=== PATIENT | female | born 1960 | race American Indian/Alaskan Native ===

== ENCOUNTER 2016-06-13 09:13 | Inpatient (IN) | payer MEDICARE ==
[~2016-06-13 09:13] MED LIST: CATHFLO 20 MG in NACL 0.9% 500 ML 500 ML EKOSDLUMEN SCH; HEPARIN/ 0.45% NACL-25,000 UNIT/500 ML 500 ML SHEATH SCH; NACL 0.9% 1000 ML 1,000 ML EKOSCLUMEN SCH; NACL 0.9% 1000 ML 1,000 ML SHEATH SCH
[2016-06-13 10:09] LABS: Basophils % (Auto) 0.7 % (0.0-1.8); Eosinophils % (Auto) 3.5 % (0.0-4.3); Hemoglobin 12.1 gm/dl (10.1-14.3); Mean Corpuscular HGB Conc 32 % (30-34); Mean Corpuscular Volume 80 fl (79-97); Platelet Count 254 K/mm3 (140-440); Red Blood Count 4.78 M/mm3 (3.65-5.03); Red Cell Distribution Width 15.8 % (13.2-15.2)
[2016-06-13 10:12] LABS: Anion Gap 17 mmol/L; BUN/Creatinine Ratio 16.25; Blood Urea Nitrogen 13 mg/dL (7-17); Calcium 10.3 mg/dL (8.4-10.2); Carbon Dioxide 30 mmol/L (22-30); Chloride 99.9 mmol/L (98-107); Glucose 93 mg/dL (65-100); Potassium 3.7 mmol/L (3.6-5.0); Sodium 143 mmol/L (137-145)
[2016-06-13 10:13] LABS: Mean Corpuscular Hemoglobin 25 pg (28-32)
[2016-06-13] MEDS: NACL 0.9% 1000 ML 1,000 ML IV SCH (10:15)
[2016-06-13 10:17] LABS: INR 0.92 (0.87-1.13)
[2016-06-13] MEDS ORDERED: HEPARIN 10,000 UNITS/10 ML ONE ×2 (10:42→11:10)
[2016-06-13] MEDS ORDERED: HEPARIN/NS 5000 UNIT/500ML(CATH LAB) 1,000 ML IR ONE (10:42)
[2016-06-13] MEDS ORDERED: XYLOCAINE 1%/ EPI 1:100,000 INFILTRATI ONE (10:43)
[2016-06-13] MEDS ORDERED: ANCEF/STERILE WATER 2 GM/20 ML 20 ML IV ONE (10:43)
[2016-06-13] MEDS ORDERED: NORCO 5/325 PO PRN (10:46)
[2016-06-13] MEDS ORDERED: ZOFRAN IV PRN (10:46)
[2016-06-13] MEDS ORDERED: MORPHINE IV PRN ×2 (10:46)
[2016-06-13] MEDS ORDERED: WATER FOR INJ (PF) 10 ML ONE (10:59)
[2016-06-13] MEDS ORDERED: CATHFLO ONE ×2 (10:59→11:24)
[2016-06-13] MEDS: VERSED ONE ×2 (11:00→11:08)
[2016-06-13] MEDS: SUBLIMAZE ONE ×2 (11:00→11:08)
--- NOTE | 2016-06-13 11:43 | Consultation ---
History of Present Illness Consult date: 06/13/16 Requesting physician: ELSA JEREZ History of present illness: PULMONARY/CCM CONSULT NOTE (Full dictation # [id number]) Please see dictated notes for full details Medications and Allergies Allergies Allergy/AdvReac Type Severity Reaction Status Date / Time No Known Allergies Allergy Verified 01/24/15 14:51 Home Medications Medication Instructions Recorded Confirmed Last Taken Type Aspirin EC [Aspirin Enteric Coated 81 mg PO QDAY 01/25/15 06/13/16 06/13/16 History TAB] Atenolol/Chlorthalidone 1 each PO DAILY 01/25/15 06/13/16 06/13/16 History [Atenolol-Chlorthalidone 50-25] Clopidogrel [Plavix] 75 mg PO QDAY 01/25/15 06/13/16 06/13/16 History Ergocalciferol [Vitamin D2] 1 cap PO QWEEK 01/25/15 06/13/16 06/09/16 History Gabapentin [Neurontin] 300 mg PO Q8H 01/25/15 06/13/16 06/13/16 History Potassium Chloride 10 meq PO QDAY 01/25/15 06/13/16 06/13/16 History Active Meds: Active Medications Acetaminophen/Hydrocodone Bitart ([place] 5/325) 2 each PO Q6H PRN PRN Reason: Pain, Moderate (4-6) Aspirin (Halfprin Ec) 81 mg PO QDAY ANNA Atenolol (Tenormin) 50 mg PO QDAY ANNA Chlorthalidone (Thalitone) 25 mg PO QDAY ANNA Clopidogrel Bisulfate (Plavix) 75 mg PO QDAY ANNA Ergocalciferol (Vitamin D2) unit PO QWEEK ANNA Gabapentin (Neurontin) 300 mg PO Q8H ANNA Heparin Sodium/Sodium Chloride (Heparin/ 0.45% Nacl-25,000 Unit/500 Ml) 500 mls @ 10 mls/hr SHEATH DIRECT ANNA; 500 UNITS/HR PRN Reason: Protocol Sodium Chloride (Nacl 0.9) 1,000 mls @ 30 mls/hr IV DIRECT ANNA Last Admin: 06/13/16 10:15 Dose: 30 mls/hr Sodium Chloride (Nacl 0.9) 1,000 mls @ 30 mls/hr SHEATH DIRECT ANNA Sodium Chloride (Nacl 0.9) 1,000 mls @ 35 mls/hr EKOSCLUMEN DIRECT ANNA Alteplase, Recombinant 20 mg/ (Sodium Chloride) 500 mls @ 25 mls/hr EKOSDLUMEN DIRECT ANNA Morphine Sulfate (Morphine) 2 mg IV Q4H PRN PRN Reason: Pain, Moderate (4-6) Morphine Sulfate (Morphine) 4 mg IV Q4H PRN PRN Reason: Pain , Severe (7-10) Ondansetron HCl (Zofran) 4 mg IV Q8H PRN PRN Reason: Nausea And Vomiting Potassium Chloride (K-Dur) 10 meq PO QDAY ANNA Physical Examination Vital signs: Vital Signs Temp Pulse Resp BP Pulse Ox 98.4 F 82 18 147/87 100 06/13/16 09:35 06/13/16 09:35 06/13/16 09:35 06/13/16 09:35 06/13/16 09:35 Results - Laboratory Findings CBC and BMP: 06/14/16 10:18 06/13/16 09:45 PT/INR, D-dimer PT 12.3 Sec. (12.2-14.9) 06/13/16 09:45 INR 0.92 (0.87-1.13) 06/13/16 09:45 Abnormal lab findings: Abnormal Labs 06/13/16 06/13/16 06/13/16 09:45 09:45 09:45 MCH 25 L RDW 15.8 H Rooks % (Auto) 8.1 H Fibrinogen 522 H Calcium 10.3 H
--- NOTE | 2016-06-13 12:02 | Event Note ---
Date: 06/13/16 The patient was brought into the yard labor supervisor for acute ischemia and possible thrombolysis of her LLE. Arteriogram demonstrated occlusion of her common femoral artery and SFA. I was unable to cross the lesion so she will require a left femoral endarterectomy and Femoral artery to popliteal artery bypass. She will be admitted for pain control and cardiac clearance.
[2016-06-13] MEDS ORDERED: HEPARIN ONE (12:49)
[2016-06-13] MEDS ORDERED: NACL ONE (12:49)
--- NOTE | 2016-06-13 13:50 | Admit Criteria Form ---
Admission Criteria Documentation: AMBULATORY SURGERY EXCEPTION CRITERIA Ambulatory Surgery Exception Criteria ( Place 'X' for any and all applicable criteria): Surgery or procedure performed on ambulatory basis may require inpatient stay for[A] ANY ONE of the following(1)(2)(3)(4)(5)(6)(7)(8)(9): [] I. A preoperative situation, condition, or finding that warrants inpatient stay as indicated by ANY ONE of the following: [] a) Inpatient care needed because of severity of a disease or condition rather than the surgery (eg, severe cardiac or respiratory disease, severe infection) (15) (16 ) (17) (18) [] b) Emergent procedure (eg, angioplasty for acute ischemia)(19) [] c) Complex surgical approach or situation as indicated by ANY ONE of the following(3): [] i) Open approach needed instead of usual endoscopic, transcatheter, or other less invasive procedure [] ii) Difficult approach because of previous operation [] iii) Airway monitoring required after open neck procedures(20)(21) [] iv) Large mass requiring unusually extensive dissection [] v) Additional complicating feature requiring inpatient care (eg, drain management)(22(23): [] d) Major surgery in a pt with high anesthetic risk as indicated by ANY ONE of the following (2)(3)(5)(7)(8): [] i) ASA risk class III or higher (severe systemic disease impairing function) [D] [] ii) Advanced age (eg, older than 85 years)(14)(24) [] iii) Symptomatic heart failure(25) [] iv) Symptomatic asthma or COPD(8)(21) [] v) Morbid obesity with hemodynamic or respiratory problems(20)( 21)(26)(27) [] vi) Obstructive sleep apnea(20)(21) [] vii) Former premature infants who are younger than 60 weeks [] viii) High risk for severe postoperative abnormalities (eg, severe postoperative hypocalcemia after parathyroidectomy for severe hyperparathyroidism)(27)( 28) [] ix) Unstable angina(25) [] e) Drug-related risk requiring inpatient stay as indicated by ANY ONE of the following(5)(10)(14)(32)(33) [] i) Procedure requires discontinuing drugs or other therapy (eg , antiarrhythmic medication, antiseizure medication), which necessitates inpatient observation or treatment.(18)(31) [] ii) Major surgery and high risk drug use as indicated by ANY ONE of the following: [] 1) Active abuse of cocaine or similar drug [] 2) Monoamine oxidase inhibitor use [] 3) Other drug identified as posing risk [] f) Inadequate outpatient care situation as indicated by ANY ONE of the following(5)(10)(14)(32)(33) [] i) Patient lives remote from medical facility and procedure has urgent complication potential, and temporary nearby residence cannot be arranged [] ii) Patient will have postprocedure incapacitation and inadequate assistance at home, or alternative level of care cannot be arranged. [] iii) Patient will have long general anesthesia or procedure side effect resolution time, and competent person to stay with patient on first postoperative night at home or alternative level of care cannot be arranged. []iv) Other inadequate outpatient situation that cannot be handled by other means [X] II. A perioperative event, condition, or finding that warrants inpatient stay as indicated by ANY ONE of the following (1)(2)(3): [] a) Inadequate physiologic recovery: cardiovascular, respiratory, or hemodynamic status not normal or near preoperative baseline(18) [] b) Hemodynamic instability [] c) Patient not alert with near normal or baseline mental status [] d) Temperature not normal or as expected and not appropriate for outpatient treatment of condition [] e) Ambulatory or appropriate activity level status not yet achieved post procedure [E](34)(35)(36) [] f) Operative site not appropriate (eg, unexpected or excessive drainage or bleeding) [] g) Postoperative effects not resolved or adequately managed (eg, significant pain or vomiting not appropriate for outpatient or next level of care)(10)(12) [X] h) Complicating features requiring inpatient care as indicated by ANY ONE of the following(37): [] i) Severe complications of procedure (eg, bowel injury, airway compromise, vascular injury,severe hemorrhage) [] ii) Extensive (eg, dissection far beyond usual scope of procedure ) or prolonged (eg, 120 minutes beyond usual) surgery needed requiring inpatient postoperative care [] iii) Conversion to an open or complex procedure that requires inpatient care (eg, open vs laparoscopic cholecystectomy, abdominal vs vaginal hysterectomy)(38) [] iv) Comorbid condition or test result identified during or post procedure that requires inpatient care (7) [] v) Malignant hyperthermia(30) [X] vi) Other complicating feature requiring inpatient care(22)(23) Inpatient stay may be needed until ALL of the following are present (1)(2)(3)(4) (5)(6)(10)(14)(33)(40): []a) Physiologic recovery: cardiovascular, respiratory, and hemodynamic status normal or near preoperative baseline []b) Hemodynamic stability []c) Patient alert, with near normal or baseline mental status []d) Temperature appropriate: patient afebrile or temperature appropriate for outpt treatment of condition []e) Activity level appropriate: ambulatory or appropriate activity level post procedure []f) Operative site appropriate as indicated by ALL of the following: []i) Site dry or with expected drainage []ii) Any blood noted is as expected for procedure. []g) Postoperative effects resolved or managed as indicated by ALL of the following: []i) Pain management appropriate for outpatient (or next level of) care(10) []ii) Minimal nausea and vomiting: if present, successfully treated with oral medication(12) []iii) Headache, dizziness, or drowsiness (if present) are mild. []h) Voiding status acceptable as indicated by ANY ONE of the following: []i) Voiding spontaneously []ii) No voiding but instructions given for follow-up in 6 to 8 hours []iii) Urinary catheter in place, and instructions given for follow-up []i) Complicating features requiring inpatient care manageable at a lower level of care(37) []j) Comorbid conditions manageable at a lower level of care(37) The original [facility] content created by [facility] has been revised. The portions of the content which have been revised are identified through the use of italic text or in bold, and [facility] [employer] has neither reviewed nor approved the modified material. All other unmodified content is copyright [facility]. Please see references footnoted in the original [facility] edition 2016 Admission Criteria Met: Yes
[2016-06-13] MEDS: HEPARIN/ 0.45% NACL-25,000 UNIT/500 ML 500 ML IV SCH (14:01)
--- NOTE | 2016-06-13 15:10 | Operative Report ---
Operative Report Operative Report: Date of Procedure: 06/13/2016 Pre-operative Diagnosis: Acute Left Lower Extremity Ischemia Post-operative Diagnosis: Same Procedure(s): 1. Ultrasound-Guided Access Right Common Femoral Artery 2. Diagnostic Aortogram with Left Lower Excision of Any Runoff (No Previous Films for Comparison) 3. First Order Catheter Placement 4. Closure of Right Femoral Arteriotomy with Pro-[place] Closure Device 5. Radiologic Supervision with Interpretation Surgeon: Jose Angel Mckoy M.D. Director Speech Language: None Anesthesia: Local and IV sedation EBL: Minimal Counts: Correct Complications: None Condition: Stable Specimen: None Indication: The patient is a 55-year-old female with a history of peripheral vascular disease and previous intervention of bilateral lower extremities. She presented with complaints of rest pain and had an ultrasound that demonstrated occlusion of her external iliac and common femoral artery on the left with an KYLAH of 0.2. She was offered an arteriogram with possible intervention. She was given the risks, benefits, and alternative procedures and consented to the procedure. Angiographic Findings: The aortogram demonstrated the aorta is widely patent and bilateral common iliac arteries widely patent. The patient's left hypogastric artery and proximal external iliac artery were widely patent. The distal extremity leg artery and common femoral artery were occluded with reconstitution of flow in the profunda artery through collaterals. The proximal SFA reconstituted however there was a string sign and a previously placed stent in the SFA was occluded. There was reconstitution of flow and the above-knee popliteal artery. The patient had two-vessel runoff through peroneal and anterior tibial artery that appeared to be widely patent down to the foot. Description of Procedure: The patient was brought to the clinical lab specialist and laid in supine position. After she was adequately sedated her right groin was prepped and draped in normal sterile fashion. Ultrasound was used to identify the right common femoral artery and the overlying skin and soft tissue was anesthetized with lidocaine. A small stab incision was made and then a micropuncture needle was used to access the artery under ultrasound guidance. The needle was removed and a micropuncture sheath was placed and then the 035 Bentson wire was advanced into the aorta under fluoroscopy. A 5 [place] sheath was then placed by Seldinger technique. An Omni Flush catheter was advanced into the aorta and aortogram was performed. A Bentson wire was used with Omni Flush catheter advanced over the bifurcation and the left lower extremity arteriogram was performed with the previously described findings. I advanced a 035 Amplatz wire into the distal external iliac artery and placed a 7 x 45 cm destination sheath by Seldinger technique. At this point the patient was systemically heparinized with heparin IV. I made multiple attempts with various catheters and wires to traverse the occluded common femoral artery without success. At this point decided to abort the procedure with the plan to perform a femoral endarterectomy and possible femoropopliteal bypass. The sheath was pulled back into the right external iliac artery and the Rodriguez wire was advanced to the aorta. A Pro-glide closure device was then used to close the right femoral arteriotomy. The patient tolerated the procedure well. All sponge, needle, instrument counts were correct. The patient was taken to recovery in stable condition.
--- NOTE | 2016-06-13 16:16 | XRay Report ---
Chest 2 views: History: Preop. Findings: Normal cardiomediastinal silhouette. Trachea is midline. No consolidation, pneumothorax or pleural effusion. Impression: No acute cardiopulmonary findings.
[2016-06-13] MEDS: NEURONTIN PO SCH ×2 (20:01→21:56)
[2016-06-13 20:53] LABS: Hematocrit 34.7 % (30.3-42.9); Hemoglobin 11.1 gm/dl (10.1-14.3)
[2016-06-13 21:47] LABS: Partial Thromboplastin Time 103.8 Sec. (24.2-36.6)
[2016-06-14] MEDS: NEURONTIN PO SCH ×3 (06:30→20:24)
[2016-06-14] MEDS ORDERED: NON-FORMULARY (Potassium Chloride [Potassium Chloride] 10 MEQ) PO SCH (10:00)
[2016-06-14] MEDS ORDERED: ATENOLOL PO SCH (10:00)
[2016-06-14] MEDS ORDERED: CHLORTHALIDONE PO SCH (10:00)
[2016-06-14] MEDS: TENORMIN PO SCH (10:38)
[2016-06-14] MEDS: PLAVIX PO SCH (10:38)
[2016-06-14] MEDS: HALFPRIN EC PO SCH (10:38)
[2016-06-14] MEDS: K-DUR PO SCH (10:38)
[2016-06-14] MEDS: THALITONE PO SCH (10:38)
[2016-06-14 11:02] LABS: Basophils % (Auto) 0.4 % (0.0-1.8); Eosinophils % (Auto) 1.6 % (0.0-4.3); Hemoglobin 10.1 gm/dl (10.1-14.3); Mean Corpuscular HGB Conc 33 % (30-34); Mean Corpuscular Hemoglobin 26 pg (28-32); Mean Corpuscular Volume 80 fl (79-97); Platelet Count 224 K/mm3 (140-440); Red Blood Count 3.89 M/mm3 (3.65-5.03); Red Cell Distribution Width 15.8 % (13.2-15.2); White Blood Count 8.8 K/mm3 (4.5-11.0)
--- NOTE | 2016-06-14 11:04 | Event Note ---
Date: 06/14/16 full consult dictated thanks
[2016-06-14] MEDS: HEPARIN/ 0.45% NACL-25,000 UNIT/500 ML 500 ML IV SCH ×3 (11:26→23:10)
[2016-06-14] MEDS: NACL 0.9% 1000 ML 1,000 ML IV SCH (11:28)
--- NOTE | 2016-06-14 11:34 | Progress Note ---
Assessment and Plan - Patient Problems (1) Peripheral vascular disease of extremity Current Visit: Yes Status: Acute Plan to address problem: - tentative surgery im am - s/p stress testing and cardiac clearance - will follow post-op Subjective Date of service: 06/14/16 Principal diagnosis: Peripheral Vascular Disease; Acute Limb Ischemia Interval history: Seen and examined at bedside; 24 hr events reviewed; nursing and respiratory care staff consulted; no adverse overnight events reported to me; resting peacefully in bed; denies acute chest pains or increased SOB; left leg pain better Objective Vital Signs - 12hr 06/14/16 06/14/16 06/14/16 00:00 04:55 08:40 Temperature 98.4 F 98.1 F Pulse Rate 84 Pulse Rate [ Left Radial] Pulse Rate [ 95 H 83 Right Radial] Respiratory 18 18 Rate Blood Pressure 105/68 118/67 [Left Arm] O2 Sat by Pulse 98 99 Oximetry 06/14/16 09:00 Temperature 98.5 F Pulse Rate Pulse Rate [ 96 H Left Radial] Pulse Rate [ Right Radial] Respiratory 18 Rate Blood Pressure [Left Arm] O2 Sat by Pulse 97 Oximetry Constitutional: no acute distress Eyes: non-icteric ENT: oropharynx moist Neck: supple, no lymphadenopathy Effort: normal Ascultation: Bilateral: rhonchi (posterior bases) Cardiovascular: regular rate and rhythm Gastrointestinal: normoactive bowel sounds, soft Integumentary: normal Extremities: no cyanosis, no edema, no ischemia or petechiae Neurologic: normal mental status, non-focal exam (grossly), pupils equal and round Psychiatric: mood appropriate, affect normal CBC and BMP: 06/15/16 04:43 06/13/16 09:45 ABG, PT/INR, D-dimer: PT/INR, D-dimer PT 13.1 Sec. (12.2-14.9) 06/13/16 20:14 INR 1.00 (0.87-1.13) 06/13/16 20:14 Abnormal lab findings: Abnormal Labs 06/13/16 06/13/16 06/13/16 09:45 09:45 09:45 MCH 25 L RDW 15.8 H [place] % (Auto) 8.1 H APTT Fibrinogen 522 H Heparin Anti-Xa Level POC Glucose Calcium 10.3 H 06/13/16 06/13/16 06/14/16 20:14 20:15 07:44 MCH RDW [place] % (Auto) APTT 103.8 H* Fibrinogen Heparin Anti-Xa Level 0.72 H POC Glucose 106 H Calcium 06/14/16 10:18 MCH 26 L RDW 15.8 H [place] % (Auto) 9.1 H APTT Fibrinogen Heparin Anti-Xa Level POC Glucose Calcium Chest x-ray: image reviewed
--- NOTE | 2016-06-14 12:04 | Progress Note ---
Assessment and Plan 55-year-old female with left lower extremity severe peripheral vascular disease. Had a few bleeding episodes from right groin access site. Hematoma expressed. Pressure held. No further bleeding. Pressure dressing applied. Keep flat for 6 hours. Can restart heparin. H&H slight decrease. Discussed possible surgery with the patient for Thursday. Subjective Date of service: 06/14/16 Principal diagnosis: Ischemia of the LLE Interval history: Left lower extremity is viable. Patient denies rest pain, and has no gangrene or ulcers of the left lower extremity. She has extremely short distance claudication, but no rest pain. Patient had 3 bleeding episodes from her right groin after angiography. The first 2 episodes, nursing held pressure for 10 minutes and subsequently 15 minutes. I was not notified. Patient had an episode of bleeding at 3-4 am. Told nursing to stop heparin drip , hold firm pressure for 20 minutes, keep patient supine, and apply pressure dressing. She had no further bleeding. Evaluated patient this morning. Evaluated groin. No pseudoaneurysm. Hematoma noted which was expressed. Pressure held for 10 minutes. Pressure dressing applied with Elastikon and 4 x 4 with silk tape. Keep patient flat for the next 6 hours. Can restart heparin. H&H slight decrease. Objective - Constitutional Vitals: Vital Signs - 12hr 06/14/16 06/14/16 06/14/16 04:55 08:40 09:00 Temperature 98.1 F 98.5 F Pulse Rate 84 Pulse Rate [ 96 H Left Radial] Pulse Rate [ 83 Right Radial] Respiratory 18 18 Rate Blood Pressure 118/67 [Left Arm] O2 Sat by Pulse 99 97 Oximetry General appearance: Present: no acute distress - EENT Eyes: EOM intact ENT: hearing intact - Respiratory Respiratory effort: normal Extremities: normal temperature, normal color Extremity abnormal: pulses diminished (nonpalpable pedal pulses, small hematoma in right groin expressed, no arterial bleeding. Pressure dressing applied. ) - Gastrointestinal General gastrointestinal: Present: soft - Psychiatric Psychiatric: appropriate mood/affect, cooperative - Labs CBC & Chem 7: 06/14/16 10:18 06/13/16 09:45 Labs: Abnormal lab results 06/13/16 06/13/16 06/14/16 Range/Units 20:14 20:15 07:44 MCH (28-32) pg RDW (13.2-15.2) % [place] % (Auto) (0.0-7.3) % APTT 103.8 H* (24.2-36.6) Sec. Heparin Anti-Xa Level 0.72 H (0.3-0.7) U.I./ml POC Glucose 106 H (70-105) 06/14/16 Range/Units 10:18 MCH 26 L (28-32) pg RDW 15.8 H (13.2-15.2) % [place] % (Auto) 9.1 H (0.0-7.3) % APTT (24.2-36.6) Sec. Heparin Anti-Xa Level (0.3-0.7) U.I./ml POC Glucose (70-105)
--- NOTE | 2016-06-15 02:02 | Consultation ---
REFERRING PHYSICIAN: Dr. Jose Angel Mckoy. HISTORY OF PRESENT ILLNESS: The patient is a very pleasant 55-year-old -[place] female with history of peripheral arterial disease, diabetes, and neuropathy as well as hypertension. Patient is referred for preoperative consultation. Patient brought to the laborer airport maintenance for questionable acute ischemic left lower extremity. They were unable to fix this percutaneously. The patient is admitted for pain control and possible left femoral endarterectomy early next week. Cardiac evaluation is requested. Upon approach, patient denies any chest pain or shortness of breath; however, she is rather sedentary. No syncope or presyncope. No family history of premature heart disease. States she quit smoking 2 weeks ago. No fevers, chills, nausea, or vomiting. No abdominal pain. Denies any palpitations. PAST MEDICAL HISTORY: As aforementioned. MEDICATIONS: Inpatient and outpatient medications reviewed. REVIEW OF SYSTEMS: As per HPI. PHYSICAL EXAMINATION: VITAL SIGNS: Blood pressure is 118/67. Patient remains in sinus rhythm. O2 sat is 96% on room air. HEENT: Sclerae are anicteric. PERRL. NECK: Supple. No mass or JVD. CHEST: Clear to auscultation bilaterally. Good air movement. CARDIOVASCULAR: Irregular rhythm, S1, S2. ABDOMEN: Soft, nontender, nondistended. Normoactive bowel sounds in all 4 quadrants. No mass or bruits. EXTREMITIES: No cyanosis, clubbing, or edema. Good peripheral pulses. SKIN: Intact. No rashes. DATA: EKG is pending. CBC is unremarkable. PTT is elevated due to the presence of heparin. Creatinine is normal. ASSESSMENT: In summary, the patient is a pleasant 55-year-old -[place] female, who is sedentary and has multiple risk factors. We are consulted for preoperative evaluation. At this point, we will check an echocardiogram, nuclear stress test, have further plans contingent on these results. Thank you for this consultation. I will be happy to follow along with you. JOB# [id number] SBM/NTS
[2016-06-15] MEDS: NEURONTIN PO SCH ×2 (03:52→12:21)
[2016-06-15 05:30] LABS: Hematocrit 28.4 % (30.3-42.9); Hemoglobin 9.2 gm/dl (10.1-14.3)
[2016-06-15] MEDS ORDERED: LEXISCAN IV ONE ×2 (07:56→07:58)
--- NOTE | 2016-06-15 09:16 | Consultation ---
PULMONARY CRITICAL CARE EVALUATION CONSULTING PHYSICIAN: Dr. Mckoy. REASON FOR CONSULTATION: Evaluate for ICU admission. CHIEF COMPLAINT AND HISTORY OF PRESENT ILLNESS: The patient is a 55-year-old -[place] female with past medical history significant for peripheral vascular disease. She was brought into the [facility] lab[facility] for acute ischemia and possible thrombolysis of her left lower extremity. An arteriogram demonstrated occlusion of her common femoral artery and superficial femoral artery. They were unfortunately unable to cross the lesion and so, she was deemed to need left femoral endarterectomy and femoral artery to popliteal artery bypass. The result of this, the management and plan was changed and she was admitted rather for pain control and cardiac clearance. When I stopped by to see her, she was resting peacefully. Within the surgery, denied any chest pain, denied cough or expectoration. Denied any fevers or chills. Now with regards to tobacco use/abuse history, the patient does have a 10+ pack year tobacco smoking history. That really is as much of the history of this consult. PAST MEDICAL HISTORY: She has got hyperlipidemia. She has got peripheral vascular disease with intermittent claudication. History of cerebrovascular accident and history of hypertension. PAST SURGICAL HISTORY: She had a history of tubal ligation, I believe. MEDICATIONS: She was on at the time I stopped by to see her, according to the medication administration record included the following: P.r.n. Clay 5/325 two tablets p.o. q.6 hours p.r.n., aspirin 81 mg p.o. daily, atenolol 50 mg p.o. daily, Thalitone 25 mg p.o. daily, Plavix 75 mg p.o. daily, vitamin D2 50,000 units p.o. weekly, Neurontin 300 mg p.o. q.8 hours. She was on IV heparin drip, on p.r.n. morphine as well as Zofran 4 mg IV q.8 hours p.r.n. ALLERGIES: No known drug allergies. DIET: Well-built lady, denies acute weight loss or gain in the preceding few weeks to months. FAMILY AND SOCIAL HISTORY: Lives in the community. Ten plus pack year tobacco smoking history. Denies alcohol or illicit drug use or abuse. REVIEW OF SYSTEMS: No loss of consciousness. No new-onset seizures, no new onset focal weakness. No gross hematochezia or melena. No gross hematuria or dysuria. No hematemesis. No hemoptysis. No palpitations. Complete review of system was obtained. Pertinent positives and/or negatives as in body of history above, otherwise noncontributory. PHYSICAL EXAMINATION: VITAL SIGNS: At presentation, she was afebrile, temperature was 98.4 fahrenheit with a pulse of 82, respiratory rate of 18, blood pressure 147/87, oxygen sats 100%, inspired oxygen concentration was not recorded. HEENT, EYES, EARS, NOSE, AND THROAT: Pupils are equal, round about 3-4 mm, reactive to light. Extraocular muscle movements are intact, grossly no palpable lymph nodes in the supraclavicular or submandibular lymph node chains. LUNGS: Auscultation of both lung de paz was unremarkable. Lungs were clear to auscultation and percussion bilaterally. HEART: Heart sounds 1 and 2 are heard. They were regular in rate and rhythm at time of my evaluation. ABDOMEN: Soft. Bowel sounds are positive. Did not appear tender. EXTREMITIES: Without overt digital clubbing, cyanosis, or pedal edema. NEUROLOGIC: The exam was grossly nonfocal. LABORATORY DATA: From my review are as follows: White cell count 8000, hemoglobin 12.1, hematocrit 38.0, platelets 254,000. INR 0.92. Serum sodium 143, potassium 3.7, chloride 100, bicarbonate 30, BUN 13, creatinine 0.8, and glucose 93, calcium was up slightly at 10.3. Radiographic studies have been reviewed. I am actually waiting for to pull up. I have reviewed the radiologist's interpretation and we will follow up on the images, no acute cardiopulmonary process. ASSESSMENT AND PLAN: We have a 55-year-old middle-aged lady in with peripheral vascular disease requiring a involved procedure that was initially planned. She is no longer requiring ICU admission. The plan is to stabilize her and surgery will be done as soon as she was cleared by Cardiology, this could happen as early as Thursday. For this reason, I will go ahead and do this consult. We will observe her peripherally during the admission and postop, she will be coming to the Critical Care Unit. At that point, we will more be involved in her care. Tobacco cessation again be counseled. I will add GI prophylaxis, especially with her being on anticoagulation. Thank you very much for the consult per Dr. Mckoy. We will follow along and make further recommendations as picture progresses/becomes clearer. JOB# [id number] RAJ/FRANK
--- NOTE | 2016-06-15 09:48 | Echocardiography Report ---
Transthoracic Echocardiogram BP: 100/55 Conclusions *Global left ventricular wall motion and contractility are within normal limits. *The estimated ejection fraction is 55-60%. *Normal left ventricular diastolic filling is observed. *There is no pericardial effusion. Findings Left Ventricle: The left ventricular chamber size is normal. Global left ventricular wall motion and contractility are within normal limits. Global left ventricular systolic function is normal. The estimated ejection fraction is 55-60%. Normal left ventricular diastolic filling is observed. Left Atrium: The left atrium is normal in size with no visual thrombus identified. Right Ventricle: The right ventricular cavity size is normal. The right ventricular global systolic function is normal. Right Atrium: The right atrium appears normal. The interatrial septum appears normal. Aortic Valve: The aortic valve structure is normal. There is no evidence of aortic regurgitation. There is no evidence of aortic stenosis. Mitral Valve: The mitral valve leaflets appear normal. There is no evidence of mitral regurgitation. There is no evidence of mitral stenosis. Tricuspid Valve: The tricuspid valve leaflets are normal. There is no evidence of tricuspid valve regurgitation. There is no tricuspid stenosis. Pulmonic Valve: The pulmonic valve appears normal. There is trace pulmonic regurgitation. There is no pulmonic stenosis. Pericardium: There is no pericardial effusion. Aorta: There is no dilatation of the ascending aorta. There is no dilatation of the aortic arch. There is no dilatation of the descending thoracic aorta. There is no dilatation of the aortic root. Venous: The inferior vena cava appears normal in size. Measurements Chambers MM Name Value Normal Range Ao root diameter (MM) 2.2 cm (2 - 3.7) AV cusp separation (MM) 1.7 cm (1.5 - 2.6) Chambers 2D Name Value Normal Range IVSd (2D) 1.22 cm (0.6 - 1.1) LVPWd (2D) 1.24 cm (0.6 - 1.1) IVS:LVPW ratio (2D) 0.98 ratio - LVIDd (2D) 3.54 cm (3.7 - 5.6) LVIDs (2D) 2.12 cm (2 - 3.8) LV FS (Teichholz) (2D) 40.1 % - LV FS (cube) (2D) 40.1 % - EF Teichholz (2D) 71.7 % - LA dimension (AP) 2D 3.6 cm (1.9 - 4) Volumes/Mass Name Value Normal Range LA ESV SP 4CH (MOD) 33 ml - LA ESV SP 2CH (MOD) 37 ml - LA ESV BP (MOD) 36 ml - LA ESV BP (MOD) index 22.4 ml/m2 - LV EDV SP 4CH (MOD) 71 ml - LV ESV SP 4CH (MOD) 27 ml - EF SP 4CH (MOD) 62 % - LV EDV SP 2CH (MOD) 60 ml - LV ESV SP 2CH (MOD) 23 ml - EF SP 2CH (MOD) 62 % - LV EDV BP 65 ml - LV ESV BP 26 ml - BP EF (MOD) 60 % - Diastolic/Systolic Function Name Value Normal Range MV E-wave Vmax 0.73 m/sec - MV deceleration time 187 msec - MV A-wave Vmax 0.79 m/sec - MV E:A ratio 0.9 ratio - LV septal e' Vmax 0.08 m/sec - LV lateral e' Vmax 0.08 m/sec - LV E:e' septal ratio 9.7 ratio - LV E:e' lateral ratio 9.6 ratio - Aortic Valve Name Value Normal Range AV VTI 23.3 cm - AV mean gradient 3 mmHg - LVOT diameter 1.9 cm - LVOT VTI 21 cm - LVOT mean gradient 2 mmHg - SV LVOT 60 ml - VINCE (continuity VTI) 2.56 cm2 - Tricuspid Valve Name Value Normal Range TR Vmax 2 m/sec - TR peak gradient 16 mmHg - RAP 5 mmHg - RVSP 21 mmHg -
--- NOTE | 2016-06-15 11:18 | Treadmill Report ---
REFERRING PHYSICIAN: Jose Angel Mckoy MD PROTOCOL: The patient was brought to the stress lab in a postabsorptive state, given 10 mCi of technetium 99m at rest. The patient underwent rest imaging. The patient underwent Lexiscan stress test. At peak stress, the patient was given 26 mCi of technetium 99m. Shortly thereafter, the patient underwent stress imaging. Raw imaging reveals mild GI artifact. No significant motion artifact. SPECT imaging examined carefully in horizontal long axis, vertical long axis, and short axis views. Grossly, there is normal homogenous uptake of radioisotope in all reported segments. No evidence of significant fixed or reversible perfusion defect suggestive of prior infarction or ischemia. Gated wall motion revealed normal systolic thickening, calculated ejection fraction of 70%. No TID. CONCLUSIONS: 1. Normal myocardial perfusion scan without evidence of active ischemia or prior infarction. 2. Normal left ventricular systolic performance without evidence of transient ischemic dilatation or stress-induced segmental wall motion abnormalities. JOB# [id number] MARIA TERESA/FRANK
--- NOTE | 2016-06-15 12:16 | Event Note ---
Date: 06/15/16 Pt remains asx VSS, tele sr TTE and stress mpi reviewed Pt is at low risk from a cardiac perspective for contemplated vascular surgery May proceed Thanks
[2016-06-15] MEDS: HALFPRIN EC PO SCH (12:20)
[2016-06-15] MEDS: K-DUR PO SCH (12:20)
[2016-06-15] MEDS: TENORMIN PO SCH (12:21)
[2016-06-15] MEDS: THALITONE PO SCH (12:21)
[2016-06-15] MEDS: PLAVIX PO SCH (12:21)
--- NOTE | 2016-06-15 13:42 | Progress Note ---
Assessment and Plan 55-year-old female with left lower extremity severe peripheral vascular disease. Had a few bleeding episodes from right groin access site. Hematoma expressed. Pressure held. No further bleeding with pressure dressing. H&H declined. Discontinued heparin. Reports new left hip flexor weakness. Rest of the left leg has no weakness and patient can ambulate on legs to bathroom and back. Will get CT scan to assess for RP bleed. Could be weakness is chronic as it is uniquely affecting a single muscle group. Patient is a chronically poor historian. Discussed possible surgery with the patient for Thursday. Discussed with Dr. Blackmon for surgery on thursday. Subjective Date of service: 06/15/16 Principal diagnosis: Peripheral Vascular Disease; Acute Limb Ischemia Interval history: Left lower extremity is viable. Patient denies rest pain, and has no gangrene or ulcers of the left lower extremity. She has extremely short distance claudication, but no rest pain. No further bleeding from right groin which feels better. Pressure dressing still on. H&H declined to 9. Patient has unusual symptom of left hip weakness without paresthesias. No back pain. No left groin pain. Some discomfort at her right groin, which feels better. Weakness possible new since her procedure, per patient, but did not recognize it until she was ambulating yesterday when going to bathroom. She also has had a stroke in the patient but cannot recall which side or if there was residual deficits. Objective - Constitutional Vitals: Vital Signs - 12hr 06/15/16 06/15/16 06/15/16 04:00 08:00 08:39 Temperature 98.7 F 98 F Pulse Rate 79 Pulse Rate [ 80 Right Posterior Tibial] Pulse Rate [ 93 H Right Radial] Respiratory 20 18 Rate Blood Pressure 87/74 Blood Pressure 100/55 109/64 [Left Arm] O2 Sat by Pulse 97 98 Oximetry 06/15/16 06/15/16 06/15/16 09:25 09:26 09:27 Temperature Pulse Rate 114 H 116 H 112 H Pulse Rate [ Right Posterior Tibial] Pulse Rate [ Right Radial] Respiratory Rate Blood Pressure 126/82 133/82 135/87 Blood Pressure [Left Arm] O2 Sat by Pulse Oximetry 06/15/16 06/15/16 06/15/16 09:28 09:29 10:00 Temperature Pulse Rate 114 H 115 H 105 H Pulse Rate [ Right Posterior Tibial] Pulse Rate [ Right Radial] Respiratory Rate Blood Pressure 134/84 137/74 Blood Pressure [Left Arm] O2 Sat by Pulse Oximetry General appearance: Present: no acute distress - EENT Eyes: EOM intact ENT: hearing intact - Respiratory Respiratory effort: normal Extremities: normal temperature, normal color Extremity abnormal: pulses diminished (nonpalpable pedal pulses), other ( weakness of left hip flexors) - Psychiatric Psychiatric: appropriate mood/affect, cooperative - Labs CBC & Chem 7: 06/15/16 04:43 06/13/16 09:45 Labs: Abnormal lab results 06/14/16 06/15/16 06/15/16 Range/Units 19:09 04:43 04:43 Hgb 9.2 L (10.1-14.3) gm/dl Hct 28.4 L (30.3-42.9) % Heparin Anti-Xa Level 0.76 H 0.85 H (0.3-0.7) U.I./ml
--- NOTE | 2016-06-15 14:11 | Progress Note ---
Assessment and Plan - Patient Problems (1) Peripheral vascular disease of extremity Current Visit: Yes Status: Acute Plan to address problem: (1) Peripheral vascular disease of extremity Current Visit: Yes Status: Acute Plan to address problem: - tentative surgery im am of thursday06/16/16 - s/p stress testing and cardiac clearance - will follow post-op Subjective Date of service: 06/15/16 Principal diagnosis: Peripheral Vascular Disease; Acute Limb Ischemia Interval history: Seen and examined at bedside; 24 hr events reviewed; nursing and respiratory care staff consulted; no adverse overnight events reported to me; no new issues respiratory or otherwise Objective Vital Signs - 12hr 06/15/16 06/15/16 06/15/16 04:00 08:00 08:39 Temperature 98.7 F 98 F Pulse Rate 79 Pulse Rate [ 80 Right Posterior Tibial] Pulse Rate [ 93 H Right Radial] Respiratory 20 18 Rate Blood Pressure 87/74 Blood Pressure 100/55 109/64 [Left Arm] O2 Sat by Pulse 97 98 Oximetry 06/15/16 06/15/16 06/15/16 09:25 09:26 09:27 Temperature Pulse Rate 114 H 116 H 112 H Pulse Rate [ Right Posterior Tibial] Pulse Rate [ Right Radial] Respiratory Rate Blood Pressure 126/82 133/82 135/87 Blood Pressure [Left Arm] O2 Sat by Pulse Oximetry 06/15/16 06/15/16 06/15/16 09:28 09:29 10:00 Temperature Pulse Rate 114 H 115 H 105 H Pulse Rate [ Right Posterior Tibial] Pulse Rate [ Right Radial] Respiratory Rate Blood Pressure 134/84 137/74 Blood Pressure [Left Arm] O2 Sat by Pulse Oximetry Constitutional: no acute distress Eyes: non-icteric ENT: oropharynx moist Neck: supple, no lymphadenopathy Effort: normal Ascultation: Bilateral: clear Cardiovascular: regular rate and rhythm Gastrointestinal: normoactive bowel sounds, soft Integumentary: other (weak LLExt) Extremities: no cyanosis, no edema, no ischemia or petechiae Neurologic: normal mental status, non-focal exam, pupils equal and round Psychiatric: mood appropriate, affect normal CBC and BMP: 06/15/16 04:43 06/13/16 09:45 ABG, PT/INR, D-dimer: PT/INR, D-dimer PT 13.1 Sec. (12.2-14.9) 06/13/16 20:14 INR 1.00 (0.87-1.13) 06/13/16 20:14 Abnormal lab findings: Abnormal Labs 06/13/16 06/13/16 06/13/16 09:45 09:45 09:45 Hgb Hct MCH 25 L RDW 15.8 H [place] % (Auto) 8.1 H APTT Fibrinogen 522 H Heparin Anti-Xa Level POC Glucose Calcium 10.3 H 06/13/16 06/13/16 06/14/16 20:14 20:15 07:44 Hgb Hct MCH RDW [place] % (Auto) APTT 103.8 H* Fibrinogen Heparin Anti-Xa Level 0.72 H POC Glucose 106 H Calcium 06/14/16 06/14/16 06/15/16 10:18 19:09 04:43 Hgb 9.2 L Hct 28.4 L MCH 26 L RDW 15.8 H [place] % (Auto) 9.1 H APTT Fibrinogen Heparin Anti-Xa Level 0.76 H POC Glucose Calcium 06/15/16 04:43 Hgb Hct MCH RDW [place] % (Auto) APTT Fibrinogen Heparin Anti-Xa Level 0.85 H POC Glucose Calcium
--- NOTE | 2016-06-15 16:14 | Cat Scan Report ---
FINAL REPORT PROCEDURE: Unenhanced and enhanced CT scan abdomen and pelvis and CT angiography of the abdomen and pelvis TECHNIQUE: Computerized axial tomography of the abdomen and pelvis was performed without contrast followed by computerized axial tomography of the abdomen and pelvis after the IV injection of iodinated nonionic contrast. Additional MIPS reformatted images of the abdomen and pelvis were obtained for CT angiography of the abdomen and pelvis. HISTORY: left lower extremity weakness COMPARISON: No prior studies are available for comparison. FINDINGS: Lower Lung de paz: No sinificant abnormality seen. Upper Abdomen: Gallbladder is contracted and difficult to evaluate. No gross abnormality is seen. Calcified granulomas seen in the left lobe of the liver. The liver is otherwise unremarkable. The spleen is not enlarged. Subcentimeter nodules seen in the right adrenal gland difficult to characterize given its small size although suggests a small adrenal adenoma. Kidneys, Ureters and Urinary bladder: Kidneys ureters and urinary bladder are unremarkable. Retroperitoneum and vasculature: Atherosclerotic changes are seen in the abdominal aorta. No aneurysm is visualized. There is mild calcified and noncalcified plaquing seen throughout the abdominal aorta mildly narrowing the lumen. There is approximately 30 percent narrowing of the lumen of the abdominal aorta inferiorly. There is a left common iliac artery stent which shows minimal plaquing and only minimal narrowing. There is scattered disease seen in the left external iliac artery. There is occlusion of the distal left external iliac artery which also includes the left common iliac artery in visualized portion of the superficial femoral artery. There is a metallic stent visualized in the left superficial femoral artery, the visualized portion is occluded. Calcified and noncalcified plaquing seen in the right common iliac artery. In the mid right common iliac artery there is irregular plaquing narrowing the vessel approximately 40-50 percent... There is a metallic stent seen in the right external iliac artery. Just proximal to the stent the vessel is narrowed approximately 50-60 percent. There is mild plaquing seen within the stent. There is narrowing up to 40 percent noted within the stent.. Distal to the stent the vessel is narrowed approximately 60-70 percent with very irregular lumen. The vessel is patent. Common femoral artery shows high-grade stenosis, 70-80 percent. Superficial femoral artery stent visualized on the right which is patent although shows high-grade areas of stenosis with areas of near complete occlusion visualized. Mild stenosis visualized in the proximal right renal artery. Mild disease visualized in the left renal artery without significant focal plaquing or stenosis identified. There is a high-grade stenosis at the origin of the celiac trunk. Mild stenosis seen at the origin of the superior mesenteric artery. Inferior mesenteric artery is patent although high-grade stenosis is seen as its origin. Nonspecific subcentimeter lymph nodes are seen in the retroperitoneum. No pathologically enlarged lymph nodes are identified. Bowel: There are nonspecific strandy densities in thickening of the left pericolonic gutter. The adjacent colon is unremarkable with the exception of minimal diverticulosis.. No evidence of bowel obstruction or ascites. There is no free intraperitoneal gas. Normal-appearing appendix is seen in the right lower quadrant. Reproductive organs: Uterus is deviated to the left of midline and is lobulated and contains coarse calcifications. Fibroids are suspected. The largest fibroid suspected measures approximately 3.6 x 3.5 centimeters left side of the uterus in the region of the lower uterine segment. Uterus is otherwise unremarkable. No abnormal adnexal masses are seen. Other: No acute bony abnormalities are seen. IMPRESSION: Nonspecific inflammatory change seen left pericolonic gutter. Minimal diverticulosis seen in the left side of the colon without evidence of diverticulitis. Prior granulomatous disease. Small nodule left adrenal gland as described suggesting an adrenal adenoma. Uterus is deviated to the left of midline is lobulated. Uterine fibroids are suspected. Please see above comments. If further evaluation is clinically indicated pelvic ultrasound could be obtained. Diffuse atherosclerotic disease visualized throughout the abdomen and pelvis. Atherosclerotic changes seen in the abdominal aorta diffusely. There is approximately 30 percent stenosis of the distal abdominal aorta. There is some is seen There is high-grade stenosis at the origin of the celiac trunk and mild stenosis at the origin of the superior mesenteric artery. Mild stenosis visualized proximal end of the right renal artery. Mild disease visualized in the left renal artery without significant stenosis. Diffuse disease seen throughout the iliac arteries, the common femoral arteries and superficial femoral arteries bilaterally. See above for details. There is complete occlusion of the left external iliac artery, left common femoral artery and left superficial femoral artery as described. Near complete occlusion right superficial femoral artery. High-grade stenosis seen in the right common femoral artery. Metallic stents visualized in the left common iliac artery. There are also stents visualized in the right external iliac artery and right superficial femoral artery. Moderate high-grade areas of stenosis visualized in the right iliac system as described above. Please see above for greater detail.
[2016-06-16] MEDS: NEURONTIN PO SCH (04:00)
[2016-06-16] MEDS: NACL 0.9% 1000 ML 1,000 ML IV SCH ×4 (06:06→23:40)
[2016-06-16] MEDS ORDERED: MARCAINE-EPI 0.5%-1:200,000 INFILTRATI ONE (08:00)
[2016-06-16] MEDS ORDERED: NACL 0.9% 500 ML ONE (08:00)
[2016-06-16] MEDS ORDERED: NACL P/F VIAL (10 ML) ONE (08:00)
--- NOTE | 2016-06-16 08:43 | Vascular Lab Report ---
Lower extremity vein mapping Reason for exam: Preoperative evaluation for lower extremity bypass conduit. Comments: On the right, the greater saphenous vein is usable from the ankle to the knee however is somewhat small.. On the right, the greater saphenous vein is usable from the knee to the hip however if so a small. On the left, the greater saphenous vein is usable from the ankle to the knee. On the left, the greater saphenous vein is usable from the knee to the hip. Impression: On the right, the greater saphenous vein is usable from the ankle to the hip. On the left, the greater saphenous vein is usable from the ankle to the hip.
--- NOTE | 2016-06-16 08:52 | Vascular Lab Report ---
x MISCELLANEOUS VESSEL IDENTIFICATION: COMMENTS ON THE SCAN: The right common femoral artery was identified and under real-time ultrasound guidance was cannulated. IMPRESSION: Successful ultrasound guided arterial cannulation.
--- NOTE | 2016-06-16 09:07 | Anesthesia Day of Surgery ---
Anesthesia Day of Surgery - Day of Surgery Patient Examined: Yes Patient H&P Reviewed: Yes Patient is NPO: Yes Beta Blockers: Yes Cardiac Clearance: Yes
[2016-06-16] MEDS ORDERED: DILAUDID IV PRN ×2 (09:13→21:18)
--- NOTE | 2016-06-16 09:14 | Anesthesia Consultation ---
Anesthesia Consult and Med Hx Date of service: 06/16/16 - Airway Anesthetic Teeth Evaluation: Good ROM Head & Neck: Adequate Mental/Hyoid Distance: Adequate Mallampati Class: Class II Intubation Access Assessment: Probably Good - Pulmonary Exam CTA: Yes - Cardiac Exam Cardiac Exam: RRR - Pre-Operative Health Status ASA Pre-Surgery Classification: ASA3 Proposed Anesthetic Plan: General - Pre-Anesthesia Comment Pre-Anesthesia Comments: MPI study 06/15/16 normal study, ECHO normal. Oral Surgeon consult - Low cardiac risk. Patient took Plavix this morning. - Pulmonary Hx Smoking: Yes Hx Asthma: No COPD: No Hx Pneumonia: No Hx Sleep Apnea: No - Cardiovascular System Hx Hypertension: Yes (2008, high cholesterol) Hx Peripheral Vascular Disease: Yes (with intermittent claudication, ischemic pain) - Central Nervous System CVA: Yes (5yrs ago) Hx Psychiatric Problems: No - Endocrine Hx End Stage Renal Disease: No - Hematic Hx Anemia: Yes - Other Systems Hx Cancer: No - Additional Comments Anesthesia Medical History Comments: s/p thrombolysis of LLE under local.
[2016-06-16] MEDS ORDERED: PROVENTIL IH NR (09:15)
[2016-06-16] MEDS ORDERED: SUBLIMAZE ONE (09:37)
[2016-06-16] MEDS ORDERED: XYLOCAINE MPF 2% ONE (09:37)
[2016-06-16] MEDS ORDERED: ZEMURON IV ONE (09:37)
[2016-06-16] MEDS ORDERED: DIPRIVAN 10 MG/ML IV ONE (09:37)
[2016-06-16] MEDS ORDERED: QUELICIN ONE (09:37)
[2016-06-16] MEDS: TENORMIN PO SCH (09:45)
[2016-06-16] MEDS ORDERED: NACL 0.9% 500 ML 500 ML IV ONE ×5 (10:00→23:56)
[2016-06-16] MEDS ORDERED: REGLAN PO NR (10:00)
[2016-06-16] MEDS ORDERED: PEPCID PO NR (10:00)
[2016-06-16] MEDS ORDERED: VERSED IV NR (10:00)
[2016-06-16] MEDS ORDERED: NACL 0.9% 1000 ML 1,000 ML IV SCH ×2 (10:00→20:00)
[2016-06-16 10:55] LABS: INR 0.91 (0.87-1.13)
[2016-06-16] MEDS ORDERED: LACTATED RINGERS ONE (10:59)
[2016-06-16] MEDS ORDERED: ZOFRAN ONE (10:59)
[2016-06-16] MEDS ORDERED: ANCEF/STERILE WATER 2 GM/20 ML IV NR (11:00)
[2016-06-16] MEDS ORDERED: NACL 0.9% 100 ML ONE ×3 (11:16→17:33)
[2016-06-16] MEDS ORDERED: NEO SYNEPHRINE ONE ×3 (11:16→17:32)
[2016-06-16] MEDS ORDERED: NACL 0.9% IR ONE (11:37)
[2016-06-16] MEDS ORDERED: NACL 0.9% IV ONE (11:37)
[2016-06-16] MEDS ORDERED: OMNIPAQUE IV ONE (11:37)
[2016-06-16] MEDS ORDERED: HEPARIN 10,000 UNITS/10 ML 2,000 UNIT in NACL 0.9% 500 ML 500 ML IR ONE (11:37)
[2016-06-16] MEDS ORDERED: NACL 0.9% 1000 ML 1,000 ML ONE ×5 (12:01→16:53)
[2016-06-16] MEDS ORDERED: RIFADIN 600 MG in NACL 0.9% 50 ML IR ONE (14:31)
[2016-06-16] MEDS ORDERED: ePHEDrine SULFATE ONE (14:54)
[2016-06-16] MEDS ORDERED: HEPARIN 10,000 UNITS/10 ML ONE (15:36)
[2016-06-16] MEDS ORDERED: ANCEF ONE (15:54)
--- NOTE | 2016-06-16 16:16 | Event Note ---
Date: 06/16/16 11:00AM - attempted to round on pt. Pt off floor for vascular surgery. Will revisit later this evening. 4:15PM - attempted to round on pt again. Pt's daughter at bedside states pt is still off floor for vascular surgery. Liz SIMMONS NP / DR. Arian AVILA
[2016-06-16] MEDS ORDERED: NACL 0.9% 500 ML 500 ML IV NR ×2 (16:46→17:05)
[2016-06-16] MEDS ORDERED: SODIUM BICARBONATE IV ONE ×4 (17:30→21:17)
[2016-06-16] MEDS ORDERED: NACL 0.9% 500 ML 500 ML IV SCH (17:52)
[2016-06-16] MEDS ORDERED: CALCIUM CHLORIDE IV ONE ×2 (18:00→21:49)
[2016-06-16] MEDS ORDERED: DILAUDID ONE (18:13)
[2016-06-16] MEDS ORDERED: THROMBIN SPRAYKIT (BOVINE) TP ONE (18:18)
[2016-06-16] MEDS ORDERED: GELFOAM TP ONE (18:18)
[2016-06-16] MEDS ORDERED: PROAIR IH ONE (18:38)
[2016-06-16] MEDS ORDERED: VERSED ONE (18:41)
--- NOTE | 2016-06-16 18:51 | Post Operative Note ---
Date of procedure: 06/16/16 Pre-op diagnosis: PVD with Left Foot Rest Pain Post-op diagnosis: same Procedure: 1. Left Common Femoral and Distal External Iliac Endarterectomy 2. Left External Iliac Angioplasty and Stent with 7 x 10 cm and 7 x 5 cm Viabahn Stent Grafts and 7 x 40 Balloon 3. Left SFA Remote Endarterectomy 4. Left Femoral Artery to Popliteal Artery Bypass with In Situ Greater Saphenous Vein Graft 5. Radiologic Supervision with Interpretation Anesthesia: TANIA Surgeon: ELSA JEREZ President & Ceo: ALEJANDRA RUFFIN Estimated blood loss: other (2000 mL) Pathology: none (left common femoral and external iliac plaque) Specimen disposition: to lab Condition: stable Disposition: PACU
[2016-06-16] MEDS ORDERED: NARCAN 0.4 MG/1 ML IV PRN (19:01)
[2016-06-16] MEDS ORDERED: ZOFRAN IV PRN (19:01)
[2016-06-16] MEDS ORDERED: NORCO 5/325 PO PRN (19:01)
[2016-06-16 19:07] LABS: ISTAT K 3.5 (3.5-4.9)
[2016-06-16 19:07] LABS: ISTAT Base Excess -19; ISTAT HCO3 11.3; ISTAT PCO2 42.7 (35-45); ISTAT PH 7.031 (7.35-7.45); ISTAT PO2 475 (80-105); ISTAT SO2 100; ISTAT TCO2 13
[2016-06-16 19:07] LABS: ISTAT K 3.2 (3.5-4.9)
[2016-06-16 19:07] LABS: ISTAT K 3.5 (3.5-4.9)
[2016-06-16 19:07] LABS: ISTAT K 2.9 (3.5-4.9)
[2016-06-16] MEDS ORDERED: LOPRESSOR IV ONE ×3 (19:26→19:50)
--- NOTE | 2016-06-16 19:41 | Post Anesthesia Evaluation ---
- Post Anesthesia Evaluation Patient Participated: Yes Airway Patent: Yes Stable Respiratory Function: Yes Nausea/Vomiting: No Temp > 96.8F: Yes Pain Manageable: Yes Adequeate Hydration: Yes Anesthesia Complications: No Block Receding Appropriately: Not Applicable Patient on Ventilator: Yes
[2016-06-16] MEDS ORDERED: ARTIFICIAL TEARS OPHTH OINT OU PRN (19:45)
[2016-06-16] MEDS ORDERED: VASELINE LIP THERAPY TP PRN (19:45)
[2016-06-16 20:20] LABS: Basophils % (Auto) 0.1 % (0.0-1.8); Eosinophils % (Auto) 0.1 % (0.0-4.3); Hematocrit 34.9 % (30.3-42.9); Hemoglobin 11.5 gm/dl (10.1-14.3); Mean Corpuscular HGB Conc 33 % (30-34); Mean Corpuscular Hemoglobin 29 pg (28-32); Mean Corpuscular Volume 89 fl (79-97); Red Blood Count 3.94 M/mm3 (3.65-5.03); Red Cell Distribution Width 13.6 % (13.2-15.2); White Blood Count 15.8 K/mm3 (4.5-11.0)
[2016-06-16 20:24] LABS: ISTAT Base Excess -12; ISTAT HCO3 15.9; ISTAT PCO2 37.4 (35-45); ISTAT PH 7.236 (7.35-7.45); ISTAT PO2 139 (80-105); ISTAT SO2 99; ISTAT TCO2 17
--- NOTE | 2016-06-16 20:37 | XRay Report ---
FINAL REPORT EXAM: XR CHEST 1V AP HISTORY: ETT placement TECHNIQUE: Chest, PRIORS: None. FINDINGS: The tip of the endotracheal tube is in the proximal aspect of the right mainstem bronchus. This is associated with some airspace disease in volume loss involving the left lung. In the setting of right mainstem bronchus intubation, this likely reflects associated left lung atelectasis from diminished ventilation of the left lung. IMPRESSION: There is been intubation of the right mainstem bronchus. There is volume loss in airspace disease in the left lung which likely represent partial left lung atelectasis from the right mainstem bronchus intubation. Suggest pulling back tube and subsequent repeat radiograph.
[2016-06-16 21:00] LABS: BUN/Creatinine Ratio 12.85; Blood Urea Nitrogen 9 mg/dL (7-17); Calcium 6.1 mg/dL (8.4-10.2); Carbon Dioxide 17 mmol/L (22-30); Chloride 114.5 mmol/L (98-107); Glucose 188 mg/dL (65-100); Potassium 3.4 mmol/L (3.6-5.0); Sodium 145 mmol/L (137-145)
[2016-06-16] MEDS ORDERED: SODIUM BICARBONATE IV PRN (21:14)
[2016-06-16 21:24] LABS: Platelet Count 38 K/mm3 (140-440)
[2016-06-16 21:36] LABS: Anion Gap 17 mmol/L
[2016-06-16] MEDS ORDERED: SODIUM BICARBONATE IV SCH (21:45)
[2016-06-16] MEDS ORDERED: CALCIUM CHLORIDE 1,000 MG in NACL 0.9% 100 ML IV ONE (21:47)
[2016-06-16 22:00] LABS: ISTAT Base Excess -9; ISTAT HCO3 17.8; ISTAT PCO2 37.9 (35-45); ISTAT PO2 145 (80-105); ISTAT SO2 99; ISTAT TCO2 19
[2016-06-16] MEDS: ATIVAN IV PRN ×2 (22:34→23:55)
[2016-06-16] MEDS: ANCEF/NS 1 GM/50 ML 50 ML IV SCH (22:58)
[2016-06-16 23:08] LABS: ISTAT Base Excess -7; ISTAT PCO2 33.9 (35-45); ISTAT PH 7.356 (7.35-7.45); ISTAT PO2 152 (80-105); ISTAT SO2 99; ISTAT TCO2 20
[2016-06-17] MEDS: MORPHINE IV PRN ×4 (02:18→11:20)
[2016-06-17] MEDS: NEURONTIN PO SCH ×4 (03:22→21:15)
[2016-06-17] MEDS: ANCEF/NS 1 GM/50 ML 50 ML IV SCH (03:25)
[2016-06-17 05:34] LABS: Blood Urea Nitrogen 13 mg/dL (7-17); Calcium 7.6 mg/dL (8.4-10.2); Carbon Dioxide 16 mmol/L (22-30); Chloride 114.2 mmol/L (98-107); Glucose 221 mg/dL (65-100); Potassium 3.4 mmol/L (3.6-5.0); Sodium 150 mmol/L (137-145)
[2016-06-17 05:37] LABS: Anion Gap 23 mmol/L
[2016-06-17 05:59] LABS: ISTAT Base Excess -10; ISTAT HCO3 14.2; ISTAT PCO2 22.2 (35-45); ISTAT PH 7.414 (7.35-7.45); ISTAT PO2 154 (80-105); ISTAT SO2 99; ISTAT TCO2 15
--- NOTE | 2016-06-17 07:11 | Progress Note ---
Subjective Date of service: 06/17/16 Principal diagnosis: Peripheral Vascular Disease; Acute Limb Ischemia Interval history: Patient is s/p vascular surgery on LLE, POD 1. Patient still intubated and appears comfortable. Labs reviewed and appears to be improving. Continue current medical management. Objective - Constitutional Vitals: Vital Signs - 12hr 06/16/16 06/16/16 06/16/16 19:10 19:13 19:15 Temperature Pulse Rate 140 H 141 H 141 H Pulse Rate [ Right Radial] Respiratory 18 18 Rate Blood Pressure 110/67 110/67 108/69 O2 Sat by Pulse 100 100 100 Oximetry 06/16/16 06/16/16 06/16/16 19:25 19:30 19:35 Temperature Pulse Rate 138 H 138 H 135 H Pulse Rate [ Right Radial] Respiratory 18 Rate Blood Pressure 110/73 110/73 111/74 O2 Sat by Pulse 100 Oximetry 06/16/16 06/16/16 06/16/16 19:45 19:50 20:00 Temperature Pulse Rate 132 H 132 H 127 H Pulse Rate [ Right Radial] Respiratory 18 18 Rate Blood Pressure 104/64 110/71 125/80 O2 Sat by Pulse 100 100 Oximetry 06/16/16 06/16/16 06/16/16 20:15 20:29 20:30 Temperature Pulse Rate 129 H 124 H 124 H Pulse Rate [ Right Radial] Respiratory 19 18 Rate Blood Pressure 113/74 107/67 112/74 O2 Sat by Pulse 100 100 100 Oximetry 06/16/16 06/16/16 06/16/16 20:45 21:00 21:15 Temperature Pulse Rate 131 H 125 H 123 H Pulse Rate [ Right Radial] Respiratory 16 21 15 Rate Blood Pressure 129/82 116/74 128/80 O2 Sat by Pulse 100 100 100 Oximetry 06/16/16 06/16/16 06/16/16 21:30 21:45 22:00 Temperature Pulse Rate 128 H 124 H 116 H Pulse Rate [ Right Radial] Respiratory 18 16 18 Rate Blood Pressure 123/79 129/78 113/75 O2 Sat by Pulse 100 100 100 Oximetry 06/16/16 06/16/16 06/16/16 22:15 22:30 22:45 Temperature Pulse Rate 125 H 117 H 114 H Pulse Rate [ Right Radial] Respiratory 11 L 14 11 L Rate Blood Pressure 110/74 103/72 106/76 O2 Sat by Pulse 100 100 100 Oximetry 06/16/16 06/16/16 06/16/16 22:53 23:00 23:15 Temperature Pulse Rate 115 H 114 H 114 H Pulse Rate [ Right Radial] Respiratory 13 10 L Rate Blood Pressure 99/61 111/71 116/74 O2 Sat by Pulse 100 100 100 Oximetry 06/16/16 06/16/16 06/17/16 23:30 23:45 00:00 Temperature 97.7 F Pulse Rate 114 H 113 H Pulse Rate [ Right Radial] Respiratory 14 13 18 Rate Blood Pressure 118/75 O2 Sat by Pulse 100 100 100 Oximetry 06/17/16 06/17/16 06/17/16 01:00 02:00 03:00 Temperature Pulse Rate 126 H Pulse Rate [ 125 H 128 H Right Radial] Respiratory 17 20 21 Rate Blood Pressure 110/82 112/89 O2 Sat by Pulse 99 99 100 Oximetry 06/17/16 06/17/16 06/17/16 04:00 04:15 04:38 Temperature 97.4 F L 97.7 F Pulse Rate 123 H 128 H 122 H Pulse Rate [ 122 H Right Radial] Respiratory 17 26 H Rate Blood Pressure 106/80 106/80 O2 Sat by Pulse 100 100 Oximetry 06/17/16 06/17/16 06/17/16 04:40 04:48 04:54 Temperature 97.4 F L 97.4 F L Pulse Rate 123 H Pulse Rate [ Right Radial] Respiratory Rate Blood Pressure 124/82 O2 Sat by Pulse 100 Oximetry 06/17/16 05:00 Temperature Pulse Rate Pulse Rate [ 120 H Right Radial] Respiratory 18 Rate Blood Pressure 124/82 O2 Sat by Pulse 99 Oximetry - Labs CBC & Chem 7: 06/16/16 20:10 06/17/16 04:48 Labs: Abnormal lab results 06/13/16 06/16/16 06/16/16 Range/Units 09:45 08:55 08:55 WBC (4.5-11.0) K/mm3 POC Hgb (12-17) POC Hct (38-51) Plt Count (140-440) K/mm3 Lymph % (Auto) (13.4-35.0) % [place] % (Auto) (0.0-7.3) % Lymph # (1.2-5.4) K/mm3 [place] # (0.0-0.8) K/mm3 Seg Neutrophils % (40.0-70.0) % Seg Neutrophils # (1.8-7.7) K/mm3 APTT 20.0 L (24.2-36.6) Sec. POC ABG pH (7.35-7.45) POC ABG pCO2 (35-45) POC ABG pO2 (80-105) POC Potassium (3.5-4.9) POC Chloride (98-109) Sodium (137-145) mmol/L Potassium (3.6-5.0) mmol/L Chloride (98-107) mmol/L Carbon Dioxide (22-30) mmol/L POC BUN (8-26) mg/dl Glucose (65-100) mg/dL POC Glucose (70-105) Calcium (8.4-10.2) mg/dL Crossmatch See Detail See Detail 06/16/16 06/16/16 06/16/16 Range/Units 14:21 16:55 17:41 WBC (4.5-11.0) K/mm3 POC Hgb 5.8 L 8.8 L (12-17) POC Hct 17 L 26 L (38-51) Plt Count (140-440) K/mm3 Lymph % (Auto) (13.4-35.0) % [place] % (Auto) (0.0-7.3) % Lymph # (1.2-5.4) K/mm3 [place] # (0.0-0.8) K/mm3 Seg Neutrophils % (40.0-70.0) % Seg Neutrophils # (1.8-7.7) K/mm3 APTT (24.2-36.6) Sec. POC ABG pH 7.031 L (7.35-7.45) POC ABG pCO2 (35-45) POC ABG pO2 475 H (80-105) POC Potassium 2.9 L (3.5-4.9) POC Chloride 112 H (98-109) Sodium (137-145) mmol/L Potassium (3.6-5.0) mmol/L Chloride (98-107) mmol/L Carbon Dioxide (22-30) mmol/L POC BUN 7 L 7 L (8-26) mg/dl Glucose (65-100) mg/dL POC Glucose 249 H 203 H (70-105) Calcium (8.4-10.2) mg/dL Crossmatch 06/16/16 06/16/16 06/16/16 Range/Units 17:48 18:07 19:09 WBC (4.5-11.0) K/mm3 POC Hgb 6.5 L (12-17) POC Hct < 15 L 19 L (38-51) Plt Count (140-440) K/mm3 Lymph % (Auto) (13.4-35.0) % [place] % (Auto) (0.0-7.3) % Lymph # (1.2-5.4) K/mm3 [place] # (0.0-0.8) K/mm3 Seg Neutrophils % (40.0-70.0) % Seg Neutrophils # (1.8-7.7) K/mm3 APTT (24.2-36.6) Sec. POC ABG pH (7.35-7.45) POC ABG pCO2 (35-45) POC ABG pO2 (80-105) POC Potassium 3.2 L (3.5-4.9) POC Chloride 114 H 113 H (98-109) Sodium (137-145) mmol/L Potassium (3.6-5.0) mmol/L Chloride (98-107) mmol/L Carbon Dioxide (22-30) mmol/L POC BUN 7 L 7 L (8-26) mg/dl Glucose (65-100) mg/dL POC Glucose 291 H 263 H 231 H (70-105) Calcium (8.4-10.2) mg/dL Crossmatch 06/16/16 06/16/16 06/16/16 Range/Units 20:10 20:10 20:18 WBC 15.8 H (4.5-11.0) K/mm3 POC Hgb (12-17) POC Hct (38-51) Plt Count 38 L (140-440) K/mm3 Lymph % (Auto) 5.9 L (13.4-35.0) % [place] % (Auto) 9.3 H (0.0-7.3) % Lymph # 0.9 L (1.2-5.4) K/mm3 [place] # 1.5 H (0.0-0.8) K/mm3 Seg Neutrophils % 84.6 H (40.0-70.0) % Seg Neutrophils # 13.3 H (1.8-7.7) K/mm3 APTT (24.2-36.6) Sec. POC ABG pH 7.236 L (7.35-7.45) POC ABG pCO2 (35-45) POC ABG pO2 139 H (80-105) POC Potassium (3.5-4.9) POC Chloride (98-109) Sodium (137-145) mmol/L Potassium 3.4 L (3.6-5.0) mmol/L Chloride 114.5 H (98-107) mmol/L Carbon Dioxide 17 L D (22-30) mmol/L POC BUN (8-26) mg/dl Glucose 188 H (65-100) mg/dL POC Glucose (70-105) Calcium 6.1 L D (8.4-10.2) mg/dL Crossmatch 06/16/16 06/16/16 06/17/16 Range/Units 21:10 22:53 04:48 WBC (4.5-11.0) K/mm3 POC Hgb (12-17) POC Hct (38-51) Plt Count (140-440) K/mm3 Lymph % (Auto) (13.4-35.0) % [place] % (Auto) (0.0-7.3) % Lymph # (1.2-5.4) K/mm3 [place] # (0.0-0.8) K/mm3 Seg Neutrophils % (40.0-70.0) % Seg Neutrophils # (1.8-7.7) K/mm3 APTT (24.2-36.6) Sec. POC ABG pH 7.280 L (7.35-7.45) POC ABG pCO2 33.9 L (35-45) POC ABG pO2 145 H 152 H (80-105) POC Potassium (3.5-4.9) POC Chloride (98-109) Sodium 150 H (137-145) mmol/L Potassium 3.4 L (3.6-5.0) mmol/L Chloride 114.2 H (98-107) mmol/L Carbon Dioxide 16 L (22-30) mmol/L POC BUN (8-26) mg/dl Glucose 221 H (65-100) mg/dL POC Glucose (70-105) Calcium 7.6 L D (8.4-10.2) mg/dL Crossmatch 06/17/16 Range/Units 05:35 WBC (4.5-11.0) K/mm3 POC Hgb (12-17) POC Hct (38-51) Plt Count (140-440) K/mm3 Lymph % (Auto) (13.4-35.0) % [place] % (Auto) (0.0-7.3) % Lymph # (1.2-5.4) K/mm3 [place] # (0.0-0.8) K/mm3 Seg Neutrophils % (40.0-70.0) % Seg Neutrophils # (1.8-7.7) K/mm3 APTT (24.2-36.6) Sec. POC ABG pH (7.35-7.45) POC ABG pCO2 22.2 L (35-45) POC ABG pO2 154 H (80-105) POC Potassium (3.5-4.9) POC Chloride (98-109) Sodium (137-145) mmol/L Potassium (3.6-5.0) mmol/L Chloride (98-107) mmol/L Carbon Dioxide (22-30) mmol/L POC BUN (8-26) mg/dl Glucose (65-100) mg/dL POC Glucose (70-105) Calcium (8.4-10.2) mg/dL Crossmatch
[2016-06-17] MEDS: HALFPRIN EC PO SCH ×2 (08:20→10:00)
[2016-06-17] MEDS: K-DUR PO SCH ×2 (08:21→10:00)
[2016-06-17] MEDS: PLAVIX PO SCH ×2 (08:21→10:00)
[2016-06-17] MEDS: THALITONE PO SCH ×2 (08:21→10:00)
--- NOTE | 2016-06-17 08:27 | XRay Report ---
AP chest x-ray. Findings: Since prior study, the endotracheal tube has been retracted and is in good position with partial reexpansion of the left lung. There is persistent left lower lobe atelectasis and/or infiltrate. The right lung is clear. There are no other significant interval changes.
--- NOTE | 2016-06-17 09:00 | Progress Note ---
Assessment and Plan PVD s/p Left Common Femoral and Distal External Iliac Endarterectomy, Left External Iliac Angioplasty and Stent, Left SFA Remote Endarterectomy, Left Femoral Artery to Popliteal Artery Bypass yesterday. LLE pulses absent per doppler, LLE warm, viable, sensation and function intact. Vascular surgery at bedside. Acute respiratory failure. Intubated. Wean vent as tolerated per pulmonary. Sinus tachycardia HR 110s - 120s. Suspected to be physiologic 2/2 respiratory failure and/or pain. Continue telemetry. DM HTN Continue current medical management. Currently stable cardiac status. The patient has been seen in conjunction with Dr. Arian Blackmon who agrees with the assessment and plan of care. Subjective Date of service: 06/17/16 Principal diagnosis: Peripheral Vascular Disease; Acute Limb Ischemia Interval history: Pt intubated, off sedation, responding appropriately to commands. Denies pain or cardiac complaints. ST, HR in 115s, BPs WNL. RN states that nursing staff has been unable to obtain any LLE pulses since last PM. Doppler obtained and vascular surgery at bedside assessing pt. Objective Last Vital Signs Temp 97.4 F L 06/17/16 04:48 Pulse 120 H 06/17/16 05:00 Resp 18 06/17/16 05:00 BP 124/82 06/17/16 05:00 Pulse Ox 99 06/17/16 05:00 - Physical Examination General: No Apparent Distress HEENT: Positive: EOMI, Normocephaly, Mucus Membranes Moist Neck: Positive: neck supple, trachea midline Cardiac: Positive: Regular Rhythm, S1/S2, Tachycardia Lungs: Positive: Normal Exam, clear to auscultation, Normal Breath Sounds, Oxygen, Ventilated Respirations Neuro: Positive: Grossly Intact Abdomen: Positive: Unremarkable, Soft, Active Bowel Sounds. Negative: Organomegaly, Tender Skin: Positive: Clear. Negative: Rash Incision: Incision Site (LLE vascular surgical sites) Musculoskeletal: No Fluid Collection, No Pain, Normal Range of Motion Extremities: Present: upper extr. pulses, lower extr. pulses (RLE pulses present per doppler, LLE pulses absent per doppler). Absent: edema - Labs and Meds Coagulation 06/16/16 Range/Units 08:55 PT 12.2 (12.2-14.9) Sec. INR 0.91 (0.87-1.13) APTT 20.0 L (24.2-36.6) Sec. CBC 06/16/16 Range/Units 20:10 WBC 15.8 H (4.5-11.0) K/mm3 RBC 3.94 (3.65-5.03) M/mm3 Hgb 11.5 (10.1-14.3) gm/dl Hct 34.9 D (30.3-42.9) % Plt Count 38 L (140-440) K/mm3 Lymph # 0.9 L (1.2-5.4) K/mm3 [place] # 1.5 H (0.0-0.8) K/mm3 Eos # 0.0 (0.0-0.4) K/mm3 Baso # 0.0 (0.0-0.1) K/mm3 Comprehensive Metabolic Panel 06/16/16 06/17/16 Range/Units 20:10 04:48 Sodium 145 150 H (137-145) mmol/L Potassium 3.4 L 3.4 L (3.6-5.0) mmol/L Chloride 114.5 H 114.2 H (98-107) mmol/L Carbon Dioxide 17 L D 16 L (22-30) mmol/L BUN 9 13 (7-17) mg/dL Creatinine 0.7 1.0 (0.7-1.2) mg/dL Glucose 188 H 221 H (65-100) mg/dL Calcium 6.1 L D 7.6 L D (8.4-10.2) mg/dL - Imaging and Cardiology Nuclear stress test: report reviewed (06/15/2016: negative for ischemia) Echo: report reviewed (06/15/2016: ) - Telemetry EKG Rhythm: Sinus Rhythm - EKG Sinus rhythms and dysrhythmias: sinus tachycardia
[2016-06-17 09:38] LABS: Hematocrit 29.7 % (30.3-42.9); Hemoglobin 9.9 gm/dl (10.1-14.3); Mean Corpuscular HGB Conc 33 % (30-34); Mean Corpuscular Hemoglobin 29 pg (28-32); Mean Corpuscular Volume 87 fl (79-97); Platelet Count 145 K/mm3 (140-440); Red Blood Count 3.41 M/mm3 (3.65-5.03)
[2016-06-17 09:40] LABS: White Blood Count 20.3 K/mm3 (4.5-11.0)
[2016-06-17] MEDS: TENORMIN PO SCH (10:00)
[2016-06-17 10:22] LABS: Anisocytosis 1+; Basophils % (Manual) 0 % (0.0-1.8); Blastocytes % (Manual) 0 %; Eosinophils % (Manual) 0 % (0.0-4.3); Helmet Cells Rare; Ovalocytes 1+; Poikilocytosis 1+; Polychromasia 1+; Target Cells Rare
[2016-06-17 10:23] LABS: Diff Status Complete; Giant Platelets Rare
--- NOTE | 2016-06-17 10:50 | Progress Note ---
Subjective Date of service: 06/17/16 Principal diagnosis: Peripheral Vascular Disease; Acute Limb Ischemia Interval history: 1st POD after right femoral-popleteal bypass Patient is in the unit, awake, still intubated. Appears to be oriented, indicates that wants to be extubated. Vital signs are stable. Being consulted by resawyer for possible extubation. No anesthesia complications. Objective - Constitutional Vitals: Vital Signs - 12hr 06/16/16 06/16/16 06/16/16 22:53 23:00 23:15 Temperature Pulse Rate 115 H 114 H 114 H Pulse Rate [ Right Radial] Respiratory 13 10 L Rate Blood Pressure 99/61 111/71 116/74 O2 Sat by Pulse 100 100 100 Oximetry 06/16/16 06/16/16 06/17/16 23:30 23:45 00:00 Temperature 97.7 F Pulse Rate 114 H 113 H Pulse Rate [ Right Radial] Respiratory 14 13 18 Rate Blood Pressure 118/75 O2 Sat by Pulse 100 100 100 Oximetry 06/17/16 06/17/16 06/17/16 01:00 02:00 03:00 Temperature Pulse Rate 126 H Pulse Rate [ 125 H 128 H Right Radial] Respiratory 17 20 21 Rate Blood Pressure 110/82 112/89 O2 Sat by Pulse 99 99 100 Oximetry 06/17/16 06/17/16 06/17/16 04:00 04:15 04:38 Temperature 97.4 F L 97.7 F Pulse Rate 123 H 128 H 122 H Pulse Rate [ 122 H Right Radial] Respiratory 17 26 H Rate Blood Pressure 106/80 106/80 O2 Sat by Pulse 100 100 Oximetry 06/17/16 06/17/16 06/17/16 04:40 04:48 04:54 Temperature 97.4 F L 97.4 F L Pulse Rate 123 H Pulse Rate [ Right Radial] Respiratory Rate Blood Pressure 124/82 O2 Sat by Pulse 100 Oximetry 06/17/16 06/17/16 05:00 08:00 Temperature 97.5 F L Pulse Rate Pulse Rate [ 120 H Right Radial] Respiratory 18 Rate Blood Pressure 124/82 O2 Sat by Pulse 99 Oximetry - Labs CBC & Chem 7: 06/17/16 09:22 06/17/16 04:48 Labs: Abnormal lab results 06/16/16 06/16/16 06/16/16 Range/Units 08:55 08:55 14:21 WBC (4.5-11.0) K/mm3 RBC (3.65-5.03) M/mm3 Hgb (10.1-14.3) gm/dl POC Hgb 5.8 L (12-17) Hct (30.3-42.9) % POC Hct 17 L (38-51) Plt Count (140-440) K/mm3 Lymph % (Auto) (13.4-35.0) % [place] % (Auto) (0.0-7.3) % Lymph # (1.2-5.4) K/mm3 [place] # (0.0-0.8) K/mm3 Seg Neutrophils % (40.0-70.0) % Seg Neuts % (Manual) (40.0-70.0) % Lymphocytes % (Manual) (13.4-35.0) % Monocytes % (Manual) (0.0-7.3) % Seg Neutrophils # (1.8-7.7) K/mm3 Seg Neutrophils # Man (1.8-7.7) K/mm3 Monocytes # (Manual) (0.0-0.8) K/mm3 APTT 20.0 L (24.2-36.6) Sec. POC ABG pH (7.35-7.45) POC ABG pCO2 (35-45) POC ABG pO2 (80-105) POC Potassium 2.9 L (3.5-4.9) POC Chloride (98-109) Sodium (137-145) mmol/L Potassium (3.6-5.0) mmol/L Chloride (98-107) mmol/L Carbon Dioxide (22-30) mmol/L POC BUN 7 L (8-26) mg/dl Glucose (65-100) mg/dL POC Glucose 249 H (70-105) Calcium (8.4-10.2) mg/dL Crossmatch See Detail 06/16/16 06/16/16 06/16/16 Range/Units 16:55 17:41 17:48 WBC (4.5-11.0) K/mm3 RBC (3.65-5.03) M/mm3 Hgb (10.1-14.3) gm/dl POC Hgb 8.8 L (12-17) Hct (30.3-42.9) % POC Hct 26 L < 15 L (38-51) Plt Count (140-440) K/mm3 Lymph % (Auto) (13.4-35.0) % [place] % (Auto) (0.0-7.3) % Lymph # (1.2-5.4) K/mm3 [place] # (0.0-0.8) K/mm3 Seg Neutrophils % (40.0-70.0) % Seg Neuts % (Manual) (40.0-70.0) % Lymphocytes % (Manual) (13.4-35.0) % Monocytes % (Manual) (0.0-7.3) % Seg Neutrophils # (1.8-7.7) K/mm3 Seg Neutrophils # Man (1.8-7.7) K/mm3 Monocytes # (Manual) (0.0-0.8) K/mm3 APTT (24.2-36.6) Sec. POC ABG pH 7.031 L (7.35-7.45) POC ABG pCO2 (35-45) POC ABG pO2 475 H (80-105) POC Potassium 3.2 L (3.5-4.9) POC Chloride 112 H 114 H (98-109) Sodium (137-145) mmol/L Potassium (3.6-5.0) mmol/L Chloride (98-107) mmol/L Carbon Dioxide (22-30) mmol/L POC BUN 7 L 7 L (8-26) mg/dl Glucose (65-100) mg/dL POC Glucose 203 H 291 H (70-105) Calcium (8.4-10.2) mg/dL Crossmatch 06/16/16 06/16/16 06/16/16 Range/Units 18:07 19:09 20:10 WBC 15.8 H (4.5-11.0) K/mm3 RBC (3.65-5.03) M/mm3 Hgb (10.1-14.3) gm/dl POC Hgb 6.5 L (12-17) Hct (30.3-42.9) % POC Hct 19 L (38-51) Plt Count 38 L (140-440) K/mm3 Lymph % (Auto) 5.9 L (13.4-35.0) % [place] % (Auto) 9.3 H (0.0-7.3) % Lymph # 0.9 L (1.2-5.4) K/mm3 [place] # 1.5 H (0.0-0.8) K/mm3 Seg Neutrophils % 84.6 H (40.0-70.0) % Seg Neuts % (Manual) (40.0-70.0) % Lymphocytes % (Manual) (13.4-35.0) % Monocytes % (Manual) (0.0-7.3) % Seg Neutrophils # 13.3 H (1.8-7.7) K/mm3 Seg Neutrophils # Man (1.8-7.7) K/mm3 Monocytes # (Manual) (0.0-0.8) K/mm3 APTT (24.2-36.6) Sec. POC ABG pH (7.35-7.45) POC ABG pCO2 (35-45) POC ABG pO2 (80-105) POC Potassium (3.5-4.9) POC Chloride 113 H (98-109) Sodium (137-145) mmol/L Potassium (3.6-5.0) mmol/L Chloride (98-107) mmol/L Carbon Dioxide (22-30) mmol/L POC BUN 7 L (8-26) mg/dl Glucose (65-100) mg/dL POC Glucose 263 H 231 H (70-105) Calcium (8.4-10.2) mg/dL Crossmatch 06/16/16 06/16/16 06/16/16 Range/Units 20:10 20:18 21:10 WBC (4.5-11.0) K/mm3 RBC (3.65-5.03) M/mm3 Hgb (10.1-14.3) gm/dl POC Hgb (12-17) Hct (30.3-42.9) % POC Hct (38-51) Plt Count (140-440) K/mm3 Lymph % (Auto) (13.4-35.0) % [place] % (Auto) (0.0-7.3) % Lymph # (1.2-5.4) K/mm3 [place] # (0.0-0.8) K/mm3 Seg Neutrophils % (40.0-70.0) % Seg Neuts % (Manual) (40.0-70.0) % Lymphocytes % (Manual) (13.4-35.0) % Monocytes % (Manual) (0.0-7.3) % Seg Neutrophils # (1.8-7.7) K/mm3 Seg Neutrophils # Man (1.8-7.7) K/mm3 Monocytes # (Manual) (0.0-0.8) K/mm3 APTT (24.2-36.6) Sec. POC ABG pH 7.236 L 7.280 L (7.35-7.45) POC ABG pCO2 (35-45) POC ABG pO2 139 H 145 H (80-105) POC Potassium (3.5-4.9) POC Chloride (98-109) Sodium (137-145) mmol/L Potassium 3.4 L (3.6-5.0) mmol/L Chloride 114.5 H (98-107) mmol/L Carbon Dioxide 17 L D (22-30) mmol/L POC BUN (8-26) mg/dl Glucose 188 H (65-100) mg/dL POC Glucose (70-105) Calcium 6.1 L D (8.4-10.2) mg/dL Crossmatch 06/16/16 06/17/16 06/17/16 Range/Units 22:53 04:48 05:35 WBC (4.5-11.0) K/mm3 RBC (3.65-5.03) M/mm3 Hgb (10.1-14.3) gm/dl POC Hgb (12-17) Hct (30.3-42.9) % POC Hct (38-51) Plt Count (140-440) K/mm3 Lymph % (Auto) (13.4-35.0) % [place] % (Auto) (0.0-7.3) % Lymph # (1.2-5.4) K/mm3 [place] # (0.0-0.8) K/mm3 Seg Neutrophils % (40.0-70.0) % Seg Neuts % (Manual) (40.0-70.0) % Lymphocytes % (Manual) (13.4-35.0) % Monocytes % (Manual) (0.0-7.3) % Seg Neutrophils # (1.8-7.7) K/mm3 Seg Neutrophils # Man (1.8-7.7) K/mm3 Monocytes # (Manual) (0.0-0.8) K/mm3 APTT (24.2-36.6) Sec. POC ABG pH (7.35-7.45) POC ABG pCO2 33.9 L 22.2 L (35-45) POC ABG pO2 152 H 154 H (80-105) POC Potassium (3.5-4.9) POC Chloride (98-109) Sodium 150 H (137-145) mmol/L Potassium 3.4 L (3.6-5.0) mmol/L Chloride 114.2 H (98-107) mmol/L Carbon Dioxide 16 L (22-30) mmol/L POC BUN (8-26) mg/dl Glucose 221 H (65-100) mg/dL POC Glucose (70-105) Calcium 7.6 L D (8.4-10.2) mg/dL Crossmatch 06/17/16 Range/Units 09:22 WBC 20.3 H (4.5-11.0) K/mm3 RBC 3.41 L (3.65-5.03) M/mm3 Hgb 9.9 L (10.1-14.3) gm/dl POC Hgb (12-17) Hct 29.7 L (30.3-42.9) % POC Hct (38-51) Plt Count (140-440) K/mm3 Lymph % (Auto) (13.4-35.0) % [place] % (Auto) (0.0-7.3) % Lymph # (1.2-5.4) K/mm3 [place] # (0.0-0.8) K/mm3 Seg Neutrophils % (40.0-70.0) % Seg Neuts % (Manual) 81.0 H (40.0-70.0) % Lymphocytes % (Manual) 6.0 L (13.4-35.0) % Monocytes % (Manual) 12.0 H (0.0-7.3) % Seg Neutrophils # (1.8-7.7) K/mm3 Seg Neutrophils # Man 16.4 H (1.8-7.7) K/mm3 Monocytes # (Manual) 2.4 H (0.0-0.8) K/mm3 APTT (24.2-36.6) Sec. POC ABG pH (7.35-7.45) POC ABG pCO2 (35-45) POC ABG pO2 (80-105) POC Potassium (3.5-4.9) POC Chloride (98-109) Sodium (137-145) mmol/L Potassium (3.6-5.0) mmol/L Chloride (98-107) mmol/L Carbon Dioxide (22-30) mmol/L POC BUN (8-26) mg/dl Glucose (65-100) mg/dL POC Glucose (70-105) Calcium (8.4-10.2) mg/dL Crossmatch
--- NOTE | 2016-06-17 12:15 | Progress Note ---
Assessment and Plan - Patient Problems (1) Peripheral vascular disease of extremity Current Visit: Yes Status: Acute Plan to address problem: - tentative surgery im am of thursday06/16/16 - s/p stress testing and cardiac clearance - will follow post-op - s/p surgery and out of OR on MVS - wean per protocol as tolerated - begin IV fentanyl drip re: agitation +/- pain - consider prn haldol (2) Acute respiratory failure Current Visit: Yes Status: Acute Plan to address problem: - continue bronchodilators and pulmonary toilet - wean per protocol as tolerated - begin IV fentanyl drip re: agitation +/- pain - consider prn haldol - will re-evaluate later today to titrate sedation/analgesia - hopefully extubate in am - will give alkalanized fluids re: metabolic acidosis to reduce ventilatory demands (3) Discharge planning issues Current Visit: Yes Status: Acute Plan to address problem: - hopefully extubate as soon as meets criteria if no repeat surgery planned ....she is critically ill on life sustaining interventions including MVS ..35' CCT Subjective Date of service: 06/17/16 Principal diagnosis: Peripheral Vascular Disease; Acute Limb Ischemia Interval history: Seen and examined at bedside; 24 hr events reviewed; nursing and respiratory care staff consulted; no adverse overnight events reported to me; agitated on MVS and amount of sedation needed interfering with weaning; no emesis or overt aspiration; no gross bleeding Objective Vital Signs - 12hr 06/17/16 06/17/16 06/17/16 01:00 02:00 03:00 Temperature Pulse Rate 126 H Pulse Rate [ 125 H 128 H Right Radial] Respiratory 17 20 21 Rate Blood Pressure 110/82 112/89 O2 Sat by Pulse 99 99 100 Oximetry 06/17/16 06/17/16 06/17/16 04:00 04:15 04:38 Temperature 97.4 F L 97.7 F Pulse Rate 123 H 128 H 122 H Pulse Rate [ 122 H Right Radial] Respiratory 17 26 H Rate Blood Pressure 106/80 106/80 O2 Sat by Pulse 100 100 Oximetry 06/17/16 06/17/16 06/17/16 04:40 04:48 04:54 Temperature 97.4 F L 97.4 F L Pulse Rate 123 H Pulse Rate [ Right Radial] Respiratory Rate Blood Pressure 124/82 O2 Sat by Pulse 100 Oximetry 06/17/16 06/17/16 06/17/16 05:00 08:00 10:53 Temperature 97.5 F L Pulse Rate 117 H Pulse Rate [ 120 H Right Radial] Respiratory 18 Rate Blood Pressure 124/82 115/76 O2 Sat by Pulse 99 100 100 Oximetry Constitutional: no acute distress Eyes: non-icteric ENT: oropharynx moist Neck: supple, no lymphadenopathy Effort: normal Ascultation: Bilateral: clear Cardiovascular: regular rate and rhythm Gastrointestinal: normoactive bowel sounds, soft, non-tender, non-distended Integumentary: other (weak LLExt) Extremities: no cyanosis, no edema, no ischemia or petechiae Neurologic: normal mental status, non-focal exam, pupils equal and round Psychiatric: mood appropriate, affect normal CBC and BMP: 06/17/16 09:22 06/17/16 04:48 ABG, PT/INR, D-dimer: ABG POC ABG pH 7.414 (7.35-7.45) 06/17/16 05:35 POC ABG pCO2 22.2 (35-45) L 06/17/16 05:35 POC ABG pO2 154 (80-105) H 06/17/16 05:35 POC ABG HCO3 14.2 06/17/16 05:35 POC ABG Total CO2 15 06/17/16 05:35 POC ABG O2 Sat 99 06/17/16 05:35 PT/INR, D-dimer PT 12.2 Sec. (12.2-14.9) 06/16/16 08:55 INR 0.91 (0.87-1.13) 06/16/16 08:55 Abnormal lab findings: Abnormal Labs 06/13/16 06/13/16 06/13/16 09:45 09:45 09:45 WBC RBC Hgb POC Hgb Hct POC Hct MCH 25 L RDW 15.8 H Plt Count Lymph % (Auto) Saunders % (Auto) 8.1 H Lymph # Saunders # Seg Neutrophils % Seg Neuts % (Manual) Lymphocytes % (Manual) Monocytes % (Manual) Seg Neutrophils # Seg Neutrophils # Man Monocytes # (Manual) APTT Fibrinogen 522 H Heparin Anti-Xa Level POC ABG pH POC ABG pCO2 POC ABG pO2 POC Potassium POC Chloride Sodium Potassium Chloride Carbon Dioxide POC BUN Glucose POC Glucose Calcium 10.3 H Crossmatch 06/13/16 06/13/16 06/13/16 09:45 20:14 20:15 WBC RBC Hgb POC Hgb Hct POC Hct MCH RDW Plt Count Lymph % (Auto) Saunders % (Auto) Lymph # Saunders # Seg Neutrophils % Seg Neuts % (Manual) Lymphocytes % (Manual) Monocytes % (Manual) Seg Neutrophils # Seg Neutrophils # Man Monocytes # (Manual) APTT 103.8 H* Fibrinogen Heparin Anti-Xa Level 0.72 H POC ABG pH POC ABG pCO2 POC ABG pO2 POC Potassium POC Chloride Sodium Potassium Chloride Carbon Dioxide POC BUN Glucose POC Glucose Calcium Crossmatch See Detail 06/14/16 06/14/16 06/14/16 07:44 10:18 19:09 WBC RBC Hgb POC Hgb Hct POC Hct MCH 26 L RDW 15.8 H Plt Count Lymph % (Auto) Saunders % (Auto) 9.1 H Lymph # Saunders # Seg Neutrophils % Seg Neuts % (Manual) Lymphocytes % (Manual) Monocytes % (Manual) Seg Neutrophils # Seg Neutrophils # Man Monocytes # (Manual) APTT Fibrinogen Heparin Anti-Xa Level 0.76 H POC ABG pH POC ABG pCO2 POC ABG pO2 POC Potassium POC Chloride Sodium Potassium Chloride Carbon Dioxide POC BUN Glucose POC Glucose 106 H Calcium Crossmatch 06/15/16 06/15/16 06/15/16 04:43 04:43 22:49 WBC RBC Hgb 9.2 L POC Hgb Hct 28.4 L POC Hct MCH RDW Plt Count Lymph % (Auto) Saunders % (Auto) Lymph # Saunders # Seg Neutrophils % Seg Neuts % (Manual) Lymphocytes % (Manual) Monocytes % (Manual) Seg Neutrophils # Seg Neutrophils # Man Monocytes # (Manual) APTT Fibrinogen Heparin Anti-Xa Level 0.85 H POC ABG pH POC ABG pCO2 POC ABG pO2 POC Potassium POC Chloride Sodium Potassium Chloride Carbon Dioxide POC BUN Glucose POC Glucose 134 H Calcium Crossmatch 06/16/16 06/16/16 06/16/16 08:55 08:55 14:21 WBC RBC Hgb POC Hgb 5.8 L Hct POC Hct 17 L MCH RDW Plt Count Lymph % (Auto) Saunders % (Auto) Lymph # Saunders # Seg Neutrophils % Seg Neuts % (Manual) Lymphocytes % (Manual) Monocytes % (Manual) Seg Neutrophils # Seg Neutrophils # Man Monocytes # (Manual) APTT 20.0 L Fibrinogen Heparin Anti-Xa Level POC ABG pH POC ABG pCO2 POC ABG pO2 POC Potassium 2.9 L POC Chloride Sodium Potassium Chloride Carbon Dioxide POC BUN 7 L Glucose POC Glucose 249 H Calcium Crossmatch See Detail 06/16/16 06/16/16 06/16/16 16:55 17:41 17:48 WBC RBC Hgb POC Hgb 8.8 L Hct POC Hct 26 L < 15 L MCH RDW Plt Count Lymph % (Auto) Saunders % (Auto) Lymph # Saunders # Seg Neutrophils % Seg Neuts % (Manual) Lymphocytes % (Manual) Monocytes % (Manual) Seg Neutrophils # Seg Neutrophils # Man Monocytes # (Manual) APTT Fibrinogen Heparin Anti-Xa Level POC ABG pH 7.031 L POC ABG pCO2 POC ABG pO2 475 H POC Potassium 3.2 L POC Chloride 112 H 114 H Sodium Potassium Chloride Carbon Dioxide POC BUN 7 L 7 L Glucose POC Glucose 203 H 291 H Calcium Crossmatch 06/16/16 06/16/16 06/16/16 18:07 19:09 20:10 WBC 15.8 H RBC Hgb POC Hgb 6.5 L Hct POC Hct 19 L MCH RDW Plt Count 38 L Lymph % (Auto) 5.9 L Saunders % (Auto) 9.3 H Lymph # 0.9 L Saunders # 1.5 H Seg Neutrophils % 84.6 H Seg Neuts % (Manual) Lymphocytes % (Manual) Monocytes % (Manual) Seg Neutrophils # 13.3 H Seg Neutrophils # Man Monocytes # (Manual) APTT Fibrinogen Heparin Anti-Xa Level POC ABG pH POC ABG pCO2 POC ABG pO2 POC Potassium POC Chloride 113 H Sodium Potassium Chloride Carbon Dioxide POC BUN 7 L Glucose POC Glucose 263 H 231 H Calcium Crossmatch 06/16/16 06/16/16 06/16/16 20:10 20:18 21:10 WBC RBC Hgb POC Hgb Hct POC Hct MCH RDW Plt Count Lymph % (Auto) Saunders % (Auto) Lymph # Saunders # Seg Neutrophils % Seg Neuts % (Manual) Lymphocytes % (Manual) Monocytes % (Manual) Seg Neutrophils # Seg Neutrophils # Man Monocytes # (Manual) APTT Fibrinogen Heparin Anti-Xa Level POC ABG pH 7.236 L 7.280 L POC ABG pCO2 POC ABG pO2 139 H 145 H POC Potassium POC Chloride Sodium Potassium 3.4 L Chloride 114.5 H Carbon Dioxide 17 L D POC BUN Glucose 188 H POC Glucose Calcium 6.1 L D Crossmatch 06/16/16 06/17/16 06/17/16 22:53 04:48 05:35 WBC RBC Hgb POC Hgb Hct POC Hct MCH RDW Plt Count Lymph % (Auto) Saunders % (Auto) Lymph # Saunders # Seg Neutrophils % Seg Neuts % (Manual) Lymphocytes % (Manual) Monocytes % (Manual) Seg Neutrophils # Seg Neutrophils # Man Monocytes # (Manual) APTT Fibrinogen Heparin Anti-Xa Level POC ABG pH POC ABG pCO2 33.9 L 22.2 L POC ABG pO2 152 H 154 H POC Potassium POC Chloride Sodium 150 H Potassium 3.4 L Chloride 114.2 H Carbon Dioxide 16 L POC BUN Glucose 221 H POC Glucose Calcium 7.6 L D Crossmatch 06/17/16 09:22 WBC 20.3 H RBC 3.41 L Hgb 9.9 L POC Hgb Hct 29.7 L POC Hct MCH RDW Plt Count Lymph % (Auto) Saunders % (Auto) Lymph # Saunders # Seg Neutrophils % Seg Neuts % (Manual) 81.0 H Lymphocytes % (Manual) 6.0 L Monocytes % (Manual) 12.0 H Seg Neutrophils # Seg Neutrophils # Man 16.4 H Monocytes # (Manual) 2.4 H APTT Fibrinogen Heparin Anti-Xa Level POC ABG pH POC ABG pCO2 POC ABG pO2 POC Potassium POC Chloride Sodium Potassium Chloride Carbon Dioxide POC BUN Glucose POC Glucose Calcium Crossmatch Chest x-ray: image reviewed
[2016-06-17] MEDS ORDERED: D5W 1,000 ML IV SCH (13:00)
[2016-06-17] MEDS ORDERED: DIPRIVAN 10 MG/ML 100 ML IV ONE (13:31)
[2016-06-17] MEDS ORDERED: SODIUM BICARBONATE IV SCH (14:00)
[2016-06-17] MEDS ORDERED: D5W IV SCH (14:00)
[2016-06-17] MEDS: KCL 10MEQ/100ML 100 ML IV SCH ×2 (14:20→17:15)
[2016-06-17] MEDS: fentaNYL DRIP Premix 100 ML IV SCH (18:00)
[2016-06-17] MEDS: PEPCID IV SCH ×2 (18:45→21:29)
[2016-06-18] MEDS: fentaNYL DRIP Premix 100 ML IV SCH (03:15)
[2016-06-18 09:01] LABS: BUN/Creatinine Ratio 18.75; Blood Urea Nitrogen 15 mg/dL (7-17); Calcium 7.5 mg/dL (8.4-10.2); Carbon Dioxide 27 mmol/L (22-30); Chloride 106.8 mmol/L (98-107); Glucose 136 mg/dL (65-100); Potassium 3.1 mmol/L (3.6-5.0); Sodium 144 mmol/L (137-145)
--- NOTE | 2016-06-18 09:08 | Progress Note ---
Assessment and Plan PVD s/p Left Common Femoral and Distal External Iliac Endarterectomy, Left External Iliac Angioplasty and Stent, Left SFA Remote Endarterectomy, Left Femoral Artery to Popliteal Artery Bypass 06/16/2016. Acute respiratory failure. Intubated. Wean vent as tolerated per pulmonary. Sinus tachycardia HR 110s - 120s. Suspected to be physiologic 2/2 respiratory failure and/or pain. Continue telemetry. DM HTN Continue current medical management. Currently stable cardiac status. Will see PRN. The patient has been seen in conjunction with Dr. Arian Blackmon who agrees with the assessment and plan of care. Subjective Date of service: 06/18/16 Principal diagnosis: Peripheral Vascular Disease; Acute Limb Ischemia Interval history: Pt extubated this AM, no complaints. VSS, remains in ST, HR 110s. BPs WNL. Objective Last Vital Signs Temp 97.7 F 06/18/16 08:00 Pulse 108 H 06/18/16 08:15 Resp 12 06/18/16 08:15 BP 118/75 06/18/16 08:15 Pulse Ox 99 06/18/16 08:47 - Physical Examination General: Appears Well, No Apparent Distress HEENT: Positive: EOMI, Normocephaly, Mucus Membranes Moist Neck: Positive: neck supple, trachea midline Cardiac: Positive: Regular Rhythm, S1/S2, Tachycardia Lungs: Positive: Normal Exam, clear to auscultation, Normal Breath Sounds Neuro: Positive: Grossly Intact, Cranial Nerve 2-12 Intact Abdomen: Positive: Unremarkable, Soft, Active Bowel Sounds. Negative: Organomegaly, Tender Skin: Positive: Clear. Negative: Rash Incision: Incision Site (LLE vascular surgical sites) Musculoskeletal: No Fluid Collection, No Pain, Normal Range of Motion Extremities: Present: upper extr. pulses, lower extr. pulses (RLE pulses present per doppler, LLE pulses absent per doppler). Absent: edema - Labs and Meds CBC 06/17/16 Range/Units 09:22 WBC 20.3 H (4.5-11.0) K/mm3 RBC 3.41 L (3.65-5.03) M/mm3 Hgb 9.9 L (10.1-14.3) gm/dl Hct 29.7 L (30.3-42.9) % Plt Count 145 D (140-440) K/mm3 Comprehensive Metabolic Panel 06/18/16 Range/Units 08:25 Sodium 144 (137-145) mmol/L Potassium 3.1 L (3.6-5.0) mmol/L Chloride 106.8 (98-107) mmol/L BUN 15 (7-17) mg/dL Creatinine 0.8 (0.7-1.2) mg/dL Glucose 136 H (65-100) mg/dL Calcium 7.5 L (8.4-10.2) mg/dL - Imaging and Cardiology EKG: report reviewed, image reviewed Echo: report reviewed (06/15/2016: ) - Telemetry EKG Rhythm: Sinus Tachycardia - EKG Sinus rhythms and dysrhythmias: sinus tachycardia
[2016-06-18 09:16] LABS: ISTAT Base Excess 3; ISTAT HCO3 26.7; ISTAT PO2 131 (80-105); ISTAT SO2 99; ISTAT TCO2 28
[2016-06-18 09:17] LABS: Anion Gap 13 mmol/L
--- NOTE | 2016-06-18 09:20 | XRay Report ---
PORTABLE CHEST: INDICATION: Follow-up respiratory failure. COMPARISON: Yesterday. FINDINGS: Portable, frontal chest radiograph, 2:12 AM, 06/18/2016 again demonstrates limited inspiration with exaggerated cardiomediastinal silhouette and slight increased crowding/prominence of lung markings centrally. Gastric gaseous distention has resolved. Stable to slight worse left [id number] lung zone hazy opacification with obscured left hemidiaphragm, representing any combination of pleural effusion/consolidation/atelectasis. Stable aortic knob calcifications, EKG leads, ET tube and osseous structures. CONCLUSION: 1. Stable to slight radiographic worsening of left lower lung hazy opacification, as described. Patient remains intubated. 2. Gaseous gastric distention has resolved. Thank you for the opportunity to participate in this patient's care.
--- NOTE | 2016-06-18 09:44 | Progress Note ---
Assessment and Plan Pt s/p extensive revasculariztion to the left lower ext. She's presently tachy on the vent in the ICU. Unable to doppler signals in her left leg. Her bypass likely has thrombosed. Her leg is viable at present. Would not wilson her back to surgery now. Would allow her to recover, and if symptoms dictate then further intervention as needed. Subjective Date of service: 06/17/16 Principal diagnosis: Peripheral Vascular Disease; Acute Limb Ischemia Interval history: (Late entry , Pt was Eval'd at ~9am 06/17/16) Pt was awake on the vent. She denied pain to her Left leg. Objective - Constitutional Vitals: Vital Signs - 12hr 06/17/16 06/17/16 06/17/16 21:42 22:00 22:48 Temperature Pulse Rate 120 H 121 H 121 H Respiratory 12 12 16 Rate Blood Pressure 111/70 106/66 102/64 O2 Sat by Pulse 100 100 100 Oximetry 06/17/16 06/18/16 06/18/16 23:00 00:00 00:02 Temperature 99.2 F Pulse Rate 120 H 124 H Respiratory 12 14 Rate Blood Pressure 103/64 112/74 112/74 O2 Sat by Pulse 100 100 100 Oximetry 06/18/16 06/18/16 06/18/16 01:00 01:40 02:00 Temperature Pulse Rate 120 H 117 H 114 H Respiratory 12 12 12 Rate Blood Pressure 125/79 121/74 103/68 O2 Sat by Pulse 100 100 Oximetry 06/18/16 06/18/16 06/18/16 03:00 03:58 04:00 Temperature 98.5 F Pulse Rate 115 H 114 H 115 H Respiratory 12 12 12 Rate Blood Pressure 111/71 115/73 108/72 O2 Sat by Pulse 100 100 Oximetry 06/18/16 06/18/16 06/18/16 04:10 04:39 05:00 Temperature Pulse Rate 114 H 119 H 120 H Respiratory 13 14 Rate Blood Pressure 108/72 101/67 119/74 O2 Sat by Pulse 100 100 Oximetry 06/18/16 06/18/16 06/18/16 06:00 06:04 06:44 Temperature Pulse Rate 117 H 117 H 112 H Respiratory 10 L 11 L 10 L Rate Blood Pressure 109/73 109/73 113/74 O2 Sat by Pulse 100 100 100 Oximetry 06/18/16 06/18/16 06/18/16 07:00 07:56 08:00 Temperature 97.7 F Pulse Rate 108 H 111 H 115 H Respiratory 9 L 15 14 Rate Blood Pressure 118/75 122/79 119/80 O2 Sat by Pulse 100 100 Oximetry 06/18/16 06/18/16 06/18/16 08:15 08:47 09:00 Temperature Pulse Rate 108 H 112 H Respiratory 12 14 Rate Blood Pressure 118/75 128/76 O2 Sat by Pulse 99 99 100 Oximetry General appearance: Present: no acute distress - EENT Eyes: EOM intact ENT: hearing intact - Neck Neck: supple - Respiratory Respiratory effort: other (on Mechanical vent.) Extremities: normal temperature Extremity abnormal: pulses diminished (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 Pt's leg is viable and motor and sensory function are intact.), other (Incisions intact without erythema or active drainage.) - Neurologic Neurologic: no focal deficits - Psychiatric Psychiatric: appropriate mood/affect, cooperative - Labs CBC & Chem 7: 06/17/16 09:22 06/18/16 08:25 Labs: Abnormal lab results 06/16/16 06/17/16 06/18/16 Range/Units 08:55 09:22 07:26 WBC 20.3 H (4.5-11.0) K/mm3 RBC 3.41 L (3.65-5.03) M/mm3 Hgb 9.9 L (10.1-14.3) gm/dl Hct 29.7 L (30.3-42.9) % Seg Neuts % (Manual) 81.0 H (40.0-70.0) % Lymphocytes % (Manual) 6.0 L (13.4-35.0) % Monocytes % (Manual) 12.0 H (0.0-7.3) % Seg Neutrophils # Man 16.4 H (1.8-7.7) K/mm3 Monocytes # (Manual) 2.4 H (0.0-0.8) K/mm3 POC ABG pH (7.35-7.45) POC ABG pO2 (80-105) Potassium (3.6-5.0) mmol/L Glucose (65-100) mg/dL POC Glucose 141 H (70-105) Calcium (8.4-10.2) mg/dL Crossmatch See Detail 06/18/16 06/18/16 Range/Units 08:25 08:25 WBC (4.5-11.0) K/mm3 RBC (3.65-5.03) M/mm3 Hgb (10.1-14.3) gm/dl Hct (30.3-42.9) % Seg Neuts % (Manual) (40.0-70.0) % Lymphocytes % (Manual) (13.4-35.0) % Monocytes % (Manual) (0.0-7.3) % Seg Neutrophils # Man (1.8-7.7) K/mm3 Monocytes # (Manual) (0.0-0.8) K/mm3 POC ABG pH 7.490 H (7.35-7.45) POC ABG pO2 131 H (80-105) Potassium 3.1 L (3.6-5.0) mmol/L Glucose 136 H (65-100) mg/dL POC Glucose (70-105) Calcium 7.5 L (8.4-10.2) mg/dL Crossmatch
[2016-06-18] MEDS: MORPHINE IV PRN ×2 (10:00→15:30)
--- NOTE | 2016-06-18 11:05 | Progress Note ---
Assessment and Plan - Patient Problems (1) Peripheral vascular disease of extremity Current Visit: Yes Status: Acute Plan to address problem: - tentative surgery im am of thursday06/16/16 - s/p stress testing and cardiac clearance - will follow post-op - s/p surgery and out of OR on MVS - further intervention per vascular team (2) Acute respiratory failure Current Visit: Yes Status: Acute Plan to address problem: - continue bronchodilators and pulmonary toilet - stop alkalanized fluids - aspiration precautions (3) Discharge planning issues Current Visit: Yes Status: Acute Plan to address problem: - transfer out of ICU ok pulmonary-centeno but await vascular surgery / attending recommendations Subjective Date of service: 06/18/16 Principal diagnosis: Peripheral Vascular Disease; Acute Limb Ischemia Interval history: Seen and examined at bedside; 24 hr events reviewed; nursing and respiratory care staff consulted; no adverse overnight events reported to me; did very well on SBT and extubated; doing very well; denies acute chest pains or increased SOB Objective Vital Signs - 12hr 06/18/16 06/18/16 06/18/16 00:00 00:02 01:00 Temperature 99.2 F Pulse Rate 124 H 120 H Respiratory 14 12 Rate Blood Pressure 112/74 112/74 125/79 O2 Sat by Pulse 100 100 Oximetry 06/18/16 06/18/16 06/18/16 01:40 02:00 03:00 Temperature Pulse Rate 117 H 114 H 115 H Respiratory 12 12 12 Rate Blood Pressure 121/74 103/68 111/71 O2 Sat by Pulse 100 100 Oximetry 06/18/16 06/18/16 06/18/16 03:58 04:00 04:10 Temperature 98.5 F Pulse Rate 114 H 115 H 114 H Respiratory 12 12 13 Rate Blood Pressure 115/73 108/72 108/72 O2 Sat by Pulse 100 100 100 Oximetry 06/18/16 06/18/16 06/18/16 04:39 05:00 06:00 Temperature Pulse Rate 119 H 120 H 117 H Respiratory 14 10 L Rate Blood Pressure 101/67 119/74 109/73 O2 Sat by Pulse 100 100 Oximetry 06/18/16 06/18/16 06/18/16 06:04 06:44 07:00 Temperature Pulse Rate 117 H 112 H 108 H Respiratory 11 L 10 L 9 L Rate Blood Pressure 109/73 113/74 118/75 O2 Sat by Pulse 100 100 Oximetry 06/18/16 06/18/16 06/18/16 07:56 08:00 08:15 Temperature 97.7 F Pulse Rate 111 H 115 H 108 H Respiratory 15 14 12 Rate Blood Pressure 122/79 119/80 118/75 O2 Sat by Pulse 100 100 99 Oximetry 06/18/16 06/18/16 08:47 09:00 Temperature Pulse Rate 112 H Respiratory 14 Rate Blood Pressure 128/76 O2 Sat by Pulse 99 100 Oximetry Constitutional: no acute distress, alert Eyes: non-icteric ENT: oropharynx moist Neck: supple, no lymphadenopathy Effort: normal Ascultation: Bilateral: clear Cardiovascular: regular rate and rhythm Gastrointestinal: normoactive bowel sounds, soft, non-tender, non-distended Integumentary: other (weak LLExt) Extremities: no cyanosis, no edema, cool (left lower leg) Neurologic: normal mental status, non-focal exam, pupils equal and round, motor strength normal and Psychiatric: mood appropriate, affect normal CBC and BMP: 06/17/16 09:22 06/18/16 08:25 ABG, PT/INR, D-dimer: ABG POC ABG pH 7.490 (7.35-7.45) H 06/18/16 08:25 POC ABG pCO2 35.0 (35-45) 06/18/16 08:25 POC ABG pO2 131 (80-105) H 06/18/16 08:25 POC ABG HCO3 26.7 06/18/16 08:25 POC ABG Total CO2 28 06/18/16 08:25 POC ABG O2 Sat 99 06/18/16 08:25 PT/INR, D-dimer PT 12.2 Sec. (12.2-14.9) 06/16/16 08:55 INR 0.91 (0.87-1.13) 06/16/16 08:55 Abnormal lab findings: Abnormal Labs 06/13/16 06/13/16 06/13/16 09:45 09:45 09:45 WBC RBC Hgb POC Hgb Hct POC Hct MCH 25 L RDW 15.8 H Plt Count Lymph % (Auto) [place] % (Auto) 8.1 H Lymph # [place] # Seg Neutrophils % Seg Neuts % (Manual) Lymphocytes % (Manual) Monocytes % (Manual) Seg Neutrophils # Seg Neutrophils # Man Monocytes # (Manual) APTT Fibrinogen 522 H Heparin Anti-Xa Level POC ABG pH POC ABG pCO2 POC ABG pO2 POC Potassium POC Chloride Sodium Potassium Chloride Carbon Dioxide POC BUN Glucose POC Glucose Calcium 10.3 H Crossmatch 06/13/16 06/13/16 06/13/16 09:45 20:14 20:15 WBC RBC Hgb POC Hgb Hct POC Hct MCH RDW Plt Count Lymph % (Auto) [place] % (Auto) Lymph # [place] # Seg Neutrophils % Seg Neuts % (Manual) Lymphocytes % (Manual) Monocytes % (Manual) Seg Neutrophils # Seg Neutrophils # Man Monocytes # (Manual) APTT 103.8 H* Fibrinogen Heparin Anti-Xa Level 0.72 H POC ABG pH POC ABG pCO2 POC ABG pO2 POC Potassium POC Chloride Sodium Potassium Chloride Carbon Dioxide POC BUN Glucose POC Glucose Calcium Crossmatch See Detail 06/14/16 06/14/16 06/14/16 07:44 10:18 19:09 WBC RBC Hgb POC Hgb Hct POC Hct MCH 26 L RDW 15.8 H Plt Count Lymph % (Auto) [place] % (Auto) 9.1 H Lymph # [place] # Seg Neutrophils % Seg Neuts % (Manual) Lymphocytes % (Manual) Monocytes % (Manual) Seg Neutrophils # Seg Neutrophils # Man Monocytes # (Manual) APTT Fibrinogen Heparin Anti-Xa Level 0.76 H POC ABG pH POC ABG pCO2 POC ABG pO2 POC Potassium POC Chloride Sodium Potassium Chloride Carbon Dioxide POC BUN Glucose POC Glucose 106 H Calcium Crossmatch 06/15/16 06/15/16 06/15/16 04:43 04:43 22:49 WBC RBC Hgb 9.2 L POC Hgb Hct 28.4 L POC Hct MCH RDW Plt Count Lymph % (Auto) [place] % (Auto) Lymph # [place] # Seg Neutrophils % Seg Neuts % (Manual) Lymphocytes % (Manual) Monocytes % (Manual) Seg Neutrophils # Seg Neutrophils # Man Monocytes # (Manual) APTT Fibrinogen Heparin Anti-Xa Level 0.85 H POC ABG pH POC ABG pCO2 POC ABG pO2 POC Potassium POC Chloride Sodium Potassium Chloride Carbon Dioxide POC BUN Glucose POC Glucose 134 H Calcium Crossmatch 06/16/16 06/16/16 06/16/16 08:55 08:55 14:21 WBC RBC Hgb POC Hgb 5.8 L Hct POC Hct 17 L MCH RDW Plt Count Lymph % (Auto) [place] % (Auto) Lymph # [place] # Seg Neutrophils % Seg Neuts % (Manual) Lymphocytes % (Manual) Monocytes % (Manual) Seg Neutrophils # Seg Neutrophils # Man Monocytes # (Manual) APTT 20.0 L Fibrinogen Heparin Anti-Xa Level POC ABG pH POC ABG pCO2 POC ABG pO2 POC Potassium 2.9 L POC Chloride Sodium Potassium Chloride Carbon Dioxide POC BUN 7 L Glucose POC Glucose 249 H Calcium Crossmatch See Detail 06/16/16 06/16/16 06/16/16 16:55 17:41 17:48 WBC RBC Hgb POC Hgb 8.8 L Hct POC Hct 26 L < 15 L MCH RDW Plt Count Lymph % (Auto) [place] % (Auto) Lymph # [place] # Seg Neutrophils % Seg Neuts % (Manual) Lymphocytes % (Manual) Monocytes % (Manual) Seg Neutrophils # Seg Neutrophils # Man Monocytes # (Manual) APTT Fibrinogen Heparin Anti-Xa Level POC ABG pH 7.031 L POC ABG pCO2 POC ABG pO2 475 H POC Potassium 3.2 L POC Chloride 112 H 114 H Sodium Potassium Chloride Carbon Dioxide POC BUN 7 L 7 L Glucose POC Glucose 203 H 291 H Calcium Crossmatch 06/16/16 06/16/16 06/16/16 18:07 19:09 20:10 WBC 15.8 H RBC Hgb POC Hgb 6.5 L Hct POC Hct 19 L MCH RDW Plt Count 38 L Lymph % (Auto) 5.9 L [place] % (Auto) 9.3 H Lymph # 0.9 L [place] # 1.5 H Seg Neutrophils % 84.6 H Seg Neuts % (Manual) Lymphocytes % (Manual) Monocytes % (Manual) Seg Neutrophils # 13.3 H Seg Neutrophils # Man Monocytes # (Manual) APTT Fibrinogen Heparin Anti-Xa Level POC ABG pH POC ABG pCO2 POC ABG pO2 POC Potassium POC Chloride 113 H Sodium Potassium Chloride Carbon Dioxide POC BUN 7 L Glucose POC Glucose 263 H 231 H Calcium Crossmatch 06/16/16 06/16/16 06/16/16 20:10 20:18 21:10 WBC RBC Hgb POC Hgb Hct POC Hct MCH RDW Plt Count Lymph % (Auto) [place] % (Auto) Lymph # [place] # Seg Neutrophils % Seg Neuts % (Manual) Lymphocytes % (Manual) Monocytes % (Manual) Seg Neutrophils # Seg Neutrophils # Man Monocytes # (Manual) APTT Fibrinogen Heparin Anti-Xa Level POC ABG pH 7.236 L 7.280 L POC ABG pCO2 POC ABG pO2 139 H 145 H POC Potassium POC Chloride Sodium Potassium 3.4 L Chloride 114.5 H Carbon Dioxide 17 L D POC BUN Glucose 188 H POC Glucose Calcium 6.1 L D Crossmatch 06/16/16 06/17/16 06/17/16 22:53 04:48 05:35 WBC RBC Hgb POC Hgb Hct POC Hct MCH RDW Plt Count Lymph % (Auto) [place] % (Auto) Lymph # [place] # Seg Neutrophils % Seg Neuts % (Manual) Lymphocytes % (Manual) Monocytes % (Manual) Seg Neutrophils # Seg Neutrophils # Man Monocytes # (Manual) APTT Fibrinogen Heparin Anti-Xa Level POC ABG pH POC ABG pCO2 33.9 L 22.2 L POC ABG pO2 152 H 154 H POC Potassium POC Chloride Sodium 150 H Potassium 3.4 L Chloride 114.2 H Carbon Dioxide 16 L POC BUN Glucose 221 H POC Glucose Calcium 7.6 L D Crossmatch 06/17/16 06/18/16 06/18/16 09:22 07:26 08:25 WBC 20.3 H RBC 3.41 L Hgb 9.9 L POC Hgb Hct 29.7 L POC Hct MCH RDW Plt Count Lymph % (Auto) [place] % (Auto) Lymph # [place] # Seg Neutrophils % Seg Neuts % (Manual) 81.0 H Lymphocytes % (Manual) 6.0 L Monocytes % (Manual) 12.0 H Seg Neutrophils # Seg Neutrophils # Man 16.4 H Monocytes # (Manual) 2.4 H APTT Fibrinogen Heparin Anti-Xa Level POC ABG pH POC ABG pCO2 POC ABG pO2 POC Potassium POC Chloride Sodium Potassium 3.1 L Chloride Carbon Dioxide POC BUN Glucose 136 H POC Glucose 141 H Calcium 7.5 L Crossmatch 06/18/16 08:25 WBC RBC Hgb POC Hgb Hct POC Hct MCH RDW Plt Count Lymph % (Auto) [place] % (Auto) Lymph # [place] # Seg Neutrophils % Seg Neuts % (Manual) Lymphocytes % (Manual) Monocytes % (Manual) Seg Neutrophils # Seg Neutrophils # Man Monocytes # (Manual) APTT Fibrinogen Heparin Anti-Xa Level POC ABG pH 7.490 H POC ABG pCO2 POC ABG pO2 131 H POC Potassium POC Chloride Sodium Potassium Chloride Carbon Dioxide POC BUN Glucose POC Glucose Calcium Crossmatch
[2016-06-18] MEDS ORDERED: POTASSIUM CHLORIDE FEEDTUBE ONE ×2 (13:00→18:30)
[2016-06-18] MEDS: NEURONTIN PO SCH ×2 (15:44→18:19)
--- NOTE | 2016-06-18 16:57 | Progress Note ---
Assessment and Plan This patient is status post extensive procedure attempting to revascularize her left lower extremity. An arterial duplex was completed which suggested that the bypass had thrombosed. Despite this, her foot is viable, and she denies pain at rest. Do not recommend re-intervention at this point. She has since been extubated. She remains tachycardic, but her blood pressure is stable. Continue supportive care. Recommend continuing to monitor the patient, but okay to transfer out of the ICU from our standpoint when cleared medically. - Patient Problems (1) Atherosclerosis of [place] arteries of extremity with intermittent claudication Current Visit: Yes Status: Acute Subjective Date of service: 06/18/16 Principal diagnosis: Peripheral Vascular Disease; Acute Limb Ischemia Interval history: The patient is awake. She denies complaints at present. She complains of incisional discomfort with manipulation, but no discomfort in her left foot at rest. Objective - Constitutional Vitals: Vital Signs - 12hr 06/18/16 06/18/16 06/18/16 05:00 06:00 06:04 Temperature Pulse Rate 120 H 117 H 117 H Respiratory 14 10 L 11 L Rate Blood Pressure 119/74 109/73 109/73 O2 Sat by Pulse 100 100 Oximetry 06/18/16 06/18/16 06/18/16 06:44 07:00 07:56 Temperature Pulse Rate 112 H 108 H 111 H Respiratory 10 L 9 L 15 Rate Blood Pressure 113/74 118/75 122/79 O2 Sat by Pulse 100 100 Oximetry 06/18/16 06/18/16 06/18/16 08:00 08:15 08:47 Temperature 97.7 F Pulse Rate 115 H 108 H Respiratory 14 12 Rate Blood Pressure 119/80 118/75 O2 Sat by Pulse 100 99 99 Oximetry 06/18/16 06/18/16 06/18/16 09:00 09:32 10:00 Temperature Pulse Rate 112 H 109 H 109 H Respiratory 14 14 12 Rate Blood Pressure 128/76 121/74 126/75 O2 Sat by Pulse 100 100 Oximetry 06/18/16 06/18/16 06/18/16 11:00 12:00 12:24 Temperature 98.7 F Pulse Rate 108 H 115 H 120 H Respiratory 12 17 17 Rate Blood Pressure 119/73 103/82 103/82 O2 Sat by Pulse 100 100 Oximetry 06/18/16 06/18/16 06/18/16 13:00 13:06 14:00 Temperature Pulse Rate 123 H 123 H 125 H Respiratory 16 16 17 Rate Blood Pressure 117/83 117/83 125/84 O2 Sat by Pulse 100 100 100 Oximetry 06/18/16 06/18/16 06/18/16 14:36 15:00 15:52 Temperature Pulse Rate 121 H 125 H 117 H Respiratory 17 17 17 Rate Blood Pressure 119/76 127/65 126/72 O2 Sat by Pulse 100 100 100 Oximetry 06/18/16 16:00 Temperature Pulse Rate 119 H Respiratory 14 Rate Blood Pressure 129/74 O2 Sat by Pulse 98 Oximetry General appearance: Present: no acute distress - EENT Eyes: EOM intact ENT: hearing intact - Neck Neck: supple - Respiratory Respiratory effort: normal Extremities: normal temperature Extremity abnormal: pulses diminished, other (her groin incision is intact without erythema or drainage appreciated, her distal incision is bandaged) - Neurologic Neurologic: other (her motor and sensory function to the left leg appear to be intact) - Psychiatric Psychiatric: appropriate mood/affect, cooperative - Labs CBC & Chem 7: 06/17/16 09:22 06/18/16 08:25 Labs: Abnormal lab results 06/16/16 06/18/16 06/18/16 Range/Units 08:55 07:26 08:25 POC ABG pH (7.35-7.45) POC ABG pO2 (80-105) Potassium 3.1 L (3.6-5.0) mmol/L Glucose 136 H (65-100) mg/dL POC Glucose 141 H (70-105) Calcium 7.5 L (8.4-10.2) mg/dL Crossmatch See Detail 06/18/16 Range/Units 08:25 POC ABG pH 7.490 H (7.35-7.45) POC ABG pO2 131 H (80-105) Potassium (3.6-5.0) mmol/L Glucose (65-100) mg/dL POC Glucose (70-105) Calcium (8.4-10.2) mg/dL Crossmatch
[2016-06-18] MEDS: PLAVIX PO SCH (18:18)
[2016-06-18] MEDS: PEPCID PO SCH ×2 (18:19→22:15)
[2016-06-18] MEDS: HALFPRIN EC PO SCH (18:19)
[2016-06-18] MEDS: TENORMIN PO SCH (18:21)
[2016-06-18] MEDS ORDERED: DILAUDID PCA 6MG/30ML IV SCH (19:00)
[2016-06-18 19:47] LABS: Hemoglobin 6.5 gm/dl (10.1-14.3)
[2016-06-18 19:52] LABS: Hematocrit 19.3 % (30.3-42.9)
[2016-06-18] MEDS ORDERED: NACL 0.9% 1000 ML 1,000 ML IV SCH (20:00)
[2016-06-18] MEDS: K-DUR PO SCH (20:04)
[2016-06-18] MEDS: THALITONE PO SCH (20:05)
[2016-06-18] MEDS ORDERED: NACL 0.9% 500 ML 500 ML IV NR (20:12)
[2016-06-18 20:36] LABS: INR TNR (0.87-1.13)
[2016-06-18 20:37] LABS: Partial Thromboplastin Time TNR Sec. (24.2-36.6)
[2016-06-18 21:16] LABS: Basophils % (Auto) 0.3 % (0.0-1.8); Eosinophils % (Auto) 0.6 % (0.0-4.3); Hemoglobin 6.5 gm/dl (10.1-14.3); Mean Corpuscular HGB Conc 35 % (30-34); Mean Corpuscular Hemoglobin 30 pg (28-32); Mean Corpuscular Volume 87 fl (79-97); Platelet Count 131 K/mm3 (140-440); Red Blood Count 2.17 M/mm3 (3.65-5.03); Red Cell Distribution Width 14.1 % (13.2-15.2); White Blood Count 13.6 K/mm3 (4.5-11.0)
[2016-06-18 21:24] LABS: Hematocrit 18.8 % (30.3-42.9)
[2016-06-18 21:30] LABS: INR 1.08 (0.87-1.13)
[2016-06-18 21:31] LABS: Partial Thromboplastin Time 26.9 Sec. (24.2-36.6)
[2016-06-19] MEDS: HEPARIN/ 0.45% NACL-25,000 UNIT/500 ML 500 ML IV SCH ×2 (00:50→23:32)
[2016-06-19] MEDS: NEURONTIN PO SCH ×4 (05:42→22:12)
--- NOTE | 2016-06-19 08:08 | Vascular Lab Report ---
LEFT LOWER EXTREMITY ARTERIAL DUPLEX: REASON FOR EXAM: Peripheral arterial disease. COMMENTS ON THE LEFT: Monophasic waveforms are seen proximally. No flow he is seen distally. No flow is seen in the SFA, femoral popliteal bypass, posterior tibial or anterior tibial arteries. Significant scatter plaque identified throughout lower extremity. Findings are consistent with severely abnormal perfusion. Findings are inconsistent with the ability to heal distal wounds. IMPRESSION: LEFT:Occluded SFA, femoropopliteal bypass, posterior tibial, and anterior tibial artery..
[2016-06-19 08:40] LABS: Anion Gap 16 mmol/L; BUN/Creatinine Ratio 15.71; Blood Urea Nitrogen 11 mg/dL (7-17); Calcium 7.6 mg/dL (8.4-10.2); Carbon Dioxide 26 mmol/L (22-30); Chloride 106.1 mmol/L (98-107); Glucose 104 mg/dL (65-100); Magnesium 1.4 mg/dL (1.7-2.3); Potassium 3.5 mmol/L (3.6-5.0); Sodium 145 mmol/L (137-145)
--- NOTE | 2016-06-19 09:11 | XRay Report ---
AP CHEST: HISTORY: Follow-up respiratory failure. FINDINGS: The endotracheal tube has been removed since 06/18/16 exam at 0212 hours. Poor aeration of the left lower lobe is again noted and not significantly changed. It is unclear if this represents atelectasis or infiltrate. The left upper lobe and right lung are clear. Heart size remains within normal limits. IMPRESSION: The patient has been extubated. Atelectasis or infiltrate is present in the left lower lobe which is unchanged.
--- NOTE | 2016-06-19 11:16 | Operative Report ---
Operative Report Operative Report: Date of Procedure: 06/16/2016 Pre-operative Diagnosis: PVD with Left Foot Rest Pain Post-operative Diagnosis: Same Procedure(s): 1. Left Common Femoral and Distal External Iliac Endarterectomy 2. Left External Iliac Angioplasty and Stent with 7 x 10 cm and 7 x 5 cm Viabahn Stent Grafts and 7 x 40 Balloon 3. Left SFA Remote Endarterectomy 4. Left Femoral Artery to Popliteal Artery Bypass with In Situ Greater Saphenous Vein Graft 5. Radiologic Supervision with Interpretation Surgeon: Jose Angel Mckoy M.D. Web Merchant: Kiya Hernandez M.D. Anesthesia: Gen. endotracheal anesthesia EBL: 2 L Counts: Correct Complications: None Condition: Critical but stable Findings: Successful stenting of left external iliac artery and patent femoropopliteal bypass with distal signals. Specimen: Left femoral and external iliac plaque sent to pathology. Indication: The patient is a 55-year-old female with a history of peripheral vascular disease and previous endovascular intervention who presented with rest pain and KYLAH 0.2 and evidence of occlusive disease in her external iliac artery as well as the common femoral artery and superficial femoral artery. She is set up for revascularization. She was given the risk, benefits, and alternative procedures and consented to procedure. Description of Procedure: The patient was brought to the operating room and laid in supine position. After general endotracheal anesthesia was achieved she was prepped and draped in normal sterile fashion. A longitudinal incision was then made in the left groin and carried down to the common femoral artery as well as the bifurcation using sharp dissection. Palpation of the common femoral artery demonstrated the plaque extended into the mid external iliac artery. I was able to dissect the external iliac artery under the inguinal ligament and palpated a section it appeared to be free of plaque and controlled this with a vessel loop. I then dissected out the bifurcation and controlled the profunda as well as the proximal SFA with vessels. At this point I systemically heparinized the patient with heparin IV and then made an arteriotomy in the common femoral artery and carried this down to the proximal SFA. I used a [place]mont knife to free the plaque from the surrounding arterial wall and then used the LeMaitre measuring device to approximate the size of the plaque. We did a 2 mm device was adequate for remote endarterectomy. Placed device on the plaque and was able to pass it down under fluoroscopy to what appeared to be the area of reconstitution however when I transected the plaque was then opened to pull this back and realized that instead of the remote endarterectomy device going around the previously placed stents it dissected down onto the side of the stents. I then used the LeMaitre [place] device and tried to circumferentially free the stents. I then made a longitudinal incision on the medial aspect of the leg and dissected out the popliteal artery just above the knee and then made a small arteriotomy and attempted to pass the remote endarterectomy device over the plaque from the distal aspect however it again would not go around the stents and a I was able to pull portions of the plaque out distally as well as proximally however this point decided to perform a femoropopliteal bypass. I extended my common femoral arteriotomy up to the distal external iliac artery and tried to debulk as much plaque as possible however the plaque was extremely adherent to the artery. I was able to debulk the common femoral artery as well as perform a profundoplasty. I used a bovine pericardial patch and 6-0 Prolenes in running fashion to close the common femoral arteriotomy. I then used a micropuncture to access the patch in retrograde fashion and passed a Rodriguez wire up into the aorta under fluoroscopy. Arteriogram demonstrated near total occlusion of the entire external iliac artery. A bulldog with a 7 mm balloon and then placed a 7 x 10 cm Viabahn Stent Graft into the external iliac artery and again postdilated with a 7 mm balloon was oh was a patent artery with brisk flow into the common femoral artery. Identified the greater saphenous vein through the groin incision and ligated all side branches and then transected the vein at the saphenofemoral junction and oversewed the venotomy using a 4-0 Prolene in running fashion. I made a small arteriotomy in the patch and created a end to side anastomosis using a 6-0 Prolene in a running fashion. I then dissected the vein out through my distal incision and ligated distally and transected the vein and then passed the LeMaitre valvulotome proximally until all valves were lysed and there was arterial flow through the graft. Several branches were identified through the proximal incision and suture ligated. I then created end-to-side anastomosis between the distal vein graft and the popliteal artery using 2 6-0 Prolene in a running fashion. Prior to completing the anastomosis after last the distal artery as well as the vein graft and then completed the anastomosis allowed flow into the lower extremity which had an excellent pulse distal to the graft and Doppler signals at the ankle. After completing the anastomosis the patient had significant amount of bleeding from the proximal incision which was identified on the posterior wall of the external iliac artery. I made multiple attempts to suture the hole as well as pledgeted without success so I decided to re- access the graft with micropuncture and advanced a Rodriguez wire into the aorta under fluoroscopy. I placed an additional 7 x 5 cm Viabahn Stent Graft distal to the previous stent graft and across the area of extravasation however this did not stop the bleeding. I dissected circumferentially around this area as well as a stent graft and then placed a 2-0 silk around it and cinched it down so that the artery was now well approximated to the stent graft. At this time there was no evidence of active bleeding. Hemostasis within the proximal incision was achieved with a combination of FloSeal, thrombin soaked Gelfoam, clot, and Tisseel. Once adequate hemostasis had been achieved both wounds were copiously irrigated and then closed in 3 layers using a 3-0 Vicryl running fashion and the deep layers, 3-0 Vicryl running fashion and deep dermal layers, and a 4 Monocryl in running fashion subcuticular of the groin and samaria to reapproximate the skin in the thigh. The patient tolerated the procedure well. All sponge, needle, and instrument counts were correct. The patient was taken to the recovery area in critical but stable condition.
--- NOTE | 2016-06-19 12:19 | Progress Note ---
Assessment and Plan - Patient Problems (1) Peripheral vascular disease of extremity Current Visit: Yes Status: Acute Plan to address problem: - tentative surgery im am of thursday06/16/16 - s/p stress testing and cardiac clearance - will follow post-op - s/p surgery and out of OR on MVS - further intervention per vascular team (2) Acute respiratory failure Current Visit: Yes Status: Acute Plan to address problem: - continue bronchodilators and pulmonary toilet - stopped alkalanized fluids - continue aspiration precautions - continue supplemental oxygen to keep sats > 92% (3) Anemia Current Visit: Yes Status: Acute Plan to address problem: - no obvious bleeding site - on IV heparin so will have to watch closely - serial H&H - to receive PRBC's today (4) Discharge planning issues Current Visit: Yes Status: Acute Plan to address problem: - transfer out of ICU ok pulmonary-centeno but await vascular surgery / attending recommendations Subjective Date of service: 06/19/16 Principal diagnosis: Peripheral Vascular Disease; Acute Limb Ischemia Interval history: Seen and examined at bedside; 24 hr events reviewed; nursing and respiratory care staff consulted; no adverse overnight events reported to me; remains on 2L NC; 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 and denies any leg pain; left leg warm to touch; denies N/V/F/C Objective Vital Signs - 12hr 06/19/16 06/19/16 06/19/16 00:30 00:45 00:48 Temperature 98.9 F Pulse Rate 98 H 97 H 96 H Pulse Rate [ Left From Monitor] Respiratory 13 13 13 Rate Blood Pressure 137/76 138/84 138/84 O2 Sat by Pulse 98 100 100 Oximetry 06/19/16 06/19/16 06/19/16 01:00 01:03 01:15 Temperature 98 F Pulse Rate 95 H 94 H 102 H Pulse Rate [ Left From Monitor] Respiratory 13 14 13 Rate Blood Pressure 148/88 149/88 151/93 O2 Sat by Pulse 100 Oximetry 06/19/16 06/19/16 06/19/16 01:30 01:33 01:45 Temperature 98 F Pulse Rate 95 H 97 H 93 H Pulse Rate [ Left From Monitor] Respiratory 14 15 13 Rate Blood Pressure 155/84 155/84 149/83 O2 Sat by Pulse 100 99 100 Oximetry 06/19/16 06/19/16 06/19/16 02:00 02:03 02:15 Temperature 98 F Pulse Rate 97 H 95 H 95 H Pulse Rate [ Left From Monitor] Respiratory 12 14 13 Rate Blood Pressure 163/95 151/93 147/88 O2 Sat by Pulse 100 99 Oximetry 06/19/16 06/19/16 06/19/16 02:30 02:33 02:45 Temperature 98.3 F Pulse Rate 97 H 97 H 95 H Pulse Rate [ Left From Monitor] Respiratory 13 13 12 Rate Blood Pressure 150/84 151/84 151/87 O2 Sat by Pulse 100 100 98 Oximetry 06/19/16 06/19/16 06/19/16 02:55 03:00 03:02 Temperature Pulse Rate 93 H 96 H 96 H Pulse Rate [ Left From Monitor] Respiratory 11 L 12 12 Rate Blood Pressure 151/87 156/91 151/87 O2 Sat by Pulse 100 100 100 Oximetry 06/19/16 06/19/16 06/19/16 03:03 03:15 03:51 Temperature 98.3 F 98.8 F Pulse Rate 95 H 95 H Pulse Rate [ Left From Monitor] Respiratory 13 10 L Rate Blood Pressure 156/91 156/91 O2 Sat by Pulse 100 100 Oximetry 06/19/16 06/19/16 06/19/16 04:00 05:01 05:23 Temperature Pulse Rate 92 H 94 H 92 H Pulse Rate [ 98 H Left From Monitor] Respiratory 14 12 9 L Rate Blood Pressure 148/84 148/84 148/84 O2 Sat by Pulse 99 100 100 Oximetry 06/19/16 06/19/16 06/19/16 06:00 06:35 07:00 Temperature Pulse Rate 100 H 97 H 94 H Pulse Rate [ Left From Monitor] Respiratory 10 L 10 L 8 L Rate Blood Pressure 167/93 167/93 145/92 O2 Sat by Pulse 98 100 100 Oximetry 06/19/16 06/19/16 06/19/16 07:30 07:55 08:00 Temperature 98.0 F Pulse Rate 88 92 H Pulse Rate [ Left From Monitor] Respiratory 10 L 10 L Rate Blood Pressure 145/92 149/86 O2 Sat by Pulse 100 100 Oximetry 06/19/16 08:36 Temperature Pulse Rate Pulse Rate [ Left From Monitor] Respiratory Rate Blood Pressure O2 Sat by Pulse 100 Oximetry Constitutional: no acute distress, alert Eyes: non-icteric ENT: oropharynx moist Neck: supple, no lymphadenopathy Effort: normal Ascultation: Bilateral: clear, rhonchi (posterior bases) Cardiovascular: regular rate and rhythm Gastrointestinal: normoactive bowel sounds, soft, non-tender, non-distended Integumentary: other (weak LLExt) Extremities: no cyanosis, no edema, cool (left lower leg) Neurologic: normal mental status, non-focal exam, pupils equal and round, motor strength normal and Psychiatric: mood appropriate, affect normal CBC and BMP: 06/18/16 21:10 06/19/16 07:28 ABG, PT/INR, D-dimer: ABG POC ABG pH 7.490 (7.35-7.45) H 06/18/16 08:25 POC ABG pCO2 35.0 (35-45) 06/18/16 08:25 POC ABG pO2 131 (80-105) H 06/18/16 08:25 POC ABG HCO3 26.7 06/18/16 08:25 POC ABG Total CO2 28 06/18/16 08:25 POC ABG O2 Sat 99 06/18/16 08:25 PT/INR, D-dimer PT 13.9 Sec. (12.2-14.9) 06/18/16 21:10 INR 1.08 (0.87-1.13) 06/18/16 21:10 Abnormal lab findings: Abnormal Labs 06/13/16 06/13/16 06/13/16 09:45 09:45 09:45 WBC RBC Hgb POC Hgb Hct POC Hct MCH 25 L MCHC RDW 15.8 H Plt Count Lymph % (Auto) [place] % (Auto) 8.1 H Lymph # [place] # Seg Neutrophils % Seg Neuts % (Manual) Lymphocytes % (Manual) Monocytes % (Manual) Seg Neutrophils # Seg Neutrophils # Man Monocytes # (Manual) APTT Fibrinogen 522 H Heparin Anti-Xa Level POC ABG pH POC ABG pCO2 POC ABG pO2 POC Potassium POC Chloride Sodium Potassium Chloride Carbon Dioxide POC BUN Glucose POC Glucose Calcium 10.3 H Magnesium Crossmatch 06/13/16 06/13/16 06/13/16 09:45 20:14 20:15 WBC RBC Hgb POC Hgb Hct POC Hct MCH MCHC RDW Plt Count Lymph % (Auto) [place] % (Auto) Lymph # [place] # Seg Neutrophils % Seg Neuts % (Manual) Lymphocytes % (Manual) Monocytes % (Manual) Seg Neutrophils # Seg Neutrophils # Man Monocytes # (Manual) APTT 103.8 H* Fibrinogen Heparin Anti-Xa Level 0.72 H POC ABG pH POC ABG pCO2 POC ABG pO2 POC Potassium POC Chloride Sodium Potassium Chloride Carbon Dioxide POC BUN Glucose POC Glucose Calcium Magnesium Crossmatch See Detail 06/14/16 06/14/16 06/14/16 07:44 10:18 19:09 WBC RBC Hgb POC Hgb Hct POC Hct MCH 26 L MCHC RDW 15.8 H Plt Count Lymph % (Auto) [place] % (Auto) 9.1 H Lymph # [place] # Seg Neutrophils % Seg Neuts % (Manual) Lymphocytes % (Manual) Monocytes % (Manual) Seg Neutrophils # Seg Neutrophils # Man Monocytes # (Manual) APTT Fibrinogen Heparin Anti-Xa Level 0.76 H POC ABG pH POC ABG pCO2 POC ABG pO2 POC Potassium POC Chloride Sodium Potassium Chloride Carbon Dioxide POC BUN Glucose POC Glucose 106 H Calcium Magnesium Crossmatch 06/15/16 06/15/16 06/15/16 04:43 04:43 22:49 WBC RBC Hgb 9.2 L POC Hgb Hct 28.4 L POC Hct MCH MCHC RDW Plt Count Lymph % (Auto) [place] % (Auto) Lymph # [place] # Seg Neutrophils % Seg Neuts % (Manual) Lymphocytes % (Manual) Monocytes % (Manual) Seg Neutrophils # Seg Neutrophils # Man Monocytes # (Manual) APTT Fibrinogen Heparin Anti-Xa Level 0.85 H POC ABG pH POC ABG pCO2 POC ABG pO2 POC Potassium POC Chloride Sodium Potassium Chloride Carbon Dioxide POC BUN Glucose POC Glucose 134 H Calcium Magnesium Crossmatch 06/16/16 06/16/16 06/16/16 08:55 08:55 14:21 WBC RBC Hgb POC Hgb 5.8 L Hct POC Hct 17 L MCH MCHC RDW Plt Count Lymph % (Auto) [place] % (Auto) Lymph # [place] # Seg Neutrophils % Seg Neuts % (Manual) Lymphocytes % (Manual) Monocytes % (Manual) Seg Neutrophils # Seg Neutrophils # Man Monocytes # (Manual) APTT 20.0 L Fibrinogen Heparin Anti-Xa Level POC ABG pH POC ABG pCO2 POC ABG pO2 POC Potassium 2.9 L POC Chloride Sodium Potassium Chloride Carbon Dioxide POC BUN 7 L Glucose POC Glucose 249 H Calcium Magnesium Crossmatch See Detail 06/16/16 06/16/16 06/16/16 16:55 17:41 17:48 WBC RBC Hgb POC Hgb 8.8 L Hct POC Hct 26 L < 15 L MCH MCHC RDW Plt Count Lymph % (Auto) [place] % (Auto) Lymph # [place] # Seg Neutrophils % Seg Neuts % (Manual) Lymphocytes % (Manual) Monocytes % (Manual) Seg Neutrophils # Seg Neutrophils # Man Monocytes # (Manual) APTT Fibrinogen Heparin Anti-Xa Level POC ABG pH 7.031 L POC ABG pCO2 POC ABG pO2 475 H POC Potassium 3.2 L POC Chloride 112 H 114 H Sodium Potassium Chloride Carbon Dioxide POC BUN 7 L 7 L Glucose POC Glucose 203 H 291 H Calcium Magnesium Crossmatch 06/16/16 06/16/16 06/16/16 18:07 19:09 20:10 WBC 15.8 H RBC Hgb POC Hgb 6.5 L Hct POC Hct 19 L MCH MCHC RDW Plt Count 38 L Lymph % (Auto) 5.9 L [place] % (Auto) 9.3 H Lymph # 0.9 L [place] # 1.5 H Seg Neutrophils % 84.6 H Seg Neuts % (Manual) Lymphocytes % (Manual) Monocytes % (Manual) Seg Neutrophils # 13.3 H Seg Neutrophils # Man Monocytes # (Manual) APTT Fibrinogen Heparin Anti-Xa Level POC ABG pH POC ABG pCO2 POC ABG pO2 POC Potassium POC Chloride 113 H Sodium Potassium Chloride Carbon Dioxide POC BUN 7 L Glucose POC Glucose 263 H 231 H Calcium Magnesium Crossmatch 06/16/16 06/16/16 06/16/16 20:10 20:18 21:10 WBC RBC Hgb POC Hgb Hct POC Hct MCH MCHC RDW Plt Count Lymph % (Auto) [place] % (Auto) Lymph # [place] # Seg Neutrophils % Seg Neuts % (Manual) Lymphocytes % (Manual) Monocytes % (Manual) Seg Neutrophils # Seg Neutrophils # Man Monocytes # (Manual) APTT Fibrinogen Heparin Anti-Xa Level POC ABG pH 7.236 L 7.280 L POC ABG pCO2 POC ABG pO2 139 H 145 H POC Potassium POC Chloride Sodium Potassium 3.4 L Chloride 114.5 H Carbon Dioxide 17 L D POC BUN Glucose 188 H POC Glucose Calcium 6.1 L D Magnesium Crossmatch 06/16/16 06/17/16 06/17/16 22:53 04:48 05:35 WBC RBC Hgb POC Hgb Hct POC Hct MCH MCHC RDW Plt Count Lymph % (Auto) [place] % (Auto) Lymph # [place] # Seg Neutrophils % Seg Neuts % (Manual) Lymphocytes % (Manual) Monocytes % (Manual) Seg Neutrophils # Seg Neutrophils # Man Monocytes # (Manual) APTT Fibrinogen Heparin Anti-Xa Level POC ABG pH POC ABG pCO2 33.9 L 22.2 L POC ABG pO2 152 H 154 H POC Potassium POC Chloride Sodium 150 H Potassium 3.4 L Chloride 114.2 H Carbon Dioxide 16 L POC BUN Glucose 221 H POC Glucose Calcium 7.6 L D Magnesium Crossmatch 06/17/16 06/18/16 06/18/16 09:22 07:26 08:25 WBC 20.3 H RBC 3.41 L Hgb 9.9 L POC Hgb Hct 29.7 L POC Hct MCH MCHC RDW Plt Count Lymph % (Auto) [place] % (Auto) Lymph # [place] # Seg Neutrophils % Seg Neuts % (Manual) 81.0 H Lymphocytes % (Manual) 6.0 L Monocytes % (Manual) 12.0 H Seg Neutrophils # Seg Neutrophils # Man 16.4 H Monocytes # (Manual) 2.4 H APTT Fibrinogen Heparin Anti-Xa Level POC ABG pH POC ABG pCO2 POC ABG pO2 POC Potassium POC Chloride Sodium Potassium 3.1 L Chloride Carbon Dioxide POC BUN Glucose 136 H POC Glucose 141 H Calcium 7.5 L Magnesium Crossmatch 06/18/16 06/18/16 06/18/16 08:25 11:09 19:40 WBC RBC Hgb 6.5 L D POC Hgb Hct 19.3 L* D POC Hct MCH MCHC RDW Plt Count 131 L Lymph % (Auto) [place] % (Auto) Lymph # [place] # Seg Neutrophils % Seg Neuts % (Manual) Lymphocytes % (Manual) Monocytes % (Manual) Seg Neutrophils # Seg Neutrophils # Man Monocytes # (Manual) APTT Fibrinogen Heparin Anti-Xa Level POC ABG pH 7.490 H POC ABG pCO2 POC ABG pO2 131 H POC Potassium POC Chloride Sodium Potassium Chloride Carbon Dioxide POC BUN Glucose POC Glucose 125 H Calcium Magnesium Crossmatch 06/18/16 06/19/16 06/19/16 21:10 07:07 07:28 WBC 13.6 H RBC 2.17 L Hgb 6.5 L POC Hgb Hct 18.8 L* POC Hct MCH MCHC 35 H RDW Plt Count 131 L Lymph % (Auto) 10.1 L [place] % (Auto) 9.3 H Lymph # [place] # 1.3 H Seg Neutrophils % 79.7 H Seg Neuts % (Manual) Lymphocytes % (Manual) Monocytes % (Manual) Seg Neutrophils # 10.8 H Seg Neutrophils # Man Monocytes # (Manual) APTT Fibrinogen Heparin Anti-Xa Level 0.75 H POC ABG pH POC ABG pCO2 POC ABG pO2 POC Potassium POC Chloride Sodium Potassium 3.5 L Chloride Carbon Dioxide POC BUN Glucose 104 H POC Glucose Calcium 7.6 L Magnesium 1.4 L Crossmatch
[2016-06-19] MEDS ORDERED: MAGNESIUM SULFATE 4GM/100ML 100 ML IV ONE (13:00)
[2016-06-19] MEDS: HALFPRIN EC PO SCH (16:47)
[2016-06-19] MEDS: PEPCID PO SCH ×2 (16:48→22:12)
[2016-06-19] MEDS: PLAVIX PO SCH (16:48)
--- NOTE | 2016-06-19 17:30 | Progress Note ---
Assessment and Plan Patient denies pain at present. Her foot is viable. 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 She does have diminished sensory and motor function to her left foot. We'll make her nothing by mouth for possible percutaneous thrombectomy of the left lower extremity bypass tomorrow. - Patient Problems (1) Atherosclerosis of [place] arteries of extremity with intermittent claudication Current Visit: Yes Status: Acute Subjective Date of service: 06/19/16 Principal diagnosis: Peripheral Vascular Disease; Acute Limb Ischemia Interval history: Patient is awake. She states that pain control has improved. She has used the FLOATING DERRICK OPERATOR very little. Objective - Constitutional Vitals: Vital Signs - 12hr 06/19/16 06/19/16 06/19/16 06:00 06:35 07:00 Temperature Pulse Rate 100 H 97 H 94 H Respiratory 10 L 10 L 8 L Rate Blood Pressure 167/93 167/93 145/92 O2 Sat by Pulse 98 100 100 Oximetry 06/19/16 06/19/16 06/19/16 07:30 07:55 08:00 Temperature 98.0 F Pulse Rate 88 92 H Respiratory 10 L 10 L Rate Blood Pressure 145/92 149/86 O2 Sat by Pulse 100 100 Oximetry 06/19/16 06/19/16 06/19/16 08:18 08:36 09:00 Temperature Pulse Rate 91 H 86 Respiratory 12 10 L Rate Blood Pressure 148/84 159/89 O2 Sat by Pulse 100 100 Oximetry 06/19/16 06/19/16 06/19/16 10:00 11:00 12:00 Temperature 98.4 F Pulse Rate 104 H 96 H 84 Respiratory 20 13 13 Rate Blood Pressure 147/89 153/96 159/80 O2 Sat by Pulse 100 100 Oximetry 06/19/16 06/19/16 13:00 16:00 Temperature 98.4 F Pulse Rate 91 H Respiratory 14 Rate Blood Pressure 142/75 O2 Sat by Pulse Oximetry General appearance: Present: no acute distress - EENT Eyes: EOM intact ENT: hearing intact - Neck Neck: supple - Respiratory Respiratory effort: normal Extremities: normal temperature Extremity abnormal: pulses diminished (unable to palpate pedal pulses on the left) - Neurologic Neurologic: other (patient is able to wiggle her toes on the left. She is unable to dorsiflex. She has decreased sensation to her left foot.) - Psychiatric Psychiatric: appropriate mood/affect, cooperative - Labs CBC & Chem 7: 06/18/16 21:10 06/19/16 07:28 Labs: Abnormal lab results 06/16/16 06/18/16 06/18/16 Range/Units 08:55 11:09 19:40 WBC (4.5-11.0) K/mm3 RBC (3.65-5.03) M/mm3 Hgb 6.5 L D (10.1-14.3) gm/dl Hct 19.3 L* D (30.3-42.9) % MCHC (30-34) % Plt Count 131 L (140-440) K/mm3 Lymph % (Auto) (13.4-35.0) % [place] % (Auto) (0.0-7.3) % [place] # (0.0-0.8) K/mm3 Seg Neutrophils % (40.0-70.0) % Seg Neutrophils # (1.8-7.7) K/mm3 Heparin Anti-Xa Level (0.3-0.7) U.I./ml Potassium (3.6-5.0) mmol/L Glucose (65-100) mg/dL POC Glucose 125 H (70-105) Calcium (8.4-10.2) mg/dL Magnesium (1.7-2.3) mg/dL Crossmatch See Detail 06/18/16 06/19/16 06/19/16 Range/Units 21:10 07:07 07:28 WBC 13.6 H (4.5-11.0) K/mm3 RBC 2.17 L (3.65-5.03) M/mm3 Hgb 6.5 L (10.1-14.3) gm/dl Hct 18.8 L* (30.3-42.9) % MCHC 35 H (30-34) % Plt Count 131 L (140-440) K/mm3 Lymph % (Auto) 10.1 L (13.4-35.0) % [place] % (Auto) 9.3 H (0.0-7.3) % [place] # 1.3 H (0.0-0.8) K/mm3 Seg Neutrophils % 79.7 H (40.0-70.0) % Seg Neutrophils # 10.8 H (1.8-7.7) K/mm3 Heparin Anti-Xa Level 0.75 H (0.3-0.7) U.I./ml Potassium 3.5 L (3.6-5.0) mmol/L Glucose 104 H (65-100) mg/dL POC Glucose (70-105) Calcium 7.6 L (8.4-10.2) mg/dL Magnesium 1.4 L (1.7-2.3) mg/dL Crossmatch
[2016-06-20 05:24] LABS: Hematocrit 27.5 % (30.3-42.9); Hemoglobin 9.2 gm/dl (10.1-14.3)
--- NOTE | 2016-06-20 07:18 | XRay Report ---
Single view chest: Compared to 06/19/16. History: Followup of respiratory failure. Findings: Cardiomegaly. Trachea is midline. Pulmonary vascular congestion. No consolidation or pleural effusion. Impression: Cardiomegaly with congestive changes. Increase in congestion compared to previous study. The
[2016-06-20] MEDS ORDERED: ANCEF/STERILE WATER 2 GM/20 ML IV NR (08:00)
--- NOTE | 2016-06-20 11:37 | Progress Note ---
Assessment and Plan - Patient Problems (1) Peripheral vascular disease of extremity Current Visit: Yes Status: Acute Plan to address problem: - tentative surgery im am of thursday06/16/16 - s/p stress testing and cardiac clearance - will follow post-op - s/p surgery and out of OR on MVS - further intervention per vascular team scheduled for today (2) Acute respiratory failure Current Visit: Yes Status: Acute Plan to address problem: - continue bronchodilators and pulmonary toilet - stopped alkalanized fluids - continue aspiration precautions - continue supplemental oxygen to keep sats > 92% (3) Anemia Current Visit: Yes Status: Acute Plan to address problem: - no obvious bleeding site - on IV heparin so will have to watch closely - serial H&H - received PRBC's yesterday (4) Discharge planning issues Current Visit: Yes Status: Acute Plan to address problem: - observe in ICU lani-procedurally Subjective Date of service: 06/20/16 Principal diagnosis: Peripheral Vascular Disease; Acute Limb Ischemia Interval history: Seen and examined at bedside; 24 hr events reviewed; nursing and respiratory care staff consulted; no adverse overnight events reported to me; resting in bed ; denies acute chest pains or increased SOB; denies limb pain; NPO for now for possible intervention Objective Vital Signs - 12hr 06/19/16 06/20/16 06/20/16 23:55 00:00 01:00 Temperature 98.1 F Pulse Rate 102 H 94 H 93 H Respiratory 17 15 14 Rate Blood Pressure 156/78 149/74 149/73 O2 Sat by Pulse 100 100 100 Oximetry 06/20/16 06/20/16 06/20/16 01:15 01:17 02:00 Temperature Pulse Rate 97 H 96 H Respiratory 19 16 Rate Blood Pressure 149/73 162/78 O2 Sat by Pulse 100 100 100 Oximetry 06/20/16 06/20/16 06/20/16 02:25 03:00 04:00 Temperature Pulse Rate 100 H 93 H 95 H Respiratory 18 14 17 Rate Blood Pressure 151/74 157/77 158/79 O2 Sat by Pulse 100 100 100 Oximetry 06/20/16 06/20/16 06/20/16 04:21 04:27 05:00 Temperature 99.5 F Pulse Rate 100 H 97 H Respiratory 17 16 Rate Blood Pressure 157/77 153/77 O2 Sat by Pulse 100 100 Oximetry 06/20/16 06/20/16 06/20/16 05:03 06:00 07:25 Temperature Pulse Rate 95 H 113 H Respiratory 15 14 Rate Blood Pressure 153/77 155/77 O2 Sat by Pulse 100 100 100 Oximetry 06/20/16 07:41 Temperature 98.8 F Pulse Rate Respiratory Rate Blood Pressure O2 Sat by Pulse Oximetry Constitutional: no acute distress, alert Eyes: non-icteric ENT: oropharynx moist Neck: supple, no lymphadenopathy Effort: normal Ascultation: Bilateral: diminished breath sounds, rhonchi (posterior bases) Cardiovascular: regular rate and rhythm Gastrointestinal: normoactive bowel sounds, soft, non-tender, non-distended Integumentary: other (weak LLExt) Extremities: no cyanosis, no edema, other (LLExt pulses diminished but leg warm) Neurologic: normal mental status, non-focal exam, pupils equal and round, motor strength normal and Psychiatric: mood appropriate, affect normal CBC and BMP: 06/20/16 18:15 06/20/16 18:15 ABG, PT/INR, D-dimer: ABG POC ABG pH 7.490 (7.35-7.45) H 06/18/16 08:25 POC ABG pCO2 35.0 (35-45) 06/18/16 08:25 POC ABG pO2 131 (80-105) H 06/18/16 08:25 POC ABG HCO3 26.7 06/18/16 08:25 POC ABG Total CO2 28 06/18/16 08:25 POC ABG O2 Sat 99 06/18/16 08:25 PT/INR, D-dimer PT 13.9 Sec. (12.2-14.9) 06/18/16 21:10 INR 1.08 (0.87-1.13) 06/18/16 21:10 Abnormal lab findings: Abnormal Labs 06/13/16 06/13/16 06/13/16 09:45 09:45 09:45 WBC RBC Hgb POC Hgb Hct POC Hct MCH 25 L MCHC RDW 15.8 H Plt Count Lymph % (Auto) [place] % (Auto) 8.1 H Lymph # [place] # Seg Neutrophils % Seg Neuts % (Manual) Lymphocytes % (Manual) Monocytes % (Manual) Seg Neutrophils # Seg Neutrophils # Man Monocytes # (Manual) APTT Fibrinogen 522 H Heparin Anti-Xa Level POC ABG pH POC ABG pCO2 POC ABG pO2 POC Potassium POC Chloride Sodium Potassium Chloride Carbon Dioxide POC BUN Glucose POC Glucose Calcium 10.3 H Magnesium Crossmatch 06/13/16 06/13/16 06/13/16 09:45 20:14 20:15 WBC RBC Hgb POC Hgb Hct POC Hct MCH MCHC RDW Plt Count Lymph % (Auto) [place] % (Auto) Lymph # [place] # Seg Neutrophils % Seg Neuts % (Manual) Lymphocytes % (Manual) Monocytes % (Manual) Seg Neutrophils # Seg Neutrophils # Man Monocytes # (Manual) APTT 103.8 H* Fibrinogen Heparin Anti-Xa Level 0.72 H POC ABG pH POC ABG pCO2 POC ABG pO2 POC Potassium POC Chloride Sodium Potassium Chloride Carbon Dioxide POC BUN Glucose POC Glucose Calcium Magnesium Crossmatch See Detail 06/14/16 06/14/16 06/14/16 07:44 10:18 19:09 WBC RBC Hgb POC Hgb Hct POC Hct MCH 26 L MCHC RDW 15.8 H Plt Count Lymph % (Auto) [place] % (Auto) 9.1 H Lymph # [place] # Seg Neutrophils % Seg Neuts % (Manual) Lymphocytes % (Manual) Monocytes % (Manual) Seg Neutrophils # Seg Neutrophils # Man Monocytes # (Manual) APTT Fibrinogen Heparin Anti-Xa Level 0.76 H POC ABG pH POC ABG pCO2 POC ABG pO2 POC Potassium POC Chloride Sodium Potassium Chloride Carbon Dioxide POC BUN Glucose POC Glucose 106 H Calcium Magnesium Crossmatch 06/15/16 06/15/16 06/15/16 04:43 04:43 22:49 WBC RBC Hgb 9.2 L POC Hgb Hct 28.4 L POC Hct MCH MCHC RDW Plt Count Lymph % (Auto) [place] % (Auto) Lymph # [place] # Seg Neutrophils % Seg Neuts % (Manual) Lymphocytes % (Manual) Monocytes % (Manual) Seg Neutrophils # Seg Neutrophils # Man Monocytes # (Manual) APTT Fibrinogen Heparin Anti-Xa Level 0.85 H POC ABG pH POC ABG pCO2 POC ABG pO2 POC Potassium POC Chloride Sodium Potassium Chloride Carbon Dioxide POC BUN Glucose POC Glucose 134 H Calcium Magnesium Crossmatch 06/16/16 06/16/16 06/16/16 08:55 08:55 14:21 WBC RBC Hgb POC Hgb 5.8 L Hct POC Hct 17 L MCH MCHC RDW Plt Count Lymph % (Auto) [place] % (Auto) Lymph # [place] # Seg Neutrophils % Seg Neuts % (Manual) Lymphocytes % (Manual) Monocytes % (Manual) Seg Neutrophils # Seg Neutrophils # Man Monocytes # (Manual) APTT 20.0 L Fibrinogen Heparin Anti-Xa Level POC ABG pH POC ABG pCO2 POC ABG pO2 POC Potassium 2.9 L POC Chloride Sodium Potassium Chloride Carbon Dioxide POC BUN 7 L Glucose POC Glucose 249 H Calcium Magnesium Crossmatch See Detail 06/16/16 06/16/16 06/16/16 16:55 17:41 17:48 WBC RBC Hgb POC Hgb 8.8 L Hct POC Hct 26 L < 15 L MCH MCHC RDW Plt Count Lymph % (Auto) [place] % (Auto) Lymph # [place] # Seg Neutrophils % Seg Neuts % (Manual) Lymphocytes % (Manual) Monocytes % (Manual) Seg Neutrophils # Seg Neutrophils # Man Monocytes # (Manual) APTT Fibrinogen Heparin Anti-Xa Level POC ABG pH 7.031 L POC ABG pCO2 POC ABG pO2 475 H POC Potassium 3.2 L POC Chloride 112 H 114 H Sodium Potassium Chloride Carbon Dioxide POC BUN 7 L 7 L Glucose POC Glucose 203 H 291 H Calcium Magnesium Crossmatch 06/16/16 06/16/16 06/16/16 18:07 19:09 20:10 WBC 15.8 H RBC Hgb POC Hgb 6.5 L Hct POC Hct 19 L MCH MCHC RDW Plt Count 38 L Lymph % (Auto) 5.9 L [place] % (Auto) 9.3 H Lymph # 0.9 L [place] # 1.5 H Seg Neutrophils % 84.6 H Seg Neuts % (Manual) Lymphocytes % (Manual) Monocytes % (Manual) Seg Neutrophils # 13.3 H Seg Neutrophils # Man Monocytes # (Manual) APTT Fibrinogen Heparin Anti-Xa Level POC ABG pH POC ABG pCO2 POC ABG pO2 POC Potassium POC Chloride 113 H Sodium Potassium Chloride Carbon Dioxide POC BUN 7 L Glucose POC Glucose 263 H 231 H Calcium Magnesium Crossmatch 06/16/16 06/16/16 06/16/16 20:10 20:18 21:10 WBC RBC Hgb POC Hgb Hct POC Hct MCH MCHC RDW Plt Count Lymph % (Auto) [place] % (Auto) Lymph # [place] # Seg Neutrophils % Seg Neuts % (Manual) Lymphocytes % (Manual) Monocytes % (Manual) Seg Neutrophils # Seg Neutrophils # Man Monocytes # (Manual) APTT Fibrinogen Heparin Anti-Xa Level POC ABG pH 7.236 L 7.280 L POC ABG pCO2 POC ABG pO2 139 H 145 H POC Potassium POC Chloride Sodium Potassium 3.4 L Chloride 114.5 H Carbon Dioxide 17 L D POC BUN Glucose 188 H POC Glucose Calcium 6.1 L D Magnesium Crossmatch 06/16/16 06/17/16 06/17/16 22:53 04:48 05:35 WBC RBC Hgb POC Hgb Hct POC Hct MCH MCHC RDW Plt Count Lymph % (Auto) [place] % (Auto) Lymph # [place] # Seg Neutrophils % Seg Neuts % (Manual) Lymphocytes % (Manual) Monocytes % (Manual) Seg Neutrophils # Seg Neutrophils # Man Monocytes # (Manual) APTT Fibrinogen Heparin Anti-Xa Level POC ABG pH POC ABG pCO2 33.9 L 22.2 L POC ABG pO2 152 H 154 H POC Potassium POC Chloride Sodium 150 H Potassium 3.4 L Chloride 114.2 H Carbon Dioxide 16 L POC BUN Glucose 221 H POC Glucose Calcium 7.6 L D Magnesium Crossmatch 06/17/16 06/18/16 06/18/16 09:22 07:26 08:25 WBC 20.3 H RBC 3.41 L Hgb 9.9 L POC Hgb Hct 29.7 L POC Hct MCH MCHC RDW Plt Count Lymph % (Auto) [place] % (Auto) Lymph # [place] # Seg Neutrophils % Seg Neuts % (Manual) 81.0 H Lymphocytes % (Manual) 6.0 L Monocytes % (Manual) 12.0 H Seg Neutrophils # Seg Neutrophils # Man 16.4 H Monocytes # (Manual) 2.4 H APTT Fibrinogen Heparin Anti-Xa Level POC ABG pH POC ABG pCO2 POC ABG pO2 POC Potassium POC Chloride Sodium Potassium 3.1 L Chloride Carbon Dioxide POC BUN Glucose 136 H POC Glucose 141 H Calcium 7.5 L Magnesium Crossmatch 06/18/16 06/18/16 06/18/16 08:25 11:09 19:40 WBC RBC Hgb 6.5 L D POC Hgb Hct 19.3 L* D POC Hct MCH MCHC RDW Plt Count 131 L Lymph % (Auto) [place] % (Auto) Lymph # [place] # Seg Neutrophils % Seg Neuts % (Manual) Lymphocytes % (Manual) Monocytes % (Manual) Seg Neutrophils # Seg Neutrophils # Man Monocytes # (Manual) APTT Fibrinogen Heparin Anti-Xa Level POC ABG pH 7.490 H POC ABG pCO2 POC ABG pO2 131 H POC Potassium POC Chloride Sodium Potassium Chloride Carbon Dioxide POC BUN Glucose POC Glucose 125 H Calcium Magnesium Crossmatch 06/18/16 06/19/16 06/19/16 21:10 07:07 07:28 WBC 13.6 H RBC 2.17 L Hgb 6.5 L POC Hgb Hct 18.8 L* POC Hct MCH MCHC 35 H RDW Plt Count 131 L Lymph % (Auto) 10.1 L [place] % (Auto) 9.3 H Lymph # [place] # 1.3 H Seg Neutrophils % 79.7 H Seg Neuts % (Manual) Lymphocytes % (Manual) Monocytes % (Manual) Seg Neutrophils # 10.8 H Seg Neutrophils # Man Monocytes # (Manual) APTT Fibrinogen Heparin Anti-Xa Level 0.75 H POC ABG pH POC ABG pCO2 POC ABG pO2 POC Potassium POC Chloride Sodium Potassium 3.5 L Chloride Carbon Dioxide POC BUN Glucose 104 H POC Glucose Calcium 7.6 L Magnesium 1.4 L Crossmatch 06/20/16 04:15 WBC RBC Hgb 9.2 L POC Hgb Hct 27.5 L D POC Hct MCH MCHC RDW Plt Count Lymph % (Auto) [place] % (Auto) Lymph # [place] # Seg Neutrophils % Seg Neuts % (Manual) Lymphocytes % (Manual) Monocytes % (Manual) Seg Neutrophils # Seg Neutrophils # Man Monocytes # (Manual) APTT Fibrinogen Heparin Anti-Xa Level POC ABG pH POC ABG pCO2 POC ABG pO2 POC Potassium POC Chloride Sodium Potassium Chloride Carbon Dioxide POC BUN Glucose POC Glucose Calcium Magnesium Crossmatch
[2016-06-20] MEDS ORDERED: HEPARIN 10,000 UNITS/10 ML ONE (13:36)
[2016-06-20] MEDS ORDERED: ANCEF/STERILE WATER 2 GM/20 ML 20 ML IV ONE (13:36)
[2016-06-20] MEDS ORDERED: HEPARIN/NS 5000 UNIT/500ML(CATH LAB) 1,000 ML IR ONE (13:38)
[2016-06-20] MEDS ORDERED: XYLOCAINE 2% INFILTRATI ONE (13:39)
[2016-06-20] MEDS: SUBLIMAZE ONE ×3 (14:10→14:54)
[2016-06-20] MEDS: VERSED ONE ×3 (14:10→14:57)
[2016-06-20] MEDS ORDERED: CATHFLO ONE (14:31)
[2016-06-20] MEDS ORDERED: NACL 0.9% 0 ML ONE (14:31)
[2016-06-20] MEDS ORDERED: HEPARIN/NS 5000 UNIT/500ML(CATH LAB) 500 ML IR ONE ×2 (14:31→15:05)
[2016-06-20] MEDS ORDERED: WATER FOR INJ (PF) 0 ML ONE (14:32)
[2016-06-20] MEDS ORDERED: NACL 0.9% 1000 ML 1,000 ML ONE (15:50)
--- NOTE | 2016-06-20 15:57 | Operative Report ---
Operative Report Operative Report: Date of Procedure: 06/20/2016 Pre-operative Diagnosis: Acute Thrombosis of Left Femoropopliteal Bypass Graft Post-operative Diagnosis: Acute Thrombosis of Left External Iliac, Common Femoral Artery, And Femoropopliteal Bypass Graft Procedure(s): 1. Ultrasound-Guided Access Right Common Femoral Artery 2. Diagnostic Left Lower Extremity Arteriogram (Patient with Clinical Change) 3. Percutaneous Mechanical Thrombectomy of Left External Iliac Artery With AngioJet Catheter 4. Percutaneous Mechanical Thrombectomy of Left Femoropopliteal Bypass Graft with AngioJet Catheter 5. Angioplasty and Stenting Graft of Left External Iliac Artery with 8 x 38 mm iCAST Stent Graft 6. Angioplasty of Left Popliteal Artery with 5 x 100 Lutonix Drug Coated Balloon 7. Closure of Right Femoral Arteriotomy with 6 Chadian Angio-Seal 8. Radiologic Supervision with Interpretation Surgeon: Jose Angel Mckoy M.D. Cras: None Anesthesia: Local and IV sedation EBL: Minimal Counts: CorrectCorrect Complications: None Condition: Stable Specimen: None Indication: The patient is a 55-year-old female with a history of peripheral vascular disease status post angioplasty and stenting of her left external iliac artery as well as profundoplasty and femoropopliteal bypass with greater saphenous vein. She had a prolonged procedure with a significant amount of blood loss and acutely thrombosed her graft after the procedure. She had a viable foot and now that she has remained stable for several days it was felt that she would benefit from thrombectomy of the graft. She was given the risks, benefits , and alternative procedures and consented to the procedure. Angiographic Findings: The left lower extremity arteriogram demonstrated the common iliac artery as well as the hypogastric widely patent. The previously placed stent grafts in the left external iliac artery were occluded with occlusion of the common femoral artery and no flow seen in the femoropopliteal bypass graft. The profunda artery was filling through collaterals from the hypogastric. After traversing the occluded iliac stents as well as the common femoral artery requiring catheter were advanced into the femoropopliteal graft which showed occlusion of the graft as well as the anastomosis however the popliteal artery from behind the knee was patent and the patient had 2 vessel runoff through the peroneal artery and anterior tibial artery was widely patent into the foot. The posterior tibial artery reconstituted through collaterals at the ankle was patent to the foot. After intervention the external iliac artery as well as the common femoral artery and femoropopliteal bypass are widely patent. The popliteal artery was performed with brisk flow of contrast into 2 vessels into the foot. There was evidence of a pseudoaneurysm from a branch of the vein graft however at this time I decided to leave it alone and reassess it and several weeks. If it is not thrombosed I will injected with thrombin to thrombose it. Description of Procedure: The patient was brought to the [facility] in the supine position. After she was adequately sedated right groin was prepped and draped in fashion. Ultrasound was used to identify the right common femoral artery and the overlying skin and soft tissue was anesthetized with lidocaine. A small stab incision was made to micropuncture technique was used with ultrasound guidance in the right common femoral artery and an 035 Bentson wire was advanced to the aorta under fluoroscopy. A 5 Chadian sheath was then placed by Seldinger technique. An Omni Flush catheter was advanced to the aorta and up and over the bifurcation with the Bentson wire. The left lower extremity runoff was then performed with the previously described findings. I then used the Omni Flush catheter and advantage wire to traverse the occluded external iliac artery as well as the femoropopliteal bypass graft and reentered in the above-knee to artery. Arterial gram demonstrated that the popliteal artery behind the knee as well as the distal popliteal artery and tibial vessels were patent. I removed the catheter as well as a 5 Chadian sheath and then placed a 6 Chadian sheath was inserted under technique. I used the AngioJet catheter to perform percutaneous mechanical thrombectomy of the external iliac as well as the femoropopliteal bypass graft. Follow-up arteriogram demonstrated what appeared to be thrombus versus plaque at the proximal external iliac artery and approximately 80% stenosis of the popliteal artery just distal to the distal anastomosis of the femoropopliteal graft. I decided to use a cover stent in the external iliac artery so I exchanged the 6 Chadian sheath for 7 Chadian 45 cm destination sheath and then placed an 8 x 38 mm iCast Stent Graft with a follow-up result of a widely patent external iliac artery. I then advanced a 5 x 100 Lutonix Drug Coated Balloon and the popliteal artery with a 3 minute inflation. The follow- up result was a widely patent popliteal artery with brisk flow into the tibial vessels. I then inflated and 8 mm balloon in the common femoral and left this inflated for 5 minutes with an attempt to occlude and thrombose the pseudoaneurysm without success. I also made attempts to cannulate the profunda artery however this was also unsuccessful. At this point with the improve flow to her lower extremity I decided to stop the procedure. I pulled the sheath into the right external iliac artery and advanced a wire into the aorta and then used a 6 Chadian and distal for closure. The patient tolerated the procedure well. All sponge, needle, and management counts were correct. The patient was taken to the recovery area in stable condition.
[2016-06-20] MEDS ORDERED: SODIUM BICARBONATE IV ONE (16:45)
[2016-06-20] MEDS ORDERED: AMIDATE IV ONE (16:45)
[2016-06-20] MEDS ORDERED: ROMAZICON IV ONE (16:45)
[2016-06-20] MEDS ORDERED: QUELICIN ONE (16:45)
[2016-06-20] MEDS ORDERED: ADRENALIN ONE (16:45)
--- NOTE | 2016-06-20 17:20 | Event Note ---
Date: 06/20/16 Responded to ICU call for laura alvarez. Dr. Mckoy at the bedside. Patient postop vascular procedure. Currently agonal respirations, tachycardic, and diaphoretic. Unable to get a reliable pulse oximetry measurement. Patient received oxygen via bag valve mask ventilations. Patient prepped for intubation - Intubation Time Out Performed: Yes Sedative: Etomidate Mg Given: 20 Paralytic: Succinylcholine Mg Given: 100 Size: 4 ET Tube Size: 7.5 Tube Secured Depth (cm): 20 Tube Secured Location: teeth Tube Placement Confirmation: visualized tube passing t, equal breath sounds bilat, no breath sounds over epi, confirmation by capnometr Patient Tolerated Procedure: well Intubation Complications: none Additional Comments: Each tube was initially placed 22 cm at the lip then breath sounds appear to be louder in the right chest cavity. Pullback to 20 centimeters .Will obtain chest x-ray to confirm position of tube placement prior to further tube adjustment.
[2016-06-20] MEDS ORDERED: LEVOPHED DRIP 4 MG/NS 250 ML 250 ML IV ONE ×2 (17:36→19:12)
--- NOTE | 2016-06-20 17:42 | Event Note ---
Date: 06/20/16 Responded to the floor for CODE BLUE. I recently intubated the patient for agonal respirations. Chest x-ray was reviewed by vascular surgeons at the bedside and ET tube adjusted accordingly with confirmatory post x-ray performed. Patient now has equal breath sounds bilaterally with bagging. No spontaneous respirations noted. Patient apparently bradyed down and became pulseless. Chest compressions in progress upon my arrival. Patient had received epinephrine 1 mg 2 minutes prior to my arrival. Upon pulse recheck patient had a palpable pulse with a narrow complex rhythm. Vascular surgeons at bedside to assume care and further stabilization.
--- NOTE | 2016-06-20 17:54 | XRay Report ---
FINAL REPORT PROCEDURE: XR CHEST 1V AP TECHNIQUE: Chest radiograph anteroposterior view. CPT 85935 HISTORY: ET tube placement COMPARISON: Chest x-ray dated June 16, 2016 FINDINGS: Endotracheal tube remains with its tip in the right mainstem bronchus. There is likely volume loss in the left angelica thorax with midline shift to the left. Right lung appears clear. A 2nd images obtained following appropriate placement of the endotracheal tube which will be dictated under a separate report. IMPRESSION: Endotracheal tube has its tip in the right mainstem bronchus, unchanged.
--- NOTE | 2016-06-20 17:55 | XRay Report ---
FINAL REPORT PROCEDURE: XR CHEST 1V AP TECHNIQUE: Chest radiograph anteroposterior view. CPT 94330 HISTORY: ET Tube pulled back COMPARISON: Chest x-ray from same day FINDINGS: Endotracheal tube has been partially withdrawn and now has its tip appropriately positioned 2.6 cm above the lucia. There is improved aeration of the left lung but there is likely persistent opacity at the left lung base medially that may be atelectasis or pneumonia. There may be small left pleural effusion. No pneumothorax is seen. Heart is normal in size. IMPRESSION: Endotracheal tube appears appropriately positioned with persistent opacity in the left retrocardiac region.
[2016-06-20] MEDS ORDERED: NACL 0.9% 500 ML 500 ML ONE (18:06)
[2016-06-20] MEDS ORDERED: NACL 0.9% 500 ML 500 ML IV SCH (18:10)
[2016-06-20 18:33] LABS: Mean Corpuscular HGB Conc 32 % (30-34); Mean Corpuscular Hemoglobin 30 pg (28-32); Mean Corpuscular Volume 93 fl (79-97); Platelet Count 138 K/mm3 (140-440); Red Blood Count 1.19 M/mm3 (3.65-5.03); White Blood Count 16.6 K/mm3 (4.5-11.0)
[2016-06-20 18:36] LABS: Hemoglobin 3.5 gm/dl (10.1-14.3)
--- NOTE | 2016-06-20 18:36 | Operative Report ---
Operative Report Operative Report: EXAM: 1. Ultrasound-guided puncture of the right common femoral vein 2. Placement of a right common femoral vein nontunneled noncuffed catheter. DATE: 06/20/16 INDICATION: Cardiac arrest requiring TLC catheter. MEDICATIONS: Local anesthetic (1% lidocaine). HAND SHAKER: LUI MCCABE MD DEVICES: 7F triple lumen nontunneled noncuffed catheter CONTRAST: None PROCEDURE: The risks, benefits, and alternatives were discussed and informed consent was obtained. The patient's right common femoral vein was assessed with ultrasound at bedside and determined to be patent prior to procedure. The patient was prepped and draped in a sterile fashion. The puncture site was anesthetized. Under sonographic guidance, the right common femoral vein was punctured with a 18-gauge micropuncture needle and a 0.035 inch wire was advanced through the needle. Over the 0.035 inch wire, dilatation was performed. The catheter was advanced over the wire. 2-0 silk suture was used to secure the catheter. The catheter was charged with saline. Biopatch and tegaderm were applied. FINDINGS: 1. Ultrasound documented patency of the right common femoral vein. The vessel was accessed under direct ultrasound guidance. IMPRESSION: 1. Successful ultrasound guided bedside placement of a right common femoral vein nontunneled noncuffed triple lumen catheter.
[2016-06-20 18:57] LABS: BUN/Creatinine Ratio 11.11; Blood Urea Nitrogen 10 mg/dL (7-17); Calcium 6.7 mg/dL (8.4-10.2); Carbon Dioxide 14 mmol/L (22-30); Chloride 102.7 mmol/L (98-107); Potassium 3.7 mmol/L (3.6-5.0); Sodium 146 mmol/L (137-145)
[2016-06-20 18:59] LABS: Anion Gap 33 mmol/L
[2016-06-20 19:02] LABS: Glucose 31 mg/dL (65-100)
[2016-06-20] MEDS ORDERED: D50W (25GM) IV ONE (19:03)
[2016-06-20] MEDS: LEVOPHED DRIP 4 MG/NS 250 ML 250 ML IV SCH (19:15)
[2016-06-20 19:42] LABS: ISTAT Base Excess -10; ISTAT HCO3 15.1; ISTAT PCO2 26.3 (35-45); ISTAT PH 7.367 (7.35-7.45); ISTAT PO2 394 (80-105); ISTAT SO2 100; ISTAT TCO2 16
[2016-06-20] MEDS: NACL 0.9% 1000 ML 1,000 ML IV SCH (19:45)
--- NOTE | 2016-06-20 19:57 | Event Note ---
Date: 06/20/16 S/P cardio-pulmonary arrest S/P ABLA S?P CPR and ACLS on MVS CXR with Right mainstem intubation On levophed at max dose - retract ETT and re-image - bronchodilators and pulmonary toilet - Stat PRBC transfusions till Hb > 7.0 - wean vasopressors to keep MAP - gentle crystaloid resuscitation - trend H&H - d/c IV heparin - aspiration precautions / VAP bundles ..critically ill on life sustaining interventions includind MVS and at high risk for further deterioration including
[2016-06-20] MEDS ORDERED: fentaNYL DRIP Premix 100 ML IV SCH (20:00)
[2016-06-20] MEDS ORDERED: VERSED/NS 100MG/100ML 100 ML IV SCH (20:00)
--- NOTE | 2016-06-20 20:31 | XRay Report ---
FINAL REPORT PROCEDURE: XR CHEST 1V AP TECHNIQUE: Chest radiograph anteroposterior view. CPT 78593 HISTORY: ETT dislodgement COMPARISON: Chest x-ray dated June 20, 2016 FINDINGS: Heart: Normal. Mediastinum/Vessels: Normal. Lungs/Pleural space: Persistent mild density is seen at the left lung base that may be due to atelectasis or pneumonia and possible small pleural effusion. Bony thorax: No acute osseous abnormality. Life support devices: Endotracheal tube terminates 3.3 cm above the lucia.. IMPRESSION: Endotracheal tube has its tip 3.3 cm above the lucia with persistent opacity at the left lung base.
[2016-06-20 21:38] LABS: Hematocrit 32.8 % (30.3-42.9); Hemoglobin 11.2 gm/dl (10.1-14.3)
[2016-06-20] MEDS ORDERED: NACL 0.9% 500 ML 500 ML IV ONE (21:54)
[2016-06-20] MEDS: HEPARIN/ 0.45% NACL-25,000 UNIT/500 ML 500 ML IV SCH (22:50)
[2016-06-20 23:19] LABS: INR 1.85 (0.87-1.13)
[2016-06-20 23:20] LABS: Partial Thromboplastin Time 48.4 Sec. (24.2-36.6)
[2016-06-21] MEDS: NEURONTIN PO SCH ×2 (00:23→17:16)
[2016-06-21] MEDS: PEPCID PO SCH (00:24)
[2016-06-21 02:48] LABS: Hematocrit 35.1 % (30.3-42.9); Hemoglobin 12.2 gm/dl (10.1-14.3)
[2016-06-21] MEDS: PITRESSin 20 UNIT in NACL 0.9% 100 ML IV SCH ×2 (02:48→10:15)
[2016-06-21] MEDS: LEVOPHED DRIP 4 MG/NS 250 ML 250 ML IV SCH ×5 (02:56→16:53)
[2016-06-21] MEDS: NACL 0.9% 1000 ML 1,000 ML IV SCH ×2 (02:59→12:19)
[2016-06-21 04:47] LABS: Hematocrit 30.9 % (30.3-42.9); Hemoglobin 10.9 gm/dl (10.1-14.3); Mean Corpuscular HGB Conc 35 % (30-34); Mean Corpuscular Hemoglobin 31 pg (28-32); Mean Corpuscular Volume 86 fl (79-97); Platelet Count 116 K/mm3 (140-440); Red Blood Count 3.58 M/mm3 (3.65-5.03); Red Cell Distribution Width 14.3 % (13.2-15.2)
[2016-06-21 04:59] LABS: White Blood Count 21.7 K/mm3 (4.5-11.0)
[2016-06-21 05:05] LABS: Calcium 6.4 mg/dL (8.4-10.2); Chloride 110.3 mmol/L (98-107)
[2016-06-21] MEDS: KCL 20MEQ/100ML 100 ML IV SCH ×2 (05:51→07:04)
[2016-06-21 06:06] LABS: ISTAT Base Excess -4; ISTAT PCO2 21.1 (35-45); ISTAT PH 7.541 (7.35-7.45); ISTAT PO2 108 (80-105); ISTAT SO2 99; ISTAT TCO2 19
[2016-06-21 06:35] LABS: Basophils % (Manual) 0 % (0.0-1.8); Blastocytes % (Manual) 0 %; Eosinophils % (Manual) 0 % (0.0-4.3)
[2016-06-21 06:36] LABS: Anisocytosis Few
[2016-06-21 06:37] LABS: Diff Status Complete; Spherocytes Few
[2016-06-21 07:34] LABS: Hematocrit 24.7 % (30.3-42.9); Hemoglobin 8.3 gm/dl (10.1-14.3)
[2016-06-21] MEDS ORDERED: NACL 0.9% 1000 ML 1,000 ML IV SCH (08:00)
[2016-06-21] MEDS ORDERED: NACL 0.9% 500 ML 500 ML ONE (08:32)
[2016-06-21] MEDS ORDERED: NACL 0.9% 500 ML 500 ML IV ONE (08:38)
--- NOTE | 2016-06-21 12:18 | Progress Note ---
Assessment and Plan Patient awake,following simple commands.On mechanical ventilation. Assist control rate 20, tidal volume 500, FIO2 40%,PEEP 5, O2 saturation 100%. - Patient Problems (1) Acute respiratory failure Current Visit: Yes Status: Acute Plan to address problem: On mechanical ventilation, Assist control rate 20, tidal volume 500, FIO2 40%, PEEP 5. SGDs Continue Protonix (2) Cardiopulmonary arrest with successful resuscitation Current Visit: Yes Status: Acute Plan to address problem: Patient resuciated . Patient is on mechanical ventilation and vasopressors. (3) Left lower lobe pneumonia Current Visit: Yes Status: Acute Plan to address problem: Patient running low grade temp. Patient has leukocytosis. Chest xray showing left lower lobe infiltrate, Obtaining blood cultures Tracheal aspirate for gram stain and C&S. Urin for U/A C&S. Starting on Zosyn. (4) Atherosclerosis of [place] arteries of extremity with intermittent claudication Current Visit: Yes Status: Acute Plan to address problem: Management as per vascular surgery. Subjective Date of service: 06/21/16 Principal diagnosis: Peripheral Vascular Disease; Acute Limb Ischemia Interval history: Patient awake,following simple commands.On mechanical ventilation. Assist control rate 20, tidal volume 500, FIO2 40%,PEEP 5, O2 saturation 100%. Objective Vital Signs - 12hr 06/21/16 06/21/16 06/21/16 00:12 00:15 00:21 Temperature Pulse Rate 102 H 104 H 102 H Pulse Rate [ Left From Monitor] Respiratory 11 L 25 H Rate Blood Pressure 114/57 112/76 123/83 O2 Sat by Pulse 100 100 Oximetry 06/21/16 06/21/16 06/21/16 00:30 00:45 01:01 Temperature Pulse Rate 103 H 105 H 109 H Pulse Rate [ Left From Monitor] Respiratory 18 21 18 Rate Blood Pressure 130/73 115/94 114/88 O2 Sat by Pulse 100 Oximetry 06/21/16 06/21/16 06/21/16 01:15 01:30 01:45 Temperature Pulse Rate 113 H 111 H 111 H Pulse Rate [ Left From Monitor] Respiratory 15 18 14 Rate Blood Pressure 192/178 111/55 111/55 O2 Sat by Pulse 100 Oximetry 06/21/16 06/21/16 06/21/16 02:01 02:07 02:08 Temperature 97.9 F Pulse Rate 137 H 120 H Pulse Rate [ Left From Monitor] Respiratory 25 H 24 Rate Blood Pressure 83/65 79/64 O2 Sat by Pulse 100 Oximetry 06/21/16 06/21/16 06/21/16 02:15 02:31 02:45 Temperature Pulse Rate 121 H 117 H 111 H Pulse Rate [ Left From Monitor] Respiratory 17 19 17 Rate Blood Pressure 79/64 108/91 108/91 O2 Sat by Pulse 100 100 Oximetry 06/21/16 06/21/16 06/21/16 03:01 03:15 03:31 Temperature Pulse Rate 103 H 95 H 96 H Pulse Rate [ Left From Monitor] Respiratory 23 24 22 Rate Blood Pressure 101/69 101/69 101/69 O2 Sat by Pulse Oximetry 06/21/16 06/21/16 06/21/16 03:37 03:45 03:50 Temperature Pulse Rate 101 H 105 H 101 H Pulse Rate [ Left From Monitor] Respiratory 15 12 17 Rate Blood Pressure 110/60 110/60 110/60 O2 Sat by Pulse Oximetry 06/21/16 06/21/16 06/21/16 04:00 04:01 04:15 Temperature Pulse Rate 110 H 105 H Pulse Rate [ 110 H Left From Monitor] Respiratory 20 19 Rate Blood Pressure 104/55 110/60 O2 Sat by Pulse 100 Oximetry 06/21/16 06/21/16 06/21/16 04:30 04:31 04:41 Temperature 97.3 F L Pulse Rate 110 H 109 H Pulse Rate [ Left From Monitor] Respiratory 21 25 H Rate Blood Pressure 104/55 110/60 O2 Sat by Pulse 88 Oximetry 06/21/16 06/21/16 06/21/16 04:45 04:51 05:01 Temperature Pulse Rate 108 H 112 H 116 H Pulse Rate [ Left From Monitor] Respiratory 25 H 19 Rate Blood Pressure 104/55 124/90 124/90 O2 Sat by Pulse 100 100 Oximetry 06/21/16 06/21/16 06/21/16 05:15 05:31 05:45 Temperature Pulse Rate 123 H 130 H 138 H Pulse Rate [ Left From Monitor] Respiratory 16 24 25 H Rate Blood Pressure 124/90 123/76 123/76 O2 Sat by Pulse 100 100 100 Oximetry 06/21/16 06/21/16 06/21/16 06:01 06:15 06:30 Temperature Pulse Rate 136 H 130 H 131 H Pulse Rate [ Left From Monitor] Respiratory 22 20 15 Rate Blood Pressure 81/58 81/58 121/67 O2 Sat by Pulse 100 100 100 Oximetry 06/21/16 06/21/16 06/21/16 06:45 07:01 07:15 Temperature Pulse Rate 126 H 129 H 128 H Pulse Rate [ Left From Monitor] Respiratory 23 15 19 Rate Blood Pressure 121/67 121/67 116/57 O2 Sat by Pulse 100 100 Oximetry 06/21/16 06/21/16 06/21/16 07:30 07:45 08:00 Temperature 99 F Pulse Rate 127 H 123 H Pulse Rate [ Left From Monitor] Respiratory 21 19 20 Rate Blood Pressure 86/53 105/60 O2 Sat by Pulse 100 100 100 Oximetry 06/21/16 06/21/16 06/21/16 08:01 08:15 08:30 Temperature Pulse Rate 119 H 122 H 119 H Pulse Rate [ Left From Monitor] Respiratory 20 14 22 Rate Blood Pressure 128/59 128/59 134/71 O2 Sat by Pulse 100 100 100 Oximetry 06/21/16 06/21/16 06/21/16 08:45 09:01 09:15 Temperature Pulse Rate 119 H 119 H 118 H Pulse Rate [ Left From Monitor] Respiratory 20 21 19 Rate Blood Pressure 134/71 118/67 118/67 O2 Sat by Pulse 100 100 100 Oximetry 06/21/16 06/21/16 06/21/16 09:30 09:45 10:00 Temperature Pulse Rate 117 H 115 H 113 H Pulse Rate [ Left From Monitor] Respiratory 21 19 22 Rate Blood Pressure 138/80 138/80 136/78 O2 Sat by Pulse 100 100 100 Oximetry 06/21/16 06/21/16 10:03 10:06 Temperature 99.0 F Pulse Rate 109 H 123 H Pulse Rate [ Left From Monitor] Respiratory 22 20 Rate Blood Pressure 136/78 87/52 O2 Sat by Pulse 100 Oximetry Constitutional: no acute distress, alert Eyes: non-icteric ENT: oropharynx moist Neck: supple, no lymphadenopathy Effort: normal Ascultation: Bilateral: diminished breath sounds, rhonchi (posterior bases) Cardiovascular: regular rate and rhythm Gastrointestinal: normoactive bowel sounds, soft, non-tender, non-distended Integumentary: other (weak LLExt) Extremities: no cyanosis, no edema, other (LLExt pulses diminished but leg warm) Neurologic: normal mental status, non-focal exam, pupils equal and round, motor strength normal and Psychiatric: mood appropriate, affect normal CBC and BMP: 06/21/16 07:00 06/21/16 04:30 ABG, PT/INR, D-dimer: ABG POC ABG pH 7.541 (7.35-7.45) H 06/21/16 06:01 POC ABG pCO2 21.1 (35-45) L 06/21/16 06:01 POC ABG pO2 108 (80-105) H 06/21/16 06:01 POC ABG HCO3 18.0 06/21/16 06:01 POC ABG Total CO2 19 06/21/16 06:01 POC ABG O2 Sat 99 06/21/16 06:01 PT/INR, D-dimer PT 21.3 Sec. (12.2-14.9) H 06/20/16 23:00 INR 1.85 (0.87-1.13) H 06/20/16 23:00 Abnormal lab findings: Abnormal Labs 06/13/16 06/13/16 06/13/16 09:45 09:45 09:45 WBC RBC Hgb POC Hgb Hct POC Hct MCH 25 L MCHC RDW 15.8 H Plt Count Lymph % (Auto) [place] % (Auto) 8.1 H Lymph # [place] # Seg Neutrophils % Seg Neuts % (Manual) Lymphocytes % (Manual) Monocytes % (Manual) Nucleated RBC % Seg Neutrophils # Seg Neutrophils # Man Monocytes # (Manual) PT INR APTT Fibrinogen 522 H Heparin Anti-Xa Level POC ABG pH POC ABG pCO2 POC ABG pO2 POC Potassium POC Chloride Sodium Potassium Chloride Carbon Dioxide POC BUN BUN Glucose POC Glucose Calcium 10.3 H Magnesium Crossmatch 06/13/16 06/13/16 06/13/16 09:45 20:14 20:15 WBC RBC Hgb POC Hgb Hct POC Hct MCH MCHC RDW Plt Count Lymph % (Auto) [place] % (Auto) Lymph # [place] # Seg Neutrophils % Seg Neuts % (Manual) Lymphocytes % (Manual) Monocytes % (Manual) Nucleated RBC % Seg Neutrophils # Seg Neutrophils # Man Monocytes # (Manual) PT INR APTT 103.8 H* Fibrinogen Heparin Anti-Xa Level 0.72 H POC ABG pH POC ABG pCO2 POC ABG pO2 POC Potassium POC Chloride Sodium Potassium Chloride Carbon Dioxide POC BUN BUN Glucose POC Glucose Calcium Magnesium Crossmatch See Detail 06/14/16 06/14/16 06/14/16 07:44 10:18 19:09 WBC RBC Hgb POC Hgb Hct POC Hct MCH 26 L MCHC RDW 15.8 H Plt Count Lymph % (Auto) [place] % (Auto) 9.1 H Lymph # [place] # Seg Neutrophils % Seg Neuts % (Manual) Lymphocytes % (Manual) Monocytes % (Manual) Nucleated RBC % Seg Neutrophils # Seg Neutrophils # Man Monocytes # (Manual) PT INR APTT Fibrinogen Heparin Anti-Xa Level 0.76 H POC ABG pH POC ABG pCO2 POC ABG pO2 POC Potassium POC Chloride Sodium Potassium Chloride Carbon Dioxide POC BUN BUN Glucose POC Glucose 106 H Calcium Magnesium Crossmatch 06/15/16 06/15/16 06/15/16 04:43 04:43 22:49 WBC RBC Hgb 9.2 L POC Hgb Hct 28.4 L POC Hct MCH MCHC RDW Plt Count Lymph % (Auto) [place] % (Auto) Lymph # [place] # Seg Neutrophils % Seg Neuts % (Manual) Lymphocytes % (Manual) Monocytes % (Manual) Nucleated RBC % Seg Neutrophils # Seg Neutrophils # Man Monocytes # (Manual) PT INR APTT Fibrinogen Heparin Anti-Xa Level 0.85 H POC ABG pH POC ABG pCO2 POC ABG pO2 POC Potassium POC Chloride Sodium Potassium Chloride Carbon Dioxide POC BUN BUN Glucose POC Glucose 134 H Calcium Magnesium Crossmatch 06/16/16 06/16/16 06/16/16 08:55 08:55 14:21 WBC RBC Hgb POC Hgb 5.8 L Hct POC Hct 17 L MCH MCHC RDW Plt Count Lymph % (Auto) [place] % (Auto) Lymph # [place] # Seg Neutrophils % Seg Neuts % (Manual) Lymphocytes % (Manual) Monocytes % (Manual) Nucleated RBC % Seg Neutrophils # Seg Neutrophils # Man Monocytes # (Manual) PT INR APTT 20.0 L Fibrinogen Heparin Anti-Xa Level POC ABG pH POC ABG pCO2 POC ABG pO2 POC Potassium 2.9 L POC Chloride Sodium Potassium Chloride Carbon Dioxide POC BUN 7 L BUN Glucose POC Glucose 249 H Calcium Magnesium Crossmatch See Detail 06/16/16 06/16/16 06/16/16 16:55 17:41 17:48 WBC RBC Hgb POC Hgb 8.8 L Hct POC Hct 26 L < 15 L MCH MCHC RDW Plt Count Lymph % (Auto) [place] % (Auto) Lymph # [place] # Seg Neutrophils % Seg Neuts % (Manual) Lymphocytes % (Manual) Monocytes % (Manual) Nucleated RBC % Seg Neutrophils # Seg Neutrophils # Man Monocytes # (Manual) PT INR APTT Fibrinogen Heparin Anti-Xa Level POC ABG pH 7.031 L POC ABG pCO2 POC ABG pO2 475 H POC Potassium 3.2 L POC Chloride 112 H 114 H Sodium Potassium Chloride Carbon Dioxide POC BUN 7 L 7 L BUN Glucose POC Glucose 203 H 291 H Calcium Magnesium Crossmatch 06/16/16 06/16/16 06/16/16 18:07 19:09 20:10 WBC 15.8 H RBC Hgb POC Hgb 6.5 L Hct POC Hct 19 L MCH MCHC RDW Plt Count 38 L Lymph % (Auto) 5.9 L [place] % (Auto) 9.3 H Lymph # 0.9 L [place] # 1.5 H Seg Neutrophils % 84.6 H Seg Neuts % (Manual) Lymphocytes % (Manual) Monocytes % (Manual) Nucleated RBC % Seg Neutrophils # 13.3 H Seg Neutrophils # Man Monocytes # (Manual) PT INR APTT Fibrinogen Heparin Anti-Xa Level POC ABG pH POC ABG pCO2 POC ABG pO2 POC Potassium POC Chloride 113 H Sodium Potassium Chloride Carbon Dioxide POC BUN 7 L BUN Glucose POC Glucose 263 H 231 H Calcium Magnesium Crossmatch 06/16/16 06/16/16 06/16/16 20:10 20:18 21:10 WBC RBC Hgb POC Hgb Hct POC Hct MCH MCHC RDW Plt Count Lymph % (Auto) [place] % (Auto) Lymph # [place] # Seg Neutrophils % Seg Neuts % (Manual) Lymphocytes % (Manual) Monocytes % (Manual) Nucleated RBC % Seg Neutrophils # Seg Neutrophils # Man Monocytes # (Manual) PT INR APTT Fibrinogen Heparin Anti-Xa Level POC ABG pH 7.236 L 7.280 L POC ABG pCO2 POC ABG pO2 139 H 145 H POC Potassium POC Chloride Sodium Potassium 3.4 L Chloride 114.5 H Carbon Dioxide 17 L D POC BUN BUN Glucose 188 H POC Glucose Calcium 6.1 L D Magnesium Crossmatch 06/16/16 06/17/16 06/17/16 22:53 04:48 05:35 WBC RBC Hgb POC Hgb Hct POC Hct MCH MCHC RDW Plt Count Lymph % (Auto) [place] % (Auto) Lymph # [place] # Seg Neutrophils % Seg Neuts % (Manual) Lymphocytes % (Manual) Monocytes % (Manual) Nucleated RBC % Seg Neutrophils # Seg Neutrophils # Man Monocytes # (Manual) PT INR APTT Fibrinogen Heparin Anti-Xa Level POC ABG pH POC ABG pCO2 33.9 L 22.2 L POC ABG pO2 152 H 154 H POC Potassium POC Chloride Sodium 150 H Potassium 3.4 L Chloride 114.2 H Carbon Dioxide 16 L POC BUN BUN Glucose 221 H POC Glucose Calcium 7.6 L D Magnesium Crossmatch 06/17/16 06/18/16 06/18/16 09:22 07:26 08:25 WBC 20.3 H RBC 3.41 L Hgb 9.9 L POC Hgb Hct 29.7 L POC Hct MCH MCHC RDW Plt Count Lymph % (Auto) [place] % (Auto) Lymph # [place] # Seg Neutrophils % Seg Neuts % (Manual) 81.0 H Lymphocytes % (Manual) 6.0 L Monocytes % (Manual) 12.0 H Nucleated RBC % Seg Neutrophils # Seg Neutrophils # Man 16.4 H Monocytes # (Manual) 2.4 H PT INR APTT Fibrinogen Heparin Anti-Xa Level POC ABG pH POC ABG pCO2 POC ABG pO2 POC Potassium POC Chloride Sodium Potassium 3.1 L Chloride Carbon Dioxide POC BUN BUN Glucose 136 H POC Glucose 141 H Calcium 7.5 L Magnesium Crossmatch 06/18/16 06/18/16 06/18/16 08:25 11:09 19:40 WBC RBC Hgb 6.5 L D POC Hgb Hct 19.3 L* D POC Hct MCH MCHC RDW Plt Count 131 L Lymph % (Auto) [place] % (Auto) Lymph # [place] # Seg Neutrophils % Seg Neuts % (Manual) Lymphocytes % (Manual) Monocytes % (Manual) Nucleated RBC % Seg Neutrophils # Seg Neutrophils # Man Monocytes # (Manual) PT INR APTT Fibrinogen Heparin Anti-Xa Level POC ABG pH 7.490 H POC ABG pCO2 POC ABG pO2 131 H POC Potassium POC Chloride Sodium Potassium Chloride Carbon Dioxide POC BUN BUN Glucose POC Glucose 125 H Calcium Magnesium Crossmatch 06/18/16 06/19/16 06/19/16 21:10 07:07 07:28 WBC 13.6 H RBC 2.17 L Hgb 6.5 L POC Hgb Hct 18.8 L* POC Hct MCH MCHC 35 H RDW Plt Count 131 L Lymph % (Auto) 10.1 L [place] % (Auto) 9.3 H Lymph # [place] # 1.3 H Seg Neutrophils % 79.7 H Seg Neuts % (Manual) Lymphocytes % (Manual) Monocytes % (Manual) Nucleated RBC % Seg Neutrophils # 10.8 H Seg Neutrophils # Man Monocytes # (Manual) PT INR APTT Fibrinogen Heparin Anti-Xa Level 0.75 H POC ABG pH POC ABG pCO2 POC ABG pO2 POC Potassium POC Chloride Sodium Potassium 3.5 L Chloride Carbon Dioxide POC BUN BUN Glucose 104 H POC Glucose Calcium 7.6 L Magnesium 1.4 L Crossmatch 06/20/16 06/20/16 06/20/16 04:15 18:15 18:15 WBC 16.6 H RBC 1.19 L Hgb 9.2 L 3.5 L* D POC Hgb Hct 27.5 L D 11.0 L* D POC Hct MCH MCHC RDW Plt Count 138 L Lymph % (Auto) [place] % (Auto) Lymph # [place] # Seg Neutrophils % Seg Neuts % (Manual) Lymphocytes % (Manual) Monocytes % (Manual) Nucleated RBC % Seg Neutrophils # Seg Neutrophils # Man Monocytes # (Manual) PT INR APTT Fibrinogen Heparin Anti-Xa Level POC ABG pH POC ABG pCO2 POC ABG pO2 POC Potassium POC Chloride Sodium 146 H Potassium Chloride Carbon Dioxide 14 L D POC BUN BUN Glucose 31 L* POC Glucose Calcium 6.7 L Magnesium Crossmatch 06/20/16 06/20/16 06/20/16 18:15 19:33 19:36 WBC RBC Hgb POC Hgb Hct POC Hct MCH MCHC RDW Plt Count Lymph % (Auto) [place] % (Auto) Lymph # [place] # Seg Neutrophils % Seg Neuts % (Manual) Lymphocytes % (Manual) Monocytes % (Manual) Nucleated RBC % Seg Neutrophils # Seg Neutrophils # Man Monocytes # (Manual) PT INR APTT Fibrinogen Heparin Anti-Xa Level POC ABG pH POC ABG pCO2 26.3 L POC ABG pO2 394 H POC Potassium POC Chloride Sodium Potassium Chloride Carbon Dioxide POC BUN BUN Glucose POC Glucose 212 H Calcium Magnesium Crossmatch See Detail 06/20/16 06/20/16 06/21/16 22:01 23:00 00:35 WBC RBC Hgb POC Hgb Hct POC Hct MCH MCHC RDW Plt Count Lymph % (Auto) [place] % (Auto) Lymph # [place] # Seg Neutrophils % Seg Neuts % (Manual) Lymphocytes % (Manual) Monocytes % (Manual) Nucleated RBC % Seg Neutrophils # Seg Neutrophils # Man Monocytes # (Manual) PT 21.3 H INR 1.85 H APTT 48.4 H Fibrinogen Heparin Anti-Xa Level POC ABG pH POC ABG pCO2 POC ABG pO2 POC Potassium POC Chloride Sodium Potassium Chloride Carbon Dioxide POC BUN BUN Glucose POC Glucose 149 H 147 H Calcium Magnesium Crossmatch 06/21/16 06/21/16 06/21/16 04:30 04:30 06:01 WBC 21.7 H RBC 3.58 L Hgb POC Hgb Hct POC Hct MCH MCHC 35 H RDW Plt Count 116 L Lymph % (Auto) [place] % (Auto) Lymph # [place] # Seg Neutrophils % Seg Neuts % (Manual) Lymphocytes % (Manual) 8.0 L Monocytes % (Manual) Nucleated RBC % 3.0 H Seg Neutrophils # Seg Neutrophils # Man 13.7 H Monocytes # (Manual) 1.5 H PT INR APTT Fibrinogen Heparin Anti-Xa Level POC ABG pH 7.541 H POC ABG pCO2 21.1 L POC ABG pO2 108 H POC Potassium POC Chloride Sodium Potassium 3.0 L Chloride 110.3 H Carbon Dioxide 18 L POC BUN BUN 18 H Glucose 141 H POC Glucose Calcium 6.4 L Magnesium Crossmatch 06/21/16 07:00 WBC RBC Hgb 8.3 L POC Hgb Hct 24.7 L D POC Hct MCH MCHC RDW Plt Count Lymph % (Auto) [place] % (Auto) Lymph # [place] # Seg Neutrophils % Seg Neuts % (Manual) Lymphocytes % (Manual) Monocytes % (Manual) Nucleated RBC % Seg Neutrophils # Seg Neutrophils # Man Monocytes # (Manual) PT INR APTT Fibrinogen Heparin Anti-Xa Level POC ABG pH POC ABG pCO2 POC ABG pO2 POC Potassium POC Chloride Sodium Potassium Chloride Carbon Dioxide POC BUN BUN Glucose POC Glucose Calcium Magnesium Crossmatch Chest x-ray: report reviewed (ET tube in place, left lower lobe infiltrate.), image reviewed
--- NOTE | 2016-06-21 13:38 | Progress Note ---
Assessment and Plan The patient is status post cardiac arrest and upper GI bleeding. We'll continue the posterior border medically and wean the pressors as tolerated. We' ll wean vent support as tolerated. Will consult gastroenterology for evaluation of her GI bleeding. We'll hold heparin until cleared by GI. Protonix has been ordered for the GI bleeding. Subjective Date of service: 06/21/16 Principal diagnosis: Peripheral Vascular Disease; Acute Limb Ischemia Interval history: The patient is status post percutaneous thrombectomy of her left femoropopliteal graft yesterday. After the intervention she had a heart attack arrest requiring 1 round of CPR. Overnight she has been on pressors and require multiple transfusions of packed red blood cells. She was noted by the nurse to have blood in her bowel movement and this morning vomited a significant amount of coffee-ground emesis as well as bright red blood. She has otherwise been fairly stable. She is still intubated but much more alert and answering questions this morning. Objective - Constitutional Vitals: Vital Signs - 12hr 06/21/16 06/21/16 06/21/16 01:45 02:01 02:07 Temperature Pulse Rate 111 H 137 H 120 H Pulse Rate [ Left From Monitor] Respiratory 14 25 H 24 Rate Blood Pressure 111/55 83/65 79/64 O2 Sat by Pulse 100 100 Oximetry 06/21/16 06/21/16 06/21/16 02:08 02:15 02:31 Temperature 97.9 F Pulse Rate 121 H 117 H Pulse Rate [ Left From Monitor] Respiratory 17 19 Rate Blood Pressure 79/64 108/91 O2 Sat by Pulse 100 Oximetry 06/21/16 06/21/16 06/21/16 02:45 03:01 03:15 Temperature Pulse Rate 111 H 103 H 95 H Pulse Rate [ Left From Monitor] Respiratory 17 23 24 Rate Blood Pressure 108/91 101/69 101/69 O2 Sat by Pulse 100 Oximetry 06/21/16 06/21/16 06/21/16 03:31 03:37 03:45 Temperature Pulse Rate 96 H 101 H 105 H Pulse Rate [ Left From Monitor] Respiratory 22 15 12 Rate Blood Pressure 101/69 110/60 110/60 O2 Sat by Pulse Oximetry 06/21/16 06/21/16 06/21/16 03:50 04:00 04:01 Temperature Pulse Rate 101 H 110 H Pulse Rate [ 110 H Left From Monitor] Respiratory 17 20 Rate Blood Pressure 110/60 104/55 O2 Sat by Pulse 100 Oximetry 06/21/16 06/21/16 06/21/16 04:15 04:30 04:31 Temperature Pulse Rate 105 H 110 H 109 H Pulse Rate [ Left From Monitor] Respiratory 19 21 25 H Rate Blood Pressure 110/60 104/55 110/60 O2 Sat by Pulse 88 Oximetry 06/21/16 06/21/16 06/21/16 04:41 04:45 04:51 Temperature 97.3 F L Pulse Rate 108 H 112 H Pulse Rate [ Left From Monitor] Respiratory 25 H Rate Blood Pressure 104/55 124/90 O2 Sat by Pulse 100 Oximetry 06/21/16 06/21/16 06/21/16 05:01 05:15 05:31 Temperature Pulse Rate 116 H 123 H 130 H Pulse Rate [ Left From Monitor] Respiratory 19 16 24 Rate Blood Pressure 124/90 124/90 123/76 O2 Sat by Pulse 100 100 100 Oximetry 06/21/16 06/21/16 06/21/16 05:45 06:01 06:15 Temperature Pulse Rate 138 H 136 H 130 H Pulse Rate [ Left From Monitor] Respiratory 25 H 22 20 Rate Blood Pressure 123/76 81/58 81/58 O2 Sat by Pulse 100 100 100 Oximetry 06/21/16 06/21/16 06/21/16 06:30 06:45 07:01 Temperature Pulse Rate 131 H 126 H 129 H Pulse Rate [ Left From Monitor] Respiratory 15 23 15 Rate Blood Pressure 121/67 121/67 121/67 O2 Sat by Pulse 100 100 Oximetry 06/21/16 06/21/16 06/21/16 07:15 07:30 07:45 Temperature Pulse Rate 128 H 127 H 123 H Pulse Rate [ Left From Monitor] Respiratory 19 21 19 Rate Blood Pressure 116/57 86/53 105/60 O2 Sat by Pulse 100 100 100 Oximetry 06/21/16 06/21/16 06/21/16 08:00 08:01 08:15 Temperature 99 F Pulse Rate 119 H 122 H Pulse Rate [ Left From Monitor] Respiratory 20 20 14 Rate Blood Pressure 128/59 128/59 O2 Sat by Pulse 100 100 100 Oximetry 06/21/16 06/21/16 06/21/16 08:30 08:45 09:01 Temperature Pulse Rate 119 H 119 H 119 H Pulse Rate [ Left From Monitor] Respiratory 22 20 21 Rate Blood Pressure 134/71 134/71 118/67 O2 Sat by Pulse 100 100 100 Oximetry 06/21/16 06/21/16 06/21/16 09:15 09:30 09:45 Temperature Pulse Rate 118 H 117 H 115 H Pulse Rate [ Left From Monitor] Respiratory 19 21 19 Rate Blood Pressure 118/67 138/80 138/80 O2 Sat by Pulse 100 100 100 Oximetry 06/21/16 06/21/16 06/21/16 10:00 10:03 10:06 Temperature 99.0 F Pulse Rate 113 H 109 H 123 H Pulse Rate [ Left From Monitor] Respiratory 22 22 20 Rate Blood Pressure 136/78 136/78 87/52 O2 Sat by Pulse 100 100 Oximetry 06/21/16 12:00 Temperature 98.7 F Pulse Rate Pulse Rate [ Left From Monitor] Respiratory Rate Blood Pressure O2 Sat by Pulse Oximetry General appearance: Present: no acute distress, other (patient is on the ventilator) - Neck Neck: supple - Cardiovascular Rhythm: other (tachycardia) Extremity abnormal: other (swelling of the left thigh is stable. Her incisions are clean dry and intact. She has no distal signals bilaterally secondary to pressors.) - Gastrointestinal General gastrointestinal: Present: soft, non-tender, non-distended - Labs CBC & Chem 7: 06/21/16 07:00 06/21/16 04:30 Labs: Abnormal lab results 06/20/16 06/20/16 06/20/16 Range/Units 18:15 18:15 18:15 WBC 16.6 H (4.5-11.0) K/mm3 RBC 1.19 L (3.65-5.03) M/mm3 Hgb 3.5 L* D (10.1-14.3) gm/dl Hct 11.0 L* D (30.3-42.9) % MCHC (30-34) % Plt Count 138 L (140-440) K/mm3 Lymphocytes % (Manual) (13.4-35.0) % Nucleated RBC % (0.0-0.9) % Seg Neutrophils # Man (1.8-7.7) K/mm3 Monocytes # (Manual) (0.0-0.8) K/mm3 PT (12.2-14.9) Sec. INR (0.87-1.13) APTT (24.2-36.6) Sec. POC ABG pH (7.35-7.45) POC ABG pCO2 (35-45) POC ABG pO2 (80-105) Sodium 146 H (137-145) mmol/L Potassium (3.6-5.0) mmol/L Chloride (98-107) mmol/L Carbon Dioxide 14 L D (22-30) mmol/L BUN (7-17) mg/dL Glucose 31 L* (65-100) mg/dL POC Glucose (70-105) Calcium 6.7 L (8.4-10.2) mg/dL Crossmatch See Detail 06/20/16 06/20/16 06/20/16 Range/Units 19:33 19:36 22:01 WBC (4.5-11.0) K/mm3 RBC (3.65-5.03) M/mm3 Hgb (10.1-14.3) gm/dl Hct (30.3-42.9) % MCHC (30-34) % Plt Count (140-440) K/mm3 Lymphocytes % (Manual) (13.4-35.0) % Nucleated RBC % (0.0-0.9) % Seg Neutrophils # Man (1.8-7.7) K/mm3 Monocytes # (Manual) (0.0-0.8) K/mm3 PT (12.2-14.9) Sec. INR (0.87-1.13) APTT (24.2-36.6) Sec. POC ABG pH (7.35-7.45) POC ABG pCO2 26.3 L (35-45) POC ABG pO2 394 H (80-105) Sodium (137-145) mmol/L Potassium (3.6-5.0) mmol/L Chloride (98-107) mmol/L Carbon Dioxide (22-30) mmol/L BUN (7-17) mg/dL Glucose (65-100) mg/dL POC Glucose 212 H 149 H (70-105) Calcium (8.4-10.2) mg/dL Crossmatch 06/20/16 06/21/16 06/21/16 Range/Units 23:00 00:35 04:30 WBC 21.7 H (4.5-11.0) K/mm3 RBC 3.58 L (3.65-5.03) M/mm3 Hgb (10.1-14.3) gm/dl Hct (30.3-42.9) % MCHC 35 H (30-34) % Plt Count 116 L (140-440) K/mm3 Lymphocytes % (Manual) 8.0 L (13.4-35.0) % Nucleated RBC % 3.0 H (0.0-0.9) % Seg Neutrophils # Man 13.7 H (1.8-7.7) K/mm3 Monocytes # (Manual) 1.5 H (0.0-0.8) K/mm3 PT 21.3 H (12.2-14.9) Sec. INR 1.85 H (0.87-1.13) APTT 48.4 H (24.2-36.6) Sec. POC ABG pH (7.35-7.45) POC ABG pCO2 (35-45) POC ABG pO2 (80-105) Sodium (137-145) mmol/L Potassium (3.6-5.0) mmol/L Chloride (98-107) mmol/L Carbon Dioxide (22-30) mmol/L BUN (7-17) mg/dL Glucose (65-100) mg/dL POC Glucose 147 H (70-105) Calcium (8.4-10.2) mg/dL Crossmatch 06/21/16 06/21/16 06/21/16 Range/Units 04:30 06:01 07:00 WBC (4.5-11.0) K/mm3 RBC (3.65-5.03) M/mm3 Hgb 8.3 L (10.1-14.3) gm/dl Hct 24.7 L D (30.3-42.9) % MCHC (30-34) % Plt Count (140-440) K/mm3 Lymphocytes % (Manual) (13.4-35.0) % Nucleated RBC % (0.0-0.9) % Seg Neutrophils # Man (1.8-7.7) K/mm3 Monocytes # (Manual) (0.0-0.8) K/mm3 PT (12.2-14.9) Sec. INR (0.87-1.13) APTT (24.2-36.6) Sec. POC ABG pH 7.541 H (7.35-7.45) POC ABG pCO2 21.1 L (35-45) POC ABG pO2 108 H (80-105) Sodium (137-145) mmol/L Potassium 3.0 L (3.6-5.0) mmol/L Chloride 110.3 H (98-107) mmol/L Carbon Dioxide 18 L (22-30) mmol/L BUN 18 H (7-17) mg/dL Glucose 141 H (65-100) mg/dL POC Glucose (70-105) Calcium 6.4 L (8.4-10.2) mg/dL Crossmatch
--- NOTE | 2016-06-21 16:36 | Gastroenterology Consultation ---
History of Present Illness - Reason for Consult Consult date: 06/21/16 Coffee ground emesis Requesting physician: ELSA JEREZ - History of Present Illness - The patient is a 55 yo female admitted with severe PVD. She has undergone therapeutic intervention by Vascular (see notes) twice this admission, of the left lower extremity. After the procedure yesterday, she coded, but was resuscitated, and has been in the ICU on the vent since then. She is stable today, on minimal pressor support; her mental status (per notes) is improved and she is interactive during the interview. She had emesis this AM of coffee grounds, and an NG tube was placed; since then about 200cc of bilious material has been suctioned; there was one dark stool this AM, but none since. She has no hx of PUD per the sisters, and the patient denies abdominal pain. There has been no recent upper endoscopy. Of note, she was on heparin, but now is on ASA and plavix. The L leg is considered still viable. Past History Past Medical History: diabetes, hypertension, PVD, other (Obesity) Past Surgical History: Other (Vascular interventions as noted) Social history: denies: alcohol abuse, prescription drug abuse Family history: diabetes Medications and Allergies Allergies Allergy/AdvReac Type Severity Reaction Status Date / Time No Known Allergies Allergy Verified 01/24/15 14:51 Home Medications Medication Instructions Recorded Confirmed Last Taken Type Aspirin EC [Aspirin Enteric Coated 81 mg PO QDAY 01/25/15 06/13/16 06/13/16 History TAB] Atenolol/Chlorthalidone 1 each PO DAILY 01/25/15 06/13/16 06/13/16 History [Atenolol-Chlorthalidone 50-25] Clopidogrel [Plavix] 75 mg PO QDAY 01/25/15 06/13/16 06/13/16 History Ergocalciferol [Vitamin D2] 1 cap PO QWEEK 01/25/15 06/13/16 06/09/16 History Gabapentin [Neurontin] 300 mg PO Q8H 01/25/15 06/13/16 06/13/16 History Potassium Chloride 10 meq PO QDAY 01/25/15 06/13/16 06/13/16 History Active Meds: Active Medications Aspirin (Halfprin Ec) 81 mg PO QDAY ANNA Last Admin: 06/19/16 16:47 Dose: 81 mg Atenolol (Tenormin) 50 mg PO QDAY ANNA Last Admin: 06/18/16 18:21 Dose: 50 mg Chlorthalidone (Thalitone) 25 mg PO QDAY ANNA Last Admin: 06/18/16 20:05 Dose: Not Given Clopidogrel Bisulfate (Plavix) 75 mg PO QDAY ANNA Last Admin: 06/19/16 16:48 Dose: 75 mg Ergocalciferol (Vitamin D2) 50,000 unit PO Mo ANNA Gabapentin (Neurontin) 300 mg PO Q8H ANNA Last Admin: 06/21/16 00:23 Dose: Not Given Haloperidol Lactate (Haldol) 5 mg IV Q6H PRN PRN Reason: Agitation Hydromorphone/Sodium Chloride (Dilaudid Automated Weaver 6mg/30ml) 0 mg IV DIRECT ANNA PRN Reason: Protocol Last Admin: 06/18/16 20:27 Dose: 1 cartstart Hydrophilic Ointment (Vaseline Lip Therapy) 1 applic TP Q2H PRN PRN Reason: Dry Lips Fentanyl Citrate (Fentanyl Drip Premix) 100 mls @ 3.89 mls/hr IV TITR ANNA; 1 MCG/KG/HR PRN Reason: Protocol Norepinephrine (Levophed Drip 4 Mg/Ns 250 Ml) 250 mls @ 56.25 mls/hr IV TITR ANNA; 15 MCG/MIN PRN Reason: Protocol Last Admin: 06/21/16 12:21 Dose: 56.25 mls/hr Midazolam HCl (Versed/Ns 100mg/100ml) 100 mls @ 2 mls/hr IV TITR ANNA; 2 MG/HR PRN Reason: Protocol Sodium Chloride (Nacl 0.9% 1000 Ml) 1,000 mls @ 75 mls/hr IV DIRECT ANNA Last Admin: 06/21/16 12:19 Dose: 75 mls/hr Vasopressin 20 unit/ Sodium (Chloride) 101 mls @ 12.12 mls/hr IV TITR ANNA; 0.04 UNITS/MIN PRN Reason: Protocol Last Titration: 06/21/16 12:15 Dose: 0.02 units/min Sodium Chloride (Nacl 0.9% 1000 Ml) 1,000 mls @ 999 mls/hr IV DIRECT ANNA Last Admin: 06/21/16 07:50 Dose: 999 mls/hr Piperacillin Sod/Tazobactam Sod (Zosyn/Ns 4.5gm/100ml) 100 mls @ 200 mls/hr IV Q8HR ANNA PRN Reason: Protocol Multi-Ingred Cream/Lotion/Oil/Oint (Artificial Tears Ophth Oint) 1 applic OU Q4H PRN PRN Reason: Dry Eye(s) Naloxone HCl (Narcan 0.4 Mg/1 Ml) 0.1 mg IV Q2MIN PRN PRN Reason: Res Rate </= 8 or 02 SAT < 92% Ondansetron HCl (Zofran) 4 mg IV Q8H PRN PRN Reason: Nausea And Vomiting Last Admin: 06/16/16 22:21 Dose: 4 mg Pantoprazole Sodium (Protonix) 40 mg IV BID ANNA Potassium Chloride (K-Dur) 10 meq PO QDAY ANNA Last Admin: 06/18/16 20:04 Dose: Not Given Review of Systems - Review of Systems ROS unobtainable: due to endotracheal tube Exam - Constitutional Vital Signs: Temp Pulse Resp BP Pulse Ox 98.7 F 121 H 20 145/77 100 06/21/16 12:00 06/21/16 12:30 06/21/16 10:06 06/21/16 12:30 06/21/16 12:30 General appearance: no acute distress (Awake and alert on ventilator) - EENT Eyes: PERRL, EOM intact ENT: hearing intact, other (ETT tube in mouth) - Neck Neck: supple, normal ROM - Respiratory Respiratory effort: normal Respiratory: bilateral: CTA - Cardiovascular Rhythm: regular Heart Sounds: Present: S1 & S2 Extremities: abnormal (Severe swelling and bruising L thigh; R thigh with femoral catheter and no bleeding) - Gastrointestinal General gastrointestinal: Present: soft, non-tender, non-distended, other (NG tube shows bilious material without blood) - Integumentary Integumentary: Present: clear, warm, dry - Neurologic Neurological: alert and oriented x3 - Labs CBC & Chem 7: 06/21/16 07:00 06/21/16 04:30 Lab Results: Laboratory Results - last 24 hr 06/20/16 06/20/16 06/20/16 18:15 18:15 18:15 WBC 16.6 H RBC 1.19 L Hgb 3.5 L* D Hct 11.0 L* D MCV 93 D MCH 30 MCHC 32 RDW 15.0 Plt Count 138 L Add Manual Diff Total Counted Seg Neuts % (Manual) Band Neutrophils % Lymphocytes % (Manual) Reactive Lymphs % (Man) Monocytes % (Manual) Eosinophils % (Manual) Basophils % (Manual) Metamyelocytes % Myelocytes % Promyelocytes % Blast Cells % Nucleated RBC % Seg Neutrophils # Man Band Neutrophils # Lymphocytes # (Manual) Abs React Lymphs (Man) Monocytes # (Manual) Eosinophils # (Manual) Basophils # (Manual) Metamyelocytes # Myelocytes # Promyelocytes # Blast Cells # WBC Morphology Hypersegmented Neuts Hyposegmented Neuts Hypogranular Neuts Smudge Cells Toxic Granulation Toxic Vacuolation Dohle Bodies Pelger-Huet Anomaly Mary Rods Platelet Estimate Clumped Platelets Plt Clumps, EDTA Large Platelets Giant Platelets Platelet Satelliting Plt Morphology Comment RBC Morphology Dimorphic RBCs Polychromasia Hypochromasia Poikilocytosis Anisocytosis Microcytosis Macrocytosis Spherocytes Pappenheimer Bodies Sickle Cells Target Cells Tear Drop Cells Ovalocytes Helmet Cells [place] Bodies [place]iles Rings Padmini Cells Bite Cells Crenated Cell Elliptocytes Acanthocytes (Spur) Rouleaux Hemoglobin C Crystals Schistocytes Malaria parasites Sean Bodies Hem Pathologist Commnt PT INR APTT Heparin Anti-Xa Level POC ABG pH POC ABG pCO2 POC ABG pO2 POC ABG HCO3 POC ABG Total CO2 POC ABG O2 Sat POC ABG Base Excess FiO2 Sodium 146 H Potassium 3.7 Chloride 102.7 Carbon Dioxide 14 L D Anion Gap 33 BUN 10 Creatinine 0.9 Estimated GFR > 60 BUN/Creatinine Ratio 11.11 Glucose 31 L* POC Glucose Calcium 6.7 L Blood Type O POSITIVE Antibody Screen Negative Crossmatch See Detail 06/20/16 06/20/16 06/20/16 19:33 19:36 20:45 WBC RBC Hgb 11.2 D Hct 32.8 D MCV MCH MCHC RDW Plt Count Add Manual Diff Total Counted Seg Neuts % (Manual) Band Neutrophils % Lymphocytes % (Manual) Reactive Lymphs % (Man) Monocytes % (Manual) Eosinophils % (Manual) Basophils % (Manual) Metamyelocytes % Myelocytes % Promyelocytes % Blast Cells % Nucleated RBC % Seg Neutrophils # Man Band Neutrophils # Lymphocytes # (Manual) Abs React Lymphs (Man) Monocytes # (Manual) Eosinophils # (Manual) Basophils # (Manual) Metamyelocytes # Myelocytes # Promyelocytes # Blast Cells # WBC Morphology Hypersegmented Neuts Hyposegmented Neuts Hypogranular Neuts Smudge Cells Toxic Granulation Toxic Vacuolation Dohle Bodies Pelger-Huet Anomaly Mary Rods Platelet Estimate Clumped Platelets Plt Clumps, EDTA Large Platelets Giant Platelets Platelet Satelliting Plt Morphology Comment RBC Morphology Dimorphic RBCs Polychromasia Hypochromasia Poikilocytosis Anisocytosis Microcytosis Macrocytosis Spherocytes Pappenheimer Bodies Sickle Cells Target Cells Tear Drop Cells Ovalocytes Helmet Cells [place] Bodies [place] Rings Padmini Cells Bite Cells Crenated Cell Elliptocytes Acanthocytes (Spur) Rouleaux Hemoglobin C Crystals Schistocytes Malaria parasites Sean Bodies Hem Pathologist Commnt PT INR APTT Heparin Anti-Xa Level POC ABG pH 7.367 POC ABG pCO2 26.3 L POC ABG pO2 394 H POC ABG HCO3 15.1 POC ABG Total CO2 16 POC ABG O2 Sat 100 POC ABG Base Excess -10 FiO2 100 Sodium Potassium Chloride Carbon Dioxide Anion Gap BUN Creatinine Estimated GFR BUN/Creatinine Ratio Glucose POC Glucose 212 H Calcium Blood Type Antibody Screen Crossmatch 06/20/16 06/20/16 06/21/16 22:01 23:00 00:35 WBC RBC Hgb Hct MCV MCH MCHC RDW Plt Count Add Manual Diff Total Counted Seg Neuts % (Manual) Band Neutrophils % Lymphocytes % (Manual) Reactive Lymphs % (Man) Monocytes % (Manual) Eosinophils % (Manual) Basophils % (Manual) Metamyelocytes % Myelocytes % Promyelocytes % Blast Cells % Nucleated RBC % Seg Neutrophils # Man Band Neutrophils # Lymphocytes # (Manual) Abs React Lymphs (Man) Monocytes # (Manual) Eosinophils # (Manual) Basophils # (Manual) Metamyelocytes # Myelocytes # Promyelocytes # Blast Cells # WBC Morphology Hypersegmented Neuts Hyposegmented Neuts Hypogranular Neuts Smudge Cells Toxic Granulation Toxic Vacuolation Dohle Bodies Pelger-Huet Anomaly Mary Rods Platelet Estimate Clumped Platelets Plt Clumps, EDTA Large Platelets Giant Platelets Platelet Satelliting Plt Morphology Comment RBC Morphology Dimorphic RBCs Polychromasia Hypochromasia Poikilocytosis Anisocytosis Microcytosis Macrocytosis Spherocytes Pappenheimer Bodies Sickle Cells Target Cells Tear Drop Cells Ovalocytes Helmet Cells [place] Bodies [place] Rings Padmini Cells Bite Cells Crenated Cell Elliptocytes Acanthocytes (Spur) Rouleaux Hemoglobin C Crystals Schistocytes Malaria parasites Sean Bodies Hem Pathologist Commnt PT 21.3 H INR 1.85 H APTT 48.4 H Heparin Anti-Xa Level POC ABG pH POC ABG pCO2 POC ABG pO2 POC ABG HCO3 POC ABG Total CO2 POC ABG O2 Sat POC ABG Base Excess FiO2 Sodium Potassium Chloride Carbon Dioxide Anion Gap BUN Creatinine Estimated GFR BUN/Creatinine Ratio Glucose POC Glucose 149 H 147 H Calcium Blood Type Antibody Screen Crossmatch 06/21/16 06/21/16 06/21/16 02:35 04:30 04:30 WBC 21.7 H RBC 3.58 L Hgb 12.2 10.9 Hct 35.1 30.9 MCV 86 D MCH 31 MCHC 35 H RDW 14.3 Plt Count 116 L Add Manual Diff Complete Total Counted 100 Seg Neuts % (Manual) 63.0 Band Neutrophils % 22.0 Lymphocytes % (Manual) 8.0 L Reactive Lymphs % (Man) 0 Monocytes % (Manual) 7.0 Eosinophils % (Manual) 0 Basophils % (Manual) 0 Metamyelocytes % 0 Myelocytes % 0 Promyelocytes % 0 Blast Cells % 0 Nucleated RBC % 3.0 H Seg Neutrophils # Man 13.7 H Band Neutrophils # 4.8 Lymphocytes # (Manual) 1.7 Abs React Lymphs (Man) 0.0 Monocytes # (Manual) 1.5 H Eosinophils # (Manual) 0.0 Basophils # (Manual) 0.0 Metamyelocytes # 0.0 Myelocytes # 0.0 Promyelocytes # 0.0 Blast Cells # 0.0 WBC Morphology Not Reportable Hypersegmented Neuts Not Reportable Hyposegmented Neuts Not Reportable Hypogranular Neuts Not Reportable Smudge Cells Not Reportable Toxic Granulation Not Reportable Toxic Vacuolation Not Reportable Dohle Bodies Not Reportable Pelger-Huet Anomaly Not Reportable Mary Rods Not Reportable Platelet Estimate Not Reportable Clumped Platelets Not Reportable Plt Clumps, EDTA Not Reportable Large Platelets Not Reportable Giant Platelets Not Reportable Platelet Satelliting Not Reportable Plt Morphology Comment Not Reportable RBC Morphology Not Reportable Dimorphic RBCs Not Reportable Polychromasia Not Reportable Hypochromasia Not Reportable Poikilocytosis Not Reportable Anisocytosis Few Microcytosis Not Reportable Macrocytosis Not Reportable Spherocytes Few Pappenheimer Bodies Not Reportable Sickle Cells Not Reportable Target Cells Not Reportable Tear Drop Cells Not Reportable Ovalocytes Not Reportable Helmet Cells Not Reportable [place] Bodies Not Reportable [place] Rings Not Reportable [place] Cells Not Reportable Bite Cells Not Reportable Crenated Cell Not Reportable Elliptocytes Not Reportable Acanthocytes (Spur) Not Reportable Rouleaux Not Reportable Hemoglobin C Crystals Not Reportable Schistocytes Not Reportable Malaria parasites Not Reportable Sean Bodies Not Reportable Hem Pathologist Commnt No PT INR APTT Heparin Anti-Xa Level 0.46 POC ABG pH POC ABG pCO2 POC ABG pO2 POC ABG HCO3 POC ABG Total CO2 POC ABG O2 Sat POC ABG Base Excess FiO2 Sodium Potassium Chloride Carbon Dioxide Anion Gap BUN Creatinine Estimated GFR BUN/Creatinine Ratio Glucose POC Glucose Calcium Blood Type Antibody Screen Crossmatch 06/21/16 06/21/16 06/21/16 04:30 06:01 07:00 WBC RBC Hgb 8.3 L Hct 24.7 L D MCV MCH MCHC RDW Plt Count Add Manual Diff Total Counted Seg Neuts % (Manual) Band Neutrophils % Lymphocytes % (Manual) Reactive Lymphs % (Man) Monocytes % (Manual) Eosinophils % (Manual) Basophils % (Manual) Metamyelocytes % Myelocytes % Promyelocytes % Blast Cells % Nucleated RBC % Seg Neutrophils # Man Band Neutrophils # Lymphocytes # (Manual) Abs React Lymphs (Man) Monocytes # (Manual) Eosinophils # (Manual) Basophils # (Manual) Metamyelocytes # Myelocytes # Promyelocytes # Blast Cells # WBC Morphology Hypersegmented Neuts Hyposegmented Neuts Hypogranular Neuts Smudge Cells Toxic Granulation Toxic Vacuolation Dohle Bodies Pelger-Huet Anomaly Mary Rods Platelet Estimate Clumped Platelets Plt Clumps, EDTA Large Platelets Giant Platelets Platelet Satelliting Plt Morphology Comment RBC Morphology Dimorphic RBCs Polychromasia Hypochromasia Poikilocytosis Anisocytosis Microcytosis Macrocytosis Spherocytes Pappenheimer Bodies Sickle Cells Target Cells Tear Drop Cells Ovalocytes Helmet Cells [place] Bodies [place] Rings Padmini Cells Bite Cells Crenated Cell Elliptocytes Acanthocytes (Spur) Rouleaux Hemoglobin C Crystals Schistocytes Malaria parasites Sean Bodies Hem Pathologist Commnt PT INR APTT Heparin Anti-Xa Level POC ABG pH 7.541 H POC ABG pCO2 21.1 L POC ABG pO2 108 H POC ABG HCO3 18.0 POC ABG Total CO2 19 POC ABG O2 Sat 99 POC ABG Base Excess -4 FiO2 40 Sodium 142 Potassium 3.0 L Chloride 110.3 H Carbon Dioxide 18 L Anion Gap 17 BUN 18 H Creatinine 1.2 Estimated GFR 56 BUN/Creatinine Ratio 15.00 Glucose 141 H POC Glucose Calcium 6.4 L Blood Type Antibody Screen Crossmatch Assessment and Plan - Patient Problems (1) Coffee ground emesis Current Visit: Yes Status: Acute Plan to address problem: - Acute anemia worrisome, but the patient has had a major vascular procedure, and I suspect femoral oozing accounts for some of this. - Will place on protonix IV, and stop pepcid. - The heparin is off (per vascular) and she is on ASA and plavix; will continue this for now given (per notes) severe PVD. - Upper endoscopy if significant GI bleeding noted.
[2016-06-21] MEDS: HALFPRIN EC PO SCH (17:16)
[2016-06-21] MEDS: VITAMIN D2 PO SCH (17:17)
[2016-06-21] MEDS: THALITONE PO SCH (17:17)
[2016-06-21] MEDS: PLAVIX PO SCH (17:17)
[2016-06-21] MEDS: TENORMIN PO SCH ×2 (17:18→17:19)
[2016-06-21] MEDS: PROTONIX IV SCH (22:39)
[2016-06-21] MEDS: ZOSYN/NS 4.5GM/100ML 100 ML IV SCH (22:39)
[2016-06-22] MEDS: NACL 0.9% 1000 ML 1,000 ML IV SCH (03:00)
[2016-06-22 06:00] LABS: Hematocrit 31.7 % (30.3-42.9); Hemoglobin 10.7 gm/dl (10.1-14.3); Mean Corpuscular HGB Conc 34 % (30-34); Mean Corpuscular Hemoglobin 30 pg (28-32); Mean Corpuscular Volume 90 fl (79-97); Platelet Count 129 K/mm3 (140-440); Red Blood Count 3.54 M/mm3 (3.65-5.03); Red Cell Distribution Width 15.2 % (13.2-15.2)
[2016-06-22 06:01] LABS: White Blood Count 20.6 K/mm3 (4.5-11.0)
[2016-06-22] MEDS: ZOSYN/NS 4.5GM/100ML 100 ML IV SCH ×2 (06:10→22:43)
[2016-06-22] MEDS: NEURONTIN PO SCH ×3 (06:13→22:47)
[2016-06-22 06:25] LABS: BUN/Creatinine Ratio 11.81; Calcium 6.3 mg/dL (8.4-10.2); Chloride 109.9 mmol/L (98-107); Potassium 4.4 mmol/L (3.6-5.0)
[2016-06-22 07:01] LABS: ISTAT Base Excess -12; ISTAT HCO3 13.3; ISTAT PCO2 21.9 (35-45); ISTAT PO2 118 (80-105); ISTAT SO2 99; ISTAT TCO2 14
[2016-06-22 07:53] LABS: Basophils % (Manual) 0 % (0.0-1.8); Blastocytes % (Manual) 0 %; Eosinophils % (Manual) 0 % (0.0-4.3)
[2016-06-22 07:54] LABS: Anisocytosis 2+
[2016-06-22 07:57] LABS: Diff Status Complete; Platelet Estimate Appears Decreased
[2016-06-22] MEDS ORDERED: SODIUM BICARBONATE IV ONE ×2 (08:00→08:30)
--- NOTE | 2016-06-22 09:07 | Progress Note ---
Assessment and Plan Patient's left lower extremity is well-perfused. Her right lower extremity is ischemic likely secondary to the previous pressor support and pre-existing peripheral vascular disease. She is now on a Protonix drip for possible GI bleeding and has had no further episodes of bleeding. We'll start a heparin drip to possibly treat any acute thrombosis of her right lower extremity. Decreased urine output with elevated creatinine and nephrology consult is pending. We will try to wean the vent as tolerated. Subjective Date of service: 06/22/16 Principal diagnosis: Peripheral Vascular Disease; Acute Limb Ischemia Interval history: The patient was weaned off of Levophed overnight. She has had no further episodes of bleeding and her hemoglobin has been stable. She remains on a ventilator but is extremely alert. Objective - Constitutional Vitals: Vital Signs - 12hr 06/21/16 06/21/16 06/21/16 21:15 21:31 21:45 Temperature Pulse Rate 118 H 120 H 115 H Pulse Rate [ Left From Monitor] Respiratory 20 22 22 Rate Blood Pressure 134/61 134/61 134/61 O2 Sat by Pulse 100 100 100 Oximetry 06/21/16 06/21/16 06/21/16 22:00 22:01 22:15 Temperature Pulse Rate 116 H 108 H 120 H Pulse Rate [ Left From Monitor] Respiratory 22 20 Rate Blood Pressure 134/61 134/61 O2 Sat by Pulse 100 100 Oximetry 06/21/16 06/21/16 06/21/16 22:31 22:45 23:01 Temperature Pulse Rate 122 H 124 H 123 H Pulse Rate [ Left From Monitor] Respiratory 23 25 H 21 Rate Blood Pressure 134/61 134/61 152/71 O2 Sat by Pulse 100 100 100 Oximetry 06/21/16 06/21/16 06/21/16 23:15 23:25 23:31 Temperature Pulse Rate 110 H 111 H 111 H Pulse Rate [ Left From Monitor] Respiratory 20 20 22 Rate Blood Pressure 152/71 152/71 152/71 O2 Sat by Pulse 100 100 100 Oximetry 06/21/16 06/22/16 06/22/16 23:45 00:00 00:15 Temperature 101.1 F H Pulse Rate 109 H 113 H 112 H Pulse Rate [ 130 H Left From Monitor] Respiratory 22 21 21 Rate Blood Pressure 109/70 111/90 111/90 O2 Sat by Pulse 99 100 100 Oximetry 06/22/16 06/22/16 06/22/16 00:17 00:31 00:45 Temperature Pulse Rate 122 H 108 H 126 H Pulse Rate [ Left From Monitor] Respiratory 21 22 Rate Blood Pressure 111/90 135/69 O2 Sat by Pulse 100 100 99 Oximetry 06/22/16 06/22/16 06/22/16 01:00 01:15 01:30 Temperature Pulse Rate 118 H 124 H 119 H Pulse Rate [ Left From Monitor] Respiratory 25 H 21 24 Rate Blood Pressure 157/76 169/92 139/84 O2 Sat by Pulse 100 100 100 Oximetry 06/22/16 06/22/16 06/22/16 01:45 02:00 02:15 Temperature Pulse Rate 126 H 126 H 126 H Pulse Rate [ Left From Monitor] Respiratory 24 22 22 Rate Blood Pressure 133/87 122/76 112/70 O2 Sat by Pulse 100 100 100 Oximetry 06/22/16 06/22/16 06/22/16 02:30 02:45 03:00 Temperature Pulse Rate 132 H 123 H 117 H Pulse Rate [ Left From Monitor] Respiratory 20 23 21 Rate Blood Pressure 126/75 135/87 137/82 O2 Sat by Pulse 99 98 99 Oximetry 06/22/16 06/22/16 06/22/16 03:15 03:30 03:45 Temperature Pulse Rate 115 H 116 H 114 H Pulse Rate [ Left From Monitor] Respiratory 21 22 22 Rate Blood Pressure 138/81 130/85 137/83 O2 Sat by Pulse 99 100 100 Oximetry 06/22/16 06/22/16 06/22/16 04:00 04:03 04:11 Temperature 98.9 F Pulse Rate 114 H 120 H Pulse Rate [ 110 H Left From Monitor] Respiratory 21 22 23 Rate Blood Pressure 143/86 143/86 O2 Sat by Pulse 100 99 99 Oximetry 06/22/16 06/22/16 06/22/16 04:15 04:17 04:27 Temperature Pulse Rate 111 H 106 H 121 H Pulse Rate [ Left From Monitor] Respiratory 21 21 Rate Blood Pressure 136/80 136/80 136/80 O2 Sat by Pulse 99 99 100 Oximetry 06/22/16 06/22/16 06/22/16 04:30 04:45 05:00 Temperature Pulse Rate 118 H 112 H 119 H Pulse Rate [ Left From Monitor] Respiratory 22 22 22 Rate Blood Pressure 140/83 136/80 143/85 O2 Sat by Pulse 100 99 100 Oximetry 06/22/16 06/22/16 06/22/16 05:15 05:30 05:45 Temperature Pulse Rate 112 H 111 H Pulse Rate [ Left From Monitor] Respiratory 22 21 Rate Blood Pressure 146/79 164/84 134/66 O2 Sat by Pulse 100 100 99 Oximetry 06/22/16 06/22/16 06/22/16 06:00 06:15 08:00 Temperature 99 F Pulse Rate 116 H 102 H Pulse Rate [ Left From Monitor] Respiratory 20 21 Rate Blood Pressure 135/81 144/73 O2 Sat by Pulse 100 99 Oximetry General appearance: Present: no acute distress, other (on the ventilator but alert) - Neck Neck: supple - Respiratory Respiratory effort: other (on ventilator) Respiratory: bilateral: CTA Extremities: abnormal (edema of the left lower extremity incisions are clean dry and intact with minimal blistering the left leg is hot with multiphasic signals at the dorsalis pedis as well as posterior tibial artery.) Extremity abnormal: cold (the right lower extremity is cold from the knee down without any evidence of Doppler signals) - Gastrointestinal General gastrointestinal: Present: soft, non-tender, non-distended - Labs CBC & Chem 7: 06/22/16 05:00 06/22/16 05:00 Labs: Abnormal lab results 06/20/16 06/21/16 06/21/16 Range/Units 18:15 10:02 17:51 WBC (4.5-11.0) K/mm3 RBC (3.65-5.03) M/mm3 Plt Count (140-440) K/mm3 Seg Neuts % (Manual) (40.0-70.0) % Lymphocytes % (Manual) (13.4-35.0) % Nucleated RBC % (0.0-0.9) % Seg Neutrophils # Man (1.8-7.7) K/mm3 Lymphocytes # (Manual) (1.2-5.4) K/mm3 Monocytes # (Manual) (0.0-0.8) K/mm3 POC ABG pCO2 (35-45) POC ABG pO2 (80-105) Chloride (98-107) mmol/L Carbon Dioxide (22-30) mmol/L BUN (7-17) mg/dL Creatinine (0.7-1.2) mg/dL POC Glucose 132 H 106 H (70-105) Calcium (8.4-10.2) mg/dL Crossmatch See Detail 06/22/16 06/22/16 06/22/16 Range/Units 05:00 05:00 06:40 WBC 20.6 H (4.5-11.0) K/mm3 RBC 3.54 L (3.65-5.03) M/mm3 Plt Count 129 L (140-440) K/mm3 Seg Neuts % (Manual) 87.0 H (40.0-70.0) % Lymphocytes % (Manual) 4.0 L (13.4-35.0) % Nucleated RBC % 4.0 H (0.0-0.9) % Seg Neutrophils # Man 17.9 H (1.8-7.7) K/mm3 Lymphocytes # (Manual) 0.8 L (1.2-5.4) K/mm3 Monocytes # (Manual) 1.2 H (0.0-0.8) K/mm3 POC ABG pCO2 21.9 L (35-45) POC ABG pO2 118 H (80-105) Chloride 109.9 H (98-107) mmol/L Carbon Dioxide 15 L (22-30) mmol/L BUN 26 H (7-17) mg/dL Creatinine 2.2 H D (0.7-1.2) mg/dL POC Glucose (70-105) Calcium 6.3 L (8.4-10.2) mg/dL Crossmatch
--- NOTE | 2016-06-22 09:26 | XRay Report ---
Single view chest: Compared to 06/20/16. History: Followup of respiratory failure. Findings: Borderline cardiomegaly. Stable support system. Suspicion of minimal left pleural effusion. No consolidation. No significant interval change. Impression: No significant interval change.
[2016-06-22 09:46] LABS: Hematocrit 26.9 % (30.3-42.9); Hemoglobin 9.1 gm/dl (10.1-14.3)
[2016-06-22 10:18] LABS: INR 1.27 (0.87-1.13)
[2016-06-22] MEDS: HEPARIN/ 0.45% NACL-25,000 UNIT/500 ML 500 ML IV SCH (10:18)
[2016-06-22 10:19] LABS: Partial Thromboplastin Time 28.5 Sec. (24.2-36.6)
[2016-06-22] MEDS: PITRESSin 20 UNIT in NACL 0.9% 100 ML IV SCH ×2 (11:50)
--- NOTE | 2016-06-22 12:25 | Consultation ---
History of Present Illness - Reason for Consult Consult date: 06/22/16 acute renal failure, metabolic acidosis Requesting physician: NAYELY PULIDO - History of Present Illness - The patient is a 55 yo female admitted with severe PVD. She has undergone therapeutic intervention by Vascular (see notes) twice this admission, of the left lower extremity. After the procedure yesterday, she coded, but was resuscitated, and has been in the ICU on the vent since then. She is stable today, on minimal pressor support; her mental status (per notes) is improved and she is interactive during the interview. She had emesis this AM of coffee grounds, and an NG tube was placed; since then about 200cc of bilious material has been suctioned; there was one dark stool this AM, but none since. She has no hx of PUD per the sisters, and the patient denies abdominal pain. There has been no recent upper endoscopy. Of note, she was on heparin, but now is on ASA and plavix. The L leg is considered still viable. cr was 0.9 and now 2.2 and rising with decreased urine output Past History Past Medical History: diabetes, hypertension, PVD, other (Obesity) Past Surgical History: Other (Vascular interventions as noted) Social history: denies: alcohol abuse, prescription drug abuse Family history: diabetes, hypertension Medications and Allergies Allergies Allergy/AdvReac Type Severity Reaction Status Date / Time No Known Allergies Allergy Verified 01/24/15 14:51 Home Medications Medication Instructions Recorded Confirmed Last Taken Type Aspirin EC [Aspirin Enteric Coated 81 mg PO QDAY 01/25/15 06/13/16 06/13/16 History TAB] Atenolol/Chlorthalidone 1 each PO DAILY 01/25/15 06/13/16 06/13/16 History [Atenolol-Chlorthalidone 50-25] Clopidogrel [Plavix] 75 mg PO QDAY 01/25/15 06/13/16 06/13/16 History Ergocalciferol [Vitamin D2] 1 cap PO QWEEK 01/25/15 06/13/16 06/09/16 History Gabapentin [Neurontin] 300 mg PO Q8H 01/25/15 06/13/16 06/13/16 History Potassium Chloride 10 meq PO QDAY 01/25/15 06/13/16 06/13/16 History Active Meds: Active Medications Aspirin (Halfprin Ec) 81 mg PO QDAY ANNA Last Admin: 06/21/16 17:16 Dose: Not Given Atenolol (Tenormin) 50 mg PO QDAY ANNA Last Admin: 06/21/16 17:19 Dose: Not Given Chlorthalidone (Thalitone) 25 mg PO QDAY ANNA Last Admin: 06/21/16 17:17 Dose: Not Given Clopidogrel Bisulfate (Plavix) 75 mg PO QDAY ANNA Last Admin: 06/21/16 17:17 Dose: Not Given Ergocalciferol (Vitamin D2) 50,000 unit PO Mo ANNA Last Admin: 06/21/16 17:17 Dose: Not Given Gabapentin (Neurontin) 300 mg PO Q8H ANNA Last Admin: 06/22/16 06:13 Dose: Not Given Haloperidol Lactate (Haldol) 5 mg IV Q6H PRN PRN Reason: Agitation Hydromorphone/Sodium Chloride (Dilaudid Electric [employer] 6mg/30ml) 0 mg IV DIRECT ANNA PRN Reason: Protocol Last Admin: 06/18/16 20:27 Dose: 1 cartstart Hydrophilic Ointment (Vaseline Lip Therapy) 1 applic TP Q2H PRN PRN Reason: Dry Lips Fentanyl Citrate (Fentanyl Drip Premix) 100 mls @ 3.89 mls/hr IV TITR ANNA; 1 MCG/KG/HR PRN Reason: Protocol Norepinephrine (Levophed Drip 4 Mg/Ns 250 Ml) 250 mls @ 56.25 mls/hr IV TITR ANNA; 15 MCG/MIN PRN Reason: Protocol Last Admin: 06/21/16 16:53 Dose: 37.5 mls/hr Midazolam HCl (Versed/Ns 100mg/100ml) 100 mls @ 2 mls/hr IV TITR ANNA; 2 MG/HR PRN Reason: Protocol Sodium Chloride (Nacl 0.9% 1000 Ml) 1,000 mls @ 75 mls/hr IV DIRECT ANNA Last Admin: 06/22/16 03:00 Dose: 75 mls/hr Vasopressin 20 unit/ Sodium (Chloride) 101 mls @ 12.12 mls/hr IV TITR ANNA; 0.04 UNITS/MIN PRN Reason: Protocol Last Admin: 06/22/16 00:00 Dose: 9.09 mls/hr Sodium Chloride (Nacl 0.9% 1000 Ml) 1,000 mls @ 999 mls/hr IV DIRECT [facility] Last Admin: 06/21/16 07:50 Dose: 999 mls/hr Heparin Sodium/Sodium Chloride (Heparin/ 0.45% Nacl-25,000 Unit/500 Ml) 500 mls @ 23 mls/hr IV TITR ANNA; 1,150 UNITS/HR PRN Reason: Protocol Last Admin: 06/22/16 10:18 Dose: 23 mls/hr Piperacillin Sod/Tazobactam Sod (Zosyn/Ns 2.25 Gm/50ml) 50 mls @ 100 mls/hr IV Q6HR [facility] Multi-Ingred Cream/Lotion/Oil/Oint (Artificial Tears Ophth Oint) 1 applic OU Q4H PRN PRN Reason: Dry Eye(s) Naloxone HCl (Narcan 0.4 Mg/1 Ml) 0.1 mg IV Q2MIN PRN PRN Reason: Res Rate </= 8 or 02 SAT < 92% Ondansetron HCl (Zofran) 4 mg IV Q8H PRN PRN Reason: Nausea And Vomiting Last Admin: 06/16/16 22:21 Dose: 4 mg Pantoprazole Sodium (Protonix) 40 mg IV BID [facility] Last Admin: 06/21/16 22:39 Dose: 40 mg Potassium Chloride (K-Dur) 10 meq PO QDAY [facility] Last Admin: 06/18/16 20:04 Dose: Not Given Review of Systems ROS unobtainable: due to endotracheal tube, due to mental status Exam - Vital Signs Vital signs: Vital Signs Temp Pulse Resp BP Pulse Ox 98.4 F 82 18 147/87 100 06/13/16 09:35 06/13/16 09:35 06/13/16 09:35 06/13/16 09:35 06/13/16 09:35 - Physical Exam Narrative exam: General appearance: no acute distress (Awake and alert on ventilator) - EENT Eyes: PERRL, EOM intact ENT: hearing intact, other (ETT tube in mouth) - Neck Neck: supple, normal ROM - Respiratory Respiratory effort: normal Respiratory: bilateral: CTA - Cardiovascular Rhythm: regular Heart Sounds: Present: S1 & S2 Extremities: abnormal (Severe swelling and bruising L thigh; R thigh with femoral catheter and no bleeding) - Gastrointestinal General gastrointestinal: Present: soft, non-tender, non-distended, other (NG tube shows bilious material without blood) - Integumentary Integumentary: Present: clear, warm, dry - Neurologic Neurological: alert and oriented x3 Results - Lab Results 06/22/16 09:15 06/22/16 05:00 Most recent lab results Calcium 6.3 mg/dL (8.4-10.2) L 06/22/16 05:00 Magnesium 1.4 mg/dL (1.7-2.3) L 06/19/16 07:28 Assessment and Plan Impression: * REJI/ATN * Anemia Acute blood loss * Respiratory Failure * PVD * Metabolic acidosis * Hypotension Plan: * vasopressor prn to keep MAP >65 * dialy lytes * likely ATN due to cardiac arrest and hypovolumia * may need [employer] if not improvement in next 24 to 36hrs * ivfs and colloid support as needed * avoid nephrotoxins * strict i/os * stop gabapentin * add bicarb gtt
[2016-06-22] MEDS: ZOSYN/NS 2.25 GM/50ML 50 ML IV SCH ×3 (14:00→23:24)
--- NOTE | 2016-06-22 14:21 | Progress Note ---
Assessment and Plan Patient awake,following commands.On mechanical ventilation. Presently undergoing spontaneous breathing trials. Patient is on PS 10 cm H2O pressure, FIO2 30%.Patient is on Pressure support for 1 hour. Continue pressure support as tolerated. May rest her on assist control tonight.Patients urine output low.Patient is in metabolic acidosis. Because of multiple medical problems, Not extubating the patient today. Talk to the patients family, explained patients respiratory status. - Patient Problems (1) Acute respiratory failure Current Visit: Yes Status: Acute Plan to address problem: Patient presently undergoing spontaneous breathing trials. Pressure support 10 cm H20 and FIO2 30%. SGDs Continue Protonix (2) Cardiopulmonary arrest with successful resuscitation Current Visit: Yes Status: Acute Plan to address problem: Patient resuciated . Patient is on mechanical ventilation and vasopressors. (3) Left lower lobe pneumonia Current Visit: Yes Status: Acute Plan to address problem: Patient running low grade temp. Patient has leukocytosis. Chest xray showing left lower lobe infiltrate, Obtaining blood cultures Tracheal aspirate for gram stain and C&S. Urin for U/A C&S. Starting on Zosyn. (4) Atherosclerosis of [place] arteries of extremity with intermittent claudication Current Visit: Yes Status: Acute Plan to address problem: Management as per vascular surgery. (5) Metabolic acidosis Current Visit: Yes Status: Acute Plan to address problem: Obtaining Lactate level. Given I/V Bicarb. (6) ATN (acute tubular necrosis) Current Visit: Yes Status: Acute Plan to address problem: Nephrology consulted. Subjective Date of service: 06/22/16 Principal diagnosis: Peripheral Vascular Disease; Acute Limb Ischemia Interval history: Patient awake,following commands.On mechanical ventilation. Presently undergoing spontaneous breathing trials. Patient is on PS 10 cm H2O pressure, FIO2 30%.Patient is on Pressure support for 1 hour. Continue pressure support as tolerated. May rest her on assist control tonight.Patients urine output low.Patient is in metabolic acidosis. Because of multiple medical problems, Not extubating the patient today. Objective Vital Signs - 12hr 06/22/16 06/22/16 06/22/16 02:15 02:30 02:45 Temperature Pulse Rate 126 H 132 H 123 H Pulse Rate [ Left From Monitor] Respiratory 22 20 23 Rate Blood Pressure 112/70 126/75 135/87 O2 Sat by Pulse 100 99 98 Oximetry 06/22/16 06/22/1606/22/16 03:00 03:15 03:30 Temperature Pulse Rate 117 H 115 H 116 H Pulse Rate [ Left From Monitor] Respiratory 21 21 22 Rate Blood Pressure 137/82 138/81 130/85 O2 Sat by Pulse 99 99 100 Oximetry 06/22/16 06/22/16 06/22/16 03:45 04:00 04:03 Temperature 98.9 F Pulse Rate 114 H 114 H Pulse Rate [ 110 H Left From Monitor] Respiratory 22 21 22 Rate Blood Pressure 137/83 143/86 O2 Sat by Pulse 100 100 99 Oximetry 06/22/16 06/22/16 06/22/16 04:11 04:15 04:17 Temperature Pulse Rate 120 H 111 H 106 H Pulse Rate [ Left From Monitor] Respiratory 23 21 21 Rate Blood Pressure 143/86 136/80 136/80 O2 Sat by Pulse 99 99 99 Oximetry 06/22/16 06/22/16 06/22/16 04:27 04:30 04:45 Temperature Pulse Rate 121 H 118 H 112 H Pulse Rate [ Left From Monitor] Respiratory 22 22 Rate Blood Pressure 136/80 140/83 136/80 O2 Sat by Pulse 100 100 99 Oximetry 06/22/16 06/22/16 06/22/16 05:00 05:15 05:30 Temperature Pulse Rate 119 H 112 H Pulse Rate [ Left From Monitor] Respiratory 22 22 Rate Blood Pressure 143/85 146/79 164/84 O2 Sat by Pulse 100 100 100 Oximetry 06/22/16 06/22/16 06/22/16 05:45 06:00 06:15 Temperature Pulse Rate 111 H 116 H 107 H Pulse Rate [ Left From Monitor] Respiratory 21 20 22 Rate Blood Pressure 134/66 135/81 144/73 O2 Sat by Pulse 99 100 99 Oximetry 06/22/16 06/22/16 06/22/16 06:30 06:45 07:00 Temperature Pulse Rate 109 H 111 H 109 H Pulse Rate [ Left From Monitor] Respiratory 22 20 15 Rate Blood Pressure 136/77 128/89 118/79 O2 Sat by Pulse 100 99 100 Oximetry 06/22/16 06/22/16 06/22/16 07:15 07:30 07:45 Temperature Pulse Rate 111 H 106 H 106 H Pulse Rate [ Left From Monitor] Respiratory 20 22 23 Rate Blood Pressure 121/96 138/73 138/73 O2 Sat by Pulse 98 100 Oximetry 06/22/16 06/22/16 06/22/16 08:00 08:01 08:15 Temperature 99 F Pulse Rate 109 H 112 H Pulse Rate [ Left From Monitor] Respiratory 22 22 Rate Blood Pressure 143/70 138/72 O2 Sat by Pulse 100 99 100 Oximetry 06/22/16 06/22/16 06/22/16 08:30 08:45 09:00 Temperature Pulse Rate 106 H 115 H 107 H Pulse Rate [ Left From Monitor] Respiratory 23 17 23 Rate Blood Pressure 149/66 144/91 136/73 O2 Sat by Pulse 99 98 99 Oximetry 06/22/16 06/22/16 06/22/16 09:15 09:30 09:45 Temperature Pulse Rate 118 H 116 H 115 H Pulse Rate [ Left From Monitor] Respiratory 21 22 21 Rate Blood Pressure 139/73 127/78 127/78 O2 Sat by Pulse 99 99 100 Oximetry 06/22/16 06/22/16 06/22/16 10:00 10:15 10:31 Temperature Pulse Rate 109 H 106 H 115 H Pulse Rate [ Left From Monitor] Respiratory 22 26 H 23 Rate Blood Pressure 134/72 138/67 111/73 O2 Sat by Pulse 100 98 Oximetry 06/22/16 06/22/16 06/22/16 10:45 11:00 11:15 Temperature Pulse Rate 105 H 112 H 110 H Pulse Rate [ Left From Monitor] Respiratory 21 21 22 Rate Blood Pressure 130/71 120/75 139/72 O2 Sat by Pulse 98 99 Oximetry 06/22/16 06/22/16 06/22/16 11:31 11:45 12:00 Temperature Pulse Rate 115 H 112 H Pulse Rate [ Left From Monitor] Respiratory 23 22 Rate Blood Pressure 148/72 130/65 O2 Sat by Pulse 99 100 100 Oximetry 06/22/16 06/22/16 06/22/16 12:01 12:16 12:30 Temperature Pulse Rate 118 H 105 H 105 H Pulse Rate [ Left From Monitor] Respiratory 22 20 21 Rate Blood Pressure 125/64 125/64 145/76 O2 Sat by Pulse 99 Oximetry Constitutional: no acute distress, alert Eyes: non-icteric ENT: oropharynx moist Neck: supple, no lymphadenopathy Effort: normal Ascultation: Bilateral: diminished breath sounds, rhonchi (posterior bases) Cardiovascular: regular rate and rhythm Gastrointestinal: normoactive bowel sounds, soft, non-tender, non-distended Integumentary: other (weak LLExt) Extremities: no cyanosis, no edema, other (LLExt pulses diminished but leg warm) Neurologic: normal mental status, non-focal exam, pupils equal and round, motor strength normal and Psychiatric: mood appropriate, affect normal CBC and BMP: 06/22/16 09:15 06/22/16 05:00 ABG, PT/INR, D-dimer: ABG POC ABG pH 7.390 (7.35-7.45) 06/22/16 06:40 POC ABG pCO2 21.9 (35-45) L 06/22/16 06:40 POC ABG pO2 118 (80-105) H 06/22/16 06:40 POC ABG HCO3 13.3 06/22/16 06:40 POC ABG Total CO2 14 06/22/16 06:40 POC ABG O2 Sat 99 06/22/16 06:40 PT/INR, D-dimer PT 15.8 Sec. (12.2-14.9) H 06/22/16 09:15 INR 1.27 (0.87-1.13) H 06/22/16 09:15 Abnormal lab findings: Abnormal Labs 06/13/16 06/13/16 06/13/16 09:45 09:45 09:45 WBC RBC Hgb POC Hgb Hct POC Hct MCH 25 L MCHC RDW 15.8 H Plt Count Lymph % (Auto) [place] % (Auto) 8.1 H Lymph # [place] # Seg Neutrophils % Seg Neuts % (Manual) Lymphocytes % (Manual) Monocytes % (Manual) Nucleated RBC % Seg Neutrophils # Seg Neutrophils # Man Lymphocytes # (Manual) Monocytes # (Manual) PT INR APTT Fibrinogen 522 H Heparin Anti-Xa Level POC ABG pH POC ABG pCO2 POC ABG pO2 POC Potassium POC Chloride Sodium Potassium Chloride Carbon Dioxide POC BUN BUN Creatinine Glucose POC Glucose Calcium 10.3 H Magnesium Crossmatch 06/13/16 06/13/16 06/13/16 09:45 20:14 20:15 WBC RBC Hgb POC Hgb Hct POC Hct MCH MCHC RDW Plt Count Lymph % (Auto) [place] % (Auto) Lymph # [place] # Seg Neutrophils % Seg Neuts % (Manual) Lymphocytes % (Manual) Monocytes % (Manual) Nucleated RBC % Seg Neutrophils # Seg Neutrophils # Man Lymphocytes # (Manual) Monocytes # (Manual) PT INR APTT 103.8 H* Fibrinogen Heparin Anti-Xa Level 0.72 H POC ABG pH POC ABG pCO2 POC ABG pO2 POC Potassium POC Chloride Sodium Potassium Chloride Carbon Dioxide POC BUN BUN Creatinine Glucose POC Glucose Calcium Magnesium Crossmatch See Detail 06/14/16 06/14/16 06/14/16 07:44 10:18 19:09 WBC RBC Hgb POC Hgb Hct POC Hct MCH 26 L MCHC RDW 15.8 H Plt Count Lymph % (Auto) [place] % (Auto) 9.1 H Lymph # [place] # Seg Neutrophils % Seg Neuts % (Manual) Lymphocytes % (Manual) Monocytes % (Manual) Nucleated RBC % Seg Neutrophils # Seg Neutrophils # Man Lymphocytes # (Manual) Monocytes # (Manual) PT INR APTT Fibrinogen Heparin Anti-Xa Level 0.76 H POC ABG pH POC ABG pCO2 POC ABG pO2 POC Potassium POC Chloride Sodium Potassium Chloride Carbon Dioxide POC BUN BUN Creatinine Glucose POC Glucose 106 H Calcium Magnesium Crossmatch 06/15/16 06/15/16 06/15/16 04:43 04:43 22:49 WBC RBC Hgb 9.2 L POC Hgb Hct 28.4 L POC Hct MCH MCHC RDW Plt Count Lymph % (Auto) [place] % (Auto) Lymph # [place] # Seg Neutrophils % Seg Neuts % (Manual) Lymphocytes % (Manual) Monocytes % (Manual) Nucleated RBC % Seg Neutrophils # Seg Neutrophils # Man Lymphocytes # (Manual) Monocytes # (Manual) PT INR APTT Fibrinogen Heparin Anti-Xa Level 0.85 H POC ABG pH POC ABG pCO2 POC ABG pO2 POC Potassium POC Chloride Sodium Potassium Chloride Carbon Dioxide POC BUN BUN Creatinine Glucose POC Glucose 134 H Calcium Magnesium Crossmatch 06/16/16 06/16/16 06/16/16 08:55 08:55 14:21 WBC RBC Hgb POC Hgb 5.8 L Hct POC Hct 17 L MCH MCHC RDW Plt Count Lymph % (Auto) [place] % (Auto) Lymph # [place] # Seg Neutrophils % Seg Neuts % (Manual) Lymphocytes % (Manual) Monocytes % (Manual) Nucleated RBC % Seg Neutrophils # Seg Neutrophils # Man Lymphocytes # (Manual) Monocytes # (Manual) PT INR APTT 20.0 L Fibrinogen Heparin Anti-Xa Level POC ABG pH POC ABG pCO2 POC ABG pO2 POC Potassium 2.9 L POC Chloride Sodium Potassium Chloride Carbon Dioxide POC BUN 7 L BUN Creatinine Glucose POC Glucose 249 H Calcium Magnesium Crossmatch See Detail 06/16/16 06/16/16 06/16/16 16:55 17:41 17:48 WBC RBC Hgb POC Hgb 8.8 L Hct POC Hct 26 L < 15 L MCH MCHC RDW Plt Count Lymph % (Auto) [place] % (Auto) Lymph # [place] # Seg Neutrophils % Seg Neuts % (Manual) Lymphocytes % (Manual) Monocytes % (Manual) Nucleated RBC % Seg Neutrophils # Seg Neutrophils # Man Lymphocytes # (Manual) Monocytes # (Manual) PT INR APTT Fibrinogen Heparin Anti-Xa Level POC ABG pH 7.031 L POC ABG pCO2 POC ABG pO2 475 H POC Potassium 3.2 L POC Chloride 112 H 114 H Sodium Potassium Chloride Carbon Dioxide POC BUN 7 L 7 L BUN Creatinine Glucose POC Glucose 203 H 291 H Calcium Magnesium Crossmatch 06/16/16 06/16/16 06/16/16 18:07 19:09 20:10 WBC 15.8 H RBC Hgb POC Hgb 6.5 L Hct POC Hct 19 L MCH MCHC RDW Plt Count 38 L Lymph % (Auto) 5.9 L [place] % (Auto) 9.3 H Lymph # 0.9 L [place] # 1.5 H Seg Neutrophils % 84.6 H Seg Neuts % (Manual) Lymphocytes % (Manual) Monocytes % (Manual) Nucleated RBC % Seg Neutrophils # 13.3 H Seg Neutrophils # Man Lymphocytes # (Manual) Monocytes # (Manual) PT INR APTT Fibrinogen Heparin Anti-Xa Level POC ABG pH POC ABG pCO2 POC ABG pO2 POC Potassium POC Chloride 113 H Sodium Potassium Chloride Carbon Dioxide POC BUN 7 L BUN Creatinine Glucose POC Glucose 263 H 231 H Calcium Magnesium Crossmatch 06/16/16 06/16/16 06/16/16 20:10 20:18 21:10 WBC RBC Hgb POC Hgb Hct POC Hct MCH MCHC RDW Plt Count Lymph % (Auto) [place] % (Auto) Lymph # [place] # Seg Neutrophils % Seg Neuts % (Manual) Lymphocytes % (Manual) Monocytes % (Manual) Nucleated RBC % Seg Neutrophils # Seg Neutrophils # Man Lymphocytes # (Manual) Monocytes # (Manual) PT INR APTT Fibrinogen Heparin Anti-Xa Level POC ABG pH 7.236 L 7.280 L POC ABG pCO2 POC ABG pO2 139 H 145 H POC Potassium POC Chloride Sodium Potassium 3.4 L Chloride 114.5 H Carbon Dioxide 17 L D POC BUN BUN Creatinine Glucose 188 H POC Glucose Calcium 6.1 L D Magnesium Crossmatch 06/16/16 06/17/16 06/17/16 22:53 04:48 05:35 WBC RBC Hgb POC Hgb Hct POC Hct MCH MCHC RDW Plt Count Lymph % (Auto) [place] % (Auto) Lymph # [place] # Seg Neutrophils % Seg Neuts % (Manual) Lymphocytes % (Manual) Monocytes % (Manual) Nucleated RBC % Seg Neutrophils # Seg Neutrophils # Man Lymphocytes # (Manual) Monocytes # (Manual) PT INR APTT Fibrinogen Heparin Anti-Xa Level POC ABG pH POC ABG pCO2 33.9 L 22.2 L POC ABG pO2 152 H 154 H POC Potassium POC Chloride Sodium 150 H Potassium 3.4 L Chloride 114.2 H Carbon Dioxide 16 L POC BUN BUN Creatinine Glucose 221 H POC Glucose Calcium 7.6 L D Magnesium Crossmatch 06/17/16 06/18/16 06/18/16 09:22 07:26 08:25 WBC 20.3 H RBC 3.41 L Hgb 9.9 L POC Hgb Hct 29.7 L POC Hct MCH MCHC RDW Plt Count Lymph % (Auto) [place] % (Auto) Lymph # [place] # Seg Neutrophils % Seg Neuts % (Manual) 81.0 H Lymphocytes % (Manual) 6.0 L Monocytes % (Manual) 12.0 H Nucleated RBC % Seg Neutrophils # Seg Neutrophils # Man 16.4 H Lymphocytes # (Manual) Monocytes # (Manual) 2.4 H PT INR APTT Fibrinogen Heparin Anti-Xa Level POC ABG pH POC ABG pCO2 POC ABG pO2 POC Potassium POC Chloride Sodium Potassium 3.1 L Chloride Carbon Dioxide POC BUN BUN Creatinine Glucose 136 H POC Glucose 141 H Calcium 7.5 L Magnesium Crossmatch 06/18/16 06/18/16 06/18/16 08:25 11:09 19:40 WBC RBC Hgb 6.5 L D POC Hgb Hct 19.3 L* D POC Hct MCH MCHC RDW Plt Count 131 L Lymph % (Auto) [place] % (Auto) Lymph # [place] # Seg Neutrophils % Seg Neuts % (Manual) Lymphocytes % (Manual) Monocytes % (Manual) Nucleated RBC % Seg Neutrophils # Seg Neutrophils # Man Lymphocytes # (Manual) Monocytes # (Manual) PT INR APTT Fibrinogen Heparin Anti-Xa Level POC ABG pH 7.490 H POC ABG pCO2 POC ABG pO2 131 H POC Potassium POC Chloride Sodium Potassium Chloride Carbon Dioxide POC BUN BUN Creatinine Glucose POC Glucose 125 H Calcium Magnesium Crossmatch 06/18/16 06/19/16 06/19/16 21:10 07:07 07:28 WBC 13.6 H RBC 2.17 L Hgb 6.5 L POC Hgb Hct 18.8 L* POC Hct MCH MCHC 35 H RDW Plt Count 131 L Lymph % (Auto) 10.1 L [place] % (Auto) 9.3 H Lymph # [place] # 1.3 H Seg Neutrophils % 79.7 H Seg Neuts % (Manual) Lymphocytes % (Manual) Monocytes % (Manual) Nucleated RBC % Seg Neutrophils # 10.8 H Seg Neutrophils # Man Lymphocytes # (Manual) Monocytes # (Manual) PT INR APTT Fibrinogen Heparin Anti-Xa Level 0.75 H POC ABG pH POC ABG pCO2 POC ABG pO2 POC Potassium POC Chloride Sodium Potassium 3.5 L Chloride Carbon Dioxide POC BUN BUN Creatinine Glucose 104 H POC Glucose Calcium 7.6 L Magnesium 1.4 L Crossmatch 06/20/16 06/20/16 06/20/16 04:15 18:15 18:15 WBC 16.6 H RBC 1.19 L Hgb 9.2 L 3.5 L* D POC Hgb Hct 27.5 L D 11.0 L* D POC Hct MCH MCHC RDW Plt Count 138 L Lymph % (Auto) [place] % (Auto) Lymph # [place] # Seg Neutrophils % Seg Neuts % (Manual) Lymphocytes % (Manual) Monocytes % (Manual) Nucleated RBC % Seg Neutrophils # Seg Neutrophils # Man Lymphocytes # (Manual) Monocytes # (Manual) PT INR APTT Fibrinogen Heparin Anti-Xa Level POC ABG pH POC ABG pCO2 POC ABG pO2 POC Potassium POC Chloride Sodium 146 H Potassium Chloride Carbon Dioxide 14 L D POC BUN BUN Creatinine Glucose 31 L* POC Glucose Calcium 6.7 L Magnesium Crossmatch 06/20/16 06/20/16 06/20/16 18:15 19:33 19:36 WBC RBC Hgb POC Hgb Hct POC Hct MCH MCHC RDW Plt Count Lymph % (Auto) [place] % (Auto) Lymph # [place] # Seg Neutrophils % Seg Neuts % (Manual) Lymphocytes % (Manual) Monocytes % (Manual) Nucleated RBC % Seg Neutrophils # Seg Neutrophils # Man Lymphocytes # (Manual) Monocytes # (Manual) PT INR APTT Fibrinogen Heparin Anti-Xa Level POC ABG pH POC ABG pCO2 26.3 L POC ABG pO2 394 H POC Potassium POC Chloride Sodium Potassium Chloride Carbon Dioxide POC BUN BUN Creatinine Glucose POC Glucose 212 H Calcium Magnesium Crossmatch See Detail 06/20/16 06/20/16 06/21/16 22:01 23:00 00:35 WBC RBC Hgb POC Hgb Hct POC Hct MCH MCHC RDW Plt Count Lymph % (Auto) [place] % (Auto) Lymph # [place] # Seg Neutrophils % Seg Neuts % (Manual) Lymphocytes % (Manual) Monocytes % (Manual) Nucleated RBC % Seg Neutrophils # Seg Neutrophils # Man Lymphocytes # (Manual) Monocytes # (Manual) PT 21.3 H INR 1.85 H APTT 48.4 H Fibrinogen Heparin Anti-Xa Level POC ABG pH POC ABG pCO2 POC ABG pO2 POC Potassium POC Chloride Sodium Potassium Chloride Carbon Dioxide POC BUN BUN Creatinine Glucose POC Glucose 149 H 147 H Calcium Magnesium Crossmatch 06/21/16 06/21/16 06/21/16 04:30 04:30 06:01 WBC 21.7 H RBC 3.58 L Hgb POC Hgb Hct POC Hct MCH MCHC 35 H RDW Plt Count 116 L Lymph % (Auto) [place] % (Auto) Lymph # [place] # Seg Neutrophils % Seg Neuts % (Manual) Lymphocytes % (Manual) 8.0 L Monocytes % (Manual) Nucleated RBC % 3.0 H Seg Neutrophils # Seg Neutrophils # Man 13.7 H Lymphocytes # (Manual) Monocytes # (Manual) 1.5 H PT INR APTT Fibrinogen Heparin Anti-Xa Level POC ABG pH 7.541 H POC ABG pCO2 21.1 L POC ABG pO2 108 H POC Potassium POC Chloride Sodium Potassium 3.0 L Chloride 110.3 H Carbon Dioxide 18 L POC BUN BUN 18 H Creatinine Glucose 141 H POC Glucose Calcium 6.4 L Magnesium Crossmatch 06/21/16 06/21/16 06/21/16 07:00 10:02 17:51 WBC RBC Hgb 8.3 L POC Hgb Hct 24.7 L D POC Hct MCH MCHC RDW Plt Count Lymph % (Auto) [place] % (Auto) Lymph # [place] # Seg Neutrophils % Seg Neuts % (Manual) Lymphocytes % (Manual) Monocytes % (Manual) Nucleated RBC % Seg Neutrophils # Seg Neutrophils # Man Lymphocytes # (Manual) Monocytes # (Manual) PT INR APTT Fibrinogen Heparin Anti-Xa Level POC ABG pH POC ABG pCO2 POC ABG pO2 POC Potassium POC Chloride Sodium Potassium Chloride Carbon Dioxide POC BUN BUN Creatinine Glucose POC Glucose 132 H 106 H Calcium Magnesium Crossmatch 06/22/16 06/22/16 06/22/16 05:00 05:00 06:40 WBC 20.6 H RBC 3.54 L Hgb POC Hgb Hct POC Hct MCH MCHC RDW Plt Count 129 L Lymph % (Auto) [place] % (Auto) Lymph # [place] # Seg Neutrophils % Seg Neuts % (Manual) 87.0 H Lymphocytes % (Manual) 4.0 L Monocytes % (Manual) Nucleated RBC % 4.0 H Seg Neutrophils # Seg Neutrophils # Man 17.9 H Lymphocytes # (Manual) 0.8 L Monocytes # (Manual) 1.2 H PT INR APTT Fibrinogen Heparin Anti-Xa Level POC ABG pH POC ABG pCO2 21.9 L POC ABG pO2 118 H POC Potassium POC Chloride Sodium Potassium Chloride 109.9 H Carbon Dioxide 15 L POC BUN BUN 26 H Creatinine 2.2 H D Glucose POC Glucose Calcium 6.3 L Magnesium Crossmatch 06/22/16 06/22/16 09:15 09:15 WBC RBC Hgb 9.1 L POC Hgb Hct 26.9 L POC Hct MCH MCHC RDW Plt Count 116 L Lymph % (Auto) [place] % (Auto) Lymph # [place] # Seg Neutrophils % Seg Neuts % (Manual) Lymphocytes % (Manual) Monocytes % (Manual) Nucleated RBC % Seg Neutrophils # Seg Neutrophils # Man Lymphocytes # (Manual) Monocytes # (Manual) PT 15.8 H INR 1.27 H APTT Fibrinogen Heparin Anti-Xa Level POC ABG pH POC ABG pCO2 POC ABG pO2 POC Potassium POC Chloride Sodium Potassium Chloride Carbon Dioxide POC BUN BUN Creatinine Glucose POC Glucose Calcium Magnesium Crossmatch Chest x-ray: report reviewed (ET tube in place. Reported mininimal pleural effusion.), image reviewed
[2016-06-22] MEDS: ALBURX 25% (ALBUMIN) IV SCH ×2 (15:00→22:44)
--- NOTE | 2016-06-22 15:07 | Gastroenterology Progress Note ---
Assessment and Plan - Patient Problems (1) Coffee ground emesis Current Visit: Yes Status: Acute Plan to address problem: - Acute anemia most likely from severe PVD/surgical intervention over the last 2 weeks; even on heparin gtt no melena nor gross hematemesis. - OK to start NG feeds and continue protonix. - No endoscopy required at present; will sign off; please call if needed. Subjective Date of service: 06/22/16 Principal diagnosis: Anemia Interval history: There has been no gross blood from the NG tube nor melena overnight. The patient remains on the vent and is awake/alert. No severe abdominal pain, but does have pain in the groins where her procedures were. Objective - Constitutional Vitals: Temp Pulse Resp BP Pulse Ox 99 F 115 H 30 H 134/64 100 06/22/16 08:00 06/22/16 13:40 06/22/16 13:40 06/22/16 13:40 06/22/16 13:40 General appearance: other (Vent/not sedated and communicates) - Respiratory Respiratory effort: normal Respiratory: bilateral: CTA (On vent) - Cardiovascular Heart Rate: 100 Rhythm: regular Heart Sounds: Present: S1 & S2 - Gastrointestinal General gastrointestinal: Present: soft, non-tender, non-distended - Labs CBC & Chem 7: 06/22/16 09:15 06/22/16 05:00 Labs: Laboratory Results - last 24 hr 06/21/16 06/21/16 06/21/16 10:02 15:30 17:51 WBC RBC Hgb Hct MCV MCH MCHC RDW Plt Count Add Manual Diff Total Counted Seg Neuts % (Manual) Band Neutrophils % Lymphocytes % (Manual) Reactive Lymphs % (Man) Monocytes % (Manual) Eosinophils % (Manual) Basophils % (Manual) Metamyelocytes % Myelocytes % Promyelocytes % Blast Cells % Nucleated RBC % Seg Neutrophils # Man Band Neutrophils # Lymphocytes # (Manual) Abs React Lymphs (Man) Monocytes # (Manual) Eosinophils # (Manual) Basophils # (Manual) Metamyelocytes # Myelocytes # Promyelocytes # Blast Cells # WBC Morphology Hypersegmented Neuts Hyposegmented Neuts Hypogranular Neuts Smudge Cells Toxic Granulation Toxic Vacuolation Dohle Bodies Pelger-Huet Anomaly Mary Rods Platelet Estimate Clumped Platelets Plt Clumps, EDTA Large Platelets Giant Platelets Platelet Satelliting Plt Morphology Comment RBC Morphology Dimorphic RBCs Polychromasia Hypochromasia Poikilocytosis Anisocytosis Microcytosis Macrocytosis Spherocytes Pappenheimer Bodies Sickle Cells Target Cells Tear Drop Cells Ovalocytes Helmet Cells [place] Bodies Lawtey Rings Padmini Cells Bite Cells Crenated Cell Elliptocytes Acanthocytes (Spur) Rouleaux Hemoglobin C Crystals Schistocytes Malaria parasites Sean Bodies Hem Pathologist Commnt PT INR APTT POC ABG pH POC ABG pCO2 POC ABG pO2 POC ABG HCO3 POC ABG Total CO2 POC ABG O2 Sat POC ABG Base Excess FiO2 Sodium Potassium Chloride Carbon Dioxide Anion Gap BUN Creatinine Estimated GFR BUN/Creatinine Ratio Glucose POC Glucose 132 H 94 106 H Calcium 06/21/16 06/22/16 06/22/16 22:31 05:00 05:00 WBC 20.6 H RBC 3.54 L Hgb 10.7 Hct 31.7 D MCV 90 D MCH 30 MCHC 34 RDW 15.2 Plt Count 129 L Add Manual Diff Complete Total Counted 100 Seg Neuts % (Manual) 87.0 H Band Neutrophils % 3.0 Lymphocytes % (Manual) 4.0 L Reactive Lymphs % (Man) 0 Monocytes % (Manual) 6.0 Eosinophils % (Manual) 0 Basophils % (Manual) 0 Metamyelocytes % 0 Myelocytes % 0 Promyelocytes % 0 Blast Cells % 0 Nucleated RBC % 4.0 H Seg Neutrophils # Man 17.9 H Band Neutrophils # 0.6 Lymphocytes # (Manual) 0.8 L Abs React Lymphs (Man) 0.0 Monocytes # (Manual) 1.2 H Eosinophils # (Manual) 0.0 Basophils # (Manual) 0.0 Metamyelocytes # 0.0 Myelocytes # 0.0 Promyelocytes # 0.0 Blast Cells # 0.0 WBC Morphology Not Reportable Hypersegmented Neuts Not Reportable Hyposegmented Neuts Not Reportable Hypogranular Neuts Not Reportable Smudge Cells Not Reportable Toxic Granulation Not Reportable Toxic Vacuolation Not Reportable Dohle Bodies Not Reportable Pelger-Huet Anomaly Not Reportable Mary Rods Not Reportable Platelet Estimate Appears decreased Clumped Platelets Not Reportable Plt Clumps, EDTA Not Reportable Large Platelets Not Reportable Giant Platelets Not Reportable Platelet Satelliting Not Reportable Plt Morphology Comment Not Reportable RBC Morphology Not Reportable Dimorphic RBCs Not Reportable Polychromasia Not Reportable Hypochromasia Not Reportable Poikilocytosis Not Reportable Anisocytosis 2+ Microcytosis Not Reportable Macrocytosis Not Reportable Spherocytes Not Reportable Pappenheimer Bodies Not Reportable Sickle Cells Not Reportable Target Cells Not Reportable Tear Drop Cells Not Reportable Ovalocytes Not Reportable Helmet Cells Not Reportable [place] Bodies Not Reportable Lawtey Rings Not Reportable Padmini Cells Not Reportable Bite Cells Not Reportable Crenated Cell Not Reportable Elliptocytes Not Reportable Acanthocytes (Spur) Not Reportable Rouleaux Not Reportable Hemoglobin C Crystals Not Reportable Schistocytes Not Reportable Malaria parasites Not Reportable Sean Bodies Not Reportable Hem Pathologist Commnt No PT INR APTT POC ABG pH POC ABG pCO2 POC ABG pO2 POC ABG HCO3 POC ABG Total CO2 POC ABG O2 Sat POC ABG Base Excess FiO2 Sodium 144 Potassium 4.4 D Chloride 109.9 H Carbon Dioxide 15 L Anion Gap 24 BUN 26 H Creatinine 2.2 H D Estimated GFR 28 BUN/Creatinine Ratio 11.81 Glucose 92 POC Glucose 94 Calcium 6.3 L 06/22/16 06/22/16 06/22/16 06:40 09:15 09:15 WBC RBC Hgb 9.1 L Hct 26.9 L MCV MCH MCHC RDW Plt Count 116 L Add Manual Diff Total Counted Seg Neuts % (Manual) Band Neutrophils % Lymphocytes % (Manual) Reactive Lymphs % (Man) Monocytes % (Manual) Eosinophils % (Manual) Basophils % (Manual) Metamyelocytes % Myelocytes % Promyelocytes % Blast Cells % Nucleated RBC % Seg Neutrophils # Man Band Neutrophils # Lymphocytes # (Manual) Abs React Lymphs (Man) Monocytes # (Manual) Eosinophils # (Manual) Basophils # (Manual) Metamyelocytes # Myelocytes # Promyelocytes # Blast Cells # WBC Morphology Hypersegmented Neuts Hyposegmented Neuts Hypogranular Neuts Smudge Cells Toxic Granulation Toxic Vacuolation Dohle Bodies Pelger-Huet Anomaly Mary Rods Platelet Estimate Clumped Platelets Plt Clumps, EDTA Large Platelets Giant Platelets Platelet Satelliting Plt Morphology Comment RBC Morphology Dimorphic RBCs Polychromasia Hypochromasia Poikilocytosis Anisocytosis Microcytosis Macrocytosis Spherocytes Pappenheimer Bodies Sickle Cells Target Cells Tear Drop Cells Ovalocytes Helmet Cells [place] Bodies Lawtey Rings Padmini Cells Bite Cells Crenated Cell Elliptocytes Acanthocytes (Spur) Rouleaux Hemoglobin C Crystals Schistocytes Malaria parasites Sean Bodies Hem Pathologist Commnt PT 15.8 H INR 1.27 H APTT 28.5 POC ABG pH 7.390 POC ABG pCO2 21.9 L POC ABG pO2 118 H POC ABG HCO3 13.3 POC ABG Total CO2 14 POC ABG O2 Sat 99 POC ABG Base Excess -12 FiO2 40 Sodium Potassium Chloride Carbon Dioxide Anion Gap BUN Creatinine Estimated GFR BUN/Creatinine Ratio Glucose POC Glucose Calcium
[2016-06-22] MEDS: TENORMIN PO SCH ×2 (17:00→17:14)
[2016-06-22] MEDS: PROTONIX IV SCH ×3 (17:07→22:45)
[2016-06-22] MEDS: PLAVIX PO SCH (17:08)
[2016-06-22] MEDS: HALFPRIN EC PO SCH (17:15)
[2016-06-22] MEDS: THALITONE PO SCH (17:17)
[2016-06-22] MEDS: SODIUM BICARBONATE 150 MEQ in D5W 1,000 ML IV SCH (18:15)
[2016-06-22] MEDS: K-DUR PO SCH (22:46)
[2016-06-23] MEDS: HEPARIN/ 0.45% NACL-25,000 UNIT/500 ML 500 ML IV SCH (01:00)
[2016-06-23] MEDS: HALDOL IV PRN ×2 (01:08→08:19)
[2016-06-23] MEDS: PITRESSin 20 UNIT in NACL 0.9% 100 ML IV SCH (02:38)
[2016-06-23] MEDS: SODIUM BICARBONATE 150 MEQ in D5W 1,000 ML IV SCH (02:39)
[2016-06-23] MEDS: ZOSYN/NS 2.25 GM/50ML 50 ML IV SCH ×3 (05:32→17:33)
[2016-06-23 06:05] LABS: Basophils % (Auto) 0.2 % (0.0-1.8); Eosinophils % (Auto) 0.1 % (0.0-4.3); Hematocrit 24.2 % (30.3-42.9); Hemoglobin 8.1 gm/dl (10.1-14.3); Mean Corpuscular HGB Conc 34 % (30-34); Mean Corpuscular Hemoglobin 30 pg (28-32); Mean Corpuscular Volume 89 fl (79-97); Red Cell Distribution Width 15.1 % (13.2-15.2); White Blood Count 13.8 K/mm3 (4.5-11.0)
[2016-06-23 06:09] LABS: Platelet Count 93 K/mm3 (140-440)
[2016-06-23 06:12] LABS: BUN/Creatinine Ratio 12.3; Chloride 106.8 mmol/L (98-107); Potassium 3.6 mmol/L (3.6-5.0)
--- NOTE | 2016-06-23 08:49 | XRay Report ---
AP CHEST HISTORY: Followup respiratory failure. FINDINGS: The endotracheal tube is unchanged. The nasogastric tube has been removed. There is persistent opacity at the left lung base which obscures the left hemidiaphragm. This probably represents a small left pleural effusion. The left upper lobe and right lung are clear. Heart and mediastinal structures remain within normal limits. IMPRESSION: No significant change.
[2016-06-23] MEDS ORDERED: PANCREAZE DR 10,500 UNIT FEEDTUBE PRN (08:54)
[2016-06-23] MEDS ORDERED: SODIUM BICARBONATE FEEDTUBE PRN (08:54)
[2016-06-23] MEDS ORDERED: SIMPLE SYRUP FEEDTUBE PRN ×2 (08:54)
--- NOTE | 2016-06-23 09:54 | Progress Note ---
Assessment and Plan Acute kidney injury. Patient's etiology of renal failure appears to be multifactorial patient is currently nonoliguric, in the last 24 hours Given the clinical scenario, it appears that he like to the patient has developed acute tubular necrosis and is in need for close monitoring of renal function. Maintain hydration, oxygenation optimization of hemodynamics, bicarbonate is currently much better Further workup of renal failure including renal imaging needs to be done Hypotension, respiratory failure, currently resuscitated. Please keep mean arterial blood pressure over 65 Metabolic acidosis to follow the bicarbonate level maintain oxygenation Anemia, thrombocytopenia, hemoglobin was 9.1, platelet count 116 to follow Hypomagnesemia. Please replace and follow closely Continue with current measures and supportive care. Renal prognosis appears to be guarded at this time. Patient may require renal placement therapy if renal function further deteriorates or if she develops any significant electrolyte disturbances We'll continue to follow and make recommendation from renal standpoint Subjective Principal diagnosis: Anemia Interval history: Patient was seen today for follow-up on multiple renal related issues Events of this hospitalization were noted Vital slaps intake output medications were reviewed Objective - Vital Signs Vital signs: Vital Signs - 12hr 06/22/16 06/22/16 06/22/16 22:00 22:15 22:30 Temperature Pulse Rate 105 H 114 H 108 H Pulse Rate [ From Monitor] Respiratory 20 19 13 Rate Respiratory Rate [Left Foot ] Respiratory Rate [R LOWER EXT] Blood Pressure 139/75 155/88 163/83 O2 Sat by Pulse 99 98 98 Oximetry 06/22/16 06/22/16 06/22/16 22:45 23:00 23:15 Temperature Pulse Rate 97 H 99 H 102 H Pulse Rate [ From Monitor] Respiratory 20 20 17 Rate Respiratory 20 Rate [Left Foot ] Respiratory 20 Rate [R LOWER EXT] Blood Pressure 134/77 141/73 149/80 O2 Sat by Pulse 98 100 99 Oximetry 06/22/16 06/22/16 06/22/16 23:30 23:35 23:45 Temperature Pulse Rate 106 H 99 H 98 H Pulse Rate [ From Monitor] Respiratory 20 20 Rate Respiratory Rate [Left Foot ] Respiratory Rate [R LOWER EXT] Blood Pressure 141/77 141/77 148/78 O2 Sat by Pulse 99 100 100 Oximetry 06/23/16 06/23/16 06/23/16 00:00 00:16 00:30 Temperature 99.9 F H Pulse Rate 101 H 104 H 107 H Pulse Rate [ From Monitor] Respiratory 19 20 18 Rate Respiratory Rate [Left Foot ] Respiratory Rate [R LOWER EXT] Blood Pressure 149/77 161/71 150/84 O2 Sat by Pulse 100 98 100 Oximetry 06/23/16 06/23/16 06/23/16 00:45 01:00 01:16 Temperature Pulse Rate 108 H 107 H 122 H Pulse Rate [ 107 H From Monitor] Respiratory 20 20 21 Rate Respiratory Rate [Left Foot ] Respiratory Rate [R LOWER EXT] Blood Pressure 153/83 162/82 160/80 O2 Sat by Pulse 97 99 Oximetry 06/23/16 06/23/16 06/23/16 01:30 01:45 02:00 Temperature Pulse Rate 108 H 95 H 91 H Pulse Rate [ From Monitor] Respiratory 19 21 20 Rate Respiratory Rate [Left Foot ] Respiratory Rate [R LOWER EXT] Blood Pressure 160/80 153/77 143/78 O2 Sat by Pulse 99 99 100 Oximetry 06/23/16 06/23/16 06/23/16 02:15 02:30 02:45 Temperature Pulse Rate 95 H 96 H 98 H Pulse Rate [ From Monitor] Respiratory 19 20 20 Rate Respiratory Rate [Left Foot ] Respiratory Rate [R LOWER EXT] Blood Pressure 150/77 149/77 144/82 O2 Sat by Pulse 100 100 100 Oximetry 06/23/16 06/23/16 06/23/16 03:00 03:15 03:19 Temperature Pulse Rate 93 H 87 88 Pulse Rate [ From Monitor] Respiratory 20 20 Rate Respiratory Rate [Left Foot ] Respiratory Rate [R LOWER EXT] Blood Pressure 158/71 146/82 146/82 O2 Sat by Pulse 100 100 100 Oximetry 06/23/16 06/23/16 06/23/16 03:30 03:45 03:50 Temperature Pulse Rate 91 H 88 89 Pulse Rate [ From Monitor] Respiratory 20 20 20 Rate Respiratory Rate [Left Foot ] Respiratory Rate [R LOWER EXT] Blood Pressure 160/75 158/73 158/73 O2 Sat by Pulse 100 100 100 Oximetry 06/23/16 06/23/16 06/23/16 04:00 04:15 04:30 Temperature 99.1 F Pulse Rate 89 87 113 H Pulse Rate [ 89 From Monitor] Respiratory 20 20 20 Rate Respiratory Rate [Left Foot ] Respiratory Rate [R LOWER EXT] Blood Pressure 158/74 161/78 161/78 O2 Sat by Pulse 100 100 100 Oximetry 06/23/16 06/23/16 06/23/16 04:45 05:00 05:04 Temperature Pulse Rate 105 H 113 H 122 H Pulse Rate [ From Monitor] Respiratory 20 20 20 Rate Respiratory Rate [Left Foot ] Respiratory Rate [R LOWER EXT] Blood Pressure 141/68 138/71 138/71 O2 Sat by Pulse 100 100 100 Oximetry 06/23/16 06/23/16 06/23/16 05:15 05:20 05:30 Temperature Pulse Rate 115 H 117 H 111 H Pulse Rate [ From Monitor] Respiratory 20 20 16 Rate Respiratory Rate [Left Foot ] Respiratory Rate [R LOWER EXT] Blood Pressure 140/74 140/74 149/72 O2 Sat by Pulse 99 100 99 Oximetry 06/23/16 06/23/16 06/23/16 05:45 06:00 06:15 Temperature Pulse Rate 99 H 101 H 91 H Pulse Rate [ From Monitor] Respiratory 20 20 20 Rate Respiratory Rate [Left Foot ] Respiratory Rate [R LOWER EXT] Blood Pressure 146/59 146/59 158/76 O2 Sat by Pulse 100 100 100 Oximetry 06/23/16 06/23/16 06/23/16 06:25 06:28 06:30 Temperature Pulse Rate 91 H 90 87 Pulse Rate [ From Monitor] Respiratory 18 20 Rate Respiratory Rate [Left Foot ] Respiratory Rate [R LOWER EXT] Blood Pressure 158/76 156/79 O2 Sat by Pulse 100 100 Oximetry 06/23/16 06/23/16 06/23/16 06:45 07:00 07:15 Temperature Pulse Rate 90 95 H 99 H Pulse Rate [ From Monitor] Respiratory 20 20 20 Rate Respiratory Rate [Left Foot ] Respiratory Rate [R LOWER EXT] Blood Pressure 155/82 150/74 153/75 O2 Sat by Pulse 100 100 100 Oximetry 06/23/16 06/23/16 06/23/16 07:30 07:45 07:54 Temperature Pulse Rate 92 H 94 H 102 H Pulse Rate [ From Monitor] Respiratory 17 20 25 H Rate Respiratory Rate [Left Foot ] Respiratory Rate [R LOWER EXT] Blood Pressure 153/75 143/75 143/75 O2 Sat by Pulse 100 100 100 Oximetry 06/23/16 06/23/16 06/23/16 07:58 08:00 08:15 Temperature 98.5 F Pulse Rate 104 H 119 H Pulse Rate [ From Monitor] Respiratory 27 H 29 H Rate Respiratory Rate [Left Foot ] Respiratory Rate [R LOWER EXT] Blood Pressure 159/86 178/87 O2 Sat by Pulse 98 100 99 Oximetry - General Appearance General appearance: appears stated age EENT: mucous membranes moist Neck: no JVD Respiratory: Present: Rales (REVIEW OF BILATERAL BASILAR CRACKLE) Cardiology: regular Gastrointestinal: normal (, nontender abdomen) - Lab 06/23/16 05:43 06/23/16 05:43 Most recent lab results Calcium 7.0 mg/dL (8.4-10.2) L 06/23/16 05:43 Magnesium 1.4 mg/dL (1.7-2.3) L 06/19/16 07:28
[2016-06-23 10:08] LABS: ISTAT Base Excess 4; ISTAT HCO3 25.8; ISTAT PCO2 26.8 (35-45); ISTAT PH 7.593 (7.35-7.45); ISTAT PO2 141 (80-105); ISTAT SO2 100; ISTAT TCO2 27
[2016-06-23] MEDS: PROTONIX IV SCH (10:20)
[2016-06-23] MEDS: ALBURX 25% (ALBUMIN) IV SCH (10:20)
--- NOTE | 2016-06-23 10:22 | Progress Note ---
Assessment and Plan - Patient Problems (1) Peripheral vascular disease of extremity Current Visit: Yes Status: Acute Plan to address problem: - tentative surgery im am of thursday06/16/16 - s/p stress testing and cardiac clearance - will follow post-op - s/p surgery and out of OR on MVS - further intervention per vascular team scheduled for today - left leg warm with diminished pulses (2) Acute respiratory failure Current Visit: Yes Status: Acute Plan to address problem: - continue bronchodilators and pulmonary toilet - stopped alkalanized fluids - continue aspiration precautions - continue supplemental oxygen to keep sats > 92% - meeting weaning criteria and will extubate if ABG is good (3) Anemia Current Visit: Yes Status: Acute Plan to address problem: - no obvious bleeding site - on IV heparin so will have to watch closely - serial H&H - received PRBC's yesterday - H&H holding over past 24+ hrs (4) Discharge planning issues Current Visit: Yes Status: Acute Plan to address problem: - if meets full weaning criteria will extubate and observe in the ICU overnight ...she is critically ill on life sustaining interventions including MVS at risk for further deterioration including ..36' CCT Subjective Date of service: 06/23/16 Principal diagnosis: Acute Respiratory Failure on MVS; S/P Code Blue Interval history: Seen and examined at bedside; 24 hour events reviewed; nursing and respiratory care staff consulted; no adverse overnight events reported to me; somnolent but folowing commands appropriately; denies acute chest pains or increased SOB; No n /V/F/C Objective Vital Signs - 12hr 06/22/16 06/22/16 06/22/16 22:30 22:45 23:00 Temperature Pulse Rate 108 H 97 H 99 H Pulse Rate [ From Monitor] Respiratory 13 20 20 Rate Respiratory 20 Rate [Left Foot ] Respiratory 20 Rate [R LOWER EXT] Blood Pressure 163/83 134/77 141/73 O2 Sat by Pulse 98 98 100 Oximetry 06/22/16 06/22/16 06/22/16 23:15 23:30 23:35 Temperature Pulse Rate 102 H 106 H 99 H Pulse Rate [ From Monitor] Respiratory 17 20 Rate Respiratory Rate [Left Foot ] Respiratory Rate [R LOWER EXT] Blood Pressure 149/80 141/77 141/77 O2 Sat by Pulse 99 99 100 Oximetry 06/22/16 06/23/16 06/23/16 23:45 00:00 00:16 Temperature 99.9 F H Pulse Rate 98 H 101 H 104 H Pulse Rate [ From Monitor] Respiratory 20 19 20 Rate Respiratory Rate [Left Foot ] Respiratory Rate [R LOWER EXT] Blood Pressure 148/78 149/77 161/71 O2 Sat by Pulse 100 100 98 Oximetry 06/23/16 06/23/16 06/23/16 00:30 00:45 01:00 Temperature Pulse Rate 107 H 108 H 107 H Pulse Rate [ 107 H From Monitor] Respiratory 18 20 20 Rate Respiratory Rate [Left Foot ] Respiratory Rate [R LOWER EXT] Blood Pressure 150/84 153/83 162/82 O2 Sat by Pulse 100 97 99 Oximetry 06/23/16 06/23/16 06/23/16 01:16 01:30 01:45 Temperature Pulse Rate 122 H 108 H 95 H Pulse Rate [ From Monitor] Respiratory 21 19 21 Rate Respiratory Rate [Left Foot ] Respiratory Rate [R LOWER EXT] Blood Pressure 160/80 160/80 153/77 O2 Sat by Pulse 99 99 Oximetry 06/23/16 06/23/16 06/23/16 02:00 02:15 02:30 Temperature Pulse Rate 91 H 95 H 96 H Pulse Rate [ From Monitor] Respiratory 20 19 20 Rate Respiratory Rate [Left Foot ] Respiratory Rate [R LOWER EXT] Blood Pressure 143/78 150/77 149/77 O2 Sat by Pulse 100 100 100 Oximetry 06/23/16 06/23/16 06/23/16 02:45 03:00 03:15 Temperature Pulse Rate 98 H 93 H 87 Pulse Rate [ From Monitor] Respiratory 20 20 20 Rate Respiratory Rate [Left Foot ] Respiratory Rate [R LOWER EXT] Blood Pressure 144/82 158/71 146/82 O2 Sat by Pulse 100 100 100 Oximetry 06/23/16 06/23/16 06/23/16 03:19 03:30 03:45 Temperature Pulse Rate 88 91 H 88 Pulse Rate [ From Monitor] Respiratory 20 20 Rate Respiratory Rate [Left Foot ] Respiratory Rate [R LOWER EXT] Blood Pressure 146/82 160/75 158/73 O2 Sat by Pulse 100 100 100 Oximetry 06/23/16 06/23/16 06/23/16 03:50 04:00 04:15 Temperature 99.1 F Pulse Rate 89 89 87 Pulse Rate [ 89 From Monitor] Respiratory 20 20 20 Rate Respiratory Rate [Left Foot ] Respiratory Rate [R LOWER EXT] Blood Pressure 158/73 158/74 161/78 O2 Sat by Pulse 100 100 100 Oximetry 06/23/16 06/23/16 06/23/16 04:30 04:45 05:00 Temperature Pulse Rate 113 H 105 H 113 H Pulse Rate [ From Monitor] Respiratory 20 20 20 Rate Respiratory Rate [Left Foot ] Respiratory Rate [R LOWER EXT] Blood Pressure 161/78 141/68 138/71 O2 Sat by Pulse 100 100 100 Oximetry 06/23/16 06/23/16 06/23/16 05:04 05:15 05:20 Temperature Pulse Rate 122 H 115 H 117 H Pulse Rate [ From Monitor] Respiratory 20 20 20 Rate Respiratory Rate [Left Foot ] Respiratory Rate [R LOWER EXT] Blood Pressure 138/71 140/74 140/74 O2 Sat by Pulse 100 99 100 Oximetry 06/23/16 06/23/16 06/23/16 05:30 05:45 06:00 Temperature Pulse Rate 111 H 99 H 101 H Pulse Rate [ From Monitor] Respiratory 16 20 20 Rate Respiratory Rate [Left Foot ] Respiratory Rate [R LOWER EXT] Blood Pressure 149/72 146/59 146/59 O2 Sat by Pulse 99 100 100 Oximetry 06/23/16 06/23/16 06/23/16 06:15 06:25 06:28 Temperature Pulse Rate 91 H 91 H 90 Pulse Rate [ From Monitor] Respiratory 20 18 Rate Respiratory Rate [Left Foot ] Respiratory Rate [R LOWER EXT] Blood Pressure 158/76 158/76 O2 Sat by Pulse 100 100 Oximetry 06/23/16 06/23/16 06/23/16 06:30 06:45 07:00 Temperature Pulse Rate 87 90 95 H Pulse Rate [ From Monitor] Respiratory 20 20 20 Rate Respiratory Rate [Left Foot ] Respiratory Rate [R LOWER EXT] Blood Pressure 156/79 155/82 150/74 O2 Sat by Pulse 100 100 100 Oximetry 06/23/16 06/23/16 06/23/16 07:15 07:30 07:45 Temperature Pulse Rate 99 H 92 H 94 H Pulse Rate [ From Monitor] Respiratory 20 17 20 Rate Respiratory Rate [Left Foot ] Respiratory Rate [R LOWER EXT] Blood Pressure 153/75 153/75 143/75 O2 Sat by Pulse 100 100 100 Oximetry 12/06/2706/23/16 06/23/16 07:54 07:58 08:00 Temperature 98.5 F Pulse Rate 102 H 104 H Pulse Rate [ From Monitor] Respiratory 25 H 27 H Rate Respiratory Rate [Left Foot ] Respiratory Rate [R LOWER EXT] Blood Pressure 143/75 159/86 O2 Sat by Pulse 100 98 100 Oximetry 06/23/16 08:15 Temperature Pulse Rate 119 H Pulse Rate [ From Monitor] Respiratory 29 H Rate Respiratory Rate [Left Foot ] Respiratory Rate [R LOWER EXT] Blood Pressure 178/87 O2 Sat by Pulse 99 Oximetry Constitutional: no acute distress Eyes: non-icteric ENT: oropharynx moist Neck: supple, no lymphadenopathy Effort: normal Ascultation: Bilateral: clear, diminished breath sounds Cardiovascular: regular rate and rhythm Gastrointestinal: normoactive bowel sounds, soft, non-tender, non-distended Integumentary: other (weak LLExt) Extremities: no cyanosis, edema (non pitting), other (LLExt pulses diminished but leg warm) Neurologic: normal mental status, non-focal exam, pupils equal and round, motor strength normal and Psychiatric: mood appropriate, affect normal CBC and BMP: 06/24/16 08:10 06/24/16 08:10 ABG, PT/INR, D-dimer: ABG POC ABG pH 7.593 (7.35-7.45) H 06/23/16 09:44 POC ABG pCO2 26.8 (35-45) L 06/23/16 09:44 POC ABG pO2 141 (80-105) H 06/23/16 09:44 POC ABG HCO3 25.8 06/23/16 09:44 POC ABG Total CO2 27 06/23/16 09:44 POC ABG O2 Sat 100 06/23/16 09:44 PT/INR, D-dimer PT 15.8 Sec. (12.2-14.9) H 06/22/16 09:15 INR 1.27 (0.87-1.13) H 06/22/16 09:15 Abnormal lab findings: Abnormal Labs 06/13/16 06/13/16 06/13/16 09:45 09:45 09:45 WBC RBC Hgb POC Hgb Hct POC Hct MCH 25 L MCHC RDW 15.8 H Plt Count Lymph % (Auto) [place] % (Auto) 8.1 H Lymph # [place] # Seg Neutrophils % Seg Neuts % (Manual) Lymphocytes % (Manual) Monocytes % (Manual) Nucleated RBC % Seg Neutrophils # Seg Neutrophils # Man Lymphocytes # (Manual) Monocytes # (Manual) PT INR APTT Fibrinogen 522 H Heparin Anti-Xa Level POC ABG pH POC ABG pCO2 POC ABG pO2 POC Potassium POC Chloride Sodium Potassium Chloride Carbon Dioxide POC BUN BUN Creatinine Glucose POC Glucose Calcium 10.3 H Magnesium Crossmatch 06/13/16 06/13/16 06/13/16 09:45 20:14 20:15 WBC RBC Hgb POC Hgb Hct POC Hct MCH MCHC RDW Plt Count Lymph % (Auto) [place] % (Auto) Lymph # [place] # Seg Neutrophils % Seg Neuts % (Manual) Lymphocytes % (Manual) Monocytes % (Manual) Nucleated RBC % Seg Neutrophils # Seg Neutrophils # Man Lymphocytes # (Manual) Monocytes # (Manual) PT INR APTT 103.8 H* Fibrinogen Heparin Anti-Xa Level 0.72 H POC ABG pH POC ABG pCO2 POC ABG pO2 POC Potassium POC Chloride Sodium Potassium Chloride Carbon Dioxide POC BUN BUN Creatinine Glucose POC Glucose Calcium Magnesium Crossmatch See Detail 06/14/16 06/14/16 06/14/16 07:44 10:18 19:09 WBC RBC Hgb POC Hgb Hct POC Hct MCH 26 L MCHC RDW 15.8 H Plt Count Lymph % (Auto) [place] % (Auto) 9.1 H Lymph # [place] # Seg Neutrophils % Seg Neuts % (Manual) Lymphocytes % (Manual) Monocytes % (Manual) Nucleated RBC % Seg Neutrophils # Seg Neutrophils # Man Lymphocytes # (Manual) Monocytes # (Manual) PT INR APTT Fibrinogen Heparin Anti-Xa Level 0.76 H POC ABG pH POC ABG pCO2 POC ABG pO2 POC Potassium POC Chloride Sodium Potassium Chloride Carbon Dioxide POC BUN BUN Creatinine Glucose POC Glucose 106 H Calcium Magnesium Crossmatch 06/15/16 06/15/16 06/15/16 04:43 04:43 22:49 WBC RBC Hgb 9.2 L POC Hgb Hct 28.4 L POC Hct MCH MCHC RDW Plt Count Lymph % (Auto) [place] % (Auto) Lymph # [place] # Seg Neutrophils % Seg Neuts % (Manual) Lymphocytes % (Manual) Monocytes % (Manual) Nucleated RBC % Seg Neutrophils # Seg Neutrophils # Man Lymphocytes # (Manual) Monocytes # (Manual) PT INR APTT Fibrinogen Heparin Anti-Xa Level 0.85 H POC ABG pH POC ABG pCO2 POC ABG pO2 POC Potassium POC Chloride Sodium Potassium Chloride Carbon Dioxide POC BUN BUN Creatinine Glucose POC Glucose 134 H Calcium Magnesium Crossmatch 06/16/16 06/16/16 06/16/16 08:55 08:55 14:21 WBC RBC Hgb POC Hgb 5.8 L Hct POC Hct 17 L MCH MCHC RDW Plt Count Lymph % (Auto) [place] % (Auto) Lymph # [place] # Seg Neutrophils % Seg Neuts % (Manual) Lymphocytes % (Manual) Monocytes % (Manual) Nucleated RBC % Seg Neutrophils # Seg Neutrophils # Man Lymphocytes # (Manual) Monocytes # (Manual) PT INR APTT 20.0 L Fibrinogen Heparin Anti-Xa Level POC ABG pH POC ABG pCO2 POC ABG pO2 POC Potassium 2.9 L POC Chloride Sodium Potassium Chloride Carbon Dioxide POC BUN 7 L BUN Creatinine Glucose POC Glucose 249 H Calcium Magnesium Crossmatch See Detail 06/16/16 06/16/16 06/16/16 16:55 17:41 17:48 WBC RBC Hgb POC Hgb 8.8 L Hct POC Hct 26 L < 15 L MCH MCHC RDW Plt Count Lymph % (Auto) [place] % (Auto) Lymph # [place] # Seg Neutrophils % Seg Neuts % (Manual) Lymphocytes % (Manual) Monocytes % (Manual) Nucleated RBC % Seg Neutrophils # Seg Neutrophils # Man Lymphocytes # (Manual) Monocytes # (Manual) PT INR APTT Fibrinogen Heparin Anti-Xa Level POC ABG pH 7.031 L POC ABG pCO2 POC ABG pO2 475 H POC Potassium 3.2 L POC Chloride 112 H 114 H Sodium Potassium Chloride Carbon Dioxide POC BUN 7 L 7 L BUN Creatinine Glucose POC Glucose 203 H 291 H Calcium Magnesium Crossmatch 06/16/16 06/16/16 06/16/16 18:07 19:09 20:10 WBC 15.8 H RBC Hgb POC Hgb 6.5 L Hct POC Hct 19 L MCH MCHC RDW Plt Count 38 L Lymph % (Auto) 5.9 L [place] % (Auto) 9.3 H Lymph # 0.9 L [place] # 1.5 H Seg Neutrophils % 84.6 H Seg Neuts % (Manual) Lymphocytes % (Manual) Monocytes % (Manual) Nucleated RBC % Seg Neutrophils # 13.3 H Seg Neutrophils # Man Lymphocytes # (Manual) Monocytes # (Manual) PT INR APTT Fibrinogen Heparin Anti-Xa Level POC ABG pH POC ABG pCO2 POC ABG pO2 POC Potassium POC Chloride 113 H Sodium Potassium Chloride Carbon Dioxide POC BUN 7 L BUN Creatinine Glucose POC Glucose 263 H 231 H Calcium Magnesium Crossmatch 06/16/16 06/16/16 06/16/16 20:10 20:18 21:10 WBC RBC Hgb POC Hgb Hct POC Hct MCH MCHC RDW Plt Count Lymph % (Auto) [place] % (Auto) Lymph # [place] # Seg Neutrophils % Seg Neuts % (Manual) Lymphocytes % (Manual) Monocytes % (Manual) Nucleated RBC % Seg Neutrophils # Seg Neutrophils # Man Lymphocytes # (Manual) Monocytes # (Manual) PT INR APTT Fibrinogen Heparin Anti-Xa Level POC ABG pH 7.236 L 7.280 L POC ABG pCO2 POC ABG pO2 139 H 145 H POC Potassium POC Chloride Sodium Potassium 3.4 L Chloride 114.5 H Carbon Dioxide 17 L D POC BUN BUN Creatinine Glucose 188 H POC Glucose Calcium 6.1 L D Magnesium Crossmatch 06/16/16 06/17/16 06/17/16 22:53 04:48 05:35 WBC RBC Hgb POC Hgb Hct POC Hct MCH MCHC RDW Plt Count Lymph % (Auto) [place] % (Auto) Lymph # [place] # Seg Neutrophils % Seg Neuts % (Manual) Lymphocytes % (Manual) Monocytes % (Manual) Nucleated RBC % Seg Neutrophils # Seg Neutrophils # Man Lymphocytes # (Manual) Monocytes # (Manual) PT INR APTT Fibrinogen Heparin Anti-Xa Level POC ABG pH POC ABG pCO2 33.9 L 22.2 L POC ABG pO2 152 H 154 H POC Potassium POC Chloride Sodium 150 H Potassium 3.4 L Chloride 114.2 H Carbon Dioxide 16 L POC BUN BUN Creatinine Glucose 221 H POC Glucose Calcium 7.6 L D Magnesium Crossmatch 06/17/16 06/18/16 06/18/16 09:22 07:26 08:25 WBC 20.3 H RBC 3.41 L Hgb 9.9 L POC Hgb Hct 29.7 L POC Hct MCH MCHC RDW Plt Count Lymph % (Auto) [place] % (Auto) Lymph # [place] # Seg Neutrophils % Seg Neuts % (Manual) 81.0 H Lymphocytes % (Manual) 6.0 L Monocytes % (Manual) 12.0 H Nucleated RBC % Seg Neutrophils # Seg Neutrophils # Man 16.4 H Lymphocytes # (Manual) Monocytes # (Manual) 2.4 H PT INR APTT Fibrinogen Heparin Anti-Xa Level POC ABG pH POC ABG pCO2 POC ABG pO2 POC Potassium POC Chloride Sodium Potassium 3.1 L Chloride Carbon Dioxide POC BUN BUN Creatinine Glucose 136 H POC Glucose 141 H Calcium 7.5 L Magnesium Crossmatch 06/18/16 06/18/16 06/18/16 08:25 11:09 19:40 WBC RBC Hgb 6.5 L D POC Hgb Hct 19.3 L* D POC Hct MCH MCHC RDW Plt Count 131 L Lymph % (Auto) [place] % (Auto) Lymph # [place] # Seg Neutrophils % Seg Neuts % (Manual) Lymphocytes % (Manual) Monocytes % (Manual) Nucleated RBC % Seg Neutrophils # Seg Neutrophils # Man Lymphocytes # (Manual) Monocytes # (Manual) PT INR APTT Fibrinogen Heparin Anti-Xa Level POC ABG pH 7.490 H POC ABG pCO2 POC ABG pO2 131 H POC Potassium POC Chloride Sodium Potassium Chloride Carbon Dioxide POC BUN BUN Creatinine Glucose POC Glucose 125 H Calcium Magnesium Crossmatch 06/18/16 06/19/16 06/19/16 21:10 07:07 07:28 WBC 13.6 H RBC 2.17 L Hgb 6.5 L POC Hgb Hct 18.8 L* POC Hct MCH MCHC 35 H RDW Plt Count 131 L Lymph % (Auto) 10.1 L [place] % (Auto) 9.3 H Lymph # [place] # 1.3 H Seg Neutrophils % 79.7 H Seg Neuts % (Manual) Lymphocytes % (Manual) Monocytes % (Manual) Nucleated RBC % Seg Neutrophils # 10.8 H Seg Neutrophils # Man Lymphocytes # (Manual) Monocytes # (Manual) PT INR APTT Fibrinogen Heparin Anti-Xa Level 0.75 H POC ABG pH POC ABG pCO2 POC ABG pO2 POC Potassium POC Chloride Sodium Potassium 3.5 L Chloride Carbon Dioxide POC BUN BUN Creatinine Glucose 104 H POC Glucose Calcium 7.6 L Magnesium 1.4 L Crossmatch 06/20/16 06/20/16 06/20/16 04:15 18:15 18:15 WBC 16.6 H RBC 1.19 L Hgb 9.2 L 3.5 L* D POC Hgb Hct 27.5 L D 11.0 L* D POC Hct MCH MCHC RDW Plt Count 138 L Lymph % (Auto) [place] % (Auto) Lymph # [place] # Seg Neutrophils % Seg Neuts % (Manual) Lymphocytes % (Manual) Monocytes % (Manual) Nucleated RBC % Seg Neutrophils # Seg Neutrophils # Man Lymphocytes # (Manual) Monocytes # (Manual) PT INR APTT Fibrinogen Heparin Anti-Xa Level POC ABG pH POC ABG pCO2 POC ABG pO2 POC Potassium POC Chloride Sodium 146 H Potassium Chloride Carbon Dioxide 14 L D POC BUN BUN Creatinine Glucose 31 L* POC Glucose Calcium 6.7 L Magnesium Crossmatch 06/20/16 06/20/16 06/20/16 18:15 19:33 19:36 WBC RBC Hgb POC Hgb Hct POC Hct MCH MCHC RDW Plt Count Lymph % (Auto) [place] % (Auto) Lymph # [place] # Seg Neutrophils % Seg Neuts % (Manual) Lymphocytes % (Manual) Monocytes % (Manual) Nucleated RBC % Seg Neutrophils # Seg Neutrophils # Man Lymphocytes # (Manual) Monocytes # (Manual) PT INR APTT Fibrinogen Heparin Anti-Xa Level POC ABG pH POC ABG pCO2 26.3 L POC ABG pO2 394 H POC Potassium POC Chloride Sodium Potassium Chloride Carbon Dioxide POC BUN BUN Creatinine Glucose POC Glucose 212 H Calcium Magnesium Crossmatch See Detail 06/20/16 06/20/16 06/21/16 22:01 23:00 00:35 WBC RBC Hgb POC Hgb Hct POC Hct MCH MCHC RDW Plt Count Lymph % (Auto) [place] % (Auto) Lymph # [place] # Seg Neutrophils % Seg Neuts % (Manual) Lymphocytes % (Manual) Monocytes % (Manual) Nucleated RBC % Seg Neutrophils # Seg Neutrophils # Man Lymphocytes # (Manual) Monocytes # (Manual) PT 21.3 H INR 1.85 H APTT 48.4 H Fibrinogen Heparin Anti-Xa Level POC ABG pH POC ABG pCO2 POC ABG pO2 POC Potassium POC Chloride Sodium Potassium Chloride Carbon Dioxide POC BUN BUN Creatinine Glucose POC Glucose 149 H 147 H Calcium Magnesium Crossmatch 06/21/16 06/21/16 06/21/16 04:30 04:30 06:01 WBC 21.7 H RBC 3.58 L Hgb POC Hgb Hct POC Hct MCH MCHC 35 H RDW Plt Count 116 L Lymph % (Auto) [place] % (Auto) Lymph # [place] # Seg Neutrophils % Seg Neuts % (Manual) Lymphocytes % (Manual) 8.0 L Monocytes % (Manual) Nucleated RBC % 3.0 H Seg Neutrophils # Seg Neutrophils # Man 13.7 H Lymphocytes # (Manual) Monocytes # (Manual) 1.5 H PT INR APTT Fibrinogen Heparin Anti-Xa Level POC ABG pH 7.541 H POC ABG pCO2 21.1 L POC ABG pO2 108 H POC Potassium POC Chloride Sodium Potassium 3.0 L Chloride 110.3 H Carbon Dioxide 18 L POC BUN BUN 18 H Creatinine Glucose 141 H POC Glucose Calcium 6.4 L Magnesium Crossmatch 06/21/16 06/21/16 06/21/16 07:00 10:02 17:51 WBC RBC Hgb 8.3 L POC Hgb Hct 24.7 L D POC Hct MCH MCHC RDW Plt Count Lymph % (Auto) [place] % (Auto) Lymph # [place] # Seg Neutrophils % Seg Neuts % (Manual) Lymphocytes % (Manual) Monocytes % (Manual) Nucleated RBC % Seg Neutrophils # Seg Neutrophils # Man Lymphocytes # (Manual) Monocytes # (Manual) PT INR APTT Fibrinogen Heparin Anti-Xa Level POC ABG pH POC ABG pCO2 POC ABG pO2 POC Potassium POC Chloride Sodium Potassium Chloride Carbon Dioxide POC BUN BUN Creatinine Glucose POC Glucose 132 H 106 H Calcium Magnesium Crossmatch 06/22/16 06/22/16 06/22/16 05:00 05:00 06:40 WBC 20.6 H RBC 3.54 L Hgb POC Hgb Hct POC Hct MCH MCHC RDW Plt Count 129 L Lymph % (Auto) [place] % (Auto) Lymph # [place] # Seg Neutrophils % Seg Neuts % (Manual) 87.0 H Lymphocytes % (Manual) 4.0 L Monocytes % (Manual) Nucleated RBC % 4.0 H Seg Neutrophils # Seg Neutrophils # Man 17.9 H Lymphocytes # (Manual) 0.8 L Monocytes # (Manual) 1.2 H PT INR APTT Fibrinogen Heparin Anti-Xa Level POC ABG pH POC ABG pCO2 21.9 L POC ABG pO2 118 H POC Potassium POC Chloride Sodium Potassium Chloride 109.9 H Carbon Dioxide 15 L POC BUN BUN 26 H Creatinine 2.2 H D Glucose POC Glucose Calcium 6.3 L Magnesium Crossmatch 06/22/16 06/22/16 06/22/16 09:15 09:15 23:17 WBC RBC Hgb 9.1 L POC Hgb Hct 26.9 L POC Hct MCH MCHC RDW Plt Count 116 L Lymph % (Auto) [place] % (Auto) Lymph # [place] # Seg Neutrophils % Seg Neuts % (Manual) Lymphocytes % (Manual) Monocytes % (Manual) Nucleated RBC % Seg Neutrophils # Seg Neutrophils # Man Lymphocytes # (Manual) Monocytes # (Manual) PT 15.8 H INR 1.27 H APTT Fibrinogen Heparin Anti-Xa Level POC ABG pH POC ABG pCO2 POC ABG pO2 POC Potassium POC Chloride Sodium Potassium Chloride Carbon Dioxide POC BUN BUN Creatinine Glucose POC Glucose 134 H Calcium Magnesium Crossmatch 06/23/16 06/23/16 06/23/16 05:43 05:43 09:44 WBC 13.8 H RBC 2.70 L Hgb 8.1 L POC Hgb Hct 24.2 L POC Hct MCH MCHC RDW Plt Count 93 L Lymph % (Auto) 6.2 L [place] % (Auto) Lymph # 0.9 L [place] # Seg Neutrophils % 89.2 H Seg Neuts % (Manual) Lymphocytes % (Manual) Monocytes % (Manual) Nucleated RBC % Seg Neutrophils # 12.3 H Seg Neutrophils # Man Lymphocytes # (Manual) Monocytes # (Manual) PT INR APTT Fibrinogen Heparin Anti-Xa Level POC ABG pH 7.593 H POC ABG pCO2 26.8 L POC ABG pO2 141 H POC Potassium POC Chloride Sodium 146 H Potassium Chloride Carbon Dioxide POC BUN BUN 32 H Creatinine 2.6 H Glucose 142 H POC Glucose Calcium 7.0 L Magnesium Crossmatch Chest x-ray: image reviewed
--- NOTE | 2016-06-23 14:32 | Event Note ---
Date: 06/23/16 During the patient's open operation I had to over sew the external iliac vein causing severe narrowing. The patient now has severe left leg edema which is concerning for DVT. Will continue heparin gtt and convert to oral anticoagulation when the patient is taking a regular diet.
--- NOTE | 2016-06-23 14:45 | Progress Note ---
Assessment and Plan Patient extubated and hemodynamically stable at this time. Continued renal failure secondary to ATN, Nephrology is consulted. Will restart her po medications. Physical therapy consult pending. Will keep in the ICU for now. 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 Will keep her on the heparin gtt for now and convert to oral anitcoagulation once she starts oral intake. Subjective Date of service: 06/23/16 Principal diagnosis: Anemia Interval history: Patient extubated today. No complaints at this time. She states her legs feel good. Objective - Constitutional Vitals: Vital Signs - 12hr 06/23/16 06/23/16 06/23/16 02:45 03:00 03:15 Temperature Pulse Rate 98 H 93 H 87 Pulse Rate [ From Monitor] Respiratory 20 20 20 Rate Blood Pressure 144/82 158/71 146/82 O2 Sat by Pulse 100 100 100 Oximetry 06/23/16 06/23/16 06/23/16 03:19 03:30 03:45 Temperature Pulse Rate 88 91 H 88 Pulse Rate [ From Monitor] Respiratory 20 20 Rate Blood Pressure 146/82 160/75 158/73 O2 Sat by Pulse 100 100 100 Oximetry 06/23/16 06/23/16 06/23/16 03:50 04:00 04:15 Temperature 99.1 F Pulse Rate 89 89 87 Pulse Rate [ 89 From Monitor] Respiratory 20 20 20 Rate Blood Pressure 158/73 158/74 161/78 O2 Sat by Pulse 100 100 100 Oximetry 06/23/16 06/23/16 06/23/16 04:30 04:45 05:00 Temperature Pulse Rate 113 H 105 H 113 H Pulse Rate [ From Monitor] Respiratory 20 20 20 Rate Blood Pressure 161/78 141/68 138/71 O2 Sat by Pulse 100 100 100 Oximetry 06/23/16 06/23/16 06/23/16 05:04 05:15 05:20 Temperature Pulse Rate 122 H 115 H 117 H Pulse Rate [ From Monitor] Respiratory 20 20 20 Rate Blood Pressure 138/71 140/74 140/74 O2 Sat by Pulse 100 99 100 Oximetry 06/23/16 06/23/16 06/23/16 05:30 05:45 06:00 Temperature Pulse Rate 111 H 99 H 101 H Pulse Rate [ From Monitor] Respiratory 16 20 20 Rate Blood Pressure 149/72 146/59 146/59 O2 Sat by Pulse 99 100 100 Oximetry 06/23/16 06/23/16 06/23/16 06:15 06:25 06:28 Temperature Pulse Rate 91 H 91 H 90 Pulse Rate [ From Monitor] Respiratory 20 18 Rate Blood Pressure 158/76 158/76 O2 Sat by Pulse 100 100 Oximetry 06/23/16 06/23/16 06/23/16 06:30 06:45 07:00 Temperature Pulse Rate 87 90 95 H Pulse Rate [ From Monitor] Respiratory 20 20 20 Rate Blood Pressure 156/79 155/82 150/74 O2 Sat by Pulse 100 100 100 Oximetry 06/23/16 06/23/16 06/23/16 07:15 07:30 07:45 Temperature Pulse Rate 99 H 92 H 94 H Pulse Rate [ From Monitor] Respiratory 20 17 20 Rate Blood Pressure 153/75 153/75 143/75 O2 Sat by Pulse 100 100 100 Oximetry 06/23/16 06/23/16 06/23/16 07:54 07:58 08:00 Temperature 98.5 F Pulse Rate 102 H 104 H Pulse Rate [ From Monitor] Respiratory 25 H 27 H Rate Blood Pressure 143/75 159/86 O2 Sat by Pulse 100 98 100 Oximetry 06/23/16 06/23/16 06/23/16 08:15 08:26 08:30 Temperature Pulse Rate 119 H 140 H 136 H Pulse Rate [ From Monitor] Respiratory 29 H 20 21 Rate Blood Pressure 178/87 178/87 168/96 O2 Sat by Pulse 99 100 99 Oximetry 06/23/16 06/23/16 06/23/16 08:45 09:00 09:15 Temperature Pulse Rate 120 H 111 H 110 H Pulse Rate [ From Monitor] Respiratory 25 H 22 20 Rate Blood Pressure 155/82 164/71 135/74 O2 Sat by Pulse 99 100 100 Oximetry 06/23/16 06/23/16 06/23/16 09:30 09:45 10:00 Temperature Pulse Rate 109 H 106 H 116 H Pulse Rate [ From Monitor] Respiratory 20 20 20 Rate Blood Pressure 148/70 144/72 134/78 O2 Sat by Pulse 99 100 100 Oximetry 06/23/16 06/23/16 10:15 12:00 Temperature 98.1 F Pulse Rate 106 H Pulse Rate [ From Monitor] Respiratory 19 Rate Blood Pressure 156/86 O2 Sat by Pulse 100 Oximetry General appearance: Present: no acute distress, other (alert and answering questions appropriately) - Neck Neck: supple - Respiratory Respiratory effort: normal - Cardiovascular Heart rate: 105 Rhythm: regular Extremities: normal temperature (right leg is warm with decreased motor but significantly improved from yesterday. Left leg is hot with improved motor) Extremity abnormal: edema (left leg with signifigant edema. Incisions C/D/I without signs of infection. Doppler signals present) - Gastrointestinal General gastrointestinal: Present: soft, non-tender, non-distended - Genitourinary Female genitourinary: deferred - Labs CBC & Chem 7: 06/23/16 05:43 06/23/16 05:43 Labs: Abnormal lab results 06/22/16 06/23/16 06/23/16 Range/Units 23:17 05:43 05:43 WBC 13.8 H (4.5-11.0) K/mm3 RBC 2.70 L (3.65-5.03) M/mm3 Hgb 8.1 L (10.1-14.3) gm/dl Hct 24.2 L (30.3-42.9) % Plt Count 93 L (140-440) K/mm3 Lymph % (Auto) 6.2 L (13.4-35.0) % Lymph # 0.9 L (1.2-5.4) K/mm3 Seg Neutrophils % 89.2 H (40.0-70.0) % Seg Neutrophils # 12.3 H (1.8-7.7) K/mm3 POC ABG pH (7.35-7.45) POC ABG pCO2 (35-45) POC ABG pO2 (80-105) Sodium 146 H (137-145) mmol/L BUN 32 H (7-17) mg/dL Creatinine 2.6 H (0.7-1.2) mg/dL Glucose 142 H (65-100) mg/dL POC Glucose 134 H (70-105) Calcium 7.0 L (8.4-10.2) mg/dL 06/23/16 06/23/16 Range/Units 09:44 11:23 WBC (4.5-11.0) K/mm3 RBC (3.65-5.03) M/mm3 Hgb (10.1-14.3) gm/dl Hct (30.3-42.9) % Plt Count (140-440) K/mm3 Lymph % (Auto) (13.4-35.0) % Lymph # (1.2-5.4) K/mm3 Seg Neutrophils % (40.0-70.0) % Seg Neutrophils # (1.8-7.7) K/mm3 POC ABG pH 7.593 H (7.35-7.45) POC ABG pCO2 26.8 L (35-45) POC ABG pO2 141 H (80-105) Sodium (137-145) mmol/L BUN (7-17) mg/dL Creatinine (0.7-1.2) mg/dL Glucose (65-100) mg/dL POC Glucose 138 H (70-105) Calcium (8.4-10.2) mg/dL
[2016-06-23] MEDS: THALITONE PO SCH (15:36)
[2016-06-23] MEDS: PLAVIX PO SCH (15:36)
[2016-06-23] MEDS: HALFPRIN EC PO SCH (15:36)
[2016-06-23] MEDS: TENORMIN PO SCH (15:37)
[2016-06-23] MEDS ORDERED: NACL 0.9% 1000 ML ONE (15:55)
[2016-06-23] MEDS: VITAMIN D2 PO SCH (16:24)
[2016-06-24] MEDS: HEPARIN/ 0.45% NACL-25,000 UNIT/500 ML 500 ML IV SCH ×2 (00:45→07:55)
[2016-06-24] MEDS: ZOSYN/NS 2.25 GM/50ML 50 ML IV SCH ×2 (00:50→06:22)
[2016-06-24] MEDS: HALDOL IV PRN (07:35)
[2016-06-24] MEDS ORDERED: NACL 0.9% 1000 ML ONE (08:00)
--- NOTE | 2016-06-24 08:40 | XRay Report ---
AP CHEST :06/21/16 01:59 CLINICAL: Intubated.Follow up respiratory failure. COMPARISON:Previous day. FINDINGS: The endotracheal tube is in satisfactory position. The heart is normal size. Mild central vascular congestion. The lungs are clear except for opacification in the left lower lobe and opacification of the left costophrenic angle which is unchanged compared to the previous exam. No pneumothorax. IMPRESSION: No change. Left lower lobe airspace disease or atelectasis.
[2016-06-24 08:56] LABS: Basophils % (Auto) 0.1 % (0.0-1.8); Eosinophils % (Auto) 0.1 % (0.0-4.3); Hematocrit 26.4 % (30.3-42.9); Hemoglobin 8.9 gm/dl (10.1-14.3); Mean Corpuscular HGB Conc 34 % (30-34); Mean Corpuscular Hemoglobin 30 pg (28-32); Mean Corpuscular Volume 91 fl (79-97); Platelet Count 115 K/mm3 (140-440); Red Blood Count 2.91 M/mm3 (3.65-5.03); Red Cell Distribution Width 15.6 % (13.2-15.2); White Blood Count 16.6 K/mm3 (4.5-11.0)
[2016-06-24] MEDS: HALFPRIN EC PO SCH (09:10)
[2016-06-24] MEDS: TENORMIN PO SCH (09:10)
[2016-06-24] MEDS: PROTONIX PO SCH (09:10)
[2016-06-24] MEDS: PLAVIX PO SCH (09:10)
[2016-06-24] MEDS: THALITONE PO SCH (09:11)
[2016-06-24 09:16] LABS: BUN/Creatinine Ratio 12.75; Calcium 7.5 mg/dL (8.4-10.2); Chloride 104.3 mmol/L (98-107); Potassium 3.8 mmol/L (3.6-5.0)
--- NOTE | 2016-06-24 09:33 | Progress Note ---
Assessment and Plan Acute kidney injury patient is currently nonoliguric renal function is somewhat worse but patient has doing much better in terms appear output electrolytes which are stable I believe she should not require renal replacement therapy at this time we will patiently watch her renal function we'll do a renal ultrasonogram to make sure she did not have any obstructive lesion or any evidence of underlying chronic kidney disease Avoid any nephrotoxic medication maintain oxygenation hydration judicious preferably more oral hydration at this point When renal function starts improving she may need diuretic to improve fluid overload on a when necessary basis Anemia mild current hemoglobin around 8.9 low platelet 115,000 to be followed by the primary team Mild hypernatremia, to follow at this time Hypomagnesemia need to follow-up on my initial level please monitor and replace Accelerated hypertension requires better control She is overall doing much better today from renal standpoint Discussed with critical care medicine patient does not require renal replacement therapy for now Subjective Principal diagnosis: Anemia Interval history: patient was seen today for follow-up on multiple renal related issues Currently her creatinine is slightly elevated compared to yesterday but she seems to be more alert awake talking No acute distress events of 24 hours vitals labs intake output medication was reviewed Case was also discussed with critical care medicine as well Patient is currently getting dressing to her left leg Objective - Vital Signs Vital signs: Vital Signs - 12hr 06/23/16 06/23/16 06/23/16 21:46 21:55 22:00 Temperature Pulse Rate 97 H 85 97 H Respiratory 30 H 29 H Rate Respiratory 20 Rate [Left Foot ] Respiratory 20 Rate [R LOWER EXT] Blood Pressure 168/87 168/78 O2 Sat by Pulse 100 97 100 Oximetry 06/23/16 06/23/16 06/23/16 22:16 22:30 22:46 Temperature Pulse Rate 90 87 92 H Respiratory 26 H 27 H 27 H Rate Respiratory Rate [Left Foot ] Respiratory Rate [R LOWER EXT] Blood Pressure 168/78 168/78 168/78 O2 Sat by Pulse 100 100 100 Oximetry 06/23/16 06/23/16 06/23/16 23:00 23:16 23:30 Temperature Pulse Rate 90 88 85 Respiratory 29 H 25 H 28 H Rate Respiratory Rate [Left Foot ] Respiratory Rate [R LOWER EXT] Blood Pressure 170/74 170/74 170/74 O2 Sat by Pulse 100 100 100 Oximetry 06/23/16 06/23/16 06/24/16 23:34 23:46 00:00 Temperature 98.2 F Pulse Rate 99 H 97 H Respiratory 21 30 H Rate Respiratory Rate [Left Foot ] Respiratory Rate [R LOWER EXT] Blood Pressure 170/74 169/77 O2 Sat by Pulse 100 100 Oximetry 06/24/16 06/24/16 06/24/16 00:16 00:18 00:30 Temperature Pulse Rate 85 85 83 Respiratory 21 27 H 25 H Rate Respiratory Rate [Left Foot ] Respiratory Rate [R LOWER EXT] Blood Pressure 169/77 169/77 169/77 O2 Sat by Pulse 100 100 100 Oximetry 06/24/16 06/24/16 06/24/16 00:46 00:53 01:00 Temperature Pulse Rate 87 82 87 Respiratory 18 26 H 28 H Rate Respiratory Rate [Left Foot ] Respiratory Rate [R LOWER EXT] Blood Pressure 169/77 169/77 171/73 O2 Sat by Pulse 100 100 100 Oximetry 06/24/16 06/24/16 06/24/16 01:14 01:16 01:30 Temperature Pulse Rate 91 H 88 89 Respiratory 30 H 28 H 28 H Rate Respiratory Rate [Left Foot ] Respiratory Rate [R LOWER EXT] Blood Pressure 171/73 171/73 171/73 O2 Sat by Pulse 100 100 100 Oximetry 06/24/16 06/24/16 06/24/16 01:46 02:00 02:16 Temperature Pulse Rate 85 96 H 85 Respiratory 26 H 25 H 28 H Rate Respiratory Rate [Left Foot ] Respiratory Rate [R LOWER EXT] Blood Pressure 169/77 169/77 155/76 O2 Sat by Pulse 100 100 100 Oximetry 06/24/16 06/24/16 06/24/16 02:30 02:46 03:00 Temperature Pulse Rate 82 84 90 Respiratory 26 H 22 26 H Rate Respiratory Rate [Left Foot ] Respiratory Rate [R LOWER EXT] Blood Pressure 155/76 155/76 162/81 O2 Sat by Pulse 100 100 100 Oximetry 06/24/16 06/24/16 06/24/16 03:05 03:16 03:24 Temperature Pulse Rate 87 81 93 H Respiratory 25 H 27 H 25 H Rate Respiratory 20 Rate [Left Foot ] Respiratory 20 Rate [R LOWER EXT] Blood Pressure 162/81 162/81 O2 Sat by Pulse 100 100 100 Oximetry 06/24/16 06/24/16 06/24/16 03:30 03:46 04:00 Temperature Pulse Rate 88 95 H 89 Respiratory 25 H 29 H 26 H Rate Respiratory Rate [Left Foot ] Respiratory Rate [R LOWER EXT] Blood Pressure 162/81 162/81 153/89 O2 Sat by Pulse 100 100 100 Oximetry 06/24/16 06/24/16 06/24/16 04:16 04:30 04:46 Temperature Pulse Rate 88 83 83 Respiratory 29 H 27 H 25 H Rate Respiratory Rate [Left Foot ] Respiratory Rate [R LOWER EXT] Blood Pressure 153/89 153/89 153/89 O2 Sat by Pulse 100 100 100 Oximetry 06/24/16 06/24/16 06/24/16 05:00 05:15 05:16 Temperature Pulse Rate 86 94 H Respiratory 21 23 Rate Respiratory Rate [Left Foot ] Respiratory Rate [R LOWER EXT] Blood Pressure 153/89 153/89 O2 Sat by Pulse 100 100 100 Oximetry 06/24/16 06/24/16 06/24/16 05:30 05:34 05:46 Temperature Pulse Rate 98 H 99 H 79 Respiratory 31 H 24 21 Rate Respiratory Rate [Left Foot ] Respiratory Rate [R LOWER EXT] Blood Pressure 153/89 153/89 153/89 O2 Sat by Pulse 98 100 100 Oximetry 06/24/16 06/24/16 06/24/16 06:00 06:16 06:22 Temperature Pulse Rate 80 82 81 Respiratory 24 25 H 20 Rate Respiratory Rate [Left Foot ] Respiratory Rate [R LOWER EXT] Blood Pressure 152/74 152/74 152/74 O2 Sat by Pulse 100 100 100 Oximetry 06/24/16 06/24/16 06/24/16 06:30 06:46 07:00 Temperature Pulse Rate 75 83 79 Respiratory 13 28 H 27 H Rate Respiratory Rate [Left Foot ] Respiratory Rate [R LOWER EXT] Blood Pressure 152/74 152/74 168/81 O2 Sat by Pulse 100 100 100 Oximetry 06/24/16 06/24/16 07:16 08:00 Temperature 97.6 F Pulse Rate 93 H Respiratory 16 Rate Respiratory Rate [Left Foot ] Respiratory Rate [R LOWER EXT] Blood Pressure 168/81 O2 Sat by Pulse 100 Oximetry - General Appearance General appearance: appears stated age (alert pleasant) EENT: mucous membranes moist (no dryness of the oral mucosa) Neck: no JVD Respiratory: Absent: Rales (few basilacrackles otherwise essentially clear) Cardiology: regular (regular rate and rhythm S1-S2 normal) Gastrointestinal: other (soft nontender abdomen) Neurologic: other (alert awake follows commands) - Lab 06/24/16 08:10 06/24/16 08:10 Most recent lab results Calcium 7.5 mg/dL (8.4-10.2) L 06/24/16 08:10 Magnesium 1.4 mg/dL (1.7-2.3) L 06/19/16 07:28
--- NOTE | 2016-06-24 10:29 | Progress Note ---
Assessment and Plan - Patient Problems (1) Peripheral vascular disease of extremity Current Visit: Yes Status: Acute Plan to address problem: - clinically limb is warm and non tender - further interventions per attending team (2) Acute respiratory failure Current Visit: Yes Status: Acute Plan to address problem: - improved - on nasal canula - continue aspiration precautions - prn bronchodilators (3) Anemia Current Visit: Yes Status: Acute Plan to address problem: - folow H&H - was ABLA - PRBC transfusion prn (4) Altered mental status Current Visit: Yes Status: Acute Plan to address problem: - suspect dementia element - non focal exam - follows commands appropriately - will observe on monitored bed (5) Discharge planning issues Current Visit: Yes Status: Acute Plan to address problem: - doing much better overall and can be managed on the medical floor with telemetry - will discuss transfer out of ICU with attending team ......will follow along on floor Subjective Date of service: 06/24/16 Principal diagnosis: Acute Respiratory Failure s/p MVS; Interval history: Seen and examined at bedside; 24 hour events reviewed; nursing and respiratory care staff consulted; no adverse overnight events reported to me; resting peacefully in bed; spoke with daughter on phone; denies acute chest pains or increased SOB; no N/V/F/C/gross bleeding Objective Vital Signs - 12hr 06/23/16 06/23/16 06/23/16 22:30 22:46 23:00 Temperature Pulse Rate 87 92 H 90 Respiratory 27 H 27 H 29 H Rate Respiratory Rate [Left Foot ] Respiratory Rate [R LOWER EXT] Blood Pressure 168/78 168/78 170/74 O2 Sat by Pulse 100 100 100 Oximetry 06/23/16 06/23/16 06/23/16 23:16 23:30 23:34 Temperature 98.2 F Pulse Rate 88 85 Respiratory 25 H 28 H Rate Respiratory Rate [Left Foot ] Respiratory Rate [R LOWER EXT] Blood Pressure 170/74 170/74 O2 Sat by Pulse 100 100 Oximetry 06/23/16 06/24/16 06/24/16 23:46 00:00 00:16 Temperature Pulse Rate 99 H 97 H 85 Respiratory 21 30 H 21 Rate Respiratory Rate [Left Foot ] Respiratory Rate [R LOWER EXT] Blood Pressure 170/74 169/77 169/77 O2 Sat by Pulse 100 100 100 Oximetry 12/06/24/16 06/24/16 00:18 00:30 00:46 Temperature Pulse Rate 85 83 87 Respiratory 27 H 25 H 18 Rate Respiratory Rate [Left Foot ] Respiratory Rate [R LOWER EXT] Blood Pressure 169/77 169/77 169/77 O2 Sat by Pulse 100 100 100 Oximetry 06/24/16 06/24/16 06/24/16 00:53 01:00 01:14 Temperature Pulse Rate 82 87 91 H Respiratory 26 H 28 H 30 H Rate Respiratory Rate [Left Foot ] Respiratory Rate [R LOWER EXT] Blood Pressure 169/77 171/73 171/73 O2 Sat by Pulse 100 100 100 Oximetry 06/24/16 06/24/16 06/24/16 01:16 01:30 01:46 Temperature Pulse Rate 88 89 85 Respiratory 28 H 28 H 26 H Rate Respiratory Rate [Left Foot ] Respiratory Rate [R LOWER EXT] Blood Pressure 171/73 171/73 169/77 O2 Sat by Pulse 100 100 100 Oximetry 06/24/16 06/24/16 06/24/16 02:00 02:16 02:30 Temperature Pulse Rate 96 H 85 82 Respiratory 25 H 28 H 26 H Rate Respiratory Rate [Left Foot ] Respiratory Rate [R LOWER EXT] Blood Pressure 169/77 155/76 155/76 O2 Sat by Pulse 100 100 100 Oximetry 06/24/16 06/24/16 06/24/16 02:46 03:00 03:05 Temperature Pulse Rate 84 90 87 Respiratory 22 26 H 25 H Rate Respiratory 20 Rate [Left Foot ] Respiratory 20 Rate [R LOWER EXT] Blood Pressure 155/76 162/81 O2 Sat by Pulse 100 100 100 Oximetry 06/24/16 06/24/16 06/24/16 03:16 03:24 03:30 Temperature Pulse Rate 81 93 H 88 Respiratory 27 H 25 H 25 H Rate Respiratory Rate [Left Foot ] Respiratory Rate [R LOWER EXT] Blood Pressure 162/81 162/81 162/81 O2 Sat by Pulse 100 100 100 Oximetry 06/24/16 06/24/16 06/24/16 03:46 04:00 04:16 Temperature Pulse Rate 95 H 89 88 Respiratory 29 H 26 H 29 H Rate Respiratory Rate [Left Foot ] Respiratory Rate [R LOWER EXT] Blood Pressure 162/81 153/89 153/89 O2 Sat by Pulse 100 100 100 Oximetry 06/24/16 06/24/1616 04:30 04:46 05:00 Temperature Pulse Rate 83 83 86 Respiratory 27 H 25 H 21 Rate Respiratory Rate [Left Foot ] Respiratory Rate [R LOWER EXT] Blood Pressure 153/89 153/89 153/89 O2 Sat by Pulse 100 100 100 Oximetry 06/24/16 06/24/16 06/24/16 05:15 05:16 05:30 Temperature Pulse Rate 94 H 98 H Respiratory 23 31 H Rate Respiratory Rate [Left Foot ] Respiratory Rate [R LOWER EXT] Blood Pressure 153/89 153/89 O2 Sat by Pulse 100 100 98 Oximetry 06/24/16 06/24/16 06/24/16 05:34 05:46 06:00 Temperature Pulse Rate 99 H 79 80 Respiratory 24 21 24 Rate Respiratory Rate [Left Foot ] Respiratory Rate [R LOWER EXT] Blood Pressure 153/89 153/89 152/74 O2 Sat by Pulse 100 100 100 Oximetry 06/24/16 06/24/16 06/24/16 06:16 06:22 06:30 Temperature Pulse Rate 82 81 75 Respiratory 25 H 20 13 Rate Respiratory Rate [Left Foot ] Respiratory Rate [R LOWER EXT] Blood Pressure 152/74 152/74 152/74 O2 Sat by Pulse 100 100 100 Oximetry 06/24/16 06/24/16 06/24/16 06:46 07:00 07:16 Temperature Pulse Rate 83 79 93 H Respiratory 28 H 27 H 16 Rate Respiratory Rate [Left Foot ] Respiratory Rate [R LOWER EXT] Blood Pressure 152/74 168/81 168/81 O2 Sat by Pulse 100 100 100 Oximetry 06/24/16 08:00 Temperature 97.6 F Pulse Rate Respiratory Rate Respiratory Rate [Left Foot ] Respiratory Rate [R LOWER EXT] Blood Pressure O2 Sat by Pulse Oximetry Constitutional: no acute distress, alert Eyes: non-icteric ENT: oropharynx moist Neck: supple, no lymphadenopathy Effort: normal Ascultation: Bilateral: clear, diminished breath sounds Cardiovascular: regular rate and rhythm Gastrointestinal: normoactive bowel sounds, soft, non-tender, non-distended Integumentary: other (weak LLExt) Extremities: no cyanosis, edema, other (LLExt pulses diminished but leg warm) Neurologic: normal mental status, non-focal exam, pupils equal and round, motor strength normal and Psychiatric: mood appropriate, affect normal CBC and BMP: 06/24/16 08:10 06/24/16 08:10 ABG, PT/INR, D-dimer: ABG POC ABG pH 7.593 (7.35-7.45) H 06/23/16 09:44 POC ABG pCO2 26.8 (35-45) L 06/23/16 09:44 POC ABG pO2 141 (80-105) H 06/23/16 09:44 POC ABG HCO3 25.8 06/23/16 09:44 POC ABG Total CO2 27 06/23/16 09:44 POC ABG O2 Sat 100 06/23/16 09:44 PT/INR, D-dimer PT 15.8 Sec. (12.2-14.9) H 06/22/16 09:15 INR 1.27 (0.87-1.13) H 06/22/16 09:15 Abnormal lab findings: Abnormal Labs 06/13/16 06/13/16 06/13/16 09:45 09:45 09:45 WBC RBC Hgb POC Hgb Hct POC Hct MCH 25 L MCHC RDW 15.8 H Plt Count Lymph % (Auto) [place] % (Auto) 8.1 H Lymph # [place] # Seg Neutrophils % Seg Neuts % (Manual) Lymphocytes % (Manual) Monocytes % (Manual) Nucleated RBC % Seg Neutrophils # Seg Neutrophils # Man Lymphocytes # (Manual) Monocytes # (Manual) PT INR APTT Fibrinogen 522 H Heparin Anti-Xa Level POC ABG pH POC ABG pCO2 POC ABG pO2 POC Potassium POC Chloride Sodium Potassium Chloride Carbon Dioxide POC BUN BUN Creatinine Glucose POC Glucose Calcium 10.3 H Magnesium Crossmatch 06/13/16 06/13/16 06/13/16 09:45 20:14 20:15 WBC RBC Hgb POC Hgb Hct POC Hct MCH MCHC RDW Plt Count Lymph % (Auto) [place] % (Auto) Lymph # [place] # Seg Neutrophils % Seg Neuts % (Manual) Lymphocytes % (Manual) Monocytes % (Manual) Nucleated RBC % Seg Neutrophils # Seg Neutrophils # Man Lymphocytes # (Manual) Monocytes # (Manual) PT INR APTT 103.8 H* Fibrinogen Heparin Anti-Xa Level 0.72 H POC ABG pH POC ABG pCO2 POC ABG pO2 POC Potassium POC Chloride Sodium Potassium Chloride Carbon Dioxide POC BUN BUN Creatinine Glucose POC Glucose Calcium Magnesium Crossmatch See Detail 06/14/16 06/14/16 06/14/16 07:44 10:18 19:09 WBC RBC Hgb POC Hgb Hct POC Hct MCH 26 L MCHC RDW 15.8 H Plt Count Lymph % (Auto) [place] % (Auto) 9.1 H Lymph # [place] # Seg Neutrophils % Seg Neuts % (Manual) Lymphocytes % (Manual) Monocytes % (Manual) Nucleated RBC % Seg Neutrophils # Seg Neutrophils # Man Lymphocytes # (Manual) Monocytes # (Manual) PT INR APTT Fibrinogen Heparin Anti-Xa Level 0.76 H POC ABG pH POC ABG pCO2 POC ABG pO2 POC Potassium POC Chloride Sodium Potassium Chloride Carbon Dioxide POC BUN BUN Creatinine Glucose POC Glucose 106 H Calcium Magnesium Crossmatch 06/15/16 06/15/16 06/15/16 04:43 04:43 22:49 WBC RBC Hgb 9.2 L POC Hgb Hct 28.4 L POC Hct MCH MCHC RDW Plt Count Lymph % (Auto) [place] % (Auto) Lymph # [place] # Seg Neutrophils % Seg Neuts % (Manual) Lymphocytes % (Manual) Monocytes % (Manual) Nucleated RBC % Seg Neutrophils # Seg Neutrophils # Man Lymphocytes # (Manual) Monocytes # (Manual) PT INR APTT Fibrinogen Heparin Anti-Xa Level 0.85 H POC ABG pH POC ABG pCO2 POC ABG pO2 POC Potassium POC Chloride Sodium Potassium Chloride Carbon Dioxide POC BUN BUN Creatinine Glucose POC Glucose 134 H Calcium Magnesium Crossmatch 06/16/16 06/16/16 06/16/16 08:55 08:55 14:21 WBC RBC Hgb POC Hgb 5.8 L Hct POC Hct 17 L MCH MCHC RDW Plt Count Lymph % (Auto) [place] % (Auto) Lymph # [place] # Seg Neutrophils % Seg Neuts % (Manual) Lymphocytes % (Manual) Monocytes % (Manual) Nucleated RBC % Seg Neutrophils # Seg Neutrophils # Man Lymphocytes # (Manual) Monocytes # (Manual) PT INR APTT 20.0 L Fibrinogen Heparin Anti-Xa Level POC ABG pH POC ABG pCO2 POC ABG pO2 POC Potassium 2.9 L POC Chloride Sodium Potassium Chloride Carbon Dioxide POC BUN 7 L BUN Creatinine Glucose POC Glucose 249 H Calcium Magnesium Crossmatch See Detail 06/16/16 06/16/16 06/16/16 16:55 17:41 17:48 WBC RBC Hgb POC Hgb 8.8 L Hct POC Hct 26 L < 15 L MCH MCHC RDW Plt Count Lymph % (Auto) [place] % (Auto) Lymph # [place] # Seg Neutrophils % Seg Neuts % (Manual) Lymphocytes % (Manual) Monocytes % (Manual) Nucleated RBC % Seg Neutrophils # Seg Neutrophils # Man Lymphocytes # (Manual) Monocytes # (Manual) PT INR APTT Fibrinogen Heparin Anti-Xa Level POC ABG pH 7.031 L POC ABG pCO2 POC ABG pO2 475 H POC Potassium 3.2 L POC Chloride 112 H 114 H Sodium Potassium Chloride Carbon Dioxide POC BUN 7 L 7 L BUN Creatinine Glucose POC Glucose 203 H 291 H Calcium Magnesium Crossmatch 06/16/16 06/16/16 06/16/16 18:07 19:09 20:10 WBC 15.8 H RBC Hgb POC Hgb 6.5 L Hct POC Hct 19 L MCH MCHC RDW Plt Count 38 L Lymph % (Auto) 5.9 L [place] % (Auto) 9.3 H Lymph # 0.9 L [place] # 1.5 H Seg Neutrophils % 84.6 H Seg Neuts % (Manual) Lymphocytes % (Manual) Monocytes % (Manual) Nucleated RBC % Seg Neutrophils # 13.3 H Seg Neutrophils # Man Lymphocytes # (Manual) Monocytes # (Manual) PT INR APTT Fibrinogen Heparin Anti-Xa Level POC ABG pH POC ABG pCO2 POC ABG pO2 POC Potassium POC Chloride 113 H Sodium Potassium Chloride Carbon Dioxide POC BUN 7 L BUN Creatinine Glucose POC Glucose 263 H 231 H Calcium Magnesium Crossmatch 06/16/16 06/16/16 06/16/16 20:10 20:18 21:10 WBC RBC Hgb POC Hgb Hct POC Hct MCH MCHC RDW Plt Count Lymph % (Auto) [place] % (Auto) Lymph # [place] # Seg Neutrophils % Seg Neuts % (Manual) Lymphocytes % (Manual) Monocytes % (Manual) Nucleated RBC % Seg Neutrophils # Seg Neutrophils # Man Lymphocytes # (Manual) Monocytes # (Manual) PT INR APTT Fibrinogen Heparin Anti-Xa Level POC ABG pH 7.236 L 7.280 L POC ABG pCO2 POC ABG pO2 139 H 145 H POC Potassium POC Chloride Sodium Potassium 3.4 L Chloride 114.5 H Carbon Dioxide 17 L D POC BUN BUN Creatinine Glucose 188 H POC Glucose Calcium 6.1 L D Magnesium Crossmatch 06/16/16 06/17/16 06/17/16 22:53 04:48 05:35 WBC RBC Hgb POC Hgb Hct POC Hct MCH MCHC RDW Plt Count Lymph % (Auto) [place] % (Auto) Lymph # [place] # Seg Neutrophils % Seg Neuts % (Manual) Lymphocytes % (Manual) Monocytes % (Manual) Nucleated RBC % Seg Neutrophils # Seg Neutrophils # Man Lymphocytes # (Manual) Monocytes # (Manual) PT INR APTT Fibrinogen Heparin Anti-Xa Level POC ABG pH POC ABG pCO2 33.9 L 22.2 L POC ABG pO2 152 H 154 H POC Potassium POC Chloride Sodium 150 H Potassium 3.4 L Chloride 114.2 H Carbon Dioxide 16 L POC BUN BUN Creatinine Glucose 221 H POC Glucose Calcium 7.6 L D Magnesium Crossmatch 06/17/16 06/18/16 06/18/16 09:22 07:26 08:25 WBC 20.3 H RBC 3.41 L Hgb 9.9 L POC Hgb Hct 29.7 L POC Hct MCH MCHC RDW Plt Count Lymph % (Auto) [place] % (Auto) Lymph # [place] # Seg Neutrophils % Seg Neuts % (Manual) 81.0 H Lymphocytes % (Manual) 6.0 L Monocytes % (Manual) 12.0 H Nucleated RBC % Seg Neutrophils # Seg Neutrophils # Man 16.4 H Lymphocytes # (Manual) Monocytes # (Manual) 2.4 H PT INR APTT Fibrinogen Heparin Anti-Xa Level POC ABG pH POC ABG pCO2 POC ABG pO2 POC Potassium POC Chloride Sodium Potassium 3.1 L Chloride Carbon Dioxide POC BUN BUN Creatinine Glucose 136 H POC Glucose 141 H Calcium 7.5 L Magnesium Crossmatch 06/18/16 06/18/16 06/18/16 08:25 11:09 19:40 WBC RBC Hgb 6.5 L D POC Hgb Hct 19.3 L* D POC Hct MCH MCHC RDW Plt Count 131 L Lymph % (Auto) [place] % (Auto) Lymph # [place] # Seg Neutrophils % Seg Neuts % (Manual) Lymphocytes % (Manual) Monocytes % (Manual) Nucleated RBC % Seg Neutrophils # Seg Neutrophils # Man Lymphocytes # (Manual) Monocytes # (Manual) PT INR APTT Fibrinogen Heparin Anti-Xa Level POC ABG pH 7.490 H POC ABG pCO2 POC ABG pO2 131 H POC Potassium POC Chloride Sodium Potassium Chloride Carbon Dioxide POC BUN BUN Creatinine Glucose POC Glucose 125 H Calcium Magnesium Crossmatch 06/18/16 06/19/16 06/19/16 21:10 07:07 07:28 WBC 13.6 H RBC 2.17 L Hgb 6.5 L POC Hgb Hct 18.8 L* POC Hct MCH MCHC 35 H RDW Plt Count 131 L Lymph % (Auto) 10.1 L [place] % (Auto) 9.3 H Lymph # [place] # 1.3 H Seg Neutrophils % 79.7 H Seg Neuts % (Manual) Lymphocytes % (Manual) Monocytes % (Manual) Nucleated RBC % Seg Neutrophils # 10.8 H Seg Neutrophils # Man Lymphocytes # (Manual) Monocytes # (Manual) PT INR APTT Fibrinogen Heparin Anti-Xa Level 0.75 H POC ABG pH POC ABG pCO2 POC ABG pO2 POC Potassium POC Chloride Sodium Potassium 3.5 L Chloride Carbon Dioxide POC BUN BUN Creatinine Glucose 104 H POC Glucose Calcium 7.6 L Magnesium 1.4 L Crossmatch 06/20/16 06/20/16 06/20/16 04:15 18:15 18:15 WBC 16.6 H RBC 1.19 L Hgb 9.2 L 3.5 L* D POC Hgb Hct 27.5 L D 11.0 L* D POC Hct MCH MCHC RDW Plt Count 138 L Lymph % (Auto) [place] % (Auto) Lymph # [place] # Seg Neutrophils % Seg Neuts % (Manual) Lymphocytes % (Manual) Monocytes % (Manual) Nucleated RBC % Seg Neutrophils # Seg Neutrophils # Man Lymphocytes # (Manual) Monocytes # (Manual) PT INR APTT Fibrinogen Heparin Anti-Xa Level POC ABG pH POC ABG pCO2 POC ABG pO2 POC Potassium POC Chloride Sodium 146 H Potassium Chloride Carbon Dioxide 14 L D POC BUN BUN Creatinine Glucose 31 L* POC Glucose Calcium 6.7 L Magnesium Crossmatch 06/20/16 06/20/16 06/20/16 18:15 19:33 19:36 WBC RBC Hgb POC Hgb Hct POC Hct MCH MCHC RDW Plt Count Lymph % (Auto) [place] % (Auto) Lymph # [place] # Seg Neutrophils % Seg Neuts % (Manual) Lymphocytes % (Manual) Monocytes % (Manual) Nucleated RBC % Seg Neutrophils # Seg Neutrophils # Man Lymphocytes # (Manual) Monocytes # (Manual) PT INR APTT Fibrinogen Heparin Anti-Xa Level POC ABG pH POC ABG pCO2 26.3 L POC ABG pO2 394 H POC Potassium POC Chloride Sodium Potassium Chloride Carbon Dioxide POC BUN BUN Creatinine Glucose POC Glucose 212 H Calcium Magnesium Crossmatch See Detail 06/20/16 06/20/16 06/21/16 22:01 23:00 00:35 WBC RBC Hgb POC Hgb Hct POC Hct MCH MCHC RDW Plt Count Lymph % (Auto) [place] % (Auto) Lymph # [place] # Seg Neutrophils % Seg Neuts % (Manual) Lymphocytes % (Manual) Monocytes % (Manual) Nucleated RBC % Seg Neutrophils # Seg Neutrophils # Man Lymphocytes # (Manual) Monocytes # (Manual) PT 21.3 H INR 1.85 H APTT 48.4 H Fibrinogen Heparin Anti-Xa Level POC ABG pH POC ABG pCO2 POC ABG pO2 POC Potassium POC Chloride Sodium Potassium Chloride Carbon Dioxide POC BUN BUN Creatinine Glucose POC Glucose 149 H 147 H Calcium Magnesium Crossmatch 06/21/16 06/21/16 06/21/16 04:30 04:30 06:01 WBC 21.7 H RBC 3.58 L Hgb POC Hgb Hct POC Hct MCH MCHC 35 H RDW Plt Count 116 L Lymph % (Auto) [place] % (Auto) Lymph # [place] # Seg Neutrophils % Seg Neuts % (Manual) Lymphocytes % (Manual) 8.0 L Monocytes % (Manual) Nucleated RBC % 3.0 H Seg Neutrophils # Seg Neutrophils # Man 13.7 H Lymphocytes # (Manual) Monocytes # (Manual) 1.5 H PT INR APTT Fibrinogen Heparin Anti-Xa Level POC ABG pH 7.541 H POC ABG pCO2 21.1 L POC ABG pO2 108 H POC Potassium POC Chloride Sodium Potassium 3.0 L Chloride 110.3 H Carbon Dioxide 18 L POC BUN BUN 18 H Creatinine Glucose 141 H POC Glucose Calcium 6.4 L Magnesium Crossmatch 06/21/16 06/21/16 06/21/16 07:00 10:02 17:51 WBC RBC Hgb 8.3 L POC Hgb Hct 24.7 L D POC Hct MCH MCHC RDW Plt Count Lymph % (Auto) [place] % (Auto) Lymph # [place] # Seg Neutrophils % Seg Neuts % (Manual) Lymphocytes % (Manual) Monocytes % (Manual) Nucleated RBC % Seg Neutrophils # Seg Neutrophils # Man Lymphocytes # (Manual) Monocytes # (Manual) PT INR APTT Fibrinogen Heparin Anti-Xa Level POC ABG pH POC ABG pCO2 POC ABG pO2 POC Potassium POC Chloride Sodium Potassium Chloride Carbon Dioxide POC BUN BUN Creatinine Glucose POC Glucose 132 H 106 H Calcium Magnesium Crossmatch 06/22/16 06/22/16 06/22/16 05:00 05:00 06:40 WBC 20.6 H RBC 3.54 L Hgb POC Hgb Hct POC Hct MCH MCHC RDW Plt Count 129 L Lymph % (Auto) [place] % (Auto) Lymph # [place] # Seg Neutrophils % Seg Neuts % (Manual) 87.0 H Lymphocytes % (Manual) 4.0 L Monocytes % (Manual) Nucleated RBC % 4.0 H Seg Neutrophils # Seg Neutrophils # Man 17.9 H Lymphocytes # (Manual) 0.8 L Monocytes # (Manual) 1.2 H PT INR APTT Fibrinogen Heparin Anti-Xa Level POC ABG pH POC ABG pCO2 21.9 L POC ABG pO2 118 H POC Potassium POC Chloride Sodium Potassium Chloride 109.9 H Carbon Dioxide 15 L POC BUN BUN 26 H Creatinine 2.2 H D Glucose POC Glucose Calcium 6.3 L Magnesium Crossmatch 06/22/16 06/22/16 06/22/16 09:15 09:15 23:17 WBC RBC Hgb 9.1 L POC Hgb Hct 26.9 L POC Hct MCH MCHC RDW Plt Count 116 L Lymph % (Auto) [place] % (Auto) Lymph # [place] # Seg Neutrophils % Seg Neuts % (Manual) Lymphocytes % (Manual) Monocytes % (Manual) Nucleated RBC % Seg Neutrophils # Seg Neutrophils # Man Lymphocytes # (Manual) Monocytes # (Manual) PT 15.8 H INR 1.27 H APTT Fibrinogen Heparin Anti-Xa Level POC ABG pH POC ABG pCO2 POC ABG pO2 POC Potassium POC Chloride Sodium Potassium Chloride Carbon Dioxide POC BUN BUN Creatinine Glucose POC Glucose 134 H Calcium Magnesium Crossmatch 06/23/16 06/23/16 06/23/16 05:43 05:43 09:44 WBC 13.8 H RBC 2.70 L Hgb 8.1 L POC Hgb Hct 24.2 L POC Hct MCH MCHC RDW Plt Count 93 L Lymph % (Auto) 6.2 L [place] % (Auto) Lymph # 0.9 L [place] # Seg Neutrophils % 89.2 H Seg Neuts % (Manual) Lymphocytes % (Manual) Monocytes % (Manual) Nucleated RBC % Seg Neutrophils # 12.3 H Seg Neutrophils # Man Lymphocytes # (Manual) Monocytes # (Manual) PT INR APTT Fibrinogen Heparin Anti-Xa Level POC ABG pH 7.593 H POC ABG pCO2 26.8 L POC ABG pO2 141 H POC Potassium POC Chloride Sodium 146 H Potassium Chloride Carbon Dioxide POC BUN BUN 32 H Creatinine 2.6 H Glucose 142 H POC Glucose Calcium 7.0 L Magnesium Crossmatch 06/23/16 06/23/16 06/23/16 11:23 17:42 23:32 WBC RBC Hgb POC Hgb Hct POC Hct MCH MCHC RDW Plt Count Lymph % (Auto) [place] % (Auto) Lymph # [place] # Seg Neutrophils % Seg Neuts % (Manual) Lymphocytes % (Manual) Monocytes % (Manual) Nucleated RBC % Seg Neutrophils # Seg Neutrophils # Man Lymphocytes # (Manual) Monocytes # (Manual) PT INR APTT Fibrinogen Heparin Anti-Xa Level POC ABG pH POC ABG pCO2 POC ABG pO2 POC Potassium POC Chloride Sodium Potassium Chloride Carbon Dioxide POC BUN BUN Creatinine Glucose POC Glucose 138 H 133 H 111 H Calcium Magnesium Crossmatch 06/24/16 06/24/16 06/24/16 06:27 08:10 08:10 WBC 16.6 H RBC 2.91 L Hgb 8.9 L POC Hgb Hct 26.4 L POC Hct MCH MCHC RDW 15.6 H Plt Count 115 L Lymph % (Auto) 4.6 L [place] % (Auto) Lymph # 0.8 L [place] # 1.0 H Seg Neutrophils % 89.2 H Seg Neuts % (Manual) Lymphocytes % (Manual) Monocytes % (Manual) Nucleated RBC % Seg Neutrophils # 14.9 H Seg Neutrophils # Man Lymphocytes # (Manual) Monocytes # (Manual) PT INR APTT Fibrinogen Heparin Anti-Xa Level POC ABG pH POC ABG pCO2 POC ABG pO2 POC Potassium POC Chloride Sodium 146 H Potassium Chloride Carbon Dioxide POC BUN BUN 37 H Creatinine 2.9 H Glucose POC Glucose 109 H Calcium 7.5 L Magnesium Crossmatch
--- NOTE | 2016-06-24 16:39 | Progress Note ---
Assessment and Plan Pt's feet are warm and viable at present. Condition continues to improve. Will transfer out of the ICU. Will convert from heparin to Eliquis. 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 Objective - Constitutional Vitals: Vital Signs - 12hr 06/24/16 06/24/16 06/24/16 04:46 05:00 05:15 Temperature Pulse Rate 83 86 Respiratory 25 H 21 Rate Blood Pressure 153/89 153/89 O2 Sat by Pulse 100 100 100 Oximetry 06/24/16 06/24/16 06/24/16 05:16 05:30 05:34 Temperature Pulse Rate 94 H 98 H 99 H Respiratory 23 31 H 24 Rate Blood Pressure 153/89 153/89 153/89 O2 Sat by Pulse 100 98 100 Oximetry 06/24/16 06/24/16 06/24/16 05:46 06:00 06:16 Temperature Pulse Rate 79 80 82 Respiratory 21 24 25 H Rate Blood Pressure 153/89 152/74 152/74 O2 Sat by Pulse 100 100 100 Oximetry 06/24/16 06/24/16 06/24/16 06:22 06:30 06:46 Temperature Pulse Rate 81 75 83 Respiratory 20 13 28 H Rate Blood Pressure 152/74 152/74 152/74 O2 Sat by Pulse 100 100 100 Oximetry 06/24/16 06/24/16 06/24/16 07:00 07:16 07:28 Temperature Pulse Rate 79 93 H 109 H Respiratory 27 H 16 26 H Rate Blood Pressure 168/81 168/81 168/81 O2 Sat by Pulse 100 100 100 Oximetry 06/24/16 06/24/16 06/24/16 07:30 07:46 08:00 Temperature 97.6 F Pulse Rate 111 H 94 H 78 Respiratory 25 H 22 23 Rate Blood Pressure 168/81 168/81 159/78 O2 Sat by Pulse 100 100 100 Oximetry 06/24/16 06/24/16 06/24/16 08:16 08:30 08:46 Temperature Pulse Rate 78 78 81 Respiratory 19 20 19 Rate Blood Pressure 159/78 159/78 159/78 O2 Sat by Pulse 100 100 100 Oximetry 06/24/16 06/24/16 06/24/16 09:00 09:16 09:30 Temperature Pulse Rate 92 H 77 85 Respiratory 16 20 25 H Rate Blood Pressure 159/78 109/73 109/73 O2 Sat by Pulse 100 100 100 Oximetry 06/24/16 06/24/16 06/24/16 09:46 10:00 10:16 Temperature Pulse Rate 75 76 79 Respiratory 19 18 23 Rate Blood Pressure 109/73 157/80 157/80 O2 Sat by Pulse 100 100 100 Oximetry 06/24/16 06/24/16 06/24/16 10:30 10:46 11:00 Temperature Pulse Rate 79 75 77 Respiratory 19 20 21 Rate Blood Pressure 157/80 157/80 157/80 O2 Sat by Pulse 100 100 100 Oximetry 06/24/16 06/24/16 06/24/16 11:12 11:16 11:30 Temperature Pulse Rate 77 80 82 Respiratory 23 22 25 H Rate Blood Pressure 173/86 173/86 173/86 O2 Sat by Pulse 100 100 100 Oximetry 06/24/16 06/24/16 06/24/16 11:46 12:00 12:16 Temperature 98 F Pulse Rate 82 85 73 Respiratory 25 H 25 H 17 Rate Blood Pressure 154/88 154/88 135/36 O2 Sat by Pulse 100 99 Oximetry 06/24/16 06/24/16 06/24/16 12:20 12:30 12:46 Temperature Pulse Rate 88 87 74 Respiratory 24 21 23 Rate Blood Pressure 135/36 135/36 135/36 O2 Sat by Pulse 99 100 100 Oximetry 06/24/16 06/24/16 06/24/16 13:00 13:15 13:31 Temperature Pulse Rate 78 71 74 Respiratory 25 H 21 22 Rate Blood Pressure 135/36 131/62 O2 Sat by Pulse 100 100 100 Oximetry 06/24/16 06/24/16 06/24/16 13:45 14:01 14:11 Temperature Pulse Rate 86 77 77 Respiratory 21 20 21 Rate Blood Pressure 131/62 129/67 129/67 O2 Sat by Pulse 100 100 100 Oximetry 06/24/16 06/24/16 06/24/16 14:15 14:31 14:45 Temperature Pulse Rate 79 79 78 Respiratory 17 26 H 19 Rate Blood Pressure 129/67 129/67 129/67 O2 Sat by Pulse 100 100 100 Oximetry 06/24/16 15:01 Temperature Pulse Rate 77 Respiratory 14 Rate Blood Pressure 148/67 O2 Sat by Pulse 100 Oximetry General appearance: Present: no acute distress - EENT Eyes: EOM intact ENT: hearing intact - Respiratory Respiratory effort: normal Extremities: normal temperature - Gastrointestinal General gastrointestinal: Present: soft - Neurologic Neurologic: other (moves toes on the right decreased motor and sensory function to both lower ext.) - Psychiatric Psychiatric: no intact judgment & insight, cooperative - Labs CBC & Chem 7: 06/24/16 08:10 06/24/16 08:10 Labs: Abnormal lab results 06/20/16 06/23/16 06/23/16 Range/Units 18:15 17:42 23:32 WBC (4.5-11.0) K/mm3 RBC (3.65-5.03) M/mm3 Hgb (10.1-14.3) gm/dl Hct (30.3-42.9) % RDW (13.2-15.2) % Plt Count (140-440) K/mm3 Lymph % (Auto) (13.4-35.0) % Lymph # (1.2-5.4) K/mm3 Kimball # (0.0-0.8) K/mm3 Seg Neutrophils % (40.0-70.0) % Seg Neutrophils # (1.8-7.7) K/mm3 Sodium (137-145) mmol/L BUN (7-17) mg/dL Creatinine (0.7-1.2) mg/dL POC Glucose 133 H 111 H (70-105) Calcium (8.4-10.2) mg/dL Crossmatch See Detail 06/24/16 06/24/16 06/24/16 Range/Units 06:27 08:10 08:10 WBC 16.6 H (4.5-11.0) K/mm3 RBC 2.91 L (3.65-5.03) M/mm3 Hgb 8.9 L (10.1-14.3) gm/dl Hct 26.4 L (30.3-42.9) % RDW 15.6 H (13.2-15.2) % Plt Count 115 L (140-440) K/mm3 Lymph % (Auto) 4.6 L (13.4-35.0) % Lymph # 0.8 L (1.2-5.4) K/mm3 Kimball # 1.0 H (0.0-0.8) K/mm3 Seg Neutrophils % 89.2 H (40.0-70.0) % Seg Neutrophils # 14.9 H (1.8-7.7) K/mm3 Sodium 146 H (137-145) mmol/L BUN 37 H (7-17) mg/dL Creatinine 2.9 H (0.7-1.2) mg/dL POC Glucose 109 H (70-105) Calcium 7.5 L (8.4-10.2) mg/dL Crossmatch 06/24/16 Range/Units 12:05 WBC (4.5-11.0) K/mm3 RBC (3.65-5.03) M/mm3 Hgb (10.1-14.3) gm/dl Hct (30.3-42.9) % RDW (13.2-15.2) % Plt Count (140-440) K/mm3 Lymph % (Auto) (13.4-35.0) % Lymph # (1.2-5.4) K/mm3 Kimball # (0.0-0.8) K/mm3 Seg Neutrophils % (40.0-70.0) % Seg Neutrophils # (1.8-7.7) K/mm3 Sodium (137-145) mmol/L BUN (7-17) mg/dL Creatinine (0.7-1.2) mg/dL POC Glucose 117 H (70-105) Calcium (8.4-10.2) mg/dL Crossmatch
[2016-06-24] MEDS: D5/0.45NS 1,000 ML IV SCH (16:43)
[2016-06-24] MEDS ORDERED: NON-FORMULARY (Metformin Hcl [Glucophage] 1,000 MG) PO SCH (22:00)
[2016-06-24] MEDS: ELIQUIS PO SCH (23:03)
[2016-06-25] MEDS: D5/0.45NS 1,000 ML IV SCH ×2 (05:48→23:33)
[2016-06-25 07:27] LABS: BUN/Creatinine Ratio 12.77; Calcium 7.4 mg/dL (8.4-10.2); Chloride 103.7 mmol/L (98-107); Potassium 3.8 mmol/L (3.6-5.0)
--- NOTE | 2016-06-25 08:06 | Progress Note ---
Assessment and Plan Acute kidney injury in a patient with multiple risk factor for chronic kidney disease Patient's urine output has been good Creatinine has markedly increased her urine output has declined some At this time I will like to wait till tomorrow to decide about renal replacement therapy which can be provided Will discontinue chlorthalidone today Follow up on the labs tomorrow, patient also needs a new CBC as she is anemic and thrombocytopenic Hypernatremia to follow currently doing better Renal ultrasonogram reports that currently pending Likely etiology of her renal failure appears to be acute lower necrosis We will continue to follow and make recommendation from renal standpoint Subjective Principal diagnosis: Anemia Interval history: Patient was seen today for follow-up on multiple renal related issues She denies any complaints of nausea vomiting able to keep her fluid down Creatinine still continues to get worse however patient is nonoliguric she has no new respiratory symptoms denies any shortness of breath Events of 24 hours vitals labs intake output medications were reviewed Objective - Vital Signs Vital signs: Vital Signs - 12hr 06/24/16 06/24/16 22:00 23:00 Temperature 97.9 F Pulse Rate 74 Pulse Rate [ 73 Left] Respiratory 20 Rate Blood Pressure 184/86 O2 Sat by Pulse 100 Oximetry - General Appearance General appearance: appears stated age ( no acute distress) EENT: mucous membranes moist (no pallor or icterus order) Neck: no JVD (no thyromegaly on regular mass) Respiratory: Present: Rales (few faint basilar crackles otherwise essentially clear) Cardiology: regular (S1-S2 heard no S3-S4) Gastrointestinal: normal (soft nontender abdomen) Integumentary: other (edema approximately 2+ both lower expected T more so on the left than right) Neurologic: other (alert awake follows commands) - Lab 06/26/16 22:57 06/27/16 05:43 Most recent lab results Calcium 7.4 mg/dL (8.4-10.2) L 06/25/16 06:49 Magnesium 1.4 mg/dL (1.7-2.3) L 06/19/16 07:28
[2016-06-25] MEDS: HALFPRIN EC PO SCH (09:29)
[2016-06-25] MEDS: PLAVIX PO SCH (09:29)
[2016-06-25] MEDS: PROTONIX PO SCH (09:29)
[2016-06-25] MEDS: FEOSOL PO SCH (09:29)
[2016-06-25] MEDS: ELIQUIS PO SCH ×2 (09:29→23:33)
[2016-06-25] MEDS: TENORMIN PO SCH (09:30)
--- NOTE | 2016-06-25 09:35 | Ultrasound Report ---
Renal ultrasound: The right renal length is 9.7 cm. There is mild to moderate dilatation of the central collecting system. The parenchymal thickness is relatively preserved. No calculus, shadowing, or mass identified. The left renal length is approximately 10.6 cm. There is mild dilatation of the central collecting system. Normal parenchymal thickness. No shadowing, calculus or mass noted. Imaging in the region of the urinary bladder is not optimal. There appears be a solid mass which may represent the uterus. The bladder is not clearly demonstrated. There is small amount of lani-hepatic fluid. Impressions: Bilateral hydronephrosis. This is not apparent on recent CT scan of June 152015.
--- NOTE | 2016-06-25 10:19 | Progress Note ---
Assessment and Plan - Patient Problems (1) Peripheral vascular disease of extremity Current Visit: Yes Status: Acute Plan to address problem: - clinically limb is warm and non tender - further interventions per attending team (2) Acute respiratory failure Current Visit: Yes Status: Acute Plan to address problem: - improved - on nasal canula - continue aspiration precautions - prn bronchodilators (3) Anemia Current Visit: Yes Status: Acute Plan to address problem: - folow H&H - was ABLA - PRBC transfusion prn (4) Altered mental status Current Visit: Yes Status: Acute Plan to address problem: - suspect dementia element - non focal exam - follows commands appropriately - will observe on monitored bed - improved overall (5) Discharge planning issues Current Visit: Yes Status: Acute Plan to address problem: - doing much better overall ......will follow along on floor Subjective Date of service: 06/25/16 Principal diagnosis: Acute Hypoxemic Respiratory Failure; s/p cardiopulmonary arrest Interval history: Seen and examined at bedside; 24 hour events reviewed; nursing and respiratory care staff consulted; no adverse overnight events reported to me; resting peacefully; denies acute chest pains or increased SOB Objective Vital Signs - 12hr 06/24/16 06/25/16 06/25/16 23:00 08:05 09:30 Temperature 97.9 F 98.3 F Pulse Rate 84 Pulse Rate [ 84 Left Radial] Pulse Rate [ 73 Left] Respiratory 20 20 Rate Blood Pressure 184/86 161/82 Blood Pressure 161/82 [Left Arm] O2 Sat by Pulse 100 99 Oximetry Constitutional: no acute distress, alert Eyes: non-icteric ENT: oropharynx moist Neck: supple, no lymphadenopathy Effort: normal Ascultation: Bilateral: clear, diminished breath sounds Cardiovascular: regular rate and rhythm Gastrointestinal: normoactive bowel sounds, soft, non-tender, non-distended Integumentary: other (weak LLExt) Extremities: no cyanosis, edema, other (LLExt pulses diminished but leg warm) Neurologic: normal mental status, non-focal exam, pupils equal and round, motor strength normal and Psychiatric: mood appropriate, affect normal CBC and BMP: 06/28/16 06:27 06/28/16 06:27 ABG, PT/INR, D-dimer: ABG POC ABG pH 7.593 (7.35-7.45) H 06/23/16 09:44 POC ABG pCO2 26.8 (35-45) L 06/23/16 09:44 POC ABG pO2 141 (80-105) H 06/23/16 09:44 POC ABG HCO3 25.8 06/23/16 09:44 POC ABG Total CO2 27 06/23/16 09:44 POC ABG O2 Sat 100 06/23/16 09:44 PT/INR, D-dimer PT 15.8 Sec. (12.2-14.9) H 06/22/16 09:15 INR 1.27 (0.87-1.13) H 06/22/16 09:15 Abnormal lab findings: Abnormal Labs 06/13/16 06/13/16 06/13/16 09:45 09:45 09:45 WBC RBC Hgb POC Hgb Hct POC Hct MCH 25 L MCHC RDW 15.8 H Plt Count Lymph % (Auto) [place] % (Auto) 8.1 H Lymph # [place] # Seg Neutrophils % Seg Neuts % (Manual) Lymphocytes % (Manual) Monocytes % (Manual) Nucleated RBC % Seg Neutrophils # Seg Neutrophils # Man Lymphocytes # (Manual) Monocytes # (Manual) PT INR APTT Fibrinogen 522 H Heparin Anti-Xa Level POC ABG pH POC ABG pCO2 POC ABG pO2 POC Potassium POC Chloride Sodium Potassium Chloride Carbon Dioxide POC BUN BUN Creatinine Glucose POC Glucose Calcium 10.3 H Magnesium Crossmatch 06/13/16 06/13/16 06/13/16 09:45 20:14 20:15 WBC RBC Hgb POC Hgb Hct POC Hct MCH MCHC RDW Plt Count Lymph % (Auto) [place] % (Auto) Lymph # [place] # Seg Neutrophils % Seg Neuts % (Manual) Lymphocytes % (Manual) Monocytes % (Manual) Nucleated RBC % Seg Neutrophils # Seg Neutrophils # Man Lymphocytes # (Manual) Monocytes # (Manual) PT INR APTT 103.8 H* Fibrinogen Heparin Anti-Xa Level 0.72 H POC ABG pH POC ABG pCO2 POC ABG pO2 POC Potassium POC Chloride Sodium Potassium Chloride Carbon Dioxide POC BUN BUN Creatinine Glucose POC Glucose Calcium Magnesium Crossmatch See Detail 06/14/16 06/14/16 06/14/16 07:44 10:18 19:09 WBC RBC Hgb POC Hgb Hct POC Hct MCH 26 L MCHC RDW 15.8 H Plt Count Lymph % (Auto) [place] % (Auto) 9.1 H Lymph # [place] # Seg Neutrophils % Seg Neuts % (Manual) Lymphocytes % (Manual) Monocytes % (Manual) Nucleated RBC % Seg Neutrophils # Seg Neutrophils # Man Lymphocytes # (Manual) Monocytes # (Manual) PT INR APTT Fibrinogen Heparin Anti-Xa Level 0.76 H POC ABG pH POC ABG pCO2 POC ABG pO2 POC Potassium POC Chloride Sodium Potassium Chloride Carbon Dioxide POC BUN BUN Creatinine Glucose POC Glucose 106 H Calcium Magnesium Crossmatch 06/15/16 06/15/16 06/15/16 04:43 04:43 22:49 WBC RBC Hgb 9.2 L POC Hgb Hct 28.4 L POC Hct MCH MCHC RDW Plt Count Lymph % (Auto) [place] % (Auto) Lymph # [place] # Seg Neutrophils % Seg Neuts % (Manual) Lymphocytes % (Manual) Monocytes % (Manual) Nucleated RBC % Seg Neutrophils # Seg Neutrophils # Man Lymphocytes # (Manual) Monocytes # (Manual) PT INR APTT Fibrinogen Heparin Anti-Xa Level 0.85 H POC ABG pH POC ABG pCO2 POC ABG pO2 POC Potassium POC Chloride Sodium Potassium Chloride Carbon Dioxide POC BUN BUN Creatinine Glucose POC Glucose 134 H Calcium Magnesium Crossmatch 06/16/16 06/16/16 06/16/16 08:55 08:55 14:21 WBC RBC Hgb POC Hgb 5.8 L Hct POC Hct 17 L MCH MCHC RDW Plt Count Lymph % (Auto) [place] % (Auto) Lymph # [place] # Seg Neutrophils % Seg Neuts % (Manual) Lymphocytes % (Manual) Monocytes % (Manual) Nucleated RBC % Seg Neutrophils # Seg Neutrophils # Man Lymphocytes # (Manual) Monocytes # (Manual) PT INR APTT 20.0 L Fibrinogen Heparin Anti-Xa Level POC ABG pH POC ABG pCO2 POC ABG pO2 POC Potassium 2.9 L POC Chloride Sodium Potassium Chloride Carbon Dioxide POC BUN 7 L BUN Creatinine Glucose POC Glucose 249 H Calcium Magnesium Crossmatch See Detail 06/16/16 06/16/16 06/16/16 16:55 17:41 17:48 WBC RBC Hgb POC Hgb 8.8 L Hct POC Hct 26 L < 15 L MCH MCHC RDW Plt Count Lymph % (Auto) [place] % (Auto) Lymph # [place] # Seg Neutrophils % Seg Neuts % (Manual) Lymphocytes % (Manual) Monocytes % (Manual) Nucleated RBC % Seg Neutrophils # Seg Neutrophils # Man Lymphocytes # (Manual) Monocytes # (Manual) PT INR APTT Fibrinogen Heparin Anti-Xa Level POC ABG pH 7.031 L POC ABG pCO2 POC ABG pO2 475 H POC Potassium 3.2 L POC Chloride 112 H 114 H Sodium Potassium Chloride Carbon Dioxide POC BUN 7 L 7 L BUN Creatinine Glucose POC Glucose 203 H 291 H Calcium Magnesium Crossmatch 06/16/16 06/16/16 06/16/16 18:07 19:09 20:10 WBC 15.8 H RBC Hgb POC Hgb 6.5 L Hct POC Hct 19 L MCH MCHC RDW Plt Count 38 L Lymph % (Auto) 5.9 L [place] % (Auto) 9.3 H Lymph # 0.9 L [place] # 1.5 H Seg Neutrophils % 84.6 H Seg Neuts % (Manual) Lymphocytes % (Manual) Monocytes % (Manual) Nucleated RBC % Seg Neutrophils # 13.3 H Seg Neutrophils # Man Lymphocytes # (Manual) Monocytes # (Manual) PT INR APTT Fibrinogen Heparin Anti-Xa Level POC ABG pH POC ABG pCO2 POC ABG pO2 POC Potassium POC Chloride 113 H Sodium Potassium Chloride Carbon Dioxide POC BUN 7 L BUN Creatinine Glucose POC Glucose 263 H 231 H Calcium Magnesium Crossmatch 06/16/16 06/16/16 06/16/16 20:10 20:18 21:10 WBC RBC Hgb POC Hgb Hct POC Hct MCH MCHC RDW Plt Count Lymph % (Auto) [place] % (Auto) Lymph # [place] # Seg Neutrophils % Seg Neuts % (Manual) Lymphocytes % (Manual) Monocytes % (Manual) Nucleated RBC % Seg Neutrophils # Seg Neutrophils # Man Lymphocytes # (Manual) Monocytes # (Manual) PT INR APTT Fibrinogen Heparin Anti-Xa Level POC ABG pH 7.236 L 7.280 L POC ABG pCO2 POC ABG pO2 139 H 145 H POC Potassium POC Chloride Sodium Potassium 3.4 L Chloride 114.5 H Carbon Dioxide 17 L D POC BUN BUN Creatinine Glucose 188 H POC Glucose Calcium 6.1 L D Magnesium Crossmatch 06/16/16 06/17/16 06/17/16 22:53 04:48 05:35 WBC RBC Hgb POC Hgb Hct POC Hct MCH MCHC RDW Plt Count Lymph % (Auto) [place] % (Auto) Lymph # [place] # Seg Neutrophils % Seg Neuts % (Manual) Lymphocytes % (Manual) Monocytes % (Manual) Nucleated RBC % Seg Neutrophils # Seg Neutrophils # Man Lymphocytes # (Manual) Monocytes # (Manual) PT INR APTT Fibrinogen Heparin Anti-Xa Level POC ABG pH POC ABG pCO2 33.9 L 22.2 L POC ABG pO2 152 H 154 H POC Potassium POC Chloride Sodium 150 H Potassium 3.4 L Chloride 114.2 H Carbon Dioxide 16 L POC BUN BUN Creatinine Glucose 221 H POC Glucose Calcium 7.6 L D Magnesium Crossmatch 06/17/16 06/18/16 06/18/16 09:22 07:26 08:25 WBC 20.3 H RBC 3.41 L Hgb 9.9 L POC Hgb Hct 29.7 L POC Hct MCH MCHC RDW Plt Count Lymph % (Auto) [place] % (Auto) Lymph # [place] # Seg Neutrophils % Seg Neuts % (Manual) 81.0 H Lymphocytes % (Manual) 6.0 L Monocytes % (Manual) 12.0 H Nucleated RBC % Seg Neutrophils # Seg Neutrophils # Man 16.4 H Lymphocytes # (Manual) Monocytes # (Manual) 2.4 H PT INR APTT Fibrinogen Heparin Anti-Xa Level POC ABG pH POC ABG pCO2 POC ABG pO2 POC Potassium POC Chloride Sodium Potassium 3.1 L Chloride Carbon Dioxide POC BUN BUN Creatinine Glucose 136 H POC Glucose 141 H Calcium 7.5 L Magnesium Crossmatch 06/18/16 06/18/16 06/18/16 08:25 11:09 19:40 WBC RBC Hgb 6.5 L D POC Hgb Hct 19.3 L* D POC Hct MCH MCHC RDW Plt Count 131 L Lymph % (Auto) [place] % (Auto) Lymph # [place] # Seg Neutrophils % Seg Neuts % (Manual) Lymphocytes % (Manual) Monocytes % (Manual) Nucleated RBC % Seg Neutrophils # Seg Neutrophils # Man Lymphocytes # (Manual) Monocytes # (Manual) PT INR APTT Fibrinogen Heparin Anti-Xa Level POC ABG pH 7.490 H POC ABG pCO2 POC ABG pO2 131 H POC Potassium POC Chloride Sodium Potassium Chloride Carbon Dioxide POC BUN BUN Creatinine Glucose POC Glucose 125 H Calcium Magnesium Crossmatch 06/18/16 06/19/16 06/19/16 21:10 07:07 07:28 WBC 13.6 H RBC 2.17 L Hgb 6.5 L POC Hgb Hct 18.8 L* POC Hct MCH MCHC 35 H RDW Plt Count 131 L Lymph % (Auto) 10.1 L [place] % (Auto) 9.3 H Lymph # [place] # 1.3 H Seg Neutrophils % 79.7 H Seg Neuts % (Manual) Lymphocytes % (Manual) Monocytes % (Manual) Nucleated RBC % Seg Neutrophils # 10.8 H Seg Neutrophils # Man Lymphocytes # (Manual) Monocytes # (Manual) PT INR APTT Fibrinogen Heparin Anti-Xa Level 0.75 H POC ABG pH POC ABG pCO2 POC ABG pO2 POC Potassium POC Chloride Sodium Potassium 3.5 L Chloride Carbon Dioxide POC BUN BUN Creatinine Glucose 104 H POC Glucose Calcium 7.6 L Magnesium 1.4 L Crossmatch 06/20/16 06/20/16 06/20/16 04:15 18:15 18:15 WBC 16.6 H RBC 1.19 L Hgb 9.2 L 3.5 L* D POC Hgb Hct 27.5 L D 11.0 L* D POC Hct MCH MCHC RDW Plt Count 138 L Lymph % (Auto) [place] % (Auto) Lymph # [place] # Seg Neutrophils % Seg Neuts % (Manual) Lymphocytes % (Manual) Monocytes % (Manual) Nucleated RBC % Seg Neutrophils # Seg Neutrophils # Man Lymphocytes # (Manual) Monocytes # (Manual) PT INR APTT Fibrinogen Heparin Anti-Xa Level POC ABG pH POC ABG pCO2 POC ABG pO2 POC Potassium POC Chloride Sodium 146 H Potassium Chloride Carbon Dioxide 14 L D POC BUN BUN Creatinine Glucose 31 L* POC Glucose Calcium 6.7 L Magnesium Crossmatch 06/20/16 06/20/16 06/20/16 18:15 19:33 19:36 WBC RBC Hgb POC Hgb Hct POC Hct MCH MCHC RDW Plt Count Lymph % (Auto) [place] % (Auto) Lymph # [place] # Seg Neutrophils % Seg Neuts % (Manual) Lymphocytes % (Manual) Monocytes % (Manual) Nucleated RBC % Seg Neutrophils # Seg Neutrophils # Man Lymphocytes # (Manual) Monocytes # (Manual) PT INR APTT Fibrinogen Heparin Anti-Xa Level POC ABG pH POC ABG pCO2 26.3 L POC ABG pO2 394 H POC Potassium POC Chloride Sodium Potassium Chloride Carbon Dioxide POC BUN BUN Creatinine Glucose POC Glucose 212 H Calcium Magnesium Crossmatch See Detail 06/20/16 06/20/16 06/21/16 22:01 23:00 00:35 WBC RBC Hgb POC Hgb Hct POC Hct MCH MCHC RDW Plt Count Lymph % (Auto) [place] % (Auto) Lymph # [place] # Seg Neutrophils % Seg Neuts % (Manual) Lymphocytes % (Manual) Monocytes % (Manual) Nucleated RBC % Seg Neutrophils # Seg Neutrophils # Man Lymphocytes # (Manual) Monocytes # (Manual) PT 21.3 H INR 1.85 H APTT 48.4 H Fibrinogen Heparin Anti-Xa Level POC ABG pH POC ABG pCO2 POC ABG pO2 POC Potassium POC Chloride Sodium Potassium Chloride Carbon Dioxide POC BUN BUN Creatinine Glucose POC Glucose 149 H 147 H Calcium Magnesium Crossmatch 06/21/16 06/21/16 06/21/16 04:30 04:30 06:01 WBC 21.7 H RBC 3.58 L Hgb POC Hgb Hct POC Hct MCH MCHC 35 H RDW Plt Count 116 L Lymph % (Auto) [place] % (Auto) Lymph # [place] # Seg Neutrophils % Seg Neuts % (Manual) Lymphocytes % (Manual) 8.0 L Monocytes % (Manual) Nucleated RBC % 3.0 H Seg Neutrophils # Seg Neutrophils # Man 13.7 H Lymphocytes # (Manual) Monocytes # (Manual) 1.5 H PT INR APTT Fibrinogen Heparin Anti-Xa Level POC ABG pH 7.541 H POC ABG pCO2 21.1 L POC ABG pO2 108 H POC Potassium POC Chloride Sodium Potassium 3.0 L Chloride 110.3 H Carbon Dioxide 18 L POC BUN BUN 18 H Creatinine Glucose 141 H POC Glucose Calcium 6.4 L Magnesium Crossmatch 06/21/16 06/21/16 06/21/16 07:00 10:02 17:51 WBC RBC Hgb 8.3 L POC Hgb Hct 24.7 L D POC Hct MCH MCHC RDW Plt Count Lymph % (Auto) [place] % (Auto) Lymph # [place] # Seg Neutrophils % Seg Neuts % (Manual) Lymphocytes % (Manual) Monocytes % (Manual) Nucleated RBC % Seg Neutrophils # Seg Neutrophils # Man Lymphocytes # (Manual) Monocytes # (Manual) PT INR APTT Fibrinogen Heparin Anti-Xa Level POC ABG pH POC ABG pCO2 POC ABG pO2 POC Potassium POC Chloride Sodium Potassium Chloride Carbon Dioxide POC BUN BUN Creatinine Glucose POC Glucose 132 H 106 H Calcium Magnesium Crossmatch 06/22/16 06/22/16 06/22/16 05:00 05:00 06:40 WBC 20.6 H RBC 3.54 L Hgb POC Hgb Hct POC Hct MCH MCHC RDW Plt Count 129 L Lymph % (Auto) [place] % (Auto) Lymph # [place] # Seg Neutrophils % Seg Neuts % (Manual) 87.0 H Lymphocytes % (Manual) 4.0 L Monocytes % (Manual) Nucleated RBC % 4.0 H Seg Neutrophils # Seg Neutrophils # Man 17.9 H Lymphocytes # (Manual) 0.8 L Monocytes # (Manual) 1.2 H PT INR APTT Fibrinogen Heparin Anti-Xa Level POC ABG pH POC ABG pCO2 21.9 L POC ABG pO2 118 H POC Potassium POC Chloride Sodium Potassium Chloride 109.9 H Carbon Dioxide 15 L POC BUN BUN 26 H Creatinine 2.2 H D Glucose POC Glucose Calcium 6.3 L Magnesium Crossmatch 06/22/16 06/22/16 06/22/16 09:15 09:15 23:17 WBC RBC Hgb 9.1 L POC Hgb Hct 26.9 L POC Hct MCH MCHC RDW Plt Count 116 L Lymph % (Auto) [place] % (Auto) Lymph # [place] # Seg Neutrophils % Seg Neuts % (Manual) Lymphocytes % (Manual) Monocytes % (Manual) Nucleated RBC % Seg Neutrophils # Seg Neutrophils # Man Lymphocytes # (Manual) Monocytes # (Manual) PT 15.8 H INR 1.27 H APTT Fibrinogen Heparin Anti-Xa Level POC ABG pH POC ABG pCO2 POC ABG pO2 POC Potassium POC Chloride Sodium Potassium Chloride Carbon Dioxide POC BUN BUN Creatinine Glucose POC Glucose 134 H Calcium Magnesium Crossmatch 06/23/16 06/23/16 06/23/16 05:43 05:43 09:44 WBC 13.8 H RBC 2.70 L Hgb 8.1 L POC Hgb Hct 24.2 L POC Hct MCH MCHC RDW Plt Count 93 L Lymph % (Auto) 6.2 L [place] % (Auto) Lymph # 0.9 L [place] # Seg Neutrophils % 89.2 H Seg Neuts % (Manual) Lymphocytes % (Manual) Monocytes % (Manual) Nucleated RBC % Seg Neutrophils # 12.3 H Seg Neutrophils # Man Lymphocytes # (Manual) Monocytes # (Manual) PT INR APTT Fibrinogen Heparin Anti-Xa Level POC ABG pH 7.593 H POC ABG pCO2 26.8 L POC ABG pO2 141 H POC Potassium POC Chloride Sodium 146 H Potassium Chloride Carbon Dioxide POC BUN BUN 32 H Creatinine 2.6 H Glucose 142 H POC Glucose Calcium 7.0 L Magnesium Crossmatch 06/23/16 06/23/16 06/23/16 11:23 17:42 23:32 WBC RBC Hgb POC Hgb Hct POC Hct MCH MCHC RDW Plt Count Lymph % (Auto) [place] % (Auto) Lymph # [place] # Seg Neutrophils % Seg Neuts % (Manual) Lymphocytes % (Manual) Monocytes % (Manual) Nucleated RBC % Seg Neutrophils # Seg Neutrophils # Man Lymphocytes # (Manual) Monocytes # (Manual) PT INR APTT Fibrinogen Heparin Anti-Xa Level POC ABG pH POC ABG pCO2 POC ABG pO2 POC Potassium POC Chloride Sodium Potassium Chloride Carbon Dioxide POC BUN BUN Creatinine Glucose POC Glucose 138 H 133 H 111 H Calcium Magnesium Crossmatch 06/24/16 06/24/16 06/24/16 06:27 08:10 08:10 WBC 16.6 H RBC 2.91 L Hgb 8.9 L POC Hgb Hct 26.4 L POC Hct MCH MCHC RDW 15.6 H Plt Count 115 L Lymph % (Auto) 4.6 L [place] % (Auto) Lymph # 0.8 L [place] # 1.0 H Seg Neutrophils % 89.2 H Seg Neuts % (Manual) Lymphocytes % (Manual) Monocytes % (Manual) Nucleated RBC % Seg Neutrophils # 14.9 H Seg Neutrophils # Man Lymphocytes # (Manual) Monocytes # (Manual) PT INR APTT Fibrinogen Heparin Anti-Xa Level POC ABG pH POC ABG pCO2 POC ABG pO2 POC Potassium POC Chloride Sodium 146 H Potassium Chloride Carbon Dioxide POC BUN BUN 37 H Creatinine 2.9 H Glucose POC Glucose 109 H Calcium 7.5 L Magnesium Crossmatch 06/24/16 06/24/16 06/24/16 12:05 17:57 22:13 WBC RBC Hgb POC Hgb Hct POC Hct MCH MCHC RDW Plt Count Lymph % (Auto) [place] % (Auto) Lymph # [place] # Seg Neutrophils % Seg Neuts % (Manual) Lymphocytes % (Manual) Monocytes % (Manual) Nucleated RBC % Seg Neutrophils # Seg Neutrophils # Man Lymphocytes # (Manual) Monocytes # (Manual) PT INR APTT Fibrinogen Heparin Anti-Xa Level POC ABG pH POC ABG pCO2 POC ABG pO2 POC Potassium POC Chloride Sodium Potassium Chloride Carbon Dioxide POC BUN BUN Creatinine Glucose POC Glucose 117 H 124 H 116 H Calcium Magnesium Crossmatch 06/25/16 06/25/16 06:42 06:49 WBC RBC Hgb POC Hgb Hct POC Hct MCH MCHC RDW Plt Count Lymph % (Auto) [place] % (Auto) Lymph # [place] # Seg Neutrophils % Seg Neuts % (Manual) Lymphocytes % (Manual) Monocytes % (Manual) Nucleated RBC % Seg Neutrophils # Seg Neutrophils # Man Lymphocytes # (Manual) Monocytes # (Manual) PT INR APTT Fibrinogen Heparin Anti-Xa Level POC ABG pH POC ABG pCO2 POC ABG pO2 POC Potassium POC Chloride Sodium Potassium Chloride Carbon Dioxide POC BUN BUN 46 H Creatinine 3.6 H Glucose 133 H POC Glucose 137 H Calcium 7.4 L Magnesium Crossmatch
--- NOTE | 2016-06-25 12:02 | Consultation ---
History of Present Illness - Reason for Consult Consult date: 06/25/16 Evaluate for Acute IRU - History of Present Illness 55 y.o. female with history of severe PVD, admitted for thrombolysis to [facility]. Unfortunately, pt was found to have occlusion of the common femoral artery and SFA; recommended for left femoral endarterectomy and fem-pop bypass. Post-op course significant for acute respiratory failure requiring intubation; LLE groin hematoma; acute blood loss anemia requiring 15U pRBCs in total during hospitalization; leukocytosis; coffee ground emesis; currently with hematuria and worsening renal function. Pt was extubated on 06/23 and transferred from ICU on 06/24. On today, pt is sitting up on the side of the bed preparing to work with PT. Consult for post-acute placement recommendations. Past History Past Medical History: diabetes, hypertension, PVD, other (Obesity) Past Surgical History: Other (revascularization procedures) Social history: lives with family (sister). denies: alcohol abuse, prescription drug abuse Family history: diabetes, hypertension Medications and Allergies Allergies Allergy/AdvReac Type Severity Reaction Status Date / Time No Known Allergies Allergy Verified 01/24/15 14:51 Home Medications Medication Instructions Recorded Confirmed Last Taken Type Aspirin EC [Aspirin Enteric Coated 81 mg PO QDAY 01/25/15 06/13/16 06/13/16 History TAB] Atenolol/Chlorthalidone 1 each PO DAILY 01/25/15 06/13/16 06/13/16 History [Atenolol-Chlorthalidone 50-25] Clopidogrel [Plavix] 75 mg PO QDAY 01/25/15 06/13/16 06/13/16 History Ergocalciferol [Vitamin D2] 1 cap PO QWEEK 01/25/15 06/13/16 06/09/16 History Gabapentin [Neurontin] 300 mg PO Q8H 01/25/15 06/13/16 06/13/16 History Potassium Chloride 10 meq PO QDAY 01/25/15 06/13/16 06/13/16 History AtorvaSTATin [Lipitor] 40 mg PO QHS 06/22/16 06/22/16 Unknown History Ferrous Sulfate [Feosol] 325 mg PO QDAY 06/22/16 06/22/16 Unknown History Metformin HCl [Glucophage] 1,000 mg PO BID 12/11/16 12/11/16 Unknown History Active Meds: Active Medications Acetaminophen/Hydrocodone Bitart ([place] 7.5/325) 1 each PO Q4H PRN PRN Reason: Pain, Moderate (4-6) Apixaban (Eliquis) 10 mg PO Q12HR [facility] Last Admin: 06/25/16 09:29 Dose: 10 mg Aspirin (Halfprin Ec) 81 mg PO QDAY [facility] Last Admin: 06/25/16 09:29 Dose: 81 mg Atenolol (Tenormin) 50 mg PO QDAY [facility] Last Admin: 06/25/16 09:30 Dose: 50 mg Atorvastatin Calcium (Lipitor) 40 mg PO QHS [facility] Last Admin: 06/24/16 23:03 Dose: 40 mg Clopidogrel Bisulfate (Plavix) 75 mg PO QDAY [facility] Last Admin: 06/25/16 09:29 Dose: 75 mg Ergocalciferol (Vitamin D2) 50,000 unit PO Mo [facility] Last Admin: 06/23/16 16:24 Dose: 50,000 unit Ferrous Sulfate (Feosol) 325 mg PO QDAY [facility] Last Admin: 06/25/16 09:29 Dose: 325 mg Haloperidol Lactate (Haldol) 5 mg IV Q6H PRN PRN Reason: Agitation Last Admin: 06/24/16 07:35 Dose: 5 mg Hydrophilic Ointment (Vaseline Lip Therapy) 1 applic TP Q2H PRN PRN Reason: Dry Lips Dextrose/Sodium Chloride (D5/0.45ns) 1,000 mls @ 75 mls/hr IV DIRECT [facility] Last Admin: 06/25/16 05:48 Dose: 75 mls/hr Morphine Sulfate (Morphine) 4 mg IV Q4H PRN PRN Reason: Pain , Severe (7-10) Multi-Ingred Cream/Lotion/Oil/Oint (Artificial Tears Ophth Oint) 1 applic OU Q4H PRN PRN Reason: Dry Eye(s) Naloxone HCl (Narcan 0.4 Mg/1 Ml) 0.1 mg IV Q2MIN PRN PRN Reason: Res Rate </= 8 or 02 SAT < 92% Ondansetron HCl (Zofran) 4 mg IV Q8H PRN PRN Reason: Nausea And Vomiting Last Admin: 06/16/16 22:21 Dose: 4 mg Pantoprazole Sodium (Protonix) 40 mg PO DAILY [facility] Last Admin: 06/25/16 09:29 Dose: 40 mg Review of Systems All systems: negative Constitutional: no poor appetite (eating well) Ears, nose, mouth and throat: no headache Cardiovascular: edema (significant in BLE), no chest pain, no lightheadedness Respiratory: no cough, no shortness of breath Gastrointestinal: no nausea, no vomiting Genitourinary Female: hematuria, other (black in place) Musculoskeletal: gait dysfunction Exam - Constitutional Vitals: Vital Signs - 12hr 06/25/16 06/25/16 08:05 09:30 Temperature 98.3 F Pulse Rate 84 Pulse Rate [ 84 Left Radial] Respiratory 20 Rate Blood Pressure 161/82 Blood Pressure 161/82 [Left Arm] O2 Sat by Pulse 99 Oximetry General appearance: no acute distress, obese, other (sitting up on edge of bed) - EENT Eyes: EOM intact ENT: hearing intact - Neck Neck: supple, normal ROM - Respiratory Respiratory effort: normal Respiratory: bilateral: CTA - Cardiovascular Rhythm: regular Heart Sounds: Present: S1 & S2 - Extremities Extremity abnormal: edema (BLE) - Gastrointestinal General gastrointestinal: Present: soft, non-tender, non-distended, normal bowel sounds - Musculoskeletal Musculoskeletal: generalized weakness (very limited active movement in BLE in seated position, likely secondary to significant swelling; trace hip flexion on RLE; 1/5 right knee extension), other (good movement ROM at BUE) - Neurologic Neurologic: CNII-XII intact, other (sensation is grossly intact) - Psychiatric Psychiatric: appropriate mood/affect, intact judgment & insight, no memory intact (oriented to self, "2015"; aware of month; unaware of reason she is in the hospital), cooperative (follows all commands) - Allied health notes Allied health notes reviewed: PT (mod-maxA 1-2 persons for bed mobility, no gait or ambulation on evaluation; PT F/U currently being completed) - Labs CBC & Chem 7: 06/24/16 08:10 06/25/16 06:49 Labs: Laboratory Results - last 72 hr 06/20/16 06/22/16 06/22/16 18:15 12:02 16:37 WBC RBC Hgb Hct MCV MCH MCHC RDW Plt Count Lymph % (Auto) [place] % (Auto) Eos % (Auto) Baso % (Auto) Lymph # [place] # Eos # Baso # Seg Neutrophils % Seg Neutrophils # Heparin Anti-Xa Level 0.54 POC ABG pH POC ABG pCO2 POC ABG pO2 POC ABG HCO3 POC ABG Total CO2 POC ABG O2 Sat POC ABG Base Excess FiO2 Sodium Potassium Chloride Carbon Dioxide Anion Gap BUN Creatinine Estimated GFR BUN/Creatinine Ratio Glucose POC Glucose 101 Calcium Crossmatch See Detail 06/22/16 06/22/16 06/22/16 17:23 23:07 23:17 WBC RBC Hgb Hct MCV MCH MCHC RDW Plt Count Lymph % (Auto) [place] % (Auto) Eos % (Auto) Baso % (Auto) Lymph # [place] # Eos # Baso # Seg Neutrophils % Seg Neutrophils # Heparin Anti-Xa Level 0.60 POC ABG pH POC ABG pCO2 POC ABG pO2 POC ABG HCO3 POC ABG Total CO2 POC ABG O2 Sat POC ABG Base Excess FiO2 Sodium Potassium Chloride Carbon Dioxide Anion Gap BUN Creatinine Estimated GFR BUN/Creatinine Ratio Glucose POC Glucose 92 134 H Calcium Crossmatch 06/23/16 06/23/16 06/23/16 05:43 05:43 05:43 WBC 13.8 H RBC 2.70 L Hgb 8.1 L Hct 24.2 L MCV 89 MCH 30 MCHC 34 RDW 15.1 Plt Count 93 L Lymph % (Auto) 6.2 L [place] % (Auto) 4.3 Eos % (Auto) 0.1 Baso % (Auto) 0.2 Lymph # 0.9 L [place] # 0.6 Eos # 0.0 Baso # 0.0 Seg Neutrophils % 89.2 H Seg Neutrophils # 12.3 H Heparin Anti-Xa Level 0.58 POC ABG pH POC ABG pCO2 POC ABG pO2 POC ABG HCO3 POC ABG Total CO2 POC ABG O2 Sat POC ABG Base Excess FiO2 Sodium 146 H Potassium 3.6 Chloride 106.8 Carbon Dioxide 22 D Anion Gap 21 BUN 32 H Creatinine 2.6 H Estimated GFR 23 BUN/Creatinine Ratio 12.30 Glucose 142 H POC Glucose Calcium 7.0 L Crossmatch 06/23/16 06/23/16 06/23/16 09:44 11:23 17:42 WBC RBC Hgb Hct MCV MCH MCHC RDW Plt Count Lymph % (Auto) [place] % (Auto) Eos % (Auto) Baso % (Auto) Lymph # [place] # Eos # Baso # Seg Neutrophils % Seg Neutrophils # Heparin Anti-Xa Level POC ABG pH 7.593 H POC ABG pCO2 26.8 L POC ABG pO2 141 H POC ABG HCO3 25.8 POC ABG Total CO2 27 POC ABG O2 Sat 100 POC ABG Base Excess 4 FiO2 30 Sodium Potassium Chloride Carbon Dioxide Anion Gap BUN Creatinine Estimated GFR BUN/Creatinine Ratio Glucose POC Glucose 138 H 133 H Calcium Crossmatch 06/23/16 06/24/16 06/24/16 23:32 06:00 06:27 WBC RBC Hgb Hct MCV MCH MCHC RDW Plt Count Lymph % (Auto) [place] % (Auto) Eos % (Auto) Baso % (Auto) Lymph # [place] # Eos # Baso # Seg Neutrophils % Seg Neutrophils # Heparin Anti-Xa Level 0.67 POC ABG pH POC ABG pCO2 POC ABG pO2 POC ABG HCO3 POC ABG Total CO2 POC ABG O2 Sat POC ABG Base Excess FiO2 Sodium Potassium Chloride Carbon Dioxide Anion Gap BUN Creatinine Estimated GFR BUN/Creatinine Ratio Glucose POC Glucose 111 H 109 H Calcium Crossmatch 06/24/16 06/24/16 06/24/16 08:10 08:10 12:05 WBC 16.6 H RBC 2.91 L Hgb 8.9 L Hct 26.4 L MCV 91 MCH 30 MCHC 34 RDW 15.6 H Plt Count 115 L Lymph % (Auto) 4.6 L [place] % (Auto) 6.0 Eos % (Auto) 0.1 Baso % (Auto) 0.1 Lymph # 0.8 L [place] # 1.0 H Eos # 0.0 Baso # 0.0 Seg Neutrophils % 89.2 H Seg Neutrophils # 14.9 H Heparin Anti-Xa Level POC ABG pH POC ABG pCO2 POC ABG pO2 POC ABG HCO3 POC ABG Total CO2 POC ABG O2 Sat POC ABG Base Excess FiO2 Sodium 146 H Potassium 3.8 Chloride 104.3 Carbon Dioxide 23 Anion Gap 23 BUN 37 H Creatinine 2.9 H Estimated GFR 20 BUN/Creatinine Ratio 12.75 Glucose 93 POC Glucose 117 H Calcium 7.5 L Crossmatch 06/24/16 06/24/16 06/25/16 17:57 22:13 06:42 WBC RBC Hgb Hct MCV MCH MCHC RDW Plt Count Lymph % (Auto) [place] % (Auto) Eos % (Auto) Baso % (Auto) Lymph # [place] # Eos # Baso # Seg Neutrophils % Seg Neutrophils # Heparin Anti-Xa Level POC ABG pH POC ABG pCO2 POC ABG pO2 POC ABG HCO3 POC ABG Total CO2 POC ABG O2 Sat POC ABG Base Excess FiO2 Sodium Potassium Chloride Carbon Dioxide Anion Gap BUN Creatinine Estimated GFR BUN/Creatinine Ratio Glucose POC Glucose 124 H 116 H 137 H Calcium Crossmatch 06/25/16 06:49 WBC RBC Hgb Hct MCV MCH MCHC RDW Plt Count Lymph % (Auto) [place] % (Auto) Eos % (Auto) Baso % (Auto) Lymph # [place] # Eos # Baso # Seg Neutrophils % Seg Neutrophils # Heparin Anti-Xa Level POC ABG pH POC ABG pCO2 POC ABG pO2 POC ABG HCO3 POC ABG Total CO2 POC ABG O2 Sat POC ABG Base Excess FiO2 Sodium 142 Potassium 3.8 Chloride 103.7 Carbon Dioxide 22 Anion Gap 20 BUN 46 H Creatinine 3.6 H Estimated GFR 16 BUN/Creatinine Ratio 12.77 Glucose 133 H POC Glucose Calcium 7.4 L Crossmatch Assessment and Plan Patient was assessed and evaluated for Acute Inpatient Rehab Unit. 55 y.o. female with history of severe PVD, s/p left femoral endarterectomy and fem-pop bypass. Post-op course significant for acute respiratory failure requiring intubation; acute blood loss anemia; currently with hematuria and worsening renal function. Pt is noted to have ongoing medical and functional deficits following complicated hospitalization. Pt would significantly benefit from inpatient rehabilitation course to address significant weakness, decline in functional independence, balance, gait training, and ongoing medical needs. Pt is participating well with therapies and is thought to be able to participate in 3 hours of therapy including PT/OT, 5 days per week, and make reasonable functional improvement prior to returning home. Pt previously noted to be independent with functional mobility and self cares prior to admission. At this time, pt is noted to require mod-maxA x1-2 persons for bed mobility; PT follow-up visit is ongoing and pt is motivated to participate on today. Potential barriers/complications that would currently prevent a safe return home or transfer to a lower level of care include impaired mobility, balance, strength; falls risk; need for ongoing management of anemia, hematuria, renal failure, need for diuresis; high risk for readmission due to medical complexity. Pt has good rehab potential, good overall medical prognosis, and has good family support with high likelihood of returning to community at discharge. Pt meets all requirements for IRU admission, however, will require precertification prior to IPR admission; this will be initiated on today. Will continue to follow; thank you for consultation. - Patient Problems (1) Debility Current Visit: Yes Status: Acute (2) Peripheral vascular disease of extremity Current Visit: Yes Status: Acute (3) Acute blood loss anemia Current Visit: Yes Status: Acute (4) HTN (hypertension) Current Visit: Yes Status: Acute Qualifiers: Hypertension type: essential hypertension Qualified Code(s): I10 - Essential (primary) hypertension (5) ATN (acute tubular necrosis) Current Visit: Yes Status: Acute (6) Hematuria Current Visit: Yes Status: Acute
--- NOTE | 2016-06-25 15:49 | Progress Note ---
Assessment and Plan Pt more alert today. Denies complaint. Acute renal insuf. , nephrology consulted. Tolerating oral anticoagulants. Rehab eval in progress. - Patient Problems (1) Atherosclerosis of [place] arteries of extremity with intermittent claudication Current Visit: Yes Status: Acute Subjective Date of service: 06/25/16 Principal diagnosis: Acute Hypoxemic Respiratory Failure; s/p cardiopulmonary arrest Interval history: Pt awake , more alert today. Denies complaint at present. Objective - Constitutional Vitals: Vital Signs - 12hr 06/25/16 06/25/16 08:05 09:30 Temperature 98.3 F Pulse Rate 84 Pulse Rate [ 84 Left Radial] Respiratory 20 Rate Blood Pressure 161/82 Blood Pressure 161/82 [Left Arm] O2 Sat by Pulse 99 Oximetry General appearance: Present: no acute distress - EENT Eyes: EOM intact ENT: hearing intact - Neck Neck: supple - Respiratory Respiratory effort: normal Extremities: normal temperature Extremity abnormal: pulses diminished - Neurologic Neurologic: other (diminished motor and sensory function to BLE.) - Psychiatric Psychiatric: appropriate mood/affect, no intact judgment & insight, cooperative - Labs CBC & Chem 7: 06/24/16 08:10 06/25/16 06:49 Labs: Abnormal lab results 06/24/16 06/24/16 06/25/16 Range/Units 17:57 22:13 06:42 BUN (7-17) mg/dL Creatinine (0.7-1.2) mg/dL Glucose (65-100) mg/dL POC Glucose 124 H 116 H 137 H (70-105) Calcium (8.4-10.2) mg/dL 06/25/16 06/25/16 Range/Units 06:49 12:14 BUN 46 H (7-17) mg/dL Creatinine 3.6 H (0.7-1.2) mg/dL Glucose 133 H (65-100) mg/dL POC Glucose 136 H (70-105) Calcium 7.4 L (8.4-10.2) mg/dL
[2016-06-26 06:29] LABS: BUN/Creatinine Ratio 13.09; Calcium 7.5 mg/dL (8.4-10.2); Chloride 102.3 mmol/L (98-107); Potassium 3.7 mmol/L (3.6-5.0)
[2016-06-26] MEDS: ELIQUIS PO SCH (11:27)
[2016-06-26] MEDS: HALFPRIN EC PO SCH (11:27)
[2016-06-26] MEDS: FEOSOL PO SCH (11:27)
[2016-06-26] MEDS: TENORMIN PO SCH (11:28)
[2016-06-26] MEDS: PROTONIX PO SCH (11:28)
--- NOTE | 2016-06-26 11:36 | Progress Note ---
Assessment and Plan - Patient Problems (1) Peripheral vascular disease of extremity Current Visit: Yes Status: Acute Plan to address problem: - clinically limb is warm and non tender - further interventions per attending team (2) Acute respiratory failure Current Visit: Yes Status: Acute Plan to address problem: - improved - on nasal canula - continue aspiration precautions - prn bronchodilators - wean off oxygen for sats > 92% (3) Anemia Current Visit: Yes Status: Acute Plan to address problem: - follow H&H - was ABLA - PRBC transfusion prn (4) Altered mental status Current Visit: Yes Status: Acute Plan to address problem: - suspect dementia element - non focal exam - follows commands appropriately - will observe on monitored bed - improved overall Subjective Date of service: 06/26/16 Principal diagnosis: Acute Hypoxemic Respiratory Failure; s/p cardiopulmonary arrest Interval history: Seen and examined at bedside; 24 hour events reviewed; nursing and respiratory care staff consulted; no adverse overnight events reported to me; more alert; no N/V/F/C; no gross bleeding Objective Vital Signs - 12hr 06/26/16 06/26/16 06/26/16 00:00 00:20 05:13 Temperature 98.2 F Pulse Rate [ 76 Left Dorsalis Pedis] Pulse Rate [ 80 76 Left Radial] Pulse Rate [ 80 Left] Pulse Rate [ 74 Right Radial] Respiratory 20 20 Rate Respiratory 20 Rate [Bilateral Leg] Respiratory 20 Rate [R LOWER EXT] Blood Pressure 154/72 Blood Pressure 154/72 [Left Arm] O2 Sat by Pulse 100 Oximetry 06/26/16 06/26/16 08:00 11:28 Temperature 98.2 F Pulse Rate [ Left Dorsalis Pedis] Pulse Rate [ 80 Left Radial] Pulse Rate [ Left] Pulse Rate [ Right Radial] Respiratory 16 Rate Respiratory Rate [Bilateral Leg] Respiratory Rate [R LOWER EXT] Blood Pressure 144/70 144/70 Blood Pressure [Left Arm] O2 Sat by Pulse 100 Oximetry Constitutional: no acute distress, alert Eyes: non-icteric ENT: oropharynx moist Neck: supple, no lymphadenopathy Effort: normal Ascultation: Bilateral: diminished breath sounds, rhonchi (posterior bases) Cardiovascular: regular rate and rhythm Gastrointestinal: normoactive bowel sounds, soft, non-tender, non-distended Integumentary: other (weak LLExt) Extremities: no cyanosis, edema, other (LLExt pulses diminished but leg warm) Neurologic: normal mental status, non-focal exam, pupils equal and round, motor strength normal and Psychiatric: mood appropriate, affect normal CBC and BMP: 06/28/16 06:27 06/28/16 06:27 ABG, PT/INR, D-dimer: ABG POC ABG pH 7.593 (7.35-7.45) H 06/23/16 09:44 POC ABG pCO2 26.8 (35-45) L 06/23/16 09:44 POC ABG pO2 141 (80-105) H 06/23/16 09:44 POC ABG HCO3 25.8 06/23/16 09:44 POC ABG Total CO2 27 06/23/16 09:44 POC ABG O2 Sat 100 06/23/16 09:44 PT/INR, D-dimer PT 15.8 Sec. (12.2-14.9) H 06/22/16 09:15 INR 1.27 (0.87-1.13) H 06/22/16 09:15 Abnormal lab findings: Abnormal Labs 06/13/16 06/13/16 06/13/16 09:45 09:45 09:45 WBC RBC Hgb POC Hgb Hct POC Hct MCH 25 L MCHC RDW 15.8 H Plt Count Lymph % (Auto) Snyder % (Auto) 8.1 H Lymph # Snyder # Seg Neutrophils % Seg Neuts % (Manual) Lymphocytes % (Manual) Monocytes % (Manual) Nucleated RBC % Seg Neutrophils # Seg Neutrophils # Man Lymphocytes # (Manual) Monocytes # (Manual) PT INR APTT Fibrinogen 522 H Heparin Anti-Xa Level POC ABG pH POC ABG pCO2 POC ABG pO2 POC Potassium POC Chloride Sodium Potassium Chloride Carbon Dioxide POC BUN BUN Creatinine Glucose POC Glucose Calcium 10.3 H Magnesium Crossmatch 06/13/16 06/13/16 06/13/16 09:45 20:14 20:15 WBC RBC Hgb POC Hgb Hct POC Hct MCH MCHC RDW Plt Count Lymph % (Auto) [place] % (Auto) Lymph # Snyder # Seg Neutrophils % Seg Neuts % (Manual) Lymphocytes % (Manual) Monocytes % (Manual) Nucleated RBC % Seg Neutrophils # Seg Neutrophils # Man Lymphocytes # (Manual) Monocytes # (Manual) PT INR APTT 103.8 H* Fibrinogen Heparin Anti-Xa Level 0.72 H POC ABG pH POC ABG pCO2 POC ABG pO2 POC Potassium POC Chloride Sodium Potassium Chloride Carbon Dioxide POC BUN BUN Creatinine Glucose POC Glucose Calcium Magnesium Crossmatch See Detail 06/14/16 06/14/16 06/14/16 07:44 10:18 19:09 WBC RBC Hgb POC Hgb Hct POC Hct MCH 26 L MCHC RDW 15.8 H Plt Count Lymph % (Auto) [place] % (Auto) 9.1 H Lymph # [place] # Seg Neutrophils % Seg Neuts % (Manual) Lymphocytes % (Manual) Monocytes % (Manual) Nucleated RBC % Seg Neutrophils # Seg Neutrophils # Man Lymphocytes # (Manual) Monocytes # (Manual) PT INR APTT Fibrinogen Heparin Anti-Xa Level 0.76 H POC ABG pH POC ABG pCO2 POC ABG pO2 POC Potassium POC Chloride Sodium Potassium Chloride Carbon Dioxide POC BUN BUN Creatinine Glucose POC Glucose 106 H Calcium Magnesium Crossmatch 06/15/16 06/15/16 06/15/16 04:43 04:43 22:49 WBC RBC Hgb 9.2 L POC Hgb Hct 28.4 L POC Hct MCH MCHC RDW Plt Count Lymph % (Auto) [place] % (Auto) Lymph # [place] # Seg Neutrophils % Seg Neuts % (Manual) Lymphocytes % (Manual) Monocytes % (Manual) Nucleated RBC % Seg Neutrophils # Seg Neutrophils # Man Lymphocytes # (Manual) Monocytes # (Manual) PT INR APTT Fibrinogen Heparin Anti-Xa Level 0.85 H POC ABG pH POC ABG pCO2 POC ABG pO2 POC Potassium POC Chloride Sodium Potassium Chloride Carbon Dioxide POC BUN BUN Creatinine Glucose POC Glucose 134 H Calcium Magnesium Crossmatch 06/16/16 06/16/16 06/16/16 08:55 08:55 14:21 WBC RBC Hgb POC Hgb 5.8 L Hct POC Hct 17 L MCH MCHC RDW Plt Count Lymph % (Auto) [place] % (Auto) Lymph # [place] # Seg Neutrophils % Seg Neuts % (Manual) Lymphocytes % (Manual) Monocytes % (Manual) Nucleated RBC % Seg Neutrophils # Seg Neutrophils # Man Lymphocytes # (Manual) Monocytes # (Manual) PT INR APTT 20.0 L Fibrinogen Heparin Anti-Xa Level POC ABG pH POC ABG pCO2 POC ABG pO2 POC Potassium 2.9 L POC Chloride Sodium Potassium Chloride Carbon Dioxide POC BUN 7 L BUN Creatinine Glucose POC Glucose 249 H Calcium Magnesium Crossmatch See Detail 06/16/16 06/16/16 06/16/16 16:55 17:41 17:48 WBC RBC Hgb POC Hgb 8.8 L Hct POC Hct 26 L < 15 L MCH MCHC RDW Plt Count Lymph % (Auto) [place] % (Auto) Lymph # [place] # Seg Neutrophils % Seg Neuts % (Manual) Lymphocytes % (Manual) Monocytes % (Manual) Nucleated RBC % Seg Neutrophils # Seg Neutrophils # Man Lymphocytes # (Manual) Monocytes # (Manual) PT INR APTT Fibrinogen Heparin Anti-Xa Level POC ABG pH 7.031 L POC ABG pCO2 POC ABG pO2 475 H POC Potassium 3.2 L POC Chloride 112 H 114 H Sodium Potassium Chloride Carbon Dioxide POC BUN 7 L 7 L BUN Creatinine Glucose POC Glucose 203 H 291 H Calcium Magnesium Crossmatch 06/16/16 06/16/16 06/16/16 18:07 19:09 20:10 WBC 15.8 H RBC Hgb POC Hgb 6.5 L Hct POC Hct 19 L MCH MCHC RDW Plt Count 38 L Lymph % (Auto) 5.9 L [place] % (Auto) 9.3 H Lymph # 0.9 L Snyder # 1.5 H Seg Neutrophils % 84.6 H Seg Neuts % (Manual) Lymphocytes % (Manual) Monocytes % (Manual) Nucleated RBC % Seg Neutrophils # 13.3 H Seg Neutrophils # Man Lymphocytes # (Manual) Monocytes # (Manual) PT INR APTT Fibrinogen Heparin Anti-Xa Level POC ABG pH POC ABG pCO2 POC ABG pO2 POC Potassium POC Chloride 113 H Sodium Potassium Chloride Carbon Dioxide POC BUN 7 L BUN Creatinine Glucose POC Glucose 263 H 231 H Calcium Magnesium Crossmatch 06/16/16 06/16/16 06/16/16 20:10 20:18 21:10 WBC RBC Hgb POC Hgb Hct POC Hct MCH MCHC RDW Plt Count Lymph % (Auto) [place] % (Auto) Lymph # [place] # Seg Neutrophils % Seg Neuts % (Manual) Lymphocytes % (Manual) Monocytes % (Manual) Nucleated RBC % Seg Neutrophils # Seg Neutrophils # Man Lymphocytes # (Manual) Monocytes # (Manual) PT INR APTT Fibrinogen Heparin Anti-Xa Level POC ABG pH 7.236 L 7.280 L POC ABG pCO2 POC ABG pO2 139 H 145 H POC Potassium POC Chloride Sodium Potassium 3.4 L Chloride 114.5 H Carbon Dioxide 17 L D POC BUN BUN Creatinine Glucose 188 H POC Glucose Calcium 6.1 L D Magnesium Crossmatch 06/16/16 06/17/16 06/17/16 22:53 04:48 05:35 WBC RBC Hgb POC Hgb Hct POC Hct MCH MCHC RDW Plt Count Lymph % (Auto) [place] % (Auto) Lymph # Snyder # Seg Neutrophils % Seg Neuts % (Manual) Lymphocytes % (Manual) Monocytes % (Manual) Nucleated RBC % Seg Neutrophils # Seg Neutrophils # Man Lymphocytes # (Manual) Monocytes # (Manual) PT INR APTT Fibrinogen Heparin Anti-Xa Level POC ABG pH POC ABG pCO2 33.9 L 22.2 L POC ABG pO2 152 H 154 H POC Potassium POC Chloride Sodium 150 H Potassium 3.4 L Chloride 114.2 H Carbon Dioxide 16 L POC BUN BUN Creatinine Glucose 221 H POC Glucose Calcium 7.6 L D Magnesium Crossmatch 06/17/16 06/18/16 06/18/16 09:22 07:26 08:25 WBC 20.3 H RBC 3.41 L Hgb 9.9 L POC Hgb Hct 29.7 L POC Hct MCH MCHC RDW Plt Count Lymph % (Auto) [place] % (Auto) Lymph # Snyder # Seg Neutrophils % Seg Neuts % (Manual) 81.0 H Lymphocytes % (Manual) 6.0 L Monocytes % (Manual) 12.0 H Nucleated RBC % Seg Neutrophils # Seg Neutrophils # Man 16.4 H Lymphocytes # (Manual) Monocytes # (Manual) 2.4 H PT INR APTT Fibrinogen Heparin Anti-Xa Level POC ABG pH POC ABG pCO2 POC ABG pO2 POC Potassium POC Chloride Sodium Potassium 3.1 L Chloride Carbon Dioxide POC BUN BUN Creatinine Glucose 136 H POC Glucose 141 H Calcium 7.5 L Magnesium Crossmatch 06/18/16 06/18/16 06/18/16 08:25 11:09 19:40 WBC RBC Hgb 6.5 L D POC Hgb Hct 19.3 L* D POC Hct MCH MCHC RDW Plt Count 131 L Lymph % (Auto) [place] % (Auto) Lymph # Snyder # Seg Neutrophils % Seg Neuts % (Manual) Lymphocytes % (Manual) Monocytes % (Manual) Nucleated RBC % Seg Neutrophils # Seg Neutrophils # Man Lymphocytes # (Manual) Monocytes # (Manual) PT INR APTT Fibrinogen Heparin Anti-Xa Level POC ABG pH 7.490 H POC ABG pCO2 POC ABG pO2 131 H POC Potassium POC Chloride Sodium Potassium Chloride Carbon Dioxide POC BUN BUN Creatinine Glucose POC Glucose 125 H Calcium Magnesium Crossmatch 06/18/16 06/19/16 06/19/16 21:10 07:07 07:28 WBC 13.6 H RBC 2.17 L Hgb 6.5 L POC Hgb Hct 18.8 L* POC Hct MCH MCHC 35 H RDW Plt Count 131 L Lymph % (Auto) 10.1 L [place] % (Auto) 9.3 H Lymph # Snyder # 1.3 H Seg Neutrophils % 79.7 H Seg Neuts % (Manual) Lymphocytes % (Manual) Monocytes % (Manual) Nucleated RBC % Seg Neutrophils # 10.8 H Seg Neutrophils # Man Lymphocytes # (Manual) Monocytes # (Manual) PT INR APTT Fibrinogen Heparin Anti-Xa Level 0.75 H POC ABG pH POC ABG pCO2 POC ABG pO2 POC Potassium POC Chloride Sodium Potassium 3.5 L Chloride Carbon Dioxide POC BUN BUN Creatinine Glucose 104 H POC Glucose Calcium 7.6 L Magnesium 1.4 L Crossmatch 06/20/16 06/20/16 06/20/16 04:15 18:15 18:15 WBC 16.6 H RBC 1.19 L Hgb 9.2 L 3.5 L* D POC Hgb Hct 27.5 L D 11.0 L* D POC Hct MCH MCHC RDW Plt Count 138 L Lymph % (Auto) [place] % (Auto) Lymph # Snyder # Seg Neutrophils % Seg Neuts % (Manual) Lymphocytes % (Manual) Monocytes % (Manual) Nucleated RBC % Seg Neutrophils # Seg Neutrophils # Man Lymphocytes # (Manual) Monocytes # (Manual) PT INR APTT Fibrinogen Heparin Anti-Xa Level POC ABG pH POC ABG pCO2 POC ABG pO2 POC Potassium POC Chloride Sodium 146 H Potassium Chloride Carbon Dioxide 14 L D POC BUN BUN Creatinine Glucose 31 L* POC Glucose Calcium 6.7 L Magnesium Crossmatch 06/20/16 06/20/16 06/20/16 18:15 19:33 19:36 WBC RBC Hgb POC Hgb Hct POC Hct MCH MCHC RDW Plt Count Lymph % (Auto) [place] % (Auto) Lymph # Snyder # Seg Neutrophils % Seg Neuts % (Manual) Lymphocytes % (Manual) Monocytes % (Manual) Nucleated RBC % Seg Neutrophils # Seg Neutrophils # Man Lymphocytes # (Manual) Monocytes # (Manual) PT INR APTT Fibrinogen Heparin Anti-Xa Level POC ABG pH POC ABG pCO2 26.3 L POC ABG pO2 394 H POC Potassium POC Chloride Sodium Potassium Chloride Carbon Dioxide POC BUN BUN Creatinine Glucose POC Glucose 212 H Calcium Magnesium Crossmatch See Detail 06/20/16 06/20/16 06/21/16 22:01 23:00 00:35 WBC RBC Hgb POC Hgb Hct POC Hct MCH MCHC RDW Plt Count Lymph % (Auto) Snyder % (Auto) Lymph # Snyder # Seg Neutrophils % Seg Neuts % (Manual) Lymphocytes % (Manual) Monocytes % (Manual) Nucleated RBC % Seg Neutrophils # Seg Neutrophils # Man Lymphocytes # (Manual) Monocytes # (Manual) PT 21.3 H INR 1.85 H APTT 48.4 H Fibrinogen Heparin Anti-Xa Level POC ABG pH POC ABG pCO2 POC ABG pO2 POC Potassium POC Chloride Sodium Potassium Chloride Carbon Dioxide POC BUN BUN Creatinine Glucose POC Glucose 149 H 147 H Calcium Magnesium Crossmatch 06/21/16 06/21/16 06/21/16 04:30 04:30 06:01 WBC 21.7 H RBC 3.58 L Hgb POC Hgb Hct POC Hct MCH MCHC 35 H RDW Plt Count 116 L Lymph % (Auto) Snyder % (Auto) Lymph # Snyder # Seg Neutrophils % Seg Neuts % (Manual) Lymphocytes % (Manual) 8.0 L Monocytes % (Manual) Nucleated RBC % 3.0 H Seg Neutrophils # Seg Neutrophils # Man 13.7 H Lymphocytes # (Manual) Monocytes # (Manual) 1.5 H PT INR APTT Fibrinogen Heparin Anti-Xa Level POC ABG pH 7.541 H POC ABG pCO2 21.1 L POC ABG pO2 108 H POC Potassium POC Chloride Sodium Potassium 3.0 L Chloride 110.3 H Carbon Dioxide 18 L POC BUN BUN 18 H Creatinine Glucose 141 H POC Glucose Calcium 6.4 L Magnesium Crossmatch 06/21/16 06/21/16 06/21/16 07:00 10:02 17:51 WBC RBC Hgb 8.3 L POC Hgb Hct 24.7 L D POC Hct MCH MCHC RDW Plt Count Lymph % (Auto) Snyder % (Auto) Lymph # Snyder # Seg Neutrophils % Seg Neuts % (Manual) Lymphocytes % (Manual) Monocytes % (Manual) Nucleated RBC % Seg Neutrophils # Seg Neutrophils # Man Lymphocytes # (Manual) Monocytes # (Manual) PT INR APTT Fibrinogen Heparin Anti-Xa Level POC ABG pH POC ABG pCO2 POC ABG pO2 POC Potassium POC Chloride Sodium Potassium Chloride Carbon Dioxide POC BUN BUN Creatinine Glucose POC Glucose 132 H 106 H Calcium Magnesium Crossmatch 06/22/16 06/22/16 06/22/16 05:00 05:00 06:40 WBC 20.6 H RBC 3.54 L Hgb POC Hgb Hct POC Hct MCH MCHC RDW Plt Count 129 L Lymph % (Auto) Snyder % (Auto) Lymph # Snyder # Seg Neutrophils % Seg Neuts % (Manual) 87.0 H Lymphocytes % (Manual) 4.0 L Monocytes % (Manual) Nucleated RBC % 4.0 H Seg Neutrophils # Seg Neutrophils # Man 17.9 H Lymphocytes # (Manual) 0.8 L Monocytes # (Manual) 1.2 H PT INR APTT Fibrinogen Heparin Anti-Xa Level POC ABG pH POC ABG pCO2 21.9 L POC ABG pO2 118 H POC Potassium POC Chloride Sodium Potassium Chloride 109.9 H Carbon Dioxide 15 L POC BUN BUN 26 H Creatinine 2.2 H D Glucose POC Glucose Calcium 6.3 L Magnesium Crossmatch 06/22/16 06/22/16 06/22/16 09:15 09:15 23:17 WBC RBC Hgb 9.1 L POC Hgb Hct 26.9 L POC Hct MCH MCHC RDW Plt Count 116 L Lymph % (Auto) Snyder % (Auto) Lymph # Snyder # Seg Neutrophils % Seg Neuts % (Manual) Lymphocytes % (Manual) Monocytes % (Manual) Nucleated RBC % Seg Neutrophils # Seg Neutrophils # Man Lymphocytes # (Manual) Monocytes # (Manual) PT 15.8 H INR 1.27 H APTT Fibrinogen Heparin Anti-Xa Level POC ABG pH POC ABG pCO2 POC ABG pO2 POC Potassium POC Chloride Sodium Potassium Chloride Carbon Dioxide POC BUN BUN Creatinine Glucose POC Glucose 134 H Calcium Magnesium Crossmatch 06/23/16 06/23/16 06/23/16 05:43 05:43 09:44 WBC 13.8 H RBC 2.70 L Hgb 8.1 L POC Hgb Hct 24.2 L POC Hct MCH MCHC RDW Plt Count 93 L Lymph % (Auto) 6.2 L Snyder % (Auto) Lymph # 0.9 L Snyder # Seg Neutrophils % 89.2 H Seg Neuts % (Manual) Lymphocytes % (Manual) Monocytes % (Manual) Nucleated RBC % Seg Neutrophils # 12.3 H Seg Neutrophils # Man Lymphocytes # (Manual) Monocytes # (Manual) PT INR APTT Fibrinogen Heparin Anti-Xa Level POC ABG pH 7.593 H POC ABG pCO2 26.8 L POC ABG pO2 141 H POC Potassium POC Chloride Sodium 146 H Potassium Chloride Carbon Dioxide POC BUN BUN 32 H Creatinine 2.6 H Glucose 142 H POC Glucose Calcium 7.0 L Magnesium Crossmatch 06/23/16 06/23/16 06/23/16 11:23 17:42 23:32 WBC RBC Hgb POC Hgb Hct POC Hct MCH MCHC RDW Plt Count Lymph % (Auto) Snyder % (Auto) Lymph # Snyder # Seg Neutrophils % Seg Neuts % (Manual) Lymphocytes % (Manual) Monocytes % (Manual) Nucleated RBC % Seg Neutrophils # Seg Neutrophils # Man Lymphocytes # (Manual) Monocytes # (Manual) PT INR APTT Fibrinogen Heparin Anti-Xa Level POC ABG pH POC ABG pCO2 POC ABG pO2 POC Potassium POC Chloride Sodium Potassium Chloride Carbon Dioxide POC BUN BUN Creatinine Glucose POC Glucose 138 H 133 H 111 H Calcium Magnesium Crossmatch 06/24/16 06/24/16 06/24/16 06:27 08:10 08:10 WBC 16.6 H RBC 2.91 L Hgb 8.9 L POC Hgb Hct 26.4 L POC Hct MCH MCHC RDW 15.6 H Plt Count 115 L Lymph % (Auto) 4.6 L Snyder % (Auto) Lymph # 0.8 L Snyder # 1.0 H Seg Neutrophils % 89.2 H Seg Neuts % (Manual) Lymphocytes % (Manual) Monocytes % (Manual) Nucleated RBC % Seg Neutrophils # 14.9 H Seg Neutrophils # Man Lymphocytes # (Manual) Monocytes # (Manual) PT INR APTT Fibrinogen Heparin Anti-Xa Level POC ABG pH POC ABG pCO2 POC ABG pO2 POC Potassium POC Chloride Sodium 146 H Potassium Chloride Carbon Dioxide POC BUN BUN 37 H Creatinine 2.9 H Glucose POC Glucose 109 H Calcium 7.5 L Magnesium Crossmatch 06/24/16 06/24/16 06/24/16 12:05 17:57 22:13 WBC RBC Hgb POC Hgb Hct POC Hct MCH MCHC RDW Plt Count Lymph % (Auto) Snyder % (Auto) Lymph # Snyder # Seg Neutrophils % Seg Neuts % (Manual) Lymphocytes % (Manual) Monocytes % (Manual) Nucleated RBC % Seg Neutrophils # Seg Neutrophils # Man Lymphocytes # (Manual) Monocytes # (Manual) PT INR APTT Fibrinogen Heparin Anti-Xa Level POC ABG pH POC ABG pCO2 POC ABG pO2 POC Potassium POC Chloride Sodium Potassium Chloride Carbon Dioxide POC BUN BUN Creatinine Glucose POC Glucose 117 H 124 H 116 H Calcium Magnesium Crossmatch 06/25/16 06/25/16 06/25/16 06:42 06:49 12:14 WBC RBC Hgb POC Hgb Hct POC Hct MCH MCHC RDW Plt Count Lymph % (Auto) Snyder % (Auto) Lymph # Snyder # Seg Neutrophils % Seg Neuts % (Manual) Lymphocytes % (Manual) Monocytes % (Manual) Nucleated RBC % Seg Neutrophils # Seg Neutrophils # Man Lymphocytes # (Manual) Monocytes # (Manual) PT INR APTT Fibrinogen Heparin Anti-Xa Level POC ABG pH POC ABG pCO2 POC ABG pO2 POC Potassium POC Chloride Sodium Potassium Chloride Carbon Dioxide POC BUN BUN 46 H Creatinine 3.6 H Glucose 133 H POC Glucose 137 H 136 H Calcium 7.4 L Magnesium Crossmatch 06/25/16 06/25/16 06/26/16 16:07 21:32 05:55 WBC RBC Hgb POC Hgb Hct POC Hct MCH MCHC RDW Plt Count Lymph % (Auto) Snyder % (Auto) Lymph # Snyder # Seg Neutrophils % Seg Neuts % (Manual) Lymphocytes % (Manual) Monocytes % (Manual) Nucleated RBC % Seg Neutrophils # Seg Neutrophils # Man Lymphocytes # (Manual) Monocytes # (Manual) PT INR APTT Fibrinogen Heparin Anti-Xa Level POC ABG pH POC ABG pCO2 POC ABG pO2 POC Potassium POC Chloride Sodium Potassium Chloride Carbon Dioxide 20 L POC BUN BUN 55 H Creatinine 4.2 H Glucose 120 H POC Glucose 146 H 146 H Calcium 7.5 L Magnesium Crossmatch 06/26/16 06:30 WBC RBC Hgb POC Hgb Hct POC Hct MCH MCHC RDW Plt Count Lymph % (Auto) Snyder % (Auto) Lymph # Snyder # Seg Neutrophils % Seg Neuts % (Manual) Lymphocytes % (Manual) Monocytes % (Manual) Nucleated RBC % Seg Neutrophils # Seg Neutrophils # Man Lymphocytes # (Manual) Monocytes # (Manual) PT INR APTT Fibrinogen Heparin Anti-Xa Level POC ABG pH POC ABG pCO2 POC ABG pO2 POC Potassium POC Chloride Sodium Potassium Chloride Carbon Dioxide POC BUN BUN Creatinine Glucose POC Glucose 128 H Calcium Magnesium Crossmatch
--- NOTE | 2016-06-26 11:43 | Progress Note ---
Addendum entered and electronically signed by LUI MCCABE MD 06/26/16 21: 59: Discontinued Eliquis. Start heparin drip (in case procedure required). Can be transition back to Eliquis if no intervention required. Addendum entered and electronically signed by LUI MCCABE MD 06/26/16 21: 54: Reviewed nephrology note. Not notified by nephrology about hydronephrosis. Ordered CT abdomen and pelvis without contrast for AM. Consulted urology for AM. NPO after MN in AM for possible procedures, if required. Original Note: Assessment and Plan Patient is awake without complaint at present. She has deconditioning and compromised sensorimotor function to her lower extremities. Rehabilitation evaluation in progress. She has an acute kidney injury. Her creatinine has increased to 4.2 today. Nephrology following. - Patient Problems (1) Atherosclerosis of [place] arteries of extremity with intermittent claudication Current Visit: Yes Status: Acute Subjective Date of service: 06/26/16 Principal diagnosis: Acute Hypoxemic Respiratory Failure; s/p cardiopulmonary arrest Interval history: Patient is awake and alert. She denies complaints at present. Objective - Constitutional Vitals: Vital Signs - 12hr 06/26/16 06/26/16 06/26/16 00:00 00:20 05:13 Temperature 98.2 F Pulse Rate [ 76 Left Dorsalis Pedis] Pulse Rate [ 80 76 Left Radial] Pulse Rate [ 80 Left] Pulse Rate [ 74 Right Radial] Respiratory 20 20 Rate Respiratory 20 Rate [Bilateral Leg] Respiratory 20 Rate [R LOWER EXT] Blood Pressure 154/72 Blood Pressure 154/72 [Left Arm] O2 Sat by Pulse 100 Oximetry 06/26/16 06/26/16 08:00 11:28 Temperature 98.2 F Pulse Rate [ Left Dorsalis Pedis] Pulse Rate [ 80 Left Radial] Pulse Rate [ Left] Pulse Rate [ Right Radial] Respiratory 16 Rate Respiratory Rate [Bilateral Leg] Respiratory Rate [R LOWER EXT] Blood Pressure 144/70 144/70 Blood Pressure [Left Arm] O2 Sat by Pulse 100 Oximetry General appearance: Present: no acute distress - EENT Eyes: EOM intact ENT: hearing intact - Neck Neck: supple - Respiratory Respiratory effort: normal Extremity abnormal: edema (continue mild to moderate bilateral lower extremity edema), other (both legs are hot) - Neurologic Neurologic: other (decreased motor and sensory function to both lower extremities) - Psychiatric Psychiatric: appropriate mood/affect, intact judgment & insight, cooperative - Labs CBC & Chem 7: 06/24/16 08:10 06/26/16 05:55 Labs: Abnormal lab results 06/25/16 06/25/16 06/25/16 Range/Units 12: 16:07 21:32 Carbon Dioxide (22-30) mmol/L BUN (7-17) mg/dL Creatinine (0.7-1.2) mg/dL Glucose (65-100) mg/dL POC Glucose 136 H 146 H 146 H (70-105) Calcium (8.4-10.2) mg/dL 06/26/16 06/26/16 Range/Units 05:55 06:30 Carbon Dioxide 20 L (22-30) mmol/L BUN 55 H (7-17) mg/dL Creatinine 4.2 H (0.7-1.2) mg/dL Glucose 120 H (65-100) mg/dL POC Glucose 128 H (70-105) Calcium 7.5 L (8.4-10.2) mg/dL
[2016-06-26] MEDS: NORCO 7.5/325 PO PRN (11:46)
[2016-06-26] MEDS: PLAVIX PO SCH (11:47)
--- NOTE | 2016-06-26 11:47 | Progress Note ---
Assessment and Plan Acute kidney injury in a patient who has multiple risk factors for underlying chronic kidney disease patient is currently nonoliguric , she has hydronephrosis on ultrasonogram, her vitals have been stable Likely etiology of her renal failure appears to be mixed resulting from obstructive uropathy acute tubular necrosis and some suspicion for drug-induced and social nephritis In her case please consider a urology evaluation immediately Creatinine is currently 4.2 with some evidence of metabolic acidosis it was 3.6 yesterday, at this time I will patiently watch her for another day if needed can consider renal replacement therapy currently asymptomatic in terms of renal failure. Plan of care was discussed with patient at length Patient's baseline creatinine is between 1-1.2 as of June 2016 Anemia in renal failure current hemoglobin is around 8.9 which was 8.1 earlier needs a follow-up on the CBC Hypernatremia appears to be doing better was 146 currently 138 Hypocalcemia improved Subjective Principal diagnosis: Acute Hypoxemic Respiratory Failure; s/p cardiopulmonary arrest Interval history: Seen today for follow-up patient denies any complaints specifically in terms of nausea vomiting or any shortness of breath creatinine has been worse but patient still continues to be nonoliguric Ultrasonogram shows evidence of hydronephrosis now Objective - Vital Signs Vital signs: Vital Signs - 12hr 06/26/16 06/26/16 06/26/16 00:00 00:20 05:13 Temperature 98.2 F Pulse Rate [ 76 Left Dorsalis Pedis] Pulse Rate [ 80 76 Left Radial] Pulse Rate [ 80 Left] Pulse Rate [ 74 Right Radial] Respiratory 20 20 Rate Respiratory 20 Rate [Bilateral Leg] Respiratory 20 Rate [R LOWER EXT] Blood Pressure 154/72 Blood Pressure 154/72 [Left Arm] O2 Sat by Pulse 100 Oximetry 06/26/16 06/26/16 08:00 11:28 Temperature 98.2 F Pulse Rate [ Left Dorsalis Pedis] Pulse Rate [ 80 Left Radial] Pulse Rate [ Left] Pulse Rate [ Right Radial] Respiratory 16 Rate Respiratory Rate [Bilateral Leg] Respiratory Rate [R LOWER EXT] Blood Pressure 144/70 144/70 Blood Pressure [Left Arm] O2 Sat by Pulse 100 Oximetry - General Appearance General appearance: appears stated age EENT: mucous membranes moist Neck: no JVD Respiratory: Present: Clear to Ascultation Cardiology: regular Gastrointestinal: normal (nontender abdomen no organomegaly no masses) Integumentary: no rash (2+ edema) Neurologic: other (alert awake oriented 4) - Lab 06/26/16 22:57 06/27/16 05:43 Most recent lab results Calcium 7.5 mg/dL (8.4-10.2) L 06/26/16 05:55 Magnesium 1.4 mg/dL (1.7-2.3) L 06/19/16 07:28
[2016-06-26] MEDS: D5/0.45NS 1,000 ML IV SCH (12:15)
[2016-06-26] MEDS: HEPARIN/ 0.45% NACL-25,000 UNIT/500 ML 500 ML IV SCH (23:28)
[2016-06-26 23:41] LABS: Hematocrit 25.1 % (30.3-42.9); Hemoglobin 8.4 gm/dl (10.1-14.3)
[2016-06-26 23:58] LABS: INR 1.69 (0.87-1.13); Partial Thromboplastin Time 32.8 Sec. (24.2-36.6)
[2016-06-27 06:39] LABS: BUN/Creatinine Ratio 12.08; Calcium 8.1 mg/dL (8.4-10.2); Chloride 102.7 mmol/L (98-107); Potassium 3.8 mmol/L (3.6-5.0)
[2016-06-27] MEDS: HALFPRIN EC PO SCH (10:47)
[2016-06-27] MEDS: FEOSOL PO SCH (10:47)
[2016-06-27] MEDS: PLAVIX PO SCH (10:47)
[2016-06-27] MEDS: TENORMIN PO SCH (10:48)
[2016-06-27] MEDS: PROTONIX PO SCH (10:48)
--- NOTE | 2016-06-27 11:38 | Consultation ---
History of Present Illness - Reason for Consult Consult date: 06/27/16 - History of Present Illness The patient is a 55 yo female admitted with severe PVD. She has undergone therapeutic intervention by Vascular (see notes) twice this admission, of the left lower extremity. After the procedure this admission, she coded, but was resuscitated, and has been in the ICU on the vent since then. She is stable today, on minimal pressor support; her mental status (per notes) is improved and she is interactive during the interview. She had emesis this AM of coffee grounds, and an NG tube was placed pt now on medical floor renal us bilat hydro wit cr 4.8 Past History Past Medical History: diabetes, hypertension, PVD, other (Obesity) Past Surgical History: Other (Vascular interventions as noted) Social history: denies: alcohol abuse, prescription drug abuse Family history: diabetes A/P Bilat [place] discussed with pt - recommend cysto, stents Past History Past Medical History: diabetes, hypertension, PVD, other (Obesity) Past Surgical History: Other (revascularization procedures) Social history: lives with family (sister). denies: alcohol abuse, prescription drug abuse Family history: diabetes, hypertension Medications and Allergies Allergies Allergy/AdvReac Type Severity Reaction Status Date / Time No Known Allergies Allergy Verified 01/24/15 14:51 Home Medications Medication Instructions Recorded Confirmed Last Taken Type Aspirin EC [Aspirin Enteric Coated 81 mg PO QDAY 01/25/15 06/13/16 06/13/16 History TAB] Atenolol/Chlorthalidone 1 each PO DAILY 01/25/15 06/13/16 06/13/16 History [Atenolol-Chlorthalidone 50-25] Clopidogrel [Plavix] 75 mg PO QDAY 01/25/15 06/13/16 06/13/16 History Ergocalciferol [Vitamin D2] 1 cap PO QWEEK 01/25/15 06/13/16 06/09/16 History Gabapentin [Neurontin] 300 mg PO Q8H 01/25/15 06/13/16 06/13/16 History Potassium Chloride 10 meq PO QDAY 01/25/15 06/13/16 06/13/16 History AtorvaSTATin [Lipitor] 40 mg PO QHS 06/22/16 06/22/16 Unknown History Ferrous Sulfate [Feosol] 325 mg PO QDAY 06/22/16 06/22/16 Unknown History Metformin HCl [Glucophage] 1,000 mg PO BID 06/22/16 06/22/16 Unknown History Active Meds: Active Medications Acetaminophen/Hydrocodone Bitart ([place] 7.5/325) 1 each PO Q4H PRN PRN Reason: Pain, Moderate (4-6) Last Admin: 06/26/16 11:46 Dose: 1 each Aspirin (Halfprin Ec) 81 mg PO QDAY [facility] Last Admin: 06/27/16 10:47 Dose: 81 mg Atenolol (Tenormin) 50 mg PO QDAY [facility] Last Admin: 06/27/16 10:48 Dose: 50 mg Atorvastatin Calcium (Lipitor) 40 mg PO QHS [facility] Last Admin: 06/26/16 23:28 Dose: 40 mg Clopidogrel Bisulfate (Plavix) 75 mg PO QDAY [facility] Last Admin: 06/27/16 10:47 Dose: 75 mg Ergocalciferol (Vitamin D2) 50,000 unit PO Mo [facility] Last Admin: 06/23/16 16:24 Dose: 50,000 unit Ferrous Sulfate (Feosol) 325 mg PO QDAY [facility] Last Admin: 06/27/16 10:47 Dose: 325 mg Haloperidol Lactate (Haldol) 5 mg IV Q6H PRN PRN Reason: Agitation Last Admin: 06/24/16 07:35 Dose: 5 mg Hydrophilic Ointment (Vaseline Lip Therapy) 1 applic TP Q2H PRN PRN Reason: Dry Lips Dextrose/Sodium Chloride (D5/0.45ns) 1,000 mls @ 75 mls/hr IV DIRECT [facility] Last Admin: 06/26/16 12:15 Dose: 75 mls/hr Heparin Sodium/Sodium Chloride (Heparin/ 0.45% Nacl-25,000 Unit/500 Ml) 500 mls @ 23 mls/hr IV TITR ANNA; 1,150 UNITS/HR PRN Reason: Protocol Last Titration: 06/27/16 10:27 Dose: 1,000 units/hr Morphine Sulfate (Morphine) 4 mg IV Q4H PRN PRN Reason: Pain , Severe (7-10) Multi-Ingred Cream/Lotion/Oil/Oint (Artificial Tears Ophth Oint) 1 applic OU Q4H PRN PRN Reason: Dry Eye(s) Naloxone HCl (Narcan 0.4 Mg/1 Ml) 0.1 mg IV Q2MIN PRN PRN Reason: Res Rate </= 8 or 02 SAT < 92% Ondansetron HCl (Zofran) 4 mg IV Q8H PRN PRN Reason: Nausea And Vomiting Last Admin: 06/16/16 22:21 Dose: 4 mg Pantoprazole Sodium (Protonix) 40 mg PO DAILY ANNA Last Admin: 06/27/16 10:48 Dose: 40 mg Exam - Constitutional Vitals: Temp Pulse Resp BP Pulse Ox 98 F 74 16 140/72 97 06/27/16 08:00 06/27/16 08:00 06/27/16 08:00 06/27/16 08:00 06/27/16 08:00 Results - Labs CBC & Chem 7: 06/26/16 22:57 06/27/16 05:43 Labs: Abnormal lab results 06/26/16 06/26/16 06/26/16 Range/Units 11:38 16:45 22:57 Hgb 8.4 L (10.1-14.3) gm/dl Hct 25.1 L (30.3-42.9) % PT (12.2-14.9) Sec. INR (0.87-1.13) Heparin Anti-Xa Level (0.3-0.7) U.I./ml Carbon Dioxide (22-30) mmol/L BUN (7-17) mg/dL Creatinine (0.7-1.2) mg/dL POC Glucose 143 H 121 H (70-105) Calcium (8.4-10.2) mg/dL 06/26/16 06/27/16 06/27/16 Range/Units 22:57 00:47 05:43 Hgb (10.1-14.3) gm/dl Hct (30.3-42.9) % PT 19.9 H (12.2-14.9) Sec. INR 1.69 H (0.87-1.13) Heparin Anti-Xa Level (0.3-0.7) U.I./ml Carbon Dioxide 20 L (22-30) mmol/L BUN 58 H (7-17) mg/dL Creatinine 4.8 H (0.7-1.2) mg/dL POC Glucose 110 H (70-105) Calcium 8.1 L (8.4-10.2) mg/dL 06/27/16 06/27/16 06/27/16 Range/Units 05:43 06:40 08:15 Hgb (10.1-14.3) gm/dl Hct (30.3-42.9) % PT (12.2-14.9) Sec. INR (0.87-1.13) Heparin Anti-Xa Level 2.00 H > 2.00 H (0.3-0.7) U.I./ml Carbon Dioxide (22-30) mmol/L BUN (7-17) mg/dL Creatinine (0.7-1.2) mg/dL POC Glucose 109 H (70-105) Calcium (8.4-10.2) mg/dL
--- NOTE | 2016-06-27 12:33 | Anesthesia Consultation ---
Anesthesia Consult and Med Hx Date of service: 06/27/16 - Airway Anesthetic Teeth Evaluation: Edentulous ROM Head & Neck: Adequate Mental/Hyoid Distance: Adequate Mallampati Class: Class II Intubation Access Assessment: Good - Pulmonary Exam CTA: Yes - Cardiac Exam Cardiac Exam: RRR - Pre-Operative Health Status ASA Pre-Surgery Classification: ASA3 - Pulmonary Hx Smoking: Yes Hx Asthma: No COPD: No Hx Pneumonia: No Hx Sleep Apnea: No - Cardiovascular System Hx Hypertension: Yes (2007, high cholesterol) Hx Peripheral Vascular Disease: Yes (with intermittent claudication, ischemic pain) - Central Nervous System CVA: Yes (5yrs ago) Hx Psychiatric Problems: No - Endocrine Hx End Stage Renal Disease: No - Hematic Hx Anemia: Yes - Other Systems Hx Cancer: No - Additional Comments Anesthesia Medical History Comments: s/p thrombolysis of LLE under local.
[2016-06-27] MEDS ORDERED: NACL 0.9% 1000 ML 1,000 ML ONE (12:45)
--- NOTE | 2016-06-27 12:53 | Progress Note ---
Assessment and Plan Acute kidney injury in a patient was somewhat symptomatic with nausea vomiting with obstructive uropathy and acute tubular necrosis likely Patient will need to start renal replacement therapy today she may require a few dialysis treatment as she clearly appears to be uremic at this point Hydronephrosis she has already been evaluated by urology Fluid overload resulting from renal failure Blood pressure is currently well controlled respiratory failure appears to have resolved at this point Patient is adequately counseled and educated about renal placement therapy She is willing to proceed with renal replacement therapy at this time We'll continue to follow and make recommendation from renal standpoint monitor for renal function recovery Subjective Principal diagnosis: Acute Hypoxemic Respiratory Failure; s/p cardiopulmonary arrest Interval history: Seen today for follow-up status post urology evaluation appreciated Patiently going for ureteral stent placement Has some nausea Events of 24 hours vitals labs intake output medications were reviewed Objective - Vital Signs Vital signs: Vital Signs - 12hr 06/27/16 08:00 Temperature 98 F Pulse Rate [ 74 Apical] Respiratory 16 Rate Blood Pressure 140/72 [Left Arm] O2 Sat by Pulse 97 Oximetry - General Appearance General appearance: appears stated age (alert awake) EENT: mucous membranes moist (no pharyngeal erythema mild uremic order) Neck: no JVD Respiratory: Present: Clear to Ascultation (clear to auscultation anteriorly possibly few faint basilar crackles) Cardiology: regular (S1-S2 heard no S3-S4 or rub) Gastrointestinal: normal (mild epigastric tenderness otherwise unremarkable examination) Neurologic: other (no asterixis today) - Lab 06/28/16 06:27 06/28/16 06:27 Most recent lab results Calcium 8.1 mg/dL (8.4-10.2) L 06/27/16 05:43 Magnesium 1.4 mg/dL (1.7-2.3) L 06/19/16 07:28
[2016-06-27] MEDS ORDERED: NACL 0.9% 1000 ML 1,000 ML IV SCH (13:00)
[2016-06-27] MEDS ORDERED: DIPRIVAN 10 MG/ML IV ONE (13:34)
[2016-06-27] MEDS ORDERED: SUBLIMAZE ONE (13:35)
[2016-06-27] MEDS ORDERED: XYLOCAINE MPF 2% ONE (13:35)
[2016-06-27] MEDS ORDERED: XYLOCAINE 2% UROJET UR ONE (14:00)
[2016-06-27] MEDS ORDERED: VERSED ONE (14:20)
[2016-06-27] MEDS ORDERED: METHYLENE BLUE IV ONE (14:20)
[2016-06-27] MEDS ORDERED: WATER FOR IRRIG STERILE IR ONE (14:20)
[2016-06-27] MEDS ORDERED: XYLOCAINE TOPICAL 2% TP ONE (14:20)
[2016-06-27] MEDS ORDERED: OMNIPAQUE (300 MG) IR ONE (14:20)
--- NOTE | 2016-06-27 14:56 | Post Operative Note ---
Pre-op diagnosis: hydro Post-op diagnosis: same Procedure: cysto, bilat stent Anesthesia: local Pathology: list (cystology) Condition: stable Disposition: PACU
--- NOTE | 2016-06-27 15:05 | Progress Note ---
Assessment and Plan Status post left iliofemoral endarterectomy, external iliac covered stents stents, and the femoropopliteal bypass. Postoperative retroperitoneal bleed confirmed on CT scan resulting in bilateral hydronephrosis which was successfully resolved with urologically placed double- J stents. Patient's hemodynamically stable and her leg is well vascularized. The leg is swollen. Plan: We'll hold heparin drip for now continue to observe. Apply Silvadene to the necrotic epidermis. Subjective Principal diagnosis: Acute Hypoxemic Respiratory Failure; s/p cardiopulmonary arrest Interval history: Patient was seen and examined in the cystoscopy room after having received 2 double-J stents for hydronephrosis. Patient is now sedated. Objective - Exam Narrative Exam: Left foot warm with good capillary refill. Left thigh is swollen, somewhat full. The incisions are well approximated with some sloughing of necrotic epidermis most likely due to swelling. - Constitutional Vitals: Vital Signs - 12hr 06/27/16 06/27/16 08:00 12:25 Temperature 98 F 100 F H Pulse Rate 92 H Pulse Rate [ 74 Apical] Respiratory 16 24 Rate Blood Pressure 155/51 Blood Pressure 140/72 [Left Arm] O2 Sat by Pulse 97 99 Oximetry - Labs CBC & Chem 7: 06/26/16 22:57 06/27/16 05:43 Labs: Abnormal lab results 06/26/16 06/26/16 06/26/16 Range/Units 16:45 22:57 22:57 Hgb 8.4 L (10.1-14.3) gm/dl Hct 25.1 L (30.3-42.9) % PT 19.9 H (12.2-14.9) Sec. INR 1.69 H (0.87-1.13) Heparin Anti-Xa Level (0.3-0.7) U.I./ml Carbon Dioxide (22-30) mmol/L BUN (7-17) mg/dL Creatinine (0.7-1.2) mg/dL POC Glucose 121 H (70-105) Calcium (8.4-10.2) mg/dL 06/27/16 06/27/16 06/27/16 Range/Units 00:47 05:43 05:43 Hgb (10.1-14.3) gm/dl Hct (30.3-42.9) % PT (12.2-14.9) Sec. INR (0.87-1.13) Heparin Anti-Xa Level 2.00 H (0.3-0.7) U.I./ml Carbon Dioxide 20 L (22-30) mmol/L BUN 58 H (7-17) mg/dL Creatinine 4.8 H (0.7-1.2) mg/dL POC Glucose 110 H (70-105) Calcium 8.1 L (8.4-10.2) mg/dL 06/27/16 06/27/16 Range/Units 06:40 08:15 Hgb (10.1-14.3) gm/dl Hct (30.3-42.9) % PT (12.2-14.9) Sec. INR (0.87-1.13) Heparin Anti-Xa Level > 2.00 H (0.3-0.7) U.I./ml Carbon Dioxide (22-30) mmol/L BUN (7-17) mg/dL Creatinine (0.7-1.2) mg/dL POC Glucose 109 H (70-105) Calcium (8.4-10.2) mg/dL
--- NOTE | 2016-06-27 15:17 | Cat Scan Report ---
CT ABDOMEN AND PELVIS WITHOUT CONTRAST INDICATION: Bilateral hydronephrosis. COMPARISON: 06/15/2016 FINDINGS: Noncontrast abdomen and pelvis CT performed. LUNG BASES: Stable heart size and atherosclerotic calcifications, including the right coronary artery. No pericardial effusion. However, new small bilateral pleural effusions measuring approximately 2 cm in AP thickness with underlying left lower lobe consolidation/air bronchograms noted. Mild nonspecific distal esophageal prominence/thickening as well. ABDOMEN: Please note that sensitivity to detect small visceral lesions is limited due to the absence of intravenous or oral contrast. New small perihepatic and minimal perisplenic ascites measuring 25 HU as on axial series 2, image 114, slightly complex/hemorrhagic. Otherwise grossly unremarkable unenhanced liver, spleen, pancreas, adrenals and nonaneurysmal abdominal aorta with few atherosclerotic calcifications. IVC again somewhat flattened with hypovolemia not excluded. Possible vicarious contrast excretion within the gallbladder. No size significant adenopathy. Mild stranding along both paracolic gutters noted. Nonopacified GI tract evaluation limited, though grossly nonobstructive. Specifically, stable bilateral renal contours with new mild bilateral hydroureteronephrosis followed up to the mid ureteral level. No radiopaque renal calculi. PELVIS: A new heterogeneous, though predominantly hyperdense left pelvic hematoma measuring approximately 11.5 x 8.8 cm, axial series 2, image 324 and approximately 9.5 cm craniocaudal displaces the myomatous uterus with few intrinsic calcifications now to about the midline. Gillespie catheter also decompresses the urinary bladder that is now displaced to the right. Diffuse pelvic fat stranding, including presacral. Grossly unremarkable rectosigmoid. Left common iliac and right external iliac artery stents again noted with new left external iliac artery stents extending into the left groin. Few postsurgical changes at the left groin also noted as also an approximately 5.7 x 3.7 cm left groin hematoma, axial image 352, series 2. Extensive diffuse abdomen and pelvic subcutaneous stranding/edema is new, some also extending to the included lower chest. Slight degenerative changes along the imaged spine. CONCLUSION: 1. New large left hemipelvic and a small left groin hematoma in this patient with interval left external iliac stent placements since 12 days ago, as described. 2. New bilateral hydroureteronephrosis, likely secondary to acute pelvic changes/extrinsic compression. 3. Extensive new diffuse subcutaneous edema. 4. New small bilateral pleural effusions, left lower lobe consolidation and small ascites. 5. New Gillespie catheter. 6. Various other incidental findings, including uterine fibroids and prior bilateral iliac artery stents, amongst others, as described. Thank you for the opportunity to participate in this patient's care.
[2016-06-27] MEDS ORDERED: NACL 0.9% IR PRN (18:27)
--- NOTE | 2016-06-27 19:28 | Post Anesthesia Evaluation ---
- Post Anesthesia Evaluation Patient Participated: Yes Airway Patent: Yes Stable Respiratory Function: Yes Nausea/Vomiting: No Temp > 96.8F: Yes Pain Manageable: Yes Adequeate Hydration: Yes Anesthesia Complications: No
--- NOTE | 2016-06-27 21:58 | Progress Note ---
Assessment and Plan Patient awake,following commands.No acute respiratory distress.Patient presently on room air. O2 satuaration 100%. - Patient Problems (1) Acute respiratory failure Current Visit: Yes Status: Acute Plan to address problem: Patient presently undergoing spontaneous breathing trials. Pressure support 10 cm H20 and FIO2 30%. 06/27/16 Respiratory status improved. No acute respiratory distress. On room air . O2 satuaration 100%. (2) Cardiopulmonary arrest with successful resuscitation Current Visit: Yes Status: Acute Plan to address problem: Patient resuciated . Patient is on mechanical ventilation and vasopressors. 06/27/16 Improved. alert,awake following commands. (3) Left lower lobe pneumonia Current Visit: Yes Status: Acute Plan to address problem: Patient running low grade temp. Patient has leukocytosis. Chest xray showing left lower lobe infiltrate, Obtaining blood cultures Tracheal aspirate for gram stain and C&S. Urin for U/A C&S. Starting on Zosyn. 06/27/16 Patient afebrile Repeating chest xray. (4) Atherosclerosis of [place] arteries of extremity with intermittent claudication Current Visit: Yes Status: Acute Plan to address problem: Management as per vascular surgery. (5) Metabolic acidosis Current Visit: Yes Status: Acute Plan to address problem: Obtaining Lactate level. Given I/V Bicarb. 06/27/16 Improving. (6) ATN (acute tubular necrosis) Current Visit: Yes Status: Acute Plan to address problem: Nephrology consulted. Management as per nephrology. Subjective Date of service: 06/27/16 Principal diagnosis: Acute Hypoxemic Respiratory Failure; s/p cardiopulmonary arrest Interval history: Patient awake,following commands.No acute respiratory distress.Patient presently on room air. O2 satuaration 100%. Objective Vital Signs - 12hr 06/27/16 06/27/16 06/27/16 12:25 15:15 15:20 Temperature 100 F H 98.9 F Pulse Rate 92 H 96 H 92 H Respiratory 24 17 18 Rate Blood Pressure 155/51 148/76 145/76 O2 Sat by Pulse 99 100 100 Oximetry 06/27/16 06/27/16 06/27/16 15:25 15:30 15:45 Temperature 98.2 F Pulse Rate 92 H 92 H 92 H Respiratory 17 17 17 Rate Blood Pressure 137/73 149/72 145/75 O2 Sat by Pulse 100 100 100 Oximetry Constitutional: no acute distress, alert Eyes: non-icteric ENT: oropharynx moist Neck: supple, no lymphadenopathy Effort: normal Ascultation: Bilateral: diminished breath sounds, rhonchi (posterior bases) Cardiovascular: regular rate and rhythm Gastrointestinal: normoactive bowel sounds, soft, non-tender, non-distended Integumentary: other (weak LLExt) Extremities: no cyanosis, edema, other (LLExt pulses diminished but leg warm) Neurologic: normal mental status, non-focal exam, pupils equal and round, motor strength normal and Psychiatric: mood appropriate, affect normal CBC and BMP: 06/26/16 22:57 06/27/16 05:43 ABG, PT/INR, D-dimer: ABG POC ABG pH 7.593 (7.35-7.45) H 06/23/16 09:44 POC ABG pCO2 26.8 (35-45) L 06/23/16 09:44 POC ABG pO2 141 (80-105) H 06/23/16 09:44 POC ABG HCO3 25.8 06/23/16 09:44 POC ABG Total CO2 27 06/23/16 09:44 POC ABG O2 Sat 100 06/23/16 09:44 PT/INR, D-dimer PT 19.9 Sec. (12.2-14.9) H 06/26/16 22:57 INR 1.69 (0.87-1.13) H 06/26/16 22:57 Abnormal lab findings: Abnormal Labs 06/13/16 06/13/16 06/13/16 09:45 09:45 09:45 WBC RBC Hgb POC Hgb Hct POC Hct MCH 25 L MCHC RDW 15.8 H Plt Count Lymph % (Auto) [place] % (Auto) 8.1 H Lymph # [place] # Seg Neutrophils % Seg Neuts % (Manual) Lymphocytes % (Manual) Monocytes % (Manual) Nucleated RBC % Seg Neutrophils # Seg Neutrophils # Man Lymphocytes # (Manual) Monocytes # (Manual) PT INR APTT Fibrinogen 522 H Heparin Anti-Xa Level POC ABG pH POC ABG pCO2 POC ABG pO2 POC Potassium POC Chloride Sodium Potassium Chloride Carbon Dioxide POC BUN BUN Creatinine Glucose POC Glucose Calcium 10.3 H Magnesium Crossmatch 06/13/16 06/13/16 06/13/16 09:45 20:14 20:15 WBC RBC Hgb POC Hgb Hct POC Hct MCH MCHC RDW Plt Count Lymph % (Auto) [place] % (Auto) Lymph # [place] # Seg Neutrophils % Seg Neuts % (Manual) Lymphocytes % (Manual) Monocytes % (Manual) Nucleated RBC % Seg Neutrophils # Seg Neutrophils # Man Lymphocytes # (Manual) Monocytes # (Manual) PT INR APTT 103.8 H* Fibrinogen Heparin Anti-Xa Level 0.72 H POC ABG pH POC ABG pCO2 POC ABG pO2 POC Potassium POC Chloride Sodium Potassium Chloride Carbon Dioxide POC BUN BUN Creatinine Glucose POC Glucose Calcium Magnesium Crossmatch See Detail 06/14/16 06/14/16 06/14/16 07:44 10:18 19:09 WBC RBC Hgb POC Hgb Hct POC Hct MCH 26 L MCHC RDW 15.8 H Plt Count Lymph % (Auto) [place] % (Auto) 9.1 H Lymph # [place] # Seg Neutrophils % Seg Neuts % (Manual) Lymphocytes % (Manual) Monocytes % (Manual) Nucleated RBC % Seg Neutrophils # Seg Neutrophils # Man Lymphocytes # (Manual) Monocytes # (Manual) PT INR APTT Fibrinogen Heparin Anti-Xa Level 0.76 H POC ABG pH POC ABG pCO2 POC ABG pO2 POC Potassium POC Chloride Sodium Potassium Chloride Carbon Dioxide POC BUN BUN Creatinine Glucose POC Glucose 106 H Calcium Magnesium Crossmatch 06/15/16 06/15/16 06/15/16 04:43 04:43 22:49 WBC RBC Hgb 9.2 L POC Hgb Hct 28.4 L POC Hct MCH MCHC RDW Plt Count Lymph % (Auto) [place] % (Auto) Lymph # [place] # Seg Neutrophils % Seg Neuts % (Manual) Lymphocytes % (Manual) Monocytes % (Manual) Nucleated RBC % Seg Neutrophils # Seg Neutrophils # Man Lymphocytes # (Manual) Monocytes # (Manual) PT INR APTT Fibrinogen Heparin Anti-Xa Level 0.85 H POC ABG pH POC ABG pCO2 POC ABG pO2 POC Potassium POC Chloride Sodium Potassium Chloride Carbon Dioxide POC BUN BUN Creatinine Glucose POC Glucose 134 H Calcium Magnesium Crossmatch 06/16/16 06/16/16 06/16/16 08:55 08:55 14:21 WBC RBC Hgb POC Hgb 5.8 L Hct POC Hct 17 L MCH MCHC RDW Plt Count Lymph % (Auto) [place] % (Auto) Lymph # [place] # Seg Neutrophils % Seg Neuts % (Manual) Lymphocytes % (Manual) Monocytes % (Manual) Nucleated RBC % Seg Neutrophils # Seg Neutrophils # Man Lymphocytes # (Manual) Monocytes # (Manual) PT INR APTT 20.0 L Fibrinogen Heparin Anti-Xa Level POC ABG pH POC ABG pCO2 POC ABG pO2 POC Potassium 2.9 L POC Chloride Sodium Potassium Chloride Carbon Dioxide POC BUN 7 L BUN Creatinine Glucose POC Glucose 249 H Calcium Magnesium Crossmatch See Detail 06/16/16 06/16/16 06/16/16 16:55 17:41 17:48 WBC RBC Hgb POC Hgb 8.8 L Hct POC Hct 26 L < 15 L MCH MCHC RDW Plt Count Lymph % (Auto) [place] % (Auto) Lymph # [place] # Seg Neutrophils % Seg Neuts % (Manual) Lymphocytes % (Manual) Monocytes % (Manual) Nucleated RBC % Seg Neutrophils # Seg Neutrophils # Man Lymphocytes # (Manual) Monocytes # (Manual) PT INR APTT Fibrinogen Heparin Anti-Xa Level POC ABG pH 7.031 L POC ABG pCO2 POC ABG pO2 475 H POC Potassium 3.2 L POC Chloride 112 H 114 H Sodium Potassium Chloride Carbon Dioxide POC BUN 7 L 7 L BUN Creatinine Glucose POC Glucose 203 H 291 H Calcium Magnesium Crossmatch 06/16/16 06/16/16 06/16/16 18:07 19:09 20:10 WBC 15.8 H RBC Hgb POC Hgb 6.5 L Hct POC Hct 19 L MCH MCHC RDW Plt Count 38 L Lymph % (Auto) 5.9 L [place] % (Auto) 9.3 H Lymph # 0.9 L [place] # 1.5 H Seg Neutrophils % 84.6 H Seg Neuts % (Manual) Lymphocytes % (Manual) Monocytes % (Manual) Nucleated RBC % Seg Neutrophils # 13.3 H Seg Neutrophils # Man Lymphocytes # (Manual) Monocytes # (Manual) PT INR APTT Fibrinogen Heparin Anti-Xa Level POC ABG pH POC ABG pCO2 POC ABG pO2 POC Potassium POC Chloride 113 H Sodium Potassium Chloride Carbon Dioxide POC BUN 7 L BUN Creatinine Glucose POC Glucose 263 H 231 H Calcium Magnesium Crossmatch 06/16/16 06/16/16 06/16/16 20:10 20:18 21:10 WBC RBC Hgb POC Hgb Hct POC Hct MCH MCHC RDW Plt Count Lymph % (Auto) [place] % (Auto) Lymph # [place] # Seg Neutrophils % Seg Neuts % (Manual) Lymphocytes % (Manual) Monocytes % (Manual) Nucleated RBC % Seg Neutrophils # Seg Neutrophils # Man Lymphocytes # (Manual) Monocytes # (Manual) PT INR APTT Fibrinogen Heparin Anti-Xa Level POC ABG pH 7.236 L 7.280 L POC ABG pCO2 POC ABG pO2 139 H 145 H POC Potassium POC Chloride Sodium Potassium 3.4 L Chloride 114.5 H Carbon Dioxide 17 L D POC BUN BUN Creatinine Glucose 188 H POC Glucose Calcium 6.1 L D Magnesium Crossmatch 06/16/16 06/17/16 06/17/16 22:53 04:48 05:35 WBC RBC Hgb POC Hgb Hct POC Hct MCH MCHC RDW Plt Count Lymph % (Auto) [place] % (Auto) Lymph # [place] # Seg Neutrophils % Seg Neuts % (Manual) Lymphocytes % (Manual) Monocytes % (Manual) Nucleated RBC % Seg Neutrophils # Seg Neutrophils # Man Lymphocytes # (Manual) Monocytes # (Manual) PT INR APTT Fibrinogen Heparin Anti-Xa Level POC ABG pH POC ABG pCO2 33.9 L 22.2 L POC ABG pO2 152 H 154 H POC Potassium POC Chloride Sodium 150 H Potassium 3.4 L Chloride 114.2 H Carbon Dioxide 16 L POC BUN BUN Creatinine Glucose 221 H POC Glucose Calcium 7.6 L D Magnesium Crossmatch 06/17/16 06/18/16 06/18/16 09:22 07:26 08:25 WBC 20.3 H RBC 3.41 L Hgb 9.9 L POC Hgb Hct 29.7 L POC Hct MCH MCHC RDW Plt Count Lymph % (Auto) [place] % (Auto) Lymph # [place] # Seg Neutrophils % Seg Neuts % (Manual) 81.0 H Lymphocytes % (Manual) 6.0 L Monocytes % (Manual) 12.0 H Nucleated RBC % Seg Neutrophils # Seg Neutrophils # Man 16.4 H Lymphocytes # (Manual) Monocytes # (Manual) 2.4 H PT INR APTT Fibrinogen Heparin Anti-Xa Level POC ABG pH POC ABG pCO2 POC ABG pO2 POC Potassium POC Chloride Sodium Potassium 3.1 L Chloride Carbon Dioxide POC BUN BUN Creatinine Glucose 136 H POC Glucose 141 H Calcium 7.5 L Magnesium Crossmatch 06/18/16 06/18/16 06/18/16 08:25 11:09 19:40 WBC RBC Hgb 6.5 L D POC Hgb Hct 19.3 L* D POC Hct MCH MCHC RDW Plt Count 131 L Lymph % (Auto) [place] % (Auto) Lymph # [place] # Seg Neutrophils % Seg Neuts % (Manual) Lymphocytes % (Manual) Monocytes % (Manual) Nucleated RBC % Seg Neutrophils # Seg Neutrophils # Man Lymphocytes # (Manual) Monocytes # (Manual) PT INR APTT Fibrinogen Heparin Anti-Xa Level POC ABG pH 7.490 H POC ABG pCO2 POC ABG pO2 131 H POC Potassium POC Chloride Sodium Potassium Chloride Carbon Dioxide POC BUN BUN Creatinine Glucose POC Glucose 125 H Calcium Magnesium Crossmatch 06/18/16 06/19/16 06/19/16 21:10 07:07 07:28 WBC 13.6 H RBC 2.17 L Hgb 6.5 L POC Hgb Hct 18.8 L* POC Hct MCH MCHC 35 H RDW Plt Count 131 L Lymph % (Auto) 10.1 L [place] % (Auto) 9.3 H Lymph # [place] # 1.3 H Seg Neutrophils % 79.7 H Seg Neuts % (Manual) Lymphocytes % (Manual) Monocytes % (Manual) Nucleated RBC % Seg Neutrophils # 10.8 H Seg Neutrophils # Man Lymphocytes # (Manual) Monocytes # (Manual) PT INR APTT Fibrinogen Heparin Anti-Xa Level 0.75 H POC ABG pH POC ABG pCO2 POC ABG pO2 POC Potassium POC Chloride Sodium Potassium 3.5 L Chloride Carbon Dioxide POC BUN BUN Creatinine Glucose 104 H POC Glucose Calcium 7.6 L Magnesium 1.4 L Crossmatch 06/20/16 06/20/16 06/20/16 04:15 18:15 18:15 WBC 16.6 H RBC 1.19 L Hgb 9.2 L 3.5 L* D POC Hgb Hct 27.5 L D 11.0 L* D POC Hct MCH MCHC RDW Plt Count 138 L Lymph % (Auto) [place] % (Auto) Lymph # [place] # Seg Neutrophils % Seg Neuts % (Manual) Lymphocytes % (Manual) Monocytes % (Manual) Nucleated RBC % Seg Neutrophils # Seg Neutrophils # Man Lymphocytes # (Manual) Monocytes # (Manual) PT INR APTT Fibrinogen Heparin Anti-Xa Level POC ABG pH POC ABG pCO2 POC ABG pO2 POC Potassium POC Chloride Sodium 146 H Potassium Chloride Carbon Dioxide 14 L D POC BUN BUN Creatinine Glucose 31 L* POC Glucose Calcium 6.7 L Magnesium Crossmatch 06/20/16 06/20/16 06/20/16 18:15 19:33 19:36 WBC RBC Hgb POC Hgb Hct POC Hct MCH MCHC RDW Plt Count Lymph % (Auto) [place] % (Auto) Lymph # [place] # Seg Neutrophils % Seg Neuts % (Manual) Lymphocytes % (Manual) Monocytes % (Manual) Nucleated RBC % Seg Neutrophils # Seg Neutrophils # Man Lymphocytes # (Manual) Monocytes # (Manual) PT INR APTT Fibrinogen Heparin Anti-Xa Level POC ABG pH POC ABG pCO2 26.3 L POC ABG pO2 394 H POC Potassium POC Chloride Sodium Potassium Chloride Carbon Dioxide POC BUN BUN Creatinine Glucose POC Glucose 212 H Calcium Magnesium Crossmatch See Detail 06/20/16 06/20/16 06/21/16 22:01 23:00 00:35 WBC RBC Hgb POC Hgb Hct POC Hct MCH MCHC RDW Plt Count Lymph % (Auto) [place] % (Auto) Lymph # [place] # Seg Neutrophils % Seg Neuts % (Manual) Lymphocytes % (Manual) Monocytes % (Manual) Nucleated RBC % Seg Neutrophils # Seg Neutrophils # Man Lymphocytes # (Manual) Monocytes # (Manual) PT 21.3 H INR 1.85 H APTT 48.4 H Fibrinogen Heparin Anti-Xa Level POC ABG pH POC ABG pCO2 POC ABG pO2 POC Potassium POC Chloride Sodium Potassium Chloride Carbon Dioxide POC BUN BUN Creatinine Glucose POC Glucose 149 H 147 H Calcium Magnesium Crossmatch 06/21/16 06/21/16 06/21/16 04:30 04:30 06:01 WBC 21.7 H RBC 3.58 L Hgb POC Hgb Hct POC Hct MCH MCHC 35 H RDW Plt Count 116 L Lymph % (Auto) [place] % (Auto) Lymph # [place] # Seg Neutrophils % Seg Neuts % (Manual) Lymphocytes % (Manual) 8.0 L Monocytes % (Manual) Nucleated RBC % 3.0 H Seg Neutrophils # Seg Neutrophils # Man 13.7 H Lymphocytes # (Manual) Monocytes # (Manual) 1.5 H PT INR APTT Fibrinogen Heparin Anti-Xa Level POC ABG pH 7.541 H POC ABG pCO2 21.1 L POC ABG pO2 108 H POC Potassium POC Chloride Sodium Potassium 3.0 L Chloride 110.3 H Carbon Dioxide 18 L POC BUN BUN 18 H Creatinine Glucose 141 H POC Glucose Calcium 6.4 L Magnesium Crossmatch 06/21/16 06/21/16 06/21/16 07:00 10:02 17:51 WBC RBC Hgb 8.3 L POC Hgb Hct 24.7 L D POC Hct MCH MCHC RDW Plt Count Lymph % (Auto) [place] % (Auto) Lymph # [place] # Seg Neutrophils % Seg Neuts % (Manual) Lymphocytes % (Manual) Monocytes % (Manual) Nucleated RBC % Seg Neutrophils # Seg Neutrophils # Man Lymphocytes # (Manual) Monocytes # (Manual) PT INR APTT Fibrinogen Heparin Anti-Xa Level POC ABG pH POC ABG pCO2 POC ABG pO2 POC Potassium POC Chloride Sodium Potassium Chloride Carbon Dioxide POC BUN BUN Creatinine Glucose POC Glucose 132 H 106 H Calcium Magnesium Crossmatch 06/22/16 06/22/16 06/22/16 05:00 05:00 06:40 WBC 20.6 H RBC 3.54 L Hgb POC Hgb Hct POC Hct MCH MCHC RDW Plt Count 129 L Lymph % (Auto) [place] % (Auto) Lymph # [place] # Seg Neutrophils % Seg Neuts % (Manual) 87.0 H Lymphocytes % (Manual) 4.0 L Monocytes % (Manual) Nucleated RBC % 4.0 H Seg Neutrophils # Seg Neutrophils # Man 17.9 H Lymphocytes # (Manual) 0.8 L Monocytes # (Manual) 1.2 H PT INR APTT Fibrinogen Heparin Anti-Xa Level POC ABG pH POC ABG pCO2 21.9 L POC ABG pO2 118 H POC Potassium POC Chloride Sodium Potassium Chloride 109.9 H Carbon Dioxide 15 L POC BUN BUN 26 H Creatinine 2.2 H D Glucose POC Glucose Calcium 6.3 L Magnesium Crossmatch 06/22/16 06/22/16 06/22/16 09:15 09:15 23:17 WBC RBC Hgb 9.1 L POC Hgb Hct 26.9 L POC Hct MCH MCHC RDW Plt Count 116 L Lymph % (Auto) [place] % (Auto) Lymph # [place] # Seg Neutrophils % Seg Neuts % (Manual) Lymphocytes % (Manual) Monocytes % (Manual) Nucleated RBC % Seg Neutrophils # Seg Neutrophils # Man Lymphocytes # (Manual) Monocytes # (Manual) PT 15.8 H INR 1.27 H APTT Fibrinogen Heparin Anti-Xa Level POC ABG pH POC ABG pCO2 POC ABG pO2 POC Potassium POC Chloride Sodium Potassium Chloride Carbon Dioxide POC BUN BUN Creatinine Glucose POC Glucose 134 H Calcium Magnesium Crossmatch 06/23/16 06/23/16 06/23/16 05:43 05:43 09:44 WBC 13.8 H RBC 2.70 L Hgb 8.1 L POC Hgb Hct 24.2 L POC Hct MCH MCHC RDW Plt Count 93 L Lymph % (Auto) 6.2 L [place] % (Auto) Lymph # 0.9 L [place] # Seg Neutrophils % 89.2 H Seg Neuts % (Manual) Lymphocytes % (Manual) Monocytes % (Manual) Nucleated RBC % Seg Neutrophils # 12.3 H Seg Neutrophils # Man Lymphocytes # (Manual) Monocytes # (Manual) PT INR APTT Fibrinogen Heparin Anti-Xa Level POC ABG pH 7.593 H POC ABG pCO2 26.8 L POC ABG pO2 141 H POC Potassium POC Chloride Sodium 146 H Potassium Chloride Carbon Dioxide POC BUN BUN 32 H Creatinine 2.6 H Glucose 142 H POC Glucose Calcium 7.0 L Magnesium Crossmatch 06/23/16 06/23/16 06/23/16 11:23 17:42 23:32 WBC RBC Hgb POC Hgb Hct POC Hct MCH MCHC RDW Plt Count Lymph % (Auto) [place] % (Auto) Lymph # [place] # Seg Neutrophils % Seg Neuts % (Manual) Lymphocytes % (Manual) Monocytes % (Manual) Nucleated RBC % Seg Neutrophils # Seg Neutrophils # Man Lymphocytes # (Manual) Monocytes # (Manual) PT INR APTT Fibrinogen Heparin Anti-Xa Level POC ABG pH POC ABG pCO2 POC ABG pO2 POC Potassium POC Chloride Sodium Potassium Chloride Carbon Dioxide POC BUN BUN Creatinine Glucose POC Glucose 138 H 133 H 111 H Calcium Magnesium Crossmatch 06/24/16 06/24/16 06/24/16 06:27 08:10 08:10 WBC 16.6 H RBC 2.91 L Hgb 8.9 L POC Hgb Hct 26.4 L POC Hct MCH MCHC RDW 15.6 H Plt Count 115 L Lymph % (Auto) 4.6 L [place] % (Auto) Lymph # 0.8 L [place] # 1.0 H Seg Neutrophils % 89.2 H Seg Neuts % (Manual) Lymphocytes % (Manual) Monocytes % (Manual) Nucleated RBC % Seg Neutrophils # 14.9 H Seg Neutrophils # Man Lymphocytes # (Manual) Monocytes # (Manual) PT INR APTT Fibrinogen Heparin Anti-Xa Level POC ABG pH POC ABG pCO2 POC ABG pO2 POC Potassium POC Chloride Sodium 146 H Potassium Chloride Carbon Dioxide POC BUN BUN 37 H Creatinine 2.9 H Glucose POC Glucose 109 H Calcium 7.5 L Magnesium Crossmatch 06/24/16 06/24/16 06/24/16 12:05 17:57 22:13 WBC RBC Hgb POC Hgb Hct POC Hct MCH MCHC RDW Plt Count Lymph % (Auto) [place] % (Auto) Lymph # [place] # Seg Neutrophils % Seg Neuts % (Manual) Lymphocytes % (Manual) Monocytes % (Manual) Nucleated RBC % Seg Neutrophils # Seg Neutrophils # Man Lymphocytes # (Manual) Monocytes # (Manual) PT INR APTT Fibrinogen Heparin Anti-Xa Level POC ABG pH POC ABG pCO2 POC ABG pO2 POC Potassium POC Chloride Sodium Potassium Chloride Carbon Dioxide POC BUN BUN Creatinine Glucose POC Glucose 117 H 124 H 116 H Calcium Magnesium Crossmatch 06/25/16 06/25/16 06/25/16 06:42 06:49 12:14 WBC RBC Hgb POC Hgb Hct POC Hct MCH MCHC RDW Plt Count Lymph % (Auto) [place] % (Auto) Lymph # [place] # Seg Neutrophils % Seg Neuts % (Manual) Lymphocytes % (Manual) Monocytes % (Manual) Nucleated RBC % Seg Neutrophils # Seg Neutrophils # Man Lymphocytes # (Manual) Monocytes # (Manual) PT INR APTT Fibrinogen Heparin Anti-Xa Level POC ABG pH POC ABG pCO2 POC ABG pO2 POC Potassium POC Chloride Sodium Potassium Chloride Carbon Dioxide POC BUN BUN 46 H Creatinine 3.6 H Glucose 133 H POC Glucose 137 H 136 H Calcium 7.4 L Magnesium Crossmatch 06/25/16 06/25/16 06/26/16 16:07 21:32 05:55 WBC RBC Hgb POC Hgb Hct POC Hct MCH MCHC RDW Plt Count Lymph % (Auto) [place] % (Auto) Lymph # [place] # Seg Neutrophils % Seg Neuts % (Manual) Lymphocytes % (Manual) Monocytes % (Manual) Nucleated RBC % Seg Neutrophils # Seg Neutrophils # Man Lymphocytes # (Manual) Monocytes # (Manual) PT INR APTT Fibrinogen Heparin Anti-Xa Level POC ABG pH POC ABG pCO2 POC ABG pO2 POC Potassium POC Chloride Sodium Potassium Chloride Carbon Dioxide 20 L POC BUN BUN 55 H Creatinine 4.2 H Glucose 120 H POC Glucose 146 H 146 H Calcium 7.5 L Magnesium Crossmatch 06/26/16 06/26/16 06/26/16 06:30 11:38 16:45 WBC RBC Hgb POC Hgb Hct POC Hct MCH MCHC RDW Plt Count Lymph % (Auto) [place] % (Auto) Lymph # [place] # Seg Neutrophils % Seg Neuts % (Manual) Lymphocytes % (Manual) Monocytes % (Manual) Nucleated RBC % Seg Neutrophils # Seg Neutrophils # Man Lymphocytes # (Manual) Monocytes # (Manual) PT INR APTT Fibrinogen Heparin Anti-Xa Level POC ABG pH POC ABG pCO2 POC ABG pO2 POC Potassium POC Chloride Sodium Potassium Chloride Carbon Dioxide POC BUN BUN Creatinine Glucose POC Glucose 128 H 143 H 121 H Calcium Magnesium Crossmatch 06/26/16 06/26/16 06/27/16 22:57 22:57 00:47 WBC RBC Hgb 8.4 L POC Hgb Hct 25.1 L POC Hct MCH MCHC RDW Plt Count Lymph % (Auto) [place] % (Auto) Lymph # [place] # Seg Neutrophils % Seg Neuts % (Manual) Lymphocytes % (Manual) Monocytes % (Manual) Nucleated RBC % Seg Neutrophils # Seg Neutrophils # Man Lymphocytes # (Manual) Monocytes # (Manual) PT 19.9 H INR 1.69 H APTT Fibrinogen Heparin Anti-Xa Level POC ABG pH POC ABG pCO2 POC ABG pO2 POC Potassium POC Chloride Sodium Potassium Chloride Carbon Dioxide POC BUN BUN Creatinine Glucose POC Glucose 110 H Calcium Magnesium Crossmatch 06/27/16 06/27/16 06/27/16 05:43 05:43 06:40 WBC RBC Hgb POC Hgb Hct POC Hct MCH MCHC RDW Plt Count Lymph % (Auto) [place] % (Auto) Lymph # [place] # Seg Neutrophils % Seg Neuts % (Manual) Lymphocytes % (Manual) Monocytes % (Manual) Nucleated RBC % Seg Neutrophils # Seg Neutrophils # Man Lymphocytes # (Manual) Monocytes # (Manual) PT INR APTT Fibrinogen Heparin Anti-Xa Level 2.00 H POC ABG pH POC ABG pCO2 POC ABG pO2 POC Potassium POC Chloride Sodium Potassium Chloride Carbon Dioxide 20 L POC BUN BUN 58 H Creatinine 4.8 H Glucose POC Glucose 109 H Calcium 8.1 L Magnesium Crossmatch 06/27/16 06/27/16 06/27/16 08:15 16:46 17:47 WBC RBC Hgb POC Hgb Hct POC Hct MCH MCHC RDW Plt Count Lymph % (Auto) [place] % (Auto) Lymph # [place] # Seg Neutrophils % Seg Neuts % (Manual) Lymphocytes % (Manual) Monocytes % (Manual) Nucleated RBC % Seg Neutrophils # Seg Neutrophils # Man Lymphocytes # (Manual) Monocytes # (Manual) PT INR APTT Fibrinogen Heparin Anti-Xa Level > 2.00 H 1.87 H POC ABG pH POC ABG pCO2 POC ABG pO2 POC Potassium POC Chloride Sodium Potassium Chloride Carbon Dioxide POC BUN BUN Creatinine Glucose POC Glucose 231 H Calcium Magnesium Crossmatch 06/27/16 21:23 WBC RBC Hgb POC Hgb Hct POC Hct MCH MCHC RDW Plt Count Lymph % (Auto) [place] % (Auto) Lymph # [place] # Seg Neutrophils % Seg Neuts % (Manual) Lymphocytes % (Manual) Monocytes % (Manual) Nucleated RBC % Seg Neutrophils # Seg Neutrophils # Man Lymphocytes # (Manual) Monocytes # (Manual) PT INR APTT Fibrinogen Heparin Anti-Xa Level POC ABG pH POC ABG pCO2 POC ABG pO2 POC Potassium POC Chloride Sodium Potassium Chloride Carbon Dioxide POC BUN BUN Creatinine Glucose POC Glucose 122 H Calcium Magnesium Crossmatch
--- NOTE | 2016-06-28 01:01 | Operative Report ---
PREOPERATIVE DIAGNOSES: Bilateral hydronephrosis, renal failure. POSTOPERATIVE DIAGNOSES: Bilateral hydronephrosis, renal failure. PROCEDURE: Cystoscopy, bilateral retrograde pyelograms, bilateral double-J stent placement (6 Turkmen 22 cm with a short internal string). SURGEON: Dwayne Macias MD ANESTHESIA: IV sedation and local. ESTIMATED BLOOD LOSS: Minimal. FLUIDS: Crystalloid. COMPLICATIONS: No complications. INDICATIONS: This patient is a 55-year-old female with severe peripheral vascular disease, has undergone multiple procedures this admission. She actually arrested this admission as well. I was called this morning. Creatinine had been normal this morning, it was 4.8. The patient is fully anticoagulated. Renal ultrasound revealed bilateral hydronephrosis. CT suggested retroperitoneal bleed on the left side with external compression of the collecting system. She presents now for endoscopic evaluation. DESCRIPTION OF PROCEDURE: The patient was taken to the operative suite, placed in a supine position. After adequate IV sedation, 1% lidocaine gel, cystoscopy was performed. The bladder appeared somewhat deformed with external compression and edema from the Gillespie catheter. Urine cytology was sent for completion. I was able to eventually after indigo carmine visualize the ureters. Bilateral retrograde pyelograms were obtained with an 8 Turk[place] Mike catheter and 8 mL of contrast. The right side had some mild hydronephrosis in normal position. The left distal ureter was displaced medially with hydronephrosis. Two 0.035 Glidewires were placed, 6 Turkmen 22 cm double-J stent with a short string was left indwelling, they were in good position. Gillespie catheter was replaced. She was then taken to the recovery room in stable condition. JOB# [id number] [facility]
--- NOTE | 2016-06-28 01:12 | Consultation ---
REASON FOR CONSULTATION: Hydronephrosis. REFERRING PHYSICIAN: Jose Angel Mckoy MD HISTORY OF PRESENT ILLNESS: This 55-year-old female with severe peripheral vascular disease has undergone multiple vascular procedures and twice this admission. This morning, she was found to have a creatinine of 4.8, it was normal earlier this admission. A renal ultrasound revealed bilateral hydronephrosis, prompting urologic consultation. PAST MEDICAL HISTORY: Diabetes, hypertension, peripheral vascular disease, obesity. PAST SURGICAL HISTORY: Multiple vascular procedures in the past. ALLERGIES: She has no known drug allergies. MEDICATIONS: Aspirin, atenolol, Plavix, Neurontin. PHYSICAL EXAMINATION: VITAL SIGNS: Temperature 98.7, pulse 120, respirations 20, BP 143/77. BACK: No CVA tenderness. ABDOMEN: Soft. Gillespie catheter draining pink urine. LABORATORY DATA: Creatinine was 4.8 today, it was 1.2 on 06/21/2016. Previously, her hemoglobin and hematocrit was 8 and 24. ASSESSMENT AND PLAN: Bilateral hydronephrosis, renal failure. Discussed with the patient and her daughter, the need to proceed with cystoscopy and bilateral stent placement. We will proceed accordingly. JOB# [id number] JOHN/FRANK
[2016-06-28 07:47] LABS: Hematocrit 22.9 % (30.3-42.9); Hemoglobin 7.7 gm/dl (10.1-14.3)
[2016-06-28 07:58] LABS: BUN/Creatinine Ratio 13.77; Calcium 8.3 mg/dL (8.4-10.2); Chloride 103.6 mmol/L (98-107); Potassium 3.7 mmol/L (3.6-5.0)
--- NOTE | 2016-06-28 08:34 | Progress Note ---
Subjective Date of service: 07/05/16 Principal diagnosis: Acute Hypoxemic Respiratory Failure; s/p cardiopulmonary arrest Interval history: cyst, bilat stents 06-27-16----SCARLETT black draining well cr 4.8---now 4.5 continue present care Objective - Constitutional Vitals: Vital Signs - 12hr 06/27/16 06/28/16 06/28/16 23:05 00:09 03:00 Temperature 96.8 F L 96.2 F L Pulse Rate [ 94 H Apical] Pulse Rate [ Left Radial] Respiratory 20 22 Rate Blood Pressure 134/61 [Left Arm] O2 Sat by Pulse 99 Oximetry 06/28/16 07:46 Temperature 98.8 F Pulse Rate [ Apical] Pulse Rate [ 89 Left Radial] Respiratory 16 Rate Blood Pressure 131/63 [Left Arm] O2 Sat by Pulse 100 Oximetry - Labs CBC & Chem 7: 06/28/16 06:27 06/28/16 06:27 Labs: Abnormal lab results 06/27/16 06/27/16 06/27/16 Range/Units 08:15 16:46 17:47 Hgb (10.1-14.3) gm/dl Hct (30.3-42.9) % Heparin Anti-Xa Level > 2.00 H 1.87 H (0.3-0.7) U.I./ml BUN (7-17) mg/dL Creatinine (0.7-1.2) mg/dL Glucose (65-100) mg/dL POC Glucose 231 H (70-105) Calcium (8.4-10.2) mg/dL 06/27/16 06/27/16 06/28/16 Range/Units 21:23 23:54 06:27 Hgb (10.1-14.3) gm/dl Hct (30.3-42.9) % Heparin Anti-Xa Level 1.70 H (0.3-0.7) U.I./ml BUN 62 H (7-17) mg/dL Creatinine 4.5 H (0.7-1.2) mg/dL Glucose 111 H (65-100) mg/dL POC Glucose 122 H (70-105) Calcium 8.3 L (8.4-10.2) mg/dL 06/28/16 Range/Units 06:27 Hgb 7.7 L (10.1-14.3) gm/dl Hct 22.9 L (30.3-42.9) % Heparin Anti-Xa Level (0.3-0.7) U.I./ml BUN (7-17) mg/dL Creatinine (0.7-1.2) mg/dL Glucose (65-100) mg/dL POC Glucose (70-105) Calcium (8.4-10.2) mg/dL
--- NOTE | 2016-06-28 09:38 | XRay Report ---
CHEST X-RAY, 2 VIEWS History: Followup pneumonia. Findings: The patient has been extubated since 06/23/16. Left pleural effusion has increased by 2 rib levels. There is compressive atelectasis in the left lower lobe. Superimposed infiltrate cannot be excluded. Left upper lobe and right lung remain clear. Heart size is within normal limits. Impression: Increased left pleural effusion since exam 5 days ago.
--- NOTE | 2016-06-28 09:43 | Progress Note ---
Assessment and Plan Acute kidney injury in a patient who has multiple risk factors for underlying chronic kidney disease patient is currently nonoliguric Patient is currently nonoliguric status post ureteral stent placement she seems to be doing better Urine output has been improving she did had evidence of hydronephrosis on ultrasonogram Etiology of renal failure appears to be multifactorial including obstructive uropathy as well as acute tubular necrosis resulting from respiratory failure Metabolic acidosis to monitor electrolytes to monitor patient was slightly hypernatremic Her baseline creatinine was 1.2 as of June 2016 Keep her hemoglobin at least over 8-9 Overall stable to better from renal standpoint We'll continue to follow and make recommendations from renal standpoint At this time she does not require any form of renal replacement therapy Subjective Principal diagnosis: Acute Hypoxemic Respiratory Failure; s/p cardiopulmonary arrest Interval history: Patient was seen today for follow-up on multiple renal related issues Currently she is feeling much better ever since a stent placement her urine output has improved and already she has made approximately 700 mL of urine today Her nausea slowly improving Vitals labs intake output medication and interdisciplinary Nourse were also reviewed Objective - Vital Signs Vital signs: Vital Signs - 12hr 06/27/16 06/28/16 06/28/16 23:05 00:09 03:00 Temperature 96.8 F L 96.2 F L Pulse Rate [ 94 H Apical] Pulse Rate [ Left Radial] Respiratory 20 22 Rate Blood Pressure 134/61 [Left Arm] O2 Sat by Pulse 99 Oximetry 06/28/16 07:46 Temperature 98.8 F Pulse Rate [ Apical] Pulse Rate [ 89 Left Radial] Respiratory 16 Rate Blood Pressure 131/63 [Left Arm] O2 Sat by Pulse 100 Oximetry - General Appearance General appearance: well-developed EENT: mucous membranes moist Neck: no JVD Respiratory: Present: Clear to Ascultation (few basilar crackles posteriorly but better today) Cardiology: regular (S1 and S2 heard no S3-S4) Gastrointestinal: normal (soft nontender) - Lab 06/28/16 06:27 06/28/16 06:27 Most recent lab results Calcium 8.3 mg/dL (8.4-10.2) L 06/28/16 06:27 Magnesium 1.4 mg/dL (1.7-2.3) L 06/19/16 07:28
[2016-06-28] MEDS: FEOSOL PO SCH (09:56)
[2016-06-28] MEDS: PROTONIX PO SCH (09:56)
[2016-06-28] MEDS: TENORMIN PO SCH (09:56)
[2016-06-28] MEDS: PLAVIX PO SCH (09:56)
[2016-06-28] MEDS: HALFPRIN EC PO SCH (09:56)
[2016-06-28] MEDS: HEPARIN/ 0.45% NACL-25,000 UNIT/500 ML 500 ML IV SCH (13:25)
--- NOTE | 2016-06-28 13:31 | Fluoroscopy Report ---
FLUOROSCOPY RETROGRADE UROGRAPHY: History: Bilateral hydronephrosis. Findings: Fluoroscopy was provided by radiology during retrograde urography by Dr. Macias. The images demonstrate placement of bilateral ureteral stents which are in good position and adequately drain the renal collecting systems on the final image. There appears to be a mass in the left side of the pelvis which displaces the bladder and distal left ureter to the right side. Please refer to the CT abdomen and pelvis performed the same day. Impression: Bilateral ureteral stent placements as described.
--- NOTE | 2016-06-28 13:52 | Progress Note ---
Assessment and Plan - Patient Problems (1) Peripheral vascular disease of extremity Current Visit: Yes Status: Acute Plan to address problem: - clinically limb is warm and non tender - further interventions per attending team (2) Acute respiratory failure Current Visit: Yes Status: Acute Plan to address problem: - improved - on nasal canula prn now - continue aspiration precautions - prn bronchodilators - wean off oxygen for sats > 92% (3) Anemia Current Visit: Yes Status: Acute Plan to address problem: - follow H&H - was ABLA - PRBC transfusion prn (4) Altered mental status Current Visit: Yes Status: Acute Plan to address problem: - suspect dementia element - non focal exam - follows commands appropriately - will observe on monitored bed - improved overall (5) Discharge planning issues Current Visit: Yes Status: Acute Plan to address problem: - per attending Subjective Date of service: 06/28/16 Principal diagnosis: Acute Hypoxemic Respiratory Failure; s/p cardiopulmonary arrest Interval history: Seen and examined at bedside; 24 hour events reviewed; nursing and respiratory care staff consulted; no adverse overnight events reported to me; resting peacefully; denies acute chest pains or increased SOB; no leg pain also reported Objective Vital Signs - 12hr 06/28/16 06/28/16 06/28/16 03:00 07:46 09:44 Temperature 96.2 F L 98.8 F Pulse Rate Pulse Rate [ 89 Left Radial] Respiratory 16 Rate Blood Pressure Blood Pressure 131/63 [Left Arm] O2 Sat by Pulse 100 100 Oximetry 06/28/16 09:56 Temperature Pulse Rate 89 Pulse Rate [ Left Radial] Respiratory Rate Blood Pressure 131/63 Blood Pressure [Left Arm] O2 Sat by Pulse Oximetry Constitutional: no acute distress, alert Eyes: non-icteric ENT: oropharynx moist Neck: supple, no lymphadenopathy Effort: normal Ascultation: Bilateral: clear, diminished breath sounds Cardiovascular: regular rate and rhythm Gastrointestinal: normoactive bowel sounds, soft, non-tender, non-distended Integumentary: other (weak LLExt) Extremities: no cyanosis, edema, other (LLExt pulses diminished but leg warm) Neurologic: normal mental status, non-focal exam, pupils equal and round, motor strength normal and Psychiatric: mood appropriate, affect normal CBC and BMP: 07/07/16 13:57 07/07/16 08:06 ABG, PT/INR, D-dimer: ABG POC ABG pH 7.593 (7.35-7.45) H 06/23/16 09:44 POC ABG pCO2 26.8 (35-45) L 06/23/16 09:44 POC ABG pO2 141 (80-105) H 06/23/16 09:44 POC ABG HCO3 25.8 06/23/16 09:44 POC ABG Total CO2 27 06/23/16 09:44 POC ABG O2 Sat 100 06/23/16 09:44 PT/INR, D-dimer PT 19.9 Sec. (12.2-14.9) H 06/26/16 22:57 INR 1.69 (0.87-1.13) H 06/26/16 22:57 Abnormal lab findings: Abnormal Labs 06/13/16 06/13/16 06/13/16 09:45 09:45 09:45 WBC RBC Hgb POC Hgb Hct POC Hct MCH 25 L MCHC RDW 15.8 H Plt Count Lymph % (Auto) [place] % (Auto) 8.1 H Lymph # [place] # Seg Neutrophils % Seg Neuts % (Manual) Lymphocytes % (Manual) Monocytes % (Manual) Nucleated RBC % Seg Neutrophils # Seg Neutrophils # Man Lymphocytes # (Manual) Monocytes # (Manual) PT INR APTT Fibrinogen 522 H Heparin Anti-Xa Level POC ABG pH POC ABG pCO2 POC ABG pO2 POC Potassium POC Chloride Sodium Potassium Chloride Carbon Dioxide POC BUN BUN Creatinine Glucose POC Glucose Calcium 10.3 H Magnesium Crossmatch 06/13/16 06/13/16 06/13/16 09:45 20:14 20:15 WBC RBC Hgb POC Hgb Hct POC Hct MCH MCHC RDW Plt Count Lymph % (Auto) [place] % (Auto) Lymph # [place] # Seg Neutrophils % Seg Neuts % (Manual) Lymphocytes % (Manual) Monocytes % (Manual) Nucleated RBC % Seg Neutrophils # Seg Neutrophils # Man Lymphocytes # (Manual) Monocytes # (Manual) PT INR APTT 103.8 H* Fibrinogen Heparin Anti-Xa Level 0.72 H POC ABG pH POC ABG pCO2 POC ABG pO2 POC Potassium POC Chloride Sodium Potassium Chloride Carbon Dioxide POC BUN BUN Creatinine Glucose POC Glucose Calcium Magnesium Crossmatch See Detail 06/14/16 06/14/16 06/14/16 07:44 10:18 19:09 WBC RBC Hgb POC Hgb Hct POC Hct MCH 26 L MCHC RDW 15.8 H Plt Count Lymph % (Auto) [place] % (Auto) 9.1 H Lymph # [place] # Seg Neutrophils % Seg Neuts % (Manual) Lymphocytes % (Manual) Monocytes % (Manual) Nucleated RBC % Seg Neutrophils # Seg Neutrophils # Man Lymphocytes # (Manual) Monocytes # (Manual) PT INR APTT Fibrinogen Heparin Anti-Xa Level 0.76 H POC ABG pH POC ABG pCO2 POC ABG pO2 POC Potassium POC Chloride Sodium Potassium Chloride Carbon Dioxide POC BUN BUN Creatinine Glucose POC Glucose 106 H Calcium Magnesium Crossmatch 06/15/16 06/15/16 06/15/16 04:43 04:43 22:49 WBC RBC Hgb 9.2 L POC Hgb Hct 28.4 L POC Hct MCH MCHC RDW Plt Count Lymph % (Auto) [place] % (Auto) Lymph # [place] # Seg Neutrophils % Seg Neuts % (Manual) Lymphocytes % (Manual) Monocytes % (Manual) Nucleated RBC % Seg Neutrophils # Seg Neutrophils # Man Lymphocytes # (Manual) Monocytes # (Manual) PT INR APTT Fibrinogen Heparin Anti-Xa Level 0.85 H POC ABG pH POC ABG pCO2 POC ABG pO2 POC Potassium POC Chloride Sodium Potassium Chloride Carbon Dioxide POC BUN BUN Creatinine Glucose POC Glucose 134 H Calcium Magnesium Crossmatch 06/16/16 06/16/16 06/16/16 08:55 08:55 14:21 WBC RBC Hgb POC Hgb 5.8 L Hct POC Hct 17 L MCH MCHC RDW Plt Count Lymph % (Auto) [place] % (Auto) Lymph # [place] # Seg Neutrophils % Seg Neuts % (Manual) Lymphocytes % (Manual) Monocytes % (Manual) Nucleated RBC % Seg Neutrophils # Seg Neutrophils # Man Lymphocytes # (Manual) Monocytes # (Manual) PT INR APTT 20.0 L Fibrinogen Heparin Anti-Xa Level POC ABG pH POC ABG pCO2 POC ABG pO2 POC Potassium 2.9 L POC Chloride Sodium Potassium Chloride Carbon Dioxide POC BUN 7 L BUN Creatinine Glucose POC Glucose 249 H Calcium Magnesium Crossmatch See Detail 06/16/16 06/16/16 06/16/16 16:55 17:41 17:48 WBC RBC Hgb POC Hgb 8.8 L Hct POC Hct 26 L < 15 L MCH MCHC RDW Plt Count Lymph % (Auto) [place] % (Auto) Lymph # [place] # Seg Neutrophils % Seg Neuts % (Manual) Lymphocytes % (Manual) Monocytes % (Manual) Nucleated RBC % Seg Neutrophils # Seg Neutrophils # Man Lymphocytes # (Manual) Monocytes # (Manual) PT INR APTT Fibrinogen Heparin Anti-Xa Level POC ABG pH 7.031 L POC ABG pCO2 POC ABG pO2 475 H POC Potassium 3.2 L POC Chloride 112 H 114 H Sodium Potassium Chloride Carbon Dioxide POC BUN 7 L 7 L BUN Creatinine Glucose POC Glucose 203 H 291 H Calcium Magnesium Crossmatch 06/16/16 06/16/16 06/16/16 18:07 19:09 20:10 WBC 15.8 H RBC Hgb POC Hgb 6.5 L Hct POC Hct 19 L MCH MCHC RDW Plt Count 38 L Lymph % (Auto) 5.9 L [place] % (Auto) 9.3 H Lymph # 0.9 L [place] # 1.5 H Seg Neutrophils % 84.6 H Seg Neuts % (Manual) Lymphocytes % (Manual) Monocytes % (Manual) Nucleated RBC % Seg Neutrophils # 13.3 H Seg Neutrophils # Man Lymphocytes # (Manual) Monocytes # (Manual) PT INR APTT Fibrinogen Heparin Anti-Xa Level POC ABG pH POC ABG pCO2 POC ABG pO2 POC Potassium POC Chloride 113 H Sodium Potassium Chloride Carbon Dioxide POC BUN 7 L BUN Creatinine Glucose POC Glucose 263 H 231 H Calcium Magnesium Crossmatch 06/16/16 06/16/16 06/16/16 20:10 20:18 21:10 WBC RBC Hgb POC Hgb Hct POC Hct MCH MCHC RDW Plt Count Lymph % (Auto) [place] % (Auto) Lymph # [place] # Seg Neutrophils % Seg Neuts % (Manual) Lymphocytes % (Manual) Monocytes % (Manual) Nucleated RBC % Seg Neutrophils # Seg Neutrophils # Man Lymphocytes # (Manual) Monocytes # (Manual) PT INR APTT Fibrinogen Heparin Anti-Xa Level POC ABG pH 7.236 L 7.280 L POC ABG pCO2 POC ABG pO2 139 H 145 H POC Potassium POC Chloride Sodium Potassium 3.4 L Chloride 114.5 H Carbon Dioxide 17 L D POC BUN BUN Creatinine Glucose 188 H POC Glucose Calcium 6.1 L D Magnesium Crossmatch 06/16/16 06/17/16 06/17/16 22:53 04:48 05:35 WBC RBC Hgb POC Hgb Hct POC Hct MCH MCHC RDW Plt Count Lymph % (Auto) [place] % (Auto) Lymph # [place] # Seg Neutrophils % Seg Neuts % (Manual) Lymphocytes % (Manual) Monocytes % (Manual) Nucleated RBC % Seg Neutrophils # Seg Neutrophils # Man Lymphocytes # (Manual) Monocytes # (Manual) PT INR APTT Fibrinogen Heparin Anti-Xa Level POC ABG pH POC ABG pCO2 33.9 L 22.2 L POC ABG pO2 152 H 154 H POC Potassium POC Chloride Sodium 150 H Potassium 3.4 L Chloride 114.2 H Carbon Dioxide 16 L POC BUN BUN Creatinine Glucose 221 H POC Glucose Calcium 7.6 L D Magnesium Crossmatch 06/17/16 06/18/16 06/18/16 09:22 07:26 08:25 WBC 20.3 H RBC 3.41 L Hgb 9.9 L POC Hgb Hct 29.7 L POC Hct MCH MCHC RDW Plt Count Lymph % (Auto) [place] % (Auto) Lymph # [place] # Seg Neutrophils % Seg Neuts % (Manual) 81.0 H Lymphocytes % (Manual) 6.0 L Monocytes % (Manual) 12.0 H Nucleated RBC % Seg Neutrophils # Seg Neutrophils # Man 16.4 H Lymphocytes # (Manual) Monocytes # (Manual) 2.4 H PT INR APTT Fibrinogen Heparin Anti-Xa Level POC ABG pH POC ABG pCO2 POC ABG pO2 POC Potassium POC Chloride Sodium Potassium 3.1 L Chloride Carbon Dioxide POC BUN BUN Creatinine Glucose 136 H POC Glucose 141 H Calcium 7.5 L Magnesium Crossmatch 06/18/16 06/18/16 06/18/16 08:25 11:09 19:40 WBC RBC Hgb 6.5 L D POC Hgb Hct 19.3 L* D POC Hct MCH MCHC RDW Plt Count 131 L Lymph % (Auto) [place] % (Auto) Lymph # [place] # Seg Neutrophils % Seg Neuts % (Manual) Lymphocytes % (Manual) Monocytes % (Manual) Nucleated RBC % Seg Neutrophils # Seg Neutrophils # Man Lymphocytes # (Manual) Monocytes # (Manual) PT INR APTT Fibrinogen Heparin Anti-Xa Level POC ABG pH 7.490 H POC ABG pCO2 POC ABG pO2 131 H POC Potassium POC Chloride Sodium Potassium Chloride Carbon Dioxide POC BUN BUN Creatinine Glucose POC Glucose 125 H Calcium Magnesium Crossmatch 06/18/16 06/19/16 06/19/16 21:10 07:07 07:28 WBC 13.6 H RBC 2.17 L Hgb 6.5 L POC Hgb Hct 18.8 L* POC Hct MCH MCHC 35 H RDW Plt Count 131 L Lymph % (Auto) 10.1 L [place] % (Auto) 9.3 H Lymph # [place] # 1.3 H Seg Neutrophils % 79.7 H Seg Neuts % (Manual) Lymphocytes % (Manual) Monocytes % (Manual) Nucleated RBC % Seg Neutrophils # 10.8 H Seg Neutrophils # Man Lymphocytes # (Manual) Monocytes # (Manual) PT INR APTT Fibrinogen Heparin Anti-Xa Level 0.75 H POC ABG pH POC ABG pCO2 POC ABG pO2 POC Potassium POC Chloride Sodium Potassium 3.5 L Chloride Carbon Dioxide POC BUN BUN Creatinine Glucose 104 H POC Glucose Calcium 7.6 L Magnesium 1.4 L Crossmatch 06/20/16 06/20/16 06/20/16 04:15 18:15 18:15 WBC 16.6 H RBC 1.19 L Hgb 9.2 L 3.5 L* D POC Hgb Hct 27.5 L D 11.0 L* D POC Hct MCH MCHC RDW Plt Count 138 L Lymph % (Auto) [place] % (Auto) Lymph # [place] # Seg Neutrophils % Seg Neuts % (Manual) Lymphocytes % (Manual) Monocytes % (Manual) Nucleated RBC % Seg Neutrophils # Seg Neutrophils # Man Lymphocytes # (Manual) Monocytes # (Manual) PT INR APTT Fibrinogen Heparin Anti-Xa Level POC ABG pH POC ABG pCO2 POC ABG pO2 POC Potassium POC Chloride Sodium 146 H Potassium Chloride Carbon Dioxide 14 L D POC BUN BUN Creatinine Glucose 31 L* POC Glucose Calcium 6.7 L Magnesium Crossmatch 06/20/16 06/20/16 06/20/16 18:15 19:33 19:36 WBC RBC Hgb POC Hgb Hct POC Hct MCH MCHC RDW Plt Count Lymph % (Auto) [place] % (Auto) Lymph # [place] # Seg Neutrophils % Seg Neuts % (Manual) Lymphocytes % (Manual) Monocytes % (Manual) Nucleated RBC % Seg Neutrophils # Seg Neutrophils # Man Lymphocytes # (Manual) Monocytes # (Manual) PT INR APTT Fibrinogen Heparin Anti-Xa Level POC ABG pH POC ABG pCO2 26.3 L POC ABG pO2 394 H POC Potassium POC Chloride Sodium Potassium Chloride Carbon Dioxide POC BUN BUN Creatinine Glucose POC Glucose 212 H Calcium Magnesium Crossmatch See Detail 06/20/16 06/20/16 06/21/16 22:01 23:00 00:35 WBC RBC Hgb POC Hgb Hct POC Hct MCH MCHC RDW Plt Count Lymph % (Auto) [place] % (Auto) Lymph # [place] # Seg Neutrophils % Seg Neuts % (Manual) Lymphocytes % (Manual) Monocytes % (Manual) Nucleated RBC % Seg Neutrophils # Seg Neutrophils # Man Lymphocytes # (Manual) Monocytes # (Manual) PT 21.3 H INR 1.85 H APTT 48.4 H Fibrinogen Heparin Anti-Xa Level POC ABG pH POC ABG pCO2 POC ABG pO2 POC Potassium POC Chloride Sodium Potassium Chloride Carbon Dioxide POC BUN BUN Creatinine Glucose POC Glucose 149 H 147 H Calcium Magnesium Crossmatch 06/21/16 06/21/16 06/21/16 04:30 04:30 06:01 WBC 21.7 H RBC 3.58 L Hgb POC Hgb Hct POC Hct MCH MCHC 35 H RDW Plt Count 116 L Lymph % (Auto) [place] % (Auto) Lymph # [place] # Seg Neutrophils % Seg Neuts % (Manual) Lymphocytes % (Manual) 8.0 L Monocytes % (Manual) Nucleated RBC % 3.0 H Seg Neutrophils # Seg Neutrophils # Man 13.7 H Lymphocytes # (Manual) Monocytes # (Manual) 1.5 H PT INR APTT Fibrinogen Heparin Anti-Xa Level POC ABG pH 7.541 H POC ABG pCO2 21.1 L POC ABG pO2 108 H POC Potassium POC Chloride Sodium Potassium 3.0 L Chloride 110.3 H Carbon Dioxide 18 L POC BUN BUN 18 H Creatinine Glucose 141 H POC Glucose Calcium 6.4 L Magnesium Crossmatch 06/21/16 06/21/16 06/21/16 07:00 10:02 17:51 WBC RBC Hgb 8.3 L POC Hgb Hct 24.7 L D POC Hct MCH MCHC RDW Plt Count Lymph % (Auto) [place] % (Auto) Lymph # [place] # Seg Neutrophils % Seg Neuts % (Manual) Lymphocytes % (Manual) Monocytes % (Manual) Nucleated RBC % Seg Neutrophils # Seg Neutrophils # Man Lymphocytes # (Manual) Monocytes # (Manual) PT INR APTT Fibrinogen Heparin Anti-Xa Level POC ABG pH POC ABG pCO2 POC ABG pO2 POC Potassium POC Chloride Sodium Potassium Chloride Carbon Dioxide POC BUN BUN Creatinine Glucose POC Glucose 132 H 106 H Calcium Magnesium Crossmatch 06/22/16 06/22/16 06/22/16 05:00 05:00 06:40 WBC 20.6 H RBC 3.54 L Hgb POC Hgb Hct POC Hct MCH MCHC RDW Plt Count 129 L Lymph % (Auto) [place] % (Auto) Lymph # [place] # Seg Neutrophils % Seg Neuts % (Manual) 87.0 H Lymphocytes % (Manual) 4.0 L Monocytes % (Manual) Nucleated RBC % 4.0 H Seg Neutrophils # Seg Neutrophils # Man 17.9 H Lymphocytes # (Manual) 0.8 L Monocytes # (Manual) 1.2 H PT INR APTT Fibrinogen Heparin Anti-Xa Level POC ABG pH POC ABG pCO2 21.9 L POC ABG pO2 118 H POC Potassium POC Chloride Sodium Potassium Chloride 109.9 H Carbon Dioxide 15 L POC BUN BUN 26 H Creatinine 2.2 H D Glucose POC Glucose Calcium 6.3 L Magnesium Crossmatch 06/22/16 06/22/16 06/22/16 09:15 09:15 23:17 WBC RBC Hgb 9.1 L POC Hgb Hct 26.9 L POC Hct MCH MCHC RDW Plt Count 116 L Lymph % (Auto) [place] % (Auto) Lymph # [place] # Seg Neutrophils % Seg Neuts % (Manual) Lymphocytes % (Manual) Monocytes % (Manual) Nucleated RBC % Seg Neutrophils # Seg Neutrophils # Man Lymphocytes # (Manual) Monocytes # (Manual) PT 15.8 H INR 1.27 H APTT Fibrinogen Heparin Anti-Xa Level POC ABG pH POC ABG pCO2 POC ABG pO2 POC Potassium POC Chloride Sodium Potassium Chloride Carbon Dioxide POC BUN BUN Creatinine Glucose POC Glucose 134 H Calcium Magnesium Crossmatch 06/23/16 06/23/16 06/23/16 05:43 05:43 09:44 WBC 13.8 H RBC 2.70 L Hgb 8.1 L POC Hgb Hct 24.2 L POC Hct MCH MCHC RDW Plt Count 93 L Lymph % (Auto) 6.2 L [place] % (Auto) Lymph # 0.9 L [place] # Seg Neutrophils % 89.2 H Seg Neuts % (Manual) Lymphocytes % (Manual) Monocytes % (Manual) Nucleated RBC % Seg Neutrophils # 12.3 H Seg Neutrophils # Man Lymphocytes # (Manual) Monocytes # (Manual) PT INR APTT Fibrinogen Heparin Anti-Xa Level POC ABG pH 7.593 H POC ABG pCO2 26.8 L POC ABG pO2 141 H POC Potassium POC Chloride Sodium 146 H Potassium Chloride Carbon Dioxide POC BUN BUN 32 H Creatinine 2.6 H Glucose 142 H POC Glucose Calcium 7.0 L Magnesium Crossmatch 06/23/16 06/23/16 06/23/16 11:23 17:42 23:32 WBC RBC Hgb POC Hgb Hct POC Hct MCH MCHC RDW Plt Count Lymph % (Auto) [place] % (Auto) Lymph # [place] # Seg Neutrophils % Seg Neuts % (Manual) Lymphocytes % (Manual) Monocytes % (Manual) Nucleated RBC % Seg Neutrophils # Seg Neutrophils # Man Lymphocytes # (Manual) Monocytes # (Manual) PT INR APTT Fibrinogen Heparin Anti-Xa Level POC ABG pH POC ABG pCO2 POC ABG pO2 POC Potassium POC Chloride Sodium Potassium Chloride Carbon Dioxide POC BUN BUN Creatinine Glucose POC Glucose 138 H 133 H 111 H Calcium Magnesium Crossmatch 06/24/16 06/24/16 06/24/16 06:27 08:10 08:10 WBC 16.6 H RBC 2.91 L Hgb 8.9 L POC Hgb Hct 26.4 L POC Hct MCH MCHC RDW 15.6 H Plt Count 115 L Lymph % (Auto) 4.6 L [place] % (Auto) Lymph # 0.8 L [place] # 1.0 H Seg Neutrophils % 89.2 H Seg Neuts % (Manual) Lymphocytes % (Manual) Monocytes % (Manual) Nucleated RBC % Seg Neutrophils # 14.9 H Seg Neutrophils # Man Lymphocytes # (Manual) Monocytes # (Manual) PT INR APTT Fibrinogen Heparin Anti-Xa Level POC ABG pH POC ABG pCO2 POC ABG pO2 POC Potassium POC Chloride Sodium 146 H Potassium Chloride Carbon Dioxide POC BUN BUN 37 H Creatinine 2.9 H Glucose POC Glucose 109 H Calcium 7.5 L Magnesium Crossmatch 06/24/16 06/24/16 06/24/16 12:05 17:57 22:13 WBC RBC Hgb POC Hgb Hct POC Hct MCH MCHC RDW Plt Count Lymph % (Auto) [place] % (Auto) Lymph # [place] # Seg Neutrophils % Seg Neuts % (Manual) Lymphocytes % (Manual) Monocytes % (Manual) Nucleated RBC % Seg Neutrophils # Seg Neutrophils # Man Lymphocytes # (Manual) Monocytes # (Manual) PT INR APTT Fibrinogen Heparin Anti-Xa Level POC ABG pH POC ABG pCO2 POC ABG pO2 POC Potassium POC Chloride Sodium Potassium Chloride Carbon Dioxide POC BUN BUN Creatinine Glucose POC Glucose 117 H 124 H 116 H Calcium Magnesium Crossmatch 06/25/16 06/25/16 06/25/16 06:42 06:49 12:14 WBC RBC Hgb POC Hgb Hct POC Hct MCH MCHC RDW Plt Count Lymph % (Auto) [place] % (Auto) Lymph # [place] # Seg Neutrophils % Seg Neuts % (Manual) Lymphocytes % (Manual) Monocytes % (Manual) Nucleated RBC % Seg Neutrophils # Seg Neutrophils # Man Lymphocytes # (Manual) Monocytes # (Manual) PT INR APTT Fibrinogen Heparin Anti-Xa Level POC ABG pH POC ABG pCO2 POC ABG pO2 POC Potassium POC Chloride Sodium Potassium Chloride Carbon Dioxide POC BUN BUN 46 H Creatinine 3.6 H Glucose 133 H POC Glucose 137 H 136 H Calcium 7.4 L Magnesium Crossmatch 06/25/16 06/25/16 06/26/16 16:07 21:32 05:55 WBC RBC Hgb POC Hgb Hct POC Hct MCH MCHC RDW Plt Count Lymph % (Auto) [place] % (Auto) Lymph # [place] # Seg Neutrophils % Seg Neuts % (Manual) Lymphocytes % (Manual) Monocytes % (Manual) Nucleated RBC % Seg Neutrophils # Seg Neutrophils # Man Lymphocytes # (Manual) Monocytes # (Manual) PT INR APTT Fibrinogen Heparin Anti-Xa Level POC ABG pH POC ABG pCO2 POC ABG pO2 POC Potassium POC Chloride Sodium Potassium Chloride Carbon Dioxide 20 L POC BUN BUN 55 H Creatinine 4.2 H Glucose 120 H POC Glucose 146 H 146 H Calcium 7.5 L Magnesium Crossmatch 06/26/16 06/26/16 06/26/16 06:30 11:38 16:45 WBC RBC Hgb POC Hgb Hct POC Hct MCH MCHC RDW Plt Count Lymph % (Auto) [place] % (Auto) Lymph # [place] # Seg Neutrophils % Seg Neuts % (Manual) Lymphocytes % (Manual) Monocytes % (Manual) Nucleated RBC % Seg Neutrophils # Seg Neutrophils # Man Lymphocytes # (Manual) Monocytes # (Manual) PT INR APTT Fibrinogen Heparin Anti-Xa Level POC ABG pH POC ABG pCO2 POC ABG pO2 POC Potassium POC Chloride Sodium Potassium Chloride Carbon Dioxide POC BUN BUN Creatinine Glucose POC Glucose 128 H 143 H 121 H Calcium Magnesium Crossmatch 06/26/16 06/26/16 06/27/16 22:57 22:57 00:47 WBC RBC Hgb 8.4 L POC Hgb Hct 25.1 L POC Hct MCH MCHC RDW Plt Count Lymph % (Auto) [place] % (Auto) Lymph # [place] # Seg Neutrophils % Seg Neuts % (Manual) Lymphocytes % (Manual) Monocytes % (Manual) Nucleated RBC % Seg Neutrophils # Seg Neutrophils # Man Lymphocytes # (Manual) Monocytes # (Manual) PT 19.9 H INR 1.69 H APTT Fibrinogen Heparin Anti-Xa Level POC ABG pH POC ABG pCO2 POC ABG pO2 POC Potassium POC Chloride Sodium Potassium Chloride Carbon Dioxide POC BUN BUN Creatinine Glucose POC Glucose 110 H Calcium Magnesium Crossmatch 06/27/16 06/27/16 06/27/16 05:43 05:43 06:40 WBC RBC Hgb POC Hgb Hct POC Hct MCH MCHC RDW Plt Count Lymph % (Auto) [place] % (Auto) Lymph # [place] # Seg Neutrophils % Seg Neuts % (Manual) Lymphocytes % (Manual) Monocytes % (Manual) Nucleated RBC % Seg Neutrophils # Seg Neutrophils # Man Lymphocytes # (Manual) Monocytes # (Manual) PT INR APTT Fibrinogen Heparin Anti-Xa Level 2.00 H POC ABG pH POC ABG pCO2 POC ABG pO2 POC Potassium POC Chloride Sodium Potassium Chloride Carbon Dioxide 20 L POC BUN BUN 58 H Creatinine 4.8 H Glucose POC Glucose 109 H Calcium 8.1 L Magnesium Crossmatch 06/27/16 06/27/16 06/27/16 08:15 16:46 17:47 WBC RBC Hgb POC Hgb Hct POC Hct MCH MCHC RDW Plt Count Lymph % (Auto) [place] % (Auto) Lymph # [place] # Seg Neutrophils % Seg Neuts % (Manual) Lymphocytes % (Manual) Monocytes % (Manual) Nucleated RBC % Seg Neutrophils # Seg Neutrophils # Man Lymphocytes # (Manual) Monocytes # (Manual) PT INR APTT Fibrinogen Heparin Anti-Xa Level > 2.00 H 1.87 H POC ABG pH POC ABG pCO2 POC ABG pO2 POC Potassium POC Chloride Sodium Potassium Chloride Carbon Dioxide POC BUN BUN Creatinine Glucose POC Glucose 231 H Calcium Magnesium Crossmatch 06/27/16 06/27/16 06/28/16 21:23 23:54 06:27 WBC RBC Hgb POC Hgb Hct POC Hct MCH MCHC RDW Plt Count Lymph % (Auto) [place] % (Auto) Lymph # [place] # Seg Neutrophils % Seg Neuts % (Manual) Lymphocytes % (Manual) Monocytes % (Manual) Nucleated RBC % Seg Neutrophils # Seg Neutrophils # Man Lymphocytes # (Manual) Monocytes # (Manual) PT INR APTT Fibrinogen Heparin Anti-Xa Level 1.70 H POC ABG pH POC ABG pCO2 POC ABG pO2 POC Potassium POC Chloride Sodium Potassium Chloride Carbon Dioxide POC BUN BUN 62 H Creatinine 4.5 H Glucose 111 H POC Glucose 122 H Calcium 8.3 L Magnesium Crossmatch 06/28/16 06/28/16 06:27 11:47 WBC RBC Hgb 7.7 L POC Hgb Hct 22.9 L POC Hct MCH MCHC RDW Plt Count Lymph % (Auto) [place] % (Auto) Lymph # [place] # Seg Neutrophils % Seg Neuts % (Manual) Lymphocytes % (Manual) Monocytes % (Manual) Nucleated RBC % Seg Neutrophils # Seg Neutrophils # Man Lymphocytes # (Manual) Monocytes # (Manual) PT INR APTT Fibrinogen Heparin Anti-Xa Level POC ABG pH POC ABG pCO2 POC ABG pO2 POC Potassium POC Chloride Sodium Potassium Chloride Carbon Dioxide POC BUN BUN Creatinine Glucose POC Glucose 155 H Calcium Magnesium Crossmatch
--- NOTE | 2016-06-28 15:14 | Progress Note ---
Assessment and Plan Patient with a history of vascular disease now with worsening swelling. Either the development of DVT or compression of the external or common femoral veins on the left from hematoma resulting in poor drainage and the development of blistering and edema. Will order a venous ultrasound for further evaluation. Subjective Date of service: 06/28/16 Principal diagnosis: Acute Hypoxemic Respiratory Failure; s/p cardiopulmonary arrest Interval history: With a complex history her disease who underwent a revascularization procedure on her left leg and she subsequently developed a hematoma that extended into the retroperitoneal's base requiring placement of bilateral ureteral stents. Her urine is clearing up. She remains on heparin. Her left leg is warm. There has been an increase in swelling predominantly affecting her thigh with skin blistering and darkening of the skin is warm medial thigh. Distally, her leg is soft edema extending to the foot. She does have a palpable dorsalis pedis pulse. Her right leg demonstrates foot drop. No complaints of significant area only heaviness and swelling within the left leg. Objective - Constitutional Vitals: Vital Signs - 12hr 06/28/16 06/28/16 06/28/16 07:46 09:44 09:56 Temperature 98.8 F Pulse Rate 89 Pulse Rate [ 89 Left Radial] Respiratory 16 Rate Blood Pressure 131/63 Blood Pressure 131/63 [Left Arm] O2 Sat by Pulse 100 100 Oximetry General appearance: Present: no acute distress - EENT Eyes: PERRL, EOM intact ENT: hearing intact - Neck Neck: supple, normal ROM - Respiratory Respiratory effort: normal - Breasts Breasts: deferred Extremities: abnormal (per HPI) - Gastrointestinal General gastrointestinal: Present: non-tender Rectal Exam: deferred - Psychiatric Psychiatric: appropriate mood/affect, cooperative - Labs CBC & Chem 7: 06/28/16 06:27 06/28/16 06:27 Labs: Abnormal lab results 06/27/16 06/27/16 06/27/16 Range/Units 16:46 17:47 21:23 Hgb (10.1-14.3) gm/dl Hct (30.3-42.9) % Heparin Anti-Xa Level 1.87 H (0.3-0.7) U.I./ml BUN (7-17) mg/dL Creatinine (0.7-1.2) mg/dL Glucose (65-100) mg/dL POC Glucose 231 H 122 H (70-105) Calcium (8.4-10.2) mg/dL 06/27/16 06/28/16 06/28/16 Range/Units 23:54 06:27 06:27 Hgb 7.7 L (10.1-14.3) gm/dl Hct 22.9 L (30.3-42.9) % Heparin Anti-Xa Level 1.70 H (0.3-0.7) U.I./ml BUN 62 H (7-17) mg/dL Creatinine 4.5 H (0.7-1.2) mg/dL Glucose 111 H (65-100) mg/dL POC Glucose (70-105) Calcium 8.3 L (8.4-10.2) mg/dL 06/28/16 Range/Units 11:47 Hgb (10.1-14.3) gm/dl Hct (30.3-42.9) % Heparin Anti-Xa Level (0.3-0.7) U.I./ml BUN (7-17) mg/dL Creatinine (0.7-1.2) mg/dL Glucose (65-100) mg/dL POC Glucose 155 H (70-105) Calcium (8.4-10.2) mg/dL
[2016-06-28 15:15] LABS: ISTAT Base Excess -1; ISTAT DEVICE 0; ISTAT HCO3 22.8; ISTAT PCO2 31.9 (35-45); ISTAT PH 7.461 (7.35-7.45); ISTAT PO2 73 (80-105); ISTAT SO2 96; ISTAT TCO2 24
[2016-06-28] MEDS: NORCO 7.5/325 PO PRN (21:58)
--- NOTE | 2016-06-29 09:42 | Progress Note ---
Assessment and Plan Acute kidney injury patient likely has a combination of acute tubular necrosis and obstructive uropathy Please order daily labs in her case Currently status post bilateral urinary stents patient is doing much better urine output has markedly improved she is diuresing very well now Anemia patient may require another packed red blood cell transfusion There is no need to start renal placement therapy she did not require 1 this admission but was very close to that Hydronephrosis noted on the ultrasonogram status was urology evaluation with Dr. Macias status post bilateral urinary stent Respiratory failure was intubated in ICU currently doing much better being followed by other disciplines Fluid overload currently diuresing very well continue to monitor electrolytes closely Overall doing much better from renal standpoint We'll continue to follow and make recommendations from renal standpoint Subjective Principal diagnosis: Acute Hypoxemic Respiratory Failure; s/p cardiopulmonary arrest Interval history: Patient was seen today for follow-up on multiple renal related issues She is currently nonoliguric, patient lab is currently pending from today she does not have any BMP her nausea is somewhat better hemoglobin was 7.7 yesterday She has diuresed significant amount of urine yesterday Currently status post ureteral stent Objective - Vital Signs Vital signs: Vital Signs - 12hr 06/28/16 06/28/16 06/29/16 21:58 22:00 00:17 Temperature 99 F Pulse Rate [ 87 Apical] Pulse Rate [ From Monitor] Respiratory 18 20 18 Rate Blood Pressure 164/75 [Left Arm] O2 Sat by Pulse 99 Oximetry 06/29/16 08:05 Temperature 97.9 F Pulse Rate [ Apical] Pulse Rate [ 98 H From Monitor] Respiratory 16 Rate Blood Pressure 187/84 [Left Arm] O2 Sat by Pulse 97 Oximetry - General Appearance General appearance: appears stated age EENT: mucous membranes moist Neck: no JVD Respiratory: Present: Rales (few bilateral basilar crackles but better today) Cardiology: regular (S1 and S2 heard no S3-S4 around) Gastrointestinal: normal (soft nontender abdomen) Integumentary: other (edema approximately 2+) - Lab 06/28/16 06:27 06/28/16 06:27 Most recent lab results Calcium 8.3 mg/dL (8.4-10.2) L 06/28/16 06:27 Magnesium 1.4 mg/dL (1.7-2.3) L 06/19/16 07:28
[2016-06-29 10:25] LABS: Chloride 102.1 mmol/L (98-107); Potassium 3.7 mmol/L (3.6-5.0)
[2016-06-29 10:55] LABS: BUN/Creatinine Ratio 14.32; Calcium 8.2 mg/dL (8.4-10.2)
[2016-06-29] MEDS: TENORMIN PO SCH (11:06)
[2016-06-29] MEDS: HALFPRIN EC PO SCH (11:06)
[2016-06-29] MEDS: FEOSOL PO SCH (11:06)
[2016-06-29] MEDS: PLAVIX PO SCH (11:06)
[2016-06-29] MEDS: PROTONIX PO SCH (11:07)
--- NOTE | 2016-06-29 11:52 | Progress Note ---
Assessment and Plan Patient with left lower extremity edema. Discussed leg elevation. May consider placing a compression hose on her leg if edema does not improve. The patient will need evaluation for an treatment with acute rehabilitation her activities of daily living. Subjective Date of service: 06/29/16 Principal diagnosis: Acute Hypoxemic Respiratory Failure; s/p cardiopulmonary arrest Interval history: Patient with a complex history of PVD who underwent a revascularization procedure on her left leg and she subsequently developed a hematoma that extended into the retroperitoneal's base requiring placement of bilateral ureteral stents. Her urine is clear. She remains on heparin. Stable appearance of the edema. Her left leg remains warm and well-perfused. Subjective improvement in temperature on her right leg. Right foot drop persists. Mental status has improved Objective - Constitutional Vitals: Vital Signs - 12hr 06/29/16 06/29/16 06/29/16 00:17 08:05 11:06 Temperature 99 F 97.9 F Pulse Rate [ 87 Apical] Pulse Rate [ 98 H From Monitor] Respiratory 18 16 Rate Blood Pressure 180/80 Blood Pressure 164/75 187/84 [Left Arm] O2 Sat by Pulse 99 97 Oximetry General appearance: Present: no acute distress - EENT Eyes: PERRL, EOM intact ENT: hearing intact - Neck Neck: supple, normal ROM - Respiratory Respiratory effort: normal - Breasts Breasts: deferred Extremities: abnormal (per HPI) - Gastrointestinal General gastrointestinal: Present: deferred Rectal Exam: deferred - Genitourinary Female genitourinary: deferred - Psychiatric Psychiatric: appropriate mood/affect, cooperative - Labs CBC & Chem 7: 06/28/16 06:27 06/29/16 09:10 Labs: Abnormal lab results 06/28/16 06/28/16 06/28/16 Range/Units 11:47 14:14 16:27 Heparin Anti-Xa Level (0.3-0.7) U.I./ml POC ABG pH 7.461 H (7.35-7.45) POC ABG pCO2 31.9 L (35-45) POC ABG pO2 73 L (80-105) BUN (7-17) mg/dL Creatinine (0.7-1.2) mg/dL Glucose (65-100) mg/dL POC Glucose 155 H 193 H (70-105) Calcium (8.4-10.2) mg/dL 06/28/16 06/28/16 06/29/16 Range/Units 20:47 22:59 05:51 Heparin Anti-Xa Level 1.16 H (0.3-0.7) U.I./ml POC ABG pH (7.35-7.45) POC ABG pCO2 (35-45) POC ABG pO2 (80-105) BUN (7-17) mg/dL Creatinine (0.7-1.2) mg/dL Glucose (65-100) mg/dL POC Glucose 126 H 121 H (70-105) Calcium (8.4-10.2) mg/dL 06/29/16 06/29/16 Range/Units 09:10 09:10 Heparin Anti-Xa Level 0.92 H (0.3-0.7) U.I./ml POC ABG pH (7.35-7.45) POC ABG pCO2 (35-45) POC ABG pO2 (80-105) BUN 53 H (7-17) mg/dL Creatinine 3.7 H (0.7-1.2) mg/dL Glucose 139 H (65-100) mg/dL POC Glucose (70-105) Calcium 8.2 L (8.4-10.2) mg/dL - Imaging and cardiology Venous US: image reviewed
--- NOTE | 2016-06-29 12:39 | Progress Note ---
Assessment and Plan - Patient Problems (1) Peripheral vascular disease of extremity Current Visit: Yes Status: Acute Plan to address problem: - clinically limb is warm and non tender but not totally out of the [place] yet - further interventions per attending team (2) Acute respiratory failure Current Visit: Yes Status: Acute Plan to address problem: - improved - on nasal canula prn now - continue aspiration precautions - prn bronchodilators (3) Anemia Current Visit: Yes Status: Acute Plan to address problem: - prn H&H (4) Altered mental status Current Visit: Yes Status: Acute Plan to address problem: - suspect dementia element - non focal exam - follows commands appropriately - will observe on monitored bed - much improved overall and per family close to baseline Subjective Date of service: 06/29/16 Principal diagnosis: Acute Hypoxemic Respiratory Failure; s/p cardiopulmonary arrest Interval history: Seen and examined at bedside; 24 hour events reviewed; nursing and respiratory care staff consulted; no adverse overnight events reported to me; no new issues respiratory-centeno today; no gross bleeding Objective Vital Signs - 12hr 06/29/16 06/29/16 06/29/16 08:05 11:06 11:30 Temperature 97.9 F 98.3 F Pulse Rate [ 98 H 90 From Monitor] Respiratory 16 16 Rate Blood Pressure 180/80 Blood Pressure 187/84 166/71 [Left Arm] O2 Sat by Pulse 97 Oximetry Constitutional: no acute distress, alert Eyes: non-icteric ENT: oropharynx moist Neck: supple, no lymphadenopathy Effort: normal Ascultation: Bilateral: clear, diminished breath sounds Cardiovascular: regular rate and rhythm Gastrointestinal: normoactive bowel sounds, soft, non-tender, non-distended Integumentary: other (weak LLExt) Extremities: no cyanosis, edema, other (LLExt pulses diminished but leg warm) Neurologic: normal mental status, non-focal exam, pupils equal and round, motor strength normal and Psychiatric: mood appropriate, affect normal CBC and BMP: 07/07/16 13:57 07/07/16 08:06 ABG, PT/INR, D-dimer: ABG POC ABG pH 7.461 (7.35-7.45) H 06/28/16 14:14 POC ABG pCO2 31.9 (35-45) L 06/28/16 14:14 POC ABG pO2 73 (80-105) L 06/28/16 14:14 POC ABG HCO3 22.8 06/28/16 14:14 POC ABG Total CO2 24 06/28/16 14:14 POC ABG O2 Sat 96 06/28/16 14:14 PT/INR, D-dimer PT 19.9 Sec. (12.2-14.9) H 06/26/16 22:57 INR 1.69 (0.87-1.13) H 06/26/16 22:57 Abnormal lab findings: Abnormal Labs 06/13/16 06/13/16 06/13/16 09:45 09:45 09:45 WBC RBC Hgb POC Hgb Hct POC Hct MCH 25 L MCHC RDW 15.8 H Plt Count Lymph % (Auto) [place] % (Auto) 8.1 H Lymph # [place] # Seg Neutrophils % Seg Neuts % (Manual) Lymphocytes % (Manual) Monocytes % (Manual) Nucleated RBC % Seg Neutrophils # Seg Neutrophils # Man Lymphocytes # (Manual) Monocytes # (Manual) PT INR APTT Fibrinogen 522 H Heparin Anti-Xa Level POC ABG pH POC ABG pCO2 POC ABG pO2 POC Potassium POC Chloride Sodium Potassium Chloride Carbon Dioxide POC BUN BUN Creatinine Glucose POC Glucose Calcium 10.3 H Magnesium Crossmatch 06/13/16 06/13/16 06/13/16 09:45 20:14 20:15 WBC RBC Hgb POC Hgb Hct POC Hct MCH MCHC RDW Plt Count Lymph % (Auto) [place] % (Auto) Lymph # [place] # Seg Neutrophils % Seg Neuts % (Manual) Lymphocytes % (Manual) Monocytes % (Manual) Nucleated RBC % Seg Neutrophils # Seg Neutrophils # Man Lymphocytes # (Manual) Monocytes # (Manual) PT INR APTT 103.8 H* Fibrinogen Heparin Anti-Xa Level 0.72 H POC ABG pH POC ABG pCO2 POC ABG pO2 POC Potassium POC Chloride Sodium Potassium Chloride Carbon Dioxide POC BUN BUN Creatinine Glucose POC Glucose Calcium Magnesium Crossmatch See Detail 06/14/16 06/14/16 06/14/16 07:44 10:18 19:09 WBC RBC Hgb POC Hgb Hct POC Hct MCH 26 L MCHC RDW 15.8 H Plt Count Lymph % (Auto) [place] % (Auto) 9.1 H Lymph # [place] # Seg Neutrophils % Seg Neuts % (Manual) Lymphocytes % (Manual) Monocytes % (Manual) Nucleated RBC % Seg Neutrophils # Seg Neutrophils # Man Lymphocytes # (Manual) Monocytes # (Manual) PT INR APTT Fibrinogen Heparin Anti-Xa Level 0.76 H POC ABG pH POC ABG pCO2 POC ABG pO2 POC Potassium POC Chloride Sodium Potassium Chloride Carbon Dioxide POC BUN BUN Creatinine Glucose POC Glucose 106 H Calcium Magnesium Crossmatch 06/15/16 06/15/16 06/15/16 04:43 04:43 22:49 WBC RBC Hgb 9.2 L POC Hgb Hct 28.4 L POC Hct MCH MCHC RDW Plt Count Lymph % (Auto) [place] % (Auto) Lymph # [place] # Seg Neutrophils % Seg Neuts % (Manual) Lymphocytes % (Manual) Monocytes % (Manual) Nucleated RBC % Seg Neutrophils # Seg Neutrophils # Man Lymphocytes # (Manual) Monocytes # (Manual) PT INR APTT Fibrinogen Heparin Anti-Xa Level 0.85 H POC ABG pH POC ABG pCO2 POC ABG pO2 POC Potassium POC Chloride Sodium Potassium Chloride Carbon Dioxide POC BUN BUN Creatinine Glucose POC Glucose 134 H Calcium Magnesium Crossmatch 06/16/16 06/16/16 06/16/16 08:55 08:55 14:21 WBC RBC Hgb POC Hgb 5.8 L Hct POC Hct 17 L MCH MCHC RDW Plt Count Lymph % (Auto) [place] % (Auto) Lymph # [place] # Seg Neutrophils % Seg Neuts % (Manual) Lymphocytes % (Manual) Monocytes % (Manual) Nucleated RBC % Seg Neutrophils # Seg Neutrophils # Man Lymphocytes # (Manual) Monocytes # (Manual) PT INR APTT 20.0 L Fibrinogen Heparin Anti-Xa Level POC ABG pH POC ABG pCO2 POC ABG pO2 POC Potassium 2.9 L POC Chloride Sodium Potassium Chloride Carbon Dioxide POC BUN 7 L BUN Creatinine Glucose POC Glucose 249 H Calcium Magnesium Crossmatch See Detail 06/16/16 06/16/16 06/16/16 16:55 17:41 17:48 WBC RBC Hgb POC Hgb 8.8 L Hct POC Hct 26 L < 15 L MCH MCHC RDW Plt Count Lymph % (Auto) [place] % (Auto) Lymph # [place] # Seg Neutrophils % Seg Neuts % (Manual) Lymphocytes % (Manual) Monocytes % (Manual) Nucleated RBC % Seg Neutrophils # Seg Neutrophils # Man Lymphocytes # (Manual) Monocytes # (Manual) PT INR APTT Fibrinogen Heparin Anti-Xa Level POC ABG pH 7.031 L POC ABG pCO2 POC ABG pO2 475 H POC Potassium 3.2 L POC Chloride 112 H 114 H Sodium Potassium Chloride Carbon Dioxide POC BUN 7 L 7 L BUN Creatinine Glucose POC Glucose 203 H 291 H Calcium Magnesium Crossmatch 06/16/16 06/16/16 06/16/16 18:07 19:09 20:10 WBC 15.8 H RBC Hgb POC Hgb 6.5 L Hct POC Hct 19 L MCH MCHC RDW Plt Count 38 L Lymph % (Auto) 5.9 L [place] % (Auto) 9.3 H Lymph # 0.9 L [place] # 1.5 H Seg Neutrophils % 84.6 H Seg Neuts % (Manual) Lymphocytes % (Manual) Monocytes % (Manual) Nucleated RBC % Seg Neutrophils # 13.3 H Seg Neutrophils # Man Lymphocytes # (Manual) Monocytes # (Manual) PT INR APTT Fibrinogen Heparin Anti-Xa Level POC ABG pH POC ABG pCO2 POC ABG pO2 POC Potassium POC Chloride 113 H Sodium Potassium Chloride Carbon Dioxide POC BUN 7 L BUN Creatinine Glucose POC Glucose 263 H 231 H Calcium Magnesium Crossmatch 06/16/16 06/16/16 06/16/16 20:10 20:18 21:10 WBC RBC Hgb POC Hgb Hct POC Hct MCH MCHC RDW Plt Count Lymph % (Auto) [place] % (Auto) Lymph # [place] # Seg Neutrophils % Seg Neuts % (Manual) Lymphocytes % (Manual) Monocytes % (Manual) Nucleated RBC % Seg Neutrophils # Seg Neutrophils # Man Lymphocytes # (Manual) Monocytes # (Manual) PT INR APTT Fibrinogen Heparin Anti-Xa Level POC ABG pH 7.236 L 7.280 L POC ABG pCO2 POC ABG pO2 139 H 145 H POC Potassium POC Chloride Sodium Potassium 3.4 L Chloride 114.5 H Carbon Dioxide 17 L D POC BUN BUN Creatinine Glucose 188 H POC Glucose Calcium 6.1 L D Magnesium Crossmatch 06/16/16 06/17/16 06/17/16 22:53 04:48 05:35 WBC RBC Hgb POC Hgb Hct POC Hct MCH MCHC RDW Plt Count Lymph % (Auto) [place] % (Auto) Lymph # [place] # Seg Neutrophils % Seg Neuts % (Manual) Lymphocytes % (Manual) Monocytes % (Manual) Nucleated RBC % Seg Neutrophils # Seg Neutrophils # Man Lymphocytes # (Manual) Monocytes # (Manual) PT INR APTT Fibrinogen Heparin Anti-Xa Level POC ABG pH POC ABG pCO2 33.9 L 22.2 L POC ABG pO2 152 H 154 H POC Potassium POC Chloride Sodium 150 H Potassium 3.4 L Chloride 114.2 H Carbon Dioxide 16 L POC BUN BUN Creatinine Glucose 221 H POC Glucose Calcium 7.6 L D Magnesium Crossmatch 06/17/16 06/18/16 06/18/16 09:22 07:26 08:25 WBC 20.3 H RBC 3.41 L Hgb 9.9 L POC Hgb Hct 29.7 L POC Hct MCH MCHC RDW Plt Count Lymph % (Auto) [place] % (Auto) Lymph # [place] # Seg Neutrophils % Seg Neuts % (Manual) 81.0 H Lymphocytes % (Manual) 6.0 L Monocytes % (Manual) 12.0 H Nucleated RBC % Seg Neutrophils # Seg Neutrophils # Man 16.4 H Lymphocytes # (Manual) Monocytes # (Manual) 2.4 H PT INR APTT Fibrinogen Heparin Anti-Xa Level POC ABG pH POC ABG pCO2 POC ABG pO2 POC Potassium POC Chloride Sodium Potassium 3.1 L Chloride Carbon Dioxide POC BUN BUN Creatinine Glucose 136 H POC Glucose 141 H Calcium 7.5 L Magnesium Crossmatch 06/18/16 06/18/16 06/18/16 08:25 11:09 19:40 WBC RBC Hgb 6.5 L D POC Hgb Hct 19.3 L* D POC Hct MCH MCHC RDW Plt Count 131 L Lymph % (Auto) [place] % (Auto) Lymph # [place] # Seg Neutrophils % Seg Neuts % (Manual) Lymphocytes % (Manual) Monocytes % (Manual) Nucleated RBC % Seg Neutrophils # Seg Neutrophils # Man Lymphocytes # (Manual) Monocytes # (Manual) PT INR APTT Fibrinogen Heparin Anti-Xa Level POC ABG pH 7.490 H POC ABG pCO2 POC ABG pO2 131 H POC Potassium POC Chloride Sodium Potassium Chloride Carbon Dioxide POC BUN BUN Creatinine Glucose POC Glucose 125 H Calcium Magnesium Crossmatch 06/18/16 06/19/16 06/19/16 21:10 07:07 07:28 WBC 13.6 H RBC 2.17 L Hgb 6.5 L POC Hgb Hct 18.8 L* POC Hct MCH MCHC 35 H RDW Plt Count 131 L Lymph % (Auto) 10.1 L [place] % (Auto) 9.3 H Lymph # [place] # 1.3 H Seg Neutrophils % 79.7 H Seg Neuts % (Manual) Lymphocytes % (Manual) Monocytes % (Manual) Nucleated RBC % Seg Neutrophils # 10.8 H Seg Neutrophils # Man Lymphocytes # (Manual) Monocytes # (Manual) PT INR APTT Fibrinogen Heparin Anti-Xa Level 0.75 H POC ABG pH POC ABG pCO2 POC ABG pO2 POC Potassium POC Chloride Sodium Potassium 3.5 L Chloride Carbon Dioxide POC BUN BUN Creatinine Glucose 104 H POC Glucose Calcium 7.6 L Magnesium 1.4 L Crossmatch 06/20/16 06/20/16 06/20/16 04:15 18:15 18:15 WBC 16.6 H RBC 1.19 L Hgb 9.2 L 3.5 L* D POC Hgb Hct 27.5 L D 11.0 L* D POC Hct MCH MCHC RDW Plt Count 138 L Lymph % (Auto) [place] % (Auto) Lymph # [place] # Seg Neutrophils % Seg Neuts % (Manual) Lymphocytes % (Manual) Monocytes % (Manual) Nucleated RBC % Seg Neutrophils # Seg Neutrophils # Man Lymphocytes # (Manual) Monocytes # (Manual) PT INR APTT Fibrinogen Heparin Anti-Xa Level POC ABG pH POC ABG pCO2 POC ABG pO2 POC Potassium POC Chloride Sodium 146 H Potassium Chloride Carbon Dioxide 14 L D POC BUN BUN Creatinine Glucose 31 L* POC Glucose Calcium 6.7 L Magnesium Crossmatch 06/20/16 06/20/16 06/20/16 18:15 19:33 19:36 WBC RBC Hgb POC Hgb Hct POC Hct MCH MCHC RDW Plt Count Lymph % (Auto) [place] % (Auto) Lymph # [place] # Seg Neutrophils % Seg Neuts % (Manual) Lymphocytes % (Manual) Monocytes % (Manual) Nucleated RBC % Seg Neutrophils # Seg Neutrophils # Man Lymphocytes # (Manual) Monocytes # (Manual) PT INR APTT Fibrinogen Heparin Anti-Xa Level POC ABG pH POC ABG pCO2 26.3 L POC ABG pO2 394 H POC Potassium POC Chloride Sodium Potassium Chloride Carbon Dioxide POC BUN BUN Creatinine Glucose POC Glucose 212 H Calcium Magnesium Crossmatch See Detail 06/20/16 06/20/16 06/21/16 22:01 23:00 00:35 WBC RBC Hgb POC Hgb Hct POC Hct MCH MCHC RDW Plt Count Lymph % (Auto) [place] % (Auto) Lymph # [place] # Seg Neutrophils % Seg Neuts % (Manual) Lymphocytes % (Manual) Monocytes % (Manual) Nucleated RBC % Seg Neutrophils # Seg Neutrophils # Man Lymphocytes # (Manual) Monocytes # (Manual) PT 21.3 H INR 1.85 H APTT 48.4 H Fibrinogen Heparin Anti-Xa Level POC ABG pH POC ABG pCO2 POC ABG pO2 POC Potassium POC Chloride Sodium Potassium Chloride Carbon Dioxide POC BUN BUN Creatinine Glucose POC Glucose 149 H 147 H Calcium Magnesium Crossmatch 06/21/16 06/21/16 06/21/16 04:30 04:30 06:01 WBC 21.7 H RBC 3.58 L Hgb POC Hgb Hct POC Hct MCH MCHC 35 H RDW Plt Count 116 L Lymph % (Auto) [place] % (Auto) Lymph # [place] # Seg Neutrophils % Seg Neuts % (Manual) Lymphocytes % (Manual) 8.0 L Monocytes % (Manual) Nucleated RBC % 3.0 H Seg Neutrophils # Seg Neutrophils # Man 13.7 H Lymphocytes # (Manual) Monocytes # (Manual) 1.5 H PT INR APTT Fibrinogen Heparin Anti-Xa Level POC ABG pH 7.541 H POC ABG pCO2 21.1 L POC ABG pO2 108 H POC Potassium POC Chloride Sodium Potassium 3.0 L Chloride 110.3 H Carbon Dioxide 18 L POC BUN BUN 18 H Creatinine Glucose 141 H POC Glucose Calcium 6.4 L Magnesium Crossmatch 06/21/16 06/21/16 06/21/16 07:00 10:02 17:51 WBC RBC Hgb 8.3 L POC Hgb Hct 24.7 L D POC Hct MCH MCHC RDW Plt Count Lymph % (Auto) [place] % (Auto) Lymph # [place] # Seg Neutrophils % Seg Neuts % (Manual) Lymphocytes % (Manual) Monocytes % (Manual) Nucleated RBC % Seg Neutrophils # Seg Neutrophils # Man Lymphocytes # (Manual) Monocytes # (Manual) PT INR APTT Fibrinogen Heparin Anti-Xa Level POC ABG pH POC ABG pCO2 POC ABG pO2 POC Potassium POC Chloride Sodium Potassium Chloride Carbon Dioxide POC BUN BUN Creatinine Glucose POC Glucose 132 H 106 H Calcium Magnesium Crossmatch 06/22/16 06/22/16 06/22/16 05:00 05:00 06:40 WBC 20.6 H RBC 3.54 L Hgb POC Hgb Hct POC Hct MCH MCHC RDW Plt Count 129 L Lymph % (Auto) [place] % (Auto) Lymph # [place] # Seg Neutrophils % Seg Neuts % (Manual) 87.0 H Lymphocytes % (Manual) 4.0 L Monocytes % (Manual) Nucleated RBC % 4.0 H Seg Neutrophils # Seg Neutrophils # Man 17.9 H Lymphocytes # (Manual) 0.8 L Monocytes # (Manual) 1.2 H PT INR APTT Fibrinogen Heparin Anti-Xa Level POC ABG pH POC ABG pCO2 21.9 L POC ABG pO2 118 H POC Potassium POC Chloride Sodium Potassium Chloride 109.9 H Carbon Dioxide 15 L POC BUN BUN 26 H Creatinine 2.2 H D Glucose POC Glucose Calcium 6.3 L Magnesium Crossmatch 06/22/16 06/22/16 06/22/16 09:15 09:15 23:17 WBC RBC Hgb 9.1 L POC Hgb Hct 26.9 L POC Hct MCH MCHC RDW Plt Count 116 L Lymph % (Auto) [place] % (Auto) Lymph # [place] # Seg Neutrophils % Seg Neuts % (Manual) Lymphocytes % (Manual) Monocytes % (Manual) Nucleated RBC % Seg Neutrophils # Seg Neutrophils # Man Lymphocytes # (Manual) Monocytes # (Manual) PT 15.8 H INR 1.27 H APTT Fibrinogen Heparin Anti-Xa Level POC ABG pH POC ABG pCO2 POC ABG pO2 POC Potassium POC Chloride Sodium Potassium Chloride Carbon Dioxide POC BUN BUN Creatinine Glucose POC Glucose 134 H Calcium Magnesium Crossmatch 06/23/16 06/23/16 06/23/16 05:43 05:43 09:44 WBC 13.8 H RBC 2.70 L Hgb 8.1 L POC Hgb Hct 24.2 L POC Hct MCH MCHC RDW Plt Count 93 L Lymph % (Auto) 6.2 L [place] % (Auto) Lymph # 0.9 L [place] # Seg Neutrophils % 89.2 H Seg Neuts % (Manual) Lymphocytes % (Manual) Monocytes % (Manual) Nucleated RBC % Seg Neutrophils # 12.3 H Seg Neutrophils # Man Lymphocytes # (Manual) Monocytes # (Manual) PT INR APTT Fibrinogen Heparin Anti-Xa Level POC ABG pH 7.593 H POC ABG pCO2 26.8 L POC ABG pO2 141 H POC Potassium POC Chloride Sodium 146 H Potassium Chloride Carbon Dioxide POC BUN BUN 32 H Creatinine 2.6 H Glucose 142 H POC Glucose Calcium 7.0 L Magnesium Crossmatch 06/23/16 06/23/16 06/23/16 11:23 17:42 23:32 WBC RBC Hgb POC Hgb Hct POC Hct MCH MCHC RDW Plt Count Lymph % (Auto) [place] % (Auto) Lymph # [place] # Seg Neutrophils % Seg Neuts % (Manual) Lymphocytes % (Manual) Monocytes % (Manual) Nucleated RBC % Seg Neutrophils # Seg Neutrophils # Man Lymphocytes # (Manual) Monocytes # (Manual) PT INR APTT Fibrinogen Heparin Anti-Xa Level POC ABG pH POC ABG pCO2 POC ABG pO2 POC Potassium POC Chloride Sodium Potassium Chloride Carbon Dioxide POC BUN BUN Creatinine Glucose POC Glucose 138 H 133 H 111 H Calcium Magnesium Crossmatch 06/24/16 06/24/16 06/24/16 06:27 08:10 08:10 WBC 16.6 H RBC 2.91 L Hgb 8.9 L POC Hgb Hct 26.4 L POC Hct MCH MCHC RDW 15.6 H Plt Count 115 L Lymph % (Auto) 4.6 L [place] % (Auto) Lymph # 0.8 L [place] # 1.0 H Seg Neutrophils % 89.2 H Seg Neuts % (Manual) Lymphocytes % (Manual) Monocytes % (Manual) Nucleated RBC % Seg Neutrophils # 14.9 H Seg Neutrophils # Man Lymphocytes # (Manual) Monocytes # (Manual) PT INR APTT Fibrinogen Heparin Anti-Xa Level POC ABG pH POC ABG pCO2 POC ABG pO2 POC Potassium POC Chloride Sodium 146 H Potassium Chloride Carbon Dioxide POC BUN BUN 37 H Creatinine 2.9 H Glucose POC Glucose 109 H Calcium 7.5 L Magnesium Crossmatch 06/24/16 06/24/16 06/24/16 12:05 17:57 22:13 WBC RBC Hgb POC Hgb Hct POC Hct MCH MCHC RDW Plt Count Lymph % (Auto) [place] % (Auto) Lymph # [place] # Seg Neutrophils % Seg Neuts % (Manual) Lymphocytes % (Manual) Monocytes % (Manual) Nucleated RBC % Seg Neutrophils # Seg Neutrophils # Man Lymphocytes # (Manual) Monocytes # (Manual) PT INR APTT Fibrinogen Heparin Anti-Xa Level POC ABG pH POC ABG pCO2 POC ABG pO2 POC Potassium POC Chloride Sodium Potassium Chloride Carbon Dioxide POC BUN BUN Creatinine Glucose POC Glucose 117 H 124 H 116 H Calcium Magnesium Crossmatch 06/25/16 06/25/16 06/25/16 06:42 06:49 12:14 WBC RBC Hgb POC Hgb Hct POC Hct MCH MCHC RDW Plt Count Lymph % (Auto) [place] % (Auto) Lymph # [place] # Seg Neutrophils % Seg Neuts % (Manual) Lymphocytes % (Manual) Monocytes % (Manual) Nucleated RBC % Seg Neutrophils # Seg Neutrophils # Man Lymphocytes # (Manual) Monocytes # (Manual) PT INR APTT Fibrinogen Heparin Anti-Xa Level POC ABG pH POC ABG pCO2 POC ABG pO2 POC Potassium POC Chloride Sodium Potassium Chloride Carbon Dioxide POC BUN BUN 46 H Creatinine 3.6 H Glucose 133 H POC Glucose 137 H 136 H Calcium 7.4 L Magnesium Crossmatch 06/25/16 06/25/16 06/26/16 16:07 21:32 05:55 WBC RBC Hgb POC Hgb Hct POC Hct MCH MCHC RDW Plt Count Lymph % (Auto) [place] % (Auto) Lymph # [place] # Seg Neutrophils % Seg Neuts % (Manual) Lymphocytes % (Manual) Monocytes % (Manual) Nucleated RBC % Seg Neutrophils # Seg Neutrophils # Man Lymphocytes # (Manual) Monocytes # (Manual) PT INR APTT Fibrinogen Heparin Anti-Xa Level POC ABG pH POC ABG pCO2 POC ABG pO2 POC Potassium POC Chloride Sodium Potassium Chloride Carbon Dioxide 20 L POC BUN BUN 55 H Creatinine 4.2 H Glucose 120 H POC Glucose 146 H 146 H Calcium 7.5 L Magnesium Crossmatch 06/26/16 06/26/16 06/26/16 06:30 11:38 16:45 WBC RBC Hgb POC Hgb Hct POC Hct MCH MCHC RDW Plt Count Lymph % (Auto) [place] % (Auto) Lymph # [place] # Seg Neutrophils % Seg Neuts % (Manual) Lymphocytes % (Manual) Monocytes % (Manual) Nucleated RBC % Seg Neutrophils # Seg Neutrophils # Man Lymphocytes # (Manual) Monocytes # (Manual) PT INR APTT Fibrinogen Heparin Anti-Xa Level POC ABG pH POC ABG pCO2 POC ABG pO2 POC Potassium POC Chloride Sodium Potassium Chloride Carbon Dioxide POC BUN BUN Creatinine Glucose POC Glucose 128 H 143 H 121 H Calcium Magnesium Crossmatch 06/26/16 06/26/16 06/27/16 22:57 22:57 00:47 WBC RBC Hgb 8.4 L POC Hgb Hct 25.1 L POC Hct MCH MCHC RDW Plt Count Lymph % (Auto) [place] % (Auto) Lymph # [place] # Seg Neutrophils % Seg Neuts % (Manual) Lymphocytes % (Manual) Monocytes % (Manual) Nucleated RBC % Seg Neutrophils # Seg Neutrophils # Man Lymphocytes # (Manual) Monocytes # (Manual) PT 19.9 H INR 1.69 H APTT Fibrinogen Heparin Anti-Xa Level POC ABG pH POC ABG pCO2 POC ABG pO2 POC Potassium POC Chloride Sodium Potassium Chloride Carbon Dioxide POC BUN BUN Creatinine Glucose POC Glucose 110 H Calcium Magnesium Crossmatch 06/27/16 06/27/16 06/27/16 05:43 05:43 06:40 WBC RBC Hgb POC Hgb Hct POC Hct MCH MCHC RDW Plt Count Lymph % (Auto) [place] % (Auto) Lymph # [place] # Seg Neutrophils % Seg Neuts % (Manual) Lymphocytes % (Manual) Monocytes % (Manual) Nucleated RBC % Seg Neutrophils # Seg Neutrophils # Man Lymphocytes # (Manual) Monocytes # (Manual) PT INR APTT Fibrinogen Heparin Anti-Xa Level 2.00 H POC ABG pH POC ABG pCO2 POC ABG pO2 POC Potassium POC Chloride Sodium Potassium Chloride Carbon Dioxide 20 L POC BUN BUN 58 H Creatinine 4.8 H Glucose POC Glucose 109 H Calcium 8.1 L Magnesium Crossmatch 06/27/16 06/27/16 06/27/16 08:15 16:46 17:47 WBC RBC Hgb POC Hgb Hct POC Hct MCH MCHC RDW Plt Count Lymph % (Auto) [place] % (Auto) Lymph # [place] # Seg Neutrophils % Seg Neuts % (Manual) Lymphocytes % (Manual) Monocytes % (Manual) Nucleated RBC % Seg Neutrophils # Seg Neutrophils # Man Lymphocytes # (Manual) Monocytes # (Manual) PT INR APTT Fibrinogen Heparin Anti-Xa Level > 2.00 H 1.87 H POC ABG pH POC ABG pCO2 POC ABG pO2 POC Potassium POC Chloride Sodium Potassium Chloride Carbon Dioxide POC BUN BUN Creatinine Glucose POC Glucose 231 H Calcium Magnesium Crossmatch 06/27/16 06/27/16 06/28/16 21:23 23:54 06:27 WBC RBC Hgb POC Hgb Hct POC Hct MCH MCHC RDW Plt Count Lymph % (Auto) [place] % (Auto) Lymph # [place] # Seg Neutrophils % Seg Neuts % (Manual) Lymphocytes % (Manual) Monocytes % (Manual) Nucleated RBC % Seg Neutrophils # Seg Neutrophils # Man Lymphocytes # (Manual) Monocytes # (Manual) PT INR APTT Fibrinogen Heparin Anti-Xa Level 1.70 H POC ABG pH POC ABG pCO2 POC ABG pO2 POC Potassium POC Chloride Sodium Potassium Chloride Carbon Dioxide POC BUN BUN 62 H Creatinine 4.5 H Glucose 111 H POC Glucose 122 H Calcium 8.3 L Magnesium Crossmatch 06/28/16 06/28/16 06/28/16 06:27 11:47 14:14 WBC RBC Hgb 7.7 L POC Hgb Hct 22.9 L POC Hct MCH MCHC RDW Plt Count Lymph % (Auto) [place] % (Auto) Lymph # [place] # Seg Neutrophils % Seg Neuts % (Manual) Lymphocytes % (Manual) Monocytes % (Manual) Nucleated RBC % Seg Neutrophils # Seg Neutrophils # Man Lymphocytes # (Manual) Monocytes # (Manual) PT INR APTT Fibrinogen Heparin Anti-Xa Level POC ABG pH 7.461 H POC ABG pCO2 31.9 L POC ABG pO2 73 L POC Potassium POC Chloride Sodium Potassium Chloride Carbon Dioxide POC BUN BUN Creatinine Glucose POC Glucose 155 H Calcium Magnesium Crossmatch 06/28/16 06/28/16 06/28/16 16:27 20:47 22:59 WBC RBC Hgb POC Hgb Hct POC Hct MCH MCHC RDW Plt Count Lymph % (Auto) [place] % (Auto) Lymph # [place] # Seg Neutrophils % Seg Neuts % (Manual) Lymphocytes % (Manual) Monocytes % (Manual) Nucleated RBC % Seg Neutrophils # Seg Neutrophils # Man Lymphocytes # (Manual) Monocytes # (Manual) PT INR APTT Fibrinogen Heparin Anti-Xa Level 1.16 H POC ABG pH POC ABG pCO2 POC ABG pO2 POC Potassium POC Chloride Sodium Potassium Chloride Carbon Dioxide POC BUN BUN Creatinine Glucose POC Glucose 193 H 126 H Calcium Magnesium Crossmatch 06/29/16 06/29/16 06/29/16 05:51 09:10 09:10 WBC RBC Hgb POC Hgb Hct POC Hct MCH MCHC RDW Plt Count Lymph % (Auto) [place] % (Auto) Lymph # [place] # Seg Neutrophils % Seg Neuts % (Manual) Lymphocytes % (Manual) Monocytes % (Manual) Nucleated RBC % Seg Neutrophils # Seg Neutrophils # Man Lymphocytes # (Manual) Monocytes # (Manual) PT INR APTT Fibrinogen Heparin Anti-Xa Level 0.92 H POC ABG pH POC ABG pCO2 POC ABG pO2 POC Potassium POC Chloride Sodium Potassium Chloride Carbon Dioxide POC BUN BUN 53 H Creatinine 3.7 H Glucose 139 H POC Glucose 121 H Calcium 8.2 L Magnesium Crossmatch
[2016-06-29] MEDS: NORCO 7.5/325 PO PRN (15:53)
[2016-06-30] MEDS: HEPARIN/ 0.45% NACL-25,000 UNIT/500 ML 500 ML IV SCH (04:42)
--- NOTE | 2016-06-30 08:12 | Vascular Lab Report ---
Left Lower Extremity Venous Duplex Study: Reason for Exam: Left leg swelling. Comments on the Right: A limited duplex study was done of the proximal veins of the right lower extremity. All veins visualized are freely compressible without evidence of internal echogenicity. Flow is spontaneous and phasic throughout. No evidence of acute or chronic thrombus is seen in any of the vessels visualized. Comments on the Left: All veins visualized are freely compressible without evidence of internal echogenicity. Flow is spontaneous and phasic throughout. No evidence of acute or chronic thrombus is seen in any of the vessels visualized. Impression: No evidence of acute or chronic deep venous thrombosis in the left lower extremity.
[2016-06-30 08:27] LABS: Hematocrit 21.9 % (30.3-42.9); Hemoglobin 7.3 gm/dl (10.1-14.3)
--- NOTE | 2016-06-30 10:03 | Progress Note ---
Assessment and Plan Impression: * REJI/ATN * Anemia Acute blood loss * Respiratory Failure * PVD * Metabolic acidosis Plan: * dialy lytes * likely ATN due to cardiac arrest and hypovolumia * cr was improving at last check * daily lytes * avoid nephrotoxins * strict i/os Subjective Date of service: 06/30/16 Principal diagnosis: Acute Hypoxemic Respiratory Failure; s/p cardiopulmonary arrest Interval history: resting well in bed today Objective - Exam Narrative Exam: General appearance: no acute distress - EENT Eyes: PERRL, EOM intact ENT: hearing intact, other (ETT tube in mouth) - Neck Neck: supple, normal ROM - Respiratory Respiratory effort: normal Respiratory: bilateral: CTA - Cardiovascular Rhythm: regular Heart Sounds: Present: S1 & S2 Extremities: abnormal (Severe swelling and bruising L thigh; R thigh with femoral catheter and no bleeding) - Gastrointestinal General gastrointestinal: Present: soft, non-tender, non-distended, other (NG tube shows bilious material without blood) - Integumentary Integumentary: Present: clear, warm, dry - Neurologic Neurological: alert and oriented x3 - Vital Signs Vital signs: Vital Signs - 12hr 06/30/16 06/30/16 00:00 07:30 Temperature 99.3 F 98.1 F Pulse Rate [ 99 H Apical] Respiratory 22 18 Rate Blood Pressure 130/63 150/72 [Left Arm] O2 Sat by Pulse 98 97 Oximetry - Lab 06/30/16 08:07 06/29/16 09:10 Most recent lab results Calcium 8.2 mg/dL (8.4-10.2) L 06/29/16 09:10 Magnesium 1.4 mg/dL (1.7-2.3) L 06/19/16 07:28
[2016-06-30] MEDS: FEOSOL PO SCH (11:13)
[2016-06-30] MEDS: TENORMIN PO SCH (11:13)
[2016-06-30] MEDS: PROTONIX PO SCH (11:14)
[2016-06-30] MEDS: PLAVIX PO SCH (11:14)
[2016-06-30] MEDS: HALFPRIN EC PO SCH (11:14)
[2016-06-30] MEDS: VITAMIN D2 PO SCH (11:18)
[2016-06-30 11:31] LABS: BUN/Creatinine Ratio 15.33; Calcium 8.4 mg/dL (8.4-10.2); Chloride 102.5 mmol/L (98-107)
--- NOTE | 2016-06-30 15:36 | Progress Note ---
Assessment and Plan The patient continues to do well. She is working with physical therapy. Her renal function is improving with placement of the ureteral stents and she continues to diurese well. Her hemoglobin has remained stable and will likely improve with diuresis. We'll convert her from a heparin drip to oral anticoagulation. She has been accepted to rehabilitation and will hopefully transfer this week. Subjective Date of service: 06/30/16 Principal diagnosis: Acute Hypoxemic Respiratory Failure; s/p cardiopulmonary arrest Interval history: The patient appears to have neuropathic pain but no other complaints at this time. Her creatinine is trending down after placement of her ureteral stents. Objective - Constitutional Vitals: Vital Signs - 12hr 06/30/16 06/30/16 07:30 11:13 Temperature 98.1 F Respiratory 18 Rate Blood Pressure 138/74 Blood Pressure 150/72 [Left Arm] O2 Sat by Pulse 97 Oximetry General appearance: Present: no acute distress - Respiratory Respiratory effort: normal - Cardiovascular Rhythm: regular Extremities: normal temperature Extremity abnormal: edema (significant left lower extremity edema wounds with stable blistering and minimal drainage legs are well perfused) - Gastrointestinal General gastrointestinal: Present: soft, non-tender, distended - Labs CBC & Chem 7: 06/30/16 08:07 06/30/16 10:48 Labs: Abnormal lab results 06/29/16 06/30/16 06/30/16 Range/Units 21:22 05:09 08:07 Hgb 7.3 L (10.1-14.3) gm/dl Hct 21.9 L (30.3-42.9) % BUN (7-17) mg/dL Creatinine (0.7-1.2) mg/dL POC Glucose 108 H 106 H (70-105) 06/30/16 06/30/16 Range/Units 10:48 12:13 Hgb (10.1-14.3) gm/dl Hct (30.3-42.9) % BUN 46 H (7-17) mg/dL Creatinine 3.0 H (0.7-1.2) mg/dL POC Glucose 153 H (70-105)
--- NOTE | 2016-06-30 16:39 | Event Note ---
Date: 06/30/16 [facility] F/U, s/p fem-pop. Pt seen on this afternoon; remains motivated to become more functionally independent, however, with ongoing debility. Noted to have retroperitoneal bleed leading to bilateral hydronephrosis; s/p urethral stents; also with right foot drop. Urine output has improved. Pt with ongoing anemia; to be converted from heparin to oral A/C. [id number] completed with medical coder of insurance on today; pt approved for [facility] admission pending medical clearance. Will need to continue to follow H/H.
--- NOTE | 2016-06-30 21:41 | Progress Note ---
Assessment and Plan Patient awake,following commands.No acute respiratory distress.Patient presently on room air. O2 satuaration 97%. - Patient Problems (1) Acute respiratory failure Current Visit: Yes Status: Acute Plan to address problem: Patient presently undergoing spontaneous breathing trials. Pressure support 10 cm H20 and FIO2 30%. 06/27/16 Respiratory status improved. No acute respiratory distress. On room air . O2 satuaration 100%. 06/30/16 Patient is on room air. No respiratory distress. O2 satuaration 97%. (2) Cardiopulmonary arrest with successful resuscitation Current Visit: Yes Status: Acute Plan to address problem: Patient resuciated . Patient is on mechanical ventilation and vasopressors. 06/27/16 Improved. alert,awake following commands. !08/31/15 Patient alert,awake and following commands. (3) Left lower lobe pneumonia Current Visit: Yes Status: Acute Plan to address problem: Patient running low grade temp. Patient has leukocytosis. Chest xray showing left lower lobe infiltrate, Obtaining blood cultures Tracheal aspirate for gram stain and C&S. Urin for U/A C&S. Starting on Zosyn. 06/27/16 Patient afebrile Repeating chest xray. 06/30/16 Repeat chest xray reported increased left pleural effusion. Obtaining ultrasound of chest. (4) Atherosclerosis of [place] arteries of extremity with intermittent claudication Current Visit: Yes Status: Acute Plan to address problem: Management as per vascular surgery. (5) Metabolic acidosis Current Visit: Yes Status: Acute Plan to address problem: Obtaining Lactate level. Given I/V Bicarb. 06/27/16 Improving. 06/30/16 Metabolic acidosis improved. (6) ATN (acute tubular necrosis) Current Visit: Yes Status: Acute Plan to address problem: Nephrology consulted. Management as per nephrology. Subjective Date of service: 06/30/16 Principal diagnosis: Acute Hypoxemic Respiratory Failure; s/p cardiopulmonary arrest Interval history: Patient awake,following commands.No acute respiratory distress.Patient presently on room air. O2 satuaration 97%. Objective Vital Signs - 12hr 06/30/16 11:13 Blood Pressure 138/74 Constitutional: no acute distress, alert Eyes: non-icteric ENT: oropharynx moist Neck: supple, no lymphadenopathy Effort: normal Ascultation: Bilateral: diminished breath sounds, rhonchi (posterior bases) Cardiovascular: regular rate and rhythm Gastrointestinal: normoactive bowel sounds, soft, non-tender, non-distended Integumentary: other (weak LLExt) Extremities: no cyanosis, edema, other (LLExt pulses diminished but leg warm) Neurologic: normal mental status, non-focal exam, pupils equal and round, motor strength normal and Psychiatric: mood appropriate, affect normal CBC and BMP: 06/30/16 08:07 06/30/16 10:48 ABG, PT/INR, D-dimer: ABG POC ABG pH 7.461 (7.35-7.45) H 06/28/16 14:14 POC ABG pCO2 31.9 (35-45) L 06/28/16 14:14 POC ABG pO2 73 (80-105) L 06/28/16 14:14 POC ABG HCO3 22.8 06/28/16 14:14 POC ABG Total CO2 24 06/28/16 14:14 POC ABG O2 Sat 96 06/28/16 14:14 PT/INR, D-dimer PT 19.9 Sec. (12.2-14.9) H 06/26/16 22:57 INR 1.69 (0.87-1.13) H 06/26/16 22:57 Abnormal lab findings: Abnormal Labs 06/13/16 06/13/16 06/13/16 09:45 09:45 09:45 WBC RBC Hgb POC Hgb Hct POC Hct MCH 25 L MCHC RDW 15.8 H Plt Count Lymph % (Auto) [place] % (Auto) 8.1 H Lymph # [place] # Seg Neutrophils % Seg Neuts % (Manual) Lymphocytes % (Manual) Monocytes % (Manual) Nucleated RBC % Seg Neutrophils # Seg Neutrophils # Man Lymphocytes # (Manual) Monocytes # (Manual) PT INR APTT Fibrinogen 522 H Heparin Anti-Xa Level POC ABG pH POC ABG pCO2 POC ABG pO2 POC Potassium POC Chloride Sodium Potassium Chloride Carbon Dioxide POC BUN BUN Creatinine Glucose POC Glucose Calcium 10.3 H Magnesium Crossmatch 06/13/16 06/13/16 06/13/16 09:45 20:14 20:15 WBC RBC Hgb POC Hgb Hct POC Hct MCH MCHC RDW Plt Count Lymph % (Auto) [place] % (Auto) Lymph # [place] # Seg Neutrophils % Seg Neuts % (Manual) Lymphocytes % (Manual) Monocytes % (Manual) Nucleated RBC % Seg Neutrophils # Seg Neutrophils # Man Lymphocytes # (Manual) Monocytes # (Manual) PT INR APTT 103.8 H* Fibrinogen Heparin Anti-Xa Level 0.72 H POC ABG pH POC ABG pCO2 POC ABG pO2 POC Potassium POC Chloride Sodium Potassium Chloride Carbon Dioxide POC BUN BUN Creatinine Glucose POC Glucose Calcium Magnesium Crossmatch See Detail 06/14/16 06/14/16 06/14/16 07:44 10:18 19:09 WBC RBC Hgb POC Hgb Hct POC Hct MCH 26 L MCHC RDW 15.8 H Plt Count Lymph % (Auto) [place] % (Auto) 9.1 H Lymph # [place] # Seg Neutrophils % Seg Neuts % (Manual) Lymphocytes % (Manual) Monocytes % (Manual) Nucleated RBC % Seg Neutrophils # Seg Neutrophils # Man Lymphocytes # (Manual) Monocytes # (Manual) PT INR APTT Fibrinogen Heparin Anti-Xa Level 0.76 H POC ABG pH POC ABG pCO2 POC ABG pO2 POC Potassium POC Chloride Sodium Potassium Chloride Carbon Dioxide POC BUN BUN Creatinine Glucose POC Glucose 106 H Calcium Magnesium Crossmatch 06/15/16 06/15/16 06/15/16 04:43 04:43 22:49 WBC RBC Hgb 9.2 L POC Hgb Hct 28.4 L POC Hct MCH MCHC RDW Plt Count Lymph % (Auto) [place] % (Auto) Lymph # [place] # Seg Neutrophils % Seg Neuts % (Manual) Lymphocytes % (Manual) Monocytes % (Manual) Nucleated RBC % Seg Neutrophils # Seg Neutrophils # Man Lymphocytes # (Manual) Monocytes # (Manual) PT INR APTT Fibrinogen Heparin Anti-Xa Level 0.85 H POC ABG pH POC ABG pCO2 POC ABG pO2 POC Potassium POC Chloride Sodium Potassium Chloride Carbon Dioxide POC BUN BUN Creatinine Glucose POC Glucose 134 H Calcium Magnesium Crossmatch 06/16/16 06/16/16 06/16/16 08:55 08:55 14:21 WBC RBC Hgb POC Hgb 5.8 L Hct POC Hct 17 L MCH MCHC RDW Plt Count Lymph % (Auto) [place] % (Auto) Lymph # [place] # Seg Neutrophils % Seg Neuts % (Manual) Lymphocytes % (Manual) Monocytes % (Manual) Nucleated RBC % Seg Neutrophils # Seg Neutrophils # Man Lymphocytes # (Manual) Monocytes # (Manual) PT INR APTT 20.0 L Fibrinogen Heparin Anti-Xa Level POC ABG pH POC ABG pCO2 POC ABG pO2 POC Potassium 2.9 L POC Chloride Sodium Potassium Chloride Carbon Dioxide POC BUN 7 L BUN Creatinine Glucose POC Glucose 249 H Calcium Magnesium Crossmatch See Detail 06/16/16 06/16/16 06/16/16 16:55 17:41 17:48 WBC RBC Hgb POC Hgb 8.8 L Hct POC Hct 26 L < 15 L MCH MCHC RDW Plt Count Lymph % (Auto) [place] % (Auto) Lymph # [place] # Seg Neutrophils % Seg Neuts % (Manual) Lymphocytes % (Manual) Monocytes % (Manual) Nucleated RBC % Seg Neutrophils # Seg Neutrophils # Man Lymphocytes # (Manual) Monocytes # (Manual) PT INR APTT Fibrinogen Heparin Anti-Xa Level POC ABG pH 7.031 L POC ABG pCO2 POC ABG pO2 475 H POC Potassium 3.2 L POC Chloride 112 H 114 H Sodium Potassium Chloride Carbon Dioxide POC BUN 7 L 7 L BUN Creatinine Glucose POC Glucose 203 H 291 H Calcium Magnesium Crossmatch 06/16/16 06/16/16 06/16/16 18:07 19:09 20:10 WBC 15.8 H RBC Hgb POC Hgb 6.5 L Hct POC Hct 19 L MCH MCHC RDW Plt Count 38 L Lymph % (Auto) 5.9 L [place] % (Auto) 9.3 H Lymph # 0.9 L [place] # 1.5 H Seg Neutrophils % 84.6 H Seg Neuts % (Manual) Lymphocytes % (Manual) Monocytes % (Manual) Nucleated RBC % Seg Neutrophils # 13.3 H Seg Neutrophils # Man Lymphocytes # (Manual) Monocytes # (Manual) PT INR APTT Fibrinogen Heparin Anti-Xa Level POC ABG pH POC ABG pCO2 POC ABG pO2 POC Potassium POC Chloride 113 H Sodium Potassium Chloride Carbon Dioxide POC BUN 7 L BUN Creatinine Glucose POC Glucose 263 H 231 H Calcium Magnesium Crossmatch 06/16/16 06/16/16 06/16/16 20:10 20:18 21:10 WBC RBC Hgb POC Hgb Hct POC Hct MCH MCHC RDW Plt Count Lymph % (Auto) [place] % (Auto) Lymph # [place] # Seg Neutrophils % Seg Neuts % (Manual) Lymphocytes % (Manual) Monocytes % (Manual) Nucleated RBC % Seg Neutrophils # Seg Neutrophils # Man Lymphocytes # (Manual) Monocytes # (Manual) PT INR APTT Fibrinogen Heparin Anti-Xa Level POC ABG pH 7.236 L 7.280 L POC ABG pCO2 POC ABG pO2 139 H 145 H POC Potassium POC Chloride Sodium Potassium 3.4 L Chloride 114.5 H Carbon Dioxide 17 L D POC BUN BUN Creatinine Glucose 188 H POC Glucose Calcium 6.1 L D Magnesium Crossmatch 06/16/16 06/17/16 06/17/16 22:53 04:48 05:35 WBC RBC Hgb POC Hgb Hct POC Hct MCH MCHC RDW Plt Count Lymph % (Auto) [place] % (Auto) Lymph # [place] # Seg Neutrophils % Seg Neuts % (Manual) Lymphocytes % (Manual) Monocytes % (Manual) Nucleated RBC % Seg Neutrophils # Seg Neutrophils # Man Lymphocytes # (Manual) Monocytes # (Manual) PT INR APTT Fibrinogen Heparin Anti-Xa Level POC ABG pH POC ABG pCO2 33.9 L 22.2 L POC ABG pO2 152 H 154 H POC Potassium POC Chloride Sodium 150 H Potassium 3.4 L Chloride 114.2 H Carbon Dioxide 16 L POC BUN BUN Creatinine Glucose 221 H POC Glucose Calcium 7.6 L D Magnesium Crossmatch 06/17/16 06/18/16 06/18/16 09:22 07:26 08:25 WBC 20.3 H RBC 3.41 L Hgb 9.9 L POC Hgb Hct 29.7 L POC Hct MCH MCHC RDW Plt Count Lymph % (Auto) [place] % (Auto) Lymph # [place] # Seg Neutrophils % Seg Neuts % (Manual) 81.0 H Lymphocytes % (Manual) 6.0 L Monocytes % (Manual) 12.0 H Nucleated RBC % Seg Neutrophils # Seg Neutrophils # Man 16.4 H Lymphocytes # (Manual) Monocytes # (Manual) 2.4 H PT INR APTT Fibrinogen Heparin Anti-Xa Level POC ABG pH POC ABG pCO2 POC ABG pO2 POC Potassium POC Chloride Sodium Potassium 3.1 L Chloride Carbon Dioxide POC BUN BUN Creatinine Glucose 136 H POC Glucose 141 H Calcium 7.5 L Magnesium Crossmatch 06/18/16 06/18/16 06/18/16 08:25 11:09 19:40 WBC RBC Hgb 6.5 L D POC Hgb Hct 19.3 L* D POC Hct MCH MCHC RDW Plt Count 131 L Lymph % (Auto) [place] % (Auto) Lymph # [place] # Seg Neutrophils % Seg Neuts % (Manual) Lymphocytes % (Manual) Monocytes % (Manual) Nucleated RBC % Seg Neutrophils # Seg Neutrophils # Man Lymphocytes # (Manual) Monocytes # (Manual) PT INR APTT Fibrinogen Heparin Anti-Xa Level POC ABG pH 7.490 H POC ABG pCO2 POC ABG pO2 131 H POC Potassium POC Chloride Sodium Potassium Chloride Carbon Dioxide POC BUN BUN Creatinine Glucose POC Glucose 125 H Calcium Magnesium Crossmatch 06/18/16 06/19/16 06/19/16 21:10 07:07 07:28 WBC 13.6 H RBC 2.17 L Hgb 6.5 L POC Hgb Hct 18.8 L* POC Hct MCH MCHC 35 H RDW Plt Count 131 L Lymph % (Auto) 10.1 L [place] % (Auto) 9.3 H Lymph # [place] # 1.3 H Seg Neutrophils % 79.7 H Seg Neuts % (Manual) Lymphocytes % (Manual) Monocytes % (Manual) Nucleated RBC % Seg Neutrophils # 10.8 H Seg Neutrophils # Man Lymphocytes # (Manual) Monocytes # (Manual) PT INR APTT Fibrinogen Heparin Anti-Xa Level 0.75 H POC ABG pH POC ABG pCO2 POC ABG pO2 POC Potassium POC Chloride Sodium Potassium 3.5 L Chloride Carbon Dioxide POC BUN BUN Creatinine Glucose 104 H POC Glucose Calcium 7.6 L Magnesium 1.4 L Crossmatch 06/20/16 06/20/16 06/20/16 04:15 18:15 18:15 WBC 16.6 H RBC 1.19 L Hgb 9.2 L 3.5 L* D POC Hgb Hct 27.5 L D 11.0 L* D POC Hct MCH MCHC RDW Plt Count 138 L Lymph % (Auto) [place] % (Auto) Lymph # [place] # Seg Neutrophils % Seg Neuts % (Manual) Lymphocytes % (Manual) Monocytes % (Manual) Nucleated RBC % Seg Neutrophils # Seg Neutrophils # Man Lymphocytes # (Manual) Monocytes # (Manual) PT INR APTT Fibrinogen Heparin Anti-Xa Level POC ABG pH POC ABG pCO2 POC ABG pO2 POC Potassium POC Chloride Sodium 146 H Potassium Chloride Carbon Dioxide 14 L D POC BUN BUN Creatinine Glucose 31 L* POC Glucose Calcium 6.7 L Magnesium Crossmatch 06/20/16 06/20/16 06/20/16 18:15 19:33 19:36 WBC RBC Hgb POC Hgb Hct POC Hct MCH MCHC RDW Plt Count Lymph % (Auto) [place] % (Auto) Lymph # [place] # Seg Neutrophils % Seg Neuts % (Manual) Lymphocytes % (Manual) Monocytes % (Manual) Nucleated RBC % Seg Neutrophils # Seg Neutrophils # Man Lymphocytes # (Manual) Monocytes # (Manual) PT INR APTT Fibrinogen Heparin Anti-Xa Level POC ABG pH POC ABG pCO2 26.3 L POC ABG pO2 394 H POC Potassium POC Chloride Sodium Potassium Chloride Carbon Dioxide POC BUN BUN Creatinine Glucose POC Glucose 212 H Calcium Magnesium Crossmatch See Detail 06/20/16 06/20/16 06/21/16 22:01 23:00 00:35 WBC RBC Hgb POC Hgb Hct POC Hct MCH MCHC RDW Plt Count Lymph % (Auto) [place] % (Auto) Lymph # [place] # Seg Neutrophils % Seg Neuts % (Manual) Lymphocytes % (Manual) Monocytes % (Manual) Nucleated RBC % Seg Neutrophils # Seg Neutrophils # Man Lymphocytes # (Manual) Monocytes # (Manual) PT 21.3 H INR 1.85 H APTT 48.4 H Fibrinogen Heparin Anti-Xa Level POC ABG pH POC ABG pCO2 POC ABG pO2 POC Potassium POC Chloride Sodium Potassium Chloride Carbon Dioxide POC BUN BUN Creatinine Glucose POC Glucose 149 H 147 H Calcium Magnesium Crossmatch 06/21/16 06/21/16 06/21/16 04:30 04:30 06:01 WBC 21.7 H RBC 3.58 L Hgb POC Hgb Hct POC Hct MCH MCHC 35 H RDW Plt Count 116 L Lymph % (Auto) [place] % (Auto) Lymph # [place] # Seg Neutrophils % Seg Neuts % (Manual) Lymphocytes % (Manual) 8.0 L Monocytes % (Manual) Nucleated RBC % 3.0 H Seg Neutrophils # Seg Neutrophils # Man 13.7 H Lymphocytes # (Manual) Monocytes # (Manual) 1.5 H PT INR APTT Fibrinogen Heparin Anti-Xa Level POC ABG pH 7.541 H POC ABG pCO2 21.1 L POC ABG pO2 108 H POC Potassium POC Chloride Sodium Potassium 3.0 L Chloride 110.3 H Carbon Dioxide 18 L POC BUN BUN 18 H Creatinine Glucose 141 H POC Glucose Calcium 6.4 L Magnesium Crossmatch 06/21/16 06/21/16 06/21/16 07:00 10:02 17:51 WBC RBC Hgb 8.3 L POC Hgb Hct 24.7 L D POC Hct MCH MCHC RDW Plt Count Lymph % (Auto) [place] % (Auto) Lymph # [place] # Seg Neutrophils % Seg Neuts % (Manual) Lymphocytes % (Manual) Monocytes % (Manual) Nucleated RBC % Seg Neutrophils # Seg Neutrophils # Man Lymphocytes # (Manual) Monocytes # (Manual) PT INR APTT Fibrinogen Heparin Anti-Xa Level POC ABG pH POC ABG pCO2 POC ABG pO2 POC Potassium POC Chloride Sodium Potassium Chloride Carbon Dioxide POC BUN BUN Creatinine Glucose POC Glucose 132 H 106 H Calcium Magnesium Crossmatch 06/22/16 06/22/16 06/22/16 05:00 05:00 06:40 WBC 20.6 H RBC 3.54 L Hgb POC Hgb Hct POC Hct MCH MCHC RDW Plt Count 129 L Lymph % (Auto) [place] % (Auto) Lymph # [place] # Seg Neutrophils % Seg Neuts % (Manual) 87.0 H Lymphocytes % (Manual) 4.0 L Monocytes % (Manual) Nucleated RBC % 4.0 H Seg Neutrophils # Seg Neutrophils # Man 17.9 H Lymphocytes # (Manual) 0.8 L Monocytes # (Manual) 1.2 H PT INR APTT Fibrinogen Heparin Anti-Xa Level POC ABG pH POC ABG pCO2 21.9 L POC ABG pO2 118 H POC Potassium POC Chloride Sodium Potassium Chloride 109.9 H Carbon Dioxide 15 L POC BUN BUN 26 H Creatinine 2.2 H D Glucose POC Glucose Calcium 6.3 L Magnesium Crossmatch 06/22/16 06/22/16 06/22/16 09:15 09:15 23:17 WBC RBC Hgb 9.1 L POC Hgb Hct 26.9 L POC Hct MCH MCHC RDW Plt Count 116 L Lymph % (Auto) [place] % (Auto) Lymph # [place] # Seg Neutrophils % Seg Neuts % (Manual) Lymphocytes % (Manual) Monocytes % (Manual) Nucleated RBC % Seg Neutrophils # Seg Neutrophils # Man Lymphocytes # (Manual) Monocytes # (Manual) PT 15.8 H INR 1.27 H APTT Fibrinogen Heparin Anti-Xa Level POC ABG pH POC ABG pCO2 POC ABG pO2 POC Potassium POC Chloride Sodium Potassium Chloride Carbon Dioxide POC BUN BUN Creatinine Glucose POC Glucose 134 H Calcium Magnesium Crossmatch 06/23/16 06/23/16 06/23/16 05:43 05:43 09:44 WBC 13.8 H RBC 2.70 L Hgb 8.1 L POC Hgb Hct 24.2 L POC Hct MCH MCHC RDW Plt Count 93 L Lymph % (Auto) 6.2 L [place] % (Auto) Lymph # 0.9 L [place] # Seg Neutrophils % 89.2 H Seg Neuts % (Manual) Lymphocytes % (Manual) Monocytes % (Manual) Nucleated RBC % Seg Neutrophils # 12.3 H Seg Neutrophils # Man Lymphocytes # (Manual) Monocytes # (Manual) PT INR APTT Fibrinogen Heparin Anti-Xa Level POC ABG pH 7.593 H POC ABG pCO2 26.8 L POC ABG pO2 141 H POC Potassium POC Chloride Sodium 146 H Potassium Chloride Carbon Dioxide POC BUN BUN 32 H Creatinine 2.6 H Glucose 142 H POC Glucose Calcium 7.0 L Magnesium Crossmatch 06/23/16 06/23/16 06/23/16 11:23 17:42 23:32 WBC RBC Hgb POC Hgb Hct POC Hct MCH MCHC RDW Plt Count Lymph % (Auto) [place] % (Auto) Lymph # [place] # Seg Neutrophils % Seg Neuts % (Manual) Lymphocytes % (Manual) Monocytes % (Manual) Nucleated RBC % Seg Neutrophils # Seg Neutrophils # Man Lymphocytes # (Manual) Monocytes # (Manual) PT INR APTT Fibrinogen Heparin Anti-Xa Level POC ABG pH POC ABG pCO2 POC ABG pO2 POC Potassium POC Chloride Sodium Potassium Chloride Carbon Dioxide POC BUN BUN Creatinine Glucose POC Glucose 138 H 133 H 111 H Calcium Magnesium Crossmatch 06/24/16 06/24/16 06/24/16 06:27 08:10 08:10 WBC 16.6 H RBC 2.91 L Hgb 8.9 L POC Hgb Hct 26.4 L POC Hct MCH MCHC RDW 15.6 H Plt Count 115 L Lymph % (Auto) 4.6 L [place] % (Auto) Lymph # 0.8 L [place] # 1.0 H Seg Neutrophils % 89.2 H Seg Neuts % (Manual) Lymphocytes % (Manual) Monocytes % (Manual) Nucleated RBC % Seg Neutrophils # 14.9 H Seg Neutrophils # Man Lymphocytes # (Manual) Monocytes # (Manual) PT INR APTT Fibrinogen Heparin Anti-Xa Level POC ABG pH POC ABG pCO2 POC ABG pO2 POC Potassium POC Chloride Sodium 146 H Potassium Chloride Carbon Dioxide POC BUN BUN 37 H Creatinine 2.9 H Glucose POC Glucose 109 H Calcium 7.5 L Magnesium Crossmatch 06/24/16 06/24/16 06/24/16 12:05 17:57 22:13 WBC RBC Hgb POC Hgb Hct POC Hct MCH MCHC RDW Plt Count Lymph % (Auto) [place] % (Auto) Lymph # [place] # Seg Neutrophils % Seg Neuts % (Manual) Lymphocytes % (Manual) Monocytes % (Manual) Nucleated RBC % Seg Neutrophils # Seg Neutrophils # Man Lymphocytes # (Manual) Monocytes # (Manual) PT INR APTT Fibrinogen Heparin Anti-Xa Level POC ABG pH POC ABG pCO2 POC ABG pO2 POC Potassium POC Chloride Sodium Potassium Chloride Carbon Dioxide POC BUN BUN Creatinine Glucose POC Glucose 117 H 124 H 116 H Calcium Magnesium Crossmatch 06/25/16 06/25/16 06/25/16 06:42 06:49 12:14 WBC RBC Hgb POC Hgb Hct POC Hct MCH MCHC RDW Plt Count Lymph % (Auto) [place] % (Auto) Lymph # [place] # Seg Neutrophils % Seg Neuts % (Manual) Lymphocytes % (Manual) Monocytes % (Manual) Nucleated RBC % Seg Neutrophils # Seg Neutrophils # Man Lymphocytes # (Manual) Monocytes # (Manual) PT INR APTT Fibrinogen Heparin Anti-Xa Level POC ABG pH POC ABG pCO2 POC ABG pO2 POC Potassium POC Chloride Sodium Potassium Chloride Carbon Dioxide POC BUN BUN 46 H Creatinine 3.6 H Glucose 133 H POC Glucose 137 H 136 H Calcium 7.4 L Magnesium Crossmatch 06/25/16 06/25/16 06/26/16 16:07 21:32 05:55 WBC RBC Hgb POC Hgb Hct POC Hct MCH MCHC RDW Plt Count Lymph % (Auto) [place] % (Auto) Lymph # [place] # Seg Neutrophils % Seg Neuts % (Manual) Lymphocytes % (Manual) Monocytes % (Manual) Nucleated RBC % Seg Neutrophils # Seg Neutrophils # Man Lymphocytes # (Manual) Monocytes # (Manual) PT INR APTT Fibrinogen Heparin Anti-Xa Level POC ABG pH POC ABG pCO2 POC ABG pO2 POC Potassium POC Chloride Sodium Potassium Chloride Carbon Dioxide 20 L POC BUN BUN 55 H Creatinine 4.2 H Glucose 120 H POC Glucose 146 H 146 H Calcium 7.5 L Magnesium Crossmatch 06/26/16 06/26/16 06/26/16 06:30 11:38 16:45 WBC RBC Hgb POC Hgb Hct POC Hct MCH MCHC RDW Plt Count Lymph % (Auto) [place] % (Auto) Lymph # [place] # Seg Neutrophils % Seg Neuts % (Manual) Lymphocytes % (Manual) Monocytes % (Manual) Nucleated RBC % Seg Neutrophils # Seg Neutrophils # Man Lymphocytes # (Manual) Monocytes # (Manual) PT INR APTT Fibrinogen Heparin Anti-Xa Level POC ABG pH POC ABG pCO2 POC ABG pO2 POC Potassium POC Chloride Sodium Potassium Chloride Carbon Dioxide POC BUN BUN Creatinine Glucose POC Glucose 128 H 143 H 121 H Calcium Magnesium Crossmatch 06/26/16 06/26/16 06/27/16 22:57 22:57 00:47 WBC RBC Hgb 8.4 L POC Hgb Hct 25.1 L POC Hct MCH MCHC RDW Plt Count Lymph % (Auto) [place] % (Auto) Lymph # [place] # Seg Neutrophils % Seg Neuts % (Manual) Lymphocytes % (Manual) Monocytes % (Manual) Nucleated RBC % Seg Neutrophils # Seg Neutrophils # Man Lymphocytes # (Manual) Monocytes # (Manual) PT 19.9 H INR 1.69 H APTT Fibrinogen Heparin Anti-Xa Level POC ABG pH POC ABG pCO2 POC ABG pO2 POC Potassium POC Chloride Sodium Potassium Chloride Carbon Dioxide POC BUN BUN Creatinine Glucose POC Glucose 110 H Calcium Magnesium Crossmatch 06/27/16 06/27/16 06/27/16 05:43 05:43 06:40 WBC RBC Hgb POC Hgb Hct POC Hct MCH MCHC RDW Plt Count Lymph % (Auto) [place] % (Auto) Lymph # [place] # Seg Neutrophils % Seg Neuts % (Manual) Lymphocytes % (Manual) Monocytes % (Manual) Nucleated RBC % Seg Neutrophils # Seg Neutrophils # Man Lymphocytes # (Manual) Monocytes # (Manual) PT INR APTT Fibrinogen Heparin Anti-Xa Level 2.00 H POC ABG pH POC ABG pCO2 POC ABG pO2 POC Potassium POC Chloride Sodium Potassium Chloride Carbon Dioxide 20 L POC BUN BUN 58 H Creatinine 4.8 H Glucose POC Glucose 109 H Calcium 8.1 L Magnesium Crossmatch 06/27/16 06/27/16 06/27/16 08:15 16:46 17:47 WBC RBC Hgb POC Hgb Hct POC Hct MCH MCHC RDW Plt Count Lymph % (Auto) [place] % (Auto) Lymph # [place] # Seg Neutrophils % Seg Neuts % (Manual) Lymphocytes % (Manual) Monocytes % (Manual) Nucleated RBC % Seg Neutrophils # Seg Neutrophils # Man Lymphocytes # (Manual) Monocytes # (Manual) PT INR APTT Fibrinogen Heparin Anti-Xa Level > 2.00 H 1.87 H POC ABG pH POC ABG pCO2 POC ABG pO2 POC Potassium POC Chloride Sodium Potassium Chloride Carbon Dioxide POC BUN BUN Creatinine Glucose POC Glucose 231 H Calcium Magnesium Crossmatch 06/27/16 06/27/16 06/28/16 21:23 23:54 06:27 WBC RBC Hgb POC Hgb Hct POC Hct MCH MCHC RDW Plt Count Lymph % (Auto) [place] % (Auto) Lymph # [place] # Seg Neutrophils % Seg Neuts % (Manual) Lymphocytes % (Manual) Monocytes % (Manual) Nucleated RBC % Seg Neutrophils # Seg Neutrophils # Man Lymphocytes # (Manual) Monocytes # (Manual) PT INR APTT Fibrinogen Heparin Anti-Xa Level 1.70 H POC ABG pH POC ABG pCO2 POC ABG pO2 POC Potassium POC Chloride Sodium Potassium Chloride Carbon Dioxide POC BUN BUN 62 H Creatinine 4.5 H Glucose 111 H POC Glucose 122 H Calcium 8.3 L Magnesium Crossmatch 06/28/16 06/28/16 06/28/16 06:27 11:47 14:14 WBC RBC Hgb 7.7 L POC Hgb Hct 22.9 L POC Hct MCH MCHC RDW Plt Count Lymph % (Auto) [place] % (Auto) Lymph # [place] # Seg Neutrophils % Seg Neuts % (Manual) Lymphocytes % (Manual) Monocytes % (Manual) Nucleated RBC % Seg Neutrophils # Seg Neutrophils # Man Lymphocytes # (Manual) Monocytes # (Manual) PT INR APTT Fibrinogen Heparin Anti-Xa Level POC ABG pH 7.461 H POC ABG pCO2 31.9 L POC ABG pO2 73 L POC Potassium POC Chloride Sodium Potassium Chloride Carbon Dioxide POC BUN BUN Creatinine Glucose POC Glucose 155 H Calcium Magnesium Crossmatch 06/28/16 06/28/16 06/28/16 16:27 20:47 22:59 WBC RBC Hgb POC Hgb Hct POC Hct MCH MCHC RDW Plt Count Lymph % (Auto) [place] % (Auto) Lymph # [place] # Seg Neutrophils % Seg Neuts % (Manual) Lymphocytes % (Manual) Monocytes % (Manual) Nucleated RBC % Seg Neutrophils # Seg Neutrophils # Man Lymphocytes # (Manual) Monocytes # (Manual) PT INR APTT Fibrinogen Heparin Anti-Xa Level 1.16 H POC ABG pH POC ABG pCO2 POC ABG pO2 POC Potassium POC Chloride Sodium Potassium Chloride Carbon Dioxide POC BUN BUN Creatinine Glucose POC Glucose 193 H 126 H Calcium Magnesium Crossmatch 06/29/16 06/29/16 06/29/16 05:51 09:10 09:10 WBC RBC Hgb POC Hgb Hct POC Hct MCH MCHC RDW Plt Count Lymph % (Auto) [place] % (Auto) Lymph # [place] # Seg Neutrophils % Seg Neuts % (Manual) Lymphocytes % (Manual) Monocytes % (Manual) Nucleated RBC % Seg Neutrophils # Seg Neutrophils # Man Lymphocytes # (Manual) Monocytes # (Manual) PT INR APTT Fibrinogen Heparin Anti-Xa Level 0.92 H POC ABG pH POC ABG pCO2 POC ABG pO2 POC Potassium POC Chloride Sodium Potassium Chloride Carbon Dioxide POC BUN BUN 53 H Creatinine 3.7 H Glucose 139 H POC Glucose 121 H Calcium 8.2 L Magnesium Crossmatch 06/29/16 06/30/16 06/30/16 21:22 05:09 08:07 WBC RBC Hgb 7.3 L POC Hgb Hct 21.9 L POC Hct MCH MCHC RDW Plt Count Lymph % (Auto) [place] % (Auto) Lymph # [place] # Seg Neutrophils % Seg Neuts % (Manual) Lymphocytes % (Manual) Monocytes % (Manual) Nucleated RBC % Seg Neutrophils # Seg Neutrophils # Man Lymphocytes # (Manual) Monocytes # (Manual) PT INR APTT Fibrinogen Heparin Anti-Xa Level POC ABG pH POC ABG pCO2 POC ABG pO2 POC Potassium POC Chloride Sodium Potassium Chloride Carbon Dioxide POC BUN BUN Creatinine Glucose POC Glucose 108 H 106 H Calcium Magnesium Crossmatch 06/30/16 06/30/16 06/30/16 10:48 12:13 16:48 WBC RBC Hgb POC Hgb Hct POC Hct MCH MCHC RDW Plt Count Lymph % (Auto) [place] % (Auto) Lymph # [place] # Seg Neutrophils % Seg Neuts % (Manual) Lymphocytes % (Manual) Monocytes % (Manual) Nucleated RBC % Seg Neutrophils # Seg Neutrophils # Man Lymphocytes # (Manual) Monocytes # (Manual) PT INR APTT Fibrinogen Heparin Anti-Xa Level POC ABG pH POC ABG pCO2 POC ABG pO2 POC Potassium POC Chloride Sodium Potassium Chloride Carbon Dioxide POC BUN BUN 46 H Creatinine 3.0 H Glucose POC Glucose 153 H 152 H Calcium Magnesium Crossmatch
[2016-06-30] MEDS: ELIQUIS PO SCH (22:00)
[2016-06-30] MEDS: MORPHINE IV PRN (23:00)
[2016-07-01] MEDS: NORCO 7.5/325 PO PRN (07:13)
--- NOTE | 2016-07-01 07:54 | Progress Note ---
Assessment and Plan Impression: * REJI/ATN * Anemia Acute blood loss * Respiratory Failure * PVD * Metabolic acidosis Plan: * dialy lytes * likely ATN due to cardiac arrest and hypovolumia * cr is improving * no need for HOME CARE ATTENDANT at this point * daily lytes * avoid nephrotoxins * strict i/os Subjective Date of service: 07/01/16 Principal diagnosis: Acute Hypoxemic Respiratory Failure; s/p cardiopulmonary arrest Interval history: resting well in bed today Objective - Exam Narrative Exam: General appearance: no acute distress - EENT Eyes: PERRL, EOM intact ENT: hearing intact, other (ETT tube in mouth) - Neck Neck: supple, normal ROM - Respiratory Respiratory effort: normal Respiratory: bilateral: CTA - Cardiovascular Rhythm: regular Heart Sounds: Present: S1 & S2 Extremities: abnormal (Severe swelling and bruising L thigh; R thigh with femoral catheter and no bleeding) - Gastrointestinal General gastrointestinal: Present: soft, non-tender, non-distended, other (NG tube shows bilious material without blood) - Integumentary Integumentary: Present: clear, warm, dry - Neurologic Neurological: alert and oriented x3 - Vital Signs Vital signs: Vital Signs - 12hr 06/30/16 06/30/16 06/30/16 22:00 23:00 23:30 Temperature Pulse Rate [ Apical] Respiratory 20 18 Rate Respiratory 20 Rate [Bilateral Leg] Blood Pressure [Left Arm] O2 Sat by Pulse Oximetry 07/01/16 07/01/16 00:00 07:13 Temperature 98.9 F Pulse Rate [ 92 H Apical] Respiratory 20 20 Rate Respiratory Rate [Bilateral Leg] Blood Pressure 140/62 [Left Arm] O2 Sat by Pulse 96 Oximetry - Lab 06/30/16 08:07 06/30/16 10:48 Most recent lab results Calcium 8.4 mg/dL (8.4-10.2) 06/30/16 10:48 Magnesium 1.4 mg/dL (1.7-2.3) L 06/19/16 07:28
[2016-07-01 08:12] LABS: Basophils % (Auto) 0.4 % (0.0-1.8); Eosinophils % (Auto) 0.4 % (0.0-4.3); Hematocrit 22.2 % (30.3-42.9); Hemoglobin 7.2 gm/dl (10.1-14.3); Mean Corpuscular HGB Conc 33 % (30-34); Mean Corpuscular Hemoglobin 30 pg (28-32); Mean Corpuscular Volume 90 fl (79-97); Platelet Count 481 K/mm3 (140-440); Red Blood Count 2.45 M/mm3 (3.65-5.03); Red Cell Distribution Width 15.2 % (13.2-15.2); White Blood Count 19.8 K/mm3 (4.5-11.0)
[2016-07-01 08:32] LABS: BUN/Creatinine Ratio 17.27; Calcium 8.4 mg/dL (8.4-10.2); Potassium 3.1 mmol/L (3.6-5.0)
[2016-07-01] MEDS: D5/0.45NS 1,000 ML IV SCH (11:00)
[2016-07-01] MEDS: ELIQUIS PO SCH ×2 (12:15→22:23)
[2016-07-01] MEDS: FEOSOL PO SCH (12:16)
[2016-07-01] MEDS: TENORMIN PO SCH (12:16)
[2016-07-01] MEDS: PROTONIX PO SCH (12:17)
[2016-07-01] MEDS: PLAVIX PO SCH (12:17)
[2016-07-01] MEDS: HALFPRIN EC PO SCH (12:17)
[2016-07-01] MEDS: MORPHINE IV PRN (12:18)
--- NOTE | 2016-07-01 18:35 | Discharge Summary ---
Providers - Providers Date of Admission: 06/13/16 10:46 Date of discharge: 07/01/16 Attending physician: JOSE ANGEL JEREZ 06/13/16 11:21 Consult to Physician [CONS] Routine Consulting Provider: GERALDINE GONSALES Reason For Exam: Critical Care Admission Place consult to:: Dr Gonsales Notified:: yes Was contact made?: Yes If yes, spoke with:: Dr Garza Time called:: 11:00 06/13/16 11:58 Consult to Physician [CONS] Routine Consulting Provider: JOSH ASHFORD Reason For Exam: Cardiac Clearance for Bypass Place consult to:: DR ASHFORD Notified:: [facility] AT [facility] Phone number called:: [phone] Was contact made?: Yes If yes, spoke with:: LORE AT [facility] Time called:: 21:00 Comment:: DR KEMP 06/16/16 19:49 Consult to Dietitian/Nutrition [CONS] Routine Physician Instructions: Reason For Exam: Reason for Consult: Evaluate nutritional intake 06/21/16 13:39 Consult to Physician [CONS] Routine Consulting Provider: ERIKA CARTY Reason For Exam: Coffee Ground Emesis and Bloody Bowel Movement Place consult to:: dr carty Notified:: yes Phone number called:: [phone] Was contact made?: Yes If yes, spoke with:: spoke with dr carty Time called:: 14:33 06/22/16 08:02 Consult to Physician [CONS] Stat Consulting Provider: NITIN VANCE Reason For Exam: dr. vance Place consult to:: dr. vance Notified:: paged 06/22/16 15:03 Consult to Dietitian/Nutrition [CONS] Routine Physician Instructions: Reason For Exam: Reason for Consult: Write/Manage Tube Feeding 06/23/16 14:39 Physical Therapy Evaluation and Treat [CONS] Routine Comment: Reason For Exam: Eval and Treat 06/23/16 19:25 Consult to Wound/ET Nurse [CONS] Routine Reason For Exam: wound eval blisters on left leg and groin 06/24/16 16:04 Consult Acute Rehabilitation [CONS] Routine Consulting Provider: ARACELIS CHAMORRO Reason For Exam: Physical Therapy / strength training 06/27/16 08:00 Consult to Physician [CONS] Routine Consulting Provider: EVA DANIELLE Reason For Exam: hydronephrosis, bilateral, unclear cause ; CT pend Place consult to:: Dr Macias Notified:: notified Primary care physician: VERONICA MACHADO Hospitalization Reason for admission: Ischemic Left Lower Extremity Condition: Stable Procedures: Operative Report Operative Report: Date of Procedure: 06/13/2016 Pre-operative Diagnosis: Acute Left Lower Extremity Ischemia Post-operative Diagnosis: Same Procedure(s): 1. Ultrasound-Guided Access Right Common Femoral Artery 2. Diagnostic Aortogram with Left Lower Excision of Any Runoff (No Previous Films for Comparison) 3. First Order Catheter Placement 4. Closure of Right Femoral Arteriotomy with Pro-Mobile Closure Device 5. Radiologic Supervision with Interpretation Surgeon: Jose Angel Jerez M.D. Language Teacher: Misbah Anesthesia: Local and IV sedation EBL: Minimal Counts: Correct Complications: None Condition: Stable Specimen: None Indication: The patient is a 55-year-old female with a history of peripheral vascular disease and previous intervention of bilateral lower extremities. She presented with complaints of rest pain and had an ultrasound that demonstrated occlusion of her external iliac and common femoral artery on the left with an KYLAH of 0.2. She was offered an arteriogram with possible intervention. She was given the risks, benefits, and alternative procedures and consented to the procedure. Angiographic Findings: The aortogram demonstrated the aorta is widely patent and bilateral common iliac arteries widely patent. The patient's left hypogastric artery and proximal external iliac artery were widely patent. The distal extremity leg artery and common femoral artery were occluded with reconstitution of flow in the profunda artery through collaterals. The proximal SFA reconstituted however there was a string sign and a previously placed stent in the SFA was occluded. There was reconstitution of flow and the above-knee popliteal artery. The patient had two-vessel runoff through peroneal and anterior tibial artery that appeared to be widely patent down to the foot. Patient Name: DARNELL IRIZARRY Date of : 60 Patient Status: Inpatient Attending Provider: JOSE ANGEL JEREZ Date: 06/16/16 18:47 Initialization Date: 06/16/16 18:47 Date of procedure: 06/16/16 Pre-op diagnosis: PVD with Left Foot Rest Pain Post-op diagnosis: same Procedure: 1. Left Common Femoral and Distal External Iliac Endarterectomy 2. Left External Iliac Angioplasty and Stent with 7 x 10 cm and 7 x 5 cm Viabahn Stent Grafts and 7 x 40 Balloon 3. Left SFA Remote Endarterectomy 4. Left Femoral Artery to Popliteal Artery Bypass with In Situ Greater Saphenous Vein Graft 5. Radiologic Supervision with Interpretation Anesthesia: GETA Surgeon: JOSE ANGEL JEREZ Language Teacher: KIYA HERNANDEZ Estimated blood loss: other (2000 mL) Pathology: none (left common femoral and external iliac plaque) Specimen disposition: to lab Condition: stable Disposition: PACU Operative Report Operative Report: Date of Procedure: 06/16/2016 Pre-operative Diagnosis: PVD with Left Foot Rest Pain Post-operative Diagnosis: Same Procedure(s): 1. Left Common Femoral and Distal External Iliac Endarterectomy 2. Left External Iliac Angioplasty and Stent with 7 x 10 cm and 7 x 5 cm Viabahn Stent Grafts and 7 x 40 Balloon 3. Left SFA Remote Endarterectomy 4. Left Femoral Artery to Popliteal Artery Bypass with In Situ Greater Saphenous Vein Graft 5. Radiologic Supervision with Interpretation Surgeon: Jose Angel Jerez M.D. Language Teacher: Kiya Hernandez M.D. Anesthesia: Gen. endotracheal anesthesia EBL: 2 L Counts: Correct Complications: None Condition: Critical but stable Findings: Successful stenting of left external iliac artery and patent femoropopliteal bypass with distal signals. Specimen: Left femoral and external iliac plaque sent to pathology. Indication: The patient is a 55-year-old female with a history of peripheral vascular disease and previous endovascular intervention who presented with rest pain and KYLAH 0.2 and evidence of occlusive disease in her external iliac artery as well as the common femoral artery and superficial femoral artery. She is set up for revascularization. She was given the risk, benefits, and alternative procedures and consented to procedure. Operative Report Operative Report: EXAM: 1. Ultrasound-guided puncture of the right common femoral vein 2. Placement of a right common femoral vein nontunneled noncuffed catheter. DATE: 06/20/16 INDICATION: Cardiac arrest requiring TLC catheter. MEDICATIONS: Local anesthetic (1% lidocaine). REIMBURSEMENT REPRESENTATIVE: LUI MCCABE MD DEVICES: 7F triple lumen nontunneled noncuffed catheter CONTRAST: None PROCEDURE: The risks, benefits, and alternatives were discussed and informed consent was obtained. The patient's right common femoral vein was assessed with ultrasound at bedside and determined to be patent prior to procedure. The patient was prepped and draped in a sterile fashion. The puncture site was anesthetized. Under sonographic guidance, the right common femoral vein was punctured with a 18-gauge micropuncture needle and a 0.035 inch wire was advanced through the needle. Over the 0.035 inch wire, dilatation was performed. The catheter was advanced over the wire. 2-0 silk suture was used to secure the catheter. The catheter was charged with saline. Biopatch and tegaderm were applied. FINDINGS: 1. Ultrasound documented patency of the right common femoral vein. The vessel was accessed under direct ultrasound guidance. IMPRESSION: 1. Successful ultrasound guided bedside placement of a right common femoral vein nontunneled noncuffed triple lumen catheter. Date: 06/27/16 14:55 Initialization Date: 06/27/16 14:55 Pre-op diagnosis: hydro Post-op diagnosis: same Procedure: cysto, bilat stent Anesthesia: local Pathology: list (cystology) Condition: stable Disposition: PACU Hospital course: Patient presented to the hospital with an ischemic left lower extremity in preparation for a attempt at percutaneous revascularization of her left lower extremity. This is unsuccessful and therefore the patient was admitted in preparation for bypass. This was performed without complication. Unfortunately the bypass thrombosed, and she was taken back for percutaneous thrombectomy. The graft was able to be opened up. The patient's pain resolved. Postoperative transferred back to the intensive care unit. She became hypotensive and subsequently coded. This felt to be related to acute blood loss from her multiple procedures, and a GI bleed. Patient was intubated and subsequently resuscitated. Nephrology was consulted for acute on chronic kidney disease. Her kidney function slowly improved throughout the hospitalization. She is evaluated for acute rehabilitation, and found to be appropriate candidate. As patient medical stabilized, she was converted from intravenous anticoagulation to oral. Patient will be transferred to the acute rehabilitation facility once all the regions have been finalized. Disposition: DC/TX INPT REHAB FACILITY - Discharge Diagnoses (1) Atherosclerosis of [place] arteries of extremity with intermittent claudication Status: Acute Core Measure Documentation - Palliative Care Palliative Care/ Comfort Measures: Not Applicable - Core Measures Any of the following diagnoses?: none Exam - Constitutional Vitals: Temp Pulse Resp BP Pulse Ox 98 F 88 18 144/70 97 07/01/16 16:30 07/01/16 16:30 07/01/16 16:30 07/01/16 16:30 07/01/16 07:30 General appearance: Present: no acute distress - EENT Eyes: Present: EOM intact ENT: hearing intact - Neck Neck: Present: supple - Respiratory Respiratory effort: normal - Extremities Extremities: no ischemia (both legs are warm and appear to be adequately perfused.) Extremity abnormal: pulses diminished (bilaterally) - Psychiatric Psychiatric: appropriate mood/affect, cooperative - Neurologic Neurologic: other (decreased motor and sensory function on the right) Plan Activity: advance as tolerated Weight Bearing Status: Weight Bear as Tolerated Diet: diabetic Wound: keep clean and dry Follow up with: VERONICA MACHADO MD [Primary Care Provider] - 7 Days JOSE ANGEL JEREZ MD [Staff Physician] - 7 Days SOFIA MAI MD [Staff Physician] - 7 Days ANA MACIAS MD [Staff Physician] - 7 Days SYLVIE WARD MD [Staff Physician] - 7 Days GERALDINE GONSALES MD [Staff Physician] - 7 Days
--- NOTE | 2016-07-01 20:43 | Progress Note ---
Assessment and Plan Patient awake,following commands.No acute respiratory distress.Patient presently on room air. O2 satuaration 97%. - Patient Problems (1) Acute respiratory failure Current Visit: Yes Status: Acute Plan to address problem: Patient presently undergoing spontaneous breathing trials. Pressure support 10 cm H20 and FIO2 30%. 06/27/16 Respiratory status improved. No acute respiratory distress. On room air . O2 satuaration 100%. 06/30/16 Patient is on room air. No respiratory distress. O2 satuaration 97%. (2) Cardiopulmonary arrest with successful resuscitation Current Visit: Yes Status: Acute Plan to address problem: Patient resuciated . Patient is on mechanical ventilation and vasopressors. 06/27/16 Improved. alert,awake following commands. !08/31/15 Patient alert,awake and following commands. (3) Left lower lobe pneumonia Current Visit: Yes Status: Acute Plan to address problem: Patient running low grade temp. Patient has leukocytosis. Chest xray showing left lower lobe infiltrate, Obtaining blood cultures Tracheal aspirate for gram stain and C&S. Urin for U/A C&S. Starting on Zosyn. 06/27/16 Patient afebrile Repeating chest xray. 06/30/16 Repeat chest xray reported increased left pleural effusion. Obtaining ultrasound of chest. (4) Atherosclerosis of [place] arteries of extremity with intermittent claudication Current Visit: Yes Status: Acute Plan to address problem: Management as per vascular surgery. (5) Metabolic acidosis Current Visit: Yes Status: Acute Plan to address problem: Obtaining Lactate level. Given I/V Bicarb. 06/27/16 Improving. 06/30/16 Metabolic acidosis improved. (6) ATN (acute tubular necrosis) Current Visit: Yes Status: Acute Plan to address problem: Nephrology consulted. Management as per nephrology. Subjective Date of service: 07/01/16 Principal diagnosis: Acute Hypoxemic Respiratory Failure; s/p cardiopulmonary arrest Interval history: Patient awake,following commands.No acute respiratory distress.Patient presently on room air. O2 satuaration 97%. Objective Vital Signs - 12hr 07/01/16 16:30 Temperature 98 F Pulse Rate [ 88 Apical] Respiratory 18 Rate Blood Pressure 144/70 [Left Arm] Constitutional: no acute distress, alert Eyes: non-icteric ENT: oropharynx moist Neck: supple, no lymphadenopathy Effort: normal Ascultation: Bilateral: diminished breath sounds, rhonchi (posterior bases) Cardiovascular: regular rate and rhythm Gastrointestinal: normoactive bowel sounds, soft, non-tender, non-distended Integumentary: other (weak LLExt) Extremities: no cyanosis, edema, other (LLExt pulses diminished but leg warm) Neurologic: normal mental status, non-focal exam, pupils equal and round, motor strength normal and Psychiatric: mood appropriate, affect normal CBC and BMP: 07/01/16 07:44 07/01/16 07:44 ABG, PT/INR, D-dimer: ABG POC ABG pH 7.461 (7.35-7.45) H 06/28/16 14:14 POC ABG pCO2 31.9 (35-45) L 06/28/16 14:14 POC ABG pO2 73 (80-105) L 06/28/16 14:14 POC ABG HCO3 22.8 06/28/16 14:14 POC ABG Total CO2 24 06/28/16 14:14 POC ABG O2 Sat 96 06/28/16 14:14 PT/INR, D-dimer PT 19.9 Sec. (12.2-14.9) H 06/26/16 22:57 INR 1.69 (0.87-1.13) H 06/26/16 22:57 Abnormal lab findings: Abnormal Labs 06/13/16 06/13/16 06/13/16 09:45 09:45 09:45 WBC RBC Hgb POC Hgb Hct POC Hct MCH 25 L MCHC RDW 15.8 H Plt Count Lymph % (Auto) [place] % (Auto) 8.1 H Lymph # [place] # Seg Neutrophils % Seg Neuts % (Manual) Lymphocytes % (Manual) Monocytes % (Manual) Nucleated RBC % Seg Neutrophils # Seg Neutrophils # Man Lymphocytes # (Manual) Monocytes # (Manual) PT INR APTT Fibrinogen 522 H Heparin Anti-Xa Level POC ABG pH POC ABG pCO2 POC ABG pO2 POC Potassium POC Chloride Sodium Potassium Chloride Carbon Dioxide POC BUN BUN Creatinine Glucose POC Glucose Calcium 10.3 H Magnesium Crossmatch 06/13/16 06/13/16 06/13/16 09:45 20:14 20:15 WBC RBC Hgb POC Hgb Hct POC Hct MCH MCHC RDW Plt Count Lymph % (Auto) [place] % (Auto) Lymph # [place] # Seg Neutrophils % Seg Neuts % (Manual) Lymphocytes % (Manual) Monocytes % (Manual) Nucleated RBC % Seg Neutrophils # Seg Neutrophils # Man Lymphocytes # (Manual) Monocytes # (Manual) PT INR APTT 103.8 H* Fibrinogen Heparin Anti-Xa Level 0.72 H POC ABG pH POC ABG pCO2 POC ABG pO2 POC Potassium POC Chloride Sodium Potassium Chloride Carbon Dioxide POC BUN BUN Creatinine Glucose POC Glucose Calcium Magnesium Crossmatch See Detail 06/14/16 06/14/16 06/14/16 07:44 10:18 19:09 WBC RBC Hgb POC Hgb Hct POC Hct MCH 26 L MCHC RDW 15.8 H Plt Count Lymph % (Auto) [place] % (Auto) 9.1 H Lymph # [place] # Seg Neutrophils % Seg Neuts % (Manual) Lymphocytes % (Manual) Monocytes % (Manual) Nucleated RBC % Seg Neutrophils # Seg Neutrophils # Man Lymphocytes # (Manual) Monocytes # (Manual) PT INR APTT Fibrinogen Heparin Anti-Xa Level 0.76 H POC ABG pH POC ABG pCO2 POC ABG pO2 POC Potassium POC Chloride Sodium Potassium Chloride Carbon Dioxide POC BUN BUN Creatinine Glucose POC Glucose 106 H Calcium Magnesium Crossmatch 06/15/16 06/15/16 06/15/16 04:43 04:43 22:49 WBC RBC Hgb 9.2 L POC Hgb Hct 28.4 L POC Hct MCH MCHC RDW Plt Count Lymph % (Auto) [place] % (Auto) Lymph # [place] # Seg Neutrophils % Seg Neuts % (Manual) Lymphocytes % (Manual) Monocytes % (Manual) Nucleated RBC % Seg Neutrophils # Seg Neutrophils # Man Lymphocytes # (Manual) Monocytes # (Manual) PT INR APTT Fibrinogen Heparin Anti-Xa Level 0.85 H POC ABG pH POC ABG pCO2 POC ABG pO2 POC Potassium POC Chloride Sodium Potassium Chloride Carbon Dioxide POC BUN BUN Creatinine Glucose POC Glucose 134 H Calcium Magnesium Crossmatch 06/16/16 06/16/16 06/16/16 08:55 08:55 14:21 WBC RBC Hgb POC Hgb 5.8 L Hct POC Hct 17 L MCH MCHC RDW Plt Count Lymph % (Auto) [place] % (Auto) Lymph # [place] # Seg Neutrophils % Seg Neuts % (Manual) Lymphocytes % (Manual) Monocytes % (Manual) Nucleated RBC % Seg Neutrophils # Seg Neutrophils # Man Lymphocytes # (Manual) Monocytes # (Manual) PT INR APTT 20.0 L Fibrinogen Heparin Anti-Xa Level POC ABG pH POC ABG pCO2 POC ABG pO2 POC Potassium 2.9 L POC Chloride Sodium Potassium Chloride Carbon Dioxide POC BUN 7 L BUN Creatinine Glucose POC Glucose 249 H Calcium Magnesium Crossmatch See Detail 06/16/16 06/16/16 06/16/16 16:55 17:41 17:48 WBC RBC Hgb POC Hgb 8.8 L Hct POC Hct 26 L < 15 L MCH MCHC RDW Plt Count Lymph % (Auto) [place] % (Auto) Lymph # [place] # Seg Neutrophils % Seg Neuts % (Manual) Lymphocytes % (Manual) Monocytes % (Manual) Nucleated RBC % Seg Neutrophils # Seg Neutrophils # Man Lymphocytes # (Manual) Monocytes # (Manual) PT INR APTT Fibrinogen Heparin Anti-Xa Level POC ABG pH 7.031 L POC ABG pCO2 POC ABG pO2 475 H POC Potassium 3.2 L POC Chloride 112 H 114 H Sodium Potassium Chloride Carbon Dioxide POC BUN 7 L 7 L BUN Creatinine Glucose POC Glucose 203 H 291 H Calcium Magnesium Crossmatch 06/16/16 06/16/16 06/16/16 18:07 19:09 20:10 WBC 15.8 H RBC Hgb POC Hgb 6.5 L Hct POC Hct 19 L MCH MCHC RDW Plt Count 38 L Lymph % (Auto) 5.9 L [place] % (Auto) 9.3 H Lymph # 0.9 L [place] # 1.5 H Seg Neutrophils % 84.6 H Seg Neuts % (Manual) Lymphocytes % (Manual) Monocytes % (Manual) Nucleated RBC % Seg Neutrophils # 13.3 H Seg Neutrophils # Man Lymphocytes # (Manual) Monocytes # (Manual) PT INR APTT Fibrinogen Heparin Anti-Xa Level POC ABG pH POC ABG pCO2 POC ABG pO2 POC Potassium POC Chloride 113 H Sodium Potassium Chloride Carbon Dioxide POC BUN 7 L BUN Creatinine Glucose POC Glucose 263 H 231 H Calcium Magnesium Crossmatch 06/16/16 06/16/16 06/16/16 20:10 20:18 21:10 WBC RBC Hgb POC Hgb Hct POC Hct MCH MCHC RDW Plt Count Lymph % (Auto) [place] % (Auto) Lymph # [place] # Seg Neutrophils % Seg Neuts % (Manual) Lymphocytes % (Manual) Monocytes % (Manual) Nucleated RBC % Seg Neutrophils # Seg Neutrophils # Man Lymphocytes # (Manual) Monocytes # (Manual) PT INR APTT Fibrinogen Heparin Anti-Xa Level POC ABG pH 7.236 L 7.280 L POC ABG pCO2 POC ABG pO2 139 H 145 H POC Potassium POC Chloride Sodium Potassium 3.4 L Chloride 114.5 H Carbon Dioxide 17 L D POC BUN BUN Creatinine Glucose 188 H POC Glucose Calcium 6.1 L D Magnesium Crossmatch 06/16/16 06/17/16 06/17/16 22:53 04:48 05:35 WBC RBC Hgb POC Hgb Hct POC Hct MCH MCHC RDW Plt Count Lymph % (Auto) [place] % (Auto) Lymph # [place] # Seg Neutrophils % Seg Neuts % (Manual) Lymphocytes % (Manual) Monocytes % (Manual) Nucleated RBC % Seg Neutrophils # Seg Neutrophils # Man Lymphocytes # (Manual) Monocytes # (Manual) PT INR APTT Fibrinogen Heparin Anti-Xa Level POC ABG pH POC ABG pCO2 33.9 L 22.2 L POC ABG pO2 152 H 154 H POC Potassium POC Chloride Sodium 150 H Potassium 3.4 L Chloride 114.2 H Carbon Dioxide 16 L POC BUN BUN Creatinine Glucose 221 H POC Glucose Calcium 7.6 L D Magnesium Crossmatch 06/17/16 06/18/16 06/18/16 09:22 07:26 08:25 WBC 20.3 H RBC 3.41 L Hgb 9.9 L POC Hgb Hct 29.7 L POC Hct MCH MCHC RDW Plt Count Lymph % (Auto) [place] % (Auto) Lymph # [place] # Seg Neutrophils % Seg Neuts % (Manual) 81.0 H Lymphocytes % (Manual) 6.0 L Monocytes % (Manual) 12.0 H Nucleated RBC % Seg Neutrophils # Seg Neutrophils # Man 16.4 H Lymphocytes # (Manual) Monocytes # (Manual) 2.4 H PT INR APTT Fibrinogen Heparin Anti-Xa Level POC ABG pH POC ABG pCO2 POC ABG pO2 POC Potassium POC Chloride Sodium Potassium 3.1 L Chloride Carbon Dioxide POC BUN BUN Creatinine Glucose 136 H POC Glucose 141 H Calcium 7.5 L Magnesium Crossmatch 06/18/16 06/18/16 06/18/16 08:25 11:09 19:40 WBC RBC Hgb 6.5 L D POC Hgb Hct 19.3 L* D POC Hct MCH MCHC RDW Plt Count 131 L Lymph % (Auto) [place] % (Auto) Lymph # [place] # Seg Neutrophils % Seg Neuts % (Manual) Lymphocytes % (Manual) Monocytes % (Manual) Nucleated RBC % Seg Neutrophils # Seg Neutrophils # Man Lymphocytes # (Manual) Monocytes # (Manual) PT INR APTT Fibrinogen Heparin Anti-Xa Level POC ABG pH 7.490 H POC ABG pCO2 POC ABG pO2 131 H POC Potassium POC Chloride Sodium Potassium Chloride Carbon Dioxide POC BUN BUN Creatinine Glucose POC Glucose 125 H Calcium Magnesium Crossmatch 06/18/16 06/19/16 06/19/16 21:10 07:07 07:28 WBC 13.6 H RBC 2.17 L Hgb 6.5 L POC Hgb Hct 18.8 L* POC Hct MCH MCHC 35 H RDW Plt Count 131 L Lymph % (Auto) 10.1 L [place] % (Auto) 9.3 H Lymph # [place] # 1.3 H Seg Neutrophils % 79.7 H Seg Neuts % (Manual) Lymphocytes % (Manual) Monocytes % (Manual) Nucleated RBC % Seg Neutrophils # 10.8 H Seg Neutrophils # Man Lymphocytes # (Manual) Monocytes # (Manual) PT INR APTT Fibrinogen Heparin Anti-Xa Level 0.75 H POC ABG pH POC ABG pCO2 POC ABG pO2 POC Potassium POC Chloride Sodium Potassium 3.5 L Chloride Carbon Dioxide POC BUN BUN Creatinine Glucose 104 H POC Glucose Calcium 7.6 L Magnesium 1.4 L Crossmatch 06/20/16 06/20/16 06/20/16 04:15 18:15 18:15 WBC 16.6 H RBC 1.19 L Hgb 9.2 L 3.5 L* D POC Hgb Hct 27.5 L D 11.0 L* D POC Hct MCH MCHC RDW Plt Count 138 L Lymph % (Auto) [place] % (Auto) Lymph # [place] # Seg Neutrophils % Seg Neuts % (Manual) Lymphocytes % (Manual) Monocytes % (Manual) Nucleated RBC % Seg Neutrophils # Seg Neutrophils # Man Lymphocytes # (Manual) Monocytes # (Manual) PT INR APTT Fibrinogen Heparin Anti-Xa Level POC ABG pH POC ABG pCO2 POC ABG pO2 POC Potassium POC Chloride Sodium 146 H Potassium Chloride Carbon Dioxide 14 L D POC BUN BUN Creatinine Glucose 31 L* POC Glucose Calcium 6.7 L Magnesium Crossmatch 06/20/16 06/20/16 06/20/16 18:15 19:33 19:36 WBC RBC Hgb POC Hgb Hct POC Hct MCH MCHC RDW Plt Count Lymph % (Auto) [place] % (Auto) Lymph # [place] # Seg Neutrophils % Seg Neuts % (Manual) Lymphocytes % (Manual) Monocytes % (Manual) Nucleated RBC % Seg Neutrophils # Seg Neutrophils # Man Lymphocytes # (Manual) Monocytes # (Manual) PT INR APTT Fibrinogen Heparin Anti-Xa Level POC ABG pH POC ABG pCO2 26.3 L POC ABG pO2 394 H POC Potassium POC Chloride Sodium Potassium Chloride Carbon Dioxide POC BUN BUN Creatinine Glucose POC Glucose 212 H Calcium Magnesium Crossmatch See Detail 06/20/16 06/20/16 06/21/16 22:01 23:00 00:35 WBC RBC Hgb POC Hgb Hct POC Hct MCH MCHC RDW Plt Count Lymph % (Auto) [place] % (Auto) Lymph # [place] # Seg Neutrophils % Seg Neuts % (Manual) Lymphocytes % (Manual) Monocytes % (Manual) Nucleated RBC % Seg Neutrophils # Seg Neutrophils # Man Lymphocytes # (Manual) Monocytes # (Manual) PT 21.3 H INR 1.85 H APTT 48.4 H Fibrinogen Heparin Anti-Xa Level POC ABG pH POC ABG pCO2 POC ABG pO2 POC Potassium POC Chloride Sodium Potassium Chloride Carbon Dioxide POC BUN BUN Creatinine Glucose POC Glucose 149 H 147 H Calcium Magnesium Crossmatch 06/21/16 06/21/16 06/21/16 04:30 04:30 06:01 WBC 21.7 H RBC 3.58 L Hgb POC Hgb Hct POC Hct MCH MCHC 35 H RDW Plt Count 116 L Lymph % (Auto) [place] % (Auto) Lymph # [place] # Seg Neutrophils % Seg Neuts % (Manual) Lymphocytes % (Manual) 8.0 L Monocytes % (Manual) Nucleated RBC % 3.0 H Seg Neutrophils # Seg Neutrophils # Man 13.7 H Lymphocytes # (Manual) Monocytes # (Manual) 1.5 H PT INR APTT Fibrinogen Heparin Anti-Xa Level POC ABG pH 7.541 H POC ABG pCO2 21.1 L POC ABG pO2 108 H POC Potassium POC Chloride Sodium Potassium 3.0 L Chloride 110.3 H Carbon Dioxide 18 L POC BUN BUN 18 H Creatinine Glucose 141 H POC Glucose Calcium 6.4 L Magnesium Crossmatch 06/21/16 06/21/16 06/21/16 07:00 10:02 17:51 WBC RBC Hgb 8.3 L POC Hgb Hct 24.7 L D POC Hct MCH MCHC RDW Plt Count Lymph % (Auto) [place] % (Auto) Lymph # [place] # Seg Neutrophils % Seg Neuts % (Manual) Lymphocytes % (Manual) Monocytes % (Manual) Nucleated RBC % Seg Neutrophils # Seg Neutrophils # Man Lymphocytes # (Manual) Monocytes # (Manual) PT INR APTT Fibrinogen Heparin Anti-Xa Level POC ABG pH POC ABG pCO2 POC ABG pO2 POC Potassium POC Chloride Sodium Potassium Chloride Carbon Dioxide POC BUN BUN Creatinine Glucose POC Glucose 132 H 106 H Calcium Magnesium Crossmatch 06/22/16 06/22/16 06/22/16 05:00 05:00 06:40 WBC 20.6 H RBC 3.54 L Hgb POC Hgb Hct POC Hct MCH MCHC RDW Plt Count 129 L Lymph % (Auto) [place] % (Auto) Lymph # [place] # Seg Neutrophils % Seg Neuts % (Manual) 87.0 H Lymphocytes % (Manual) 4.0 L Monocytes % (Manual) Nucleated RBC % 4.0 H Seg Neutrophils # Seg Neutrophils # Man 17.9 H Lymphocytes # (Manual) 0.8 L Monocytes # (Manual) 1.2 H PT INR APTT Fibrinogen Heparin Anti-Xa Level POC ABG pH POC ABG pCO2 21.9 L POC ABG pO2 118 H POC Potassium POC Chloride Sodium Potassium Chloride 109.9 H Carbon Dioxide 15 L POC BUN BUN 26 H Creatinine 2.2 H D Glucose POC Glucose Calcium 6.3 L Magnesium Crossmatch 06/22/16 06/22/16 06/22/16 09:15 09:15 23:17 WBC RBC Hgb 9.1 L POC Hgb Hct 26.9 L POC Hct MCH MCHC RDW Plt Count 116 L Lymph % (Auto) [place] % (Auto) Lymph # [place] # Seg Neutrophils % Seg Neuts % (Manual) Lymphocytes % (Manual) Monocytes % (Manual) Nucleated RBC % Seg Neutrophils # Seg Neutrophils # Man Lymphocytes # (Manual) Monocytes # (Manual) PT 15.8 H INR 1.27 H APTT Fibrinogen Heparin Anti-Xa Level POC ABG pH POC ABG pCO2 POC ABG pO2 POC Potassium POC Chloride Sodium Potassium Chloride Carbon Dioxide POC BUN BUN Creatinine Glucose POC Glucose 134 H Calcium Magnesium Crossmatch 06/23/16 06/23/16 06/23/16 05:43 05:43 09:44 WBC 13.8 H RBC 2.70 L Hgb 8.1 L POC Hgb Hct 24.2 L POC Hct MCH MCHC RDW Plt Count 93 L Lymph % (Auto) 6.2 L [place] % (Auto) Lymph # 0.9 L [place] # Seg Neutrophils % 89.2 H Seg Neuts % (Manual) Lymphocytes % (Manual) Monocytes % (Manual) Nucleated RBC % Seg Neutrophils # 12.3 H Seg Neutrophils # Man Lymphocytes # (Manual) Monocytes # (Manual) PT INR APTT Fibrinogen Heparin Anti-Xa Level POC ABG pH 7.593 H POC ABG pCO2 26.8 L POC ABG pO2 141 H POC Potassium POC Chloride Sodium 146 H Potassium Chloride Carbon Dioxide POC BUN BUN 32 H Creatinine 2.6 H Glucose 142 H POC Glucose Calcium 7.0 L Magnesium Crossmatch 06/23/16 06/23/16 06/23/16 11:23 17:42 23:32 WBC RBC Hgb POC Hgb Hct POC Hct MCH MCHC RDW Plt Count Lymph % (Auto) [place] % (Auto) Lymph # [place] # Seg Neutrophils % Seg Neuts % (Manual) Lymphocytes % (Manual) Monocytes % (Manual) Nucleated RBC % Seg Neutrophils # Seg Neutrophils # Man Lymphocytes # (Manual) Monocytes # (Manual) PT INR APTT Fibrinogen Heparin Anti-Xa Level POC ABG pH POC ABG pCO2 POC ABG pO2 POC Potassium POC Chloride Sodium Potassium Chloride Carbon Dioxide POC BUN BUN Creatinine Glucose POC Glucose 138 H 133 H 111 H Calcium Magnesium Crossmatch 06/24/16 06/24/16 06/24/16 06:27 08:10 08:10 WBC 16.6 H RBC 2.91 L Hgb 8.9 L POC Hgb Hct 26.4 L POC Hct MCH MCHC RDW 15.6 H Plt Count 115 L Lymph % (Auto) 4.6 L [place] % (Auto) Lymph # 0.8 L [place] # 1.0 H Seg Neutrophils % 89.2 H Seg Neuts % (Manual) Lymphocytes % (Manual) Monocytes % (Manual) Nucleated RBC % Seg Neutrophils # 14.9 H Seg Neutrophils # Man Lymphocytes # (Manual) Monocytes # (Manual) PT INR APTT Fibrinogen Heparin Anti-Xa Level POC ABG pH POC ABG pCO2 POC ABG pO2 POC Potassium POC Chloride Sodium 146 H Potassium Chloride Carbon Dioxide POC BUN BUN 37 H Creatinine 2.9 H Glucose POC Glucose 109 H Calcium 7.5 L Magnesium Crossmatch 06/24/16 06/24/16 06/24/16 12:05 17:57 22:13 WBC RBC Hgb POC Hgb Hct POC Hct MCH MCHC RDW Plt Count Lymph % (Auto) [place] % (Auto) Lymph # [place] # Seg Neutrophils % Seg Neuts % (Manual) Lymphocytes % (Manual) Monocytes % (Manual) Nucleated RBC % Seg Neutrophils # Seg Neutrophils # Man Lymphocytes # (Manual) Monocytes # (Manual) PT INR APTT Fibrinogen Heparin Anti-Xa Level POC ABG pH POC ABG pCO2 POC ABG pO2 POC Potassium POC Chloride Sodium Potassium Chloride Carbon Dioxide POC BUN BUN Creatinine Glucose POC Glucose 117 H 124 H 116 H Calcium Magnesium Crossmatch 06/25/16 06/25/16 06/25/16 06:42 06:49 12:14 WBC RBC Hgb POC Hgb Hct POC Hct MCH MCHC RDW Plt Count Lymph % (Auto) [place] % (Auto) Lymph # [place] # Seg Neutrophils % Seg Neuts % (Manual) Lymphocytes % (Manual) Monocytes % (Manual) Nucleated RBC % Seg Neutrophils # Seg Neutrophils # Man Lymphocytes # (Manual) Monocytes # (Manual) PT INR APTT Fibrinogen Heparin Anti-Xa Level POC ABG pH POC ABG pCO2 POC ABG pO2 POC Potassium POC Chloride Sodium Potassium Chloride Carbon Dioxide POC BUN BUN 46 H Creatinine 3.6 H Glucose 133 H POC Glucose 137 H 136 H Calcium 7.4 L Magnesium Crossmatch 06/25/16 06/25/16 06/26/16 16:07 21:32 05:55 WBC RBC Hgb POC Hgb Hct POC Hct MCH MCHC RDW Plt Count Lymph % (Auto) [place] % (Auto) Lymph # [place] # Seg Neutrophils % Seg Neuts % (Manual) Lymphocytes % (Manual) Monocytes % (Manual) Nucleated RBC % Seg Neutrophils # Seg Neutrophils # Man Lymphocytes # (Manual) Monocytes # (Manual) PT INR APTT Fibrinogen Heparin Anti-Xa Level POC ABG pH POC ABG pCO2 POC ABG pO2 POC Potassium POC Chloride Sodium Potassium Chloride Carbon Dioxide 20 L POC BUN BUN 55 H Creatinine 4.2 H Glucose 120 H POC Glucose 146 H 146 H Calcium 7.5 L Magnesium Crossmatch 06/26/16 06/26/16 06/26/16 06:30 11:38 16:45 WBC RBC Hgb POC Hgb Hct POC Hct MCH MCHC RDW Plt Count Lymph % (Auto) [place] % (Auto) Lymph # [place] # Seg Neutrophils % Seg Neuts % (Manual) Lymphocytes % (Manual) Monocytes % (Manual) Nucleated RBC % Seg Neutrophils # Seg Neutrophils # Man Lymphocytes # (Manual) Monocytes # (Manual) PT INR APTT Fibrinogen Heparin Anti-Xa Level POC ABG pH POC ABG pCO2 POC ABG pO2 POC Potassium POC Chloride Sodium Potassium Chloride Carbon Dioxide POC BUN BUN Creatinine Glucose POC Glucose 128 H 143 H 121 H Calcium Magnesium Crossmatch 06/26/16 06/26/16 06/27/16 22:57 22:57 00:47 WBC RBC Hgb 8.4 L POC Hgb Hct 25.1 L POC Hct MCH MCHC RDW Plt Count Lymph % (Auto) [place] % (Auto) Lymph # [place] # Seg Neutrophils % Seg Neuts % (Manual) Lymphocytes % (Manual) Monocytes % (Manual) Nucleated RBC % Seg Neutrophils # Seg Neutrophils # Man Lymphocytes # (Manual) Monocytes # (Manual) PT 19.9 H INR 1.69 H APTT Fibrinogen Heparin Anti-Xa Level POC ABG pH POC ABG pCO2 POC ABG pO2 POC Potassium POC Chloride Sodium Potassium Chloride Carbon Dioxide POC BUN BUN Creatinine Glucose POC Glucose 110 H Calcium Magnesium Crossmatch 06/27/16 06/27/16 06/27/16 05:43 05:43 06:40 WBC RBC Hgb POC Hgb Hct POC Hct MCH MCHC RDW Plt Count Lymph % (Auto) [place] % (Auto) Lymph # [place] # Seg Neutrophils % Seg Neuts % (Manual) Lymphocytes % (Manual) Monocytes % (Manual) Nucleated RBC % Seg Neutrophils # Seg Neutrophils # Man Lymphocytes # (Manual) Monocytes # (Manual) PT INR APTT Fibrinogen Heparin Anti-Xa Level 2.00 H POC ABG pH POC ABG pCO2 POC ABG pO2 POC Potassium POC Chloride Sodium Potassium Chloride Carbon Dioxide 20 L POC BUN BUN 58 H Creatinine 4.8 H Glucose POC Glucose 109 H Calcium 8.1 L Magnesium Crossmatch 06/27/16 06/27/16 06/27/16 08:15 16:46 17:47 WBC RBC Hgb POC Hgb Hct POC Hct MCH MCHC RDW Plt Count Lymph % (Auto) [place] % (Auto) Lymph # [place] # Seg Neutrophils % Seg Neuts % (Manual) Lymphocytes % (Manual) Monocytes % (Manual) Nucleated RBC % Seg Neutrophils # Seg Neutrophils # Man Lymphocytes # (Manual) Monocytes # (Manual) PT INR APTT Fibrinogen Heparin Anti-Xa Level > 2.00 H 1.87 H POC ABG pH POC ABG pCO2 POC ABG pO2 POC Potassium POC Chloride Sodium Potassium Chloride Carbon Dioxide POC BUN BUN Creatinine Glucose POC Glucose 231 H Calcium Magnesium Crossmatch 06/27/16 06/27/16 06/28/16 21:23 23:54 06:27 WBC RBC Hgb POC Hgb Hct POC Hct MCH MCHC RDW Plt Count Lymph % (Auto) [place] % (Auto) Lymph # [place] # Seg Neutrophils % Seg Neuts % (Manual) Lymphocytes % (Manual) Monocytes % (Manual) Nucleated RBC % Seg Neutrophils # Seg Neutrophils # Man Lymphocytes # (Manual) Monocytes # (Manual) PT INR APTT Fibrinogen Heparin Anti-Xa Level 1.70 H POC ABG pH POC ABG pCO2 POC ABG pO2 POC Potassium POC Chloride Sodium Potassium Chloride Carbon Dioxide POC BUN BUN 62 H Creatinine 4.5 H Glucose 111 H POC Glucose 122 H Calcium 8.3 L Magnesium Crossmatch 06/28/16 06/28/16 06/28/16 06:27 11:47 14:14 WBC RBC Hgb 7.7 L POC Hgb Hct 22.9 L POC Hct MCH MCHC RDW Plt Count Lymph % (Auto) [place] % (Auto) Lymph # [place] # Seg Neutrophils % Seg Neuts % (Manual) Lymphocytes % (Manual) Monocytes % (Manual) Nucleated RBC % Seg Neutrophils # Seg Neutrophils # Man Lymphocytes # (Manual) Monocytes # (Manual) PT INR APTT Fibrinogen Heparin Anti-Xa Level POC ABG pH 7.461 H POC ABG pCO2 31.9 L POC ABG pO2 73 L POC Potassium POC Chloride Sodium Potassium Chloride Carbon Dioxide POC BUN BUN Creatinine Glucose POC Glucose 155 H Calcium Magnesium Crossmatch 06/28/16 06/28/16 06/28/16 16:27 20:47 22:59 WBC RBC Hgb POC Hgb Hct POC Hct MCH MCHC RDW Plt Count Lymph % (Auto) [place] % (Auto) Lymph # [place] # Seg Neutrophils % Seg Neuts % (Manual) Lymphocytes % (Manual) Monocytes % (Manual) Nucleated RBC % Seg Neutrophils # Seg Neutrophils # Man Lymphocytes # (Manual) Monocytes # (Manual) PT INR APTT Fibrinogen Heparin Anti-Xa Level 1.16 H POC ABG pH POC ABG pCO2 POC ABG pO2 POC Potassium POC Chloride Sodium Potassium Chloride Carbon Dioxide POC BUN BUN Creatinine Glucose POC Glucose 193 H 126 H Calcium Magnesium Crossmatch 06/29/16 06/29/16 06/29/16 05:51 09:10 09:10 WBC RBC Hgb POC Hgb Hct POC Hct MCH MCHC RDW Plt Count Lymph % (Auto) [place] % (Auto) Lymph # [place] # Seg Neutrophils % Seg Neuts % (Manual) Lymphocytes % (Manual) Monocytes % (Manual) Nucleated RBC % Seg Neutrophils # Seg Neutrophils # Man Lymphocytes # (Manual) Monocytes # (Manual) PT INR APTT Fibrinogen Heparin Anti-Xa Level 0.92 H POC ABG pH POC ABG pCO2 POC ABG pO2 POC Potassium POC Chloride Sodium Potassium Chloride Carbon Dioxide POC BUN BUN 53 H Creatinine 3.7 H Glucose 139 H POC Glucose 121 H Calcium 8.2 L Magnesium Crossmatch 06/29/16 06/30/16 06/30/16 21:22 05:09 08:07 WBC RBC Hgb 7.3 L POC Hgb Hct 21.9 L POC Hct MCH MCHC RDW Plt Count Lymph % (Auto) [place] % (Auto) Lymph # [place] # Seg Neutrophils % Seg Neuts % (Manual) Lymphocytes % (Manual) Monocytes % (Manual) Nucleated RBC % Seg Neutrophils # Seg Neutrophils # Man Lymphocytes # (Manual) Monocytes # (Manual) PT INR APTT Fibrinogen Heparin Anti-Xa Level POC ABG pH POC ABG pCO2 POC ABG pO2 POC Potassium POC Chloride Sodium Potassium Chloride Carbon Dioxide POC BUN BUN Creatinine Glucose POC Glucose 108 H 106 H Calcium Magnesium Crossmatch 06/30/16 06/30/16 06/30/16 10:48 12:13 16:48 WBC RBC Hgb POC Hgb Hct POC Hct MCH MCHC RDW Plt Count Lymph % (Auto) [place] % (Auto) Lymph # [place] # Seg Neutrophils % Seg Neuts % (Manual) Lymphocytes % (Manual) Monocytes % (Manual) Nucleated RBC % Seg Neutrophils # Seg Neutrophils # Man Lymphocytes # (Manual) Monocytes # (Manual) PT INR APTT Fibrinogen Heparin Anti-Xa Level POC ABG pH POC ABG pCO2 POC ABG pO2 POC Potassium POC Chloride Sodium Potassium Chloride Carbon Dioxide POC BUN BUN 46 H Creatinine 3.0 H Glucose POC Glucose 153 H 152 H Calcium Magnesium Crossmatch 06/30/16 07/01/16 07/01/16 21:47 05:47 07:44 WBC 19.8 H RBC 2.45 L Hgb 7.2 L POC Hgb Hct 22.2 L POC Hct MCH MCHC RDW Plt Count 481 H Lymph % (Auto) 5.5 L [place] % (Auto) Lymph # 1.1 L [place] # 1.4 H Seg Neutrophils % 86.8 H Seg Neuts % (Manual) Lymphocytes % (Manual) Monocytes % (Manual) Nucleated RBC % Seg Neutrophils # 17.1 H Seg Neutrophils # Man Lymphocytes # (Manual) Monocytes # (Manual) PT INR APTT Fibrinogen Heparin Anti-Xa Level POC ABG pH POC ABG pCO2 POC ABG pO2 POC Potassium POC Chloride Sodium Potassium Chloride Carbon Dioxide POC BUN BUN Creatinine Glucose POC Glucose 162 H 124 H Calcium Magnesium Crossmatch 07/01/16 07/01/16 07/01/16 07:44 11:55 16:16 WBC RBC Hgb POC Hgb Hct POC Hct MCH MCHC RDW Plt Count Lymph % (Auto) [place] % (Auto) Lymph # [place] # Seg Neutrophils % Seg Neuts % (Manual) Lymphocytes % (Manual) Monocytes % (Manual) Nucleated RBC % Seg Neutrophils # Seg Neutrophils # Man Lymphocytes # (Manual) Monocytes # (Manual) PT INR APTT Fibrinogen Heparin Anti-Xa Level POC ABG pH POC ABG pCO2 POC ABG pO2 POC Potassium POC Chloride Sodium Potassium 3.1 L Chloride Carbon Dioxide POC BUN BUN 38 H Creatinine 2.2 H Glucose 114 H POC Glucose 114 H 143 H Calcium Magnesium Crossmatch
[2016-07-02 07:18] LABS: Eosinophils % (Auto) 0.7 % (0.0-4.3); Hematocrit 21.8 % (30.3-42.9); Hemoglobin 7.3 gm/dl (10.1-14.3); Mean Corpuscular HGB Conc 34 % (30-34); Mean Corpuscular Hemoglobin 30 pg (28-32); Mean Corpuscular Volume 89 fl (79-97); Platelet Count 490 K/mm3 (140-440); Red Blood Count 2.45 M/mm3 (3.65-5.03); Red Cell Distribution Width 15.2 % (13.2-15.2); White Blood Count 18.1 K/mm3 (4.5-11.0)
[2016-07-02 07:41] LABS: BUN/Creatinine Ratio 16.66; Calcium 8.1 mg/dL (8.4-10.2); Chloride 99.8 mmol/L (98-107)
[2016-07-02 07:50] LABS: Potassium 2.8 mmol/L (3.6-5.0)
--- NOTE | 2016-07-02 08:42 | Progress Note ---
Assessment and Plan Impression: * REJI/ATN * Anemia Acute blood loss * Respiratory Failure * PVD * Metabolic acidosis * hypokalemia Plan: * dialy lytes * likely ATN due to cardiac arrest and hypovolumia * cr is improving * replete k/follow up mag levels * no need for SLOT SERVICE SPECIALIST at this point * daily lytes * avoid nephrotoxins * strict i/os Subjective Date of service: 07/02/16 Principal diagnosis: Acute Hypoxemic Respiratory Failure; s/p cardiopulmonary arrest Interval history: resting well in bed today Objective - Exam Narrative Exam: General appearance: no acute distress - EENT Eyes: PERRL, EOM intact ENT: hearing intact, other (ETT tube in mouth) - Neck Neck: supple, normal ROM - Respiratory Respiratory effort: normal Respiratory: bilateral: CTA - Cardiovascular Rhythm: regular Heart Sounds: Present: S1 & S2 Extremities: abnormal (Severe swelling and bruising L thigh; R thigh with femoral catheter and no bleeding) - Gastrointestinal General gastrointestinal: Present: soft, non-tender, non-distended, other (NG tube shows bilious material without blood) - Integumentary Integumentary: Present: clear, warm, dry - Neurologic Neurological: alert and oriented x3 - Vital Signs Vital signs: Vital Signs - 12hr 07/01/16 07/02/16 22:00 01:40 Temperature 97.9 F Pulse Rate [ 102 H From Monitor] Pulse Rate [ 85 Left Radial] Respiratory 18 Rate Blood Pressure 123/59 [Left Arm] O2 Sat by Pulse 100 Oximetry - Lab 07/02/16 06:46 07/02/16 06:46 Most recent lab results Calcium 8.1 mg/dL (8.4-10.2) L 07/02/16 06:46 Magnesium 1.4 mg/dL (1.7-2.3) L 06/19/16 07:28
[2016-07-02] MEDS ORDERED: K-DUR PO ONE (09:00)
[2016-07-02] MEDS ORDERED: MAGNESIUM SULFATE 2GM/50ML 50 ML IV ONE (11:00)
[2016-07-02] MEDS: FEOSOL PO SCH (11:06)
[2016-07-02] MEDS: TENORMIN PO SCH (11:06)
[2016-07-02] MEDS: PLAVIX PO SCH (11:07)
[2016-07-02] MEDS: PROTONIX PO SCH (11:07)
[2016-07-02] MEDS: HALFPRIN EC PO SCH (11:07)
[2016-07-02] MEDS: ELIQUIS PO SCH ×2 (11:08→21:06)
[2016-07-02] MEDS: K-DUR PO SCH (14:02)
--- NOTE | 2016-07-02 14:10 | Event Note ---
Date: 07/02/16 IPR F/U. Pt has been approved for IPR admission; however, admission held due to abnormal labs. Also pending results of Ultrasound of chest. Case discussed with primary team. Will continue to follow; pt continues with functional deficits and remains an appropriate candidate for IPR admission once medical stable.
--- NOTE | 2016-07-02 14:25 | Ultrasound Report ---
ULTRASOUND CHEST: HISTORY: Left pleural effusion. FINDINGS: Targeted grayscale ultrasound was performed on the left side of the chest which demonstrates a moderate left pleural effusion measuring 959 cc. The pleural effusion appears free-flowing and without septation or debris. IMPRESSION: Moderate left pleural effusion, as described.
--- NOTE | 2016-07-02 17:30 | Progress Note ---
Assessment and Plan Following orders for discharge to acute rehabilitation, and ultrasound of the chest was ordered. This revealed a left-sided pleural effusion (proximately 950 mL). The patient's a.m. lab work showed hypokalemia. Nephrology gave orders for potassium and magnesium repletion. Discharge to acute rehabilitation is on hold until cleared medically, by pulmonology and nephrology. - Patient Problems (1) Atherosclerosis of [place] arteries of extremity with intermittent claudication Current Visit: Yes Status: Acute Subjective Date of service: 07/02/16 Principal diagnosis: Acute Hypoxemic Respiratory Failure; s/p cardiopulmonary arrest Interval history: Patient is awake. Emotionally labile. The patient wants to go home. She denies pain at present. Objective - Constitutional Vitals: Vital Signs - 12hr 07/02/16 07/02/16 07/02/16 08:20 08:30 11:06 Temperature 100.3 F H Pulse Rate 103 H Pulse Rate [ 104 H Apical] Pulse Rate [ 88 From Monitor] Pulse Rate [ 84 Right Radial] Respiratory 20 20 Rate Blood Pressure 129/72 Blood Pressure 129/72 [Left Arm] O2 Sat by Pulse 99 100 Oximetry 07/02/16 15:43 Temperature 98.8 F Pulse Rate Pulse Rate [ 99 H Apical] Pulse Rate [ From Monitor] Pulse Rate [ Right Radial] Respiratory 20 Rate Blood Pressure Blood Pressure 126/63 [Left Arm] O2 Sat by Pulse Oximetry General appearance: Present: no acute distress - EENT Eyes: EOM intact ENT: hearing intact - Respiratory Respiratory effort: normal Extremities: normal temperature (both legs were warm and appear to be adequately perfused), abnormal (bandages were scant dried bloody drainage) - Psychiatric Psychiatric: no appropriate mood/affect (patient crying), no intact judgment & insight - Labs CBC & Chem 7: 07/02/16 06:46 07/02/16 06:46 Labs: Abnormal lab results 07/01/16 07/02/16 07/02/16 Range/Units 21:42 05:40 06:46 WBC 18.1 H (4.5-11.0) K/mm3 RBC 2.45 L (3.65-5.03) M/mm3 Hgb 7.3 L (10.1-14.3) gm/dl Hct 21.8 L (30.3-42.9) % Plt Count 490 H (140-440) K/mm3 Lymph % (Auto) 6.1 L (13.4-35.0) % Lymph # 1.1 L (1.2-5.4) K/mm3 [place] # 1.1 H (0.0-0.8) K/mm3 Baso # 0.2 H (0.0-0.1) K/mm3 Seg Neutrophils % 86.0 H (40.0-70.0) % Seg Neutrophils # 15.6 H (1.8-7.7) K/mm3 Potassium (3.6-5.0) mmol/L BUN (7-17) mg/dL Creatinine (0.7-1.2) mg/dL Glucose (65-100) mg/dL POC Glucose 135 H 135 H (70-105) Calcium (8.4-10.2) mg/dL Magnesium (1.7-2.3) mg/dL 07/02/16 07/02/16 07/02/16 Range/Units 06:46 06:49 11:23 WBC (4.5-11.0) K/mm3 RBC (3.65-5.03) M/mm3 Hgb (10.1-14.3) gm/dl Hct (30.3-42.9) % Plt Count (140-440) K/mm3 Lymph % (Auto) (13.4-35.0) % Lymph # (1.2-5.4) K/mm3 [place] # (0.0-0.8) K/mm3 Baso # (0.0-0.1) K/mm3 Seg Neutrophils % (40.0-70.0) % Seg Neutrophils # (1.8-7.7) K/mm3 Potassium 2.8 L* (3.6-5.0) mmol/L BUN 30 H (7-17) mg/dL Creatinine 1.8 H (0.7-1.2) mg/dL Glucose 121 H (65-100) mg/dL POC Glucose 121 H (70-105) Calcium 8.1 L (8.4-10.2) mg/dL Magnesium 1.3 L (1.7-2.3) mg/dL 07/02/16 Range/Units 17:02 WBC (4.5-11.0) K/mm3 RBC (3.65-5.03) M/mm3 Hgb (10.1-14.3) gm/dl Hct (30.3-42.9) % Plt Count (140-440) K/mm3 Lymph % (Auto) (13.4-35.0) % Lymph # (1.2-5.4) K/mm3 [place] # (0.0-0.8) K/mm3 Baso # (0.0-0.1) K/mm3 Seg Neutrophils % (40.0-70.0) % Seg Neutrophils # (1.8-7.7) K/mm3 Potassium (3.6-5.0) mmol/L BUN (7-17) mg/dL Creatinine (0.7-1.2) mg/dL Glucose (65-100) mg/dL POC Glucose 121 H (70-105) Calcium (8.4-10.2) mg/dL Magnesium (1.7-2.3) mg/dL
[2016-07-02] MEDS: NORCO 7.5/325 PO PRN (21:04)
[2016-07-03] MEDS: D5/0.45NS 1,000 ML IV SCH (00:25)
[2016-07-03] MEDS: NORCO 7.5/325 PO PRN (05:20)
[2016-07-03 07:15] LABS: Basophils % (Auto) 0.7 % (0.0-1.8); Eosinophils % (Auto) 0.7 % (0.0-4.3); Hemoglobin 6.5 gm/dl (10.1-14.3); Mean Corpuscular HGB Conc 34 % (30-34); Mean Corpuscular Hemoglobin 30 pg (28-32); Mean Corpuscular Volume 88 fl (79-97); Platelet Count 503 K/mm3 (140-440); Red Blood Count 2.21 M/mm3 (3.65-5.03); Red Cell Distribution Width 15.2 % (13.2-15.2); White Blood Count 16.8 K/mm3 (4.5-11.0)
[2016-07-03 07:18] LABS: Hematocrit 19.4 % (30.3-42.9)
[2016-07-03 07:41] LABS: BUN/Creatinine Ratio 13.12; Chloride 101.4 mmol/L (98-107)
[2016-07-03 07:46] LABS: Potassium 2.9 mmol/L (3.6-5.0)
--- NOTE | 2016-07-03 08:52 | Progress Note ---
Assessment and Plan Impression: * REJI/ATN * Anemia Acute blood loss * Respiratory Failure * PVD * Metabolic acidosis * hypokalemia Plan: * dialy lytes * likely ATN due to cardiac arrest and hypovolumia * cr is improving * replete k/follow up mag levels and replete prn * no need for GANG SAW OPERATOR at this point * daily lytes * avoid nephrotoxins * strict i/os Subjective Date of service: 07/03/16 Principal diagnosis: Acute Hypoxemic Respiratory Failure; s/p cardiopulmonary arrest Interval history: resting well in bed today Objective - Exam Narrative Exam: General appearance: no acute distress - EENT Eyes: PERRL, EOM intact ENT: hearing intact, other (ETT tube in mouth) - Neck Neck: supple, normal ROM - Respiratory Respiratory effort: normal Respiratory: bilateral: CTA - Cardiovascular Rhythm: regular Heart Sounds: Present: S1 & S2 Extremities: abnormal (Severe swelling and bruising L thigh; R thigh with femoral catheter and no bleeding) - Gastrointestinal General gastrointestinal: Present: soft, non-tender, non-distended, other (NG tube shows bilious material without blood) - Integumentary Integumentary: Present: clear, warm, dry - Neurologic Neurological: alert and oriented x3 - Vital Signs Vital signs: Vital Signs - 12hr 07/02/16 23:20 Temperature 100.5 F H Pulse Rate [ 112 H From Monitor] Respiratory 20 Rate Blood Pressure 123/62 [Left Arm] O2 Sat by Pulse 97 Oximetry - Lab 07/03/16 06:45 07/03/16 06:45 Most recent lab results Calcium 8.0 mg/dL (8.4-10.2) L 07/03/16 06:45 Magnesium 1.3 mg/dL (1.7-2.3) L 07/02/16 06:49
[2016-07-03] MEDS ORDERED: K-DUR PO ONE (10:00)
[2016-07-03] MEDS: PROTONIX PO SCH (10:14)
[2016-07-03] MEDS: PLAVIX PO SCH (10:14)
[2016-07-03] MEDS: FEOSOL PO SCH (10:14)
[2016-07-03] MEDS: TENORMIN PO SCH (10:14)
[2016-07-03] MEDS: HALFPRIN EC PO SCH (10:14)
[2016-07-03] MEDS: ELIQUIS PO SCH (10:15)
[2016-07-03] MEDS: K-DUR PO SCH (10:22)
[2016-07-03] MEDS ORDERED: MAGNESIUM SULFATE 2GM/50ML 50 ML IV ONE (11:00)
--- NOTE | 2016-07-03 11:16 | Progress Note ---
Assessment and Plan Acute change in the right foot that makes the situation is limb threatening. Stable left lower extremity well perfused. The incisions are stable. Improving renal function. Patient's tolerating room air despite left pleural effusion. Plan: Will obtain stat arterial duplex of the right lower extremity. We'll keep patient nothing by mouth. Patient may potentially require an angiogram to attempt to salvage the right lower extremity. This will be complicated by inability to access from contralateral side due to recent bypass as well as the patient being fully anticoagulated. Patient is at extremely high risk for limb loss. Subjective Principal diagnosis: Acute Hypoxemic Respiratory Failure; s/p cardiopulmonary arrest Interval history: Denies any complaints. No SOB No rest pain Objective - Exam Narrative Exam: Left foot warm with good capillary refill. Palpable left dorsalis pedis pulse. Left thigh is swollen, soft. The incisions are well approximated with some sloughing of necrotic epidermis most likely due to swelling. Non palpable right femoral pulse. Right foot is cool toes are gangrenous. There is no motor or sensory function of the right foot. Decreased breath sounds on the left. - Constitutional Vitals: Vital Signs - 12hr 07/02/16 07/03/16 07/03/16 23:20 08:05 10:14 Temperature 100.5 F H 97.1 F L Pulse Rate 80 Pulse Rate [ 112 H From Monitor] Pulse Rate [ 96 H Left Radial] Respiratory 20 20 Rate Blood Pressure 130/72 Blood Pressure 123/62 137/73 [Left Arm] O2 Sat by Pulse 97 100 Oximetry - Labs CBC & Chem 7: 07/03/16 06:45 07/03/16 06:45 Labs: Abnormal lab results 07/02/16 07/02/16 07/02/16 Range/Units 11:23 17:02 21:31 WBC (4.5-11.0) K/mm3 RBC (3.65-5.03) M/mm3 Hgb (10.1-14.3) gm/dl Hct (30.3-42.9) % Plt Count (140-440) K/mm3 Lymph % (Auto) (13.4-35.0) % Lymph # (1.2-5.4) K/mm3 [place] # (0.0-0.8) K/mm3 Seg Neutrophils % (40.0-70.0) % Seg Neutrophils # (1.8-7.7) K/mm3 Potassium (3.6-5.0) mmol/L BUN (7-17) mg/dL Creatinine (0.7-1.2) mg/dL Glucose (65-100) mg/dL POC Glucose 121 H 121 H 159 H (70-105) Calcium (8.4-10.2) mg/dL Magnesium (1.7-2.3) mg/dL 07/03/16 07/03/16 07/03/16 Range/Units 05:35 06:45 06:45 WBC 16.8 H (4.5-11.0) K/mm3 RBC 2.21 L (3.65-5.03) M/mm3 Hgb 6.5 L (10.1-14.3) gm/dl Hct 19.4 L* (30.3-42.9) % Plt Count 503 H (140-440) K/mm3 Lymph % (Auto) 6.4 L (13.4-35.0) % Lymph # 1.1 L (1.2-5.4) K/mm3 [place] # 1.1 H (0.0-0.8) K/mm3 Seg Neutrophils % 85.6 H (40.0-70.0) % Seg Neutrophils # 14.4 H (1.8-7.7) K/mm3 Potassium 2.9 L* (3.6-5.0) mmol/L BUN 21 H (7-17) mg/dL Creatinine 1.6 H (0.7-1.2) mg/dL Glucose 126 H (65-100) mg/dL POC Glucose 149 H (70-105) Calcium 8.0 L (8.4-10.2) mg/dL Magnesium (1.7-2.3) mg/dL 07/03/16 Range/Units 06:45 WBC (4.5-11.0) K/mm3 RBC (3.65-5.03) M/mm3 Hgb (10.1-14.3) gm/dl Hct (30.3-42.9) % Plt Count (140-440) K/mm3 Lymph % (Auto) (13.4-35.0) % Lymph # (1.2-5.4) K/mm3 [place] # (0.0-0.8) K/mm3 Seg Neutrophils % (40.0-70.0) % Seg Neutrophils # (1.8-7.7) K/mm3 Potassium (3.6-5.0) mmol/L BUN (7-17) mg/dL Creatinine (0.7-1.2) mg/dL Glucose (65-100) mg/dL POC Glucose (70-105) Calcium (8.4-10.2) mg/dL Magnesium 1.6 L (1.7-2.3) mg/dL
--- NOTE | 2016-07-03 11:47 | XRay Report ---
CHEST 2 VIEWS: INDICATION: Follow-up pleural effusion, possible pneumonia. COMPARISON: 06/28/2016 FINDINGS: Frontal and lateral chest radiographs suggest slight improved left lower lung hazy opacity/effusion and obscured left hemidiaphragm. Clear remainder lungs with stable cardiomediastinal silhouette, limited inspiration and osseous structures. CONCLUSION: Left lower lung opacity/effusion again noted, as described. Thank you for the opportunity to participate in this patient's care.
[2016-07-03] MEDS ORDERED: XYLOCAINE MPF 2% ONE (12:07)
[2016-07-03] MEDS ORDERED: ZOFRAN ONE (12:07)
[2016-07-03] MEDS ORDERED: DIPRIVAN 10 MG/ML IV ONE ×2 (12:08→16:34)
[2016-07-03] MEDS ORDERED: SUBLIMAZE ONE ×2 (12:08→14:11)
[2016-07-03] MEDS ORDERED: VERSED ONE ×2 (12:08→17:20)
[2016-07-03] MEDS ORDERED: NACL 0.9% 500 ML 500 ML IV ONE ×3 (12:12→23:38)
[2016-07-03] MEDS ORDERED: QUELICIN ONE (12:15)
[2016-07-03] MEDS ORDERED: NEO SYNEPHRINE/NS Syringe(OR USE) IV ONE (12:15)
[2016-07-03] MEDS ORDERED: HEPARIN 10,000 UNITS/10 ML ONE (12:15)
[2016-07-03] MEDS ORDERED: ZEMURON IV ONE (12:47)
[2016-07-03] MEDS ORDERED: ANCEF ONE (12:48)
[2016-07-03] MEDS ORDERED: HEPARIN 10,000 UNITS/10 ML 2,000 UNIT in NACL 0.9% 500 ML 500 ML IR ONE (12:54)
--- NOTE | 2016-07-03 13:56 | Anesthesia Day of Surgery ---
Anesthesia Day of Surgery - Day of Surgery Patient Examined: Yes Patient H&P Reviewed: Yes Patient is NPO: No (Patient ate breakfast this am. Will RSI for emergency procedure)
--- NOTE | 2016-07-03 13:56 | Anesthesia Consultation ---
Anesthesia Consult and Med Hx Date of service: 07/03/16 - Airway Anesthetic Teeth Evaluation: Edentulous ROM Head & Neck: Adequate Mental/Hyoid Distance: Adequate Mallampati Class: Class II Intubation Access Assessment: Probably Good - Pulmonary Exam CTA: Yes - Cardiac Exam Cardiac Exam: RRR - Pre-Operative Health Status ASA Pre-Surgery Classification: ASA4, Emergency Proposed Anesthetic Plan: General - Pulmonary Hx Smoking: Yes Hx Asthma: No COPD: No Hx Pneumonia: No Hx Sleep Apnea: No - Cardiovascular System Hx Hypertension: Yes (2008, high cholesterol) Hx Peripheral Vascular Disease: Yes (with intermittent claudication, ischemic pain) - Central Nervous System CVA: Yes (5yrs ago) Hx Psychiatric Problems: No - Endocrine Hx End Stage Renal Disease: No - Hematic Hx Anemia: Yes - Other Systems Hx Cancer: No - Additional Comments Anesthesia Medical History Comments: S/p cardia arrest 1 week ago. patient continues to have lower ext thrombosis after previous surgery. To OR now for open endarterectomy and possible fasciotomy.
[2016-07-03] MEDS ORDERED: REGLAN ONE (14:04)
[2016-07-03] MEDS ORDERED: NACL 0.9% 1000 ML 1,000 ML ONE ×3 (14:32→14:33)
[2016-07-03] MEDS ORDERED: ROBINUL ONE ×2 (15:14)
[2016-07-03] MEDS ORDERED: BLOXIVERZ ONE (15:14)
[2016-07-03] MEDS ORDERED: MARCAINE 0.25% INFILTRATI ONE (15:53)
--- NOTE | 2016-07-03 16:17 | Operative Report ---
Operative Report Operative Report: Date of procedure: 07/03/2016 Pre-operative diagnosis: Acute ischemic right leg/acute right common femoral artery occlusion Post-operative diagnosis: Same Procedure name(s): Emergent right common femoral thromboendarterectomy with bovine pericardial patch angioplasty. Completion angiogram Surgeon: Joaquin Ochoa MD, RPVI Generation Technologist: DO Wood Ruby PA Anesthesia: Gen. Findings 1. Occluded right common femoral artery with plaque and fresh clot. 2. Right ischemic foot. 3. Complete resolution of the occlusion after endarterectomy and a patch. 4. Brisk flow in the common iliac, external iliac, common femoral, deep femoral , popliteal arteries. Intact 2 vessel runoff. 5. Occluded SFA stents. Specimens: Right femoral plaque/clot EBL: 800 mL IV fluids: 3000 mL crystalloid. 4 units of packed red blood cells. Urine output: 500 cc Disposition: The recovery Procedure Indications: Acute ischemic right lower extremity. Patient was brought to the operating room and laid on table in supine position. After general anesthesia was achieved, patient was prepped and draped in usual sterile fashion. A longitudinal incision in the right groin was made using #15 blade. Subcutaneous tissue was divided with Bovie electrocautery. Right groin was found to have a lot of inflammation as well as the hematoma most likely due to several intervention for which right common femoral artery was used. The dissection was very difficult and we encountered a lot of bleeding from the tissues. We carefully dissected the common femoral artery using the combination of Bovie electrocautery and 15 blade scalpel. The common femoral artery did not have a pulse so the the dissection continued cephalad to the external iliac artery. External iliac artery was found to be soft and it was encircled with a vessel loop. The dissection continued coudad, and superficial femoral and deep femoral arteries were dissected free and controlled with vessel loops. I was informed that patient did not receive her Eliquis this morning so the patient received 4000 units of heparin. After administering heparin I was then informed that the original information was running patient did receive anticoagulation this morning so at this point she was extremely anticoagulated. After 3 minutes all vessels were controlled with vascular clamps. Arteriotomy was made using #11 blade on common femoral artery and extended proximally and distally with Pott scissors. Large amount of near occlusive calcified plaque along with fresh clot was seen and subsequently removed using a [place] elevator. The endarterectomy site was irrigated with heparinized saline the loose pieces were picked off with pickups. The endarterectomy was closed using bovine pericardial patch and running 5-0 Prolene stitch. Prior to completion of the patch back bleeding maneuvers were performed and excellent forward and backward bleeding was seen from all the vessels sub-the SFA. The patch was completed. The clamps were released. Excellent flow was noted in all the vessels with palpable pulses. There was quite a bit of bleeding due to anticoagulation. 2 areas on the patch were repaired using 6-0 Prolene stitch. The rest was nonsurgical bleeding. The micropuncture needle was inserted into the patch toward external adequate artery. The micropuncture was advanced under fluoroscopic guidance into the external iliac artery. The needle was removed and the micropuncture introducer was placed. An angiogram was performed through the micropuncture introducer; please see findings for details. At that point we decided that the flow was adequate to prevent limb loss and due to patient being coagulopathic, not in great health and with recent events we decided that an attempt at SFA revascularization represented high risk of continuing the operation in such conditions. If necessary we should be able to do it at the later date under more elective conditions. The wound was closed in layers using 2-0 Vicryl followed by 3-0 Vicryl followed by samaria. Patient tolerated procedure well and was extubated and transferred to the recovery room. At the end of the case all instrument sponge and needle counts were correct.
[2016-07-03] MEDS ORDERED: PROVENTIL IH ONE (16:31)
[2016-07-03] MEDS ORDERED: ARTIFICIAL TEARS OPHTH OINT OU PRN (16:57)
[2016-07-03] MEDS ORDERED: VASELINE LIP THERAPY TP PRN (16:57)
[2016-07-03] MEDS ORDERED: DIPRIVAN 10 MG/ML 100 ML IV SCH (17:00)
[2016-07-03] MEDS ORDERED: NACL 0.9% 500 ML IV SCH (17:00)
--- NOTE | 2016-07-03 17:17 | Post Anesthesia Evaluation ---
- Post Anesthesia Evaluation Patient Participated: No (sedated on vent) Airway Patent: Yes Stable Respiratory Function: Yes Nausea/Vomiting: No Temp > 96.8F: Yes Pain Manageable: Yes Adequeate Hydration: Yes Anesthesia Complications: No Block Receding Appropriately: Not Applicable Patient on Ventilator: Yes
--- NOTE | 2016-07-03 17:17 | Event Note ---
Date: 07/03/16 Patient reintubated in PACU. O2 saturation decreased to 60% with labored breathing. Decreased air entry bilaterally. Reintubated with 7.5 ETT after propofol 200mg and succinylcholine 200mg.
[2016-07-03] MEDS ORDERED: VERSED IV PRN (17:25)
--- NOTE | 2016-07-03 17:52 | XRay Report ---
FINAL REPORT PROCEDURE: XR CHEST 1V AP TECHNIQUE: Chest radiograph anteroposterior view. CPT 57632 HISTORY: ETT placement COMPARISON: 06/20/2016 FINDINGS: Heart: Prominent cardiac silhouette Mediastinum/Vessels: Prominent central vessels. Lungs/Pleural space: Left lung base opacity and left pleural effusion. There are also ground-glass bilateral perihilar opacities present. Bony thorax: No acute osseous abnormality. Life support devices: Endotracheal tube tip is at the origin of the right mainstem bronchus and should be retracted by approximately 3 centimeters. IMPRESSION: Endotracheal tube tip is at the origin of the right mainstem bronchus and should be retracted by approximately 3 centimeters. Bilateral pulmonary airspace opacities and left pleural effusion
--- NOTE | 2016-07-03 18:08 | Event Note ---
Date: 07/03/16 After reviewing post intubation chest x-ray and based on recommendation of radiologist, I retracted endotracheal tube by 3cm. Tube now taped at 20cm at the lip.
[2016-07-03 19:13] LABS: ISTAT Base Excess -2; ISTAT HCO3 24.6; ISTAT PCO2 49.8 (35-45); ISTAT PH 7.302 (7.35-7.45); ISTAT PO2 422 (80-105); ISTAT SO2 100; ISTAT TCO2 26
[2016-07-03] MEDS: NACL 0.9% 1000 ML 1,000 ML IV SCH (22:52)
[2016-07-03] MEDS: MORPHINE IV PRN (23:01)
[2016-07-03 23:53] LABS: Hematocrit 31.4 % (30.3-42.9); Hemoglobin 10.6 gm/dl (10.1-14.3)
--- NOTE | 2016-07-04 01:02 | XRay Report ---
FINAL REPORT PROCEDURE: XR CHEST 1V AP TECHNIQUE: Chest radiograph anteroposterior view. CPT 50537 HISTORY: adjustment made to OETT COMPARISON: 07/03/2016 FINDINGS: Heart: Normal. Mediastinum/Vessels: Normal. Lungs/Pleural space: There is a small left pleural effusion similar to the prior study. There is mild pulmonary vascular congestion bilaterally. There are no infiltrates or pneumothoraces.. Bony thorax: No acute osseous abnormality. Life support devices: The endotracheal tube is in the distal trachea approximately 8 millimeters above the [place]. Perhaps is retracting 2 centimeters would be optimal. IMPRESSION: Heart size is normal.. There is a small left pleural effusion similar to the prior study. There is mild pulmonary vascular congestion bilaterally. There are no infiltrates or pneumothoraces.. The endotracheal tube is in the distal trachea approximately 8 millimeters above the [place]. Perhaps is retracting 2 centimeters would be optimal.
[2016-07-04 05:24] LABS: Basophils % (Auto) 0.4 % (0.0-1.8); Eosinophils % (Auto) 0.3 % (0.0-4.3); Hematocrit 28.2 % (30.3-42.9); Hemoglobin 9.4 gm/dl (10.1-14.3); Mean Corpuscular HGB Conc 33 % (30-34); Mean Corpuscular Hemoglobin 29 pg (28-32); Mean Corpuscular Volume 88 fl (79-97); Platelet Count 354 K/mm3 (140-440); Red Blood Count 3.21 M/mm3 (3.65-5.03); Red Cell Distribution Width 14.2 % (13.2-15.2); White Blood Count 19.6 K/mm3 (4.5-11.0)
[2016-07-04 05:48] LABS: BUN/Creatinine Ratio 16.36; Blood Urea Nitrogen 18 mg/dL (7-17); Carbon Dioxide 20 mmol/L (22-30); Chloride 111.2 mmol/L (98-107); Glucose 94 mg/dL (65-100); Sodium 145 mmol/L (137-145)
[2016-07-04 05:49] LABS: Anion Gap 17 mmol/L
[2016-07-04 05:50] LABS: Potassium 3.5 mmol/L (3.6-5.0)
[2016-07-04 06:15] LABS: ISTAT Base Excess -3; ISTAT HCO3 21.2; ISTAT PCO2 29.5 (35-45); ISTAT PH 7.465 (7.35-7.45); ISTAT PO2 110 (80-105); ISTAT SO2 99; ISTAT TCO2 22
[2016-07-04] MEDS ORDERED: PROVENTIL IH ONE ×2 (08:41→11:00)
--- NOTE | 2016-07-04 09:51 | Progress Note ---
Assessment and Plan Patient awake,resting on assist control. Planning spontaneous breathing trial. Patient presently on pressure support 10 cm H2O , FIO2 30% Tolerating good Obtaining blood gases. If they are good may extubate the patient. - Patient Problems (1) Acute respiratory failure Current Visit: Yes Status: Acute Plan to address problem: Patient presently undergoing spontaneous breathing trials. Pressure support 10 cm H20 and FIO2 30%. 06/27/16 Respiratory status improved. No acute respiratory distress. On room air . O2 satuaration 100%. 06/30/16 Patient is on room air. No respiratory distress. O2 satuaration 97%. 07/04/16 Patient presently on pressure support 10 cm H20, FIO2 30% Patient tolerating good. Obtaining blood gases, If they are may extubate her. (2) Cardiopulmonary arrest with successful resuscitation Current Visit: Yes Status: Acute Plan to address problem: Patient resuciated . Patient is on mechanical ventilation and vasopressors. 06/27/16 Improved. alert,awake following commands. !08/31/15 Patient alert,awake and following commands. 07/04/16 Patient alert, awake following commands. (3) Left lower lobe pneumonia Current Visit: Yes Status: Acute Plan to address problem: Patient running low grade temp. Patient has leukocytosis. Chest xray showing left lower lobe infiltrate, Obtaining blood cultures Tracheal aspirate for gram stain and C&S. Urin for U/A C&S. Starting on Zosyn. 06/27/16 Patient afebrile Repeating chest xray. 06/30/16 Repeat chest xray reported increased left pleural effusion. Obtaining ultrasound of chest. 07/04/16 Reported small left effusion. (4) Atherosclerosis of [place] arteries of extremity with intermittent claudication Current Visit: Yes Status: Acute Plan to address problem: Management as per vascular surgery. (5) Metabolic acidosis Current Visit: Yes Status: Acute Plan to address problem: Obtaining Lactate level. Given I/V Bicarb. 06/27/16 Improving. 06/30/16 Metabolic acidosis improved. (6) ATN (acute tubular necrosis) Current Visit: Yes Status: Acute Plan to address problem: Nephrology consulted. Management as per nephrology. Subjective Date of service: 07/04/16 Principal diagnosis: Acute Hypoxemic Respiratory Failure; s/p cardiopulmonary arrest Interval history: Patient awake,resting on assist control. Planning spontaneous breathing trial. Patient presently on pressure support 10 cm H2O , FIO2 30% Tolerating good Obtaining blood gases. If they are good may extubate the patient. Objective Vital Signs - 12hr 07/03/16 07/03/16 07/03/16 22:00 22:10 22:16 Pulse Rate 93 H 91 H 98 H Respiratory 24 22 22 Rate Blood Pressure 133/69 133/69 133/69 O2 Sat by Pulse 100 100 100 Oximetry 07/03/16 07/03/16 07/03/16 22:30 22:46 23:00 Pulse Rate 104 H 101 H 108 H Respiratory 25 H 23 18 Rate Blood Pressure 134/61 134/61 134/61 O2 Sat by Pulse 99 99 98 Oximetry 07/03/16 07/03/16 07/03/16 23:16 23:30 23:46 Pulse Rate 103 H 101 H 117 H Respiratory 22 21 28 H Rate Blood Pressure 99/55 117/64 117/64 O2 Sat by Pulse 98 97 99 Oximetry 07/04/16 07/04/16 07/04/16 00:00 00:16 00:30 Pulse Rate 103 H 98 H 108 H Respiratory 22 20 21 Rate Blood Pressure 123/70 123/70 123/67 O2 Sat by Pulse 99 99 Oximetry 07/04/16 07/04/16 07/04/16 00:42 00:46 01:00 Pulse Rate 108 H 110 H 111 H Respiratory 22 24 Rate Blood Pressure 123/67 123/67 128/64 O2 Sat by Pulse 98 98 99 Oximetry 07/04/16 07/04/16 07/04/16 01:12 01:16 01:30 Pulse Rate 111 H 111 H 107 H Respiratory 25 H 22 22 Rate Blood Pressure 128/64 128/64 128/72 O2 Sat by Pulse 98 Oximetry 07/04/16 07/04/16 07/04/16 01:46 02:00 02:16 Pulse Rate 103 H 105 H 111 H Respiratory 20 18 20 Rate Blood Pressure 128/72 119/70 119/70 O2 Sat by Pulse 100 99 100 Oximetry 07/04/16 07/04/16 07/04/16 02:30 02:46 03:00 Pulse Rate 106 H 103 H 107 H Respiratory 20 19 19 Rate Blood Pressure 114/73 114/73 100/64 O2 Sat by Pulse 99 100 Oximetry 07/04/16 07/04/16 07/04/16 03:16 03:30 03:46 Pulse Rate 103 H 106 H 104 H Respiratory 18 15 16 Rate Blood Pressure 100/64 101/59 101/59 O2 Sat by Pulse 100 99 99 Oximetry 07/04/16 07/04/16 07/04/16 04:00 04:16 04:30 Pulse Rate 106 H 105 H 106 H Respiratory 18 13 19 Rate Blood Pressure 118/63 118/63 100/59 O2 Sat by Pulse 98 100 Oximetry 07/04/16 07/04/16 07/04/16 04:46 05:00 05:16 Pulse Rate 100 H 105 H 109 H Respiratory 18 18 16 Rate Blood Pressure 100/59 109/60 109/60 O2 Sat by Pulse 99 99 100 Oximetry 07/04/16 07/04/16 07/04/16 05:19 05:30 05:40 Pulse Rate 107 H 106 H 107 H Respiratory 15 19 21 Rate Blood Pressure 109/60 108/59 108/59 O2 Sat by Pulse 99 100 Oximetry 07/04/16 07/04/16 07/04/16 05:44 05:46 06:00 Pulse Rate 106 H 114 H 105 H Respiratory 20 19 Rate Blood Pressure 108/59 108/59 95/68 O2 Sat by Pulse 97 100 99 Oximetry 07/04/16 07/04/16 07/04/16 06:16 06:30 06:46 Pulse Rate 104 H 102 H 105 H Respiratory 16 22 18 Rate Blood Pressure 95/68 95/68 118/67 O2 Sat by Pulse 100 100 100 Oximetry 07/04/16 07/04/16 07/04/16 07:00 07:16 08:47 Pulse Rate 101 H 98 H 103 H Respiratory 18 18 Rate Blood Pressure 124/67 124/67 139/75 O2 Sat by Pulse 100 100 100 Oximetry Constitutional: no acute distress, alert, other (Resting on mechanical ventilation.) Eyes: non-icteric ENT: oropharynx moist Neck: supple, no lymphadenopathy Effort: normal Ascultation: Bilateral: diminished breath sounds, rhonchi (posterior bases) Cardiovascular: regular rate and rhythm Gastrointestinal: normoactive bowel sounds, soft, non-tender, non-distended Integumentary: other (weak LLExt) Extremities: no cyanosis, edema, other (LLExt pulses diminished but leg warm) Neurologic: normal mental status, non-focal exam, pupils equal and round, motor strength normal and Psychiatric: mood appropriate, affect normal CBC and BMP: 07/04/16 04:30 07/04/16 04:30 ABG, PT/INR, D-dimer: ABG POC ABG pH 7.465 (7.35-7.45) H 07/04/16 05:44 POC ABG pCO2 29.5 (35-45) L 07/04/16 05:44 POC ABG pO2 110 (80-105) H 07/04/16 05:44 POC ABG HCO3 21.2 07/04/16 05:44 POC ABG Total CO2 22 07/04/16 05:44 POC ABG O2 Sat 99 07/04/16 05:44 PT/INR, D-dimer PT 19.9 Sec. (12.2-14.9) H 06/26/16 22:57 INR 1.69 (0.87-1.13) H 06/26/16 22:57 Abnormal lab findings: Abnormal Labs 06/13/16 06/13/16 06/13/16 09:45 09:45 09:45 WBC RBC Hgb POC Hgb Hct POC Hct MCH 25 L MCHC RDW 15.8 H Plt Count Lymph % (Auto) Jerome % (Auto) 8.1 H Lymph # Jerome # Baso # Seg Neutrophils % Seg Neuts % (Manual) Lymphocytes % (Manual) Monocytes % (Manual) Nucleated RBC % Seg Neutrophils # Seg Neutrophils # Man Lymphocytes # (Manual) Monocytes # (Manual) PT INR APTT Fibrinogen 522 H Heparin Anti-Xa Level POC ABG pH POC ABG pCO2 POC ABG pO2 POC Potassium POC Chloride Sodium Potassium Chloride Carbon Dioxide POC BUN BUN Creatinine Glucose POC Glucose Calcium 10.3 H Magnesium Crossmatch 06/13/16 06/13/16 06/13/16 09:45 20:14 20:15 WBC RBC Hgb POC Hgb Hct POC Hct MCH MCHC RDW Plt Count Lymph % (Auto) [place] % (Auto) Lymph # [place] # Baso # Seg Neutrophils % Seg Neuts % (Manual) Lymphocytes % (Manual) Monocytes % (Manual) Nucleated RBC % Seg Neutrophils # Seg Neutrophils # Man Lymphocytes # (Manual) Monocytes # (Manual) PT INR APTT 103.8 H* Fibrinogen Heparin Anti-Xa Level 0.72 H POC ABG pH POC ABG pCO2 POC ABG pO2 POC Potassium POC Chloride Sodium Potassium Chloride Carbon Dioxide POC BUN BUN Creatinine Glucose POC Glucose Calcium Magnesium Crossmatch See Detail 06/14/16 06/14/16 06/14/16 07:44 10:18 19:09 WBC RBC Hgb POC Hgb Hct POC Hct MCH 26 L MCHC RDW 15.8 H Plt Count Lymph % (Auto) [place] % (Auto) 9.1 H Lymph # Jerome # Baso # Seg Neutrophils % Seg Neuts % (Manual) Lymphocytes % (Manual) Monocytes % (Manual) Nucleated RBC % Seg Neutrophils # Seg Neutrophils # Man Lymphocytes # (Manual) Monocytes # (Manual) PT INR APTT Fibrinogen Heparin Anti-Xa Level 0.76 H POC ABG pH POC ABG pCO2 POC ABG pO2 POC Potassium POC Chloride Sodium Potassium Chloride Carbon Dioxide POC BUN BUN Creatinine Glucose POC Glucose 106 H Calcium Magnesium Crossmatch 06/15/16 06/15/16 06/15/16 04:43 04:43 22:49 WBC RBC Hgb 9.2 L POC Hgb Hct 28.4 L POC Hct MCH MCHC RDW Plt Count Lymph % (Auto) [place] % (Auto) Lymph # [place] # Baso # Seg Neutrophils % Seg Neuts % (Manual) Lymphocytes % (Manual) Monocytes % (Manual) Nucleated RBC % Seg Neutrophils # Seg Neutrophils # Man Lymphocytes # (Manual) Monocytes # (Manual) PT INR APTT Fibrinogen Heparin Anti-Xa Level 0.85 H POC ABG pH POC ABG pCO2 POC ABG pO2 POC Potassium POC Chloride Sodium Potassium Chloride Carbon Dioxide POC BUN BUN Creatinine Glucose POC Glucose 134 H Calcium Magnesium Crossmatch 06/16/16 06/16/16 06/16/16 08:55 08:55 14:21 WBC RBC Hgb POC Hgb 5.8 L Hct POC Hct 17 L MCH MCHC RDW Plt Count Lymph % (Auto) [place] % (Auto) Lymph # [place] # Baso # Seg Neutrophils % Seg Neuts % (Manual) Lymphocytes % (Manual) Monocytes % (Manual) Nucleated RBC % Seg Neutrophils # Seg Neutrophils # Man Lymphocytes # (Manual) Monocytes # (Manual) PT INR APTT 20.0 L Fibrinogen Heparin Anti-Xa Level POC ABG pH POC ABG pCO2 POC ABG pO2 POC Potassium 2.9 L POC Chloride Sodium Potassium Chloride Carbon Dioxide POC BUN 7 L BUN Creatinine Glucose POC Glucose 249 H Calcium Magnesium Crossmatch See Detail 06/16/16 06/16/16 06/16/16 16:55 17:41 17:48 WBC RBC Hgb POC Hgb 8.8 L Hct POC Hct 26 L < 15 L MCH MCHC RDW Plt Count Lymph % (Auto) [place] % (Auto) Lymph # [place] # Baso # Seg Neutrophils % Seg Neuts % (Manual) Lymphocytes % (Manual) Monocytes % (Manual) Nucleated RBC % Seg Neutrophils # Seg Neutrophils # Man Lymphocytes # (Manual) Monocytes # (Manual) PT INR APTT Fibrinogen Heparin Anti-Xa Level POC ABG pH 7.031 L POC ABG pCO2 POC ABG pO2 475 H POC Potassium 3.2 L POC Chloride 112 H 114 H Sodium Potassium Chloride Carbon Dioxide POC BUN 7 L 7 L BUN Creatinine Glucose POC Glucose 203 H 291 H Calcium Magnesium Crossmatch 06/16/16 06/16/16 06/16/16 18:07 19:09 20:10 WBC 15.8 H RBC Hgb POC Hgb 6.5 L Hct POC Hct 19 L MCH MCHC RDW Plt Count 38 L Lymph % (Auto) 5.9 L [place] % (Auto) 9.3 H Lymph # 0.9 L Jerome # 1.5 H Baso # Seg Neutrophils % 84.6 H Seg Neuts % (Manual) Lymphocytes % (Manual) Monocytes % (Manual) Nucleated RBC % Seg Neutrophils # 13.3 H Seg Neutrophils # Man Lymphocytes # (Manual) Monocytes # (Manual) PT INR APTT Fibrinogen Heparin Anti-Xa Level POC ABG pH POC ABG pCO2 POC ABG pO2 POC Potassium POC Chloride 113 H Sodium Potassium Chloride Carbon Dioxide POC BUN 7 L BUN Creatinine Glucose POC Glucose 263 H 231 H Calcium Magnesium Crossmatch 06/16/16 06/16/16 06/16/16 20:10 20:18 21:10 WBC RBC Hgb POC Hgb Hct POC Hct MCH MCHC RDW Plt Count Lymph % (Auto) [place] % (Auto) Lymph # [place] # Baso # Seg Neutrophils % Seg Neuts % (Manual) Lymphocytes % (Manual) Monocytes % (Manual) Nucleated RBC % Seg Neutrophils # Seg Neutrophils # Man Lymphocytes # (Manual) Monocytes # (Manual) PT INR APTT Fibrinogen Heparin Anti-Xa Level POC ABG pH 7.236 L 7.280 L POC ABG pCO2 POC ABG pO2 139 H 145 H POC Potassium POC Chloride Sodium Potassium 3.4 L Chloride 114.5 H Carbon Dioxide 17 L D POC BUN BUN Creatinine Glucose 188 H POC Glucose Calcium 6.1 L D Magnesium Crossmatch 06/16/16 06/17/16 06/17/16 22:53 04:48 05:35 WBC RBC Hgb POC Hgb Hct POC Hct MCH MCHC RDW Plt Count Lymph % (Auto) [place] % (Auto) Lymph # [place] # Baso # Seg Neutrophils % Seg Neuts % (Manual) Lymphocytes % (Manual) Monocytes % (Manual) Nucleated RBC % Seg Neutrophils # Seg Neutrophils # Man Lymphocytes # (Manual) Monocytes # (Manual) PT INR APTT Fibrinogen Heparin Anti-Xa Level POC ABG pH POC ABG pCO2 33.9 L 22.2 L POC ABG pO2 152 H 154 H POC Potassium POC Chloride Sodium 150 H Potassium 3.4 L Chloride 114.2 H Carbon Dioxide 16 L POC BUN BUN Creatinine Glucose 221 H POC Glucose Calcium 7.6 L D Magnesium Crossmatch 06/17/16 06/18/16 06/18/16 09:22 07:26 08:25 WBC 20.3 H RBC 3.41 L Hgb 9.9 L POC Hgb Hct 29.7 L POC Hct MCH MCHC RDW Plt Count Lymph % (Auto) [place] % (Auto) Lymph # [place] # Baso # Seg Neutrophils % Seg Neuts % (Manual) 81.0 H Lymphocytes % (Manual) 6.0 L Monocytes % (Manual) 12.0 H Nucleated RBC % Seg Neutrophils # Seg Neutrophils # Man 16.4 H Lymphocytes # (Manual) Monocytes # (Manual) 2.4 H PT INR APTT Fibrinogen Heparin Anti-Xa Level POC ABG pH POC ABG pCO2 POC ABG pO2 POC Potassium POC Chloride Sodium Potassium 3.1 L Chloride Carbon Dioxide POC BUN BUN Creatinine Glucose 136 H POC Glucose 141 H Calcium 7.5 L Magnesium Crossmatch 06/18/16 06/18/16 06/18/16 08:25 11:09 19:40 WBC RBC Hgb 6.5 L D POC Hgb Hct 19.3 L* D POC Hct MCH MCHC RDW Plt Count 131 L Lymph % (Auto) [place] % (Auto) Lymph # [place] # Baso # Seg Neutrophils % Seg Neuts % (Manual) Lymphocytes % (Manual) Monocytes % (Manual) Nucleated RBC % Seg Neutrophils # Seg Neutrophils # Man Lymphocytes # (Manual) Monocytes # (Manual) PT INR APTT Fibrinogen Heparin Anti-Xa Level POC ABG pH 7.490 H POC ABG pCO2 POC ABG pO2 131 H POC Potassium POC Chloride Sodium Potassium Chloride Carbon Dioxide POC BUN BUN Creatinine Glucose POC Glucose 125 H Calcium Magnesium Crossmatch 06/18/16 06/19/16 06/19/16 21:10 07:07 07:28 WBC 13.6 H RBC 2.17 L Hgb 6.5 L POC Hgb Hct 18.8 L* POC Hct MCH MCHC 35 H RDW Plt Count 131 L Lymph % (Auto) 10.1 L [place] % (Auto) 9.3 H Lymph # Jerome # 1.3 H Baso # Seg Neutrophils % 79.7 H Seg Neuts % (Manual) Lymphocytes % (Manual) Monocytes % (Manual) Nucleated RBC % Seg Neutrophils # 10.8 H Seg Neutrophils # Man Lymphocytes # (Manual) Monocytes # (Manual) PT INR APTT Fibrinogen Heparin Anti-Xa Level 0.75 H POC ABG pH POC ABG pCO2 POC ABG pO2 POC Potassium POC Chloride Sodium Potassium 3.5 L Chloride Carbon Dioxide POC BUN BUN Creatinine Glucose 104 H POC Glucose Calcium 7.6 L Magnesium 1.4 L Crossmatch 06/20/16 06/20/16 06/20/16 04:15 18:15 18:15 WBC 16.6 H RBC 1.19 L Hgb 9.2 L 3.5 L* D POC Hgb Hct 27.5 L D 11.0 L* D POC Hct MCH MCHC RDW Plt Count 138 L Lymph % (Auto) [place] % (Auto) Lymph # [place] # Baso # Seg Neutrophils % Seg Neuts % (Manual) Lymphocytes % (Manual) Monocytes % (Manual) Nucleated RBC % Seg Neutrophils # Seg Neutrophils # Man Lymphocytes # (Manual) Monocytes # (Manual) PT INR APTT Fibrinogen Heparin Anti-Xa Level POC ABG pH POC ABG pCO2 POC ABG pO2 POC Potassium POC Chloride Sodium 146 H Potassium Chloride Carbon Dioxide 14 L D POC BUN BUN Creatinine Glucose 31 L* POC Glucose Calcium 6.7 L Magnesium Crossmatch 06/20/16 06/20/16 06/20/16 18:15 19:33 19:36 WBC RBC Hgb POC Hgb Hct POC Hct MCH MCHC RDW Plt Count Lymph % (Auto) [place] % (Auto) Lymph # [place] # Baso # Seg Neutrophils % Seg Neuts % (Manual) Lymphocytes % (Manual) Monocytes % (Manual) Nucleated RBC % Seg Neutrophils # Seg Neutrophils # Man Lymphocytes # (Manual) Monocytes # (Manual) PT INR APTT Fibrinogen Heparin Anti-Xa Level POC ABG pH POC ABG pCO2 26.3 L POC ABG pO2 394 H POC Potassium POC Chloride Sodium Potassium Chloride Carbon Dioxide POC BUN BUN Creatinine Glucose POC Glucose 212 H Calcium Magnesium Crossmatch See Detail 06/20/16 06/20/16 06/21/16 22:01 23:00 00:35 WBC RBC Hgb POC Hgb Hct POC Hct MCH MCHC RDW Plt Count Lymph % (Auto) [place] % (Auto) Lymph # [place] # Baso # Seg Neutrophils % Seg Neuts % (Manual) Lymphocytes % (Manual) Monocytes % (Manual) Nucleated RBC % Seg Neutrophils # Seg Neutrophils # Man Lymphocytes # (Manual) Monocytes # (Manual) PT 21.3 H INR 1.85 H APTT 48.4 H Fibrinogen Heparin Anti-Xa Level POC ABG pH POC ABG pCO2 POC ABG pO2 POC Potassium POC Chloride Sodium Potassium Chloride Carbon Dioxide POC BUN BUN Creatinine Glucose POC Glucose 149 H 147 H Calcium Magnesium Crossmatch 06/21/16 06/21/16 06/21/16 04:30 04:30 06:01 WBC 21.7 H RBC 3.58 L Hgb POC Hgb Hct POC Hct MCH MCHC 35 H RDW Plt Count 116 L Lymph % (Auto) [place] % (Auto) Lymph # [place] # Baso # Seg Neutrophils % Seg Neuts % (Manual) Lymphocytes % (Manual) 8.0 L Monocytes % (Manual) Nucleated RBC % 3.0 H Seg Neutrophils # Seg Neutrophils # Man 13.7 H Lymphocytes # (Manual) Monocytes # (Manual) 1.5 H PT INR APTT Fibrinogen Heparin Anti-Xa Level POC ABG pH 7.541 H POC ABG pCO2 21.1 L POC ABG pO2 108 H POC Potassium POC Chloride Sodium Potassium 3.0 L Chloride 110.3 H Carbon Dioxide 18 L POC BUN BUN 18 H Creatinine Glucose 141 H POC Glucose Calcium 6.4 L Magnesium Crossmatch 06/21/16 06/21/16 06/21/16 07:00 10:02 17:51 WBC RBC Hgb 8.3 L POC Hgb Hct 24.7 L D POC Hct MCH MCHC RDW Plt Count Lymph % (Auto) [place] % (Auto) Lymph # [place] # Baso # Seg Neutrophils % Seg Neuts % (Manual) Lymphocytes % (Manual) Monocytes % (Manual) Nucleated RBC % Seg Neutrophils # Seg Neutrophils # Man Lymphocytes # (Manual) Monocytes # (Manual) PT INR APTT Fibrinogen Heparin Anti-Xa Level POC ABG pH POC ABG pCO2 POC ABG pO2 POC Potassium POC Chloride Sodium Potassium Chloride Carbon Dioxide POC BUN BUN Creatinine Glucose POC Glucose 132 H 106 H Calcium Magnesium Crossmatch 06/22/16 06/22/16 06/22/16 05:00 05:00 06:40 WBC 20.6 H RBC 3.54 L Hgb POC Hgb Hct POC Hct MCH MCHC RDW Plt Count 129 L Lymph % (Auto) [place] % (Auto) Lymph # [place] # Baso # Seg Neutrophils % Seg Neuts % (Manual) 87.0 H Lymphocytes % (Manual) 4.0 L Monocytes % (Manual) Nucleated RBC % 4.0 H Seg Neutrophils # Seg Neutrophils # Man 17.9 H Lymphocytes # (Manual) 0.8 L Monocytes # (Manual) 1.2 H PT INR APTT Fibrinogen Heparin Anti-Xa Level POC ABG pH POC ABG pCO2 21.9 L POC ABG pO2 118 H POC Potassium POC Chloride Sodium Potassium Chloride 109.9 H Carbon Dioxide 15 L POC BUN BUN 26 H Creatinine 2.2 H D Glucose POC Glucose Calcium 6.3 L Magnesium Crossmatch 06/22/16 06/22/16 06/22/16 09:15 09:15 23:17 WBC RBC Hgb 9.1 L POC Hgb Hct 26.9 L POC Hct MCH MCHC RDW Plt Count 116 L Lymph % (Auto) [place] % (Auto) Lymph # [place] # Baso # Seg Neutrophils % Seg Neuts % (Manual) Lymphocytes % (Manual) Monocytes % (Manual) Nucleated RBC % Seg Neutrophils # Seg Neutrophils # Man Lymphocytes # (Manual) Monocytes # (Manual) PT 15.8 H INR 1.27 H APTT Fibrinogen Heparin Anti-Xa Level POC ABG pH POC ABG pCO2 POC ABG pO2 POC Potassium POC Chloride Sodium Potassium Chloride Carbon Dioxide POC BUN BUN Creatinine Glucose POC Glucose 134 H Calcium Magnesium Crossmatch 06/23/16 06/23/16 06/23/16 05:43 05:43 09:44 WBC 13.8 H RBC 2.70 L Hgb 8.1 L POC Hgb Hct 24.2 L POC Hct MCH MCHC RDW Plt Count 93 L Lymph % (Auto) 6.2 L [place] % (Auto) Lymph # 0.9 L [place] # Baso # Seg Neutrophils % 89.2 H Seg Neuts % (Manual) Lymphocytes % (Manual) Monocytes % (Manual) Nucleated RBC % Seg Neutrophils # 12.3 H Seg Neutrophils # Man Lymphocytes # (Manual) Monocytes # (Manual) PT INR APTT Fibrinogen Heparin Anti-Xa Level POC ABG pH 7.593 H POC ABG pCO2 26.8 L POC ABG pO2 141 H POC Potassium POC Chloride Sodium 146 H Potassium Chloride Carbon Dioxide POC BUN BUN 32 H Creatinine 2.6 H Glucose 142 H POC Glucose Calcium 7.0 L Magnesium Crossmatch 06/23/16 06/23/16 06/23/16 11:23 17:42 23:32 WBC RBC Hgb POC Hgb Hct POC Hct MCH MCHC RDW Plt Count Lymph % (Auto) [place] % (Auto) Lymph # [place] # Baso # Seg Neutrophils % Seg Neuts % (Manual) Lymphocytes % (Manual) Monocytes % (Manual) Nucleated RBC % Seg Neutrophils # Seg Neutrophils # Man Lymphocytes # (Manual) Monocytes # (Manual) PT INR APTT Fibrinogen Heparin Anti-Xa Level POC ABG pH POC ABG pCO2 POC ABG pO2 POC Potassium POC Chloride Sodium Potassium Chloride Carbon Dioxide POC BUN BUN Creatinine Glucose POC Glucose 138 H 133 H 111 H Calcium Magnesium Crossmatch 06/24/16 06/24/16 06/24/16 06:27 08:10 08:10 WBC 16.6 H RBC 2.91 L Hgb 8.9 L POC Hgb Hct 26.4 L POC Hct MCH MCHC RDW 15.6 H Plt Count 115 L Lymph % (Auto) 4.6 L [place] % (Auto) Lymph # 0.8 L Jerome # 1.0 H Baso # Seg Neutrophils % 89.2 H Seg Neuts % (Manual) Lymphocytes % (Manual) Monocytes % (Manual) Nucleated RBC % Seg Neutrophils # 14.9 H Seg Neutrophils # Man Lymphocytes # (Manual) Monocytes # (Manual) PT INR APTT Fibrinogen Heparin Anti-Xa Level POC ABG pH POC ABG pCO2 POC ABG pO2 POC Potassium POC Chloride Sodium 146 H Potassium Chloride Carbon Dioxide POC BUN BUN 37 H Creatinine 2.9 H Glucose POC Glucose 109 H Calcium 7.5 L Magnesium Crossmatch 06/24/16 06/24/16 06/24/16 12:05 17:57 22:13 WBC RBC Hgb POC Hgb Hct POC Hct MCH MCHC RDW Plt Count Lymph % (Auto) [place] % (Auto) Lymph # [place] # Baso # Seg Neutrophils % Seg Neuts % (Manual) Lymphocytes % (Manual) Monocytes % (Manual) Nucleated RBC % Seg Neutrophils # Seg Neutrophils # Man Lymphocytes # (Manual) Monocytes # (Manual) PT INR APTT Fibrinogen Heparin Anti-Xa Level POC ABG pH POC ABG pCO2 POC ABG pO2 POC Potassium POC Chloride Sodium Potassium Chloride Carbon Dioxide POC BUN BUN Creatinine Glucose POC Glucose 117 H 124 H 116 H Calcium Magnesium Crossmatch 06/25/16 06/25/16 06/25/16 06:42 06:49 12:14 WBC RBC Hgb POC Hgb Hct POC Hct MCH MCHC RDW Plt Count Lymph % (Auto) [place] % (Auto) Lymph # [place] # Baso # Seg Neutrophils % Seg Neuts % (Manual) Lymphocytes % (Manual) Monocytes % (Manual) Nucleated RBC % Seg Neutrophils # Seg Neutrophils # Man Lymphocytes # (Manual) Monocytes # (Manual) PT INR APTT Fibrinogen Heparin Anti-Xa Level POC ABG pH POC ABG pCO2 POC ABG pO2 POC Potassium POC Chloride Sodium Potassium Chloride Carbon Dioxide POC BUN BUN 46 H Creatinine 3.6 H Glucose 133 H POC Glucose 137 H 136 H Calcium 7.4 L Magnesium Crossmatch 06/25/16 06/25/16 06/26/16 16:07 21:32 05:55 WBC RBC Hgb POC Hgb Hct POC Hct MCH MCHC RDW Plt Count Lymph % (Auto) [place] % (Auto) Lymph # [place] # Baso # Seg Neutrophils % Seg Neuts % (Manual) Lymphocytes % (Manual) Monocytes % (Manual) Nucleated RBC % Seg Neutrophils # Seg Neutrophils # Man Lymphocytes # (Manual) Monocytes # (Manual) PT INR APTT Fibrinogen Heparin Anti-Xa Level POC ABG pH POC ABG pCO2 POC ABG pO2 POC Potassium POC Chloride Sodium Potassium Chloride Carbon Dioxide 20 L POC BUN BUN 55 H Creatinine 4.2 H Glucose 120 H POC Glucose 146 H 146 H Calcium 7.5 L Magnesium Crossmatch 06/26/16 06/26/16 06/26/16 06:30 11:38 16:45 WBC RBC Hgb POC Hgb Hct POC Hct MCH MCHC RDW Plt Count Lymph % (Auto) [place] % (Auto) Lymph # [place] # Baso # Seg Neutrophils % Seg Neuts % (Manual) Lymphocytes % (Manual) Monocytes % (Manual) Nucleated RBC % Seg Neutrophils # Seg Neutrophils # Man Lymphocytes # (Manual) Monocytes # (Manual) PT INR APTT Fibrinogen Heparin Anti-Xa Level POC ABG pH POC ABG pCO2 POC ABG pO2 POC Potassium POC Chloride Sodium Potassium Chloride Carbon Dioxide POC BUN BUN Creatinine Glucose POC Glucose 128 H 143 H 121 H Calcium Magnesium Crossmatch 06/26/16 06/26/16 06/27/16 22:57 22:57 00:47 WBC RBC Hgb 8.4 L POC Hgb Hct 25.1 L POC Hct MCH MCHC RDW Plt Count Lymph % (Auto) [place] % (Auto) Lymph # [place] # Baso # Seg Neutrophils % Seg Neuts % (Manual) Lymphocytes % (Manual) Monocytes % (Manual) Nucleated RBC % Seg Neutrophils # Seg Neutrophils # Man Lymphocytes # (Manual) Monocytes # (Manual) PT 19.9 H INR 1.69 H APTT Fibrinogen Heparin Anti-Xa Level POC ABG pH POC ABG pCO2 POC ABG pO2 POC Potassium POC Chloride Sodium Potassium Chloride Carbon Dioxide POC BUN BUN Creatinine Glucose POC Glucose 110 H Calcium Magnesium Crossmatch 06/27/16 06/27/16 06/27/16 05:43 05:43 06:40 WBC RBC Hgb POC Hgb Hct POC Hct MCH MCHC RDW Plt Count Lymph % (Auto) [place] % (Auto) Lymph # [place] # Baso # Seg Neutrophils % Seg Neuts % (Manual) Lymphocytes % (Manual) Monocytes % (Manual) Nucleated RBC % Seg Neutrophils # Seg Neutrophils # Man Lymphocytes # (Manual) Monocytes # (Manual) PT INR APTT Fibrinogen Heparin Anti-Xa Level 2.00 H POC ABG pH POC ABG pCO2 POC ABG pO2 POC Potassium POC Chloride Sodium Potassium Chloride Carbon Dioxide 20 L POC BUN BUN 58 H Creatinine 4.8 H Glucose POC Glucose 109 H Calcium 8.1 L Magnesium Crossmatch 06/27/16 06/27/16 06/27/16 08:15 16:46 17:47 WBC RBC Hgb POC Hgb Hct POC Hct MCH MCHC RDW Plt Count Lymph % (Auto) Jerome % (Auto) Lymph # Jerome # Baso # Seg Neutrophils % Seg Neuts % (Manual) Lymphocytes % (Manual) Monocytes % (Manual) Nucleated RBC % Seg Neutrophils # Seg Neutrophils # Man Lymphocytes # (Manual) Monocytes # (Manual) PT INR APTT Fibrinogen Heparin Anti-Xa Level > 2.00 H 1.87 H POC ABG pH POC ABG pCO2 POC ABG pO2 POC Potassium POC Chloride Sodium Potassium Chloride Carbon Dioxide POC BUN BUN Creatinine Glucose POC Glucose 231 H Calcium Magnesium Crossmatch 06/27/16 06/27/16 06/28/16 21:23 23:54 06:27 WBC RBC Hgb POC Hgb Hct POC Hct MCH MCHC RDW Plt Count Lymph % (Auto) Jerome % (Auto) Lymph # Jerome # Baso # Seg Neutrophils % Seg Neuts % (Manual) Lymphocytes % (Manual) Monocytes % (Manual) Nucleated RBC % Seg Neutrophils # Seg Neutrophils # Man Lymphocytes # (Manual) Monocytes # (Manual) PT INR APTT Fibrinogen Heparin Anti-Xa Level 1.70 H POC ABG pH POC ABG pCO2 POC ABG pO2 POC Potassium POC Chloride Sodium Potassium Chloride Carbon Dioxide POC BUN BUN 62 H Creatinine 4.5 H Glucose 111 H POC Glucose 122 H Calcium 8.3 L Magnesium Crossmatch 06/28/16 06/28/16 06/28/16 06:27 11:47 14:14 WBC RBC Hgb 7.7 L POC Hgb Hct 22.9 L POC Hct MCH MCHC RDW Plt Count Lymph % (Auto) Jerome % (Auto) Lymph # Jerome # Baso # Seg Neutrophils % Seg Neuts % (Manual) Lymphocytes % (Manual) Monocytes % (Manual) Nucleated RBC % Seg Neutrophils # Seg Neutrophils # Man Lymphocytes # (Manual) Monocytes # (Manual) PT INR APTT Fibrinogen Heparin Anti-Xa Level POC ABG pH 7.461 H POC ABG pCO2 31.9 L POC ABG pO2 73 L POC Potassium POC Chloride Sodium Potassium Chloride Carbon Dioxide POC BUN BUN Creatinine Glucose POC Glucose 155 H Calcium Magnesium Crossmatch 06/28/16 06/28/16 06/28/16 16:27 20:47 22:59 WBC RBC Hgb POC Hgb Hct POC Hct MCH MCHC RDW Plt Count Lymph % (Auto) Jerome % (Auto) Lymph # Jerome # Baso # Seg Neutrophils % Seg Neuts % (Manual) Lymphocytes % (Manual) Monocytes % (Manual) Nucleated RBC % Seg Neutrophils # Seg Neutrophils # Man Lymphocytes # (Manual) Monocytes # (Manual) PT INR APTT Fibrinogen Heparin Anti-Xa Level 1.16 H POC ABG pH POC ABG pCO2 POC ABG pO2 POC Potassium POC Chloride Sodium Potassium Chloride Carbon Dioxide POC BUN BUN Creatinine Glucose POC Glucose 193 H 126 H Calcium Magnesium Crossmatch 06/29/16 06/29/16 06/29/16 05:51 09:10 09:10 WBC RBC Hgb POC Hgb Hct POC Hct MCH MCHC RDW Plt Count Lymph % (Auto) Jerome % (Auto) Lymph # Jerome # Baso # Seg Neutrophils % Seg Neuts % (Manual) Lymphocytes % (Manual) Monocytes % (Manual) Nucleated RBC % Seg Neutrophils # Seg Neutrophils # Man Lymphocytes # (Manual) Monocytes # (Manual) PT INR APTT Fibrinogen Heparin Anti-Xa Level 0.92 H POC ABG pH POC ABG pCO2 POC ABG pO2 POC Potassium POC Chloride Sodium Potassium Chloride Carbon Dioxide POC BUN BUN 53 H Creatinine 3.7 H Glucose 139 H POC Glucose 121 H Calcium 8.2 L Magnesium Crossmatch 06/29/16 06/30/16 06/30/16 21:22 05:09 08:07 WBC RBC Hgb 7.3 L POC Hgb Hct 21.9 L POC Hct MCH MCHC RDW Plt Count Lymph % (Auto) Jerome % (Auto) Lymph # Jerome # Baso # Seg Neutrophils % Seg Neuts % (Manual) Lymphocytes % (Manual) Monocytes % (Manual) Nucleated RBC % Seg Neutrophils # Seg Neutrophils # Man Lymphocytes # (Manual) Monocytes # (Manual) PT INR APTT Fibrinogen Heparin Anti-Xa Level POC ABG pH POC ABG pCO2 POC ABG pO2 POC Potassium POC Chloride Sodium Potassium Chloride Carbon Dioxide POC BUN BUN Creatinine Glucose POC Glucose 108 H 106 H Calcium Magnesium Crossmatch 06/30/16 06/30/16 06/30/16 10:48 12:13 16:48 WBC RBC Hgb POC Hgb Hct POC Hct MCH MCHC RDW Plt Count Lymph % (Auto) Jerome % (Auto) Lymph # Jerome # Baso # Seg Neutrophils % Seg Neuts % (Manual) Lymphocytes % (Manual) Monocytes % (Manual) Nucleated RBC % Seg Neutrophils # Seg Neutrophils # Man Lymphocytes # (Manual) Monocytes # (Manual) PT INR APTT Fibrinogen Heparin Anti-Xa Level POC ABG pH POC ABG pCO2 POC ABG pO2 POC Potassium POC Chloride Sodium Potassium Chloride Carbon Dioxide POC BUN BUN 46 H Creatinine 3.0 H Glucose POC Glucose 153 H 152 H Calcium Magnesium Crossmatch 06/30/16 07/01/16 07/01/16 21:47 05:47 07:44 WBC 19.8 H RBC 2.45 L Hgb 7.2 L POC Hgb Hct 22.2 L POC Hct MCH MCHC RDW Plt Count 481 H Lymph % (Auto) 5.5 L Jerome % (Auto) Lymph # 1.1 L Jerome # 1.4 H Baso # Seg Neutrophils % 86.8 H Seg Neuts % (Manual) Lymphocytes % (Manual) Monocytes % (Manual) Nucleated RBC % Seg Neutrophils # 17.1 H Seg Neutrophils # Man Lymphocytes # (Manual) Monocytes # (Manual) PT INR APTT Fibrinogen Heparin Anti-Xa Level POC ABG pH POC ABG pCO2 POC ABG pO2 POC Potassium POC Chloride Sodium Potassium Chloride Carbon Dioxide POC BUN BUN Creatinine Glucose POC Glucose 162 H 124 H Calcium Magnesium Crossmatch 07/01/16 07/01/16 07/01/16 07:44 11:55 16:16 WBC RBC Hgb POC Hgb Hct POC Hct MCH MCHC RDW Plt Count Lymph % (Auto) Jerome % (Auto) Lymph # Jerome # Baso # Seg Neutrophils % Seg Neuts % (Manual) Lymphocytes % (Manual) Monocytes % (Manual) Nucleated RBC % Seg Neutrophils # Seg Neutrophils # Man Lymphocytes # (Manual) Monocytes # (Manual) PT INR APTT Fibrinogen Heparin Anti-Xa Level POC ABG pH POC ABG pCO2 POC ABG pO2 POC Potassium POC Chloride Sodium Potassium 3.1 L Chloride Carbon Dioxide POC BUN BUN 38 H Creatinine 2.2 H Glucose 114 H POC Glucose 114 H 143 H Calcium Magnesium Crossmatch 07/01/16 07/02/16 07/02/16 21:42 05:40 06:46 WBC 18.1 H RBC 2.45 L Hgb 7.3 L POC Hgb Hct 21.8 L POC Hct MCH MCHC RDW Plt Count 490 H Lymph % (Auto) 6.1 L Jerome % (Auto) Lymph # 1.1 L Jerome # 1.1 H Baso # 0.2 H Seg Neutrophils % 86.0 H Seg Neuts % (Manual) Lymphocytes % (Manual) Monocytes % (Manual) Nucleated RBC % Seg Neutrophils # 15.6 H Seg Neutrophils # Man Lymphocytes # (Manual) Monocytes # (Manual) PT INR APTT Fibrinogen Heparin Anti-Xa Level POC ABG pH POC ABG pCO2 POC ABG pO2 POC Potassium POC Chloride Sodium Potassium Chloride Carbon Dioxide POC BUN BUN Creatinine Glucose POC Glucose 135 H 135 H Calcium Magnesium Crossmatch 07/02/16 07/02/16 07/02/16 06:46 06:49 11:23 WBC RBC Hgb POC Hgb Hct POC Hct MCH MCHC RDW Plt Count Lymph % (Auto) Jerome % (Auto) Lymph # Jerome # Baso # Seg Neutrophils % Seg Neuts % (Manual) Lymphocytes % (Manual) Monocytes % (Manual) Nucleated RBC % Seg Neutrophils # Seg Neutrophils # Man Lymphocytes # (Manual) Monocytes # (Manual) PT INR APTT Fibrinogen Heparin Anti-Xa Level POC ABG pH POC ABG pCO2 POC ABG pO2 POC Potassium POC Chloride Sodium Potassium 2.8 L* Chloride Carbon Dioxide POC BUN BUN 30 H Creatinine 1.8 H Glucose 121 H POC Glucose 121 H Calcium 8.1 L Magnesium 1.3 L Crossmatch 07/02/16 07/02/16 07/03/16 17:02 21:31 05:35 WBC RBC Hgb POC Hgb Hct POC Hct MCH MCHC RDW Plt Count Lymph % (Auto) Jerome % (Auto) Lymph # Jerome # Baso # Seg Neutrophils % Seg Neuts % (Manual) Lymphocytes % (Manual) Monocytes % (Manual) Nucleated RBC % Seg Neutrophils # Seg Neutrophils # Man Lymphocytes # (Manual) Monocytes # (Manual) PT INR APTT Fibrinogen Heparin Anti-Xa Level POC ABG pH POC ABG pCO2 POC ABG pO2 POC Potassium POC Chloride Sodium Potassium Chloride Carbon Dioxide POC BUN BUN Creatinine Glucose POC Glucose 121 H 159 H 149 H Calcium Magnesium Crossmatch 07/03/16 07/03/16 07/03/16 06:45 06:45 06:45 WBC 16.8 H RBC 2.21 L Hgb 6.5 L POC Hgb Hct 19.4 L* POC Hct MCH MCHC RDW Plt Count 503 H Lymph % (Auto) 6.4 L Jerome % (Auto) Lymph # 1.1 L Jerome # 1.1 H Baso # Seg Neutrophils % 85.6 H Seg Neuts % (Manual) Lymphocytes % (Manual) Monocytes % (Manual) Nucleated RBC % Seg Neutrophils # 14.4 H Seg Neutrophils # Man Lymphocytes # (Manual) Monocytes # (Manual) PT INR APTT Fibrinogen Heparin Anti-Xa Level POC ABG pH POC ABG pCO2 POC ABG pO2 POC Potassium POC Chloride Sodium Potassium 2.9 L* Chloride Carbon Dioxide POC BUN BUN 21 H Creatinine 1.6 H Glucose 126 H POC Glucose Calcium 8.0 L Magnesium 1.6 L Crossmatch 07/03/16 07/03/16 07/03/16 12:54 19:00 20:01 WBC RBC Hgb POC Hgb Hct POC Hct MCH MCHC RDW Plt Count Lymph % (Auto) Jerome % (Auto) Lymph # Jerome # Baso # Seg Neutrophils % Seg Neuts % (Manual) Lymphocytes % (Manual) Monocytes % (Manual) Nucleated RBC % Seg Neutrophils # Seg Neutrophils # Man Lymphocytes # (Manual) Monocytes # (Manual) PT INR APTT Fibrinogen Heparin Anti-Xa Level POC ABG pH 7.302 L POC ABG pCO2 49.8 H POC ABG pO2 422 H POC Potassium POC Chloride Sodium Potassium Chloride Carbon Dioxide POC BUN BUN Creatinine Glucose POC Glucose 129 H Calcium Magnesium Crossmatch See Detail 07/03/16 07/04/16 07/04/16 23:09 04:30 04:30 WBC 19.6 H RBC 3.21 L Hgb 9.4 L POC Hgb Hct 28.2 L POC Hct MCH MCHC RDW Plt Count Lymph % (Auto) 6.5 L Jerome % (Auto) Lymph # Jerome # 1.2 H Baso # Seg Neutrophils % 86.4 H Seg Neuts % (Manual) Lymphocytes % (Manual) Monocytes % (Manual) Nucleated RBC % Seg Neutrophils # 16.9 H Seg Neutrophils # Man Lymphocytes # (Manual) Monocytes # (Manual) PT INR APTT Fibrinogen Heparin Anti-Xa Level POC ABG pH POC ABG pCO2 POC ABG pO2 POC Potassium POC Chloride Sodium Potassium 3.5 L D Chloride 111.2 H Carbon Dioxide 20 L POC BUN BUN 18 H Creatinine Glucose POC Glucose 111 H Calcium 7.0 L Magnesium Crossmatch 07/04/16 05:44 WBC RBC Hgb POC Hgb Hct POC Hct MCH MCHC RDW Plt Count Lymph % (Auto) Jerome % (Auto) Lymph # Jerome # Baso # Seg Neutrophils % Seg Neuts % (Manual) Lymphocytes % (Manual) Monocytes % (Manual) Nucleated RBC % Seg Neutrophils # Seg Neutrophils # Man Lymphocytes # (Manual) Monocytes # (Manual) PT INR APTT Fibrinogen Heparin Anti-Xa Level POC ABG pH 7.465 H POC ABG pCO2 29.5 L POC ABG pO2 110 H POC Potassium POC Chloride Sodium Potassium Chloride Carbon Dioxide POC BUN BUN Creatinine Glucose POC Glucose Calcium Magnesium Crossmatch Chest x-ray: report reviewed, image reviewed
--- NOTE | 2016-07-04 10:57 | Progress Note ---
Assessment and Plan Postoperative day 1 status post right femoral endarterectomy with patch angioplasty and completion angiogram. Right foot is well vascularized and in no danger at this point. Right calf is soft with no evidence of compartment syndrome. Stable left lower extremity well perfused. Status post left femoral endarterectomy and left iliac stenting and left femoral-popliteal bypass. The incisions are stable. Improving renal function. Patient is intubated but appears to be able to be extubated. Hemodynamically stable. H&H stable. Plan: Extubation as per pulmonary. Restart Bakari. Subjective Principal diagnosis: Acute Hypoxemic Respiratory Failure; s/p cardiopulmonary arrest Interval history: Patient was intubated but awake. Able to move foot Objective - Exam Narrative Exam: Right foot warm. Easily dopplerable dorsalis pedis pulse. Left foot warm. Palpable left dorsalis pedis pulse. The right groin incision well approximated. No hematoma. Left leg incisions are unchanged. - Constitutional Vitals: Vital Signs - 12hr 07/03/16 07/03/16 07/03/16 23:00 23:16 23:30 Pulse Rate 108 H 103 H 101 H Pulse Rate [ Apical] Respiratory 18 22 21 Rate Blood Pressure 134/61 99/55 117/64 O2 Sat by Pulse 98 98 97 Oximetry 07/03/16 07/04/16 07/04/16 23:46 00:00 00:16 Pulse Rate 117 H 103 H 98 H Pulse Rate [ Apical] Respiratory 28 H 22 20 Rate Blood Pressure 117/64 123/70 123/70 O2 Sat by Pulse 99 99 Oximetry 07/04/16 07/04/16 07/04/16 00:30 00:42 00:46 Pulse Rate 108 H 108 H 110 H Pulse Rate [ Apical] Respiratory 21 22 Rate Blood Pressure 123/67 123/67 123/67 O2 Sat by Pulse 99 98 98 Oximetry 07/04/16 07/04/16 07/04/16 01:00 01:12 01:16 Pulse Rate 111 H 111 H 111 H Pulse Rate [ Apical] Respiratory 24 25 H 22 Rate Blood Pressure 128/64 128/64 128/64 O2 Sat by Pulse 99 98 Oximetry 07/04/16 07/04/16 07/04/16 01:30 01:46 02:00 Pulse Rate 107 H 103 H 105 H Pulse Rate [ Apical] Respiratory 22 20 18 Rate Blood Pressure 128/72 128/72 119/70 O2 Sat by Pulse 100 99 Oximetry 07/04/16 07/04/16 07/04/16 02:16 02:30 02:46 Pulse Rate 111 H 106 H 103 H Pulse Rate [ Apical] Respiratory 20 20 19 Rate Blood Pressure 119/70 114/73 114/73 O2 Sat by Pulse 100 99 Oximetry 07/04/16 07/04/16 07/04/16 03:00 03:16 03:30 Pulse Rate 107 H 103 H 106 H Pulse Rate [ Apical] Respiratory 19 18 15 Rate Blood Pressure 100/64 100/64 101/59 O2 Sat by Pulse 100 100 99 Oximetry 07/04/16 07/04/16 07/04/16 03:46 04:00 04:16 Pulse Rate 104 H 106 H 105 H Pulse Rate [ Apical] Respiratory 16 18 13 Rate Blood Pressure 101/59 118/63 118/63 O2 Sat by Pulse 99 98 100 Oximetry 07/04/16 07/04/16 07/04/16 04:30 04:46 05:00 Pulse Rate 106 H 100 H 105 H Pulse Rate [ Apical] Respiratory 19 18 18 Rate Blood Pressure 100/59 100/59 109/60 O2 Sat by Pulse 99 99 Oximetry 07/04/16 07/04/16 07/04/16 05:16 05:19 05:30 Pulse Rate 109 H 107 H 106 H Pulse Rate [ Apical] Respiratory 16 15 19 Rate Blood Pressure 109/60 109/60 108/59 O2 Sat by Pulse 100 99 Oximetry 07/04/16 07/04/16 07/04/16 05:40 05:44 05:46 Pulse Rate 107 H 106 H 114 H Pulse Rate [ Apical] Respiratory 21 20 Rate Blood Pressure 108/59 108/59 108/59 O2 Sat by Pulse 100 97 100 Oximetry 07/04/16 07/04/16 07/04/16 06:00 06:16 06:30 Pulse Rate 105 H 104 H 102 H Pulse Rate [ Apical] Respiratory 19 16 22 Rate Blood Pressure 95/68 95/68 95/68 O2 Sat by Pulse 99 100 100 Oximetry 07/04/16 07/04/16 07/04/16 06:46 07:00 07:16 Pulse Rate 105 H 101 H 98 H Pulse Rate [ Apical] Respiratory 18 18 18 Rate Blood Pressure 118/67 124/67 124/67 O2 Sat by Pulse 100 100 100 Oximetry 07/04/16 07/04/16 07/04/16 07:30 07:46 08:00 Pulse Rate 99 H 99 H 105 H Pulse Rate [ Apical] Respiratory 18 17 17 Rate Blood Pressure 129/73 129/73 130/77 O2 Sat by Pulse 100 100 Oximetry 07/04/16 07/04/16 07/04/16 08:16 08:30 08:46 Pulse Rate 104 H 103 H 103 H Pulse Rate [ 103 H Apical] Respiratory 18 17 16 Rate Blood Pressure 130/77 139/76 139/76 O2 Sat by Pulse 100 100 100 Oximetry 07/04/16 07/04/16 07/04/16 08:47 09:00 09:16 Pulse Rate 103 H 97 H 104 H Pulse Rate [ Apical] Respiratory 18 11 L Rate Blood Pressure 139/75 137/73 137/73 O2 Sat by Pulse 100 100 Oximetry 07/04/16 07/04/16 09:30 09:46 Pulse Rate 108 H 105 H Pulse Rate [ Apical] Respiratory 19 15 Rate Blood Pressure 137/73 124/64 O2 Sat by Pulse 100 Oximetry - Labs CBC & Chem 7: 07/04/16 04:30 07/04/16 04:30 Labs: Abnormal lab results 07/03/16 07/03/16 07/03/16 Range/Units 12:54 19:00 20:01 WBC (4.5-11.0) K/mm3 RBC (3.65-5.03) M/mm3 Hgb (10.1-14.3) gm/dl Hct (30.3-42.9) % Lymph % (Auto) (13.4-35.0) % Summers # (0.0-0.8) K/mm3 Seg Neutrophils % (40.0-70.0) % Seg Neutrophils # (1.8-7.7) K/mm3 POC ABG pH 7.302 L (7.35-7.45) POC ABG pCO2 49.8 H (35-45) POC ABG pO2 422 H (80-105) Potassium (3.6-5.0) mmol/L Chloride (98-107) mmol/L Carbon Dioxide (22-30) mmol/L BUN (7-17) mg/dL POC Glucose 129 H (70-105) Calcium (8.4-10.2) mg/dL Crossmatch See Detail 07/03/16 07/04/16 07/04/16 Range/Units 23:09 04:30 04:30 WBC 19.6 H (4.5-11.0) K/mm3 RBC 3.21 L (3.65-5.03) M/mm3 Hgb 9.4 L (10.1-14.3) gm/dl Hct 28.2 L (30.3-42.9) % Lymph % (Auto) 6.5 L (13.4-35.0) % Summers # 1.2 H (0.0-0.8) K/mm3 Seg Neutrophils % 86.4 H (40.0-70.0) % Seg Neutrophils # 16.9 H (1.8-7.7) K/mm3 POC ABG pH (7.35-7.45) POC ABG pCO2 (35-45) POC ABG pO2 (80-105) Potassium 3.5 L D (3.6-5.0) mmol/L Chloride 111.2 H (98-107) mmol/L Carbon Dioxide 20 L (22-30) mmol/L BUN 18 H (7-17) mg/dL POC Glucose 111 H (70-105) Calcium 7.0 L (8.4-10.2) mg/dL Crossmatch 07/04/16 Range/Units 05:44 WBC (4.5-11.0) K/mm3 RBC (3.65-5.03) M/mm3 Hgb (10.1-14.3) gm/dl Hct (30.3-42.9) % Lymph % (Auto) (13.4-35.0) % Summers # (0.0-0.8) K/mm3 Seg Neutrophils % (40.0-70.0) % Seg Neutrophils # (1.8-7.7) K/mm3 POC ABG pH 7.465 H (7.35-7.45) POC ABG pCO2 29.5 L (35-45) POC ABG pO2 110 H (80-105) Potassium (3.6-5.0) mmol/L Chloride (98-107) mmol/L Carbon Dioxide (22-30) mmol/L BUN (7-17) mg/dL POC Glucose (70-105) Calcium (8.4-10.2) mg/dL Crossmatch
[2016-07-04] MEDS ORDERED: POTASSIUM CHLORIDE FEEDTUBE ONE (12:00)
[2016-07-04 12:58] LABS: ISTAT Base Excess -3; ISTAT HCO3 21.1; ISTAT PCO2 29.1 (35-45); ISTAT PH 7.468 (7.35-7.45); ISTAT PO2 39 (80-105); ISTAT SO2 78; ISTAT TCO2 22
[2016-07-04] MEDS ORDERED: PROTONIX IV SCH (14:00)
--- NOTE | 2016-07-04 14:32 | Vascular Lab Report ---
RIGHT LOWER EXTREMITY ARTERIAL DUPLEX: REASON FOR EXAM: Acute ischemia right lower extremity. COMMENTS ON THE RIGHT: Monophasic waveforms are seen proximally. Monophasic waveforms are seen distally. No flow identified in the common femoral or superficial femoral arteries. Severe diminished flow noted in the anterior tibial artery. No flow seen in the posterior tibial artery. Significant clot and plaque identified in the common femoral superficial femoral arteries. Findings are consistent with severely abnormal perfusion that may potentially signify limb threatening ischemia. Findings are inconsistent with the ability to heal distal wounds. 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 Clinical correlation recommended. If warranted an immediate intervention should be considered..
[2016-07-04] MEDS: KCL 10MEQ/100ML 100 ML IV SCH ×4 (14:57→18:50)
[2016-07-04] MEDS: PLAVIX PO SCH (15:11)
[2016-07-04] MEDS: TENORMIN PO SCH (15:11)
[2016-07-04] MEDS: FERROUS SULFATE PO SCH (15:12)
[2016-07-04] MEDS: MORPHINE IV PRN (15:32)
[2016-07-04 16:54] LABS: ISTAT Base Excess -3; ISTAT HCO3 20.9; ISTAT PCO2 31.1 (35-45); ISTAT PH 7.436 (7.35-7.45); ISTAT PO2 110 (80-105); ISTAT SO2 99; ISTAT TCO2 22
[2016-07-04 16:54] LABS: ISTAT Base Excess -3; ISTAT HCO3 21.4; ISTAT PCO2 33.1 (35-45); ISTAT PH 7.418 (7.35-7.45); ISTAT PO2 105 (80-105); ISTAT SO2 98; ISTAT TCO2 22
[2016-07-04] MEDS: PROTONIX PO SCH (17:09)
--- NOTE | 2016-07-04 17:23 | Progress Note ---
Assessment and Plan Impression: * Nonoliguric REJI secondary to ischemic ATN following cardiac arrest/hypovolemia * Anemia secondary to acute blood loss * Acute ischemic right leg secondary to acute right common femoral artery occlusion * Acute hypoxic respiratory failure - now extubated * Metabolic acidosis * Hypokalemia Plan: * Renal function remains stable * Diuresis prn * Daily lytes * Avoid nephrotoxins * Strict I/O * Will see prn Subjective Date of service: 07/04/16 Principal diagnosis: Acute Hypoxemic Respiratory Failure; s/p cardiopulmonary arrest Interval history: Patient is now extubated. She has no complaints. Denies SOB. Objective - Vital Signs Vital signs: Vital Signs - 12hr 07/04/16 07/04/16 07/04/16 05:30 05:40 05:44 Temperature Pulse Rate 106 H 107 H 106 H Pulse Rate [ Apical] Respiratory 19 21 Rate Blood Pressure 108/59 108/59 108/59 O2 Sat by Pulse 100 97 Oximetry 07/04/16 07/04/16 07/04/16 05:46 06:00 06:16 Temperature Pulse Rate 114 H 105 H 104 H Pulse Rate [ Apical] Respiratory 20 19 16 Rate Blood Pressure 108/59 95/68 95/68 O2 Sat by Pulse 100 99 100 Oximetry 07/04/16 07/04/16 07/04/16 06:30 06:46 07:00 Temperature Pulse Rate 102 H 105 H 101 H Pulse Rate [ Apical] Respiratory 22 18 18 Rate Blood Pressure 95/68 118/67 124/67 O2 Sat by Pulse 100 100 100 Oximetry 07/04/16 07/04/16 07/04/16 07:16 07:30 07:46 Temperature Pulse Rate 98 H 99 H 99 H Pulse Rate [ Apical] Respiratory 18 18 17 Rate Blood Pressure 124/67 129/73 129/73 O2 Sat by Pulse 100 100 Oximetry 07/04/16 07/04/16 07/04/16 08:00 08:16 08:30 Temperature 99.7 F H Pulse Rate 105 H 104 H 103 H Pulse Rate [ 103 H Apical] Respiratory 17 18 17 Rate Blood Pressure 130/77 130/77 139/76 O2 Sat by Pulse 100 100 100 Oximetry 07/04/16 07/04/16 07/04/16 08:46 08:47 09:00 Temperature Pulse Rate 103 H 103 H 97 H Pulse Rate [ Apical] Respiratory 16 18 Rate Blood Pressure 139/76 139/75 137/73 O2 Sat by Pulse 100 100 100 Oximetry 07/04/16 07/04/16 07/04/16 09:16 09:30 09:46 Temperature Pulse Rate 104 H 108 H 105 H Pulse Rate [ Apical] Respiratory 11 L 19 15 Rate Blood Pressure 137/73 137/73 124/64 O2 Sat by Pulse 100 Oximetry 07/04/16 07/04/16 07/04/16 09:56 10:00 10:16 Temperature Pulse Rate 96 H 97 H 100 H Pulse Rate [ Apical] Respiratory 16 16 16 Rate Blood Pressure 124/64 132/69 132/69 O2 Sat by Pulse 100 100 Oximetry 07/04/16 07/04/16 07/04/16 10:30 10:46 11:00 Temperature Pulse Rate 102 H 99 H 102 H Pulse Rate [ Apical] Respiratory 13 15 16 Rate Blood Pressure 117/81 117/81 133/72 O2 Sat by Pulse 100 100 100 Oximetry 07/04/16 07/04/16 07/04/16 11:16 11:29 11:30 Temperature Pulse Rate 99 H 101 H 102 H Pulse Rate [ Apical] Respiratory 14 16 Rate Blood Pressure 133/72 144/67 144/67 O2 Sat by Pulse 100 100 100 Oximetry 07/04/16 07/04/16 07/04/16 11:46 12:00 12:16 Temperature 99.9 F H Pulse Rate 96 H 107 H 101 H Pulse Rate [ 101 H Apical] Respiratory 15 19 17 Rate Blood Pressure 144/67 121/68 144/67 O2 Sat by Pulse 100 100 100 Oximetry 07/04/16 07/04/16 07/04/16 12:30 12:46 13:00 Temperature Pulse Rate 98 H 102 H 103 H Pulse Rate [ Apical] Respiratory 15 17 16 Rate Blood Pressure 133/69 133/69 129/69 O2 Sat by Pulse 100 100 100 Oximetry 07/04/16 07/04/16 07/04/16 13:16 13:30 13:46 Temperature Pulse Rate 104 H 104 H 101 H Pulse Rate [ Apical] Respiratory 17 16 16 Rate Blood Pressure 133/69 142/75 129/69 O2 Sat by Pulse 100 100 99 Oximetry 07/04/16 07/04/16 07/04/16 14:00 14:16 14:30 Temperature Pulse Rate 89 104 H 100 H Pulse Rate [ Apical] Respiratory 15 15 18 Rate Blood Pressure 130/60 130/60 127/68 O2 Sat by Pulse 98 100 98 Oximetry 07/04/16 07/04/16 07/04/16 14:45 15:00 16:02 Temperature Pulse Rate 100 H 103 H Pulse Rate [ Apical] Respiratory 18 19 17 Rate Blood Pressure 130/60 119/69 O2 Sat by Pulse 100 97 Oximetry 07/04/16 17:18 Temperature Pulse Rate Pulse Rate [ Apical] Respiratory Rate Blood Pressure O2 Sat by Pulse 100 Oximetry - General Appearance General appearance: well-developed, well-nourished EENT: ATNC Respiratory: Present: Clear to Ascultation Cardiology: regular, S1S2 Gastrointestinal: normal Integumentary: no rash, warm and dry Neurologic: no focal deficit Musculoskeletal: other (no edema) Psychiatric: cooperative - Lab 07/06/16 04:40 07/06/16 04:40 Most recent lab results Calcium 7.0 mg/dL (8.4-10.2) L 07/04/16 04:30 Magnesium 1.6 mg/dL (1.7-2.3) L 07/03/16 06:45
[2016-07-05] MEDS: NACL 0.9% 1000 ML 1,000 ML IV SCH ×3 (00:12→13:39)
[2016-07-05] MEDS: MORPHINE IV PRN ×4 (00:49→17:17)
[2016-07-05 05:25] LABS: Basophils % (Auto) 0.2 % (0.0-1.8); Eosinophils % (Auto) 0.6 % (0.0-4.3); Hematocrit 30.7 % (30.3-42.9); Hemoglobin 10.1 gm/dl (10.1-14.3); Mean Corpuscular HGB Conc 33 % (30-34); Mean Corpuscular Hemoglobin 29 pg (28-32); Mean Corpuscular Volume 89 fl (79-97); Platelet Count 365 K/mm3 (140-440); Red Blood Count 3.44 M/mm3 (3.65-5.03); Red Cell Distribution Width 14.7 % (13.2-15.2); White Blood Count 16.2 K/mm3 (4.5-11.0)
[2016-07-05] MEDS: ELIQUIS PO SCH ×3 (05:37→23:30)
[2016-07-05 05:45] LABS: BUN/Creatinine Ratio 14.54; Blood Urea Nitrogen 16 mg/dL (7-17); Calcium 7.8 mg/dL (8.4-10.2); Carbon Dioxide 22 mmol/L (22-30); Chloride 109.1 mmol/L (98-107); Glucose 135 mg/dL (65-100); Potassium 3.5 mmol/L (3.6-5.0); Sodium 146 mmol/L (137-145)
[2016-07-05 05:56] LABS: Anion Gap 18 mmol/L
--- NOTE | 2016-07-05 09:57 | XRay Report ---
AP CHEST :07/05/16 CLINICAL: Followup respiratory failure. COMPARISON:07/04/16 FINDINGS: The endotracheal tube is been removed. Stable cardiomegaly and central vascular congestion. Continued mild bilateral reticular interstitial opacities. Continued opacification in the left lower lobe with silhouetting of the left hemidiaphragm and opacification of the left costophrenic angle. IMPRESSION: CHF with mild pulmonary edema and probable left lower lobe atelectasis. No significant change after extubation.
[2016-07-05] MEDS: POTASSIUM CHLORIDE FEEDTUBE SCH (10:39)
[2016-07-05] MEDS: PLAVIX PO SCH (10:49)
[2016-07-05] MEDS: FERROUS SULFATE PO SCH (10:49)
[2016-07-05] MEDS: PROTONIX PO SCH (10:50)
[2016-07-05] MEDS: TENORMIN PO SCH (10:52)
[2016-07-05] MEDS: BABY ASPIRIN PO SCH (10:52)
[2016-07-05] MEDS: THERMAZENE 50 GRAM TP SCH (11:40)
--- NOTE | 2016-07-05 11:50 | Progress Note ---
Assessment and Plan Patient extubated. Placed on 2 litres nasal canula. Patient tolerating good.Patient presently on room air. O2 satuaration 100%.Patient awake and oriented.No complaint of chest pain or shortness of breath. - Patient Problems (1) Acute respiratory failure Current Visit: Yes Status: Acute Plan to address problem: Patient presently undergoing spontaneous breathing trials. Pressure support 10 cm H20 and FIO2 30%. 06/27/16 Respiratory status improved. No acute respiratory distress. On room air . O2 satuaration 100%. 06/30/16 Patient is on room air. No respiratory distress. O2 satuaration 97%. 07/04/16 Patient presently on pressure support 10 cm H20, FIO2 30% Patient tolerating good. Obtaining blood gases, If they are may extubate her. 07/05/16 Patient extubated. Presently on room air , tolerating good. O2 satuaration 100%. Incentive spirometry. xopenex aerosol treatments q 8 hours prn for shortness of breath and wheezing. (2) Cardiopulmonary arrest with successful resuscitation Current Visit: Yes Status: Acute Plan to address problem: Patient resuciated . Patient is on mechanical ventilation and vasopressors. 06/27/16 Improved. alert,awake following commands. !08/31/15 Patient alert,awake and following commands. 07/04/16 Patient alert, awake following commands. (3) Left lower lobe pneumonia Current Visit: Yes Status: Acute Plan to address problem: Patient running low grade temp. Patient has leukocytosis. Chest xray showing left lower lobe infiltrate, Obtaining blood cultures Tracheal aspirate for gram stain and C&S. Urin for U/A C&S. Starting on Zosyn. 06/27/16 Patient afebrile Repeating chest xray. 06/30/16 Repeat chest xray reported increased left pleural effusion. Obtaining ultrasound of chest. 07/04/16 Reported small left effusion. (4) Atherosclerosis of [place] arteries of extremity with intermittent claudication Current Visit: Yes Status: Acute Plan to address problem: Management as per vascular surgery. (5) Metabolic acidosis Current Visit: Yes Status: Acute Plan to address problem: Obtaining Lactate level. Given I/V Bicarb. 06/27/16 Improving. 06/30/16 Metabolic acidosis improved. (6) ATN (acute tubular necrosis) Current Visit: Yes Status: Acute Plan to address problem: Nephrology consulted. Management as per nephrology. Subjective Date of service: 07/05/16 Principal diagnosis: Acute Hypoxemic Respiratory Failure; s/p cardiopulmonary arrest Interval history: Patient extubated. Placed on 2 litres nasal canula. Patient tolerating good.Patient presently on room air. O2 satuaration 100%.Patient awake and oriented.No complaint of chest pain or shortness of breath. Objective Vital Signs - 12hr 07/04/16 07/04/16 07/05/16 23:45 23:59 00:00 Temperature 99.8 F H Pulse Rate 114 H 110 H Pulse Rate [ 116 H Apical] Respiratory 18 33 H Rate Blood Pressure 151/74 151/74 O2 Sat by Pulse 100 99 Oximetry 07/05/16 07/05/16 07/05/16 00:01 00:15 00:31 Temperature Pulse Rate 111 H 114 H 115 H Pulse Rate [ Apical] Respiratory 29 H 26 H 15 Rate Blood Pressure 151/74 151/74 151/74 O2 Sat by Pulse 99 100 99 Oximetry 07/05/16 07/05/16 07/05/16 00:45 01:01 01:15 Temperature Pulse Rate 110 H 109 H 102 H Pulse Rate [ Apical] Respiratory 28 H 21 26 H Rate Blood Pressure 151/74 151/74 148/71 O2 Sat by Pulse 99 100 99 Oximetry 07/05/16 07/05/16 07/05/16 01:31 01:45 02:00 Temperature Pulse Rate 102 H 106 H 102 H Pulse Rate [ Apical] Respiratory 29 H 26 H 22 Rate Blood Pressure 139/74 139/74 164/75 O2 Sat by Pulse 98 99 100 Oximetry 07/05/16 07/05/16 07/05/16 02:15 02:30 02:45 Temperature Pulse Rate 111 H 102 H 115 H Pulse Rate [ Apical] Respiratory 24 24 26 H Rate Blood Pressure 164/75 160/71 160/71 O2 Sat by Pulse 100 99 100 Oximetry 07/05/16 07/05/16 07/05/16 03:00 03:15 03:30 Temperature Pulse Rate 108 H 105 H 106 H Pulse Rate [ Apical] Respiratory 22 23 25 H Rate Blood Pressure 160/76 160/76 169/79 O2 Sat by Pulse 100 99 100 Oximetry 07/05/16 07/05/16 07/05/16 03:45 04:00 04:15 Temperature Pulse Rate 109 H 106 H 113 H Pulse Rate [ 90 Apical] Respiratory 29 H 19 25 H Rate Blood Pressure 169/79 147/73 147/73 O2 Sat by Pulse 97 100 100 Oximetry 07/05/16 07/05/16 07/05/16 04:30 04:45 05:00 Temperature Pulse Rate 103 H 99 H 109 H Pulse Rate [ Apical] Respiratory 29 H 25 H 21 Rate Blood Pressure 170/80 147/73 151/74 O2 Sat by Pulse 99 99 100 Oximetry 07/05/16 07/05/16 07/05/16 05:15 05:30 05:45 Temperature Pulse Rate 106 H 97 H 99 H Pulse Rate [ Apical] Respiratory 25 H 20 25 H Rate Blood Pressure 151/74 154/65 154/65 O2 Sat by Pulse 99 100 99 Oximetry 07/05/16 07/05/16 06:00 10:52 Temperature Pulse Rate 98 H 107 H Pulse Rate [ Apical] Respiratory 20 Rate Blood Pressure 161/74 162/68 O2 Sat by Pulse 97 Oximetry Constitutional: no acute distress, alert, other (Resting on mechanical ventilation.) Eyes: non-icteric ENT: oropharynx moist Neck: supple, no lymphadenopathy Effort: normal Ascultation: Bilateral: diminished breath sounds, rhonchi (posterior bases) Cardiovascular: regular rate and rhythm Gastrointestinal: normoactive bowel sounds, soft, non-tender, non-distended Integumentary: other (weak LLExt) Extremities: no cyanosis, edema, other (LLExt pulses diminished but leg warm) Neurologic: normal mental status, non-focal exam, pupils equal and round, motor strength normal and Psychiatric: mood appropriate, affect normal CBC and BMP: 07/05/16 04:19 07/05/16 04:19 ABG, PT/INR, D-dimer: ABG POC ABG pH 7.436 (7.35-7.45) 07/04/16 16:49 POC ABG pCO2 31.1 (35-45) L 07/04/16 16:49 POC ABG pO2 110 (80-105) H 07/04/16 16:49 POC ABG HCO3 20.9 07/04/16 16:49 POC ABG Total CO2 22 07/04/16 16:49 POC ABG O2 Sat 99 07/04/16 16:49 PT/INR, D-dimer PT 19.9 Sec. (12.2-14.9) H 06/26/16 22:57 INR 1.69 (0.87-1.13) H 06/26/16 22:57 Abnormal lab findings: Abnormal Labs 06/13/16 06/13/16 06/13/16 09:45 09:45 09:45 WBC RBC Hgb POC Hgb Hct POC Hct MCH 25 L MCHC RDW 15.8 H Plt Count Lymph % (Auto) [place] % (Auto) 8.1 H Lymph # [place] # Baso # Seg Neutrophils % Seg Neuts % (Manual) Lymphocytes % (Manual) Monocytes % (Manual) Nucleated RBC % Seg Neutrophils # Seg Neutrophils # Man Lymphocytes # (Manual) Monocytes # (Manual) PT INR APTT Fibrinogen 522 H Heparin Anti-Xa Level POC ABG pH POC ABG pCO2 POC ABG pO2 POC Potassium POC Chloride Sodium Potassium Chloride Carbon Dioxide POC BUN BUN Creatinine Glucose POC Glucose Calcium 10.3 H Magnesium Crossmatch 06/13/16 06/13/16 06/13/16 09:45 20:14 20:15 WBC RBC Hgb POC Hgb Hct POC Hct MCH MCHC RDW Plt Count Lymph % (Auto) [place] % (Auto) Lymph # [place] # Baso # Seg Neutrophils % Seg Neuts % (Manual) Lymphocytes % (Manual) Monocytes % (Manual) Nucleated RBC % Seg Neutrophils # Seg Neutrophils # Man Lymphocytes # (Manual) Monocytes # (Manual) PT INR APTT 103.8 H* Fibrinogen Heparin Anti-Xa Level 0.72 H POC ABG pH POC ABG pCO2 POC ABG pO2 POC Potassium POC Chloride Sodium Potassium Chloride Carbon Dioxide POC BUN BUN Creatinine Glucose POC Glucose Calcium Magnesium Crossmatch See Detail 06/14/16 06/14/16 06/14/16 07:44 10:18 19:09 WBC RBC Hgb POC Hgb Hct POC Hct MCH 26 L MCHC RDW 15.8 H Plt Count Lymph % (Auto) [place] % (Auto) 9.1 H Lymph # [place] # Baso # Seg Neutrophils % Seg Neuts % (Manual) Lymphocytes % (Manual) Monocytes % (Manual) Nucleated RBC % Seg Neutrophils # Seg Neutrophils # Man Lymphocytes # (Manual) Monocytes # (Manual) PT INR APTT Fibrinogen Heparin Anti-Xa Level 0.76 H POC ABG pH POC ABG pCO2 POC ABG pO2 POC Potassium POC Chloride Sodium Potassium Chloride Carbon Dioxide POC BUN BUN Creatinine Glucose POC Glucose 106 H Calcium Magnesium Crossmatch 06/15/16 06/15/16 06/15/16 04:43 04:43 22:49 WBC RBC Hgb 9.2 L POC Hgb Hct 28.4 L POC Hct MCH MCHC RDW Plt Count Lymph % (Auto) [place] % (Auto) Lymph # [place] # Baso # Seg Neutrophils % Seg Neuts % (Manual) Lymphocytes % (Manual) Monocytes % (Manual) Nucleated RBC % Seg Neutrophils # Seg Neutrophils # Man Lymphocytes # (Manual) Monocytes # (Manual) PT INR APTT Fibrinogen Heparin Anti-Xa Level 0.85 H POC ABG pH POC ABG pCO2 POC ABG pO2 POC Potassium POC Chloride Sodium Potassium Chloride Carbon Dioxide POC BUN BUN Creatinine Glucose POC Glucose 134 H Calcium Magnesium Crossmatch 06/16/16 06/16/16 06/16/16 08:55 08:55 14:21 WBC RBC Hgb POC Hgb 5.8 L Hct POC Hct 17 L MCH MCHC RDW Plt Count Lymph % (Auto) [place] % (Auto) Lymph # [place] # Baso # Seg Neutrophils % Seg Neuts % (Manual) Lymphocytes % (Manual) Monocytes % (Manual) Nucleated RBC % Seg Neutrophils # Seg Neutrophils # Man Lymphocytes # (Manual) Monocytes # (Manual) PT INR APTT 20.0 L Fibrinogen Heparin Anti-Xa Level POC ABG pH POC ABG pCO2 POC ABG pO2 POC Potassium 2.9 L POC Chloride Sodium Potassium Chloride Carbon Dioxide POC BUN 7 L BUN Creatinine Glucose POC Glucose 249 H Calcium Magnesium Crossmatch See Detail 06/16/16 06/16/16 06/16/16 16:55 17:41 17:48 WBC RBC Hgb POC Hgb 8.8 L Hct POC Hct 26 L < 15 L MCH MCHC RDW Plt Count Lymph % (Auto) [place] % (Auto) Lymph # [place] # Baso # Seg Neutrophils % Seg Neuts % (Manual) Lymphocytes % (Manual) Monocytes % (Manual) Nucleated RBC % Seg Neutrophils # Seg Neutrophils # Man Lymphocytes # (Manual) Monocytes # (Manual) PT INR APTT Fibrinogen Heparin Anti-Xa Level POC ABG pH 7.031 L POC ABG pCO2 POC ABG pO2 475 H POC Potassium 3.2 L POC Chloride 112 H 114 H Sodium Potassium Chloride Carbon Dioxide POC BUN 7 L 7 L BUN Creatinine Glucose POC Glucose 203 H 291 H Calcium Magnesium Crossmatch 06/16/16 06/16/16 06/16/16 18:07 19:09 20:10 WBC 15.8 H RBC Hgb POC Hgb 6.5 L Hct POC Hct 19 L MCH MCHC RDW Plt Count 38 L Lymph % (Auto) 5.[address] [place] % (Auto) 9.3 H Lymph # 0.[address] [place] # 1.5 H Baso # Seg Neutrophils % 84.6 H Seg Neuts % (Manual) Lymphocytes % (Manual) Monocytes % (Manual) Nucleated RBC % Seg Neutrophils # 13.3 H Seg Neutrophils # Man Lymphocytes # (Manual) Monocytes # (Manual) PT INR APTT Fibrinogen Heparin Anti-Xa Level POC ABG pH POC ABG pCO2 POC ABG pO2 POC Potassium POC Chloride 113 H Sodium Potassium Chloride Carbon Dioxide POC BUN 7 L BUN Creatinine Glucose POC Glucose 263 H 231 H Calcium Magnesium Crossmatch 06/16/16 06/16/16 06/16/16 20:10 20:18 21:10 WBC RBC Hgb POC Hgb Hct POC Hct MCH MCHC RDW Plt Count Lymph % (Auto) [place] % (Auto) Lymph # [place] # Baso # Seg Neutrophils % Seg Neuts % (Manual) Lymphocytes % (Manual) Monocytes % (Manual) Nucleated RBC % Seg Neutrophils # Seg Neutrophils # Man Lymphocytes # (Manual) Monocytes # (Manual) PT INR APTT Fibrinogen Heparin Anti-Xa Level POC ABG pH 7.236 L 7.280 L POC ABG pCO2 POC ABG pO2 139 H 145 H POC Potassium POC Chloride Sodium Potassium 3.4 L Chloride 114.5 H Carbon Dioxide 17 L D POC BUN BUN Creatinine Glucose 188 H POC Glucose Calcium 6.1 L D Magnesium Crossmatch 06/16/16 06/17/16 06/17/16 22:53 04:48 05:35 WBC RBC Hgb POC Hgb Hct POC Hct MCH MCHC RDW Plt Count Lymph % (Auto) [place] % (Auto) Lymph # [place] # Baso # Seg Neutrophils % Seg Neuts % (Manual) Lymphocytes % (Manual) Monocytes % (Manual) Nucleated RBC % Seg Neutrophils # Seg Neutrophils # Man Lymphocytes # (Manual) Monocytes # (Manual) PT INR APTT Fibrinogen Heparin Anti-Xa Level POC ABG pH POC ABG pCO2 33.9 L 22.2 L POC ABG pO2 152 H 154 H POC Potassium POC Chloride Sodium 150 H Potassium 3.4 L Chloride 114.2 H Carbon Dioxide 16 L POC BUN BUN Creatinine Glucose 221 H POC Glucose Calcium 7.6 L D Magnesium Crossmatch 06/17/16 06/18/16 06/18/16 09:22 07:26 08:25 WBC 20.3 H RBC 3.41 L Hgb 9.9 L POC Hgb Hct 29.7 L POC Hct MCH MCHC RDW Plt Count Lymph % (Auto) [place] % (Auto) Lymph # [place] # Baso # Seg Neutrophils % Seg Neuts % (Manual) 81.0 H Lymphocytes % (Manual) 6.0 L Monocytes % (Manual) 12.0 H Nucleated RBC % Seg Neutrophils # Seg Neutrophils # Man 16.4 H Lymphocytes # (Manual) Monocytes # (Manual) 2.4 H PT INR APTT Fibrinogen Heparin Anti-Xa Level POC ABG pH POC ABG pCO2 POC ABG pO2 POC Potassium POC Chloride Sodium Potassium 3.1 L Chloride Carbon Dioxide POC BUN BUN Creatinine Glucose 136 H POC Glucose 141 H Calcium 7.5 L Magnesium Crossmatch 06/18/16 06/18/16 06/18/16 08:25 11:09 19:40 WBC RBC Hgb 6.5 L D POC Hgb Hct 19.3 L* D POC Hct MCH MCHC RDW Plt Count 131 L Lymph % (Auto) [place] % (Auto) Lymph # [place] # Baso # Seg Neutrophils % Seg Neuts % (Manual) Lymphocytes % (Manual) Monocytes % (Manual) Nucleated RBC % Seg Neutrophils # Seg Neutrophils # Man Lymphocytes # (Manual) Monocytes # (Manual) PT INR APTT Fibrinogen Heparin Anti-Xa Level POC ABG pH 7.490 H POC ABG pCO2 POC ABG pO2 131 H POC Potassium POC Chloride Sodium Potassium Chloride Carbon Dioxide POC BUN BUN Creatinine Glucose POC Glucose 125 H Calcium Magnesium Crossmatch 06/18/16 06/19/16 06/19/16 21:10 07:07 07:28 WBC 13.6 H RBC 2.17 L Hgb 6.5 L POC Hgb Hct 18.8 L* POC Hct MCH MCHC 35 H RDW Plt Count 131 L Lymph % (Auto) 10.[address] [place] % (Auto) 9.3 H Lymph # [place] # 1.3 H Baso # Seg Neutrophils % 79.7 H Seg Neuts % (Manual) Lymphocytes % (Manual) Monocytes % (Manual) Nucleated RBC % Seg Neutrophils # 10.8 H Seg Neutrophils # Man Lymphocytes # (Manual) Monocytes # (Manual) PT INR APTT Fibrinogen Heparin Anti-Xa Level 0.75 H POC ABG pH POC ABG pCO2 POC ABG pO2 POC Potassium POC Chloride Sodium Potassium 3.5 L Chloride Carbon Dioxide POC BUN BUN Creatinine Glucose 104 H POC Glucose Calcium 7.6 L Magnesium 1.4 L Crossmatch 06/20/16 06/20/16 06/20/16 04:15 18:15 18:15 WBC 16.6 H RBC 1.19 L Hgb 9.2 L 3.5 L* D POC Hgb Hct 27.5 L D 11.0 L* D POC Hct MCH MCHC RDW Plt Count 138 L Lymph % (Auto) [place] % (Auto) Lymph # [place] # Baso # Seg Neutrophils % Seg Neuts % (Manual) Lymphocytes % (Manual) Monocytes % (Manual) Nucleated RBC % Seg Neutrophils # Seg Neutrophils # Man Lymphocytes # (Manual) Monocytes # (Manual) PT INR APTT Fibrinogen Heparin Anti-Xa Level POC ABG pH POC ABG pCO2 POC ABG pO2 POC Potassium POC Chloride Sodium 146 H Potassium Chloride Carbon Dioxide 14 L D POC BUN BUN Creatinine Glucose 31 L* POC Glucose Calcium 6.7 L Magnesium Crossmatch 06/20/16 06/20/16 06/20/16 18:15 19:33 19:36 WBC RBC Hgb POC Hgb Hct POC Hct MCH MCHC RDW Plt Count Lymph % (Auto) [place] % (Auto) Lymph # [place] # Baso # Seg Neutrophils % Seg Neuts % (Manual) Lymphocytes % (Manual) Monocytes % (Manual) Nucleated RBC % Seg Neutrophils # Seg Neutrophils # Man Lymphocytes # (Manual) Monocytes # (Manual) PT INR APTT Fibrinogen Heparin Anti-Xa Level POC ABG pH POC ABG pCO2 26.3 L POC ABG pO2 394 H POC Potassium POC Chloride Sodium Potassium Chloride Carbon Dioxide POC BUN BUN Creatinine Glucose POC Glucose 212 H Calcium Magnesium Crossmatch See Detail 06/20/16 06/20/16 06/21/16 22:01 23:00 00:35 WBC RBC Hgb POC Hgb Hct POC Hct MCH MCHC RDW Plt Count Lymph % (Auto) [place] % (Auto) Lymph # [place] # Baso # Seg Neutrophils % Seg Neuts % (Manual) Lymphocytes % (Manual) Monocytes % (Manual) Nucleated RBC % Seg Neutrophils # Seg Neutrophils # Man Lymphocytes # (Manual) Monocytes # (Manual) PT 21.3 H INR 1.85 H APTT 48.4 H Fibrinogen Heparin Anti-Xa Level POC ABG pH POC ABG pCO2 POC ABG pO2 POC Potassium POC Chloride Sodium Potassium Chloride Carbon Dioxide POC BUN BUN Creatinine Glucose POC Glucose 149 H 147 H Calcium Magnesium Crossmatch 06/21/16 06/21/16 06/21/16 04:30 04:30 06:01 WBC 21.7 H RBC 3.58 L Hgb POC Hgb Hct POC Hct MCH MCHC 35 H RDW Plt Count 116 L Lymph % (Auto) [place] % (Auto) Lymph # [place] # Baso # Seg Neutrophils % Seg Neuts % (Manual) Lymphocytes % (Manual) 8.0 L Monocytes % (Manual) Nucleated RBC % 3.0 H Seg Neutrophils # Seg Neutrophils # Man 13.7 H Lymphocytes # (Manual) Monocytes # (Manual) 1.5 H PT INR APTT Fibrinogen Heparin Anti-Xa Level POC ABG pH 7.541 H POC ABG pCO2 21.1 L POC ABG pO2 108 H POC Potassium POC Chloride Sodium Potassium 3.0 L Chloride 110.3 H Carbon Dioxide 18 L POC BUN BUN 18 H Creatinine Glucose 141 H POC Glucose Calcium 6.4 L Magnesium Crossmatch 06/21/16 06/21/16 06/21/16 07:00 10:02 17:51 WBC RBC Hgb 8.3 L POC Hgb Hct 24.7 L D POC Hct MCH MCHC RDW Plt Count Lymph % (Auto) [place] % (Auto) Lymph # [place] # Baso # Seg Neutrophils % Seg Neuts % (Manual) Lymphocytes % (Manual) Monocytes % (Manual) Nucleated RBC % Seg Neutrophils # Seg Neutrophils # Man Lymphocytes # (Manual) Monocytes # (Manual) PT INR APTT Fibrinogen Heparin Anti-Xa Level POC ABG pH POC ABG pCO2 POC ABG pO2 POC Potassium POC Chloride Sodium Potassium Chloride Carbon Dioxide POC BUN BUN Creatinine Glucose POC Glucose 132 H 106 H Calcium Magnesium Crossmatch 06/22/16 06/22/16 06/22/16 05:00 05:00 06:40 WBC 20.6 H RBC 3.54 L Hgb POC Hgb Hct POC Hct MCH MCHC RDW Plt Count 129 L Lymph % (Auto) [place] % (Auto) Lymph # [place] # Baso # Seg Neutrophils % Seg Neuts % (Manual) 87.0 H Lymphocytes % (Manual) 4.0 L Monocytes % (Manual) Nucleated RBC % 4.0 H Seg Neutrophils # Seg Neutrophils # Man 17.9 H Lymphocytes # (Manual) 0.8 L Monocytes # (Manual) 1.2 H PT INR APTT Fibrinogen Heparin Anti-Xa Level POC ABG pH POC ABG pCO2 21.9 L POC ABG pO2 118 H POC Potassium POC Chloride Sodium Potassium Chloride 109.9 H Carbon Dioxide 15 L POC BUN BUN 26 H Creatinine 2.2 H D Glucose POC Glucose Calcium 6.3 L Magnesium Crossmatch 06/22/16 06/22/16 06/22/16 09:15 09:15 23:17 WBC RBC Hgb 9.1 L POC Hgb Hct 26.9 L POC Hct MCH MCHC RDW Plt Count 116 L Lymph % (Auto) [place] % (Auto) Lymph # [place] # Baso # Seg Neutrophils % Seg Neuts % (Manual) Lymphocytes % (Manual) Monocytes % (Manual) Nucleated RBC % Seg Neutrophils # Seg Neutrophils # Man Lymphocytes # (Manual) Monocytes # (Manual) PT 15.8 H INR 1.27 H APTT Fibrinogen Heparin Anti-Xa Level POC ABG pH POC ABG pCO2 POC ABG pO2 POC Potassium POC Chloride Sodium Potassium Chloride Carbon Dioxide POC BUN BUN Creatinine Glucose POC Glucose 134 H Calcium Magnesium Crossmatch 06/23/16 06/23/16 06/23/16 05:43 05:43 09:44 WBC 13.8 H RBC 2.70 L Hgb 8.1 L POC Hgb Hct 24.2 L POC Hct MCH MCHC RDW Plt Count 93 L Lymph % (Auto) 6.[address] [place] % (Auto) Lymph # 0.[address] [place] # Baso # Seg Neutrophils % 89.2 H Seg Neuts % (Manual) Lymphocytes % (Manual) Monocytes % (Manual) Nucleated RBC % Seg Neutrophils # 12.3 H Seg Neutrophils # Man Lymphocytes # (Manual) Monocytes # (Manual) PT INR APTT Fibrinogen Heparin Anti-Xa Level POC ABG pH 7.593 H POC ABG pCO2 26.8 L POC ABG pO2 141 H POC Potassium POC Chloride Sodium 146 H Potassium Chloride Carbon Dioxide POC BUN BUN 32 H Creatinine 2.6 H Glucose 142 H POC Glucose Calcium 7.0 L Magnesium Crossmatch 1206/23/16 06/23/16 11:23 17:42 23:32 WBC RBC Hgb POC Hgb Hct POC Hct MCH MCHC RDW Plt Count Lymph % (Auto) [place] % (Auto) Lymph # [place] # Baso # Seg Neutrophils % Seg Neuts % (Manual) Lymphocytes % (Manual) Monocytes % (Manual) Nucleated RBC % Seg Neutrophils # Seg Neutrophils # Man Lymphocytes # (Manual) Monocytes # (Manual) PT INR APTT Fibrinogen Heparin Anti-Xa Level POC ABG pH POC ABG pCO2 POC ABG pO2 POC Potassium POC Chloride Sodium Potassium Chloride Carbon Dioxide POC BUN BUN Creatinine Glucose POC Glucose 138 H 133 H 111 H Calcium Magnesium Crossmatch 06/24/16 06/24/16 06/24/16 06:27 08:10 08:10 WBC 16.6 H RBC 2.91 L Hgb 8.9 L POC Hgb Hct 26.4 L POC Hct MCH MCHC RDW 15.6 H Plt Count 115 L Lymph % (Auto) 4.[address] [place] % (Auto) Lymph # 0.[address] [place] # 1.0 H Baso # Seg Neutrophils % 89.2 H Seg Neuts % (Manual) Lymphocytes % (Manual) Monocytes % (Manual) Nucleated RBC % Seg Neutrophils # 14.9 H Seg Neutrophils # Man Lymphocytes # (Manual) Monocytes # (Manual) PT INR APTT Fibrinogen Heparin Anti-Xa Level POC ABG pH POC ABG pCO2 POC ABG pO2 POC Potassium POC Chloride Sodium 146 H Potassium Chloride Carbon Dioxide POC BUN BUN 37 H Creatinine 2.9 H Glucose POC Glucose 109 H Calcium 7.5 L Magnesium Crossmatch 06/24/16 06/24/16 06/24/16 12:05 17:57 22:13 WBC RBC Hgb POC Hgb Hct POC Hct MCH MCHC RDW Plt Count Lymph % (Auto) [place] % (Auto) Lymph # [place] # Baso # Seg Neutrophils % Seg Neuts % (Manual) Lymphocytes % (Manual) Monocytes % (Manual) Nucleated RBC % Seg Neutrophils # Seg Neutrophils # Man Lymphocytes # (Manual) Monocytes # (Manual) PT INR APTT Fibrinogen Heparin Anti-Xa Level POC ABG pH POC ABG pCO2 POC ABG pO2 POC Potassium POC Chloride Sodium Potassium Chloride Carbon Dioxide POC BUN BUN Creatinine Glucose POC Glucose 117 H 124 H 116 H Calcium Magnesium Crossmatch 06/25/16 06/25/16 06/25/16 06:42 06:49 12:14 WBC RBC Hgb POC Hgb Hct POC Hct MCH MCHC RDW Plt Count Lymph % (Auto) [place] % (Auto) Lymph # [place] # Baso # Seg Neutrophils % Seg Neuts % (Manual) Lymphocytes % (Manual) Monocytes % (Manual) Nucleated RBC % Seg Neutrophils # Seg Neutrophils # Man Lymphocytes # (Manual) Monocytes # (Manual) PT INR APTT Fibrinogen Heparin Anti-Xa Level POC ABG pH POC ABG pCO2 POC ABG pO2 POC Potassium POC Chloride Sodium Potassium Chloride Carbon Dioxide POC BUN BUN 46 H Creatinine 3.6 H Glucose 133 H POC Glucose 137 H 136 H Calcium 7.4 L Magnesium Crossmatch 06/25/16 06/25/16 06/26/16 16:07 21:32 05:55 WBC RBC Hgb POC Hgb Hct POC Hct MCH MCHC RDW Plt Count Lymph % (Auto) [place] % (Auto) Lymph # [place] # Baso # Seg Neutrophils % Seg Neuts % (Manual) Lymphocytes % (Manual) Monocytes % (Manual) Nucleated RBC % Seg Neutrophils # Seg Neutrophils # Man Lymphocytes # (Manual) Monocytes # (Manual) PT INR APTT Fibrinogen Heparin Anti-Xa Level POC ABG pH POC ABG pCO2 POC ABG pO2 POC Potassium POC Chloride Sodium Potassium Chloride Carbon Dioxide 20 L POC BUN BUN 55 H Creatinine 4.2 H Glucose 120 H POC Glucose 146 H 146 H Calcium 7.5 L Magnesium Crossmatch 06/26/16 06/26/16 06/26/16 06:30 11:38 16:45 WBC RBC Hgb POC Hgb Hct POC Hct MCH MCHC RDW Plt Count Lymph % (Auto) [place] % (Auto) Lymph # [place] # Baso # Seg Neutrophils % Seg Neuts % (Manual) Lymphocytes % (Manual) Monocytes % (Manual) Nucleated RBC % Seg Neutrophils # Seg Neutrophils # Man Lymphocytes # (Manual) Monocytes # (Manual) PT INR APTT Fibrinogen Heparin Anti-Xa Level POC ABG pH POC ABG pCO2 POC ABG pO2 POC Potassium POC Chloride Sodium Potassium Chloride Carbon Dioxide POC BUN BUN Creatinine Glucose POC Glucose 128 H 143 H 121 H Calcium Magnesium Crossmatch 06/26/16 06/26/16 06/27/16 22:57 22:57 00:47 WBC RBC Hgb 8.4 L POC Hgb Hct 25.1 L POC Hct MCH MCHC RDW Plt Count Lymph % (Auto) [place] % (Auto) Lymph # [place] # Baso # Seg Neutrophils % Seg Neuts % (Manual) Lymphocytes % (Manual) Monocytes % (Manual) Nucleated RBC % Seg Neutrophils # Seg Neutrophils # Man Lymphocytes # (Manual) Monocytes # (Manual) PT 19.9 H INR 1.69 H APTT Fibrinogen Heparin Anti-Xa Level POC ABG pH POC ABG pCO2 POC ABG pO2 POC Potassium POC Chloride Sodium Potassium Chloride Carbon Dioxide POC BUN BUN Creatinine Glucose POC Glucose 110 H Calcium Magnesium Crossmatch 06/27/16 06/27/16 06/27/16 05:43 05:43 06:40 WBC RBC Hgb POC Hgb Hct POC Hct MCH MCHC RDW Plt Count Lymph % (Auto) [place] % (Auto) Lymph # [place] # Baso # Seg Neutrophils % Seg Neuts % (Manual) Lymphocytes % (Manual) Monocytes % (Manual) Nucleated RBC % Seg Neutrophils # Seg Neutrophils # Man Lymphocytes # (Manual) Monocytes # (Manual) PT INR APTT Fibrinogen Heparin Anti-Xa Level 2.00 H POC ABG pH POC ABG pCO2 POC ABG pO2 POC Potassium POC Chloride Sodium Potassium Chloride Carbon Dioxide 20 L POC BUN BUN 58 H Creatinine 4.8 H Glucose POC Glucose 109 H Calcium 8.1 L Magnesium Crossmatch 06/27/16 06/27/16 06/27/16 08:15 16:46 17:47 WBC RBC Hgb POC Hgb Hct POC Hct MCH MCHC RDW Plt Count Lymph % (Auto) [place] % (Auto) Lymph # [place] # Baso # Seg Neutrophils % Seg Neuts % (Manual) Lymphocytes % (Manual) Monocytes % (Manual) Nucleated RBC % Seg Neutrophils # Seg Neutrophils # Man Lymphocytes # (Manual) Monocytes # (Manual) PT INR APTT Fibrinogen Heparin Anti-Xa Level > 2.00 H 1.87 H POC ABG pH POC ABG pCO2 POC ABG pO2 POC Potassium POC Chloride Sodium Potassium Chloride Carbon Dioxide POC BUN BUN Creatinine Glucose POC Glucose 231 H Calcium Magnesium Crossmatch 06/27/16 06/27/16 06/28/16 21:23 23:54 06:27 WBC RBC Hgb POC Hgb Hct POC Hct MCH MCHC RDW Plt Count Lymph % (Auto) [place] % (Auto) Lymph # [place] # Baso # Seg Neutrophils % Seg Neuts % (Manual) Lymphocytes % (Manual) Monocytes % (Manual) Nucleated RBC % Seg Neutrophils # Seg Neutrophils # Man Lymphocytes # (Manual) Monocytes # (Manual) PT INR APTT Fibrinogen Heparin Anti-Xa Level 1.70 H POC ABG pH POC ABG pCO2 POC ABG pO2 POC Potassium POC Chloride Sodium Potassium Chloride Carbon Dioxide POC BUN BUN 62 H Creatinine 4.5 H Glucose 111 H POC Glucose 122 H Calcium 8.3 L Magnesium Crossmatch 06/28/16 06/28/16 06/28/16 06:27 11:47 14:14 WBC RBC Hgb 7.7 L POC Hgb Hct 22.9 L POC Hct MCH MCHC RDW Plt Count Lymph % (Auto) [place] % (Auto) Lymph # [place] # Baso # Seg Neutrophils % Seg Neuts % (Manual) Lymphocytes % (Manual) Monocytes % (Manual) Nucleated RBC % Seg Neutrophils # Seg Neutrophils # Man Lymphocytes # (Manual) Monocytes # (Manual) PT INR APTT Fibrinogen Heparin Anti-Xa Level POC ABG pH 7.461 H POC ABG pCO2 31.9 L POC ABG pO2 73 L POC Potassium POC Chloride Sodium Potassium Chloride Carbon Dioxide POC BUN BUN Creatinine Glucose POC Glucose 155 H Calcium Magnesium Crossmatch 06/28/16 06/28/16 06/28/16 16:27 20:47 22:59 WBC RBC Hgb POC Hgb Hct POC Hct MCH MCHC RDW Plt Count Lymph % (Auto) [place] % (Auto) Lymph # [place] # Baso # Seg Neutrophils % Seg Neuts % (Manual) Lymphocytes % (Manual) Monocytes % (Manual) Nucleated RBC % Seg Neutrophils # Seg Neutrophils # Man Lymphocytes # (Manual) Monocytes # (Manual) PT INR APTT Fibrinogen Heparin Anti-Xa Level 1.16 H POC ABG pH POC ABG pCO2 POC ABG pO2 POC Potassium POC Chloride Sodium Potassium Chloride Carbon Dioxide POC BUN BUN Creatinine Glucose POC Glucose 193 H 126 H Calcium Magnesium Crossmatch 06/29/16 06/29/16 06/29/16 05:51 09:10 09:10 WBC RBC Hgb POC Hgb Hct POC Hct MCH MCHC RDW Plt Count Lymph % (Auto) [place] % (Auto) Lymph # [place] # Baso # Seg Neutrophils % Seg Neuts % (Manual) Lymphocytes % (Manual) Monocytes % (Manual) Nucleated RBC % Seg Neutrophils # Seg Neutrophils # Man Lymphocytes # (Manual) Monocytes # (Manual) PT INR APTT Fibrinogen Heparin Anti-Xa Level 0.92 H POC ABG pH POC ABG pCO2 POC ABG pO2 POC Potassium POC Chloride Sodium Potassium Chloride Carbon Dioxide POC BUN BUN 53 H Creatinine 3.7 H Glucose 139 H POC Glucose 121 H Calcium 8.2 L Magnesium Crossmatch 06/29/16 06/30/16 06/30/16 21:22 05:09 08:07 WBC RBC Hgb 7.3 L POC Hgb Hct 21.9 L POC Hct MCH MCHC RDW Plt Count Lymph % (Auto) [place] % (Auto) Lymph # [place] # Baso # Seg Neutrophils % Seg Neuts % (Manual) Lymphocytes % (Manual) Monocytes % (Manual) Nucleated RBC % Seg Neutrophils # Seg Neutrophils # Man Lymphocytes # (Manual) Monocytes # (Manual) PT INR APTT Fibrinogen Heparin Anti-Xa Level POC ABG pH POC ABG pCO2 POC ABG pO2 POC Potassium POC Chloride Sodium Potassium Chloride Carbon Dioxide POC BUN BUN Creatinine Glucose POC Glucose 108 H 106 H Calcium Magnesium Crossmatch 06/30/16 06/30/16 06/30/16 10:48 12:13 16:48 WBC RBC Hgb POC Hgb Hct POC Hct MCH MCHC RDW Plt Count Lymph % (Auto) [place] % (Auto) Lymph # [place] # Baso # Seg Neutrophils % Seg Neuts % (Manual) Lymphocytes % (Manual) Monocytes % (Manual) Nucleated RBC % Seg Neutrophils # Seg Neutrophils # Man Lymphocytes # (Manual) Monocytes # (Manual) PT INR APTT Fibrinogen Heparin Anti-Xa Level POC ABG pH POC ABG pCO2 POC ABG pO2 POC Potassium POC Chloride Sodium Potassium Chloride Carbon Dioxide POC BUN BUN 46 H Creatinine 3.0 H Glucose POC Glucose 153 H 152 H Calcium Magnesium Crossmatch 06/30/16 07/01/16 07/01/16 21:47 05:47 07:44 WBC 19.8 H RBC 2.45 L Hgb 7.2 L POC Hgb Hct 22.2 L POC Hct MCH MCHC RDW Plt Count 481 H Lymph % (Auto) 5.[address] [place] % (Auto) Lymph # 1.[address] [place] # 1.4 H Baso # Seg Neutrophils % 86.8 H Seg Neuts % (Manual) Lymphocytes % (Manual) Monocytes % (Manual) Nucleated RBC % Seg Neutrophils # 17.1 H Seg Neutrophils # Man Lymphocytes # (Manual) Monocytes # (Manual) PT INR APTT Fibrinogen Heparin Anti-Xa Level POC ABG pH POC ABG pCO2 POC ABG pO2 POC Potassium POC Chloride Sodium Potassium Chloride Carbon Dioxide POC BUN BUN Creatinine Glucose POC Glucose 162 H 124 H Calcium Magnesium Crossmatch 07/01/16 07/01/16 07/01/16 07:44 11:55 16:16 WBC RBC Hgb POC Hgb Hct POC Hct MCH MCHC RDW Plt Count Lymph % (Auto) [place] % (Auto) Lymph # [place] # Baso # Seg Neutrophils % Seg Neuts % (Manual) Lymphocytes % (Manual) Monocytes % (Manual) Nucleated RBC % Seg Neutrophils # Seg Neutrophils # Man Lymphocytes # (Manual) Monocytes # (Manual) PT INR APTT Fibrinogen Heparin Anti-Xa Level POC ABG pH POC ABG pCO2 POC ABG pO2 POC Potassium POC Chloride Sodium Potassium 3.1 L Chloride Carbon Dioxide POC BUN BUN 38 H Creatinine 2.2 H Glucose 114 H POC Glucose 114 H 143 H Calcium Magnesium Crossmatch 07/01/16 07/02/16 07/02/16 21:42 05:40 06:46 WBC 18.1 H RBC 2.45 L Hgb 7.3 L POC Hgb Hct 21.8 L POC Hct MCH MCHC RDW Plt Count 490 H Lymph % (Auto) 6.[address] [place] % (Auto) Lymph # 1.[address] [place] # 1.1 H Baso # 0.2 H Seg Neutrophils % 86.0 H Seg Neuts % (Manual) Lymphocytes % (Manual) Monocytes % (Manual) Nucleated RBC % Seg Neutrophils # 15.6 H Seg Neutrophils # Man Lymphocytes # (Manual) Monocytes # (Manual) PT INR APTT Fibrinogen Heparin Anti-Xa Level POC ABG pH POC ABG pCO2 POC ABG pO2 POC Potassium POC Chloride Sodium Potassium Chloride Carbon Dioxide POC BUN BUN Creatinine Glucose POC Glucose 135 H 135 H Calcium Magnesium Crossmatch 07/02/16 07/02/16 07/02/16 06:46 06:49 11:23 WBC RBC Hgb POC Hgb Hct POC Hct MCH MCHC RDW Plt Count Lymph % (Auto) [place] % (Auto) Lymph # [place] # Baso # Seg Neutrophils % Seg Neuts % (Manual) Lymphocytes % (Manual) Monocytes % (Manual) Nucleated RBC % Seg Neutrophils # Seg Neutrophils # Man Lymphocytes # (Manual) Monocytes # (Manual) PT INR APTT Fibrinogen Heparin Anti-Xa Level POC ABG pH POC ABG pCO2 POC ABG pO2 POC Potassium POC Chloride Sodium Potassium 2.8 L* Chloride Carbon Dioxide POC BUN BUN 30 H Creatinine 1.8 H Glucose 121 H POC Glucose 121 H Calcium 8.1 L Magnesium 1.3 L Crossmatch 07/02/16 07/02/16 07/03/16 17:02 21:31 05:35 WBC RBC Hgb POC Hgb Hct POC Hct MCH MCHC RDW Plt Count Lymph % (Auto) [place] % (Auto) Lymph # [place] # Baso # Seg Neutrophils % Seg Neuts % (Manual) Lymphocytes % (Manual) Monocytes % (Manual) Nucleated RBC % Seg Neutrophils # Seg Neutrophils # Man Lymphocytes # (Manual) Monocytes # (Manual) PT INR APTT Fibrinogen Heparin Anti-Xa Level POC ABG pH POC ABG pCO2 POC ABG pO2 POC Potassium POC Chloride Sodium Potassium Chloride Carbon Dioxide POC BUN BUN Creatinine Glucose POC Glucose 121 H 159 H 149 H Calcium Magnesium Crossmatch 07/03/16 07/03/16 07/03/16 06:45 06:45 06:45 WBC 16.8 H RBC 2.21 L Hgb 6.5 L POC Hgb Hct 19.4 L* POC Hct MCH MCHC RDW Plt Count 503 H Lymph % (Auto) 6.[address] [place] % (Auto) Lymph # 1.[address] [place] # 1.1 H Baso # Seg Neutrophils % 85.6 H Seg Neuts % (Manual) Lymphocytes % (Manual) Monocytes % (Manual) Nucleated RBC % Seg Neutrophils # 14.4 H Seg Neutrophils # Man Lymphocytes # (Manual) Monocytes # (Manual) PT INR APTT Fibrinogen Heparin Anti-Xa Level POC ABG pH POC ABG pCO2 POC ABG pO2 POC Potassium POC Chloride Sodium Potassium 2.9 L* Chloride Carbon Dioxide POC BUN BUN 21 H Creatinine 1.6 H Glucose 126 H POC Glucose Calcium 8.0 L Magnesium 1.6 L Crossmatch 07/03/16 07/03/16 07/03/16 12:54 19:00 20:01 WBC RBC Hgb POC Hgb Hct POC Hct MCH MCHC RDW Plt Count Lymph % (Auto) [place] % (Auto) Lymph # [place] # Baso # Seg Neutrophils % Seg Neuts % (Manual) Lymphocytes % (Manual) Monocytes % (Manual) Nucleated RBC % Seg Neutrophils # Seg Neutrophils # Man Lymphocytes # (Manual) Monocytes # (Manual) PT INR APTT Fibrinogen Heparin Anti-Xa Level POC ABG pH 7.302 L POC ABG pCO2 49.8 H POC ABG pO2 422 H POC Potassium POC Chloride Sodium Potassium Chloride Carbon Dioxide POC BUN BUN Creatinine Glucose POC Glucose 129 H Calcium Magnesium Crossmatch See Detail 07/03/16 07/04/16 07/04/16 23:09 04:30 04:30 WBC 19.6 H RBC 3.21 L Hgb 9.4 L POC Hgb Hct 28.2 L POC Hct MCH MCHC RDW Plt Count Lymph % (Auto) 6.[address] [place] % (Auto) Lymph # [place] # 1.2 H Baso # Seg Neutrophils % 86.4 H Seg Neuts % (Manual) Lymphocytes % (Manual) Monocytes % (Manual) Nucleated RBC % Seg Neutrophils # 16.9 H Seg Neutrophils # Man Lymphocytes # (Manual) Monocytes # (Manual) PT INR APTT Fibrinogen Heparin Anti-Xa Level POC ABG pH POC ABG pCO2 POC ABG pO2 POC Potassium POC Chloride Sodium Potassium 3.5 L D Chloride 111.2 H Carbon Dioxide 20 L POC BUN BUN 18 H Creatinine Glucose POC Glucose 111 H Calcium 7.0 L Magnesium Crossmatch 07/04/16 07/04/16 07/04/16 05:44 12:50 14:33 WBC RBC Hgb POC Hgb Hct POC Hct MCH MCHC RDW Plt Count Lymph % (Auto) [place] % (Auto) Lymph # [place] # Baso # Seg Neutrophils % Seg Neuts % (Manual) Lymphocytes % (Manual) Monocytes % (Manual) Nucleated RBC % Seg Neutrophils # Seg Neutrophils # Man Lymphocytes # (Manual) Monocytes # (Manual) PT INR APTT Fibrinogen Heparin Anti-Xa Level POC ABG pH 7.465 H 7.468 H POC ABG pCO2 29.5 L 29.1 L 33.1 L POC ABG pO2 110 H 39 L POC Potassium POC Chloride Sodium Potassium Chloride Carbon Dioxide POC BUN BUN Creatinine Glucose POC Glucose Calcium Magnesium Crossmatch 07/04/16 07/05/16 07/05/16 16:49 00:20 04:19 WBC 16.2 H RBC 3.44 L Hgb POC Hgb Hct POC Hct MCH MCHC RDW Plt Count Lymph % (Auto) 5.[address] [place] % (Auto) 7.5 H Lymph # 0.[address] [place] # 1.2 H Baso # Seg Neutrophils % 86.5 H Seg Neuts % (Manual) Lymphocytes % (Manual) Monocytes % (Manual) Nucleated RBC % Seg Neutrophils # 14.0 H Seg Neutrophils # Man Lymphocytes # (Manual) Monocytes # (Manual) PT INR APTT Fibrinogen Heparin Anti-Xa Level POC ABG pH POC ABG pCO2 31.1 L POC ABG pO2 110 H POC Potassium POC Chloride Sodium Potassium Chloride Carbon Dioxide POC BUN BUN Creatinine Glucose POC Glucose 168 H Calcium Magnesium Crossmatch 07/05/16 07/05/16 07/05/16 04:19 06:01 09:54 WBC RBC Hgb POC Hgb Hct POC Hct MCH MCHC RDW Plt Count Lymph % (Auto) [place] % (Auto) Lymph # [place] # Baso # Seg Neutrophils % Seg Neuts % (Manual) Lymphocytes % (Manual) Monocytes % (Manual) Nucleated RBC % Seg Neutrophils # Seg Neutrophils # Man Lymphocytes # (Manual) Monocytes # (Manual) PT INR APTT Fibrinogen Heparin Anti-Xa Level POC ABG pH POC ABG pCO2 POC ABG pO2 POC Potassium POC Chloride Sodium 146 H Potassium 3.5 L Chloride 109.1 H Carbon Dioxide POC BUN BUN Creatinine Glucose 135 H POC Glucose 146 H 284 H Calcium 7.8 L Magnesium Crossmatch Chest x-ray: report reviewed (Mild pulmonary edema), image reviewed
--- NOTE | 2016-07-05 13:03 | Progress Note ---
Assessment and Plan Postoperative day 2 status post right femoral endarterectomy with patch angioplasty and completion angiogram. Right foot is well vascularized and in no danger at this point. Right calf is soft with no evidence of compartment syndrome. Neurologic deficit in the right lower extremity that is most likely secondary to recent acute ischemia as well as prolonged bedrest and deconditioning. Stable left lower extremity well perfused. Status post left femoral endarterectomy and left iliac stenting and left femoral-popliteal bypass. The incisions do not appear to be infected however show significant epidermal sloughing resembling burn wounds that most likely secondary to recent swelling. Stable renal function. Labs are stable with no evidence of bleeding. Hemodynamically stable. Plan: Continue ICU monitoring. Will apply Silvadene to the incisions in the left leg. Patient will require a lot of physical therapy. Subjective Date of service: 07/05/16 Principal diagnosis: Acute Hypoxemic Respiratory Failure; s/p cardiopulmonary arrest Interval history: Patient is extubated. No complaints and pain in the foot. Objective - Exam Narrative Exam: Right foot warm. Easily dopplerable dorsalis pedis pulse. Left foot warm. Palpable left dorsalis pedis pulse. The right groin incision well approximated. No hematoma. Left leg incisions show epidermal sloughing. The popliteal incision is dry. The femoral incision is draining sanguinous fluid was no smell. Difficulty moving and both legs. Unable to bend the right knee or move the right toes. - Constitutional Vitals: Vital Signs - 12hr 07/05/16 07/05/16 07/05/16 01:01 01:15 01:31 Pulse Rate 109 H 102 H 102 H Pulse Rate [ Apical] Respiratory 21 26 H 29 H Rate Blood Pressure 151/74 148/71 139/74 O2 Sat by Pulse 100 99 98 Oximetry 07/05/16 07/05/16 07/05/16 01:45 02:00 02:15 Pulse Rate 106 H 102 H 111 H Pulse Rate [ Apical] Respiratory 26 H 22 24 Rate Blood Pressure 139/74 164/75 164/75 O2 Sat by Pulse 99 100 100 Oximetry 07/05/16 07/05/16 07/05/16 02:30 02:45 03:00 Pulse Rate 102 H 115 H 108 H Pulse Rate [ Apical] Respiratory 24 26 H 22 Rate Blood Pressure 160/71 160/71 160/76 O2 Sat by Pulse 99 100 100 Oximetry 07/05/16 07/05/16 07/05/16 03:15 03:30 03:45 Pulse Rate 105 H 106 H 109 H Pulse Rate [ Apical] Respiratory 23 25 H 29 H Rate Blood Pressure 160/76 169/79 169/79 O2 Sat by Pulse 99 100 97 Oximetry 07/05/16 07/05/16 07/05/16 04:00 04:15 04:30 Pulse Rate 106 H 113 H 103 H Pulse Rate [ 90 Apical] Respiratory 19 25 H 29 H Rate Blood Pressure 147/73 147/73 170/80 O2 Sat by Pulse 100 100 99 Oximetry 07/05/16 07/05/16 07/05/16 04:45 05:00 05:15 Pulse Rate 99 H 109 H 106 H Pulse Rate [ Apical] Respiratory 25 H 21 25 H Rate Blood Pressure 147/73 151/74 151/74 O2 Sat by Pulse 99 100 99 Oximetry 07/05/16 07/05/16 07/05/16 05:30 05:45 06:00 Pulse Rate 97 H 99 H 98 H Pulse Rate [ Apical] Respiratory 20 25 H 20 Rate Blood Pressure 154/65 154/65 161/74 O2 Sat by Pulse 100 99 97 Oximetry 07/05/16 10:52 Pulse Rate 107 H Pulse Rate [ Apical] Respiratory Rate Blood Pressure 162/68 O2 Sat by Pulse Oximetry - Labs CBC & Chem 7: 07/05/16 04:19 07/05/16 04:19 Labs: Abnormal lab results 07/03/16 07/04/16 07/04/16 Range/Units 12:54 12:50 14:33 WBC (4.5-11.0) K/mm3 RBC (3.65-5.03) M/mm3 Lymph % (Auto) (13.4-35.0) % [place] % (Auto) (0.0-7.3) % Lymph # (1.2-5.4) K/mm3 [place] # (0.0-0.8) K/mm3 Seg Neutrophils % (40.0-70.0) % Seg Neutrophils # (1.8-7.7) K/mm3 POC ABG pH 7.468 H (7.35-7.45) POC ABG pCO2 29.1 L 33.1 L (35-45) POC ABG pO2 39 L (80-105) Sodium (137-145) mmol/L Potassium (3.6-5.0) mmol/L Chloride (98-107) mmol/L Glucose (65-100) mg/dL POC Glucose (70-105) Calcium (8.4-10.2) mg/dL Crossmatch See Detail 07/04/16 07/05/16 07/05/16 Range/Units 16:49 00:20 04:19 WBC 16.2 H (4.5-11.0) K/mm3 RBC 3.44 L (3.65-5.03) M/mm3 Lymph % (Auto) 5.2 L (13.4-35.0) % [place] % (Auto) 7.5 H (0.0-7.3) % Lymph # 0.8 L (1.2-5.4) K/mm3 [place] # 1.2 H (0.0-0.8) K/mm3 Seg Neutrophils % 86.5 H (40.0-70.0) % Seg Neutrophils # 14.0 H (1.8-7.7) K/mm3 POC ABG pH (7.35-7.45) POC ABG pCO2 31.1 L (35-45) POC ABG pO2 110 H (80-105) Sodium (137-145) mmol/L Potassium (3.6-5.0) mmol/L Chloride (98-107) mmol/L Glucose (65-100) mg/dL POC Glucose 168 H (70-105) Calcium (8.4-10.2) mg/dL Crossmatch 07/05/16 07/05/16 07/05/16 Range/Units 04:19 06:01 09:54 WBC (4.5-11.0) K/mm3 RBC (3.65-5.03) M/mm3 Lymph % (Auto) (13.4-35.0) % [place] % (Auto) (0.0-7.3) % Lymph # (1.2-5.4) K/mm3 [place] # (0.0-0.8) K/mm3 Seg Neutrophils % (40.0-70.0) % Seg Neutrophils # (1.8-7.7) K/mm3 POC ABG pH (7.35-7.45) POC ABG pCO2 (35-45) POC ABG pO2 (80-105) Sodium 146 H (137-145) mmol/L Potassium 3.5 L (3.6-5.0) mmol/L Chloride 109.1 H (98-107) mmol/L Glucose 135 H (65-100) mg/dL POC Glucose 146 H 284 H (70-105) Calcium 7.8 L (8.4-10.2) mg/dL Crossmatch
[2016-07-05] MEDS: NORCO 7.5/325 PO PRN (23:32)
[2016-07-06 05:02] LABS: Hematocrit 29.8 % (30.3-42.9); Hemoglobin 9.8 gm/dl (10.1-14.3); Mean Corpuscular HGB Conc 33 % (30-34); Mean Corpuscular Hemoglobin 30 pg (28-32); Mean Corpuscular Volume 90 fl (79-97); Platelet Count 326 K/mm3 (140-440); Red Blood Count 3.32 M/mm3 (3.65-5.03); Red Cell Distribution Width 14.7 % (13.2-15.2); White Blood Count 17.7 K/mm3 (4.5-11.0)
[2016-07-06 05:21] LABS: BUN/Creatinine Ratio 13.33; Blood Urea Nitrogen 12 mg/dL (7-17); Calcium 7.8 mg/dL (8.4-10.2); Carbon Dioxide 21 mmol/L (22-30); Chloride 106.3 mmol/L (98-107); Glucose 108 mg/dL (65-100); Potassium 3.5 mmol/L (3.6-5.0); Sodium 142 mmol/L (137-145)
[2016-07-06 05:26] LABS: Anion Gap 18 mmol/L
[2016-07-06 05:59] LABS: Anisocytosis 1+; Basophils % (Manual) 0 % (0.0-1.8); Blastocytes % (Manual) 0 %; Eosinophils % (Manual) 0 % (0.0-4.3)
[2016-07-06 06:00] LABS: Diff Status Complete
[2016-07-06] MEDS: XOPENEX IH PRN (08:18)
[2016-07-06] MEDS: MORPHINE IV PRN ×4 (08:44→23:52)
--- NOTE | 2016-07-06 09:19 | XRay Report ---
Portable chest: Compared to the prior exam of 05 July there has been no change. There is persistent left basilar opacity. There may be mild vascular congestion. Impression: No acute finding.
[2016-07-06] MEDS: NORCO 7.5/325 PO PRN ×2 (10:24→22:01)
[2016-07-06] MEDS: BABY ASPIRIN PO SCH (10:25)
[2016-07-06] MEDS: PLAVIX PO SCH (10:26)
[2016-07-06] MEDS: TENORMIN PO SCH (10:26)
[2016-07-06] MEDS: FERROUS SULFATE PO SCH (10:26)
[2016-07-06] MEDS: ELIQUIS PO SCH (10:26)
[2016-07-06] MEDS: PROTONIX PO SCH (10:26)
[2016-07-06] MEDS: POTASSIUM CHLORIDE FEEDTUBE SCH (10:26)
[2016-07-06] MEDS: THERMAZENE 50 GRAM TP SCH (11:38)
--- NOTE | 2016-07-06 11:49 | Progress Note ---
Assessment and Plan Postoperative day 3 status post right femoral endarterectomy with patch angioplasty and completion angiogram. Right foot is well vascularized and in no danger at this point. Neurologic deficit in the right lower extremity that is most likely secondary to recent acute ischemia as well as prolonged bedrest and deconditioning. Stable left lower extremity well perfused. Status post left femoral endarterectomy and left iliac stenting and left femoral-popliteal bypass. The incisions do not appear to be infected however show significant epidermal sloughing and necrosis but now have foul smell. Patient also spiked a fever to 102 and has persistent tachycardia as well as slight elevation of WBC is compared to yesterday. These findings predispose patient for high risk of wound infection if she doesn't have it already. Stable renal function. Labs are stable with no evidence of bleeding. Hemodynamically stable. Plan: Continue ICU monitoring. Continue apply Silvadene to the incisions in the left leg. We'll obtain infectious disease consult since this patient has multiple potential sources of infection not just the leg. I discussed that was infectious disease attending. We will debride the left thigh to remove the necrotic tissue tomorrow and any underlying necrotic tissue. If the bypass becomes exposed we will consider a muscle flap. Subjective Principal diagnosis: Acute Hypoxemic Respiratory Failure; s/p cardiopulmonary arrest Interval history: Patient is complaining of the pain in the left thigh. Objective - Exam Narrative Exam: Right foot warm. Easily dopplerable dorsalis pedis pulse. Left foot warm. Palpable left dorsalis pedis pulse. The right groin incision well approximated. No hematoma. Left leg incisions show epidermal sloughing. There is some foul smell from the left groin incision. Still no purulent drainage The popliteal incision is dry. The femoral incision is draining sanguinous fluid. Difficulty moving and both legs. Unable to bend the right knee or move the right toes. - Constitutional Vitals: Vital Signs - 12hr 07/06/16 07/06/16 07/06/16 00:00 01:00 02:00 Temperature Pulse Rate 104 H 111 H 104 H Pulse Rate [ Apical] Pulse Rate [ 98 H From Monitor] Respiratory 19 18 16 Rate Blood Pressure 143/65 143/65 131/65 O2 Sat by Pulse 99 98 Oximetry 07/06/16 07/06/16 07/06/16 02:37 03:01 04:00 Temperature Pulse Rate 99 H 101 H 103 H Pulse Rate [ Apical] Pulse Rate [ 98 H From Monitor] Respiratory 16 18 14 Rate Blood Pressure 131/65 139/71 132/68 O2 Sat by Pulse 100 99 100 Oximetry 07/06/16 07/06/16 07/06/16 04:05 05:00 06:00 Temperature Pulse Rate 107 H 99 H 109 H Pulse Rate [ Apical] Pulse Rate [ From Monitor] Respiratory 19 23 29 H Rate Blood Pressure 132/68 155/78 153/75 O2 Sat by Pulse 100 100 100 Oximetry 07/06/16 07/06/16 07/06/16 07:00 07:05 07:45 Temperature 99.6 F Pulse Rate 113 H 112 H Pulse Rate [ Apical] Pulse Rate [ From Monitor] Respiratory 19 21 Rate Blood Pressure 138/91 138/91 O2 Sat by Pulse 96 100 Oximetry 07/06/16 07/06/16 07/06/16 08:00 08:45 08:59 Temperature Pulse Rate 107 H 122 H 117 H Pulse Rate [ 116 H Apical] Pulse Rate [ From Monitor] Respiratory 23 22 14 Rate Blood Pressure 164/84 164/84 164/84 O2 Sat by Pulse 100 100 100 Oximetry 07/06/16 07/06/16 07/06/16 09:00 10:00 10:26 Temperature Pulse Rate 121 H 112 H 120 H Pulse Rate [ Apical] Pulse Rate [ From Monitor] Respiratory 15 21 Rate Blood Pressure 156/80 157/70 157/70 O2 Sat by Pulse 100 100 Oximetry 07/06/16 11:00 Temperature Pulse Rate 112 H Pulse Rate [ Apical] Pulse Rate [ From Monitor] Respiratory 19 Rate Blood Pressure 158/75 O2 Sat by Pulse 100 Oximetry - Labs CBC & Chem 7: 07/06/16 04:40 07/06/16 04:40 Labs: Abnormal lab results 07/05/16 07/06/16 07/06/16 Range/Units 13:35 04:40 04:40 WBC 17.7 H (4.5-11.0) K/mm3 RBC 3.32 L (3.65-5.03) M/mm3 Hgb 9.8 L (10.1-14.3) gm/dl Hct 29.8 L (30.3-42.9) % Seg Neuts % (Manual) 85.0 H (40.0-70.0) % Lymphocytes % (Manual) 4.0 L (13.4-35.0) % Monocytes % (Manual) 10.0 H (0.0-7.3) % Seg Neutrophils # Man 15.0 H (1.8-7.7) K/mm3 Lymphocytes # (Manual) 0.7 L (1.2-5.4) K/mm3 Monocytes # (Manual) 1.8 H (0.0-0.8) K/mm3 Potassium 3.5 L (3.6-5.0) mmol/L Carbon Dioxide 21 L (22-30) mmol/L Glucose 108 H (65-100) mg/dL POC Glucose 130 H (70-105) Calcium 7.8 L (8.4-10.2) mg/dL 07/06/16 Range/Units 07:46 WBC (4.5-11.0) K/mm3 RBC (3.65-5.03) M/mm3 Hgb (10.1-14.3) gm/dl Hct (30.3-42.9) % Seg Neuts % (Manual) (40.0-70.0) % Lymphocytes % (Manual) (13.4-35.0) % Monocytes % (Manual) (0.0-7.3) % Seg Neutrophils # Man (1.8-7.7) K/mm3 Lymphocytes # (Manual) (1.2-5.4) K/mm3 Monocytes # (Manual) (0.0-0.8) K/mm3 Potassium (3.6-5.0) mmol/L Carbon Dioxide (22-30) mmol/L Glucose (65-100) mg/dL POC Glucose 149 H (70-105) Calcium (8.4-10.2) mg/dL
--- NOTE | 2016-07-06 12:23 | Progress Note ---
Assessment and Plan Patient presently on room air. O2 satuaration 100%.Patient awake and oriented.No complaint of chest pain or shortness of breath.patient sitting up in [facility]. I spent critical care time of 30 minutes examining the patient, review chest aray,review the labs and talking to the nursing staff and respiratory therapy. - Patient Problems (1) Acute respiratory failure Current Visit: Yes Status: Acute Plan to address problem: Patient presently undergoing spontaneous breathing trials. Pressure support 10 cm H20 and FIO2 30%. 06/27/16 Respiratory status improved. No acute respiratory distress. On room air . O2 satuaration 100%. 06/30/16 Patient is on room air. No respiratory distress. O2 satuaration 97%. 07/04/16 Patient presently on pressure support 10 cm H20, FIO2 30% Patient tolerating good. Obtaining blood gases, If they are may extubate her. 07/05/16 Patient extubated. Presently on room air , tolerating good. O2 satuaration 100%. Incentive spirometry. xopenex aerosol treatments q 8 hours prn for shortness of breath and wheezing. (2) Cardiopulmonary arrest with successful resuscitation Current Visit: Yes Status: Acute Plan to address problem: Patient resuciated . Patient is on mechanical ventilation and vasopressors. 06/27/16 Improved. alert,awake following commands. !08/31/15 Patient alert,awake and following commands. 07/04/16 Patient alert, awake following commands. 07/06/16 Patient alert,awake and sitting up in chair.Following commands. O2 satuaration 100% on room air. (3) Left lower lobe pneumonia Current Visit: Yes Status: Acute Plan to address problem: Patient running low grade temp. Patient has leukocytosis. Chest xray showing left lower lobe infiltrate, Obtaining blood cultures Tracheal aspirate for gram stain and C&S. Urin for U/A C&S. Starting on Zosyn. 06/27/16 Patient afebrile Repeating chest xray. 06/30/16 Repeat chest xray reported increased left pleural effusion. Obtaining ultrasound of chest. 07/04/16 Reported small left effusion. 07/05/16 Reported no acute findings. (4) Atherosclerosis of [place] arteries of extremity with intermittent claudication Current Visit: Yes Status: Acute Plan to address problem: Management as per vascular surgery. (5) Metabolic acidosis Current Visit: Yes Status: Acute Plan to address problem: Obtaining Lactate level. Given I/V Bicarb. 06/27/16 Improving. 06/30/16 Metabolic acidosis improved. (6) ATN (acute tubular necrosis) Current Visit: Yes Status: Acute Plan to address problem: Nephrology consulted. Management as per nephrology. Subjective Date of service: 07/06/16 Principal diagnosis: Acute Hypoxemic Respiratory Failure; s/p cardiopulmonary arrest Interval history: Patient presently on room air. O2 satuaration 100%.Patient awake and oriented.No complaint of chest pain or shortness of breath.patient sitting up in [facility]. Objective Vital Signs - 12hr 07/06/16 07/06/16 07/06/16 01:00 02:00 02:37 Temperature Pulse Rate 111 H 104 H 99 H Pulse Rate [ Apical] Pulse Rate [ From Monitor] Respiratory 18 16 16 Rate Blood Pressure 143/65 131/65 131/65 O2 Sat by Pulse 98 100 Oximetry 07/06/16 07/06/16 07/06/16 03:01 04:00 04:05 Temperature Pulse Rate 101 H 103 H 107 H Pulse Rate [ Apical] Pulse Rate [ 98 H From Monitor] Respiratory 18 14 19 Rate Blood Pressure 139/71 132/68 132/68 O2 Sat by Pulse 99 100 100 Oximetry 07/06/16 07/06/16 07/06/16 05:00 06:00 07:00 Temperature Pulse Rate 99 H 109 H 113 H Pulse Rate [ Apical] Pulse Rate [ From Monitor] Respiratory 23 29 H 19 Rate Blood Pressure 155/78 153/75 138/91 O2 Sat by Pulse 100 100 96 Oximetry 07/06/16 07/06/16 07/06/16 07:05 07:45 08:00 Temperature 99.6 F Pulse Rate 112 H 107 H Pulse Rate [ 116 H Apical] Pulse Rate [ From Monitor] Respiratory 21 23 Rate Blood Pressure 138/91 164/84 O2 Sat by Pulse 100 100 Oximetry 07/06/16 07/06/16 07/06/16 08:45 08:59 09:00 Temperature Pulse Rate 122 H 117 H 121 H Pulse Rate [ Apical] Pulse Rate [ From Monitor] Respiratory 22 14 15 Rate Blood Pressure 164/84 164/84 156/80 O2 Sat by Pulse 100 100 100 Oximetry 07/06/16 07/06/16 07/06/16 10:00 10:26 11:00 Temperature Pulse Rate 112 H 120 H 112 H Pulse Rate [ Apical] Pulse Rate [ From Monitor] Respiratory 21 19 Rate Blood Pressure 157/70 157/70 158/75 O2 Sat by Pulse 100 100 Oximetry 07/06/16 11:56 Temperature 100.6 F H Pulse Rate Pulse Rate [ Apical] Pulse Rate [ From Monitor] Respiratory Rate Blood Pressure O2 Sat by Pulse Oximetry Constitutional: no acute distress, alert, other (Resting on mechanical ventilation.) Eyes: non-icteric ENT: oropharynx moist Neck: supple, no lymphadenopathy Effort: normal Ascultation: Bilateral: diminished breath sounds, rhonchi (posterior bases) Cardiovascular: regular rate and rhythm Gastrointestinal: normoactive bowel sounds, soft, non-tender, non-distended Integumentary: other (weak LLExt) Extremities: no cyanosis, edema, other (LLExt pulses diminished but leg warm) Neurologic: normal mental status, non-focal exam, pupils equal and round, motor strength normal and Psychiatric: mood appropriate, affect normal CBC and BMP: 07/06/16 04:40 07/06/16 04:40 ABG, PT/INR, D-dimer: ABG POC ABG pH 7.436 (7.35-7.45) 07/04/16 16:49 POC ABG pCO2 31.1 (35-45) L 07/04/16 16:49 POC ABG pO2 110 (80-105) H 07/04/16 16:49 POC ABG HCO3 20.9 07/04/16 16:49 POC ABG Total CO2 22 07/04/16 16:49 POC ABG O2 Sat 99 07/04/16 16:49 PT/INR, D-dimer PT 19.9 Sec. (12.2-14.9) H 06/26/16 22:57 INR 1.69 (0.87-1.13) H 06/26/16 22:57 Abnormal lab findings: Abnormal Labs 06/13/16 06/13/16 06/13/16 09:45 09:45 09:45 WBC RBC Hgb POC Hgb Hct POC Hct MCH 25 L MCHC RDW 15.8 H Plt Count Lymph % (Auto) [place] % (Auto) 8.1 H Lymph # [place] # Baso # Seg Neutrophils % Seg Neuts % (Manual) Lymphocytes % (Manual) Monocytes % (Manual) Nucleated RBC % Seg Neutrophils # Seg Neutrophils # Man Lymphocytes # (Manual) Monocytes # (Manual) PT INR APTT Fibrinogen 522 H Heparin Anti-Xa Level POC ABG pH POC ABG pCO2 POC ABG pO2 POC Potassium POC Chloride Sodium Potassium Chloride Carbon Dioxide POC BUN BUN Creatinine Glucose POC Glucose Calcium 10.3 H Magnesium Crossmatch 06/13/16 06/13/16 06/13/16 09:45 20:14 20:15 WBC RBC Hgb POC Hgb Hct POC Hct MCH MCHC RDW Plt Count Lymph % (Auto) [place] % (Auto) Lymph # [place] # Baso # Seg Neutrophils % Seg Neuts % (Manual) Lymphocytes % (Manual) Monocytes % (Manual) Nucleated RBC % Seg Neutrophils # Seg Neutrophils # Man Lymphocytes # (Manual) Monocytes # (Manual) PT INR APTT 103.8 H* Fibrinogen Heparin Anti-Xa Level 0.72 H POC ABG pH POC ABG pCO2 POC ABG pO2 POC Potassium POC Chloride Sodium Potassium Chloride Carbon Dioxide POC BUN BUN Creatinine Glucose POC Glucose Calcium Magnesium Crossmatch See Detail 06/14/16 06/14/16 06/14/16 07:44 10:18 19:09 WBC RBC Hgb POC Hgb Hct POC Hct MCH 26 L MCHC RDW 15.8 H Plt Count Lymph % (Auto) [place] % (Auto) 9.1 H Lymph # [place] # Baso # Seg Neutrophils % Seg Neuts % (Manual) Lymphocytes % (Manual) Monocytes % (Manual) Nucleated RBC % Seg Neutrophils # Seg Neutrophils # Man Lymphocytes # (Manual) Monocytes # (Manual) PT INR APTT Fibrinogen Heparin Anti-Xa Level 0.76 H POC ABG pH POC ABG pCO2 POC ABG pO2 POC Potassium POC Chloride Sodium Potassium Chloride Carbon Dioxide POC BUN BUN Creatinine Glucose POC Glucose 106 H Calcium Magnesium Crossmatch 06/15/16 06/15/16 06/15/16 04:43 04:43 22:49 WBC RBC Hgb 9.2 L POC Hgb Hct 28.4 L POC Hct MCH MCHC RDW Plt Count Lymph % (Auto) [place] % (Auto) Lymph # [place] # Baso # Seg Neutrophils % Seg Neuts % (Manual) Lymphocytes % (Manual) Monocytes % (Manual) Nucleated RBC % Seg Neutrophils # Seg Neutrophils # Man Lymphocytes # (Manual) Monocytes # (Manual) PT INR APTT Fibrinogen Heparin Anti-Xa Level 0.85 H POC ABG pH POC ABG pCO2 POC ABG pO2 POC Potassium POC Chloride Sodium Potassium Chloride Carbon Dioxide POC BUN BUN Creatinine Glucose POC Glucose 134 H Calcium Magnesium Crossmatch 06/16/16 06/16/16 06/16/16 08:55 08:55 14:21 WBC RBC Hgb POC Hgb 5.8 L Hct POC Hct 17 L MCH MCHC RDW Plt Count Lymph % (Auto) [place] % (Auto) Lymph # [place] # Baso # Seg Neutrophils % Seg Neuts % (Manual) Lymphocytes % (Manual) Monocytes % (Manual) Nucleated RBC % Seg Neutrophils # Seg Neutrophils # Man Lymphocytes # (Manual) Monocytes # (Manual) PT INR APTT 20.0 L Fibrinogen Heparin Anti-Xa Level POC ABG pH POC ABG pCO2 POC ABG pO2 POC Potassium 2.9 L POC Chloride Sodium Potassium Chloride Carbon Dioxide POC BUN 7 L BUN Creatinine Glucose POC Glucose 249 H Calcium Magnesium Crossmatch See Detail 06/16/16 06/16/16 06/16/16 16:55 17:41 17:48 WBC RBC Hgb POC Hgb 8.8 L Hct POC Hct 26 L < 15 L MCH MCHC RDW Plt Count Lymph % (Auto) [place] % (Auto) Lymph # [place] # Baso # Seg Neutrophils % Seg Neuts % (Manual) Lymphocytes % (Manual) Monocytes % (Manual) Nucleated RBC % Seg Neutrophils # Seg Neutrophils # Man Lymphocytes # (Manual) Monocytes # (Manual) PT INR APTT Fibrinogen Heparin Anti-Xa Level POC ABG pH 7.031 L POC ABG pCO2 POC ABG pO2 475 H POC Potassium 3.2 L POC Chloride 112 H 114 H Sodium Potassium Chloride Carbon Dioxide POC BUN 7 L 7 L BUN Creatinine Glucose POC Glucose 203 H 291 H Calcium Magnesium Crossmatch 06/16/16 06/16/16 06/16/16 18:07 19:09 20:10 WBC 15.8 H RBC Hgb POC Hgb 6.5 L Hct POC Hct 19 L MCH MCHC RDW Plt Count 38 L Lymph % (Auto) 5.9 L [place] % (Auto) 9.3 H Lymph # 0.9 L [place] # 1.5 H Baso # Seg Neutrophils % 84.6 H Seg Neuts % (Manual) Lymphocytes % (Manual) Monocytes % (Manual) Nucleated RBC % Seg Neutrophils # 13.3 H Seg Neutrophils # Man Lymphocytes # (Manual) Monocytes # (Manual) PT INR APTT Fibrinogen Heparin Anti-Xa Level POC ABG pH POC ABG pCO2 POC ABG pO2 POC Potassium POC Chloride 113 H Sodium Potassium Chloride Carbon Dioxide POC BUN 7 L BUN Creatinine Glucose POC Glucose 263 H 231 H Calcium Magnesium Crossmatch 06/16/16 06/16/16 06/16/16 20:10 20:18 21:10 WBC RBC Hgb POC Hgb Hct POC Hct MCH MCHC RDW Plt Count Lymph % (Auto) [place] % (Auto) Lymph # [place] # Baso # Seg Neutrophils % Seg Neuts % (Manual) Lymphocytes % (Manual) Monocytes % (Manual) Nucleated RBC % Seg Neutrophils # Seg Neutrophils # Man Lymphocytes # (Manual) Monocytes # (Manual) PT INR APTT Fibrinogen Heparin Anti-Xa Level POC ABG pH 7.236 L 7.280 L POC ABG pCO2 POC ABG pO2 139 H 145 H POC Potassium POC Chloride Sodium Potassium 3.4 L Chloride 114.5 H Carbon Dioxide 17 L D POC BUN BUN Creatinine Glucose 188 H POC Glucose Calcium 6.1 L D Magnesium Crossmatch 06/16/16 06/17/16 06/17/16 22:53 04:48 05:35 WBC RBC Hgb POC Hgb Hct POC Hct MCH MCHC RDW Plt Count Lymph % (Auto) [place] % (Auto) Lymph # [place] # Baso # Seg Neutrophils % Seg Neuts % (Manual) Lymphocytes % (Manual) Monocytes % (Manual) Nucleated RBC % Seg Neutrophils # Seg Neutrophils # Man Lymphocytes # (Manual) Monocytes # (Manual) PT INR APTT Fibrinogen Heparin Anti-Xa Level POC ABG pH POC ABG pCO2 33.9 L 22.2 L POC ABG pO2 152 H 154 H POC Potassium POC Chloride Sodium 150 H Potassium 3.4 L Chloride 114.2 H Carbon Dioxide 16 L POC BUN BUN Creatinine Glucose 221 H POC Glucose Calcium 7.6 L D Magnesium Crossmatch 06/17/16 06/18/16 06/18/16 09:22 07:26 08:25 WBC 20.3 H RBC 3.41 L Hgb 9.9 L POC Hgb Hct 29.7 L POC Hct MCH MCHC RDW Plt Count Lymph % (Auto) [place] % (Auto) Lymph # [place] # Baso # Seg Neutrophils % Seg Neuts % (Manual) 81.0 H Lymphocytes % (Manual) 6.0 L Monocytes % (Manual) 12.0 H Nucleated RBC % Seg Neutrophils # Seg Neutrophils # Man 16.4 H Lymphocytes # (Manual) Monocytes # (Manual) 2.4 H PT INR APTT Fibrinogen Heparin Anti-Xa Level POC ABG pH POC ABG pCO2 POC ABG pO2 POC Potassium POC Chloride Sodium Potassium 3.1 L Chloride Carbon Dioxide POC BUN BUN Creatinine Glucose 136 H POC Glucose 141 H Calcium 7.5 L Magnesium Crossmatch 06/18/16 06/18/16 06/18/16 08:25 11:09 19:40 WBC RBC Hgb 6.5 L D POC Hgb Hct 19.3 L* D POC Hct MCH MCHC RDW Plt Count 131 L Lymph % (Auto) [place] % (Auto) Lymph # [place] # Baso # Seg Neutrophils % Seg Neuts % (Manual) Lymphocytes % (Manual) Monocytes % (Manual) Nucleated RBC % Seg Neutrophils # Seg Neutrophils # Man Lymphocytes # (Manual) Monocytes # (Manual) PT INR APTT Fibrinogen Heparin Anti-Xa Level POC ABG pH 7.490 H POC ABG pCO2 POC ABG pO2 131 H POC Potassium POC Chloride Sodium Potassium Chloride Carbon Dioxide POC BUN BUN Creatinine Glucose POC Glucose 125 H Calcium Magnesium Crossmatch 06/18/16 06/19/16 06/19/16 21:10 07:07 07:28 WBC 13.6 H RBC 2.17 L Hgb 6.5 L POC Hgb Hct 18.8 L* POC Hct MCH MCHC 35 H RDW Plt Count 131 L Lymph % (Auto) 10.1 L [place] % (Auto) 9.3 H Lymph # [place] # 1.3 H Baso # Seg Neutrophils % 79.7 H Seg Neuts % (Manual) Lymphocytes % (Manual) Monocytes % (Manual) Nucleated RBC % Seg Neutrophils # 10.8 H Seg Neutrophils # Man Lymphocytes # (Manual) Monocytes # (Manual) PT INR APTT Fibrinogen Heparin Anti-Xa Level 0.75 H POC ABG pH POC ABG pCO2 POC ABG pO2 POC Potassium POC Chloride Sodium Potassium 3.5 L Chloride Carbon Dioxide POC BUN BUN Creatinine Glucose 104 H POC Glucose Calcium 7.6 L Magnesium 1.4 L Crossmatch 06/20/16 06/20/16 06/20/16 04:15 18:15 18:15 WBC 16.6 H RBC 1.19 L Hgb 9.2 L 3.5 L* D POC Hgb Hct 27.5 L D 11.0 L* D POC Hct MCH MCHC RDW Plt Count 138 L Lymph % (Auto) [place] % (Auto) Lymph # [place] # Baso # Seg Neutrophils % Seg Neuts % (Manual) Lymphocytes % (Manual) Monocytes % (Manual) Nucleated RBC % Seg Neutrophils # Seg Neutrophils # Man Lymphocytes # (Manual) Monocytes # (Manual) PT INR APTT Fibrinogen Heparin Anti-Xa Level POC ABG pH POC ABG pCO2 POC ABG pO2 POC Potassium POC Chloride Sodium 146 H Potassium Chloride Carbon Dioxide 14 L D POC BUN BUN Creatinine Glucose 31 L* POC Glucose Calcium 6.7 L Magnesium Crossmatch 06/20/16 06/20/16 06/20/16 18:15 19:33 19:36 WBC RBC Hgb POC Hgb Hct POC Hct MCH MCHC RDW Plt Count Lymph % (Auto) [place] % (Auto) Lymph # [place] # Baso # Seg Neutrophils % Seg Neuts % (Manual) Lymphocytes % (Manual) Monocytes % (Manual) Nucleated RBC % Seg Neutrophils # Seg Neutrophils # Man Lymphocytes # (Manual) Monocytes # (Manual) PT INR APTT Fibrinogen Heparin Anti-Xa Level POC ABG pH POC ABG pCO2 26.3 L POC ABG pO2 394 H POC Potassium POC Chloride Sodium Potassium Chloride Carbon Dioxide POC BUN BUN Creatinine Glucose POC Glucose 212 H Calcium Magnesium Crossmatch See Detail 06/20/16 06/20/16 06/21/16 22:01 23:00 00:35 WBC RBC Hgb POC Hgb Hct POC Hct MCH MCHC RDW Plt Count Lymph % (Auto) [place] % (Auto) Lymph # [place] # Baso # Seg Neutrophils % Seg Neuts % (Manual) Lymphocytes % (Manual) Monocytes % (Manual) Nucleated RBC % Seg Neutrophils # Seg Neutrophils # Man Lymphocytes # (Manual) Monocytes # (Manual) PT 21.3 H INR 1.85 H APTT 48.4 H Fibrinogen Heparin Anti-Xa Level POC ABG pH POC ABG pCO2 POC ABG pO2 POC Potassium POC Chloride Sodium Potassium Chloride Carbon Dioxide POC BUN BUN Creatinine Glucose POC Glucose 149 H 147 H Calcium Magnesium Crossmatch 06/21/16 06/21/16 06/21/16 04:30 04:30 06:01 WBC 21.7 H RBC 3.58 L Hgb POC Hgb Hct POC Hct MCH MCHC 35 H RDW Plt Count 116 L Lymph % (Auto) [place] % (Auto) Lymph # [place] # Baso # Seg Neutrophils % Seg Neuts % (Manual) Lymphocytes % (Manual) 8.0 L Monocytes % (Manual) Nucleated RBC % 3.0 H Seg Neutrophils # Seg Neutrophils # Man 13.7 H Lymphocytes # (Manual) Monocytes # (Manual) 1.5 H PT INR APTT Fibrinogen Heparin Anti-Xa Level POC ABG pH 7.541 H POC ABG pCO2 21.1 L POC ABG pO2 108 H POC Potassium POC Chloride Sodium Potassium 3.0 L Chloride 110.3 H Carbon Dioxide 18 L POC BUN BUN 18 H Creatinine Glucose 141 H POC Glucose Calcium 6.4 L Magnesium Crossmatch 06/21/16 06/21/16 06/21/16 07:00 10:02 17:51 WBC RBC Hgb 8.3 L POC Hgb Hct 24.7 L D POC Hct MCH MCHC RDW Plt Count Lymph % (Auto) [place] % (Auto) Lymph # [place] # Baso # Seg Neutrophils % Seg Neuts % (Manual) Lymphocytes % (Manual) Monocytes % (Manual) Nucleated RBC % Seg Neutrophils # Seg Neutrophils # Man Lymphocytes # (Manual) Monocytes # (Manual) PT INR APTT Fibrinogen Heparin Anti-Xa Level POC ABG pH POC ABG pCO2 POC ABG pO2 POC Potassium POC Chloride Sodium Potassium Chloride Carbon Dioxide POC BUN BUN Creatinine Glucose POC Glucose 132 H 106 H Calcium Magnesium Crossmatch 06/22/16 06/22/16 06/22/16 05:00 05:00 06:40 WBC 20.6 H RBC 3.54 L Hgb POC Hgb Hct POC Hct MCH MCHC RDW Plt Count 129 L Lymph % (Auto) [place] % (Auto) Lymph # [place] # Baso # Seg Neutrophils % Seg Neuts % (Manual) 87.0 H Lymphocytes % (Manual) 4.0 L Monocytes % (Manual) Nucleated RBC % 4.0 H Seg Neutrophils # Seg Neutrophils # Man 17.9 H Lymphocytes # (Manual) 0.8 L Monocytes # (Manual) 1.2 H PT INR APTT Fibrinogen Heparin Anti-Xa Level POC ABG pH POC ABG pCO2 21.9 L POC ABG pO2 118 H POC Potassium POC Chloride Sodium Potassium Chloride 109.9 H Carbon Dioxide 15 L POC BUN BUN 26 H Creatinine 2.2 H D Glucose POC Glucose Calcium 6.3 L Magnesium Crossmatch 06/22/16 06/22/16 06/22/16 09:15 09:15 23:17 WBC RBC Hgb 9.1 L POC Hgb Hct 26.9 L POC Hct MCH MCHC RDW Plt Count 116 L Lymph % (Auto) [place] % (Auto) Lymph # [place] # Baso # Seg Neutrophils % Seg Neuts % (Manual) Lymphocytes % (Manual) Monocytes % (Manual) Nucleated RBC % Seg Neutrophils # Seg Neutrophils # Man Lymphocytes # (Manual) Monocytes # (Manual) PT 15.8 H INR 1.27 H APTT Fibrinogen Heparin Anti-Xa Level POC ABG pH POC ABG pCO2 POC ABG pO2 POC Potassium POC Chloride Sodium Potassium Chloride Carbon Dioxide POC BUN BUN Creatinine Glucose POC Glucose 134 H Calcium Magnesium Crossmatch 06/23/16 06/23/16 06/23/16 05:43 05:43 09:44 WBC 13.8 H RBC 2.70 L Hgb 8.1 L POC Hgb Hct 24.2 L POC Hct MCH MCHC RDW Plt Count 93 L Lymph % (Auto) 6.2 L [place] % (Auto) Lymph # 0.9 L [place] # Baso # Seg Neutrophils % 89.2 H Seg Neuts % (Manual) Lymphocytes % (Manual) Monocytes % (Manual) Nucleated RBC % Seg Neutrophils # 12.3 H Seg Neutrophils # Man Lymphocytes # (Manual) Monocytes # (Manual) PT INR APTT Fibrinogen Heparin Anti-Xa Level POC ABG pH 7.593 H POC ABG pCO2 26.8 L POC ABG pO2 141 H POC Potassium POC Chloride Sodium 146 H Potassium Chloride Carbon Dioxide POC BUN BUN 32 H Creatinine 2.6 H Glucose 142 H POC Glucose Calcium 7.0 L Magnesium Crossmatch 06/23/16 06/23/16 06/23/16 11:23 17:42 23:32 WBC RBC Hgb POC Hgb Hct POC Hct MCH MCHC RDW Plt Count Lymph % (Auto) [place] % (Auto) Lymph # [place] # Baso # Seg Neutrophils % Seg Neuts % (Manual) Lymphocytes % (Manual) Monocytes % (Manual) Nucleated RBC % Seg Neutrophils # Seg Neutrophils # Man Lymphocytes # (Manual) Monocytes # (Manual) PT INR APTT Fibrinogen Heparin Anti-Xa Level POC ABG pH POC ABG pCO2 POC ABG pO2 POC Potassium POC Chloride Sodium Potassium Chloride Carbon Dioxide POC BUN BUN Creatinine Glucose POC Glucose 138 H 133 H 111 H Calcium Magnesium Crossmatch 06/24/16 06/24/16 06/24/16 06:27 08:10 08:10 WBC 16.6 H RBC 2.91 L Hgb 8.9 L POC Hgb Hct 26.4 L POC Hct MCH MCHC RDW 15.6 H Plt Count 115 L Lymph % (Auto) 4.6 L [place] % (Auto) Lymph # 0.8 L [place] # 1.0 H Baso # Seg Neutrophils % 89.2 H Seg Neuts % (Manual) Lymphocytes % (Manual) Monocytes % (Manual) Nucleated RBC % Seg Neutrophils # 14.9 H Seg Neutrophils # Man Lymphocytes # (Manual) Monocytes # (Manual) PT INR APTT Fibrinogen Heparin Anti-Xa Level POC ABG pH POC ABG pCO2 POC ABG pO2 POC Potassium POC Chloride Sodium 146 H Potassium Chloride Carbon Dioxide POC BUN BUN 37 H Creatinine 2.9 H Glucose POC Glucose 109 H Calcium 7.5 L Magnesium Crossmatch 06/24/16 06/24/16 06/24/16 12:05 17:57 22:13 WBC RBC Hgb POC Hgb Hct POC Hct MCH MCHC RDW Plt Count Lymph % (Auto) [place] % (Auto) Lymph # [place] # Baso # Seg Neutrophils % Seg Neuts % (Manual) Lymphocytes % (Manual) Monocytes % (Manual) Nucleated RBC % Seg Neutrophils # Seg Neutrophils # Man Lymphocytes # (Manual) Monocytes # (Manual) PT INR APTT Fibrinogen Heparin Anti-Xa Level POC ABG pH POC ABG pCO2 POC ABG pO2 POC Potassium POC Chloride Sodium Potassium Chloride Carbon Dioxide POC BUN BUN Creatinine Glucose POC Glucose 117 H 124 H 116 H Calcium Magnesium Crossmatch 06/25/16 06/25/16 06/25/16 06:42 06:49 12:14 WBC RBC Hgb POC Hgb Hct POC Hct MCH MCHC RDW Plt Count Lymph % (Auto) [place] % (Auto) Lymph # [place] # Baso # Seg Neutrophils % Seg Neuts % (Manual) Lymphocytes % (Manual) Monocytes % (Manual) Nucleated RBC % Seg Neutrophils # Seg Neutrophils # Man Lymphocytes # (Manual) Monocytes # (Manual) PT INR APTT Fibrinogen Heparin Anti-Xa Level POC ABG pH POC ABG pCO2 POC ABG pO2 POC Potassium POC Chloride Sodium Potassium Chloride Carbon Dioxide POC BUN BUN 46 H Creatinine 3.6 H Glucose 133 H POC Glucose 137 H 136 H Calcium 7.4 L Magnesium Crossmatch 06/25/16 06/25/16 06/26/16 16:07 21:32 05:55 WBC RBC Hgb POC Hgb Hct POC Hct MCH MCHC RDW Plt Count Lymph % (Auto) [place] % (Auto) Lymph # [place] # Baso # Seg Neutrophils % Seg Neuts % (Manual) Lymphocytes % (Manual) Monocytes % (Manual) Nucleated RBC % Seg Neutrophils # Seg Neutrophils # Man Lymphocytes # (Manual) Monocytes # (Manual) PT INR APTT Fibrinogen Heparin Anti-Xa Level POC ABG pH POC ABG pCO2 POC ABG pO2 POC Potassium POC Chloride Sodium Potassium Chloride Carbon Dioxide 20 L POC BUN BUN 55 H Creatinine 4.2 H Glucose 120 H POC Glucose 146 H 146 H Calcium 7.5 L Magnesium Crossmatch 06/26/16 06/26/16 06/26/16 06:30 11:38 16:45 WBC RBC Hgb POC Hgb Hct POC Hct MCH MCHC RDW Plt Count Lymph % (Auto) [place] % (Auto) Lymph # [place] # Baso # Seg Neutrophils % Seg Neuts % (Manual) Lymphocytes % (Manual) Monocytes % (Manual) Nucleated RBC % Seg Neutrophils # Seg Neutrophils # Man Lymphocytes # (Manual) Monocytes # (Manual) PT INR APTT Fibrinogen Heparin Anti-Xa Level POC ABG pH POC ABG pCO2 POC ABG pO2 POC Potassium POC Chloride Sodium Potassium Chloride Carbon Dioxide POC BUN BUN Creatinine Glucose POC Glucose 128 H 143 H 121 H Calcium Magnesium Crossmatch 06/26/16 06/26/16 06/27/16 22:57 22:57 00:47 WBC RBC Hgb 8.4 L POC Hgb Hct 25.1 L POC Hct MCH MCHC RDW Plt Count Lymph % (Auto) [place] % (Auto) Lymph # [place] # Baso # Seg Neutrophils % Seg Neuts % (Manual) Lymphocytes % (Manual) Monocytes % (Manual) Nucleated RBC % Seg Neutrophils # Seg Neutrophils # Man Lymphocytes # (Manual) Monocytes # (Manual) PT 19.9 H INR 1.69 H APTT Fibrinogen Heparin Anti-Xa Level POC ABG pH POC ABG pCO2 POC ABG pO2 POC Potassium POC Chloride Sodium Potassium Chloride Carbon Dioxide POC BUN BUN Creatinine Glucose POC Glucose 110 H Calcium Magnesium Crossmatch 06/27/16 06/27/16 06/27/16 05:43 05:43 06:40 WBC RBC Hgb POC Hgb Hct POC Hct MCH MCHC RDW Plt Count Lymph % (Auto) [place] % (Auto) Lymph # [place] # Baso # Seg Neutrophils % Seg Neuts % (Manual) Lymphocytes % (Manual) Monocytes % (Manual) Nucleated RBC % Seg Neutrophils # Seg Neutrophils # Man Lymphocytes # (Manual) Monocytes # (Manual) PT INR APTT Fibrinogen Heparin Anti-Xa Level 2.00 H POC ABG pH POC ABG pCO2 POC ABG pO2 POC Potassium POC Chloride Sodium Potassium Chloride Carbon Dioxide 20 L POC BUN BUN 58 H Creatinine 4.8 H Glucose POC Glucose 109 H Calcium 8.1 L Magnesium Crossmatch 06/27/16 06/27/16 06/27/16 08:15 16:46 17:47 WBC RBC Hgb POC Hgb Hct POC Hct MCH MCHC RDW Plt Count Lymph % (Auto) [place] % (Auto) Lymph # [place] # Baso # Seg Neutrophils % Seg Neuts % (Manual) Lymphocytes % (Manual) Monocytes % (Manual) Nucleated RBC % Seg Neutrophils # Seg Neutrophils # Man Lymphocytes # (Manual) Monocytes # (Manual) PT INR APTT Fibrinogen Heparin Anti-Xa Level > 2.00 H 1.87 H POC ABG pH POC ABG pCO2 POC ABG pO2 POC Potassium POC Chloride Sodium Potassium Chloride Carbon Dioxide POC BUN BUN Creatinine Glucose POC Glucose 231 H Calcium Magnesium Crossmatch 06/27/16 06/27/16 06/28/16 21:23 23:54 06:27 WBC RBC Hgb POC Hgb Hct POC Hct MCH MCHC RDW Plt Count Lymph % (Auto) Mccone % (Auto) Lymph # Mccone # Baso # Seg Neutrophils % Seg Neuts % (Manual) Lymphocytes % (Manual) Monocytes % (Manual) Nucleated RBC % Seg Neutrophils # Seg Neutrophils # Man Lymphocytes # (Manual) Monocytes # (Manual) PT INR APTT Fibrinogen Heparin Anti-Xa Level 1.70 H POC ABG pH POC ABG pCO2 POC ABG pO2 POC Potassium POC Chloride Sodium Potassium Chloride Carbon Dioxide POC BUN BUN 62 H Creatinine 4.5 H Glucose 111 H POC Glucose 122 H Calcium 8.3 L Magnesium Crossmatch 06/28/16 06/28/16 06/28/16 06:27 11:47 14:14 WBC RBC Hgb 7.7 L POC Hgb Hct 22.9 L POC Hct MCH MCHC RDW Plt Count Lymph % (Auto) [place] % (Auto) Lymph # [facility] # Baso # Seg Neutrophils % Seg Neuts % (Manual) Lymphocytes % (Manual) Monocytes % (Manual) Nucleated RBC % Seg Neutrophils # Seg Neutrophils # Man Lymphocytes # (Manual) Monocytes # (Manual) PT INR APTT Fibrinogen Heparin Anti-Xa Level POC ABG pH 7.461 H POC ABG pCO2 31.9 L POC ABG pO2 73 L POC Potassium POC Chloride Sodium Potassium Chloride Carbon Dioxide POC BUN BUN Creatinine Glucose POC Glucose 155 H Calcium Magnesium Crossmatch 06/28/16 06/28/16 06/28/16 16:27 20:47 22:59 WBC RBC Hgb POC Hgb Hct POC Hct MCH MCHC RDW Plt Count Lymph % (Auto) Mccone % (Auto) Lymph # [place] # Baso # Seg Neutrophils % Seg Neuts % (Manual) Lymphocytes % (Manual) Monocytes % (Manual) Nucleated RBC % Seg Neutrophils # Seg Neutrophils # Man Lymphocytes # (Manual) Monocytes # (Manual) PT INR APTT Fibrinogen Heparin Anti-Xa Level 1.16 H POC ABG pH POC ABG pCO2 POC ABG pO2 POC Potassium POC Chloride Sodium Potassium Chloride Carbon Dioxide POC BUN BUN Creatinine Glucose POC Glucose 193 H 126 H Calcium Magnesium Crossmatch 06/29/16 06/29/16 06/29/16 05:51 09:10 09:10 WBC RBC Hgb POC Hgb Hct POC Hct MCH MCHC RDW Plt Count Lymph % (Auto) M[place]one % (Auto) Lymph # [place] # Baso # Seg Neutrophils % Seg Neuts % (Manual) Lymphocytes % (Manual) Monocytes % (Manual) Nucleated RBC % Seg Neutrophils # Seg Neutrophils # Man Lymphocytes # (Manual) Monocytes # (Manual) PT INR APTT Fibrinogen Heparin Anti-Xa Level 0.92 H POC ABG pH POC ABG pCO2 POC ABG pO2 POC Potassium POC Chloride Sodium Potassium Chloride Carbon Dioxide POC BUN BUN 53 H Creatinine 3.7 H Glucose 139 H POC Glucose 121 H Calcium 8.2 L Magnesium Crossmatch 06/29/16 06/30/16 06/30/16 21:22 05:09 08:07 WBC RBC Hgb 7.3 L POC Hgb Hct 21.9 L POC Hct MCH MCHC RDW Plt Count Lymph % (Auto) M[place] % (Auto) Lymph # [place] # Baso # Seg Neutrophils % Seg Neuts % (Manual) Lymphocytes % (Manual) Monocytes % (Manual) Nucleated RBC % Seg Neutrophils # Seg Neutrophils # Man Lymphocytes # (Manual) Monocytes # (Manual) PT INR APTT Fibrinogen Heparin Anti-Xa Level POC ABG pH POC ABG pCO2 POC ABG pO2 POC Potassium POC Chloride Sodium Potassium Chloride Carbon Dioxide POC BUN BUN Creatinine Glucose POC Glucose 108 H 106 H Calcium Magnesium Crossmatch 06/30/16 06/30/16 06/30/16 10:48 12:13 16:48 WBC RBC Hgb POC Hgb Hct POC Hct MCH MCHC RDW Plt Count Lymph % (Auto) [place] % (Auto) Lymph # [place] # Baso # Seg Neutrophils % Seg Neuts % (Manual) Lymphocytes % (Manual) Monocytes % (Manual) Nucleated RBC % Seg Neutrophils # Seg Neutrophils # Man Lymphocytes # (Manual) Monocytes # (Manual) PT INR APTT Fibrinogen Heparin Anti-Xa Level POC ABG pH POC ABG pCO2 POC ABG pO2 POC Potassium POC Chloride Sodium Potassium Chloride Carbon Dioxide POC BUN BUN 46 H Creatinine 3.0 H Glucose POC Glucose 153 H 152 H Calcium Magnesium Crossmatch 06/30/16 07/01/16 07/01/16 21:47 05:47 07:44 WBC 19.8 H RBC 2.45 L Hgb 7.2 L POC Hgb Hct 22.2 L POC Hct MCH MCHC RDW Plt Count 481 H Lymph % (Auto) 5.5 L M[place]one % (Auto) Lymph # 1.1 L Mccone # 1.4 H Baso # Seg Neutrophils % 86.8 H Seg Neuts % (Manual) Lymphocytes % (Manual) Monocytes % (Manual) Nucleated RBC % Seg Neutrophils # 17.1 H Seg Neutrophils # Man Lymphocytes # (Manual) Monocytes # (Manual) PT INR APTT Fibrinogen Heparin Anti-Xa Level POC ABG pH POC ABG pCO2 POC ABG pO2 POC Potassium POC Chloride Sodium Potassium Chloride Carbon Dioxide POC BUN BUN Creatinine Glucose POC Glucose 162 H 124 H Calcium Magnesium Crossmatch 07/01/16 07/01/16 07/01/16 07:44 11:55 16:16 WBC RBC Hgb POC Hgb Hct POC Hct MCH MCHC RDW Plt Count Lymph % (Auto) [place] % (Auto) Lymph # [place] # Baso # Seg Neutrophils % Seg Neuts % (Manual) Lymphocytes % (Manual) Monocytes % (Manual) Nucleated RBC % Seg Neutrophils # Seg Neutrophils # Man Lymphocytes # (Manual) Monocytes # (Manual) PT INR APTT Fibrinogen Heparin Anti-Xa Level POC ABG pH POC ABG pCO2 POC ABG pO2 POC Potassium POC Chloride Sodium Potassium 3.1 L Chloride Carbon Dioxide POC BUN BUN 38 H Creatinine 2.2 H Glucose 114 H POC Glucose 114 H 143 H Calcium Magnesium Crossmatch 07/01/16 07/02/16 07/02/16 21:42 05:40 06:46 WBC 18.1 H RBC 2.45 L Hgb 7.3 L POC Hgb Hct 21.8 L POC Hct MCH MCHC RDW Plt Count 490 H Lymph % (Auto) 6.1 L M[place] % (Auto) Lymph # 1.1 L M[facility]one # 1.1 H Baso # 0.2 H Seg Neutrophils % 86.0 H Seg Neuts % (Manual) Lymphocytes % (Manual) Monocytes % (Manual) Nucleated RBC % Seg Neutrophils # 15.6 H Seg Neutrophils # Man Lymphocytes # (Manual) Monocytes # (Manual) PT INR APTT Fibrinogen Heparin Anti-Xa Level POC ABG pH POC ABG pCO2 POC ABG pO2 POC Potassium POC Chloride Sodium Potassium Chloride Carbon Dioxide POC BUN BUN Creatinine Glucose POC Glucose 135 H 135 H Calcium Magnesium Crossmatch 07/02/16 07/02/16 07/02/16 06:46 06:49 11:23 WBC RBC Hgb POC Hgb Hct POC Hct MCH MCHC RDW Plt Count Lymph % (Auto) [place] % (Auto) Lymph # [place] # Baso # Seg Neutrophils % Seg Neuts % (Manual) Lymphocytes % (Manual) Monocytes % (Manual) Nucleated RBC % Seg Neutrophils # Seg Neutrophils # Man Lymphocytes # (Manual) Monocytes # (Manual) PT INR APTT Fibrinogen Heparin Anti-Xa Level POC ABG pH POC ABG pCO2 POC ABG pO2 POC Potassium POC Chloride Sodium Potassium 2.8 L* Chloride Carbon Dioxide POC BUN BUN 30 H Creatinine 1.8 H Glucose 121 H POC Glucose 121 H Calcium 8.1 L Magnesium 1.3 L Crossmatch 07/02/16 07/02/16 07/03/16 17:02 21:31 05:35 WBC RBC Hgb POC Hgb Hct POC Hct MCH MCHC RDW Plt Count Lymph % (Auto) [place] % (Auto) Lymph # [place] # Baso # Seg Neutrophils % Seg Neuts % (Manual) Lymphocytes % (Manual) Monocytes % (Manual) Nucleated RBC % Seg Neutrophils # Seg Neutrophils # Man Lymphocytes # (Manual) Monocytes # (Manual) PT INR APTT Fibrinogen Heparin Anti-Xa Level POC ABG pH POC ABG pCO2 POC ABG pO2 POC Potassium POC Chloride Sodium Potassium Chloride Carbon Dioxide POC BUN BUN Creatinine Glucose POC Glucose 121 H 159 H 149 H Calcium Magnesium Crossmatch 07/03/16 07/03/16 07/03/16 06:45 06:45 06:45 WBC 16.8 H RBC 2.21 L Hgb 6.5 L POC Hgb Hct 19.4 L* POC Hct MCH MCHC RDW Plt Count 503 H Lymph % (Auto) 6.4 L M[place]one % (Auto) Lymph # 1.1 L M[facility]one # 1.1 H Baso # Seg Neutrophils % 85.6 H Seg Neuts % (Manual) Lymphocytes % (Manual) Monocytes % (Manual) Nucleated RBC % Seg Neutrophils # 14.4 H Seg Neutrophils # Man Lymphocytes # (Manual) Monocytes # (Manual) PT INR APTT Fibrinogen Heparin Anti-Xa Level POC ABG pH POC ABG pCO2 POC ABG pO2 POC Potassium POC Chloride Sodium Potassium 2.9 L* Chloride Carbon Dioxide POC BUN BUN 21 H Creatinine 1.6 H Glucose 126 H POC Glucose Calcium 8.0 L Magnesium 1.6 L Crossmatch 07/03/16 07/03/16 07/03/16 12:54 19:00 20:01 WBC RBC Hgb POC Hgb Hct POC Hct MCH MCHC RDW Plt Count Lymph % (Auto) M[place] % (Auto) Lymph # [place] # Baso # Seg Neutrophils % Seg Neuts % (Manual) Lymphocytes % (Manual) Monocytes % (Manual) Nucleated RBC % Seg Neutrophils # Seg Neutrophils # Man Lymphocytes # (Manual) Monocytes # (Manual) PT INR APTT Fibrinogen Heparin Anti-Xa Level POC ABG pH 7.302 L POC ABG pCO2 49.8 H POC ABG pO2 422 H POC Potassium POC Chloride Sodium Potassium Chloride Carbon Dioxide POC BUN BUN Creatinine Glucose POC Glucose 129 H Calcium Magnesium Crossmatch See Detail 07/03/16 07/04/16 07/04/16 23:09 04:30 04:30 WBC 19.6 H RBC 3.21 L Hgb 9.4 L POC Hgb Hct 28.2 L POC Hct MCH MCHC RDW Plt Count Lymph % (Auto) 6.5 L [place] % (Auto) Lymph # [place] # 1.2 H Baso # Seg Neutrophils % 86.4 H Seg Neuts % (Manual) Lymphocytes % (Manual) Monocytes % (Manual) Nucleated RBC % Seg Neutrophils # 16.9 H Seg Neutrophils # Man Lymphocytes # (Manual) Monocytes # (Manual) PT INR APTT Fibrinogen Heparin Anti-Xa Level POC ABG pH POC ABG pCO2 POC ABG pO2 POC Potassium POC Chloride Sodium Potassium 3.5 L D Chloride 111.2 H Carbon Dioxide 20 L POC BUN BUN 18 H Creatinine Glucose POC Glucose 111 H Calcium 7.0 L Magnesium Crossmatch 07/04/16 07/04/16 07/04/16 05:44 12:50 14:33 WBC RBC Hgb POC Hgb Hct POC Hct MCH MCHC RDW Plt Count Lymph % (Auto) M[place] % (Auto) Lymph # [place] # Baso # Seg Neutrophils % Seg Neuts % (Manual) Lymphocytes % (Manual) Monocytes % (Manual) Nucleated RBC % Seg Neutrophils # Seg Neutrophils # Man Lymphocytes # (Manual) Monocytes # (Manual) PT INR APTT Fibrinogen Heparin Anti-Xa Level POC ABG pH 7.465 H 7.468 H POC ABG pCO2 29.5 L 29.1 L 33.1 L POC ABG pO2 110 H 39 L POC Potassium POC Chloride Sodium Potassium Chloride Carbon Dioxide POC BUN BUN Creatinine Glucose POC Glucose Calcium Magnesium Crossmatch 07/04/16 07/05/16 07/05/16 16:49 00:20 04:19 WBC 16.2 H RBC 3.44 L Hgb POC Hgb Hct POC Hct MCH MCHC RDW Plt Count Lymph % (Auto) 5.2 L M[place]one % (Auto) 7.5 H Lymph # 0.8 L M[facility]one # 1.2 H Baso # Seg Neutrophils % 86.5 H Seg Neuts % (Manual) Lymphocytes % (Manual) Monocytes % (Manual) Nucleated RBC % Seg Neutrophils # 14.0 H Seg Neutrophils # Man Lymphocytes # (Manual) Monocytes # (Manual) PT INR APTT Fibrinogen Heparin Anti-Xa Level POC ABG pH POC ABG pCO2 31.1 L POC ABG pO2 110 H POC Potassium POC Chloride Sodium Potassium Chloride Carbon Dioxide POC BUN BUN Creatinine Glucose POC Glucose 168 H Calcium Magnesium Crossmatch 07/05/16 07/05/16 07/05/16 04:19 06:01 09:54 WBC RBC Hgb POC Hgb Hct POC Hct MCH MCHC RDW Plt Count Lymph % (Auto) M[place] % (Auto) Lymph # [place] # Baso # Seg Neutrophils % Seg Neuts % (Manual) Lymphocytes % (Manual) Monocytes % (Manual) Nucleated RBC % Seg Neutrophils # Seg Neutrophils # Man Lymphocytes # (Manual) Monocytes # (Manual) PT INR APTT Fibrinogen Heparin Anti-Xa Level POC ABG pH POC ABG pCO2 POC ABG pO2 POC Potassium POC Chloride Sodium 146 H Potassium 3.5 L Chloride 109.1 H Carbon Dioxide POC BUN BUN Creatinine Glucose 135 H POC Glucose 146 H 284 H Calcium 7.8 L Magnesium Crossmatch 07/05/16 07/06/16 07/06/16 13:35 04:40 04:40 WBC 17.7 H RBC 3.32 L Hgb 9.8 L POC Hgb Hct 29.8 L POC Hct MCH MCHC RDW Plt Count Lymph % (Auto) M[place]one % (Auto) Lymph # [place] # Baso # Seg Neutrophils % Seg Neuts % (Manual) 85.0 H Lymphocytes % (Manual) 4.0 L Monocytes % (Manual) 10.0 H Nucleated RBC % Seg Neutrophils # Seg Neutrophils # Man 15.0 H Lymphocytes # (Manual) 0.7 L Monocytes # (Manual) 1.8 H PT INR APTT Fibrinogen Heparin Anti-Xa Level POC ABG pH POC ABG pCO2 POC ABG pO2 POC Potassium POC Chloride Sodium Potassium 3.5 L Chloride Carbon Dioxide 21 L POC BUN BUN Creatinine Glucose 108 H POC Glucose 130 H Calcium 7.8 L Magnesium Crossmatch 07/06/16 07/06/16 07:46 11:49 WBC RBC Hgb POC Hgb Hct POC Hct MCH MCHC RDW Plt Count Lymph % (Auto) M[place]one % (Auto) Lymph # [place] # Baso # Seg Neutrophils % Seg Neuts % (Manual) Lymphocytes % (Manual) Monocytes % (Manual) Nucleated RBC % Seg Neutrophils # Seg Neutrophils # Man Lymphocytes # (Manual) Monocytes # (Manual) PT INR APTT Fibrinogen Heparin Anti-Xa Level POC ABG pH POC ABG pCO2 POC ABG pO2 POC Potassium POC Chloride Sodium Potassium Chloride Carbon Dioxide POC BUN BUN Creatinine Glucose POC Glucose 149 H 146 H Calcium Magnesium Crossmatch Chest x-ray: report reviewed (No acute findings.), image reviewed
--- NOTE | 2016-07-06 17:24 | Consultation ---
History of Present Illness - Reason for Consult Consult date: 07/06/16 Fever & leukocytosis Requesting physician: RAOUL DUENAS - History of Present Illness Cande Ge is a 55-year-old female with severe peripheral vascular disease, type 2 DM with peripheral neuropathy and hypertension who was admitted to [facility] as an outpatient with left lower extremity pain at rest for her cutaneous intervention which was unsuccessful. With that she was admitted and underwent left common femoral and distal external iliac endarterectomy, left external Iliac angioplasty and stent with 7 x 10 cm and 7 x 5 cm Viabahn Stent Grafts and 7 x 40 Balloon, left SFA remote endarterectomy and left femoral artery to popliteal artery bypass with In Situ greater saphenous vein graft on 06/16. She has had a complicated hospital stay and on 06/20 she was brought back to the operating room with left lower extremity ischemia and underwent ultrasound- guided access right common femoral artery, diagnostic left lower extremity arteriogram, percutaneous mechanical thrombectomy of left external iliac artery With AngioJet catheter, percutaneous mechanical thrombectomy of left femoropopliteal bypass graft with AngioJet catheter, angioplasty and stenting graft of left external iliac artery with 8 x 38 mm iCAST stent graft, angioplasty of left popliteal artery with 5 x 100 Lutonix Drug coated balloon and closure of right femoral arteriotomy with 6 [place] Angio-Seal. Postoperatively she had 2 cardiac arrests requiring resuscitation and intubation with transient mechanical ventilatory support ( from 06/20-). She also had developed evidence of bleeding and a CT scan done on 06/27 showed evidence of a retroperitoneal hematoma as well as bilateral hydroureteronephrosis for which she underwent bilateral ureteral stent placements. She then subsequently developed evidence of acute right lower extremity ischemia and occlusion of the right common femoral artery and was brought back to the operating room where she underwent emergent right common femoral thromboendarterectomy with bovine pericardial patch angioplasty. She also developed REJI/ATN but did not require dialysis. She has had a low- grade fever and leukocytosis and consultation is obtained or infectious disease evaluation and appropriate antibiotic therapy. Currently she states that she "feels better" but is still having bilateral lower extremity pain. She is unaware of any fever or chills. She is unaware of any diarrhea and is not having shortness of breath, cough or pleuritic chest pain. Review of systems General: No fevers or chills, no change in appetite, no weight change HEENT: no odynophagia, no dysphagia, no oral lesions, no vision changes CV: no chest pain, no palpitations Chest: no dyspnea, no cough GI: no abdominal pain, no N/V, no diarrhea : no change in urinary frequency, no dysuria, no hematuria Skin: no rashes; Ext: See HPI Neuro: no headaches, no numbness/tingling, no tremors Endocrine:Type 2 DM as per HPI Psych: no anxiety, no depression Infectious diseases: No HIV risk factors, No history of STDs, No significant travel or animal contact history. Past History Past Medical History: diabetes, hypertension, PVD, other (Obesity) Past Surgical History: Other (revascularization procedures) Social history: lives with family (sister). denies: alcohol abuse, prescription drug abuse Family history: diabetes, hypertension Medications and Allergies Allergies Allergy/AdvReac Type Severity Reaction Status Date / Time No Known Allergies Allergy Verified 01/24/15 14:51 Home Medications Medication Instructions Recorded Confirmed Last Taken Type Aspirin EC [Aspirin Enteric Coated 81 mg PO QDAY 01/25/15 06/13/16 06/13/16 History TAB] Atenolol/Chlorthalidone 1 each PO DAILY 01/25/15 06/13/16 06/13/16 History [Atenolol-Chlorthalidone 50-25] Clopidogrel [Plavix] 75 mg PO QDAY 01/25/15 06/13/16 06/13/16 History Ergocalciferol [Vitamin D2] 1 cap PO QWEEK 01/25/15 06/13/16 06/09/16 History Gabapentin [Neurontin] 300 mg PO Q8H 01/25/15 06/13/16 06/13/16 History Potassium Chloride 10 meq PO QDAY 01/25/15 06/13/16 06/13/16 History AtorvaSTATin [Lipitor] 40 mg PO QHS 06/22/16 06/22/16 Unknown History Ferrous Sulfate [Feosol 325 MG tab] 325 mg PO QDAY 06/22/16 06/22/16 Unknown History Metformin HCl [Glucophage] 1,000 mg PO BID 06/22/16 06/22/16 Unknown History Apixaban [Eliquis] 5 mg PO Q12HR tablet 07/01/16 Unknown Rx Clopidogrel [Plavix] 75 mg PO QDAY tablet 07/01/16 Unknown Rx Active Meds: Active Medications Acetaminophen/Hydrocodone Bitart ([place] 7.5/325) 1 each PO Q4H PRN PRN Reason: Pain, Moderate (4-6) Last Admin: 07/06/16 10:24 Dose: 1 each Aspirin (Baby Aspirin) 81 mg PO QDAY [facility] Last Admin: 07/06/16 10:25 Dose: 81 mg Atenolol (Tenormin) 50 mg PO QDAY [facility] Last Admin: 07/06/16 10:26 Dose: 50 mg Atorvastatin Calcium (Lipitor) 40 mg PO QHS [facility] Last Admin: 07/05/16 23:29 Dose: 40 mg Clopidogrel Bisulfate (Plavix) 75 mg PO QDAY [facility] Last Admin: 07/06/16 10:26 Dose: 75 mg Ergocalciferol (Vitamin D2) 50,000 unit PO Mo [facility] Last Admin: 06/30/16 11:18 Dose: 50,000 unit Ferrous Sulfate (Ferrous Sulfate) 300 mg PO QDAY [facility] Last Admin: 07/06/16 10:26 Dose: 300 mg Hydrophilic Ointment (Vaseline Lip Therapy) 1 applic TP Q2H PRN PRN Reason: Dry Lips Sodium Chloride (Nacl 0.9% 1000 Ml) 1,000 mls @ 75 mls/hr IV DIRECT ANNA Last Admin: 07/05/16 13:39 Dose: 75 mls/hr Potassium Chloride/Dextrose/Sod Cl (D5w/0.45% Nacl/Kcl 20 Meq) 1,000 mls @ 75 mls/hr IV DIRECT ANNA Levalbuterol HCl (Xopenex) 1.25 mg IH Q8HRT PRN PRN Reason: Shortness Of Breath Last Admin: 07/06/16 08:18 Dose: 1.25 mg Morphine Sulfate (Morphine) 4 mg IV Q4H PRN PRN Reason: Pain , Severe (7-10) Last Admin: 07/06/16 12:13 Dose: 4 mg Morphine Sulfate (Morphine) 2 mg IV Q4H PRN PRN Reason: Pain, Moderate (4-6) Last Admin: 07/05/16 17:17 Dose: 2 mg Multi-Ingred Cream/Lotion/Oil/Oint (Artificial Tears Ophth Oint) 1 applic OU Q4H PRN PRN Reason: Dry Eye(s) Naloxone HCl (Narcan 0.4 Mg/1 Ml) 0.1 mg IV Q2MIN PRN PRN Reason: Res Rate </= 8 or 02 SAT < 92% Ondansetron HCl (Zofran) 4 mg IV Q8H PRN PRN Reason: Nausea And Vomiting Last Admin: 06/16/16 22:21 Dose: 4 mg Pantoprazole (Protonix) 40 mg PO DAILY [facility] Last Admin: 07/06/16 10:26 Dose: 40 mg Potassium Chloride (Potassium Chloride) 20 meq FEEDTUBE QDAY ANNA Last Admin: 07/06/16 10:26 Dose: 20 meq Silver Sulfadiazine (Thermazene 50 Gram) 1 applic TP QDAY [facility] Last Admin: 07/06/16 11:38 Dose: 1 applic Sodium Chloride (Nacl 0.9%) 1,000 ml IR PRN PRN PRN Reason: Wound Care Physical Examination - Physical Exam Narrative exam: GENERAL: Well-developed, well-nourished appearing female who appears somewhat older than her stated age and appears chronically ill but is in no acute distress. HEAD: Normocephalic. No lesions seen. EYES: Pupils are equal reactive to light and accommodation. There is no scleral icterus. Optic fundi are not examined. EARS: External ears are normal. THROAT: Oropharynx is normal with no evidence of oral candidiasis or pharyngitis. Patient is edentulous. NECK: Supple. No enlargement of the thyroid gland. No significant cervical lymphadenopathy. No jugular venous distention at 30. LUNGS: Clear with no adventitious sounds. HEART: Regular rate with occasional extra beat heard. S1 and S2 are normal. There are no murmurs, gallops, clicks or rubs heard. ABDOMEN: Soft and nontender. Liver and spleen are not palpably enlarged or tender. No palpable masses. Bowel sounds are normoactive. EXTREMITIES: No peripheral lymphadenopathy or clubbing. There is moderate bilateral lower extremity edema with diffuse tenderness to palpation but no increased erythema. Both lower extremities are warm. SKIN: Multiple surgical wounds show no evidence of wound infection. The right femoral incision has some mild sanguinous drainage. It is also some mild epidermal sloughing of the left lower extremity incision without malodor nor purulent drainage. : Normal external female. No Gillespie catheter. NEUROLOGIC: Bilateral lower extremity weakness. No other focal findings. - Constitutional Vitals: Vital Signs Temp Pulse Resp BP Pulse Ox 99.5 F 105 H 19 151/101 99 07/06/16 16:03 07/06/16 17:00 07/06/16 17:00 07/06/16 17:00 07/06/16 17:00 Temperature -Last 24 Hours Temperature 99.5 F Temperature 100.6 F Temperature 99.6 F Results - Labs CBC & Chem 7: 07/06/16 04:40 07/06/16 04:40 Labs: Abnormal lab results Microbiology 07/03/16 18:55 Tracheal Aspirate Sputum Culture - oropharyngeal contamination 06/21/16 17:45 Peripheral/Venous Blood Culture - Final NO GROWTH AFTER 5 DAYS 06/21/16 17:30 Peripheral/Venous Blood Culture - Final NO GROWTH AFTER 5 DAYS 06/21/16 21:00 Urine,Catheterized - Indwelling Catheter Urine Culture - Final NO GROWTH AFTER 48 HOURS 06/20/16 22:30 Stool Stool Culture - no enteric pathogens 06/20/16 22:30 Stool C. difficile DNA Amplification - negative 06/20/16 22:30 Stool Stool Occult Blood (KIERRA) - positive 06/17/16 11:06 Tracheal Aspirate Sputum Culture - Final Escherichia Coli Imagin/25: CXR: Persistent left basilar opacity without change 06/27: CT abdomen/pelvis: Left hemipelvic and small left groin hematomas. Bilateral hydroureteronephrosis. Assessment and Plan Current antibiotics: None Previous antibiotics: Zosyn 2.25 g IV q8h 06/21-06/24 Cefazolin perioperatively ASSESSMENT: Cande Ge is a 55-year-old female with severe peripheral vascular disease, type 2 DM with peripheral neuropathy and hypertension who was admitted to [facility] as an outpatient with left lower extremity pain at rest for her cutaneous intervention which was unsuccessful and subsequently underwent left femoral endarterectomy and left iliac stenting and left femoral-popliteal bypass on 06/16 , urgent thrombectomies on 06/20 and right femoral endarterectomy with patch angioplasty on 07/03. She also had 2 cardiac arrests on 06/20 requiring resuscitation and intubation. She developed evidence of a retroperitoneal hematoma and ureteral obstruction and underwent bilateral ureteral stenting on 06/27. She has had a low-grade fever and leukocytosis. Problem list: 1. Leukocytosis -Likely reactive -Patient has multiple reasons for leukocytosis including retroperitoneal hematoma , GI bleeding and multiple surgeries -No signs of active infection on exam at present and workup to date. -She is certainly set up for possible infectious complications however. 2. Low-grade fever -Same discussion as above 3. Severe peripheral vascular disease -Unsuccessful attempt at percutaneous left lower extremity revascularization 06/13 -Left femoral endarterectomy, left iliac stenting and left femoral-popliteal bypass on 06/16 -Left lower extremity thrombectomies on 06/20 -Right femoral endarterectomy with patch angioplasty on 07/03 4. Retroperitoneal hematoma -As seen on CT scan 06/27 5. Bilateral hydroureteronephrosis -Status post bilateral ureteral stenting 06/27 6. Status post cardiopulmonary arrests X 2 -06/20 -Mechanical ventilatory support until 07/05 7. REJI -Creatinine peaked at 4.8 on 06/27 -Likely secondary to ATN -Resolved 8. Anemia -Likely multifactorial secondary to bleeding and chronic disease 9. type 2 DM PLAN: 1. Will recheck blood cultures 2. Urinalysis and urine culture 3. With patient clinically stable we will not start empiric antibiotics at this point most likely her leukocytosis is of noninfectious etiology(ies). 4. Continued supportive measures and close observation 5. Will check liver tests Thank you for this consultation. We will follow with you. Soham Iverson MD [facility] Office: [phone]
--- NOTE | 2016-07-06 17:56 | Anesthesia Consultation ---
Anesthesia Consult and Med Hx Date of service: 07/07/16 - Airway Anesthetic Teeth Evaluation: Edentulous ROM Head & Neck: Adequate Mental/Hyoid Distance: Adequate Mallampati Class: Class II Intubation Access Assessment: Probably Good - Pre-Operative Health Status ASA Pre-Surgery Classification: ASA4 Proposed Anesthetic Plan: General - Pre-Anesthesia Comment Pre-Anesthesia Comments: Patient is S/P multiple LLE vascular procedures. Her course was complicated by cardiopulmonary arrest, intubation and acute renal injury due to ATN. This was followed by return to OR due to RLE arterial occlusion requiring thromboendarterectomy with patch. Patient was extubated and has stable respiratory function. She is awake and alert and is not on any drips. - Pulmonary Hx Smoking: Yes Hx Asthma: No COPD: No Hx Pneumonia: No Hx Sleep Apnea: No - Cardiovascular System Hx Hypertension: Yes (2008, high cholesterol) Hx Peripheral Vascular Disease: Yes (with intermittent claudication, ischemic pain) - Central Nervous System CVA: Yes (5yrs ago) Hx Psychiatric Problems: No - Endocrine Hx End Stage Renal Disease: No - Hematic Hx Anemia: Yes (hgb 9.8) - Other Systems Hx Cancer: No - Additional Comments Anesthesia Medical History Comments: S/p cardia arrest 1 week ago. patient continues to have lower ext thrombosis after previous surgery. To OR now for open endarterectomy and possible fasciotomy.
[2016-07-06 18:07] LABS: Bilirubin,Urine NEG (Negative); Blood,Urine LG (Negative); Ketones,Urine NEG (Negative); Leukocyte Esterase,Urine LG (Negative); Nitrite,Urine NEG (Negative); Urobilinogen,Urine < 2.0 mg/dL (<2.0)
[2016-07-06 18:18] LABS: RBC,Urine > 182.0 /HPF (0.0-6.0)
[2016-07-06] MEDS: D5W/0.45% NACL/KCL 20 MEQ 1,000 ML IV SCH (23:55)
[2016-07-07] MEDS: MORPHINE IV PRN ×2 (04:34→10:58)
[2016-07-07 05:12] LABS: Basophils % (Auto) 0.7 % (0.0-1.8); Eosinophils % (Auto) 0.8 % (0.0-4.3); Hematocrit 31.6 % (30.3-42.9); Hemoglobin 10.4 gm/dl (10.1-14.3); Mean Corpuscular HGB Conc 33 % (30-34); Mean Corpuscular Hemoglobin 29 pg (28-32); Mean Corpuscular Volume 89 fl (79-97); Platelet Count 318 K/mm3 (140-440); Red Blood Count 3.55 M/mm3 (3.65-5.03); White Blood Count 15.5 K/mm3 (4.5-11.0)
[2016-07-07 05:37] LABS: Anion Gap 16 mmol/L; BUN/Creatinine Ratio 12.22; Blood Urea Nitrogen 11 mg/dL (7-17); Carbon Dioxide 22 mmol/L (22-30); Chloride 103.1 mmol/L (98-107); Glucose 104 mg/dL (65-100); Potassium 3.4 mmol/L (3.6-5.0); Sodium 138 mmol/L (137-145)
[2016-07-07] MEDS ORDERED: SUBLIMAZE ONE (07:30)
[2016-07-07] MEDS ORDERED: DIPRIVAN 10 MG/ML IV ONE (07:30)
[2016-07-07] MEDS ORDERED: KCL 10MEQ/100ML 100 ML IV SCH (08:00)
[2016-07-07] MEDS ORDERED: VERSED ONE (08:00)
[2016-07-07] MEDS ORDERED: ANCEF ONE (08:23)
[2016-07-07] MEDS ORDERED: NEO SYNEPHRINE/NS Syringe(OR USE) IV ONE (08:23)
--- NOTE | 2016-07-07 08:31 | XRay Report ---
AP CHEST :07/07/16 CLINICAL: Follow up respiratory failure. COMPARISON:07/06/16 FINDINGS: Persistent opacification of the left lower lobe with silhouetting of the left hemidiaphragm and left heart border with opacification of the left costophrenic angle the left upper lobe is clear in the right lung is clear. Borderline cardiomegaly. Normal pulmonary vessels. IMPRESSION: No change. Left lower lobe airspace disease and/or pleural effusion with atelectasis.
[2016-07-07 08:36] LABS: Alanine Aminotransferase 31 units/L (7-56); Albumin 1.4 g/dL (3.9-5); Albumin/Globulin Ratio 0.3 %; Alkaline Phosphatase 164 units/L (35-129); Anion Gap 13 mmol/L; BUN/Creatinine Ratio 12.22; Bilirubin,Total 0.9 mg/dL (0.1-1.2); Blood Urea Nitrogen 11 mg/dL (7-17); Calcium 7.9 mg/dL (8.4-10.2); Carbon Dioxide 25 mmol/L (22-30); Chloride 104.8 mmol/L (98-107); Glucose 111 mg/dL (65-100); Potassium 3.6 mmol/L (3.6-5.0); Sodium 139 mmol/L (137-145); Total Protein 6.2 g/dL (6.3-8.2)
--- NOTE | 2016-07-07 08:46 | Progress Note ---
Assessment and Plan Current antibiotics: None Previous antibiotics: Zosyn 2.25 g IV q8h 06/21-06/24 Cefazolin perioperatively ASSESSMENT: Cande Ge is a 55-year-old female with severe peripheral vascular disease, type 2 DM with peripheral neuropathy and hypertension who was admitted to [facility] as an outpatient with left lower extremity pain at rest for her cutaneous intervention which was unsuccessful and subsequently underwent left femoral endarterectomy and left iliac stenting and left femoral-popliteal bypass on 06/16 , urgent thrombectomies on 06/20 and right femoral endarterectomy with patch angioplasty on 07/03. She also had 2 cardiac arrests on 06/20 requiring resuscitation and intubation. She developed evidence of a retroperitoneal hematoma and ureteral obstruction and underwent bilateral ureteral stenting on 06/27. She has had a low-grade fever and leukocytosis. 07/07/16: Debridement of the left groin wound. Removal of an infected Dacron patch from the SFA. 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 Creation of the sartorius muscle flap over common femoral artery bovine pericardial patch. Problem list: 1. Leukocytosis -Likely reactive -Patient has multiple reasons for leukocytosis including retroperitoneal hematoma , GI bleeding and multiple surgeries 2. Low-grade fever -Same discussion as above 3. Severe peripheral vascular disease -Unsuccessful attempt at percutaneous left lower extremity revascularization 06/13 -Left femoral endarterectomy, left iliac stenting and left femoral-popliteal bypass on 06/16 -Left lower extremity thrombectomies on 06/20 -Right femoral endarterectomy with patch angioplasty on 07/03 4. Retroperitoneal hematoma -As seen on CT scan 06/27 5. Bilateral hydroureteronephrosis -Status post bilateral ureteral stenting 06/27 6. Status post cardiopulmonary arrests X 2 -06/20 -Mechanical ventilatory support until 07/05 7. left groin infection associated, in view of operative findings of necrotic tissue, would restart antibiotics and await culture results. 9. type 2 DM PLAN: 1. restart zosyn 3.375 gm iv Q8H 2. follow up culture results Subjective Date of service: 07/07/16 Principal diagnosis: Acute Hypoxemic Respiratory Failure; s/p cardiopulmonary arrest Interval history: Patient seen after surgery, she is requesting to go home Objective - Constitutional Vitals: Selected Entries 07/06/16 07/07/16 07/07/16 20:15 06:00 06:30 Temperature 100.8 F H 99 F Pulse Rate 101 H Respiratory 19 Rate O2 Sat by Pulse 97 Oximetry Blood Pressure 152/73 Blood Pressure 99 Mean 07/07/16 08:00 Temperature 99.2 F Pulse Rate Respiratory Rate O2 Sat by Pulse Oximetry Blood Pressure Blood Pressure Mean General appearance: Present: no acute distress, well-nourished - EENT Eyes: PERRL, no scleral icterus, no conjunctival injection ENT: hearing intact - Neck Neck: supple, normal ROM - Respiratory Respiratory effort: normal - Breasts Breasts: deferred - Cardiovascular Rhythm: regular Heart Sounds: Present: S1 & S2 Extremities: abnormal Extremity abnormal: edema, other (bilateral groing wound dressings in place) - Gastrointestinal General gastrointestinal: Present: soft, non-tender, normal bowel sounds - Labs CBC & Chem 7: 07/07/16 13:57 07/07/16 08:06 Labs: Microbiology 07/03/16 18:55 Tracheal Aspirate Sputum Culture - Final 06/21/16 21:00 Urine,Catheterized - Indwelling Catheter Urine Culture - Final NO GROWTH AFTER 48 HOURS 06/20/16 22:30 Stool Stool Culture - Final 06/20/16 22:30 Stool Stool Occult Blood ([facility]) - Final 07/06/16 13:46 Peripheral/Venous Blood Culture - Preliminary Culture in Progress 07/06/16 13:20 Peripheral/Venous Blood Culture - Preliminary Culture in Progress Laboratory Tests 07/06/16 07/07/16 07/07/16 04:40 04:53 08:06 WBC 17.7 H 15.5 H Plt Count 318 Creatinine 0.9 AST 53 H ALT 31 Alkaline Phosphatase 164 H
[2016-07-07] MEDS ORDERED: DECADRON ONE (08:52)
[2016-07-07] MEDS ORDERED: DILAUDID ONE (09:28)
[2016-07-07] MEDS ORDERED: BREVIBLOC IV ONE (09:38)
[2016-07-07] MEDS ORDERED: HEPARIN 10,000 UNITS/10 ML ONE (10:17)
[2016-07-07] MEDS ORDERED: XYLOCAINE MPF 2% ONE (10:18)
[2016-07-07] MEDS ORDERED: ZOFRAN ONE (10:18)
--- NOTE | 2016-07-07 10:19 | Progress Note ---
Assessment and Plan (5) Left Groin Wound Current Visit: Yes Status: Acute - anti-infectives per ID recs - follow wound tissue cultures - thankfully no S&S of overwhelming sepsis - will follow clinically - Patient Problems (1) Peripheral vascular disease of extremity Current Visit: Yes Status: Acute Plan to address problem: - s/p operative re-intervention - will defer to vascular surgery team (2) Acute respiratory failure Current Visit: Yes Status: Acute Plan to address problem: - resolved - prn oxygen - prn bronchodilators (3) Anemia Current Visit: Yes Status: Acute Plan to address problem: - Hb level holding - will repeat in am re: EBL during surgery - follow clinically (4) Altered mental status Current Visit: Yes Status: Acute Plan to address problem: - resolved Subjective Date of service: 07/07/16 Principal diagnosis: Acute Hypoxemic Respiratory Failure; s/p cardiopulmonary arrest Interval history: Seen and examined at bedside; 24 hour events reviewed; nursing and respiratory care staff consulted; no adverse overnight events reported to me; to OR today for left groin wound debridement including thrombosed graft section; denies acute chest pains or increased SOB; No n/V/F/C Objective Vital Signs - 12hr 07/06/16 07/07/16 07/07/16 23:01 00:01 01:01 Temperature Pulse Rate 112 H 110 H 110 H Respiratory 12 15 17 Rate Blood Pressure 135/69 135/69 135/69 O2 Sat by Pulse 98 98 98 Oximetry 07/07/16 07/07/16 07/07/16 01:03 02:01 02:38 Temperature Pulse Rate 102 H 97 H 100 H Respiratory 18 15 20 Rate Blood Pressure 135/69 135/69 135/69 O2 Sat by Pulse 99 99 100 Oximetry 07/07/16 07/07/16 07/07/16 03:01 04:07 05:01 Temperature Pulse Rate 100 H 108 H 100 H Respiratory 21 13 21 Rate Blood Pressure 135/69 135/69 127/78 O2 Sat by Pulse 99 86 99 Oximetry 07/07/16 07/07/16 07/07/16 05:07 06:00 06:13 Temperature Pulse Rate 101 H 101 H 103 H Respiratory 21 19 19 Rate Blood Pressure 127/78 152/73 152/73 O2 Sat by Pulse 99 97 100 Oximetry 07/07/16 07/07/16 07/07/16 06:30 07:00 08:00 Temperature 99 F 99.2 F Pulse Rate 107 H 103 H Respiratory 16 16 Rate Blood Pressure 142/62 130/79 O2 Sat by Pulse 100 100 Oximetry Constitutional: no acute distress, alert, other (Resting on mechanical ventilation.) Eyes: non-icteric ENT: oropharynx moist Neck: supple, no lymphadenopathy Effort: normal Ascultation: Bilateral: clear, diminished breath sounds Cardiovascular: regular rate and rhythm Gastrointestinal: normoactive bowel sounds, soft, non-tender, non-distended Integumentary: other (weak LLExt) Extremities: no cyanosis, edema, other (LLext cool) Neurologic: normal mental status, non-focal exam, pupils equal and round, other (foot drop) Psychiatric: mood appropriate, affect normal CBC and BMP: 07/07/16 13:57 07/07/16 08:06 ABG, PT/INR, D-dimer: ABG POC ABG pH 7.436 (7.35-7.45) 07/04/16 16:49 POC ABG pCO2 31.1 (35-45) L 07/04/16 16:49 POC ABG pO2 110 (80-105) H 07/04/16 16:49 POC ABG HCO3 20.9 07/04/16 16:49 POC ABG Total CO2 22 07/04/16 16:49 POC ABG O2 Sat 99 07/04/16 16:49 PT/INR, D-dimer PT 19.9 Sec. (12.2-14.9) H 06/26/16 22:57 INR 1.69 (0.87-1.13) H 06/26/16 22:57 Abnormal lab findings: Abnormal Labs 06/13/16 06/13/16 06/13/16 09:45 09:45 09:45 WBC RBC Hgb POC Hgb Hct POC Hct MCH 25 L MCHC RDW 15.8 H Plt Count Lymph % (Auto) [place] % (Auto) 8.1 H Lymph # [place] # Baso # Seg Neutrophils % Seg Neuts % (Manual) Lymphocytes % (Manual) Monocytes % (Manual) Nucleated RBC % Seg Neutrophils # Seg Neutrophils # Man Lymphocytes # (Manual) Monocytes # (Manual) PT INR APTT Fibrinogen 522 H Heparin Anti-Xa Level POC ABG pH POC ABG pCO2 POC ABG pO2 POC Potassium POC Chloride Sodium Potassium Chloride Carbon Dioxide POC BUN BUN Creatinine Glucose POC Glucose Calcium 10.3 H Magnesium AST Alkaline Phosphatase Total Protein Albumin Urine WBC (Auto) Crossmatch 06/13/16 06/13/16 06/13/16 09:45 20:14 20:15 WBC RBC Hgb POC Hgb Hct POC Hct MCH MCHC RDW Plt Count Lymph % (Auto) [place] % (Auto) Lymph # [place] # Baso # Seg Neutrophils % Seg Neuts % (Manual) Lymphocytes % (Manual) Monocytes % (Manual) Nucleated RBC % Seg Neutrophils # Seg Neutrophils # Man Lymphocytes # (Manual) Monocytes # (Manual) PT INR APTT 103.8 H* Fibrinogen Heparin Anti-Xa Level 0.72 H POC ABG pH POC ABG pCO2 POC ABG pO2 POC Potassium POC Chloride Sodium Potassium Chloride Carbon Dioxide POC BUN BUN Creatinine Glucose POC Glucose Calcium Magnesium AST Alkaline Phosphatase Total Protein Albumin Urine WBC (Auto) Crossmatch See Detail 06/14/16 06/14/16 06/14/16 07:44 10:18 19:09 WBC RBC Hgb POC Hgb Hct POC Hct MCH 26 L MCHC RDW 15.8 H Plt Count Lymph % (Auto) [place] % (Auto) 9.1 H Lymph # [place] # Baso # Seg Neutrophils % Seg Neuts % (Manual) Lymphocytes % (Manual) Monocytes % (Manual) Nucleated RBC % Seg Neutrophils # Seg Neutrophils # Man Lymphocytes # (Manual) Monocytes # (Manual) PT INR APTT Fibrinogen Heparin Anti-Xa Level 0.76 H POC ABG pH POC ABG pCO2 POC ABG pO2 POC Potassium POC Chloride Sodium Potassium Chloride Carbon Dioxide POC BUN BUN Creatinine Glucose POC Glucose 106 H Calcium Magnesium AST Alkaline Phosphatase Total Protein Albumin Urine WBC (Auto) Crossmatch 06/15/16 06/15/16 06/15/16 04:43 04:43 22:49 WBC RBC Hgb 9.2 L POC Hgb Hct 28.4 L POC Hct MCH MCHC RDW Plt Count Lymph % (Auto) [place] % (Auto) Lymph # [place] # Baso # Seg Neutrophils % Seg Neuts % (Manual) Lymphocytes % (Manual) Monocytes % (Manual) Nucleated RBC % Seg Neutrophils # Seg Neutrophils # Man Lymphocytes # (Manual) Monocytes # (Manual) PT INR APTT Fibrinogen Heparin Anti-Xa Level 0.85 H POC ABG pH POC ABG pCO2 POC ABG pO2 POC Potassium POC Chloride Sodium Potassium Chloride Carbon Dioxide POC BUN BUN Creatinine Glucose POC Glucose 134 H Calcium Magnesium AST Alkaline Phosphatase Total Protein Albumin Urine WBC (Auto) Crossmatch 06/16/16 06/16/16 06/16/16 08:55 08:55 14:21 WBC RBC Hgb POC Hgb 5.8 L Hct POC Hct 17 L MCH MCHC RDW Plt Count Lymph % (Auto) [place] % (Auto) Lymph # [place] # Baso # Seg Neutrophils % Seg Neuts % (Manual) Lymphocytes % (Manual) Monocytes % (Manual) Nucleated RBC % Seg Neutrophils # Seg Neutrophils # Man Lymphocytes # (Manual) Monocytes # (Manual) PT INR APTT 20.0 L Fibrinogen Heparin Anti-Xa Level POC ABG pH POC ABG pCO2 POC ABG pO2 POC Potassium 2.9 L POC Chloride Sodium Potassium Chloride Carbon Dioxide POC BUN 7 L BUN Creatinine Glucose POC Glucose 249 H Calcium Magnesium AST Alkaline Phosphatase Total Protein Albumin Urine WBC (Auto) Crossmatch See Detail 06/16/16 06/16/16 06/16/16 16:55 17:41 17:48 WBC RBC Hgb POC Hgb 8.8 L Hct POC Hct 26 L < 15 L MCH MCHC RDW Plt Count Lymph % (Auto) [place] % (Auto) Lymph # [place] # Baso # Seg Neutrophils % Seg Neuts % (Manual) Lymphocytes % (Manual) Monocytes % (Manual) Nucleated RBC % Seg Neutrophils # Seg Neutrophils # Man Lymphocytes # (Manual) Monocytes # (Manual) PT INR APTT Fibrinogen Heparin Anti-Xa Level POC ABG pH 7.031 L POC ABG pCO2 POC ABG pO2 475 H POC Potassium 3.2 L POC Chloride 112 H 114 H Sodium Potassium Chloride Carbon Dioxide POC BUN 7 L 7 L BUN Creatinine Glucose POC Glucose 203 H 291 H Calcium Magnesium AST Alkaline Phosphatase Total Protein Albumin Urine WBC (Auto) Crossmatch 06/16/16 06/16/16 06/16/16 18:07 19:09 20:10 WBC 15.8 H RBC Hgb POC Hgb 6.5 L Hct POC Hct 19 L MCH MCHC RDW Plt Count 38 L Lymph % (Auto) 5.9 L [place] % (Auto) 9.3 H Lymph # 0.9 L [place] # 1.5 H Baso # Seg Neutrophils % 84.6 H Seg Neuts % (Manual) Lymphocytes % (Manual) Monocytes % (Manual) Nucleated RBC % Seg Neutrophils # 13.3 H Seg Neutrophils # Man Lymphocytes # (Manual) Monocytes # (Manual) PT INR APTT Fibrinogen Heparin Anti-Xa Level POC ABG pH POC ABG pCO2 POC ABG pO2 POC Potassium POC Chloride 113 H Sodium Potassium Chloride Carbon Dioxide POC BUN 7 L BUN Creatinine Glucose POC Glucose 263 H 231 H Calcium Magnesium AST Alkaline Phosphatase Total Protein Albumin Urine WBC (Auto) Crossmatch 06/16/16 06/16/16 06/16/16 20:10 20:18 21:10 WBC RBC Hgb POC Hgb Hct POC Hct MCH MCHC RDW Plt Count Lymph % (Auto) [place] % (Auto) Lymph # [place] # Baso # Seg Neutrophils % Seg Neuts % (Manual) Lymphocytes % (Manual) Monocytes % (Manual) Nucleated RBC % Seg Neutrophils # Seg Neutrophils # Man Lymphocytes # (Manual) Monocytes # (Manual) PT INR APTT Fibrinogen Heparin Anti-Xa Level POC ABG pH 7.236 L 7.280 L POC ABG pCO2 POC ABG pO2 139 H 145 H POC Potassium POC Chloride Sodium Potassium 3.4 L Chloride 114.5 H Carbon Dioxide 17 L D POC BUN BUN Creatinine Glucose 188 H POC Glucose Calcium 6.1 L D Magnesium AST Alkaline Phosphatase Total Protein Albumin Urine WBC (Auto) Crossmatch 06/16/16 06/17/16 06/17/16 22:53 04:48 05:35 WBC RBC Hgb POC Hgb Hct POC Hct MCH MCHC RDW Plt Count Lymph % (Auto) [place] % (Auto) Lymph # [place] # Baso # Seg Neutrophils % Seg Neuts % (Manual) Lymphocytes % (Manual) Monocytes % (Manual) Nucleated RBC % Seg Neutrophils # Seg Neutrophils # Man Lymphocytes # (Manual) Monocytes # (Manual) PT INR APTT Fibrinogen Heparin Anti-Xa Level POC ABG pH POC ABG pCO2 33.9 L 22.2 L POC ABG pO2 152 H 154 H POC Potassium POC Chloride Sodium 150 H Potassium 3.4 L Chloride 114.2 H Carbon Dioxide 16 L POC BUN BUN Creatinine Glucose 221 H POC Glucose Calcium 7.6 L D Magnesium AST Alkaline Phosphatase Total Protein Albumin Urine WBC (Auto) Crossmatch 06/17/16 06/18/16 06/18/16 09:22 07:26 08:25 WBC 20.3 H RBC 3.41 L Hgb 9.9 L POC Hgb Hct 29.7 L POC Hct MCH MCHC RDW Plt Count Lymph % (Auto) [place] % (Auto) Lymph # [place] # Baso # Seg Neutrophils % Seg Neuts % (Manual) 81.0 H Lymphocytes % (Manual) 6.0 L Monocytes % (Manual) 12.0 H Nucleated RBC % Seg Neutrophils # Seg Neutrophils # Man 16.4 H Lymphocytes # (Manual) Monocytes # (Manual) 2.4 H PT INR APTT Fibrinogen Heparin Anti-Xa Level POC ABG pH POC ABG pCO2 POC ABG pO2 POC Potassium POC Chloride Sodium Potassium 3.1 L Chloride Carbon Dioxide POC BUN BUN Creatinine Glucose 136 H POC Glucose 141 H Calcium 7.5 L Magnesium AST Alkaline Phosphatase Total Protein Albumin Urine WBC (Auto) Crossmatch 06/18/16 06/18/16 06/18/16 08:25 11:09 19:40 WBC RBC Hgb 6.5 L D POC Hgb Hct 19.3 L* D POC Hct MCH MCHC RDW Plt Count 131 L Lymph % (Auto) [place] % (Auto) Lymph # [place] # Baso # Seg Neutrophils % Seg Neuts % (Manual) Lymphocytes % (Manual) Monocytes % (Manual) Nucleated RBC % Seg Neutrophils # Seg Neutrophils # Man Lymphocytes # (Manual) Monocytes # (Manual) PT INR APTT Fibrinogen Heparin Anti-Xa Level POC ABG pH 7.490 H POC ABG pCO2 POC ABG pO2 131 H POC Potassium POC Chloride Sodium Potassium Chloride Carbon Dioxide POC BUN BUN Creatinine Glucose POC Glucose 125 H Calcium Magnesium AST Alkaline Phosphatase Total Protein Albumin Urine WBC (Auto) Crossmatch 06/18/16 06/19/16 06/19/16 21:10 07:07 07:28 WBC 13.6 H RBC 2.17 L Hgb 6.5 L POC Hgb Hct 18.8 L* POC Hct MCH MCHC 35 H RDW Plt Count 131 L Lymph % (Auto) 10.1 L [place] % (Auto) 9.3 H Lymph # [place] # 1.3 H Baso # Seg Neutrophils % 79.7 H Seg Neuts % (Manual) Lymphocytes % (Manual) Monocytes % (Manual) Nucleated RBC % Seg Neutrophils # 10.8 H Seg Neutrophils # Man Lymphocytes # (Manual) Monocytes # (Manual) PT INR APTT Fibrinogen Heparin Anti-Xa Level 0.75 H POC ABG pH POC ABG pCO2 POC ABG pO2 POC Potassium POC Chloride Sodium Potassium 3.5 L Chloride Carbon Dioxide POC BUN BUN Creatinine Glucose 104 H POC Glucose Calcium 7.6 L Magnesium 1.4 L AST Alkaline Phosphatase Total Protein Albumin Urine WBC (Auto) Crossmatch 06/20/16 06/20/16 06/20/16 04:15 18:15 18:15 WBC 16.6 H RBC 1.19 L Hgb 9.2 L 3.5 L* D POC Hgb Hct 27.5 L D 11.0 L* D POC Hct MCH MCHC RDW Plt Count 138 L Lymph % (Auto) [place] % (Auto) Lymph # [place] # Baso # Seg Neutrophils % Seg Neuts % (Manual) Lymphocytes % (Manual) Monocytes % (Manual) Nucleated RBC % Seg Neutrophils # Seg Neutrophils # Man Lymphocytes # (Manual) Monocytes # (Manual) PT INR APTT Fibrinogen Heparin Anti-Xa Level POC ABG pH POC ABG pCO2 POC ABG pO2 POC Potassium POC Chloride Sodium 146 H Potassium Chloride Carbon Dioxide 14 L D POC BUN BUN Creatinine Glucose 31 L* POC Glucose Calcium 6.7 L Magnesium AST Alkaline Phosphatase Total Protein Albumin Urine WBC (Auto) Crossmatch 06/20/16 06/20/16 06/20/16 18:15 19:33 19:36 WBC RBC Hgb POC Hgb Hct POC Hct MCH MCHC RDW Plt Count Lymph % (Auto) [place] % (Auto) Lymph # [place] # Baso # Seg Neutrophils % Seg Neuts % (Manual) Lymphocytes % (Manual) Monocytes % (Manual) Nucleated RBC % Seg Neutrophils # Seg Neutrophils # Man Lymphocytes # (Manual) Monocytes # (Manual) PT INR APTT Fibrinogen Heparin Anti-Xa Level POC ABG pH POC ABG pCO2 26.3 L POC ABG pO2 394 H POC Potassium POC Chloride Sodium Potassium Chloride Carbon Dioxide POC BUN BUN Creatinine Glucose POC Glucose 212 H Calcium Magnesium AST Alkaline Phosphatase Total Protein Albumin Urine WBC (Auto) Crossmatch See Detail 06/20/16 06/20/16 06/21/16 22:01 23:00 00:35 WBC RBC Hgb POC Hgb Hct POC Hct MCH MCHC RDW Plt Count Lymph % (Auto) [place] % (Auto) Lymph # [place] # Baso # Seg Neutrophils % Seg Neuts % (Manual) Lymphocytes % (Manual) Monocytes % (Manual) Nucleated RBC % Seg Neutrophils # Seg Neutrophils # Man Lymphocytes # (Manual) Monocytes # (Manual) PT 21.3 H INR 1.85 H APTT 48.4 H Fibrinogen Heparin Anti-Xa Level POC ABG pH POC ABG pCO2 POC ABG pO2 POC Potassium POC Chloride Sodium Potassium Chloride Carbon Dioxide POC BUN BUN Creatinine Glucose POC Glucose 149 H 147 H Calcium Magnesium AST Alkaline Phosphatase Total Protein Albumin Urine WBC (Auto) Crossmatch 06/21/16 06/21/16 06/21/16 04:30 04:30 06:01 WBC 21.7 H RBC 3.58 L Hgb POC Hgb Hct POC Hct MCH MCHC 35 H RDW Plt Count 116 L Lymph % (Auto) [place] % (Auto) Lymph # [place] # Baso # Seg Neutrophils % Seg Neuts % (Manual) Lymphocytes % (Manual) 8.0 L Monocytes % (Manual) Nucleated RBC % 3.0 H Seg Neutrophils # Seg Neutrophils # Man 13.7 H Lymphocytes # (Manual) Monocytes # (Manual) 1.5 H PT INR APTT Fibrinogen Heparin Anti-Xa Level POC ABG pH 7.541 H POC ABG pCO2 21.1 L POC ABG pO2 108 H POC Potassium POC Chloride Sodium Potassium 3.0 L Chloride 110.3 H Carbon Dioxide 18 L POC BUN BUN 18 H Creatinine Glucose 141 H POC Glucose Calcium 6.4 L Magnesium AST Alkaline Phosphatase Total Protein Albumin Urine WBC (Auto) Crossmatch 06/21/16 06/21/16 06/21/16 07:00 10:02 17:51 WBC RBC Hgb 8.3 L POC Hgb Hct 24.7 L D POC Hct MCH MCHC RDW Plt Count Lymph % (Auto) [place] % (Auto) Lymph # [place] # Baso # Seg Neutrophils % Seg Neuts % (Manual) Lymphocytes % (Manual) Monocytes % (Manual) Nucleated RBC % Seg Neutrophils # Seg Neutrophils # Man Lymphocytes # (Manual) Monocytes # (Manual) PT INR APTT Fibrinogen Heparin Anti-Xa Level POC ABG pH POC ABG pCO2 POC ABG pO2 POC Potassium POC Chloride Sodium Potassium Chloride Carbon Dioxide POC BUN BUN Creatinine Glucose POC Glucose 132 H 106 H Calcium Magnesium AST Alkaline Phosphatase Total Protein Albumin Urine WBC (Auto) Crossmatch 06/22/16 06/22/16 06/22/16 05:00 05:00 06:40 WBC 20.6 H RBC 3.54 L Hgb POC Hgb Hct POC Hct MCH MCHC RDW Plt Count 129 L Lymph % (Auto) [place] % (Auto) Lymph # [place] # Baso # Seg Neutrophils % Seg Neuts % (Manual) 87.0 H Lymphocytes % (Manual) 4.0 L Monocytes % (Manual) Nucleated RBC % 4.0 H Seg Neutrophils # Seg Neutrophils # Man 17.9 H Lymphocytes # (Manual) 0.8 L Monocytes # (Manual) 1.2 H PT INR APTT Fibrinogen Heparin Anti-Xa Level POC ABG pH POC ABG pCO2 21.9 L POC ABG pO2 118 H POC Potassium POC Chloride Sodium Potassium Chloride 109.9 H Carbon Dioxide 15 L POC BUN BUN 26 H Creatinine 2.2 H D Glucose POC Glucose Calcium 6.3 L Magnesium AST Alkaline Phosphatase Total Protein Albumin Urine WBC (Auto) Crossmatch 06/22/16 06/22/16 06/22/16 09:15 09:15 23:17 WBC RBC Hgb 9.1 L POC Hgb Hct 26.9 L POC Hct MCH MCHC RDW Plt Count 116 L Lymph % (Auto) [place] % (Auto) Lymph # [place] # Baso # Seg Neutrophils % Seg Neuts % (Manual) Lymphocytes % (Manual) Monocytes % (Manual) Nucleated RBC % Seg Neutrophils # Seg Neutrophils # Man Lymphocytes # (Manual) Monocytes # (Manual) PT 15.8 H INR 1.27 H APTT Fibrinogen Heparin Anti-Xa Level POC ABG pH POC ABG pCO2 POC ABG pO2 POC Potassium POC Chloride Sodium Potassium Chloride Carbon Dioxide POC BUN BUN Creatinine Glucose POC Glucose 134 H Calcium Magnesium AST Alkaline Phosphatase Total Protein Albumin Urine WBC (Auto) Crossmatch 06/23/16 06/23/16 06/23/16 05:43 05:43 09:44 WBC 13.8 H RBC 2.70 L Hgb 8.1 L POC Hgb Hct 24.2 L POC Hct MCH MCHC RDW Plt Count 93 L Lymph % (Auto) 6.2 L [place] % (Auto) Lymph # 0.9 L [place] # Baso # Seg Neutrophils % 89.2 H Seg Neuts % (Manual) Lymphocytes % (Manual) Monocytes % (Manual) Nucleated RBC % Seg Neutrophils # 12.3 H Seg Neutrophils # Man Lymphocytes # (Manual) Monocytes # (Manual) PT INR APTT Fibrinogen Heparin Anti-Xa Level POC ABG pH 7.593 H POC ABG pCO2 26.8 L POC ABG pO2 141 H POC Potassium POC Chloride Sodium 146 H Potassium Chloride Carbon Dioxide POC BUN BUN 32 H Creatinine 2.6 H Glucose 142 H POC Glucose Calcium 7.0 L Magnesium AST Alkaline Phosphatase Total Protein Albumin Urine WBC (Auto) Crossmatch 06/23/16 06/23/16 06/23/16 11:23 17:42 23:32 WBC RBC Hgb POC Hgb Hct POC Hct MCH MCHC RDW Plt Count Lymph % (Auto) [place] % (Auto) Lymph # [place] # Baso # Seg Neutrophils % Seg Neuts % (Manual) Lymphocytes % (Manual) Monocytes % (Manual) Nucleated RBC % Seg Neutrophils # Seg Neutrophils # Man Lymphocytes # (Manual) Monocytes # (Manual) PT INR APTT Fibrinogen Heparin Anti-Xa Level POC ABG pH POC ABG pCO2 POC ABG pO2 POC Potassium POC Chloride Sodium Potassium Chloride Carbon Dioxide POC BUN BUN Creatinine Glucose POC Glucose 138 H 133 H 111 H Calcium Magnesium AST Alkaline Phosphatase Total Protein Albumin Urine WBC (Auto) Crossmatch 06/24/16 06/24/16 06/24/16 06:27 08:10 08:10 WBC 16.6 H RBC 2.91 L Hgb 8.9 L POC Hgb Hct 26.4 L POC Hct MCH MCHC RDW 15.6 H Plt Count 115 L Lymph % (Auto) 4.6 L [place] % (Auto) Lymph # 0.8 L [place] # 1.0 H Baso # Seg Neutrophils % 89.2 H Seg Neuts % (Manual) Lymphocytes % (Manual) Monocytes % (Manual) Nucleated RBC % Seg Neutrophils # 14.9 H Seg Neutrophils # Man Lymphocytes # (Manual) Monocytes # (Manual) PT INR APTT Fibrinogen Heparin Anti-Xa Level POC ABG pH POC ABG pCO2 POC ABG pO2 POC Potassium POC Chloride Sodium 146 H Potassium Chloride Carbon Dioxide POC BUN BUN 37 H Creatinine 2.9 H Glucose POC Glucose 109 H Calcium 7.5 L Magnesium AST Alkaline Phosphatase Total Protein Albumin Urine WBC (Auto) Crossmatch 06/24/16 06/24/16 06/24/16 12:05 17:57 22:13 WBC RBC Hgb POC Hgb Hct POC Hct MCH MCHC RDW Plt Count Lymph % (Auto) [place] % (Auto) Lymph # [place] # Baso # Seg Neutrophils % Seg Neuts % (Manual) Lymphocytes % (Manual) Monocytes % (Manual) Nucleated RBC % Seg Neutrophils # Seg Neutrophils # Man Lymphocytes # (Manual) Monocytes # (Manual) PT INR APTT Fibrinogen Heparin Anti-Xa Level POC ABG pH POC ABG pCO2 POC ABG pO2 POC Potassium POC Chloride Sodium Potassium Chloride Carbon Dioxide POC BUN BUN Creatinine Glucose POC Glucose 117 H 124 H 116 H Calcium Magnesium AST Alkaline Phosphatase Total Protein Albumin Urine WBC (Auto) Crossmatch 06/25/16 06/25/16 06/25/16 06:42 06:49 12:14 WBC RBC Hgb POC Hgb Hct POC Hct MCH MCHC RDW Plt Count Lymph % (Auto) [place] % (Auto) Lymph # [place] # Baso # Seg Neutrophils % Seg Neuts % (Manual) Lymphocytes % (Manual) Monocytes % (Manual) Nucleated RBC % Seg Neutrophils # Seg Neutrophils # Man Lymphocytes # (Manual) Monocytes # (Manual) PT INR APTT Fibrinogen Heparin Anti-Xa Level POC ABG pH POC ABG pCO2 POC ABG pO2 POC Potassium POC Chloride Sodium Potassium Chloride Carbon Dioxide POC BUN BUN 46 H Creatinine 3.6 H Glucose 133 H POC Glucose 137 H 136 H Calcium 7.4 L Magnesium AST Alkaline Phosphatase Total Protein Albumin Urine WBC (Auto) Crossmatch 06/25/16 06/25/16 06/26/16 16:07 21:32 05:55 WBC RBC Hgb POC Hgb Hct POC Hct MCH MCHC RDW Plt Count Lymph % (Auto) [place] % (Auto) Lymph # [place] # Baso # Seg Neutrophils % Seg Neuts % (Manual) Lymphocytes % (Manual) Monocytes % (Manual) Nucleated RBC % Seg Neutrophils # Seg Neutrophils # Man Lymphocytes # (Manual) Monocytes # (Manual) PT INR APTT Fibrinogen Heparin Anti-Xa Level POC ABG pH POC ABG pCO2 POC ABG pO2 POC Potassium POC Chloride Sodium Potassium Chloride Carbon Dioxide 20 L POC BUN BUN 55 H Creatinine 4.2 H Glucose 120 H POC Glucose 146 H 146 H Calcium 7.5 L Magnesium AST Alkaline Phosphatase Total Protein Albumin Urine WBC (Auto) Crossmatch 06/26/16 06/26/16 06/26/16 06:30 11:38 16:45 WBC RBC Hgb POC Hgb Hct POC Hct MCH MCHC RDW Plt Count Lymph % (Auto) [place] % (Auto) Lymph # [place] # Baso # Seg Neutrophils % Seg Neuts % (Manual) Lymphocytes % (Manual) Monocytes % (Manual) Nucleated RBC % Seg Neutrophils # Seg Neutrophils # Man Lymphocytes # (Manual) Monocytes # (Manual) PT INR APTT Fibrinogen Heparin Anti-Xa Level POC ABG pH POC ABG pCO2 POC ABG pO2 POC Potassium POC Chloride Sodium Potassium Chloride Carbon Dioxide POC BUN BUN Creatinine Glucose POC Glucose 128 H 143 H 121 H Calcium Magnesium AST Alkaline Phosphatase Total Protein Albumin Urine WBC (Auto) Crossmatch 06/26/16 06/26/16 06/27/16 22:57 22:57 00:47 WBC RBC Hgb 8.4 L POC Hgb Hct 25.1 L POC Hct MCH MCHC RDW Plt Count Lymph % (Auto) [place] % (Auto) Lymph # [place] # Baso # Seg Neutrophils % Seg Neuts % (Manual) Lymphocytes % (Manual) Monocytes % (Manual) Nucleated RBC % Seg Neutrophils # Seg Neutrophils # Man Lymphocytes # (Manual) Monocytes # (Manual) PT 19.9 H INR 1.69 H APTT Fibrinogen Heparin Anti-Xa Level POC ABG pH POC ABG pCO2 POC ABG pO2 POC Potassium POC Chloride Sodium Potassium Chloride Carbon Dioxide POC BUN BUN Creatinine Glucose POC Glucose 110 H Calcium Magnesium AST Alkaline Phosphatase Total Protein Albumin Urine WBC (Auto) Crossmatch 06/27/16 06/27/16 06/27/16 05:43 05:43 06:40 WBC RBC Hgb POC Hgb Hct POC Hct MCH MCHC RDW Plt Count Lymph % (Auto) [place] % (Auto) Lymph # [place] # Baso # Seg Neutrophils % Seg Neuts % (Manual) Lymphocytes % (Manual) Monocytes % (Manual) Nucleated RBC % Seg Neutrophils # Seg Neutrophils # Man Lymphocytes # (Manual) Monocytes # (Manual) PT INR APTT Fibrinogen Heparin Anti-Xa Level 2.00 H POC ABG pH POC ABG pCO2 POC ABG pO2 POC Potassium POC Chloride Sodium Potassium Chloride Carbon Dioxide 20 L POC BUN BUN 58 H Creatinine 4.8 H Glucose POC Glucose 109 H Calcium 8.1 L Magnesium AST Alkaline Phosphatase Total Protein Albumin Urine WBC (Auto) Crossmatch 06/27/16 06/27/16 06/27/16 08:15 16:46 17:47 WBC RBC Hgb POC Hgb Hct POC Hct MCH MCHC RDW Plt Count Lymph % (Auto) [place] % (Auto) Lymph # [place] # Baso # Seg Neutrophils % Seg Neuts % (Manual) Lymphocytes % (Manual) Monocytes % (Manual) Nucleated RBC % Seg Neutrophils # Seg Neutrophils # Man Lymphocytes # (Manual) Monocytes # (Manual) PT INR APTT Fibrinogen Heparin Anti-Xa Level > 2.00 H 1.87 H POC ABG pH POC ABG pCO2 POC ABG pO2 POC Potassium POC Chloride Sodium Potassium Chloride Carbon Dioxide POC BUN BUN Creatinine Glucose POC Glucose 231 H Calcium Magnesium AST Alkaline Phosphatase Total Protein Albumin Urine WBC (Auto) Crossmatch 06/27/16 06/27/16 06/28/16 21:23 23:54 06:27 WBC RBC Hgb POC Hgb Hct POC Hct MCH MCHC RDW Plt Count Lymph % (Auto) [place] % (Auto) Lymph # [place] # Baso # Seg Neutrophils % Seg Neuts % (Manual) Lymphocytes % (Manual) Monocytes % (Manual) Nucleated RBC % Seg Neutrophils # Seg Neutrophils # Man Lymphocytes # (Manual) Monocytes # (Manual) PT INR APTT Fibrinogen Heparin Anti-Xa Level 1.70 H POC ABG pH POC ABG pCO2 POC ABG pO2 POC Potassium POC Chloride Sodium Potassium Chloride Carbon Dioxide POC BUN BUN 62 H Creatinine 4.5 H Glucose 111 H POC Glucose 122 H Calcium 8.3 L Magnesium AST Alkaline Phosphatase Total Protein Albumin Urine WBC (Auto) Crossmatch 06/28/16 06/28/16 06/28/16 06:27 11:47 14:14 WBC RBC Hgb 7.7 L POC Hgb Hct 22.9 L POC Hct MCH MCHC RDW Plt Count Lymph % (Auto) [place] % (Auto) Lymph # [place] # Baso # Seg Neutrophils % Seg Neuts % (Manual) Lymphocytes % (Manual) Monocytes % (Manual) Nucleated RBC % Seg Neutrophils # Seg Neutrophils # Man Lymphocytes # (Manual) Monocytes # (Manual) PT INR APTT Fibrinogen Heparin Anti-Xa Level POC ABG pH 7.461 H POC ABG pCO2 31.9 L POC ABG pO2 73 L POC Potassium POC Chloride Sodium Potassium Chloride Carbon Dioxide POC BUN BUN Creatinine Glucose POC Glucose 155 H Calcium Magnesium AST Alkaline Phosphatase Total Protein Albumin Urine WBC (Auto) Crossmatch 06/28/16 06/28/16 06/28/16 16:27 20:47 22:59 WBC RBC Hgb POC Hgb Hct POC Hct MCH MCHC RDW Plt Count Lymph % (Auto) [place] % (Auto) Lymph # [place] # Baso # Seg Neutrophils % Seg Neuts % (Manual) Lymphocytes % (Manual) Monocytes % (Manual) Nucleated RBC % Seg Neutrophils # Seg Neutrophils # Man Lymphocytes # (Manual) Monocytes # (Manual) PT INR APTT Fibrinogen Heparin Anti-Xa Level 1.16 H POC ABG pH POC ABG pCO2 POC ABG pO2 POC Potassium POC Chloride Sodium Potassium Chloride Carbon Dioxide POC BUN BUN Creatinine Glucose POC Glucose 193 H 126 H Calcium Magnesium AST Alkaline Phosphatase Total Protein Albumin Urine WBC (Auto) Crossmatch 06/29/16 06/29/16 06/29/16 05:51 09:10 09:10 WBC RBC Hgb POC Hgb Hct POC Hct MCH MCHC RDW Plt Count Lymph % (Auto) [place] % (Auto) Lymph # [place] # Baso # Seg Neutrophils % Seg Neuts % (Manual) Lymphocytes % (Manual) Monocytes % (Manual) Nucleated RBC % Seg Neutrophils # Seg Neutrophils # Man Lymphocytes # (Manual) Monocytes # (Manual) PT INR APTT Fibrinogen Heparin Anti-Xa Level 0.92 H POC ABG pH POC ABG pCO2 POC ABG pO2 POC Potassium POC Chloride Sodium Potassium Chloride Carbon Dioxide POC BUN BUN 53 H Creatinine 3.7 H Glucose 139 H POC Glucose 121 H Calcium 8.2 L Magnesium AST Alkaline Phosphatase Total Protein Albumin Urine WBC (Auto) Crossmatch 06/29/16 06/30/16 06/30/16 21:22 05:09 08:07 WBC RBC Hgb 7.3 L POC Hgb Hct 21.9 L POC Hct MCH MCHC RDW Plt Count Lymph % (Auto) [place] % (Auto) Lymph # [place] # Baso # Seg Neutrophils % Seg Neuts % (Manual) Lymphocytes % (Manual) Monocytes % (Manual) Nucleated RBC % Seg Neutrophils # Seg Neutrophils # Man Lymphocytes # (Manual) Monocytes # (Manual) PT INR APTT Fibrinogen Heparin Anti-Xa Level POC ABG pH POC ABG pCO2 POC ABG pO2 POC Potassium POC Chloride Sodium Potassium Chloride Carbon Dioxide POC BUN BUN Creatinine Glucose POC Glucose 108 H 106 H Calcium Magnesium AST Alkaline Phosphatase Total Protein Albumin Urine WBC (Auto) Crossmatch 06/30/16 06/30/16 06/30/16 10:48 12:13 16:48 WBC RBC Hgb POC Hgb Hct POC Hct MCH MCHC RDW Plt Count Lymph % (Auto) [place] % (Auto) Lymph # [place] # Baso # Seg Neutrophils % Seg Neuts % (Manual) Lymphocytes % (Manual) Monocytes % (Manual) Nucleated RBC % Seg Neutrophils # Seg Neutrophils # Man Lymphocytes # (Manual) Monocytes # (Manual) PT INR APTT Fibrinogen Heparin Anti-Xa Level POC ABG pH POC ABG pCO2 POC ABG pO2 POC Potassium POC Chloride Sodium Potassium Chloride Carbon Dioxide POC BUN BUN 46 H Creatinine 3.0 H Glucose POC Glucose 153 H 152 H Calcium Magnesium AST Alkaline Phosphatase Total Protein Albumin Urine WBC (Auto) Crossmatch 06/30/16 07/01/16 07/01/16 21:47 05:47 07:44 WBC 19.8 H RBC 2.45 L Hgb 7.2 L POC Hgb Hct 22.2 L POC Hct MCH MCHC RDW Plt Count 481 H Lymph % (Auto) 5.5 L [place] % (Auto) Lymph # 1.1 L [place] # 1.4 H Baso # Seg Neutrophils % 86.8 H Seg Neuts % (Manual) Lymphocytes % (Manual) Monocytes % (Manual) Nucleated RBC % Seg Neutrophils # 17.1 H Seg Neutrophils # Man Lymphocytes # (Manual) Monocytes # (Manual) PT INR APTT Fibrinogen Heparin Anti-Xa Level POC ABG pH POC ABG pCO2 POC ABG pO2 POC Potassium POC Chloride Sodium Potassium Chloride Carbon Dioxide POC BUN BUN Creatinine Glucose POC Glucose 162 H 124 H Calcium Magnesium AST Alkaline Phosphatase Total Protein Albumin Urine WBC (Auto) Crossmatch 07/01/16 07/01/16 07/01/16 07:44 11:55 16:16 WBC RBC Hgb POC Hgb Hct POC Hct MCH MCHC RDW Plt Count Lymph % (Auto) [place] % (Auto) Lymph # [place] # Baso # Seg Neutrophils % Seg Neuts % (Manual) Lymphocytes % (Manual) Monocytes % (Manual) Nucleated RBC % Seg Neutrophils # Seg Neutrophils # Man Lymphocytes # (Manual) Monocytes # (Manual) PT INR APTT Fibrinogen Heparin Anti-Xa Level POC ABG pH POC ABG pCO2 POC ABG pO2 POC Potassium POC Chloride Sodium Potassium 3.1 L Chloride Carbon Dioxide POC BUN BUN 38 H Creatinine 2.2 H Glucose 114 H POC Glucose 114 H 143 H Calcium Magnesium AST Alkaline Phosphatase Total Protein Albumin Urine WBC (Auto) Crossmatch 07/01/16 07/02/16 07/02/16 21:42 05:40 06:46 WBC 18.1 H RBC 2.45 L Hgb 7.3 L POC Hgb Hct 21.8 L POC Hct MCH MCHC RDW Plt Count 490 H Lymph % (Auto) 6.1 L [place] % (Auto) Lymph # 1.1 L [place] # 1.1 H Baso # 0.2 H Seg Neutrophils % 86.0 H Seg Neuts % (Manual) Lymphocytes % (Manual) Monocytes % (Manual) Nucleated RBC % Seg Neutrophils # 15.6 H Seg Neutrophils # Man Lymphocytes # (Manual) Monocytes # (Manual) PT INR APTT Fibrinogen Heparin Anti-Xa Level POC ABG pH POC ABG pCO2 POC ABG pO2 POC Potassium POC Chloride Sodium Potassium Chloride Carbon Dioxide POC BUN BUN Creatinine Glucose POC Glucose 135 H 135 H Calcium Magnesium AST Alkaline Phosphatase Total Protein Albumin Urine WBC (Auto) Crossmatch 07/02/16 07/02/16 07/02/16 06:46 06:49 11:23 WBC RBC Hgb POC Hgb Hct POC Hct MCH MCHC RDW Plt Count Lymph % (Auto) [place] % (Auto) Lymph # [place] # Baso # Seg Neutrophils % Seg Neuts % (Manual) Lymphocytes % (Manual) Monocytes % (Manual) Nucleated RBC % Seg Neutrophils # Seg Neutrophils # Man Lymphocytes # (Manual) Monocytes # (Manual) PT INR APTT Fibrinogen Heparin Anti-Xa Level POC ABG pH POC ABG pCO2 POC ABG pO2 POC Potassium POC Chloride Sodium Potassium 2.8 L* Chloride Carbon Dioxide POC BUN BUN 30 H Creatinine 1.8 H Glucose 121 H POC Glucose 121 H Calcium 8.1 L Magnesium 1.3 L AST Alkaline Phosphatase Total Protein Albumin Urine WBC (Auto) Crossmatch 07/02/16 07/02/16 07/03/16 17:02 21:31 05:35 WBC RBC Hgb POC Hgb Hct POC Hct MCH MCHC RDW Plt Count Lymph % (Auto) [place] % (Auto) Lymph # [place] # Baso # Seg Neutrophils % Seg Neuts % (Manual) Lymphocytes % (Manual) Monocytes % (Manual) Nucleated RBC % Seg Neutrophils # Seg Neutrophils # Man Lymphocytes # (Manual) Monocytes # (Manual) PT INR APTT Fibrinogen Heparin Anti-Xa Level POC ABG pH POC ABG pCO2 POC ABG pO2 POC Potassium POC Chloride Sodium Potassium Chloride Carbon Dioxide POC BUN BUN Creatinine Glucose POC Glucose 121 H 159 H 149 H Calcium Magnesium AST Alkaline Phosphatase Total Protein Albumin Urine WBC (Auto) Crossmatch 07/03/16 07/03/16 07/03/16 06:45 06:45 06:45 WBC 16.8 H RBC 2.21 L Hgb 6.5 L POC Hgb Hct 19.4 L* POC Hct MCH MCHC RDW Plt Count 503 H Lymph % (Auto) 6.4 L [place] % (Auto) Lymph # 1.1 L [place] # 1.1 H Baso # Seg Neutrophils % 85.6 H Seg Neuts % (Manual) Lymphocytes % (Manual) Monocytes % (Manual) Nucleated RBC % Seg Neutrophils # 14.4 H Seg Neutrophils # Man Lymphocytes # (Manual) Monocytes # (Manual) PT INR APTT Fibrinogen Heparin Anti-Xa Level POC ABG pH POC ABG pCO2 POC ABG pO2 POC Potassium POC Chloride Sodium Potassium 2.9 L* Chloride Carbon Dioxide POC BUN BUN 21 H Creatinine 1.6 H Glucose 126 H POC Glucose Calcium 8.0 L Magnesium 1.6 L AST Alkaline Phosphatase Total Protein Albumin Urine WBC (Auto) Crossmatch 07/03/16 07/03/16 07/03/16 12:54 19:00 20:01 WBC RBC Hgb POC Hgb Hct POC Hct MCH MCHC RDW Plt Count Lymph % (Auto) [place] % (Auto) Lymph # [place] # Baso # Seg Neutrophils % Seg Neuts % (Manual) Lymphocytes % (Manual) Monocytes % (Manual) Nucleated RBC % Seg Neutrophils # Seg Neutrophils # Man Lymphocytes # (Manual) Monocytes # (Manual) PT INR APTT Fibrinogen Heparin Anti-Xa Level POC ABG pH 7.302 L POC ABG pCO2 49.8 H POC ABG pO2 422 H POC Potassium POC Chloride Sodium Potassium Chloride Carbon Dioxide POC BUN BUN Creatinine Glucose POC Glucose 129 H Calcium Magnesium AST Alkaline Phosphatase Total Protein Albumin Urine WBC (Auto) Crossmatch See Detail 07/03/16 07/04/16 07/04/16 23:09 04:30 04:30 WBC 19.6 H RBC 3.21 L Hgb 9.4 L POC Hgb Hct 28.2 L POC Hct MCH MCHC RDW Plt Count Lymph % (Auto) 6.5 L [place] % (Auto) Lymph # [place] # 1.2 H Baso # Seg Neutrophils % 86.4 H Seg Neuts % (Manual) Lymphocytes % (Manual) Monocytes % (Manual) Nucleated RBC % Seg Neutrophils # 16.9 H Seg Neutrophils # Man Lymphocytes # (Manual) Monocytes # (Manual) PT INR APTT Fibrinogen Heparin Anti-Xa Level POC ABG pH POC ABG pCO2 POC ABG pO2 POC Potassium POC Chloride Sodium Potassium 3.5 L D Chloride 111.2 H Carbon Dioxide 20 L POC BUN BUN 18 H Creatinine Glucose POC Glucose 111 H Calcium 7.0 L Magnesium AST Alkaline Phosphatase Total Protein Albumin Urine WBC (Auto) Crossmatch 07/04/16 07/04/16 07/04/16 05:44 12:50 14:33 WBC RBC Hgb POC Hgb Hct POC Hct MCH MCHC RDW Plt Count Lymph % (Auto) [place] % (Auto) Lymph # [place] # Baso # Seg Neutrophils % Seg Neuts % (Manual) Lymphocytes % (Manual) Monocytes % (Manual) Nucleated RBC % Seg Neutrophils # Seg Neutrophils # Man Lymphocytes # (Manual) Monocytes # (Manual) PT INR APTT Fibrinogen Heparin Anti-Xa Level POC ABG pH 7.465 H 7.468 H POC ABG pCO2 29.5 L 29.1 L 33.1 L POC ABG pO2 110 H 39 L POC Potassium POC Chloride Sodium Potassium Chloride Carbon Dioxide POC BUN BUN Creatinine Glucose POC Glucose Calcium Magnesium AST Alkaline Phosphatase Total Protein Albumin Urine WBC (Auto) Crossmatch 07/04/16 07/05/16 07/05/16 16:49 00:20 04:19 WBC 16.2 H RBC 3.44 L Hgb POC Hgb Hct POC Hct MCH MCHC RDW Plt Count Lymph % (Auto) 5.2 L [place] % (Auto) 7.5 H Lymph # 0.8 L [place] # 1.2 H Baso # Seg Neutrophils % 86.5 H Seg Neuts % (Manual) Lymphocytes % (Manual) Monocytes % (Manual) Nucleated RBC % Seg Neutrophils # 14.0 H Seg Neutrophils # Man Lymphocytes # (Manual) Monocytes # (Manual) PT INR APTT Fibrinogen Heparin Anti-Xa Level POC ABG pH POC ABG pCO2 31.1 L POC ABG pO2 110 H POC Potassium POC Chloride Sodium Potassium Chloride Carbon Dioxide POC BUN BUN Creatinine Glucose POC Glucose 168 H Calcium Magnesium AST Alkaline Phosphatase Total Protein Albumin Urine WBC (Auto) Crossmatch 07/05/16 07/05/16 07/05/16 04:19 06:01 09:54 WBC RBC Hgb POC Hgb Hct POC Hct MCH MCHC RDW Plt Count Lymph % (Auto) [place] % (Auto) Lymph # [place] # Baso # Seg Neutrophils % Seg Neuts % (Manual) Lymphocytes % (Manual) Monocytes % (Manual) Nucleated RBC % Seg Neutrophils # Seg Neutrophils # Man Lymphocytes # (Manual) Monocytes # (Manual) PT INR APTT Fibrinogen Heparin Anti-Xa Level POC ABG pH POC ABG pCO2 POC ABG pO2 POC Potassium POC Chloride Sodium 146 H Potassium 3.5 L Chloride 109.1 H Carbon Dioxide POC BUN BUN Creatinine Glucose 135 H POC Glucose 146 H 284 H Calcium 7.8 L Magnesium AST Alkaline Phosphatase Total Protein Albumin Urine WBC (Auto) Crossmatch 07/05/16 07/06/16 07/06/16 13:35 04:40 04:40 WBC 17.7 H RBC 3.32 L Hgb 9.8 L POC Hgb Hct 29.8 L POC Hct MCH MCHC RDW Plt Count Lymph % (Auto) [place] % (Auto) Lymph # [place] # Baso # Seg Neutrophils % Seg Neuts % (Manual) 85.0 H Lymphocytes % (Manual) 4.0 L Monocytes % (Manual) 10.0 H Nucleated RBC % Seg Neutrophils # Seg Neutrophils # Man 15.0 H Lymphocytes # (Manual) 0.7 L Monocytes # (Manual) 1.8 H PT INR APTT Fibrinogen Heparin Anti-Xa Level POC ABG pH POC ABG pCO2 POC ABG pO2 POC Potassium POC Chloride Sodium Potassium 3.5 L Chloride Carbon Dioxide 21 L POC BUN BUN Creatinine Glucose 108 H POC Glucose 130 H Calcium 7.8 L Magnesium AST Alkaline Phosphatase Total Protein Albumin Urine WBC (Auto) Crossmatch 07/06/16 07/06/16 07/06/16 07:46 11:49 15:31 WBC RBC Hgb POC Hgb Hct POC Hct MCH MCHC RDW Plt Count Lymph % (Auto) [place] % (Auto) Lymph # [place] # Baso # Seg Neutrophils % Seg Neuts % (Manual) Lymphocytes % (Manual) Monocytes % (Manual) Nucleated RBC % Seg Neutrophils # Seg Neutrophils # Man Lymphocytes # (Manual) Monocytes # (Manual) PT INR APTT Fibrinogen Heparin Anti-Xa Level POC ABG pH POC ABG pCO2 POC ABG pO2 POC Potassium POC Chloride Sodium Potassium Chloride Carbon Dioxide POC BUN BUN Creatinine Glucose POC Glucose 149 H 146 H 135 H Calcium Magnesium AST Alkaline Phosphatase Total Protein Albumin Urine WBC (Auto) Crossmatch 07/06/16 07/06/16 07/07/16 17:17 20:59 04:53 WBC 15.5 H RBC 3.55 L Hgb POC Hgb Hct POC Hct MCH MCHC RDW Plt Count Lymph % (Auto) 4.9 L [place] % (Auto) Lymph # 0.8 L [place] # 0.9 H Baso # Seg Neutrophils % 87.9 H Seg Neuts % (Manual) Lymphocytes % (Manual) Monocytes % (Manual) Nucleated RBC % Seg Neutrophils # 13.7 H Seg Neutrophils # Man Lymphocytes # (Manual) Monocytes # (Manual) PT INR APTT Fibrinogen Heparin Anti-Xa Level POC ABG pH POC ABG pCO2 POC ABG pO2 POC Potassium POC Chloride Sodium Potassium Chloride Carbon Dioxide POC BUN BUN Creatinine Glucose POC Glucose 140 H Calcium Magnesium AST Alkaline Phosphatase Total Protein Albumin Urine WBC (Auto) 67.0 H Crossmatch 07/07/16 07/07/16 07/07/16 04:53 06:13 07:15 WBC RBC Hgb POC Hgb Hct POC Hct MCH MCHC RDW Plt Count Lymph % (Auto) [place] % (Auto) Lymph # [place] # Baso # Seg Neutrophils % Seg Neuts % (Manual) Lymphocytes % (Manual) Monocytes % (Manual) Nucleated RBC % Seg Neutrophils # Seg Neutrophils # Man Lymphocytes # (Manual) Monocytes # (Manual) PT INR APTT Fibrinogen Heparin Anti-Xa Level POC ABG pH POC ABG pCO2 POC ABG pO2 POC Potassium POC Chloride Sodium Potassium 3.4 L Chloride Carbon Dioxide POC BUN BUN Creatinine Glucose 104 H POC Glucose 122 H 134 H Calcium 8.0 L Magnesium AST Alkaline Phosphatase Total Protein Albumin Urine WBC (Auto) Crossmatch 07/07/16 08:06 WBC RBC Hgb POC Hgb Hct POC Hct MCH MCHC RDW Plt Count Lymph % (Auto) [place] % (Auto) Lymph # [place] # Baso # Seg Neutrophils % Seg Neuts % (Manual) Lymphocytes % (Manual) Monocytes % (Manual) Nucleated RBC % Seg Neutrophils # Seg Neutrophils # Man Lymphocytes # (Manual) Monocytes # (Manual) PT INR APTT Fibrinogen Heparin Anti-Xa Level POC ABG pH POC ABG pCO2 POC ABG pO2 POC Potassium POC Chloride Sodium Potassium Chloride Carbon Dioxide POC BUN BUN Creatinine Glucose 111 H POC Glucose Calcium 7.9 L Magnesium AST 53 H Alkaline Phosphatase 164 H Total Protein 6.2 L Albumin 1.4 L Urine WBC (Auto) Crossmatch
--- NOTE | 2016-07-07 10:26 | Operative Report ---
Operative Report Operative Report: Date of procedure: 07/07/2016 Pre-operative diagnosis: Necrosis of left groin wound Post-operative diagnosis: Same Procedure name(s): 1. Debridement of the left groin wound. 2. Removal of an infected [place] patch from the SFA. 3. 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 4. Creation of the sartorius muscle flap over common femoral artery bovine pericardial patch. Surgeon: Joaquin Ochoa MD, RPVI [place] Photographer: None Anesthesia: General Findings 1. Extensive necrosis and infection of the left groin wound. 2. 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 3. Infected [place] patch. 4. Large foul-smelling hematoma in the left groin and retroperitoneum. 5. Extensive necrosis of the skin over the left groin. 6. Viable sartorius muscle flap. Specimens: 1. Left groin deep tissues. 2. Left groin infected hematoma. 3. Proximal portion of the venous bypass. 4. Dacron patch. EBL: 500 mL IV fluids: 2200 mL Urine output: 300 mL Disposition: ICU Indications: Infected left groin wound Procedure Patient was brought to the operating room laid on the operating table in supine position. After general anesthesia was achieved patient is prepped draped usual sterile fashion. The left groin incision was already partially open. He had extensive necrosis of the skin around the incision. The incision was opened by removing the necrotic skin. Upon entering the wound the entire wound was necrotic and had a large hematoma that appeared to have purulent substance. That hematoma was removed and it appeared to extend into the retroperitoneum and some of that hematoma was removed as well. The tissue was sent for cultures. All necrotic tissue which were sharply debrided and the graft was exposed. There was no pulse in the graft and it appeared to have clot. The graft appeared to have a slightly biofilm over. Further exploration revealed an infected [place] patch on the SFA. At this point the graft was unsalvageable and decided to be removed. Proximal portion of the graft was closed using 5-0 Prolene stitch. Distally it was closed the same way. The graft was sent for cultures. There was no flow in the distal SFA. It was transected distal to the patch. And a patch and the proximal SFA were dissected free up to the common femoral artery. I could not remove the patch without clamping the common femoral artery so the patient received 2000 units of heparin and the common femoral artery was clamped using the vascular clamp. The rest of the patch was removed and the common femoral artery was repaired using 5-0 Prolene stitch. Further exploration revealed a bovine pericardial patch and the common femoral artery. That could not be removed without ligating the common femoral artery. The sartorius muscle was examined and was found to be viable. It was dissected laterally and rotated over the common femoral artery the proximal attachment site had to be removed resected and sutured to the inguinal ligament. We were able achieved a complete coverage of the common femoral artery with a sartorius muscle. The wound was once again inspected and no further necrosis or hematoma were noted. The wound was packed with Betadine soaked Curlex. Patient will undergo a VAC placement tomorrow. Patient tolerated procedure well. Given the fact that her graft had to be ligated patient is at high risk for needing an amputation however given condition of her groin revascularization is not possible.
[2016-07-07] MEDS ORDERED: MORPHINE ONE (10:54)
[2016-07-07] MEDS: NORCO 7.5/325 PO PRN (11:58)
[2016-07-07] MEDS: TENORMIN PO SCH (11:59)
[2016-07-07] MEDS: PROTONIX PO SCH ×2 (11:59→12:48)
[2016-07-07] MEDS: POTASSIUM CHLORIDE FEEDTUBE SCH (12:00)
[2016-07-07] MEDS: MORPHINE PCA 30MG/30ML IV SCH (12:29)
[2016-07-07] MEDS: K-DUR PO SCH (12:48)
[2016-07-07] MEDS ORDERED: MORPHINE IV ONE (13:00)
[2016-07-07] MEDS: BABY ASPIRIN PO SCH (13:30)
[2016-07-07] MEDS: PLAVIX PO SCH (13:30)
[2016-07-07 14:11] LABS: Hematocrit 30.1 % (30.3-42.9); Hemoglobin 9.7 gm/dl (10.1-14.3)
[2016-07-07] MEDS: VITAMIN D2 PO SCH (15:07)
[2016-07-07] MEDS: FERROUS SULFATE PO SCH (15:07)
[2016-07-07] MEDS: THERMAZENE 50 GRAM TP SCH (19:42)
[2016-07-07] MEDS: D5W/0.45% NACL/KCL 20 MEQ 1,000 ML IV SCH (20:23)
[2016-07-07] MEDS ORDERED: ELIQUIS PO SCH (22:00)
[2016-07-08] MEDS: ZOSYN/NS 4.5GM/100ML 100 ML IV SCH ×4 (04:39→20:36)
--- NOTE | 2016-07-08 04:43 | Admit Criteria Form ---
Admission Criteria Documentation: AMBULATORY SURGERY EXCEPTION CRITERIA Ambulatory Surgery Exception Criteria ( Place 'X' for any and all applicable criteria): Surgery or procedure performed on ambulatory basis may require inpatient stay for[A] ANY ONE of the following(1)(2)(3)(4)(5)(6)(7)(8)(9): [X] I. A preoperative situation, condition, or finding that warrants inpatient stay as indicated by ANY ONE of the following: [] a) Inpatient care needed because of severity of a disease or condition rather than the surgery (eg, severe cardiac or respiratory disease, severe infection) (15) (16 ) (17) (18) [] b) Emergent procedure (eg, angioplasty for acute ischemia)(19) [] c) Complex surgical approach or situation as indicated by ANY ONE of the following(3): [] i) Open approach needed instead of usual endoscopic, transcatheter, or other less invasive procedure [] ii) Difficult approach because of previous operation [] iii) Airway monitoring required after open neck procedures(20)(21) [] iv) Large mass requiring unusually extensive dissection [] v) Additional complicating feature requiring inpatient care (eg, drain management)(22(23): [X] d) Major surgery in a pt with high anesthetic risk as indicated by ANY ONE of the following (2)(3)(5)(7)(8): [X] i) ASA risk class III or higher (severe systemic disease impairing function) [D] [] ii) Advanced age (eg, older than 85 years)(14)(24) [] iii) Symptomatic heart failure(25) [] iv) Symptomatic asthma or COPD(8)(21) [] v) Morbid obesity with hemodynamic or respiratory problems(20)( 21)(26)(27) [] vi) Obstructive sleep apnea(20)(21) [] vii) Former premature infants who are younger than 60 weeks [] viii) High risk for severe postoperative abnormalities (eg, severe postoperative hypocalcemia after parathyroidectomy for severe hyperparathyroidism)(27)( 28) [] ix) Unstable angina(25) [] e) Drug-related risk requiring inpatient stay as indicated by ANY ONE of the following(5)(10)(14)(32)(33) [] i) Procedure requires discontinuing drugs or other therapy (eg , antiarrhythmic medication, antiseizure medication), which necessitates inpatient observation or treatment.(18)(31) [] ii) Major surgery and high risk drug use as indicated by ANY ONE of the following: [] 1) Active abuse of cocaine or similar drug [] 2) Monoamine oxidase inhibitor use [] 3) Other drug identified as posing risk [] f) Inadequate outpatient care situation as indicated by ANY ONE of the following(5)(10)(14)(32)(33) [] i) Patient lives remote from medical facility and procedure has urgent complication potential, and temporary nearby residence cannot be arranged [] ii) Patient will have postprocedure incapacitation and inadequate assistance at home, or alternative level of care cannot be arranged. [] iii) Patient will have long general anesthesia or procedure side effect resolution time, and competent person to stay with patient on first postoperative night at home or alternative level of care cannot be arranged. []iv) Other inadequate outpatient situation that cannot be handled by other means [] II. A perioperative event, condition, or finding that warrants inpatient stay as indicated by ANY ONE of the following (1)(2)(3): [] a) Inadequate physiologic recovery: cardiovascular, respiratory, or hemodynamic status not normal or near preoperative baseline(18) [] b) Hemodynamic instability [] c) Patient not alert with near normal or baseline mental status [] d) Temperature not normal or as expected and not appropriate for outpatient treatment of condition [] e) Ambulatory or appropriate activity level status not yet achieved post procedure [E](34)(35)(36) [] f) Operative site not appropriate (eg, unexpected or excessive drainage or bleeding) [] g) Postoperative effects not resolved or adequately managed (eg, significant pain or vomiting not appropriate for outpatient or next level of care)(10)(12) [] h) Complicating features requiring inpatient care as indicated by ANY ONE of the following(37): [] i) Severe complications of procedure (eg, bowel injury, airway compromise, vascular injury,severe hemorrhage) [] ii) Extensive (eg, dissection far beyond usual scope of procedure ) or prolonged (eg, 120 minutes beyond usual) surgery needed requiring inpatient postoperative care [] iii) Conversion to an open or complex procedure that requires inpatient care (eg, open vs laparoscopic cholecystectomy, abdominal vs vaginal hysterectomy)(38) [] iv) Comorbid condition or test result identified during or post procedure that requires inpatient care (7) [] v) Malignant hyperthermia(30) [] vi) Other complicating feature requiring inpatient care(22)(23) Inpatient stay may be needed until ALL of the following are present (1)(2)(3)(4) (5)(6)(10)(14)(33)(40): []a) Physiologic recovery: cardiovascular, respiratory, and hemodynamic status normal or near preoperative baseline []b) Hemodynamic stability []c) Patient alert, with near normal or baseline mental status []d) Temperature appropriate: patient afebrile or temperature appropriate for outpt treatment of condition []e) Activity level appropriate: ambulatory or appropriate activity level post procedure []f) Operative site appropriate as indicated by ALL of the following: []i) Site dry or with expected drainage []ii) Any blood noted is as expected for procedure. []g) Postoperative effects resolved or managed as indicated by ALL of the following: []i) Pain management appropriate for outpatient (or next level of) care(10) []ii) Minimal nausea and vomiting: if present, successfully treated with oral medication(12) []iii) Headache, dizziness, or drowsiness (if present) are mild. []h) Voiding status acceptable as indicated by ANY ONE of the following: []i) Voiding spontaneously []ii) No voiding but instructions given for follow-up in 6 to 8 hours []iii) Urinary catheter in place, and instructions given for follow-up []i) Complicating features requiring inpatient care manageable at a lower level of care(37) []j) Comorbid conditions manageable at a lower level of care(37) The original [employer] content created by [employer] has been revised. The portions of the content which have been revised are identified through the use of italic text or in bold, and [facility] [employer] has neither reviewed nor approved the modified material. All other unmodified content is copyright [employer]. Please see references footnoted in the original [employer] edition 2016 Admission Criteria Met: Yes
--- NOTE | 2016-07-08 08:39 | Progress Note ---
Assessment and Plan Current antibiotics: None Previous antibiotics: Zosyn 2.25 g IV q8h 06/21-06/24 Cefazolin perioperatively ASSESSMENT: Cande Ge is a 55-year-old female with severe peripheral vascular disease, type 2 DM with peripheral neuropathy and hypertension who was admitted to [facility] as an outpatient with left lower extremity pain at rest for her cutaneous intervention which was unsuccessful and subsequently underwent left femoral endarterectomy and left iliac stenting and left femoral-popliteal bypass on 06/16 , urgent thrombectomies on 06/20 and right femoral endarterectomy with patch angioplasty on 07/03. She also had 2 cardiac arrests on 06/20 requiring resuscitation and intubation. She developed evidence of a retroperitoneal hematoma and ureteral obstruction and underwent bilateral ureteral stenting on 06/27. She has had a low-grade fever and leukocytosis. 07/07/16: Debridement of the left groin wound. Removal of infected Dacron patch from the SFA. Removal of thrombosed infected vein bypass graft proximal portion. Creation of the sartorius muscle flap over common femoral artery bovine pericardial patch. Problem list: 1. Leukocytosis, multifactoria including ongoing ischemia of lower extremity and surgical findings of left groin necrosis. 2. left groin infection, in view of operative findings of necrotic tissue, bypass graft was removed. Gram stain of surgical culture with gram positive cocci in pairs and gram negative rods 3. Low-grade fever -improved 4. Severe peripheral vascular disease -Unsuccessful attempt at percutaneous left lower extremity revascularization 06/13 -Left femoral endarterectomy, left iliac stenting and left femoral-popliteal bypass on 06/16 -Left lower extremity thrombectomies on 06/20 -Right femoral endarterectomy with patch angioplasty on 07/03 5. Retroperitoneal hematoma -As seen on CT scan 06/27 6. Bilateral hydroureteronephrosis -Status post bilateral ureteral stenting 06/27 7. Status post cardiopulmonary arrests X 2 -06/20 -Mechanical ventilatory support until 07/05 PLAN: 1. continue zosyn 3.375 gm iv Q8H 2. willl deescalate antibiotics based on surgical cultures Subjective Date of service: 07/08/16 Principal diagnosis: Acute Hypoxemic Respiratory Failure; s/p cardiopulmonary arrest Interval history: Patient is unhappy about still being in the hospital. She said her pain is minimal Objective - Constitutional Vitals: Selected Entries 07/07/16 07/08/16 16:30 07:00 Temperature 97.8 F Respiratory 12 Rate O2 Sat by Pulse 100 Oximetry Blood Pressure 138/82 Blood Pressure 100 Mean General appearance: Present: no acute distress, well-nourished - EENT Eyes: PERRL, EOM intact, no scleral icterus, no conjunctival injection ENT: hearing intact, clear oral mucosa, edentulous Ears: bilateral: normal - Neck Neck: supple, normal ROM, no enlarged thyroid, no masses or JVD - Respiratory Respiratory: bilateral: CTA - Breasts Breasts: deferred - Cardiovascular Rhythm: regular Heart Sounds: Present: S1 & S2 Extremities: abnormal (unable to palpate pulses) Extremity abnormal: edema, cyanosis, other (bilateral inguinal wound dressings in place, left leg cool to the touch) - Gastrointestinal Rectal Exam: deferred - Integumentary Integumentary: clear, warm - Psychiatric Psychiatric: cooperative, depressed - Labs CBC & Chem 7: 07/07/16 13:57 07/07/16 08:06 Labs: Microbiology 07/07/16 Unknown Thigh - Left Surgical Biopsy Culture - Preliminary 07/07/16 Unknown Thigh - Left Surgical Biopsy Culture - Preliminary 07/07/16 Unknown Thigh - Left Surgical Biopsy Culture - Preliminary Laboratory Tests 07/07/16 07/07/16 04:53 08:06 WBC 15.5 H Creatinine 0.9
--- NOTE | 2016-07-08 10:25 | Progress Note ---
Assessment and Plan - Patient Problems (1) Peripheral vascular disease of extremity Current Visit: Yes Status: Acute Plan to address problem: - s/p operative re-intervention - will defer to vascular surgery team (2) Acute respiratory failure Current Visit: Yes Status: Acute Plan to address problem: - resolved - prn oxygen - prn bronchodilators (3) Anemia Current Visit: Yes Status: Acute Plan to address problem: - Hb level holding - will repeat in am re: EBL during surgery - follow clinically (4) Altered mental status Current Visit: Yes Status: Acute Plan to address problem: - resolved (5) Left Groin Wound Current Visit: Yes Status: Acute - continue anti-infectives per ID recs - follow wound tissue cultures - thankfully no S&S of overwhelming sepsis - will follow clinically (6) Discharge planning issues Current Visit: Yes Status: Acute Plan to address problem: - being observed in ICU mainly for vascular/ surgical issues; will discuss with vascular team re: transfer to LTAC vs transfer to medical floor/telemetry - currently hemodynamically stable - Patient Problems (1) Peripheral vascular disease of extremity Current Visit: Yes Status: Acute (2) Acute respiratory failure Current Visit: Yes Status: Acute (3) Anemia Current Visit: Yes Status: Acute (4) Altered mental status Current Visit: Yes Status: Acute Subjective Date of service: 07/08/16 Principal diagnosis: Acute Hypoxemic Respiratory Failure; s/p cardiopulmonary arrest Interval history: Seen and examined at bedside; 24 hour events reviewed; nursing and respiratory care staff consulted; no adverse overnight events reported to me; s/p wound vac placement; denies acute chest pain; no limb pain except at site of groin wound Objective Vital Signs - 12hr 07/07/16 07/07/16 07/08/16 23:00 23:07 00:00 Temperature Pulse Rate 104 H 99 H 99 H Pulse Rate [ Apical] Pulse Rate [ From Monitor] Respiratory 15 18 19 Rate Blood Pressure 135/76 135/76 139/74 O2 Sat by Pulse 100 100 100 Oximetry 07/08/16 07/08/16 07/08/16 01:00 02:00 03:00 Temperature Pulse Rate 99 H 99 H 100 H Pulse Rate [ Apical] Pulse Rate [ From Monitor] Respiratory 14 14 16 Rate Blood Pressure 132/65 119/66 128/70 O2 Sat by Pulse 99 94 Oximetry 07/08/16 07/08/16 07/08/16 03:50 04:00 04:08 Temperature Pulse Rate 100 H 104 H 102 H Pulse Rate [ Apical] Pulse Rate [ From Monitor] Respiratory 18 15 19 Rate Blood Pressure 128/70 133/77 133/77 O2 Sat by Pulse 100 100 Oximetry 07/08/16 07/08/16 07/08/16 05:00 06:00 06:50 Temperature Pulse Rate 108 H 108 H 111 H Pulse Rate [ Apical] Pulse Rate [ From Monitor] Respiratory 17 12 21 Rate Blood Pressure 129/76 130/89 130/89 O2 Sat by Pulse 100 99 Oximetry 07/08/16 07/08/16 07/08/16 07:00 07:20 08:00 Temperature 97.8 F Pulse Rate 109 H 109 H 103 H Pulse Rate [ Apical] Pulse Rate [ From Monitor] Respiratory 12 17 18 Rate Blood Pressure 138/82 138/82 123/69 O2 Sat by Pulse 100 98 100 Oximetry 07/08/16 07/08/16 07/08/16 08:30 09:00 10:00 Temperature Pulse Rate Pulse Rate [ 108 H Apical] Pulse Rate [ 108 H From Monitor] Respiratory 18 Rate Blood Pressure 123/69 132/64 O2 Sat by Pulse 100 100 100 Oximetry Constitutional: no acute distress, alert Eyes: non-icteric ENT: oropharynx moist Neck: supple, no lymphadenopathy Effort: normal Ascultation: Bilateral: clear, diminished breath sounds Cardiovascular: regular rate and rhythm Gastrointestinal: normoactive bowel sounds, soft, non-tender, non-distended Integumentary: other (weak LLExt) Extremities: no cyanosis, edema, other (LLExt cool; no obvious cyanosis) Neurologic: normal mental status, non-focal exam, pupils equal and round Psychiatric: mood appropriate, affect normal CBC and BMP: 07/07/16 13:57 07/07/16 08:06 ABG, PT/INR, D-dimer: ABG POC ABG pH 7.436 (7.35-7.45) 07/04/16 16:49 POC ABG pCO2 31.1 (35-45) L 07/04/16 16:49 POC ABG pO2 110 (80-105) H 07/04/16 16:49 POC ABG HCO3 20.9 07/04/16 16:49 POC ABG Total CO2 22 07/04/16 16:49 POC ABG O2 Sat 99 07/04/16 16:49 PT/INR, D-dimer PT 19.9 Sec. (12.2-14.9) H 06/26/16 22:57 INR 1.69 (0.87-1.13) H 06/26/16 22:57 Abnormal lab findings: Abnormal Labs 06/13/16 06/13/16 06/13/16 09:45 09:45 09:45 WBC RBC Hgb POC Hgb Hct POC Hct MCH 25 L MCHC RDW 15.8 H Plt Count Lymph % (Auto) [place] % (Auto) 8.1 H Lymph # [place] # Baso # Seg Neutrophils % Seg Neuts % (Manual) Lymphocytes % (Manual) Monocytes % (Manual) Nucleated RBC % Seg Neutrophils # Seg Neutrophils # Man Lymphocytes # (Manual) Monocytes # (Manual) PT INR APTT Fibrinogen 522 H Heparin Anti-Xa Level POC ABG pH POC ABG pCO2 POC ABG pO2 POC Potassium POC Chloride Sodium Potassium Chloride Carbon Dioxide POC BUN BUN Creatinine Glucose POC Glucose Calcium 10.3 H Magnesium AST Alkaline Phosphatase Total Protein Albumin Urine WBC (Auto) Crossmatch 06/13/16 06/13/16 06/13/16 09:45 20:14 20:15 WBC RBC Hgb POC Hgb Hct POC Hct MCH MCHC RDW Plt Count Lymph % (Auto) [place] % (Auto) Lymph # [place] # Baso # Seg Neutrophils % Seg Neuts % (Manual) Lymphocytes % (Manual) Monocytes % (Manual) Nucleated RBC % Seg Neutrophils # Seg Neutrophils # Man Lymphocytes # (Manual) Monocytes # (Manual) PT INR APTT 103.8 H* Fibrinogen Heparin Anti-Xa Level 0.72 H POC ABG pH POC ABG pCO2 POC ABG pO2 POC Potassium POC Chloride Sodium Potassium Chloride Carbon Dioxide POC BUN BUN Creatinine Glucose POC Glucose Calcium Magnesium AST Alkaline Phosphatase Total Protein Albumin Urine WBC (Auto) Crossmatch See Detail 06/14/16 06/14/16 06/14/16 07:44 10:18 19:09 WBC RBC Hgb POC Hgb Hct POC Hct MCH 26 L MCHC RDW 15.8 H Plt Count Lymph % (Auto) [place] % (Auto) 9.1 H Lymph # [place] # Baso # Seg Neutrophils % Seg Neuts % (Manual) Lymphocytes % (Manual) Monocytes % (Manual) Nucleated RBC % Seg Neutrophils # Seg Neutrophils # Man Lymphocytes # (Manual) Monocytes # (Manual) PT INR APTT Fibrinogen Heparin Anti-Xa Level 0.76 H POC ABG pH POC ABG pCO2 POC ABG pO2 POC Potassium POC Chloride Sodium Potassium Chloride Carbon Dioxide POC BUN BUN Creatinine Glucose POC Glucose 106 H Calcium Magnesium AST Alkaline Phosphatase Total Protein Albumin Urine WBC (Auto) Crossmatch 06/15/16 06/15/16 06/15/16 04:43 04:43 22:49 WBC RBC Hgb 9.2 L POC Hgb Hct 28.4 L POC Hct MCH MCHC RDW Plt Count Lymph % (Auto) [place] % (Auto) Lymph # [place] # Baso # Seg Neutrophils % Seg Neuts % (Manual) Lymphocytes % (Manual) Monocytes % (Manual) Nucleated RBC % Seg Neutrophils # Seg Neutrophils # Man Lymphocytes # (Manual) Monocytes # (Manual) PT INR APTT Fibrinogen Heparin Anti-Xa Level 0.85 H POC ABG pH POC ABG pCO2 POC ABG pO2 POC Potassium POC Chloride Sodium Potassium Chloride Carbon Dioxide POC BUN BUN Creatinine Glucose POC Glucose 134 H Calcium Magnesium AST Alkaline Phosphatase Total Protein Albumin Urine WBC (Auto) Crossmatch 06/16/16 06/16/16 06/16/16 08:55 08:55 14:21 WBC RBC Hgb POC Hgb 5.8 L Hct POC Hct 17 L MCH MCHC RDW Plt Count Lymph % (Auto) [place] % (Auto) Lymph # [place] # Baso # Seg Neutrophils % Seg Neuts % (Manual) Lymphocytes % (Manual) Monocytes % (Manual) Nucleated RBC % Seg Neutrophils # Seg Neutrophils # Man Lymphocytes # (Manual) Monocytes # (Manual) PT INR APTT 20.0 L Fibrinogen Heparin Anti-Xa Level POC ABG pH POC ABG pCO2 POC ABG pO2 POC Potassium 2.9 L POC Chloride Sodium Potassium Chloride Carbon Dioxide POC BUN 7 L BUN Creatinine Glucose POC Glucose 249 H Calcium Magnesium AST Alkaline Phosphatase Total Protein Albumin Urine WBC (Auto) Crossmatch See Detail 06/16/16 06/16/16 06/16/16 16:55 17:41 17:48 WBC RBC Hgb POC Hgb 8.8 L Hct POC Hct 26 L < 15 L MCH MCHC RDW Plt Count Lymph % (Auto) [place] % (Auto) Lymph # [place] # Baso # Seg Neutrophils % Seg Neuts % (Manual) Lymphocytes % (Manual) Monocytes % (Manual) Nucleated RBC % Seg Neutrophils # Seg Neutrophils # Man Lymphocytes # (Manual) Monocytes # (Manual) PT INR APTT Fibrinogen Heparin Anti-Xa Level POC ABG pH 7.031 L POC ABG pCO2 POC ABG pO2 475 H POC Potassium 3.2 L POC Chloride 112 H 114 H Sodium Potassium Chloride Carbon Dioxide POC BUN 7 L 7 L BUN Creatinine Glucose POC Glucose 203 H 291 H Calcium Magnesium AST Alkaline Phosphatase Total Protein Albumin Urine WBC (Auto) Crossmatch 06/16/16 06/16/16 06/16/16 18:07 19:09 20:10 WBC 15.8 H RBC Hgb POC Hgb 6.5 L Hct POC Hct 19 L MCH MCHC RDW Plt Count 38 L Lymph % (Auto) 5.9 L [place] % (Auto) 9.3 H Lymph # 0.9 L [place] # 1.5 H Baso # Seg Neutrophils % 84.6 H Seg Neuts % (Manual) Lymphocytes % (Manual) Monocytes % (Manual) Nucleated RBC % Seg Neutrophils # 13.3 H Seg Neutrophils # Man Lymphocytes # (Manual) Monocytes # (Manual) PT INR APTT Fibrinogen Heparin Anti-Xa Level POC ABG pH POC ABG pCO2 POC ABG pO2 POC Potassium POC Chloride 113 H Sodium Potassium Chloride Carbon Dioxide POC BUN 7 L BUN Creatinine Glucose POC Glucose 263 H 231 H Calcium Magnesium AST Alkaline Phosphatase Total Protein Albumin Urine WBC (Auto) Crossmatch 06/16/16 06/16/16 06/16/16 20:10 20:18 21:10 WBC RBC Hgb POC Hgb Hct POC Hct MCH MCHC RDW Plt Count Lymph % (Auto) [place] % (Auto) Lymph # [place] # Baso # Seg Neutrophils % Seg Neuts % (Manual) Lymphocytes % (Manual) Monocytes % (Manual) Nucleated RBC % Seg Neutrophils # Seg Neutrophils # Man Lymphocytes # (Manual) Monocytes # (Manual) PT INR APTT Fibrinogen Heparin Anti-Xa Level POC ABG pH 7.236 L 7.280 L POC ABG pCO2 POC ABG pO2 139 H 145 H POC Potassium POC Chloride Sodium Potassium 3.4 L Chloride 114.5 H Carbon Dioxide 17 L D POC BUN BUN Creatinine Glucose 188 H POC Glucose Calcium 6.1 L D Magnesium AST Alkaline Phosphatase Total Protein Albumin Urine WBC (Auto) Crossmatch 06/16/16 06/17/16 06/17/16 22:53 04:48 05:35 WBC RBC Hgb POC Hgb Hct POC Hct MCH MCHC RDW Plt Count Lymph % (Auto) [place] % (Auto) Lymph # [place] # Baso # Seg Neutrophils % Seg Neuts % (Manual) Lymphocytes % (Manual) Monocytes % (Manual) Nucleated RBC % Seg Neutrophils # Seg Neutrophils # Man Lymphocytes # (Manual) Monocytes # (Manual) PT INR APTT Fibrinogen Heparin Anti-Xa Level POC ABG pH POC ABG pCO2 33.9 L 22.2 L POC ABG pO2 152 H 154 H POC Potassium POC Chloride Sodium 150 H Potassium 3.4 L Chloride 114.2 H Carbon Dioxide 16 L POC BUN BUN Creatinine Glucose 221 H POC Glucose Calcium 7.6 L D Magnesium AST Alkaline Phosphatase Total Protein Albumin Urine WBC (Auto) Crossmatch 06/17/16 06/18/16 06/18/16 09:22 07:26 08:25 WBC 20.3 H RBC 3.41 L Hgb 9.9 L POC Hgb Hct 29.7 L POC Hct MCH MCHC RDW Plt Count Lymph % (Auto) [place] % (Auto) Lymph # [place] # Baso # Seg Neutrophils % Seg Neuts % (Manual) 81.0 H Lymphocytes % (Manual) 6.0 L Monocytes % (Manual) 12.0 H Nucleated RBC % Seg Neutrophils # Seg Neutrophils # Man 16.4 H Lymphocytes # (Manual) Monocytes # (Manual) 2.4 H PT INR APTT Fibrinogen Heparin Anti-Xa Level POC ABG pH POC ABG pCO2 POC ABG pO2 POC Potassium POC Chloride Sodium Potassium 3.1 L Chloride Carbon Dioxide POC BUN BUN Creatinine Glucose 136 H POC Glucose 141 H Calcium 7.5 L Magnesium AST Alkaline Phosphatase Total Protein Albumin Urine WBC (Auto) Crossmatch 06/18/16 06/18/16 06/18/16 08:25 11:09 19:40 WBC RBC Hgb 6.5 L D POC Hgb Hct 19.3 L* D POC Hct MCH MCHC RDW Plt Count 131 L Lymph % (Auto) [place] % (Auto) Lymph # [place] # Baso # Seg Neutrophils % Seg Neuts % (Manual) Lymphocytes % (Manual) Monocytes % (Manual) Nucleated RBC % Seg Neutrophils # Seg Neutrophils # Man Lymphocytes # (Manual) Monocytes # (Manual) PT INR APTT Fibrinogen Heparin Anti-Xa Level POC ABG pH 7.490 H POC ABG pCO2 POC ABG pO2 131 H POC Potassium POC Chloride Sodium Potassium Chloride Carbon Dioxide POC BUN BUN Creatinine Glucose POC Glucose 125 H Calcium Magnesium AST Alkaline Phosphatase Total Protein Albumin Urine WBC (Auto) Crossmatch 06/18/16 06/19/16 06/19/16 21:10 07:07 07:28 WBC 13.6 H RBC 2.17 L Hgb 6.5 L POC Hgb Hct 18.8 L* POC Hct MCH MCHC 35 H RDW Plt Count 131 L Lymph % (Auto) 10.1 L [place] % (Auto) 9.3 H Lymph # [place] # 1.3 H Baso # Seg Neutrophils % 79.7 H Seg Neuts % (Manual) Lymphocytes % (Manual) Monocytes % (Manual) Nucleated RBC % Seg Neutrophils # 10.8 H Seg Neutrophils # Man Lymphocytes # (Manual) Monocytes # (Manual) PT INR APTT Fibrinogen Heparin Anti-Xa Level 0.75 H POC ABG pH POC ABG pCO2 POC ABG pO2 POC Potassium POC Chloride Sodium Potassium 3.5 L Chloride Carbon Dioxide POC BUN BUN Creatinine Glucose 104 H POC Glucose Calcium 7.6 L Magnesium 1.4 L AST Alkaline Phosphatase Total Protein Albumin Urine WBC (Auto) Crossmatch 06/20/16 06/20/16 06/20/16 04:15 18:15 18:15 WBC 16.6 H RBC 1.19 L Hgb 9.2 L 3.5 L* D POC Hgb Hct 27.5 L D 11.0 L* D POC Hct MCH MCHC RDW Plt Count 138 L Lymph % (Auto) [place] % (Auto) Lymph # [place] # Baso # Seg Neutrophils % Seg Neuts % (Manual) Lymphocytes % (Manual) Monocytes % (Manual) Nucleated RBC % Seg Neutrophils # Seg Neutrophils # Man Lymphocytes # (Manual) Monocytes # (Manual) PT INR APTT Fibrinogen Heparin Anti-Xa Level POC ABG pH POC ABG pCO2 POC ABG pO2 POC Potassium POC Chloride Sodium 146 H Potassium Chloride Carbon Dioxide 14 L D POC BUN BUN Creatinine Glucose 31 L* POC Glucose Calcium 6.7 L Magnesium AST Alkaline Phosphatase Total Protein Albumin Urine WBC (Auto) Crossmatch 06/20/16 06/20/16 06/20/16 18:15 19:33 19:36 WBC RBC Hgb POC Hgb Hct POC Hct MCH MCHC RDW Plt Count Lymph % (Auto) [place] % (Auto) Lymph # [place] # Baso # Seg Neutrophils % Seg Neuts % (Manual) Lymphocytes % (Manual) Monocytes % (Manual) Nucleated RBC % Seg Neutrophils # Seg Neutrophils # Man Lymphocytes # (Manual) Monocytes # (Manual) PT INR APTT Fibrinogen Heparin Anti-Xa Level POC ABG pH POC ABG pCO2 26.3 L POC ABG pO2 394 H POC Potassium POC Chloride Sodium Potassium Chloride Carbon Dioxide POC BUN BUN Creatinine Glucose POC Glucose 212 H Calcium Magnesium AST Alkaline Phosphatase Total Protein Albumin Urine WBC (Auto) Crossmatch See Detail 06/20/16 06/20/16 06/21/16 22:01 23:00 00:35 WBC RBC Hgb POC Hgb Hct POC Hct MCH MCHC RDW Plt Count Lymph % (Auto) [place] % (Auto) Lymph # [place] # Baso # Seg Neutrophils % Seg Neuts % (Manual) Lymphocytes % (Manual) Monocytes % (Manual) Nucleated RBC % Seg Neutrophils # Seg Neutrophils # Man Lymphocytes # (Manual) Monocytes # (Manual) PT 21.3 H INR 1.85 H APTT 48.4 H Fibrinogen Heparin Anti-Xa Level POC ABG pH POC ABG pCO2 POC ABG pO2 POC Potassium POC Chloride Sodium Potassium Chloride Carbon Dioxide POC BUN BUN Creatinine Glucose POC Glucose 149 H 147 H Calcium Magnesium AST Alkaline Phosphatase Total Protein Albumin Urine WBC (Auto) Crossmatch 06/21/16 06/21/16 06/21/16 04:30 04:30 06:01 WBC 21.7 H RBC 3.58 L Hgb POC Hgb Hct POC Hct MCH MCHC 35 H RDW Plt Count 116 L Lymph % (Auto) [place] % (Auto) Lymph # [place] # Baso # Seg Neutrophils % Seg Neuts % (Manual) Lymphocytes % (Manual) 8.0 L Monocytes % (Manual) Nucleated RBC % 3.0 H Seg Neutrophils # Seg Neutrophils # Man 13.7 H Lymphocytes # (Manual) Monocytes # (Manual) 1.5 H PT INR APTT Fibrinogen Heparin Anti-Xa Level POC ABG pH 7.541 H POC ABG pCO2 21.1 L POC ABG pO2 108 H POC Potassium POC Chloride Sodium Potassium 3.0 L Chloride 110.3 H Carbon Dioxide 18 L POC BUN BUN 18 H Creatinine Glucose 141 H POC Glucose Calcium 6.4 L Magnesium AST Alkaline Phosphatase Total Protein Albumin Urine WBC (Auto) Crossmatch 06/21/16 06/21/16 06/21/16 07:00 10:02 17:51 WBC RBC Hgb 8.3 L POC Hgb Hct 24.7 L D POC Hct MCH MCHC RDW Plt Count Lymph % (Auto) [place] % (Auto) Lymph # [place] # Baso # Seg Neutrophils % Seg Neuts % (Manual) Lymphocytes % (Manual) Monocytes % (Manual) Nucleated RBC % Seg Neutrophils # Seg Neutrophils # Man Lymphocytes # (Manual) Monocytes # (Manual) PT INR APTT Fibrinogen Heparin Anti-Xa Level POC ABG pH POC ABG pCO2 POC ABG pO2 POC Potassium POC Chloride Sodium Potassium Chloride Carbon Dioxide POC BUN BUN Creatinine Glucose POC Glucose 132 H 106 H Calcium Magnesium AST Alkaline Phosphatase Total Protein Albumin Urine WBC (Auto) Crossmatch 06/22/16 06/22/16 06/22/16 05:00 05:00 06:40 WBC 20.6 H RBC 3.54 L Hgb POC Hgb Hct POC Hct MCH MCHC RDW Plt Count 129 L Lymph % (Auto) [place] % (Auto) Lymph # [place] # Baso # Seg Neutrophils % Seg Neuts % (Manual) 87.0 H Lymphocytes % (Manual) 4.0 L Monocytes % (Manual) Nucleated RBC % 4.0 H Seg Neutrophils # Seg Neutrophils # Man 17.9 H Lymphocytes # (Manual) 0.8 L Monocytes # (Manual) 1.2 H PT INR APTT Fibrinogen Heparin Anti-Xa Level POC ABG pH POC ABG pCO2 21.9 L POC ABG pO2 118 H POC Potassium POC Chloride Sodium Potassium Chloride 109.9 H Carbon Dioxide 15 L POC BUN BUN 26 H Creatinine 2.2 H D Glucose POC Glucose Calcium 6.3 L Magnesium AST Alkaline Phosphatase Total Protein Albumin Urine WBC (Auto) Crossmatch 06/22/16 06/22/16 06/22/16 09:15 09:15 23:17 WBC RBC Hgb 9.1 L POC Hgb Hct 26.9 L POC Hct MCH MCHC RDW Plt Count 116 L Lymph % (Auto) [place] % (Auto) Lymph # [place] # Baso # Seg Neutrophils % Seg Neuts % (Manual) Lymphocytes % (Manual) Monocytes % (Manual) Nucleated RBC % Seg Neutrophils # Seg Neutrophils # Man Lymphocytes # (Manual) Monocytes # (Manual) PT 15.8 H INR 1.27 H APTT Fibrinogen Heparin Anti-Xa Level POC ABG pH POC ABG pCO2 POC ABG pO2 POC Potassium POC Chloride Sodium Potassium Chloride Carbon Dioxide POC BUN BUN Creatinine Glucose POC Glucose 134 H Calcium Magnesium AST Alkaline Phosphatase Total Protein Albumin Urine WBC (Auto) Crossmatch 06/23/16 06/23/16 06/23/16 05:43 05:43 09:44 WBC 13.8 H RBC 2.70 L Hgb 8.1 L POC Hgb Hct 24.2 L POC Hct MCH MCHC RDW Plt Count 93 L Lymph % (Auto) 6.2 L [place] % (Auto) Lymph # 0.9 L [place] # Baso # Seg Neutrophils % 89.2 H Seg Neuts % (Manual) Lymphocytes % (Manual) Monocytes % (Manual) Nucleated RBC % Seg Neutrophils # 12.3 H Seg Neutrophils # Man Lymphocytes # (Manual) Monocytes # (Manual) PT INR APTT Fibrinogen Heparin Anti-Xa Level POC ABG pH 7.593 H POC ABG pCO2 26.8 L POC ABG pO2 141 H POC Potassium POC Chloride Sodium 146 H Potassium Chloride Carbon Dioxide POC BUN BUN 32 H Creatinine 2.6 H Glucose 142 H POC Glucose Calcium 7.0 L Magnesium AST Alkaline Phosphatase Total Protein Albumin Urine WBC (Auto) Crossmatch 06/23/16 06/23/16 06/23/16 11:23 17:42 23:32 WBC RBC Hgb POC Hgb Hct POC Hct MCH MCHC RDW Plt Count Lymph % (Auto) [place] % (Auto) Lymph # [place] # Baso # Seg Neutrophils % Seg Neuts % (Manual) Lymphocytes % (Manual) Monocytes % (Manual) Nucleated RBC % Seg Neutrophils # Seg Neutrophils # Man Lymphocytes # (Manual) Monocytes # (Manual) PT INR APTT Fibrinogen Heparin Anti-Xa Level POC ABG pH POC ABG pCO2 POC ABG pO2 POC Potassium POC Chloride Sodium Potassium Chloride Carbon Dioxide POC BUN BUN Creatinine Glucose POC Glucose 138 H 133 H 111 H Calcium Magnesium AST Alkaline Phosphatase Total Protein Albumin Urine WBC (Auto) Crossmatch 06/24/16 06/24/16 06/24/16 06:27 08:10 08:10 WBC 16.6 H RBC 2.91 L Hgb 8.9 L POC Hgb Hct 26.4 L POC Hct MCH MCHC RDW 15.6 H Plt Count 115 L Lymph % (Auto) 4.6 L [place] % (Auto) Lymph # 0.8 L [place] # 1.0 H Baso # Seg Neutrophils % 89.2 H Seg Neuts % (Manual) Lymphocytes % (Manual) Monocytes % (Manual) Nucleated RBC % Seg Neutrophils # 14.9 H Seg Neutrophils # Man Lymphocytes # (Manual) Monocytes # (Manual) PT INR APTT Fibrinogen Heparin Anti-Xa Level POC ABG pH POC ABG pCO2 POC ABG pO2 POC Potassium POC Chloride Sodium 146 H Potassium Chloride Carbon Dioxide POC BUN BUN 37 H Creatinine 2.9 H Glucose POC Glucose 109 H Calcium 7.5 L Magnesium AST Alkaline Phosphatase Total Protein Albumin Urine WBC (Auto) Crossmatch 06/24/16 06/24/16 06/24/16 12:05 17:57 22:13 WBC RBC Hgb POC Hgb Hct POC Hct MCH MCHC RDW Plt Count Lymph % (Auto) [place] % (Auto) Lymph # [place] # Baso # Seg Neutrophils % Seg Neuts % (Manual) Lymphocytes % (Manual) Monocytes % (Manual) Nucleated RBC % Seg Neutrophils # Seg Neutrophils # Man Lymphocytes # (Manual) Monocytes # (Manual) PT INR APTT Fibrinogen Heparin Anti-Xa Level POC ABG pH POC ABG pCO2 POC ABG pO2 POC Potassium POC Chloride Sodium Potassium Chloride Carbon Dioxide POC BUN BUN Creatinine Glucose POC Glucose 117 H 124 H 116 H Calcium Magnesium AST Alkaline Phosphatase Total Protein Albumin Urine WBC (Auto) Crossmatch 06/25/16 06/25/16 06/25/16 06:42 06:49 12:14 WBC RBC Hgb POC Hgb Hct POC Hct MCH MCHC RDW Plt Count Lymph % (Auto) [place] % (Auto) Lymph # [place] # Baso # Seg Neutrophils % Seg Neuts % (Manual) Lymphocytes % (Manual) Monocytes % (Manual) Nucleated RBC % Seg Neutrophils # Seg Neutrophils # Man Lymphocytes # (Manual) Monocytes # (Manual) PT INR APTT Fibrinogen Heparin Anti-Xa Level POC ABG pH POC ABG pCO2 POC ABG pO2 POC Potassium POC Chloride Sodium Potassium Chloride Carbon Dioxide POC BUN BUN 46 H Creatinine 3.6 H Glucose 133 H POC Glucose 137 H 136 H Calcium 7.4 L Magnesium AST Alkaline Phosphatase Total Protein Albumin Urine WBC (Auto) Crossmatch 06/25/16 06/25/16 06/26/16 16:07 21:32 05:55 WBC RBC Hgb POC Hgb Hct POC Hct MCH MCHC RDW Plt Count Lymph % (Auto) [place] % (Auto) Lymph # [place] # Baso # Seg Neutrophils % Seg Neuts % (Manual) Lymphocytes % (Manual) Monocytes % (Manual) Nucleated RBC % Seg Neutrophils # Seg Neutrophils # Man Lymphocytes # (Manual) Monocytes # (Manual) PT INR APTT Fibrinogen Heparin Anti-Xa Level POC ABG pH POC ABG pCO2 POC ABG pO2 POC Potassium POC Chloride Sodium Potassium Chloride Carbon Dioxide 20 L POC BUN BUN 55 H Creatinine 4.2 H Glucose 120 H POC Glucose 146 H 146 H Calcium 7.5 L Magnesium AST Alkaline Phosphatase Total Protein Albumin Urine WBC (Auto) Crossmatch 06/26/16 06/26/16 06/26/16 06:30 11:38 16:45 WBC RBC Hgb POC Hgb Hct POC Hct MCH MCHC RDW Plt Count Lymph % (Auto) [place] % (Auto) Lymph # [place] # Baso # Seg Neutrophils % Seg Neuts % (Manual) Lymphocytes % (Manual) Monocytes % (Manual) Nucleated RBC % Seg Neutrophils # Seg Neutrophils # Man Lymphocytes # (Manual) Monocytes # (Manual) PT INR APTT Fibrinogen Heparin Anti-Xa Level POC ABG pH POC ABG pCO2 POC ABG pO2 POC Potassium POC Chloride Sodium Potassium Chloride Carbon Dioxide POC BUN BUN Creatinine Glucose POC Glucose 128 H 143 H 121 H Calcium Magnesium AST Alkaline Phosphatase Total Protein Albumin Urine WBC (Auto) Crossmatch 06/26/16 06/26/16 06/27/16 22:57 22:57 00:47 WBC RBC Hgb 8.4 L POC Hgb Hct 25.1 L POC Hct MCH MCHC RDW Plt Count Lymph % (Auto) [place] % (Auto) Lymph # [place] # Baso # Seg Neutrophils % Seg Neuts % (Manual) Lymphocytes % (Manual) Monocytes % (Manual) Nucleated RBC % Seg Neutrophils # Seg Neutrophils # Man Lymphocytes # (Manual) Monocytes # (Manual) PT 19.9 H INR 1.69 H APTT Fibrinogen Heparin Anti-Xa Level POC ABG pH POC ABG pCO2 POC ABG pO2 POC Potassium POC Chloride Sodium Potassium Chloride Carbon Dioxide POC BUN BUN Creatinine Glucose POC Glucose 110 H Calcium Magnesium AST Alkaline Phosphatase Total Protein Albumin Urine WBC (Auto) Crossmatch 06/27/16 06/27/16 06/27/16 05:43 05:43 06:40 WBC RBC Hgb POC Hgb Hct POC Hct MCH MCHC RDW Plt Count Lymph % (Auto) [place] % (Auto) Lymph # [place] # Baso # Seg Neutrophils % Seg Neuts % (Manual) Lymphocytes % (Manual) Monocytes % (Manual) Nucleated RBC % Seg Neutrophils # Seg Neutrophils # Man Lymphocytes # (Manual) Monocytes # (Manual) PT INR APTT Fibrinogen Heparin Anti-Xa Level 2.00 H POC ABG pH POC ABG pCO2 POC ABG pO2 POC Potassium POC Chloride Sodium Potassium Chloride Carbon Dioxide 20 L POC BUN BUN 58 H Creatinine 4.8 H Glucose POC Glucose 109 H Calcium 8.1 L Magnesium AST Alkaline Phosphatase Total Protein Albumin Urine WBC (Auto) Crossmatch 06/27/16 06/27/16 06/27/16 08:15 16:46 17:47 WBC RBC Hgb POC Hgb Hct POC Hct MCH MCHC RDW Plt Count Lymph % (Auto) [place] % (Auto) Lymph # [place] # Baso # Seg Neutrophils % Seg Neuts % (Manual) Lymphocytes % (Manual) Monocytes % (Manual) Nucleated RBC % Seg Neutrophils # Seg Neutrophils # Man Lymphocytes # (Manual) Monocytes # (Manual) PT INR APTT Fibrinogen Heparin Anti-Xa Level > 2.00 H 1.87 H POC ABG pH POC ABG pCO2 POC ABG pO2 POC Potassium POC Chloride Sodium Potassium Chloride Carbon Dioxide POC BUN BUN Creatinine Glucose POC Glucose 231 H Calcium Magnesium AST Alkaline Phosphatase Total Protein Albumin Urine WBC (Auto) Crossmatch 06/27/16 06/27/16 06/28/16 21:23 23:54 06:27 WBC RBC Hgb POC Hgb Hct POC Hct MCH MCHC RDW Plt Count Lymph % (Auto) [place] % (Auto) Lymph # [place] # Baso # Seg Neutrophils % Seg Neuts % (Manual) Lymphocytes % (Manual) Monocytes % (Manual) Nucleated RBC % Seg Neutrophils # Seg Neutrophils # Man Lymphocytes # (Manual) Monocytes # (Manual) PT INR APTT Fibrinogen Heparin Anti-Xa Level 1.70 H POC ABG pH POC ABG pCO2 POC ABG pO2 POC Potassium POC Chloride Sodium Potassium Chloride Carbon Dioxide POC BUN BUN 62 H Creatinine 4.5 H Glucose 111 H POC Glucose 122 H Calcium 8.3 L Magnesium AST Alkaline Phosphatase Total Protein Albumin Urine WBC (Auto) Crossmatch 06/28/16 06/28/16 06/28/16 06:27 11:47 14:14 WBC RBC Hgb 7.7 L POC Hgb Hct 22.9 L POC Hct MCH MCHC RDW Plt Count Lymph % (Auto) [place] % (Auto) Lymph # [place] # Baso # Seg Neutrophils % Seg Neuts % (Manual) Lymphocytes % (Manual) Monocytes % (Manual) Nucleated RBC % Seg Neutrophils # Seg Neutrophils # Man Lymphocytes # (Manual) Monocytes # (Manual) PT INR APTT Fibrinogen Heparin Anti-Xa Level POC ABG pH 7.461 H POC ABG pCO2 31.9 L POC ABG pO2 73 L POC Potassium POC Chloride Sodium Potassium Chloride Carbon Dioxide POC BUN BUN Creatinine Glucose POC Glucose 155 H Calcium Magnesium AST Alkaline Phosphatase Total Protein Albumin Urine WBC (Auto) Crossmatch 06/28/16 06/28/16 06/28/16 16:27 20:47 22:59 WBC RBC Hgb POC Hgb Hct POC Hct MCH MCHC RDW Plt Count Lymph % (Auto) [place] % (Auto) Lymph # [place] # Baso # Seg Neutrophils % Seg Neuts % (Manual) Lymphocytes % (Manual) Monocytes % (Manual) Nucleated RBC % Seg Neutrophils # Seg Neutrophils # Man Lymphocytes # (Manual) Monocytes # (Manual) PT INR APTT Fibrinogen Heparin Anti-Xa Level 1.16 H POC ABG pH POC ABG pCO2 POC ABG pO2 POC Potassium POC Chloride Sodium Potassium Chloride Carbon Dioxide POC BUN BUN Creatinine Glucose POC Glucose 193 H 126 H Calcium Magnesium AST Alkaline Phosphatase Total Protein Albumin Urine WBC (Auto) Crossmatch 06/29/16 06/29/16 06/29/16 05:51 09:10 09:10 WBC RBC Hgb POC Hgb Hct POC Hct MCH MCHC RDW Plt Count Lymph % (Auto) [place] % (Auto) Lymph # [place] # Baso # Seg Neutrophils % Seg Neuts % (Manual) Lymphocytes % (Manual) Monocytes % (Manual) Nucleated RBC % Seg Neutrophils # Seg Neutrophils # Man Lymphocytes # (Manual) Monocytes # (Manual) PT INR APTT Fibrinogen Heparin Anti-Xa Level 0.92 H POC ABG pH POC ABG pCO2 POC ABG pO2 POC Potassium POC Chloride Sodium Potassium Chloride Carbon Dioxide POC BUN BUN 53 H Creatinine 3.7 H Glucose 139 H POC Glucose 121 H Calcium 8.2 L Magnesium AST Alkaline Phosphatase Total Protein Albumin Urine WBC (Auto) Crossmatch 06/29/16 06/30/16 06/30/16 21:22 05:09 08:07 WBC RBC Hgb 7.3 L POC Hgb Hct 21.9 L POC Hct MCH MCHC RDW Plt Count Lymph % (Auto) [place] % (Auto) Lymph # [place] # Baso # Seg Neutrophils % Seg Neuts % (Manual) Lymphocytes % (Manual) Monocytes % (Manual) Nucleated RBC % Seg Neutrophils # Seg Neutrophils # Man Lymphocytes # (Manual) Monocytes # (Manual) PT INR APTT Fibrinogen Heparin Anti-Xa Level POC ABG pH POC ABG pCO2 POC ABG pO2 POC Potassium POC Chloride Sodium Potassium Chloride Carbon Dioxide POC BUN BUN Creatinine Glucose POC Glucose 108 H 106 H Calcium Magnesium AST Alkaline Phosphatase Total Protein Albumin Urine WBC (Auto) Crossmatch 06/30/16 06/30/16 06/30/16 10:48 12:13 16:48 WBC RBC Hgb POC Hgb Hct POC Hct MCH MCHC RDW Plt Count Lymph % (Auto) [place] % (Auto) Lymph # [place] # Baso # Seg Neutrophils % Seg Neuts % (Manual) Lymphocytes % (Manual) Monocytes % (Manual) Nucleated RBC % Seg Neutrophils # Seg Neutrophils # Man Lymphocytes # (Manual) Monocytes # (Manual) PT INR APTT Fibrinogen Heparin Anti-Xa Level POC ABG pH POC ABG pCO2 POC ABG pO2 POC Potassium POC Chloride Sodium Potassium Chloride Carbon Dioxide POC BUN BUN 46 H Creatinine 3.0 H Glucose POC Glucose 153 H 152 H Calcium Magnesium AST Alkaline Phosphatase Total Protein Albumin Urine WBC (Auto) Crossmatch 06/30/16 07/01/16 07/01/16 21:47 05:47 07:44 WBC 19.8 H RBC 2.45 L Hgb 7.2 L POC Hgb Hct 22.2 L POC Hct MCH MCHC RDW Plt Count 481 H Lymph % (Auto) 5.5 L [place] % (Auto) Lymph # 1.1 L [place] # 1.4 H Baso # Seg Neutrophils % 86.8 H Seg Neuts % (Manual) Lymphocytes % (Manual) Monocytes % (Manual) Nucleated RBC % Seg Neutrophils # 17.1 H Seg Neutrophils # Man Lymphocytes # (Manual) Monocytes # (Manual) PT INR APTT Fibrinogen Heparin Anti-Xa Level POC ABG pH POC ABG pCO2 POC ABG pO2 POC Potassium POC Chloride Sodium Potassium Chloride Carbon Dioxide POC BUN BUN Creatinine Glucose POC Glucose 162 H 124 H Calcium Magnesium AST Alkaline Phosphatase Total Protein Albumin Urine WBC (Auto) Crossmatch 07/01/16 07/01/16 07/01/16 07:44 11:55 16:16 WBC RBC Hgb POC Hgb Hct POC Hct MCH MCHC RDW Plt Count Lymph % (Auto) [place] % (Auto) Lymph # [place] # Baso # Seg Neutrophils % Seg Neuts % (Manual) Lymphocytes % (Manual) Monocytes % (Manual) Nucleated RBC % Seg Neutrophils # Seg Neutrophils # Man Lymphocytes # (Manual) Monocytes # (Manual) PT INR APTT Fibrinogen Heparin Anti-Xa Level POC ABG pH POC ABG pCO2 POC ABG pO2 POC Potassium POC Chloride Sodium Potassium 3.1 L Chloride Carbon Dioxide POC BUN BUN 38 H Creatinine 2.2 H Glucose 114 H POC Glucose 114 H 143 H Calcium Magnesium AST Alkaline Phosphatase Total Protein Albumin Urine WBC (Auto) Crossmatch 07/01/16 07/02/16 07/02/16 21:42 05:40 06:46 WBC 18.1 H RBC 2.45 L Hgb 7.3 L POC Hgb Hct 21.8 L POC Hct MCH MCHC RDW Plt Count 490 H Lymph % (Auto) 6.1 L [place] % (Auto) Lymph # 1.1 L [place] # 1.1 H Baso # 0.2 H Seg Neutrophils % 86.0 H Seg Neuts % (Manual) Lymphocytes % (Manual) Monocytes % (Manual) Nucleated RBC % Seg Neutrophils # 15.6 H Seg Neutrophils # Man Lymphocytes # (Manual) Monocytes # (Manual) PT INR APTT Fibrinogen Heparin Anti-Xa Level POC ABG pH POC ABG pCO2 POC ABG pO2 POC Potassium POC Chloride Sodium Potassium Chloride Carbon Dioxide POC BUN BUN Creatinine Glucose POC Glucose 135 H 135 H Calcium Magnesium AST Alkaline Phosphatase Total Protein Albumin Urine WBC (Auto) Crossmatch 07/02/16 07/02/16 07/02/16 06:46 06:49 11:23 WBC RBC Hgb POC Hgb Hct POC Hct MCH MCHC RDW Plt Count Lymph % (Auto) [place] % (Auto) Lymph # [place] # Baso # Seg Neutrophils % Seg Neuts % (Manual) Lymphocytes % (Manual) Monocytes % (Manual) Nucleated RBC % Seg Neutrophils # Seg Neutrophils # Man Lymphocytes # (Manual) Monocytes # (Manual) PT INR APTT Fibrinogen Heparin Anti-Xa Level POC ABG pH POC ABG pCO2 POC ABG pO2 POC Potassium POC Chloride Sodium Potassium 2.8 L* Chloride Carbon Dioxide POC BUN BUN 30 H Creatinine 1.8 H Glucose 121 H POC Glucose 121 H Calcium 8.1 L Magnesium 1.3 L AST Alkaline Phosphatase Total Protein Albumin Urine WBC (Auto) Crossmatch 07/02/16 07/02/1607/03/16 17:02 21:31 05:35 WBC RBC Hgb POC Hgb Hct POC Hct MCH MCHC RDW Plt Count Lymph % (Auto) [place] % (Auto) Lymph # [place] # Baso # Seg Neutrophils % Seg Neuts % (Manual) Lymphocytes % (Manual) Monocytes % (Manual) Nucleated RBC % Seg Neutrophils # Seg Neutrophils # Man Lymphocytes # (Manual) Monocytes # (Manual) PT INR APTT Fibrinogen Heparin Anti-Xa Level POC ABG pH POC ABG pCO2 POC ABG pO2 POC Potassium POC Chloride Sodium Potassium Chloride Carbon Dioxide POC BUN BUN Creatinine Glucose POC Glucose 121 H 159 H 149 H Calcium Magnesium AST Alkaline Phosphatase Total Protein Albumin Urine WBC (Auto) Crossmatch 07/03/16 07/03/16 07/03/16 06:45 06:45 06:45 WBC 16.8 H RBC 2.21 L Hgb 6.5 L POC Hgb Hct 19.4 L* POC Hct MCH MCHC RDW Plt Count 503 H Lymph % (Auto) 6.4 L [place] % (Auto) Lymph # 1.1 L [place] # 1.1 H Baso # Seg Neutrophils % 85.6 H Seg Neuts % (Manual) Lymphocytes % (Manual) Monocytes % (Manual) Nucleated RBC % Seg Neutrophils # 14.4 H Seg Neutrophils # Man Lymphocytes # (Manual) Monocytes # (Manual) PT INR APTT Fibrinogen Heparin Anti-Xa Level POC ABG pH POC ABG pCO2 POC ABG pO2 POC Potassium POC Chloride Sodium Potassium 2.9 L* Chloride Carbon Dioxide POC BUN BUN 21 H Creatinine 1.6 H Glucose 126 H POC Glucose Calcium 8.0 L Magnesium 1.6 L AST Alkaline Phosphatase Total Protein Albumin Urine WBC (Auto) Crossmatch 07/03/16 07/03/16 07/03/16 12:54 19:00 20:01 WBC RBC Hgb POC Hgb Hct POC Hct MCH MCHC RDW Plt Count Lymph % (Auto) [place] % (Auto) Lymph # [place] # Baso # Seg Neutrophils % Seg Neuts % (Manual) Lymphocytes % (Manual) Monocytes % (Manual) Nucleated RBC % Seg Neutrophils # Seg Neutrophils # Man Lymphocytes # (Manual) Monocytes # (Manual) PT INR APTT Fibrinogen Heparin Anti-Xa Level POC ABG pH 7.302 L POC ABG pCO2 49.8 H POC ABG pO2 422 H POC Potassium POC Chloride Sodium Potassium Chloride Carbon Dioxide POC BUN BUN Creatinine Glucose POC Glucose 129 H Calcium Magnesium AST Alkaline Phosphatase Total Protein Albumin Urine WBC (Auto) Crossmatch See Detail 07/03/16 07/04/16 07/04/16 23:09 04:30 04:30 WBC 19.6 H RBC 3.21 L Hgb 9.4 L POC Hgb Hct 28.2 L POC Hct MCH MCHC RDW Plt Count Lymph % (Auto) 6.5 L [place] % (Auto) Lymph # [place] # 1.2 H Baso # Seg Neutrophils % 86.4 H Seg Neuts % (Manual) Lymphocytes % (Manual) Monocytes % (Manual) Nucleated RBC % Seg Neutrophils # 16.9 H Seg Neutrophils # Man Lymphocytes # (Manual) Monocytes # (Manual) PT INR APTT Fibrinogen Heparin Anti-Xa Level POC ABG pH POC ABG pCO2 POC ABG pO2 POC Potassium POC Chloride Sodium Potassium 3.5 L D Chloride 111.2 H Carbon Dioxide 20 L POC BUN BUN 18 H Creatinine Glucose POC Glucose 111 H Calcium 7.0 L Magnesium AST Alkaline Phosphatase Total Protein Albumin Urine WBC (Auto) Crossmatch 07/04/16 07/04/16 07/04/16 05:44 12:50 14:33 WBC RBC Hgb POC Hgb Hct POC Hct MCH MCHC RDW Plt Count Lymph % (Auto) [place] % (Auto) Lymph # [place] # Baso # Seg Neutrophils % Seg Neuts % (Manual) Lymphocytes % (Manual) Monocytes % (Manual) Nucleated RBC % Seg Neutrophils # Seg Neutrophils # Man Lymphocytes # (Manual) Monocytes # (Manual) PT INR APTT Fibrinogen Heparin Anti-Xa Level POC ABG pH 7.465 H 7.468 H POC ABG pCO2 29.5 L 29.1 L 33.1 L POC ABG pO2 110 H 39 L POC Potassium POC Chloride Sodium Potassium Chloride Carbon Dioxide POC BUN BUN Creatinine Glucose POC Glucose Calcium Magnesium AST Alkaline Phosphatase Total Protein Albumin Urine WBC (Auto) Crossmatch 07/04/16 07/05/16 07/05/16 16:49 00:20 04:19 WBC 16.2 H RBC 3.44 L Hgb POC Hgb Hct POC Hct MCH MCHC RDW Plt Count Lymph % (Auto) 5.2 L [place] % (Auto) 7.5 H Lymph # 0.8 L [place] # 1.2 H Baso # Seg Neutrophils % 86.5 H Seg Neuts % (Manual) Lymphocytes % (Manual) Monocytes % (Manual) Nucleated RBC % Seg Neutrophils # 14.0 H Seg Neutrophils # Man Lymphocytes # (Manual) Monocytes # (Manual) PT INR APTT Fibrinogen Heparin Anti-Xa Level POC ABG pH POC ABG pCO2 31.1 L POC ABG pO2 110 H POC Potassium POC Chloride Sodium Potassium Chloride Carbon Dioxide POC BUN BUN Creatinine Glucose POC Glucose 168 H Calcium Magnesium AST Alkaline Phosphatase Total Protein Albumin Urine WBC (Auto) Crossmatch 07/05/16 07/05/16 07/05/16 04:19 06:01 09:54 WBC RBC Hgb POC Hgb Hct POC Hct MCH MCHC RDW Plt Count Lymph % (Auto) [place] % (Auto) Lymph # [place] # Baso # Seg Neutrophils % Seg Neuts % (Manual) Lymphocytes % (Manual) Monocytes % (Manual) Nucleated RBC % Seg Neutrophils # Seg Neutrophils # Man Lymphocytes # (Manual) Monocytes # (Manual) PT INR APTT Fibrinogen Heparin Anti-Xa Level POC ABG pH POC ABG pCO2 POC ABG pO2 POC Potassium POC Chloride Sodium 146 H Potassium 3.5 L Chloride 109.1 H Carbon Dioxide POC BUN BUN Creatinine Glucose 135 H POC Glucose 146 H 284 H Calcium 7.8 L Magnesium AST Alkaline Phosphatase Total Protein Albumin Urine WBC (Auto) Crossmatch 07/05/16 07/06/16 07/06/16 13:35 04:40 04:40 WBC 17.7 H RBC 3.32 L Hgb 9.8 L POC Hgb Hct 29.8 L POC Hct MCH MCHC RDW Plt Count Lymph % (Auto) [place] % (Auto) Lymph # [place] # Baso # Seg Neutrophils % Seg Neuts % (Manual) 85.0 H Lymphocytes % (Manual) 4.0 L Monocytes % (Manual) 10.0 H Nucleated RBC % Seg Neutrophils # Seg Neutrophils # Man 15.0 H Lymphocytes # (Manual) 0.7 L Monocytes # (Manual) 1.8 H PT INR APTT Fibrinogen Heparin Anti-Xa Level POC ABG pH POC ABG pCO2 POC ABG pO2 POC Potassium POC Chloride Sodium Potassium 3.5 L Chloride Carbon Dioxide 21 L POC BUN BUN Creatinine Glucose 108 H POC Glucose 130 H Calcium 7.8 L Magnesium AST Alkaline Phosphatase Total Protein Albumin Urine WBC (Auto) Crossmatch 07/06/16 07/06/16 07/06/16 07:46 11:49 15:31 WBC RBC Hgb POC Hgb Hct POC Hct MCH MCHC RDW Plt Count Lymph % (Auto) [place] % (Auto) Lymph # [place] # Baso # Seg Neutrophils % Seg Neuts % (Manual) Lymphocytes % (Manual) Monocytes % (Manual) Nucleated RBC % Seg Neutrophils # Seg Neutrophils # Man Lymphocytes # (Manual) Monocytes # (Manual) PT INR APTT Fibrinogen Heparin Anti-Xa Level POC ABG pH POC ABG pCO2 POC ABG pO2 POC Potassium POC Chloride Sodium Potassium Chloride Carbon Dioxide POC BUN BUN Creatinine Glucose POC Glucose 149 H 146 H 135 H Calcium Magnesium AST Alkaline Phosphatase Total Protein Albumin Urine WBC (Auto) Crossmatch 07/06/16 07/06/16 07/07/16 17:17 20:59 04:53 WBC 15.5 H RBC 3.55 L Hgb POC Hgb Hct POC Hct MCH MCHC RDW Plt Count Lymph % (Auto) 4.9 L [place] % (Auto) Lymph # 0.8 L [place] # 0.9 H Baso # Seg Neutrophils % 87.9 H Seg Neuts % (Manual) Lymphocytes % (Manual) Monocytes % (Manual) Nucleated RBC % Seg Neutrophils # 13.7 H Seg Neutrophils # Man Lymphocytes # (Manual) Monocytes # (Manual) PT INR APTT Fibrinogen Heparin Anti-Xa Level POC ABG pH POC ABG pCO2 POC ABG pO2 POC Potassium POC Chloride Sodium Potassium Chloride Carbon Dioxide POC BUN BUN Creatinine Glucose POC Glucose 140 H Calcium Magnesium AST Alkaline Phosphatase Total Protein Albumin Urine WBC (Auto) 67.0 H Crossmatch 07/07/16 07/07/16 07/07/16 04:53 06:13 07:15 WBC RBC Hgb POC Hgb Hct POC Hct MCH MCHC RDW Plt Count Lymph % (Auto) [place] % (Auto) Lymph # [place] # Baso # Seg Neutrophils % Seg Neuts % (Manual) Lymphocytes % (Manual) Monocytes % (Manual) Nucleated RBC % Seg Neutrophils # Seg Neutrophils # Man Lymphocytes # (Manual) Monocytes # (Manual) PT INR APTT Fibrinogen Heparin Anti-Xa Level POC ABG pH POC ABG pCO2 POC ABG pO2 POC Potassium POC Chloride Sodium Potassium 3.4 L Chloride Carbon Dioxide POC BUN BUN Creatinine Glucose 104 H POC Glucose 122 H 134 H Calcium 8.0 L Magnesium AST Alkaline Phosphatase Total Protein Albumin Urine WBC (Auto) Crossmatch 07/07/16 07/07/16 07/07/16 08:06 10:31 12:08 WBC RBC Hgb POC Hgb Hct POC Hct MCH MCHC RDW Plt Count Lymph % (Auto) [place] % (Auto) Lymph # [place] # Baso # Seg Neutrophils % Seg Neuts % (Manual) Lymphocytes % (Manual) Monocytes % (Manual) Nucleated RBC % Seg Neutrophils # Seg Neutrophils # Man Lymphocytes # (Manual) Monocytes # (Manual) PT INR APTT Fibrinogen Heparin Anti-Xa Level POC ABG pH POC ABG pCO2 POC ABG pO2 POC Potassium POC Chloride Sodium Potassium Chloride Carbon Dioxide POC BUN BUN Creatinine Glucose 111 H POC Glucose 145 H 159 H Calcium 7.9 L Magnesium AST 53 H Alkaline Phosphatase 164 H Total Protein 6.2 L Albumin 1.4 L Urine WBC (Auto) Crossmatch 07/07/16 07/07/16 07/07/16 13:57 16:44 23:31 WBC RBC Hgb 9.7 L POC Hgb Hct 30.1 L POC Hct MCH MCHC RDW Plt Count Lymph % (Auto) [place] % (Auto) Lymph # [place] # Baso # Seg Neutrophils % Seg Neuts % (Manual) Lymphocytes % (Manual) Monocytes % (Manual) Nucleated RBC % Seg Neutrophils # Seg Neutrophils # Man Lymphocytes # (Manual) Monocytes # (Manual) PT INR APTT Fibrinogen Heparin Anti-Xa Level POC ABG pH POC ABG pCO2 POC ABG pO2 POC Potassium POC Chloride Sodium Potassium Chloride Carbon Dioxide POC BUN BUN Creatinine Glucose POC Glucose 173 H 163 H Calcium Magnesium AST Alkaline Phosphatase Total Protein Albumin Urine WBC (Auto) Crossmatch 07/08/16 07:27 WBC RBC Hgb POC Hgb Hct POC Hct MCH MCHC RDW Plt Count Lymph % (Auto) [place] % (Auto) Lymph # [place] # Baso # Seg Neutrophils % Seg Neuts % (Manual) Lymphocytes % (Manual) Monocytes % (Manual) Nucleated RBC % Seg Neutrophils # Seg Neutrophils # Man Lymphocytes # (Manual) Monocytes # (Manual) PT INR APTT Fibrinogen Heparin Anti-Xa Level POC ABG pH POC ABG pCO2 POC ABG pO2 POC Potassium POC Chloride Sodium Potassium Chloride Carbon Dioxide POC BUN BUN Creatinine Glucose POC Glucose 149 H Calcium Magnesium AST Alkaline Phosphatase Total Protein Albumin Urine WBC (Auto) Crossmatch
[2016-07-08] MEDS: D5W/0.45% NACL/KCL 20 MEQ 1,000 ML IV SCH (11:44)
[2016-07-08] MEDS: PLAVIX PO SCH (11:46)
[2016-07-08] MEDS: THERMAZENE 50 GRAM TP SCH (11:46)
[2016-07-08] MEDS: BABY ASPIRIN PO SCH (11:46)
[2016-07-08] MEDS: K-DUR PO SCH (11:59)
[2016-07-08] MEDS: FERROUS SULFATE PO SCH (11:59)
[2016-07-08] MEDS: TENORMIN PO SCH (11:59)
[2016-07-08] MEDS: PROTONIX PO SCH (12:01)
[2016-07-08 13:26] LABS: Anion Gap 19 mmol/L; BUN/Creatinine Ratio 13.75; Blood Urea Nitrogen 11 mg/dL (7-17); Calcium 7.5 mg/dL (8.4-10.2); Carbon Dioxide 21 mmol/L (22-30); Chloride 106.6 mmol/L (98-107); Glucose 126 mg/dL (65-100); Potassium 3.9 mmol/L (3.6-5.0); Sodium 143 mmol/L (137-145)
--- NOTE | 2016-07-08 14:11 | Progress Note ---
Assessment and Plan Perfusion to the left leg is marginal to poor. I am concerned about the viability of that extremity and the potential for myoglobinuria and renal failure. Appropriate lab will be ordered to monitor and she will remain in the ICU for the time being. She appears at fairly high risk of limb loss, however at significantly increased risk of return to surgery at this time. Vascular dictation options available to her left leg are limited at best and probably nonexistent Subjective Date of service: 07/08/16 Principal diagnosis: Acute Hypoxemic Respiratory Failure; s/p cardiopulmonary arrest Interval history: Has no major complaints. States her left leg feels better. Still complained of some discomfort in her right leg Objective - Exam Narrative Exam: All incisions are stable. Wound VAC in place with good seal in the left groin. Right leg is warm but calf tender mid left leg is cool to the mid calf and nontender. Foot slightly numb. - Constitutional Vitals: Vital Signs - 12hr 07/08/16 07/08/16 07/08/16 03:00 03:50 04:00 Temperature Pulse Rate 100 H 100 H 104 H Pulse Rate [ Apical] Pulse Rate [ From Monitor] Respiratory 16 18 15 Rate Blood Pressure 128/70 128/70 133/77 O2 Sat by Pulse 100 Oximetry 07/08/16 07/08/16 07/08/16 04:08 05:00 06:00 Temperature Pulse Rate 102 H 108 H 108 H Pulse Rate [ Apical] Pulse Rate [ From Monitor] Respiratory 19 17 12 Rate Blood Pressure 133/77 129/76 130/89 O2 Sat by Pulse 100 100 Oximetry 07/08/16 07/08/16 07/08/16 06:50 07:00 07:20 Temperature Pulse Rate 111 H 109 H 109 H Pulse Rate [ Apical] Pulse Rate [ From Monitor] Respiratory 21 12 17 Rate Blood Pressure 130/89 138/82 138/82 O2 Sat by Pulse 99 100 98 Oximetry 07/08/16 07/08/16 07/08/16 08:00 08:30 08:45 Temperature 97.8 F Pulse Rate 103 H Pulse Rate [ 103 H Apical] Pulse Rate [ 103 H From Monitor] Respiratory 18 18 Rate Blood Pressure 123/69 123/69 O2 Sat by Pulse 100 100 100 Oximetry 07/08/16 07/08/16 07/08/16 09:00 09:54 10:00 Temperature Pulse Rate 111 H Pulse Rate [ 108 H Apical] Pulse Rate [ 108 H From Monitor] Respiratory 17 Rate Blood Pressure 132/64 132/64 128/68 O2 Sat by Pulse 100 100 100 Oximetry 07/08/16 07/08/16 07/08/16 11:00 11:59 12:00 Temperature Pulse Rate 106 H 113 H 113 H Pulse Rate [ Apical] Pulse Rate [ From Monitor] Respiratory 18 19 Rate Blood Pressure 111/65 111/65 127/64 O2 Sat by Pulse 100 Oximetry 07/08/16 07/08/16 07/08/16 12:07 12:29 13:00 Temperature Pulse Rate 111 H 110 H Pulse Rate [ 108 H Apical] Pulse Rate [ From Monitor] Respiratory 19 12 Rate Blood Pressure 127/64 142/80 O2 Sat by Pulse 100 Oximetry - Labs CBC & Chem 7: 07/07/16 13:57 07/08/16 12:50 Labs: Abnormal lab results 07/07/16 07/07/16 07/07/16 Range/Units 10:31 13:57 16:44 Hgb 9.7 L (10.1-14.3) gm/dl Hct 30.1 L (30.3-42.9) % Carbon Dioxide (22-30) mmol/L Glucose (65-100) mg/dL POC Glucose 145 H 173 H (70-105) Calcium (8.4-10.2) mg/dL 07/07/16 07/08/16 07/08/16 Range/Units 23:31 07:27 12:16 Hgb (10.1-14.3) gm/dl Hct (30.3-42.9) % Carbon Dioxide (22-30) mmol/L Glucose (65-100) mg/dL POC Glucose 163 H 149 H 150 H (70-105) Calcium (8.4-10.2) mg/dL 07/08/16 Range/Units 12:50 Hgb (10.1-14.3) gm/dl Hct (30.3-42.9) % Carbon Dioxide 21 L (22-30) mmol/L Glucose 126 H (65-100) mg/dL POC Glucose (70-105) Calcium 7.5 L (8.4-10.2) mg/dL
[2016-07-08] MEDS: MORPHINE PCA 30MG/30ML IV SCH ×2 (14:55→14:58)
[2016-07-08] MEDS: XOPENEX IH PRN (20:31)
[2016-07-09] MEDS: D5W/0.45% NACL/KCL 20 MEQ 1,000 ML IV SCH (00:05)
[2016-07-09] MEDS: TYLENOL PO PRN ×3 (04:30→19:59)
[2016-07-09] MEDS: ZOSYN/NS 4.5GM/100ML 100 ML IV SCH ×3 (04:30→21:51)
[2016-07-09] MEDS: MORPHINE PCA 30MG/30ML IV SCH ×2 (05:59→20:25)
[2016-07-09 08:02] LABS: Hematocrit TNR % (30.3-42.9); Hemoglobin TNR gm/dl (10.1-14.3); Red Blood Count TNR M/mm3 (3.65-5.03)
[2016-07-09 08:13] LABS: Alanine Aminotransferase 15 units/L (7-56); Albumin 1.5 g/dL (3.9-5); Albumin/Globulin Ratio 0.4 %; Alkaline Phosphatase 136 units/L (35-129); Anion Gap 15 mmol/L; Bilirubin,Total 0.5 mg/dL (0.1-1.2); Blood Urea Nitrogen 9 mg/dL (7-17); Calcium 7.5 mg/dL (8.4-10.2); Carbon Dioxide 23 mmol/L (22-30); Chloride 106.6 mmol/L (98-107); Creatine Kinase 297 units/L (30-135); Glucose 117 mg/dL (65-100); Sodium 141 mmol/L (137-145); Total Protein 5.4 g/dL (6.3-8.2)
--- NOTE | 2016-07-09 08:49 | Progress Note ---
Assessment and Plan Current antibiotics: Zosyn 4.5 gm iv Q8H (07/08 Previous antibiotics: Zosyn 2.25 g IV q8h 06/21-06/24 Cefazolin perioperatively ASSESSMENT: Cande Ge is a 55-year-old female with severe peripheral vascular disease, type 2 DM with peripheral neuropathy and hypertension who was admitted to [facility] as an outpatient with left lower extremity pain at rest for her cutaneous intervention which was unsuccessful and subsequently underwent left femoral endarterectomy and left iliac stenting and left femoral-popliteal bypass on 06/16 , urgent thrombectomies on 06/20 and right femoral endarterectomy with patch angioplasty on 07/03. She also had 2 cardiac arrests on 06/20 requiring resuscitation and intubation. She developed evidence of a retroperitoneal hematoma and ureteral obstruction and underwent bilateral ureteral stenting on 06/27. She has had a low-grade fever and leukocytosis. 07/07/16: Debridement of the left groin wound. Removal of infected Dacron patch from the SFA. Removal of thrombosed infected vein bypass graft proximal portion. Creation of the sartorius muscle flap over common femoral artery bovine pericardial patch. Problem list: 1. Leukocytosis, multifactorial including ongoing ischemia of lower extremity and surgical findings of left groin necrosis. Improving, down to 11 2. left groin infection, in view of operative findings of necrotic tissue, bypass graft was removed. Gram stain of surgical culture with gram positive cocci in pairs and gram negative rods. Started zosyn on 07/08/16 3. Low-grade fever -Patient had a elevated temp to 101 overnight. Patient has continued left groin inflammation with necrosis. Ongoing ischemia could also be adding to this 4. Severe peripheral vascular disease -Unsuccessful attempt at percutaneous left lower extremity revascularization 06/13 -Left femoral endarterectomy, left iliac stenting and left femoral-popliteal bypass on 06/16 -Left lower extremity thrombectomies on 06/20 -Right femoral endarterectomy with patch angioplasty on 07/03 5. Retroperitoneal hematoma -As seen on CT scan 06/27 6. Bilateral hydroureteronephrosis -Status post bilateral ureteral stenting 06/27 7. Status post cardiopulmonary arrests X 2 -06/20 -Mechanical ventilatory support until 07/05 PLAN: 1. continue zosyn for now to cover the gram negative and gram positive in pairs in culture 2. willl deescalate antibiotics based on surgical cultures 3. reviewed vascular surgery note, limited to no options for left leg salvage 4. follow up blood culture Subjective Date of service: 07/09/16 Principal diagnosis: Acute Hypoxemic Respiratory Failure; s/p cardiopulmonary arrest Interval history: Patient remains unhappy with being in the hospital. She does not have worsening pain Objective - Constitutional Vitals: Selected Entries 07/08/16 07/08/16 07/09/16 19:48 23:58 07:00 Temperature 101.2 F H 100.9 F H Pulse Rate 120 H O2 Sat by Pulse 97 Oximetry Blood Pressure 108/65 Blood Pressure 79 Mean General appearance: Present: no acute distress, well-nourished - EENT Eyes: PERRL, EOM intact, no scleral icterus, no conjunctival injection ENT: hearing intact, edentulous Ears: bilateral: normal - Neck Neck: supple, normal ROM, no enlarged thyroid, no masses or JVD - Respiratory Respiratory effort: normal Respiratory: bilateral: CTA - Breasts Breasts: deferred - Cardiovascular Rhythm: regular Heart Sounds: Present: S1 & S2 Extremity abnormal: edema, cyanosis (left leg cool to touch, wound vac in left groin), pulses diminished (absent pulse on left leg) - Gastrointestinal General gastrointestinal: Present: soft, non-tender, rigid Rectal Exam: deferred - Genitourinary Female genitourinary: deferred - Integumentary Integumentary: clear, dry, no jaundice, no rash - Musculoskeletal Musculoskeletal: generalized weakness - Labs CBC & Chem 7: 07/09/16 07:31 07/09/16 07:31 Labs: Microbiology 07/09/16 04:26 Peripheral/Venous Blood Culture - Preliminary Culture in Progress 07/09/16 04:26 Peripheral/Venous Blood Culture - Preliminary Culture in Progress 07/07/16 Unknown Thigh - Left Surgical Biopsy Culture - Preliminary Gram Negative [facility] Laboratory Tests 07/06/16 07/09/16 07/09/16 17:17 07:31 07:31 WBC 11.4 H Plt Count 270 Creatinine 0.9 Estimated GFR > 60 Urine WBC (Auto) 67.0 H
--- NOTE | 2016-07-09 10:28 | Progress Note ---
Assessment and Plan - Patient Problems (1) Peripheral vascular disease of extremity Current Visit: Yes Status: Acute Plan to address problem: - may ultimately need amputation - vascular surgery managing - follow CTA abd/pelvis/lower extremities (2) Acute respiratory failure Current Visit: Yes Status: Acute Plan to address problem: - on room air - aspiration precautions (3) Anemia Current Visit: Yes Status: Acute Plan to address problem: - follow H&H - evaluating source - LDH unremarkable - Likely ABLA component (4) Altered mental status Current Visit: Yes Status: Acute Plan to address problem: - resolved Subjective Date of service: 07/09/16 Principal diagnosis: Acute Hypoxemic Respiratory Failure; s/p cardiopulmonary arrest Interval history: Seen and examined at bedside; 24 hour events reviewed; nursing and respiratory care staff consulted; no adverse overnight events reported to me; resting in bed ; family visiting; denies acute chest pains or increased SOB; on morphine [employer]; no limb pain Objective Vital Signs - 12hr 07/08/16 07/08/16 07/08/16 23:00 23:38 23:51 Temperature Pulse Rate 117 H 117 H Pulse Rate [ 117 H Apical] Pulse Rate [ 117 H From Monitor] Respiratory 18 22 20 Rate Blood Pressure 123/70 123/70 O2 Sat by Pulse 99 99 Oximetry 07/08/16 07/09/16 07/09/16 23:58 00:00 01:00 Temperature 100.9 F H Pulse Rate 118 H 118 H Pulse Rate [ Apical] Pulse Rate [ From Monitor] Respiratory 18 20 Rate Blood Pressure 120/67 121/70 O2 Sat by Pulse 98 Oximetry 07/09/16 07/09/16 07/09/16 02:00 02:28 03:00 Temperature Pulse Rate 118 H 118 H 119 H Pulse Rate [ Apical] Pulse Rate [ From Monitor] Respiratory 19 17 18 Rate Blood Pressure 118/68 118/68 127/68 O2 Sat by Pulse 97 100 99 Oximetry 07/09/16 07/09/16 07/09/16 04:00 04:48 04:55 Temperature Pulse Rate 118 H 120 H Pulse Rate [ 118 H Apical] Pulse Rate [ 118 H From Monitor] Respiratory 16 17 16 Rate Blood Pressure 121/66 121/66 O2 Sat by Pulse 99 99 Oximetry 07/09/16 07/09/16 07/09/16 05:00 06:00 06:01 Temperature Pulse Rate 122 H 125 H 124 H Pulse Rate [ Apical] Pulse Rate [ From Monitor] Respiratory 15 18 16 Rate Blood Pressure 97/63 106/63 106/63 O2 Sat by Pulse 97 99 100 Oximetry 07/09/16 07/09/16 07/09/16 07:00 07:22 07:45 Temperature Pulse Rate 120 H 115 H Pulse Rate [ 116 H Apical] Pulse Rate [ 116 H From Monitor] Respiratory 20 Rate Blood Pressure 108/65 108/65 O2 Sat by Pulse 97 97 100 Oximetry 07/09/16 07/09/16 08:00 09:00 Temperature 98.9 F Pulse Rate 113 H 113 H Pulse Rate [ Apical] Pulse Rate [ From Monitor] Respiratory 17 18 Rate Blood Pressure 109/65 127/69 O2 Sat by Pulse 100 100 Oximetry Constitutional: no acute distress, alert Eyes: non-icteric ENT: oropharynx moist Neck: supple, no lymphadenopathy Effort: normal Ascultation: Left: diminished breath sounds (base), Bilateral: clear Cardiovascular: regular rate and rhythm Gastrointestinal: normoactive bowel sounds, soft, non-tender, non-distended Integumentary: other (weak LLExt) Extremities: edema, other (dark discoloration/gangrene to toes L>R) Neurologic: normal mental status, non-focal exam, pupils equal and round Psychiatric: mood appropriate, affect normal CBC and BMP: 07/13/16 07:05 07/11/16 05:10 ABG, PT/INR, D-dimer: ABG POC ABG pH 7.436 (7.35-7.45) 07/04/16 16:49 POC ABG pCO2 31.1 (35-45) L 07/04/16 16:49 POC ABG pO2 110 (80-105) H 07/04/16 16:49 POC ABG HCO3 20.9 07/04/16 16:49 POC ABG Total CO2 22 07/04/16 16:49 POC ABG O2 Sat 99 07/04/16 16:49 PT/INR, D-dimer PT 19.9 Sec. (12.2-14.9) H 06/26/16 22:57 INR 1.69 (0.87-1.13) H 06/26/16 22:57 Abnormal lab findings: Abnormal Labs 06/13/16 06/13/16 06/13/16 09:45 09:45 09:45 WBC RBC Hgb POC Hgb Hct POC Hct MCH 25 L MCHC RDW 15.8 H Plt Count Lymph % (Auto) [place] % (Auto) 8.1 H Lymph # [place] # Baso # Seg Neutrophils % Seg Neuts % (Manual) Lymphocytes % (Manual) Monocytes % (Manual) Nucleated RBC % Seg Neutrophils # Seg Neutrophils # Man Lymphocytes # (Manual) Monocytes # (Manual) PT INR APTT Fibrinogen 522 H Heparin Anti-Xa Level POC ABG pH POC ABG pCO2 POC ABG pO2 POC Potassium POC Chloride Sodium Potassium Chloride Carbon Dioxide POC BUN BUN Creatinine Glucose POC Glucose Calcium 10.3 H Magnesium AST Alkaline Phosphatase Total Creatine Kinase Total Protein Albumin Urine WBC (Auto) Crossmatch 06/13/16 06/13/16 06/13/16 09:45 20:14 20:15 WBC RBC Hgb POC Hgb Hct POC Hct MCH MCHC RDW Plt Count Lymph % (Auto) [place] % (Auto) Lymph # [place] # Baso # Seg Neutrophils % Seg Neuts % (Manual) Lymphocytes % (Manual) Monocytes % (Manual) Nucleated RBC % Seg Neutrophils # Seg Neutrophils # Man Lymphocytes # (Manual) Monocytes # (Manual) PT INR APTT 103.8 H* Fibrinogen Heparin Anti-Xa Level 0.72 H POC ABG pH POC ABG pCO2 POC ABG pO2 POC Potassium POC Chloride Sodium Potassium Chloride Carbon Dioxide POC BUN BUN Creatinine Glucose POC Glucose Calcium Magnesium AST Alkaline Phosphatase Total Creatine Kinase Total Protein Albumin Urine WBC (Auto) Crossmatch See Detail 06/14/16 06/14/16 06/14/16 07:44 10:18 19:09 WBC RBC Hgb POC Hgb Hct POC Hct MCH 26 L MCHC RDW 15.8 H Plt Count Lymph % (Auto) [place] % (Auto) 9.1 H Lymph # [place] # Baso # Seg Neutrophils % Seg Neuts % (Manual) Lymphocytes % (Manual) Monocytes % (Manual) Nucleated RBC % Seg Neutrophils # Seg Neutrophils # Man Lymphocytes # (Manual) Monocytes # (Manual) PT INR APTT Fibrinogen Heparin Anti-Xa Level 0.76 H POC ABG pH POC ABG pCO2 POC ABG pO2 POC Potassium POC Chloride Sodium Potassium Chloride Carbon Dioxide POC BUN BUN Creatinine Glucose POC Glucose 106 H Calcium Magnesium AST Alkaline Phosphatase Total Creatine Kinase Total Protein Albumin Urine WBC (Auto) Crossmatch 06/15/16 06/15/1606/15/16 04:43 04:43 22:49 WBC RBC Hgb 9.2 L POC Hgb Hct 28.4 L POC Hct MCH MCHC RDW Plt Count Lymph % (Auto) [place] % (Auto) Lymph # [place] # Baso # Seg Neutrophils % Seg Neuts % (Manual) Lymphocytes % (Manual) Monocytes % (Manual) Nucleated RBC % Seg Neutrophils # Seg Neutrophils # Man Lymphocytes # (Manual) Monocytes # (Manual) PT INR APTT Fibrinogen Heparin Anti-Xa Level 0.85 H POC ABG pH POC ABG pCO2 POC ABG pO2 POC Potassium POC Chloride Sodium Potassium Chloride Carbon Dioxide POC BUN BUN Creatinine Glucose POC Glucose 134 H Calcium Magnesium AST Alkaline Phosphatase Total Creatine Kinase Total Protein Albumin Urine WBC (Auto) Crossmatch 06/16/16 06/16/16 06/16/16 08:55 08:55 14:21 WBC RBC Hgb POC Hgb 5.8 L Hct POC Hct 17 L MCH MCHC RDW Plt Count Lymph % (Auto) [place] % (Auto) Lymph # [place] # Baso # Seg Neutrophils % Seg Neuts % (Manual) Lymphocytes % (Manual) Monocytes % (Manual) Nucleated RBC % Seg Neutrophils # Seg Neutrophils # Man Lymphocytes # (Manual) Monocytes # (Manual) PT INR APTT 20.0 L Fibrinogen Heparin Anti-Xa Level POC ABG pH POC ABG pCO2 POC ABG pO2 POC Potassium 2.9 L POC Chloride Sodium Potassium Chloride Carbon Dioxide POC BUN 7 L BUN Creatinine Glucose POC Glucose 249 H Calcium Magnesium AST Alkaline Phosphatase Total Creatine Kinase Total Protein Albumin Urine WBC (Auto) Crossmatch See Detail 06/16/16 06/16/16 06/16/16 16:55 17:41 17:48 WBC RBC Hgb POC Hgb 8.8 L Hct POC Hct 26 L < 15 L MCH MCHC RDW Plt Count Lymph % (Auto) [place] % (Auto) Lymph # [place] # Baso # Seg Neutrophils % Seg Neuts % (Manual) Lymphocytes % (Manual) Monocytes % (Manual) Nucleated RBC % Seg Neutrophils # Seg Neutrophils # Man Lymphocytes # (Manual) Monocytes # (Manual) PT INR APTT Fibrinogen Heparin Anti-Xa Level POC ABG pH 7.031 L POC ABG pCO2 POC ABG pO2 475 H POC Potassium 3.2 L POC Chloride 112 H 114 H Sodium Potassium Chloride Carbon Dioxide POC BUN 7 L 7 L BUN Creatinine Glucose POC Glucose 203 H 291 H Calcium Magnesium AST Alkaline Phosphatase Total Creatine Kinase Total Protein Albumin Urine WBC (Auto) Crossmatch 06/16/16 06/16/16 06/16/16 18:07 19:09 20:10 WBC 15.8 H RBC Hgb POC Hgb 6.5 L Hct POC Hct 19 L MCH MCHC RDW Plt Count 38 L Lymph % (Auto) 5.9 L [place] % (Auto) 9.3 H Lymph # 0.9 L [place] # 1.5 H Baso # Seg Neutrophils % 84.6 H Seg Neuts % (Manual) Lymphocytes % (Manual) Monocytes % (Manual) Nucleated RBC % Seg Neutrophils # 13.3 H Seg Neutrophils # Man Lymphocytes # (Manual) Monocytes # (Manual) PT INR APTT Fibrinogen Heparin Anti-Xa Level POC ABG pH POC ABG pCO2 POC ABG pO2 POC Potassium POC Chloride 113 H Sodium Potassium Chloride Carbon Dioxide POC BUN 7 L BUN Creatinine Glucose POC Glucose 263 H 231 H Calcium Magnesium AST Alkaline Phosphatase Total Creatine Kinase Total Protein Albumin Urine WBC (Auto) Crossmatch 06/16/16 06/16/16 06/16/16 20:10 20:18 21:10 WBC RBC Hgb POC Hgb Hct POC Hct MCH MCHC RDW Plt Count Lymph % (Auto) [place] % (Auto) Lymph # [place] # Baso # Seg Neutrophils % Seg Neuts % (Manual) Lymphocytes % (Manual) Monocytes % (Manual) Nucleated RBC % Seg Neutrophils # Seg Neutrophils # Man Lymphocytes # (Manual) Monocytes # (Manual) PT INR APTT Fibrinogen Heparin Anti-Xa Level POC ABG pH 7.236 L 7.280 L POC ABG pCO2 POC ABG pO2 139 H 145 H POC Potassium POC Chloride Sodium Potassium 3.4 L Chloride 114.5 H Carbon Dioxide 17 L D POC BUN BUN Creatinine Glucose 188 H POC Glucose Calcium 6.1 L D Magnesium AST Alkaline Phosphatase Total Creatine Kinase Total Protein Albumin Urine WBC (Auto) Crossmatch 06/16/16 06/17/16 06/17/16 22:53 04:48 05:35 WBC RBC Hgb POC Hgb Hct POC Hct MCH MCHC RDW Plt Count Lymph % (Auto) [place] % (Auto) Lymph # [place] # Baso # Seg Neutrophils % Seg Neuts % (Manual) Lymphocytes % (Manual) Monocytes % (Manual) Nucleated RBC % Seg Neutrophils # Seg Neutrophils # Man Lymphocytes # (Manual) Monocytes # (Manual) PT INR APTT Fibrinogen Heparin Anti-Xa Level POC ABG pH POC ABG pCO2 33.9 L 22.2 L POC ABG pO2 152 H 154 H POC Potassium POC Chloride Sodium 150 H Potassium 3.4 L Chloride 114.2 H Carbon Dioxide 16 L POC BUN BUN Creatinine Glucose 221 H POC Glucose Calcium 7.6 L D Magnesium AST Alkaline Phosphatase Total Creatine Kinase Total Protein Albumin Urine WBC (Auto) Crossmatch 06/17/16 06/18/16 06/18/16 09:22 07:26 08:25 WBC 20.3 H RBC 3.41 L Hgb 9.9 L POC Hgb Hct 29.7 L POC Hct MCH MCHC RDW Plt Count Lymph % (Auto) [place] % (Auto) Lymph # [place] # Baso # Seg Neutrophils % Seg Neuts % (Manual) 81.0 H Lymphocytes % (Manual) 6.0 L Monocytes % (Manual) 12.0 H Nucleated RBC % Seg Neutrophils # Seg Neutrophils # Man 16.4 H Lymphocytes # (Manual) Monocytes # (Manual) 2.4 H PT INR APTT Fibrinogen Heparin Anti-Xa Level POC ABG pH POC ABG pCO2 POC ABG pO2 POC Potassium POC Chloride Sodium Potassium 3.1 L Chloride Carbon Dioxide POC BUN BUN Creatinine Glucose 136 H POC Glucose 141 H Calcium 7.5 L Magnesium AST Alkaline Phosphatase Total Creatine Kinase Total Protein Albumin Urine WBC (Auto) Crossmatch 06/18/16 06/18/16 06/18/16 08:25 11:09 19:40 WBC RBC Hgb 6.5 L D POC Hgb Hct 19.3 L* D POC Hct MCH MCHC RDW Plt Count 131 L Lymph % (Auto) [place] % (Auto) Lymph # [place] # Baso # Seg Neutrophils % Seg Neuts % (Manual) Lymphocytes % (Manual) Monocytes % (Manual) Nucleated RBC % Seg Neutrophils # Seg Neutrophils # Man Lymphocytes # (Manual) Monocytes # (Manual) PT INR APTT Fibrinogen Heparin Anti-Xa Level POC ABG pH 7.490 H POC ABG pCO2 POC ABG pO2 131 H POC Potassium POC Chloride Sodium Potassium Chloride Carbon Dioxide POC BUN BUN Creatinine Glucose POC Glucose 125 H Calcium Magnesium AST Alkaline Phosphatase Total Creatine Kinase Total Protein Albumin Urine WBC (Auto) Crossmatch 06/18/16 06/19/16 06/19/16 21:10 07:07 07:28 WBC 13.6 H RBC 2.17 L Hgb 6.5 L POC Hgb Hct 18.8 L* POC Hct MCH MCHC 35 H RDW Plt Count 131 L Lymph % (Auto) 10.1 L [place] % (Auto) 9.3 H Lymph # [place] # 1.3 H Baso # Seg Neutrophils % 79.7 H Seg Neuts % (Manual) Lymphocytes % (Manual) Monocytes % (Manual) Nucleated RBC % Seg Neutrophils # 10.8 H Seg Neutrophils # Man Lymphocytes # (Manual) Monocytes # (Manual) PT INR APTT Fibrinogen Heparin Anti-Xa Level 0.75 H POC ABG pH POC ABG pCO2 POC ABG pO2 POC Potassium POC Chloride Sodium Potassium 3.5 L Chloride Carbon Dioxide POC BUN BUN Creatinine Glucose 104 H POC Glucose Calcium 7.6 L Magnesium 1.4 L AST Alkaline Phosphatase Total Creatine Kinase Total Protein Albumin Urine WBC (Auto) Crossmatch 06/20/16 06/20/16 06/20/16 04:15 18:15 18:15 WBC 16.6 H RBC 1.19 L Hgb 9.2 L 3.5 L* D POC Hgb Hct 27.5 L D 11.0 L* D POC Hct MCH MCHC RDW Plt Count 138 L Lymph % (Auto) [place] % (Auto) Lymph # [place] # Baso # Seg Neutrophils % Seg Neuts % (Manual) Lymphocytes % (Manual) Monocytes % (Manual) Nucleated RBC % Seg Neutrophils # Seg Neutrophils # Man Lymphocytes # (Manual) Monocytes # (Manual) PT INR APTT Fibrinogen Heparin Anti-Xa Level POC ABG pH POC ABG pCO2 POC ABG pO2 POC Potassium POC Chloride Sodium 146 H Potassium Chloride Carbon Dioxide 14 L D POC BUN BUN Creatinine Glucose 31 L* POC Glucose Calcium 6.7 L Magnesium AST Alkaline Phosphatase Total Creatine Kinase Total Protein Albumin Urine WBC (Auto) Crossmatch 06/20/16 06/20/16 06/20/16 18:15 19:33 19:36 WBC RBC Hgb POC Hgb Hct POC Hct MCH MCHC RDW Plt Count Lymph % (Auto) [place] % (Auto) Lymph # [place] # Baso # Seg Neutrophils % Seg Neuts % (Manual) Lymphocytes % (Manual) Monocytes % (Manual) Nucleated RBC % Seg Neutrophils # Seg Neutrophils # Man Lymphocytes # (Manual) Monocytes # (Manual) PT INR APTT Fibrinogen Heparin Anti-Xa Level POC ABG pH POC ABG pCO2 26.3 L POC ABG pO2 394 H POC Potassium POC Chloride Sodium Potassium Chloride Carbon Dioxide POC BUN BUN Creatinine Glucose POC Glucose 212 H Calcium Magnesium AST Alkaline Phosphatase Total Creatine Kinase Total Protein Albumin Urine WBC (Auto) Crossmatch See Detail 06/20/16 06/20/16 06/21/16 22:01 23:00 00:35 WBC RBC Hgb POC Hgb Hct POC Hct MCH MCHC RDW Plt Count Lymph % (Auto) [place] % (Auto) Lymph # [place] # Baso # Seg Neutrophils % Seg Neuts % (Manual) Lymphocytes % (Manual) Monocytes % (Manual) Nucleated RBC % Seg Neutrophils # Seg Neutrophils # Man Lymphocytes # (Manual) Monocytes # (Manual) PT 21.3 H INR 1.85 H APTT 48.4 H Fibrinogen Heparin Anti-Xa Level POC ABG pH POC ABG pCO2 POC ABG pO2 POC Potassium POC Chloride Sodium Potassium Chloride Carbon Dioxide POC BUN BUN Creatinine Glucose POC Glucose 149 H 147 H Calcium Magnesium AST Alkaline Phosphatase Total Creatine Kinase Total Protein Albumin Urine WBC (Auto) Crossmatch 06/21/16 06/21/16 06/21/16 04:30 04:30 06:01 WBC 21.7 H RBC 3.58 L Hgb POC Hgb Hct POC Hct MCH MCHC 35 H RDW Plt Count 116 L Lymph % (Auto) [place] % (Auto) Lymph # [place] # Baso # Seg Neutrophils % Seg Neuts % (Manual) Lymphocytes % (Manual) 8.0 L Monocytes % (Manual) Nucleated RBC % 3.0 H Seg Neutrophils # Seg Neutrophils # Man 13.7 H Lymphocytes # (Manual) Monocytes # (Manual) 1.5 H PT INR APTT Fibrinogen Heparin Anti-Xa Level POC ABG pH 7.541 H POC ABG pCO2 21.1 L POC ABG pO2 108 H POC Potassium POC Chloride Sodium Potassium 3.0 L Chloride 110.3 H Carbon Dioxide 18 L POC BUN BUN 18 H Creatinine Glucose 141 H POC Glucose Calcium 6.4 L Magnesium AST Alkaline Phosphatase Total Creatine Kinase Total Protein Albumin Urine WBC (Auto) Crossmatch 06/21/16 06/21/16 06/21/16 07:00 10:02 17:51 WBC RBC Hgb 8.3 L POC Hgb Hct 24.7 L D POC Hct MCH MCHC RDW Plt Count Lymph % (Auto) [place] % (Auto) Lymph # [place] # Baso # Seg Neutrophils % Seg Neuts % (Manual) Lymphocytes % (Manual) Monocytes % (Manual) Nucleated RBC % Seg Neutrophils # Seg Neutrophils # Man Lymphocytes # (Manual) Monocytes # (Manual) PT INR APTT Fibrinogen Heparin Anti-Xa Level POC ABG pH POC ABG pCO2 POC ABG pO2 POC Potassium POC Chloride Sodium Potassium Chloride Carbon Dioxide POC BUN BUN Creatinine Glucose POC Glucose 132 H 106 H Calcium Magnesium AST Alkaline Phosphatase Total Creatine Kinase Total Protein Albumin Urine WBC (Auto) Crossmatch 06/22/16 06/22/16 06/22/16 05:00 05:00 06:40 WBC 20.6 H RBC 3.54 L Hgb POC Hgb Hct POC Hct MCH MCHC RDW Plt Count 129 L Lymph % (Auto) [place] % (Auto) Lymph # [place] # Baso # Seg Neutrophils % Seg Neuts % (Manual) 87.0 H Lymphocytes % (Manual) 4.0 L Monocytes % (Manual) Nucleated RBC % 4.0 H Seg Neutrophils # Seg Neutrophils # Man 17.9 H Lymphocytes # (Manual) 0.8 L Monocytes # (Manual) 1.2 H PT INR APTT Fibrinogen Heparin Anti-Xa Level POC ABG pH POC ABG pCO2 21.9 L POC ABG pO2 118 H POC Potassium POC Chloride Sodium Potassium Chloride 109.9 H Carbon Dioxide 15 L POC BUN BUN 26 H Creatinine 2.2 H D Glucose POC Glucose Calcium 6.3 L Magnesium AST Alkaline Phosphatase Total Creatine Kinase Total Protein Albumin Urine WBC (Auto) Crossmatch 06/22/16 06/22/16 06/22/16 09:15 09:15 23:17 WBC RBC Hgb 9.1 L POC Hgb Hct 26.9 L POC Hct MCH MCHC RDW Plt Count 116 L Lymph % (Auto) [place] % (Auto) Lymph # [place] # Baso # Seg Neutrophils % Seg Neuts % (Manual) Lymphocytes % (Manual) Monocytes % (Manual) Nucleated RBC % Seg Neutrophils # Seg Neutrophils # Man Lymphocytes # (Manual) Monocytes # (Manual) PT 15.8 H INR 1.27 H APTT Fibrinogen Heparin Anti-Xa Level POC ABG pH POC ABG pCO2 POC ABG pO2 POC Potassium POC Chloride Sodium Potassium Chloride Carbon Dioxide POC BUN BUN Creatinine Glucose POC Glucose 134 H Calcium Magnesium AST Alkaline Phosphatase Total Creatine Kinase Total Protein Albumin Urine WBC (Auto) Crossmatch 06/23/16 06/23/16 06/23/16 05:43 05:43 09:44 WBC 13.8 H RBC 2.70 L Hgb 8.1 L POC Hgb Hct 24.2 L POC Hct MCH MCHC RDW Plt Count 93 L Lymph % (Auto) 6.2 L [place] % (Auto) Lymph # 0.9 L [place] # Baso # Seg Neutrophils % 89.2 H Seg Neuts % (Manual) Lymphocytes % (Manual) Monocytes % (Manual) Nucleated RBC % Seg Neutrophils # 12.3 H Seg Neutrophils # Man Lymphocytes # (Manual) Monocytes # (Manual) PT INR APTT Fibrinogen Heparin Anti-Xa Level POC ABG pH 7.593 H POC ABG pCO2 26.8 L POC ABG pO2 141 H POC Potassium POC Chloride Sodium 146 H Potassium Chloride Carbon Dioxide POC BUN BUN 32 H Creatinine 2.6 H Glucose 142 H POC Glucose Calcium 7.0 L Magnesium AST Alkaline Phosphatase Total Creatine Kinase Total Protein Albumin Urine WBC (Auto) Crossmatch 06/23/16 06/23/16 06/23/16 11:23 17:42 23:32 WBC RBC Hgb POC Hgb Hct POC Hct MCH MCHC RDW Plt Count Lymph % (Auto) [place] % (Auto) Lymph # [place] # Baso # Seg Neutrophils % Seg Neuts % (Manual) Lymphocytes % (Manual) Monocytes % (Manual) Nucleated RBC % Seg Neutrophils # Seg Neutrophils # Man Lymphocytes # (Manual) Monocytes # (Manual) PT INR APTT Fibrinogen Heparin Anti-Xa Level POC ABG pH POC ABG pCO2 POC ABG pO2 POC Potassium POC Chloride Sodium Potassium Chloride Carbon Dioxide POC BUN BUN Creatinine Glucose POC Glucose 138 H 133 H 111 H Calcium Magnesium AST Alkaline Phosphatase Total Creatine Kinase Total Protein Albumin Urine WBC (Auto) Crossmatch 06/24/16 06/24/16 06/24/16 06:27 08:10 08:10 WBC 16.6 H RBC 2.91 L Hgb 8.9 L POC Hgb Hct 26.4 L POC Hct MCH MCHC RDW 15.6 H Plt Count 115 L Lymph % (Auto) 4.6 L [place] % (Auto) Lymph # 0.8 L [place] # 1.0 H Baso # Seg Neutrophils % 89.2 H Seg Neuts % (Manual) Lymphocytes % (Manual) Monocytes % (Manual) Nucleated RBC % Seg Neutrophils # 14.9 H Seg Neutrophils # Man Lymphocytes # (Manual) Monocytes # (Manual) PT INR APTT Fibrinogen Heparin Anti-Xa Level POC ABG pH POC ABG pCO2 POC ABG pO2 POC Potassium POC Chloride Sodium 146 H Potassium Chloride Carbon Dioxide POC BUN BUN 37 H Creatinine 2.9 H Glucose POC Glucose 109 H Calcium 7.5 L Magnesium AST Alkaline Phosphatase Total Creatine Kinase Total Protein Albumin Urine WBC (Auto) Crossmatch 06/24/16 06/24/16 06/24/16 12:05 17:57 22:13 WBC RBC Hgb POC Hgb Hct POC Hct MCH MCHC RDW Plt Count Lymph % (Auto) [place] % (Auto) Lymph # [place] # Baso # Seg Neutrophils % Seg Neuts % (Manual) Lymphocytes % (Manual) Monocytes % (Manual) Nucleated RBC % Seg Neutrophils # Seg Neutrophils # Man Lymphocytes # (Manual) Monocytes # (Manual) PT INR APTT Fibrinogen Heparin Anti-Xa Level POC ABG pH POC ABG pCO2 POC ABG pO2 POC Potassium POC Chloride Sodium Potassium Chloride Carbon Dioxide POC BUN BUN Creatinine Glucose POC Glucose 117 H 124 H 116 H Calcium Magnesium AST Alkaline Phosphatase Total Creatine Kinase Total Protein Albumin Urine WBC (Auto) Crossmatch 06/25/16 06/25/16 06/25/16 06:42 06:49 12:14 WBC RBC Hgb POC Hgb Hct POC Hct MCH MCHC RDW Plt Count Lymph % (Auto) [place] % (Auto) Lymph # [place] # Baso # Seg Neutrophils % Seg Neuts % (Manual) Lymphocytes % (Manual) Monocytes % (Manual) Nucleated RBC % Seg Neutrophils # Seg Neutrophils # Man Lymphocytes # (Manual) Monocytes # (Manual) PT INR APTT Fibrinogen Heparin Anti-Xa Level POC ABG pH POC ABG pCO2 POC ABG pO2 POC Potassium POC Chloride Sodium Potassium Chloride Carbon Dioxide POC BUN BUN 46 H Creatinine 3.6 H Glucose 133 H POC Glucose 137 H 136 H Calcium 7.4 L Magnesium AST Alkaline Phosphatase Total Creatine Kinase Total Protein Albumin Urine WBC (Auto) Crossmatch 06/25/16 06/25/16 06/26/16 16:07 21:32 05:55 WBC RBC Hgb POC Hgb Hct POC Hct MCH MCHC RDW Plt Count Lymph % (Auto) [place] % (Auto) Lymph # [place] # Baso # Seg Neutrophils % Seg Neuts % (Manual) Lymphocytes % (Manual) Monocytes % (Manual) Nucleated RBC % Seg Neutrophils # Seg Neutrophils # Man Lymphocytes # (Manual) Monocytes # (Manual) PT INR APTT Fibrinogen Heparin Anti-Xa Level POC ABG pH POC ABG pCO2 POC ABG pO2 POC Potassium POC Chloride Sodium Potassium Chloride Carbon Dioxide 20 L POC BUN BUN 55 H Creatinine 4.2 H Glucose 120 H POC Glucose 146 H 146 H Calcium 7.5 L Magnesium AST Alkaline Phosphatase Total Creatine Kinase Total Protein Albumin Urine WBC (Auto) Crossmatch 06/26/16 06/26/16 06/26/16 06:30 11:38 16:45 WBC RBC Hgb POC Hgb Hct POC Hct MCH MCHC RDW Plt Count Lymph % (Auto) [place] % (Auto) Lymph # [place] # Baso # Seg Neutrophils % Seg Neuts % (Manual) Lymphocytes % (Manual) Monocytes % (Manual) Nucleated RBC % Seg Neutrophils # Seg Neutrophils # Man Lymphocytes # (Manual) Monocytes # (Manual) PT INR APTT Fibrinogen Heparin Anti-Xa Level POC ABG pH POC ABG pCO2 POC ABG pO2 POC Potassium POC Chloride Sodium Potassium Chloride Carbon Dioxide POC BUN BUN Creatinine Glucose POC Glucose 128 H 143 H 121 H Calcium Magnesium AST Alkaline Phosphatase Total Creatine Kinase Total Protein Albumin Urine WBC (Auto) Crossmatch 06/26/16 06/26/16 06/27/16 22:57 22:57 00:47 WBC RBC Hgb 8.4 L POC Hgb Hct 25.1 L POC Hct MCH MCHC RDW Plt Count Lymph % (Auto) [place] % (Auto) Lymph # [place] # Baso # Seg Neutrophils % Seg Neuts % (Manual) Lymphocytes % (Manual) Monocytes % (Manual) Nucleated RBC % Seg Neutrophils # Seg Neutrophils # Man Lymphocytes # (Manual) Monocytes # (Manual) PT 19.9 H INR 1.69 H APTT Fibrinogen Heparin Anti-Xa Level POC ABG pH POC ABG pCO2 POC ABG pO2 POC Potassium POC Chloride Sodium Potassium Chloride Carbon Dioxide POC BUN BUN Creatinine Glucose POC Glucose 110 H Calcium Magnesium AST Alkaline Phosphatase Total Creatine Kinase Total Protein Albumin Urine WBC (Auto) Crossmatch 06/27/16 06/27/16 06/27/16 05:43 05:43 06:40 WBC RBC Hgb POC Hgb Hct POC Hct MCH MCHC RDW Plt Count Lymph % (Auto) [place] % (Auto) Lymph # [place] # Baso # Seg Neutrophils % Seg Neuts % (Manual) Lymphocytes % (Manual) Monocytes % (Manual) Nucleated RBC % Seg Neutrophils # Seg Neutrophils # Man Lymphocytes # (Manual) Monocytes # (Manual) PT INR APTT Fibrinogen Heparin Anti-Xa Level 2.00 H POC ABG pH POC ABG pCO2 POC ABG pO2 POC Potassium POC Chloride Sodium Potassium Chloride Carbon Dioxide 20 L POC BUN BUN 58 H Creatinine 4.8 H Glucose POC Glucose 109 H Calcium 8.1 L Magnesium AST Alkaline Phosphatase Total Creatine Kinase Total Protein Albumin Urine WBC (Auto) Crossmatch 06/27/16 06/27/16 06/27/16 08:15 16:46 17:47 WBC RBC Hgb POC Hgb Hct POC Hct MCH MCHC RDW Plt Count Lymph % (Auto) [place] % (Auto) Lymph # [place] # Baso # Seg Neutrophils % Seg Neuts % (Manual) Lymphocytes % (Manual) Monocytes % (Manual) Nucleated RBC % Seg Neutrophils # Seg Neutrophils # Man Lymphocytes # (Manual) Monocytes # (Manual) PT INR APTT Fibrinogen Heparin Anti-Xa Level > 2.00 H 1.87 H POC ABG pH POC ABG pCO2 POC ABG pO2 POC Potassium POC Chloride Sodium Potassium Chloride Carbon Dioxide POC BUN BUN Creatinine Glucose POC Glucose 231 H Calcium Magnesium AST Alkaline Phosphatase Total Creatine Kinase Total Protein Albumin Urine WBC (Auto) Crossmatch 06/27/16 06/27/16 06/28/16 21:23 23:54 06:27 WBC RBC Hgb POC Hgb Hct POC Hct MCH MCHC RDW Plt Count Lymph % (Auto) [place] % (Auto) Lymph # [place] # Baso # Seg Neutrophils % Seg Neuts % (Manual) Lymphocytes % (Manual) Monocytes % (Manual) Nucleated RBC % Seg Neutrophils # Seg Neutrophils # Man Lymphocytes # (Manual) Monocytes # (Manual) PT INR APTT Fibrinogen Heparin Anti-Xa Level 1.70 H POC ABG pH POC ABG pCO2 POC ABG pO2 POC Potassium POC Chloride Sodium Potassium Chloride Carbon Dioxide POC BUN BUN 62 H Creatinine 4.5 H Glucose 111 H POC Glucose 122 H Calcium 8.3 L Magnesium AST Alkaline Phosphatase Total Creatine Kinase Total Protein Albumin Urine WBC (Auto) Crossmatch 06/28/16 06/28/16 06/28/16 06:27 11:47 14:14 WBC RBC Hgb 7.7 L POC Hgb Hct 22.9 L POC Hct MCH MCHC RDW Plt Count Lymph % (Auto) [place] % (Auto) Lymph # [place] # Baso # Seg Neutrophils % Seg Neuts % (Manual) Lymphocytes % (Manual) Monocytes % (Manual) Nucleated RBC % Seg Neutrophils # Seg Neutrophils # Man Lymphocytes # (Manual) Monocytes # (Manual) PT INR APTT Fibrinogen Heparin Anti-Xa Level POC ABG pH 7.461 H POC ABG pCO2 31.9 L POC ABG pO2 73 L POC Potassium POC Chloride Sodium Potassium Chloride Carbon Dioxide POC BUN BUN Creatinine Glucose POC Glucose 155 H Calcium Magnesium AST Alkaline Phosphatase Total Creatine Kinase Total Protein Albumin Urine WBC (Auto) Crossmatch 06/28/16 06/28/16 06/28/16 16:27 20:47 22:59 WBC RBC Hgb POC Hgb Hct POC Hct MCH MCHC RDW Plt Count Lymph % (Auto) [place] % (Auto) Lymph # [place] # Baso # Seg Neutrophils % Seg Neuts % (Manual) Lymphocytes % (Manual) Monocytes % (Manual) Nucleated RBC % Seg Neutrophils # Seg Neutrophils # Man Lymphocytes # (Manual) Monocytes # (Manual) PT INR APTT Fibrinogen Heparin Anti-Xa Level 1.16 H POC ABG pH POC ABG pCO2 POC ABG pO2 POC Potassium POC Chloride Sodium Potassium Chloride Carbon Dioxide POC BUN BUN Creatinine Glucose POC Glucose 193 H 126 H Calcium Magnesium AST Alkaline Phosphatase Total Creatine Kinase Total Protein Albumin Urine WBC (Auto) Crossmatch 06/29/16 06/29/16 06/29/16 05:51 09:10 09:10 WBC RBC Hgb POC Hgb Hct POC Hct MCH MCHC RDW Plt Count Lymph % (Auto) [place] % (Auto) Lymph # [place] # Baso # Seg Neutrophils % Seg Neuts % (Manual) Lymphocytes % (Manual) Monocytes % (Manual) Nucleated RBC % Seg Neutrophils # Seg Neutrophils # Man Lymphocytes # (Manual) Monocytes # (Manual) PT INR APTT Fibrinogen Heparin Anti-Xa Level 0.92 H POC ABG pH POC ABG pCO2 POC ABG pO2 POC Potassium POC Chloride Sodium Potassium Chloride Carbon Dioxide POC BUN BUN 53 H Creatinine 3.7 H Glucose 139 H POC Glucose 121 H Calcium 8.2 L Magnesium AST Alkaline Phosphatase Total Creatine Kinase Total Protein Albumin Urine WBC (Auto) Crossmatch 06/29/16 06/30/16 06/30/16 21:22 05:09 08:07 WBC RBC Hgb 7.3 L POC Hgb Hct 21.9 L POC Hct MCH MCHC RDW Plt Count Lymph % (Auto) [place] % (Auto) Lymph # [place] # Baso # Seg Neutrophils % Seg Neuts % (Manual) Lymphocytes % (Manual) Monocytes % (Manual) Nucleated RBC % Seg Neutrophils # Seg Neutrophils # Man Lymphocytes # (Manual) Monocytes # (Manual) PT INR APTT Fibrinogen Heparin Anti-Xa Level POC ABG pH POC ABG pCO2 POC ABG pO2 POC Potassium POC Chloride Sodium Potassium Chloride Carbon Dioxide POC BUN BUN Creatinine Glucose POC Glucose 108 H 106 H Calcium Magnesium AST Alkaline Phosphatase Total Creatine Kinase Total Protein Albumin Urine WBC (Auto) Crossmatch 06/30/16 06/30/16 06/30/16 10:48 12:13 16:48 WBC RBC Hgb POC Hgb Hct POC Hct MCH MCHC RDW Plt Count Lymph % (Auto) [place] % (Auto) Lymph # [place] # Baso # Seg Neutrophils % Seg Neuts % (Manual) Lymphocytes % (Manual) Monocytes % (Manual) Nucleated RBC % Seg Neutrophils # Seg Neutrophils # Man Lymphocytes # (Manual) Monocytes # (Manual) PT INR APTT Fibrinogen Heparin Anti-Xa Level POC ABG pH POC ABG pCO2 POC ABG pO2 POC Potassium POC Chloride Sodium Potassium Chloride Carbon Dioxide POC BUN BUN 46 H Creatinine 3.0 H Glucose POC Glucose 153 H 152 H Calcium Magnesium AST Alkaline Phosphatase Total Creatine Kinase Total Protein Albumin Urine WBC (Auto) Crossmatch 06/30/16 07/01/16 07/01/16 21:47 05:47 07:44 WBC 19.8 H RBC 2.45 L Hgb 7.2 L POC Hgb Hct 22.2 L POC Hct MCH MCHC RDW Plt Count 481 H Lymph % (Auto) 5.5 L [place] % (Auto) Lymph # 1.1 L [place] # 1.4 H Baso # Seg Neutrophils % 86.8 H Seg Neuts % (Manual) Lymphocytes % (Manual) Monocytes % (Manual) Nucleated RBC % Seg Neutrophils # 17.1 H Seg Neutrophils # Man Lymphocytes # (Manual) Monocytes # (Manual) PT INR APTT Fibrinogen Heparin Anti-Xa Level POC ABG pH POC ABG pCO2 POC ABG pO2 POC Potassium POC Chloride Sodium Potassium Chloride Carbon Dioxide POC BUN BUN Creatinine Glucose POC Glucose 162 H 124 H Calcium Magnesium AST Alkaline Phosphatase Total Creatine Kinase Total Protein Albumin Urine WBC (Auto) Crossmatch 07/01/16 07/01/16 07/01/16 07:44 11:55 16:16 WBC RBC Hgb POC Hgb Hct POC Hct MCH MCHC RDW Plt Count Lymph % (Auto) [place] % (Auto) Lymph # [place] # Baso # Seg Neutrophils % Seg Neuts % (Manual) Lymphocytes % (Manual) Monocytes % (Manual) Nucleated RBC % Seg Neutrophils # Seg Neutrophils # Man Lymphocytes # (Manual) Monocytes # (Manual) PT INR APTT Fibrinogen Heparin Anti-Xa Level POC ABG pH POC ABG pCO2 POC ABG pO2 POC Potassium POC Chloride Sodium Potassium 3.1 L Chloride Carbon Dioxide POC BUN BUN 38 H Creatinine 2.2 H Glucose 114 H POC Glucose 114 H 143 H Calcium Magnesium AST Alkaline Phosphatase Total Creatine Kinase Total Protein Albumin Urine WBC (Auto) Crossmatch 07/01/16 07/02/16 07/02/16 21:42 05:40 06:46 WBC 18.1 H RBC 2.45 L Hgb 7.3 L POC Hgb Hct 21.8 L POC Hct MCH MCHC RDW Plt Count 490 H Lymph % (Auto) 6.1 L [place] % (Auto) Lymph # 1.1 L [place] # 1.1 H Baso # 0.2 H Seg Neutrophils % 86.0 H Seg Neuts % (Manual) Lymphocytes % (Manual) Monocytes % (Manual) Nucleated RBC % Seg Neutrophils # 15.6 H Seg Neutrophils # Man Lymphocytes # (Manual) Monocytes # (Manual) PT INR APTT Fibrinogen Heparin Anti-Xa Level POC ABG pH POC ABG pCO2 POC ABG pO2 POC Potassium POC Chloride Sodium Potassium Chloride Carbon Dioxide POC BUN BUN Creatinine Glucose POC Glucose 135 H 135 H Calcium Magnesium AST Alkaline Phosphatase Total Creatine Kinase Total Protein Albumin Urine WBC (Auto) Crossmatch 07/02/16 07/02/16 07/02/16 06:46 06:49 11:23 WBC RBC Hgb POC Hgb Hct POC Hct MCH MCHC RDW Plt Count Lymph % (Auto) [place] % (Auto) Lymph # [place] # Baso # Seg Neutrophils % Seg Neuts % (Manual) Lymphocytes % (Manual) Monocytes % (Manual) Nucleated RBC % Seg Neutrophils # Seg Neutrophils # Man Lymphocytes # (Manual) Monocytes # (Manual) PT INR APTT Fibrinogen Heparin Anti-Xa Level POC ABG pH POC ABG pCO2 POC ABG pO2 POC Potassium POC Chloride Sodium Potassium 2.8 L* Chloride Carbon Dioxide POC BUN BUN 30 H Creatinine 1.8 H Glucose 121 H POC Glucose 121 H Calcium 8.1 L Magnesium 1.3 L AST Alkaline Phosphatase Total Creatine Kinase Total Protein Albumin Urine WBC (Auto) Crossmatch 07/02/16 07/02/16 07/03/16 17:02 21:31 05:35 WBC RBC Hgb POC Hgb Hct POC Hct MCH MCHC RDW Plt Count Lymph % (Auto) [place] % (Auto) Lymph # [place] # Baso # Seg Neutrophils % Seg Neuts % (Manual) Lymphocytes % (Manual) Monocytes % (Manual) Nucleated RBC % Seg Neutrophils # Seg Neutrophils # Man Lymphocytes # (Manual) Monocytes # (Manual) PT INR APTT Fibrinogen Heparin Anti-Xa Level POC ABG pH POC ABG pCO2 POC ABG pO2 POC Potassium POC Chloride Sodium Potassium Chloride Carbon Dioxide POC BUN BUN Creatinine Glucose POC Glucose 121 H 159 H 149 H Calcium Magnesium AST Alkaline Phosphatase Total Creatine Kinase Total Protein Albumin Urine WBC (Auto) Crossmatch 07/03/16 07/03/16 07/03/16 06:45 06:45 06:45 WBC 16.8 H RBC 2.21 L Hgb 6.5 L POC Hgb Hct 19.4 L* POC Hct MCH MCHC RDW Plt Count 503 H Lymph % (Auto) 6.4 L [place] % (Auto) Lymph # 1.1 L [place] # 1.1 H Baso # Seg Neutrophils % 85.6 H Seg Neuts % (Manual) Lymphocytes % (Manual) Monocytes % (Manual) Nucleated RBC % Seg Neutrophils # 14.4 H Seg Neutrophils # Man Lymphocytes # (Manual) Monocytes # (Manual) PT INR APTT Fibrinogen Heparin Anti-Xa Level POC ABG pH POC ABG pCO2 POC ABG pO2 POC Potassium POC Chloride Sodium Potassium 2.9 L* Chloride Carbon Dioxide POC BUN BUN 21 H Creatinine 1.6 H Glucose 126 H POC Glucose Calcium 8.0 L Magnesium 1.6 L AST Alkaline Phosphatase Total Creatine Kinase Total Protein Albumin Urine WBC (Auto) Crossmatch 07/03/16 07/03/16 07/03/16 12:54 19:00 20:01 WBC RBC Hgb POC Hgb Hct POC Hct MCH MCHC RDW Plt Count Lymph % (Auto) [place] % (Auto) Lymph # [place] # Baso # Seg Neutrophils % Seg Neuts % (Manual) Lymphocytes % (Manual) Monocytes % (Manual) Nucleated RBC % Seg Neutrophils # Seg Neutrophils # Man Lymphocytes # (Manual) Monocytes # (Manual) PT INR APTT Fibrinogen Heparin Anti-Xa Level POC ABG pH 7.302 L POC ABG pCO2 49.8 H POC ABG pO2 422 H POC Potassium POC Chloride Sodium Potassium Chloride Carbon Dioxide POC BUN BUN Creatinine Glucose POC Glucose 129 H Calcium Magnesium AST Alkaline Phosphatase Total Creatine Kinase Total Protein Albumin Urine WBC (Auto) Crossmatch See Detail 07/03/16 07/04/16 07/04/16 23:09 04:30 04:30 WBC 19.6 H RBC 3.21 L Hgb 9.4 L POC Hgb Hct 28.2 L POC Hct MCH MCHC RDW Plt Count Lymph % (Auto) 6.5 L [place] % (Auto) Lymph # [place] # 1.2 H Baso # Seg Neutrophils % 86.4 H Seg Neuts % (Manual) Lymphocytes % (Manual) Monocytes % (Manual) Nucleated RBC % Seg Neutrophils # 16.9 H Seg Neutrophils # Man Lymphocytes # (Manual) Monocytes # (Manual) PT INR APTT Fibrinogen Heparin Anti-Xa Level POC ABG pH POC ABG pCO2 POC ABG pO2 POC Potassium POC Chloride Sodium Potassium 3.5 L D Chloride 111.2 H Carbon Dioxide 20 L POC BUN BUN 18 H Creatinine Glucose POC Glucose 111 H Calcium 7.0 L Magnesium AST Alkaline Phosphatase Total Creatine Kinase Total Protein Albumin Urine WBC (Auto) Crossmatch 07/04/16 07/04/16 07/04/16 05:44 12:50 14:33 WBC RBC Hgb POC Hgb Hct POC Hct MCH MCHC RDW Plt Count Lymph % (Auto) [place] % (Auto) Lymph # [place] # Baso # Seg Neutrophils % Seg Neuts % (Manual) Lymphocytes % (Manual) Monocytes % (Manual) Nucleated RBC % Seg Neutrophils # Seg Neutrophils # Man Lymphocytes # (Manual) Monocytes # (Manual) PT INR APTT Fibrinogen Heparin Anti-Xa Level POC ABG pH 7.465 H 7.468 H POC ABG pCO2 29.5 L 29.1 L 33.1 L POC ABG pO2 110 H 39 L POC Potassium POC Chloride Sodium Potassium Chloride Carbon Dioxide POC BUN BUN Creatinine Glucose POC Glucose Calcium Magnesium AST Alkaline Phosphatase Total Creatine Kinase Total Protein Albumin Urine WBC (Auto) Crossmatch 07/04/16 07/05/16 07/05/16 16:49 00:20 04:19 WBC 16.2 H RBC 3.44 L Hgb POC Hgb Hct POC Hct MCH MCHC RDW Plt Count Lymph % (Auto) 5.2 L [place] % (Auto) 7.5 H Lymph # 0.8 L [place] # 1.2 H Baso # Seg Neutrophils % 86.5 H Seg Neuts % (Manual) Lymphocytes % (Manual) Monocytes % (Manual) Nucleated RBC % Seg Neutrophils # 14.0 H Seg Neutrophils # Man Lymphocytes # (Manual) Monocytes # (Manual) PT INR APTT Fibrinogen Heparin Anti-Xa Level POC ABG pH POC ABG pCO2 31.1 L POC ABG pO2 110 H POC Potassium POC Chloride Sodium Potassium Chloride Carbon Dioxide POC BUN BUN Creatinine Glucose POC Glucose 168 H Calcium Magnesium AST Alkaline Phosphatase Total Creatine Kinase Total Protein Albumin Urine WBC (Auto) Crossmatch 07/05/16 07/05/16 07/05/16 04:19 06:01 09:54 WBC RBC Hgb POC Hgb Hct POC Hct MCH MCHC RDW Plt Count Lymph % (Auto) [place] % (Auto) Lymph # [place] # Baso # Seg Neutrophils % Seg Neuts % (Manual) Lymphocytes % (Manual) Monocytes % (Manual) Nucleated RBC % Seg Neutrophils # Seg Neutrophils # Man Lymphocytes # (Manual) Monocytes # (Manual) PT INR APTT Fibrinogen Heparin Anti-Xa Level POC ABG pH POC ABG pCO2 POC ABG pO2 POC Potassium POC Chloride Sodium 146 H Potassium 3.5 L Chloride 109.1 H Carbon Dioxide POC BUN BUN Creatinine Glucose 135 H POC Glucose 146 H 284 H Calcium 7.8 L Magnesium AST Alkaline Phosphatase Total Creatine Kinase Total Protein Albumin Urine WBC (Auto) Crossmatch 07/05/16 07/06/16 07/06/16 13:35 04:40 04:40 WBC 17.7 H RBC 3.32 L Hgb 9.8 L POC Hgb Hct 29.8 L POC Hct MCH MCHC RDW Plt Count Lymph % (Auto) [place] % (Auto) Lymph # [place] # Baso # Seg Neutrophils % Seg Neuts % (Manual) 85.0 H Lymphocytes % (Manual) 4.0 L Monocytes % (Manual) 10.0 H Nucleated RBC % Seg Neutrophils # Seg Neutrophils # Man 15.0 H Lymphocytes # (Manual) 0.7 L Monocytes # (Manual) 1.8 H PT INR APTT Fibrinogen Heparin Anti-Xa Level POC ABG pH POC ABG pCO2 POC ABG pO2 POC Potassium POC Chloride Sodium Potassium 3.5 L Chloride Carbon Dioxide 21 L POC BUN BUN Creatinine Glucose 108 H POC Glucose 130 H Calcium 7.8 L Magnesium AST Alkaline Phosphatase Total Creatine Kinase Total Protein Albumin Urine WBC (Auto) Crossmatch 07/06/16 07/06/16 07/06/16 07:46 11:49 15:31 WBC RBC Hgb POC Hgb Hct POC Hct MCH MCHC RDW Plt Count Lymph % (Auto) [place] % (Auto) Lymph # [place] # Baso # Seg Neutrophils % Seg Neuts % (Manual) Lymphocytes % (Manual) Monocytes % (Manual) Nucleated RBC % Seg Neutrophils # Seg Neutrophils # Man Lymphocytes # (Manual) Monocytes # (Manual) PT INR APTT Fibrinogen Heparin Anti-Xa Level POC ABG pH POC ABG pCO2 POC ABG pO2 POC Potassium POC Chloride Sodium Potassium Chloride Carbon Dioxide POC BUN BUN Creatinine Glucose POC Glucose 149 H 146 H 135 H Calcium Magnesium AST Alkaline Phosphatase Total Creatine Kinase Total Protein Albumin Urine WBC (Auto) Crossmatch 07/06/16 07/06/16 07/07/16 17:17 20:59 04:53 WBC 15.5 H RBC 3.55 L Hgb POC Hgb Hct POC Hct MCH MCHC RDW Plt Count Lymph % (Auto) 4.9 L [place] % (Auto) Lymph # 0.8 L [place] # 0.9 H Baso # Seg Neutrophils % 87.9 H Seg Neuts % (Manual) Lymphocytes % (Manual) Monocytes % (Manual) Nucleated RBC % Seg Neutrophils # 13.7 H Seg Neutrophils # Man Lymphocytes # (Manual) Monocytes # (Manual) PT INR APTT Fibrinogen Heparin Anti-Xa Level POC ABG pH POC ABG pCO2 POC ABG pO2 POC Potassium POC Chloride Sodium Potassium Chloride Carbon Dioxide POC BUN BUN Creatinine Glucose POC Glucose 140 H Calcium Magnesium AST Alkaline Phosphatase Total Creatine Kinase Total Protein Albumin Urine WBC (Auto) 67.0 H Crossmatch 07/07/16 07/07/16 07/07/16 04:53 06:13 07:15 WBC RBC Hgb POC Hgb Hct POC Hct MCH MCHC RDW Plt Count Lymph % (Auto) [place] % (Auto) Lymph # [place] # Baso # Seg Neutrophils % Seg Neuts % (Manual) Lymphocytes % (Manual) Monocytes % (Manual) Nucleated RBC % Seg Neutrophils # Seg Neutrophils # Man Lymphocytes # (Manual) Monocytes # (Manual) PT INR APTT Fibrinogen Heparin Anti-Xa Level POC ABG pH POC ABG pCO2 POC ABG pO2 POC Potassium POC Chloride Sodium Potassium 3.4 L Chloride Carbon Dioxide POC BUN BUN Creatinine Glucose 104 H POC Glucose 122 H 134 H Calcium 8.0 L Magnesium AST Alkaline Phosphatase Total Creatine Kinase Total Protein Albumin Urine WBC (Auto) Crossmatch 07/07/16 07/07/16 07/07/16 08:06 10:31 12:08 WBC RBC Hgb POC Hgb Hct POC Hct MCH MCHC RDW Plt Count Lymph % (Auto) [place] % (Auto) Lymph # [place] # Baso # Seg Neutrophils % Seg Neuts % (Manual) Lymphocytes % (Manual) Monocytes % (Manual) Nucleated RBC % Seg Neutrophils # Seg Neutrophils # Man Lymphocytes # (Manual) Monocytes # (Manual) PT INR APTT Fibrinogen Heparin Anti-Xa Level POC ABG pH POC ABG pCO2 POC ABG pO2 POC Potassium POC Chloride Sodium Potassium Chloride Carbon Dioxide POC BUN BUN Creatinine Glucose 111 H POC Glucose 145 H 159 H Calcium 7.9 L Magnesium AST 53 H Alkaline Phosphatase 164 H Total Creatine Kinase Total Protein 6.2 L Albumin 1.4 L Urine WBC (Auto) Crossmatch 07/07/16 07/07/16 07/07/16 13:57 16:44 23:31 WBC RBC Hgb 9.7 L POC Hgb Hct 30.1 L POC Hct MCH MCHC RDW Plt Count Lymph % (Auto) [place] % (Auto) Lymph # [place] # Baso # Seg Neutrophils % Seg Neuts % (Manual) Lymphocytes % (Manual) Monocytes % (Manual) Nucleated RBC % Seg Neutrophils # Seg Neutrophils # Man Lymphocytes # (Manual) Monocytes # (Manual) PT INR APTT Fibrinogen Heparin Anti-Xa Level POC ABG pH POC ABG pCO2 POC ABG pO2 POC Potassium POC Chloride Sodium Potassium Chloride Carbon Dioxide POC BUN BUN Creatinine Glucose POC Glucose 173 H 163 H Calcium Magnesium AST Alkaline Phosphatase Total Creatine Kinase Total Protein Albumin Urine WBC (Auto) Crossmatch 07/08/16 07/08/16 07/08/16 07:27 12:16 12:50 WBC RBC Hgb POC Hgb Hct POC Hct MCH MCHC RDW Plt Count Lymph % (Auto) [place] % (Auto) Lymph # [place] # Baso # Seg Neutrophils % Seg Neuts % (Manual) Lymphocytes % (Manual) Monocytes % (Manual) Nucleated RBC % Seg Neutrophils # Seg Neutrophils # Man Lymphocytes # (Manual) Monocytes # (Manual) PT INR APTT Fibrinogen Heparin Anti-Xa Level POC ABG pH POC ABG pCO2 POC ABG pO2 POC Potassium POC Chloride Sodium Potassium Chloride Carbon Dioxide 21 L POC BUN BUN Creatinine Glucose 126 H POC Glucose 149 H 150 H Calcium 7.5 L Magnesium AST Alkaline Phosphatase Total Creatine Kinase Total Protein Albumin Urine WBC (Auto) Crossmatch 07/08/16 07/08/16 07/09/16 16:46 21:45 07:31 WBC 11.4 H RBC Hgb POC Hgb Hct POC Hct MCH MCHC RDW 15.6 H Plt Count Lymph % (Auto) 10.6 L [place] % (Auto) 9.0 H Lymph # [place] # 1.0 H Baso # Seg Neutrophils % 79.2 H Seg Neuts % (Manual) Lymphocytes % (Manual) Monocytes % (Manual) Nucleated RBC % Seg Neutrophils # 9.0 H Seg Neutrophils # Man Lymphocytes # (Manual) Monocytes # (Manual) PT INR APTT Fibrinogen Heparin Anti-Xa Level POC ABG pH POC ABG pCO2 POC ABG pO2 POC Potassium POC Chloride Sodium Potassium Chloride Carbon Dioxide POC BUN BUN Creatinine Glucose POC Glucose 143 H 134 H Calcium Magnesium AST Alkaline Phosphatase Total Creatine Kinase Total Protein Albumin Urine WBC (Auto) Crossmatch 07/09/16 07:31 WBC RBC Hgb POC Hgb Hct POC Hct MCH MCHC RDW Plt Count Lymph % (Auto) [place] % (Auto) Lymph # [place] # Baso # Seg Neutrophils % Seg Neuts % (Manual) Lymphocytes % (Manual) Monocytes % (Manual) Nucleated RBC % Seg Neutrophils # Seg Neutrophils # Man Lymphocytes # (Manual) Monocytes # (Manual) PT INR APTT Fibrinogen Heparin Anti-Xa Level POC ABG pH POC ABG pCO2 POC ABG pO2 POC Potassium POC Chloride Sodium Potassium Chloride Carbon Dioxide POC BUN BUN Creatinine Glucose 117 H POC Glucose Calcium 7.5 L Magnesium AST Alkaline Phosphatase 136 H Total Creatine Kinase 297 H Total Protein 5.4 L Albumin 1.5 L Urine WBC (Auto) Crossmatch Chest x-ray: image reviewed
[2016-07-09] MEDS: PROTONIX PO SCH (10:45)
[2016-07-09] MEDS: PLAVIX PO SCH (10:45)
[2016-07-09] MEDS: FERROUS SULFATE PO SCH (10:45)
[2016-07-09] MEDS: TENORMIN PO SCH (10:45)
[2016-07-09] MEDS: K-DUR PO SCH (10:45)
[2016-07-09] MEDS: BABY ASPIRIN PO SCH (10:45)
[2016-07-09 10:46] LABS: Basophils % (Auto) 0.5 % (0.0-1.8); Eosinophils % (Auto) 0.6 % (0.0-4.3); Mean Corpuscular HGB Conc 33 % (30-34); Mean Corpuscular Hemoglobin 30 pg (28-32); Mean Corpuscular Volume 91 fl (79-97); Platelet Count 284 K/mm3 (140-440); Red Blood Count 1.95 M/mm3 (3.65-5.03); Red Cell Distribution Width 15.5 % (13.2-15.2); White Blood Count 13.4 K/mm3 (4.5-11.0)
[2016-07-09 11:08] LABS: Hematocrit 17.7 % (30.3-42.9); Hemoglobin 5.8 gm/dl (10.1-14.3)
[2016-07-09] MEDS ORDERED: NACL 0.9% 500 ML 500 ML IV ONE (11:08)
[2016-07-09 11:09] LABS: White Blood Count TNR K/mm3 (4.5-11.0)
[2016-07-09 11:10] LABS: Basophils % (Auto) TNR % (0.0-1.8); Eosinophils % (Auto) TNR % (0.0-4.3); Mean Corpuscular HGB Conc TNR % (30-34); Mean Corpuscular Hemoglobin TNR pg (28-32); Mean Corpuscular Volume TNR fl (79-97); Mean Platelet Volume TNR fl (6-12); Platelet Count TNR K/mm3 (140-440); Red Cell Distribution Width TNR % (13.2-15.2)
[2016-07-09 11:11] LABS: Diff Status TNR
[2016-07-09] MEDS ORDERED: NACL 0.9% 250ML 250 ML ONE (14:07)
--- NOTE | 2016-07-09 17:08 | Progress Note ---
Assessment and Plan [age]-year-old female was multiple vascular interventions, recent left groin washout and ligation of femoropopliteal graft. Patient will need most likely left below versus above-knee amputation. We will look at the left groin wound site at the next dressing change to assess if patient needs any further washouts. Residual synthetic material in the left groin was covered by a sartorius muscle flap, however remains a potential source of infection. She will continue treatment with IV antibiotics as per infectious disease. Current acute issue is severe anemia hemoglobin of 5 without obvious bleeding source. CT angiogram of abdomen and pelvis was ordered look into retroperitoneum as a potential source. Patient has only 22-gauge IV access which is not sufficient for IV contrast injection during CT scan. She may need PICC line insertion before CT. Subjective Date of service: 07/09/16 Principal diagnosis: Acute Hypoxemic Respiratory Failure; s/p cardiopulmonary arrest Interval history: Patient seen at the bedside today requiring a lot of pain medication due to left leg pain. Sister is at the bedside. Patient was febrile overnight, currently afebrile 98.8 On exam left lower leg is cool from just below knee. Her left groin with vac dressing in place, no surrounding erythema noted. Right lower extremity is warm , right groin incision c/d/i with slight serosanguinous staining. Objective - Constitutional Vitals: Vital Signs - 12hr 07/09/16 07/09/16 07/09/16 06:00 06:01 07:00 Temperature Pulse Rate 125 H 124 H 120 H Pulse Rate [ Apical] Pulse Rate [ From Monitor] Respiratory 18 16 Rate Blood Pressure 106/63 106/63 108/65 O2 Sat by Pulse 99 100 97 Oximetry 07/09/16 07/09/16 07/09/16 07:22 07:45 08:00 Temperature 98.9 F Pulse Rate 115 H 113 H Pulse Rate [ 116 H Apical] Pulse Rate [ 116 H From Monitor] Respiratory 20 17 Rate Blood Pressure 108/65 109/65 O2 Sat by Pulse 97 100 100 Oximetry 07/09/16 07/09/16 07/09/16 09:00 09:26 10:00 Temperature Pulse Rate 113 H 112 H 113 H Pulse Rate [ Apical] Pulse Rate [ From Monitor] Respiratory 18 17 16 Rate Blood Pressure 127/69 127/69 112/60 O2 Sat by Pulse 100 100 100 Oximetry 07/09/16 07/09/16 07/09/16 10:45 11:00 12:00 Temperature 101.2 F H Pulse Rate 115 H 117 H 120 H Pulse Rate [ Apical] Pulse Rate [ From Monitor] Respiratory 17 16 Rate Blood Pressure 112/60 112/68 112/65 O2 Sat by Pulse 100 Oximetry 07/09/16 07/09/16 07/09/16 13:00 14:00 15:00 Temperature Pulse Rate 122 H 116 H 113 H Pulse Rate [ 114 H Apical] Pulse Rate [ From Monitor] Respiratory 15 18 14 Rate Blood Pressure 112/65 112/65 112/65 O2 Sat by Pulse 100 100 99 Oximetry 07/09/16 07/09/16 07/09/16 15:15 15:28 15:30 Temperature 99.5 F 99.9 F H Pulse Rate 113 H 112 H 112 H Pulse Rate [ Apical] Pulse Rate [ From Monitor] Respiratory 22 20 20 Rate Blood Pressure 114/58 114/58 113/52 O2 Sat by Pulse 100 100 Oximetry 07/09/16 07/09/16 07/09/16 15:57 16:04 16:19 Temperature 99.4 F Pulse Rate 110 H 110 H Pulse Rate [ 110 H Apical] Pulse Rate [ From Monitor] Respiratory 20 17 Rate Blood Pressure 119/58 O2 Sat by Pulse 100 Oximetry 07/09/16 16:30 Temperature 99.4 F Pulse Rate 107 H Pulse Rate [ Apical] Pulse Rate [ From Monitor] Respiratory 20 Rate Blood Pressure 120/50 O2 Sat by Pulse Oximetry General appearance: Present: no acute distress - Neck Neck: supple - Respiratory Respiratory effort: normal Respiratory: bilateral: CTA - Breasts Breasts: deferred - Cardiovascular Heart Sounds: Present: S1 & S2 Extremities: abnormal (local extremity cold below-knee, left groin VAC dressing , right foot warm, right groin incision c/d/i) - Gastrointestinal General gastrointestinal: Present: deferred Rectal Exam: deferred - Labs CBC & Chem 7: 07/09/16 09:55 07/09/16 07:31 Labs: Abnormal lab results 07/07/16 07/08/16 07/08/16 Range/Units 08:06 16:46 21:45 WBC (4.5-11.0) K/mm3 RBC (3.65-5.03) M/mm3 Hgb (10.1-14.3) gm/dl Hct (30.3-42.9) % RDW (13.2-15.2) % Lymph % (Auto) (13.4-35.0) % [place] % (Auto) (0.0-7.3) % [place] # (0.0-0.8) K/mm3 Seg Neutrophils % (40.0-70.0) % Seg Neutrophils # (1.8-7.7) K/mm3 Glucose (65-100) mg/dL POC Glucose 143 H 134 H (70-105) Calcium (8.4-10.2) mg/dL Alkaline Phosphatase (35-129) units/L Lactate Dehydrogenase (91-180) units/L Total Creatine Kinase (30-135) units/L Total Protein (6.3-8.2) g/dL Albumin (3.9-5) g/dL Crossmatch See Detail 07/09/16 07/09/16 07/09/16 Range/Units 07:31 07:31 09:55 WBC 13.4 H (4.5-11.0) K/mm3 RBC 1.95 L (3.65-5.03) M/mm3 Hgb 5.8 L* D (10.1-14.3) gm/dl Hct 17.7 L* D (30.3-42.9) % RDW 15.5 H (13.2-15.2) % Lymph % (Auto) 9.4 L (13.4-35.0) % [place] % (Auto) 8.3 H (0.0-7.3) % [place] # 1.1 H (0.0-0.8) K/mm3 Seg Neutrophils % 81.2 H (40.0-70.0) % Seg Neutrophils # 10.9 H (1.8-7.7) K/mm3 Glucose 117 H (65-100) mg/dL POC Glucose (70-105) Calcium 7.5 L (8.4-10.2) mg/dL Alkaline Phosphatase 136 H (35-129) units/L Lactate Dehydrogenase 285 H (91-180) units/L Total Creatine Kinase 297 H (30-135) units/L Total Protein 5.4 L (6.3-8.2) g/dL Albumin 1.5 L (3.9-5) g/dL Crossmatch
--- NOTE | 2016-07-09 17:58 | Operative Report ---
Operative Report Operative Report: EXAM: 1. Ultrasound-guided puncture of the right internal jugular vein 2. Placement of a right internal jugular vein nontunneled noncuffed catheter. DATE: 07/09/16 with INDICATION: 55-year-old female requiring blood transfusion and CT scan with no IV access available except for a 22-gauge IV. Needs IV access. MEDICATIONS: Local anesthetic (1% lidocaine). [employer]: ULI MCCABE MD DEVICES: 7F triple lumen nontunneled noncuffed catheter CONTRAST: None PROCEDURE: The risks, benefits, and alternatives were discussed and informed consent was obtained. The patient's right internal jugular vein was assessed with ultrasound at bedside and determined to be patent prior to procedure. The right internal jugular vein was patent. The patient was prepped and draped in a sterile fashion. The puncture site was anesthetized. Under sonographic guidance, the right internal jugular vein was punctured with a 18-gauge micropuncture needle and a 0.035 inch wire was advanced through the needle. Over the 0.035 inch wire, dilatation was performed. The catheter was advanced over the wire. 2-0 silk suture was used to secure the catheter. The catheter was charged with saline. Biopatch and tegaderm were applied. Chest x ray was ordered and the patient tolerated the procedure without immediate post procedual complication. Chest x ray demonstrated the catheter was in the IVC. It was retracted 5 cm after the sutures were cut and then resutured in placed. Sterile dressing reapplied. Repeat chest x ray demonstrated catheter in the cavoatrial junction. FNDINGS: 1. Ultrasound documented patency of the right internal jugular vein. The vessel was accessed under direct ultrasound guidance. 2. On the post procedural chest x ray, the catheter tip is appropriately placed in the IVC. Repeat chest x ray demonstrated catheter in the cavoatrial junction. IMPRESSION: 1. Successful ultrasound guided bedside placement of a right internal jugular vein nontunneled noncuffed triple lumen catheter.
--- NOTE | 2016-07-09 21:03 | XRay Report ---
FINAL REPORT PROCEDURE: XR CHEST 1V AP TECHNIQUE: Chest radiograph anteroposterior view. CPT 67471 HISTORY: line placement COMPARISON: No prior studies are available for comparison. FINDINGS: Heart: Normal. Mediastinum/Vessels: Normal. Lungs/Pleural space: There are left perihilar infiltrates and a small left pleural effusion. Lungs are otherwise well-expanded. There are no pneumothoraces.. Bony thorax: No acute osseous abnormality. Life support devices: There is a right-sided central venous catheter. The tip is in the superior vena cava/right atrial junction.. IMPRESSION: The heart size is normal.. There are left perihilar infiltrates and a small left pleural effusion. Lungs are otherwise well-expanded. There are no pneumothoraces.. There is a right-sided central venous catheter. The tip is in the superior vena cava/right atrial junction..
[2016-07-09] MEDS: THERMAZENE 50 GRAM TP SCH (21:52)
[2016-07-10] MEDS: ZOSYN/NS 4.5GM/100ML 100 ML IV SCH ×3 (04:14→19:51)
[2016-07-10 04:51] LABS: Basophils % (Auto) 0.5 % (0.0-1.8); Eosinophils % (Auto) 0.2 % (0.0-4.3); Hematocrit 26.2 % (30.3-42.9); Hemoglobin 8.8 gm/dl (10.1-14.3); Mean Corpuscular HGB Conc 34 % (30-34); Mean Corpuscular Hemoglobin 29 pg (28-32); Mean Corpuscular Volume 87 fl (79-97); Platelet Count 238 K/mm3 (140-440); Red Cell Distribution Width 15.4 % (13.2-15.2); White Blood Count 15.1 K/mm3 (4.5-11.0)
[2016-07-10] MEDS: MORPHINE PCA 30MG/30ML IV SCH ×2 (07:21→20:01)
[2016-07-10] MEDS ORDERED: NACL ONE (07:36)
--- NOTE | 2016-07-10 09:12 | XRay Report ---
AP CHEST: HISTORY: Central line placement. FINDINGS: A right IJ triple-lumen catheter has been inserted which terminates slightly low within the right atrium and possibly within the intrahepatic IVC. Please correlate with the image and consider retraction by 5 cm. Left lower lobe opacity is unchanged. The left upper lobe and right lung remain clear. Heart size is normal. No pneumothorax. IMPRESSION: Right IJ central line placement, as described. No change in the left lower lobe opacity.
[2016-07-10] MEDS: K-DUR PO SCH (09:39)
[2016-07-10] MEDS: PROTONIX PO SCH (09:39)
[2016-07-10] MEDS: BABY ASPIRIN PO SCH (09:39)
[2016-07-10] MEDS: TENORMIN PO SCH (09:40)
[2016-07-10] MEDS: PLAVIX PO SCH (09:40)
[2016-07-10] MEDS: FERROUS SULFATE PO SCH (09:40)
[2016-07-10] MEDS: THERMAZENE 50 GRAM TP SCH (10:30)
[2016-07-10] MEDS: D5W/0.45% NACL/KCL 20 MEQ 1,000 ML IV SCH ×2 (10:38→23:57)
[2016-07-10] MEDS: SENOKOT S PO SCH ×2 (12:27→21:05)
--- NOTE | 2016-07-10 12:40 | Progress Note ---
Assessment and Plan - Patient Problems (1) Peripheral vascular disease of extremity Current Visit: Yes Status: Acute Plan to address problem: - may ultimately need amputation - vascular surgery managing - follow CTA abd/pelvis/lower extremities (2) Acute respiratory failure Current Visit: Yes Status: Acute Plan to address problem: - on room air but need to r/o hemothorax which will necessitate further intervention - get thoracentesis (3) Anemia Current Visit: Yes Status: Acute Plan to address problem: - follow H&H - evaluating source - LDH unremarkable - Likely ABLA component (4) Altered mental status Current Visit: Yes Status: Acute Plan to address problem: - resolved Subjective Date of service: 07/10/16 Principal diagnosis: Acute Hypoxemic Respiratory Failure; s/p cardiopulmonary arrest Interval history: Seen and examined at bedside; 24 hour events reviewed; nursing and respiratory care staff consulted; no adverse overnight events reported to me; complains of constipation still; denies acute chest pains and remains on room air but surprisingly CT abd reveals left pleural effusion; no gross bleeding noted Objective Vital Signs - 12hr 07/10/16 07/10/16 07/10/16 01:00 01:56 02:00 Temperature Pulse Rate 103 H 105 H 102 H Pulse Rate [ From Monitor] Respiratory 15 20 15 Rate Blood Pressure 136/65 134/59 140/53 O2 Sat by Pulse 98 98 99 Oximetry 07/10/16 07/10/16 07/10/16 02:01 02:14 02:27 Temperature Pulse Rate 100 H Pulse Rate [ 104 H From Monitor] Respiratory 15 15 17 Rate Blood Pressure 140/53 O2 Sat by Pulse 99 Oximetry 07/10/16 07/10/16 07/10/16 03:00 03:48 03:57 Temperature Pulse Rate 102 H 105 H Pulse Rate [ From Monitor] Respiratory 13 15 18 Rate Blood Pressure 140/53 134/83 O2 Sat by Pulse 100 99 Oximetry 07/10/16 07/10/16 07/10/16 04:00 04:15 04:18 Temperature 98.4 F Pulse Rate 103 H 102 H Pulse Rate [ 102 H From Monitor] Respiratory 14 17 17 Rate Blood Pressure 127/48 127/48 O2 Sat by Pulse 100 98 98 Oximetry 07/10/16 07/10/16 07/10/16 04:27 05:00 06:00 Temperature Pulse Rate 108 H 105 H 105 H Pulse Rate [ From Monitor] Respiratory 12 15 Rate Blood Pressure 139/58 134/67 O2 Sat by Pulse 99 98 Oximetry 07/10/16 07/10/16 07/10/16 06:40 07:00 07:17 Temperature Pulse Rate 106 H 107 H Pulse Rate [ From Monitor] Respiratory 15 15 15 Rate Blood Pressure 133/61 113/66 O2 Sat by Pulse 98 100 Oximetry 07/10/16 07/10/16 07/10/16 07:21 08:00 09:00 Temperature 99.4 F Pulse Rate 106 H 117 H Pulse Rate [ From Monitor] Respiratory 15 14 Rate Blood Pressure 110/53 O2 Sat by Pulse 99 Oximetry 07/10/16 07/10/16 07/10/16 09:40 10:00 11:48 Temperature 98.9 F Pulse Rate 110 H Pulse Rate [ 113 H From Monitor] Respiratory 16 Rate Blood Pressure 118/62 O2 Sat by Pulse 99 Oximetry Constitutional: no acute distress, alert Eyes: non-icteric ENT: oropharynx moist Neck: supple, no lymphadenopathy Effort: normal Ascultation: Bilateral: clear, diminished breath sounds (L>R), rhonchi ( posterior bases) Cardiovascular: regular rate and rhythm Gastrointestinal: normoactive bowel sounds, soft, non-tender, non-distended Integumentary: other (weak LLExt) Extremities: no cyanosis, edema, other (LLExt cool; no obvious cyanosis) Neurologic: normal mental status, non-focal exam, pupils equal and round Psychiatric: mood appropriate, affect normal CBC and BMP: 07/10/16 04:10 07/09/16 07:31 ABG, PT/INR, D-dimer: ABG POC ABG pH 7.436 (7.35-7.45) 07/04/16 16:49 POC ABG pCO2 31.1 (35-45) L 07/04/16 16:49 POC ABG pO2 110 (80-105) H 07/04/16 16:49 POC ABG HCO3 20.9 07/04/16 16:49 POC ABG Total CO2 22 07/04/16 16:49 POC ABG O2 Sat 99 07/04/16 16:49 PT/INR, D-dimer PT 19.9 Sec. (12.2-14.9) H 06/26/16 22:57 INR 1.69 (0.87-1.13) H 06/26/16 22:57 Abnormal lab findings: Abnormal Labs 06/13/16 06/13/16 06/13/16 09:45 09:45 09:45 WBC RBC Hgb POC Hgb Hct POC Hct MCH 25 L MCHC RDW 15.8 H Plt Count Lymph % (Auto) [place] % (Auto) 8.1 H Lymph # [place] # Baso # Seg Neutrophils % Seg Neuts % (Manual) Lymphocytes % (Manual) Monocytes % (Manual) Nucleated RBC % Seg Neutrophils # Seg Neutrophils # Man Lymphocytes # (Manual) Monocytes # (Manual) PT INR APTT Fibrinogen 522 H Heparin Anti-Xa Level POC ABG pH POC ABG pCO2 POC ABG pO2 POC Potassium POC Chloride Sodium Potassium Chloride Carbon Dioxide POC BUN BUN Creatinine Glucose POC Glucose Calcium 10.3 H Magnesium AST Alkaline Phosphatase Lactate Dehydrogenase Total Creatine Kinase Total Protein Albumin Urine WBC (Auto) Crossmatch 06/13/16 06/13/16 06/13/16 09:45 20:14 20:15 WBC RBC Hgb POC Hgb Hct POC Hct MCH MCHC RDW Plt Count Lymph % (Auto) [place] % (Auto) Lymph # [place] # Baso # Seg Neutrophils % Seg Neuts % (Manual) Lymphocytes % (Manual) Monocytes % (Manual) Nucleated RBC % Seg Neutrophils # Seg Neutrophils # Man Lymphocytes # (Manual) Monocytes # (Manual) PT INR APTT 103.8 H* Fibrinogen Heparin Anti-Xa Level 0.72 H POC ABG pH POC ABG pCO2 POC ABG pO2 POC Potassium POC Chloride Sodium Potassium Chloride Carbon Dioxide POC BUN BUN Creatinine Glucose POC Glucose Calcium Magnesium AST Alkaline Phosphatase Lactate Dehydrogenase Total Creatine Kinase Total Protein Albumin Urine WBC (Auto) Crossmatch See Detail 06/14/16 06/14/16 06/14/16 07:44 10:18 19:09 WBC RBC Hgb POC Hgb Hct POC Hct MCH 26 L MCHC RDW 15.8 H Plt Count Lymph % (Auto) [place] % (Auto) 9.1 H Lymph # [place] # Baso # Seg Neutrophils % Seg Neuts % (Manual) Lymphocytes % (Manual) Monocytes % (Manual) Nucleated RBC % Seg Neutrophils # Seg Neutrophils # Man Lymphocytes # (Manual) Monocytes # (Manual) PT INR APTT Fibrinogen Heparin Anti-Xa Level 0.76 H POC ABG pH POC ABG pCO2 POC ABG pO2 POC Potassium POC Chloride Sodium Potassium Chloride Carbon Dioxide POC BUN BUN Creatinine Glucose POC Glucose 106 H Calcium Magnesium AST Alkaline Phosphatase Lactate Dehydrogenase Total Creatine Kinase Total Protein Albumin Urine WBC (Auto) Crossmatch 06/15/16 06/15/16 06/15/16 04:43 04:43 22:49 WBC RBC Hgb 9.2 L POC Hgb Hct 28.4 L POC Hct MCH MCHC RDW Plt Count Lymph % (Auto) [place] % (Auto) Lymph # [place] # Baso # Seg Neutrophils % Seg Neuts % (Manual) Lymphocytes % (Manual) Monocytes % (Manual) Nucleated RBC % Seg Neutrophils # Seg Neutrophils # Man Lymphocytes # (Manual) Monocytes # (Manual) PT INR APTT Fibrinogen Heparin Anti-Xa Level 0.85 H POC ABG pH POC ABG pCO2 POC ABG pO2 POC Potassium POC Chloride Sodium Potassium Chloride Carbon Dioxide POC BUN BUN Creatinine Glucose POC Glucose 134 H Calcium Magnesium AST Alkaline Phosphatase Lactate Dehydrogenase Total Creatine Kinase Total Protein Albumin Urine WBC (Auto) Crossmatch 06/16/16 06/16/16 06/16/16 08:55 08:55 14:21 WBC RBC Hgb POC Hgb 5.8 L Hct POC Hct 17 L MCH MCHC RDW Plt Count Lymph % (Auto) [place] % (Auto) Lymph # [place] # Baso # Seg Neutrophils % Seg Neuts % (Manual) Lymphocytes % (Manual) Monocytes % (Manual) Nucleated RBC % Seg Neutrophils # Seg Neutrophils # Man Lymphocytes # (Manual) Monocytes # (Manual) PT INR APTT 20.0 L Fibrinogen Heparin Anti-Xa Level POC ABG pH POC ABG pCO2 POC ABG pO2 POC Potassium 2.9 L POC Chloride Sodium Potassium Chloride Carbon Dioxide POC BUN 7 L BUN Creatinine Glucose POC Glucose 249 H Calcium Magnesium AST Alkaline Phosphatase Lactate Dehydrogenase Total Creatine Kinase Total Protein Albumin Urine WBC (Auto) Crossmatch See Detail 06/16/16 06/16/16 06/16/16 16:55 17:41 17:48 WBC RBC Hgb POC Hgb 8.8 L Hct POC Hct 26 L < 15 L MCH MCHC RDW Plt Count Lymph % (Auto) [place] % (Auto) Lymph # [place] # Baso # Seg Neutrophils % Seg Neuts % (Manual) Lymphocytes % (Manual) Monocytes % (Manual) Nucleated RBC % Seg Neutrophils # Seg Neutrophils # Man Lymphocytes # (Manual) Monocytes # (Manual) PT INR APTT Fibrinogen Heparin Anti-Xa Level POC ABG pH 7.031 L POC ABG pCO2 POC ABG pO2 475 H POC Potassium 3.2 L POC Chloride 112 H 114 H Sodium Potassium Chloride Carbon Dioxide POC BUN 7 L 7 L BUN Creatinine Glucose POC Glucose 203 H 291 H Calcium Magnesium AST Alkaline Phosphatase Lactate Dehydrogenase Total Creatine Kinase Total Protein Albumin Urine WBC (Auto) Crossmatch 06/16/16 06/16/16 06/16/16 18:07 19:09 20:10 WBC 15.8 H RBC Hgb POC Hgb 6.5 L Hct POC Hct 19 L MCH MCHC RDW Plt Count 38 L Lymph % (Auto) 5.9 L [place] % (Auto) 9.3 H Lymph # 0.9 L [place] # 1.5 H Baso # Seg Neutrophils % 84.6 H Seg Neuts % (Manual) Lymphocytes % (Manual) Monocytes % (Manual) Nucleated RBC % Seg Neutrophils # 13.3 H Seg Neutrophils # Man Lymphocytes # (Manual) Monocytes # (Manual) PT INR APTT Fibrinogen Heparin Anti-Xa Level POC ABG pH POC ABG pCO2 POC ABG pO2 POC Potassium POC Chloride 113 H Sodium Potassium Chloride Carbon Dioxide POC BUN 7 L BUN Creatinine Glucose POC Glucose 263 H 231 H Calcium Magnesium AST Alkaline Phosphatase Lactate Dehydrogenase Total Creatine Kinase Total Protein Albumin Urine WBC (Auto) Crossmatch 06/16/16 06/16/16 06/16/16 20:10 20:18 21:10 WBC RBC Hgb POC Hgb Hct POC Hct MCH MCHC RDW Plt Count Lymph % (Auto) [place] % (Auto) Lymph # [place] # Baso # Seg Neutrophils % Seg Neuts % (Manual) Lymphocytes % (Manual) Monocytes % (Manual) Nucleated RBC % Seg Neutrophils # Seg Neutrophils # Man Lymphocytes # (Manual) Monocytes # (Manual) PT INR APTT Fibrinogen Heparin Anti-Xa Level POC ABG pH 7.236 L 7.280 L POC ABG pCO2 POC ABG pO2 139 H 145 H POC Potassium POC Chloride Sodium Potassium 3.4 L Chloride 114.5 H Carbon Dioxide 17 L D POC BUN BUN Creatinine Glucose 188 H POC Glucose Calcium 6.1 L D Magnesium AST Alkaline Phosphatase Lactate Dehydrogenase Total Creatine Kinase Total Protein Albumin Urine WBC (Auto) Crossmatch 06/16/16 06/17/16 06/17/16 22:53 04:48 05:35 WBC RBC Hgb POC Hgb Hct POC Hct MCH MCHC RDW Plt Count Lymph % (Auto) [place] % (Auto) Lymph # [place] # Baso # Seg Neutrophils % Seg Neuts % (Manual) Lymphocytes % (Manual) Monocytes % (Manual) Nucleated RBC % Seg Neutrophils # Seg Neutrophils # Man Lymphocytes # (Manual) Monocytes # (Manual) PT INR APTT Fibrinogen Heparin Anti-Xa Level POC ABG pH POC ABG pCO2 33.9 L 22.2 L POC ABG pO2 152 H 154 H POC Potassium POC Chloride Sodium 150 H Potassium 3.4 L Chloride 114.2 H Carbon Dioxide 16 L POC BUN BUN Creatinine Glucose 221 H POC Glucose Calcium 7.6 L D Magnesium AST Alkaline Phosphatase Lactate Dehydrogenase Total Creatine Kinase Total Protein Albumin Urine WBC (Auto) Crossmatch 06/17/16 06/18/16 06/18/16 09:22 07:26 08:25 WBC 20.3 H RBC 3.41 L Hgb 9.9 L POC Hgb Hct 29.7 L POC Hct MCH MCHC RDW Plt Count Lymph % (Auto) [place] % (Auto) Lymph # [place] # Baso # Seg Neutrophils % Seg Neuts % (Manual) 81.0 H Lymphocytes % (Manual) 6.0 L Monocytes % (Manual) 12.0 H Nucleated RBC % Seg Neutrophils # Seg Neutrophils # Man 16.4 H Lymphocytes # (Manual) Monocytes # (Manual) 2.4 H PT INR APTT Fibrinogen Heparin Anti-Xa Level POC ABG pH POC ABG pCO2 POC ABG pO2 POC Potassium POC Chloride Sodium Potassium 3.1 L Chloride Carbon Dioxide POC BUN BUN Creatinine Glucose 136 H POC Glucose 141 H Calcium 7.5 L Magnesium AST Alkaline Phosphatase Lactate Dehydrogenase Total Creatine Kinase Total Protein Albumin Urine WBC (Auto) Crossmatch 06/18/16 06/18/16 06/18/16 08:25 11:09 19:40 WBC RBC Hgb 6.5 L D POC Hgb Hct 19.3 L* D POC Hct MCH MCHC RDW Plt Count 131 L Lymph % (Auto) [place] % (Auto) Lymph # [place] # Baso # Seg Neutrophils % Seg Neuts % (Manual) Lymphocytes % (Manual) Monocytes % (Manual) Nucleated RBC % Seg Neutrophils # Seg Neutrophils # Man Lymphocytes # (Manual) Monocytes # (Manual) PT INR APTT Fibrinogen Heparin Anti-Xa Level POC ABG pH 7.490 H POC ABG pCO2 POC ABG pO2 131 H POC Potassium POC Chloride Sodium Potassium Chloride Carbon Dioxide POC BUN BUN Creatinine Glucose POC Glucose 125 H Calcium Magnesium AST Alkaline Phosphatase Lactate Dehydrogenase Total Creatine Kinase Total Protein Albumin Urine WBC (Auto) Crossmatch 06/18/16 06/19/16 06/19/16 21:10 07:07 07:28 WBC 13.6 H RBC 2.17 L Hgb 6.5 L POC Hgb Hct 18.8 L* POC Hct MCH MCHC 35 H RDW Plt Count 131 L Lymph % (Auto) 10.1 L [place] % (Auto) 9.3 H Lymph # [place] # 1.3 H Baso # Seg Neutrophils % 79.7 H Seg Neuts % (Manual) Lymphocytes % (Manual) Monocytes % (Manual) Nucleated RBC % Seg Neutrophils # 10.8 H Seg Neutrophils # Man Lymphocytes # (Manual) Monocytes # (Manual) PT INR APTT Fibrinogen Heparin Anti-Xa Level 0.75 H POC ABG pH POC ABG pCO2 POC ABG pO2 POC Potassium POC Chloride Sodium Potassium 3.5 L Chloride Carbon Dioxide POC BUN BUN Creatinine Glucose 104 H POC Glucose Calcium 7.6 L Magnesium 1.4 L AST Alkaline Phosphatase Lactate Dehydrogenase Total Creatine Kinase Total Protein Albumin Urine WBC (Auto) Crossmatch 06/20/16 06/20/16 06/20/16 04:15 18:15 18:15 WBC 16.6 H RBC 1.19 L Hgb 9.2 L 3.5 L* D POC Hgb Hct 27.5 L D 11.0 L* D POC Hct MCH MCHC RDW Plt Count 138 L Lymph % (Auto) [place] % (Auto) Lymph # [place] # Baso # Seg Neutrophils % Seg Neuts % (Manual) Lymphocytes % (Manual) Monocytes % (Manual) Nucleated RBC % Seg Neutrophils # Seg Neutrophils # Man Lymphocytes # (Manual) Monocytes # (Manual) PT INR APTT Fibrinogen Heparin Anti-Xa Level POC ABG pH POC ABG pCO2 POC ABG pO2 POC Potassium POC Chloride Sodium 146 H Potassium Chloride Carbon Dioxide 14 L D POC BUN BUN Creatinine Glucose 31 L* POC Glucose Calcium 6.7 L Magnesium AST Alkaline Phosphatase Lactate Dehydrogenase Total Creatine Kinase Total Protein Albumin Urine WBC (Auto) Crossmatch 06/20/16 06/20/16 06/20/16 18:15 19:33 19:36 WBC RBC Hgb POC Hgb Hct POC Hct MCH MCHC RDW Plt Count Lymph % (Auto) [place] % (Auto) Lymph # [place] # Baso # Seg Neutrophils % Seg Neuts % (Manual) Lymphocytes % (Manual) Monocytes % (Manual) Nucleated RBC % Seg Neutrophils # Seg Neutrophils # Man Lymphocytes # (Manual) Monocytes # (Manual) PT INR APTT Fibrinogen Heparin Anti-Xa Level POC ABG pH POC ABG pCO2 26.3 L POC ABG pO2 394 H POC Potassium POC Chloride Sodium Potassium Chloride Carbon Dioxide POC BUN BUN Creatinine Glucose POC Glucose 212 H Calcium Magnesium AST Alkaline Phosphatase Lactate Dehydrogenase Total Creatine Kinase Total Protein Albumin Urine WBC (Auto) Crossmatch See Detail 06/20/16 06/20/16 06/21/16 22:01 23:00 00:35 WBC RBC Hgb POC Hgb Hct POC Hct MCH MCHC RDW Plt Count Lymph % (Auto) [place] % (Auto) Lymph # [place] # Baso # Seg Neutrophils % Seg Neuts % (Manual) Lymphocytes % (Manual) Monocytes % (Manual) Nucleated RBC % Seg Neutrophils # Seg Neutrophils # Man Lymphocytes # (Manual) Monocytes # (Manual) PT 21.3 H INR 1.85 H APTT 48.4 H Fibrinogen Heparin Anti-Xa Level POC ABG pH POC ABG pCO2 POC ABG pO2 POC Potassium POC Chloride Sodium Potassium Chloride Carbon Dioxide POC BUN BUN Creatinine Glucose POC Glucose 149 H 147 H Calcium Magnesium AST Alkaline Phosphatase Lactate Dehydrogenase Total Creatine Kinase Total Protein Albumin Urine WBC (Auto) Crossmatch 06/21/16 06/21/16 06/21/16 04:30 04:30 06:01 WBC 21.7 H RBC 3.58 L Hgb POC Hgb Hct POC Hct MCH MCHC 35 H RDW Plt Count 116 L Lymph % (Auto) [place] % (Auto) Lymph # [place] # Baso # Seg Neutrophils % Seg Neuts % (Manual) Lymphocytes % (Manual) 8.0 L Monocytes % (Manual) Nucleated RBC % 3.0 H Seg Neutrophils # Seg Neutrophils # Man 13.7 H Lymphocytes # (Manual) Monocytes # (Manual) 1.5 H PT INR APTT Fibrinogen Heparin Anti-Xa Level POC ABG pH 7.541 H POC ABG pCO2 21.1 L POC ABG pO2 108 H POC Potassium POC Chloride Sodium Potassium 3.0 L Chloride 110.3 H Carbon Dioxide 18 L POC BUN BUN 18 H Creatinine Glucose 141 H POC Glucose Calcium 6.4 L Magnesium AST Alkaline Phosphatase Lactate Dehydrogenase Total Creatine Kinase Total Protein Albumin Urine WBC (Auto) Crossmatch 06/21/16 06/21/16 06/21/16 07:00 10:02 17:51 WBC RBC Hgb 8.3 L POC Hgb Hct 24.7 L D POC Hct MCH MCHC RDW Plt Count Lymph % (Auto) [place] % (Auto) Lymph # [place] # Baso # Seg Neutrophils % Seg Neuts % (Manual) Lymphocytes % (Manual) Monocytes % (Manual) Nucleated RBC % Seg Neutrophils # Seg Neutrophils # Man Lymphocytes # (Manual) Monocytes # (Manual) PT INR APTT Fibrinogen Heparin Anti-Xa Level POC ABG pH POC ABG pCO2 POC ABG pO2 POC Potassium POC Chloride Sodium Potassium Chloride Carbon Dioxide POC BUN BUN Creatinine Glucose POC Glucose 132 H 106 H Calcium Magnesium AST Alkaline Phosphatase Lactate Dehydrogenase Total Creatine Kinase Total Protein Albumin Urine WBC (Auto) Crossmatch 06/22/16 06/22/16 06/22/16 05:00 05:00 06:40 WBC 20.6 H RBC 3.54 L Hgb POC Hgb Hct POC Hct MCH MCHC RDW Plt Count 129 L Lymph % (Auto) [place] % (Auto) Lymph # [place] # Baso # Seg Neutrophils % Seg Neuts % (Manual) 87.0 H Lymphocytes % (Manual) 4.0 L Monocytes % (Manual) Nucleated RBC % 4.0 H Seg Neutrophils # Seg Neutrophils # Man 17.9 H Lymphocytes # (Manual) 0.8 L Monocytes # (Manual) 1.2 H PT INR APTT Fibrinogen Heparin Anti-Xa Level POC ABG pH POC ABG pCO2 21.9 L POC ABG pO2 118 H POC Potassium POC Chloride Sodium Potassium Chloride 109.9 H Carbon Dioxide 15 L POC BUN BUN 26 H Creatinine 2.2 H D Glucose POC Glucose Calcium 6.3 L Magnesium AST Alkaline Phosphatase Lactate Dehydrogenase Total Creatine Kinase Total Protein Albumin Urine WBC (Auto) Crossmatch 06/22/16 06/22/16 06/22/16 09:15 09:15 23:17 WBC RBC Hgb 9.1 L POC Hgb Hct 26.9 L POC Hct MCH MCHC RDW Plt Count 116 L Lymph % (Auto) [place] % (Auto) Lymph # [place] # Baso # Seg Neutrophils % Seg Neuts % (Manual) Lymphocytes % (Manual) Monocytes % (Manual) Nucleated RBC % Seg Neutrophils # Seg Neutrophils # Man Lymphocytes # (Manual) Monocytes # (Manual) PT 15.8 H INR 1.27 H APTT Fibrinogen Heparin Anti-Xa Level POC ABG pH POC ABG pCO2 POC ABG pO2 POC Potassium POC Chloride Sodium Potassium Chloride Carbon Dioxide POC BUN BUN Creatinine Glucose POC Glucose 134 H Calcium Magnesium AST Alkaline Phosphatase Lactate Dehydrogenase Total Creatine Kinase Total Protein Albumin Urine WBC (Auto) Crossmatch 06/23/16 06/23/16 06/23/16 05:43 05:43 09:44 WBC 13.8 H RBC 2.70 L Hgb 8.1 L POC Hgb Hct 24.2 L POC Hct MCH MCHC RDW Plt Count 93 L Lymph % (Auto) 6.2 L [place] % (Auto) Lymph # 0.9 L [place] # Baso # Seg Neutrophils % 89.2 H Seg Neuts % (Manual) Lymphocytes % (Manual) Monocytes % (Manual) Nucleated RBC % Seg Neutrophils # 12.3 H Seg Neutrophils # Man Lymphocytes # (Manual) Monocytes # (Manual) PT INR APTT Fibrinogen Heparin Anti-Xa Level POC ABG pH 7.593 H POC ABG pCO2 26.8 L POC ABG pO2 141 H POC Potassium POC Chloride Sodium 146 H Potassium Chloride Carbon Dioxide POC BUN BUN 32 H Creatinine 2.6 H Glucose 142 H POC Glucose Calcium 7.0 L Magnesium AST Alkaline Phosphatase Lactate Dehydrogenase Total Creatine Kinase Total Protein Albumin Urine WBC (Auto) Crossmatch 06/23/16 06/23/16 06/23/16 11:23 17:42 23:32 WBC RBC Hgb POC Hgb Hct POC Hct MCH MCHC RDW Plt Count Lymph % (Auto) [place] % (Auto) Lymph # [place] # Baso # Seg Neutrophils % Seg Neuts % (Manual) Lymphocytes % (Manual) Monocytes % (Manual) Nucleated RBC % Seg Neutrophils # Seg Neutrophils # Man Lymphocytes # (Manual) Monocytes # (Manual) PT INR APTT Fibrinogen Heparin Anti-Xa Level POC ABG pH POC ABG pCO2 POC ABG pO2 POC Potassium POC Chloride Sodium Potassium Chloride Carbon Dioxide POC BUN BUN Creatinine Glucose POC Glucose 138 H 133 H 111 H Calcium Magnesium AST Alkaline Phosphatase Lactate Dehydrogenase Total Creatine Kinase Total Protein Albumin Urine WBC (Auto) Crossmatch 06/24/16 06/24/16 06/24/16 06:27 08:10 08:10 WBC 16.6 H RBC 2.91 L Hgb 8.9 L POC Hgb Hct 26.4 L POC Hct MCH MCHC RDW 15.6 H Plt Count 115 L Lymph % (Auto) 4.6 L [place] % (Auto) Lymph # 0.8 L [place] # 1.0 H Baso # Seg Neutrophils % 89.2 H Seg Neuts % (Manual) Lymphocytes % (Manual) Monocytes % (Manual) Nucleated RBC % Seg Neutrophils # 14.9 H Seg Neutrophils # Man Lymphocytes # (Manual) Monocytes # (Manual) PT INR APTT Fibrinogen Heparin Anti-Xa Level POC ABG pH POC ABG pCO2 POC ABG pO2 POC Potassium POC Chloride Sodium 146 H Potassium Chloride Carbon Dioxide POC BUN BUN 37 H Creatinine 2.9 H Glucose POC Glucose 109 H Calcium 7.5 L Magnesium AST Alkaline Phosphatase Lactate Dehydrogenase Total Creatine Kinase Total Protein Albumin Urine WBC (Auto) Crossmatch 06/24/16 06/24/16 06/24/16 12:05 17:57 22:13 WBC RBC Hgb POC Hgb Hct POC Hct MCH MCHC RDW Plt Count Lymph % (Auto) [place] % (Auto) Lymph # [place] # Baso # Seg Neutrophils % Seg Neuts % (Manual) Lymphocytes % (Manual) Monocytes % (Manual) Nucleated RBC % Seg Neutrophils # Seg Neutrophils # Man Lymphocytes # (Manual) Monocytes # (Manual) PT INR APTT Fibrinogen Heparin Anti-Xa Level POC ABG pH POC ABG pCO2 POC ABG pO2 POC Potassium POC Chloride Sodium Potassium Chloride Carbon Dioxide POC BUN BUN Creatinine Glucose POC Glucose 117 H 124 H 116 H Calcium Magnesium AST Alkaline Phosphatase Lactate Dehydrogenase Total Creatine Kinase Total Protein Albumin Urine WBC (Auto) Crossmatch 06/25/16 06/25/16 06/25/16 06:42 06:49 12:14 WBC RBC Hgb POC Hgb Hct POC Hct MCH MCHC RDW Plt Count Lymph % (Auto) [place] % (Auto) Lymph # [place] # Baso # Seg Neutrophils % Seg Neuts % (Manual) Lymphocytes % (Manual) Monocytes % (Manual) Nucleated RBC % Seg Neutrophils # Seg Neutrophils # Man Lymphocytes # (Manual) Monocytes # (Manual) PT INR APTT Fibrinogen Heparin Anti-Xa Level POC ABG pH POC ABG pCO2 POC ABG pO2 POC Potassium POC Chloride Sodium Potassium Chloride Carbon Dioxide POC BUN BUN 46 H Creatinine 3.6 H Glucose 133 H POC Glucose 137 H 136 H Calcium 7.4 L Magnesium AST Alkaline Phosphatase Lactate Dehydrogenase Total Creatine Kinase Total Protein Albumin Urine WBC (Auto) Crossmatch 06/25/16 06/25/16 06/26/16 16:07 21:32 05:55 WBC RBC Hgb POC Hgb Hct POC Hct MCH MCHC RDW Plt Count Lymph % (Auto) [place] % (Auto) Lymph # [place] # Baso # Seg Neutrophils % Seg Neuts % (Manual) Lymphocytes % (Manual) Monocytes % (Manual) Nucleated RBC % Seg Neutrophils # Seg Neutrophils # Man Lymphocytes # (Manual) Monocytes # (Manual) PT INR APTT Fibrinogen Heparin Anti-Xa Level POC ABG pH POC ABG pCO2 POC ABG pO2 POC Potassium POC Chloride Sodium Potassium Chloride Carbon Dioxide 20 L POC BUN BUN 55 H Creatinine 4.2 H Glucose 120 H POC Glucose 146 H 146 H Calcium 7.5 L Magnesium AST Alkaline Phosphatase Lactate Dehydrogenase Total Creatine Kinase Total Protein Albumin Urine WBC (Auto) Crossmatch 06/26/16 06/26/16 06/26/16 06:30 11:38 16:45 WBC RBC Hgb POC Hgb Hct POC Hct MCH MCHC RDW Plt Count Lymph % (Auto) [place] % (Auto) Lymph # [place] # Baso # Seg Neutrophils % Seg Neuts % (Manual) Lymphocytes % (Manual) Monocytes % (Manual) Nucleated RBC % Seg Neutrophils # Seg Neutrophils # Man Lymphocytes # (Manual) Monocytes # (Manual) PT INR APTT Fibrinogen Heparin Anti-Xa Level POC ABG pH POC ABG pCO2 POC ABG pO2 POC Potassium POC Chloride Sodium Potassium Chloride Carbon Dioxide POC BUN BUN Creatinine Glucose POC Glucose 128 H 143 H 121 H Calcium Magnesium AST Alkaline Phosphatase Lactate Dehydrogenase Total Creatine Kinase Total Protein Albumin Urine WBC (Auto) Crossmatch 06/26/16 06/26/16 06/27/16 22:57 22:57 00:47 WBC RBC Hgb 8.4 L POC Hgb Hct 25.1 L POC Hct MCH MCHC RDW Plt Count Lymph % (Auto) [place] % (Auto) Lymph # [place] # Baso # Seg Neutrophils % Seg Neuts % (Manual) Lymphocytes % (Manual) Monocytes % (Manual) Nucleated RBC % Seg Neutrophils # Seg Neutrophils # Man Lymphocytes # (Manual) Monocytes # (Manual) PT 19.9 H INR 1.69 H APTT Fibrinogen Heparin Anti-Xa Level POC ABG pH POC ABG pCO2 POC ABG pO2 POC Potassium POC Chloride Sodium Potassium Chloride Carbon Dioxide POC BUN BUN Creatinine Glucose POC Glucose 110 H Calcium Magnesium AST Alkaline Phosphatase Lactate Dehydrogenase Total Creatine Kinase Total Protein Albumin Urine WBC (Auto) Crossmatch 06/27/16 06/27/16 06/27/16 05:43 05:43 06:40 WBC RBC Hgb POC Hgb Hct POC Hct MCH MCHC RDW Plt Count Lymph % (Auto) [place] % (Auto) Lymph # [place] # Baso # Seg Neutrophils % Seg Neuts % (Manual) Lymphocytes % (Manual) Monocytes % (Manual) Nucleated RBC % Seg Neutrophils # Seg Neutrophils # Man Lymphocytes # (Manual) Monocytes # (Manual) PT INR APTT Fibrinogen Heparin Anti-Xa Level 2.00 H POC ABG pH POC ABG pCO2 POC ABG pO2 POC Potassium POC Chloride Sodium Potassium Chloride Carbon Dioxide 20 L POC BUN BUN 58 H Creatinine 4.8 H Glucose POC Glucose 109 H Calcium 8.1 L Magnesium AST Alkaline Phosphatase Lactate Dehydrogenase Total Creatine Kinase Total Protein Albumin Urine WBC (Auto) Crossmatch 06/27/16 06/27/16 06/27/16 08:15 16:46 17:47 WBC RBC Hgb POC Hgb Hct POC Hct MCH MCHC RDW Plt Count Lymph % (Auto) [place] % (Auto) Lymph # [place] # Baso # Seg Neutrophils % Seg Neuts % (Manual) Lymphocytes % (Manual) Monocytes % (Manual) Nucleated RBC % Seg Neutrophils # Seg Neutrophils # Man Lymphocytes # (Manual) Monocytes # (Manual) PT INR APTT Fibrinogen Heparin Anti-Xa Level > 2.00 H 1.87 H POC ABG pH POC ABG pCO2 POC ABG pO2 POC Potassium POC Chloride Sodium Potassium Chloride Carbon Dioxide POC BUN BUN Creatinine Glucose POC Glucose 231 H Calcium Magnesium AST Alkaline Phosphatase Lactate Dehydrogenase Total Creatine Kinase Total Protein Albumin Urine WBC (Auto) Crossmatch 06/27/16 06/27/16 06/28/16 21:23 23:54 06:27 WBC RBC Hgb POC Hgb Hct POC Hct MCH MCHC RDW Plt Count Lymph % (Auto) [place] % (Auto) Lymph # [place] # Baso # Seg Neutrophils % Seg Neuts % (Manual) Lymphocytes % (Manual) Monocytes % (Manual) Nucleated RBC % Seg Neutrophils # Seg Neutrophils # Man Lymphocytes # (Manual) Monocytes # (Manual) PT INR APTT Fibrinogen Heparin Anti-Xa Level 1.70 H POC ABG pH POC ABG pCO2 POC ABG pO2 POC Potassium POC Chloride Sodium Potassium Chloride Carbon Dioxide POC BUN BUN 62 H Creatinine 4.5 H Glucose 111 H POC Glucose 122 H Calcium 8.3 L Magnesium AST Alkaline Phosphatase Lactate Dehydrogenase Total Creatine Kinase Total Protein Albumin Urine WBC (Auto) Crossmatch 06/28/16 06/28/16 06/28/16 06:27 11:47 14:14 WBC RBC Hgb 7.7 L POC Hgb Hct 22.9 L POC Hct MCH MCHC RDW Plt Count Lymph % (Auto) [place] % (Auto) Lymph # [place] # Baso # Seg Neutrophils % Seg Neuts % (Manual) Lymphocytes % (Manual) Monocytes % (Manual) Nucleated RBC % Seg Neutrophils # Seg Neutrophils # Man Lymphocytes # (Manual) Monocytes # (Manual) PT INR APTT Fibrinogen Heparin Anti-Xa Level POC ABG pH 7.461 H POC ABG pCO2 31.9 L POC ABG pO2 73 L POC Potassium POC Chloride Sodium Potassium Chloride Carbon Dioxide POC BUN BUN Creatinine Glucose POC Glucose 155 H Calcium Magnesium AST Alkaline Phosphatase Lactate Dehydrogenase Total Creatine Kinase Total Protein Albumin Urine WBC (Auto) Crossmatch 06/28/16 06/28/16 06/28/16 16:27 20:47 22:59 WBC RBC Hgb POC Hgb Hct POC Hct MCH MCHC RDW Plt Count Lymph % (Auto) [place] % (Auto) Lymph # [place] # Baso # Seg Neutrophils % Seg Neuts % (Manual) Lymphocytes % (Manual) Monocytes % (Manual) Nucleated RBC % Seg Neutrophils # Seg Neutrophils # Man Lymphocytes # (Manual) Monocytes # (Manual) PT INR APTT Fibrinogen Heparin Anti-Xa Level 1.16 H POC ABG pH POC ABG pCO2 POC ABG pO2 POC Potassium POC Chloride Sodium Potassium Chloride Carbon Dioxide POC BUN BUN Creatinine Glucose POC Glucose 193 H 126 H Calcium Magnesium AST Alkaline Phosphatase Lactate Dehydrogenase Total Creatine Kinase Total Protein Albumin Urine WBC (Auto) Crossmatch 06/29/16 06/29/16 06/29/16 05:51 09:10 09:10 WBC RBC Hgb POC Hgb Hct POC Hct MCH MCHC RDW Plt Count Lymph % (Auto) [place] % (Auto) Lymph # [place] # Baso # Seg Neutrophils % Seg Neuts % (Manual) Lymphocytes % (Manual) Monocytes % (Manual) Nucleated RBC % Seg Neutrophils # Seg Neutrophils # Man Lymphocytes # (Manual) Monocytes # (Manual) PT INR APTT Fibrinogen Heparin Anti-Xa Level 0.92 H POC ABG pH POC ABG pCO2 POC ABG pO2 POC Potassium POC Chloride Sodium Potassium Chloride Carbon Dioxide POC BUN BUN 53 H Creatinine 3.7 H Glucose 139 H POC Glucose 121 H Calcium 8.2 L Magnesium AST Alkaline Phosphatase Lactate Dehydrogenase Total Creatine Kinase Total Protein Albumin Urine WBC (Auto) Crossmatch 06/29/16 06/30/16 06/30/16 21:22 05:09 08:07 WBC RBC Hgb 7.3 L POC Hgb Hct 21.9 L POC Hct MCH MCHC RDW Plt Count Lymph % (Auto) [place] % (Auto) Lymph # [place] # Baso # Seg Neutrophils % Seg Neuts % (Manual) Lymphocytes % (Manual) Monocytes % (Manual) Nucleated RBC % Seg Neutrophils # Seg Neutrophils # Man Lymphocytes # (Manual) Monocytes # (Manual) PT INR APTT Fibrinogen Heparin Anti-Xa Level POC ABG pH POC ABG pCO2 POC ABG pO2 POC Potassium POC Chloride Sodium Potassium Chloride Carbon Dioxide POC BUN BUN Creatinine Glucose POC Glucose 108 H 106 H Calcium Magnesium AST Alkaline Phosphatase Lactate Dehydrogenase Total Creatine Kinase Total Protein Albumin Urine WBC (Auto) Crossmatch 06/30/16 06/30/16 06/30/16 10:48 12:13 16:48 WBC RBC Hgb POC Hgb Hct POC Hct MCH MCHC RDW Plt Count Lymph % (Auto) [place] % (Auto) Lymph # [place] # Baso # Seg Neutrophils % Seg Neuts % (Manual) Lymphocytes % (Manual) Monocytes % (Manual) Nucleated RBC % Seg Neutrophils # Seg Neutrophils # Man Lymphocytes # (Manual) Monocytes # (Manual) PT INR APTT Fibrinogen Heparin Anti-Xa Level POC ABG pH POC ABG pCO2 POC ABG pO2 POC Potassium POC Chloride Sodium Potassium Chloride Carbon Dioxide POC BUN BUN 46 H Creatinine 3.0 H Glucose POC Glucose 153 H 152 H Calcium Magnesium AST Alkaline Phosphatase Lactate Dehydrogenase Total Creatine Kinase Total Protein Albumin Urine WBC (Auto) Crossmatch 06/30/16 07/01/16 07/01/16 21:47 05:47 07:44 WBC 19.8 H RBC 2.45 L Hgb 7.2 L POC Hgb Hct 22.2 L POC Hct MCH MCHC RDW Plt Count 481 H Lymph % (Auto) 5.5 L [place] % (Auto) Lymph # 1.1 L [place] # 1.4 H Baso # Seg Neutrophils % 86.8 H Seg Neuts % (Manual) Lymphocytes % (Manual) Monocytes % (Manual) Nucleated RBC % Seg Neutrophils # 17.1 H Seg Neutrophils # Man Lymphocytes # (Manual) Monocytes # (Manual) PT INR APTT Fibrinogen Heparin Anti-Xa Level POC ABG pH POC ABG pCO2 POC ABG pO2 POC Potassium POC Chloride Sodium Potassium Chloride Carbon Dioxide POC BUN BUN Creatinine Glucose POC Glucose 162 H 124 H Calcium Magnesium AST Alkaline Phosphatase Lactate Dehydrogenase Total Creatine Kinase Total Protein Albumin Urine WBC (Auto) Crossmatch 07/01/16 07/01/16 07/01/16 07:44 11:55 16:16 WBC RBC Hgb POC Hgb Hct POC Hct MCH MCHC RDW Plt Count Lymph % (Auto) [place] % (Auto) Lymph # [place] # Baso # Seg Neutrophils % Seg Neuts % (Manual) Lymphocytes % (Manual) Monocytes % (Manual) Nucleated RBC % Seg Neutrophils # Seg Neutrophils # Man Lymphocytes # (Manual) Monocytes # (Manual) PT INR APTT Fibrinogen Heparin Anti-Xa Level POC ABG pH POC ABG pCO2 POC ABG pO2 POC Potassium POC Chloride Sodium Potassium 3.1 L Chloride Carbon Dioxide POC BUN BUN 38 H Creatinine 2.2 H Glucose 114 H POC Glucose 114 H 143 H Calcium Magnesium AST Alkaline Phosphatase Lactate Dehydrogenase Total Creatine Kinase Total Protein Albumin Urine WBC (Auto) Crossmatch 07/01/16 07/02/16 07/02/16 21:42 05:40 06:46 WBC 18.1 H RBC 2.45 L Hgb 7.3 L POC Hgb Hct 21.8 L POC Hct MCH MCHC RDW Plt Count 490 H Lymph % (Auto) 6.1 L [place] % (Auto) Lymph # 1.1 L [place] # 1.1 H Baso # 0.2 H Seg Neutrophils % 86.0 H Seg Neuts % (Manual) Lymphocytes % (Manual) Monocytes % (Manual) Nucleated RBC % Seg Neutrophils # 15.6 H Seg Neutrophils # Man Lymphocytes # (Manual) Monocytes # (Manual) PT INR APTT Fibrinogen Heparin Anti-Xa Level POC ABG pH POC ABG pCO2 POC ABG pO2 POC Potassium POC Chloride Sodium Potassium Chloride Carbon Dioxide POC BUN BUN Creatinine Glucose POC Glucose 135 H 135 H Calcium Magnesium AST Alkaline Phosphatase Lactate Dehydrogenase Total Creatine Kinase Total Protein Albumin Urine WBC (Auto) Crossmatch 07/02/16 07/02/16 07/02/16 06:46 06:49 11:23 WBC RBC Hgb POC Hgb Hct POC Hct MCH MCHC RDW Plt Count Lymph % (Auto) [place] % (Auto) Lymph # [place] # Baso # Seg Neutrophils % Seg Neuts % (Manual) Lymphocytes % (Manual) Monocytes % (Manual) Nucleated RBC % Seg Neutrophils # Seg Neutrophils # Man Lymphocytes # (Manual) Monocytes # (Manual) PT INR APTT Fibrinogen Heparin Anti-Xa Level POC ABG pH POC ABG pCO2 POC ABG pO2 POC Potassium POC Chloride Sodium Potassium 2.8 L* Chloride Carbon Dioxide POC BUN BUN 30 H Creatinine 1.8 H Glucose 121 H POC Glucose 121 H Calcium 8.1 L Magnesium 1.3 L AST Alkaline Phosphatase Lactate Dehydrogenase Total Creatine Kinase Total Protein Albumin Urine WBC (Auto) Crossmatch 07/02/16 07/02/16 07/03/16 17:02 21:31 05:35 WBC RBC Hgb POC Hgb Hct POC Hct MCH MCHC RDW Plt Count Lymph % (Auto) [place] % (Auto) Lymph # [place] # Baso # Seg Neutrophils % Seg Neuts % (Manual) Lymphocytes % (Manual) Monocytes % (Manual) Nucleated RBC % Seg Neutrophils # Seg Neutrophils # Man Lymphocytes # (Manual) Monocytes # (Manual) PT INR APTT Fibrinogen Heparin Anti-Xa Level POC ABG pH POC ABG pCO2 POC ABG pO2 POC Potassium POC Chloride Sodium Potassium Chloride Carbon Dioxide POC BUN BUN Creatinine Glucose POC Glucose 121 H 159 H 149 H Calcium Magnesium AST Alkaline Phosphatase Lactate Dehydrogenase Total Creatine Kinase Total Protein Albumin Urine WBC (Auto) Crossmatch 07/03/16 07/03/16 07/03/16 06:45 06:45 06:45 WBC 16.8 H RBC 2.21 L Hgb 6.5 L POC Hgb Hct 19.4 L* POC Hct MCH MCHC RDW Plt Count 503 H Lymph % (Auto) 6.4 L [place] % (Auto) Lymph # 1.1 L [place] # 1.1 H Baso # Seg Neutrophils % 85.6 H Seg Neuts % (Manual) Lymphocytes % (Manual) Monocytes % (Manual) Nucleated RBC % Seg Neutrophils # 14.4 H Seg Neutrophils # Man Lymphocytes # (Manual) Monocytes # (Manual) PT INR APTT Fibrinogen Heparin Anti-Xa Level POC ABG pH POC ABG pCO2 POC ABG pO2 POC Potassium POC Chloride Sodium Potassium 2.9 L* Chloride Carbon Dioxide POC BUN BUN 21 H Creatinine 1.6 H Glucose 126 H POC Glucose Calcium 8.0 L Magnesium 1.6 L AST Alkaline Phosphatase Lactate Dehydrogenase Total Creatine Kinase Total Protein Albumin Urine WBC (Auto) Crossmatch 07/03/16 07/03/16 07/03/16 12:54 19:00 20:01 WBC RBC Hgb POC Hgb Hct POC Hct MCH MCHC RDW Plt Count Lymph % (Auto) [place] % (Auto) Lymph # [place] # Baso # Seg Neutrophils % Seg Neuts % (Manual) Lymphocytes % (Manual) Monocytes % (Manual) Nucleated RBC % Seg Neutrophils # Seg Neutrophils # Man Lymphocytes # (Manual) Monocytes # (Manual) PT INR APTT Fibrinogen Heparin Anti-Xa Level POC ABG pH 7.302 L POC ABG pCO2 49.8 H POC ABG pO2 422 H POC Potassium POC Chloride Sodium Potassium Chloride Carbon Dioxide POC BUN BUN Creatinine Glucose POC Glucose 129 H Calcium Magnesium AST Alkaline Phosphatase Lactate Dehydrogenase Total Creatine Kinase Total Protein Albumin Urine WBC (Auto) Crossmatch See Detail 07/03/16 07/04/16 07/04/16 23:09 04:30 04:30 WBC 19.6 H RBC 3.21 L Hgb 9.4 L POC Hgb Hct 28.2 L POC Hct MCH MCHC RDW Plt Count Lymph % (Auto) 6.5 L [place] % (Auto) Lymph # [place] # 1.2 H Baso # Seg Neutrophils % 86.4 H Seg Neuts % (Manual) Lymphocytes % (Manual) Monocytes % (Manual) Nucleated RBC % Seg Neutrophils # 16.9 H Seg Neutrophils # Man Lymphocytes # (Manual) Monocytes # (Manual) PT INR APTT Fibrinogen Heparin Anti-Xa Level POC ABG pH POC ABG pCO2 POC ABG pO2 POC Potassium POC Chloride Sodium Potassium 3.5 L D Chloride 111.2 H Carbon Dioxide 20 L POC BUN BUN 18 H Creatinine Glucose POC Glucose 111 H Calcium 7.0 L Magnesium AST Alkaline Phosphatase Lactate Dehydrogenase Total Creatine Kinase Total Protein Albumin Urine WBC (Auto) Crossmatch 07/04/16 07/04/16 07/04/16 05:44 12:50 14:33 WBC RBC Hgb POC Hgb Hct POC Hct MCH MCHC RDW Plt Count Lymph % (Auto) [place] % (Auto) Lymph # [place] # Baso # Seg Neutrophils % Seg Neuts % (Manual) Lymphocytes % (Manual) Monocytes % (Manual) Nucleated RBC % Seg Neutrophils # Seg Neutrophils # Man Lymphocytes # (Manual) Monocytes # (Manual) PT INR APTT Fibrinogen Heparin Anti-Xa Level POC ABG pH 7.465 H 7.468 H POC ABG pCO2 29.5 L 29.1 L 33.1 L POC ABG pO2 110 H 39 L POC Potassium POC Chloride Sodium Potassium Chloride Carbon Dioxide POC BUN BUN Creatinine Glucose POC Glucose Calcium Magnesium AST Alkaline Phosphatase Lactate Dehydrogenase Total Creatine Kinase Total Protein Albumin Urine WBC (Auto) Crossmatch 07/04/16 07/05/16 07/05/16 16:49 00:20 04:19 WBC 16.2 H RBC 3.44 L Hgb POC Hgb Hct POC Hct MCH MCHC RDW Plt Count Lymph % (Auto) 5.2 L [place] % (Auto) 7.5 H Lymph # 0.8 L [place] # 1.2 H Baso # Seg Neutrophils % 86.5 H Seg Neuts % (Manual) Lymphocytes % (Manual) Monocytes % (Manual) Nucleated RBC % Seg Neutrophils # 14.0 H Seg Neutrophils # Man Lymphocytes # (Manual) Monocytes # (Manual) PT INR APTT Fibrinogen Heparin Anti-Xa Level POC ABG pH POC ABG pCO2 31.1 L POC ABG pO2 110 H POC Potassium POC Chloride Sodium Potassium Chloride Carbon Dioxide POC BUN BUN Creatinine Glucose POC Glucose 168 H Calcium Magnesium AST Alkaline Phosphatase Lactate Dehydrogenase Total Creatine Kinase Total Protein Albumin Urine WBC (Auto) Crossmatch 07/05/16 07/05/16 07/05/16 04:19 06:01 09:54 WBC RBC Hgb POC Hgb Hct POC Hct MCH MCHC RDW Plt Count Lymph % (Auto) [place] % (Auto) Lymph # [place] # Baso # Seg Neutrophils % Seg Neuts % (Manual) Lymphocytes % (Manual) Monocytes % (Manual) Nucleated RBC % Seg Neutrophils # Seg Neutrophils # Man Lymphocytes # (Manual) Monocytes # (Manual) PT INR APTT Fibrinogen Heparin Anti-Xa Level POC ABG pH POC ABG pCO2 POC ABG pO2 POC Potassium POC Chloride Sodium 146 H Potassium 3.5 L Chloride 109.1 H Carbon Dioxide POC BUN BUN Creatinine Glucose 135 H POC Glucose 146 H 284 H Calcium 7.8 L Magnesium AST Alkaline Phosphatase Lactate Dehydrogenase Total Creatine Kinase Total Protein Albumin Urine WBC (Auto) Crossmatch 07/05/16 07/06/16 07/06/16 13:35 04:40 04:40 WBC 17.7 H RBC 3.32 L Hgb 9.8 L POC Hgb Hct 29.8 L POC Hct MCH MCHC RDW Plt Count Lymph % (Auto) [place] % (Auto) Lymph # [place] # Baso # Seg Neutrophils % Seg Neuts % (Manual) 85.0 H Lymphocytes % (Manual) 4.0 L Monocytes % (Manual) 10.0 H Nucleated RBC % Seg Neutrophils # Seg Neutrophils # Man 15.0 H Lymphocytes # (Manual) 0.7 L Monocytes # (Manual) 1.8 H PT INR APTT Fibrinogen Heparin Anti-Xa Level POC ABG pH POC ABG pCO2 POC ABG pO2 POC Potassium POC Chloride Sodium Potassium 3.5 L Chloride Carbon Dioxide 21 L POC BUN BUN Creatinine Glucose 108 H POC Glucose 130 H Calcium 7.8 L Magnesium AST Alkaline Phosphatase Lactate Dehydrogenase Total Creatine Kinase Total Protein Albumin Urine WBC (Auto) Crossmatch 07/06/16 07/06/16 07/06/16 07:46 11:49 15:31 WBC RBC Hgb POC Hgb Hct POC Hct MCH MCHC RDW Plt Count Lymph % (Auto) [place] % (Auto) Lymph # [place] # Baso # Seg Neutrophils % Seg Neuts % (Manual) Lymphocytes % (Manual) Monocytes % (Manual) Nucleated RBC % Seg Neutrophils # Seg Neutrophils # Man Lymphocytes # (Manual) Monocytes # (Manual) PT INR APTT Fibrinogen Heparin Anti-Xa Level POC ABG pH POC ABG pCO2 POC ABG pO2 POC Potassium POC Chloride Sodium Potassium Chloride Carbon Dioxide POC BUN BUN Creatinine Glucose POC Glucose 149 H 146 H 135 H Calcium Magnesium AST Alkaline Phosphatase Lactate Dehydrogenase Total Creatine Kinase Total Protein Albumin Urine WBC (Auto) Crossmatch 07/06/16 07/06/16 07/07/16 17:17 20:59 04:53 WBC 15.5 H RBC 3.55 L Hgb POC Hgb Hct POC Hct MCH MCHC RDW Plt Count Lymph % (Auto) 4.9 L [place] % (Auto) Lymph # 0.8 L [place] # 0.9 H Baso # Seg Neutrophils % 87.9 H Seg Neuts % (Manual) Lymphocytes % (Manual) Monocytes % (Manual) Nucleated RBC % Seg Neutrophils # 13.7 H Seg Neutrophils # Man Lymphocytes # (Manual) Monocytes # (Manual) PT INR APTT Fibrinogen Heparin Anti-Xa Level POC ABG pH POC ABG pCO2 POC ABG pO2 POC Potassium POC Chloride Sodium Potassium Chloride Carbon Dioxide POC BUN BUN Creatinine Glucose POC Glucose 140 H Calcium Magnesium AST Alkaline Phosphatase Lactate Dehydrogenase Total Creatine Kinase Total Protein Albumin Urine WBC (Auto) 67.0 H Crossmatch 07/07/16 07/07/16 07/07/16 04:53 06:13 07:15 WBC RBC Hgb POC Hgb Hct POC Hct MCH MCHC RDW Plt Count Lymph % (Auto) [place] % (Auto) Lymph # [place] # Baso # Seg Neutrophils % Seg Neuts % (Manual) Lymphocytes % (Manual) Monocytes % (Manual) Nucleated RBC % Seg Neutrophils # Seg Neutrophils # Man Lymphocytes # (Manual) Monocytes # (Manual) PT INR APTT Fibrinogen Heparin Anti-Xa Level POC ABG pH POC ABG pCO2 POC ABG pO2 POC Potassium POC Chloride Sodium Potassium 3.4 L Chloride Carbon Dioxide POC BUN BUN Creatinine Glucose 104 H POC Glucose 122 H 134 H Calcium 8.0 L Magnesium AST Alkaline Phosphatase Lactate Dehydrogenase Total Creatine Kinase Total Protein Albumin Urine WBC (Auto) Crossmatch 07/07/16 07/07/16 07/07/16 08:06 08:06 10:31 WBC RBC Hgb POC Hgb Hct POC Hct MCH MCHC RDW Plt Count Lymph % (Auto) [place] % (Auto) Lymph # [place] # Baso # Seg Neutrophils % Seg Neuts % (Manual) Lymphocytes % (Manual) Monocytes % (Manual) Nucleated RBC % Seg Neutrophils # Seg Neutrophils # Man Lymphocytes # (Manual) Monocytes # (Manual) PT INR APTT Fibrinogen Heparin Anti-Xa Level POC ABG pH POC ABG pCO2 POC ABG pO2 POC Potassium POC Chloride Sodium Potassium Chloride Carbon Dioxide POC BUN BUN Creatinine Glucose 111 H POC Glucose 145 H Calcium 7.9 L Magnesium AST 53 H Alkaline Phosphatase 164 H Lactate Dehydrogenase Total Creatine Kinase Total Protein 6.2 L Albumin 1.4 L Urine WBC (Auto) Crossmatch See Detail 07/07/16 07/07/16 07/07/16 12:08 13:57 16:44 WBC RBC Hgb 9.7 L POC Hgb Hct 30.1 L POC Hct MCH MCHC RDW Plt Count Lymph % (Auto) [place] % (Auto) Lymph # [place] # Baso # Seg Neutrophils % Seg Neuts % (Manual) Lymphocytes % (Manual) Monocytes % (Manual) Nucleated RBC % Seg Neutrophils # Seg Neutrophils # Man Lymphocytes # (Manual) Monocytes # (Manual) PT INR APTT Fibrinogen Heparin Anti-Xa Level POC ABG pH POC ABG pCO2 POC ABG pO2 POC Potassium POC Chloride Sodium Potassium Chloride Carbon Dioxide POC BUN BUN Creatinine Glucose POC Glucose 159 H 173 H Calcium Magnesium AST Alkaline Phosphatase Lactate Dehydrogenase Total Creatine Kinase Total Protein Albumin Urine WBC (Auto) Crossmatch 07/07/16 07/08/16 07/08/16 23:31 07:27 12:16 WBC RBC Hgb POC Hgb Hct POC Hct MCH MCHC RDW Plt Count Lymph % (Auto) [place] % (Auto) Lymph # [place] # Baso # Seg Neutrophils % Seg Neuts % (Manual) Lymphocytes % (Manual) Monocytes % (Manual) Nucleated RBC % Seg Neutrophils # Seg Neutrophils # Man Lymphocytes # (Manual) Monocytes # (Manual) PT INR APTT Fibrinogen Heparin Anti-Xa Level POC ABG pH POC ABG pCO2 POC ABG pO2 POC Potassium POC Chloride Sodium Potassium Chloride Carbon Dioxide POC BUN BUN Creatinine Glucose POC Glucose 163 H 149 H 150 H Calcium Magnesium AST Alkaline Phosphatase Lactate Dehydrogenase Total Creatine Kinase Total Protein Albumin Urine WBC (Auto) Crossmatch 07/08/16 07/08/16 07/08/16 12:50 16:46 21:45 WBC RBC Hgb POC Hgb Hct POC Hct MCH MCHC RDW Plt Count Lymph % (Auto) [place] % (Auto) Lymph # [place] # Baso # Seg Neutrophils % Seg Neuts % (Manual) Lymphocytes % (Manual) Monocytes % (Manual) Nucleated RBC % Seg Neutrophils # Seg Neutrophils # Man Lymphocytes # (Manual) Monocytes # (Manual) PT INR APTT Fibrinogen Heparin Anti-Xa Level POC ABG pH POC ABG pCO2 POC ABG pO2 POC Potassium POC Chloride Sodium Potassium Chloride Carbon Dioxide 21 L POC BUN BUN Creatinine Glucose 126 H POC Glucose 143 H 134 H Calcium 7.5 L Magnesium AST Alkaline Phosphatase Lactate Dehydrogenase Total Creatine Kinase Total Protein Albumin Urine WBC (Auto) Crossmatch 07/09/16 07/09/16 07/09/16 07:31 07:31 08:07 WBC RBC Hgb POC Hgb Hct POC Hct MCH MCHC RDW Plt Count Lymph % (Auto) [place] % (Auto) Lymph # [place] # Baso # Seg Neutrophils % Seg Neuts % (Manual) Lymphocytes % (Manual) Monocytes % (Manual) Nucleated RBC % Seg Neutrophils # Seg Neutrophils # Man Lymphocytes # (Manual) Monocytes # (Manual) PT INR APTT Fibrinogen Heparin Anti-Xa Level POC ABG pH POC ABG pCO2 POC ABG pO2 POC Potassium POC Chloride Sodium Potassium Chloride Carbon Dioxide POC BUN BUN Creatinine Glucose 117 H POC Glucose 132 H Calcium 7.5 L Magnesium AST Alkaline Phosphatase 136 H Lactate Dehydrogenase 285 H Total Creatine Kinase 297 H Total Protein 5.4 L Albumin 1.5 L Urine WBC (Auto) Crossmatch 07/09/16 07/09/16 07/09/16 09:55 11:10 16:26 WBC 13.4 H RBC 1.95 L Hgb 5.8 L* D POC Hgb Hct 17.7 L* D POC Hct MCH MCHC RDW 15.5 H Plt Count Lymph % (Auto) 9.4 L [place] % (Auto) 8.3 H Lymph # [place] # 1.1 H Baso # Seg Neutrophils % 81.2 H Seg Neuts % (Manual) Lymphocytes % (Manual) Monocytes % (Manual) Nucleated RBC % Seg Neutrophils # 10.9 H Seg Neutrophils # Man Lymphocytes # (Manual) Monocytes # (Manual) PT INR APTT Fibrinogen Heparin Anti-Xa Level POC ABG pH POC ABG pCO2 POC ABG pO2 POC Potassium POC Chloride Sodium Potassium Chloride Carbon Dioxide POC BUN BUN Creatinine Glucose POC Glucose 240 H 113 H Calcium Magnesium AST Alkaline Phosphatase Lactate Dehydrogenase Total Creatine Kinase Total Protein Albumin Urine WBC (Auto) Crossmatch 07/09/16 07/10/16 07/10/16 21:45 04:10 09:03 WBC 15.1 H RBC 3.00 L Hgb 8.8 L D POC Hgb Hct 26.2 L D POC Hct MCH MCHC RDW 15.4 H Plt Count Lymph % (Auto) 8.4 L [place] % (Auto) 8.4 H Lymph # [place] # 1.3 H Baso # Seg Neutrophils % 82.5 H Seg Neuts % (Manual) Lymphocytes % (Manual) Monocytes % (Manual) Nucleated RBC % Seg Neutrophils # 12.5 H Seg Neutrophils # Man Lymphocytes # (Manual) Monocytes # (Manual) PT INR APTT Fibrinogen Heparin Anti-Xa Level POC ABG pH POC ABG pCO2 POC ABG pO2 POC Potassium POC Chloride Sodium Potassium Chloride Carbon Dioxide POC BUN BUN Creatinine Glucose POC Glucose 113 H 122 H Calcium Magnesium AST Alkaline Phosphatase Lactate Dehydrogenase Total Creatine Kinase Total Protein Albumin Urine WBC (Auto) Crossmatch 07/10/16 11:38 WBC RBC Hgb POC Hgb Hct POC Hct MCH MCHC RDW Plt Count Lymph % (Auto) [place] % (Auto) Lymph # [place] # Baso # Seg Neutrophils % Seg Neuts % (Manual) Lymphocytes % (Manual) Monocytes % (Manual) Nucleated RBC % Seg Neutrophils # Seg Neutrophils # Man Lymphocytes # (Manual) Monocytes # (Manual) PT INR APTT Fibrinogen Heparin Anti-Xa Level POC ABG pH POC ABG pCO2 POC ABG pO2 POC Potassium POC Chloride Sodium Potassium Chloride Carbon Dioxide POC BUN BUN Creatinine Glucose POC Glucose 146 H Calcium Magnesium AST Alkaline Phosphatase Lactate Dehydrogenase Total Creatine Kinase Total Protein Albumin Urine WBC (Auto) Crossmatch CT scan - chest: image reviewed
--- NOTE | 2016-07-10 14:47 | Cat Scan Report ---
CT ANGIOGRAM ABDOMEN/FEMORAL ABDOMINAL AORTA: INDICATION: Ischemic left leg. Unexplained blood loss. COMPARISON: 06/15/2016. FINDINGS: CT angiogram of the abdomen, pelvis and entire bilateral lower extremities performed. Axial, sagittal, coronal and computer-generated MIP reconstructions obtained. LUNG BASES: New small left pleural effusion and left more than right basilar atelectasis/consolidation with few left lower lobe air bronchograms. Borderline/mild cardiomegaly. Possibly new central catheter tip partially imaged in the right atrium. ABDOMEN: Slight heterogeneous hepatic enhancement, presumed technical due to mixed arterial-portal venous phase imaging. Mosaic attenuation of the spleen also nonspecific as on axial series 2, image 51 and may also be technical. Patent portal and splenic veins. Gallbladder, pancreas and IVC unremarkable. Stable prominence of the adrenals with homogenous enhancement. New bilateral double-J ureteral stents with their proximal ends noted within the renal pelves inferiorly as on axial image 125, series 2. Slight intrarenal collecting system fullness/hydronephrosis. No abdominal ascites or size significant adenopathy. Nonopacified GI tract evaluation limited, though grossly nonobstructive. Mild colonic stool, greatest along the ascending colon. Abdominal CTA images demonstrate nonaneurysmal abdominal aorta with atherosclerotic changes. Patent celiac axis and SMA with some stenosis at their origins not excluded. Patent RODRÍGUEZ. Single bilateral renal arteries noted patent, though some narrowing at the aortic origin of the right renal artery questioned. Patent bilateral common iliac arteries, though stenosis on the right proximally suspected as on axial series 2, image 199, amongst others. Left common iliac artery stent again noted. PELVIS: Myomatous uterus again predominantly located in the left hemipelvis with the largest fibroid approximately 3.6 cm on axial images 263, series 2 with some intrinsic calcifications. Urinary bladder again deviated to the right hemipelvis and now decompressed with a new Gillespie catheter. Distal ends of bilateral double-J ureteral stents also noted coiled within. New presacral stranding/density. Approximately 8.5 x 6.5 cm mildly hyperdense hematoma in the left hemipelvis anteriorly is new, axial image 310, series 2. An abscess also noted adjacent/superolateral to it with an index measurement of approximately 8 x 4 cm as on axial image 299, series 2 with few intrinsic foci of air and tract noted extending to the left groin as on axial image 317. Diffuse subcutaneous stranding about the pelvis also noted, axial image 325. Skin samaria at the right groin are also new as also a smaller, approximately 4 x 2.8 cm right groin abscess, axial image 315, series 2 with few small foci of air and extending to/surrounding the right groin vessels. Pelvic CTA images demonstrate patent internal iliac branches bilaterally. New left external iliac artery stents extending to the groin now noted, though without intrinsic blood flow. Few small adjacent surgical clips/densities as well. Mild right external iliac artery flow noted, though suspected narrowed at either ends of the stent as on axial images 249 and 277, series 2, amongst others. RIGHT LOWER EXTREMITY: Diffuse fat stranding along entire thigh and some more inferiorly also noted. Mild hypodense appearance to muscles at places, more so involving the upper calf in the anterior and posteromedial compartment as on axial image 756, series 2 measuring up to approximately 1.5 cm, possibly ischemic/necrosis with similar appearance also more inferiorly as on axial image 823, series 2 in the calf posteriorly. Please correlate. Right leg angiographic images demonstrate patent common femoral artery at the groin. It is however now completely occluded soon thereafter with few patent deep femoral thigh collaterals, one dominant of which enters and reconstitutes the right SFA distally as on axial image 579, series 2. Extensive stenting of the right SFA from the groin to the distal thigh noted. Mild flow in the right distal SFA and popliteal artery noted with a 2 vessel runoff in the lower leg along the anterior tibial and the peroneal. Posterior tibial artery not seen. Small dorsalis pedis artery noted. LEFT LOWER EXTREMITY: Few new skin samaria along the thigh medially noted. Diffuse fat stranding involves the thigh and also some possibly below the knee. Approximately 6 x 4 cm mildly hyperdense hematoma enlarging the left mid thigh muscles posteromedially noted, axial image 502, series 2. Some atrophy of the calf muscles suspected. Left leg angiographic images demonstrate occluded left common femoral artery at the groin. Few deep femoral thigh collaterals are patent. Extensive left SFA stents along the proximal to mid thigh noted without intrinsic blood flow. Mild reconstitution of the left popliteal artery distally and the tibioperoneal trunk for a short distance, though extremely small in caliber. Tiny left anterior tibial artery also patent for a short distance up to the proximal calf. No reliable arterial flow noted below that level. Mild lower lumbar degenerative changes. CONCLUSION: 1. Left hemipelvic abscess extending from the left groin, as described. 2. A left lower hemipelvic hematoma is new, as detailed above. A left thigh hematoma as well. 3. Urinary bladder displaced into the right hemipelvis, now decompressed with an indwelling Gillespie catheter and also contains distal ends of bilateral double-J ureteral stents. Their proximal ends also noted coiled within the renal pelves inferiorly with mild bilateral intrarenal collecting system fullness/hydronephrosis. Urologic correlation may be obtained, as warranted. 4. Interval left external iliac artery stenting without intrinsic blood flow. Left lower extremity arteries also noted occluded except for minimal reconstitution behind the knee, as detailed above. 5. Small abscess at the right groin also noted with evidence of recent surgery. 6. Much of the right SFA occluded and only reconstitutes distally with a 2 vessel runoff noted below the right knee. 7. New small left pleural effusion and left more than right lower lobe atelectasis/consolidation. 8. Various other findings, including nonaneurysmal abdominal aorta with atherosclerotic changes, myomatous uterus, diffuse subcutaneous stranding, right calf muscles CT appearance and various other iatrogenic changes, amongst others, as above. Thank you for the opportunity to participate in this patient's care.
--- NOTE | 2016-07-10 16:51 | Progress Note ---
Assessment and Plan The patient had a CTA that demonstrates occlusion of the left external iliac as well as common femoral artery. The profunda is being filled through collaterals with very minimal flow below the knee. The patient will require an above-knee amputation for pain control and control of infection. I had a discussion with the patient's daughter as well as her sisters about the knee for the patient's above-knee amputation. I explained to them the risk of not doing the amputation could possibly lead to systemic infection as well as multisystem organ failure. I explained that there was no option for revascularization at this point and that there was no point in performing a below-knee amputation as this would not heal. They expressed understanding. They're concerned that the patient is not ready to hear this information at this time and would like all of the family members to be present when she is told. At this point I did not discuss the plan with the patient. Will and a discussed with the patient when all family is present and possibly proceed with above-knee amputation next week. Subjective Date of service: 07/10/16 Principal diagnosis: Acute Hypoxemic Respiratory Failure; s/p cardiopulmonary arrest Interval history: The patient required transfusion of PRBC yesterday and responded appropriately. She continues to complain LLE pain. Objective - Constitutional Vitals: Vital Signs - 12hr 07/10/16 07/10/16 07/10/16 05:00 06:00 06:40 Temperature Pulse Rate 105 H 105 H 106 H Pulse Rate [ From Monitor] Respiratory 12 15 15 Rate Blood Pressure 139/58 134/67 133/61 O2 Sat by Pulse 99 98 98 Oximetry 07/10/16 07/10/16 07/10/16 07:00 07:17 07:21 Temperature Pulse Rate 107 H Pulse Rate [ From Monitor] Respiratory 15 15 15 Rate Blood Pressure 113/66 O2 Sat by Pulse 100 Oximetry 07/10/16 07/10/16 07/10/16 08:00 09:00 09:40 Temperature 99.4 F Pulse Rate 106 H 117 H 110 H Pulse Rate [ From Monitor] Respiratory 14 Rate Blood Pressure 110/53 118/62 O2 Sat by Pulse 99 Oximetry 07/10/16 07/10/16 07/10/16 10:00 11:48 15:45 Temperature 98.9 F 98.4 F Pulse Rate Pulse Rate [ 113 H From Monitor] Respiratory 16 Rate Blood Pressure O2 Sat by Pulse 99 Oximetry 07/10/16 15:57 Temperature Pulse Rate Pulse Rate [ From Monitor] Respiratory 16 Rate Blood Pressure O2 Sat by Pulse Oximetry General appearance: Present: no acute distress - Neck Neck: supple - Respiratory Respiratory effort: normal Respiratory: left: diminished - Breasts Breasts: normal - Cardiovascular Heart rate: 105 Rhythm: regular Extremities: normal temperature (RLE) Extremity abnormal: cyanosis (LLE), black (LLE), cold (LLE), other (LLE foot has no motor or sensation) - Gastrointestinal General gastrointestinal: Present: soft, non-tender, other (Left groin wound with vac intact) - Genitourinary Female genitourinary: deferred - Labs CBC & Chem 7: 07/10/16 04:10 07/09/16 07:31 Labs: Abnormal lab results 07/07/16 07/09/16 07/09/16 Range/Units 08:06 08:07 11:10 WBC (4.5-11.0) K/mm3 RBC (3.65-5.03) M/mm3 Hgb (10.1-14.3) gm/dl Hct (30.3-42.9) % RDW (13.2-15.2) % Lymph % (Auto) (13.4-35.0) % [place] % (Auto) (0.0-7.3) % [place] # (0.0-0.8) K/mm3 Seg Neutrophils % (40.0-70.0) % Seg Neutrophils # (1.8-7.7) K/mm3 POC Glucose 132 H 240 H (70-105) Crossmatch See Detail 07/09/16 07/09/16 07/10/16 Range/Units 16:26 21:45 04:10 WBC 15.1 H (4.5-11.0) K/mm3 RBC 3.00 L (3.65-5.03) M/mm3 Hgb 8.8 L D (10.1-14.3) gm/dl Hct 26.2 L D (30.3-42.9) % RDW 15.4 H (13.2-15.2) % Lymph % (Auto) 8.4 L (13.4-35.0) % [place] % (Auto) 8.4 H (0.0-7.3) % [place] # 1.3 H (0.0-0.8) K/mm3 Seg Neutrophils % 82.5 H (40.0-70.0) % Seg Neutrophils # 12.5 H (1.8-7.7) K/mm3 POC Glucose 113 H 113 H (70-105) Crossmatch 07/10/16 07/10/16 07/10/16 Range/Units 09:03 11:38 15:36 WBC (4.5-11.0) K/mm3 RBC (3.65-5.03) M/mm3 Hgb (10.1-14.3) gm/dl Hct (30.3-42.9) % RDW (13.2-15.2) % Lymph % (Auto) (13.4-35.0) % [place] % (Auto) (0.0-7.3) % [place] # (0.0-0.8) K/mm3 Seg Neutrophils % (40.0-70.0) % Seg Neutrophils # (1.8-7.7) K/mm3 POC Glucose 122 H 146 H 131 H (70-105) Crossmatch
--- NOTE | 2016-07-10 19:37 | Progress Note ---
Assessment and Plan Current antibiotics: Zosyn 4.5 gm iv Q8H (07/08 Previous antibiotics: Zosyn 2.25 g IV q8h 06/21-06/24 Cefazolin perioperatively ASSESSMENT: Cande Ge is a 55-year-old female with severe peripheral vascular disease, type 2 DM with peripheral neuropathy and hypertension who was admitted to [facility] as an outpatient with left lower extremity pain at rest for her cutaneous intervention which was unsuccessful and subsequently underwent left femoral endarterectomy and left iliac stenting and left femoral-popliteal bypass on 06/16 , urgent thrombectomies on 06/20 and right femoral endarterectomy with patch angioplasty on 07/03. She also had 2 cardiac arrests on 06/20 requiring resuscitation and intubation. She developed evidence of a retroperitoneal hematoma and ureteral obstruction and underwent bilateral ureteral stenting on 06/27. She has had a low-grade fever and leukocytosis. 07/07/16: Debridement of the left groin wound. Removal of infected Dacron patch from the SFA. Removal of thrombosed infected vein bypass graft proximal portion. Creation of the sartorius muscle flap over common femoral artery bovine pericardial patch. 07/10/16: CTA demonstrated occlusion of the left external iliac as well as common femoral artery. The profunda is being filled through collaterals with very minimal flow below the knee. Problem list: 1. Leukocytosis, multifactorial including ongoing ischemia of lower extremity and surgical findings of left groin necrosis. 2. left groin infection, in view of operative findings of necrotic tissue, bypass graft was removed. Gram stain of surgical culture with gram positive cocci in pairs and gram negative rods. Started zosyn on 07/08/16 --intraoperative culture with E.coli, E.faecalis and Streptococcus species 3. Low-grade fever -Patient had a elevated temp to 101 overnight. Patient has continued left groin inflammation with necrosis. Ongoing ischemia could also be adding to this -fever profile improved 4. Severe peripheral vascular disease -Unsuccessful attempt at percutaneous left lower extremity revascularization 06/13 -Left femoral endarterectomy, left iliac stenting and left femoral-popliteal bypass on 06/16 -Left lower extremity thrombectomies on 06/20 -Right femoral endarterectomy with patch angioplasty on 07/03 5. Retroperitoneal hematoma -As seen on CT scan 06/27 6. Bilateral hydroureteronephrosis -Status post bilateral ureteral stenting 06/27 7. Status post cardiopulmonary arrests X 2 -06/20 -Mechanical ventilatory support until 07/05 PLAN: 1. continue zosyn 2. willl deescalate antibiotics based sensitivities 3. reviewed vascular surgery note, limited to no options for left leg salvage Subjective Date of service: 07/10/16 Principal diagnosis: Acute Hypoxemic Respiratory Failure; s/p cardiopulmonary arrest Interval history: Patient is doing okay, she said she is depressed about her current medical condition Objective - Constitutional Vitals: Selected Entries 07/10/16 07/10/16 07/10/16 11:48 15:45 19:00 Temperature 98.9 F 98.4 F Respiratory 14 Rate O2 Sat by Pulse 99 Oximetry Blood Pressure 120/44 Blood Pressure 69 Mean General appearance: Present: no acute distress, well-nourished - EENT Eyes: PERRL, EOM intact, no scleral icterus, no conjunctival injection ENT: hearing intact, clear oral mucosa, no oropharyngeal erythema Ears: bilateral: normal - Neck Neck: supple, normal ROM, no enlarged thyroid, no masses or JVD - Respiratory Respiratory effort: normal Respiratory: bilateral: CTA - Breasts Breasts: deferred - Cardiovascular Rhythm: regular Heart Sounds: Present: S1 & S2 Extremities: abnormal (left leg edema, cool to touch, left groin wound vac in place, right groin surgical samaria in place) Extremity abnormal: edema, cyanosis, erythema, cold - Gastrointestinal General gastrointestinal: Present: soft, non-tender, normal bowel sounds Rectal Exam: deferred - Genitourinary Female genitourinary: deferred - Integumentary Integumentary: no jaundice, no rash - Labs CBC & Chem 7: 07/10/16 04:10 07/09/16 07:31 Labs: Abnormal lab results 07/07/16 07/09/16 07/09/16 Range/Units 08:06 08:07 11:10 WBC (4.5-11.0) K/mm3 RBC (3.65-5.03) M/mm3 Hgb (10.1-14.3) gm/dl Hct (30.3-42.9) % RDW (13.2-15.2) % Lymph % (Auto) (13.4-35.0) % [place] % (Auto) (0.0-7.3) % [place] # (0.0-0.8) K/mm3 Seg Neutrophils % (40.0-70.0) % Seg Neutrophils # (1.8-7.7) K/mm3 POC Glucose 132 H 240 H (70-105) Crossmatch See Detail 07/09/16 07/09/16 07/10/16 Range/Units 16:26 21:45 04:10 WBC 15.1 H (4.5-11.0) K/mm3 RBC 3.00 L (3.65-5.03) M/mm3 Hgb 8.8 L D (10.1-14.3) gm/dl Hct 26.2 L D (30.3-42.9) % RDW 15.4 H (13.2-15.2) % Lymph % (Auto) 8.4 L (13.4-35.0) % [place] % (Auto) 8.4 H (0.0-7.3) % [place] # 1.3 H (0.0-0.8) K/mm3 Seg Neutrophils % 82.5 H (40.0-70.0) % Seg Neutrophils # 12.5 H (1.8-7.7) K/mm3 POC Glucose 113 H 113 H (70-105) Crossmatch 07/10/16 07/10/16 07/10/16 Range/Units 09:03 11:38 15:36 WBC (4.5-11.0) K/mm3 RBC (3.65-5.03) M/mm3 Hgb (10.1-14.3) gm/dl Hct (30.3-42.9) % RDW (13.2-15.2) % Lymph % (Auto) (13.4-35.0) % [place] % (Auto) (0.0-7.3) % [place] # (0.0-0.8) K/mm3 Seg Neutrophils % (40.0-70.0) % Seg Neutrophils # (1.8-7.7) K/mm3 POC Glucose 122 H 146 H 131 H (70-105) Crossmatch
[2016-07-11] MEDS: ZOSYN/NS 4.5GM/100ML 100 ML IV SCH ×3 (03:46→19:35)
[2016-07-11] MEDS: MORPHINE PCA 30MG/30ML IV SCH ×2 (06:53→20:00)
[2016-07-11 07:10] LABS: Alanine Aminotransferase 20 units/L (7-56); Albumin 1.8 g/dL (3.9-5); Albumin/Globulin Ratio 0.4 %; Alkaline Phosphatase 153 units/L (35-129); Anion Gap 16 mmol/L; BUN/Creatinine Ratio 11.25; Bilirubin,Total 0.7 mg/dL (0.1-1.2); Blood Urea Nitrogen 9 mg/dL (7-17); Calcium 7.7 mg/dL (8.4-10.2); Carbon Dioxide 25 mmol/L (22-30); Chloride 102.6 mmol/L (98-107); Glucose 107 mg/dL (65-100); Potassium 3.8 mmol/L (3.6-5.0); Sodium 140 mmol/L (137-145)
[2016-07-11] MEDS: TENORMIN PO SCH (09:11)
[2016-07-11] MEDS: SENOKOT S PO SCH ×2 (09:11→22:08)
[2016-07-11] MEDS: PROTONIX PO SCH (09:11)
[2016-07-11] MEDS: BABY ASPIRIN PO SCH (09:12)
[2016-07-11] MEDS: FERROUS SULFATE PO SCH (09:12)
[2016-07-11] MEDS: PLAVIX PO SCH (09:12)
[2016-07-11] MEDS: K-DUR PO SCH (09:12)
[2016-07-11] MEDS: THERMAZENE 50 GRAM TP SCH ×2 (09:13→17:55)
--- NOTE | 2016-07-11 09:42 | Progress Note ---
Assessment and Plan - Patient Problems (1) Peripheral vascular disease of extremity Current Visit: Yes Status: Acute Plan to address problem: - tentatively for AKA left leg next week - vascular surgery managing - continue analgesia (2) Acute respiratory failure Current Visit: Yes Status: Acute Plan to address problem: - on room air but need to r/o hemothorax which will necessitate further intervention - thoracentesis on hold re: plavix but also clinical stability respiratory-centeno (3) Anemia Current Visit: Yes Status: Acute Plan to address problem: - follow H&H - evaluating source - LDH unremarkable - Likely ABLA component (4) Altered mental status Current Visit: Yes Status: Acute Plan to address problem: - improved - dementia element likely +/- depression element Subjective Date of service: 07/11/16 Principal diagnosis: Acute Hypoxemic Respiratory Failure; s/p cardiopulmonary arrest Interval history: Seen and examined at bedside; 24 hour events reviewed; nursing and respiratory care staff consulted; no adverse overnight events reported to me; resting peacefully in bed; denies acute chest pains; No N/V/F/C; no gross bleeding noted Objective Vital Signs - 12hr 07/10/16 07/10/16 07/10/16 21:54 22:00 22:01 Temperature Pulse Rate 109 H Pulse Rate [ 108 H From Monitor] Respiratory 11 L 17 18 Rate Blood Pressure 133/57 O2 Sat by Pulse 98 99 Oximetry 07/10/16 07/10/16 07/10/16 22:02 22:44 23:00 Temperature Pulse Rate 107 H 109 H 107 H Pulse Rate [ From Monitor] Respiratory 14 15 16 Rate Blood Pressure 133/57 125/74 134/50 O2 Sat by Pulse 99 100 100 Oximetry 07/10/16 07/10/16 07/11/16 23:31 23:59 00:00 Temperature 99.4 F Pulse Rate 110 H 110 H Pulse Rate [ From Monitor] Respiratory 15 18 14 Rate Blood Pressure 137/58 114/63 O2 Sat by Pulse 99 99 Oximetry 07/11/16 07/11/16 07/11/16 01:00 02:00 03:00 Temperature Pulse Rate 105 H 105 H 109 H Pulse Rate [ From Monitor] Respiratory 16 13 11 L Rate Blood Pressure 129/59 130/64 136/74 O2 Sat by Pulse 100 100 98 Oximetry 07/11/16 07/11/16 07/11/16 03:46 04:00 05:00 Temperature 98.5 F Pulse Rate 107 H 107 H Pulse Rate [ 107 H From Monitor] Respiratory 14 15 12 Rate Blood Pressure 127/79 125/63 O2 Sat by Pulse 98 98 Oximetry 07/11/16 07/11/16 07/11/16 06:00 06:50 06:53 Temperature Pulse Rate 111 H Pulse Rate [ From Monitor] Respiratory 21 14 14 Rate Blood Pressure 125/66 O2 Sat by Pulse 99 Oximetry 07/11/16 07/11/16 07/11/16 07:00 07:49 08:00 Temperature 98.6 F Pulse Rate 106 H 105 H Pulse Rate [ From Monitor] Respiratory 14 13 Rate Blood Pressure 134/53 O2 Sat by Pulse 97 97 Oximetry 07/11/16 09:11 Temperature Pulse Rate 109 H Pulse Rate [ From Monitor] Respiratory Rate Blood Pressure 142/60 O2 Sat by Pulse Oximetry Constitutional: no acute distress, alert Eyes: non-icteric ENT: oropharynx moist Neck: supple, no lymphadenopathy Effort: normal Ascultation: Left: diminished breath sounds (base), Bilateral: clear Cardiovascular: regular rate and rhythm Gastrointestinal: normoactive bowel sounds, soft, non-tender, non-distended Integumentary: other (weak LLExt) Extremities: no cyanosis, edema, other (LLExt cool; toes black) Neurologic: normal mental status, non-focal exam, pupils equal and round Psychiatric: mood appropriate, affect normal CBC and BMP: 07/13/16 07:05 07/11/16 05:10 ABG, PT/INR, D-dimer: ABG POC ABG pH 7.436 (7.35-7.45) 07/04/16 16:49 POC ABG pCO2 31.1 (35-45) L 07/04/16 16:49 POC ABG pO2 110 (80-105) H 07/04/16 16:49 POC ABG HCO3 20.9 07/04/16 16:49 POC ABG Total CO2 22 07/04/16 16:49 POC ABG O2 Sat 99 07/04/16 16:49 PT/INR, D-dimer PT 19.9 Sec. (12.2-14.9) H 06/26/16 22:57 INR 1.69 (0.87-1.13) H 06/26/16 22:57 Abnormal lab findings: Abnormal Labs 06/13/16 06/13/16 06/13/16 09:45 09:45 09:45 WBC RBC Hgb POC Hgb Hct POC Hct MCH 25 L MCHC RDW 15.8 H Plt Count Lymph % (Auto) [place] % (Auto) 8.1 H Lymph # [place] # Baso # Seg Neutrophils % Seg Neuts % (Manual) Lymphocytes % (Manual) Monocytes % (Manual) Nucleated RBC % Seg Neutrophils # Seg Neutrophils # Man Lymphocytes # (Manual) Monocytes # (Manual) PT INR APTT Fibrinogen 522 H Heparin Anti-Xa Level POC ABG pH POC ABG pCO2 POC ABG pO2 POC Potassium POC Chloride Sodium Potassium Chloride Carbon Dioxide POC BUN BUN Creatinine Glucose POC Glucose Calcium 10.3 H Magnesium AST Alkaline Phosphatase Lactate Dehydrogenase Total Creatine Kinase Total Protein Albumin Urine WBC (Auto) Crossmatch 06/13/16 06/13/16 06/13/16 09:45 20:14 20:15 WBC RBC Hgb POC Hgb Hct POC Hct MCH MCHC RDW Plt Count Lymph % (Auto) [place] % (Auto) Lymph # [place] # Baso # Seg Neutrophils % Seg Neuts % (Manual) Lymphocytes % (Manual) Monocytes % (Manual) Nucleated RBC % Seg Neutrophils # Seg Neutrophils # Man Lymphocytes # (Manual) Monocytes # (Manual) PT INR APTT 103.8 H* Fibrinogen Heparin Anti-Xa Level 0.72 H POC ABG pH POC ABG pCO2 POC ABG pO2 POC Potassium POC Chloride Sodium Potassium Chloride Carbon Dioxide POC BUN BUN Creatinine Glucose POC Glucose Calcium Magnesium AST Alkaline Phosphatase Lactate Dehydrogenase Total Creatine Kinase Total Protein Albumin Urine WBC (Auto) Crossmatch See Detail 06/14/16 06/14/16 06/14/16 07:44 10:18 19:09 WBC RBC Hgb POC Hgb Hct POC Hct MCH 26 L MCHC RDW 15.8 H Plt Count Lymph % (Auto) [place] % (Auto) 9.1 H Lymph # [place] # Baso # Seg Neutrophils % Seg Neuts % (Manual) Lymphocytes % (Manual) Monocytes % (Manual) Nucleated RBC % Seg Neutrophils # Seg Neutrophils # Man Lymphocytes # (Manual) Monocytes # (Manual) PT INR APTT Fibrinogen Heparin Anti-Xa Level 0.76 H POC ABG pH POC ABG pCO2 POC ABG pO2 POC Potassium POC Chloride Sodium Potassium Chloride Carbon Dioxide POC BUN BUN Creatinine Glucose POC Glucose 106 H Calcium Magnesium AST Alkaline Phosphatase Lactate Dehydrogenase Total Creatine Kinase Total Protein Albumin Urine WBC (Auto) Crossmatch 06/15/16 06/15/16 06/15/16 04:43 04:43 22:49 WBC RBC Hgb 9.2 L POC Hgb Hct 28.4 L POC Hct MCH MCHC RDW Plt Count Lymph % (Auto) [place] % (Auto) Lymph # [place] # Baso # Seg Neutrophils % Seg Neuts % (Manual) Lymphocytes % (Manual) Monocytes % (Manual) Nucleated RBC % Seg Neutrophils # Seg Neutrophils # Man Lymphocytes # (Manual) Monocytes # (Manual) PT INR APTT Fibrinogen Heparin Anti-Xa Level 0.85 H POC ABG pH POC ABG pCO2 POC ABG pO2 POC Potassium POC Chloride Sodium Potassium Chloride Carbon Dioxide POC BUN BUN Creatinine Glucose POC Glucose 134 H Calcium Magnesium AST Alkaline Phosphatase Lactate Dehydrogenase Total Creatine Kinase Total Protein Albumin Urine WBC (Auto) Crossmatch 06/16/16 06/16/16 06/16/16 08:55 08:55 14:21 WBC RBC Hgb POC Hgb 5.8 L Hct POC Hct 17 L MCH MCHC RDW Plt Count Lymph % (Auto) [place] % (Auto) Lymph # [place] # Baso # Seg Neutrophils % Seg Neuts % (Manual) Lymphocytes % (Manual) Monocytes % (Manual) Nucleated RBC % Seg Neutrophils # Seg Neutrophils # Man Lymphocytes # (Manual) Monocytes # (Manual) PT INR APTT 20.0 L Fibrinogen Heparin Anti-Xa Level POC ABG pH POC ABG pCO2 POC ABG pO2 POC Potassium 2.9 L POC Chloride Sodium Potassium Chloride Carbon Dioxide POC BUN 7 L BUN Creatinine Glucose POC Glucose 249 H Calcium Magnesium AST Alkaline Phosphatase Lactate Dehydrogenase Total Creatine Kinase Total Protein Albumin Urine WBC (Auto) Crossmatch See Detail 06/16/16 06/16/16 06/16/16 16:55 17:41 17:48 WBC RBC Hgb POC Hgb 8.8 L Hct POC Hct 26 L < 15 L MCH MCHC RDW Plt Count Lymph % (Auto) [place] % (Auto) Lymph # [place] # Baso # Seg Neutrophils % Seg Neuts % (Manual) Lymphocytes % (Manual) Monocytes % (Manual) Nucleated RBC % Seg Neutrophils # Seg Neutrophils # Man Lymphocytes # (Manual) Monocytes # (Manual) PT INR APTT Fibrinogen Heparin Anti-Xa Level POC ABG pH 7.031 L POC ABG pCO2 POC ABG pO2 475 H POC Potassium 3.2 L POC Chloride 112 H 114 H Sodium Potassium Chloride Carbon Dioxide POC BUN 7 L 7 L BUN Creatinine Glucose POC Glucose 203 H 291 H Calcium Magnesium AST Alkaline Phosphatase Lactate Dehydrogenase Total Creatine Kinase Total Protein Albumin Urine WBC (Auto) Crossmatch 06/16/16 06/16/16 06/16/16 18:07 19:09 20:10 WBC 15.8 H RBC Hgb POC Hgb 6.5 L Hct POC Hct 19 L MCH MCHC RDW Plt Count 38 L Lymph % (Auto) 5.9 L [place] % (Auto) 9.3 H Lymph # 0.9 L [place] # 1.5 H Baso # Seg Neutrophils % 84.6 H Seg Neuts % (Manual) Lymphocytes % (Manual) Monocytes % (Manual) Nucleated RBC % Seg Neutrophils # 13.3 H Seg Neutrophils # Man Lymphocytes # (Manual) Monocytes # (Manual) PT INR APTT Fibrinogen Heparin Anti-Xa Level POC ABG pH POC ABG pCO2 POC ABG pO2 POC Potassium POC Chloride 113 H Sodium Potassium Chloride Carbon Dioxide POC BUN 7 L BUN Creatinine Glucose POC Glucose 263 H 231 H Calcium Magnesium AST Alkaline Phosphatase Lactate Dehydrogenase Total Creatine Kinase Total Protein Albumin Urine WBC (Auto) Crossmatch 06/16/16 06/16/16 06/16/16 20:10 20:18 21:10 WBC RBC Hgb POC Hgb Hct POC Hct MCH MCHC RDW Plt Count Lymph % (Auto) [place] % (Auto) Lymph # [place] # Baso # Seg Neutrophils % Seg Neuts % (Manual) Lymphocytes % (Manual) Monocytes % (Manual) Nucleated RBC % Seg Neutrophils # Seg Neutrophils # Man Lymphocytes # (Manual) Monocytes # (Manual) PT INR APTT Fibrinogen Heparin Anti-Xa Level POC ABG pH 7.236 L 7.280 L POC ABG pCO2 POC ABG pO2 139 H 145 H POC Potassium POC Chloride Sodium Potassium 3.4 L Chloride 114.5 H Carbon Dioxide 17 L D POC BUN BUN Creatinine Glucose 188 H POC Glucose Calcium 6.1 L D Magnesium AST Alkaline Phosphatase Lactate Dehydrogenase Total Creatine Kinase Total Protein Albumin Urine WBC (Auto) Crossmatch 06/16/16 06/17/16 06/17/16 22:53 04:48 05:35 WBC RBC Hgb POC Hgb Hct POC Hct MCH MCHC RDW Plt Count Lymph % (Auto) [place] % (Auto) Lymph # [place] # Baso # Seg Neutrophils % Seg Neuts % (Manual) Lymphocytes % (Manual) Monocytes % (Manual) Nucleated RBC % Seg Neutrophils # Seg Neutrophils # Man Lymphocytes # (Manual) Monocytes # (Manual) PT INR APTT Fibrinogen Heparin Anti-Xa Level POC ABG pH POC ABG pCO2 33.9 L 22.2 L POC ABG pO2 152 H 154 H POC Potassium POC Chloride Sodium 150 H Potassium 3.4 L Chloride 114.2 H Carbon Dioxide 16 L POC BUN BUN Creatinine Glucose 221 H POC Glucose Calcium 7.6 L D Magnesium AST Alkaline Phosphatase Lactate Dehydrogenase Total Creatine Kinase Total Protein Albumin Urine WBC (Auto) Crossmatch 06/17/16 06/18/16 06/18/16 09:22 07:26 08:25 WBC 20.3 H RBC 3.41 L Hgb 9.9 L POC Hgb Hct 29.7 L POC Hct MCH MCHC RDW Plt Count Lymph % (Auto) [place] % (Auto) Lymph # [place] # Baso # Seg Neutrophils % Seg Neuts % (Manual) 81.0 H Lymphocytes % (Manual) 6.0 L Monocytes % (Manual) 12.0 H Nucleated RBC % Seg Neutrophils # Seg Neutrophils # Man 16.4 H Lymphocytes # (Manual) Monocytes # (Manual) 2.4 H PT INR APTT Fibrinogen Heparin Anti-Xa Level POC ABG pH POC ABG pCO2 POC ABG pO2 POC Potassium POC Chloride Sodium Potassium 3.1 L Chloride Carbon Dioxide POC BUN BUN Creatinine Glucose 136 H POC Glucose 141 H Calcium 7.5 L Magnesium AST Alkaline Phosphatase Lactate Dehydrogenase Total Creatine Kinase Total Protein Albumin Urine WBC (Auto) Crossmatch 06/18/16 06/18/16 06/18/16 08:25 11:09 19:40 WBC RBC Hgb 6.5 L D POC Hgb Hct 19.3 L* D POC Hct MCH MCHC RDW Plt Count 131 L Lymph % (Auto) [place] % (Auto) Lymph # [place] # Baso # Seg Neutrophils % Seg Neuts % (Manual) Lymphocytes % (Manual) Monocytes % (Manual) Nucleated RBC % Seg Neutrophils # Seg Neutrophils # Man Lymphocytes # (Manual) Monocytes # (Manual) PT INR APTT Fibrinogen Heparin Anti-Xa Level POC ABG pH 7.490 H POC ABG pCO2 POC ABG pO2 131 H POC Potassium POC Chloride Sodium Potassium Chloride Carbon Dioxide POC BUN BUN Creatinine Glucose POC Glucose 125 H Calcium Magnesium AST Alkaline Phosphatase Lactate Dehydrogenase Total Creatine Kinase Total Protein Albumin Urine WBC (Auto) Crossmatch 06/18/16 06/19/16 06/19/16 21:10 07:07 07:28 WBC 13.6 H RBC 2.17 L Hgb 6.5 L POC Hgb Hct 18.8 L* POC Hct MCH MCHC 35 H RDW Plt Count 131 L Lymph % (Auto) 10.1 L [place] % (Auto) 9.3 H Lymph # [place] # 1.3 H Baso # Seg Neutrophils % 79.7 H Seg Neuts % (Manual) Lymphocytes % (Manual) Monocytes % (Manual) Nucleated RBC % Seg Neutrophils # 10.8 H Seg Neutrophils # Man Lymphocytes # (Manual) Monocytes # (Manual) PT INR APTT Fibrinogen Heparin Anti-Xa Level 0.75 H POC ABG pH POC ABG pCO2 POC ABG pO2 POC Potassium POC Chloride Sodium Potassium 3.5 L Chloride Carbon Dioxide POC BUN BUN Creatinine Glucose 104 H POC Glucose Calcium 7.6 L Magnesium 1.4 L AST Alkaline Phosphatase Lactate Dehydrogenase Total Creatine Kinase Total Protein Albumin Urine WBC (Auto) Crossmatch 06/20/16 06/20/16 06/20/16 04:15 18:15 18:15 WBC 16.6 H RBC 1.19 L Hgb 9.2 L 3.5 L* D POC Hgb Hct 27.5 L D 11.0 L* D POC Hct MCH MCHC RDW Plt Count 138 L Lymph % (Auto) [place] % (Auto) Lymph # [place] # Baso # Seg Neutrophils % Seg Neuts % (Manual) Lymphocytes % (Manual) Monocytes % (Manual) Nucleated RBC % Seg Neutrophils # Seg Neutrophils # Man Lymphocytes # (Manual) Monocytes # (Manual) PT INR APTT Fibrinogen Heparin Anti-Xa Level POC ABG pH POC ABG pCO2 POC ABG pO2 POC Potassium POC Chloride Sodium 146 H Potassium Chloride Carbon Dioxide 14 L D POC BUN BUN Creatinine Glucose 31 L* POC Glucose Calcium 6.7 L Magnesium AST Alkaline Phosphatase Lactate Dehydrogenase Total Creatine Kinase Total Protein Albumin Urine WBC (Auto) Crossmatch 06/20/16 06/20/16 06/20/16 18:15 19:33 19:36 WBC RBC Hgb POC Hgb Hct POC Hct MCH MCHC RDW Plt Count Lymph % (Auto) [place] % (Auto) Lymph # [place] # Baso # Seg Neutrophils % Seg Neuts % (Manual) Lymphocytes % (Manual) Monocytes % (Manual) Nucleated RBC % Seg Neutrophils # Seg Neutrophils # Man Lymphocytes # (Manual) Monocytes # (Manual) PT INR APTT Fibrinogen Heparin Anti-Xa Level POC ABG pH POC ABG pCO2 26.3 L POC ABG pO2 394 H POC Potassium POC Chloride Sodium Potassium Chloride Carbon Dioxide POC BUN BUN Creatinine Glucose POC Glucose 212 H Calcium Magnesium AST Alkaline Phosphatase Lactate Dehydrogenase Total Creatine Kinase Total Protein Albumin Urine WBC (Auto) Crossmatch See Detail 06/20/16 06/20/16 06/21/16 22:01 23:00 00:35 WBC RBC Hgb POC Hgb Hct POC Hct MCH MCHC RDW Plt Count Lymph % (Auto) [place] % (Auto) Lymph # [place] # Baso # Seg Neutrophils % Seg Neuts % (Manual) Lymphocytes % (Manual) Monocytes % (Manual) Nucleated RBC % Seg Neutrophils # Seg Neutrophils # Man Lymphocytes # (Manual) Monocytes # (Manual) PT 21.3 H INR 1.85 H APTT 48.4 H Fibrinogen Heparin Anti-Xa Level POC ABG pH POC ABG pCO2 POC ABG pO2 POC Potassium POC Chloride Sodium Potassium Chloride Carbon Dioxide POC BUN BUN Creatinine Glucose POC Glucose 149 H 147 H Calcium Magnesium AST Alkaline Phosphatase Lactate Dehydrogenase Total Creatine Kinase Total Protein Albumin Urine WBC (Auto) Crossmatch 06/21/16 06/21/16 06/21/16 04:30 04:30 06:01 WBC 21.7 H RBC 3.58 L Hgb POC Hgb Hct POC Hct MCH MCHC 35 H RDW Plt Count 116 L Lymph % (Auto) [place] % (Auto) Lymph # [place] # Baso # Seg Neutrophils % Seg Neuts % (Manual) Lymphocytes % (Manual) 8.0 L Monocytes % (Manual) Nucleated RBC % 3.0 H Seg Neutrophils # Seg Neutrophils # Man 13.7 H Lymphocytes # (Manual) Monocytes # (Manual) 1.5 H PT INR APTT Fibrinogen Heparin Anti-Xa Level POC ABG pH 7.541 H POC ABG pCO2 21.1 L POC ABG pO2 108 H POC Potassium POC Chloride Sodium Potassium 3.0 L Chloride 110.3 H Carbon Dioxide 18 L POC BUN BUN 18 H Creatinine Glucose 141 H POC Glucose Calcium 6.4 L Magnesium AST Alkaline Phosphatase Lactate Dehydrogenase Total Creatine Kinase Total Protein Albumin Urine WBC (Auto) Crossmatch 06/21/16 06/21/1616 07:00 10:02 17:51 WBC RBC Hgb 8.3 L POC Hgb Hct 24.7 L D POC Hct MCH MCHC RDW Plt Count Lymph % (Auto) [place] % (Auto) Lymph # [place] # Baso # Seg Neutrophils % Seg Neuts % (Manual) Lymphocytes % (Manual) Monocytes % (Manual) Nucleated RBC % Seg Neutrophils # Seg Neutrophils # Man Lymphocytes # (Manual) Monocytes # (Manual) PT INR APTT Fibrinogen Heparin Anti-Xa Level POC ABG pH POC ABG pCO2 POC ABG pO2 POC Potassium POC Chloride Sodium Potassium Chloride Carbon Dioxide POC BUN BUN Creatinine Glucose POC Glucose 132 H 106 H Calcium Magnesium AST Alkaline Phosphatase Lactate Dehydrogenase Total Creatine Kinase Total Protein Albumin Urine WBC (Auto) Crossmatch 06/22/16 06/22/16 06/22/16 05:00 05:00 06:40 WBC 20.6 H RBC 3.54 L Hgb POC Hgb Hct POC Hct MCH MCHC RDW Plt Count 129 L Lymph % (Auto) [place] % (Auto) Lymph # [place] # Baso # Seg Neutrophils % Seg Neuts % (Manual) 87.0 H Lymphocytes % (Manual) 4.0 L Monocytes % (Manual) Nucleated RBC % 4.0 H Seg Neutrophils # Seg Neutrophils # Man 17.9 H Lymphocytes # (Manual) 0.8 L Monocytes # (Manual) 1.2 H PT INR APTT Fibrinogen Heparin Anti-Xa Level POC ABG pH POC ABG pCO2 21.9 L POC ABG pO2 118 H POC Potassium POC Chloride Sodium Potassium Chloride 109.9 H Carbon Dioxide 15 L POC BUN BUN 26 H Creatinine 2.2 H D Glucose POC Glucose Calcium 6.3 L Magnesium AST Alkaline Phosphatase Lactate Dehydrogenase Total Creatine Kinase Total Protein Albumin Urine WBC (Auto) Crossmatch 06/22/16 06/22/16 06/22/16 09:15 09:15 23:17 WBC RBC Hgb 9.1 L POC Hgb Hct 26.9 L POC Hct MCH MCHC RDW Plt Count 116 L Lymph % (Auto) [place] % (Auto) Lymph # [place] # Baso # Seg Neutrophils % Seg Neuts % (Manual) Lymphocytes % (Manual) Monocytes % (Manual) Nucleated RBC % Seg Neutrophils # Seg Neutrophils # Man Lymphocytes # (Manual) Monocytes # (Manual) PT 15.8 H INR 1.27 H APTT Fibrinogen Heparin Anti-Xa Level POC ABG pH POC ABG pCO2 POC ABG pO2 POC Potassium POC Chloride Sodium Potassium Chloride Carbon Dioxide POC BUN BUN Creatinine Glucose POC Glucose 134 H Calcium Magnesium AST Alkaline Phosphatase Lactate Dehydrogenase Total Creatine Kinase Total Protein Albumin Urine WBC (Auto) Crossmatch 06/23/16 06/23/16 06/23/16 05:43 05:43 09:44 WBC 13.8 H RBC 2.70 L Hgb 8.1 L POC Hgb Hct 24.2 L POC Hct MCH MCHC RDW Plt Count 93 L Lymph % (Auto) 6.2 L [place] % (Auto) Lymph # 0.9 L [place] # Baso # Seg Neutrophils % 89.2 H Seg Neuts % (Manual) Lymphocytes % (Manual) Monocytes % (Manual) Nucleated RBC % Seg Neutrophils # 12.3 H Seg Neutrophils # Man Lymphocytes # (Manual) Monocytes # (Manual) PT INR APTT Fibrinogen Heparin Anti-Xa Level POC ABG pH 7.593 H POC ABG pCO2 26.8 L POC ABG pO2 141 H POC Potassium POC Chloride Sodium 146 H Potassium Chloride Carbon Dioxide POC BUN BUN 32 H Creatinine 2.6 H Glucose 142 H POC Glucose Calcium 7.0 L Magnesium AST Alkaline Phosphatase Lactate Dehydrogenase Total Creatine Kinase Total Protein Albumin Urine WBC (Auto) Crossmatch 06/23/16 06/23/16 06/23/16 11:23 17:42 23:32 WBC RBC Hgb POC Hgb Hct POC Hct MCH MCHC RDW Plt Count Lymph % (Auto) [place] % (Auto) Lymph # [place] # Baso # Seg Neutrophils % Seg Neuts % (Manual) Lymphocytes % (Manual) Monocytes % (Manual) Nucleated RBC % Seg Neutrophils # Seg Neutrophils # Man Lymphocytes # (Manual) Monocytes # (Manual) PT INR APTT Fibrinogen Heparin Anti-Xa Level POC ABG pH POC ABG pCO2 POC ABG pO2 POC Potassium POC Chloride Sodium Potassium Chloride Carbon Dioxide POC BUN BUN Creatinine Glucose POC Glucose 138 H 133 H 111 H Calcium Magnesium AST Alkaline Phosphatase Lactate Dehydrogenase Total Creatine Kinase Total Protein Albumin Urine WBC (Auto) Crossmatch 06/24/16 06/24/16 06/24/16 06:27 08:10 08:10 WBC 16.6 H RBC 2.91 L Hgb 8.9 L POC Hgb Hct 26.4 L POC Hct MCH MCHC RDW 15.6 H Plt Count 115 L Lymph % (Auto) 4.6 L [place] % (Auto) Lymph # 0.8 L [place] # 1.0 H Baso # Seg Neutrophils % 89.2 H Seg Neuts % (Manual) Lymphocytes % (Manual) Monocytes % (Manual) Nucleated RBC % Seg Neutrophils # 14.9 H Seg Neutrophils # Man Lymphocytes # (Manual) Monocytes # (Manual) PT INR APTT Fibrinogen Heparin Anti-Xa Level POC ABG pH POC ABG pCO2 POC ABG pO2 POC Potassium POC Chloride Sodium 146 H Potassium Chloride Carbon Dioxide POC BUN BUN 37 H Creatinine 2.9 H Glucose POC Glucose 109 H Calcium 7.5 L Magnesium AST Alkaline Phosphatase Lactate Dehydrogenase Total Creatine Kinase Total Protein Albumin Urine WBC (Auto) Crossmatch 06/24/16 06/24/16 06/24/16 12:05 17:57 22:13 WBC RBC Hgb POC Hgb Hct POC Hct MCH MCHC RDW Plt Count Lymph % (Auto) [place] % (Auto) Lymph # [place] # Baso # Seg Neutrophils % Seg Neuts % (Manual) Lymphocytes % (Manual) Monocytes % (Manual) Nucleated RBC % Seg Neutrophils # Seg Neutrophils # Man Lymphocytes # (Manual) Monocytes # (Manual) PT INR APTT Fibrinogen Heparin Anti-Xa Level POC ABG pH POC ABG pCO2 POC ABG pO2 POC Potassium POC Chloride Sodium Potassium Chloride Carbon Dioxide POC BUN BUN Creatinine Glucose POC Glucose 117 H 124 H 116 H Calcium Magnesium AST Alkaline Phosphatase Lactate Dehydrogenase Total Creatine Kinase Total Protein Albumin Urine WBC (Auto) Crossmatch 06/25/16 06/25/16 06/25/16 06:42 06:49 12:14 WBC RBC Hgb POC Hgb Hct POC Hct MCH MCHC RDW Plt Count Lymph % (Auto) [place] % (Auto) Lymph # [place] # Baso # Seg Neutrophils % Seg Neuts % (Manual) Lymphocytes % (Manual) Monocytes % (Manual) Nucleated RBC % Seg Neutrophils # Seg Neutrophils # Man Lymphocytes # (Manual) Monocytes # (Manual) PT INR APTT Fibrinogen Heparin Anti-Xa Level POC ABG pH POC ABG pCO2 POC ABG pO2 POC Potassium POC Chloride Sodium Potassium Chloride Carbon Dioxide POC BUN BUN 46 H Creatinine 3.6 H Glucose 133 H POC Glucose 137 H 136 H Calcium 7.4 L Magnesium AST Alkaline Phosphatase Lactate Dehydrogenase Total Creatine Kinase Total Protein Albumin Urine WBC (Auto) Crossmatch 06/25/16 06/25/16 06/26/16 16:07 21:32 05:55 WBC RBC Hgb POC Hgb Hct POC Hct MCH MCHC RDW Plt Count Lymph % (Auto) [place] % (Auto) Lymph # [place] # Baso # Seg Neutrophils % Seg Neuts % (Manual) Lymphocytes % (Manual) Monocytes % (Manual) Nucleated RBC % Seg Neutrophils # Seg Neutrophils # Man Lymphocytes # (Manual) Monocytes # (Manual) PT INR APTT Fibrinogen Heparin Anti-Xa Level POC ABG pH POC ABG pCO2 POC ABG pO2 POC Potassium POC Chloride Sodium Potassium Chloride Carbon Dioxide 20 L POC BUN BUN 55 H Creatinine 4.2 H Glucose 120 H POC Glucose 146 H 146 H Calcium 7.5 L Magnesium AST Alkaline Phosphatase Lactate Dehydrogenase Total Creatine Kinase Total Protein Albumin Urine WBC (Auto) Crossmatch 06/26/16 06/26/16 06/26/16 06:30 11:38 16:45 WBC RBC Hgb POC Hgb Hct POC Hct MCH MCHC RDW Plt Count Lymph % (Auto) [place] % (Auto) Lymph # [place] # Baso # Seg Neutrophils % Seg Neuts % (Manual) Lymphocytes % (Manual) Monocytes % (Manual) Nucleated RBC % Seg Neutrophils # Seg Neutrophils # Man Lymphocytes # (Manual) Monocytes # (Manual) PT INR APTT Fibrinogen Heparin Anti-Xa Level POC ABG pH POC ABG pCO2 POC ABG pO2 POC Potassium POC Chloride Sodium Potassium Chloride Carbon Dioxide POC BUN BUN Creatinine Glucose POC Glucose 128 H 143 H 121 H Calcium Magnesium AST Alkaline Phosphatase Lactate Dehydrogenase Total Creatine Kinase Total Protein Albumin Urine WBC (Auto) Crossmatch 06/26/16 06/26/16 06/27/16 22:57 22:57 00:47 WBC RBC Hgb 8.4 L POC Hgb Hct 25.1 L POC Hct MCH MCHC RDW Plt Count Lymph % (Auto) [place] % (Auto) Lymph # [place] # Baso # Seg Neutrophils % Seg Neuts % (Manual) Lymphocytes % (Manual) Monocytes % (Manual) Nucleated RBC % Seg Neutrophils # Seg Neutrophils # Man Lymphocytes # (Manual) Monocytes # (Manual) PT 19.9 H INR 1.69 H APTT Fibrinogen Heparin Anti-Xa Level POC ABG pH POC ABG pCO2 POC ABG pO2 POC Potassium POC Chloride Sodium Potassium Chloride Carbon Dioxide POC BUN BUN Creatinine Glucose POC Glucose 110 H Calcium Magnesium AST Alkaline Phosphatase Lactate Dehydrogenase Total Creatine Kinase Total Protein Albumin Urine WBC (Auto) Crossmatch 12/06/27/16 06/27/16 05:43 05:43 06:40 WBC RBC Hgb POC Hgb Hct POC Hct MCH MCHC RDW Plt Count Lymph % (Auto) [place] % (Auto) Lymph # [place] # Baso # Seg Neutrophils % Seg Neuts % (Manual) Lymphocytes % (Manual) Monocytes % (Manual) Nucleated RBC % Seg Neutrophils # Seg Neutrophils # Man Lymphocytes # (Manual) Monocytes # (Manual) PT INR APTT Fibrinogen Heparin Anti-Xa Level 2.00 H POC ABG pH POC ABG pCO2 POC ABG pO2 POC Potassium POC Chloride Sodium Potassium Chloride Carbon Dioxide 20 L POC BUN BUN 58 H Creatinine 4.8 H Glucose POC Glucose 109 H Calcium 8.1 L Magnesium AST Alkaline Phosphatase Lactate Dehydrogenase Total Creatine Kinase Total Protein Albumin Urine WBC (Auto) Crossmatch 06/27/16 06/27/16 06/27/16 08:15 16:46 17:47 WBC RBC Hgb POC Hgb Hct POC Hct MCH MCHC RDW Plt Count Lymph % (Auto) [place] % (Auto) Lymph # [place] # Baso # Seg Neutrophils % Seg Neuts % (Manual) Lymphocytes % (Manual) Monocytes % (Manual) Nucleated RBC % Seg Neutrophils # Seg Neutrophils # Man Lymphocytes # (Manual) Monocytes # (Manual) PT INR APTT Fibrinogen Heparin Anti-Xa Level > 2.00 H 1.87 H POC ABG pH POC ABG pCO2 POC ABG pO2 POC Potassium POC Chloride Sodium Potassium Chloride Carbon Dioxide POC BUN BUN Creatinine Glucose POC Glucose 231 H Calcium Magnesium AST Alkaline Phosphatase Lactate Dehydrogenase Total Creatine Kinase Total Protein Albumin Urine WBC (Auto) Crossmatch 06/27/16 06/27/16 06/28/16 21:23 23:54 06:27 WBC RBC Hgb POC Hgb Hct POC Hct MCH MCHC RDW Plt Count Lymph % (Auto) [place] % (Auto) Lymph # [place] # Baso # Seg Neutrophils % Seg Neuts % (Manual) Lymphocytes % (Manual) Monocytes % (Manual) Nucleated RBC % Seg Neutrophils # Seg Neutrophils # Man Lymphocytes # (Manual) Monocytes # (Manual) PT INR APTT Fibrinogen Heparin Anti-Xa Level 1.70 H POC ABG pH POC ABG pCO2 POC ABG pO2 POC Potassium POC Chloride Sodium Potassium Chloride Carbon Dioxide POC BUN BUN 62 H Creatinine 4.5 H Glucose 111 H POC Glucose 122 H Calcium 8.3 L Magnesium AST Alkaline Phosphatase Lactate Dehydrogenase Total Creatine Kinase Total Protein Albumin Urine WBC (Auto) Crossmatch 06/28/16 06/28/16 06/28/16 06:27 11:47 14:14 WBC RBC Hgb 7.7 L POC Hgb Hct 22.9 L POC Hct MCH MCHC RDW Plt Count Lymph % (Auto) [place] % (Auto) Lymph # [place] # Baso # Seg Neutrophils % Seg Neuts % (Manual) Lymphocytes % (Manual) Monocytes % (Manual) Nucleated RBC % Seg Neutrophils # Seg Neutrophils # Man Lymphocytes # (Manual) Monocytes # (Manual) PT INR APTT Fibrinogen Heparin Anti-Xa Level POC ABG pH 7.461 H POC ABG pCO2 31.9 L POC ABG pO2 73 L POC Potassium POC Chloride Sodium Potassium Chloride Carbon Dioxide POC BUN BUN Creatinine Glucose POC Glucose 155 H Calcium Magnesium AST Alkaline Phosphatase Lactate Dehydrogenase Total Creatine Kinase Total Protein Albumin Urine WBC (Auto) Crossmatch 06/28/16 06/28/16 06/28/16 16:27 20:47 22:59 WBC RBC Hgb POC Hgb Hct POC Hct MCH MCHC RDW Plt Count Lymph % (Auto) [place] % (Auto) Lymph # [place] # Baso # Seg Neutrophils % Seg Neuts % (Manual) Lymphocytes % (Manual) Monocytes % (Manual) Nucleated RBC % Seg Neutrophils # Seg Neutrophils # Man Lymphocytes # (Manual) Monocytes # (Manual) PT INR APTT Fibrinogen Heparin Anti-Xa Level 1.16 H POC ABG pH POC ABG pCO2 POC ABG pO2 POC Potassium POC Chloride Sodium Potassium Chloride Carbon Dioxide POC BUN BUN Creatinine Glucose POC Glucose 193 H 126 H Calcium Magnesium AST Alkaline Phosphatase Lactate Dehydrogenase Total Creatine Kinase Total Protein Albumin Urine WBC (Auto) Crossmatch 06/29/16 06/29/16 06/29/16 05:51 09:10 09:10 WBC RBC Hgb POC Hgb Hct POC Hct MCH MCHC RDW Plt Count Lymph % (Auto) [place] % (Auto) Lymph # [place] # Baso # Seg Neutrophils % Seg Neuts % (Manual) Lymphocytes % (Manual) Monocytes % (Manual) Nucleated RBC % Seg Neutrophils # Seg Neutrophils # Man Lymphocytes # (Manual) Monocytes # (Manual) PT INR APTT Fibrinogen Heparin Anti-Xa Level 0.92 H POC ABG pH POC ABG pCO2 POC ABG pO2 POC Potassium POC Chloride Sodium Potassium Chloride Carbon Dioxide POC BUN BUN 53 H Creatinine 3.7 H Glucose 139 H POC Glucose 121 H Calcium 8.2 L Magnesium AST Alkaline Phosphatase Lactate Dehydrogenase Total Creatine Kinase Total Protein Albumin Urine WBC (Auto) Crossmatch 06/29/16 06/30/16 06/30/16 21:22 05:09 08:07 WBC RBC Hgb 7.3 L POC Hgb Hct 21.9 L POC Hct MCH MCHC RDW Plt Count Lymph % (Auto) [place] % (Auto) Lymph # [place] # Baso # Seg Neutrophils % Seg Neuts % (Manual) Lymphocytes % (Manual) Monocytes % (Manual) Nucleated RBC % Seg Neutrophils # Seg Neutrophils # Man Lymphocytes # (Manual) Monocytes # (Manual) PT INR APTT Fibrinogen Heparin Anti-Xa Level POC ABG pH POC ABG pCO2 POC ABG pO2 POC Potassium POC Chloride Sodium Potassium Chloride Carbon Dioxide POC BUN BUN Creatinine Glucose POC Glucose 108 H 106 H Calcium Magnesium AST Alkaline Phosphatase Lactate Dehydrogenase Total Creatine Kinase Total Protein Albumin Urine WBC (Auto) Crossmatch 06/30/16 06/30/16 06/30/16 10:48 12:13 16:48 WBC RBC Hgb POC Hgb Hct POC Hct MCH MCHC RDW Plt Count Lymph % (Auto) [place] % (Auto) Lymph # [place] # Baso # Seg Neutrophils % Seg Neuts % (Manual) Lymphocytes % (Manual) Monocytes % (Manual) Nucleated RBC % Seg Neutrophils # Seg Neutrophils # Man Lymphocytes # (Manual) Monocytes # (Manual) PT INR APTT Fibrinogen Heparin Anti-Xa Level POC ABG pH POC ABG pCO2 POC ABG pO2 POC Potassium POC Chloride Sodium Potassium Chloride Carbon Dioxide POC BUN BUN 46 H Creatinine 3.0 H Glucose POC Glucose 153 H 152 H Calcium Magnesium AST Alkaline Phosphatase Lactate Dehydrogenase Total Creatine Kinase Total Protein Albumin Urine WBC (Auto) Crossmatch 06/30/16 07/01/16 07/01/16 21:47 05:47 07:44 WBC 19.8 H RBC 2.45 L Hgb 7.2 L POC Hgb Hct 22.2 L POC Hct MCH MCHC RDW Plt Count 481 H Lymph % (Auto) 5.5 L [place] % (Auto) Lymph # 1.1 L [place] # 1.4 H Baso # Seg Neutrophils % 86.8 H Seg Neuts % (Manual) Lymphocytes % (Manual) Monocytes % (Manual) Nucleated RBC % Seg Neutrophils # 17.1 H Seg Neutrophils # Man Lymphocytes # (Manual) Monocytes # (Manual) PT INR APTT Fibrinogen Heparin Anti-Xa Level POC ABG pH POC ABG pCO2 POC ABG pO2 POC Potassium POC Chloride Sodium Potassium Chloride Carbon Dioxide POC BUN BUN Creatinine Glucose POC Glucose 162 H 124 H Calcium Magnesium AST Alkaline Phosphatase Lactate Dehydrogenase Total Creatine Kinase Total Protein Albumin Urine WBC (Auto) Crossmatch 07/01/16 07/01/16 07/01/16 07:44 11:55 16:16 WBC RBC Hgb POC Hgb Hct POC Hct MCH MCHC RDW Plt Count Lymph % (Auto) [place] % (Auto) Lymph # [place] # Baso # Seg Neutrophils % Seg Neuts % (Manual) Lymphocytes % (Manual) Monocytes % (Manual) Nucleated RBC % Seg Neutrophils # Seg Neutrophils # Man Lymphocytes # (Manual) Monocytes # (Manual) PT INR APTT Fibrinogen Heparin Anti-Xa Level POC ABG pH POC ABG pCO2 POC ABG pO2 POC Potassium POC Chloride Sodium Potassium 3.1 L Chloride Carbon Dioxide POC BUN BUN 38 H Creatinine 2.2 H Glucose 114 H POC Glucose 114 H 143 H Calcium Magnesium AST Alkaline Phosphatase Lactate Dehydrogenase Total Creatine Kinase Total Protein Albumin Urine WBC (Auto) Crossmatch 07/01/16 07/02/16 07/02/16 21:42 05:40 06:46 WBC 18.1 H RBC 2.45 L Hgb 7.3 L POC Hgb Hct 21.8 L POC Hct MCH MCHC RDW Plt Count 490 H Lymph % (Auto) 6.1 L [place] % (Auto) Lymph # 1.1 L [place] # 1.1 H Baso # 0.2 H Seg Neutrophils % 86.0 H Seg Neuts % (Manual) Lymphocytes % (Manual) Monocytes % (Manual) Nucleated RBC % Seg Neutrophils # 15.6 H Seg Neutrophils # Man Lymphocytes # (Manual) Monocytes # (Manual) PT INR APTT Fibrinogen Heparin Anti-Xa Level POC ABG pH POC ABG pCO2 POC ABG pO2 POC Potassium POC Chloride Sodium Potassium Chloride Carbon Dioxide POC BUN BUN Creatinine Glucose POC Glucose 135 H 135 H Calcium Magnesium AST Alkaline Phosphatase Lactate Dehydrogenase Total Creatine Kinase Total Protein Albumin Urine WBC (Auto) Crossmatch 07/02/16 07/02/16 07/02/16 06:46 06:49 11:23 WBC RBC Hgb POC Hgb Hct POC Hct MCH MCHC RDW Plt Count Lymph % (Auto) [place] % (Auto) Lymph # [place] # Baso # Seg Neutrophils % Seg Neuts % (Manual) Lymphocytes % (Manual) Monocytes % (Manual) Nucleated RBC % Seg Neutrophils # Seg Neutrophils # Man Lymphocytes # (Manual) Monocytes # (Manual) PT INR APTT Fibrinogen Heparin Anti-Xa Level POC ABG pH POC ABG pCO2 POC ABG pO2 POC Potassium POC Chloride Sodium Potassium 2.8 L* Chloride Carbon Dioxide POC BUN BUN 30 H Creatinine 1.8 H Glucose 121 H POC Glucose 121 H Calcium 8.1 L Magnesium 1.3 L AST Alkaline Phosphatase Lactate Dehydrogenase Total Creatine Kinase Total Protein Albumin Urine WBC (Auto) Crossmatch 07/02/16 07/02/16 07/03/16 17:02 21:31 05:35 WBC RBC Hgb POC Hgb Hct POC Hct MCH MCHC RDW Plt Count Lymph % (Auto) [place] % (Auto) Lymph # [place] # Baso # Seg Neutrophils % Seg Neuts % (Manual) Lymphocytes % (Manual) Monocytes % (Manual) Nucleated RBC % Seg Neutrophils # Seg Neutrophils # Man Lymphocytes # (Manual) Monocytes # (Manual) PT INR APTT Fibrinogen Heparin Anti-Xa Level POC ABG pH POC ABG pCO2 POC ABG pO2 POC Potassium POC Chloride Sodium Potassium Chloride Carbon Dioxide POC BUN BUN Creatinine Glucose POC Glucose 121 H 159 H 149 H Calcium Magnesium AST Alkaline Phosphatase Lactate Dehydrogenase Total Creatine Kinase Total Protein Albumin Urine WBC (Auto) Crossmatch 07/03/16 07/03/16 07/03/16 06:45 06:45 06:45 WBC 16.8 H RBC 2.21 L Hgb 6.5 L POC Hgb Hct 19.4 L* POC Hct MCH MCHC RDW Plt Count 503 H Lymph % (Auto) 6.4 L [place] % (Auto) Lymph # 1.1 L [place] # 1.1 H Baso # Seg Neutrophils % 85.6 H Seg Neuts % (Manual) Lymphocytes % (Manual) Monocytes % (Manual) Nucleated RBC % Seg Neutrophils # 14.4 H Seg Neutrophils # Man Lymphocytes # (Manual) Monocytes # (Manual) PT INR APTT Fibrinogen Heparin Anti-Xa Level POC ABG pH POC ABG pCO2 POC ABG pO2 POC Potassium POC Chloride Sodium Potassium 2.9 L* Chloride Carbon Dioxide POC BUN BUN 21 H Creatinine 1.6 H Glucose 126 H POC Glucose Calcium 8.0 L Magnesium 1.6 L AST Alkaline Phosphatase Lactate Dehydrogenase Total Creatine Kinase Total Protein Albumin Urine WBC (Auto) Crossmatch 07/03/16 07/03/16 07/03/16 12:54 19:00 20:01 WBC RBC Hgb POC Hgb Hct POC Hct MCH MCHC RDW Plt Count Lymph % (Auto) [place] % (Auto) Lymph # [place] # Baso # Seg Neutrophils % Seg Neuts % (Manual) Lymphocytes % (Manual) Monocytes % (Manual) Nucleated RBC % Seg Neutrophils # Seg Neutrophils # Man Lymphocytes # (Manual) Monocytes # (Manual) PT INR APTT Fibrinogen Heparin Anti-Xa Level POC ABG pH 7.302 L POC ABG pCO2 49.8 H POC ABG pO2 422 H POC Potassium POC Chloride Sodium Potassium Chloride Carbon Dioxide POC BUN BUN Creatinine Glucose POC Glucose 129 H Calcium Magnesium AST Alkaline Phosphatase Lactate Dehydrogenase Total Creatine Kinase Total Protein Albumin Urine WBC (Auto) Crossmatch See Detail 07/03/16 07/04/16 07/04/16 23:09 04:30 04:30 WBC 19.6 H RBC 3.21 L Hgb 9.4 L POC Hgb Hct 28.2 L POC Hct MCH MCHC RDW Plt Count Lymph % (Auto) 6.5 L [place] % (Auto) Lymph # [place] # 1.2 H Baso # Seg Neutrophils % 86.4 H Seg Neuts % (Manual) Lymphocytes % (Manual) Monocytes % (Manual) Nucleated RBC % Seg Neutrophils # 16.9 H Seg Neutrophils # Man Lymphocytes # (Manual) Monocytes # (Manual) PT INR APTT Fibrinogen Heparin Anti-Xa Level POC ABG pH POC ABG pCO2 POC ABG pO2 POC Potassium POC Chloride Sodium Potassium 3.5 L D Chloride 111.2 H Carbon Dioxide 20 L POC BUN BUN 18 H Creatinine Glucose POC Glucose 111 H Calcium 7.0 L Magnesium AST Alkaline Phosphatase Lactate Dehydrogenase Total Creatine Kinase Total Protein Albumin Urine WBC (Auto) Crossmatch 07/04/16 07/04/16 07/04/16 05:44 12:50 14:33 WBC RBC Hgb POC Hgb Hct POC Hct MCH MCHC RDW Plt Count Lymph % (Auto) [place] % (Auto) Lymph # [place] # Baso # Seg Neutrophils % Seg Neuts % (Manual) Lymphocytes % (Manual) Monocytes % (Manual) Nucleated RBC % Seg Neutrophils # Seg Neutrophils # Man Lymphocytes # (Manual) Monocytes # (Manual) PT INR APTT Fibrinogen Heparin Anti-Xa Level POC ABG pH 7.465 H 7.468 H POC ABG pCO2 29.5 L 29.1 L 33.1 L POC ABG pO2 110 H 39 L POC Potassium POC Chloride Sodium Potassium Chloride Carbon Dioxide POC BUN BUN Creatinine Glucose POC Glucose Calcium Magnesium AST Alkaline Phosphatase Lactate Dehydrogenase Total Creatine Kinase Total Protein Albumin Urine WBC (Auto) Crossmatch 07/04/16 07/05/16 07/05/16 16:49 00:20 04:19 WBC 16.2 H RBC 3.44 L Hgb POC Hgb Hct POC Hct MCH MCHC RDW Plt Count Lymph % (Auto) 5.2 L [place] % (Auto) 7.5 H Lymph # 0.8 L [place] # 1.2 H Baso # Seg Neutrophils % 86.5 H Seg Neuts % (Manual) Lymphocytes % (Manual) Monocytes % (Manual) Nucleated RBC % Seg Neutrophils # 14.0 H Seg Neutrophils # Man Lymphocytes # (Manual) Monocytes # (Manual) PT INR APTT Fibrinogen Heparin Anti-Xa Level POC ABG pH POC ABG pCO2 31.1 L POC ABG pO2 110 H POC Potassium POC Chloride Sodium Potassium Chloride Carbon Dioxide POC BUN BUN Creatinine Glucose POC Glucose 168 H Calcium Magnesium AST Alkaline Phosphatase Lactate Dehydrogenase Total Creatine Kinase Total Protein Albumin Urine WBC (Auto) Crossmatch 07/05/16 07/05/16 07/05/16 04:19 06:01 09:54 WBC RBC Hgb POC Hgb Hct POC Hct MCH MCHC RDW Plt Count Lymph % (Auto) [place] % (Auto) Lymph # [place] # Baso # Seg Neutrophils % Seg Neuts % (Manual) Lymphocytes % (Manual) Monocytes % (Manual) Nucleated RBC % Seg Neutrophils # Seg Neutrophils # Man Lymphocytes # (Manual) Monocytes # (Manual) PT INR APTT Fibrinogen Heparin Anti-Xa Level POC ABG pH POC ABG pCO2 POC ABG pO2 POC Potassium POC Chloride Sodium 146 H Potassium 3.5 L Chloride 109.1 H Carbon Dioxide POC BUN BUN Creatinine Glucose 135 H POC Glucose 146 H 284 H Calcium 7.8 L Magnesium AST Alkaline Phosphatase Lactate Dehydrogenase Total Creatine Kinase Total Protein Albumin Urine WBC (Auto) Crossmatch 07/05/16 07/06/16 07/06/16 13:35 04:40 04:40 WBC 17.7 H RBC 3.32 L Hgb 9.8 L POC Hgb Hct 29.8 L POC Hct MCH MCHC RDW Plt Count Lymph % (Auto) [place] % (Auto) Lymph # [place] # Baso # Seg Neutrophils % Seg Neuts % (Manual) 85.0 H Lymphocytes % (Manual) 4.0 L Monocytes % (Manual) 10.0 H Nucleated RBC % Seg Neutrophils # Seg Neutrophils # Man 15.0 H Lymphocytes # (Manual) 0.7 L Monocytes # (Manual) 1.8 H PT INR APTT Fibrinogen Heparin Anti-Xa Level POC ABG pH POC ABG pCO2 POC ABG pO2 POC Potassium POC Chloride Sodium Potassium 3.5 L Chloride Carbon Dioxide 21 L POC BUN BUN Creatinine Glucose 108 H POC Glucose 130 H Calcium 7.8 L Magnesium AST Alkaline Phosphatase Lactate Dehydrogenase Total Creatine Kinase Total Protein Albumin Urine WBC (Auto) Crossmatch 07/06/16 07/06/16 07/06/16 07:46 11:49 15:31 WBC RBC Hgb POC Hgb Hct POC Hct MCH MCHC RDW Plt Count Lymph % (Auto) [place] % (Auto) Lymph # [place] # Baso # Seg Neutrophils % Seg Neuts % (Manual) Lymphocytes % (Manual) Monocytes % (Manual) Nucleated RBC % Seg Neutrophils # Seg Neutrophils # Man Lymphocytes # (Manual) Monocytes # (Manual) PT INR APTT Fibrinogen Heparin Anti-Xa Level POC ABG pH POC ABG pCO2 POC ABG pO2 POC Potassium POC Chloride Sodium Potassium Chloride Carbon Dioxide POC BUN BUN Creatinine Glucose POC Glucose 149 H 146 H 135 H Calcium Magnesium AST Alkaline Phosphatase Lactate Dehydrogenase Total Creatine Kinase Total Protein Albumin Urine WBC (Auto) Crossmatch 07/06/16 07/06/16 07/07/16 17:17 20:59 04:53 WBC 15.5 H RBC 3.55 L Hgb POC Hgb Hct POC Hct MCH MCHC RDW Plt Count Lymph % (Auto) 4.9 L [place] % (Auto) Lymph # 0.8 L [place] # 0.9 H Baso # Seg Neutrophils % 87.9 H Seg Neuts % (Manual) Lymphocytes % (Manual) Monocytes % (Manual) Nucleated RBC % Seg Neutrophils # 13.7 H Seg Neutrophils # Man Lymphocytes # (Manual) Monocytes # (Manual) PT INR APTT Fibrinogen Heparin Anti-Xa Level POC ABG pH POC ABG pCO2 POC ABG pO2 POC Potassium POC Chloride Sodium Potassium Chloride Carbon Dioxide POC BUN BUN Creatinine Glucose POC Glucose 140 H Calcium Magnesium AST Alkaline Phosphatase Lactate Dehydrogenase Total Creatine Kinase Total Protein Albumin Urine WBC (Auto) 67.0 H Crossmatch 07/07/16 07/07/16 07/07/16 04:53 06:13 07:15 WBC RBC Hgb POC Hgb Hct POC Hct MCH MCHC RDW Plt Count Lymph % (Auto) [place] % (Auto) Lymph # [place] # Baso # Seg Neutrophils % Seg Neuts % (Manual) Lymphocytes % (Manual) Monocytes % (Manual) Nucleated RBC % Seg Neutrophils # Seg Neutrophils # Man Lymphocytes # (Manual) Monocytes # (Manual) PT INR APTT Fibrinogen Heparin Anti-Xa Level POC ABG pH POC ABG pCO2 POC ABG pO2 POC Potassium POC Chloride Sodium Potassium 3.4 L Chloride Carbon Dioxide POC BUN BUN Creatinine Glucose 104 H POC Glucose 122 H 134 H Calcium 8.0 L Magnesium AST Alkaline Phosphatase Lactate Dehydrogenase Total Creatine Kinase Total Protein Albumin Urine WBC (Auto) Crossmatch 07/07/16 07/07/16 07/07/16 08:06 08:06 10:31 WBC RBC Hgb POC Hgb Hct POC Hct MCH MCHC RDW Plt Count Lymph % (Auto) [place] % (Auto) Lymph # [place] # Baso # Seg Neutrophils % Seg Neuts % (Manual) Lymphocytes % (Manual) Monocytes % (Manual) Nucleated RBC % Seg Neutrophils # Seg Neutrophils # Man Lymphocytes # (Manual) Monocytes # (Manual) PT INR APTT Fibrinogen Heparin Anti-Xa Level POC ABG pH POC ABG pCO2 POC ABG pO2 POC Potassium POC Chloride Sodium Potassium Chloride Carbon Dioxide POC BUN BUN Creatinine Glucose 111 H POC Glucose 145 H Calcium 7.9 L Magnesium AST 53 H Alkaline Phosphatase 164 H Lactate Dehydrogenase Total Creatine Kinase Total Protein 6.2 L Albumin 1.4 L Urine WBC (Auto) Crossmatch See Detail 07/07/16 07/07/16 07/07/16 12:08 13:57 16:44 WBC RBC Hgb 9.7 L POC Hgb Hct 30.1 L POC Hct MCH MCHC RDW Plt Count Lymph % (Auto) [place] % (Auto) Lymph # [place] # Baso # Seg Neutrophils % Seg Neuts % (Manual) Lymphocytes % (Manual) Monocytes % (Manual) Nucleated RBC % Seg Neutrophils # Seg Neutrophils # Man Lymphocytes # (Manual) Monocytes # (Manual) PT INR APTT Fibrinogen Heparin Anti-Xa Level POC ABG pH POC ABG pCO2 POC ABG pO2 POC Potassium POC Chloride Sodium Potassium Chloride Carbon Dioxide POC BUN BUN Creatinine Glucose POC Glucose 159 H 173 H Calcium Magnesium AST Alkaline Phosphatase Lactate Dehydrogenase Total Creatine Kinase Total Protein Albumin Urine WBC (Auto) Crossmatch 07/07/16 07/08/16 07/08/16 23:31 07:27 12:16 WBC RBC Hgb POC Hgb Hct POC Hct MCH MCHC RDW Plt Count Lymph % (Auto) [place] % (Auto) Lymph # [place] # Baso # Seg Neutrophils % Seg Neuts % (Manual) Lymphocytes % (Manual) Monocytes % (Manual) Nucleated RBC % Seg Neutrophils # Seg Neutrophils # Man Lymphocytes # (Manual) Monocytes # (Manual) PT INR APTT Fibrinogen Heparin Anti-Xa Level POC ABG pH POC ABG pCO2 POC ABG pO2 POC Potassium POC Chloride Sodium Potassium Chloride Carbon Dioxide POC BUN BUN Creatinine Glucose POC Glucose 163 H 149 H 150 H Calcium Magnesium AST Alkaline Phosphatase Lactate Dehydrogenase Total Creatine Kinase Total Protein Albumin Urine WBC (Auto) Crossmatch 07/08/16 07/08/16 07/08/16 12:50 16:46 21:45 WBC RBC Hgb POC Hgb Hct POC Hct MCH MCHC RDW Plt Count Lymph % (Auto) [place] % (Auto) Lymph # [place] # Baso # Seg Neutrophils % Seg Neuts % (Manual) Lymphocytes % (Manual) Monocytes % (Manual) Nucleated RBC % Seg Neutrophils # Seg Neutrophils # Man Lymphocytes # (Manual) Monocytes # (Manual) PT INR APTT Fibrinogen Heparin Anti-Xa Level POC ABG pH POC ABG pCO2 POC ABG pO2 POC Potassium POC Chloride Sodium Potassium Chloride Carbon Dioxide 21 L POC BUN BUN Creatinine Glucose 126 H POC Glucose 143 H 134 H Calcium 7.5 L Magnesium AST Alkaline Phosphatase Lactate Dehydrogenase Total Creatine Kinase Total Protein Albumin Urine WBC (Auto) Crossmatch 07/09/16 07/09/16 07/09/16 07:31 07:31 08:07 WBC RBC Hgb POC Hgb Hct POC Hct MCH MCHC RDW Plt Count Lymph % (Auto) [place] % (Auto) Lymph # [place] # Baso # Seg Neutrophils % Seg Neuts % (Manual) Lymphocytes % (Manual) Monocytes % (Manual) Nucleated RBC % Seg Neutrophils # Seg Neutrophils # Man Lymphocytes # (Manual) Monocytes # (Manual) PT INR APTT Fibrinogen Heparin Anti-Xa Level POC ABG pH POC ABG pCO2 POC ABG pO2 POC Potassium POC Chloride Sodium Potassium Chloride Carbon Dioxide POC BUN BUN Creatinine Glucose 117 H POC Glucose 132 H Calcium 7.5 L Magnesium AST Alkaline Phosphatase 136 H Lactate Dehydrogenase 285 H Total Creatine Kinase 297 H Total Protein 5.4 L Albumin 1.5 L Urine WBC (Auto) Crossmatch 07/09/16 07/09/16 07/09/16 09:55 11:10 16:26 WBC 13.4 H RBC 1.95 L Hgb 5.8 L* D POC Hgb Hct 17.7 L* D POC Hct MCH MCHC RDW 15.5 H Plt Count Lymph % (Auto) 9.4 L [place] % (Auto) 8.3 H Lymph # [place] # 1.1 H Baso # Seg Neutrophils % 81.2 H Seg Neuts % (Manual) Lymphocytes % (Manual) Monocytes % (Manual) Nucleated RBC % Seg Neutrophils # 10.9 H Seg Neutrophils # Man Lymphocytes # (Manual) Monocytes # (Manual) PT INR APTT Fibrinogen Heparin Anti-Xa Level POC ABG pH POC ABG pCO2 POC ABG pO2 POC Potassium POC Chloride Sodium Potassium Chloride Carbon Dioxide POC BUN BUN Creatinine Glucose POC Glucose 240 H 113 H Calcium Magnesium AST Alkaline Phosphatase Lactate Dehydrogenase Total Creatine Kinase Total Protein Albumin Urine WBC (Auto) Crossmatch 07/09/16 07/10/16 07/10/16 21:45 04:10 09:03 WBC 15.1 H RBC 3.00 L Hgb 8.8 L D POC Hgb Hct 26.2 L D POC Hct MCH MCHC RDW 15.4 H Plt Count Lymph % (Auto) 8.4 L [place] % (Auto) 8.4 H Lymph # [place] # 1.3 H Baso # Seg Neutrophils % 82.5 H Seg Neuts % (Manual) Lymphocytes % (Manual) Monocytes % (Manual) Nucleated RBC % Seg Neutrophils # 12.5 H Seg Neutrophils # Man Lymphocytes # (Manual) Monocytes # (Manual) PT INR APTT Fibrinogen Heparin Anti-Xa Level POC ABG pH POC ABG pCO2 POC ABG pO2 POC Potassium POC Chloride Sodium Potassium Chloride Carbon Dioxide POC BUN BUN Creatinine Glucose POC Glucose 113 H 122 H Calcium Magnesium AST Alkaline Phosphatase Lactate Dehydrogenase Total Creatine Kinase Total Protein Albumin Urine WBC (Auto) Crossmatch 07/10/16 07/10/16 07/10/16 11:38 15:36 21:45 WBC RBC Hgb POC Hgb Hct POC Hct MCH MCHC RDW Plt Count Lymph % (Auto) [place] % (Auto) Lymph # [place] # Baso # Seg Neutrophils % Seg Neuts % (Manual) Lymphocytes % (Manual) Monocytes % (Manual) Nucleated RBC % Seg Neutrophils # Seg Neutrophils # Man Lymphocytes # (Manual) Monocytes # (Manual) PT INR APTT Fibrinogen Heparin Anti-Xa Level POC ABG pH POC ABG pCO2 POC ABG pO2 POC Potassium POC Chloride Sodium Potassium Chloride Carbon Dioxide POC BUN BUN Creatinine Glucose POC Glucose 146 H 131 H 141 H Calcium Magnesium AST Alkaline Phosphatase Lactate Dehydrogenase Total Creatine Kinase Total Protein Albumin Urine WBC (Auto) Crossmatch 07/11/16 07/11/16 05:10 07:40 WBC RBC Hgb POC Hgb Hct POC Hct MCH MCHC RDW Plt Count Lymph % (Auto) [place] % (Auto) Lymph # [place] # Baso # Seg Neutrophils % Seg Neuts % (Manual) Lymphocytes % (Manual) Monocytes % (Manual) Nucleated RBC % Seg Neutrophils # Seg Neutrophils # Man Lymphocytes # (Manual) Monocytes # (Manual) PT INR APTT Fibrinogen Heparin Anti-Xa Level POC ABG pH POC ABG pCO2 POC ABG pO2 POC Potassium POC Chloride Sodium Potassium Chloride Carbon Dioxide POC BUN BUN Creatinine Glucose 107 H POC Glucose 114 H Calcium 7.7 L Magnesium AST 81 H Alkaline Phosphatase 153 H Lactate Dehydrogenase Total Creatine Kinase Total Protein 6.0 L Albumin 1.8 L Urine WBC (Auto) Crossmatch CT scan - chest: image reviewed
--- NOTE | 2016-07-11 09:46 | Progress Note ---
Assessment and Plan Current antibiotics: Zosyn 4.5 grams IV q8h 07/08 --> Previous antibiotics: Zosyn 2.25 g IV q8h 06/21-06/24 Cefazolin perioperatively ASSESSMENT: Cadne Ge is a 55-year-old female with severe peripheral vascular disease, type 2 DM with peripheral neuropathy and hypertension who was admitted to [facility] as an outpatient with left lower extremity pain at rest for her cutaneous intervention which was unsuccessful and subsequently underwent left femoral endarterectomy and left iliac stenting and left femoral-popliteal bypass on 06/16 , urgent thrombectomies on 06/20 and right femoral endarterectomy with patch angioplasty on 07/03. She also had 2 cardiac arrests on 06/20 requiring resuscitation and intubation. She developed evidence of a retroperitoneal hematoma and ureteral obstruction and underwent bilateral ureteral stenting on 06/27. She has had a low-grade fever and leukocytosis. Problem list: 1. Leukocytosis -Likely reactive -Patient has multiple reasons for leukocytosis including retroperitoneal hematoma , GI bleeding and multiple surgeries -Status post left groin infection and infected Dacron patch 2. Low-grade fever -Resolved 3. Left groin wound infection -Status post debridement of the left groin wound, removal of an infected Dacron patch from the SFA, removal of this thrombosed infected vein bypass graft proximal portionand creation of the sartorius muscle flap over common femoral artery bovine pericardial patch 07/08 -Polymicrobial with Escherichia coli, Enterococcus faecalis and Streptococcal species growing so far 4. Severe peripheral vascular disease -Unsuccessful attempt at percutaneous left lower extremity revascularization 06/13 -Left femoral endarterectomy, left iliac stenting and left femoral-popliteal bypass on 06/16 -Left lower extremity thrombectomies on 06/20 -Right femoral endarterectomy with patch angioplasty on 07/03 -Left lower extremity felt to be nonsalvageable 5. Retroperitoneal hematoma -As seen on CT scan 06/27 6. Bilateral hydroureteronephrosis -Status post bilateral ureteral stenting 06/27 7. Status post cardiopulmonary arrests X 2 -06/20 -Mechanical ventilatory support until 07/05 8. REJI -Creatinine peaked at 4.8 on 06/27 -Likely secondary to ATN -Resolved 9. Anemia -Likely multifactorial secondary to bleeding and chronic disease 10. Type 2 DM PLAN: 1. Continue Zosyn pending further culture data 2. Continue local wound care 3. Vascular plans noted. They will discuss AKA with the patient when her family is available next week 4. Continued supportive measures and close observation Soham Iverson MD [facility] Office: [phone] Subjective Date of service: 07/11/16 Principal diagnosis: Acute Hypoxemic Respiratory Failure; s/p cardiopulmonary arrest Interval history: No specific complaints this morning. Feels somewhat better. No real pain. ROS: No subjective fever or chills. No nausea, vomiting or diarrhea. No shortness of breath, cough or pleuritic chest pain Objective - Exam Narrative Exam: GENERAL: Well-developed, well-nourished appearing female who appears somewhat older than her stated age and appears chronically ill but is in no acute distress. HEAD: Normocephalic. No lesions seen. EYES: Pupils are equal reactive to light and accommodation. There is no scleral icterus. Optic fundi are not examined. EARS: External ears are normal. THROAT: Oropharynx is normal with no evidence of oral candidiasis or pharyngitis. Patient is edentulous. NECK: Supple. No enlargement of the thyroid gland. No significant cervical lymphadenopathy. No jugular venous distention at 30. LUNGS: Clear with no adventitious sounds. HEART: Regular rate with occasional extra beat heard. S1 and S2 are normal. There are no murmurs, gallops, clicks or rubs heard. ABDOMEN: Soft and nontender. Liver and spleen are not palpably enlarged or tender. No palpable masses. Bowel sounds are normoactive. EXTREMITIES: No peripheral lymphadenopathy or clubbing. There is moderate bilateral lower extremity edema with diffuse tenderness to palpation but no increased erythema. Left lower extremity is cool to touch. SKIN: Multiple surgical wounds show no evidence of wound infection. The right femoral incision with samaria in place and no drainage or signs of infection. Left groin wound VAC in place with no signs of infection outside its margins. : Normal external female. No Gillespie catheter. NEUROLOGIC: Bilateral lower extremity weakness. No other focal findings. - Constitutional Vitals: Vital Signs Temp Pulse Resp BP Pulse Ox 98.6 F 109 H 13 142/60 97 07/11/16 07:49 07/11/16 09:11 07/11/16 08:00 07/11/16 09:11 07/11/16 08:00 Temperature -Last 24 Hours Temperature 98.6 F Temperature 98.5 F Temperature 99.4 F Temperature 99.5 F Temperature 98.4 F Temperature 98.9 F - Labs CBC & Chem 7: 07/10/16 04:10 07/11/16 05:10 Labs: Abnormal lab results Microbiology 07/07/16 Unknown Thigh - Left Anaerobic Culture - Final 07/09/16 04:26 Peripheral/Venous Blood Culture - Preliminary NO GROWTH AFTER 48 HOURS 07/09/16 04:26 Peripheral/Venous Blood Culture - Preliminary NO GROWTH AFTER 48 HOURS 07/07/16 Unknown Thigh - Left Surgical Culture - Preliminary Escherichia Coli Enterococcus Faecalis Streptococcus Species 07/07/16 Unknown Thigh - Left Surgical Biopsy Culture - Preliminary Escherichia Coli Enterococcus Faecalis Streptococcus Species 07/07/16 Unknown Thigh - Left Surgical Biopsy Culture - Preliminary Escherichia Coli Enterococcus Faecalis Streptococcus Species 07/07/16 Unknown Thigh - Left Surgical Biopsy Culture - Preliminary Escherichia Coli Enterococcus Faecalis Streptococcus Species 07/07/16 Unknown Thigh - Left Surgical Biopsy Culture - Preliminary Escherichia Coli 07/03/16 18:55 Tracheal Aspirate Sputum Culture - oropharyngeal contamination 06/21/16 17:45 Peripheral/Venous Blood Culture - Final NO GROWTH AFTER 5 DAYS 06/21/16 17:30 Peripheral/Venous Blood Culture - Final NO GROWTH AFTER 5 DAYS 06/21/16 21:00 Urine,Catheterized - Indwelling Catheter Urine Culture - Final NO GROWTH AFTER 48 HOURS 06/20/16 22:30 Stool Stool Culture - no enteric pathogens 06/20/16 22:30 Stool C. difficile DNA Amplification - negative 06/20/16 22:30 Stool Stool Occult Blood (KIERRA) - positive 06/17/16 11:06 Tracheal Aspirate Sputum Culture - Final Escherichia Coli Imagin/28: CTA abdomen: Left lower angelica-pelvic hematoma and thigh hematoma. Urinary bladder displaced into the right hemipelvis with coiled ureteral stents in mild bilateral hydronephrosis. Small abscess at the right groin. Much of the right SFA occluded and only reconstitutes distally with a 2 vessel runoff below the right knee. 07/06: CXR: Persistent left basilar opacity without change 06/27: CT abdomen/pelvis: Left hemipelvic and small left groin hematomas. Bilateral hydroureteronephrosis.
--- NOTE | 2016-07-11 12:39 | Progress Note ---
Assessment and Plan The patient's left lower extremity is without motor and is insensate. She will require a left above-knee amputation. Will plan to proceed next week. Subjective Date of service: 07/11/16 Principal diagnosis: Acute Hypoxemic Respiratory Failure; s/p cardiopulmonary arrest Interval history: The patient has no complaint at this time. She no longer complains of left leg pain. Objective - Constitutional Vitals: Vital Signs - 12hr 07/11/16 07/11/16 07/11/16 01:00 02:00 03:00 Temperature Pulse Rate 105 H 105 H 109 H Pulse Rate [ From Monitor] Respiratory 16 13 11 L Rate Blood Pressure 129/59 130/64 136/74 O2 Sat by Pulse 100 100 98 Oximetry 07/11/16 07/11/16 07/11/16 03:46 04:00 05:00 Temperature 98.5 F Pulse Rate 107 H 107 H Pulse Rate [ 107 H From Monitor] Respiratory 14 15 12 Rate Blood Pressure 127/79 125/63 O2 Sat by Pulse 98 98 Oximetry 07/11/16 07/11/16 07/11/16 06:00 06:50 06:53 Temperature Pulse Rate 111 H Pulse Rate [ From Monitor] Respiratory 21 14 14 Rate Blood Pressure 125/66 O2 Sat by Pulse 99 Oximetry 07/11/16 07/11/16 07/11/16 07:00 07:49 08:00 Temperature 98.6 F Pulse Rate 106 H 105 H Pulse Rate [ From Monitor] Respiratory 14 13 Rate Blood Pressure 134/53 O2 Sat by Pulse 97 97 Oximetry 07/11/16 09:11 Temperature Pulse Rate 109 H Pulse Rate [ From Monitor] Respiratory Rate Blood Pressure 142/60 O2 Sat by Pulse Oximetry General appearance: Present: no acute distress - Respiratory Respiratory effort: normal - Cardiovascular Heart rate: 100 Rhythm: regular Extremity abnormal: cold (left leg is cold and insensate from the knee down. The thigh is well perfused. Dressings are intact. The right lower extremity is warm however several of the toes appear cyanotic.) - Gastrointestinal General gastrointestinal: Present: soft, non-tender - Labs CBC & Chem 7: 07/10/16 04:10 07/11/16 05:10 Labs: Abnormal lab results 07/10/16 07/10/16 07/11/16 Range/Units 15:36 21:45 05:10 Glucose 107 H (65-100) mg/dL POC Glucose 131 H 141 H (70-105) Calcium 7.7 L (8.4-10.2) mg/dL AST 81 H (5-40) units/L Alkaline Phosphatase 153 H (35-129) units/L Total Protein 6.0 L (6.3-8.2) g/dL Albumin 1.8 L (3.9-5) g/dL 07/11/16 07/11/16 Range/Units 07:40 11:45 Glucose (65-100) mg/dL POC Glucose 114 H 116 H (70-105) Calcium (8.4-10.2) mg/dL AST (5-40) units/L Alkaline Phosphatase (35-129) units/L Total Protein (6.3-8.2) g/dL Albumin (3.9-5) g/dL
[2016-07-11] MEDS: D5W/0.45% NACL/KCL 20 MEQ 1,000 ML IV SCH ×2 (12:55→22:07)
[2016-07-12] MEDS: ZOSYN/NS 4.5GM/100ML 100 ML IV SCH ×3 (04:18→20:45)
[2016-07-12] MEDS: MORPHINE PCA 30MG/30ML IV SCH ×2 (07:40→18:34)
[2016-07-12] MEDS: THERMAZENE 50 GRAM TP SCH (10:23)
--- NOTE | 2016-07-12 12:23 | Progress Note ---
Assessment and Plan - Patient Problems (1) Peripheral vascular disease of extremity Current Visit: Yes Status: Acute Plan to address problem: - tentatively for AKA left leg next week - vascular surgery managing - continue analgesia (2) Acute respiratory failure Current Visit: Yes Status: Acute Plan to address problem: - on room air but need to r/o hemothorax which will necessitate further intervention - thoracentesis on hold re: plavix but also clinical stability respiratory-centeno (3) Anemia Current Visit: Yes Status: Acute Plan to address problem: - follow H&H - evaluating source - LDH unremarkable - Likely ABLA component (4) Altered mental status Current Visit: Yes Status: Acute Plan to address problem: - improved - dementia element likely +/- depression element Subjective Date of service: 07/12/16 Principal diagnosis: Acute Hypoxemic Respiratory Failure; s/p cardiopulmonary arrest Interval history: Seen and examined at bedside; 24 hour events reviewed; nursing and respiratory care staff consulted; no adverse overnight events reported to me; resting peacefully and in good spirits; discussed her thoughts on tentative amputation with her and she appears resigned to it but states that she is "up to the task" ; no new issues otherwise Objective Vital Signs - 12hr 07/12/16 07/12/16 07/12/16 01:00 01:23 02:00 Temperature Pulse Rate 100 H 98 H 101 H Pulse Rate [ Apical] Pulse Rate [ From Monitor] Pulse Rate [ Left Radial] Pulse Rate [ Right Dorsalis Pedis] Pulse Rate [ Right Radial] Respiratory 11 L 12 11 L Rate Blood Pressure 119/60 119/60 124/63 O2 Sat by Pulse 100 97 99 Oximetry 07/12/16 07/12/16 07/12/16 03:00 03:43 03:47 Temperature Pulse Rate 101 H 98 H 99 H Pulse Rate [ Apical] Pulse Rate [ From Monitor] Pulse Rate [ Left Radial] Pulse Rate [ Right Dorsalis Pedis] Pulse Rate [ Right Radial] Respiratory 15 12 14 Rate Blood Pressure 125/61 129/65 129/65 O2 Sat by Pulse 91 97 97 Oximetry 07/12/16 07/12/16 07/12/16 03:48 03:51 03:52 Temperature 98 F Pulse Rate 120 H Pulse Rate [ 87 Apical] Pulse Rate [ 87 From Monitor] Pulse Rate [ 87 Left Radial] Pulse Rate [ 87 Right Dorsalis Pedis] Pulse Rate [ 87 Right Radial] Respiratory Rate Blood Pressure O2 Sat by Pulse 100 Oximetry 07/12/16 07/12/16 07/12/16 03:55 04:00 04:17 Temperature Pulse Rate 101 H 99 H 102 H Pulse Rate [ Apical] Pulse Rate [ From Monitor] Pulse Rate [ Left Radial] Pulse Rate [ Right Dorsalis Pedis] Pulse Rate [ Right Radial] Respiratory 12 12 14 Rate Blood Pressure 129/65 124/64 124/64 O2 Sat by Pulse 99 97 99 Oximetry 07/12/16 07/12/16 07/12/16 04:19 04:41 04:49 Temperature Pulse Rate 98 H 100 H 97 H Pulse Rate [ Apical] Pulse Rate [ From Monitor] Pulse Rate [ Left Radial] Pulse Rate [ Right Dorsalis Pedis] Pulse Rate [ Right Radial] Respiratory 13 12 15 Rate Blood Pressure 124/64 120/61 120/61 O2 Sat by Pulse 97 98 100 Oximetry 07/12/16 07/12/16 07/12/16 04:51 05:00 05:01 Temperature Pulse Rate 97 H 99 H 98 H Pulse Rate [ Apical] Pulse Rate [ From Monitor] Pulse Rate [ Left Radial] Pulse Rate [ Right Dorsalis Pedis] Pulse Rate [ Right Radial] Respiratory 13 13 13 Rate Blood Pressure 120/61 129/62 129/62 O2 Sat by Pulse 100 100 100 Oximetry 07/12/16 07/12/16 07/12/16 06:00 06:15 07:00 Temperature Pulse Rate 99 H 98 H 105 H Pulse Rate [ Apical] Pulse Rate [ From Monitor] Pulse Rate [ Left Radial] Pulse Rate [ Right Dorsalis Pedis] Pulse Rate [ Right Radial] Respiratory 15 13 17 Rate Blood Pressure 133/62 133/62 131/69 O2 Sat by Pulse 98 99 98 Oximetry 07/12/16 07/12/16 07/12/16 07:57 08:00 08:39 Temperature Pulse Rate 103 H 100 H 100 H Pulse Rate [ Apical] Pulse Rate [ 101 H From Monitor] Pulse Rate [ Left Radial] Pulse Rate [ Right Dorsalis Pedis] Pulse Rate [ Right Radial] Respiratory 11 L 11 L 9 L Rate Blood Pressure 117/51 133/67 125/58 O2 Sat by Pulse 97 96 100 Oximetry 07/12/16 07/12/16 07/12/16 08:51 09:00 09:13 Temperature 98.7 F Pulse Rate 100 H 100 H Pulse Rate [ Apical] Pulse Rate [ From Monitor] Pulse Rate [ Left Radial] Pulse Rate [ Right Dorsalis Pedis] Pulse Rate [ Right Radial] Respiratory 11 L 12 Rate Blood Pressure 131/58 131/58 O2 Sat by Pulse 99 96 Oximetry 07/12/16 07/12/16 07/12/16 10:00 10:23 11:00 Temperature Pulse Rate 107 H 105 H 105 H Pulse Rate [ Apical] Pulse Rate [ From Monitor] Pulse Rate [ Left Radial] Pulse Rate [ Right Dorsalis Pedis] Pulse Rate [ Right Radial] Respiratory 14 11 L 14 Rate Blood Pressure 120/68 120/68 119/66 O2 Sat by Pulse 98 100 99 Oximetry 07/12/16 11:04 Temperature Pulse Rate Pulse Rate [ Apical] Pulse Rate [ From Monitor] Pulse Rate [ Left Radial] Pulse Rate [ Right Dorsalis Pedis] Pulse Rate [ Right Radial] Respiratory 14 Rate Blood Pressure O2 Sat by Pulse Oximetry Constitutional: no acute distress, alert Eyes: non-icteric ENT: oropharynx moist Neck: supple, no lymphadenopathy Effort: normal Ascultation: Left: diminished breath sounds (base), Bilateral: clear Cardiovascular: regular rate and rhythm Gastrointestinal: normoactive bowel sounds, soft, non-tender, non-distended Integumentary: other (weak LLExt) Extremities: edema, other (LLExt cool; gangrene setting in on digits) Neurologic: normal mental status, non-focal exam, pupils equal and round Psychiatric: mood appropriate, affect normal CBC and BMP: 07/13/16 07:05 07/11/16 05:10 ABG, PT/INR, D-dimer: ABG POC ABG pH 7.436 (7.35-7.45) 07/04/16 16:49 POC ABG pCO2 31.1 (35-45) L 07/04/16 16:49 POC ABG pO2 110 (80-105) H 07/04/16 16:49 POC ABG HCO3 20.9 07/04/16 16:49 POC ABG Total CO2 22 07/04/16 16:49 POC ABG O2 Sat 99 07/04/16 16:49 PT/INR, D-dimer PT 19.9 Sec. (12.2-14.9) H 06/26/16 22:57 INR 1.69 (0.87-1.13) H 06/26/16 22:57 Abnormal lab findings: Abnormal Labs 06/13/16 06/13/16 06/13/16 09:45 09:45 09:45 WBC RBC Hgb POC Hgb Hct POC Hct MCH 25 L MCHC RDW 15.8 H Plt Count Lymph % (Auto) [place] % (Auto) 8.1 H Lymph # [place] # Baso # Seg Neutrophils % Seg Neuts % (Manual) Lymphocytes % (Manual) Monocytes % (Manual) Nucleated RBC % Seg Neutrophils # Seg Neutrophils # Man Lymphocytes # (Manual) Monocytes # (Manual) PT INR APTT Fibrinogen 522 H Heparin Anti-Xa Level POC ABG pH POC ABG pCO2 POC ABG pO2 POC Potassium POC Chloride Sodium Potassium Chloride Carbon Dioxide POC BUN BUN Creatinine Glucose POC Glucose Calcium 10.3 H Magnesium AST Alkaline Phosphatase Lactate Dehydrogenase Total Creatine Kinase Total Protein Albumin Urine WBC (Auto) Crossmatch 06/13/16 06/13/16 06/13/16 09:45 20:14 20:15 WBC RBC Hgb POC Hgb Hct POC Hct MCH MCHC RDW Plt Count Lymph % (Auto) [place] % (Auto) Lymph # [place] # Baso # Seg Neutrophils % Seg Neuts % (Manual) Lymphocytes % (Manual) Monocytes % (Manual) Nucleated RBC % Seg Neutrophils # Seg Neutrophils # Man Lymphocytes # (Manual) Monocytes # (Manual) PT INR APTT 103.8 H* Fibrinogen Heparin Anti-Xa Level 0.72 H POC ABG pH POC ABG pCO2 POC ABG pO2 POC Potassium POC Chloride Sodium Potassium Chloride Carbon Dioxide POC BUN BUN Creatinine Glucose POC Glucose Calcium Magnesium AST Alkaline Phosphatase Lactate Dehydrogenase Total Creatine Kinase Total Protein Albumin Urine WBC (Auto) Crossmatch See Detail 06/14/16 06/14/16 06/14/16 07:44 10:18 19:09 WBC RBC Hgb POC Hgb Hct POC Hct MCH 26 L MCHC RDW 15.8 H Plt Count Lymph % (Auto) [place] % (Auto) 9.1 H Lymph # [place] # Baso # Seg Neutrophils % Seg Neuts % (Manual) Lymphocytes % (Manual) Monocytes % (Manual) Nucleated RBC % Seg Neutrophils # Seg Neutrophils # Man Lymphocytes # (Manual) Monocytes # (Manual) PT INR APTT Fibrinogen Heparin Anti-Xa Level 0.76 H POC ABG pH POC ABG pCO2 POC ABG pO2 POC Potassium POC Chloride Sodium Potassium Chloride Carbon Dioxide POC BUN BUN Creatinine Glucose POC Glucose 106 H Calcium Magnesium AST Alkaline Phosphatase Lactate Dehydrogenase Total Creatine Kinase Total Protein Albumin Urine WBC (Auto) Crossmatch 06/15/16 06/15/16 06/15/16 04:43 04:43 22:49 WBC RBC Hgb 9.2 L POC Hgb Hct 28.4 L POC Hct MCH MCHC RDW Plt Count Lymph % (Auto) [place] % (Auto) Lymph # [place] # Baso # Seg Neutrophils % Seg Neuts % (Manual) Lymphocytes % (Manual) Monocytes % (Manual) Nucleated RBC % Seg Neutrophils # Seg Neutrophils # Man Lymphocytes # (Manual) Monocytes # (Manual) PT INR APTT Fibrinogen Heparin Anti-Xa Level 0.85 H POC ABG pH POC ABG pCO2 POC ABG pO2 POC Potassium POC Chloride Sodium Potassium Chloride Carbon Dioxide POC BUN BUN Creatinine Glucose POC Glucose 134 H Calcium Magnesium AST Alkaline Phosphatase Lactate Dehydrogenase Total Creatine Kinase Total Protein Albumin Urine WBC (Auto) Crossmatch 06/16/16 06/16/16 06/16/16 08:55 08:55 14:21 WBC RBC Hgb POC Hgb 5.8 L Hct POC Hct 17 L MCH MCHC RDW Plt Count Lymph % (Auto) [place] % (Auto) Lymph # [place] # Baso # Seg Neutrophils % Seg Neuts % (Manual) Lymphocytes % (Manual) Monocytes % (Manual) Nucleated RBC % Seg Neutrophils # Seg Neutrophils # Man Lymphocytes # (Manual) Monocytes # (Manual) PT INR APTT 20.0 L Fibrinogen Heparin Anti-Xa Level POC ABG pH POC ABG pCO2 POC ABG pO2 POC Potassium 2.9 L POC Chloride Sodium Potassium Chloride Carbon Dioxide POC BUN 7 L BUN Creatinine Glucose POC Glucose 249 H Calcium Magnesium AST Alkaline Phosphatase Lactate Dehydrogenase Total Creatine Kinase Total Protein Albumin Urine WBC (Auto) Crossmatch See Detail 06/16/16 06/16/16 06/16/16 16:55 17:41 17:48 WBC RBC Hgb POC Hgb 8.8 L Hct POC Hct 26 L < 15 L MCH MCHC RDW Plt Count Lymph % (Auto) [place] % (Auto) Lymph # [place] # Baso # Seg Neutrophils % Seg Neuts % (Manual) Lymphocytes % (Manual) Monocytes % (Manual) Nucleated RBC % Seg Neutrophils # Seg Neutrophils # Man Lymphocytes # (Manual) Monocytes # (Manual) PT INR APTT Fibrinogen Heparin Anti-Xa Level POC ABG pH 7.031 L POC ABG pCO2 POC ABG pO2 475 H POC Potassium 3.2 L POC Chloride 112 H 114 H Sodium Potassium Chloride Carbon Dioxide POC BUN 7 L 7 L BUN Creatinine Glucose POC Glucose 203 H 291 H Calcium Magnesium AST Alkaline Phosphatase Lactate Dehydrogenase Total Creatine Kinase Total Protein Albumin Urine WBC (Auto) Crossmatch 06/16/16 06/16/16 06/16/16 18:07 19:09 20:10 WBC 15.8 H RBC Hgb POC Hgb 6.5 L Hct POC Hct 19 L MCH MCHC RDW Plt Count 38 L Lymph % (Auto) 5.9 L [place] % (Auto) 9.3 H Lymph # 0.9 L [place] # 1.5 H Baso # Seg Neutrophils % 84.6 H Seg Neuts % (Manual) Lymphocytes % (Manual) Monocytes % (Manual) Nucleated RBC % Seg Neutrophils # 13.3 H Seg Neutrophils # Man Lymphocytes # (Manual) Monocytes # (Manual) PT INR APTT Fibrinogen Heparin Anti-Xa Level POC ABG pH POC ABG pCO2 POC ABG pO2 POC Potassium POC Chloride 113 H Sodium Potassium Chloride Carbon Dioxide POC BUN 7 L BUN Creatinine Glucose POC Glucose 263 H 231 H Calcium Magnesium AST Alkaline Phosphatase Lactate Dehydrogenase Total Creatine Kinase Total Protein Albumin Urine WBC (Auto) Crossmatch 06/16/16 06/16/16 06/16/16 20:10 20:18 21:10 WBC RBC Hgb POC Hgb Hct POC Hct MCH MCHC RDW Plt Count Lymph % (Auto) [place] % (Auto) Lymph # [place] # Baso # Seg Neutrophils % Seg Neuts % (Manual) Lymphocytes % (Manual) Monocytes % (Manual) Nucleated RBC % Seg Neutrophils # Seg Neutrophils # Man Lymphocytes # (Manual) Monocytes # (Manual) PT INR APTT Fibrinogen Heparin Anti-Xa Level POC ABG pH 7.236 L 7.280 L POC ABG pCO2 POC ABG pO2 139 H 145 H POC Potassium POC Chloride Sodium Potassium 3.4 L Chloride 114.5 H Carbon Dioxide 17 L D POC BUN BUN Creatinine Glucose 188 H POC Glucose Calcium 6.1 L D Magnesium AST Alkaline Phosphatase Lactate Dehydrogenase Total Creatine Kinase Total Protein Albumin Urine WBC (Auto) Crossmatch 06/16/16 06/17/16 06/17/16 22:53 04:48 05:35 WBC RBC Hgb POC Hgb Hct POC Hct MCH MCHC RDW Plt Count Lymph % (Auto) [place] % (Auto) Lymph # [place] # Baso # Seg Neutrophils % Seg Neuts % (Manual) Lymphocytes % (Manual) Monocytes % (Manual) Nucleated RBC % Seg Neutrophils # Seg Neutrophils # Man Lymphocytes # (Manual) Monocytes # (Manual) PT INR APTT Fibrinogen Heparin Anti-Xa Level POC ABG pH POC ABG pCO2 33.9 L 22.2 L POC ABG pO2 152 H 154 H POC Potassium POC Chloride Sodium 150 H Potassium 3.4 L Chloride 114.2 H Carbon Dioxide 16 L POC BUN BUN Creatinine Glucose 221 H POC Glucose Calcium 7.6 L D Magnesium AST Alkaline Phosphatase Lactate Dehydrogenase Total Creatine Kinase Total Protein Albumin Urine WBC (Auto) Crossmatch 06/17/16 06/18/16 06/18/16 09:22 07:26 08:25 WBC 20.3 H RBC 3.41 L Hgb 9.9 L POC Hgb Hct 29.7 L POC Hct MCH MCHC RDW Plt Count Lymph % (Auto) [place] % (Auto) Lymph # [place] # Baso # Seg Neutrophils % Seg Neuts % (Manual) 81.0 H Lymphocytes % (Manual) 6.0 L Monocytes % (Manual) 12.0 H Nucleated RBC % Seg Neutrophils # Seg Neutrophils # Man 16.4 H Lymphocytes # (Manual) Monocytes # (Manual) 2.4 H PT INR APTT Fibrinogen Heparin Anti-Xa Level POC ABG pH POC ABG pCO2 POC ABG pO2 POC Potassium POC Chloride Sodium Potassium 3.1 L Chloride Carbon Dioxide POC BUN BUN Creatinine Glucose 136 H POC Glucose 141 H Calcium 7.5 L Magnesium AST Alkaline Phosphatase Lactate Dehydrogenase Total Creatine Kinase Total Protein Albumin Urine WBC (Auto) Crossmatch 06/18/16 06/18/16 06/18/16 08:25 11:09 19:40 WBC RBC Hgb 6.5 L D POC Hgb Hct 19.3 L* D POC Hct MCH MCHC RDW Plt Count 131 L Lymph % (Auto) [place] % (Auto) Lymph # [place] # Baso # Seg Neutrophils % Seg Neuts % (Manual) Lymphocytes % (Manual) Monocytes % (Manual) Nucleated RBC % Seg Neutrophils # Seg Neutrophils # Man Lymphocytes # (Manual) Monocytes # (Manual) PT INR APTT Fibrinogen Heparin Anti-Xa Level POC ABG pH 7.490 H POC ABG pCO2 POC ABG pO2 131 H POC Potassium POC Chloride Sodium Potassium Chloride Carbon Dioxide POC BUN BUN Creatinine Glucose POC Glucose 125 H Calcium Magnesium AST Alkaline Phosphatase Lactate Dehydrogenase Total Creatine Kinase Total Protein Albumin Urine WBC (Auto) Crossmatch 06/18/16 06/19/16 06/19/16 21:10 07:07 07:28 WBC 13.6 H RBC 2.17 L Hgb 6.5 L POC Hgb Hct 18.8 L* POC Hct MCH MCHC 35 H RDW Plt Count 131 L Lymph % (Auto) 10.1 L [place] % (Auto) 9.3 H Lymph # [place] # 1.3 H Baso # Seg Neutrophils % 79.7 H Seg Neuts % (Manual) Lymphocytes % (Manual) Monocytes % (Manual) Nucleated RBC % Seg Neutrophils # 10.8 H Seg Neutrophils # Man Lymphocytes # (Manual) Monocytes # (Manual) PT INR APTT Fibrinogen Heparin Anti-Xa Level 0.75 H POC ABG pH POC ABG pCO2 POC ABG pO2 POC Potassium POC Chloride Sodium Potassium 3.5 L Chloride Carbon Dioxide POC BUN BUN Creatinine Glucose 104 H POC Glucose Calcium 7.6 L Magnesium 1.4 L AST Alkaline Phosphatase Lactate Dehydrogenase Total Creatine Kinase Total Protein Albumin Urine WBC (Auto) Crossmatch 06/20/16 06/20/16 06/20/16 04:15 18:15 18:15 WBC 16.6 H RBC 1.19 L Hgb 9.2 L 3.5 L* D POC Hgb Hct 27.5 L D 11.0 L* D POC Hct MCH MCHC RDW Plt Count 138 L Lymph % (Auto) [place] % (Auto) Lymph # [place] # Baso # Seg Neutrophils % Seg Neuts % (Manual) Lymphocytes % (Manual) Monocytes % (Manual) Nucleated RBC % Seg Neutrophils # Seg Neutrophils # Man Lymphocytes # (Manual) Monocytes # (Manual) PT INR APTT Fibrinogen Heparin Anti-Xa Level POC ABG pH POC ABG pCO2 POC ABG pO2 POC Potassium POC Chloride Sodium 146 H Potassium Chloride Carbon Dioxide 14 L D POC BUN BUN Creatinine Glucose 31 L* POC Glucose Calcium 6.7 L Magnesium AST Alkaline Phosphatase Lactate Dehydrogenase Total Creatine Kinase Total Protein Albumin Urine WBC (Auto) Crossmatch 06/20/16 06/20/16 06/20/16 18:15 19:33 19:36 WBC RBC Hgb POC Hgb Hct POC Hct MCH MCHC RDW Plt Count Lymph % (Auto) [place] % (Auto) Lymph # [place] # Baso # Seg Neutrophils % Seg Neuts % (Manual) Lymphocytes % (Manual) Monocytes % (Manual) Nucleated RBC % Seg Neutrophils # Seg Neutrophils # Man Lymphocytes # (Manual) Monocytes # (Manual) PT INR APTT Fibrinogen Heparin Anti-Xa Level POC ABG pH POC ABG pCO2 26.3 L POC ABG pO2 394 H POC Potassium POC Chloride Sodium Potassium Chloride Carbon Dioxide POC BUN BUN Creatinine Glucose POC Glucose 212 H Calcium Magnesium AST Alkaline Phosphatase Lactate Dehydrogenase Total Creatine Kinase Total Protein Albumin Urine WBC (Auto) Crossmatch See Detail 06/20/16 06/20/16 06/21/16 22:01 23:00 00:35 WBC RBC Hgb POC Hgb Hct POC Hct MCH MCHC RDW Plt Count Lymph % (Auto) [place] % (Auto) Lymph # [place] # Baso # Seg Neutrophils % Seg Neuts % (Manual) Lymphocytes % (Manual) Monocytes % (Manual) Nucleated RBC % Seg Neutrophils # Seg Neutrophils # Man Lymphocytes # (Manual) Monocytes # (Manual) PT 21.3 H INR 1.85 H APTT 48.4 H Fibrinogen Heparin Anti-Xa Level POC ABG pH POC ABG pCO2 POC ABG pO2 POC Potassium POC Chloride Sodium Potassium Chloride Carbon Dioxide POC BUN BUN Creatinine Glucose POC Glucose 149 H 147 H Calcium Magnesium AST Alkaline Phosphatase Lactate Dehydrogenase Total Creatine Kinase Total Protein Albumin Urine WBC (Auto) Crossmatch 06/21/16 06/21/16 06/21/16 04:30 04:30 06:01 WBC 21.7 H RBC 3.58 L Hgb POC Hgb Hct POC Hct MCH MCHC 35 H RDW Plt Count 116 L Lymph % (Auto) [place] % (Auto) Lymph # [place] # Baso # Seg Neutrophils % Seg Neuts % (Manual) Lymphocytes % (Manual) 8.0 L Monocytes % (Manual) Nucleated RBC % 3.0 H Seg Neutrophils # Seg Neutrophils # Man 13.7 H Lymphocytes # (Manual) Monocytes # (Manual) 1.5 H PT INR APTT Fibrinogen Heparin Anti-Xa Level POC ABG pH 7.541 H POC ABG pCO2 21.1 L POC ABG pO2 108 H POC Potassium POC Chloride Sodium Potassium 3.0 L Chloride 110.3 H Carbon Dioxide 18 L POC BUN BUN 18 H Creatinine Glucose 141 H POC Glucose Calcium 6.4 L Magnesium AST Alkaline Phosphatase Lactate Dehydrogenase Total Creatine Kinase Total Protein Albumin Urine WBC (Auto) Crossmatch 06/21/16 06/21/16 06/21/16 07:00 10:02 17:51 WBC RBC Hgb 8.3 L POC Hgb Hct 24.7 L D POC Hct MCH MCHC RDW Plt Count Lymph % (Auto) [place] % (Auto) Lymph # [place] # Baso # Seg Neutrophils % Seg Neuts % (Manual) Lymphocytes % (Manual) Monocytes % (Manual) Nucleated RBC % Seg Neutrophils # Seg Neutrophils # Man Lymphocytes # (Manual) Monocytes # (Manual) PT INR APTT Fibrinogen Heparin Anti-Xa Level POC ABG pH POC ABG pCO2 POC ABG pO2 POC Potassium POC Chloride Sodium Potassium Chloride Carbon Dioxide POC BUN BUN Creatinine Glucose POC Glucose 132 H 106 H Calcium Magnesium AST Alkaline Phosphatase Lactate Dehydrogenase Total Creatine Kinase Total Protein Albumin Urine WBC (Auto) Crossmatch 06/22/16 06/22/16 06/22/16 05:00 05:00 06:40 WBC 20.6 H RBC 3.54 L Hgb POC Hgb Hct POC Hct MCH MCHC RDW Plt Count 129 L Lymph % (Auto) [place] % (Auto) Lymph # [place] # Baso # Seg Neutrophils % Seg Neuts % (Manual) 87.0 H Lymphocytes % (Manual) 4.0 L Monocytes % (Manual) Nucleated RBC % 4.0 H Seg Neutrophils # Seg Neutrophils # Man 17.9 H Lymphocytes # (Manual) 0.8 L Monocytes # (Manual) 1.2 H PT INR APTT Fibrinogen Heparin Anti-Xa Level POC ABG pH POC ABG pCO2 21.9 L POC ABG pO2 118 H POC Potassium POC Chloride Sodium Potassium Chloride 109.9 H Carbon Dioxide 15 L POC BUN BUN 26 H Creatinine 2.2 H D Glucose POC Glucose Calcium 6.3 L Magnesium AST Alkaline Phosphatase Lactate Dehydrogenase Total Creatine Kinase Total Protein Albumin Urine WBC (Auto) Crossmatch 06/22/16 06/22/16 06/22/16 09:15 09:15 23:17 WBC RBC Hgb 9.1 L POC Hgb Hct 26.9 L POC Hct MCH MCHC RDW Plt Count 116 L Lymph % (Auto) [place] % (Auto) Lymph # [place] # Baso # Seg Neutrophils % Seg Neuts % (Manual) Lymphocytes % (Manual) Monocytes % (Manual) Nucleated RBC % Seg Neutrophils # Seg Neutrophils # Man Lymphocytes # (Manual) Monocytes # (Manual) PT 15.8 H INR 1.27 H APTT Fibrinogen Heparin Anti-Xa Level POC ABG pH POC ABG pCO2 POC ABG pO2 POC Potassium POC Chloride Sodium Potassium Chloride Carbon Dioxide POC BUN BUN Creatinine Glucose POC Glucose 134 H Calcium Magnesium AST Alkaline Phosphatase Lactate Dehydrogenase Total Creatine Kinase Total Protein Albumin Urine WBC (Auto) Crossmatch 06/23/16 06/23/16 06/23/16 05:43 05:43 09:44 WBC 13.8 H RBC 2.70 L Hgb 8.1 L POC Hgb Hct 24.2 L POC Hct MCH MCHC RDW Plt Count 93 L Lymph % (Auto) 6.2 L [place] % (Auto) Lymph # 0.9 L [place] # Baso # Seg Neutrophils % 89.2 H Seg Neuts % (Manual) Lymphocytes % (Manual) Monocytes % (Manual) Nucleated RBC % Seg Neutrophils # 12.3 H Seg Neutrophils # Man Lymphocytes # (Manual) Monocytes # (Manual) PT INR APTT Fibrinogen Heparin Anti-Xa Level POC ABG pH 7.593 H POC ABG pCO2 26.8 L POC ABG pO2 141 H POC Potassium POC Chloride Sodium 146 H Potassium Chloride Carbon Dioxide POC BUN BUN 32 H Creatinine 2.6 H Glucose 142 H POC Glucose Calcium 7.0 L Magnesium AST Alkaline Phosphatase Lactate Dehydrogenase Total Creatine Kinase Total Protein Albumin Urine WBC (Auto) Crossmatch 06/23/16 06/23/16 06/23/16 11:23 17:42 23:32 WBC RBC Hgb POC Hgb Hct POC Hct MCH MCHC RDW Plt Count Lymph % (Auto) [place] % (Auto) Lymph # [place] # Baso # Seg Neutrophils % Seg Neuts % (Manual) Lymphocytes % (Manual) Monocytes % (Manual) Nucleated RBC % Seg Neutrophils # Seg Neutrophils # Man Lymphocytes # (Manual) Monocytes # (Manual) PT INR APTT Fibrinogen Heparin Anti-Xa Level POC ABG pH POC ABG pCO2 POC ABG pO2 POC Potassium POC Chloride Sodium Potassium Chloride Carbon Dioxide POC BUN BUN Creatinine Glucose POC Glucose 138 H 133 H 111 H Calcium Magnesium AST Alkaline Phosphatase Lactate Dehydrogenase Total Creatine Kinase Total Protein Albumin Urine WBC (Auto) Crossmatch 06/24/16 06/24/16 06/24/16 06:27 08:10 08:10 WBC 16.6 H RBC 2.91 L Hgb 8.9 L POC Hgb Hct 26.4 L POC Hct MCH MCHC RDW 15.6 H Plt Count 115 L Lymph % (Auto) 4.6 L [place] % (Auto) Lymph # 0.8 L [place] # 1.0 H Baso # Seg Neutrophils % 89.2 H Seg Neuts % (Manual) Lymphocytes % (Manual) Monocytes % (Manual) Nucleated RBC % Seg Neutrophils # 14.9 H Seg Neutrophils # Man Lymphocytes # (Manual) Monocytes # (Manual) PT INR APTT Fibrinogen Heparin Anti-Xa Level POC ABG pH POC ABG pCO2 POC ABG pO2 POC Potassium POC Chloride Sodium 146 H Potassium Chloride Carbon Dioxide POC BUN BUN 37 H Creatinine 2.9 H Glucose POC Glucose 109 H Calcium 7.5 L Magnesium AST Alkaline Phosphatase Lactate Dehydrogenase Total Creatine Kinase Total Protein Albumin Urine WBC (Auto) Crossmatch 06/24/16 06/24/16 06/24/16 12:05 17:57 22:13 WBC RBC Hgb POC Hgb Hct POC Hct MCH MCHC RDW Plt Count Lymph % (Auto) [place] % (Auto) Lymph # [place] # Baso # Seg Neutrophils % Seg Neuts % (Manual) Lymphocytes % (Manual) Monocytes % (Manual) Nucleated RBC % Seg Neutrophils # Seg Neutrophils # Man Lymphocytes # (Manual) Monocytes # (Manual) PT INR APTT Fibrinogen Heparin Anti-Xa Level POC ABG pH POC ABG pCO2 POC ABG pO2 POC Potassium POC Chloride Sodium Potassium Chloride Carbon Dioxide POC BUN BUN Creatinine Glucose POC Glucose 117 H 124 H 116 H Calcium Magnesium AST Alkaline Phosphatase Lactate Dehydrogenase Total Creatine Kinase Total Protein Albumin Urine WBC (Auto) Crossmatch 06/25/16 06/25/16 06/25/16 06:42 06:49 12:14 WBC RBC Hgb POC Hgb Hct POC Hct MCH MCHC RDW Plt Count Lymph % (Auto) [place] % (Auto) Lymph # [place] # Baso # Seg Neutrophils % Seg Neuts % (Manual) Lymphocytes % (Manual) Monocytes % (Manual) Nucleated RBC % Seg Neutrophils # Seg Neutrophils # Man Lymphocytes # (Manual) Monocytes # (Manual) PT INR APTT Fibrinogen Heparin Anti-Xa Level POC ABG pH POC ABG pCO2 POC ABG pO2 POC Potassium POC Chloride Sodium Potassium Chloride Carbon Dioxide POC BUN BUN 46 H Creatinine 3.6 H Glucose 133 H POC Glucose 137 H 136 H Calcium 7.4 L Magnesium AST Alkaline Phosphatase Lactate Dehydrogenase Total Creatine Kinase Total Protein Albumin Urine WBC (Auto) Crossmatch 06/25/16 06/25/1616 16:07 21:32 05:55 WBC RBC Hgb POC Hgb Hct POC Hct MCH MCHC RDW Plt Count Lymph % (Auto) [place] % (Auto) Lymph # [place] # Baso # Seg Neutrophils % Seg Neuts % (Manual) Lymphocytes % (Manual) Monocytes % (Manual) Nucleated RBC % Seg Neutrophils # Seg Neutrophils # Man Lymphocytes # (Manual) Monocytes # (Manual) PT INR APTT Fibrinogen Heparin Anti-Xa Level POC ABG pH POC ABG pCO2 POC ABG pO2 POC Potassium POC Chloride Sodium Potassium Chloride Carbon Dioxide 20 L POC BUN BUN 55 H Creatinine 4.2 H Glucose 120 H POC Glucose 146 H 146 H Calcium 7.5 L Magnesium AST Alkaline Phosphatase Lactate Dehydrogenase Total Creatine Kinase Total Protein Albumin Urine WBC (Auto) Crossmatch 06/26/16 06/26/16 06/26/16 06:30 11:38 16:45 WBC RBC Hgb POC Hgb Hct POC Hct MCH MCHC RDW Plt Count Lymph % (Auto) [place] % (Auto) Lymph # [place] # Baso # Seg Neutrophils % Seg Neuts % (Manual) Lymphocytes % (Manual) Monocytes % (Manual) Nucleated RBC % Seg Neutrophils # Seg Neutrophils # Man Lymphocytes # (Manual) Monocytes # (Manual) PT INR APTT Fibrinogen Heparin Anti-Xa Level POC ABG pH POC ABG pCO2 POC ABG pO2 POC Potassium POC Chloride Sodium Potassium Chloride Carbon Dioxide POC BUN BUN Creatinine Glucose POC Glucose 128 H 143 H 121 H Calcium Magnesium AST Alkaline Phosphatase Lactate Dehydrogenase Total Creatine Kinase Total Protein Albumin Urine WBC (Auto) Crossmatch 06/26/16 06/26/16 06/27/16 22:57 22:57 00:47 WBC RBC Hgb 8.4 L POC Hgb Hct 25.1 L POC Hct MCH MCHC RDW Plt Count Lymph % (Auto) [place] % (Auto) Lymph # [place] # Baso # Seg Neutrophils % Seg Neuts % (Manual) Lymphocytes % (Manual) Monocytes % (Manual) Nucleated RBC % Seg Neutrophils # Seg Neutrophils # Man Lymphocytes # (Manual) Monocytes # (Manual) PT 19.9 H INR 1.69 H APTT Fibrinogen Heparin Anti-Xa Level POC ABG pH POC ABG pCO2 POC ABG pO2 POC Potassium POC Chloride Sodium Potassium Chloride Carbon Dioxide POC BUN BUN Creatinine Glucose POC Glucose 110 H Calcium Magnesium AST Alkaline Phosphatase Lactate Dehydrogenase Total Creatine Kinase Total Protein Albumin Urine WBC (Auto) Crossmatch 06/27/16 06/27/16 06/27/16 05:43 05:43 06:40 WBC RBC Hgb POC Hgb Hct POC Hct MCH MCHC RDW Plt Count Lymph % (Auto) [place] % (Auto) Lymph # [place] # Baso # Seg Neutrophils % Seg Neuts % (Manual) Lymphocytes % (Manual) Monocytes % (Manual) Nucleated RBC % Seg Neutrophils # Seg Neutrophils # Man Lymphocytes # (Manual) Monocytes # (Manual) PT INR APTT Fibrinogen Heparin Anti-Xa Level 2.00 H POC ABG pH POC ABG pCO2 POC ABG pO2 POC Potassium POC Chloride Sodium Potassium Chloride Carbon Dioxide 20 L POC BUN BUN 58 H Creatinine 4.8 H Glucose POC Glucose 109 H Calcium 8.1 L Magnesium AST Alkaline Phosphatase Lactate Dehydrogenase Total Creatine Kinase Total Protein Albumin Urine WBC (Auto) Crossmatch 06/27/16 06/27/16 06/27/16 08:15 16:46 17:47 WBC RBC Hgb POC Hgb Hct POC Hct MCH MCHC RDW Plt Count Lymph % (Auto) [place] % (Auto) Lymph # [place] # Baso # Seg Neutrophils % Seg Neuts % (Manual) Lymphocytes % (Manual) Monocytes % (Manual) Nucleated RBC % Seg Neutrophils # Seg Neutrophils # Man Lymphocytes # (Manual) Monocytes # (Manual) PT INR APTT Fibrinogen Heparin Anti-Xa Level > 2.00 H 1.87 H POC ABG pH POC ABG pCO2 POC ABG pO2 POC Potassium POC Chloride Sodium Potassium Chloride Carbon Dioxide POC BUN BUN Creatinine Glucose POC Glucose 231 H Calcium Magnesium AST Alkaline Phosphatase Lactate Dehydrogenase Total Creatine Kinase Total Protein Albumin Urine WBC (Auto) Crossmatch 06/27/16 06/27/16 06/28/16 21:23 23:54 06:27 WBC RBC Hgb POC Hgb Hct POC Hct MCH MCHC RDW Plt Count Lymph % (Auto) [place] % (Auto) Lymph # [place] # Baso # Seg Neutrophils % Seg Neuts % (Manual) Lymphocytes % (Manual) Monocytes % (Manual) Nucleated RBC % Seg Neutrophils # Seg Neutrophils # Man Lymphocytes # (Manual) Monocytes # (Manual) PT INR APTT Fibrinogen Heparin Anti-Xa Level 1.70 H POC ABG pH POC ABG pCO2 POC ABG pO2 POC Potassium POC Chloride Sodium Potassium Chloride Carbon Dioxide POC BUN BUN 62 H Creatinine 4.5 H Glucose 111 H POC Glucose 122 H Calcium 8.3 L Magnesium AST Alkaline Phosphatase Lactate Dehydrogenase Total Creatine Kinase Total Protein Albumin Urine WBC (Auto) Crossmatch 06/28/16 06/28/16 06/28/16 06:27 11:47 14:14 WBC RBC Hgb 7.7 L POC Hgb Hct 22.9 L POC Hct MCH MCHC RDW Plt Count Lymph % (Auto) [place] % (Auto) Lymph # [place] # Baso # Seg Neutrophils % Seg Neuts % (Manual) Lymphocytes % (Manual) Monocytes % (Manual) Nucleated RBC % Seg Neutrophils # Seg Neutrophils # Man Lymphocytes # (Manual) Monocytes # (Manual) PT INR APTT Fibrinogen Heparin Anti-Xa Level POC ABG pH 7.461 H POC ABG pCO2 31.9 L POC ABG pO2 73 L POC Potassium POC Chloride Sodium Potassium Chloride Carbon Dioxide POC BUN BUN Creatinine Glucose POC Glucose 155 H Calcium Magnesium AST Alkaline Phosphatase Lactate Dehydrogenase Total Creatine Kinase Total Protein Albumin Urine WBC (Auto) Crossmatch 06/28/16 06/28/16 06/28/16 16:27 20:47 22:59 WBC RBC Hgb POC Hgb Hct POC Hct MCH MCHC RDW Plt Count Lymph % (Auto) [place] % (Auto) Lymph # [place] # Baso # Seg Neutrophils % Seg Neuts % (Manual) Lymphocytes % (Manual) Monocytes % (Manual) Nucleated RBC % Seg Neutrophils # Seg Neutrophils # Man Lymphocytes # (Manual) Monocytes # (Manual) PT INR APTT Fibrinogen Heparin Anti-Xa Level 1.16 H POC ABG pH POC ABG pCO2 POC ABG pO2 POC Potassium POC Chloride Sodium Potassium Chloride Carbon Dioxide POC BUN BUN Creatinine Glucose POC Glucose 193 H 126 H Calcium Magnesium AST Alkaline Phosphatase Lactate Dehydrogenase Total Creatine Kinase Total Protein Albumin Urine WBC (Auto) Crossmatch 06/29/16 06/29/16 06/29/16 05:51 09:10 09:10 WBC RBC Hgb POC Hgb Hct POC Hct MCH MCHC RDW Plt Count Lymph % (Auto) [place] % (Auto) Lymph # [place] # Baso # Seg Neutrophils % Seg Neuts % (Manual) Lymphocytes % (Manual) Monocytes % (Manual) Nucleated RBC % Seg Neutrophils # Seg Neutrophils # Man Lymphocytes # (Manual) Monocytes # (Manual) PT INR APTT Fibrinogen Heparin Anti-Xa Level 0.92 H POC ABG pH POC ABG pCO2 POC ABG pO2 POC Potassium POC Chloride Sodium Potassium Chloride Carbon Dioxide POC BUN BUN 53 H Creatinine 3.7 H Glucose 139 H POC Glucose 121 H Calcium 8.2 L Magnesium AST Alkaline Phosphatase Lactate Dehydrogenase Total Creatine Kinase Total Protein Albumin Urine WBC (Auto) Crossmatch 06/29/16 06/30/16 06/30/16 21:22 05:09 08:07 WBC RBC Hgb 7.3 L POC Hgb Hct 21.9 L POC Hct MCH MCHC RDW Plt Count Lymph % (Auto) [place] % (Auto) Lymph # [place] # Baso # Seg Neutrophils % Seg Neuts % (Manual) Lymphocytes % (Manual) Monocytes % (Manual) Nucleated RBC % Seg Neutrophils # Seg Neutrophils # Man Lymphocytes # (Manual) Monocytes # (Manual) PT INR APTT Fibrinogen Heparin Anti-Xa Level POC ABG pH POC ABG pCO2 POC ABG pO2 POC Potassium POC Chloride Sodium Potassium Chloride Carbon Dioxide POC BUN BUN Creatinine Glucose POC Glucose 108 H 106 H Calcium Magnesium AST Alkaline Phosphatase Lactate Dehydrogenase Total Creatine Kinase Total Protein Albumin Urine WBC (Auto) Crossmatch 06/30/16 06/30/16 06/30/16 10:48 12:13 16:48 WBC RBC Hgb POC Hgb Hct POC Hct MCH MCHC RDW Plt Count Lymph % (Auto) [place] % (Auto) Lymph # [place] # Baso # Seg Neutrophils % Seg Neuts % (Manual) Lymphocytes % (Manual) Monocytes % (Manual) Nucleated RBC % Seg Neutrophils # Seg Neutrophils # Man Lymphocytes # (Manual) Monocytes # (Manual) PT INR APTT Fibrinogen Heparin Anti-Xa Level POC ABG pH POC ABG pCO2 POC ABG pO2 POC Potassium POC Chloride Sodium Potassium Chloride Carbon Dioxide POC BUN BUN 46 H Creatinine 3.0 H Glucose POC Glucose 153 H 152 H Calcium Magnesium AST Alkaline Phosphatase Lactate Dehydrogenase Total Creatine Kinase Total Protein Albumin Urine WBC (Auto) Crossmatch 06/30/16 07/01/16 07/01/16 21:47 05:47 07:44 WBC 19.8 H RBC 2.45 L Hgb 7.2 L POC Hgb Hct 22.2 L POC Hct MCH MCHC RDW Plt Count 481 H Lymph % (Auto) 5.5 L [place] % (Auto) Lymph # 1.1 L [place] # 1.4 H Baso # Seg Neutrophils % 86.8 H Seg Neuts % (Manual) Lymphocytes % (Manual) Monocytes % (Manual) Nucleated RBC % Seg Neutrophils # 17.1 H Seg Neutrophils # Man Lymphocytes # (Manual) Monocytes # (Manual) PT INR APTT Fibrinogen Heparin Anti-Xa Level POC ABG pH POC ABG pCO2 POC ABG pO2 POC Potassium POC Chloride Sodium Potassium Chloride Carbon Dioxide POC BUN BUN Creatinine Glucose POC Glucose 162 H 124 H Calcium Magnesium AST Alkaline Phosphatase Lactate Dehydrogenase Total Creatine Kinase Total Protein Albumin Urine WBC (Auto) Crossmatch 07/01/16 07/01/16 07/01/16 07:44 11:55 16:16 WBC RBC Hgb POC Hgb Hct POC Hct MCH MCHC RDW Plt Count Lymph % (Auto) [place] % (Auto) Lymph # [place] # Baso # Seg Neutrophils % Seg Neuts % (Manual) Lymphocytes % (Manual) Monocytes % (Manual) Nucleated RBC % Seg Neutrophils # Seg Neutrophils # Man Lymphocytes # (Manual) Monocytes # (Manual) PT INR APTT Fibrinogen Heparin Anti-Xa Level POC ABG pH POC ABG pCO2 POC ABG pO2 POC Potassium POC Chloride Sodium Potassium 3.1 L Chloride Carbon Dioxide POC BUN BUN 38 H Creatinine 2.2 H Glucose 114 H POC Glucose 114 H 143 H Calcium Magnesium AST Alkaline Phosphatase Lactate Dehydrogenase Total Creatine Kinase Total Protein Albumin Urine WBC (Auto) Crossmatch 07/01/16 07/02/16 07/02/16 21:42 05:40 06:46 WBC 18.1 H RBC 2.45 L Hgb 7.3 L POC Hgb Hct 21.8 L POC Hct MCH MCHC RDW Plt Count 490 H Lymph % (Auto) 6.1 L [place] % (Auto) Lymph # 1.1 L [place] # 1.1 H Baso # 0.2 H Seg Neutrophils % 86.0 H Seg Neuts % (Manual) Lymphocytes % (Manual) Monocytes % (Manual) Nucleated RBC % Seg Neutrophils # 15.6 H Seg Neutrophils # Man Lymphocytes # (Manual) Monocytes # (Manual) PT INR APTT Fibrinogen Heparin Anti-Xa Level POC ABG pH POC ABG pCO2 POC ABG pO2 POC Potassium POC Chloride Sodium Potassium Chloride Carbon Dioxide POC BUN BUN Creatinine Glucose POC Glucose 135 H 135 H Calcium Magnesium AST Alkaline Phosphatase Lactate Dehydrogenase Total Creatine Kinase Total Protein Albumin Urine WBC (Auto) Crossmatch 07/02/16 07/02/16 07/02/16 06:46 06:49 11:23 WBC RBC Hgb POC Hgb Hct POC Hct MCH MCHC RDW Plt Count Lymph % (Auto) [place] % (Auto) Lymph # [place] # Baso # Seg Neutrophils % Seg Neuts % (Manual) Lymphocytes % (Manual) Monocytes % (Manual) Nucleated RBC % Seg Neutrophils # Seg Neutrophils # Man Lymphocytes # (Manual) Monocytes # (Manual) PT INR APTT Fibrinogen Heparin Anti-Xa Level POC ABG pH POC ABG pCO2 POC ABG pO2 POC Potassium POC Chloride Sodium Potassium 2.8 L* Chloride Carbon Dioxide POC BUN BUN 30 H Creatinine 1.8 H Glucose 121 H POC Glucose 121 H Calcium 8.1 L Magnesium 1.3 L AST Alkaline Phosphatase Lactate Dehydrogenase Total Creatine Kinase Total Protein Albumin Urine WBC (Auto) Crossmatch 07/02/16 07/02/16 07/03/16 17:02 21:31 05:35 WBC RBC Hgb POC Hgb Hct POC Hct MCH MCHC RDW Plt Count Lymph % (Auto) [place] % (Auto) Lymph # [place] # Baso # Seg Neutrophils % Seg Neuts % (Manual) Lymphocytes % (Manual) Monocytes % (Manual) Nucleated RBC % Seg Neutrophils # Seg Neutrophils # Man Lymphocytes # (Manual) Monocytes # (Manual) PT INR APTT Fibrinogen Heparin Anti-Xa Level POC ABG pH POC ABG pCO2 POC ABG pO2 POC Potassium POC Chloride Sodium Potassium Chloride Carbon Dioxide POC BUN BUN Creatinine Glucose POC Glucose 121 H 159 H 149 H Calcium Magnesium AST Alkaline Phosphatase Lactate Dehydrogenase Total Creatine Kinase Total Protein Albumin Urine WBC (Auto) Crossmatch 07/03/16 07/03/16 07/03/16 06:45 06:45 06:45 WBC 16.8 H RBC 2.21 L Hgb 6.5 L POC Hgb Hct 19.4 L* POC Hct MCH MCHC RDW Plt Count 503 H Lymph % (Auto) 6.4 L [place] % (Auto) Lymph # 1.1 L [place] # 1.1 H Baso # Seg Neutrophils % 85.6 H Seg Neuts % (Manual) Lymphocytes % (Manual) Monocytes % (Manual) Nucleated RBC % Seg Neutrophils # 14.4 H Seg Neutrophils # Man Lymphocytes # (Manual) Monocytes # (Manual) PT INR APTT Fibrinogen Heparin Anti-Xa Level POC ABG pH POC ABG pCO2 POC ABG pO2 POC Potassium POC Chloride Sodium Potassium 2.9 L* Chloride Carbon Dioxide POC BUN BUN 21 H Creatinine 1.6 H Glucose 126 H POC Glucose Calcium 8.0 L Magnesium 1.6 L AST Alkaline Phosphatase Lactate Dehydrogenase Total Creatine Kinase Total Protein Albumin Urine WBC (Auto) Crossmatch 07/03/16 07/03/16 07/03/16 12:54 19:00 20:01 WBC RBC Hgb POC Hgb Hct POC Hct MCH MCHC RDW Plt Count Lymph % (Auto) [place] % (Auto) Lymph # [place] # Baso # Seg Neutrophils % Seg Neuts % (Manual) Lymphocytes % (Manual) Monocytes % (Manual) Nucleated RBC % Seg Neutrophils # Seg Neutrophils # Man Lymphocytes # (Manual) Monocytes # (Manual) PT INR APTT Fibrinogen Heparin Anti-Xa Level POC ABG pH 7.302 L POC ABG pCO2 49.8 H POC ABG pO2 422 H POC Potassium POC Chloride Sodium Potassium Chloride Carbon Dioxide POC BUN BUN Creatinine Glucose POC Glucose 129 H Calcium Magnesium AST Alkaline Phosphatase Lactate Dehydrogenase Total Creatine Kinase Total Protein Albumin Urine WBC (Auto) Crossmatch See Detail 07/03/16 07/04/16 07/04/16 23:09 04:30 04:30 WBC 19.6 H RBC 3.21 L Hgb 9.4 L POC Hgb Hct 28.2 L POC Hct MCH MCHC RDW Plt Count Lymph % (Auto) 6.5 L [place] % (Auto) Lymph # [place] # 1.2 H Baso # Seg Neutrophils % 86.4 H Seg Neuts % (Manual) Lymphocytes % (Manual) Monocytes % (Manual) Nucleated RBC % Seg Neutrophils # 16.9 H Seg Neutrophils # Man Lymphocytes # (Manual) Monocytes # (Manual) PT INR APTT Fibrinogen Heparin Anti-Xa Level POC ABG pH POC ABG pCO2 POC ABG pO2 POC Potassium POC Chloride Sodium Potassium 3.5 L D Chloride 111.2 H Carbon Dioxide 20 L POC BUN BUN 18 H Creatinine Glucose POC Glucose 111 H Calcium 7.0 L Magnesium AST Alkaline Phosphatase Lactate Dehydrogenase Total Creatine Kinase Total Protein Albumin Urine WBC (Auto) Crossmatch 07/04/16 07/04/16 07/04/16 05:44 12:50 14:33 WBC RBC Hgb POC Hgb Hct POC Hct MCH MCHC RDW Plt Count Lymph % (Auto) [place] % (Auto) Lymph # [place] # Baso # Seg Neutrophils % Seg Neuts % (Manual) Lymphocytes % (Manual) Monocytes % (Manual) Nucleated RBC % Seg Neutrophils # Seg Neutrophils # Man Lymphocytes # (Manual) Monocytes # (Manual) PT INR APTT Fibrinogen Heparin Anti-Xa Level POC ABG pH 7.465 H 7.468 H POC ABG pCO2 29.5 L 29.1 L 33.1 L POC ABG pO2 110 H 39 L POC Potassium POC Chloride Sodium Potassium Chloride Carbon Dioxide POC BUN BUN Creatinine Glucose POC Glucose Calcium Magnesium AST Alkaline Phosphatase Lactate Dehydrogenase Total Creatine Kinase Total Protein Albumin Urine WBC (Auto) Crossmatch 07/04/16 07/05/16 07/05/16 16:49 00:20 04:19 WBC 16.2 H RBC 3.44 L Hgb POC Hgb Hct POC Hct MCH MCHC RDW Plt Count Lymph % (Auto) 5.2 L [place] % (Auto) 7.5 H Lymph # 0.8 L [place] # 1.2 H Baso # Seg Neutrophils % 86.5 H Seg Neuts % (Manual) Lymphocytes % (Manual) Monocytes % (Manual) Nucleated RBC % Seg Neutrophils # 14.0 H Seg Neutrophils # Man Lymphocytes # (Manual) Monocytes # (Manual) PT INR APTT Fibrinogen Heparin Anti-Xa Level POC ABG pH POC ABG pCO2 31.1 L POC ABG pO2 110 H POC Potassium POC Chloride Sodium Potassium Chloride Carbon Dioxide POC BUN BUN Creatinine Glucose POC Glucose 168 H Calcium Magnesium AST Alkaline Phosphatase Lactate Dehydrogenase Total Creatine Kinase Total Protein Albumin Urine WBC (Auto) Crossmatch 07/05/16 07/05/16 07/05/16 04:19 06:01 09:54 WBC RBC Hgb POC Hgb Hct POC Hct MCH MCHC RDW Plt Count Lymph % (Auto) [place] % (Auto) Lymph # [place] # Baso # Seg Neutrophils % Seg Neuts % (Manual) Lymphocytes % (Manual) Monocytes % (Manual) Nucleated RBC % Seg Neutrophils # Seg Neutrophils # Man Lymphocytes # (Manual) Monocytes # (Manual) PT INR APTT Fibrinogen Heparin Anti-Xa Level POC ABG pH POC ABG pCO2 POC ABG pO2 POC Potassium POC Chloride Sodium 146 H Potassium 3.5 L Chloride 109.1 H Carbon Dioxide POC BUN BUN Creatinine Glucose 135 H POC Glucose 146 H 284 H Calcium 7.8 L Magnesium AST Alkaline Phosphatase Lactate Dehydrogenase Total Creatine Kinase Total Protein Albumin Urine WBC (Auto) Crossmatch 07/05/16 07/06/16 07/06/16 13:35 04:40 04:40 WBC 17.7 H RBC 3.32 L Hgb 9.8 L POC Hgb Hct 29.8 L POC Hct MCH MCHC RDW Plt Count Lymph % (Auto) [place] % (Auto) Lymph # [place] # Baso # Seg Neutrophils % Seg Neuts % (Manual) 85.0 H Lymphocytes % (Manual) 4.0 L Monocytes % (Manual) 10.0 H Nucleated RBC % Seg Neutrophils # Seg Neutrophils # Man 15.0 H Lymphocytes # (Manual) 0.7 L Monocytes # (Manual) 1.8 H PT INR APTT Fibrinogen Heparin Anti-Xa Level POC ABG pH POC ABG pCO2 POC ABG pO2 POC Potassium POC Chloride Sodium Potassium 3.5 L Chloride Carbon Dioxide 21 L POC BUN BUN Creatinine Glucose 108 H POC Glucose 130 H Calcium 7.8 L Magnesium AST Alkaline Phosphatase Lactate Dehydrogenase Total Creatine Kinase Total Protein Albumin Urine WBC (Auto) Crossmatch 07/06/16 07/06/16 07/06/16 07:46 11:49 15:31 WBC RBC Hgb POC Hgb Hct POC Hct MCH MCHC RDW Plt Count Lymph % (Auto) [place] % (Auto) Lymph # [place] # Baso # Seg Neutrophils % Seg Neuts % (Manual) Lymphocytes % (Manual) Monocytes % (Manual) Nucleated RBC % Seg Neutrophils # Seg Neutrophils # Man Lymphocytes # (Manual) Monocytes # (Manual) PT INR APTT Fibrinogen Heparin Anti-Xa Level POC ABG pH POC ABG pCO2 POC ABG pO2 POC Potassium POC Chloride Sodium Potassium Chloride Carbon Dioxide POC BUN BUN Creatinine Glucose POC Glucose 149 H 146 H 135 H Calcium Magnesium AST Alkaline Phosphatase Lactate Dehydrogenase Total Creatine Kinase Total Protein Albumin Urine WBC (Auto) Crossmatch 07/06/16 07/06/16 07/07/16 17:17 20:59 04:53 WBC 15.5 H RBC 3.55 L Hgb POC Hgb Hct POC Hct MCH MCHC RDW Plt Count Lymph % (Auto) 4.9 L [place] % (Auto) Lymph # 0.8 L [place] # 0.9 H Baso # Seg Neutrophils % 87.9 H Seg Neuts % (Manual) Lymphocytes % (Manual) Monocytes % (Manual) Nucleated RBC % Seg Neutrophils # 13.7 H Seg Neutrophils # Man Lymphocytes # (Manual) Monocytes # (Manual) PT INR APTT Fibrinogen Heparin Anti-Xa Level POC ABG pH POC ABG pCO2 POC ABG pO2 POC Potassium POC Chloride Sodium Potassium Chloride Carbon Dioxide POC BUN BUN Creatinine Glucose POC Glucose 140 H Calcium Magnesium AST Alkaline Phosphatase Lactate Dehydrogenase Total Creatine Kinase Total Protein Albumin Urine WBC (Auto) 67.0 H Crossmatch 07/07/16 07/07/16 07/07/16 04:53 06:13 07:15 WBC RBC Hgb POC Hgb Hct POC Hct MCH MCHC RDW Plt Count Lymph % (Auto) [place] % (Auto) Lymph # [place] # Baso # Seg Neutrophils % Seg Neuts % (Manual) Lymphocytes % (Manual) Monocytes % (Manual) Nucleated RBC % Seg Neutrophils # Seg Neutrophils # Man Lymphocytes # (Manual) Monocytes # (Manual) PT INR APTT Fibrinogen Heparin Anti-Xa Level POC ABG pH POC ABG pCO2 POC ABG pO2 POC Potassium POC Chloride Sodium Potassium 3.4 L Chloride Carbon Dioxide POC BUN BUN Creatinine Glucose 104 H POC Glucose 122 H 134 H Calcium 8.0 L Magnesium AST Alkaline Phosphatase Lactate Dehydrogenase Total Creatine Kinase Total Protein Albumin Urine WBC (Auto) Crossmatch 07/07/16 07/07/16 07/07/16 08:06 08:06 10:31 WBC RBC Hgb POC Hgb Hct POC Hct MCH MCHC RDW Plt Count Lymph % (Auto) [place] % (Auto) Lymph # [place] # Baso # Seg Neutrophils % Seg Neuts % (Manual) Lymphocytes % (Manual) Monocytes % (Manual) Nucleated RBC % Seg Neutrophils # Seg Neutrophils # Man Lymphocytes # (Manual) Monocytes # (Manual) PT INR APTT Fibrinogen Heparin Anti-Xa Level POC ABG pH POC ABG pCO2 POC ABG pO2 POC Potassium POC Chloride Sodium Potassium Chloride Carbon Dioxide POC BUN BUN Creatinine Glucose 111 H POC Glucose 145 H Calcium 7.9 L Magnesium AST 53 H Alkaline Phosphatase 164 H Lactate Dehydrogenase Total Creatine Kinase Total Protein 6.2 L Albumin 1.4 L Urine WBC (Auto) Crossmatch See Detail 07/07/16 07/07/16 07/07/16 12:08 13:57 16:44 WBC RBC Hgb 9.7 L POC Hgb Hct 30.1 L POC Hct MCH MCHC RDW Plt Count Lymph % (Auto) [place] % (Auto) Lymph # [place] # Baso # Seg Neutrophils % Seg Neuts % (Manual) Lymphocytes % (Manual) Monocytes % (Manual) Nucleated RBC % Seg Neutrophils # Seg Neutrophils # Man Lymphocytes # (Manual) Monocytes # (Manual) PT INR APTT Fibrinogen Heparin Anti-Xa Level POC ABG pH POC ABG pCO2 POC ABG pO2 POC Potassium POC Chloride Sodium Potassium Chloride Carbon Dioxide POC BUN BUN Creatinine Glucose POC Glucose 159 H 173 H Calcium Magnesium AST Alkaline Phosphatase Lactate Dehydrogenase Total Creatine Kinase Total Protein Albumin Urine WBC (Auto) Crossmatch 07/07/16 07/08/16 07/08/16 23:31 07:27 12:16 WBC RBC Hgb POC Hgb Hct POC Hct MCH MCHC RDW Plt Count Lymph % (Auto) [place] % (Auto) Lymph # [place] # Baso # Seg Neutrophils % Seg Neuts % (Manual) Lymphocytes % (Manual) Monocytes % (Manual) Nucleated RBC % Seg Neutrophils # Seg Neutrophils # Man Lymphocytes # (Manual) Monocytes # (Manual) PT INR APTT Fibrinogen Heparin Anti-Xa Level POC ABG pH POC ABG pCO2 POC ABG pO2 POC Potassium POC Chloride Sodium Potassium Chloride Carbon Dioxide POC BUN BUN Creatinine Glucose POC Glucose 163 H 149 H 150 H Calcium Magnesium AST Alkaline Phosphatase Lactate Dehydrogenase Total Creatine Kinase Total Protein Albumin Urine WBC (Auto) Crossmatch 07/08/16 07/08/16 07/08/16 12:50 16:46 21:45 WBC RBC Hgb POC Hgb Hct POC Hct MCH MCHC RDW Plt Count Lymph % (Auto) [place] % (Auto) Lymph # [place] # Baso # Seg Neutrophils % Seg Neuts % (Manual) Lymphocytes % (Manual) Monocytes % (Manual) Nucleated RBC % Seg Neutrophils # Seg Neutrophils # Man Lymphocytes # (Manual) Monocytes # (Manual) PT INR APTT Fibrinogen Heparin Anti-Xa Level POC ABG pH POC ABG pCO2 POC ABG pO2 POC Potassium POC Chloride Sodium Potassium Chloride Carbon Dioxide 21 L POC BUN BUN Creatinine Glucose 126 H POC Glucose 143 H 134 H Calcium 7.5 L Magnesium AST Alkaline Phosphatase Lactate Dehydrogenase Total Creatine Kinase Total Protein Albumin Urine WBC (Auto) Crossmatch 07/09/16 07/09/16 07/09/16 07:31 07:31 08:07 WBC RBC Hgb POC Hgb Hct POC Hct MCH MCHC RDW Plt Count Lymph % (Auto) [place] % (Auto) Lymph # [place] # Baso # Seg Neutrophils % Seg Neuts % (Manual) Lymphocytes % (Manual) Monocytes % (Manual) Nucleated RBC % Seg Neutrophils # Seg Neutrophils # Man Lymphocytes # (Manual) Monocytes # (Manual) PT INR APTT Fibrinogen Heparin Anti-Xa Level POC ABG pH POC ABG pCO2 POC ABG pO2 POC Potassium POC Chloride Sodium Potassium Chloride Carbon Dioxide POC BUN BUN Creatinine Glucose 117 H POC Glucose 132 H Calcium 7.5 L Magnesium AST Alkaline Phosphatase 136 H Lactate Dehydrogenase 285 H Total Creatine Kinase 297 H Total Protein 5.4 L Albumin 1.5 L Urine WBC (Auto) Crossmatch 07/09/16 07/09/16 07/09/16 09:55 11:10 16:26 WBC 13.4 H RBC 1.95 L Hgb 5.8 L* D POC Hgb Hct 17.7 L* D POC Hct MCH MCHC RDW 15.5 H Plt Count Lymph % (Auto) 9.4 L [place] % (Auto) 8.3 H Lymph # [place] # 1.1 H Baso # Seg Neutrophils % 81.2 H Seg Neuts % (Manual) Lymphocytes % (Manual) Monocytes % (Manual) Nucleated RBC % Seg Neutrophils # 10.9 H Seg Neutrophils # Man Lymphocytes # (Manual) Monocytes # (Manual) PT INR APTT Fibrinogen Heparin Anti-Xa Level POC ABG pH POC ABG pCO2 POC ABG pO2 POC Potassium POC Chloride Sodium Potassium Chloride Carbon Dioxide POC BUN BUN Creatinine Glucose POC Glucose 240 H 113 H Calcium Magnesium AST Alkaline Phosphatase Lactate Dehydrogenase Total Creatine Kinase Total Protein Albumin Urine WBC (Auto) Crossmatch 07/09/16 07/10/16 07/10/16 21:45 04:10 09:03 WBC 15.1 H RBC 3.00 L Hgb 8.8 L D POC Hgb Hct 26.2 L D POC Hct MCH MCHC RDW 15.4 H Plt Count Lymph % (Auto) 8.4 L [place] % (Auto) 8.4 H Lymph # [place] # 1.3 H Baso # Seg Neutrophils % 82.5 H Seg Neuts % (Manual) Lymphocytes % (Manual) Monocytes % (Manual) Nucleated RBC % Seg Neutrophils # 12.5 H Seg Neutrophils # Man Lymphocytes # (Manual) Monocytes # (Manual) PT INR APTT Fibrinogen Heparin Anti-Xa Level POC ABG pH POC ABG pCO2 POC ABG pO2 POC Potassium POC Chloride Sodium Potassium Chloride Carbon Dioxide POC BUN BUN Creatinine Glucose POC Glucose 113 H 122 H Calcium Magnesium AST Alkaline Phosphatase Lactate Dehydrogenase Total Creatine Kinase Total Protein Albumin Urine WBC (Auto) Crossmatch 07/10/16 07/10/16 07/10/16 11:38 15:36 21:45 WBC RBC Hgb POC Hgb Hct POC Hct MCH MCHC RDW Plt Count Lymph % (Auto) [place] % (Auto) Lymph # [place] # Baso # Seg Neutrophils % Seg Neuts % (Manual) Lymphocytes % (Manual) Monocytes % (Manual) Nucleated RBC % Seg Neutrophils # Seg Neutrophils # Man Lymphocytes # (Manual) Monocytes # (Manual) PT INR APTT Fibrinogen Heparin Anti-Xa Level POC ABG pH POC ABG pCO2 POC ABG pO2 POC Potassium POC Chloride Sodium Potassium Chloride Carbon Dioxide POC BUN BUN Creatinine Glucose POC Glucose 146 H 131 H 141 H Calcium Magnesium AST Alkaline Phosphatase Lactate Dehydrogenase Total Creatine Kinase Total Protein Albumin Urine WBC (Auto) Crossmatch 07/11/16 07/11/16 07/11/16 05:10 07:40 11:45 WBC RBC Hgb POC Hgb Hct POC Hct MCH MCHC RDW Plt Count Lymph % (Auto) [place] % (Auto) Lymph # [place] # Baso # Seg Neutrophils % Seg Neuts % (Manual) Lymphocytes % (Manual) Monocytes % (Manual) Nucleated RBC % Seg Neutrophils # Seg Neutrophils # Man Lymphocytes # (Manual) Monocytes # (Manual) PT INR APTT Fibrinogen Heparin Anti-Xa Level POC ABG pH POC ABG pCO2 POC ABG pO2 POC Potassium POC Chloride Sodium Potassium Chloride Carbon Dioxide POC BUN BUN Creatinine Glucose 107 H POC Glucose 114 H 116 H Calcium 7.7 L Magnesium AST 81 H Alkaline Phosphatase 153 H Lactate Dehydrogenase Total Creatine Kinase Total Protein 6.0 L Albumin 1.8 L Urine WBC (Auto) Crossmatch 07/11/16 07/11/16 07/12/16 16:22 19:45 11:31 WBC RBC Hgb POC Hgb Hct POC Hct MCH MCHC RDW Plt Count Lymph % (Auto) Glascock % (Auto) Lymph # Glascock # Baso # Seg Neutrophils % Seg Neuts % (Manual) Lymphocytes % (Manual) Monocytes % (Manual) Nucleated RBC % Seg Neutrophils # Seg Neutrophils # Man Lymphocytes # (Manual) Monocytes # (Manual) PT INR APTT Fibrinogen Heparin Anti-Xa Level POC ABG pH POC ABG pCO2 POC ABG pO2 POC Potassium POC Chloride Sodium Potassium Chloride Carbon Dioxide POC BUN BUN Creatinine Glucose POC Glucose 110 H 106 H 128 H Calcium Magnesium AST Alkaline Phosphatase Lactate Dehydrogenase Total Creatine Kinase Total Protein Albumin Urine WBC (Auto) Crossmatch
--- NOTE | 2016-07-12 13:49 | Progress Note ---
Assessment and Plan Current antibiotics: Zosyn 4.5 grams IV q8h 07/08 --> Previous antibiotics: Zosyn 2.25 g IV q8h 06/21-06/24 Cefazolin perioperatively ASSESSMENT: Cande Ge is a 55-year-old female with severe peripheral vascular disease, type 2 DM with peripheral neuropathy and hypertension who was admitted [facility] as an outpatient with left lower extremity pain at rest for her cutaneous intervention which was unsuccessful and subsequently underwent left femoral endarterectomy and left iliac stenting and left femoral-popliteal bypass on 06/16 , urgent thrombectomies on 06/20 and right femoral endarterectomy with patch angioplasty on 07/03. She also had 2 cardiac arrests on 06/20 requiring resuscitation and intubation. She developed evidence of a retroperitoneal hematoma and ureteral obstruction and underwent bilateral ureteral stenting on 06/27. She has had a low-grade fever and leukocytosis. Problem list: 1. Leukocytosis -Likely reactive -Patient has multiple reasons for leukocytosis including retroperitoneal hematoma , GI bleeding and multiple surgeries -Status post left groin infection and infected Dacron patch 2. Low-grade fever -Resolved 3. Left groin wound infection -Status post debridement of the left groin wound, removal of an infected Dacron patch from the SFA, removal of this thrombosed infected vein bypass graft proximal portionand creation of the sartorius muscle flap over common femoral artery bovine pericardial patch 07/08 -Polymicrobial with Escherichia coli, Enterococcus faecalis and Streptococcal species growing so far 4. Severe peripheral vascular disease -Unsuccessful attempt at percutaneous left lower extremity revascularization 06/13 -Left femoral endarterectomy, left iliac stenting and left femoral-popliteal bypass on 06/16 -Left lower extremity thrombectomies on 06/20 -Right femoral endarterectomy with patch angioplasty on 07/03 -Left lower extremity felt to be nonsalvageable 5. Retroperitoneal hematoma -As seen on CT scan 06/27 6. Bilateral hydroureteronephrosis -Status post bilateral ureteral stenting 06/27 7. Status post cardiopulmonary arrests X 2 -06/20 -Mechanical ventilatory support until 07/05 8. REJI -Creatinine peaked at 4.8 on 06/27 -Likely secondary to ATN -Resolved 9. Anemia -Likely multifactorial secondary to bleeding and chronic disease 10. Type 2 DM PLAN: 1. Continue Zosyn 2. Continue local wound care 3. Vascular plans noted. They will discuss AKA with the patient when her family is available next week 4. Continued supportive measures and close observation Subjective Date of service: 07/12/16 Principal diagnosis: Acute Hypoxemic Respiratory Failure; s/p cardiopulmonary arrest Interval history: Patient awake holding balloons while in bed. Patient appears to be somewhat confused but is pleasant and cooperative and talkative. Patient appears to be no distress. Patient is asking when she can leave. Review of systems: Patient denies chest pain or chest pressure. Patient denied shortness of breath cough or fever current time Objective - Exam Narrative Exam: GENERAL: Well-developed, well-nourished appearing female who appears somewhat older than her stated age and appears chronically ill but is in no acute distress. Patient is holding balloons while in bed HEAD: Normocephalic. No lesions seen. EYES: Pupils are equal reactive to light and accommodation. There is no scleral icterus. Optic fundi are not examined. EARS: No evidence of external drainage THROAT: Oropharynx is normal with no evidence of oral candidiasis or pharyngitis. Patient is edentulous. NECK: Supple. No enlargement of the thyroid gland. No significant cervical lymphadenopathy. No jugular venous distention at 60. LUNGS: Clear with no adventitious sounds. HEART: Regular rate with occasional extra beat heard. S1 and S2 are normal. There are no murmurs, gallops, clicks or rubs heard. ABDOMEN: Soft and nontender. Liver and spleen are not palpably enlarged or tender. No palpable masses. Bowel sounds are normoactive. EXTREMITIES: No peripheral lymphadenopathy or clubbing. There is moderate bilateral lower extremity edema with diffuse tenderness to palpation but no increased erythema. Left lower extremity is cool to touch. SKIN: Multiple surgical wounds show no evidence of wound infection. The right femoral incision with samaria in place and no drainage or signs of infection. Left groin wound VAC in place with no signs of infection outside its margins. Right chest Vas-Cath in place with no redness noted NEUROLOGIC: Bilateral lower extremity weakness. No other focal findings. - Constitutional Vitals: Vital Signs Temp Pulse Resp BP Pulse Ox 98.5 F 107 H 17 139/70 99 07/12/16 12:00 07/12/16 13:00 07/12/16 13:00 07/12/16 13:00 07/12/16 13:00 Temperature -Last 24 Hours Temperature 98.5 F Temperature 98.7 F Temperature 98 F Temperature 98.3 F Temperature 98.2 F Temperature 98.3 F - Labs CBC & Chem 7: 07/10/16 04:10 07/11/16 05:10 Labs: Abnormal lab results 07/11/16 07/11/16 07/12/16 Range/Units 16:22 19:45 11:31 POC Glucose 110 H 106 H 128 H (70-105)
[2016-07-12] MEDS: PROTONIX PO SCH (13:57)
[2016-07-12] MEDS: K-DUR PO SCH (13:57)
[2016-07-12] MEDS: PLAVIX PO SCH (13:57)
[2016-07-12] MEDS: FERROUS SULFATE PO SCH (13:58)
[2016-07-12] MEDS: BABY ASPIRIN PO SCH (13:58)
[2016-07-12] MEDS: TENORMIN PO SCH (13:58)
[2016-07-12] MEDS: SENOKOT S PO SCH (14:06)
--- NOTE | 2016-07-12 14:52 | Progress Note ---
Assessment and Plan Patient will require left lower extremity above-knee amputation. This has previously been discussed with patient. Family is not at bedside. Will obtain consent when family is at bedside. We'll plan for above-knee amputation early this upcoming week. Patient will need rehabilitation afterwards. Continue antiplatelet regimen. Do not recommend cessation of antiplatelet regimen, as this could result in limb loss of the right lower extremity. Subjective Date of service: 07/12/16 Principal diagnosis: Acute Hypoxemic Respiratory Failure; s/p cardiopulmonary arrest Interval history: Slightly decreased mental status. This is unchanged since according to nurse caring for patient. Patient complains of nothing when asked, but when I evaluated her right and left groin, she complains of pain at the sites. Right foot without motor function, left foot without motor function. Right foot warm. Left foot cold. Right groin with serosanguineous drainage. Dressing removed and 4 x 4 with paper tape applied. Objective - Constitutional Vitals: Vital Signs - 12hr 07/12/16 07/12/16 07/12/16 03:00 03:43 03:47 Temperature Pulse Rate 101 H 98 H 99 H Pulse Rate [ Apical] Pulse Rate [ From Monitor] Pulse Rate [ Left Radial] Pulse Rate [ Right Dorsalis Pedis] Pulse Rate [ Right Radial] Respiratory 15 12 14 Rate Blood Pressure 125/61 129/65 129/65 O2 Sat by Pulse 91 97 97 Oximetry 07/12/16 07/12/16 07/12/16 03:48 03:51 03:52 Temperature 98 F Pulse Rate 120 H Pulse Rate [ 87 Apical] Pulse Rate [ 87 From Monitor] Pulse Rate [ 87 Left Radial] Pulse Rate [ 87 Right Dorsalis Pedis] Pulse Rate [ 87 Right Radial] Respiratory Rate Blood Pressure O2 Sat by Pulse 100 Oximetry 07/12/16 07/12/16 07/12/16 03:55 04:00 04:17 Temperature Pulse Rate 101 H 99 H 102 H Pulse Rate [ Apical] Pulse Rate [ From Monitor] Pulse Rate [ Left Radial] Pulse Rate [ Right Dorsalis Pedis] Pulse Rate [ Right Radial] Respiratory 12 12 14 Rate Blood Pressure 129/65 124/64 124/64 O2 Sat by Pulse 99 97 99 Oximetry 07/12/16 07/12/16 07/12/16 04:19 04:41 04:49 Temperature Pulse Rate 98 H 100 H 97 H Pulse Rate [ Apical] Pulse Rate [ From Monitor] Pulse Rate [ Left Radial] Pulse Rate [ Right Dorsalis Pedis] Pulse Rate [ Right Radial] Respiratory 13 12 15 Rate Blood Pressure 124/64 120/61 120/61 O2 Sat by Pulse 97 98 100 Oximetry 07/12/16 07/12/16 07/12/16 04:51 05:00 05:01 Temperature Pulse Rate 97 H 99 H 98 H Pulse Rate [ Apical] Pulse Rate [ From Monitor] Pulse Rate [ Left Radial] Pulse Rate [ Right Dorsalis Pedis] Pulse Rate [ Right Radial] Respiratory 13 13 13 Rate Blood Pressure 120/61 129/62 129/62 O2 Sat by Pulse 100 100 100 Oximetry 07/12/16 07/12/16 07/12/16 06:00 06:15 07:00 Temperature Pulse Rate 99 H 98 H 105 H Pulse Rate [ Apical] Pulse Rate [ From Monitor] Pulse Rate [ Left Radial] Pulse Rate [ Right Dorsalis Pedis] Pulse Rate [ Right Radial] Respiratory 15 13 17 Rate Blood Pressure 133/62 133/62 131/69 O2 Sat by Pulse 98 99 98 Oximetry 07/12/16 07/12/16 07/12/16 07:57 08:00 08:39 Temperature Pulse Rate 103 H 100 H 100 H Pulse Rate [ Apical] Pulse Rate [ 101 H From Monitor] Pulse Rate [ Left Radial] Pulse Rate [ Right Dorsalis Pedis] Pulse Rate [ Right Radial] Respiratory 11 L 11 L 9 L Rate Blood Pressure 117/51 133/67 125/58 O2 Sat by Pulse 97 96 100 Oximetry 07/12/16 07/12/16 07/12/16 08:51 09:00 09:13 Temperature 98.7 F Pulse Rate 100 H 100 H Pulse Rate [ Apical] Pulse Rate [ From Monitor] Pulse Rate [ Left Radial] Pulse Rate [ Right Dorsalis Pedis] Pulse Rate [ Right Radial] Respiratory 11 L 12 Rate Blood Pressure 131/58 131/58 O2 Sat by Pulse 99 96 Oximetry 07/12/16 07/12/16 07/12/16 10:00 10:23 11:00 Temperature Pulse Rate 107 H 105 H 105 H Pulse Rate [ Apical] Pulse Rate [ From Monitor] Pulse Rate [ Left Radial] Pulse Rate [ Right Dorsalis Pedis] Pulse Rate [ Right Radial] Respiratory 14 11 L 14 Rate Blood Pressure 120/68 120/68 119/66 O2 Sat by Pulse 98 100 99 Oximetry 07/12/16 07/12/16 07/12/16 11:04 11:51 12:00 Temperature 98.5 F Pulse Rate 106 H 105 H Pulse Rate [ 101 H Apical] Pulse Rate [ 109 H From Monitor] Pulse Rate [ Left Radial] Pulse Rate [ Right Dorsalis Pedis] Pulse Rate [ Right Radial] Respiratory 14 10 L 17 Rate Blood Pressure 115/64 125/67 O2 Sat by Pulse 99 99 Oximetry 07/12/16 07/12/16 07/12/16 12:59 13:00 13:02 Temperature Pulse Rate 107 H 107 H 107 H Pulse Rate [ Apical] Pulse Rate [ From Monitor] Pulse Rate [ Left Radial] Pulse Rate [ Right Dorsalis Pedis] Pulse Rate [ Right Radial] Respiratory 16 17 15 Rate Blood Pressure 133/64 139/70 133/64 O2 Sat by Pulse 98 99 99 Oximetry 07/12/16 07/12/16 13:58 14:00 Temperature Pulse Rate 109 H 110 H Pulse Rate [ Apical] Pulse Rate [ From Monitor] Pulse Rate [ Left Radial] Pulse Rate [ Right Dorsalis Pedis] Pulse Rate [ Right Radial] Respiratory 13 Rate Blood Pressure 139/74 145/65 O2 Sat by Pulse 100 Oximetry General appearance: Present: no acute distress - EENT Eyes: EOM intact ENT: hearing intact - Respiratory Respiratory effort: normal Extremities: normal temperature (right lower extremity), normal color (right lower extremity) Extremity abnormal: cold (left foot), other (decreased motor function right and left foot, decreased sensation right and left foot) - Psychiatric Psychiatric: intact judgment & insight, agitated - Labs CBC & Chem 7: 07/10/16 04:10 07/11/16 05:10 Labs: Abnormal lab results 07/11/16 07/11/16 07/12/16 Range/Units 16:22 19:45 11:31 POC Glucose 110 H 106 H 128 H (70-105)
[2016-07-12] MEDS: D5W/0.45% NACL/KCL 20 MEQ 1,000 ML IV SCH (18:41)
[2016-07-13] MEDS: ZOSYN/NS 4.5GM/100ML 100 ML IV SCH ×4 (04:40→22:22)
[2016-07-13] MEDS: SENOKOT S PO SCH ×3 (07:15→22:24)
[2016-07-13] MEDS: MORPHINE PCA 30MG/30ML IV SCH ×2 (07:27→19:30)
[2016-07-13 07:31] LABS: Basophils % (Auto) 0.4 % (0.0-1.8); Eosinophils % (Auto) 0.3 % (0.0-4.3); Hematocrit 25.6 % (30.3-42.9); Hemoglobin 8.5 gm/dl (10.1-14.3); Mean Corpuscular HGB Conc 33 % (30-34); Mean Corpuscular Hemoglobin 29 pg (28-32); Mean Corpuscular Volume 88 fl (79-97); Platelet Count 289 K/mm3 (140-440); Red Blood Count 2.93 M/mm3 (3.65-5.03); Red Cell Distribution Width 14.9 % (13.2-15.2); White Blood Count 12.4 K/mm3 (4.5-11.0)
[2016-07-13] MEDS: D5W/0.45% NACL/KCL 20 MEQ 1,000 ML IV SCH ×2 (09:19→21:00)
[2016-07-13] MEDS: TENORMIN PO SCH (09:28)
[2016-07-13] MEDS: PLAVIX PO SCH (09:28)
[2016-07-13] MEDS: K-DUR PO SCH (09:29)
[2016-07-13] MEDS: BABY ASPIRIN PO SCH (09:29)
[2016-07-13] MEDS: FERROUS SULFATE PO SCH (09:29)
[2016-07-13] MEDS: PROTONIX PO SCH (09:29)
[2016-07-13] MEDS: THERMAZENE 50 GRAM TP SCH (10:23)
[2016-07-13] MEDS: NOVOLOG SUB-Q SCH ×3 (11:45→22:30)
--- NOTE | 2016-07-13 13:30 | Progress Note ---
Assessment and Plan Patient will require left lower extremity above-knee amputation. This has previously been discussed with patient. Family is not at bedside. Will obtain consent when family is at bedside. We'll plan for above-knee amputation early this upcoming week. Patient will need rehabilitation afterwards. Continue antiplatelet regimen. Do not recommend cessation of antiplatelet regimen, as this could result in limb loss of the right lower extremity. Has superficial eschar on dorsal surface of right foot with severe PVD ; at risk for limb loss. Will need revascularization of RLE. Time of such procedures is complicated by active issues with left lower extremity. Subjective Date of service: 07/13/16 Principal diagnosis: Acute Hypoxemic Respiratory Failure; s/p cardiopulmonary arrest Interval history: Slightly improved mental status. Patient complains of pain at the incision groin sites. Right foot without motor function, left foot without motor function. Right foot warm. Left foot cold. 4 cm x 4 cm superficial eschar on the dorsum of the right foot. Right groin still has serosanguineous drainage. Objective - Constitutional Vitals: Vital Signs - 12hr 07/13/16 07/13/16 07/13/16 02:01 03:00 04:00 Temperature 98.2 F Pulse Rate 100 H 99 H 101 H Pulse Rate [ Apical] Pulse Rate [ From Monitor] Respiratory 18 14 14 Rate Blood Pressure 141/67 134/65 128/68 O2 Sat by Pulse 99 99 99 Oximetry 07/13/16 07/13/16 07/13/16 05:00 06:00 06:23 Temperature Pulse Rate 100 H Pulse Rate [ Apical] Pulse Rate [ From Monitor] Respiratory 19 Rate Blood Pressure 132/58 141/70 141/70 O2 Sat by Pulse 99 99 100 Oximetry 07/13/16 07/13/16 07/13/16 06:41 07:00 07:53 Temperature Pulse Rate Pulse Rate [ Apical] Pulse Rate [ From Monitor] Respiratory Rate Blood Pressure 133/63 143/66 123/62 O2 Sat by Pulse 100 100 98 Oximetry 07/13/16 07/13/16 07/13/16 08:00 08:01 09:00 Temperature 99.7 F H Pulse Rate 112 H Pulse Rate [ 103 H Apical] Pulse Rate [ 103 H From Monitor] Respiratory 12 15 Rate Blood Pressure 125/63 125/63 144/73 O2 Sat by Pulse 100 99 98 Oximetry 0107/13/16 07/13/16 09:28 10:00 10:15 Temperature Pulse Rate 102 H 101 H 97 H Pulse Rate [ Apical] Pulse Rate [ From Monitor] Respiratory 15 15 Rate Blood Pressure 144/73 138/61 138/61 O2 Sat by Pulse 100 100 Oximetry 07/13/16 07/13/16 07/13/16 11:00 11:33 11:38 Temperature Pulse Rate 98 H 101 H Pulse Rate [ 99 H Apical] Pulse Rate [ 99 H From Monitor] Respiratory 16 15 19 Rate Blood Pressure 137/77 143/67 O2 Sat by Pulse 100 98 Oximetry General appearance: Present: no acute distress - EENT Eyes: EOM intact ENT: hearing intact - Respiratory Respiratory effort: normal Extremities: normal temperature (rle), normal color (rle) Extremity abnormal: ulceration (superficial eschar on dorsum of right foot), cold (lle), other (immobile right and left foot ) - Psychiatric Psychiatric: cooperative - Labs CBC & Chem 7: 07/13/16 07:05 07/11/16 05:10 Labs: Abnormal lab results 07/12/16 07/12/16 07/13/16 Range/Units 08:39 16:36 07:05 WBC 12.4 H (4.5-11.0) K/mm3 RBC 2.93 L (3.65-5.03) M/mm3 Hgb 8.5 L (10.1-14.3) gm/dl Hct 25.6 L (30.3-42.9) % Lymph % (Auto) 11.2 L (13.4-35.0) % Charles % (Auto) 7.5 H (0.0-7.3) % Charles # 0.9 H (0.0-0.8) K/mm3 Seg Neutrophils % 80.6 H (40.0-70.0) % Seg Neutrophils # 10.0 H (1.8-7.7) K/mm3 POC Glucose 124 H 119 H (70-105) 07/13/16 Range/Units 07:30 WBC (4.5-11.0) K/mm3 RBC (3.65-5.03) M/mm3 Hgb (10.1-14.3) gm/dl Hct (30.3-42.9) % Lymph % (Auto) (13.4-35.0) % Charles % (Auto) (0.0-7.3) % Charles # (0.0-0.8) K/mm3 Seg Neutrophils % (40.0-70.0) % Seg Neutrophils # (1.8-7.7) K/mm3 POC Glucose 133 H (70-105)
[2016-07-13] MEDS ORDERED: NACL 0.9% 500 ML 500 ML IV NR (13:31)
--- NOTE | 2016-07-13 13:56 | Progress Note ---
Assessment and Plan Current antibiotics: Zosyn 4.5 grams IV q8h 07/08 --> Previous antibiotics: Zosyn 2.25 g IV q8h 06/21-06/24 Cefazolin perioperatively ASSESSMENT: Cande Ge is a 55-year-old female with severe peripheral vascular disease, type 2 DM with peripheral neuropathy and hypertension who was admitted to [facility] as an outpatient with left lower extremity pain at rest for her cutaneous intervention which was unsuccessful and subsequently underwent left femoral endarterectomy and left iliac stenting and left femoral-popliteal bypass on 06/16 , urgent thrombectomies on 06/20 and right femoral endarterectomy with patch angioplasty on 07/03. She also had 2 cardiac arrests on 06/20 requiring resuscitation and intubation. She developed evidence of a retroperitoneal hematoma and ureteral obstruction and underwent bilateral ureteral stenting on 06/27. She has had a low-grade fever and leukocytosis. Problem list: 1. Leukocytosis -Likely reactive -Patient has multiple reasons for leukocytosis including retroperitoneal hematoma , GI bleeding and multiple surgeries -Status post left groin infection and infected Dacron patch 2. Low-grade fever -Resolved 3. Left groin wound infection -Status post debridement of the left groin wound, removal of an infected Dacron patch from the SFA, removal of this thrombosed infected vein bypass graft proximal portionand creation of the sartorius muscle flap over common femoral artery bovine pericardial patch 07/08 -Polymicrobial with Escherichia coli, Enterococcus faecalis and Streptococcal species growing so far 4. Severe peripheral vascular disease -Unsuccessful attempt at percutaneous left lower extremity revascularization 06/13 -Left femoral endarterectomy, left iliac stenting and left femoral-popliteal bypass on 06/16 -Left lower extremity thrombectomies on 06/20 -Right femoral endarterectomy with patch angioplasty on 07/03 -Left lower extremity felt to be nonsalvageable 5. Retroperitoneal hematoma -As seen on CT scan 06/27 -R/O secondary infection 6. Bilateral hydroureteronephrosis -Status post bilateral ureteral stenting 06/27 7. Status post cardiopulmonary arrests X 2 -06/20 -Mechanical ventilatory support until 07/05 8. REJI -Creatinine peaked at 4.8 on 06/27 -Likely secondary to ATN -Resolved 9. Anemia -Likely multifactorial secondary to bleeding and chronic disease 10. Type 2 DM PLAN: 1. Continue Zosyn 2. Continue local wound care 3. Vascular plans noted. Left AKA planned for next week. 4. Continued supportive measures and close observation Subjective Date of service: 07/13/16 Principal diagnosis: Acute Hypoxemic Respiratory Failure; s/p cardiopulmonary arrest Interval history: Complaining of left leg pain. Objective - Exam Narrative Exam: GENERAL: Well-developed, well-nourished appearing female who appears somewhat older than her stated age and appears chronically ill but is in no acute distress. Patient is holding balloons while in bed HEAD: Normocephalic. No lesions seen. EYES: Pupils are equal reactive to light and accommodation. There is no scleral icterus. Optic fundi are not examined. EARS: No evidence of external drainage THROAT: Oropharynx is normal with no evidence of oral candidiasis or pharyngitis. Patient is edentulous. NECK: Supple. No enlargement of the thyroid gland. No significant cervical lymphadenopathy. No jugular venous distention at 60. LUNGS: Clear with no adventitious sounds. HEART: Regular rate with occasional extra beat heard. S1 and S2 are normal. There are no murmurs, gallops, clicks or rubs heard. ABDOMEN: Soft and nontender. Liver and spleen are not palpably enlarged or tender. No palpable masses. Bowel sounds are normoactive. EXTREMITIES: No peripheral lymphadenopathy or clubbing. There is moderate bilateral lower extremity edema with diffuse tenderness to palpation but no increased erythema. Left lower extremity is cool to touch. SKIN: Multiple surgical wounds show no evidence of wound infection. The right femoral incision with samaria in place and no drainage or signs of infection. Left groin wound VAC in place with no signs of infection outside its margins. Left foot is cool to touch. Darkening skin changes over dorsum of right foot. Right foot is warm. Right chest Vas-Cath in place with no redness noted NEUROLOGIC: Bilateral lower extremity weakness. No other focal findings. - Constitutional Vitals: Vital Signs Temp Pulse Resp BP Pulse Ox 99.7 F H 99 H 19 143/67 98 07/13/16 08:00 07/13/16 11:38 07/13/16 11:38 07/13/16 11:33 07/13/16 11:33 Temperature -Last 24 Hours Temperature 99.7 F Temperature 98.2 F Temperature 98.5 F Temperature 98.1 F Temperature 99.1 F - Labs CBC & Chem 7: 07/13/16 07:05 07/11/16 05:10 Labs: Abnormal lab results 07/12/16 07/12/16 07/13/16 Range/Units 08:39 16:36 07:05 WBC 12.4 H (4.5-11.0) K/mm3 RBC 2.93 L (3.65-5.03) M/mm3 Hgb 8.5 L (10.1-14.3) gm/dl Hct 25.6 L (30.3-42.9) % Lymph % (Auto) 11.2 L (13.4-35.0) % [place] % (Auto) 7.5 H (0.0-7.3) % [place] # 0.9 H (0.0-0.8) K/mm3 Seg Neutrophils % 80.6 H (40.0-70.0) % Seg Neutrophils # 10.0 H (1.8-7.7) K/mm3 POC Glucose 124 H 119 H (70-105) 07/13/16 Range/Units 07:30 WBC (4.5-11.0) K/mm3 RBC (3.65-5.03) M/mm3 Hgb (10.1-14.3) gm/dl Hct (30.3-42.9) % Lymph % (Auto) (13.4-35.0) % [place] % (Auto) (0.0-7.3) % [place]ickman # (0.0-0.8) K/mm3 Seg Neutrophils % (40.0-70.0) % Seg Neutrophils # (1.8-7.7) K/mm3 POC Glucose 133 H (70-105)
--- NOTE | 2016-07-13 14:13 | Progress Note ---
Assessment and Plan - Patient Problems (1) Peripheral vascular disease of extremity Current Visit: Yes Status: Acute Plan to address problem: - tentatively for AKA left leg te coming - vascular surgery managing - continue analgesia (2) Acute respiratory failure Current Visit: Yes Status: Acute Plan to address problem: - on room air but need to r/o hemothorax which will necessitate further intervention - thoracentesis on hold re: plavix but also clinical stability respiratory-centeno (3) Anemia Current Visit: Yes Status: Acute Plan to address problem: - follow H&H - evaluating source - LDH unremarkable - Likely ABLA component (4) Altered mental status Current Visit: Yes Status: Acute Plan to address problem: - improved - dementia element likely +/- depression element Subjective Date of service: 07/13/16 Principal diagnosis: Acute Hypoxemic Respiratory Failure; s/p cardiopulmonary arrest Interval history: Seen and examined at bedside; 24 hour events reviewed; nursing and respiratory care staff consulted; no adverse overnight events reported to me; resting peacefully; no new issues; for surgery on Thursday Objective Vital Signs - 12hr 07/13/16 07/13/16 07/13/16 03:00 04:00 05:00 Temperature 98.2 F Pulse Rate 99 H 101 H 100 H Pulse Rate [ Apical] Pulse Rate [ From Monitor] Respiratory 14 14 19 Rate Blood Pressure 134/65 128/68 132/58 O2 Sat by Pulse 99 99 99 Oximetry 07/13/16 07/13/16 07/13/16 06:00 06:23 06:41 Temperature Pulse Rate Pulse Rate [ Apical] Pulse Rate [ From Monitor] Respiratory Rate Blood Pressure 141/70 141/70 133/63 O2 Sat by Pulse 99 100 100 Oximetry 07/13/16 07/13/16 07/13/16 07:00 07:53 08:00 Temperature 99.7 F H Pulse Rate Pulse Rate [ 103 H Apical] Pulse Rate [ 103 H From Monitor] Respiratory 12 Rate Blood Pressure 143/66 123/62 125/63 O2 Sat by Pulse 100 98 100 Oximetry 07/13/16 07/13/16 07/13/16 08:01 09:00 09:28 Temperature Pulse Rate 112 H 102 H Pulse Rate [ Apical] Pulse Rate [ From Monitor] Respiratory 15 Rate Blood Pressure 125/63 144/73 144/73 O2 Sat by Pulse 99 98 Oximetry 07/13/16 07/13/16 07/13/16 10:00 10:15 11:00 Temperature Pulse Rate 101 H 97 H 98 H Pulse Rate [ Apical] Pulse Rate [ From Monitor] Respiratory 15 15 16 Rate Blood Pressure 138/61 138/61 137/77 O2 Sat by Pulse 100 100 100 Oximetry 07/13/16 07/13/16 11:33 11:38 Temperature Pulse Rate 101 H Pulse Rate [ 99 H Apical] Pulse Rate [ 99 H From Monitor] Respiratory 15 19 Rate Blood Pressure 143/67 O2 Sat by Pulse 98 Oximetry Constitutional: no acute distress, alert Eyes: non-icteric ENT: oropharynx moist Neck: supple, no lymphadenopathy Effort: normal Ascultation: Left: diminished breath sounds (base), Bilateral: clear Cardiovascular: regular rate and rhythm Gastrointestinal: normoactive bowel sounds, soft, non-tender, non-distended Integumentary: other (weak LLExt) Extremities: no cyanosis, edema, other (LLExt cool; no obvious cyanosis) Neurologic: normal mental status, non-focal exam, pupils equal and round Psychiatric: mood appropriate, affect normal CBC and BMP: 07/15/16 04:15 07/15/16 04:15 ABG, PT/INR, D-dimer: ABG POC ABG pH 7.436 (7.35-7.45) 07/04/16 16:49 POC ABG pCO2 31.1 (35-45) L 07/04/16 16:49 POC ABG pO2 110 (80-105) H 07/04/16 16:49 POC ABG HCO3 20.9 07/04/16 16:49 POC ABG Total CO2 22 07/04/16 16:49 POC ABG O2 Sat 99 07/04/16 16:49 PT/INR, D-dimer PT 19.9 Sec. (12.2-14.9) H 06/26/16 22:57 INR 1.69 (0.87-1.13) H 06/26/16 22:57 Abnormal lab findings: Abnormal Labs 06/13/16 06/13/16 06/13/16 09:45 09:45 09:45 WBC RBC Hgb POC Hgb Hct POC Hct MCH 25 L MCHC RDW 15.8 H Plt Count Lymph % (Auto) [place] % (Auto) 8.1 H Lymph # [place] # Baso # Seg Neutrophils % Seg Neuts % (Manual) Lymphocytes % (Manual) Monocytes % (Manual) Nucleated RBC % Seg Neutrophils # Seg Neutrophils # Man Lymphocytes # (Manual) Monocytes # (Manual) PT INR APTT Fibrinogen 522 H Heparin Anti-Xa Level POC ABG pH POC ABG pCO2 POC ABG pO2 POC Potassium POC Chloride Sodium Potassium Chloride Carbon Dioxide POC BUN BUN Creatinine Glucose POC Glucose Calcium 10.3 H Magnesium AST Alkaline Phosphatase Lactate Dehydrogenase Total Creatine Kinase Total Protein Albumin Urine WBC (Auto) Crossmatch 06/13/16 06/13/16 06/13/16 09:45 20:14 20:15 WBC RBC Hgb POC Hgb Hct POC Hct MCH MCHC RDW Plt Count Lymph % (Auto) [place] % (Auto) Lymph # [place] # Baso # Seg Neutrophils % Seg Neuts % (Manual) Lymphocytes % (Manual) Monocytes % (Manual) Nucleated RBC % Seg Neutrophils # Seg Neutrophils # Man Lymphocytes # (Manual) Monocytes # (Manual) PT INR APTT 103.8 H* Fibrinogen Heparin Anti-Xa Level 0.72 H POC ABG pH POC ABG pCO2 POC ABG pO2 POC Potassium POC Chloride Sodium Potassium Chloride Carbon Dioxide POC BUN BUN Creatinine Glucose POC Glucose Calcium Magnesium AST Alkaline Phosphatase Lactate Dehydrogenase Total Creatine Kinase Total Protein Albumin Urine WBC (Auto) Crossmatch See Detail 06/14/16 06/14/16 06/14/16 07:44 10:18 19:09 WBC RBC Hgb POC Hgb Hct POC Hct MCH 26 L MCHC RDW 15.8 H Plt Count Lymph % (Auto) [place] % (Auto) 9.1 H Lymph # [place] # Baso # Seg Neutrophils % Seg Neuts % (Manual) Lymphocytes % (Manual) Monocytes % (Manual) Nucleated RBC % Seg Neutrophils # Seg Neutrophils # Man Lymphocytes # (Manual) Monocytes # (Manual) PT INR APTT Fibrinogen Heparin Anti-Xa Level 0.76 H POC ABG pH POC ABG pCO2 POC ABG pO2 POC Potassium POC Chloride Sodium Potassium Chloride Carbon Dioxide POC BUN BUN Creatinine Glucose POC Glucose 106 H Calcium Magnesium AST Alkaline Phosphatase Lactate Dehydrogenase Total Creatine Kinase Total Protein Albumin Urine WBC (Auto) Crossmatch 06/15/16 06/15/16 06/15/16 04:43 04:43 22:49 WBC RBC Hgb 9.2 L POC Hgb Hct 28.4 L POC Hct MCH MCHC RDW Plt Count Lymph % (Auto) [place] % (Auto) Lymph # [place] # Baso # Seg Neutrophils % Seg Neuts % (Manual) Lymphocytes % (Manual) Monocytes % (Manual) Nucleated RBC % Seg Neutrophils # Seg Neutrophils # Man Lymphocytes # (Manual) Monocytes # (Manual) PT INR APTT Fibrinogen Heparin Anti-Xa Level 0.85 H POC ABG pH POC ABG pCO2 POC ABG pO2 POC Potassium POC Chloride Sodium Potassium Chloride Carbon Dioxide POC BUN BUN Creatinine Glucose POC Glucose 134 H Calcium Magnesium AST Alkaline Phosphatase Lactate Dehydrogenase Total Creatine Kinase Total Protein Albumin Urine WBC (Auto) Crossmatch 06/16/16 06/16/16 06/16/16 08:55 08:55 14:21 WBC RBC Hgb POC Hgb 5.8 L Hct POC Hct 17 L MCH MCHC RDW Plt Count Lymph % (Auto) [place] % (Auto) Lymph # [place] # Baso # Seg Neutrophils % Seg Neuts % (Manual) Lymphocytes % (Manual) Monocytes % (Manual) Nucleated RBC % Seg Neutrophils # Seg Neutrophils # Man Lymphocytes # (Manual) Monocytes # (Manual) PT INR APTT 20.0 L Fibrinogen Heparin Anti-Xa Level POC ABG pH POC ABG pCO2 POC ABG pO2 POC Potassium 2.9 L POC Chloride Sodium Potassium Chloride Carbon Dioxide POC BUN 7 L BUN Creatinine Glucose POC Glucose 249 H Calcium Magnesium AST Alkaline Phosphatase Lactate Dehydrogenase Total Creatine Kinase Total Protein Albumin Urine WBC (Auto) Crossmatch See Detail 06/16/16 06/16/16 06/16/16 16:55 17:41 17:48 WBC RBC Hgb POC Hgb 8.8 L Hct POC Hct 26 L < 15 L MCH MCHC RDW Plt Count Lymph % (Auto) [place] % (Auto) Lymph # [place] # Baso # Seg Neutrophils % Seg Neuts % (Manual) Lymphocytes % (Manual) Monocytes % (Manual) Nucleated RBC % Seg Neutrophils # Seg Neutrophils # Man Lymphocytes # (Manual) Monocytes # (Manual) PT INR APTT Fibrinogen Heparin Anti-Xa Level POC ABG pH 7.031 L POC ABG pCO2 POC ABG pO2 475 H POC Potassium 3.2 L POC Chloride 112 H 114 H Sodium Potassium Chloride Carbon Dioxide POC BUN 7 L 7 L BUN Creatinine Glucose POC Glucose 203 H 291 H Calcium Magnesium AST Alkaline Phosphatase Lactate Dehydrogenase Total Creatine Kinase Total Protein Albumin Urine WBC (Auto) Crossmatch 06/16/16 06/16/16 06/16/16 18:07 19:09 20:10 WBC 15.8 H RBC Hgb POC Hgb 6.5 L Hct POC Hct 19 L MCH MCHC RDW Plt Count 38 L Lymph % (Auto) 5.9 L [place] % (Auto) 9.3 H Lymph # 0.9 L [place] # 1.5 H Baso # Seg Neutrophils % 84.6 H Seg Neuts % (Manual) Lymphocytes % (Manual) Monocytes % (Manual) Nucleated RBC % Seg Neutrophils # 13.3 H Seg Neutrophils # Man Lymphocytes # (Manual) Monocytes # (Manual) PT INR APTT Fibrinogen Heparin Anti-Xa Level POC ABG pH POC ABG pCO2 POC ABG pO2 POC Potassium POC Chloride 113 H Sodium Potassium Chloride Carbon Dioxide POC BUN 7 L BUN Creatinine Glucose POC Glucose 263 H 231 H Calcium Magnesium AST Alkaline Phosphatase Lactate Dehydrogenase Total Creatine Kinase Total Protein Albumin Urine WBC (Auto) Crossmatch 06/16/16 06/16/16 06/16/16 20:10 20:18 21:10 WBC RBC Hgb POC Hgb Hct POC Hct MCH MCHC RDW Plt Count Lymph % (Auto) [place] % (Auto) Lymph # [place] # Baso # Seg Neutrophils % Seg Neuts % (Manual) Lymphocytes % (Manual) Monocytes % (Manual) Nucleated RBC % Seg Neutrophils # Seg Neutrophils # Man Lymphocytes # (Manual) Monocytes # (Manual) PT INR APTT Fibrinogen Heparin Anti-Xa Level POC ABG pH 7.236 L 7.280 L POC ABG pCO2 POC ABG pO2 139 H 145 H POC Potassium POC Chloride Sodium Potassium 3.4 L Chloride 114.5 H Carbon Dioxide 17 L D POC BUN BUN Creatinine Glucose 188 H POC Glucose Calcium 6.1 L D Magnesium AST Alkaline Phosphatase Lactate Dehydrogenase Total Creatine Kinase Total Protein Albumin Urine WBC (Auto) Crossmatch 06/16/16 06/17/16 06/17/16 22:53 04:48 05:35 WBC RBC Hgb POC Hgb Hct POC Hct MCH MCHC RDW Plt Count Lymph % (Auto) [place] % (Auto) Lymph # [place] # Baso # Seg Neutrophils % Seg Neuts % (Manual) Lymphocytes % (Manual) Monocytes % (Manual) Nucleated RBC % Seg Neutrophils # Seg Neutrophils # Man Lymphocytes # (Manual) Monocytes # (Manual) PT INR APTT Fibrinogen Heparin Anti-Xa Level POC ABG pH POC ABG pCO2 33.9 L 22.2 L POC ABG pO2 152 H 154 H POC Potassium POC Chloride Sodium 150 H Potassium 3.4 L Chloride 114.2 H Carbon Dioxide 16 L POC BUN BUN Creatinine Glucose 221 H POC Glucose Calcium 7.6 L D Magnesium AST Alkaline Phosphatase Lactate Dehydrogenase Total Creatine Kinase Total Protein Albumin Urine WBC (Auto) Crossmatch 06/17/16 06/18/16 06/18/16 09:22 07:26 08:25 WBC 20.3 H RBC 3.41 L Hgb 9.9 L POC Hgb Hct 29.7 L POC Hct MCH MCHC RDW Plt Count Lymph % (Auto) [place] % (Auto) Lymph # [place] # Baso # Seg Neutrophils % Seg Neuts % (Manual) 81.0 H Lymphocytes % (Manual) 6.0 L Monocytes % (Manual) 12.0 H Nucleated RBC % Seg Neutrophils # Seg Neutrophils # Man 16.4 H Lymphocytes # (Manual) Monocytes # (Manual) 2.4 H PT INR APTT Fibrinogen Heparin Anti-Xa Level POC ABG pH POC ABG pCO2 POC ABG pO2 POC Potassium POC Chloride Sodium Potassium 3.1 L Chloride Carbon Dioxide POC BUN BUN Creatinine Glucose 136 H POC Glucose 141 H Calcium 7.5 L Magnesium AST Alkaline Phosphatase Lactate Dehydrogenase Total Creatine Kinase Total Protein Albumin Urine WBC (Auto) Crossmatch 06/18/16 06/18/16 06/18/16 08:25 11:09 19:40 WBC RBC Hgb 6.5 L D POC Hgb Hct 19.3 L* D POC Hct MCH MCHC RDW Plt Count 131 L Lymph % (Auto) [place] % (Auto) Lymph # [place] # Baso # Seg Neutrophils % Seg Neuts % (Manual) Lymphocytes % (Manual) Monocytes % (Manual) Nucleated RBC % Seg Neutrophils # Seg Neutrophils # Man Lymphocytes # (Manual) Monocytes # (Manual) PT INR APTT Fibrinogen Heparin Anti-Xa Level POC ABG pH 7.490 H POC ABG pCO2 POC ABG pO2 131 H POC Potassium POC Chloride Sodium Potassium Chloride Carbon Dioxide POC BUN BUN Creatinine Glucose POC Glucose 125 H Calcium Magnesium AST Alkaline Phosphatase Lactate Dehydrogenase Total Creatine Kinase Total Protein Albumin Urine WBC (Auto) Crossmatch 06/18/16 06/19/16 06/19/16 21:10 07:07 07:28 WBC 13.6 H RBC 2.17 L Hgb 6.5 L POC Hgb Hct 18.8 L* POC Hct MCH MCHC 35 H RDW Plt Count 131 L Lymph % (Auto) 10.1 L [place] % (Auto) 9.3 H Lymph # [place] # 1.3 H Baso # Seg Neutrophils % 79.7 H Seg Neuts % (Manual) Lymphocytes % (Manual) Monocytes % (Manual) Nucleated RBC % Seg Neutrophils # 10.8 H Seg Neutrophils # Man Lymphocytes # (Manual) Monocytes # (Manual) PT INR APTT Fibrinogen Heparin Anti-Xa Level 0.75 H POC ABG pH POC ABG pCO2 POC ABG pO2 POC Potassium POC Chloride Sodium Potassium 3.5 L Chloride Carbon Dioxide POC BUN BUN Creatinine Glucose 104 H POC Glucose Calcium 7.6 L Magnesium 1.4 L AST Alkaline Phosphatase Lactate Dehydrogenase Total Creatine Kinase Total Protein Albumin Urine WBC (Auto) Crossmatch 06/20/16 06/20/16 06/20/16 04:15 18:15 18:15 WBC 16.6 H RBC 1.19 L Hgb 9.2 L 3.5 L* D POC Hgb Hct 27.5 L D 11.0 L* D POC Hct MCH MCHC RDW Plt Count 138 L Lymph % (Auto) [place] % (Auto) Lymph # [place] # Baso # Seg Neutrophils % Seg Neuts % (Manual) Lymphocytes % (Manual) Monocytes % (Manual) Nucleated RBC % Seg Neutrophils # Seg Neutrophils # Man Lymphocytes # (Manual) Monocytes # (Manual) PT INR APTT Fibrinogen Heparin Anti-Xa Level POC ABG pH POC ABG pCO2 POC ABG pO2 POC Potassium POC Chloride Sodium 146 H Potassium Chloride Carbon Dioxide 14 L D POC BUN BUN Creatinine Glucose 31 L* POC Glucose Calcium 6.7 L Magnesium AST Alkaline Phosphatase Lactate Dehydrogenase Total Creatine Kinase Total Protein Albumin Urine WBC (Auto) Crossmatch 06/20/16 06/20/16 06/20/16 18:15 19:33 19:36 WBC RBC Hgb POC Hgb Hct POC Hct MCH MCHC RDW Plt Count Lymph % (Auto) [place] % (Auto) Lymph # [place] # Baso # Seg Neutrophils % Seg Neuts % (Manual) Lymphocytes % (Manual) Monocytes % (Manual) Nucleated RBC % Seg Neutrophils # Seg Neutrophils # Man Lymphocytes # (Manual) Monocytes # (Manual) PT INR APTT Fibrinogen Heparin Anti-Xa Level POC ABG pH POC ABG pCO2 26.3 L POC ABG pO2 394 H POC Potassium POC Chloride Sodium Potassium Chloride Carbon Dioxide POC BUN BUN Creatinine Glucose POC Glucose 212 H Calcium Magnesium AST Alkaline Phosphatase Lactate Dehydrogenase Total Creatine Kinase Total Protein Albumin Urine WBC (Auto) Crossmatch See Detail 06/20/16 06/20/16 06/21/16 22:01 23:00 00:35 WBC RBC Hgb POC Hgb Hct POC Hct MCH MCHC RDW Plt Count Lymph % (Auto) [place] % (Auto) Lymph # [place] # Baso # Seg Neutrophils % Seg Neuts % (Manual) Lymphocytes % (Manual) Monocytes % (Manual) Nucleated RBC % Seg Neutrophils # Seg Neutrophils # Man Lymphocytes # (Manual) Monocytes # (Manual) PT 21.3 H INR 1.85 H APTT 48.4 H Fibrinogen Heparin Anti-Xa Level POC ABG pH POC ABG pCO2 POC ABG pO2 POC Potassium POC Chloride Sodium Potassium Chloride Carbon Dioxide POC BUN BUN Creatinine Glucose POC Glucose 149 H 147 H Calcium Magnesium AST Alkaline Phosphatase Lactate Dehydrogenase Total Creatine Kinase Total Protein Albumin Urine WBC (Auto) Crossmatch 06/21/16 06/21/16 06/21/16 04:30 04:30 06:01 WBC 21.7 H RBC 3.58 L Hgb POC Hgb Hct POC Hct MCH MCHC 35 H RDW Plt Count 116 L Lymph % (Auto) [place] % (Auto) Lymph # [place] # Baso # Seg Neutrophils % Seg Neuts % (Manual) Lymphocytes % (Manual) 8.0 L Monocytes % (Manual) Nucleated RBC % 3.0 H Seg Neutrophils # Seg Neutrophils # Man 13.7 H Lymphocytes # (Manual) Monocytes # (Manual) 1.5 H PT INR APTT Fibrinogen Heparin Anti-Xa Level POC ABG pH 7.541 H POC ABG pCO2 21.1 L POC ABG pO2 108 H POC Potassium POC Chloride Sodium Potassium 3.0 L Chloride 110.3 H Carbon Dioxide 18 L POC BUN BUN 18 H Creatinine Glucose 141 H POC Glucose Calcium 6.4 L Magnesium AST Alkaline Phosphatase Lactate Dehydrogenase Total Creatine Kinase Total Protein Albumin Urine WBC (Auto) Crossmatch 06/21/16 06/21/16 06/21/16 07:00 10:02 17:51 WBC RBC Hgb 8.3 L POC Hgb Hct 24.7 L D POC Hct MCH MCHC RDW Plt Count Lymph % (Auto) [place] % (Auto) Lymph # [place] # Baso # Seg Neutrophils % Seg Neuts % (Manual) Lymphocytes % (Manual) Monocytes % (Manual) Nucleated RBC % Seg Neutrophils # Seg Neutrophils # Man Lymphocytes # (Manual) Monocytes # (Manual) PT INR APTT Fibrinogen Heparin Anti-Xa Level POC ABG pH POC ABG pCO2 POC ABG pO2 POC Potassium POC Chloride Sodium Potassium Chloride Carbon Dioxide POC BUN BUN Creatinine Glucose POC Glucose 132 H 106 H Calcium Magnesium AST Alkaline Phosphatase Lactate Dehydrogenase Total Creatine Kinase Total Protein Albumin Urine WBC (Auto) Crossmatch 06/22/16 06/22/16 06/22/16 05:00 05:00 06:40 WBC 20.6 H RBC 3.54 L Hgb POC Hgb Hct POC Hct MCH MCHC RDW Plt Count 129 L Lymph % (Auto) [place] % (Auto) Lymph # [place] # Baso # Seg Neutrophils % Seg Neuts % (Manual) 87.0 H Lymphocytes % (Manual) 4.0 L Monocytes % (Manual) Nucleated RBC % 4.0 H Seg Neutrophils # Seg Neutrophils # Man 17.9 H Lymphocytes # (Manual) 0.8 L Monocytes # (Manual) 1.2 H PT INR APTT Fibrinogen Heparin Anti-Xa Level POC ABG pH POC ABG pCO2 21.9 L POC ABG pO2 118 H POC Potassium POC Chloride Sodium Potassium Chloride 109.9 H Carbon Dioxide 15 L POC BUN BUN 26 H Creatinine 2.2 H D Glucose POC Glucose Calcium 6.3 L Magnesium AST Alkaline Phosphatase Lactate Dehydrogenase Total Creatine Kinase Total Protein Albumin Urine WBC (Auto) Crossmatch 06/22/16 06/22/16 06/22/16 09:15 09:15 23:17 WBC RBC Hgb 9.1 L POC Hgb Hct 26.9 L POC Hct MCH MCHC RDW Plt Count 116 L Lymph % (Auto) [place] % (Auto) Lymph # [place] # Baso # Seg Neutrophils % Seg Neuts % (Manual) Lymphocytes % (Manual) Monocytes % (Manual) Nucleated RBC % Seg Neutrophils # Seg Neutrophils # Man Lymphocytes # (Manual) Monocytes # (Manual) PT 15.8 H INR 1.27 H APTT Fibrinogen Heparin Anti-Xa Level POC ABG pH POC ABG pCO2 POC ABG pO2 POC Potassium POC Chloride Sodium Potassium Chloride Carbon Dioxide POC BUN BUN Creatinine Glucose POC Glucose 134 H Calcium Magnesium AST Alkaline Phosphatase Lactate Dehydrogenase Total Creatine Kinase Total Protein Albumin Urine WBC (Auto) Crossmatch 06/23/16 06/23/16 06/23/16 05:43 05:43 09:44 WBC 13.8 H RBC 2.70 L Hgb 8.1 L POC Hgb Hct 24.2 L POC Hct MCH MCHC RDW Plt Count 93 L Lymph % (Auto) 6.2 L [place] % (Auto) Lymph # 0.9 L [place] # Baso # Seg Neutrophils % 89.2 H Seg Neuts % (Manual) Lymphocytes % (Manual) Monocytes % (Manual) Nucleated RBC % Seg Neutrophils # 12.3 H Seg Neutrophils # Man Lymphocytes # (Manual) Monocytes # (Manual) PT INR APTT Fibrinogen Heparin Anti-Xa Level POC ABG pH 7.593 H POC ABG pCO2 26.8 L POC ABG pO2 141 H POC Potassium POC Chloride Sodium 146 H Potassium Chloride Carbon Dioxide POC BUN BUN 32 H Creatinine 2.6 H Glucose 142 H POC Glucose Calcium 7.0 L Magnesium AST Alkaline Phosphatase Lactate Dehydrogenase Total Creatine Kinase Total Protein Albumin Urine WBC (Auto) Crossmatch 06/23/16 06/23/16 06/23/16 11:23 17:42 23:32 WBC RBC Hgb POC Hgb Hct POC Hct MCH MCHC RDW Plt Count Lymph % (Auto) [place] % (Auto) Lymph # [place] # Baso # Seg Neutrophils % Seg Neuts % (Manual) Lymphocytes % (Manual) Monocytes % (Manual) Nucleated RBC % Seg Neutrophils # Seg Neutrophils # Man Lymphocytes # (Manual) Monocytes # (Manual) PT INR APTT Fibrinogen Heparin Anti-Xa Level POC ABG pH POC ABG pCO2 POC ABG pO2 POC Potassium POC Chloride Sodium Potassium Chloride Carbon Dioxide POC BUN BUN Creatinine Glucose POC Glucose 138 H 133 H 111 H Calcium Magnesium AST Alkaline Phosphatase Lactate Dehydrogenase Total Creatine Kinase Total Protein Albumin Urine WBC (Auto) Crossmatch 06/24/16 06/24/16 06/24/16 06:27 08:10 08:10 WBC 16.6 H RBC 2.91 L Hgb 8.9 L POC Hgb Hct 26.4 L POC Hct MCH MCHC RDW 15.6 H Plt Count 115 L Lymph % (Auto) 4.6 L [place] % (Auto) Lymph # 0.8 L [place] # 1.0 H Baso # Seg Neutrophils % 89.2 H Seg Neuts % (Manual) Lymphocytes % (Manual) Monocytes % (Manual) Nucleated RBC % Seg Neutrophils # 14.9 H Seg Neutrophils # Man Lymphocytes # (Manual) Monocytes # (Manual) PT INR APTT Fibrinogen Heparin Anti-Xa Level POC ABG pH POC ABG pCO2 POC ABG pO2 POC Potassium POC Chloride Sodium 146 H Potassium Chloride Carbon Dioxide POC BUN BUN 37 H Creatinine 2.9 H Glucose POC Glucose 109 H Calcium 7.5 L Magnesium AST Alkaline Phosphatase Lactate Dehydrogenase Total Creatine Kinase Total Protein Albumin Urine WBC (Auto) Crossmatch 06/24/16 06/24/16 06/24/16 12:05 17:57 22:13 WBC RBC Hgb POC Hgb Hct POC Hct MCH MCHC RDW Plt Count Lymph % (Auto) [place] % (Auto) Lymph # [place] # Baso # Seg Neutrophils % Seg Neuts % (Manual) Lymphocytes % (Manual) Monocytes % (Manual) Nucleated RBC % Seg Neutrophils # Seg Neutrophils # Man Lymphocytes # (Manual) Monocytes # (Manual) PT INR APTT Fibrinogen Heparin Anti-Xa Level POC ABG pH POC ABG pCO2 POC ABG pO2 POC Potassium POC Chloride Sodium Potassium Chloride Carbon Dioxide POC BUN BUN Creatinine Glucose POC Glucose 117 H 124 H 116 H Calcium Magnesium AST Alkaline Phosphatase Lactate Dehydrogenase Total Creatine Kinase Total Protein Albumin Urine WBC (Auto) Crossmatch 06/25/16 06/25/16 06/25/16 06:42 06:49 12:14 WBC RBC Hgb POC Hgb Hct POC Hct MCH MCHC RDW Plt Count Lymph % (Auto) [place] % (Auto) Lymph # [place] # Baso # Seg Neutrophils % Seg Neuts % (Manual) Lymphocytes % (Manual) Monocytes % (Manual) Nucleated RBC % Seg Neutrophils # Seg Neutrophils # Man Lymphocytes # (Manual) Monocytes # (Manual) PT INR APTT Fibrinogen Heparin Anti-Xa Level POC ABG pH POC ABG pCO2 POC ABG pO2 POC Potassium POC Chloride Sodium Potassium Chloride Carbon Dioxide POC BUN BUN 46 H Creatinine 3.6 H Glucose 133 H POC Glucose 137 H 136 H Calcium 7.4 L Magnesium AST Alkaline Phosphatase Lactate Dehydrogenase Total Creatine Kinase Total Protein Albumin Urine WBC (Auto) Crossmatch 06/25/16 06/25/16 06/26/16 16:07 21:32 05:55 WBC RBC Hgb POC Hgb Hct POC Hct MCH MCHC RDW Plt Count Lymph % (Auto) [place] % (Auto) Lymph # [place] # Baso # Seg Neutrophils % Seg Neuts % (Manual) Lymphocytes % (Manual) Monocytes % (Manual) Nucleated RBC % Seg Neutrophils # Seg Neutrophils # Man Lymphocytes # (Manual) Monocytes # (Manual) PT INR APTT Fibrinogen Heparin Anti-Xa Level POC ABG pH POC ABG pCO2 POC ABG pO2 POC Potassium POC Chloride Sodium Potassium Chloride Carbon Dioxide 20 L POC BUN BUN 55 H Creatinine 4.2 H Glucose 120 H POC Glucose 146 H 146 H Calcium 7.5 L Magnesium AST Alkaline Phosphatase Lactate Dehydrogenase Total Creatine Kinase Total Protein Albumin Urine WBC (Auto) Crossmatch 06/26/16 06/26/16 06/26/16 06:30 11:38 16:45 WBC RBC Hgb POC Hgb Hct POC Hct MCH MCHC RDW Plt Count Lymph % (Auto) [place] % (Auto) Lymph # [place] # Baso # Seg Neutrophils % Seg Neuts % (Manual) Lymphocytes % (Manual) Monocytes % (Manual) Nucleated RBC % Seg Neutrophils # Seg Neutrophils # Man Lymphocytes # (Manual) Monocytes # (Manual) PT INR APTT Fibrinogen Heparin Anti-Xa Level POC ABG pH POC ABG pCO2 POC ABG pO2 POC Potassium POC Chloride Sodium Potassium Chloride Carbon Dioxide POC BUN BUN Creatinine Glucose POC Glucose 128 H 143 H 121 H Calcium Magnesium AST Alkaline Phosphatase Lactate Dehydrogenase Total Creatine Kinase Total Protein Albumin Urine WBC (Auto) Crossmatch 06/26/16 06/26/16 06/27/16 22:57 22:57 00:47 WBC RBC Hgb 8.4 L POC Hgb Hct 25.1 L POC Hct MCH MCHC RDW Plt Count Lymph % (Auto) [place] % (Auto) Lymph # [place] # Baso # Seg Neutrophils % Seg Neuts % (Manual) Lymphocytes % (Manual) Monocytes % (Manual) Nucleated RBC % Seg Neutrophils # Seg Neutrophils # Man Lymphocytes # (Manual) Monocytes # (Manual) PT 19.9 H INR 1.69 H APTT Fibrinogen Heparin Anti-Xa Level POC ABG pH POC ABG pCO2 POC ABG pO2 POC Potassium POC Chloride Sodium Potassium Chloride Carbon Dioxide POC BUN BUN Creatinine Glucose POC Glucose 110 H Calcium Magnesium AST Alkaline Phosphatase Lactate Dehydrogenase Total Creatine Kinase Total Protein Albumin Urine WBC (Auto) Crossmatch 06/27/16 06/27/16 06/27/16 05:43 05:43 06:40 WBC RBC Hgb POC Hgb Hct POC Hct MCH MCHC RDW Plt Count Lymph % (Auto) [place] % (Auto) Lymph # [place] # Baso # Seg Neutrophils % Seg Neuts % (Manual) Lymphocytes % (Manual) Monocytes % (Manual) Nucleated RBC % Seg Neutrophils # Seg Neutrophils # Man Lymphocytes # (Manual) Monocytes # (Manual) PT INR APTT Fibrinogen Heparin Anti-Xa Level 2.00 H POC ABG pH POC ABG pCO2 POC ABG pO2 POC Potassium POC Chloride Sodium Potassium Chloride Carbon Dioxide 20 L POC BUN BUN 58 H Creatinine 4.8 H Glucose POC Glucose 109 H Calcium 8.1 L Magnesium AST Alkaline Phosphatase Lactate Dehydrogenase Total Creatine Kinase Total Protein Albumin Urine WBC (Auto) Crossmatch 06/27/16 06/27/16 06/27/16 08:15 16:46 17:47 WBC RBC Hgb POC Hgb Hct POC Hct MCH MCHC RDW Plt Count Lymph % (Auto) [place] % (Auto) Lymph # [place] # Baso # Seg Neutrophils % Seg Neuts % (Manual) Lymphocytes % (Manual) Monocytes % (Manual) Nucleated RBC % Seg Neutrophils # Seg Neutrophils # Man Lymphocytes # (Manual) Monocytes # (Manual) PT INR APTT Fibrinogen Heparin Anti-Xa Level > 2.00 H 1.87 H POC ABG pH POC ABG pCO2 POC ABG pO2 POC Potassium POC Chloride Sodium Potassium Chloride Carbon Dioxide POC BUN BUN Creatinine Glucose POC Glucose 231 H Calcium Magnesium AST Alkaline Phosphatase Lactate Dehydrogenase Total Creatine Kinase Total Protein Albumin Urine WBC (Auto) Crossmatch 06/27/16 06/27/16 06/28/16 21:23 23:54 06:27 WBC RBC Hgb POC Hgb Hct POC Hct MCH MCHC RDW Plt Count Lymph % (Auto) [place] % (Auto) Lymph # [place] # Baso # Seg Neutrophils % Seg Neuts % (Manual) Lymphocytes % (Manual) Monocytes % (Manual) Nucleated RBC % Seg Neutrophils # Seg Neutrophils # Man Lymphocytes # (Manual) Monocytes # (Manual) PT INR APTT Fibrinogen Heparin Anti-Xa Level 1.70 H POC ABG pH POC ABG pCO2 POC ABG pO2 POC Potassium POC Chloride Sodium Potassium Chloride Carbon Dioxide POC BUN BUN 62 H Creatinine 4.5 H Glucose 111 H POC Glucose 122 H Calcium 8.3 L Magnesium AST Alkaline Phosphatase Lactate Dehydrogenase Total Creatine Kinase Total Protein Albumin Urine WBC (Auto) Crossmatch 06/28/16 06/28/16 06/28/16 06:27 11:47 14:14 WBC RBC Hgb 7.7 L POC Hgb Hct 22.9 L POC Hct MCH MCHC RDW Plt Count Lymph % (Auto) [place] % (Auto) Lymph # [place] # Baso # Seg Neutrophils % Seg Neuts % (Manual) Lymphocytes % (Manual) Monocytes % (Manual) Nucleated RBC % Seg Neutrophils # Seg Neutrophils # Man Lymphocytes # (Manual) Monocytes # (Manual) PT INR APTT Fibrinogen Heparin Anti-Xa Level POC ABG pH 7.461 H POC ABG pCO2 31.9 L POC ABG pO2 73 L POC Potassium POC Chloride Sodium Potassium Chloride Carbon Dioxide POC BUN BUN Creatinine Glucose POC Glucose 155 H Calcium Magnesium AST Alkaline Phosphatase Lactate Dehydrogenase Total Creatine Kinase Total Protein Albumin Urine WBC (Auto) Crossmatch 06/28/16 06/28/16 06/28/16 16:27 20:47 22:59 WBC RBC Hgb POC Hgb Hct POC Hct MCH MCHC RDW Plt Count Lymph % (Auto) [place] % (Auto) Lymph # [place] # Baso # Seg Neutrophils % Seg Neuts % (Manual) Lymphocytes % (Manual) Monocytes % (Manual) Nucleated RBC % Seg Neutrophils # Seg Neutrophils # Man Lymphocytes # (Manual) Monocytes # (Manual) PT INR APTT Fibrinogen Heparin Anti-Xa Level 1.16 H POC ABG pH POC ABG pCO2 POC ABG pO2 POC Potassium POC Chloride Sodium Potassium Chloride Carbon Dioxide POC BUN BUN Creatinine Glucose POC Glucose 193 H 126 H Calcium Magnesium AST Alkaline Phosphatase Lactate Dehydrogenase Total Creatine Kinase Total Protein Albumin Urine WBC (Auto) Crossmatch 06/29/16 06/29/16 06/29/16 05:51 09:10 09:10 WBC RBC Hgb POC Hgb Hct POC Hct MCH MCHC RDW Plt Count Lymph % (Auto) [place] % (Auto) Lymph # [place] # Baso # Seg Neutrophils % Seg Neuts % (Manual) Lymphocytes % (Manual) Monocytes % (Manual) Nucleated RBC % Seg Neutrophils # Seg Neutrophils # Man Lymphocytes # (Manual) Monocytes # (Manual) PT INR APTT Fibrinogen Heparin Anti-Xa Level 0.92 H POC ABG pH POC ABG pCO2 POC ABG pO2 POC Potassium POC Chloride Sodium Potassium Chloride Carbon Dioxide POC BUN BUN 53 H Creatinine 3.7 H Glucose 139 H POC Glucose 121 H Calcium 8.2 L Magnesium AST Alkaline Phosphatase Lactate Dehydrogenase Total Creatine Kinase Total Protein Albumin Urine WBC (Auto) Crossmatch 06/29/16 06/30/16 06/30/16 21:22 05:09 08:07 WBC RBC Hgb 7.3 L POC Hgb Hct 21.9 L POC Hct MCH MCHC RDW Plt Count Lymph % (Auto) [place] % (Auto) Lymph # [place] # Baso # Seg Neutrophils % Seg Neuts % (Manual) Lymphocytes % (Manual) Monocytes % (Manual) Nucleated RBC % Seg Neutrophils # Seg Neutrophils # Man Lymphocytes # (Manual) Monocytes # (Manual) PT INR APTT Fibrinogen Heparin Anti-Xa Level POC ABG pH POC ABG pCO2 POC ABG pO2 POC Potassium POC Chloride Sodium Potassium Chloride Carbon Dioxide POC BUN BUN Creatinine Glucose POC Glucose 108 H 106 H Calcium Magnesium AST Alkaline Phosphatase Lactate Dehydrogenase Total Creatine Kinase Total Protein Albumin Urine WBC (Auto) Crossmatch 06/30/16 06/30/16 06/30/16 10:48 12:13 16:48 WBC RBC Hgb POC Hgb Hct POC Hct MCH MCHC RDW Plt Count Lymph % (Auto) [place] % (Auto) Lymph # [place] # Baso # Seg Neutrophils % Seg Neuts % (Manual) Lymphocytes % (Manual) Monocytes % (Manual) Nucleated RBC % Seg Neutrophils # Seg Neutrophils # Man Lymphocytes # (Manual) Monocytes # (Manual) PT INR APTT Fibrinogen Heparin Anti-Xa Level POC ABG pH POC ABG pCO2 POC ABG pO2 POC Potassium POC Chloride Sodium Potassium Chloride Carbon Dioxide POC BUN BUN 46 H Creatinine 3.0 H Glucose POC Glucose 153 H 152 H Calcium Magnesium AST Alkaline Phosphatase Lactate Dehydrogenase Total Creatine Kinase Total Protein Albumin Urine WBC (Auto) Crossmatch 06/30/16 07/01/16 07/01/16 21:47 05:47 07:44 WBC 19.8 H RBC 2.45 L Hgb 7.2 L POC Hgb Hct 22.2 L POC Hct MCH MCHC RDW Plt Count 481 H Lymph % (Auto) 5.5 L [place] % (Auto) Lymph # 1.1 L [place] # 1.4 H Baso # Seg Neutrophils % 86.8 H Seg Neuts % (Manual) Lymphocytes % (Manual) Monocytes % (Manual) Nucleated RBC % Seg Neutrophils # 17.1 H Seg Neutrophils # Man Lymphocytes # (Manual) Monocytes # (Manual) PT INR APTT Fibrinogen Heparin Anti-Xa Level POC ABG pH POC ABG pCO2 POC ABG pO2 POC Potassium POC Chloride Sodium Potassium Chloride Carbon Dioxide POC BUN BUN Creatinine Glucose POC Glucose 162 H 124 H Calcium Magnesium AST Alkaline Phosphatase Lactate Dehydrogenase Total Creatine Kinase Total Protein Albumin Urine WBC (Auto) Crossmatch 07/01/16 07/01/1616 07:44 11:55 16:16 WBC RBC Hgb POC Hgb Hct POC Hct MCH MCHC RDW Plt Count Lymph % (Auto) [place] % (Auto) Lymph # [place] # Baso # Seg Neutrophils % Seg Neuts % (Manual) Lymphocytes % (Manual) Monocytes % (Manual) Nucleated RBC % Seg Neutrophils # Seg Neutrophils # Man Lymphocytes # (Manual) Monocytes # (Manual) PT INR APTT Fibrinogen Heparin Anti-Xa Level POC ABG pH POC ABG pCO2 POC ABG pO2 POC Potassium POC Chloride Sodium Potassium 3.1 L Chloride Carbon Dioxide POC BUN BUN 38 H Creatinine 2.2 H Glucose 114 H POC Glucose 114 H 143 H Calcium Magnesium AST Alkaline Phosphatase Lactate Dehydrogenase Total Creatine Kinase Total Protein Albumin Urine WBC (Auto) Crossmatch 07/01/16 07/02/16 07/02/16 21:42 05:40 06:46 WBC 18.1 H RBC 2.45 L Hgb 7.3 L POC Hgb Hct 21.8 L POC Hct MCH MCHC RDW Plt Count 490 H Lymph % (Auto) 6.1 L [place] % (Auto) Lymph # 1.1 L [place] # 1.1 H Baso # 0.2 H Seg Neutrophils % 86.0 H Seg Neuts % (Manual) Lymphocytes % (Manual) Monocytes % (Manual) Nucleated RBC % Seg Neutrophils # 15.6 H Seg Neutrophils # Man Lymphocytes # (Manual) Monocytes # (Manual) PT INR APTT Fibrinogen Heparin Anti-Xa Level POC ABG pH POC ABG pCO2 POC ABG pO2 POC Potassium POC Chloride Sodium Potassium Chloride Carbon Dioxide POC BUN BUN Creatinine Glucose POC Glucose 135 H 135 H Calcium Magnesium AST Alkaline Phosphatase Lactate Dehydrogenase Total Creatine Kinase Total Protein Albumin Urine WBC (Auto) Crossmatch 07/02/16 07/02/16 07/02/16 06:46 06:49 11:23 WBC RBC Hgb POC Hgb Hct POC Hct MCH MCHC RDW Plt Count Lymph % (Auto) [place] % (Auto) Lymph # [place] # Baso # Seg Neutrophils % Seg Neuts % (Manual) Lymphocytes % (Manual) Monocytes % (Manual) Nucleated RBC % Seg Neutrophils # Seg Neutrophils # Man Lymphocytes # (Manual) Monocytes # (Manual) PT INR APTT Fibrinogen Heparin Anti-Xa Level POC ABG pH POC ABG pCO2 POC ABG pO2 POC Potassium POC Chloride Sodium Potassium 2.8 L* Chloride Carbon Dioxide POC BUN BUN 30 H Creatinine 1.8 H Glucose 121 H POC Glucose 121 H Calcium 8.1 L Magnesium 1.3 L AST Alkaline Phosphatase Lactate Dehydrogenase Total Creatine Kinase Total Protein Albumin Urine WBC (Auto) Crossmatch 07/02/16 07/02/16 07/03/16 17:02 21:31 05:35 WBC RBC Hgb POC Hgb Hct POC Hct MCH MCHC RDW Plt Count Lymph % (Auto) [place] % (Auto) Lymph # [place] # Baso # Seg Neutrophils % Seg Neuts % (Manual) Lymphocytes % (Manual) Monocytes % (Manual) Nucleated RBC % Seg Neutrophils # Seg Neutrophils # Man Lymphocytes # (Manual) Monocytes # (Manual) PT INR APTT Fibrinogen Heparin Anti-Xa Level POC ABG pH POC ABG pCO2 POC ABG pO2 POC Potassium POC Chloride Sodium Potassium Chloride Carbon Dioxide POC BUN BUN Creatinine Glucose POC Glucose 121 H 159 H 149 H Calcium Magnesium AST Alkaline Phosphatase Lactate Dehydrogenase Total Creatine Kinase Total Protein Albumin Urine WBC (Auto) Crossmatch 07/03/16 07/03/16 07/03/16 06:45 06:45 06:45 WBC 16.8 H RBC 2.21 L Hgb 6.5 L POC Hgb Hct 19.4 L* POC Hct MCH MCHC RDW Plt Count 503 H Lymph % (Auto) 6.4 L [place] % (Auto) Lymph # 1.1 L [place] # 1.1 H Baso # Seg Neutrophils % 85.6 H Seg Neuts % (Manual) Lymphocytes % (Manual) Monocytes % (Manual) Nucleated RBC % Seg Neutrophils # 14.4 H Seg Neutrophils # Man Lymphocytes # (Manual) Monocytes # (Manual) PT INR APTT Fibrinogen Heparin Anti-Xa Level POC ABG pH POC ABG pCO2 POC ABG pO2 POC Potassium POC Chloride Sodium Potassium 2.9 L* Chloride Carbon Dioxide POC BUN BUN 21 H Creatinine 1.6 H Glucose 126 H POC Glucose Calcium 8.0 L Magnesium 1.6 L AST Alkaline Phosphatase Lactate Dehydrogenase Total Creatine Kinase Total Protein Albumin Urine WBC (Auto) Crossmatch 07/03/16 07/03/16 07/03/16 12:54 19:00 20:01 WBC RBC Hgb POC Hgb Hct POC Hct MCH MCHC RDW Plt Count Lymph % (Auto) [place] % (Auto) Lymph # [place] # Baso # Seg Neutrophils % Seg Neuts % (Manual) Lymphocytes % (Manual) Monocytes % (Manual) Nucleated RBC % Seg Neutrophils # Seg Neutrophils # Man Lymphocytes # (Manual) Monocytes # (Manual) PT INR APTT Fibrinogen Heparin Anti-Xa Level POC ABG pH 7.302 L POC ABG pCO2 49.8 H POC ABG pO2 422 H POC Potassium POC Chloride Sodium Potassium Chloride Carbon Dioxide POC BUN BUN Creatinine Glucose POC Glucose 129 H Calcium Magnesium AST Alkaline Phosphatase Lactate Dehydrogenase Total Creatine Kinase Total Protein Albumin Urine WBC (Auto) Crossmatch See Detail 07/03/16 07/04/16 07/04/16 23:09 04:30 04:30 WBC 19.6 H RBC 3.21 L Hgb 9.4 L POC Hgb Hct 28.2 L POC Hct MCH MCHC RDW Plt Count Lymph % (Auto) 6.5 L [place] % (Auto) Lymph # [place] # 1.2 H Baso # Seg Neutrophils % 86.4 H Seg Neuts % (Manual) Lymphocytes % (Manual) Monocytes % (Manual) Nucleated RBC % Seg Neutrophils # 16.9 H Seg Neutrophils # Man Lymphocytes # (Manual) Monocytes # (Manual) PT INR APTT Fibrinogen Heparin Anti-Xa Level POC ABG pH POC ABG pCO2 POC ABG pO2 POC Potassium POC Chloride Sodium Potassium 3.5 L D Chloride 111.2 H Carbon Dioxide 20 L POC BUN BUN 18 H Creatinine Glucose POC Glucose 111 H Calcium 7.0 L Magnesium AST Alkaline Phosphatase Lactate Dehydrogenase Total Creatine Kinase Total Protein Albumin Urine WBC (Auto) Crossmatch 07/04/16 07/04/16 07/04/16 05:44 12:50 14:33 WBC RBC Hgb POC Hgb Hct POC Hct MCH MCHC RDW Plt Count Lymph % (Auto) [place] % (Auto) Lymph # [place] # Baso # Seg Neutrophils % Seg Neuts % (Manual) Lymphocytes % (Manual) Monocytes % (Manual) Nucleated RBC % Seg Neutrophils # Seg Neutrophils # Man Lymphocytes # (Manual) Monocytes # (Manual) PT INR APTT Fibrinogen Heparin Anti-Xa Level POC ABG pH 7.465 H 7.468 H POC ABG pCO2 29.5 L 29.1 L 33.1 L POC ABG pO2 110 H 39 L POC Potassium POC Chloride Sodium Potassium Chloride Carbon Dioxide POC BUN BUN Creatinine Glucose POC Glucose Calcium Magnesium AST Alkaline Phosphatase Lactate Dehydrogenase Total Creatine Kinase Total Protein Albumin Urine WBC (Auto) Crossmatch 07/04/16 07/05/16 07/05/16 16:49 00:20 04:19 WBC 16.2 H RBC 3.44 L Hgb POC Hgb Hct POC Hct MCH MCHC RDW Plt Count Lymph % (Auto) 5.2 L [place] % (Auto) 7.5 H Lymph # 0.8 L [place] # 1.2 H Baso # Seg Neutrophils % 86.5 H Seg Neuts % (Manual) Lymphocytes % (Manual) Monocytes % (Manual) Nucleated RBC % Seg Neutrophils # 14.0 H Seg Neutrophils # Man Lymphocytes # (Manual) Monocytes # (Manual) PT INR APTT Fibrinogen Heparin Anti-Xa Level POC ABG pH POC ABG pCO2 31.1 L POC ABG pO2 110 H POC Potassium POC Chloride Sodium Potassium Chloride Carbon Dioxide POC BUN BUN Creatinine Glucose POC Glucose 168 H Calcium Magnesium AST Alkaline Phosphatase Lactate Dehydrogenase Total Creatine Kinase Total Protein Albumin Urine WBC (Auto) Crossmatch 07/05/16 07/05/16 07/05/16 04:19 06:01 09:54 WBC RBC Hgb POC Hgb Hct POC Hct MCH MCHC RDW Plt Count Lymph % (Auto) [place] % (Auto) Lymph # [place] # Baso # Seg Neutrophils % Seg Neuts % (Manual) Lymphocytes % (Manual) Monocytes % (Manual) Nucleated RBC % Seg Neutrophils # Seg Neutrophils # Man Lymphocytes # (Manual) Monocytes # (Manual) PT INR APTT Fibrinogen Heparin Anti-Xa Level POC ABG pH POC ABG pCO2 POC ABG pO2 POC Potassium POC Chloride Sodium 146 H Potassium 3.5 L Chloride 109.1 H Carbon Dioxide POC BUN BUN Creatinine Glucose 135 H POC Glucose 146 H 284 H Calcium 7.8 L Magnesium AST Alkaline Phosphatase Lactate Dehydrogenase Total Creatine Kinase Total Protein Albumin Urine WBC (Auto) Crossmatch 07/05/16 07/06/16 07/06/16 13:35 04:40 04:40 WBC 17.7 H RBC 3.32 L Hgb 9.8 L POC Hgb Hct 29.8 L POC Hct MCH MCHC RDW Plt Count Lymph % (Auto) [place] % (Auto) Lymph # [place] # Baso # Seg Neutrophils % Seg Neuts % (Manual) 85.0 H Lymphocytes % (Manual) 4.0 L Monocytes % (Manual) 10.0 H Nucleated RBC % Seg Neutrophils # Seg Neutrophils # Man 15.0 H Lymphocytes # (Manual) 0.7 L Monocytes # (Manual) 1.8 H PT INR APTT Fibrinogen Heparin Anti-Xa Level POC ABG pH POC ABG pCO2 POC ABG pO2 POC Potassium POC Chloride Sodium Potassium 3.5 L Chloride Carbon Dioxide 21 L POC BUN BUN Creatinine Glucose 108 H POC Glucose 130 H Calcium 7.8 L Magnesium AST Alkaline Phosphatase Lactate Dehydrogenase Total Creatine Kinase Total Protein Albumin Urine WBC (Auto) Crossmatch 07/06/16 07/06/16 07/06/16 07:46 11:49 15:31 WBC RBC Hgb POC Hgb Hct POC Hct MCH MCHC RDW Plt Count Lymph % (Auto) [place] % (Auto) Lymph # [place] # Baso # Seg Neutrophils % Seg Neuts % (Manual) Lymphocytes % (Manual) Monocytes % (Manual) Nucleated RBC % Seg Neutrophils # Seg Neutrophils # Man Lymphocytes # (Manual) Monocytes # (Manual) PT INR APTT Fibrinogen Heparin Anti-Xa Level POC ABG pH POC ABG pCO2 POC ABG pO2 POC Potassium POC Chloride Sodium Potassium Chloride Carbon Dioxide POC BUN BUN Creatinine Glucose POC Glucose 149 H 146 H 135 H Calcium Magnesium AST Alkaline Phosphatase Lactate Dehydrogenase Total Creatine Kinase Total Protein Albumin Urine WBC (Auto) Crossmatch 07/06/16 07/06/16 07/07/16 17:17 20:59 04:53 WBC 15.5 H RBC 3.55 L Hgb POC Hgb Hct POC Hct MCH MCHC RDW Plt Count Lymph % (Auto) 4.9 L [place] % (Auto) Lymph # 0.8 L [place] # 0.9 H Baso # Seg Neutrophils % 87.9 H Seg Neuts % (Manual) Lymphocytes % (Manual) Monocytes % (Manual) Nucleated RBC % Seg Neutrophils # 13.7 H Seg Neutrophils # Man Lymphocytes # (Manual) Monocytes # (Manual) PT INR APTT Fibrinogen Heparin Anti-Xa Level POC ABG pH POC ABG pCO2 POC ABG pO2 POC Potassium POC Chloride Sodium Potassium Chloride Carbon Dioxide POC BUN BUN Creatinine Glucose POC Glucose 140 H Calcium Magnesium AST Alkaline Phosphatase Lactate Dehydrogenase Total Creatine Kinase Total Protein Albumin Urine WBC (Auto) 67.0 H Crossmatch 07/07/16 07/07/16 07/07/16 04:53 06:13 07:15 WBC RBC Hgb POC Hgb Hct POC Hct MCH MCHC RDW Plt Count Lymph % (Auto) [place] % (Auto) Lymph # [place] # Baso # Seg Neutrophils % Seg Neuts % (Manual) Lymphocytes % (Manual) Monocytes % (Manual) Nucleated RBC % Seg Neutrophils # Seg Neutrophils # Man Lymphocytes # (Manual) Monocytes # (Manual) PT INR APTT Fibrinogen Heparin Anti-Xa Level POC ABG pH POC ABG pCO2 POC ABG pO2 POC Potassium POC Chloride Sodium Potassium 3.4 L Chloride Carbon Dioxide POC BUN BUN Creatinine Glucose 104 H POC Glucose 122 H 134 H Calcium 8.0 L Magnesium AST Alkaline Phosphatase Lactate Dehydrogenase Total Creatine Kinase Total Protein Albumin Urine WBC (Auto) Crossmatch 07/07/16 07/07/16 07/07/16 08:06 08:06 10:31 WBC RBC Hgb POC Hgb Hct POC Hct MCH MCHC RDW Plt Count Lymph % (Auto) [place] % (Auto) Lymph # [place] # Baso # Seg Neutrophils % Seg Neuts % (Manual) Lymphocytes % (Manual) Monocytes % (Manual) Nucleated RBC % Seg Neutrophils # Seg Neutrophils # Man Lymphocytes # (Manual) Monocytes # (Manual) PT INR APTT Fibrinogen Heparin Anti-Xa Level POC ABG pH POC ABG pCO2 POC ABG pO2 POC Potassium POC Chloride Sodium Potassium Chloride Carbon Dioxide POC BUN BUN Creatinine Glucose 111 H POC Glucose 145 H Calcium 7.9 L Magnesium AST 53 H Alkaline Phosphatase 164 H Lactate Dehydrogenase Total Creatine Kinase Total Protein 6.2 L Albumin 1.4 L Urine WBC (Auto) Crossmatch See Detail 07/07/16 07/07/16 07/07/16 12:08 13:57 16:44 WBC RBC Hgb 9.7 L POC Hgb Hct 30.1 L POC Hct MCH MCHC RDW Plt Count Lymph % (Auto) [place] % (Auto) Lymph # [place] # Baso # Seg Neutrophils % Seg Neuts % (Manual) Lymphocytes % (Manual) Monocytes % (Manual) Nucleated RBC % Seg Neutrophils # Seg Neutrophils # Man Lymphocytes # (Manual) Monocytes # (Manual) PT INR APTT Fibrinogen Heparin Anti-Xa Level POC ABG pH POC ABG pCO2 POC ABG pO2 POC Potassium POC Chloride Sodium Potassium Chloride Carbon Dioxide POC BUN BUN Creatinine Glucose POC Glucose 159 H 173 H Calcium Magnesium AST Alkaline Phosphatase Lactate Dehydrogenase Total Creatine Kinase Total Protein Albumin Urine WBC (Auto) Crossmatch 07/07/16 07/08/16 07/08/16 23:31 07:27 12:16 WBC RBC Hgb POC Hgb Hct POC Hct MCH MCHC RDW Plt Count Lymph % (Auto) [place] % (Auto) Lymph # [place] # Baso # Seg Neutrophils % Seg Neuts % (Manual) Lymphocytes % (Manual) Monocytes % (Manual) Nucleated RBC % Seg Neutrophils # Seg Neutrophils # Man Lymphocytes # (Manual) Monocytes # (Manual) PT INR APTT Fibrinogen Heparin Anti-Xa Level POC ABG pH POC ABG pCO2 POC ABG pO2 POC Potassium POC Chloride Sodium Potassium Chloride Carbon Dioxide POC BUN BUN Creatinine Glucose POC Glucose 163 H 149 H 150 H Calcium Magnesium AST Alkaline Phosphatase Lactate Dehydrogenase Total Creatine Kinase Total Protein Albumin Urine WBC (Auto) Crossmatch 07/08/16 07/08/16 07/08/16 12:50 16:46 21:45 WBC RBC Hgb POC Hgb Hct POC Hct MCH MCHC RDW Plt Count Lymph % (Auto) [place] % (Auto) Lymph # [place] # Baso # Seg Neutrophils % Seg Neuts % (Manual) Lymphocytes % (Manual) Monocytes % (Manual) Nucleated RBC % Seg Neutrophils # Seg Neutrophils # Man Lymphocytes # (Manual) Monocytes # (Manual) PT INR APTT Fibrinogen Heparin Anti-Xa Level POC ABG pH POC ABG pCO2 POC ABG pO2 POC Potassium POC Chloride Sodium Potassium Chloride Carbon Dioxide 21 L POC BUN BUN Creatinine Glucose 126 H POC Glucose 143 H 134 H Calcium 7.5 L Magnesium AST Alkaline Phosphatase Lactate Dehydrogenase Total Creatine Kinase Total Protein Albumin Urine WBC (Auto) Crossmatch 07/09/16 07/09/16 07/09/16 07:31 07:31 08:07 WBC RBC Hgb POC Hgb Hct POC Hct MCH MCHC RDW Plt Count Lymph % (Auto) [place] % (Auto) Lymph # [place] # Baso # Seg Neutrophils % Seg Neuts % (Manual) Lymphocytes % (Manual) Monocytes % (Manual) Nucleated RBC % Seg Neutrophils # Seg Neutrophils # Man Lymphocytes # (Manual) Monocytes # (Manual) PT INR APTT Fibrinogen Heparin Anti-Xa Level POC ABG pH POC ABG pCO2 POC ABG pO2 POC Potassium POC Chloride Sodium Potassium Chloride Carbon Dioxide POC BUN BUN Creatinine Glucose 117 H POC Glucose 132 H Calcium 7.5 L Magnesium AST Alkaline Phosphatase 136 H Lactate Dehydrogenase 285 H Total Creatine Kinase 297 H Total Protein 5.4 L Albumin 1.5 L Urine WBC (Auto) Crossmatch 07/09/16 07/09/16 07/09/16 09:55 11:10 16:26 WBC 13.4 H RBC 1.95 L Hgb 5.8 L* D POC Hgb Hct 17.7 L* D POC Hct MCH MCHC RDW 15.5 H Plt Count Lymph % (Auto) 9.4 L [place] % (Auto) 8.3 H Lymph # [place] # 1.1 H Baso # Seg Neutrophils % 81.2 H Seg Neuts % (Manual) Lymphocytes % (Manual) Monocytes % (Manual) Nucleated RBC % Seg Neutrophils # 10.9 H Seg Neutrophils # Man Lymphocytes # (Manual) Monocytes # (Manual) PT INR APTT Fibrinogen Heparin Anti-Xa Level POC ABG pH POC ABG pCO2 POC ABG pO2 POC Potassium POC Chloride Sodium Potassium Chloride Carbon Dioxide POC BUN BUN Creatinine Glucose POC Glucose 240 H 113 H Calcium Magnesium AST Alkaline Phosphatase Lactate Dehydrogenase Total Creatine Kinase Total Protein Albumin Urine WBC (Auto) Crossmatch 07/09/16 07/10/16 07/10/16 21:45 04:10 09:03 WBC 15.1 H RBC 3.00 L Hgb 8.8 L D POC Hgb Hct 26.2 L D POC Hct MCH MCHC RDW 15.4 H Plt Count Lymph % (Auto) 8.4 L [place] % (Auto) 8.4 H Lymph # [place] # 1.3 H Baso # Seg Neutrophils % 82.5 H Seg Neuts % (Manual) Lymphocytes % (Manual) Monocytes % (Manual) Nucleated RBC % Seg Neutrophils # 12.5 H Seg Neutrophils # Man Lymphocytes # (Manual) Monocytes # (Manual) PT INR APTT Fibrinogen Heparin Anti-Xa Level POC ABG pH POC ABG pCO2 POC ABG pO2 POC Potassium POC Chloride Sodium Potassium Chloride Carbon Dioxide POC BUN BUN Creatinine Glucose POC Glucose 113 H 122 H Calcium Magnesium AST Alkaline Phosphatase Lactate Dehydrogenase Total Creatine Kinase Total Protein Albumin Urine WBC (Auto) Crossmatch 07/10/16 07/10/16 07/10/16 11:38 15:36 21:45 WBC RBC Hgb POC Hgb Hct POC Hct MCH MCHC RDW Plt Count Lymph % (Auto) [place] % (Auto) Lymph # [place] # Baso # Seg Neutrophils % Seg Neuts % (Manual) Lymphocytes % (Manual) Monocytes % (Manual) Nucleated RBC % Seg Neutrophils # Seg Neutrophils # Man Lymphocytes # (Manual) Monocytes # (Manual) PT INR APTT Fibrinogen Heparin Anti-Xa Level POC ABG pH POC ABG pCO2 POC ABG pO2 POC Potassium POC Chloride Sodium Potassium Chloride Carbon Dioxide POC BUN BUN Creatinine Glucose POC Glucose 146 H 131 H 141 H Calcium Magnesium AST Alkaline Phosphatase Lactate Dehydrogenase Total Creatine Kinase Total Protein Albumin Urine WBC (Auto) Crossmatch 07/11/16 07/11/16 07/11/16 05:10 07:40 11:45 WBC RBC Hgb POC Hgb Hct POC Hct MCH MCHC RDW Plt Count Lymph % (Auto) [place] % (Auto) Lymph # [place] # Baso # Seg Neutrophils % Seg Neuts % (Manual) Lymphocytes % (Manual) Monocytes % (Manual) Nucleated RBC % Seg Neutrophils # Seg Neutrophils # Man Lymphocytes # (Manual) Monocytes # (Manual) PT INR APTT Fibrinogen Heparin Anti-Xa Level POC ABG pH POC ABG pCO2 POC ABG pO2 POC Potassium POC Chloride Sodium Potassium Chloride Carbon Dioxide POC BUN BUN Creatinine Glucose 107 H POC Glucose 114 H 116 H Calcium 7.7 L Magnesium AST 81 H Alkaline Phosphatase 153 H Lactate Dehydrogenase Total Creatine Kinase Total Protein 6.0 L Albumin 1.8 L Urine WBC (Auto) Crossmatch 07/11/16 07/11/16 07/12/16 16:22 19:45 08:39 WBC RBC Hgb POC Hgb Hct POC Hct MCH MCHC RDW Plt Count Lymph % (Auto) [place] % (Auto) Lymph # [place] # Baso # Seg Neutrophils % Seg Neuts % (Manual) Lymphocytes % (Manual) Monocytes % (Manual) Nucleated RBC % Seg Neutrophils # Seg Neutrophils # Man Lymphocytes # (Manual) Monocytes # (Manual) PT INR APTT Fibrinogen Heparin Anti-Xa Level POC ABG pH POC ABG pCO2 POC ABG pO2 POC Potassium POC Chloride Sodium Potassium Chloride Carbon Dioxide POC BUN BUN Creatinine Glucose POC Glucose 110 H 106 H 124 H Calcium Magnesium AST Alkaline Phosphatase Lactate Dehydrogenase Total Creatine Kinase Total Protein Albumin Urine WBC (Auto) Crossmatch 07/12/16 07/12/16 07/13/16 11:31 16:36 07:05 WBC 12.4 H RBC 2.93 L Hgb 8.5 L POC Hgb Hct 25.6 L POC Hct MCH MCHC RDW Plt Count Lymph % (Auto) 11.2 L [place] % (Auto) 7.5 H Lymph # [place] # 0.9 H Baso # Seg Neutrophils % 80.6 H Seg Neuts % (Manual) Lymphocytes % (Manual) Monocytes % (Manual) Nucleated RBC % Seg Neutrophils # 10.0 H Seg Neutrophils # Man Lymphocytes # (Manual) Monocytes # (Manual) PT INR APTT Fibrinogen Heparin Anti-Xa Level POC ABG pH POC ABG pCO2 POC ABG pO2 POC Potassium POC Chloride Sodium Potassium Chloride Carbon Dioxide POC BUN BUN Creatinine Glucose POC Glucose 128 H 119 H Calcium Magnesium AST Alkaline Phosphatase Lactate Dehydrogenase Total Creatine Kinase Total Protein Albumin Urine WBC (Auto) Crossmatch 07/13/16 07:30 WBC RBC Hgb POC Hgb Hct POC Hct MCH MCHC RDW Plt Count Lymph % (Auto) [place] % (Auto) Lymph # [place] # Baso # Seg Neutrophils % Seg Neuts % (Manual) Lymphocytes % (Manual) Monocytes % (Manual) Nucleated RBC % Seg Neutrophils # Seg Neutrophils # Man Lymphocytes # (Manual) Monocytes # (Manual) PT INR APTT Fibrinogen Heparin Anti-Xa Level POC ABG pH POC ABG pCO2 POC ABG pO2 POC Potassium POC Chloride Sodium Potassium Chloride Carbon Dioxide POC BUN BUN Creatinine Glucose POC Glucose 133 H Calcium Magnesium AST Alkaline Phosphatase Lactate Dehydrogenase Total Creatine Kinase Total Protein Albumin Urine WBC (Auto) Crossmatch
--- NOTE | 2016-07-13 15:32 | Consultation ---
History of Present Illness - Reason for Consult Consult date: 07/13/16 DM2, hyperglycemia Requesting physician: GERALDINE THOMSON - History of Present Illness 55-year-old female with medical history significant for type 2 diabetes mellitus peripheral vascular disease peripheral neuropathy hypertension admitted to [facility] with left lower extremity pain at rest. She had multiple interventions for her peripheral vascular disease. Currently vascular surgery is considering below knee amputation. 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 Today her blood sugar was 314 and was called for the management of hyperglycemia. REVIEW OF SYSTEMS: GENERAL: no fever HEAD: no head ache EYES: no blurry vision, no acute visual loss EARS: no hearing loss, no discharge, no earache NOSE: no stuffiness, no sneezing, no discharge MOUTH, THROAT AND NECK: no bleeding gums, no sore throat, no swollen neck CARDIAC: no palpitations, no dyspnea on exertion, no orthopnea, no PND, no edema , no chest pain RESPIRATORY: no shortness of breath, no wheeze, no cough, no sputum, no hemoptysis, no asthma GI: no decreased appetite, no nausea, no vomiting, no dysphagia, no diarrhea, no constipation, no abdominal pain URINARY: + Folic catheter HEMATOLOGIC: no anemia, no easy bruising SKIN: no rashes ENDOCRINE: no heat/cold intolerance, no polyuria, no polydipsia, no thyroid problems,+ diabetes PSYCHIATRIC: no anxiety, no depression, no suicidal ideations Past History Past Medical History: diabetes, hypertension, PVD, other (Obesity) Past Surgical History: Other (revascularization procedures) Social history: lives with family (sister). denies: alcohol abuse, prescription drug abuse Family history: diabetes, hypertension Medications and Allergies Allergies Allergy/AdvReac Type Severity Reaction Status Date / Time No Known Allergies Allergy Verified 01/24/15 14:51 Home Medications Medication Instructions Recorded Confirmed Last Taken Type Aspirin EC [Aspirin Enteric Coated 81 mg PO QDAY 01/25/15 06/13/16 06/13/16 History TAB] Atenolol/Chlorthalidone 1 each PO DAILY 01/25/15 06/13/16 06/13/16 History [Atenolol-Chlorthalidone 50-25] Clopidogrel [Plavix] 75 mg PO QDAY 01/25/15 06/13/16 06/13/16 History Ergocalciferol [Vitamin D2] 1 cap PO QWEEK 01/25/15 06/13/16 06/09/16 History Gabapentin [Neurontin] 300 mg PO Q8H 01/25/15 06/13/16 06/13/16 History Potassium Chloride 10 meq PO QDAY 01/25/15 06/13/16 06/13/16 History AtorvaSTATin [Lipitor] 40 mg PO QHS 06/22/16 06/22/16 Unknown History Ferrous Sulfate [Feosol 325 MG tab] 325 mg PO QDAY 06/22/16 06/22/16 Unknown History Metformin HCl [Glucophage] 1,000 mg PO BID 06/22/16 06/22/16 Unknown History Apixaban [Eliquis] 5 mg PO Q12HR tablet 07/01/16 Unknown Rx Clopidogrel [Plavix] 75 mg PO QDAY tablet 07/01/16 Unknown Rx Active Meds: Active Medications Acetaminophen (Tylenol) 650 mg PO Q6H PRN PRN Reason: Pain, Mild (1-3) Last Admin: 07/09/16 19:59 Dose: 650 mg Aspirin (Baby Aspirin) 81 mg PO QDAY [facility] Last Admin: 07/13/16 09:29 Dose: 81 mg Atenolol (Tenormin) 50 mg PO QDAY [facility] Last Admin: 07/13/16 09:28 Dose: 50 mg Atorvastatin Calcium (Lipitor) 40 mg PO QHS [facility] Last Admin: 07/12/16 22:45 Dose: 40 mg Clopidogrel Bisulfate (Plavix) 75 mg PO QDAY [facility] Last Admin: 07/13/16 09:28 Dose: 75 mg Ergocalciferol (Vitamin D2) 50,000 unit PO Mo [facility] Last Admin: 07/07/16 15:07 Dose: 50,000 unit Ferrous Sulfate (Ferrous Sulfate) 300 mg PO QDAY [facility] Last Admin: 07/13/16 09:29 Dose: 300 mg Hydrophilic Ointment (Vaseline Lip Therapy) 1 applic TP Q2H PRN PRN Reason: Dry Lips Potassium Chloride/Dextrose/Sod Cl (D5w/0.45% Nacl/Kcl 20 Meq) 1,000 mls @ 75 mls/hr IV DIRECT [facility] Last Admin: 07/13/16 09:19 Dose: 75 mls/hr Piperacillin Sod/Tazobactam Sod (Zosyn/Ns 4.5gm/100ml) 100 mls @ 200 mls/hr IV Q8H ANNA PRN Reason: Protocol Last Admin: 07/13/16 11:35 Dose: 200 mls/hr Sodium Chloride (Nacl 0.9% 500 Ml) 500 mls @ 0 mls/hr IV ONCE NR PRN Reason: As Directed Stop: 07/13/16 23:59 Insulin Aspart (Novolog) 0 units SUB-Q ACHS ANNA PRN Reason: Protocol Last Admin: 07/13/16 11:45 Dose: Not Given Levalbuterol HCl (Xopenex) 1.25 mg IH Q8HRT PRN PRN Reason: Shortness Of Breath Last Admin: 07/08/16 20:31 Dose: 1.25 mg Morphine Sulfate (Morphine Plastic Duplicator 30mg/30ml) 0 mg IV DIRECT [facility] PRN Reason: Protocol Last Admin: 07/13/16 07:27 Dose: 30 cartstart Multi-Ingred Cream/Lotion/Oil/Oint (Artificial Tears Ophth Oint) 1 applic OU Q4H PRN PRN Reason: Dry Eye(s) Naloxone HCl (Narcan 0.4 Mg/1 Ml) 0.1 mg IV Q2MIN PRN PRN Reason: Res Rate </= 8 or 02 SAT < 92% Ondansetron HCl (Zofran) 4 mg IV Q8H PRN PRN Reason: Nausea And Vomiting Last Admin: 06/16/16 22:21 Dose: 4 mg Pantoprazole Sodium (Protonix) 40 mg PO DAILY [facility] Last Admin: 07/13/16 09:29 Dose: 40 mg Potassium Chloride (K-Dur) 20 meq PO QDAY [facility] Last Admin: 07/13/16 09:29 Dose: 20 meq Senna/Docusate Sodium (Senokot S) 2 tab PO BID [facility] Last Admin: 07/13/16 09:29 Dose: 2 tab Silver Sulfadiazine (Thermazene 50 Gram) 1 applic TP QDAY [facility] Last Admin: 07/13/16 10:23 Dose: 1 applic Sodium Chloride (Nacl 0.9%) 1,000 ml IR PRN PRN PRN Reason: Wound Care Exam - Physical Exam Narrative exam: Not in cardiopulmonary distress. The patient appeared well nourished and normally developed. Vital signs as documented. Head exam is unremarkable. No scleral icterus . Neck is without jugular venous distension, thyromegaly, or carotid bruits. Lungs are clear to auscultation. Cardiac exam reveals regular rate and Rhythm. . Abdominal exam reveals normal bowel sounds, no masses, no organomegaly and no aortic enlargement. Extremities multiple ulcers, his wound VAC on the left groin area. Decreased/absent pulse on the right anterior tibialis. OUTREACH NURSE: Alert and oriented 3. No focal weakness. - Constitutional Vitals: Temp Pulse Resp BP Pulse Ox 99.5 F 102 H 19 140/64 100 07/13/16 12:00 07/13/16 14:17 07/13/16 14:17 07/13/16 14:00 07/13/16 14:00 Results - Labs CBC & Chem 7: 07/13/16 07:05 07/11/16 05:10 Labs: Abnormal lab results 07/12/16 07/12/16 07/13/16 Range/Units 08:39 16:36 07:05 WBC 12.4 H (4.5-11.0) K/mm3 RBC 2.93 L (3.65-5.03) M/mm3 Hgb 8.5 L (10.1-14.3) gm/dl Hct 25.6 L (30.3-42.9) % Lymph % (Auto) 11.2 L (13.4-35.0) % Evans % (Auto) 7.5 H (0.0-7.3) % Evans # 0.9 H (0.0-0.8) K/mm3 Seg Neutrophils % 80.6 H (40.0-70.0) % Seg Neutrophils # 10.0 H (1.8-7.7) K/mm3 POC Glucose 124 H 119 H (70-105) 07/13/16 Range/Units 07:30 WBC (4.5-11.0) K/mm3 RBC (3.65-5.03) M/mm3 Hgb (10.1-14.3) gm/dl Hct (30.3-42.9) % Lymph % (Auto) (13.4-35.0) % Evans % (Auto) (0.0-7.3) % Evans # (0.0-0.8) K/mm3 Seg Neutrophils % (40.0-70.0) % Seg Neutrophils # (1.8-7.7) K/mm3 POC Glucose 133 H (70-105) Assessment and Plan (1) Peripheral vascular disease of extremity Current Visit: Yes Status: Acute (2) Acute respiratory failure Current Visit: Yes Status: Acute (3) Anemia Current Visit: Yes Status: Acute (4) Altered mental status Current Visit: Yes Status: chronic Diabetes mellitus type 2 Hyperglycemia - Patient is on sliding scale insulin and continue with it - All other readings are with in normal limit - Because the patient is not eating i don't think she needs basal insulin
[2016-07-13] MEDS: TYLENOL PO PRN ×2 (16:43→22:22)
[2016-07-14 04:27] LABS: Basophils % (Auto) 0.2 % (0.0-1.8); Eosinophils % (Auto) 0.4 % (0.0-4.3); Hematocrit 33.4 % (30.3-42.9); Hemoglobin 11.1 gm/dl (10.1-14.3); Mean Corpuscular HGB Conc 33 % (30-34); Mean Corpuscular Hemoglobin 29 pg (28-32); Mean Corpuscular Volume 87 fl (79-97); Platelet Count 289 K/mm3 (140-440); Red Blood Count 3.84 M/mm3 (3.65-5.03); Red Cell Distribution Width 14.5 % (13.2-15.2); White Blood Count 13.9 K/mm3 (4.5-11.0)
[2016-07-14] MEDS: ZOSYN/NS 4.5GM/100ML 100 ML IV SCH ×3 (05:25→22:30)
[2016-07-14] MEDS: NOVOLOG SUB-Q SCH ×4 (08:00→22:31)
[2016-07-14 08:46] LABS: Anion Gap 14 mmol/L; BUN/Creatinine Ratio 11.42; Blood Urea Nitrogen 8 mg/dL (7-17); Calcium 7.8 mg/dL (8.4-10.2); Carbon Dioxide 25 mmol/L (22-30); Chloride 100.4 mmol/L (98-107); Glucose 113 mg/dL (65-100); Potassium 4.4 mmol/L (3.6-5.0); Sodium 135 mmol/L (137-145)
--- NOTE | 2016-07-14 08:47 | Progress Note ---
Assessment and Plan Current antibiotics: Zosyn 4.5 grams IV q8h 07/08 --> Previous antibiotics: Zosyn 2.25 g IV q8h 06/21-06/24 Cefazolin perioperatively ASSESSMENT: Cande Ge is a 55-year-old female with severe peripheral vascular disease, type 2 DM with peripheral neuropathy and hypertension who was admitted to [facility] as an outpatient with left lower extremity pain at rest for her cutaneous intervention which was unsuccessful and subsequently underwent left femoral endarterectomy and left iliac stenting and left femoral-popliteal bypass on 06/16 , urgent thrombectomies on 06/20 and right femoral endarterectomy with patch angioplasty on 07/03. She also had 2 cardiac arrests on 06/20 requiring resuscitation and intubation. She developed evidence of a retroperitoneal hematoma and ureteral obstruction and underwent bilateral ureteral stenting on 06/27. She has had a low-grade fever and leukocytosis. 07/07/16: Debridement of the left groin wound. Removal of infected Dacron patch from the SFA. Removal of thrombosed infected vein bypass graft proximal portion. Creation of the sartorius muscle flap over common femoral artery bovine pericardial patch. 07/10/16: CTA demonstrated occlusion of the left external iliac as well as common femoral artery. The profunda is being filled through collaterals with very minimal flow below the knee. Problem list: 1. Leukocytosis, multifactorial including left leg ischemia and groin necrosis associated with an infected Dacron patch 2. Low-grade fever -Resolved 3. Left groin wound infection -Status post debridement of the left groin wound, removal of an infected Dacron patch from the SFA, removal of this thrombosed infected vein bypass graft proximal portionand creation of the sartorius muscle flap over common femoral artery bovine pericardial patch 07/08 -Polymicrobial with Escherichia coli, Enterococcus faecalis and Enterococcus avium 4. Severe peripheral vascular disease -Unsuccessful attempt at percutaneous left lower extremity revascularization 06/13 -Left femoral endarterectomy, left iliac stenting and left femoral-popliteal bypass on 06/16 -Left lower extremity thrombectomies on 06/20 -Right femoral endarterectomy with patch angioplasty on 07/03 -Left lower extremity felt to be nonsalvageable 5. Retroperitoneal hematoma -As seen on CT scan 06/27 -R/O secondary infection 6. Bilateral hydroureteronephrosis -Status post bilateral ureteral stenting 06/27 7. Status post cardiopulmonary arrests X 2 -06/20 -Mechanical ventilatory support until 07/05 8. REJI -Creatinine peaked at 4.8 on 06/27 -Likely secondary to ATN -Resolved PLAN: 1. Continue Zosyn 2. Continue local wound care and wound vac 3. Patient having above knee amputation of left leg 4. Continued supportive measures and close observation Subjective Date of service: 07/14/16 Principal diagnosis: Acute Hypoxemic Respiratory Failure; s/p cardiopulmonary arrest Interval history: Patient seen in bed, alert and oriented. She expressed that she wants to get out of the hospital Objective - Constitutional Vitals: Selected Entries Selected Entries 07/14/16 06:00 Respiratory 12 Rate O2 Sat by Pulse 100 Oximetry Blood Pressure 151/73 Blood Pressure 99 Mean 07/14/16 07/14/16 07/14/16 00:57 01:15 04:00 Temperature 97.1 F L 97.7 F 97.3 F L General appearance: Present: no acute distress, well-nourished - EENT Eyes: PERRL, EOM intact, no scleral icterus, no conjunctival injection ENT: hearing intact, edentulous Ears: bilateral: normal - Neck Neck: supple, normal ROM, no enlarged thyroid, no masses or JVD - Respiratory Respiratory effort: normal Respiratory: bilateral: CTA - Breasts Breasts: deferred - Cardiovascular Rhythm: regular Heart Sounds: Present: S1 & S2 Extremities: abnormal (left groin wound vac in place, left leg cool to touch, edema, absent pulse) - Gastrointestinal General gastrointestinal: Present: soft, non-tender, normal bowel sounds Rectal Exam: deferred - Genitourinary Female genitourinary: deferred - Labs CBC & Chem 7: 07/14/16 Unknown 07/14/16 08:30 Labs: Microbiology 07/09/16 04:26 Peripheral/Venous Blood Culture - Final NO GROWTH AFTER 5 DAYS 07/09/16 04:26 Peripheral/Venous Blood Culture - Preliminary NO GROWTH AFTER 24 HOURS 07/09/16 04:26 Peripheral/Venous Blood Culture - Preliminary NO GROWTH AFTER 24 HOURS 07/09/16 04:26 Peripheral/Venous Blood Culture - Preliminary Coag Negative Staphylococcus 07/07/16 Unknown Thigh - Left Surgical Biopsy Culture - Preliminary Escherichia Coli Enterococcus Faecalis Streptococcus Species 07/07/16 Unknown Thigh - Left Surgical Biopsy Culture - Preliminary Escherichia Coli Enterococcus Faecalis Streptococcus Species 07/07/16 Unknown Thigh - Left Surgical Biopsy Culture - Preliminary Escherichia Coli Enterococcus Faecalis Streptococcus Species 07/07/16 Unknown Thigh - Left Surgical Biopsy Culture - Preliminary Escherichia Coli Laboratory Tests 07/09/16 07/10/16 07/11/16 07:31 04:10 05:10 WBC 15.1 H Plt Count 238 Creatinine 0.9 0.8 07/14/16 Unknown WBC 13.9 H Plt Count 289 Creatinine
[2016-07-14] MEDS: MORPHINE PCA 30MG/30ML IV SCH ×2 (09:30→21:36)
[2016-07-14] MEDS: PROTONIX PO SCH (11:02)
[2016-07-14] MEDS: SENOKOT S PO SCH ×2 (11:02→22:31)
[2016-07-14] MEDS: TENORMIN PO SCH (11:02)
[2016-07-14] MEDS: FERROUS SULFATE PO SCH (11:02)
[2016-07-14] MEDS: PLAVIX PO SCH (11:03)
[2016-07-14] MEDS: VITAMIN D2 PO SCH (11:03)
[2016-07-14] MEDS: K-DUR PO SCH (11:03)
[2016-07-14] MEDS: BABY ASPIRIN PO SCH (11:03)
[2016-07-14] MEDS: THERMAZENE 50 GRAM TP SCH (11:03)
--- NOTE | 2016-07-14 12:49 | Progress Note ---
Assessment and Plan Patient will require left lower extremity above-knee amputation. This has previously been discussed with patient. Family is not at bedside; contacted daughter who provided consent for patient due to AMS of patient. We'll plan for above-knee amputation tomorrow with rehabilitation afterwards. S/p 2 unit pRBC yesterday in preparation for surgery. Continue antiplatelet regimen. Do not recommend cessation of antiplatelet regimen, as this could result in limb loss of the right lower extremity. Right groin serosanginous drainage has become more foul smelling overnight and today. Will continue to evaluate. Bacteremia noted and patient on Zosyn. Antibiotics per ID. Has superficial eschar on dorsal surface of right foot with severe PVD ; at risk for limb loss. Will need revascularization of RLE. Time of such procedures is complicated by active issues with left lower extremity. Subjective Date of service: 07/14/16 Principal diagnosis: Acute Hypoxemic Respiratory Failure; s/p cardiopulmonary arrest Interval history: Slightly decreased mental status. Patient complains of pain at the incision groin sites and left leg when the left leg is moved. Right foot without motor function, left foot without motor function. Right foot warm. Left foot cold. 4 cm x 4 cm superficial eschar on the dorsum of the right foot. Right groin has now started to drain foul smelling serosanginous fluid from serosanginous fluid Objective - Constitutional Vitals: Vital Signs - 12hr 07/14/16 07/14/16 07/14/16 00:57 01:01 01:15 Temperature 97.1 F L 97.7 F Pulse Rate 93 H 101 H 95 H Pulse Rate [ Left Radial] Respiratory 14 14 12 Rate Respiratory Rate [Bilateral Leg] Blood Pressure 130/65 137/42 137/42 O2 Sat by Pulse 100 99 100 Oximetry 07/14/16 07/14/16 07/14/16 01:37 02:00 02:07 Temperature Pulse Rate 94 H 94 H 93 H Pulse Rate [ Left Radial] Respiratory 14 13 14 Rate Respiratory Rate [Bilateral Leg] Blood Pressure 117/56 136/66 136/66 O2 Sat by Pulse 99 99 97 Oximetry 07/14/16 07/14/16 07/14/16 03:00 03:57 04:00 Temperature 97.3 F L Pulse Rate 93 H 92 H 91 H Pulse Rate [ 92 H Left Radial] Respiratory 11 L 14 14 Rate Respiratory 16 Rate [Bilateral Leg] Blood Pressure 133/65 133/65 148/67 O2 Sat by Pulse 100 99 100 Oximetry 07/14/16 07/14/16 07/14/16 05:00 06:00 09:30 Temperature Pulse Rate 93 H 94 H Pulse Rate [ Left Radial] Respiratory 14 12 19 Rate Respiratory Rate [Bilateral Leg] Blood Pressure 140/68 151/73 O2 Sat by Pulse 100 100 Oximetry 07/14/16 11:02 Temperature Pulse Rate 104 H Pulse Rate [ Left Radial] Respiratory Rate Respiratory Rate [Bilateral Leg] Blood Pressure 143/74 O2 Sat by Pulse Oximetry General appearance: Present: no acute distress - EENT Eyes: EOM intact ENT: hearing intact - Respiratory Respiratory effort: normal Extremities: normal temperature (rle), normal color (rle) Extremity abnormal: ulceration (superficial eschar 4 x 4 over dorsum of right foot), cold (lle), other (VAC left groin intact ; foul smelling serosanginous fluid from right groin) - Psychiatric Psychiatric: no intact judgment & insight, cooperative - Labs CBC & Chem 7: 07/14/16 Unknown 07/14/16 08:30 Labs: Abnormal lab results 07/13/16 07/13/16 07/13/16 Range/Units 11:41 13:45 15:28 WBC (4.5-11.0) K/mm3 Lymph % (Auto) (13.4-35.0) % Seg Neutrophils % (40.0-70.0) % Seg Neutrophils # (1.8-7.7) K/mm3 Sodium (137-145) mmol/L Glucose (65-100) mg/dL POC Glucose 129 H 119 H (70-105) Calcium (8.4-10.2) mg/dL Crossmatch See Detail 07/13/16 07/14/16 07/14/16 Range/Units 23:29 08:15 08:30 WBC (4.5-11.0) K/mm3 Lymph % (Auto) (13.4-35.0) % Seg Neutrophils % (40.0-70.0) % Seg Neutrophils # (1.8-7.7) K/mm3 Sodium 135 L (137-145) mmol/L Glucose 113 H (65-100) mg/dL POC Glucose 113 H 130 H (70-105) Calcium 7.8 L (8.4-10.2) mg/dL Crossmatch 07/14/16 Range/Units Unknown WBC 13.9 H (4.5-11.0) K/mm3 Lymph % (Auto) 9.9 L (13.4-35.0) % Seg Neutrophils % 83.8 H (40.0-70.0) % Seg Neutrophils # 11.7 H (1.8-7.7) K/mm3 Sodium (137-145) mmol/L Glucose (65-100) mg/dL POC Glucose (70-105) Calcium (8.4-10.2) mg/dL Crossmatch
[2016-07-14] MEDS: D5W/0.45% NACL/KCL 20 MEQ 1,000 ML IV SCH (13:54)
--- NOTE | 2016-07-14 14:03 | Progress Note ---
Assessment and Plan - Patient Problems (1) Peripheral vascular disease of extremity Current Visit: Yes Status: Acute Plan to address problem: - tentatively for AKA left leg tomorrow - vascular surgery managing - continue analgesia (2) Acute respiratory failure Current Visit: Yes Status: Acute Plan to address problem: - on room air but need to r/o hemothorax which will necessitate further intervention - thoracentesis on hold re: plavix but also clinical stability respiratory-centeno (3) Anemia Current Visit: Yes Status: Acute Plan to address problem: - follow H&H - evaluating source - LDH unremarkable - Likely ABLA component (4) Altered mental status Current Visit: Yes Status: Acute Plan to address problem: - improved - dementia element likely +/- depression element Subjective Date of service: 07/14/16 Principal diagnosis: Acute Hypoxemic Respiratory Failure; s/p cardiopulmonary arrest Interval history: Seen and examined at bedside; 24 hour events reviewed; nursing and respiratory care staff consulted; no adverse overnight events reported to me;resting peacefully; states she is ready for surgery tomorrow; No N/V/F/C/Chest pains or increased SOB Objective Vital Signs - 12hr 07/14/16 07/14/16 07/14/16 02:07 03:00 03:57 Temperature Pulse Rate 93 H 93 H 92 H Pulse Rate [ Left Radial] Respiratory 14 11 L 14 Rate Respiratory Rate [Bilateral Leg] Blood Pressure 136/66 133/65 133/65 O2 Sat by Pulse 97 100 99 Oximetry 07/14/16 07/14/16 07/14/16 04:00 05:00 06:00 Temperature 97.3 F L Pulse Rate 91 H 93 H 94 H Pulse Rate [ 92 H Left Radial] Respiratory 14 14 12 Rate Respiratory 16 Rate [Bilateral Leg] Blood Pressure 148/67 140/68 151/73 O2 Sat by Pulse 100 100 100 Oximetry 07/14/16 07/14/16 07/14/16 06:39 07:00 08:00 Temperature 98.2 F Pulse Rate 93 H 93 H Pulse Rate [ Left Radial] Respiratory 13 13 Rate Respiratory Rate [Bilateral Leg] Blood Pressure 151/73 143/71 O2 Sat by Pulse 99 100 Oximetry 07/14/16 07/14/16 07/14/16 08:01 09:01 09:30 Temperature Pulse Rate 98 H 99 H Pulse Rate [ Left Radial] Respiratory 19 19 19 Rate Respiratory Rate [Bilateral Leg] Blood Pressure 140/69 150/71 O2 Sat by Pulse 100 99 Oximetry 07/14/16 07/14/16 07/14/16 10:00 11:00 11:02 Temperature Pulse Rate 103 H 104 H 104 H Pulse Rate [ Left Radial] Respiratory 12 14 Rate Respiratory Rate [Bilateral Leg] Blood Pressure 143/74 145/91 143/74 O2 Sat by Pulse 100 99 Oximetry 07/14/16 07/14/16 12:00 12:01 Temperature 98.4 F Pulse Rate 102 H Pulse Rate [ Left Radial] Respiratory 16 Rate Respiratory Rate [Bilateral Leg] Blood Pressure 145/91 O2 Sat by Pulse 100 Oximetry Constitutional: no acute distress, alert Eyes: non-icteric ENT: oropharynx moist Neck: supple, no lymphadenopathy Effort: normal Ascultation: Left: diminished breath sounds (base), Bilateral: clear Cardiovascular: regular rate and rhythm Gastrointestinal: normoactive bowel sounds, soft, non-tender, non-distended Integumentary: other (weak LLExt) Extremities: edema, other (LLExt cool; gangrene setting in on digits) Neurologic: normal mental status, non-focal exam, pupils equal and round Psychiatric: mood appropriate, affect normal CBC and BMP: 07/15/16 04:15 07/15/16 04:15 ABG, PT/INR, D-dimer: ABG POC ABG pH 7.436 (7.35-7.45) 07/04/16 16:49 POC ABG pCO2 31.1 (35-45) L 07/04/16 16:49 POC ABG pO2 110 (80-105) H 07/04/16 16:49 POC ABG HCO3 20.9 07/04/16 16:49 POC ABG Total CO2 22 07/04/16 16:49 POC ABG O2 Sat 99 07/04/16 16:49 PT/INR, D-dimer PT 19.9 Sec. (12.2-14.9) H 06/26/16 22:57 INR 1.69 (0.87-1.13) H 06/26/16 22:57 Abnormal lab findings: Abnormal Labs 06/13/16 06/13/16 06/13/16 09:45 09:45 09:45 WBC RBC Hgb POC Hgb Hct POC Hct MCH 25 L MCHC RDW 15.8 H Plt Count Lymph % (Auto) [place] % (Auto) 8.1 H Lymph # [place] # Baso # Seg Neutrophils % Seg Neuts % (Manual) Lymphocytes % (Manual) Monocytes % (Manual) Nucleated RBC % Seg Neutrophils # Seg Neutrophils # Man Lymphocytes # (Manual) Monocytes # (Manual) PT INR APTT Fibrinogen 522 H Heparin Anti-Xa Level POC ABG pH POC ABG pCO2 POC ABG pO2 POC Potassium POC Chloride Sodium Potassium Chloride Carbon Dioxide POC BUN BUN Creatinine Glucose POC Glucose Calcium 10.3 H Magnesium AST Alkaline Phosphatase Lactate Dehydrogenase Total Creatine Kinase Total Protein Albumin Urine WBC (Auto) Crossmatch 06/13/16 06/13/16 06/13/16 09:45 20:14 20:15 WBC RBC Hgb POC Hgb Hct POC Hct MCH MCHC RDW Plt Count Lymph % (Auto) [place] % (Auto) Lymph # [place] # Baso # Seg Neutrophils % Seg Neuts % (Manual) Lymphocytes % (Manual) Monocytes % (Manual) Nucleated RBC % Seg Neutrophils # Seg Neutrophils # Man Lymphocytes # (Manual) Monocytes # (Manual) PT INR APTT 103.8 H* Fibrinogen Heparin Anti-Xa Level 0.72 H POC ABG pH POC ABG pCO2 POC ABG pO2 POC Potassium POC Chloride Sodium Potassium Chloride Carbon Dioxide POC BUN BUN Creatinine Glucose POC Glucose Calcium Magnesium AST Alkaline Phosphatase Lactate Dehydrogenase Total Creatine Kinase Total Protein Albumin Urine WBC (Auto) Crossmatch See Detail 06/14/16 06/14/16 06/14/16 07:44 10:18 19:09 WBC RBC Hgb POC Hgb Hct POC Hct MCH 26 L MCHC RDW 15.8 H Plt Count Lymph % (Auto) [place] % (Auto) 9.1 H Lymph # [place] # Baso # Seg Neutrophils % Seg Neuts % (Manual) Lymphocytes % (Manual) Monocytes % (Manual) Nucleated RBC % Seg Neutrophils # Seg Neutrophils # Man Lymphocytes # (Manual) Monocytes # (Manual) PT INR APTT Fibrinogen Heparin Anti-Xa Level 0.76 H POC ABG pH POC ABG pCO2 POC ABG pO2 POC Potassium POC Chloride Sodium Potassium Chloride Carbon Dioxide POC BUN BUN Creatinine Glucose POC Glucose 106 H Calcium Magnesium AST Alkaline Phosphatase Lactate Dehydrogenase Total Creatine Kinase Total Protein Albumin Urine WBC (Auto) Crossmatch 06/15/16 06/15/16 06/15/16 04:43 04:43 22:49 WBC RBC Hgb 9.2 L POC Hgb Hct 28.4 L POC Hct MCH MCHC RDW Plt Count Lymph % (Auto) [place] % (Auto) Lymph # [place] # Baso # Seg Neutrophils % Seg Neuts % (Manual) Lymphocytes % (Manual) Monocytes % (Manual) Nucleated RBC % Seg Neutrophils # Seg Neutrophils # Man Lymphocytes # (Manual) Monocytes # (Manual) PT INR APTT Fibrinogen Heparin Anti-Xa Level 0.85 H POC ABG pH POC ABG pCO2 POC ABG pO2 POC Potassium POC Chloride Sodium Potassium Chloride Carbon Dioxide POC BUN BUN Creatinine Glucose POC Glucose 134 H Calcium Magnesium AST Alkaline Phosphatase Lactate Dehydrogenase Total Creatine Kinase Total Protein Albumin Urine WBC (Auto) Crossmatch 06/16/16 06/16/16 06/16/16 08:55 08:55 14:21 WBC RBC Hgb POC Hgb 5.8 L Hct POC Hct 17 L MCH MCHC RDW Plt Count Lymph % (Auto) [place] % (Auto) Lymph # [place] # Baso # Seg Neutrophils % Seg Neuts % (Manual) Lymphocytes % (Manual) Monocytes % (Manual) Nucleated RBC % Seg Neutrophils # Seg Neutrophils # Man Lymphocytes # (Manual) Monocytes # (Manual) PT INR APTT 20.0 L Fibrinogen Heparin Anti-Xa Level POC ABG pH POC ABG pCO2 POC ABG pO2 POC Potassium 2.9 L POC Chloride Sodium Potassium Chloride Carbon Dioxide POC BUN 7 L BUN Creatinine Glucose POC Glucose 249 H Calcium Magnesium AST Alkaline Phosphatase Lactate Dehydrogenase Total Creatine Kinase Total Protein Albumin Urine WBC (Auto) Crossmatch See Detail 06/16/16 06/16/16 06/16/16 16:55 17:41 17:48 WBC RBC Hgb POC Hgb 8.8 L Hct POC Hct 26 L < 15 L MCH MCHC RDW Plt Count Lymph % (Auto) [place] % (Auto) Lymph # [place] # Baso # Seg Neutrophils % Seg Neuts % (Manual) Lymphocytes % (Manual) Monocytes % (Manual) Nucleated RBC % Seg Neutrophils # Seg Neutrophils # Man Lymphocytes # (Manual) Monocytes # (Manual) PT INR APTT Fibrinogen Heparin Anti-Xa Level POC ABG pH 7.031 L POC ABG pCO2 POC ABG pO2 475 H POC Potassium 3.2 L POC Chloride 112 H 114 H Sodium Potassium Chloride Carbon Dioxide POC BUN 7 L 7 L BUN Creatinine Glucose POC Glucose 203 H 291 H Calcium Magnesium AST Alkaline Phosphatase Lactate Dehydrogenase Total Creatine Kinase Total Protein Albumin Urine WBC (Auto) Crossmatch 06/16/16 06/16/16 06/16/16 18:07 19:09 20:10 WBC 15.8 H RBC Hgb POC Hgb 6.5 L Hct POC Hct 19 L MCH MCHC RDW Plt Count 38 L Lymph % (Auto) 5.[address] [place] % (Auto) 9.3 H Lymph # 0.[address] [place] # 1.5 H Baso # Seg Neutrophils % 84.6 H Seg Neuts % (Manual) Lymphocytes % (Manual) Monocytes % (Manual) Nucleated RBC % Seg Neutrophils # 13.3 H Seg Neutrophils # Man Lymphocytes # (Manual) Monocytes # (Manual) PT INR APTT Fibrinogen Heparin Anti-Xa Level POC ABG pH POC ABG pCO2 POC ABG pO2 POC Potassium POC Chloride 113 H Sodium Potassium Chloride Carbon Dioxide POC BUN 7 L BUN Creatinine Glucose POC Glucose 263 H 231 H Calcium Magnesium AST Alkaline Phosphatase Lactate Dehydrogenase Total Creatine Kinase Total Protein Albumin Urine WBC (Auto) Crossmatch 06/16/16 06/16/16 06/16/16 20:10 20:18 21:10 WBC RBC Hgb POC Hgb Hct POC Hct MCH MCHC RDW Plt Count Lymph % (Auto) [place] % (Auto) Lymph # [place] # Baso # Seg Neutrophils % Seg Neuts % (Manual) Lymphocytes % (Manual) Monocytes % (Manual) Nucleated RBC % Seg Neutrophils # Seg Neutrophils # Man Lymphocytes # (Manual) Monocytes # (Manual) PT INR APTT Fibrinogen Heparin Anti-Xa Level POC ABG pH 7.236 L 7.280 L POC ABG pCO2 POC ABG pO2 139 H 145 H POC Potassium POC Chloride Sodium Potassium 3.4 L Chloride 114.5 H Carbon Dioxide 17 L D POC BUN BUN Creatinine Glucose 188 H POC Glucose Calcium 6.1 L D Magnesium AST Alkaline Phosphatase Lactate Dehydrogenase Total Creatine Kinase Total Protein Albumin Urine WBC (Auto) Crossmatch 06/16/16 06/17/16 06/17/16 22:53 04:48 05:35 WBC RBC Hgb POC Hgb Hct POC Hct MCH MCHC RDW Plt Count Lymph % (Auto) [place] % (Auto) Lymph # [place] # Baso # Seg Neutrophils % Seg Neuts % (Manual) Lymphocytes % (Manual) Monocytes % (Manual) Nucleated RBC % Seg Neutrophils # Seg Neutrophils # Man Lymphocytes # (Manual) Monocytes # (Manual) PT INR APTT Fibrinogen Heparin Anti-Xa Level POC ABG pH POC ABG pCO2 33.9 L 22.2 L POC ABG pO2 152 H 154 H POC Potassium POC Chloride Sodium 150 H Potassium 3.4 L Chloride 114.2 H Carbon Dioxide 16 L POC BUN BUN Creatinine Glucose 221 H POC Glucose Calcium 7.6 L D Magnesium AST Alkaline Phosphatase Lactate Dehydrogenase Total Creatine Kinase Total Protein Albumin Urine WBC (Auto) Crossmatch 06/17/16 06/18/16 06/18/16 09:22 07:26 08:25 WBC 20.3 H RBC 3.41 L Hgb 9.9 L POC Hgb Hct 29.7 L POC Hct MCH MCHC RDW Plt Count Lymph % (Auto) [place] % (Auto) Lymph # [place] # Baso # Seg Neutrophils % Seg Neuts % (Manual) 81.0 H Lymphocytes % (Manual) 6.0 L Monocytes % (Manual) 12.0 H Nucleated RBC % Seg Neutrophils # Seg Neutrophils # Man 16.4 H Lymphocytes # (Manual) Monocytes # (Manual) 2.4 H PT INR APTT Fibrinogen Heparin Anti-Xa Level POC ABG pH POC ABG pCO2 POC ABG pO2 POC Potassium POC Chloride Sodium Potassium 3.1 L Chloride Carbon Dioxide POC BUN BUN Creatinine Glucose 136 H POC Glucose 141 H Calcium 7.5 L Magnesium AST Alkaline Phosphatase Lactate Dehydrogenase Total Creatine Kinase Total Protein Albumin Urine WBC (Auto) Crossmatch 06/18/16 06/18/16 06/18/16 08:25 11:09 19:40 WBC RBC Hgb 6.5 L D POC Hgb Hct 19.3 L* D POC Hct MCH MCHC RDW Plt Count 131 L Lymph % (Auto) [place] % (Auto) Lymph # [place] # Baso # Seg Neutrophils % Seg Neuts % (Manual) Lymphocytes % (Manual) Monocytes % (Manual) Nucleated RBC % Seg Neutrophils # Seg Neutrophils # Man Lymphocytes # (Manual) Monocytes # (Manual) PT INR APTT Fibrinogen Heparin Anti-Xa Level POC ABG pH 7.490 H POC ABG pCO2 POC ABG pO2 131 H POC Potassium POC Chloride Sodium Potassium Chloride Carbon Dioxide POC BUN BUN Creatinine Glucose POC Glucose 125 H Calcium Magnesium AST Alkaline Phosphatase Lactate Dehydrogenase Total Creatine Kinase Total Protein Albumin Urine WBC (Auto) Crossmatch 06/18/16 06/19/16 06/19/16 21:10 07:07 07:28 WBC 13.6 H RBC 2.17 L Hgb 6.5 L POC Hgb Hct 18.8 L* POC Hct MCH MCHC 35 H RDW Plt Count 131 L Lymph % (Auto) 10.[address] [place] % (Auto) 9.3 H Lymph # [place] # 1.3 H Baso # Seg Neutrophils % 79.7 H Seg Neuts % (Manual) Lymphocytes % (Manual) Monocytes % (Manual) Nucleated RBC % Seg Neutrophils # 10.8 H Seg Neutrophils # Man Lymphocytes # (Manual) Monocytes # (Manual) PT INR APTT Fibrinogen Heparin Anti-Xa Level 0.75 H POC ABG pH POC ABG pCO2 POC ABG pO2 POC Potassium POC Chloride Sodium Potassium 3.5 L Chloride Carbon Dioxide POC BUN BUN Creatinine Glucose 104 H POC Glucose Calcium 7.6 L Magnesium 1.4 L AST Alkaline Phosphatase Lactate Dehydrogenase Total Creatine Kinase Total Protein Albumin Urine WBC (Auto) Crossmatch 06/20/16 06/20/16 06/20/16 04:15 18:15 18:15 WBC 16.6 H RBC 1.19 L Hgb 9.2 L 3.5 L* D POC Hgb Hct 27.5 L D 11.0 L* D POC Hct MCH MCHC RDW Plt Count 138 L Lymph % (Auto) [place] % (Auto) Lymph # [place] # Baso # Seg Neutrophils % Seg Neuts % (Manual) Lymphocytes % (Manual) Monocytes % (Manual) Nucleated RBC % Seg Neutrophils # Seg Neutrophils # Man Lymphocytes # (Manual) Monocytes # (Manual) PT INR APTT Fibrinogen Heparin Anti-Xa Level POC ABG pH POC ABG pCO2 POC ABG pO2 POC Potassium POC Chloride Sodium 146 H Potassium Chloride Carbon Dioxide 14 L D POC BUN BUN Creatinine Glucose 31 L* POC Glucose Calcium 6.7 L Magnesium AST Alkaline Phosphatase Lactate Dehydrogenase Total Creatine Kinase Total Protein Albumin Urine WBC (Auto) Crossmatch 06/20/16 06/20/16 06/20/16 18:15 19:33 19:36 WBC RBC Hgb POC Hgb Hct POC Hct MCH MCHC RDW Plt Count Lymph % (Auto) [place] % (Auto) Lymph # [place] # Baso # Seg Neutrophils % Seg Neuts % (Manual) Lymphocytes % (Manual) Monocytes % (Manual) Nucleated RBC % Seg Neutrophils # Seg Neutrophils # Man Lymphocytes # (Manual) Monocytes # (Manual) PT INR APTT Fibrinogen Heparin Anti-Xa Level POC ABG pH POC ABG pCO2 26.3 L POC ABG pO2 394 H POC Potassium POC Chloride Sodium Potassium Chloride Carbon Dioxide POC BUN BUN Creatinine Glucose POC Glucose 212 H Calcium Magnesium AST Alkaline Phosphatase Lactate Dehydrogenase Total Creatine Kinase Total Protein Albumin Urine WBC (Auto) Crossmatch See Detail 06/20/16 06/20/16 06/21/16 22:01 23:00 00:35 WBC RBC Hgb POC Hgb Hct POC Hct MCH MCHC RDW Plt Count Lymph % (Auto) [place] % (Auto) Lymph # [place] # Baso # Seg Neutrophils % Seg Neuts % (Manual) Lymphocytes % (Manual) Monocytes % (Manual) Nucleated RBC % Seg Neutrophils # Seg Neutrophils # Man Lymphocytes # (Manual) Monocytes # (Manual) PT 21.3 H INR 1.85 H APTT 48.4 H Fibrinogen Heparin Anti-Xa Level POC ABG pH POC ABG pCO2 POC ABG pO2 POC Potassium POC Chloride Sodium Potassium Chloride Carbon Dioxide POC BUN BUN Creatinine Glucose POC Glucose 149 H 147 H Calcium Magnesium AST Alkaline Phosphatase Lactate Dehydrogenase Total Creatine Kinase Total Protein Albumin Urine WBC (Auto) Crossmatch 06/21/16 06/21/16 06/21/16 04:30 04:30 06:01 WBC 21.7 H RBC 3.58 L Hgb POC Hgb Hct POC Hct MCH MCHC 35 H RDW Plt Count 116 L Lymph % (Auto) [place] % (Auto) Lymph # [place] # Baso # Seg Neutrophils % Seg Neuts % (Manual) Lymphocytes % (Manual) 8.0 L Monocytes % (Manual) Nucleated RBC % 3.0 H Seg Neutrophils # Seg Neutrophils # Man 13.7 H Lymphocytes # (Manual) Monocytes # (Manual) 1.5 H PT INR APTT Fibrinogen Heparin Anti-Xa Level POC ABG pH 7.541 H POC ABG pCO2 21.1 L POC ABG pO2 108 H POC Potassium POC Chloride Sodium Potassium 3.0 L Chloride 110.3 H Carbon Dioxide 18 L POC BUN BUN 18 H Creatinine Glucose 141 H POC Glucose Calcium 6.4 L Magnesium AST Alkaline Phosphatase Lactate Dehydrogenase Total Creatine Kinase Total Protein Albumin Urine WBC (Auto) Crossmatch 06/21/16 06/21/16 06/21/16 07:00 10:02 17:51 WBC RBC Hgb 8.3 L POC Hgb Hct 24.7 L D POC Hct MCH MCHC RDW Plt Count Lymph % (Auto) [place] % (Auto) Lymph # [place] # Baso # Seg Neutrophils % Seg Neuts % (Manual) Lymphocytes % (Manual) Monocytes % (Manual) Nucleated RBC % Seg Neutrophils # Seg Neutrophils # Man Lymphocytes # (Manual) Monocytes # (Manual) PT INR APTT Fibrinogen Heparin Anti-Xa Level POC ABG pH POC ABG pCO2 POC ABG pO2 POC Potassium POC Chloride Sodium Potassium Chloride Carbon Dioxide POC BUN BUN Creatinine Glucose POC Glucose 132 H 106 H Calcium Magnesium AST Alkaline Phosphatase Lactate Dehydrogenase Total Creatine Kinase Total Protein Albumin Urine WBC (Auto) Crossmatch 06/22/16 06/22/16 06/22/16 05:00 05:00 06:40 WBC 20.6 H RBC 3.54 L Hgb POC Hgb Hct POC Hct MCH MCHC RDW Plt Count 129 L Lymph % (Auto) [place] % (Auto) Lymph # [place] # Baso # Seg Neutrophils % Seg Neuts % (Manual) 87.0 H Lymphocytes % (Manual) 4.0 L Monocytes % (Manual) Nucleated RBC % 4.0 H Seg Neutrophils # Seg Neutrophils # Man 17.9 H Lymphocytes # (Manual) 0.8 L Monocytes # (Manual) 1.2 H PT INR APTT Fibrinogen Heparin Anti-Xa Level POC ABG pH POC ABG pCO2 21.9 L POC ABG pO2 118 H POC Potassium POC Chloride Sodium Potassium Chloride 109.9 H Carbon Dioxide 15 L POC BUN BUN 26 H Creatinine 2.2 H D Glucose POC Glucose Calcium 6.3 L Magnesium AST Alkaline Phosphatase Lactate Dehydrogenase Total Creatine Kinase Total Protein Albumin Urine WBC (Auto) Crossmatch 06/22/16 06/22/16 06/22/16 09:15 09:15 23:17 WBC RBC Hgb 9.1 L POC Hgb Hct 26.9 L POC Hct MCH MCHC RDW Plt Count 116 L Lymph % (Auto) [place] % (Auto) Lymph # [place] # Baso # Seg Neutrophils % Seg Neuts % (Manual) Lymphocytes % (Manual) Monocytes % (Manual) Nucleated RBC % Seg Neutrophils # Seg Neutrophils # Man Lymphocytes # (Manual) Monocytes # (Manual) PT 15.8 H INR 1.27 H APTT Fibrinogen Heparin Anti-Xa Level POC ABG pH POC ABG pCO2 POC ABG pO2 POC Potassium POC Chloride Sodium Potassium Chloride Carbon Dioxide POC BUN BUN Creatinine Glucose POC Glucose 134 H Calcium Magnesium AST Alkaline Phosphatase Lactate Dehydrogenase Total Creatine Kinase Total Protein Albumin Urine WBC (Auto) Crossmatch 06/23/16 06/23/16 06/23/16 05:43 05:43 09:44 WBC 13.8 H RBC 2.70 L Hgb 8.1 L POC Hgb Hct 24.2 L POC Hct MCH MCHC RDW Plt Count 93 L Lymph % (Auto) 6.[address] [place] % (Auto) Lymph # 0.[address] [place] # Baso # Seg Neutrophils % 89.2 H Seg Neuts % (Manual) Lymphocytes % (Manual) Monocytes % (Manual) Nucleated RBC % Seg Neutrophils # 12.3 H Seg Neutrophils # Man Lymphocytes # (Manual) Monocytes # (Manual) PT INR APTT Fibrinogen Heparin Anti-Xa Level POC ABG pH 7.593 H POC ABG pCO2 26.8 L POC ABG pO2 141 H POC Potassium POC Chloride Sodium 146 H Potassium Chloride Carbon Dioxide POC BUN BUN 32 H Creatinine 2.6 H Glucose 142 H POC Glucose Calcium 7.0 L Magnesium AST Alkaline Phosphatase Lactate Dehydrogenase Total Creatine Kinase Total Protein Albumin Urine WBC (Auto) Crossmatch 06/23/16 06/23/16 06/23/16 11:23 17:42 23:32 WBC RBC Hgb POC Hgb Hct POC Hct MCH MCHC RDW Plt Count Lymph % (Auto) [place] % (Auto) Lymph # [place] # Baso # Seg Neutrophils % Seg Neuts % (Manual) Lymphocytes % (Manual) Monocytes % (Manual) Nucleated RBC % Seg Neutrophils # Seg Neutrophils # Man Lymphocytes # (Manual) Monocytes # (Manual) PT INR APTT Fibrinogen Heparin Anti-Xa Level POC ABG pH POC ABG pCO2 POC ABG pO2 POC Potassium POC Chloride Sodium Potassium Chloride Carbon Dioxide POC BUN BUN Creatinine Glucose POC Glucose 138 H 133 H 111 H Calcium Magnesium AST Alkaline Phosphatase Lactate Dehydrogenase Total Creatine Kinase Total Protein Albumin Urine WBC (Auto) Crossmatch 06/24/16 06/24/16 06/24/16 06:27 08:10 08:10 WBC 16.6 H RBC 2.91 L Hgb 8.9 L POC Hgb Hct 26.4 L POC Hct MCH MCHC RDW 15.6 H Plt Count 115 L Lymph % (Auto) 4.[address] [place] % (Auto) Lymph # 0.[address] [place] # 1.0 H Baso # Seg Neutrophils % 89.2 H Seg Neuts % (Manual) Lymphocytes % (Manual) Monocytes % (Manual) Nucleated RBC % Seg Neutrophils # 14.9 H Seg Neutrophils # Man Lymphocytes # (Manual) Monocytes # (Manual) PT INR APTT Fibrinogen Heparin Anti-Xa Level POC ABG pH POC ABG pCO2 POC ABG pO2 POC Potassium POC Chloride Sodium 146 H Potassium Chloride Carbon Dioxide POC BUN BUN 37 H Creatinine 2.9 H Glucose POC Glucose 109 H Calcium 7.5 L Magnesium AST Alkaline Phosphatase Lactate Dehydrogenase Total Creatine Kinase Total Protein Albumin Urine WBC (Auto) Crossmatch 06/24/16 06/24/16 06/24/16 12:05 17:57 22:13 WBC RBC Hgb POC Hgb Hct POC Hct MCH MCHC RDW Plt Count Lymph % (Auto) [place] % (Auto) Lymph # [place] # Baso # Seg Neutrophils % Seg Neuts % (Manual) Lymphocytes % (Manual) Monocytes % (Manual) Nucleated RBC % Seg Neutrophils # Seg Neutrophils # Man Lymphocytes # (Manual) Monocytes # (Manual) PT INR APTT Fibrinogen Heparin Anti-Xa Level POC ABG pH POC ABG pCO2 POC ABG pO2 POC Potassium POC Chloride Sodium Potassium Chloride Carbon Dioxide POC BUN BUN Creatinine Glucose POC Glucose 117 H 124 H 116 H Calcium Magnesium AST Alkaline Phosphatase Lactate Dehydrogenase Total Creatine Kinase Total Protein Albumin Urine WBC (Auto) Crossmatch 06/25/16 06/25/16 06/25/16 06:42 06:49 12:14 WBC RBC Hgb POC Hgb Hct POC Hct MCH MCHC RDW Plt Count Lymph % (Auto) [place] % (Auto) Lymph # [place] # Baso # Seg Neutrophils % Seg Neuts % (Manual) Lymphocytes % (Manual) Monocytes % (Manual) Nucleated RBC % Seg Neutrophils # Seg Neutrophils # Man Lymphocytes # (Manual) Monocytes # (Manual) PT INR APTT Fibrinogen Heparin Anti-Xa Level POC ABG pH POC ABG pCO2 POC ABG pO2 POC Potassium POC Chloride Sodium Potassium Chloride Carbon Dioxide POC BUN BUN 46 H Creatinine 3.6 H Glucose 133 H POC Glucose 137 H 136 H Calcium 7.4 L Magnesium AST Alkaline Phosphatase Lactate Dehydrogenase Total Creatine Kinase Total Protein Albumin Urine WBC (Auto) Crossmatch 06/25/16 06/25/16 06/26/16 16:07 21:32 05:55 WBC RBC Hgb POC Hgb Hct POC Hct MCH MCHC RDW Plt Count Lymph % (Auto) [place] % (Auto) Lymph # [place] # Baso # Seg Neutrophils % Seg Neuts % (Manual) Lymphocytes % (Manual) Monocytes % (Manual) Nucleated RBC % Seg Neutrophils # Seg Neutrophils # Man Lymphocytes # (Manual) Monocytes # (Manual) PT INR APTT Fibrinogen Heparin Anti-Xa Level POC ABG pH POC ABG pCO2 POC ABG pO2 POC Potassium POC Chloride Sodium Potassium Chloride Carbon Dioxide 20 L POC BUN BUN 55 H Creatinine 4.2 H Glucose 120 H POC Glucose 146 H 146 H Calcium 7.5 L Magnesium AST Alkaline Phosphatase Lactate Dehydrogenase Total Creatine Kinase Total Protein Albumin Urine WBC (Auto) Crossmatch 06/26/16 06/26/16 06/26/16 06:30 11:38 16:45 WBC RBC Hgb POC Hgb Hct POC Hct MCH MCHC RDW Plt Count Lymph % (Auto) [place] % (Auto) Lymph # [place] # Baso # Seg Neutrophils % Seg Neuts % (Manual) Lymphocytes % (Manual) Monocytes % (Manual) Nucleated RBC % Seg Neutrophils # Seg Neutrophils # Man Lymphocytes # (Manual) Monocytes # (Manual) PT INR APTT Fibrinogen Heparin Anti-Xa Level POC ABG pH POC ABG pCO2 POC ABG pO2 POC Potassium POC Chloride Sodium Potassium Chloride Carbon Dioxide POC BUN BUN Creatinine Glucose POC Glucose 128 H 143 H 121 H Calcium Magnesium AST Alkaline Phosphatase Lactate Dehydrogenase Total Creatine Kinase Total Protein Albumin Urine WBC (Auto) Crossmatch 06/26/16 06/26/16 06/27/16 22:57 22:57 00:47 WBC RBC Hgb 8.4 L POC Hgb Hct 25.1 L POC Hct MCH MCHC RDW Plt Count Lymph % (Auto) [place] % (Auto) Lymph # [place] # Baso # Seg Neutrophils % Seg Neuts % (Manual) Lymphocytes % (Manual) Monocytes % (Manual) Nucleated RBC % Seg Neutrophils # Seg Neutrophils # Man Lymphocytes # (Manual) Monocytes # (Manual) PT 19.9 H INR 1.69 H APTT Fibrinogen Heparin Anti-Xa Level POC ABG pH POC ABG pCO2 POC ABG pO2 POC Potassium POC Chloride Sodium Potassium Chloride Carbon Dioxide POC BUN BUN Creatinine Glucose POC Glucose 110 H Calcium Magnesium AST Alkaline Phosphatase Lactate Dehydrogenase Total Creatine Kinase Total Protein Albumin Urine WBC (Auto) Crossmatch 06/27/16 06/27/16 06/27/16 05:43 05:43 06:40 WBC RBC Hgb POC Hgb Hct POC Hct MCH MCHC RDW Plt Count Lymph % (Auto) [place] % (Auto) Lymph # [place] # Baso # Seg Neutrophils % Seg Neuts % (Manual) Lymphocytes % (Manual) Monocytes % (Manual) Nucleated RBC % Seg Neutrophils # Seg Neutrophils # Man Lymphocytes # (Manual) Monocytes # (Manual) PT INR APTT Fibrinogen Heparin Anti-Xa Level 2.00 H POC ABG pH POC ABG pCO2 POC ABG pO2 POC Potassium POC Chloride Sodium Potassium Chloride Carbon Dioxide 20 L POC BUN BUN 58 H Creatinine 4.8 H Glucose POC Glucose 109 H Calcium 8.1 L Magnesium AST Alkaline Phosphatase Lactate Dehydrogenase Total Creatine Kinase Total Protein Albumin Urine WBC (Auto) Crossmatch 06/27/16 06/27/16 06/27/16 08:15 16:46 17:47 WBC RBC Hgb POC Hgb Hct POC Hct MCH MCHC RDW Plt Count Lymph % (Auto) [place] % (Auto) Lymph # [place] # Baso # Seg Neutrophils % Seg Neuts % (Manual) Lymphocytes % (Manual) Monocytes % (Manual) Nucleated RBC % Seg Neutrophils # Seg Neutrophils # Man Lymphocytes # (Manual) Monocytes # (Manual) PT INR APTT Fibrinogen Heparin Anti-Xa Level > 2.00 H 1.87 H POC ABG pH POC ABG pCO2 POC ABG pO2 POC Potassium POC Chloride Sodium Potassium Chloride Carbon Dioxide POC BUN BUN Creatinine Glucose POC Glucose 231 H Calcium Magnesium AST Alkaline Phosphatase Lactate Dehydrogenase Total Creatine Kinase Total Protein Albumin Urine WBC (Auto) Crossmatch 06/27/16 06/27/16 06/28/16 21:23 23:54 06:27 WBC RBC Hgb POC Hgb Hct POC Hct MCH MCHC RDW Plt Count Lymph % (Auto) [place] % (Auto) Lymph # [place] # Baso # Seg Neutrophils % Seg Neuts % (Manual) Lymphocytes % (Manual) Monocytes % (Manual) Nucleated RBC % Seg Neutrophils # Seg Neutrophils # Man Lymphocytes # (Manual) Monocytes # (Manual) PT INR APTT Fibrinogen Heparin Anti-Xa Level 1.70 H POC ABG pH POC ABG pCO2 POC ABG pO2 POC Potassium POC Chloride Sodium Potassium Chloride Carbon Dioxide POC BUN BUN 62 H Creatinine 4.5 H Glucose 111 H POC Glucose 122 H Calcium 8.3 L Magnesium AST Alkaline Phosphatase Lactate Dehydrogenase Total Creatine Kinase Total Protein Albumin Urine WBC (Auto) Crossmatch 06/28/16 06/28/16 06/28/16 06:27 11:47 14:14 WBC RBC Hgb 7.7 L POC Hgb Hct 22.9 L POC Hct MCH MCHC RDW Plt Count Lymph % (Auto) [place] % (Auto) Lymph # [place] # Baso # Seg Neutrophils % Seg Neuts % (Manual) Lymphocytes % (Manual) Monocytes % (Manual) Nucleated RBC % Seg Neutrophils # Seg Neutrophils # Man Lymphocytes # (Manual) Monocytes # (Manual) PT INR APTT Fibrinogen Heparin Anti-Xa Level POC ABG pH 7.461 H POC ABG pCO2 31.9 L POC ABG pO2 73 L POC Potassium POC Chloride Sodium Potassium Chloride Carbon Dioxide POC BUN BUN Creatinine Glucose POC Glucose 155 H Calcium Magnesium AST Alkaline Phosphatase Lactate Dehydrogenase Total Creatine Kinase Total Protein Albumin Urine WBC (Auto) Crossmatch 06/28/16 06/28/16 06/28/16 16:27 20:47 22:59 WBC RBC Hgb POC Hgb Hct POC Hct MCH MCHC RDW Plt Count Lymph % (Auto) [place] % (Auto) Lymph # [place] # Baso # Seg Neutrophils % Seg Neuts % (Manual) Lymphocytes % (Manual) Monocytes % (Manual) Nucleated RBC % Seg Neutrophils # Seg Neutrophils # Man Lymphocytes # (Manual) Monocytes # (Manual) PT INR APTT Fibrinogen Heparin Anti-Xa Level 1.16 H POC ABG pH POC ABG pCO2 POC ABG pO2 POC Potassium POC Chloride Sodium Potassium Chloride Carbon Dioxide POC BUN BUN Creatinine Glucose POC Glucose 193 H 126 H Calcium Magnesium AST Alkaline Phosphatase Lactate Dehydrogenase Total Creatine Kinase Total Protein Albumin Urine WBC (Auto) Crossmatch 06/29/16 06/29/16 06/29/16 05:51 09:10 09:10 WBC RBC Hgb POC Hgb Hct POC Hct MCH MCHC RDW Plt Count Lymph % (Auto) [place] % (Auto) Lymph # [place] # Baso # Seg Neutrophils % Seg Neuts % (Manual) Lymphocytes % (Manual) Monocytes % (Manual) Nucleated RBC % Seg Neutrophils # Seg Neutrophils # Man Lymphocytes # (Manual) Monocytes # (Manual) PT INR APTT Fibrinogen Heparin Anti-Xa Level 0.92 H POC ABG pH POC ABG pCO2 POC ABG pO2 POC Potassium POC Chloride Sodium Potassium Chloride Carbon Dioxide POC BUN BUN 53 H Creatinine 3.7 H Glucose 139 H POC Glucose 121 H Calcium 8.2 L Magnesium AST Alkaline Phosphatase Lactate Dehydrogenase Total Creatine Kinase Total Protein Albumin Urine WBC (Auto) Crossmatch 06/29/16 06/30/16 06/30/16 21:22 05:09 08:07 WBC RBC Hgb 7.3 L POC Hgb Hct 21.9 L POC Hct MCH MCHC RDW Plt Count Lymph % (Auto) [place] % (Auto) Lymph # [place] # Baso # Seg Neutrophils % Seg Neuts % (Manual) Lymphocytes % (Manual) Monocytes % (Manual) Nucleated RBC % Seg Neutrophils # Seg Neutrophils # Man Lymphocytes # (Manual) Monocytes # (Manual) PT INR APTT Fibrinogen Heparin Anti-Xa Level POC ABG pH POC ABG pCO2 POC ABG pO2 POC Potassium POC Chloride Sodium Potassium Chloride Carbon Dioxide POC BUN BUN Creatinine Glucose POC Glucose 108 H 106 H Calcium Magnesium AST Alkaline Phosphatase Lactate Dehydrogenase Total Creatine Kinase Total Protein Albumin Urine WBC (Auto) Crossmatch 06/30/16 06/30/16 06/30/16 10:48 12:13 16:48 WBC RBC Hgb POC Hgb Hct POC Hct MCH MCHC RDW Plt Count Lymph % (Auto) [place] % (Auto) Lymph # [place] # Baso # Seg Neutrophils % Seg Neuts % (Manual) Lymphocytes % (Manual) Monocytes % (Manual) Nucleated RBC % Seg Neutrophils # Seg Neutrophils # Man Lymphocytes # (Manual) Monocytes # (Manual) PT INR APTT Fibrinogen Heparin Anti-Xa Level POC ABG pH POC ABG pCO2 POC ABG pO2 POC Potassium POC Chloride Sodium Potassium Chloride Carbon Dioxide POC BUN BUN 46 H Creatinine 3.0 H Glucose POC Glucose 153 H 152 H Calcium Magnesium AST Alkaline Phosphatase Lactate Dehydrogenase Total Creatine Kinase Total Protein Albumin Urine WBC (Auto) Crossmatch 06/30/16 07/01/16 07/01/16 21:47 05:47 07:44 WBC 19.8 H RBC 2.45 L Hgb 7.2 L POC Hgb Hct 22.2 L POC Hct MCH MCHC RDW Plt Count 481 H Lymph % (Auto) 5.[address] [place] % (Auto) Lymph # 1.[address] [place] # 1.4 H Baso # Seg Neutrophils % 86.8 H Seg Neuts % (Manual) Lymphocytes % (Manual) Monocytes % (Manual) Nucleated RBC % Seg Neutrophils # 17.1 H Seg Neutrophils # Man Lymphocytes # (Manual) Monocytes # (Manual) PT INR APTT Fibrinogen Heparin Anti-Xa Level POC ABG pH POC ABG pCO2 POC ABG pO2 POC Potassium POC Chloride Sodium Potassium Chloride Carbon Dioxide POC BUN BUN Creatinine Glucose POC Glucose 162 H 124 H Calcium Magnesium AST Alkaline Phosphatase Lactate Dehydrogenase Total Creatine Kinase Total Protein Albumin Urine WBC (Auto) Crossmatch 07/01/16 07/01/16 07/01/16 07:44 11:55 16:16 WBC RBC Hgb POC Hgb Hct POC Hct MCH MCHC RDW Plt Count Lymph % (Auto) [place] % (Auto) Lymph # [place] # Baso # Seg Neutrophils % Seg Neuts % (Manual) Lymphocytes % (Manual) Monocytes % (Manual) Nucleated RBC % Seg Neutrophils # Seg Neutrophils # Man Lymphocytes # (Manual) Monocytes # (Manual) PT INR APTT Fibrinogen Heparin Anti-Xa Level POC ABG pH POC ABG pCO2 POC ABG pO2 POC Potassium POC Chloride Sodium Potassium 3.1 L Chloride Carbon Dioxide POC BUN BUN 38 H Creatinine 2.2 H Glucose 114 H POC Glucose 114 H 143 H Calcium Magnesium AST Alkaline Phosphatase Lactate Dehydrogenase Total Creatine Kinase Total Protein Albumin Urine WBC (Auto) Crossmatch 07/01/16 07/02/16 07/02/16 21:42 05:40 06:46 WBC 18.1 H RBC 2.45 L Hgb 7.3 L POC Hgb Hct 21.8 L POC Hct MCH MCHC RDW Plt Count 490 H Lymph % (Auto) 6.[address] [place] % (Auto) Lymph # 1.[address] [place] # 1.1 H Baso # 0.2 H Seg Neutrophils % 86.0 H Seg Neuts % (Manual) Lymphocytes % (Manual) Monocytes % (Manual) Nucleated RBC % Seg Neutrophils # 15.6 H Seg Neutrophils # Man Lymphocytes # (Manual) Monocytes # (Manual) PT INR APTT Fibrinogen Heparin Anti-Xa Level POC ABG pH POC ABG pCO2 POC ABG pO2 POC Potassium POC Chloride Sodium Potassium Chloride Carbon Dioxide POC BUN BUN Creatinine Glucose POC Glucose 135 H 135 H Calcium Magnesium AST Alkaline Phosphatase Lactate Dehydrogenase Total Creatine Kinase Total Protein Albumin Urine WBC (Auto) Crossmatch 07/02/16 07/02/16 07/02/16 06:46 06:49 11:23 WBC RBC Hgb POC Hgb Hct POC Hct MCH MCHC RDW Plt Count Lymph % (Auto) [place] % (Auto) Lymph # [place] # Baso # Seg Neutrophils % Seg Neuts % (Manual) Lymphocytes % (Manual) Monocytes % (Manual) Nucleated RBC % Seg Neutrophils # Seg Neutrophils # Man Lymphocytes # (Manual) Monocytes # (Manual) PT INR APTT Fibrinogen Heparin Anti-Xa Level POC ABG pH POC ABG pCO2 POC ABG pO2 POC Potassium POC Chloride Sodium Potassium 2.8 L* Chloride Carbon Dioxide POC BUN BUN 30 H Creatinine 1.8 H Glucose 121 H POC Glucose 121 H Calcium 8.1 L Magnesium 1.3 L AST Alkaline Phosphatase Lactate Dehydrogenase Total Creatine Kinase Total Protein Albumin Urine WBC (Auto) Crossmatch 07/02/16 07/02/16 07/03/16 17:02 21:31 05:35 WBC RBC Hgb POC Hgb Hct POC Hct MCH MCHC RDW Plt Count Lymph % (Auto) [place] % (Auto) Lymph # [place] # Baso # Seg Neutrophils % Seg Neuts % (Manual) Lymphocytes % (Manual) Monocytes % (Manual) Nucleated RBC % Seg Neutrophils # Seg Neutrophils # Man Lymphocytes # (Manual) Monocytes # (Manual) PT INR APTT Fibrinogen Heparin Anti-Xa Level POC ABG pH POC ABG pCO2 POC ABG pO2 POC Potassium POC Chloride Sodium Potassium Chloride Carbon Dioxide POC BUN BUN Creatinine Glucose POC Glucose 121 H 159 H 149 H Calcium Magnesium AST Alkaline Phosphatase Lactate Dehydrogenase Total Creatine Kinase Total Protein Albumin Urine WBC (Auto) Crossmatch 07/03/16 07/03/16 07/03/16 06:45 06:45 06:45 WBC 16.8 H RBC 2.21 L Hgb 6.5 L POC Hgb Hct 19.4 L* POC Hct MCH MCHC RDW Plt Count 503 H Lymph % (Auto) 6.[address] [place] % (Auto) Lymph # 1.[address] [place] # 1.1 H Baso # Seg Neutrophils % 85.6 H Seg Neuts % (Manual) Lymphocytes % (Manual) Monocytes % (Manual) Nucleated RBC % Seg Neutrophils # 14.4 H Seg Neutrophils # Man Lymphocytes # (Manual) Monocytes # (Manual) PT INR APTT Fibrinogen Heparin Anti-Xa Level POC ABG pH POC ABG pCO2 POC ABG pO2 POC Potassium POC Chloride Sodium Potassium 2.9 L* Chloride Carbon Dioxide POC BUN BUN 21 H Creatinine 1.6 H Glucose 126 H POC Glucose Calcium 8.0 L Magnesium 1.6 L AST Alkaline Phosphatase Lactate Dehydrogenase Total Creatine Kinase Total Protein Albumin Urine WBC (Auto) Crossmatch 07/03/16 07/03/16 07/03/16 12:54 19:00 20:01 WBC RBC Hgb POC Hgb Hct POC Hct MCH MCHC RDW Plt Count Lymph % (Auto) [place] % (Auto) Lymph # [place] # Baso # Seg Neutrophils % Seg Neuts % (Manual) Lymphocytes % (Manual) Monocytes % (Manual) Nucleated RBC % Seg Neutrophils # Seg Neutrophils # Man Lymphocytes # (Manual) Monocytes # (Manual) PT INR APTT Fibrinogen Heparin Anti-Xa Level POC ABG pH 7.302 L POC ABG pCO2 49.8 H POC ABG pO2 422 H POC Potassium POC Chloride Sodium Potassium Chloride Carbon Dioxide POC BUN BUN Creatinine Glucose POC Glucose 129 H Calcium Magnesium AST Alkaline Phosphatase Lactate Dehydrogenase Total Creatine Kinase Total Protein Albumin Urine WBC (Auto) Crossmatch See Detail 07/03/16 07/04/16 07/04/16 23:09 04:30 04:30 WBC 19.6 H RBC 3.21 L Hgb 9.4 L POC Hgb Hct 28.2 L POC Hct MCH MCHC RDW Plt Count Lymph % (Auto) 6.[address] [place] % (Auto) Lymph # [place] # 1.2 H Baso # Seg Neutrophils % 86.4 H Seg Neuts % (Manual) Lymphocytes % (Manual) Monocytes % (Manual) Nucleated RBC % Seg Neutrophils # 16.9 H Seg Neutrophils # Man Lymphocytes # (Manual) Monocytes # (Manual) PT INR APTT Fibrinogen Heparin Anti-Xa Level POC ABG pH POC ABG pCO2 POC ABG pO2 POC Potassium POC Chloride Sodium Potassium 3.5 L D Chloride 111.2 H Carbon Dioxide 20 L POC BUN BUN 18 H Creatinine Glucose POC Glucose 111 H Calcium 7.0 L Magnesium AST Alkaline Phosphatase Lactate Dehydrogenase Total Creatine Kinase Total Protein Albumin Urine WBC (Auto) Crossmatch 07/04/16 07/04/16 07/04/16 05:44 12:50 14:33 WBC RBC Hgb POC Hgb Hct POC Hct MCH MCHC RDW Plt Count Lymph % (Auto) [place] % (Auto) Lymph # [place] # Baso # Seg Neutrophils % Seg Neuts % (Manual) Lymphocytes % (Manual) Monocytes % (Manual) Nucleated RBC % Seg Neutrophils # Seg Neutrophils # Man Lymphocytes # (Manual) Monocytes # (Manual) PT INR APTT Fibrinogen Heparin Anti-Xa Level POC ABG pH 7.465 H 7.468 H POC ABG pCO2 29.5 L 29.1 L 33.1 L POC ABG pO2 110 H 39 L POC Potassium POC Chloride Sodium Potassium Chloride Carbon Dioxide POC BUN BUN Creatinine Glucose POC Glucose Calcium Magnesium AST Alkaline Phosphatase Lactate Dehydrogenase Total Creatine Kinase Total Protein Albumin Urine WBC (Auto) Crossmatch 07/04/16 07/05/16 07/05/16 16:49 00:20 04:19 WBC 16.2 H RBC 3.44 L Hgb POC Hgb Hct POC Hct MCH MCHC RDW Plt Count Lymph % (Auto) 5.[address] [place] % (Auto) 7.5 H Lymph # 0.[address] [place] # 1.2 H Baso # Seg Neutrophils % 86.5 H Seg Neuts % (Manual) Lymphocytes % (Manual) Monocytes % (Manual) Nucleated RBC % Seg Neutrophils # 14.0 H Seg Neutrophils # Man Lymphocytes # (Manual) Monocytes # (Manual) PT INR APTT Fibrinogen Heparin Anti-Xa Level POC ABG pH POC ABG pCO2 31.1 L POC ABG pO2 110 H POC Potassium POC Chloride Sodium Potassium Chloride Carbon Dioxide POC BUN BUN Creatinine Glucose POC Glucose 168 H Calcium Magnesium AST Alkaline Phosphatase Lactate Dehydrogenase Total Creatine Kinase Total Protein Albumin Urine WBC (Auto) Crossmatch 07/05/16 07/05/16 07/05/16 04:19 06:01 09:54 WBC RBC Hgb POC Hgb Hct POC Hct MCH MCHC RDW Plt Count Lymph % (Auto) [place] % (Auto) Lymph # [place] # Baso # Seg Neutrophils % Seg Neuts % (Manual) Lymphocytes % (Manual) Monocytes % (Manual) Nucleated RBC % Seg Neutrophils # Seg Neutrophils # Man Lymphocytes # (Manual) Monocytes # (Manual) PT INR APTT Fibrinogen Heparin Anti-Xa Level POC ABG pH POC ABG pCO2 POC ABG pO2 POC Potassium POC Chloride Sodium 146 H Potassium 3.5 L Chloride 109.1 H Carbon Dioxide POC BUN BUN Creatinine Glucose 135 H POC Glucose 146 H 284 H Calcium 7.8 L Magnesium AST Alkaline Phosphatase Lactate Dehydrogenase Total Creatine Kinase Total Protein Albumin Urine WBC (Auto) Crossmatch 07/05/16 07/06/16 07/06/16 13:35 04:40 04:40 WBC 17.7 H RBC 3.32 L Hgb 9.8 L POC Hgb Hct 29.8 L POC Hct MCH MCHC RDW Plt Count Lymph % (Auto) [place] % (Auto) Lymph # [place] # Baso # Seg Neutrophils % Seg Neuts % (Manual) 85.0 H Lymphocytes % (Manual) 4.0 L Monocytes % (Manual) 10.0 H Nucleated RBC % Seg Neutrophils # Seg Neutrophils # Man 15.0 H Lymphocytes # (Manual) 0.7 L Monocytes # (Manual) 1.8 H PT INR APTT Fibrinogen Heparin Anti-Xa Level POC ABG pH POC ABG pCO2 POC ABG pO2 POC Potassium POC Chloride Sodium Potassium 3.5 L Chloride Carbon Dioxide 21 L POC BUN BUN Creatinine Glucose 108 H POC Glucose 130 H Calcium 7.8 L Magnesium AST Alkaline Phosphatase Lactate Dehydrogenase Total Creatine Kinase Total Protein Albumin Urine WBC (Auto) Crossmatch 07/06/16 07/06/16 07/06/16 07:46 11:49 15:31 WBC RBC Hgb POC Hgb Hct POC Hct MCH MCHC RDW Plt Count Lymph % (Auto) [place] % (Auto) Lymph # [place] # Baso # Seg Neutrophils % Seg Neuts % (Manual) Lymphocytes % (Manual) Monocytes % (Manual) Nucleated RBC % Seg Neutrophils # Seg Neutrophils # Man Lymphocytes # (Manual) Monocytes # (Manual) PT INR APTT Fibrinogen Heparin Anti-Xa Level POC ABG pH POC ABG pCO2 POC ABG pO2 POC Potassium POC Chloride Sodium Potassium Chloride Carbon Dioxide POC BUN BUN Creatinine Glucose POC Glucose 149 H 146 H 135 H Calcium Magnesium AST Alkaline Phosphatase Lactate Dehydrogenase Total Creatine Kinase Total Protein Albumin Urine WBC (Auto) Crossmatch 07/06/16 07/06/16 07/07/16 17:17 20:59 04:53 WBC 15.5 H RBC 3.55 L Hgb POC Hgb Hct POC Hct MCH MCHC RDW Plt Count Lymph % (Auto) 4.[address] [place] % (Auto) Lymph # 0.[address] [place] # 0.9 H Baso # Seg Neutrophils % 87.9 H Seg Neuts % (Manual) Lymphocytes % (Manual) Monocytes % (Manual) Nucleated RBC % Seg Neutrophils # 13.7 H Seg Neutrophils # Man Lymphocytes # (Manual) Monocytes # (Manual) PT INR APTT Fibrinogen Heparin Anti-Xa Level POC ABG pH POC ABG pCO2 POC ABG pO2 POC Potassium POC Chloride Sodium Potassium Chloride Carbon Dioxide POC BUN BUN Creatinine Glucose POC Glucose 140 H Calcium Magnesium AST Alkaline Phosphatase Lactate Dehydrogenase Total Creatine Kinase Total Protein Albumin Urine WBC (Auto) 67.0 H Crossmatch 07/07/16 07/07/16 07/07/16 04:53 06:13 07:15 WBC RBC Hgb POC Hgb Hct POC Hct MCH MCHC RDW Plt Count Lymph % (Auto) [place] % (Auto) Lymph # [place] # Baso # Seg Neutrophils % Seg Neuts % (Manual) Lymphocytes % (Manual) Monocytes % (Manual) Nucleated RBC % Seg Neutrophils # Seg Neutrophils # Man Lymphocytes # (Manual) Monocytes # (Manual) PT INR APTT Fibrinogen Heparin Anti-Xa Level POC ABG pH POC ABG pCO2 POC ABG pO2 POC Potassium POC Chloride Sodium Potassium 3.4 L Chloride Carbon Dioxide POC BUN BUN Creatinine Glucose 104 H POC Glucose 122 H 134 H Calcium 8.0 L Magnesium AST Alkaline Phosphatase Lactate Dehydrogenase Total Creatine Kinase Total Protein Albumin Urine WBC (Auto) Crossmatch 07/07/16 07/07/16 07/07/16 08:06 08:06 10:31 WBC RBC Hgb POC Hgb Hct POC Hct MCH MCHC RDW Plt Count Lymph % (Auto) [place] % (Auto) Lymph # [place] # Baso # Seg Neutrophils % Seg Neuts % (Manual) Lymphocytes % (Manual) Monocytes % (Manual) Nucleated RBC % Seg Neutrophils # Seg Neutrophils # Man Lymphocytes # (Manual) Monocytes # (Manual) PT INR APTT Fibrinogen Heparin Anti-Xa Level POC ABG pH POC ABG pCO2 POC ABG pO2 POC Potassium POC Chloride Sodium Potassium Chloride Carbon Dioxide POC BUN BUN Creatinine Glucose 111 H POC Glucose 145 H Calcium 7.9 L Magnesium AST 53 H Alkaline Phosphatase 164 H Lactate Dehydrogenase Total Creatine Kinase Total Protein 6.2 L Albumin 1.4 L Urine WBC (Auto) Crossmatch See Detail 07/07/16 07/07/16 07/07/16 12:08 13:57 16:44 WBC RBC Hgb 9.7 L POC Hgb Hct 30.1 L POC Hct MCH MCHC RDW Plt Count Lymph % (Auto) [place] % (Auto) Lymph # [place] # Baso # Seg Neutrophils % Seg Neuts % (Manual) Lymphocytes % (Manual) Monocytes % (Manual) Nucleated RBC % Seg Neutrophils # Seg Neutrophils # Man Lymphocytes # (Manual) Monocytes # (Manual) PT INR APTT Fibrinogen Heparin Anti-Xa Level POC ABG pH POC ABG pCO2 POC ABG pO2 POC Potassium POC Chloride Sodium Potassium Chloride Carbon Dioxide POC BUN BUN Creatinine Glucose POC Glucose 159 H 173 H Calcium Magnesium AST Alkaline Phosphatase Lactate Dehydrogenase Total Creatine Kinase Total Protein Albumin Urine WBC (Auto) Crossmatch 07/07/16 07/08/16 07/08/16 23:31 07:27 12:16 WBC RBC Hgb POC Hgb Hct POC Hct MCH MCHC RDW Plt Count Lymph % (Auto) [place] % (Auto) Lymph # [place] # Baso # Seg Neutrophils % Seg Neuts % (Manual) Lymphocytes % (Manual) Monocytes % (Manual) Nucleated RBC % Seg Neutrophils # Seg Neutrophils # Man Lymphocytes # (Manual) Monocytes # (Manual) PT INR APTT Fibrinogen Heparin Anti-Xa Level POC ABG pH POC ABG pCO2 POC ABG pO2 POC Potassium POC Chloride Sodium Potassium Chloride Carbon Dioxide POC BUN BUN Creatinine Glucose POC Glucose 163 H 149 H 150 H Calcium Magnesium AST Alkaline Phosphatase Lactate Dehydrogenase Total Creatine Kinase Total Protein Albumin Urine WBC (Auto) Crossmatch 07/08/16 07/08/16 07/08/16 12:50 16:46 21:45 WBC RBC Hgb POC Hgb Hct POC Hct MCH MCHC RDW Plt Count Lymph % (Auto) [place] % (Auto) Lymph # [place] # Baso # Seg Neutrophils % Seg Neuts % (Manual) Lymphocytes % (Manual) Monocytes % (Manual) Nucleated RBC % Seg Neutrophils # Seg Neutrophils # Man Lymphocytes # (Manual) Monocytes # (Manual) PT INR APTT Fibrinogen Heparin Anti-Xa Level POC ABG pH POC ABG pCO2 POC ABG pO2 POC Potassium POC Chloride Sodium Potassium Chloride Carbon Dioxide 21 L POC BUN BUN Creatinine Glucose 126 H POC Glucose 143 H 134 H Calcium 7.5 L Magnesium AST Alkaline Phosphatase Lactate Dehydrogenase Total Creatine Kinase Total Protein Albumin Urine WBC (Auto) Crossmatch 07/09/16 07/09/16 07/09/16 07:31 07:31 08:07 WBC RBC Hgb POC Hgb Hct POC Hct MCH MCHC RDW Plt Count Lymph % (Auto) [place] % (Auto) Lymph # [place] # Baso # Seg Neutrophils % Seg Neuts % (Manual) Lymphocytes % (Manual) Monocytes % (Manual) Nucleated RBC % Seg Neutrophils # Seg Neutrophils # Man Lymphocytes # (Manual) Monocytes # (Manual) PT INR APTT Fibrinogen Heparin Anti-Xa Level POC ABG pH POC ABG pCO2 POC ABG pO2 POC Potassium POC Chloride Sodium Potassium Chloride Carbon Dioxide POC BUN BUN Creatinine Glucose 117 H POC Glucose 132 H Calcium 7.5 L Magnesium AST Alkaline Phosphatase 136 H Lactate Dehydrogenase 285 H Total Creatine Kinase 297 H Total Protein 5.4 L Albumin 1.5 L Urine WBC (Auto) Crossmatch 12/28/16 12/28/16 12/28/16 09:55 11:10 16:26 WBC 13.4 H RBC 1.95 L Hgb 5.8 L* D POC Hgb Hct 17.7 L* D POC Hct MCH MCHC RDW 15.5 H Plt Count Lymph % (Auto) 9.[address] [place] % (Auto) 8.3 H Lymph # [place] # 1.1 H Baso # Seg Neutrophils % 81.2 H Seg Neuts % (Manual) Lymphocytes % (Manual) Monocytes % (Manual) Nucleated RBC % Seg Neutrophils # 10.9 H Seg Neutrophils # Man Lymphocytes # (Manual) Monocytes # (Manual) PT INR APTT Fibrinogen Heparin Anti-Xa Level POC ABG pH POC ABG pCO2 POC ABG pO2 POC Potassium POC Chloride Sodium Potassium Chloride Carbon Dioxide POC BUN BUN Creatinine Glucose POC Glucose 240 H 113 H Calcium Magnesium AST Alkaline Phosphatase Lactate Dehydrogenase Total Creatine Kinase Total Protein Albumin Urine WBC (Auto) Crossmatch 07/09/16 07/10/16 07/10/16 21:45 04:10 09:03 WBC 15.1 H RBC 3.00 L Hgb 8.8 L D POC Hgb Hct 26.2 L D POC Hct MCH MCHC RDW 15.4 H Plt Count Lymph % (Auto) 8.[address] [place] % (Auto) 8.4 H Lymph # [place] # 1.3 H Baso # Seg Neutrophils % 82.5 H Seg Neuts % (Manual) Lymphocytes % (Manual) Monocytes % (Manual) Nucleated RBC % Seg Neutrophils # 12.5 H Seg Neutrophils # Man Lymphocytes # (Manual) Monocytes # (Manual) PT INR APTT Fibrinogen Heparin Anti-Xa Level POC ABG pH POC ABG pCO2 POC ABG pO2 POC Potassium POC Chloride Sodium Potassium Chloride Carbon Dioxide POC BUN BUN Creatinine Glucose POC Glucose 113 H 122 H Calcium Magnesium AST Alkaline Phosphatase Lactate Dehydrogenase Total Creatine Kinase Total Protein Albumin Urine WBC (Auto) Crossmatch 07/10/16 07/10/16 07/10/16 11:38 15:36 21:45 WBC RBC Hgb POC Hgb Hct POC Hct MCH MCHC RDW Plt Count Lymph % (Auto) [place] % (Auto) Lymph # [place] # Baso # Seg Neutrophils % Seg Neuts % (Manual) Lymphocytes % (Manual) Monocytes % (Manual) Nucleated RBC % Seg Neutrophils # Seg Neutrophils # Man Lymphocytes # (Manual) Monocytes # (Manual) PT INR APTT Fibrinogen Heparin Anti-Xa Level POC ABG pH POC ABG pCO2 POC ABG pO2 POC Potassium POC Chloride Sodium Potassium Chloride Carbon Dioxide POC BUN BUN Creatinine Glucose POC Glucose 146 H 131 H 141 H Calcium Magnesium AST Alkaline Phosphatase Lactate Dehydrogenase Total Creatine Kinase Total Protein Albumin Urine WBC (Auto) Crossmatch 07/11/16 07/11/16 07/11/16 05:10 07:40 11:45 WBC RBC Hgb POC Hgb Hct POC Hct MCH MCHC RDW Plt Count Lymph % (Auto) [place] % (Auto) Lymph # [place] # Baso # Seg Neutrophils % Seg Neuts % (Manual) Lymphocytes % (Manual) Monocytes % (Manual) Nucleated RBC % Seg Neutrophils # Seg Neutrophils # Man Lymphocytes # (Manual) Monocytes # (Manual) PT INR APTT Fibrinogen Heparin Anti-Xa Level POC ABG pH POC ABG pCO2 POC ABG pO2 POC Potassium POC Chloride Sodium Potassium Chloride Carbon Dioxide POC BUN BUN Creatinine Glucose 107 H POC Glucose 114 H 116 H Calcium 7.7 L Magnesium AST 81 H Alkaline Phosphatase 153 H Lactate Dehydrogenase Total Creatine Kinase Total Protein 6.0 L Albumin 1.8 L Urine WBC (Auto) Crossmatch 07/11/16 07/11/16 07/12/16 16:22 19:45 08:39 WBC RBC Hgb POC Hgb Hct POC Hct MCH MCHC RDW Plt Count Lymph % (Auto) [place] % (Auto) Lymph # [place] # Baso # Seg Neutrophils % Seg Neuts % (Manual) Lymphocytes % (Manual) Monocytes % (Manual) Nucleated RBC % Seg Neutrophils # Seg Neutrophils # Man Lymphocytes # (Manual) Monocytes # (Manual) PT INR APTT Fibrinogen Heparin Anti-Xa Level POC ABG pH POC ABG pCO2 POC ABG pO2 POC Potassium POC Chloride Sodium Potassium Chloride Carbon Dioxide POC BUN BUN Creatinine Glucose POC Glucose 110 H 106 H 124 H Calcium Magnesium AST Alkaline Phosphatase Lactate Dehydrogenase Total Creatine Kinase Total Protein Albumin Urine WBC (Auto) Crossmatch 07/12/16 07/12/16 07/13/16 11:31 16:36 07:05 WBC 12.4 H RBC 2.93 L Hgb 8.5 L POC Hgb Hct 25.6 L POC Hct MCH MCHC RDW Plt Count Lymph % (Auto) 11.[address] [place] % (Auto) 7.5 H Lymph # [place] # 0.9 H Baso # Seg Neutrophils % 80.6 H Seg Neuts % (Manual) Lymphocytes % (Manual) Monocytes % (Manual) Nucleated RBC % Seg Neutrophils # 10.0 H Seg Neutrophils # Man Lymphocytes # (Manual) Monocytes # (Manual) PT INR APTT Fibrinogen Heparin Anti-Xa Level POC ABG pH POC ABG pCO2 POC ABG pO2 POC Potassium POC Chloride Sodium Potassium Chloride Carbon Dioxide POC BUN BUN Creatinine Glucose POC Glucose 128 H 119 H Calcium Magnesium AST Alkaline Phosphatase Lactate Dehydrogenase Total Creatine Kinase Total Protein Albumin Urine WBC (Auto) Crossmatch 07/13/16 07/13/16 07/13/16 07:30 11:41 13:45 WBC RBC Hgb POC Hgb Hct POC Hct MCH MCHC RDW Plt Count Lymph % (Auto) [place] % (Auto) Lymph # [place] # Baso # Seg Neutrophils % Seg Neuts % (Manual) Lymphocytes % (Manual) Monocytes % (Manual) Nucleated RBC % Seg Neutrophils # Seg Neutrophils # Man Lymphocytes # (Manual) Monocytes # (Manual) PT INR APTT Fibrinogen Heparin Anti-Xa Level POC ABG pH POC ABG pCO2 POC ABG pO2 POC Potassium POC Chloride Sodium Potassium Chloride Carbon Dioxide POC BUN BUN Creatinine Glucose POC Glucose 133 H 129 H Calcium Magnesium AST Alkaline Phosphatase Lactate Dehydrogenase Total Creatine Kinase Total Protein Albumin Urine WBC (Auto) Crossmatch See Detail 07/13/16 07/13/16 07/14/16 15:28 23:29 08:15 WBC RBC Hgb POC Hgb Hct POC Hct MCH MCHC RDW Plt Count Lymph % (Auto) [place] % (Auto) Lymph # [place] # Baso # Seg Neutrophils % Seg Neuts % (Manual) Lymphocytes % (Manual) Monocytes % (Manual) Nucleated RBC % Seg Neutrophils # Seg Neutrophils # Man Lymphocytes # (Manual) Monocytes # (Manual) PT INR APTT Fibrinogen Heparin Anti-Xa Level POC ABG pH POC ABG pCO2 POC ABG pO2 POC Potassium POC Chloride Sodium Potassium Chloride Carbon Dioxide POC BUN BUN Creatinine Glucose POC Glucose 119 H 113 H 130 H Calcium Magnesium AST Alkaline Phosphatase Lactate Dehydrogenase Total Creatine Kinase Total Protein Albumin Urine WBC (Auto) Crossmatch 07/14/16 07/14/16 08:30 Unknown WBC 13.9 H RBC Hgb POC Hgb Hct POC Hct MCH MCHC RDW Plt Count Lymph % (Auto) 9.[address] [place] % (Auto) Lymph # [place] # Baso # Seg Neutrophils % 83.8 H Seg Neuts % (Manual) Lymphocytes % (Manual) Monocytes % (Manual) Nucleated RBC % Seg Neutrophils # 11.7 H Seg Neutrophils # Man Lymphocytes # (Manual) Monocytes # (Manual) PT INR APTT Fibrinogen Heparin Anti-Xa Level POC ABG pH POC ABG pCO2 POC ABG pO2 POC Potassium POC Chloride Sodium 135 L Potassium Chloride Carbon Dioxide POC BUN BUN Creatinine Glucose 113 H POC Glucose Calcium 7.8 L Magnesium AST Alkaline Phosphatase Lactate Dehydrogenase Total Creatine Kinase Total Protein Albumin Urine WBC (Auto) Crossmatch
[2016-07-15] MEDS: D5W/0.45% NACL/KCL 20 MEQ 1,000 ML IV SCH (04:00)
[2016-07-15 04:45] LABS: Basophils % (Auto) 0.6 % (0.0-1.8); Eosinophils % (Auto) 0.3 % (0.0-4.3); Mean Corpuscular HGB Conc 32 % (30-34); Mean Corpuscular Hemoglobin 28 pg (28-32); Mean Corpuscular Volume 87 fl (79-97); Platelet Count 339 K/mm3 (140-440); Red Blood Count 3.91 M/mm3 (3.65-5.03); Red Cell Distribution Width 15.1 % (13.2-15.2); White Blood Count 15.3 K/mm3 (4.5-11.0)
[2016-07-15 05:01] LABS: BUN/Creatinine Ratio 11.66; Blood Urea Nitrogen 7 mg/dL (7-17); Carbon Dioxide 26 mmol/L (22-30); Chloride 96.5 mmol/L (98-107); Glucose 104 mg/dL (65-100); Potassium 4.1 mmol/L (3.6-5.0); Sodium 131 mmol/L (137-145)
[2016-07-15 05:02] LABS: Anion Gap 13 mmol/L
[2016-07-15] MEDS: ZOSYN/NS 4.5GM/100ML 100 ML IV SCH ×3 (05:30→21:28)
--- NOTE | 2016-07-15 07:34 | Anesthesia Consultation ---
Anesthesia Consult and Med Hx Date of service: 07/15/16 - Airway Anesthetic Teeth Evaluation: Edentulous ROM Head & Neck: Adequate Mental/Hyoid Distance: Adequate Mallampati Class: Class II Intubation Access Assessment: Probably Good - Pulmonary Exam CTA: Yes - Cardiac Exam Cardiac Exam: RRR - Pre-Operative Health Status ASA Pre-Surgery Classification: ASA4 Proposed Anesthetic Plan: General - Pre-Anesthesia Comment Pre-Anesthesia Comments: Patient s/p cardiopulmonary arrest X 2 (06/20/16), Mechanical ventilator s/p extubation 07/05/16, now with stable respiratory function. Patient had multiple LLE vascular surgery for severe PVD complicated by lower extremity thrombosis, cardiopulmonary arrest, bacteremia. H/o DM, HTN, Anemia, REJI. Patient on Plavix, LD 07/14/2016. - Pulmonary Hx Smoking: Yes Hx Asthma: No Hx Respiratory Symptoms: Yes (s/p [id number]/24/2016) COPD: No Hx Pneumonia: No Hx Sleep Apnea: No - Cardiovascular System Hx Hypertension: Yes (2007, high cholesterol) Hx Pacemaker: No Hx Internal Defibrillator: No Hx Peripheral Vascular Disease: Yes (with intermittent claudication, ischemic pain) - Central Nervous System CVA: Yes (5yrs ago) Hx Psychiatric Problems: No - Endocrine Hx Renal Disease: Yes (acute) Hx End Stage Renal Disease: No Hx Non-Insulin Dependent Diabetes: Yes - Hematic Hx Anemia: Yes - Other Systems Hx Cancer: No
[2016-07-15] MEDS: NOVOLOG SUB-Q SCH ×3 (08:00→17:20)
[2016-07-15] MEDS ORDERED: NACL 0.9% 1000 ML 1,000 ML ONE (08:06)
[2016-07-15] MEDS ORDERED: VANCOMYCIN/NS 1 GM/250 ML 250 ML IV NR (08:07)
[2016-07-15] MEDS ORDERED: XYLOCAINE MPF 2% ONE (08:10)
[2016-07-15] MEDS ORDERED: AMIDATE IV ONE (08:10)
[2016-07-15] MEDS ORDERED: SUBLIMAZE ONE (08:13)
--- NOTE | 2016-07-15 08:21 | Anesthesia Day of Surgery ---
Anesthesia Day of Surgery - Day of Surgery Patient Examined: Yes Patient H&P Reviewed: Yes Patient is NPO: Yes Beta Blockers: Yes
[2016-07-15] MEDS ORDERED: DILAUDID IV ONE (08:23)
[2016-07-15] MEDS ORDERED: ZOFRAN IV PRN (08:23)
[2016-07-15] MEDS ORDERED: DILAUDID IV PRN (08:23)
[2016-07-15] MEDS ORDERED: NACL 0.9% 1000 ML 1,000 ML IV SCH (09:00)
[2016-07-15] MEDS ORDERED: DECADRON ONE (09:22)
[2016-07-15] MEDS ORDERED: ZEMURON IV ONE (09:22)
[2016-07-15] MEDS ORDERED: NACL 0.9% IR ONE (09:54)
[2016-07-15] MEDS ORDERED: MARCAINE 0.5% INFILTRATI ONE (09:55)
--- NOTE | 2016-07-15 10:17 | Progress Note ---
Assessment and Plan Current antibiotics: Zosyn 4.5 grams IV q8h 07/08 --> Previous antibiotics: Zosyn 2.25 g IV q8h 06/21-06/24 Cefazolin perioperatively ASSESSMENT: Cande Ge is a 55-year-old female with severe peripheral vascular disease, type 2 DM with peripheral neuropathy and hypertension who was admitted to [facility] as an outpatient with left lower extremity pain at rest for her cutaneous intervention which was unsuccessful and subsequently underwent left femoral endarterectomy and left iliac stenting and left femoral-popliteal bypass on 06/16 , urgent thrombectomies on 06/20 and right femoral endarterectomy with patch angioplasty on 07/03. She also had 2 cardiac arrests on 06/20 requiring resuscitation and intubation. She developed evidence of a retroperitoneal hematoma and ureteral obstruction and underwent bilateral ureteral stenting on 06/27. She has had a low-grade fever and leukocytosis. Problem list: 1. Leukocytosis -Likely reactive -Patient has multiple reasons for leukocytosis including retroperitoneal hematoma , GI bleeding and multiple surgeries -Status post left groin infection and infected Dacron patch 2. Low-grade fever -Resolved 3. Left groin wound infection -Status post debridement of the left groin wound, removal of an infected Dacron patch from the SFA, removal of this thrombosed infected vein bypass graft proximal portionand creation of the sartorius muscle flap over common femoral artery bovine pericardial patch 07/08 -Polymicrobial with Escherichia coli, Enterococcus faecalis and Streptococcal species growing so far 4. Severe peripheral vascular disease -Unsuccessful attempt at percutaneous left lower extremity revascularization 06/13 -Left femoral endarterectomy, left iliac stenting and left femoral-popliteal bypass on 06/16 -Left lower extremity thrombectomies on 06/20 -Right femoral endarterectomy with patch angioplasty on 07/03 -Left lower extremity felt to be nonsalvageable 5. Retroperitoneal hematoma -As seen on CT scan 06/27 6. Bilateral hydroureteronephrosis -Status post bilateral ureteral stenting 06/27 7. Status post cardiopulmonary arrests X 2 -06/20 -Mechanical ventilatory support until 07/05 8. REJI -Creatinine peaked at 4.8 on 06/27 -Likely secondary to ATN -Resolved 9. Anemia -Likely multifactorial secondary to bleeding and chronic disease 10. Type 2 DM PLAN: 1. Continue Zosyn 2. Continue local wound care 3. For AKA today 4. Continued supportive measures and close observation Soham Prokesch MD [facility] Office: [phone] Subjective Date of service: 07/15/16 Principal diagnosis: Infected vascular graft; s/p cardiopulmonary arrest Interval history: Seen earlier this AM before taken to the OR. "Ready to get surgery over with." ROS: No subjective fever or chills. No nausea, vomiting or diarrhea. No shortness of breath, cough or pleuritic chest pain Objective - Exam Narrative Exam: GENERAL: Well-developed, well-nourished appearing female who appears somewhat older than her stated age and appears chronically ill but is in no acute distress. HEAD: Normocephalic. No lesions seen. EYES: Pupils are equal reactive to light and accommodation. There is no scleral icterus. Optic fundi are not examined. EARS: External ears are normal. THROAT: Oropharynx is normal with no evidence of oral candidiasis or pharyngitis. Patient is edentulous. NECK: Supple. No enlargement of the thyroid gland. No significant cervical lymphadenopathy. No jugular venous distention at 30. LUNGS: Clear with no adventitious sounds. HEART: Regular rate with occasional extra beat heard. S1 and S2 are normal. There are no murmurs, gallops, clicks or rubs heard. ABDOMEN: Soft and nontender. Liver and spleen are not palpably enlarged or tender. No palpable masses. Bowel sounds are normoactive. EXTREMITIES: No peripheral lymphadenopathy or clubbing. There is moderate bilateral lower extremity edema with diffuse tenderness to palpation but no increased erythema. Left lower extremity is cool to touch. SKIN: Multiple surgical wounds show no evidence of wound infection. The right femoral incision with samaria in place and no drainage or signs of infection. Left groin wound VAC in place with no signs of infection outside its margins. : Normal external female. No Gillespie catheter. NEUROLOGIC: Bilateral lower extremity weakness. No other focal findings. - Constitutional Vitals: Vital Signs Temp Pulse Resp BP Pulse Ox 100.8 F H 104 H 20 133/65 98 07/15/16 07:50 07/15/16 07:50 07/15/16 07:50 07/15/16 07:50 07/15/16 07:50 Temperature -Last 24 Hours Temperature 100.8 F Temperature 98.4 F Temperature 98.8 F Temperature 98.1 F Temperature 98.8 F Temperature 98.4 F - Labs CBC & Chem 7: 07/15/16 04:15 07/15/16 04:15 Labs: Abnormal lab results Microbiology 07/07/16 Unknown Thigh - Left Anaerobic Culture - Final 07/09/16 04:26 Peripheral/Venous Blood Culture - Preliminary NO GROWTH AFTER 48 HOURS 07/09/16 04:26 Peripheral/Venous Blood Culture - Preliminary NO GROWTH AFTER 48 HOURS 07/07/16 Unknown Thigh - Left Surgical Culture - Preliminary Escherichia Coli Enterococcus Faecalis Streptococcus Species 07/07/16 Unknown Thigh - Left Surgical Biopsy Culture - Preliminary Escherichia Coli Enterococcus Faecalis Streptococcus Species 07/07/16 Unknown Thigh - Left Surgical Biopsy Culture - Preliminary Escherichia Coli Enterococcus Faecalis Streptococcus Species 07/07/16 Unknown Thigh - Left Surgical Biopsy Culture - Preliminary Escherichia Coli Enterococcus Faecalis Streptococcus Species 07/07/16 Unknown Thigh - Left Surgical Biopsy Culture - Preliminary Escherichia Coli 07/03/16 18:55 Tracheal Aspirate Sputum Culture - oropharyngeal contamination 06/21/16 17:45 Peripheral/Venous Blood Culture - Final NO GROWTH AFTER 5 DAYS 06/21/16 17:30 Peripheral/Venous Blood Culture - Final NO GROWTH AFTER 5 DAYS 06/21/16 21:00 Urine,Catheterized - Indwelling Catheter Urine Culture - Final NO GROWTH AFTER 48 HOURS 06/20/16 22:30 Stool Stool Culture - no enteric pathogens 06/20/16 22:30 Stool C. difficile DNA Amplification - negative 06/20/16 22:30 Stool Stool Occult Blood (KIERRA) - positive 06/17/16 11:06 Tracheal Aspirate Sputum Culture - Final Escherichia Coli
[2016-07-15] MEDS ORDERED: BLOXIVERZ ONE (10:26)
[2016-07-15] MEDS ORDERED: ROBINUL ONE (10:27)
[2016-07-15] MEDS ORDERED: NEO SYNEPHRINE/NS Syringe(OR USE) IV ONE (10:31)
[2016-07-15] MEDS ORDERED: ZOFRAN ONE (10:31)
--- NOTE | 2016-07-15 10:43 | Progress Note ---
Assessment and Plan - Patient Problems (1) Peripheral vascular disease of extremity Current Visit: Yes Status: Acute Plan to address problem: - in OR for AKA - vascular surgery managing - continue analgesia - reevaluate post-op (2) Acute respiratory failure Current Visit: Yes Status: Acute Plan to address problem: - on room air but need to r/o hemothorax which will necessitate further intervention - thoracentesis on hold re: plavix but also clinical stability respiratory-centeno (3) Anemia Current Visit: Yes Status: Acute Plan to address problem: - follow H&H - evaluating source - LDH unremarkable - Likely ABLA component (4) Altered mental status Current Visit: Yes Status: Acute Plan to address problem: - improved - dementia element likely +/- depression element ....will re-evaluate post-op Subjective Date of service: 07/15/16 Principal diagnosis: Infected vascular graft; s/p cardiopulmonary arrest Interval history: Seen and examined at bedside; 24 hour events reviewed; nursing and respiratory care staff consulted; no adverse overnight events reported to me; in OR now for left AKA; did well prior; poor appetite but stable vitals; No N/V/F/C Objective Vital Signs - 12hr 07/14/16 07/14/16 07/15/16 23:00 23:23 00:00 Temperature 98.8 F Pulse Rate 100 H 102 H 101 H Respiratory 19 16 17 Rate Blood Pressure 134/77 134/77 139/69 O2 Sat by Pulse 95 98 98 Oximetry 07/15/16 07/15/16 07/15/16 00:30 01:00 02:01 Temperature Pulse Rate 105 H 107 H Respiratory 18 13 18 Rate Blood Pressure 137/67 140/68 O2 Sat by Pulse 100 98 Oximetry 07/15/16 07/15/16 07/15/16 02:15 03:00 04:00 Temperature 98.4 F Pulse Rate 102 H 101 H 101 H Respiratory 17 16 12 Rate Blood Pressure 140/68 142/59 128/63 O2 Sat by Pulse 98 100 100 Oximetry 07/15/16 07/15/16 07/15/16 05:00 05:49 05:51 Temperature Pulse Rate 102 H 101 H 100 H Respiratory 15 13 20 Rate Blood Pressure 132/73 132/73 132/73 O2 Sat by Pulse 98 100 99 Oximetry 07/15/16 07/15/16 07/15/16 06:00 06:19 07:00 Temperature Pulse Rate 104 H 106 H 105 H Respiratory 16 16 16 Rate Blood Pressure 126/72 126/72 133/79 O2 Sat by Pulse 99 99 97 Oximetry 07/15/16 07:50 Temperature 100.8 F H Pulse Rate 104 H Respiratory 20 Rate Blood Pressure 133/65 O2 Sat by Pulse 98 Oximetry Constitutional: no acute distress, alert Eyes: non-icteric ENT: oropharynx moist Neck: supple, no lymphadenopathy Effort: normal Ascultation: Left: diminished breath sounds (base), Bilateral: clear Cardiovascular: regular rate and rhythm Gastrointestinal: normoactive bowel sounds, soft, non-tender, non-distended Integumentary: other (weak LLExt) Extremities: edema, other (LLExt cool; gangrene setting in on digits) Neurologic: normal mental status, non-focal exam, pupils equal and round Psychiatric: mood appropriate, affect normal CBC and BMP: 07/15/16 04:15 07/15/16 04:15 ABG, PT/INR, D-dimer: ABG POC ABG pH 7.436 (7.35-7.45) 07/04/16 16:49 POC ABG pCO2 31.1 (35-45) L 07/04/16 16:49 POC ABG pO2 110 (80-105) H 07/04/16 16:49 POC ABG HCO3 20.9 07/04/16 16:49 POC ABG Total CO2 22 07/04/16 16:49 POC ABG O2 Sat 99 07/04/16 16:49 PT/INR, D-dimer PT 19.9 Sec. (12.2-14.9) H 06/26/16 22:57 INR 1.69 (0.87-1.13) H 06/26/16 22:57 Abnormal lab findings: Abnormal Labs 06/13/16 06/13/16 06/13/16 09:45 09:45 09:45 WBC RBC Hgb POC Hgb Hct POC Hct MCH 25 L MCHC RDW 15.8 H Plt Count Lymph % (Auto) [place] % (Auto) 8.1 H Lymph # [place] # Baso # Seg Neutrophils % Seg Neuts % (Manual) Lymphocytes % (Manual) Monocytes % (Manual) Nucleated RBC % Seg Neutrophils # Seg Neutrophils # Man Lymphocytes # (Manual) Monocytes # (Manual) PT INR APTT Fibrinogen 522 H Heparin Anti-Xa Level POC ABG pH POC ABG pCO2 POC ABG pO2 POC Potassium POC Chloride Sodium Potassium Chloride Carbon Dioxide POC BUN BUN Creatinine Glucose POC Glucose Calcium 10.3 H Magnesium AST Alkaline Phosphatase Lactate Dehydrogenase Total Creatine Kinase Total Protein Albumin Urine WBC (Auto) Crossmatch 06/13/16 06/13/16 06/13/16 09:45 20:14 20:15 WBC RBC Hgb POC Hgb Hct POC Hct MCH MCHC RDW Plt Count Lymph % (Auto) [place] % (Auto) Lymph # [place] # Baso # Seg Neutrophils % Seg Neuts % (Manual) Lymphocytes % (Manual) Monocytes % (Manual) Nucleated RBC % Seg Neutrophils # Seg Neutrophils # Man Lymphocytes # (Manual) Monocytes # (Manual) PT INR APTT 103.8 H* Fibrinogen Heparin Anti-Xa Level 0.72 H POC ABG pH POC ABG pCO2 POC ABG pO2 POC Potassium POC Chloride Sodium Potassium Chloride Carbon Dioxide POC BUN BUN Creatinine Glucose POC Glucose Calcium Magnesium AST Alkaline Phosphatase Lactate Dehydrogenase Total Creatine Kinase Total Protein Albumin Urine WBC (Auto) Crossmatch See Detail 06/14/16 06/14/16 06/14/16 07:44 10:18 19:09 WBC RBC Hgb POC Hgb Hct POC Hct MCH 26 L MCHC RDW 15.8 H Plt Count Lymph % (Auto) [place] % (Auto) 9.1 H Lymph # [place] # Baso # Seg Neutrophils % Seg Neuts % (Manual) Lymphocytes % (Manual) Monocytes % (Manual) Nucleated RBC % Seg Neutrophils # Seg Neutrophils # Man Lymphocytes # (Manual) Monocytes # (Manual) PT INR APTT Fibrinogen Heparin Anti-Xa Level 0.76 H POC ABG pH POC ABG pCO2 POC ABG pO2 POC Potassium POC Chloride Sodium Potassium Chloride Carbon Dioxide POC BUN BUN Creatinine Glucose POC Glucose 106 H Calcium Magnesium AST Alkaline Phosphatase Lactate Dehydrogenase Total Creatine Kinase Total Protein Albumin Urine WBC (Auto) Crossmatch 06/15/16 06/15/16 06/15/16 04:43 04:43 22:49 WBC RBC Hgb 9.2 L POC Hgb Hct 28.4 L POC Hct MCH MCHC RDW Plt Count Lymph % (Auto) [place] % (Auto) Lymph # [place] # Baso # Seg Neutrophils % Seg Neuts % (Manual) Lymphocytes % (Manual) Monocytes % (Manual) Nucleated RBC % Seg Neutrophils # Seg Neutrophils # Man Lymphocytes # (Manual) Monocytes # (Manual) PT INR APTT Fibrinogen Heparin Anti-Xa Level 0.85 H POC ABG pH POC ABG pCO2 POC ABG pO2 POC Potassium POC Chloride Sodium Potassium Chloride Carbon Dioxide POC BUN BUN Creatinine Glucose POC Glucose 134 H Calcium Magnesium AST Alkaline Phosphatase Lactate Dehydrogenase Total Creatine Kinase Total Protein Albumin Urine WBC (Auto) Crossmatch 06/16/16 06/16/16 06/16/16 08:55 08:55 14:21 WBC RBC Hgb POC Hgb 5.8 L Hct POC Hct 17 L MCH MCHC RDW Plt Count Lymph % (Auto) [place] % (Auto) Lymph # [place] # Baso # Seg Neutrophils % Seg Neuts % (Manual) Lymphocytes % (Manual) Monocytes % (Manual) Nucleated RBC % Seg Neutrophils # Seg Neutrophils # Man Lymphocytes # (Manual) Monocytes # (Manual) PT INR APTT 20.0 L Fibrinogen Heparin Anti-Xa Level POC ABG pH POC ABG pCO2 POC ABG pO2 POC Potassium 2.9 L POC Chloride Sodium Potassium Chloride Carbon Dioxide POC BUN 7 L BUN Creatinine Glucose POC Glucose 249 H Calcium Magnesium AST Alkaline Phosphatase Lactate Dehydrogenase Total Creatine Kinase Total Protein Albumin Urine WBC (Auto) Crossmatch See Detail 06/16/16 06/16/16 06/16/16 16:55 17:41 17:48 WBC RBC Hgb POC Hgb 8.8 L Hct POC Hct 26 L < 15 L MCH MCHC RDW Plt Count Lymph % (Auto) [place] % (Auto) Lymph # [place] # Baso # Seg Neutrophils % Seg Neuts % (Manual) Lymphocytes % (Manual) Monocytes % (Manual) Nucleated RBC % Seg Neutrophils # Seg Neutrophils # Man Lymphocytes # (Manual) Monocytes # (Manual) PT INR APTT Fibrinogen Heparin Anti-Xa Level POC ABG pH 7.031 L POC ABG pCO2 POC ABG pO2 475 H POC Potassium 3.2 L POC Chloride 112 H 114 H Sodium Potassium Chloride Carbon Dioxide POC BUN 7 L 7 L BUN Creatinine Glucose POC Glucose 203 H 291 H Calcium Magnesium AST Alkaline Phosphatase Lactate Dehydrogenase Total Creatine Kinase Total Protein Albumin Urine WBC (Auto) Crossmatch 06/16/16 06/16/16 06/16/16 18:07 19:09 20:10 WBC 15.8 H RBC Hgb POC Hgb 6.5 L Hct POC Hct 19 L MCH MCHC RDW Plt Count 38 L Lymph % (Auto) 5.9 L [place] % (Auto) 9.3 H Lymph # 0.9 L [place] # 1.5 H Baso # Seg Neutrophils % 84.6 H Seg Neuts % (Manual) Lymphocytes % (Manual) Monocytes % (Manual) Nucleated RBC % Seg Neutrophils # 13.3 H Seg Neutrophils # Man Lymphocytes # (Manual) Monocytes # (Manual) PT INR APTT Fibrinogen Heparin Anti-Xa Level POC ABG pH POC ABG pCO2 POC ABG pO2 POC Potassium POC Chloride 113 H Sodium Potassium Chloride Carbon Dioxide POC BUN 7 L BUN Creatinine Glucose POC Glucose 263 H 231 H Calcium Magnesium AST Alkaline Phosphatase Lactate Dehydrogenase Total Creatine Kinase Total Protein Albumin Urine WBC (Auto) Crossmatch 06/16/16 06/16/16 06/16/16 20:10 20:18 21:10 WBC RBC Hgb POC Hgb Hct POC Hct MCH MCHC RDW Plt Count Lymph % (Auto) [place] % (Auto) Lymph # [place] # Baso # Seg Neutrophils % Seg Neuts % (Manual) Lymphocytes % (Manual) Monocytes % (Manual) Nucleated RBC % Seg Neutrophils # Seg Neutrophils # Man Lymphocytes # (Manual) Monocytes # (Manual) PT INR APTT Fibrinogen Heparin Anti-Xa Level POC ABG pH 7.236 L 7.280 L POC ABG pCO2 POC ABG pO2 139 H 145 H POC Potassium POC Chloride Sodium Potassium 3.4 L Chloride 114.5 H Carbon Dioxide 17 L D POC BUN BUN Creatinine Glucose 188 H POC Glucose Calcium 6.1 L D Magnesium AST Alkaline Phosphatase Lactate Dehydrogenase Total Creatine Kinase Total Protein Albumin Urine WBC (Auto) Crossmatch 06/16/16 06/17/16 06/17/16 22:53 04:48 05:35 WBC RBC Hgb POC Hgb Hct POC Hct MCH MCHC RDW Plt Count Lymph % (Auto) [place] % (Auto) Lymph # [place] # Baso # Seg Neutrophils % Seg Neuts % (Manual) Lymphocytes % (Manual) Monocytes % (Manual) Nucleated RBC % Seg Neutrophils # Seg Neutrophils # Man Lymphocytes # (Manual) Monocytes # (Manual) PT INR APTT Fibrinogen Heparin Anti-Xa Level POC ABG pH POC ABG pCO2 33.9 L 22.2 L POC ABG pO2 152 H 154 H POC Potassium POC Chloride Sodium 150 H Potassium 3.4 L Chloride 114.2 H Carbon Dioxide 16 L POC BUN BUN Creatinine Glucose 221 H POC Glucose Calcium 7.6 L D Magnesium AST Alkaline Phosphatase Lactate Dehydrogenase Total Creatine Kinase Total Protein Albumin Urine WBC (Auto) Crossmatch 06/17/16 06/18/16 06/18/16 09:22 07:26 08:25 WBC 20.3 H RBC 3.41 L Hgb 9.9 L POC Hgb Hct 29.7 L POC Hct MCH MCHC RDW Plt Count Lymph % (Auto) [place] % (Auto) Lymph # [place] # Baso # Seg Neutrophils % Seg Neuts % (Manual) 81.0 H Lymphocytes % (Manual) 6.0 L Monocytes % (Manual) 12.0 H Nucleated RBC % Seg Neutrophils # Seg Neutrophils # Man 16.4 H Lymphocytes # (Manual) Monocytes # (Manual) 2.4 H PT INR APTT Fibrinogen Heparin Anti-Xa Level POC ABG pH POC ABG pCO2 POC ABG pO2 POC Potassium POC Chloride Sodium Potassium 3.1 L Chloride Carbon Dioxide POC BUN BUN Creatinine Glucose 136 H POC Glucose 141 H Calcium 7.5 L Magnesium AST Alkaline Phosphatase Lactate Dehydrogenase Total Creatine Kinase Total Protein Albumin Urine WBC (Auto) Crossmatch 06/18/16 06/18/16 06/18/16 08:25 11:09 19:40 WBC RBC Hgb 6.5 L D POC Hgb Hct 19.3 L* D POC Hct MCH MCHC RDW Plt Count 131 L Lymph % (Auto) [place] % (Auto) Lymph # [place] # Baso # Seg Neutrophils % Seg Neuts % (Manual) Lymphocytes % (Manual) Monocytes % (Manual) Nucleated RBC % Seg Neutrophils # Seg Neutrophils # Man Lymphocytes # (Manual) Monocytes # (Manual) PT INR APTT Fibrinogen Heparin Anti-Xa Level POC ABG pH 7.490 H POC ABG pCO2 POC ABG pO2 131 H POC Potassium POC Chloride Sodium Potassium Chloride Carbon Dioxide POC BUN BUN Creatinine Glucose POC Glucose 125 H Calcium Magnesium AST Alkaline Phosphatase Lactate Dehydrogenase Total Creatine Kinase Total Protein Albumin Urine WBC (Auto) Crossmatch 06/18/16 06/19/16 06/19/16 21:10 07:07 07:28 WBC 13.6 H RBC 2.17 L Hgb 6.5 L POC Hgb Hct 18.8 L* POC Hct MCH MCHC 35 H RDW Plt Count 131 L Lymph % (Auto) 10.1 L [place] % (Auto) 9.3 H Lymph # [place] # 1.3 H Baso # Seg Neutrophils % 79.7 H Seg Neuts % (Manual) Lymphocytes % (Manual) Monocytes % (Manual) Nucleated RBC % Seg Neutrophils # 10.8 H Seg Neutrophils # Man Lymphocytes # (Manual) Monocytes # (Manual) PT INR APTT Fibrinogen Heparin Anti-Xa Level 0.75 H POC ABG pH POC ABG pCO2 POC ABG pO2 POC Potassium POC Chloride Sodium Potassium 3.5 L Chloride Carbon Dioxide POC BUN BUN Creatinine Glucose 104 H POC Glucose Calcium 7.6 L Magnesium 1.4 L AST Alkaline Phosphatase Lactate Dehydrogenase Total Creatine Kinase Total Protein Albumin Urine WBC (Auto) Crossmatch 06/20/16 06/20/16 06/20/16 04:15 18:15 18:15 WBC 16.6 H RBC 1.19 L Hgb 9.2 L 3.5 L* D POC Hgb Hct 27.5 L D 11.0 L* D POC Hct MCH MCHC RDW Plt Count 138 L Lymph % (Auto) [place] % (Auto) Lymph # [place] # Baso # Seg Neutrophils % Seg Neuts % (Manual) Lymphocytes % (Manual) Monocytes % (Manual) Nucleated RBC % Seg Neutrophils # Seg Neutrophils # Man Lymphocytes # (Manual) Monocytes # (Manual) PT INR APTT Fibrinogen Heparin Anti-Xa Level POC ABG pH POC ABG pCO2 POC ABG pO2 POC Potassium POC Chloride Sodium 146 H Potassium Chloride Carbon Dioxide 14 L D POC BUN BUN Creatinine Glucose 31 L* POC Glucose Calcium 6.7 L Magnesium AST Alkaline Phosphatase Lactate Dehydrogenase Total Creatine Kinase Total Protein Albumin Urine WBC (Auto) Crossmatch 06/20/16 06/20/16 06/20/16 18:15 19:33 19:36 WBC RBC Hgb POC Hgb Hct POC Hct MCH MCHC RDW Plt Count Lymph % (Auto) [place] % (Auto) Lymph # [place] # Baso # Seg Neutrophils % Seg Neuts % (Manual) Lymphocytes % (Manual) Monocytes % (Manual) Nucleated RBC % Seg Neutrophils # Seg Neutrophils # Man Lymphocytes # (Manual) Monocytes # (Manual) PT INR APTT Fibrinogen Heparin Anti-Xa Level POC ABG pH POC ABG pCO2 26.3 L POC ABG pO2 394 H POC Potassium POC Chloride Sodium Potassium Chloride Carbon Dioxide POC BUN BUN Creatinine Glucose POC Glucose 212 H Calcium Magnesium AST Alkaline Phosphatase Lactate Dehydrogenase Total Creatine Kinase Total Protein Albumin Urine WBC (Auto) Crossmatch See Detail 06/20/16 06/20/16 06/21/16 22:01 23:00 00:35 WBC RBC Hgb POC Hgb Hct POC Hct MCH MCHC RDW Plt Count Lymph % (Auto) [place] % (Auto) Lymph # [place] # Baso # Seg Neutrophils % Seg Neuts % (Manual) Lymphocytes % (Manual) Monocytes % (Manual) Nucleated RBC % Seg Neutrophils # Seg Neutrophils # Man Lymphocytes # (Manual) Monocytes # (Manual) PT 21.3 H INR 1.85 H APTT 48.4 H Fibrinogen Heparin Anti-Xa Level POC ABG pH POC ABG pCO2 POC ABG pO2 POC Potassium POC Chloride Sodium Potassium Chloride Carbon Dioxide POC BUN BUN Creatinine Glucose POC Glucose 149 H 147 H Calcium Magnesium AST Alkaline Phosphatase Lactate Dehydrogenase Total Creatine Kinase Total Protein Albumin Urine WBC (Auto) Crossmatch 06/21/16 06/21/16 06/21/16 04:30 04:30 06:01 WBC 21.7 H RBC 3.58 L Hgb POC Hgb Hct POC Hct MCH MCHC 35 H RDW Plt Count 116 L Lymph % (Auto) [place] % (Auto) Lymph # [place] # Baso # Seg Neutrophils % Seg Neuts % (Manual) Lymphocytes % (Manual) 8.0 L Monocytes % (Manual) Nucleated RBC % 3.0 H Seg Neutrophils # Seg Neutrophils # Man 13.7 H Lymphocytes # (Manual) Monocytes # (Manual) 1.5 H PT INR APTT Fibrinogen Heparin Anti-Xa Level POC ABG pH 7.541 H POC ABG pCO2 21.1 L POC ABG pO2 108 H POC Potassium POC Chloride Sodium Potassium 3.0 L Chloride 110.3 H Carbon Dioxide 18 L POC BUN BUN 18 H Creatinine Glucose 141 H POC Glucose Calcium 6.4 L Magnesium AST Alkaline Phosphatase Lactate Dehydrogenase Total Creatine Kinase Total Protein Albumin Urine WBC (Auto) Crossmatch 06/21/16 06/21/16 06/21/16 07:00 10:02 17:51 WBC RBC Hgb 8.3 L POC Hgb Hct 24.7 L D POC Hct MCH MCHC RDW Plt Count Lymph % (Auto) [place] % (Auto) Lymph # [place] # Baso # Seg Neutrophils % Seg Neuts % (Manual) Lymphocytes % (Manual) Monocytes % (Manual) Nucleated RBC % Seg Neutrophils # Seg Neutrophils # Man Lymphocytes # (Manual) Monocytes # (Manual) PT INR APTT Fibrinogen Heparin Anti-Xa Level POC ABG pH POC ABG pCO2 POC ABG pO2 POC Potassium POC Chloride Sodium Potassium Chloride Carbon Dioxide POC BUN BUN Creatinine Glucose POC Glucose 132 H 106 H Calcium Magnesium AST Alkaline Phosphatase Lactate Dehydrogenase Total Creatine Kinase Total Protein Albumin Urine WBC (Auto) Crossmatch 06/22/16 06/22/16 06/22/16 05:00 05:00 06:40 WBC 20.6 H RBC 3.54 L Hgb POC Hgb Hct POC Hct MCH MCHC RDW Plt Count 129 L Lymph % (Auto) [place] % (Auto) Lymph # [place] # Baso # Seg Neutrophils % Seg Neuts % (Manual) 87.0 H Lymphocytes % (Manual) 4.0 L Monocytes % (Manual) Nucleated RBC % 4.0 H Seg Neutrophils # Seg Neutrophils # Man 17.9 H Lymphocytes # (Manual) 0.8 L Monocytes # (Manual) 1.2 H PT INR APTT Fibrinogen Heparin Anti-Xa Level POC ABG pH POC ABG pCO2 21.9 L POC ABG pO2 118 H POC Potassium POC Chloride Sodium Potassium Chloride 109.9 H Carbon Dioxide 15 L POC BUN BUN 26 H Creatinine 2.2 H D Glucose POC Glucose Calcium 6.3 L Magnesium AST Alkaline Phosphatase Lactate Dehydrogenase Total Creatine Kinase Total Protein Albumin Urine WBC (Auto) Crossmatch 06/22/16 06/22/16 06/22/16 09:15 09:15 23:17 WBC RBC Hgb 9.1 L POC Hgb Hct 26.9 L POC Hct MCH MCHC RDW Plt Count 116 L Lymph % (Auto) [place] % (Auto) Lymph # [place] # Baso # Seg Neutrophils % Seg Neuts % (Manual) Lymphocytes % (Manual) Monocytes % (Manual) Nucleated RBC % Seg Neutrophils # Seg Neutrophils # Man Lymphocytes # (Manual) Monocytes # (Manual) PT 15.8 H INR 1.27 H APTT Fibrinogen Heparin Anti-Xa Level POC ABG pH POC ABG pCO2 POC ABG pO2 POC Potassium POC Chloride Sodium Potassium Chloride Carbon Dioxide POC BUN BUN Creatinine Glucose POC Glucose 134 H Calcium Magnesium AST Alkaline Phosphatase Lactate Dehydrogenase Total Creatine Kinase Total Protein Albumin Urine WBC (Auto) Crossmatch 06/23/16 06/23/16 06/23/16 05:43 05:43 09:44 WBC 13.8 H RBC 2.70 L Hgb 8.1 L POC Hgb Hct 24.2 L POC Hct MCH MCHC RDW Plt Count 93 L Lymph % (Auto) 6.2 L [place] % (Auto) Lymph # 0.9 L [place] # Baso # Seg Neutrophils % 89.2 H Seg Neuts % (Manual) Lymphocytes % (Manual) Monocytes % (Manual) Nucleated RBC % Seg Neutrophils # 12.3 H Seg Neutrophils # Man Lymphocytes # (Manual) Monocytes # (Manual) PT INR APTT Fibrinogen Heparin Anti-Xa Level POC ABG pH 7.593 H POC ABG pCO2 26.8 L POC ABG pO2 141 H POC Potassium POC Chloride Sodium 146 H Potassium Chloride Carbon Dioxide POC BUN BUN 32 H Creatinine 2.6 H Glucose 142 H POC Glucose Calcium 7.0 L Magnesium AST Alkaline Phosphatase Lactate Dehydrogenase Total Creatine Kinase Total Protein Albumin Urine WBC (Auto) Crossmatch 06/23/16 06/23/16 06/23/16 11:23 17:42 23:32 WBC RBC Hgb POC Hgb Hct POC Hct MCH MCHC RDW Plt Count Lymph % (Auto) [place] % (Auto) Lymph # [place] # Baso # Seg Neutrophils % Seg Neuts % (Manual) Lymphocytes % (Manual) Monocytes % (Manual) Nucleated RBC % Seg Neutrophils # Seg Neutrophils # Man Lymphocytes # (Manual) Monocytes # (Manual) PT INR APTT Fibrinogen Heparin Anti-Xa Level POC ABG pH POC ABG pCO2 POC ABG pO2 POC Potassium POC Chloride Sodium Potassium Chloride Carbon Dioxide POC BUN BUN Creatinine Glucose POC Glucose 138 H 133 H 111 H Calcium Magnesium AST Alkaline Phosphatase Lactate Dehydrogenase Total Creatine Kinase Total Protein Albumin Urine WBC (Auto) Crossmatch 06/24/16 06/24/16 06/24/16 06:27 08:10 08:10 WBC 16.6 H RBC 2.91 L Hgb 8.9 L POC Hgb Hct 26.4 L POC Hct MCH MCHC RDW 15.6 H Plt Count 115 L Lymph % (Auto) 4.6 L [place] % (Auto) Lymph # 0.8 L [place] # 1.0 H Baso # Seg Neutrophils % 89.2 H Seg Neuts % (Manual) Lymphocytes % (Manual) Monocytes % (Manual) Nucleated RBC % Seg Neutrophils # 14.9 H Seg Neutrophils # Man Lymphocytes # (Manual) Monocytes # (Manual) PT INR APTT Fibrinogen Heparin Anti-Xa Level POC ABG pH POC ABG pCO2 POC ABG pO2 POC Potassium POC Chloride Sodium 146 H Potassium Chloride Carbon Dioxide POC BUN BUN 37 H Creatinine 2.9 H Glucose POC Glucose 109 H Calcium 7.5 L Magnesium AST Alkaline Phosphatase Lactate Dehydrogenase Total Creatine Kinase Total Protein Albumin Urine WBC (Auto) Crossmatch 06/24/16 06/24/16 06/24/16 12:05 17:57 22:13 WBC RBC Hgb POC Hgb Hct POC Hct MCH MCHC RDW Plt Count Lymph % (Auto) [place] % (Auto) Lymph # [place] # Baso # Seg Neutrophils % Seg Neuts % (Manual) Lymphocytes % (Manual) Monocytes % (Manual) Nucleated RBC % Seg Neutrophils # Seg Neutrophils # Man Lymphocytes # (Manual) Monocytes # (Manual) PT INR APTT Fibrinogen Heparin Anti-Xa Level POC ABG pH POC ABG pCO2 POC ABG pO2 POC Potassium POC Chloride Sodium Potassium Chloride Carbon Dioxide POC BUN BUN Creatinine Glucose POC Glucose 117 H 124 H 116 H Calcium Magnesium AST Alkaline Phosphatase Lactate Dehydrogenase Total Creatine Kinase Total Protein Albumin Urine WBC (Auto) Crossmatch 06/25/16 06/25/16 06/25/16 06:42 06:49 12:14 WBC RBC Hgb POC Hgb Hct POC Hct MCH MCHC RDW Plt Count Lymph % (Auto) [place] % (Auto) Lymph # [place] # Baso # Seg Neutrophils % Seg Neuts % (Manual) Lymphocytes % (Manual) Monocytes % (Manual) Nucleated RBC % Seg Neutrophils # Seg Neutrophils # Man Lymphocytes # (Manual) Monocytes # (Manual) PT INR APTT Fibrinogen Heparin Anti-Xa Level POC ABG pH POC ABG pCO2 POC ABG pO2 POC Potassium POC Chloride Sodium Potassium Chloride Carbon Dioxide POC BUN BUN 46 H Creatinine 3.6 H Glucose 133 H POC Glucose 137 H 136 H Calcium 7.4 L Magnesium AST Alkaline Phosphatase Lactate Dehydrogenase Total Creatine Kinase Total Protein Albumin Urine WBC (Auto) Crossmatch 06/25/16 06/25/16 06/26/16 16:07 21:32 05:55 WBC RBC Hgb POC Hgb Hct POC Hct MCH MCHC RDW Plt Count Lymph % (Auto) [place] % (Auto) Lymph # [place] # Baso # Seg Neutrophils % Seg Neuts % (Manual) Lymphocytes % (Manual) Monocytes % (Manual) Nucleated RBC % Seg Neutrophils # Seg Neutrophils # Man Lymphocytes # (Manual) Monocytes # (Manual) PT INR APTT Fibrinogen Heparin Anti-Xa Level POC ABG pH POC ABG pCO2 POC ABG pO2 POC Potassium POC Chloride Sodium Potassium Chloride Carbon Dioxide 20 L POC BUN BUN 55 H Creatinine 4.2 H Glucose 120 H POC Glucose 146 H 146 H Calcium 7.5 L Magnesium AST Alkaline Phosphatase Lactate Dehydrogenase Total Creatine Kinase Total Protein Albumin Urine WBC (Auto) Crossmatch 06/26/16 06/26/16 06/26/16 06:30 11:38 16:45 WBC RBC Hgb POC Hgb Hct POC Hct MCH MCHC RDW Plt Count Lymph % (Auto) [place] % (Auto) Lymph # [place] # Baso # Seg Neutrophils % Seg Neuts % (Manual) Lymphocytes % (Manual) Monocytes % (Manual) Nucleated RBC % Seg Neutrophils # Seg Neutrophils # Man Lymphocytes # (Manual) Monocytes # (Manual) PT INR APTT Fibrinogen Heparin Anti-Xa Level POC ABG pH POC ABG pCO2 POC ABG pO2 POC Potassium POC Chloride Sodium Potassium Chloride Carbon Dioxide POC BUN BUN Creatinine Glucose POC Glucose 128 H 143 H 121 H Calcium Magnesium AST Alkaline Phosphatase Lactate Dehydrogenase Total Creatine Kinase Total Protein Albumin Urine WBC (Auto) Crossmatch 06/26/16 06/26/16 06/27/16 22:57 22:57 00:47 WBC RBC Hgb 8.4 L POC Hgb Hct 25.1 L POC Hct MCH MCHC RDW Plt Count Lymph % (Auto) [place] % (Auto) Lymph # [place] # Baso # Seg Neutrophils % Seg Neuts % (Manual) Lymphocytes % (Manual) Monocytes % (Manual) Nucleated RBC % Seg Neutrophils # Seg Neutrophils # Man Lymphocytes # (Manual) Monocytes # (Manual) PT 19.9 H INR 1.69 H APTT Fibrinogen Heparin Anti-Xa Level POC ABG pH POC ABG pCO2 POC ABG pO2 POC Potassium POC Chloride Sodium Potassium Chloride Carbon Dioxide POC BUN BUN Creatinine Glucose POC Glucose 110 H Calcium Magnesium AST Alkaline Phosphatase Lactate Dehydrogenase Total Creatine Kinase Total Protein Albumin Urine WBC (Auto) Crossmatch 06/27/16 06/27/16 06/27/16 05:43 05:43 06:40 WBC RBC Hgb POC Hgb Hct POC Hct MCH MCHC RDW Plt Count Lymph % (Auto) [place] % (Auto) Lymph # [place] # Baso # Seg Neutrophils % Seg Neuts % (Manual) Lymphocytes % (Manual) Monocytes % (Manual) Nucleated RBC % Seg Neutrophils # Seg Neutrophils # Man Lymphocytes # (Manual) Monocytes # (Manual) PT INR APTT Fibrinogen Heparin Anti-Xa Level 2.00 H POC ABG pH POC ABG pCO2 POC ABG pO2 POC Potassium POC Chloride Sodium Potassium Chloride Carbon Dioxide 20 L POC BUN BUN 58 H Creatinine 4.8 H Glucose POC Glucose 109 H Calcium 8.1 L Magnesium AST Alkaline Phosphatase Lactate Dehydrogenase Total Creatine Kinase Total Protein Albumin Urine WBC (Auto) Crossmatch 06/27/16 06/27/16 06/27/16 08:15 16:46 17:47 WBC RBC Hgb POC Hgb Hct POC Hct MCH MCHC RDW Plt Count Lymph % (Auto) [place] % (Auto) Lymph # [place] # Baso # Seg Neutrophils % Seg Neuts % (Manual) Lymphocytes % (Manual) Monocytes % (Manual) Nucleated RBC % Seg Neutrophils # Seg Neutrophils # Man Lymphocytes # (Manual) Monocytes # (Manual) PT INR APTT Fibrinogen Heparin Anti-Xa Level > 2.00 H 1.87 H POC ABG pH POC ABG pCO2 POC ABG pO2 POC Potassium POC Chloride Sodium Potassium Chloride Carbon Dioxide POC BUN BUN Creatinine Glucose POC Glucose 231 H Calcium Magnesium AST Alkaline Phosphatase Lactate Dehydrogenase Total Creatine Kinase Total Protein Albumin Urine WBC (Auto) Crossmatch 06/27/16 06/27/16 06/28/16 21:23 23:54 06:27 WBC RBC Hgb POC Hgb Hct POC Hct MCH MCHC RDW Plt Count Lymph % (Auto) [place] % (Auto) Lymph # [place] # Baso # Seg Neutrophils % Seg Neuts % (Manual) Lymphocytes % (Manual) Monocytes % (Manual) Nucleated RBC % Seg Neutrophils # Seg Neutrophils # Man Lymphocytes # (Manual) Monocytes # (Manual) PT INR APTT Fibrinogen Heparin Anti-Xa Level 1.70 H POC ABG pH POC ABG pCO2 POC ABG pO2 POC Potassium POC Chloride Sodium Potassium Chloride Carbon Dioxide POC BUN BUN 62 H Creatinine 4.5 H Glucose 111 H POC Glucose 122 H Calcium 8.3 L Magnesium AST Alkaline Phosphatase Lactate Dehydrogenase Total Creatine Kinase Total Protein Albumin Urine WBC (Auto) Crossmatch 06/28/16 06/28/16 06/28/16 06:27 11:47 14:14 WBC RBC Hgb 7.7 L POC Hgb Hct 22.9 L POC Hct MCH MCHC RDW Plt Count Lymph % (Auto) [place] % (Auto) Lymph # [place] # Baso # Seg Neutrophils % Seg Neuts % (Manual) Lymphocytes % (Manual) Monocytes % (Manual) Nucleated RBC % Seg Neutrophils # Seg Neutrophils # Man Lymphocytes # (Manual) Monocytes # (Manual) PT INR APTT Fibrinogen Heparin Anti-Xa Level POC ABG pH 7.461 H POC ABG pCO2 31.9 L POC ABG pO2 73 L POC Potassium POC Chloride Sodium Potassium Chloride Carbon Dioxide POC BUN BUN Creatinine Glucose POC Glucose 155 H Calcium Magnesium AST Alkaline Phosphatase Lactate Dehydrogenase Total Creatine Kinase Total Protein Albumin Urine WBC (Auto) Crossmatch 06/28/16 06/28/16 06/28/16 16:27 20:47 22:59 WBC RBC Hgb POC Hgb Hct POC Hct MCH MCHC RDW Plt Count Lymph % (Auto) [place] % (Auto) Lymph # [place] # Baso # Seg Neutrophils % Seg Neuts % (Manual) Lymphocytes % (Manual) Monocytes % (Manual) Nucleated RBC % Seg Neutrophils # Seg Neutrophils # Man Lymphocytes # (Manual) Monocytes # (Manual) PT INR APTT Fibrinogen Heparin Anti-Xa Level 1.16 H POC ABG pH POC ABG pCO2 POC ABG pO2 POC Potassium POC Chloride Sodium Potassium Chloride Carbon Dioxide POC BUN BUN Creatinine Glucose POC Glucose 193 H 126 H Calcium Magnesium AST Alkaline Phosphatase Lactate Dehydrogenase Total Creatine Kinase Total Protein Albumin Urine WBC (Auto) Crossmatch 06/29/16 06/29/16 06/29/16 05:51 09:10 09:10 WBC RBC Hgb POC Hgb Hct POC Hct MCH MCHC RDW Plt Count Lymph % (Auto) [place] % (Auto) Lymph # [place] # Baso # Seg Neutrophils % Seg Neuts % (Manual) Lymphocytes % (Manual) Monocytes % (Manual) Nucleated RBC % Seg Neutrophils # Seg Neutrophils # Man Lymphocytes # (Manual) Monocytes # (Manual) PT INR APTT Fibrinogen Heparin Anti-Xa Level 0.92 H POC ABG pH POC ABG pCO2 POC ABG pO2 POC Potassium POC Chloride Sodium Potassium Chloride Carbon Dioxide POC BUN BUN 53 H Creatinine 3.7 H Glucose 139 H POC Glucose 121 H Calcium 8.2 L Magnesium AST Alkaline Phosphatase Lactate Dehydrogenase Total Creatine Kinase Total Protein Albumin Urine WBC (Auto) Crossmatch 06/29/16 06/30/16 06/30/16 21:22 05:09 08:07 WBC RBC Hgb 7.3 L POC Hgb Hct 21.9 L POC Hct MCH MCHC RDW Plt Count Lymph % (Auto) [place] % (Auto) Lymph # [place] # Baso # Seg Neutrophils % Seg Neuts % (Manual) Lymphocytes % (Manual) Monocytes % (Manual) Nucleated RBC % Seg Neutrophils # Seg Neutrophils # Man Lymphocytes # (Manual) Monocytes # (Manual) PT INR APTT Fibrinogen Heparin Anti-Xa Level POC ABG pH POC ABG pCO2 POC ABG pO2 POC Potassium POC Chloride Sodium Potassium Chloride Carbon Dioxide POC BUN BUN Creatinine Glucose POC Glucose 108 H 106 H Calcium Magnesium AST Alkaline Phosphatase Lactate Dehydrogenase Total Creatine Kinase Total Protein Albumin Urine WBC (Auto) Crossmatch 06/30/16 06/30/16 06/30/16 10:48 12:13 16:48 WBC RBC Hgb POC Hgb Hct POC Hct MCH MCHC RDW Plt Count Lymph % (Auto) [place] % (Auto) Lymph # [place] # Baso # Seg Neutrophils % Seg Neuts % (Manual) Lymphocytes % (Manual) Monocytes % (Manual) Nucleated RBC % Seg Neutrophils # Seg Neutrophils # Man Lymphocytes # (Manual) Monocytes # (Manual) PT INR APTT Fibrinogen Heparin Anti-Xa Level POC ABG pH POC ABG pCO2 POC ABG pO2 POC Potassium POC Chloride Sodium Potassium Chloride Carbon Dioxide POC BUN BUN 46 H Creatinine 3.0 H Glucose POC Glucose 153 H 152 H Calcium Magnesium AST Alkaline Phosphatase Lactate Dehydrogenase Total Creatine Kinase Total Protein Albumin Urine WBC (Auto) Crossmatch 06/30/16 07/01/16 07/01/16 21:47 05:47 07:44 WBC 19.8 H RBC 2.45 L Hgb 7.2 L POC Hgb Hct 22.2 L POC Hct MCH MCHC RDW Plt Count 481 H Lymph % (Auto) 5.5 L [place] % (Auto) Lymph # 1.1 L [place] # 1.4 H Baso # Seg Neutrophils % 86.8 H Seg Neuts % (Manual) Lymphocytes % (Manual) Monocytes % (Manual) Nucleated RBC % Seg Neutrophils # 17.1 H Seg Neutrophils # Man Lymphocytes # (Manual) Monocytes # (Manual) PT INR APTT Fibrinogen Heparin Anti-Xa Level POC ABG pH POC ABG pCO2 POC ABG pO2 POC Potassium POC Chloride Sodium Potassium Chloride Carbon Dioxide POC BUN BUN Creatinine Glucose POC Glucose 162 H 124 H Calcium Magnesium AST Alkaline Phosphatase Lactate Dehydrogenase Total Creatine Kinase Total Protein Albumin Urine WBC (Auto) Crossmatch 07/01/16 07/01/16 07/01/16 07:44 11:55 16:16 WBC RBC Hgb POC Hgb Hct POC Hct MCH MCHC RDW Plt Count Lymph % (Auto) [place] % (Auto) Lymph # [place] # Baso # Seg Neutrophils % Seg Neuts % (Manual) Lymphocytes % (Manual) Monocytes % (Manual) Nucleated RBC % Seg Neutrophils # Seg Neutrophils # Man Lymphocytes # (Manual) Monocytes # (Manual) PT INR APTT Fibrinogen Heparin Anti-Xa Level POC ABG pH POC ABG pCO2 POC ABG pO2 POC Potassium POC Chloride Sodium Potassium 3.1 L Chloride Carbon Dioxide POC BUN BUN 38 H Creatinine 2.2 H Glucose 114 H POC Glucose 114 H 143 H Calcium Magnesium AST Alkaline Phosphatase Lactate Dehydrogenase Total Creatine Kinase Total Protein Albumin Urine WBC (Auto) Crossmatch 07/01/16 07/02/16 07/02/16 21:42 05:40 06:46 WBC 18.1 H RBC 2.45 L Hgb 7.3 L POC Hgb Hct 21.8 L POC Hct MCH MCHC RDW Plt Count 490 H Lymph % (Auto) 6.1 L [place] % (Auto) Lymph # 1.1 L [place] # 1.1 H Baso # 0.2 H Seg Neutrophils % 86.0 H Seg Neuts % (Manual) Lymphocytes % (Manual) Monocytes % (Manual) Nucleated RBC % Seg Neutrophils # 15.6 H Seg Neutrophils # Man Lymphocytes # (Manual) Monocytes # (Manual) PT INR APTT Fibrinogen Heparin Anti-Xa Level POC ABG pH POC ABG pCO2 POC ABG pO2 POC Potassium POC Chloride Sodium Potassium Chloride Carbon Dioxide POC BUN BUN Creatinine Glucose POC Glucose 135 H 135 H Calcium Magnesium AST Alkaline Phosphatase Lactate Dehydrogenase Total Creatine Kinase Total Protein Albumin Urine WBC (Auto) Crossmatch 07/02/16 07/02/16 07/02/16 06:46 06:49 11:23 WBC RBC Hgb POC Hgb Hct POC Hct MCH MCHC RDW Plt Count Lymph % (Auto) [place] % (Auto) Lymph # [place] # Baso # Seg Neutrophils % Seg Neuts % (Manual) Lymphocytes % (Manual) Monocytes % (Manual) Nucleated RBC % Seg Neutrophils # Seg Neutrophils # Man Lymphocytes # (Manual) Monocytes # (Manual) PT INR APTT Fibrinogen Heparin Anti-Xa Level POC ABG pH POC ABG pCO2 POC ABG pO2 POC Potassium POC Chloride Sodium Potassium 2.8 L* Chloride Carbon Dioxide POC BUN BUN 30 H Creatinine 1.8 H Glucose 121 H POC Glucose 121 H Calcium 8.1 L Magnesium 1.3 L AST Alkaline Phosphatase Lactate Dehydrogenase Total Creatine Kinase Total Protein Albumin Urine WBC (Auto) Crossmatch 07/02/16 07/02/16 07/03/16 17:02 21:31 05:35 WBC RBC Hgb POC Hgb Hct POC Hct MCH MCHC RDW Plt Count Lymph % (Auto) [place] % (Auto) Lymph # [place] # Baso # Seg Neutrophils % Seg Neuts % (Manual) Lymphocytes % (Manual) Monocytes % (Manual) Nucleated RBC % Seg Neutrophils # Seg Neutrophils # Man Lymphocytes # (Manual) Monocytes # (Manual) PT INR APTT Fibrinogen Heparin Anti-Xa Level POC ABG pH POC ABG pCO2 POC ABG pO2 POC Potassium POC Chloride Sodium Potassium Chloride Carbon Dioxide POC BUN BUN Creatinine Glucose POC Glucose 121 H 159 H 149 H Calcium Magnesium AST Alkaline Phosphatase Lactate Dehydrogenase Total Creatine Kinase Total Protein Albumin Urine WBC (Auto) Crossmatch 07/03/16 07/03/16 07/03/16 06:45 06:45 06:45 WBC 16.8 H RBC 2.21 L Hgb 6.5 L POC Hgb Hct 19.4 L* POC Hct MCH MCHC RDW Plt Count 503 H Lymph % (Auto) 6.4 L [place] % (Auto) Lymph # 1.1 L [place] # 1.1 H Baso # Seg Neutrophils % 85.6 H Seg Neuts % (Manual) Lymphocytes % (Manual) Monocytes % (Manual) Nucleated RBC % Seg Neutrophils # 14.4 H Seg Neutrophils # Man Lymphocytes # (Manual) Monocytes # (Manual) PT INR APTT Fibrinogen Heparin Anti-Xa Level POC ABG pH POC ABG pCO2 POC ABG pO2 POC Potassium POC Chloride Sodium Potassium 2.9 L* Chloride Carbon Dioxide POC BUN BUN 21 H Creatinine 1.6 H Glucose 126 H POC Glucose Calcium 8.0 L Magnesium 1.6 L AST Alkaline Phosphatase Lactate Dehydrogenase Total Creatine Kinase Total Protein Albumin Urine WBC (Auto) Crossmatch 07/03/16 07/03/16 07/03/16 12:54 19:00 20:01 WBC RBC Hgb POC Hgb Hct POC Hct MCH MCHC RDW Plt Count Lymph % (Auto) [place] % (Auto) Lymph # [place] # Baso # Seg Neutrophils % Seg Neuts % (Manual) Lymphocytes % (Manual) Monocytes % (Manual) Nucleated RBC % Seg Neutrophils # Seg Neutrophils # Man Lymphocytes # (Manual) Monocytes # (Manual) PT INR APTT Fibrinogen Heparin Anti-Xa Level POC ABG pH 7.302 L POC ABG pCO2 49.8 H POC ABG pO2 422 H POC Potassium POC Chloride Sodium Potassium Chloride Carbon Dioxide POC BUN BUN Creatinine Glucose POC Glucose 129 H Calcium Magnesium AST Alkaline Phosphatase Lactate Dehydrogenase Total Creatine Kinase Total Protein Albumin Urine WBC (Auto) Crossmatch See Detail 07/03/16 07/04/16 07/04/16 23:09 04:30 04:30 WBC 19.6 H RBC 3.21 L Hgb 9.4 L POC Hgb Hct 28.2 L POC Hct MCH MCHC RDW Plt Count Lymph % (Auto) 6.5 L [place] % (Auto) Lymph # [place] # 1.2 H Baso # Seg Neutrophils % 86.4 H Seg Neuts % (Manual) Lymphocytes % (Manual) Monocytes % (Manual) Nucleated RBC % Seg Neutrophils # 16.9 H Seg Neutrophils # Man Lymphocytes # (Manual) Monocytes # (Manual) PT INR APTT Fibrinogen Heparin Anti-Xa Level POC ABG pH POC ABG pCO2 POC ABG pO2 POC Potassium POC Chloride Sodium Potassium 3.5 L D Chloride 111.2 H Carbon Dioxide 20 L POC BUN BUN 18 H Creatinine Glucose POC Glucose 111 H Calcium 7.0 L Magnesium AST Alkaline Phosphatase Lactate Dehydrogenase Total Creatine Kinase Total Protein Albumin Urine WBC (Auto) Crossmatch 07/04/16 07/04/16 07/04/16 05:44 12:50 14:33 WBC RBC Hgb POC Hgb Hct POC Hct MCH MCHC RDW Plt Count Lymph % (Auto) [place] % (Auto) Lymph # [place] # Baso # Seg Neutrophils % Seg Neuts % (Manual) Lymphocytes % (Manual) Monocytes % (Manual) Nucleated RBC % Seg Neutrophils # Seg Neutrophils # Man Lymphocytes # (Manual) Monocytes # (Manual) PT INR APTT Fibrinogen Heparin Anti-Xa Level POC ABG pH 7.465 H 7.468 H POC ABG pCO2 29.5 L 29.1 L 33.1 L POC ABG pO2 110 H 39 L POC Potassium POC Chloride Sodium Potassium Chloride Carbon Dioxide POC BUN BUN Creatinine Glucose POC Glucose Calcium Magnesium AST Alkaline Phosphatase Lactate Dehydrogenase Total Creatine Kinase Total Protein Albumin Urine WBC (Auto) Crossmatch 07/04/16 07/05/16 07/05/16 16:49 00:20 04:19 WBC 16.2 H RBC 3.44 L Hgb POC Hgb Hct POC Hct MCH MCHC RDW Plt Count Lymph % (Auto) 5.2 L [place] % (Auto) 7.5 H Lymph # 0.8 L [place] # 1.2 H Baso # Seg Neutrophils % 86.5 H Seg Neuts % (Manual) Lymphocytes % (Manual) Monocytes % (Manual) Nucleated RBC % Seg Neutrophils # 14.0 H Seg Neutrophils # Man Lymphocytes # (Manual) Monocytes # (Manual) PT INR APTT Fibrinogen Heparin Anti-Xa Level POC ABG pH POC ABG pCO2 31.1 L POC ABG pO2 110 H POC Potassium POC Chloride Sodium Potassium Chloride Carbon Dioxide POC BUN BUN Creatinine Glucose POC Glucose 168 H Calcium Magnesium AST Alkaline Phosphatase Lactate Dehydrogenase Total Creatine Kinase Total Protein Albumin Urine WBC (Auto) Crossmatch 07/05/16 07/05/16 07/05/16 04:19 06:01 09:54 WBC RBC Hgb POC Hgb Hct POC Hct MCH MCHC RDW Plt Count Lymph % (Auto) [place] % (Auto) Lymph # [place] # Baso # Seg Neutrophils % Seg Neuts % (Manual) Lymphocytes % (Manual) Monocytes % (Manual) Nucleated RBC % Seg Neutrophils # Seg Neutrophils # Man Lymphocytes # (Manual) Monocytes # (Manual) PT INR APTT Fibrinogen Heparin Anti-Xa Level POC ABG pH POC ABG pCO2 POC ABG pO2 POC Potassium POC Chloride Sodium 146 H Potassium 3.5 L Chloride 109.1 H Carbon Dioxide POC BUN BUN Creatinine Glucose 135 H POC Glucose 146 H 284 H Calcium 7.8 L Magnesium AST Alkaline Phosphatase Lactate Dehydrogenase Total Creatine Kinase Total Protein Albumin Urine WBC (Auto) Crossmatch 07/05/16 07/06/16 07/06/16 13:35 04:40 04:40 WBC 17.7 H RBC 3.32 L Hgb 9.8 L POC Hgb Hct 29.8 L POC Hct MCH MCHC RDW Plt Count Lymph % (Auto) [place] % (Auto) Lymph # [place] # Baso # Seg Neutrophils % Seg Neuts % (Manual) 85.0 H Lymphocytes % (Manual) 4.0 L Monocytes % (Manual) 10.0 H Nucleated RBC % Seg Neutrophils # Seg Neutrophils # Man 15.0 H Lymphocytes # (Manual) 0.7 L Monocytes # (Manual) 1.8 H PT INR APTT Fibrinogen Heparin Anti-Xa Level POC ABG pH POC ABG pCO2 POC ABG pO2 POC Potassium POC Chloride Sodium Potassium 3.5 L Chloride Carbon Dioxide 21 L POC BUN BUN Creatinine Glucose 108 H POC Glucose 130 H Calcium 7.8 L Magnesium AST Alkaline Phosphatase Lactate Dehydrogenase Total Creatine Kinase Total Protein Albumin Urine WBC (Auto) Crossmatch 07/06/16 07/06/16 07/06/16 07:46 11:49 15:31 WBC RBC Hgb POC Hgb Hct POC Hct MCH MCHC RDW Plt Count Lymph % (Auto) [place] % (Auto) Lymph # [place] # Baso # Seg Neutrophils % Seg Neuts % (Manual) Lymphocytes % (Manual) Monocytes % (Manual) Nucleated RBC % Seg Neutrophils # Seg Neutrophils # Man Lymphocytes # (Manual) Monocytes # (Manual) PT INR APTT Fibrinogen Heparin Anti-Xa Level POC ABG pH POC ABG pCO2 POC ABG pO2 POC Potassium POC Chloride Sodium Potassium Chloride Carbon Dioxide POC BUN BUN Creatinine Glucose POC Glucose 149 H 146 H 135 H Calcium Magnesium AST Alkaline Phosphatase Lactate Dehydrogenase Total Creatine Kinase Total Protein Albumin Urine WBC (Auto) Crossmatch 07/06/16 07/06/16 07/07/16 17:17 20:59 04:53 WBC 15.5 H RBC 3.55 L Hgb POC Hgb Hct POC Hct MCH MCHC RDW Plt Count Lymph % (Auto) 4.9 L [place] % (Auto) Lymph # 0.8 L [place] # 0.9 H Baso # Seg Neutrophils % 87.9 H Seg Neuts % (Manual) Lymphocytes % (Manual) Monocytes % (Manual) Nucleated RBC % Seg Neutrophils # 13.7 H Seg Neutrophils # Man Lymphocytes # (Manual) Monocytes # (Manual) PT INR APTT Fibrinogen Heparin Anti-Xa Level POC ABG pH POC ABG pCO2 POC ABG pO2 POC Potassium POC Chloride Sodium Potassium Chloride Carbon Dioxide POC BUN BUN Creatinine Glucose POC Glucose 140 H Calcium Magnesium AST Alkaline Phosphatase Lactate Dehydrogenase Total Creatine Kinase Total Protein Albumin Urine WBC (Auto) 67.0 H Crossmatch 07/07/16 07/07/16 07/07/16 04:53 06:13 07:15 WBC RBC Hgb POC Hgb Hct POC Hct MCH MCHC RDW Plt Count Lymph % (Auto) [place] % (Auto) Lymph # [place] # Baso # Seg Neutrophils % Seg Neuts % (Manual) Lymphocytes % (Manual) Monocytes % (Manual) Nucleated RBC % Seg Neutrophils # Seg Neutrophils # Man Lymphocytes # (Manual) Monocytes # (Manual) PT INR APTT Fibrinogen Heparin Anti-Xa Level POC ABG pH POC ABG pCO2 POC ABG pO2 POC Potassium POC Chloride Sodium Potassium 3.4 L Chloride Carbon Dioxide POC BUN BUN Creatinine Glucose 104 H POC Glucose 122 H 134 H Calcium 8.0 L Magnesium AST Alkaline Phosphatase Lactate Dehydrogenase Total Creatine Kinase Total Protein Albumin Urine WBC (Auto) Crossmatch 07/07/16 07/07/16 07/07/16 08:06 08:06 10:31 WBC RBC Hgb POC Hgb Hct POC Hct MCH MCHC RDW Plt Count Lymph % (Auto) [place] % (Auto) Lymph # [place] # Baso # Seg Neutrophils % Seg Neuts % (Manual) Lymphocytes % (Manual) Monocytes % (Manual) Nucleated RBC % Seg Neutrophils # Seg Neutrophils # Man Lymphocytes # (Manual) Monocytes # (Manual) PT INR APTT Fibrinogen Heparin Anti-Xa Level POC ABG pH POC ABG pCO2 POC ABG pO2 POC Potassium POC Chloride Sodium Potassium Chloride Carbon Dioxide POC BUN BUN Creatinine Glucose 111 H POC Glucose 145 H Calcium 7.9 L Magnesium AST 53 H Alkaline Phosphatase 164 H Lactate Dehydrogenase Total Creatine Kinase Total Protein 6.2 L Albumin 1.4 L Urine WBC (Auto) Crossmatch See Detail 07/07/16 07/07/16 07/07/16 12:08 13:57 16:44 WBC RBC Hgb 9.7 L POC Hgb Hct 30.1 L POC Hct MCH MCHC RDW Plt Count Lymph % (Auto) [place] % (Auto) Lymph # [place] # Baso # Seg Neutrophils % Seg Neuts % (Manual) Lymphocytes % (Manual) Monocytes % (Manual) Nucleated RBC % Seg Neutrophils # Seg Neutrophils # Man Lymphocytes # (Manual) Monocytes # (Manual) PT INR APTT Fibrinogen Heparin Anti-Xa Level POC ABG pH POC ABG pCO2 POC ABG pO2 POC Potassium POC Chloride Sodium Potassium Chloride Carbon Dioxide POC BUN BUN Creatinine Glucose POC Glucose 159 H 173 H Calcium Magnesium AST Alkaline Phosphatase Lactate Dehydrogenase Total Creatine Kinase Total Protein Albumin Urine WBC (Auto) Crossmatch 07/07/16 07/08/16 07/08/16 23:31 07:27 12:16 WBC RBC Hgb POC Hgb Hct POC Hct MCH MCHC RDW Plt Count Lymph % (Auto) [place] % (Auto) Lymph # [place] # Baso # Seg Neutrophils % Seg Neuts % (Manual) Lymphocytes % (Manual) Monocytes % (Manual) Nucleated RBC % Seg Neutrophils # Seg Neutrophils # Man Lymphocytes # (Manual) Monocytes # (Manual) PT INR APTT Fibrinogen Heparin Anti-Xa Level POC ABG pH POC ABG pCO2 POC ABG pO2 POC Potassium POC Chloride Sodium Potassium Chloride Carbon Dioxide POC BUN BUN Creatinine Glucose POC Glucose 163 H 149 H 150 H Calcium Magnesium AST Alkaline Phosphatase Lactate Dehydrogenase Total Creatine Kinase Total Protein Albumin Urine WBC (Auto) Crossmatch 07/08/16 07/08/16 07/08/16 12:50 16:46 21:45 WBC RBC Hgb POC Hgb Hct POC Hct MCH MCHC RDW Plt Count Lymph % (Auto) [place] % (Auto) Lymph # [place] # Baso # Seg Neutrophils % Seg Neuts % (Manual) Lymphocytes % (Manual) Monocytes % (Manual) Nucleated RBC % Seg Neutrophils # Seg Neutrophils # Man Lymphocytes # (Manual) Monocytes # (Manual) PT INR APTT Fibrinogen Heparin Anti-Xa Level POC ABG pH POC ABG pCO2 POC ABG pO2 POC Potassium POC Chloride Sodium Potassium Chloride Carbon Dioxide 21 L POC BUN BUN Creatinine Glucose 126 H POC Glucose 143 H 134 H Calcium 7.5 L Magnesium AST Alkaline Phosphatase Lactate Dehydrogenase Total Creatine Kinase Total Protein Albumin Urine WBC (Auto) Crossmatch 07/09/16 07/09/16 07/09/16 07:31 07:31 08:07 WBC RBC Hgb POC Hgb Hct POC Hct MCH MCHC RDW Plt Count Lymph % (Auto) [place] % (Auto) Lymph # [place] # Baso # Seg Neutrophils % Seg Neuts % (Manual) Lymphocytes % (Manual) Monocytes % (Manual) Nucleated RBC % Seg Neutrophils # Seg Neutrophils # Man Lymphocytes # (Manual) Monocytes # (Manual) PT INR APTT Fibrinogen Heparin Anti-Xa Level POC ABG pH POC ABG pCO2 POC ABG pO2 POC Potassium POC Chloride Sodium Potassium Chloride Carbon Dioxide POC BUN BUN Creatinine Glucose 117 H POC Glucose 132 H Calcium 7.5 L Magnesium AST Alkaline Phosphatase 136 H Lactate Dehydrogenase 285 H Total Creatine Kinase 297 H Total Protein 5.4 L Albumin 1.5 L Urine WBC (Auto) Crossmatch 07/09/16 07/09/16 07/09/16 09:55 11:10 16:26 WBC 13.4 H RBC 1.95 L Hgb 5.8 L* D POC Hgb Hct 17.7 L* D POC Hct MCH MCHC RDW 15.5 H Plt Count Lymph % (Auto) 9.4 L [place] % (Auto) 8.3 H Lymph # [place] # 1.1 H Baso # Seg Neutrophils % 81.2 H Seg Neuts % (Manual) Lymphocytes % (Manual) Monocytes % (Manual) Nucleated RBC % Seg Neutrophils # 10.9 H Seg Neutrophils # Man Lymphocytes # (Manual) Monocytes # (Manual) PT INR APTT Fibrinogen Heparin Anti-Xa Level POC ABG pH POC ABG pCO2 POC ABG pO2 POC Potassium POC Chloride Sodium Potassium Chloride Carbon Dioxide POC BUN BUN Creatinine Glucose POC Glucose 240 H 113 H Calcium Magnesium AST Alkaline Phosphatase Lactate Dehydrogenase Total Creatine Kinase Total Protein Albumin Urine WBC (Auto) Crossmatch 07/09/16 07/10/16 07/10/16 21:45 04:10 09:03 WBC 15.1 H RBC 3.00 L Hgb 8.8 L D POC Hgb Hct 26.2 L D POC Hct MCH MCHC RDW 15.4 H Plt Count Lymph % (Auto) 8.4 L [place] % (Auto) 8.4 H Lymph # [place] # 1.3 H Baso # Seg Neutrophils % 82.5 H Seg Neuts % (Manual) Lymphocytes % (Manual) Monocytes % (Manual) Nucleated RBC % Seg Neutrophils # 12.5 H Seg Neutrophils # Man Lymphocytes # (Manual) Monocytes # (Manual) PT INR APTT Fibrinogen Heparin Anti-Xa Level POC ABG pH POC ABG pCO2 POC ABG pO2 POC Potassium POC Chloride Sodium Potassium Chloride Carbon Dioxide POC BUN BUN Creatinine Glucose POC Glucose 113 H 122 H Calcium Magnesium AST Alkaline Phosphatase Lactate Dehydrogenase Total Creatine Kinase Total Protein Albumin Urine WBC (Auto) Crossmatch 07/10/16 07/10/16 07/10/16 11:38 15:36 21:45 WBC RBC Hgb POC Hgb Hct POC Hct MCH MCHC RDW Plt Count Lymph % (Auto) [place] % (Auto) Lymph # [place] # Baso # Seg Neutrophils % Seg Neuts % (Manual) Lymphocytes % (Manual) Monocytes % (Manual) Nucleated RBC % Seg Neutrophils # Seg Neutrophils # Man Lymphocytes # (Manual) Monocytes # (Manual) PT INR APTT Fibrinogen Heparin Anti-Xa Level POC ABG pH POC ABG pCO2 POC ABG pO2 POC Potassium POC Chloride Sodium Potassium Chloride Carbon Dioxide POC BUN BUN Creatinine Glucose POC Glucose 146 H 131 H 141 H Calcium Magnesium AST Alkaline Phosphatase Lactate Dehydrogenase Total Creatine Kinase Total Protein Albumin Urine WBC (Auto) Crossmatch 07/11/16 07/11/16 07/11/16 05:10 07:40 11:45 WBC RBC Hgb POC Hgb Hct POC Hct MCH MCHC RDW Plt Count Lymph % (Auto) [place] % (Auto) Lymph # [place] # Baso # Seg Neutrophils % Seg Neuts % (Manual) Lymphocytes % (Manual) Monocytes % (Manual) Nucleated RBC % Seg Neutrophils # Seg Neutrophils # Man Lymphocytes # (Manual) Monocytes # (Manual) PT INR APTT Fibrinogen Heparin Anti-Xa Level POC ABG pH POC ABG pCO2 POC ABG pO2 POC Potassium POC Chloride Sodium Potassium Chloride Carbon Dioxide POC BUN BUN Creatinine Glucose 107 H POC Glucose 114 H 116 H Calcium 7.7 L Magnesium AST 81 H Alkaline Phosphatase 153 H Lactate Dehydrogenase Total Creatine Kinase Total Protein 6.0 L Albumin 1.8 L Urine WBC (Auto) Crossmatch 07/11/16 07/11/16 07/12/16 16:22 19:45 08:39 WBC RBC Hgb POC Hgb Hct POC Hct MCH MCHC RDW Plt Count Lymph % (Auto) [place] % (Auto) Lymph # [place] # Baso # Seg Neutrophils % Seg Neuts % (Manual) Lymphocytes % (Manual) Monocytes % (Manual) Nucleated RBC % Seg Neutrophils # Seg Neutrophils # Man Lymphocytes # (Manual) Monocytes # (Manual) PT INR APTT Fibrinogen Heparin Anti-Xa Level POC ABG pH POC ABG pCO2 POC ABG pO2 POC Potassium POC Chloride Sodium Potassium Chloride Carbon Dioxide POC BUN BUN Creatinine Glucose POC Glucose 110 H 106 H 124 H Calcium Magnesium AST Alkaline Phosphatase Lactate Dehydrogenase Total Creatine Kinase Total Protein Albumin Urine WBC (Auto) Crossmatch 07/12/16 07/12/16 07/13/16 11:31 16:36 07:05 WBC 12.4 H RBC 2.93 L Hgb 8.5 L POC Hgb Hct 25.6 L POC Hct MCH MCHC RDW Plt Count Lymph % (Auto) 11.2 L [place] % (Auto) 7.5 H Lymph # [place] # 0.9 H Baso # Seg Neutrophils % 80.6 H Seg Neuts % (Manual) Lymphocytes % (Manual) Monocytes % (Manual) Nucleated RBC % Seg Neutrophils # 10.0 H Seg Neutrophils # Man Lymphocytes # (Manual) Monocytes # (Manual) PT INR APTT Fibrinogen Heparin Anti-Xa Level POC ABG pH POC ABG pCO2 POC ABG pO2 POC Potassium POC Chloride Sodium Potassium Chloride Carbon Dioxide POC BUN BUN Creatinine Glucose POC Glucose 128 H 119 H Calcium Magnesium AST Alkaline Phosphatase Lactate Dehydrogenase Total Creatine Kinase Total Protein Albumin Urine WBC (Auto) Crossmatch 07/13/16 07/13/16 07/13/16 07:30 11:41 13:45 WBC RBC Hgb POC Hgb Hct POC Hct MCH MCHC RDW Plt Count Lymph % (Auto) [place] % (Auto) Lymph # [place] # Baso # Seg Neutrophils % Seg Neuts % (Manual) Lymphocytes % (Manual) Monocytes % (Manual) Nucleated RBC % Seg Neutrophils # Seg Neutrophils # Man Lymphocytes # (Manual) Monocytes # (Manual) PT INR APTT Fibrinogen Heparin Anti-Xa Level POC ABG pH POC ABG pCO2 POC ABG pO2 POC Potassium POC Chloride Sodium Potassium Chloride Carbon Dioxide POC BUN BUN Creatinine Glucose POC Glucose 133 H 129 H Calcium Magnesium AST Alkaline Phosphatase Lactate Dehydrogenase Total Creatine Kinase Total Protein Albumin Urine WBC (Auto) Crossmatch See Detail 07/13/16 07/13/16 07/14/16 15:28 23:29 08:15 WBC RBC Hgb POC Hgb Hct POC Hct MCH MCHC RDW Plt Count Lymph % (Auto) [place] % (Auto) Lymph # [place] # Baso # Seg Neutrophils % Seg Neuts % (Manual) Lymphocytes % (Manual) Monocytes % (Manual) Nucleated RBC % Seg Neutrophils # Seg Neutrophils # Man Lymphocytes # (Manual) Monocytes # (Manual) PT INR APTT Fibrinogen Heparin Anti-Xa Level POC ABG pH POC ABG pCO2 POC ABG pO2 POC Potassium POC Chloride Sodium Potassium Chloride Carbon Dioxide POC BUN BUN Creatinine Glucose POC Glucose 119 H 113 H 130 H Calcium Magnesium AST Alkaline Phosphatase Lactate Dehydrogenase Total Creatine Kinase Total Protein Albumin Urine WBC (Auto) Crossmatch 07/14/16 07/14/16 07/14/16 08:30 12:12 17:00 WBC RBC Hgb POC Hgb Hct POC Hct MCH MCHC RDW Plt Count Lymph % (Auto) [place] % (Auto) Lymph # [place] # Baso # Seg Neutrophils % Seg Neuts % (Manual) Lymphocytes % (Manual) Monocytes % (Manual) Nucleated RBC % Seg Neutrophils # Seg Neutrophils # Man Lymphocytes # (Manual) Monocytes # (Manual) PT INR APTT Fibrinogen Heparin Anti-Xa Level POC ABG pH POC ABG pCO2 POC ABG pO2 POC Potassium POC Chloride Sodium 135 L Potassium Chloride Carbon Dioxide POC BUN BUN Creatinine Glucose 113 H POC Glucose 115 H 119 H Calcium 7.8 L Magnesium AST Alkaline Phosphatase Lactate Dehydrogenase Total Creatine Kinase Total Protein Albumin Urine WBC (Auto) Crossmatch 07/14/16 07/15/16 07/15/16 Unknown 04:15 04:15 WBC 13.9 H 15.3 H RBC Hgb POC Hgb Hct POC Hct MCH MCHC RDW Plt Count Lymph % (Auto) 9.9 L 9.3 L [place] % (Auto) Lymph # [place] # 0.9 H Baso # Seg Neutrophils % 83.8 H 83.9 H Seg Neuts % (Manual) Lymphocytes % (Manual) Monocytes % (Manual) Nucleated RBC % Seg Neutrophils # 11.7 H 12.9 H Seg Neutrophils # Man Lymphocytes # (Manual) Monocytes # (Manual) PT INR APTT Fibrinogen Heparin Anti-Xa Level POC ABG pH POC ABG pCO2 POC ABG pO2 POC Potassium POC Chloride Sodium 131 L Potassium Chloride 96.5 L Carbon Dioxide POC BUN BUN Creatinine 0.6 L Glucose 104 H POC Glucose Calcium 8.0 L Magnesium AST Alkaline Phosphatase Lactate Dehydrogenase Total Creatine Kinase Total Protein Albumin Urine WBC (Auto) Crossmatch
[2016-07-15] MEDS: PROTONIX PO SCH ×2 (11:42→13:43)
[2016-07-15] MEDS: FERROUS SULFATE PO SCH (11:42)
[2016-07-15] MEDS: BABY ASPIRIN PO SCH (11:42)
[2016-07-15] MEDS: K-DUR PO SCH (11:42)
[2016-07-15] MEDS: PLAVIX PO SCH (11:42)
[2016-07-15] MEDS: TENORMIN PO SCH ×2 (11:44→16:13)
[2016-07-15] MEDS: THERMAZENE 50 GRAM TP SCH (11:44)
[2016-07-15] MEDS: SENOKOT S PO SCH ×2 (11:44→21:28)
--- NOTE | 2016-07-15 11:57 | Operative Report ---
Operative Report Operative Report: Operative note: Date: 07/15/2016 Preoperative diagnosis: Left leg ischemia Postoperative diagnosis: Same. Operation: Left above-knee amputation, excisional debridement of left groin Surgeon: Kyia Hernandez. Asst.: Todd Tillman Anesthesia: Gen. EBL: 200 mL Findings: tissue and some purulent output at the medial side around distal incision for femoropopliteal bypass Indications: 55-year-old female with multiple previous procedures including left femoropopliteal bypass, left femoral washout and ligation of bypass developed left leg ischemia. Her and her family explaining risks and benefits of procedure and he chose to proceed, informed consent was obtained. Operative details: Patient was brought to the operating room and placed under general anesthesia. Timeout performed and all team members in agreement. [place] incision was made with 10 blade curving around anterior and posterior flaps and carried down with electrocoutery down to the fascia. Previous bypass was identified and divided and ligated as well as femoral artery and vein. Muscles were divided using electrocautery down to the femur. Bone was cleaned with periosteal elevator and divided with electric saw. The rest of the muscle was divided with amputation knife. Bone edges were smoothed. Hemostasis was achieved with suture ligatures and electrocautery. Wound was irrigated with saline. Muscle was approximated around the femur edge. Fascia was closed with interrupted Vicryl stitches. Medial third of stump was left open because of infection. Lateral two thirds of stump was closed with 3-0 nylon mattress stitches and samaria. Medial third of stump was closed with VAC dressing. Left groin VAC dressing was changed. Excisional debridement of left groin and performed. All needles and sponge counts were correct 2. Patient tolerated the procedure well and was transferred to PACU in stable condition.
--- NOTE | 2016-07-15 13:18 | Post Anesthesia Evaluation ---
- Post Anesthesia Evaluation Patient Participated: Yes Airway Patent: Yes Stable Respiratory Function: Yes Nausea/Vomiting: No Temp > 96.8F: Yes Pain Manageable: Yes Adequeate Hydration: Yes Anesthesia Complications: No Block Receding Appropriately: Not Applicable Patient on Ventilator: No
[2016-07-15] MEDS: PERCOCET 5/325 PO PRN ×2 (13:20→22:23)
--- NOTE | 2016-07-15 14:28 | Progress Note ---
Assessment and Plan Assessment and plan: --Hypertension Control continue current antihypertensives and when necessary hydralazine --Type 2 diabetes mellitus Blood sugar soft between 105 and 114 Continue Accu-Chek sliding scale coverage and ADA diet, insulin as needed --Severe peripheral vascular disease status post vascular procedures Status post left above-knee amputation , supportive care --groin cellulitis/wound infection Status post-debridement, continue IV antibiotics ID following --DVT prophylaxis Postoperative stage/per surgery Patient's condition treatment plan discussed in detail with the patient and the family members at the bedside as well as the nurse History Interval history: Patient seen and evaluated medical records reviewed, underwent Uncomplicated left above-knee amputation and excisional debridement of the left groin Patient complains of some pain, 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 Alert awake mild distress secondary to pain Vital signs reviewed, stable Hospitalist Physical - Constitutional Vitals: Temp Pulse Resp BP Pulse Ox 97.4 F L 110 H 18 168/97 99 07/15/16 12:15 07/15/16 12:31 07/15/16 12:31 07/15/16 12:31 07/15/16 12:31 General appearance: Present: mild distress, well-nourished, obese - EENT Eyes: Present: PERRL, EOM intact - Neck Neck: Present: supple, normal ROM - Respiratory Respiratory: negative: rales, rhonchi, wheezing - Cardiovascular Rhythm: regular Heart Sounds: Present: S1 & S2 - Extremities Extremities: abnormal (status post amputation) - Abdominal General gastrointestinal: soft, non-tender, non-distended, normal bowel sounds - Integumentary Integumentary: Present: clear, warm - Psychiatric Psychiatric: appropriate mood/affect, cooperative - Neurologic Neurologic: CNII-XII intact, moves all extremities Results - Labs CBC & Chem 7: 07/16/16 07:36 07/16/16 07:36 Labs: Laboratory Last Values WBC 15.3 K/mm3 (4.5-11.0) H 07/15/16 04:15 RBC 3.91 M/mm3 (3.65-5.03) 07/15/16 04:15 Hgb 11.0 gm/dl (10.1-14.3) 07/15/16 04:15 POC Hgb 6.5 (12-17) L 06/16/16 18:07 Hct 34.0 % (30.3-42.9) 07/15/16 04:15 POC Hct 19 (38-51) L 06/16/16 18:07 MCV 87 fl (79-97) 07/15/16 04:15 MCH 28 pg (28-32) 07/15/16 04:15 MCHC 32 % (30-34) 07/15/16 04:15 RDW 15.1 % (13.2-15.2) 07/15/16 04:15 Plt Count 339 K/mm3 (140-440) 07/15/16 04:15 Lymph % (Auto) 9.3 % (13.4-35.0) L 07/15/16 04:15 [place] % (Auto) 5.9 % (0.0-7.3) 07/15/16 04:15 Eos % (Auto) 0.3 % (0.0-4.3) 07/15/16 04:15 Baso % (Auto) 0.6 % (0.0-1.8) 07/15/16 04:15 Lymph # 1.4 K/mm3 (1.2-5.4) 07/15/16 04:15 [place] # 0.9 K/mm3 (0.0-0.8) H 07/15/16 04:15 Eos # 0.0 K/mm3 (0.0-0.4) 07/15/16 04:15 Baso # 0.1 K/mm3 (0.0-0.1) 07/15/16 04:15 Add Manual Diff TNR 07/09/16 07:31 Total Counted 100 07/06/16 04:40 Seg Neutrophils % 83.9 % (40.0-70.0) H 07/15/16 04:15 Seg Neuts % (Manual) 85.0 % (40.0-70.0) H 07/06/16 04:40 Band Neutrophils % 0 % 07/06/16 04:40 Lymphocytes % (Manual) 4.0 % (13.4-35.0) L 07/06/16 04:40 Reactive Lymphs % (Man) 1.0 % 07/06/16 04:40 Monocytes % (Manual) 10.0 % (0.0-7.3) H 07/06/16 04:40 Eosinophils % (Manual) 0 % (0.0-4.3) 07/06/16 04:40 Basophils % (Manual) 0 % (0.0-1.8) 07/06/16 04:40 Metamyelocytes % 0 % 07/06/16 04:40 Myelocytes % 0 % 07/06/16 04:40 Promyelocytes % 0 % 07/06/16 04:40 Blast Cells % 0 % 07/06/16 04:40 Nucleated RBC % Not Reportable 07/06/16 04:40 Seg Neutrophils # 12.9 K/mm3 (1.8-7.7) H 07/15/16 04:15 Seg Neutrophils # Man 15.0 K/mm3 (1.8-7.7) H 07/06/16 04:40 Band Neutrophils # 0.0 K/mm3 07/06/16 04:40 Lymphocytes # (Manual) 0.7 K/mm3 (1.2-5.4) L 07/06/16 04:40 Abs React Lymphs (Man) 0.2 K/mm3 07/06/16 04:40 Monocytes # (Manual) 1.8 K/mm3 (0.0-0.8) H 07/06/16 04:40 Eosinophils # (Manual) 0.0 K/mm3 (0.0-0.4) 07/06/16 04:40 Basophils # (Manual) 0.0 K/mm3 (0.0-0.1) 07/06/16 04:40 Metamyelocytes # 0.0 K/mm3 07/06/16 04:40 Myelocytes # 0.0 K/mm3 07/06/16 04:40 Promyelocytes # 0.0 K/mm3 07/06/16 04:40 Blast Cells # 0.0 K/mm3 07/06/16 04:40 WBC Morphology Not Reportable 07/06/16 04:40 Hypersegmented Neuts Not Reportable 07/06/16 04:40 Hyposegmented Neuts Not Reportable 07/06/16 04:40 Hypogranular Neuts Not Reportable 07/06/16 04:40 Smudge Cells Not Reportable 07/06/16 04:40 Toxic Granulation Not Reportable 07/06/16 04:40 Toxic Vacuolation Not Reportable 07/06/16 04:40 Dohle Bodies Not Reportable 07/06/16 04:40 Pelger-Huet Anomaly Not Reportable 07/06/16 04:40 Mary Rods Not Reportable 07/06/16 04:40 Platelet Estimate Appears normal 07/06/16 04:40 Clumped Platelets Not Reportable 07/06/16 04:40 Plt Clumps, EDTA Not Reportable 07/06/16 04:40 Large Platelets Not Reportable 07/06/16 04:40 Giant Platelets Not Reportable 07/06/16 04:40 Platelet Satelliting Not Reportable 07/06/16 04:40 Plt Morphology Comment Not Reportable 07/06/16 04:40 RBC Morphology Not Reportable 07/06/16 04:40 Dimorphic RBCs Not Reportable 07/06/16 04:40 Polychromasia Not Reportable 07/06/16 04:40 Hypochromasia Not Reportable 07/06/16 04:40 Poikilocytosis Not Reportable 07/06/16 04:40 Anisocytosis 1+ 07/06/16 04:40 Microcytosis Not Reportable 07/06/16 04:40 Macrocytosis Not Reportable 07/06/16 04:40 Spherocytes Not Reportable 07/06/16 04:40 Pappenheimer Bodies Not Reportable 07/06/16 04:40 Sickle Cells Not Reportable 07/06/16 04:40 Target Cells Not Reportable 07/06/16 04:40 Tear Drop Cells Not Reportable 07/06/16 04:40 Ovalocytes Not Reportable 07/06/16 04:40 Helmet Cells Not Reportable 07/06/16 04:40 [place] Bodies Not Reportable 07/06/16 04:40 [place] Rings Not Reportable 07/06/16 04:40 [place] Cells Not Reportable 07/06/16 04:40 Bite Cells Not Reportable 07/06/16 04:40 Crenated Cell Not Reportable 07/06/16 04:40 Elliptocytes Not Reportable 07/06/16 04:40 Acanthocytes (Spur) Not Reportable 07/06/16 04:40 Rouleaux Not Reportable 07/06/16 04:40 Hemoglobin C Crystals Not Reportable 07/06/16 04:40 Schistocytes Not Reportable 07/06/16 04:40 Malaria parasites Not Reportable 07/06/16 04:40 Sean Bodies Not Reportable 07/06/16 04:40 Haptoglobin 97 mg/dL (43-212) 07/09/16 14:09 Hem Pathologist Commnt No 07/06/16 04:40 PT 19.9 Sec. (12.2-14.9) H 06/26/16 22:57 INR 1.69 (0.87-1.13) H 06/26/16 22:57 APTT 32.8 Sec. (24.2-36.6) 06/26/16 22:57 Fibrinogen 522 mg/dl (211-480) H 06/13/16 09:45 Heparin Anti-Xa Level 0.45 U.I./ml (0.3-0.7) 06/29/16 20:31 POC ABG pH 7.436 (7.35-7.45) 07/04/16 16:49 POC ABG pCO2 31.1 (35-45) L 07/04/16 16:49 POC ABG pO2 110 (80-105) H 07/04/16 16:49 POC ABG HCO3 20.9 07/04/16 16:49 POC ABG Total CO2 22 07/04/16 16:49 POC ABG O2 Sat 99 07/04/16 16:49 POC ABG Base Excess -3 07/04/16 16:49 POC Sodium 146 mmol/L (138-146) 06/16/16 18:07 POC Potassium 3.5 (3.5-4.9) 06/16/16 18:07 POC Chloride 113 (98-109) H 06/16/16 18:07 FiO2 30 % 07/04/16 16:49 Sodium 131 mmol/L (137-145) L 07/15/16 04:15 Potassium 4.1 mmol/L (3.6-5.0) 07/15/16 04:15 Chloride 96.5 mmol/L (98-107) L 07/15/16 04:15 Carbon Dioxide 26 mmol/L (22-30) 07/15/16 04:15 Anion Gap 13 mmol/L 07/15/16 04:15 POC BUN 7 mg/dl (8-26) L 06/16/16 18:07 BUN 7 mg/dL (7-17) 07/15/16 04:15 Creatinine 0.6 mg/dL (0.7-1.2) L 07/15/16 04:15 Estimated GFR > 60 ml/min 07/15/16 04:15 BUN/Creatinine Ratio 11.66 % 07/15/16 04:15 Glucose 104 mg/dL (65-100) H 07/15/16 04:15 POC Glucose 114 (70-105) H 07/15/16 11:29 Calcium 8.0 mg/dL (8.4-10.2) L 07/15/16 04:15 Magnesium 1.6 mg/dL (1.7-2.3) L 07/03/16 06:45 Total Bilirubin 0.7 mg/dL (0.1-1.2) 07/11/16 05:10 AST 81 units/L (5-40) H 07/11/16 05:10 ALT 20 units/L (7-56) 07/11/16 05:10 Alkaline Phosphatase 153 units/L (35-129) H 07/11/16 05:10 Lactate Dehydrogenase 285 units/L (91-180) H 07/09/16 07:31 Total Creatine Kinase 297 units/L (30-135) H 07/09/16 07:31 Total Protein 6.0 g/dL (6.3-8.2) L 07/11/16 05:10 Albumin 1.8 g/dL (3.9-5) L 07/11/16 05:10 Albumin/Globulin Ratio 0.4 % 07/11/16 05:10 Urine Color Yellow (Yellow) 07/06/16 17:17 Urine Turbidity Slightly-cloudy (Clear) 07/06/16 17:17 Urine pH 6.0 (5.0-7.0) 07/06/16 17:17 Ur Specific [place] 1.011 (1.003-1.030) 07/06/16 17:17 Urine Protein 30 mg/dl mg/dL (Negative) 07/06/16 17:17 Urine Glucose (UA) Neg mg/dL (Negative) 07/06/16 17:17 Urine Ketones Neg mg/dL (Negative) 07/06/16 17:17 Urine Blood Lg (Negative) 07/06/16 17:17 Urine Nitrite Neg (Negative) 07/06/16 17:17 Urine Bilirubin Neg (Negative) 07/06/16 17:17 Urine Urobilinogen < 2.0 mg/dL (<2.0) 07/06/16 17:17 Ur Leukocyte Esterase Lg (Negative) 07/06/16 17:17 Urine WBC (Auto) 67.0 /HPF (0.0-6.0) H 07/06/16 17:17 Urine RBC (Auto) > 182.0 /HPF (0.0-6.0) 07/06/16 17:17 Blood Type O POSITIVE 07/13/16 13:45 Antibody Screen Negative 07/13/16 13:45 Crossmatch See Detail 07/13/16 13:45
[2016-07-15] MEDS: MORPHINE PCA 30MG/30ML IV SCH ×2 (15:08→22:14)
--- NOTE | 2016-07-15 21:23 | Event Note ---
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
[2016-07-16] MEDS: ZOSYN/NS 4.5GM/100ML 100 ML IV SCH ×3 (04:00→20:59)
[2016-07-16] MEDS: NOVOLOG SUB-Q SCH ×5 (08:14→22:21)
[2016-07-16 08:27] LABS: Basophils % (Auto) 0.3 % (0.0-1.8); Eosinophils % (Auto) 0.1 % (0.0-4.3); Hemoglobin 8.5 gm/dl (10.1-14.3); Mean Corpuscular HGB Conc 34 % (30-34); Mean Corpuscular Hemoglobin 30 pg (28-32); Mean Corpuscular Volume 87 fl (79-97); Platelet Count 361 K/mm3 (140-440); Red Blood Count 2.86 M/mm3 (3.65-5.03); Red Cell Distribution Width 14.7 % (13.2-15.2)
[2016-07-16 08:46] LABS: Anion Gap 13 mmol/L; Blood Urea Nitrogen 9 mg/dL (7-17); Carbon Dioxide 25 mmol/L (22-30); Chloride 101.5 mmol/L (98-107); Glucose 133 mg/dL (65-100); Potassium 3.9 mmol/L (3.6-5.0); Sodium 136 mmol/L (137-145)
--- NOTE | 2016-07-16 08:47 | Progress Note ---
Assessment and Plan Assessment and plan: --Anemia Patient received multiple units of blood transfusions in the past during this admission Today H&H dropped from 11-8.5 Closely monitor transfuse as needed --Hypertension Control continue current antihypertensives and when necessary hydralazine --Type 2 diabetes mellitus Blood sugar soft between 105 and 114 Continue Accu-Chek sliding scale coverage and ADA diet, insulin as needed --Severe peripheral vascular disease status post vascular procedures Status post left above-knee amputation --groin cellulitis/wound infection Status post-debridement, continue IV antibiotics ID following --DVT prophylaxis Postoperative stage/per surgery History Interval history: Sincerely and evaluated in her room in ICU medical records reviewed Feels slightly better 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 significant drop in H&H from 11 - 8.5 Patient is alert awake oriented 3 Vital signs reviewed stable Family member at the bedside Hospitalist Physical - Constitutional Vitals: Temp Pulse Resp BP Pulse Ox 98.3 F 88 17 126/54 99 07/16/16 08:00 07/16/16 08:27 07/16/16 08:27 07/16/16 08:27 07/16/16 08:27 General appearance: Present: no acute distress, well-nourished, obese - EENT Eyes: Present: PERRL, EOM intact - Neck Neck: Present: supple, normal ROM - Respiratory Respiratory effort: normal Respiratory: bilateral: diminished, negative: rales, rhonchi, wheezing - Cardiovascular Rhythm: regular Heart Sounds: Present: S1 & S2 - Extremities Extremities: No edema, normal temperature, normal color, abnormal (left above- the-knee amputation/surgical wound clean) - Abdominal General gastrointestinal: soft, non-tender, non-distended, normal bowel sounds - Integumentary Integumentary: Present: clear, warm - Psychiatric Psychiatric: appropriate mood/affect, cooperative - Neurologic Neurologic: CNII-XII intact, moves all extremities Results - Labs CBC & Chem 7: 07/16/16 07:36 07/16/16 07:36 Labs: Laboratory Last Values WBC 11.0 K/mm3 (4.5-11.0) 07/16/16 07:36 RBC 2.86 M/mm3 (3.65-5.03) L 07/16/16 07:36 Hgb 8.5 gm/dl (10.1-14.3) L 07/16/16 07:36 POC Hgb 6.5 (12-17) L 06/16/16 18:07 Hct 34.0 % (30.3-42.9) 07/15/16 04:15 POC Hct 19 (38-51) L 06/16/16 18:07 MCV 87 fl (79-97) 07/16/16 07:36 MCH 30 pg (28-32) 07/16/16 07:36 MCHC 34 % (30-34) 07/16/16 07:36 RDW 14.7 % (13.2-15.2) 07/16/16 07:36 Plt Count 361 K/mm3 (140-440) 07/16/16 07:36 Lymph % (Auto) 13.4 % (13.4-35.0) 07/16/16 07:36 [place] % (Auto) 8.5 % (0.0-7.3) H 07/16/16 07:36 Eos % (Auto) 0.1 % (0.0-4.3) 07/16/16 07:36 Baso % (Auto) 0.3 % (0.0-1.8) 07/16/16 07:36 Lymph # 1.5 K/mm3 (1.2-5.4) 07/16/16 07:36 [place] # 0.9 K/mm3 (0.0-0.8) H 07/16/16 07:36 Eos # 0.0 K/mm3 (0.0-0.4) 07/16/16 07:36 Baso # 0.0 K/mm3 (0.0-0.1) 07/16/16 07:36 Add Manual Diff TNR 07/09/16 07:31 Total Counted 100 07/06/16 04:40 Seg Neutrophils % 77.7 % (40.0-70.0) H 07/16/16 07:36 Seg Neuts % (Manual) 85.0 % (40.0-70.0) H 07/06/16 04:40 Band Neutrophils % 0 % 07/06/16 04:40 Lymphocytes % (Manual) 4.0 % (13.4-35.0) L 07/06/16 04:40 Reactive Lymphs % (Man) 1.0 % 07/06/16 04:40 Monocytes % (Manual) 10.0 % (0.0-7.3) H 07/06/16 04:40 Eosinophils % (Manual) 0 % (0.0-4.3) 07/06/16 04:40 Basophils % (Manual) 0 % (0.0-1.8) 07/06/16 04:40 Metamyelocytes % 0 % 07/06/16 04:40 Myelocytes % 0 % 07/06/16 04:40 Promyelocytes % 0 % 07/06/16 04:40 Blast Cells % 0 % 07/06/16 04:40 Nucleated RBC % Not Reportable 07/06/16 04:40 Seg Neutrophils # 8.5 K/mm3 (1.8-7.7) H 07/16/16 07:36 Seg Neutrophils # Man 15.0 K/mm3 (1.8-7.7) H 07/06/16 04:40 Band Neutrophils # 0.0 K/mm3 07/06/16 04:40 Lymphocytes # (Manual) 0.7 K/mm3 (1.2-5.4) L 07/06/16 04:40 Abs React Lymphs (Man) 0.2 K/mm3 07/06/16 04:40 Monocytes # (Manual) 1.8 K/mm3 (0.0-0.8) H 07/06/16 04:40 Eosinophils # (Manual) 0.0 K/mm3 (0.0-0.4) 07/06/16 04:40 Basophils # (Manual) 0.0 K/mm3 (0.0-0.1) 07/06/16 04:40 Metamyelocytes # 0.0 K/mm3 07/06/16 04:40 Myelocytes # 0.0 K/mm3 07/06/16 04:40 Promyelocytes # 0.0 K/mm3 07/06/16 04:40 Blast Cells # 0.0 K/mm3 07/06/16 04:40 WBC Morphology Not Reportable 07/06/16 04:40 Hypersegmented Neuts Not Reportable 07/06/16 04:40 Hyposegmented Neuts Not Reportable 07/06/16 04:40 Hypogranular Neuts Not Reportable 07/06/16 04:40 Smudge Cells Not Reportable 07/06/16 04:40 Toxic Granulation Not Reportable 07/06/16 04:40 Toxic Vacuolation Not Reportable 07/06/16 04:40 Dohle Bodies Not Reportable 07/06/16 04:40 Pelger-Huet Anomaly Not Reportable 07/06/16 04:40 Mary Rods Not Reportable 07/06/16 04:40 Platelet Estimate Appears normal 07/06/16 04:40 Clumped Platelets Not Reportable 07/06/16 04:40 Plt Clumps, EDTA Not Reportable 07/06/16 04:40 Large Platelets Not Reportable 07/06/16 04:40 Giant Platelets Not Reportable 07/06/16 04:40 Platelet Satelliting Not Reportable 07/06/16 04:40 Plt Morphology Comment Not Reportable 07/06/16 04:40 RBC Morphology Not Reportable 07/06/16 04:40 Dimorphic RBCs Not Reportable 07/06/16 04:40 Polychromasia Not Reportable 07/06/16 04:40 Hypochromasia Not Reportable 07/06/16 04:40 Poikilocytosis Not Reportable 07/06/16 04:40 Anisocytosis 1+ 07/06/16 04:40 Microcytosis Not Reportable 07/06/16 04:40 Macrocytosis Not Reportable 07/06/16 04:40 Spherocytes Not Reportable 07/06/16 04:40 Pappenheimer Bodies Not Reportable 07/06/16 04:40 Sickle Cells Not Reportable 07/06/16 04:40 Target Cells Not Reportable 07/06/16 04:40 Tear Drop Cells Not Reportable 07/06/16 04:40 Ovalocytes Not Reportable 07/06/16 04:40 Helmet Cells Not Reportable 07/06/16 04:40 [place] Bodies Not Reportable 07/06/16 04:40 [place] Rings Not Reportable 07/06/16 04:40 [place] Cells Not Reportable 07/06/16 04:40 Bite Cells Not Reportable 07/06/16 04:40 Crenated Cell Not Reportable 07/06/16 04:40 Elliptocytes Not Reportable 07/06/16 04:40 Acanthocytes (Spur) Not Reportable 07/06/16 04:40 Rouleaux Not Reportable 07/06/16 04:40 Hemoglobin C Crystals Not Reportable 07/06/16 04:40 Schistocytes Not Reportable 07/06/16 04:40 Malaria parasites Not Reportable 07/06/16 04:40 Sean Bodies Not Reportable 07/06/16 04:40 Haptoglobin 97 mg/dL (43-212) 07/09/16 14:09 Hem Pathologist Commnt No 07/06/16 04:40 PT 19.9 Sec. (12.2-14.9) H 06/26/16 22:57 INR 1.69 (0.87-1.13) H 06/26/16 22:57 APTT 32.8 Sec. (24.2-36.6) 06/26/16 22:57 Fibrinogen 522 mg/dl (211-480) H 06/13/16 09:45 Heparin Anti-Xa Level 0.45 U.I./ml (0.3-0.7) 06/29/16 20:31 POC ABG pH 7.436 (7.35-7.45) 07/04/16 16:49 POC ABG pCO2 31.1 (35-45) L 07/04/16 16:49 POC ABG pO2 110 (80-105) H 07/04/16 16:49 POC ABG HCO3 20.9 07/04/16 16:49 POC ABG Total CO2 22 07/04/16 16:49 POC ABG O2 Sat 99 07/04/16 16:49 POC ABG Base Excess -3 07/04/16 16:49 POC Sodium 146 mmol/L (138-146) 06/16/16 18:07 POC Potassium 3.5 (3.5-4.9) 06/16/16 18:07 POC Chloride 113 (98-109) H 06/16/16 18:07 FiO2 30 % 07/04/16 16:49 Sodium 131 mmol/L (137-145) L 07/15/16 04:15 Potassium 4.1 mmol/L (3.6-5.0) 07/15/16 04:15 Chloride 96.5 mmol/L (98-107) L 07/15/16 04:15 Carbon Dioxide 26 mmol/L (22-30) 07/15/16 04:15 Anion Gap 13 mmol/L 07/15/16 04:15 POC BUN 7 mg/dl (8-26) L 06/16/16 18:07 BUN 7 mg/dL (7-17) 07/15/16 04:15 Creatinine 0.6 mg/dL (0.7-1.2) L 07/15/16 04:15 Estimated GFR > 60 ml/min 07/15/16 04:15 BUN/Creatinine Ratio 11.66 % 07/15/16 04:15 Glucose 104 mg/dL (65-100) H 07/15/16 04:15 POC Glucose 137 (70-105) H 07/16/16 07:39 Calcium 8.0 mg/dL (8.4-10.2) L 07/15/16 04:15 Magnesium 1.6 mg/dL (1.7-2.3) L 07/03/16 06:45 Total Bilirubin 0.7 mg/dL (0.1-1.2) 07/11/16 05:10 AST 81 units/L (5-40) H 07/11/16 05:10 ALT 20 units/L (7-56) 07/11/16 05:10 Alkaline Phosphatase 153 units/L (35-129) H 07/11/16 05:10 Lactate Dehydrogenase 285 units/L (91-180) H 07/09/16 07:31 Total Creatine Kinase 297 units/L (30-135) H 07/09/16 07:31 Total Protein 6.0 g/dL (6.3-8.2) L 07/11/16 05:10 Albumin 1.8 g/dL (3.9-5) L 07/11/16 05:10 Albumin/Globulin Ratio 0.4 % 07/11/16 05:10 Urine Color Yellow (Yellow) 07/06/16 17:17 Urine Turbidity Slightly-cloudy (Clear) 07/06/16 17:17 Urine pH 6.0 (5.0-7.0) 07/06/16 17:17 Ur Specific [place] 1.011 (1.003-1.030) 07/06/16 17:17 Urine Protein 30 mg/dl mg/dL (Negative) 07/06/16 17:17 Urine Glucose (UA) Neg mg/dL (Negative) 07/06/16 17:17 Urine Ketones Neg mg/dL (Negative) 07/06/16 17:17 Urine Blood Lg (Negative) 07/06/16 17:17 Urine Nitrite Neg (Negative) 07/06/16 17:17 Urine Bilirubin Neg (Negative) 07/06/16 17:17 Urine Urobilinogen < 2.0 mg/dL (<2.0) 07/06/16 17:17 Ur Leukocyte Esterase Lg (Negative) 07/06/16 17:17 Urine WBC (Auto) 67.0 /HPF (0.0-6.0) H 07/06/16 17:17 Urine RBC (Auto) > 182.0 /HPF (0.0-6.0) 07/06/16 17:17 Blood Type O POSITIVE 07/13/16 13:45 Antibody Screen Negative 07/13/16 13:45 Crossmatch See Detail 07/13/16 13:45
[2016-07-16] MEDS ORDERED: AMBIEN PO PRN (08:55)
[2016-07-16] MEDS: MORPHINE PCA 30MG/30ML IV SCH (09:07)
[2016-07-16] MEDS: SENOKOT S PO SCH ×2 (09:28→21:51)
[2016-07-16] MEDS: BABY ASPIRIN PO SCH (09:28)
[2016-07-16] MEDS: PLAVIX PO SCH (09:28)
[2016-07-16] MEDS: TENORMIN PO SCH (09:28)
[2016-07-16] MEDS: PROTONIX PO SCH (09:28)
[2016-07-16] MEDS: FERROUS SULFATE PO SCH (09:29)
[2016-07-16] MEDS: K-DUR PO SCH (09:29)
--- NOTE | 2016-07-16 10:01 | Progress Note ---
Assessment and Plan Current antibiotics: Zosyn 4.5 grams IV q8h 07/08 --> Previous antibiotics: Zosyn 2.25 g IV q8h 06/21-06/24 Cefazolin perioperatively ASSESSMENT: Cande Ge is a 55-year-old female with severe peripheral vascular disease, type 2 DM with peripheral neuropathy and hypertension who was admitted to [facility] as an outpatient with left lower extremity pain at rest for her cutaneous intervention which was unsuccessful and subsequently underwent left femoral endarterectomy and left iliac stenting and left femoral-popliteal bypass on 06/16 , urgent thrombectomies on 06/20 and right femoral endarterectomy with patch angioplasty on 07/03. She also had 2 cardiac arrests on 06/20 requiring resuscitation and intubation. She developed evidence of a retroperitoneal hematoma and ureteral obstruction and underwent bilateral ureteral stenting on 06/27. She has had a low-grade fever and leukocytosis. Problem list: 1. Leukocytosis -Likely reactive -Patient has multiple reasons for leukocytosis including retroperitoneal hematoma , GI bleeding and multiple surgeries -Status post left groin infection and infected Dacron patch -Resolving 2. Low-grade fever -Resolved 3. Left groin wound infection -Status post debridement of the left groin wound, removal of an infected Dacron patch from the SFA, removal of this thrombosed infected vein bypass graft proximal portionand creation of the sartorius muscle flap over common femoral artery bovine pericardial patch 07/08 -Polymicrobial with Escherichia coli, Enterococcus faecalis and enterococcus avium -Status post left AKA 07/15/16 -? still some retained graft material 4. Severe peripheral vascular disease -Unsuccessful attempt at percutaneous left lower extremity revascularization 06/13 -Left femoral endarterectomy, left iliac stenting and left femoral-popliteal bypass on 06/16 -Left lower extremity thrombectomies on 06/20 -Right femoral endarterectomy with patch angioplasty on 07/03 -Left lower extremity felt to be nonsalvageable --> Left AKA 07/15 5. Retroperitoneal hematoma -As seen on CT scan 06/27 -Resolving 6. Bilateral hydroureteronephrosis -Status post bilateral ureteral stenting 06/27 7. Status post cardiopulmonary arrests X 2 -06/20 -Mechanical ventilatory support until 07/05 8. REJI -Creatinine peaked at 4.8 on 06/27 -Likely secondary to ATN -Resolved 9. Anemia -Likely multifactorial secondary to bleeding and chronic disease 10. Type 2 DM PLAN: 1. Continue Zosyn 2. Continue local wound care 3. Length of therapy to be determined. When I last spoke with Dr. Ochoa he states that there was some graft present that could not be removed and if there is a question of that being infected will need to treat longer. 4. Continued supportive measures and close observation Soham Iverson MD [facility] Office: [phone] Subjective Date of service: 07/16/16 Principal diagnosis: Infected vascular graft; s/p cardiopulmonary arrest Interval history: Crying in pain. Says she hurts "everywhere." No other complaints. ROS: No subjective fever or chills. No nausea, vomiting or diarrhea. No shortness of breath, cough or pleuritic chest pain Objective - Exam Narrative Exam: GENERAL: Well-developed, well-nourished appearing female who appears somewhat older than her stated age and appears chronically ill but is in no acute distress. Currently crying complaining of pain. HEAD: Normocephalic. No lesions seen. EYES: Pupils are equal reactive to light and accommodation. There is no scleral icterus. Optic fundi are not examined. EARS: External ears are normal. THROAT: Oropharynx is normal with no evidence of oral candidiasis or pharyngitis. Patient is edentulous. NECK: Supple. No enlargement of the thyroid gland. No significant cervical lymphadenopathy. No jugular venous distention at 30. LUNGS: Clear with no adventitious sounds. HEART: Regular rate with occasional extra beat heard. S1 and S2 are normal. There are no murmurs, gallops, clicks or rubs heard. ABDOMEN: Soft and nontender. Liver and spleen are not palpably enlarged or tender. No palpable masses. Bowel sounds are normoactive. EXTREMITIES: No peripheral lymphadenopathy or clubbing. Right lower extremity edema but no signs of infection. Status post left AKA with wound VAC in place with no signs of active infection. Left groin wound VAC in place. SKIN: No rash : Normal external female. No Gillespie catheter. NEUROLOGIC: Bilateral lower extremity weakness. No other focal findings. - Constitutional Vitals: Vital Signs Temp Pulse Resp BP Pulse Ox 98.3 F 92 H 13 136/67 100 07/16/16 08:00 07/16/16 09:31 07/16/16 09:31 07/16/16 09:31 07/16/16 09:31 Temperature -Last 24 Hours Temperature 98.3 F Temperature 98.3 F Temperature 98.1 F Temperature 98.2 F Temperature 98.4 F Temperature 98.1 F Temperature 98.2 F Temperature 97.4 F Temperature 99.2 F - Labs CBC & Chem 7: 07/16/16 07:36 07/16/16 07:36 Labs: Abnormal lab results Microbiology 07/07/16 Unknown Thigh - Left Anaerobic Culture - Final 07/09/16 04:26 Peripheral/Venous Blood Culture - Preliminary NO GROWTH AFTER 48 HOURS 07/09/16 04:26 Peripheral/Venous Blood Culture - Preliminary NO GROWTH AFTER 48 HOURS 07/07/16 Unknown Thigh - Left Surgical Culture - Preliminary Escherichia Coli Enterococcus Faecalis Enterococcus avium 07/07/16 Unknown Thigh - Left Surgical Biopsy Culture - Preliminary Escherichia Coli Enterococcus Faecalis Enterococcus avium 07/07/16 Unknown Thigh - Left Surgical Biopsy Culture - Preliminary Escherichia Coli Enterococcus Faecalis Coccus avium 07/07/16 Unknown Thigh - Left Surgical Biopsy Culture - Preliminary Escherichia Coli Enterococcus Faecalis Enterococcus avium 07/07/16 Unknown Thigh - Left Surgical Biopsy Culture - Preliminary Escherichia Coli
--- NOTE | 2016-07-16 11:32 | Progress Note ---
Assessment and Plan - Patient Problems (1) Peripheral vascular disease of extremity Current Visit: Yes Status: Acute Plan to address problem: - s/p AKA AKA - vascular surgery managing - continue analgesia but change from [employer] to fentanyl basal 25mics/hr patch and prn morphine sulfate - wound care per WCT (2) Acute respiratory failure Current Visit: Yes Status: Acute Plan to address problem: - on room air but need to r/o hemothorax which will necessitate further intervention - thoracentesis on hold re: plavix but also clinical stability respiratory-centeno - will repeat CXR and if persistent effusion will revisit thoracentesis (3) Anemia Current Visit: Yes Status: Acute Plan to address problem: - follow H&H - evaluating source - LDH unremarkable - Likely ABLA component - H&H holding so far (4) Altered mental status Current Visit: Yes Status: Acute Plan to address problem: - improved - dementia element likely +/- depression element (5) Discharge Planning Issues Current Visit: Yes Status: Acute Plan to address problem: - observe a few hours after stopping [employer] pump and if stable can transfer to telemetry ...care plan discussed with nursing and ancillary medical staff Subjective Date of service: 07/16/16 Principal diagnosis: Infected vascular graft; s/p cardiopulmonary arrest Interval history: Seen and examined at bedside; 24 hour events reviewed; nursing and respiratory care staff consulted; no adverse overnight events reported to me; feels "fine"; denies acute chest pains or increased SOB; denies any uncontrolled chest pains; no N/V/F/C Objective Vital Signs - 12hr 07/16/16 07/16/16 07/16/16 00:00 00:21 00:30 Temperature 98.2 F Pulse Rate 94 H 95 H 98 H Pulse Rate [ Apical] Pulse Rate [ From Monitor] Respiratory 13 11 L 18 Rate Blood Pressure 139/67 139/67 138/80 O2 Sat by Pulse 99 100 100 Oximetry 07/16/16 07/16/16 07/16/16 00:43 00:45 01:00 Temperature Pulse Rate 97 H 93 H 94 H Pulse Rate [ Apical] Pulse Rate [ From Monitor] Respiratory 15 11 L 12 Rate Blood Pressure 138/80 138/80 149/65 O2 Sat by Pulse 100 99 100 Oximetry 07/16/16 07/16/16 07/16/16 01:15 01:30 02:00 Temperature Pulse Rate 95 H 93 H 92 H Pulse Rate [ Apical] Pulse Rate [ From Monitor] Respiratory 15 17 10 L Rate Blood Pressure 149/65 124/69 132/65 O2 Sat by Pulse 97 97 100 Oximetry 07/16/16 07/16/16 07/16/16 02:29 02:30 03:00 Temperature Pulse Rate 87 84 90 Pulse Rate [ Apical] Pulse Rate [ From Monitor] Respiratory 14 12 11 L Rate Blood Pressure 130/62 130/62 116/76 O2 Sat by Pulse 98 98 98 Oximetry 07/16/16 07/16/16 07/16/16 03:31 04:00 04:30 Temperature 98.1 F Pulse Rate 84 88 Pulse Rate [ Apical] Pulse Rate [ From Monitor] Respiratory 9 L 13 Rate Blood Pressure 122/72 110/71 132/68 O2 Sat by Pulse 100 100 99 Oximetry 07/16/16 07/16/16 07/16/16 05:00 05:30 05:34 Temperature Pulse Rate 90 87 Pulse Rate [ Apical] Pulse Rate [ From Monitor] Respiratory 12 12 13 Rate Blood Pressure 136/69 109/69 109/69 O2 Sat by Pulse 99 100 97 Oximetry 07/16/16 07/16/16 07/16/16 06:01 06:09 06:30 Temperature Pulse Rate 87 89 85 Pulse Rate [ Apical] Pulse Rate [ From Monitor] Respiratory 13 12 12 Rate Blood Pressure 104/78 104/78 130/72 O2 Sat by Pulse 98 99 98 Oximetry 07/16/16 07/16/16 07/16/16 07:00 07:30 08:00 Temperature 98.3 F Pulse Rate 91 H 89 85 Pulse Rate [ 68 Apical] Pulse Rate [ 68 From Monitor] Respiratory 16 12 13 Rate Blood Pressure 126/68 120/45 126/54 O2 Sat by Pulse 98 100 100 Oximetry 07/16/16 07/16/16 07/16/16 08:27 08:29 08:30 Temperature Pulse Rate 88 87 82 Pulse Rate [ Apical] Pulse Rate [ From Monitor] Respiratory 17 15 14 Rate Blood Pressure 126/54 134/64 134/64 O2 Sat by Pulse 99 99 100 Oximetry 07/16/16 07/16/16 07/16/16 09:00 09:28 09:31 Temperature Pulse Rate 90 90 92 H Pulse Rate [ Apical] Pulse Rate [ From Monitor] Respiratory 10 L 13 Rate Blood Pressure 135/74 135/74 136/67 O2 Sat by Pulse 98 100 Oximetry 07/16/16 07/16/16 09:45 10:00 Temperature Pulse Rate 97 H 90 Pulse Rate [ Apical] Pulse Rate [ From Monitor] Respiratory 20 15 Rate Blood Pressure 136/67 138/68 O2 Sat by Pulse 100 100 Oximetry Constitutional: no acute distress, alert Eyes: non-icteric ENT: oropharynx moist Neck: supple, no lymphadenopathy Effort: normal Ascultation: Left: diminished breath sounds (base), Bilateral: clear Cardiovascular: regular rate and rhythm Gastrointestinal: normoactive bowel sounds, soft, non-tender, non-distended Integumentary: other (weak LLExt) Extremities: edema, other (s/p left AKA) Neurologic: normal mental status, non-focal exam, pupils equal and round Psychiatric: mood appropriate, affect normal CBC and BMP: 07/16/16 07:36 07/16/16 07:36 ABG, PT/INR, D-dimer: ABG POC ABG pH 7.436 (7.35-7.45) 07/04/16 16:49 POC ABG pCO2 31.1 (35-45) L 07/04/16 16:49 POC ABG pO2 110 (80-105) H 07/04/16 16:49 POC ABG HCO3 20.9 07/04/16 16:49 POC ABG Total CO2 22 07/04/16 16:49 POC ABG O2 Sat 99 07/04/16 16:49 PT/INR, D-dimer PT 19.9 Sec. (12.2-14.9) H 06/26/16 22:57 INR 1.69 (0.87-1.13) H 06/26/16 22:57 Abnormal lab findings: Abnormal Labs 06/13/16 06/13/16 06/13/16 09:45 09:45 09:45 WBC RBC Hgb POC Hgb Hct POC Hct MCH 25 L MCHC RDW 15.8 H Plt Count Lymph % (Auto) [place] % (Auto) 8.1 H Lymph # [place] # Baso # Seg Neutrophils % Seg Neuts % (Manual) Lymphocytes % (Manual) Monocytes % (Manual) Nucleated RBC % Seg Neutrophils # Seg Neutrophils # Man Lymphocytes # (Manual) Monocytes # (Manual) PT INR APTT Fibrinogen 522 H Heparin Anti-Xa Level POC ABG pH POC ABG pCO2 POC ABG pO2 POC Potassium POC Chloride Sodium Potassium Chloride Carbon Dioxide POC BUN BUN Creatinine Glucose POC Glucose Calcium 10.3 H Magnesium AST Alkaline Phosphatase Lactate Dehydrogenase Total Creatine Kinase Total Protein Albumin Urine WBC (Auto) Crossmatch 06/13/16 06/13/16 06/13/16 09:45 20:14 20:15 WBC RBC Hgb POC Hgb Hct POC Hct MCH MCHC RDW Plt Count Lymph % (Auto) [place] % (Auto) Lymph # [place] # Baso # Seg Neutrophils % Seg Neuts % (Manual) Lymphocytes % (Manual) Monocytes % (Manual) Nucleated RBC % Seg Neutrophils # Seg Neutrophils # Man Lymphocytes # (Manual) Monocytes # (Manual) PT INR APTT 103.8 H* Fibrinogen Heparin Anti-Xa Level 0.72 H POC ABG pH POC ABG pCO2 POC ABG pO2 POC Potassium POC Chloride Sodium Potassium Chloride Carbon Dioxide POC BUN BUN Creatinine Glucose POC Glucose Calcium Magnesium AST Alkaline Phosphatase Lactate Dehydrogenase Total Creatine Kinase Total Protein Albumin Urine WBC (Auto) Crossmatch See Detail 06/14/16 06/14/16 06/14/16 07:44 10:18 19:09 WBC RBC Hgb POC Hgb Hct POC Hct MCH 26 L MCHC RDW 15.8 H Plt Count Lymph % (Auto) [place] % (Auto) 9.1 H Lymph # [place] # Baso # Seg Neutrophils % Seg Neuts % (Manual) Lymphocytes % (Manual) Monocytes % (Manual) Nucleated RBC % Seg Neutrophils # Seg Neutrophils # Man Lymphocytes # (Manual) Monocytes # (Manual) PT INR APTT Fibrinogen Heparin Anti-Xa Level 0.76 H POC ABG pH POC ABG pCO2 POC ABG pO2 POC Potassium POC Chloride Sodium Potassium Chloride Carbon Dioxide POC BUN BUN Creatinine Glucose POC Glucose 106 H Calcium Magnesium AST Alkaline Phosphatase Lactate Dehydrogenase Total Creatine Kinase Total Protein Albumin Urine WBC (Auto) Crossmatch 06/15/16 06/15/16 06/15/16 04:43 04:43 22:49 WBC RBC Hgb 9.2 L POC Hgb Hct 28.4 L POC Hct MCH MCHC RDW Plt Count Lymph % (Auto) [place] % (Auto) Lymph # [place] # Baso # Seg Neutrophils % Seg Neuts % (Manual) Lymphocytes % (Manual) Monocytes % (Manual) Nucleated RBC % Seg Neutrophils # Seg Neutrophils # Man Lymphocytes # (Manual) Monocytes # (Manual) PT INR APTT Fibrinogen Heparin Anti-Xa Level 0.85 H POC ABG pH POC ABG pCO2 POC ABG pO2 POC Potassium POC Chloride Sodium Potassium Chloride Carbon Dioxide POC BUN BUN Creatinine Glucose POC Glucose 134 H Calcium Magnesium AST Alkaline Phosphatase Lactate Dehydrogenase Total Creatine Kinase Total Protein Albumin Urine WBC (Auto) Crossmatch 06/16/16 06/16/16 06/16/16 08:55 08:55 14:21 WBC RBC Hgb POC Hgb 5.8 L Hct POC Hct 17 L MCH MCHC RDW Plt Count Lymph % (Auto) [place] % (Auto) Lymph # [place] # Baso # Seg Neutrophils % Seg Neuts % (Manual) Lymphocytes % (Manual) Monocytes % (Manual) Nucleated RBC % Seg Neutrophils # Seg Neutrophils # Man Lymphocytes # (Manual) Monocytes # (Manual) PT INR APTT 20.0 L Fibrinogen Heparin Anti-Xa Level POC ABG pH POC ABG pCO2 POC ABG pO2 POC Potassium 2.9 L POC Chloride Sodium Potassium Chloride Carbon Dioxide POC BUN 7 L BUN Creatinine Glucose POC Glucose 249 H Calcium Magnesium AST Alkaline Phosphatase Lactate Dehydrogenase Total Creatine Kinase Total Protein Albumin Urine WBC (Auto) Crossmatch See Detail 06/16/16 06/16/16 06/16/16 16:55 17:41 17:48 WBC RBC Hgb POC Hgb 8.8 L Hct POC Hct 26 L < 15 L MCH MCHC RDW Plt Count Lymph % (Auto) [place] % (Auto) Lymph # [place] # Baso # Seg Neutrophils % Seg Neuts % (Manual) Lymphocytes % (Manual) Monocytes % (Manual) Nucleated RBC % Seg Neutrophils # Seg Neutrophils # Man Lymphocytes # (Manual) Monocytes # (Manual) PT INR APTT Fibrinogen Heparin Anti-Xa Level POC ABG pH 7.031 L POC ABG pCO2 POC ABG pO2 475 H POC Potassium 3.2 L POC Chloride 112 H 114 H Sodium Potassium Chloride Carbon Dioxide POC BUN 7 L 7 L BUN Creatinine Glucose POC Glucose 203 H 291 H Calcium Magnesium AST Alkaline Phosphatase Lactate Dehydrogenase Total Creatine Kinase Total Protein Albumin Urine WBC (Auto) Crossmatch 06/16/16 06/16/16 06/16/16 18:07 19:09 20:10 WBC 15.8 H RBC Hgb POC Hgb 6.5 L Hct POC Hct 19 L MCH MCHC RDW Plt Count 38 L Lymph % (Auto) 5.9 L [place] % (Auto) 9.3 H Lymph # 0.9 L [place] # 1.5 H Baso # Seg Neutrophils % 84.6 H Seg Neuts % (Manual) Lymphocytes % (Manual) Monocytes % (Manual) Nucleated RBC % Seg Neutrophils # 13.3 H Seg Neutrophils # Man Lymphocytes # (Manual) Monocytes # (Manual) PT INR APTT Fibrinogen Heparin Anti-Xa Level POC ABG pH POC ABG pCO2 POC ABG pO2 POC Potassium POC Chloride 113 H Sodium Potassium Chloride Carbon Dioxide POC BUN 7 L BUN Creatinine Glucose POC Glucose 263 H 231 H Calcium Magnesium AST Alkaline Phosphatase Lactate Dehydrogenase Total Creatine Kinase Total Protein Albumin Urine WBC (Auto) Crossmatch 06/16/16 06/16/16 06/16/16 20:10 20:18 21:10 WBC RBC Hgb POC Hgb Hct POC Hct MCH MCHC RDW Plt Count Lymph % (Auto) [place] % (Auto) Lymph # [place] # Baso # Seg Neutrophils % Seg Neuts % (Manual) Lymphocytes % (Manual) Monocytes % (Manual) Nucleated RBC % Seg Neutrophils # Seg Neutrophils # Man Lymphocytes # (Manual) Monocytes # (Manual) PT INR APTT Fibrinogen Heparin Anti-Xa Level POC ABG pH 7.236 L 7.280 L POC ABG pCO2 POC ABG pO2 139 H 145 H POC Potassium POC Chloride Sodium Potassium 3.4 L Chloride 114.5 H Carbon Dioxide 17 L D POC BUN BUN Creatinine Glucose 188 H POC Glucose Calcium 6.1 L D Magnesium AST Alkaline Phosphatase Lactate Dehydrogenase Total Creatine Kinase Total Protein Albumin Urine WBC (Auto) Crossmatch 06/16/16 06/17/16 06/17/16 22:53 04:48 05:35 WBC RBC Hgb POC Hgb Hct POC Hct MCH MCHC RDW Plt Count Lymph % (Auto) [place] % (Auto) Lymph # [place] # Baso # Seg Neutrophils % Seg Neuts % (Manual) Lymphocytes % (Manual) Monocytes % (Manual) Nucleated RBC % Seg Neutrophils # Seg Neutrophils # Man Lymphocytes # (Manual) Monocytes # (Manual) PT INR APTT Fibrinogen Heparin Anti-Xa Level POC ABG pH POC ABG pCO2 33.9 L 22.2 L POC ABG pO2 152 H 154 H POC Potassium POC Chloride Sodium 150 H Potassium 3.4 L Chloride 114.2 H Carbon Dioxide 16 L POC BUN BUN Creatinine Glucose 221 H POC Glucose Calcium 7.6 L D Magnesium AST Alkaline Phosphatase Lactate Dehydrogenase Total Creatine Kinase Total Protein Albumin Urine WBC (Auto) Crossmatch 06/17/16 06/18/16 06/18/16 09:22 07:26 08:25 WBC 20.3 H RBC 3.41 L Hgb 9.9 L POC Hgb Hct 29.7 L POC Hct MCH MCHC RDW Plt Count Lymph % (Auto) [place] % (Auto) Lymph # [place] # Baso # Seg Neutrophils % Seg Neuts % (Manual) 81.0 H Lymphocytes % (Manual) 6.0 L Monocytes % (Manual) 12.0 H Nucleated RBC % Seg Neutrophils # Seg Neutrophils # Man 16.4 H Lymphocytes # (Manual) Monocytes # (Manual) 2.4 H PT INR APTT Fibrinogen Heparin Anti-Xa Level POC ABG pH POC ABG pCO2 POC ABG pO2 POC Potassium POC Chloride Sodium Potassium 3.1 L Chloride Carbon Dioxide POC BUN BUN Creatinine Glucose 136 H POC Glucose 141 H Calcium 7.5 L Magnesium AST Alkaline Phosphatase Lactate Dehydrogenase Total Creatine Kinase Total Protein Albumin Urine WBC (Auto) Crossmatch 06/18/16 06/18/16 06/18/16 08:25 11:09 19:40 WBC RBC Hgb 6.5 L D POC Hgb Hct 19.3 L* D POC Hct MCH MCHC RDW Plt Count 131 L Lymph % (Auto) [place] % (Auto) Lymph # [place] # Baso # Seg Neutrophils % Seg Neuts % (Manual) Lymphocytes % (Manual) Monocytes % (Manual) Nucleated RBC % Seg Neutrophils # Seg Neutrophils # Man Lymphocytes # (Manual) Monocytes # (Manual) PT INR APTT Fibrinogen Heparin Anti-Xa Level POC ABG pH 7.490 H POC ABG pCO2 POC ABG pO2 131 H POC Potassium POC Chloride Sodium Potassium Chloride Carbon Dioxide POC BUN BUN Creatinine Glucose POC Glucose 125 H Calcium Magnesium AST Alkaline Phosphatase Lactate Dehydrogenase Total Creatine Kinase Total Protein Albumin Urine WBC (Auto) Crossmatch 06/18/16 06/19/16 06/19/16 21:10 07:07 07:28 WBC 13.6 H RBC 2.17 L Hgb 6.5 L POC Hgb Hct 18.8 L* POC Hct MCH MCHC 35 H RDW Plt Count 131 L Lymph % (Auto) 10.1 L [place] % (Auto) 9.3 H Lymph # [place] # 1.3 H Baso # Seg Neutrophils % 79.7 H Seg Neuts % (Manual) Lymphocytes % (Manual) Monocytes % (Manual) Nucleated RBC % Seg Neutrophils # 10.8 H Seg Neutrophils # Man Lymphocytes # (Manual) Monocytes # (Manual) PT INR APTT Fibrinogen Heparin Anti-Xa Level 0.75 H POC ABG pH POC ABG pCO2 POC ABG pO2 POC Potassium POC Chloride Sodium Potassium 3.5 L Chloride Carbon Dioxide POC BUN BUN Creatinine Glucose 104 H POC Glucose Calcium 7.6 L Magnesium 1.4 L AST Alkaline Phosphatase Lactate Dehydrogenase Total Creatine Kinase Total Protein Albumin Urine WBC (Auto) Crossmatch 06/20/16 06/20/16 06/20/16 04:15 18:15 18:15 WBC 16.6 H RBC 1.19 L Hgb 9.2 L 3.5 L* D POC Hgb Hct 27.5 L D 11.0 L* D POC Hct MCH MCHC RDW Plt Count 138 L Lymph % (Auto) [place] % (Auto) Lymph # [place] # Baso # Seg Neutrophils % Seg Neuts % (Manual) Lymphocytes % (Manual) Monocytes % (Manual) Nucleated RBC % Seg Neutrophils # Seg Neutrophils # Man Lymphocytes # (Manual) Monocytes # (Manual) PT INR APTT Fibrinogen Heparin Anti-Xa Level POC ABG pH POC ABG pCO2 POC ABG pO2 POC Potassium POC Chloride Sodium 146 H Potassium Chloride Carbon Dioxide 14 L D POC BUN BUN Creatinine Glucose 31 L* POC Glucose Calcium 6.7 L Magnesium AST Alkaline Phosphatase Lactate Dehydrogenase Total Creatine Kinase Total Protein Albumin Urine WBC (Auto) Crossmatch 06/20/16 06/20/16 06/20/16 18:15 19:33 19:36 WBC RBC Hgb POC Hgb Hct POC Hct MCH MCHC RDW Plt Count Lymph % (Auto) [place] % (Auto) Lymph # [place] # Baso # Seg Neutrophils % Seg Neuts % (Manual) Lymphocytes % (Manual) Monocytes % (Manual) Nucleated RBC % Seg Neutrophils # Seg Neutrophils # Man Lymphocytes # (Manual) Monocytes # (Manual) PT INR APTT Fibrinogen Heparin Anti-Xa Level POC ABG pH POC ABG pCO2 26.3 L POC ABG pO2 394 H POC Potassium POC Chloride Sodium Potassium Chloride Carbon Dioxide POC BUN BUN Creatinine Glucose POC Glucose 212 H Calcium Magnesium AST Alkaline Phosphatase Lactate Dehydrogenase Total Creatine Kinase Total Protein Albumin Urine WBC (Auto) Crossmatch See Detail 06/20/16 06/20/16 06/21/16 22:01 23:00 00:35 WBC RBC Hgb POC Hgb Hct POC Hct MCH MCHC RDW Plt Count Lymph % (Auto) [place] % (Auto) Lymph # [place] # Baso # Seg Neutrophils % Seg Neuts % (Manual) Lymphocytes % (Manual) Monocytes % (Manual) Nucleated RBC % Seg Neutrophils # Seg Neutrophils # Man Lymphocytes # (Manual) Monocytes # (Manual) PT 21.3 H INR 1.85 H APTT 48.4 H Fibrinogen Heparin Anti-Xa Level POC ABG pH POC ABG pCO2 POC ABG pO2 POC Potassium POC Chloride Sodium Potassium Chloride Carbon Dioxide POC BUN BUN Creatinine Glucose POC Glucose 149 H 147 H Calcium Magnesium AST Alkaline Phosphatase Lactate Dehydrogenase Total Creatine Kinase Total Protein Albumin Urine WBC (Auto) Crossmatch 06/21/16 06/21/16 06/21/16 04:30 04:30 06:01 WBC 21.7 H RBC 3.58 L Hgb POC Hgb Hct POC Hct MCH MCHC 35 H RDW Plt Count 116 L Lymph % (Auto) [place] % (Auto) Lymph # [place] # Baso # Seg Neutrophils % Seg Neuts % (Manual) Lymphocytes % (Manual) 8.0 L Monocytes % (Manual) Nucleated RBC % 3.0 H Seg Neutrophils # Seg Neutrophils # Man 13.7 H Lymphocytes # (Manual) Monocytes # (Manual) 1.5 H PT INR APTT Fibrinogen Heparin Anti-Xa Level POC ABG pH 7.541 H POC ABG pCO2 21.1 L POC ABG pO2 108 H POC Potassium POC Chloride Sodium Potassium 3.0 L Chloride 110.3 H Carbon Dioxide 18 L POC BUN BUN 18 H Creatinine Glucose 141 H POC Glucose Calcium 6.4 L Magnesium AST Alkaline Phosphatase Lactate Dehydrogenase Total Creatine Kinase Total Protein Albumin Urine WBC (Auto) Crossmatch 06/21/16 06/21/16 06/21/16 07:00 10:02 17:51 WBC RBC Hgb 8.3 L POC Hgb Hct 24.7 L D POC Hct MCH MCHC RDW Plt Count Lymph % (Auto) [place] % (Auto) Lymph # [place] # Baso # Seg Neutrophils % Seg Neuts % (Manual) Lymphocytes % (Manual) Monocytes % (Manual) Nucleated RBC % Seg Neutrophils # Seg Neutrophils # Man Lymphocytes # (Manual) Monocytes # (Manual) PT INR APTT Fibrinogen Heparin Anti-Xa Level POC ABG pH POC ABG pCO2 POC ABG pO2 POC Potassium POC Chloride Sodium Potassium Chloride Carbon Dioxide POC BUN BUN Creatinine Glucose POC Glucose 132 H 106 H Calcium Magnesium AST Alkaline Phosphatase Lactate Dehydrogenase Total Creatine Kinase Total Protein Albumin Urine WBC (Auto) Crossmatch 06/22/16 06/22/16 06/22/16 05:00 05:00 06:40 WBC 20.6 H RBC 3.54 L Hgb POC Hgb Hct POC Hct MCH MCHC RDW Plt Count 129 L Lymph % (Auto) [place] % (Auto) Lymph # [place] # Baso # Seg Neutrophils % Seg Neuts % (Manual) 87.0 H Lymphocytes % (Manual) 4.0 L Monocytes % (Manual) Nucleated RBC % 4.0 H Seg Neutrophils # Seg Neutrophils # Man 17.9 H Lymphocytes # (Manual) 0.8 L Monocytes # (Manual) 1.2 H PT INR APTT Fibrinogen Heparin Anti-Xa Level POC ABG pH POC ABG pCO2 21.9 L POC ABG pO2 118 H POC Potassium POC Chloride Sodium Potassium Chloride 109.9 H Carbon Dioxide 15 L POC BUN BUN 26 H Creatinine 2.2 H D Glucose POC Glucose Calcium 6.3 L Magnesium AST Alkaline Phosphatase Lactate Dehydrogenase Total Creatine Kinase Total Protein Albumin Urine WBC (Auto) Crossmatch 06/22/16 06/22/16 06/22/16 09:15 09:15 23:17 WBC RBC Hgb 9.1 L POC Hgb Hct 26.9 L POC Hct MCH MCHC RDW Plt Count 116 L Lymph % (Auto) [place] % (Auto) Lymph # [place] # Baso # Seg Neutrophils % Seg Neuts % (Manual) Lymphocytes % (Manual) Monocytes % (Manual) Nucleated RBC % Seg Neutrophils # Seg Neutrophils # Man Lymphocytes # (Manual) Monocytes # (Manual) PT 15.8 H INR 1.27 H APTT Fibrinogen Heparin Anti-Xa Level POC ABG pH POC ABG pCO2 POC ABG pO2 POC Potassium POC Chloride Sodium Potassium Chloride Carbon Dioxide POC BUN BUN Creatinine Glucose POC Glucose 134 H Calcium Magnesium AST Alkaline Phosphatase Lactate Dehydrogenase Total Creatine Kinase Total Protein Albumin Urine WBC (Auto) Crossmatch 06/23/16 06/23/16 06/23/16 05:43 05:43 09:44 WBC 13.8 H RBC 2.70 L Hgb 8.1 L POC Hgb Hct 24.2 L POC Hct MCH MCHC RDW Plt Count 93 L Lymph % (Auto) 6.2 L [place] % (Auto) Lymph # 0.9 L [place] # Baso # Seg Neutrophils % 89.2 H Seg Neuts % (Manual) Lymphocytes % (Manual) Monocytes % (Manual) Nucleated RBC % Seg Neutrophils # 12.3 H Seg Neutrophils # Man Lymphocytes # (Manual) Monocytes # (Manual) PT INR APTT Fibrinogen Heparin Anti-Xa Level POC ABG pH 7.593 H POC ABG pCO2 26.8 L POC ABG pO2 141 H POC Potassium POC Chloride Sodium 146 H Potassium Chloride Carbon Dioxide POC BUN BUN 32 H Creatinine 2.6 H Glucose 142 H POC Glucose Calcium 7.0 L Magnesium AST Alkaline Phosphatase Lactate Dehydrogenase Total Creatine Kinase Total Protein Albumin Urine WBC (Auto) Crossmatch 06/23/16 06/23/16 06/23/16 11:23 17:42 23:32 WBC RBC Hgb POC Hgb Hct POC Hct MCH MCHC RDW Plt Count Lymph % (Auto) [place] % (Auto) Lymph # [place] # Baso # Seg Neutrophils % Seg Neuts % (Manual) Lymphocytes % (Manual) Monocytes % (Manual) Nucleated RBC % Seg Neutrophils # Seg Neutrophils # Man Lymphocytes # (Manual) Monocytes # (Manual) PT INR APTT Fibrinogen Heparin Anti-Xa Level POC ABG pH POC ABG pCO2 POC ABG pO2 POC Potassium POC Chloride Sodium Potassium Chloride Carbon Dioxide POC BUN BUN Creatinine Glucose POC Glucose 138 H 133 H 111 H Calcium Magnesium AST Alkaline Phosphatase Lactate Dehydrogenase Total Creatine Kinase Total Protein Albumin Urine WBC (Auto) Crossmatch 06/24/16 06/24/16 06/24/16 06:27 08:10 08:10 WBC 16.6 H RBC 2.91 L Hgb 8.9 L POC Hgb Hct 26.4 L POC Hct MCH MCHC RDW 15.6 H Plt Count 115 L Lymph % (Auto) 4.6 L [place] % (Auto) Lymph # 0.8 L [place] # 1.0 H Baso # Seg Neutrophils % 89.2 H Seg Neuts % (Manual) Lymphocytes % (Manual) Monocytes % (Manual) Nucleated RBC % Seg Neutrophils # 14.9 H Seg Neutrophils # Man Lymphocytes # (Manual) Monocytes # (Manual) PT INR APTT Fibrinogen Heparin Anti-Xa Level POC ABG pH POC ABG pCO2 POC ABG pO2 POC Potassium POC Chloride Sodium 146 H Potassium Chloride Carbon Dioxide POC BUN BUN 37 H Creatinine 2.9 H Glucose POC Glucose 109 H Calcium 7.5 L Magnesium AST Alkaline Phosphatase Lactate Dehydrogenase Total Creatine Kinase Total Protein Albumin Urine WBC (Auto) Crossmatch 06/24/16 06/24/16 06/24/16 12:05 17:57 22:13 WBC RBC Hgb POC Hgb Hct POC Hct MCH MCHC RDW Plt Count Lymph % (Auto) [place] % (Auto) Lymph # [place] # Baso # Seg Neutrophils % Seg Neuts % (Manual) Lymphocytes % (Manual) Monocytes % (Manual) Nucleated RBC % Seg Neutrophils # Seg Neutrophils # Man Lymphocytes # (Manual) Monocytes # (Manual) PT INR APTT Fibrinogen Heparin Anti-Xa Level POC ABG pH POC ABG pCO2 POC ABG pO2 POC Potassium POC Chloride Sodium Potassium Chloride Carbon Dioxide POC BUN BUN Creatinine Glucose POC Glucose 117 H 124 H 116 H Calcium Magnesium AST Alkaline Phosphatase Lactate Dehydrogenase Total Creatine Kinase Total Protein Albumin Urine WBC (Auto) Crossmatch 06/25/16 06/25/16 06/25/16 06:42 06:49 12:14 WBC RBC Hgb POC Hgb Hct POC Hct MCH MCHC RDW Plt Count Lymph % (Auto) [place] % (Auto) Lymph # [place] # Baso # Seg Neutrophils % Seg Neuts % (Manual) Lymphocytes % (Manual) Monocytes % (Manual) Nucleated RBC % Seg Neutrophils # Seg Neutrophils # Man Lymphocytes # (Manual) Monocytes # (Manual) PT INR APTT Fibrinogen Heparin Anti-Xa Level POC ABG pH POC ABG pCO2 POC ABG pO2 POC Potassium POC Chloride Sodium Potassium Chloride Carbon Dioxide POC BUN BUN 46 H Creatinine 3.6 H Glucose 133 H POC Glucose 137 H 136 H Calcium 7.4 L Magnesium AST Alkaline Phosphatase Lactate Dehydrogenase Total Creatine Kinase Total Protein Albumin Urine WBC (Auto) Crossmatch 06/25/16 06/25/16 06/26/16 16:07 21:32 05:55 WBC RBC Hgb POC Hgb Hct POC Hct MCH MCHC RDW Plt Count Lymph % (Auto) [place] % (Auto) Lymph # [place] # Baso # Seg Neutrophils % Seg Neuts % (Manual) Lymphocytes % (Manual) Monocytes % (Manual) Nucleated RBC % Seg Neutrophils # Seg Neutrophils # Man Lymphocytes # (Manual) Monocytes # (Manual) PT INR APTT Fibrinogen Heparin Anti-Xa Level POC ABG pH POC ABG pCO2 POC ABG pO2 POC Potassium POC Chloride Sodium Potassium Chloride Carbon Dioxide 20 L POC BUN BUN 55 H Creatinine 4.2 H Glucose 120 H POC Glucose 146 H 146 H Calcium 7.5 L Magnesium AST Alkaline Phosphatase Lactate Dehydrogenase Total Creatine Kinase Total Protein Albumin Urine WBC (Auto) Crossmatch 06/26/16 06/26/16 06/26/16 06:30 11:38 16:45 WBC RBC Hgb POC Hgb Hct POC Hct MCH MCHC RDW Plt Count Lymph % (Auto) [place] % (Auto) Lymph # [place] # Baso # Seg Neutrophils % Seg Neuts % (Manual) Lymphocytes % (Manual) Monocytes % (Manual) Nucleated RBC % Seg Neutrophils # Seg Neutrophils # Man Lymphocytes # (Manual) Monocytes # (Manual) PT INR APTT Fibrinogen Heparin Anti-Xa Level POC ABG pH POC ABG pCO2 POC ABG pO2 POC Potassium POC Chloride Sodium Potassium Chloride Carbon Dioxide POC BUN BUN Creatinine Glucose POC Glucose 128 H 143 H 121 H Calcium Magnesium AST Alkaline Phosphatase Lactate Dehydrogenase Total Creatine Kinase Total Protein Albumin Urine WBC (Auto) Crossmatch 06/26/16 06/26/16 06/27/16 22:57 22:57 00:47 WBC RBC Hgb 8.4 L POC Hgb Hct 25.1 L POC Hct MCH MCHC RDW Plt Count Lymph % (Auto) [place] % (Auto) Lymph # [place] # Baso # Seg Neutrophils % Seg Neuts % (Manual) Lymphocytes % (Manual) Monocytes % (Manual) Nucleated RBC % Seg Neutrophils # Seg Neutrophils # Man Lymphocytes # (Manual) Monocytes # (Manual) PT 19.9 H INR 1.69 H APTT Fibrinogen Heparin Anti-Xa Level POC ABG pH POC ABG pCO2 POC ABG pO2 POC Potassium POC Chloride Sodium Potassium Chloride Carbon Dioxide POC BUN BUN Creatinine Glucose POC Glucose 110 H Calcium Magnesium AST Alkaline Phosphatase Lactate Dehydrogenase Total Creatine Kinase Total Protein Albumin Urine WBC (Auto) Crossmatch 06/27/16 06/27/16 06/27/16 05:43 05:43 06:40 WBC RBC Hgb POC Hgb Hct POC Hct MCH MCHC RDW Plt Count Lymph % (Auto) [place] % (Auto) Lymph # [place] # Baso # Seg Neutrophils % Seg Neuts % (Manual) Lymphocytes % (Manual) Monocytes % (Manual) Nucleated RBC % Seg Neutrophils # Seg Neutrophils # Man Lymphocytes # (Manual) Monocytes # (Manual) PT INR APTT Fibrinogen Heparin Anti-Xa Level 2.00 H POC ABG pH POC ABG pCO2 POC ABG pO2 POC Potassium POC Chloride Sodium Potassium Chloride Carbon Dioxide 20 L POC BUN BUN 58 H Creatinine 4.8 H Glucose POC Glucose 109 H Calcium 8.1 L Magnesium AST Alkaline Phosphatase Lactate Dehydrogenase Total Creatine Kinase Total Protein Albumin Urine WBC (Auto) Crossmatch 06/27/16 06/27/16 06/27/16 08:15 16:46 17:47 WBC RBC Hgb POC Hgb Hct POC Hct MCH MCHC RDW Plt Count Lymph % (Auto) [place] % (Auto) Lymph # [place] # Baso # Seg Neutrophils % Seg Neuts % (Manual) Lymphocytes % (Manual) Monocytes % (Manual) Nucleated RBC % Seg Neutrophils # Seg Neutrophils # Man Lymphocytes # (Manual) Monocytes # (Manual) PT INR APTT Fibrinogen Heparin Anti-Xa Level > 2.00 H 1.87 H POC ABG pH POC ABG pCO2 POC ABG pO2 POC Potassium POC Chloride Sodium Potassium Chloride Carbon Dioxide POC BUN BUN Creatinine Glucose POC Glucose 231 H Calcium Magnesium AST Alkaline Phosphatase Lactate Dehydrogenase Total Creatine Kinase Total Protein Albumin Urine WBC (Auto) Crossmatch 06/27/16 06/27/16 06/28/16 21:23 23:54 06:27 WBC RBC Hgb POC Hgb Hct POC Hct MCH MCHC RDW Plt Count Lymph % (Auto) [place] % (Auto) Lymph # [place] # Baso # Seg Neutrophils % Seg Neuts % (Manual) Lymphocytes % (Manual) Monocytes % (Manual) Nucleated RBC % Seg Neutrophils # Seg Neutrophils # Man Lymphocytes # (Manual) Monocytes # (Manual) PT INR APTT Fibrinogen Heparin Anti-Xa Level 1.70 H POC ABG pH POC ABG pCO2 POC ABG pO2 POC Potassium POC Chloride Sodium Potassium Chloride Carbon Dioxide POC BUN BUN 62 H Creatinine 4.5 H Glucose 111 H POC Glucose 122 H Calcium 8.3 L Magnesium AST Alkaline Phosphatase Lactate Dehydrogenase Total Creatine Kinase Total Protein Albumin Urine WBC (Auto) Crossmatch 06/28/16 06/28/16 06/28/16 06:27 11:47 14:14 WBC RBC Hgb 7.7 L POC Hgb Hct 22.9 L POC Hct MCH MCHC RDW Plt Count Lymph % (Auto) [place] % (Auto) Lymph # [place] # Baso # Seg Neutrophils % Seg Neuts % (Manual) Lymphocytes % (Manual) Monocytes % (Manual) Nucleated RBC % Seg Neutrophils # Seg Neutrophils # Man Lymphocytes # (Manual) Monocytes # (Manual) PT INR APTT Fibrinogen Heparin Anti-Xa Level POC ABG pH 7.461 H POC ABG pCO2 31.9 L POC ABG pO2 73 L POC Potassium POC Chloride Sodium Potassium Chloride Carbon Dioxide POC BUN BUN Creatinine Glucose POC Glucose 155 H Calcium Magnesium AST Alkaline Phosphatase Lactate Dehydrogenase Total Creatine Kinase Total Protein Albumin Urine WBC (Auto) Crossmatch 06/28/16 06/28/16 06/28/16 16:27 20:47 22:59 WBC RBC Hgb POC Hgb Hct POC Hct MCH MCHC RDW Plt Count Lymph % (Auto) [place] % (Auto) Lymph # [place] # Baso # Seg Neutrophils % Seg Neuts % (Manual) Lymphocytes % (Manual) Monocytes % (Manual) Nucleated RBC % Seg Neutrophils # Seg Neutrophils # Man Lymphocytes # (Manual) Monocytes # (Manual) PT INR APTT Fibrinogen Heparin Anti-Xa Level 1.16 H POC ABG pH POC ABG pCO2 POC ABG pO2 POC Potassium POC Chloride Sodium Potassium Chloride Carbon Dioxide POC BUN BUN Creatinine Glucose POC Glucose 193 H 126 H Calcium Magnesium AST Alkaline Phosphatase Lactate Dehydrogenase Total Creatine Kinase Total Protein Albumin Urine WBC (Auto) Crossmatch 06/29/16 06/29/16 06/29/16 05:51 09:10 09:10 WBC RBC Hgb POC Hgb Hct POC Hct MCH MCHC RDW Plt Count Lymph % (Auto) [place] % (Auto) Lymph # [place] # Baso # Seg Neutrophils % Seg Neuts % (Manual) Lymphocytes % (Manual) Monocytes % (Manual) Nucleated RBC % Seg Neutrophils # Seg Neutrophils # Man Lymphocytes # (Manual) Monocytes # (Manual) PT INR APTT Fibrinogen Heparin Anti-Xa Level 0.92 H POC ABG pH POC ABG pCO2 POC ABG pO2 POC Potassium POC Chloride Sodium Potassium Chloride Carbon Dioxide POC BUN BUN 53 H Creatinine 3.7 H Glucose 139 H POC Glucose 121 H Calcium 8.2 L Magnesium AST Alkaline Phosphatase Lactate Dehydrogenase Total Creatine Kinase Total Protein Albumin Urine WBC (Auto) Crossmatch 06/29/16 06/30/16 06/30/16 21:22 05:09 08:07 WBC RBC Hgb 7.3 L POC Hgb Hct 21.9 L POC Hct MCH MCHC RDW Plt Count Lymph % (Auto) [place] % (Auto) Lymph # [place] # Baso # Seg Neutrophils % Seg Neuts % (Manual) Lymphocytes % (Manual) Monocytes % (Manual) Nucleated RBC % Seg Neutrophils # Seg Neutrophils # Man Lymphocytes # (Manual) Monocytes # (Manual) PT INR APTT Fibrinogen Heparin Anti-Xa Level POC ABG pH POC ABG pCO2 POC ABG pO2 POC Potassium POC Chloride Sodium Potassium Chloride Carbon Dioxide POC BUN BUN Creatinine Glucose POC Glucose 108 H 106 H Calcium Magnesium AST Alkaline Phosphatase Lactate Dehydrogenase Total Creatine Kinase Total Protein Albumin Urine WBC (Auto) Crossmatch 06/30/16 06/30/16 06/30/16 10:48 12:13 16:48 WBC RBC Hgb POC Hgb Hct POC Hct MCH MCHC RDW Plt Count Lymph % (Auto) [place] % (Auto) Lymph # [place] # Baso # Seg Neutrophils % Seg Neuts % (Manual) Lymphocytes % (Manual) Monocytes % (Manual) Nucleated RBC % Seg Neutrophils # Seg Neutrophils # Man Lymphocytes # (Manual) Monocytes # (Manual) PT INR APTT Fibrinogen Heparin Anti-Xa Level POC ABG pH POC ABG pCO2 POC ABG pO2 POC Potassium POC Chloride Sodium Potassium Chloride Carbon Dioxide POC BUN BUN 46 H Creatinine 3.0 H Glucose POC Glucose 153 H 152 H Calcium Magnesium AST Alkaline Phosphatase Lactate Dehydrogenase Total Creatine Kinase Total Protein Albumin Urine WBC (Auto) Crossmatch 06/30/16 07/01/16 07/01/16 21:47 05:47 07:44 WBC 19.8 H RBC 2.45 L Hgb 7.2 L POC Hgb Hct 22.2 L POC Hct MCH MCHC RDW Plt Count 481 H Lymph % (Auto) 5.5 L [place] % (Auto) Lymph # 1.1 L [place] # 1.4 H Baso # Seg Neutrophils % 86.8 H Seg Neuts % (Manual) Lymphocytes % (Manual) Monocytes % (Manual) Nucleated RBC % Seg Neutrophils # 17.1 H Seg Neutrophils # Man Lymphocytes # (Manual) Monocytes # (Manual) PT INR APTT Fibrinogen Heparin Anti-Xa Level POC ABG pH POC ABG pCO2 POC ABG pO2 POC Potassium POC Chloride Sodium Potassium Chloride Carbon Dioxide POC BUN BUN Creatinine Glucose POC Glucose 162 H 124 H Calcium Magnesium AST Alkaline Phosphatase Lactate Dehydrogenase Total Creatine Kinase Total Protein Albumin Urine WBC (Auto) Crossmatch 07/01/16 07/01/16 07/01/16 07:44 11:55 16:16 WBC RBC Hgb POC Hgb Hct POC Hct MCH MCHC RDW Plt Count Lymph % (Auto) [place] % (Auto) Lymph # [place] # Baso # Seg Neutrophils % Seg Neuts % (Manual) Lymphocytes % (Manual) Monocytes % (Manual) Nucleated RBC % Seg Neutrophils # Seg Neutrophils # Man Lymphocytes # (Manual) Monocytes # (Manual) PT INR APTT Fibrinogen Heparin Anti-Xa Level POC ABG pH POC ABG pCO2 POC ABG pO2 POC Potassium POC Chloride Sodium Potassium 3.1 L Chloride Carbon Dioxide POC BUN BUN 38 H Creatinine 2.2 H Glucose 114 H POC Glucose 114 H 143 H Calcium Magnesium AST Alkaline Phosphatase Lactate Dehydrogenase Total Creatine Kinase Total Protein Albumin Urine WBC (Auto) Crossmatch 07/01/16 07/02/16 07/02/16 21:42 05:40 06:46 WBC 18.1 H RBC 2.45 L Hgb 7.3 L POC Hgb Hct 21.8 L POC Hct MCH MCHC RDW Plt Count 490 H Lymph % (Auto) 6.1 L [place] % (Auto) Lymph # 1.1 L [place] # 1.1 H Baso # 0.2 H Seg Neutrophils % 86.0 H Seg Neuts % (Manual) Lymphocytes % (Manual) Monocytes % (Manual) Nucleated RBC % Seg Neutrophils # 15.6 H Seg Neutrophils # Man Lymphocytes # (Manual) Monocytes # (Manual) PT INR APTT Fibrinogen Heparin Anti-Xa Level POC ABG pH POC ABG pCO2 POC ABG pO2 POC Potassium POC Chloride Sodium Potassium Chloride Carbon Dioxide POC BUN BUN Creatinine Glucose POC Glucose 135 H 135 H Calcium Magnesium AST Alkaline Phosphatase Lactate Dehydrogenase Total Creatine Kinase Total Protein Albumin Urine WBC (Auto) Crossmatch 07/02/16 07/02/16 07/02/16 06:46 06:49 11:23 WBC RBC Hgb POC Hgb Hct POC Hct MCH MCHC RDW Plt Count Lymph % (Auto) [place] % (Auto) Lymph # [place] # Baso # Seg Neutrophils % Seg Neuts % (Manual) Lymphocytes % (Manual) Monocytes % (Manual) Nucleated RBC % Seg Neutrophils # Seg Neutrophils # Man Lymphocytes # (Manual) Monocytes # (Manual) PT INR APTT Fibrinogen Heparin Anti-Xa Level POC ABG pH POC ABG pCO2 POC ABG pO2 POC Potassium POC Chloride Sodium Potassium 2.8 L* Chloride Carbon Dioxide POC BUN BUN 30 H Creatinine 1.8 H Glucose 121 H POC Glucose 121 H Calcium 8.1 L Magnesium 1.3 L AST Alkaline Phosphatase Lactate Dehydrogenase Total Creatine Kinase Total Protein Albumin Urine WBC (Auto) Crossmatch 07/02/16 07/02/16 07/03/16 17:02 21:31 05:35 WBC RBC Hgb POC Hgb Hct POC Hct MCH MCHC RDW Plt Count Lymph % (Auto) [place] % (Auto) Lymph # [place] # Baso # Seg Neutrophils % Seg Neuts % (Manual) Lymphocytes % (Manual) Monocytes % (Manual) Nucleated RBC % Seg Neutrophils # Seg Neutrophils # Man Lymphocytes # (Manual) Monocytes # (Manual) PT INR APTT Fibrinogen Heparin Anti-Xa Level POC ABG pH POC ABG pCO2 POC ABG pO2 POC Potassium POC Chloride Sodium Potassium Chloride Carbon Dioxide POC BUN BUN Creatinine Glucose POC Glucose 121 H 159 H 149 H Calcium Magnesium AST Alkaline Phosphatase Lactate Dehydrogenase Total Creatine Kinase Total Protein Albumin Urine WBC (Auto) Crossmatch 07/03/16 07/03/16 07/03/16 06:45 06:45 06:45 WBC 16.8 H RBC 2.21 L Hgb 6.5 L POC Hgb Hct 19.4 L* POC Hct MCH MCHC RDW Plt Count 503 H Lymph % (Auto) 6.4 L [place] % (Auto) Lymph # 1.1 L [place] # 1.1 H Baso # Seg Neutrophils % 85.6 H Seg Neuts % (Manual) Lymphocytes % (Manual) Monocytes % (Manual) Nucleated RBC % Seg Neutrophils # 14.4 H Seg Neutrophils # Man Lymphocytes # (Manual) Monocytes # (Manual) PT INR APTT Fibrinogen Heparin Anti-Xa Level POC ABG pH POC ABG pCO2 POC ABG pO2 POC Potassium POC Chloride Sodium Potassium 2.9 L* Chloride Carbon Dioxide POC BUN BUN 21 H Creatinine 1.6 H Glucose 126 H POC Glucose Calcium 8.0 L Magnesium 1.6 L AST Alkaline Phosphatase Lactate Dehydrogenase Total Creatine Kinase Total Protein Albumin Urine WBC (Auto) Crossmatch 07/03/16 07/03/16 07/03/16 12:54 19:00 20:01 WBC RBC Hgb POC Hgb Hct POC Hct MCH MCHC RDW Plt Count Lymph % (Auto) [place] % (Auto) Lymph # [place] # Baso # Seg Neutrophils % Seg Neuts % (Manual) Lymphocytes % (Manual) Monocytes % (Manual) Nucleated RBC % Seg Neutrophils # Seg Neutrophils # Man Lymphocytes # (Manual) Monocytes # (Manual) PT INR APTT Fibrinogen Heparin Anti-Xa Level POC ABG pH 7.302 L POC ABG pCO2 49.8 H POC ABG pO2 422 H POC Potassium POC Chloride Sodium Potassium Chloride Carbon Dioxide POC BUN BUN Creatinine Glucose POC Glucose 129 H Calcium Magnesium AST Alkaline Phosphatase Lactate Dehydrogenase Total Creatine Kinase Total Protein Albumin Urine WBC (Auto) Crossmatch See Detail 07/03/16 07/04/16 07/04/16 23:09 04:30 04:30 WBC 19.6 H RBC 3.21 L Hgb 9.4 L POC Hgb Hct 28.2 L POC Hct MCH MCHC RDW Plt Count Lymph % (Auto) 6.5 L [place] % (Auto) Lymph # [place] # 1.2 H Baso # Seg Neutrophils % 86.4 H Seg Neuts % (Manual) Lymphocytes % (Manual) Monocytes % (Manual) Nucleated RBC % Seg Neutrophils # 16.9 H Seg Neutrophils # Man Lymphocytes # (Manual) Monocytes # (Manual) PT INR APTT Fibrinogen Heparin Anti-Xa Level POC ABG pH POC ABG pCO2 POC ABG pO2 POC Potassium POC Chloride Sodium Potassium 3.5 L D Chloride 111.2 H Carbon Dioxide 20 L POC BUN BUN 18 H Creatinine Glucose POC Glucose 111 H Calcium 7.0 L Magnesium AST Alkaline Phosphatase Lactate Dehydrogenase Total Creatine Kinase Total Protein Albumin Urine WBC (Auto) Crossmatch 07/04/16 07/04/16 07/04/16 05:44 12:50 14:33 WBC RBC Hgb POC Hgb Hct POC Hct MCH MCHC RDW Plt Count Lymph % (Auto) [place] % (Auto) Lymph # [place] # Baso # Seg Neutrophils % Seg Neuts % (Manual) Lymphocytes % (Manual) Monocytes % (Manual) Nucleated RBC % Seg Neutrophils # Seg Neutrophils # Man Lymphocytes # (Manual) Monocytes # (Manual) PT INR APTT Fibrinogen Heparin Anti-Xa Level POC ABG pH 7.465 H 7.468 H POC ABG pCO2 29.5 L 29.1 L 33.1 L POC ABG pO2 110 H 39 L POC Potassium POC Chloride Sodium Potassium Chloride Carbon Dioxide POC BUN BUN Creatinine Glucose POC Glucose Calcium Magnesium AST Alkaline Phosphatase Lactate Dehydrogenase Total Creatine Kinase Total Protein Albumin Urine WBC (Auto) Crossmatch 07/04/16 07/05/16 07/05/16 16:49 00:20 04:19 WBC 16.2 H RBC 3.44 L Hgb POC Hgb Hct POC Hct MCH MCHC RDW Plt Count Lymph % (Auto) 5.2 L [place] % (Auto) 7.5 H Lymph # 0.8 L [place] # 1.2 H Baso # Seg Neutrophils % 86.5 H Seg Neuts % (Manual) Lymphocytes % (Manual) Monocytes % (Manual) Nucleated RBC % Seg Neutrophils # 14.0 H Seg Neutrophils # Man Lymphocytes # (Manual) Monocytes # (Manual) PT INR APTT Fibrinogen Heparin Anti-Xa Level POC ABG pH POC ABG pCO2 31.1 L POC ABG pO2 110 H POC Potassium POC Chloride Sodium Potassium Chloride Carbon Dioxide POC BUN BUN Creatinine Glucose POC Glucose 168 H Calcium Magnesium AST Alkaline Phosphatase Lactate Dehydrogenase Total Creatine Kinase Total Protein Albumin Urine WBC (Auto) Crossmatch 07/05/16 07/05/16 07/05/16 04:19 06:01 09:54 WBC RBC Hgb POC Hgb Hct POC Hct MCH MCHC RDW Plt Count Lymph % (Auto) [place] % (Auto) Lymph # [place] # Baso # Seg Neutrophils % Seg Neuts % (Manual) Lymphocytes % (Manual) Monocytes % (Manual) Nucleated RBC % Seg Neutrophils # Seg Neutrophils # Man Lymphocytes # (Manual) Monocytes # (Manual) PT INR APTT Fibrinogen Heparin Anti-Xa Level POC ABG pH POC ABG pCO2 POC ABG pO2 POC Potassium POC Chloride Sodium 146 H Potassium 3.5 L Chloride 109.1 H Carbon Dioxide POC BUN BUN Creatinine Glucose 135 H POC Glucose 146 H 284 H Calcium 7.8 L Magnesium AST Alkaline Phosphatase Lactate Dehydrogenase Total Creatine Kinase Total Protein Albumin Urine WBC (Auto) Crossmatch 07/05/16 07/06/16 07/06/16 13:35 04:40 04:40 WBC 17.7 H RBC 3.32 L Hgb 9.8 L POC Hgb Hct 29.8 L POC Hct MCH MCHC RDW Plt Count Lymph % (Auto) [place] % (Auto) Lymph # [place] # Baso # Seg Neutrophils % Seg Neuts % (Manual) 85.0 H Lymphocytes % (Manual) 4.0 L Monocytes % (Manual) 10.0 H Nucleated RBC % Seg Neutrophils # Seg Neutrophils # Man 15.0 H Lymphocytes # (Manual) 0.7 L Monocytes # (Manual) 1.8 H PT INR APTT Fibrinogen Heparin Anti-Xa Level POC ABG pH POC ABG pCO2 POC ABG pO2 POC Potassium POC Chloride Sodium Potassium 3.5 L Chloride Carbon Dioxide 21 L POC BUN BUN Creatinine Glucose 108 H POC Glucose 130 H Calcium 7.8 L Magnesium AST Alkaline Phosphatase Lactate Dehydrogenase Total Creatine Kinase Total Protein Albumin Urine WBC (Auto) Crossmatch 07/06/16 07/06/16 07/06/16 07:46 11:49 15:31 WBC RBC Hgb POC Hgb Hct POC Hct MCH MCHC RDW Plt Count Lymph % (Auto) [place] % (Auto) Lymph # [place] # Baso # Seg Neutrophils % Seg Neuts % (Manual) Lymphocytes % (Manual) Monocytes % (Manual) Nucleated RBC % Seg Neutrophils # Seg Neutrophils # Man Lymphocytes # (Manual) Monocytes # (Manual) PT INR APTT Fibrinogen Heparin Anti-Xa Level POC ABG pH POC ABG pCO2 POC ABG pO2 POC Potassium POC Chloride Sodium Potassium Chloride Carbon Dioxide POC BUN BUN Creatinine Glucose POC Glucose 149 H 146 H 135 H Calcium Magnesium AST Alkaline Phosphatase Lactate Dehydrogenase Total Creatine Kinase Total Protein Albumin Urine WBC (Auto) Crossmatch 07/06/16 07/06/16 07/07/16 17:17 20:59 04:53 WBC 15.5 H RBC 3.55 L Hgb POC Hgb Hct POC Hct MCH MCHC RDW Plt Count Lymph % (Auto) 4.9 L [place] % (Auto) Lymph # 0.8 L [place] # 0.9 H Baso # Seg Neutrophils % 87.9 H Seg Neuts % (Manual) Lymphocytes % (Manual) Monocytes % (Manual) Nucleated RBC % Seg Neutrophils # 13.7 H Seg Neutrophils # Man Lymphocytes # (Manual) Monocytes # (Manual) PT INR APTT Fibrinogen Heparin Anti-Xa Level POC ABG pH POC ABG pCO2 POC ABG pO2 POC Potassium POC Chloride Sodium Potassium Chloride Carbon Dioxide POC BUN BUN Creatinine Glucose POC Glucose 140 H Calcium Magnesium AST Alkaline Phosphatase Lactate Dehydrogenase Total Creatine Kinase Total Protein Albumin Urine WBC (Auto) 67.0 H Crossmatch 07/07/16 07/07/16 07/07/16 04:53 06:13 07:15 WBC RBC Hgb POC Hgb Hct POC Hct MCH MCHC RDW Plt Count Lymph % (Auto) [place] % (Auto) Lymph # [place] # Baso # Seg Neutrophils % Seg Neuts % (Manual) Lymphocytes % (Manual) Monocytes % (Manual) Nucleated RBC % Seg Neutrophils # Seg Neutrophils # Man Lymphocytes # (Manual) Monocytes # (Manual) PT INR APTT Fibrinogen Heparin Anti-Xa Level POC ABG pH POC ABG pCO2 POC ABG pO2 POC Potassium POC Chloride Sodium Potassium 3.4 L Chloride Carbon Dioxide POC BUN BUN Creatinine Glucose 104 H POC Glucose 122 H 134 H Calcium 8.0 L Magnesium AST Alkaline Phosphatase Lactate Dehydrogenase Total Creatine Kinase Total Protein Albumin Urine WBC (Auto) Crossmatch 07/07/16 07/07/16 07/07/16 08:06 08:06 10:31 WBC RBC Hgb POC Hgb Hct POC Hct MCH MCHC RDW Plt Count Lymph % (Auto) [place] % (Auto) Lymph # [place] # Baso # Seg Neutrophils % Seg Neuts % (Manual) Lymphocytes % (Manual) Monocytes % (Manual) Nucleated RBC % Seg Neutrophils # Seg Neutrophils # Man Lymphocytes # (Manual) Monocytes # (Manual) PT INR APTT Fibrinogen Heparin Anti-Xa Level POC ABG pH POC ABG pCO2 POC ABG pO2 POC Potassium POC Chloride Sodium Potassium Chloride Carbon Dioxide POC BUN BUN Creatinine Glucose 111 H POC Glucose 145 H Calcium 7.9 L Magnesium AST 53 H Alkaline Phosphatase 164 H Lactate Dehydrogenase Total Creatine Kinase Total Protein 6.2 L Albumin 1.4 L Urine WBC (Auto) Crossmatch See Detail 07/07/16 07/07/16 07/07/16 12:08 13:57 16:44 WBC RBC Hgb 9.7 L POC Hgb Hct 30.1 L POC Hct MCH MCHC RDW Plt Count Lymph % (Auto) [place] % (Auto) Lymph # [place] # Baso # Seg Neutrophils % Seg Neuts % (Manual) Lymphocytes % (Manual) Monocytes % (Manual) Nucleated RBC % Seg Neutrophils # Seg Neutrophils # Man Lymphocytes # (Manual) Monocytes # (Manual) PT INR APTT Fibrinogen Heparin Anti-Xa Level POC ABG pH POC ABG pCO2 POC ABG pO2 POC Potassium POC Chloride Sodium Potassium Chloride Carbon Dioxide POC BUN BUN Creatinine Glucose POC Glucose 159 H 173 H Calcium Magnesium AST Alkaline Phosphatase Lactate Dehydrogenase Total Creatine Kinase Total Protein Albumin Urine WBC (Auto) Crossmatch 07/07/16 07/08/16 07/08/16 23:31 07:27 12:16 WBC RBC Hgb POC Hgb Hct POC Hct MCH MCHC RDW Plt Count Lymph % (Auto) [place] % (Auto) Lymph # [place] # Baso # Seg Neutrophils % Seg Neuts % (Manual) Lymphocytes % (Manual) Monocytes % (Manual) Nucleated RBC % Seg Neutrophils # Seg Neutrophils # Man Lymphocytes # (Manual) Monocytes # (Manual) PT INR APTT Fibrinogen Heparin Anti-Xa Level POC ABG pH POC ABG pCO2 POC ABG pO2 POC Potassium POC Chloride Sodium Potassium Chloride Carbon Dioxide POC BUN BUN Creatinine Glucose POC Glucose 163 H 149 H 150 H Calcium Magnesium AST Alkaline Phosphatase Lactate Dehydrogenase Total Creatine Kinase Total Protein Albumin Urine WBC (Auto) Crossmatch 07/08/16 07/08/16 07/08/16 12:50 16:46 21:45 WBC RBC Hgb POC Hgb Hct POC Hct MCH MCHC RDW Plt Count Lymph % (Auto) [place] % (Auto) Lymph # [place] # Baso # Seg Neutrophils % Seg Neuts % (Manual) Lymphocytes % (Manual) Monocytes % (Manual) Nucleated RBC % Seg Neutrophils # Seg Neutrophils # Man Lymphocytes # (Manual) Monocytes # (Manual) PT INR APTT Fibrinogen Heparin Anti-Xa Level POC ABG pH POC ABG pCO2 POC ABG pO2 POC Potassium POC Chloride Sodium Potassium Chloride Carbon Dioxide 21 L POC BUN BUN Creatinine Glucose 126 H POC Glucose 143 H 134 H Calcium 7.5 L Magnesium AST Alkaline Phosphatase Lactate Dehydrogenase Total Creatine Kinase Total Protein Albumin Urine WBC (Auto) Crossmatch 07/09/16 07/09/16 07/09/16 07:31 07:31 08:07 WBC RBC Hgb POC Hgb Hct POC Hct MCH MCHC RDW Plt Count Lymph % (Auto) [place] % (Auto) Lymph # [place] # Baso # Seg Neutrophils % Seg Neuts % (Manual) Lymphocytes % (Manual) Monocytes % (Manual) Nucleated RBC % Seg Neutrophils # Seg Neutrophils # Man Lymphocytes # (Manual) Monocytes # (Manual) PT INR APTT Fibrinogen Heparin Anti-Xa Level POC ABG pH POC ABG pCO2 POC ABG pO2 POC Potassium POC Chloride Sodium Potassium Chloride Carbon Dioxide POC BUN BUN Creatinine Glucose 117 H POC Glucose 132 H Calcium 7.5 L Magnesium AST Alkaline Phosphatase 136 H Lactate Dehydrogenase 285 H Total Creatine Kinase 297 H Total Protein 5.4 L Albumin 1.5 L Urine WBC (Auto) Crossmatch 07/09/16 07/09/16 07/09/16 09:55 11:10 16:26 WBC 13.4 H RBC 1.95 L Hgb 5.8 L* D POC Hgb Hct 17.7 L* D POC Hct MCH MCHC RDW 15.5 H Plt Count Lymph % (Auto) 9.4 L [place] % (Auto) 8.3 H Lymph # [place] # 1.1 H Baso # Seg Neutrophils % 81.2 H Seg Neuts % (Manual) Lymphocytes % (Manual) Monocytes % (Manual) Nucleated RBC % Seg Neutrophils # 10.9 H Seg Neutrophils # Man Lymphocytes # (Manual) Monocytes # (Manual) PT INR APTT Fibrinogen Heparin Anti-Xa Level POC ABG pH POC ABG pCO2 POC ABG pO2 POC Potassium POC Chloride Sodium Potassium Chloride Carbon Dioxide POC BUN BUN Creatinine Glucose POC Glucose 240 H 113 H Calcium Magnesium AST Alkaline Phosphatase Lactate Dehydrogenase Total Creatine Kinase Total Protein Albumin Urine WBC (Auto) Crossmatch 07/09/16 07/10/16 07/10/16 21:45 04:10 09:03 WBC 15.1 H RBC 3.00 L Hgb 8.8 L D POC Hgb Hct 26.2 L D POC Hct MCH MCHC RDW 15.4 H Plt Count Lymph % (Auto) 8.4 L [place] % (Auto) 8.4 H Lymph # [place] # 1.3 H Baso # Seg Neutrophils % 82.5 H Seg Neuts % (Manual) Lymphocytes % (Manual) Monocytes % (Manual) Nucleated RBC % Seg Neutrophils # 12.5 H Seg Neutrophils # Man Lymphocytes # (Manual) Monocytes # (Manual) PT INR APTT Fibrinogen Heparin Anti-Xa Level POC ABG pH POC ABG pCO2 POC ABG pO2 POC Potassium POC Chloride Sodium Potassium Chloride Carbon Dioxide POC BUN BUN Creatinine Glucose POC Glucose 113 H 122 H Calcium Magnesium AST Alkaline Phosphatase Lactate Dehydrogenase Total Creatine Kinase Total Protein Albumin Urine WBC (Auto) Crossmatch 07/10/16 07/10/16 07/10/16 11:38 15:36 21:45 WBC RBC Hgb POC Hgb Hct POC Hct MCH MCHC RDW Plt Count Lymph % (Auto) [place] % (Auto) Lymph # [place] # Baso # Seg Neutrophils % Seg Neuts % (Manual) Lymphocytes % (Manual) Monocytes % (Manual) Nucleated RBC % Seg Neutrophils # Seg Neutrophils # Man Lymphocytes # (Manual) Monocytes # (Manual) PT INR APTT Fibrinogen Heparin Anti-Xa Level POC ABG pH POC ABG pCO2 POC ABG pO2 POC Potassium POC Chloride Sodium Potassium Chloride Carbon Dioxide POC BUN BUN Creatinine Glucose POC Glucose 146 H 131 H 141 H Calcium Magnesium AST Alkaline Phosphatase Lactate Dehydrogenase Total Creatine Kinase Total Protein Albumin Urine WBC (Auto) Crossmatch 07/11/16 07/11/16 07/11/16 05:10 07:40 11:45 WBC RBC Hgb POC Hgb Hct POC Hct MCH MCHC RDW Plt Count Lymph % (Auto) [place] % (Auto) Lymph # [place] # Baso # Seg Neutrophils % Seg Neuts % (Manual) Lymphocytes % (Manual) Monocytes % (Manual) Nucleated RBC % Seg Neutrophils # Seg Neutrophils # Man Lymphocytes # (Manual) Monocytes # (Manual) PT INR APTT Fibrinogen Heparin Anti-Xa Level POC ABG pH POC ABG pCO2 POC ABG pO2 POC Potassium POC Chloride Sodium Potassium Chloride Carbon Dioxide POC BUN BUN Creatinine Glucose 107 H POC Glucose 114 H 116 H Calcium 7.7 L Magnesium AST 81 H Alkaline Phosphatase 153 H Lactate Dehydrogenase Total Creatine Kinase Total Protein 6.0 L Albumin 1.8 L Urine WBC (Auto) Crossmatch 07/11/16 07/11/16 07/12/16 16:22 19:45 08:39 WBC RBC Hgb POC Hgb Hct POC Hct MCH MCHC RDW Plt Count Lymph % (Auto) [place] % (Auto) Lymph # [place] # Baso # Seg Neutrophils % Seg Neuts % (Manual) Lymphocytes % (Manual) Monocytes % (Manual) Nucleated RBC % Seg Neutrophils # Seg Neutrophils # Man Lymphocytes # (Manual) Monocytes # (Manual) PT INR APTT Fibrinogen Heparin Anti-Xa Level POC ABG pH POC ABG pCO2 POC ABG pO2 POC Potassium POC Chloride Sodium Potassium Chloride Carbon Dioxide POC BUN BUN Creatinine Glucose POC Glucose 110 H 106 H 124 H Calcium Magnesium AST Alkaline Phosphatase Lactate Dehydrogenase Total Creatine Kinase Total Protein Albumin Urine WBC (Auto) Crossmatch 07/12/16 07/12/16 07/13/16 11:31 16:36 07:05 WBC 12.4 H RBC 2.93 L Hgb 8.5 L POC Hgb Hct 25.6 L POC Hct MCH MCHC RDW Plt Count Lymph % (Auto) 11.2 L [place] % (Auto) 7.5 H Lymph # [place] # 0.9 H Baso # Seg Neutrophils % 80.6 H Seg Neuts % (Manual) Lymphocytes % (Manual) Monocytes % (Manual) Nucleated RBC % Seg Neutrophils # 10.0 H Seg Neutrophils # Man Lymphocytes # (Manual) Monocytes # (Manual) PT INR APTT Fibrinogen Heparin Anti-Xa Level POC ABG pH POC ABG pCO2 POC ABG pO2 POC Potassium POC Chloride Sodium Potassium Chloride Carbon Dioxide POC BUN BUN Creatinine Glucose POC Glucose 128 H 119 H Calcium Magnesium AST Alkaline Phosphatase Lactate Dehydrogenase Total Creatine Kinase Total Protein Albumin Urine WBC (Auto) Crossmatch 07/13/16 07/13/16 07/13/16 07:30 11:41 13:45 WBC RBC Hgb POC Hgb Hct POC Hct MCH MCHC RDW Plt Count Lymph % (Auto) [place] % (Auto) Lymph # [place] # Baso # Seg Neutrophils % Seg Neuts % (Manual) Lymphocytes % (Manual) Monocytes % (Manual) Nucleated RBC % Seg Neutrophils # Seg Neutrophils # Man Lymphocytes # (Manual) Monocytes # (Manual) PT INR APTT Fibrinogen Heparin Anti-Xa Level POC ABG pH POC ABG pCO2 POC ABG pO2 POC Potassium POC Chloride Sodium Potassium Chloride Carbon Dioxide POC BUN BUN Creatinine Glucose POC Glucose 133 H 129 H Calcium Magnesium AST Alkaline Phosphatase Lactate Dehydrogenase Total Creatine Kinase Total Protein Albumin Urine WBC (Auto) Crossmatch See Detail 07/13/16 07/13/16 07/14/16 15:28 23:29 08:15 WBC RBC Hgb POC Hgb Hct POC Hct MCH MCHC RDW Plt Count Lymph % (Auto) [place] % (Auto) Lymph # [place] # Baso # Seg Neutrophils % Seg Neuts % (Manual) Lymphocytes % (Manual) Monocytes % (Manual) Nucleated RBC % Seg Neutrophils # Seg Neutrophils # Man Lymphocytes # (Manual) Monocytes # (Manual) PT INR APTT Fibrinogen Heparin Anti-Xa Level POC ABG pH POC ABG pCO2 POC ABG pO2 POC Potassium POC Chloride Sodium Potassium Chloride Carbon Dioxide POC BUN BUN Creatinine Glucose POC Glucose 119 H 113 H 130 H Calcium Magnesium AST Alkaline Phosphatase Lactate Dehydrogenase Total Creatine Kinase Total Protein Albumin Urine WBC (Auto) Crossmatch 07/14/16 07/14/16 07/14/16 08:30 12:12 17:00 WBC RBC Hgb POC Hgb Hct POC Hct MCH MCHC RDW Plt Count Lymph % (Auto) [place] % (Auto) Lymph # [place] # Baso # Seg Neutrophils % Seg Neuts % (Manual) Lymphocytes % (Manual) Monocytes % (Manual) Nucleated RBC % Seg Neutrophils # Seg Neutrophils # Man Lymphocytes # (Manual) Monocytes # (Manual) PT INR APTT Fibrinogen Heparin Anti-Xa Level POC ABG pH POC ABG pCO2 POC ABG pO2 POC Potassium POC Chloride Sodium 135 L Potassium Chloride Carbon Dioxide POC BUN BUN Creatinine Glucose 113 H POC Glucose 115 H 119 H Calcium 7.8 L Magnesium AST Alkaline Phosphatase Lactate Dehydrogenase Total Creatine Kinase Total Protein Albumin Urine WBC (Auto) Crossmatch 07/14/16 07/15/16 07/15/16 Unknown 04:15 04:15 WBC 13.9 H 15.3 H RBC Hgb POC Hgb Hct POC Hct MCH MCHC RDW Plt Count Lymph % (Auto) 9.9 L 9.3 L [place] % (Auto) Lymph # [place] # 0.9 H Baso # Seg Neutrophils % 83.8 H 83.9 H Seg Neuts % (Manual) Lymphocytes % (Manual) Monocytes % (Manual) Nucleated RBC % Seg Neutrophils # 11.7 H 12.9 H Seg Neutrophils # Man Lymphocytes # (Manual) Monocytes # (Manual) PT INR APTT Fibrinogen Heparin Anti-Xa Level POC ABG pH POC ABG pCO2 POC ABG pO2 POC Potassium POC Chloride Sodium 131 L Potassium Chloride 96.5 L Carbon Dioxide POC BUN BUN Creatinine 0.6 L Glucose 104 H POC Glucose Calcium 8.0 L Magnesium AST Alkaline Phosphatase Lactate Dehydrogenase Total Creatine Kinase Total Protein Albumin Urine WBC (Auto) Crossmatch 07/15/16 07/15/16 07/15/16 11:29 16:06 22:05 WBC RBC Hgb POC Hgb Hct POC Hct MCH MCHC RDW Plt Count Lymph % (Auto) [place] % (Auto) Lymph # [place] # Baso # Seg Neutrophils % Seg Neuts % (Manual) Lymphocytes % (Manual) Monocytes % (Manual) Nucleated RBC % Seg Neutrophils # Seg Neutrophils # Man Lymphocytes # (Manual) Monocytes # (Manual) PT INR APTT Fibrinogen Heparin Anti-Xa Level POC ABG pH POC ABG pCO2 POC ABG pO2 POC Potassium POC Chloride Sodium Potassium Chloride Carbon Dioxide POC BUN BUN Creatinine Glucose POC Glucose 114 H 165 H 127 H Calcium Magnesium AST Alkaline Phosphatase Lactate Dehydrogenase Total Creatine Kinase Total Protein Albumin Urine WBC (Auto) Crossmatch 07/16/16 07/16/16 07/16/16 07:36 07:36 07:39 WBC RBC 2.86 L Hgb 8.5 L POC Hgb Hct 25.0 L D POC Hct MCH MCHC RDW Plt Count Lymph % (Auto) [place] % (Auto) 8.5 H Lymph # [place] # 0.9 H Baso # Seg Neutrophils % 77.7 H Seg Neuts % (Manual) Lymphocytes % (Manual) Monocytes % (Manual) Nucleated RBC % Seg Neutrophils # 8.5 H Seg Neutrophils # Man Lymphocytes # (Manual) Monocytes # (Manual) PT INR APTT Fibrinogen Heparin Anti-Xa Level POC ABG pH POC ABG pCO2 POC ABG pO2 POC Potassium POC Chloride Sodium 136 L Potassium Chloride Carbon Dioxide POC BUN BUN Creatinine 0.5 L Glucose 133 H POC Glucose 137 H Calcium 8.0 L Magnesium AST Alkaline Phosphatase Lactate Dehydrogenase Total Creatine Kinase Total Protein Albumin Urine WBC (Auto) Crossmatch
[2016-07-16] MEDS: DURAGESIC TD SCH (12:21)
[2016-07-16] MEDS: THERMAZENE 50 GRAM TP SCH (12:23)
[2016-07-16] MEDS: D5W/0.45% NACL/KCL 20 MEQ 1,000 ML IV SCH (12:39)
[2016-07-16] MEDS: MORPHINE IV PRN ×2 (15:33→19:47)
--- NOTE | 2016-07-16 17:12 | Progress Note ---
Assessment and Plan Pt eval'd earlier this am. S/p L AKA. Noted to have cloudy drainage tracking from left groin to medial amp site intra-operatively. A Bridged vac placed from groin to distal amp site. Et to f/u. Packing in right groin to be changed tomorrow. Abx per ID recommendations. Will likely need extended treatment course given retained graft material. Continue supportive care for now. - Patient Problems (1) Atherosclerosis of [place] arteries of extremity with intermittent claudication Current Visit: Yes Status: Acute Subjective Date of service: 07/16/16 Principal diagnosis: Infected vascular graft; s/p cardiopulmonary arrest Interval history: Pt awake, c/o incisional pain. Improved with analgesics. Objective - Constitutional Vitals: Vital Signs - 12hr 07/16/16 07/16/16 07/16/16 05:30 05:34 06:01 Temperature Pulse Rate 90 87 87 Pulse Rate [ Apical] Pulse Rate [ From Monitor] Respiratory 12 13 13 Rate Blood Pressure 109/69 109/69 104/78 O2 Sat by Pulse 100 97 98 Oximetry 07/16/16 07/16/16 07/16/16 06:09 06:30 07:00 Temperature Pulse Rate 89 85 91 H Pulse Rate [ Apical] Pulse Rate [ From Monitor] Respiratory 12 12 16 Rate Blood Pressure 104/78 130/72 126/68 O2 Sat by Pulse 99 98 98 Oximetry 07/16/16 07/16/16 07/16/16 07:30 08:00 08:27 Temperature 98.3 F Pulse Rate 89 85 88 Pulse Rate [ 68 Apical] Pulse Rate [ 68 From Monitor] Respiratory 12 13 17 Rate Blood Pressure 120/45 126/54 126/54 O2 Sat by Pulse 100 100 99 Oximetry 07/16/16 07/16/16 07/16/16 08:29 08:30 09:00 Temperature Pulse Rate 87 82 90 Pulse Rate [ Apical] Pulse Rate [ From Monitor] Respiratory 15 14 10 L Rate Blood Pressure 134/64 134/64 135/74 O2 Sat by Pulse 99 100 98 Oximetry 07/16/16 07/16/16 07/16/16 09:28 09:31 09:45 Temperature Pulse Rate 90 92 H 97 H Pulse Rate [ Apical] Pulse Rate [ From Monitor] Respiratory 13 20 Rate Blood Pressure 135/74 136/67 136/67 O2 Sat by Pulse 100 100 Oximetry 07/16/16 07/16/16 07/16/16 10:00 10:07 10:31 Temperature Pulse Rate 90 97 H 93 H Pulse Rate [ 90 Apical] Pulse Rate [ 90 From Monitor] Respiratory 15 12 14 Rate Blood Pressure 138/68 138/68 138/75 O2 Sat by Pulse 100 99 99 Oximetry 07/16/16 07/16/16 07/16/16 11:00 11:30 11:43 Temperature Pulse Rate 89 93 H 90 Pulse Rate [ Apical] Pulse Rate [ From Monitor] Respiratory 15 13 14 Rate Blood Pressure 142/63 146/70 146/70 O2 Sat by Pulse 100 100 100 Oximetry 07/16/16 07/16/16 07/16/16 12:00 12:01 12:30 Temperature 97.4 F L Pulse Rate 91 H 89 Pulse Rate [ 95 H Apical] Pulse Rate [ From Monitor] Respiratory 16 13 17 Rate Blood Pressure 146/70 149/67 O2 Sat by Pulse 100 100 Oximetry 07/16/16 07/16/16 07/16/16 13:00 13:31 14:00 Temperature Pulse Rate 92 H 88 92 H Pulse Rate [ Apical] Pulse Rate [ From Monitor] Respiratory 14 13 11 L Rate Blood Pressure 145/73 145/73 138/70 O2 Sat by Pulse 100 100 100 Oximetry 07/16/16 07/16/16 07/16/16 14:07 14:31 15:01 Temperature Pulse Rate 95 H Pulse Rate [ Apical] Pulse Rate [ From Monitor] Respiratory 14 Rate Blood Pressure 138/70 138/70 142/49 O2 Sat by Pulse 98 99 100 Oximetry 07/16/16 07/16/16 15:30 16:00 Temperature 97.7 F Pulse Rate 92 H 91 H Pulse Rate [ Apical] Pulse Rate [ From Monitor] Respiratory 23 14 Rate Blood Pressure 137/63 128/67 O2 Sat by Pulse 100 100 Oximetry General appearance: Present: no acute distress - EENT Eyes: EOM intact ENT: hearing intact - Neck Neck: supple - Respiratory Respiratory effort: normal Extremities: abnormal (Left groin and distal amp site vac in place. Right groin bandage CDI.) - Psychiatric Psychiatric: appropriate mood/affect, cooperative - Labs CBC & Chem 7: 07/16/16 07:36 07/16/16 07:36 Labs: Abnormal lab results 07/15/16 07/15/16 07/16/16 Range/Units 16:06 22:05 07:36 RBC 2.86 L (3.65-5.03) M/mm3 Hgb 8.5 L (10.1-14.3) gm/dl Hct 25.0 L D (30.3-42.9) % [place] % (Auto) 8.5 H (0.0-7.3) % [place] # 0.9 H (0.0-0.8) K/mm3 Seg Neutrophils % 77.7 H (40.0-70.0) % Seg Neutrophils # 8.5 H (1.8-7.7) K/mm3 Sodium (137-145) mmol/L Creatinine (0.7-1.2) mg/dL Glucose (65-100) mg/dL POC Glucose 165 H 127 H (70-105) Calcium (8.4-10.2) mg/dL 07/16/16 07/16/16 07/16/16 Range/Units 07:36 07:39 11:43 RBC (3.65-5.03) M/mm3 Hgb (10.1-14.3) gm/dl Hct (30.3-42.9) % [place] % (Auto) (0.0-7.3) % [place] # (0.0-0.8) K/mm3 Seg Neutrophils % (40.0-70.0) % Seg Neutrophils # (1.8-7.7) K/mm3 Sodium 136 L (137-145) mmol/L Creatinine 0.5 L (0.7-1.2) mg/dL Glucose 133 H (65-100) mg/dL POC Glucose 137 H 154 H (70-105) Calcium 8.0 L (8.4-10.2) mg/dL
[2016-07-17] MEDS: PERCOCET 5/325 PO PRN ×3 (03:30→21:39)
[2016-07-17] MEDS: ZOSYN/NS 4.5GM/100ML 100 ML IV SCH ×3 (04:30→21:39)
[2016-07-17] MEDS: D5W/0.45% NACL/KCL 20 MEQ 1,000 ML IV SCH ×2 (04:31→16:56)
[2016-07-17] MEDS: MORPHINE IV PRN ×3 (05:11→22:59)
[2016-07-17 05:26] LABS: Basophils % (Auto) 0.5 % (0.0-1.8); Eosinophils % (Auto) 0.3 % (0.0-4.3); Hematocrit 25.7 % (30.3-42.9); Hemoglobin 8.5 gm/dl (10.1-14.3); Mean Corpuscular HGB Conc 33 % (30-34); Mean Corpuscular Hemoglobin 29 pg (28-32); Mean Corpuscular Volume 87 fl (79-97); Platelet Count 415 K/mm3 (140-440); Red Blood Count 2.95 M/mm3 (3.65-5.03); Red Cell Distribution Width 14.8 % (13.2-15.2); White Blood Count 11.6 K/mm3 (4.5-11.0)
[2016-07-17 05:42] LABS: BUN/Creatinine Ratio 11.66; Blood Urea Nitrogen 7 mg/dL (7-17); Calcium 8.5 mg/dL (8.4-10.2); Carbon Dioxide 25 mmol/L (22-30); Chloride 101.3 mmol/L (98-107); Glucose 115 mg/dL (65-100); Magnesium 1.4 mg/dL (1.7-2.3); Potassium 3.9 mmol/L (3.6-5.0); Sodium 137 mmol/L (137-145)
[2016-07-17 05:44] LABS: Anion Gap 15 mmol/L
[2016-07-17] MEDS: NOVOLOG SUB-Q SCH ×4 (07:35→23:25)
--- NOTE | 2016-07-17 09:50 | Progress Note ---
Assessment and Plan Current antibiotics: Zosyn 4.5 grams IV q8h 07/08 --> Previous antibiotics: Zosyn 2.25 g IV q8h 06/21-06/24 Cefazolin perioperatively ASSESSMENT: Cande Ge is a 55-year-old female with severe peripheral vascular disease, type 2 DM with peripheral neuropathy and hypertension who was admitted to [facility] as an outpatient with left lower extremity pain at rest for her cutaneous intervention which was unsuccessful and subsequently underwent left femoral endarterectomy and left iliac stenting and left femoral-popliteal bypass on 06/16 , urgent thrombectomies on 06/20 and right femoral endarterectomy with patch angioplasty on 07/03. She also had 2 cardiac arrests on 06/20 requiring resuscitation and intubation. She developed evidence of a retroperitoneal hematoma and ureteral obstruction and underwent bilateral ureteral stenting on 06/27. She has had a low-grade fever and leukocytosis. Problem list: 1. 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 Severe peripheral vascular disease -Unsuccessful attempt at percutaneous left lower extremity revascularization 06/13 -Left femoral endarterectomy, left iliac stenting and left femoral-popliteal bypass on 06/16 -Left lower extremity thrombectomies on 06/20 -Right femoral endarterectomy with patch angioplasty on 07/03 -Status post left AKA 07/15 3. Leukocytosis -Likely reactive -Patient has multiple reasons for leukocytosis including retroperitoneal hematoma , GI bleeding and multiple surgeries -Status post left groin infection and infected Dacron patch -Resolving 4. Low-grade fever -Resolved 5. Right groin wound infection -Purulent material seen at surgery 07/15/16 6. Retroperitoneal hematoma -As seen on CT scan 06/27 -Resolving 7. Bilateral hydroureteronephrosis -Status post bilateral ureteral stenting 06/27 8. Status post cardiopulmonary arrests X 2 -06/20 -Mechanical ventilatory support until 07/05 9. REJI -Creatinine peaked at 4.8 on 06/27 -Likely secondary to ATN -Resolved 10. Anemia -Likely multifactorial secondary to bleeding and chronic disease 10. Type 2 DM PLAN: 1. Continue Zosyn 2. Continue local wound care 3. I discussed yesterday with vascular and indeed there is retained material on the left as well as the finding of pus in the right groin. She will thus require a long-term course of antibiotics postoperatively (at least 4 weeks) 4. Continued supportive measures and close observation Soham Iverson MD [facility] Office: [phone] Subjective Date of service: 07/17/16 Principal diagnosis: Infected vascular graft; s/p cardiopulmonary arrest Interval history: Looks much better today. No complaints this morning including no pain. ROS: No subjective fever or chills. No nausea, vomiting or diarrhea. No shortness of breath, cough or pleuritic chest pain Objective - Exam Narrative Exam: GENERAL: Well-developed, well-nourished appearing female who appears somewhat older than her stated age and appears chronically ill but is in no acute distress. He is sitting up and smiling this morning and looks great. HEAD: Normocephalic. No lesions seen. EYES: Pupils are equal reactive to light and accommodation. There is no scleral icterus. Optic fundi are not examined. EARS: External ears are normal. THROAT: Oropharynx is normal with no evidence of oral candidiasis or pharyngitis. Patient is edentulous. NECK: Supple. No enlargement of the thyroid gland. No significant cervical lymphadenopathy. No jugular venous distention at 30. LUNGS: Clear with no adventitious sounds. HEART: Regular rate with occasional extra beat heard. S1 and S2 are normal. There are no murmurs, gallops, clicks or rubs heard. ABDOMEN: Soft and nontender. Liver and spleen are not palpably enlarged or tender. No palpable masses. Bowel sounds are normoactive. EXTREMITIES: No peripheral lymphadenopathy or clubbing. Right lower extremity edema but no signs of infection. Status post left AKA with wound VAC in place with no signs of active infection. Left groin wound VAC in place. SKIN: No rash : Normal external female. No Gillespie catheter. NEUROLOGIC: Bilateral lower extremity weakness. No other focal findings. - Constitutional Vitals: Vital Signs Temp Pulse Resp BP Pulse Ox 97.4 F L 105 H 19 147/75 99 07/17/16 07:50 07/17/16 08:00 07/17/16 08:00 07/17/16 08:00 07/17/16 08:00 Temperature -Last 24 Hours Temperature 97.4 F Temperature 98.0 F Temperature 98.1 F Temperature 98.2 F Temperature 97.7 F Temperature 97.4 F - Labs CBC & Chem 7: 07/17/16 05:00 07/17/16 05:00 Labs: Abnormal lab results Microbiology 07/07/16 Unknown Thigh - Left Anaerobic Culture - Final 07/09/16 04:26 Peripheral/Venous Blood Culture - Preliminary NO GROWTH AFTER 48 HOURS 07/09/16 04:26 Peripheral/Venous Blood Culture - Preliminary NO GROWTH AFTER 48 HOURS 07/07/16 Unknown Thigh - Left Surgical Culture - Preliminary Escherichia Coli Enterococcus Faecalis Enterococcus avium 07/07/16 Unknown Thigh - Left Surgical Biopsy Culture - Preliminary Escherichia Coli Enterococcus Faecalis Enterococcus avium 07/07/16 Unknown Thigh - Left Surgical Biopsy Culture - Preliminary Escherichia Coli Enterococcus Faecalis Coccus avium 07/07/16 Unknown Thigh - Left Surgical Biopsy Culture - Preliminary Escherichia Coli Enterococcus Faecalis Enterococcus avium 07/07/16 Unknown Thigh - Left Surgical Biopsy Culture - Preliminary Escherichia Coli
[2016-07-17] MEDS: BABY ASPIRIN PO SCH (10:23)
[2016-07-17] MEDS: PLAVIX PO SCH (10:23)
[2016-07-17] MEDS: SENOKOT S PO SCH ×2 (10:23→23:25)
[2016-07-17] MEDS: TENORMIN PO SCH (10:24)
[2016-07-17] MEDS: PROTONIX PO SCH (10:24)
[2016-07-17] MEDS: FERROUS SULFATE PO SCH (10:24)
[2016-07-17] MEDS: K-DUR PO SCH (10:24)
[2016-07-17] MEDS: THERMAZENE 50 GRAM TP SCH (11:40)
--- NOTE | 2016-07-17 13:39 | Progress Note ---
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 basal 25mics/hr patch and prn morphine sulfate - wound care per WCT (2) Acute respiratory failure Current Visit: Yes Status: Acute Plan to address problem: - on room air but need to r/o hemothorax which will necessitate further intervention - thoracentesis on hold re: plavix but also clinical stability respiratory-centeno - will repeat CXR and if persistent effusion will revisit thoracentesis (3) Anemia Current Visit: Yes Status: Acute Plan to address problem: - follow H&H - evaluating source - LDH unremarkable - Likely ABLA component - H&H holding so far but trending down (4) Altered mental status Current Visit: Yes Status: Acute Plan to address problem: - improved - dementia element likely +/- depression element Subjective Date of service: 07/17/16 Principal diagnosis: Infected vascular graft; s/p cardiopulmonary arrest Interval history: Seen and examined at bedside; 24 hour events reviewed; nursing and respiratory care staff consulted; no adverse overnight events reported to me; doing well; denies acute chest pains or increased SOB; no gross bleeding Objective Vital Signs - 12hr 07/17/16 07/17/16 07/17/16 02:00 02:31 03:01 Temperature Pulse Rate 93 H 93 H 98 H Pulse Rate [ From Monitor] Respiratory 16 21 11 L Rate Blood Pressure 129/66 132/61 140/66 O2 Sat by Pulse 100 100 Oximetry 07/17/16 07/17/16 07/17/16 03:30 03:31 03:51 Temperature Pulse Rate 97 H 101 H Pulse Rate [ From Monitor] Respiratory 12 19 13 Rate Blood Pressure 132/75 132/75 O2 Sat by Pulse 99 100 Oximetry 07/17/16 07/17/16 07/17/16 03:55 04:00 04:05 Temperature 98.0 F Pulse Rate 103 H 95 H 98 H Pulse Rate [ 101 H From Monitor] Respiratory 11 L 16 16 Rate Blood Pressure 132/75 116/66 116/66 O2 Sat by Pulse 100 Oximetry 07/17/16 07/17/16 07/17/16 04:30 05:01 05:11 Temperature Pulse Rate 94 H 95 H Pulse Rate [ From Monitor] Respiratory 12 13 12 Rate Blood Pressure 123/65 122/105 O2 Sat by Pulse Oximetry 07/17/16 07/17/16 07/17/16 05:30 06:11 06:31 Temperature Pulse Rate 96 H 101 H Pulse Rate [ From Monitor] Respiratory 24 Rate Blood Pressure 124/62 124/62 136/64 O2 Sat by Pulse 100 Oximetry 07/17/16 07/17/16 07/17/16 07:01 07:21 07:30 Temperature Pulse Rate 96 H 92 H 102 H Pulse Rate [ From Monitor] Respiratory 22 18 15 Rate Blood Pressure 130/72 130/72 138/73 O2 Sat by Pulse Oximetry 07/17/16 07/17/16 07/17/16 07:50 08:00 08:20 Temperature 97.4 F L Pulse Rate 105 H 106 H Pulse Rate [ 105 H From Monitor] Respiratory 14 18 Rate Blood Pressure 147/75 147/75 O2 Sat by Pulse 99 Oximetry 07/17/16 07/17/16 07/17/16 08:31 09:01 09:31 Temperature Pulse Rate 106 H 100 H 105 H Pulse Rate [ From Monitor] Respiratory 15 16 18 Rate Blood Pressure 104/72 115/57 128/78 O2 Sat by Pulse Oximetry 07/17/16 07/17/16 07/17/16 10:00 10:24 10:31 Temperature Pulse Rate 102 H 102 H 107 H Pulse Rate [ 101 H From Monitor] Respiratory 17 14 Rate Blood Pressure 145/73 145/73 147/43 O2 Sat by Pulse 100 Oximetry 07/17/16 07/17/16 07/17/16 10:45 11:01 11:31 Temperature Pulse Rate 101 H 103 H 105 H Pulse Rate [ From Monitor] Respiratory 23 26 H 17 Rate Blood Pressure 147/43 93/70 93/70 O2 Sat by Pulse Oximetry 07/17/16 07/17/16 07/17/16 11:41 11:57 12:00 Temperature 97.4 F L Pulse Rate 92 H 87 96 H Pulse Rate [ 92 H From Monitor] Respiratory 13 20 33 H Rate Blood Pressure 104/70 104/70 128/68 O2 Sat by Pulse 100 Oximetry 07/17/16 07/17/16 07/17/16 12:03 12:31 13:01 Temperature Pulse Rate 91 H 88 110 H Pulse Rate [ From Monitor] Respiratory 21 24 16 Rate Blood Pressure 128/68 104/70 176/81 O2 Sat by Pulse 100 100 Oximetry Constitutional: no acute distress, alert Eyes: non-icteric ENT: oropharynx moist Neck: supple, no lymphadenopathy Effort: normal Ascultation: Left: diminished breath sounds (base), Bilateral: clear Cardiovascular: regular rate and rhythm Gastrointestinal: normoactive bowel sounds, soft, non-tender, non-distended Integumentary: other (weak LLExt) Extremities: edema, other (s/p left AKA) Neurologic: normal mental status, non-focal exam, pupils equal and round Psychiatric: mood appropriate, affect normal CBC and BMP: 07/18/16 05:00 07/17/16 05:00 ABG, PT/INR, D-dimer: ABG POC ABG pH 7.436 (7.35-7.45) 07/04/16 16:49 POC ABG pCO2 31.1 (35-45) L 07/04/16 16:49 POC ABG pO2 110 (80-105) H 07/04/16 16:49 POC ABG HCO3 20.9 07/04/16 16:49 POC ABG Total CO2 22 07/04/16 16:49 POC ABG O2 Sat 99 07/04/16 16:49 PT/INR, D-dimer PT 19.9 Sec. (12.2-14.9) H 06/26/16 22:57 INR 1.69 (0.87-1.13) H 06/26/16 22:57 Abnormal lab findings: Abnormal Labs 06/13/16 06/13/16 06/13/16 09:45 09:45 09:45 WBC RBC Hgb POC Hgb Hct POC Hct MCH 25 L MCHC RDW 15.8 H Plt Count Lymph % (Auto) [place] % (Auto) 8.1 H Lymph # [place] # Baso # Seg Neutrophils % Seg Neuts % (Manual) Lymphocytes % (Manual) Monocytes % (Manual) Nucleated RBC % Seg Neutrophils # Seg Neutrophils # Man Lymphocytes # (Manual) Monocytes # (Manual) PT INR APTT Fibrinogen 522 H Heparin Anti-Xa Level POC ABG pH POC ABG pCO2 POC ABG pO2 POC Potassium POC Chloride Sodium Potassium Chloride Carbon Dioxide POC BUN BUN Creatinine Glucose POC Glucose Calcium 10.3 H Magnesium AST Alkaline Phosphatase Lactate Dehydrogenase Total Creatine Kinase Total Protein Albumin Urine WBC (Auto) Crossmatch 06/13/16 06/13/16 06/13/16 09:45 20:14 20:15 WBC RBC Hgb POC Hgb Hct POC Hct MCH MCHC RDW Plt Count Lymph % (Auto) [place] % (Auto) Lymph # [place] # Baso # Seg Neutrophils % Seg Neuts % (Manual) Lymphocytes % (Manual) Monocytes % (Manual) Nucleated RBC % Seg Neutrophils # Seg Neutrophils # Man Lymphocytes # (Manual) Monocytes # (Manual) PT INR APTT 103.8 H* Fibrinogen Heparin Anti-Xa Level 0.72 H POC ABG pH POC ABG pCO2 POC ABG pO2 POC Potassium POC Chloride Sodium Potassium Chloride Carbon Dioxide POC BUN BUN Creatinine Glucose POC Glucose Calcium Magnesium AST Alkaline Phosphatase Lactate Dehydrogenase Total Creatine Kinase Total Protein Albumin Urine WBC (Auto) Crossmatch See Detail 06/14/16 06/14/16 06/14/16 07:44 10:18 19:09 WBC RBC Hgb POC Hgb Hct POC Hct MCH 26 L MCHC RDW 15.8 H Plt Count Lymph % (Auto) [place] % (Auto) 9.1 H Lymph # [place] # Baso # Seg Neutrophils % Seg Neuts % (Manual) Lymphocytes % (Manual) Monocytes % (Manual) Nucleated RBC % Seg Neutrophils # Seg Neutrophils # Man Lymphocytes # (Manual) Monocytes # (Manual) PT INR APTT Fibrinogen Heparin Anti-Xa Level 0.76 H POC ABG pH POC ABG pCO2 POC ABG pO2 POC Potassium POC Chloride Sodium Potassium Chloride Carbon Dioxide POC BUN BUN Creatinine Glucose POC Glucose 106 H Calcium Magnesium AST Alkaline Phosphatase Lactate Dehydrogenase Total Creatine Kinase Total Protein Albumin Urine WBC (Auto) Crossmatch 06/15/16 06/15/16 06/15/16 04:43 04:43 22:49 WBC RBC Hgb 9.2 L POC Hgb Hct 28.4 L POC Hct MCH MCHC RDW Plt Count Lymph % (Auto) [place] % (Auto) Lymph # [place] # Baso # Seg Neutrophils % Seg Neuts % (Manual) Lymphocytes % (Manual) Monocytes % (Manual) Nucleated RBC % Seg Neutrophils # Seg Neutrophils # Man Lymphocytes # (Manual) Monocytes # (Manual) PT INR APTT Fibrinogen Heparin Anti-Xa Level 0.85 H POC ABG pH POC ABG pCO2 POC ABG pO2 POC Potassium POC Chloride Sodium Potassium Chloride Carbon Dioxide POC BUN BUN Creatinine Glucose POC Glucose 134 H Calcium Magnesium AST Alkaline Phosphatase Lactate Dehydrogenase Total Creatine Kinase Total Protein Albumin Urine WBC (Auto) Crossmatch 06/16/16 06/16/16 06/16/16 08:55 08:55 14:21 WBC RBC Hgb POC Hgb 5.8 L Hct POC Hct 17 L MCH MCHC RDW Plt Count Lymph % (Auto) [place] % (Auto) Lymph # [place] # Baso # Seg Neutrophils % Seg Neuts % (Manual) Lymphocytes % (Manual) Monocytes % (Manual) Nucleated RBC % Seg Neutrophils # Seg Neutrophils # Man Lymphocytes # (Manual) Monocytes # (Manual) PT INR APTT 20.0 L Fibrinogen Heparin Anti-Xa Level POC ABG pH POC ABG pCO2 POC ABG pO2 POC Potassium 2.9 L POC Chloride Sodium Potassium Chloride Carbon Dioxide POC BUN 7 L BUN Creatinine Glucose POC Glucose 249 H Calcium Magnesium AST Alkaline Phosphatase Lactate Dehydrogenase Total Creatine Kinase Total Protein Albumin Urine WBC (Auto) Crossmatch See Detail 06/16/16 06/16/16 06/16/16 16:55 17:41 17:48 WBC RBC Hgb POC Hgb 8.8 L Hct POC Hct 26 L < 15 L MCH MCHC RDW Plt Count Lymph % (Auto) [place] % (Auto) Lymph # [place] # Baso # Seg Neutrophils % Seg Neuts % (Manual) Lymphocytes % (Manual) Monocytes % (Manual) Nucleated RBC % Seg Neutrophils # Seg Neutrophils # Man Lymphocytes # (Manual) Monocytes # (Manual) PT INR APTT Fibrinogen Heparin Anti-Xa Level POC ABG pH 7.031 L POC ABG pCO2 POC ABG pO2 475 H POC Potassium 3.2 L POC Chloride 112 H 114 H Sodium Potassium Chloride Carbon Dioxide POC BUN 7 L 7 L BUN Creatinine Glucose POC Glucose 203 H 291 H Calcium Magnesium AST Alkaline Phosphatase Lactate Dehydrogenase Total Creatine Kinase Total Protein Albumin Urine WBC (Auto) Crossmatch 06/16/16 06/16/16 06/16/16 18:07 19:09 20:10 WBC 15.8 H RBC Hgb POC Hgb 6.5 L Hct POC Hct 19 L MCH MCHC RDW Plt Count 38 L Lymph % (Auto) 5.9 L [place] % (Auto) 9.3 H Lymph # 0.9 L [place] # 1.5 H Baso # Seg Neutrophils % 84.6 H Seg Neuts % (Manual) Lymphocytes % (Manual) Monocytes % (Manual) Nucleated RBC % Seg Neutrophils # 13.3 H Seg Neutrophils # Man Lymphocytes # (Manual) Monocytes # (Manual) PT INR APTT Fibrinogen Heparin Anti-Xa Level POC ABG pH POC ABG pCO2 POC ABG pO2 POC Potassium POC Chloride 113 H Sodium Potassium Chloride Carbon Dioxide POC BUN 7 L BUN Creatinine Glucose POC Glucose 263 H 231 H Calcium Magnesium AST Alkaline Phosphatase Lactate Dehydrogenase Total Creatine Kinase Total Protein Albumin Urine WBC (Auto) Crossmatch 06/16/16 06/16/16 06/16/16 20:10 20:18 21:10 WBC RBC Hgb POC Hgb Hct POC Hct MCH MCHC RDW Plt Count Lymph % (Auto) [place] % (Auto) Lymph # [place] # Baso # Seg Neutrophils % Seg Neuts % (Manual) Lymphocytes % (Manual) Monocytes % (Manual) Nucleated RBC % Seg Neutrophils # Seg Neutrophils # Man Lymphocytes # (Manual) Monocytes # (Manual) PT INR APTT Fibrinogen Heparin Anti-Xa Level POC ABG pH 7.236 L 7.280 L POC ABG pCO2 POC ABG pO2 139 H 145 H POC Potassium POC Chloride Sodium Potassium 3.4 L Chloride 114.5 H Carbon Dioxide 17 L D POC BUN BUN Creatinine Glucose 188 H POC Glucose Calcium 6.1 L D Magnesium AST Alkaline Phosphatase Lactate Dehydrogenase Total Creatine Kinase Total Protein Albumin Urine WBC (Auto) Crossmatch 06/16/16 06/17/16 06/17/16 22:53 04:48 05:35 WBC RBC Hgb POC Hgb Hct POC Hct MCH MCHC RDW Plt Count Lymph % (Auto) [place] % (Auto) Lymph # [place] # Baso # Seg Neutrophils % Seg Neuts % (Manual) Lymphocytes % (Manual) Monocytes % (Manual) Nucleated RBC % Seg Neutrophils # Seg Neutrophils # Man Lymphocytes # (Manual) Monocytes # (Manual) PT INR APTT Fibrinogen Heparin Anti-Xa Level POC ABG pH POC ABG pCO2 33.9 L 22.2 L POC ABG pO2 152 H 154 H POC Potassium POC Chloride Sodium 150 H Potassium 3.4 L Chloride 114.2 H Carbon Dioxide 16 L POC BUN BUN Creatinine Glucose 221 H POC Glucose Calcium 7.6 L D Magnesium AST Alkaline Phosphatase Lactate Dehydrogenase Total Creatine Kinase Total Protein Albumin Urine WBC (Auto) Crossmatch 06/17/16 06/18/16 06/18/16 09:22 07:26 08:25 WBC 20.3 H RBC 3.41 L Hgb 9.9 L POC Hgb Hct 29.7 L POC Hct MCH MCHC RDW Plt Count Lymph % (Auto) [place] % (Auto) Lymph # [place] # Baso # Seg Neutrophils % Seg Neuts % (Manual) 81.0 H Lymphocytes % (Manual) 6.0 L Monocytes % (Manual) 12.0 H Nucleated RBC % Seg Neutrophils # Seg Neutrophils # Man 16.4 H Lymphocytes # (Manual) Monocytes # (Manual) 2.4 H PT INR APTT Fibrinogen Heparin Anti-Xa Level POC ABG pH POC ABG pCO2 POC ABG pO2 POC Potassium POC Chloride Sodium Potassium 3.1 L Chloride Carbon Dioxide POC BUN BUN Creatinine Glucose 136 H POC Glucose 141 H Calcium 7.5 L Magnesium AST Alkaline Phosphatase Lactate Dehydrogenase Total Creatine Kinase Total Protein Albumin Urine WBC (Auto) Crossmatch 06/18/16 06/18/16 06/18/16 08:25 11:09 19:40 WBC RBC Hgb 6.5 L D POC Hgb Hct 19.3 L* D POC Hct MCH MCHC RDW Plt Count 131 L Lymph % (Auto) [place] % (Auto) Lymph # [place] # Baso # Seg Neutrophils % Seg Neuts % (Manual) Lymphocytes % (Manual) Monocytes % (Manual) Nucleated RBC % Seg Neutrophils # Seg Neutrophils # Man Lymphocytes # (Manual) Monocytes # (Manual) PT INR APTT Fibrinogen Heparin Anti-Xa Level POC ABG pH 7.490 H POC ABG pCO2 POC ABG pO2 131 H POC Potassium POC Chloride Sodium Potassium Chloride Carbon Dioxide POC BUN BUN Creatinine Glucose POC Glucose 125 H Calcium Magnesium AST Alkaline Phosphatase Lactate Dehydrogenase Total Creatine Kinase Total Protein Albumin Urine WBC (Auto) Crossmatch 06/18/16 06/19/16 06/19/16 21:10 07:07 07:28 WBC 13.6 H RBC 2.17 L Hgb 6.5 L POC Hgb Hct 18.8 L* POC Hct MCH MCHC 35 H RDW Plt Count 131 L Lymph % (Auto) 10.1 L [place] % (Auto) 9.3 H Lymph # [place] # 1.3 H Baso # Seg Neutrophils % 79.7 H Seg Neuts % (Manual) Lymphocytes % (Manual) Monocytes % (Manual) Nucleated RBC % Seg Neutrophils # 10.8 H Seg Neutrophils # Man Lymphocytes # (Manual) Monocytes # (Manual) PT INR APTT Fibrinogen Heparin Anti-Xa Level 0.75 H POC ABG pH POC ABG pCO2 POC ABG pO2 POC Potassium POC Chloride Sodium Potassium 3.5 L Chloride Carbon Dioxide POC BUN BUN Creatinine Glucose 104 H POC Glucose Calcium 7.6 L Magnesium 1.4 L AST Alkaline Phosphatase Lactate Dehydrogenase Total Creatine Kinase Total Protein Albumin Urine WBC (Auto) Crossmatch 06/20/16 06/20/16 06/20/16 04:15 18:15 18:15 WBC 16.6 H RBC 1.19 L Hgb 9.2 L 3.5 L* D POC Hgb Hct 27.5 L D 11.0 L* D POC Hct MCH MCHC RDW Plt Count 138 L Lymph % (Auto) [place] % (Auto) Lymph # [place] # Baso # Seg Neutrophils % Seg Neuts % (Manual) Lymphocytes % (Manual) Monocytes % (Manual) Nucleated RBC % Seg Neutrophils # Seg Neutrophils # Man Lymphocytes # (Manual) Monocytes # (Manual) PT INR APTT Fibrinogen Heparin Anti-Xa Level POC ABG pH POC ABG pCO2 POC ABG pO2 POC Potassium POC Chloride Sodium 146 H Potassium Chloride Carbon Dioxide 14 L D POC BUN BUN Creatinine Glucose 31 L* POC Glucose Calcium 6.7 L Magnesium AST Alkaline Phosphatase Lactate Dehydrogenase Total Creatine Kinase Total Protein Albumin Urine WBC (Auto) Crossmatch 06/20/16 06/20/16 06/20/16 18:15 19:33 19:36 WBC RBC Hgb POC Hgb Hct POC Hct MCH MCHC RDW Plt Count Lymph % (Auto) [place] % (Auto) Lymph # [place] # Baso # Seg Neutrophils % Seg Neuts % (Manual) Lymphocytes % (Manual) Monocytes % (Manual) Nucleated RBC % Seg Neutrophils # Seg Neutrophils # Man Lymphocytes # (Manual) Monocytes # (Manual) PT INR APTT Fibrinogen Heparin Anti-Xa Level POC ABG pH POC ABG pCO2 26.3 L POC ABG pO2 394 H POC Potassium POC Chloride Sodium Potassium Chloride Carbon Dioxide POC BUN BUN Creatinine Glucose POC Glucose 212 H Calcium Magnesium AST Alkaline Phosphatase Lactate Dehydrogenase Total Creatine Kinase Total Protein Albumin Urine WBC (Auto) Crossmatch See Detail 06/20/16 06/20/16 06/21/16 22:01 23:00 00:35 WBC RBC Hgb POC Hgb Hct POC Hct MCH MCHC RDW Plt Count Lymph % (Auto) [place] % (Auto) Lymph # [place] # Baso # Seg Neutrophils % Seg Neuts % (Manual) Lymphocytes % (Manual) Monocytes % (Manual) Nucleated RBC % Seg Neutrophils # Seg Neutrophils # Man Lymphocytes # (Manual) Monocytes # (Manual) PT 21.3 H INR 1.85 H APTT 48.4 H Fibrinogen Heparin Anti-Xa Level POC ABG pH POC ABG pCO2 POC ABG pO2 POC Potassium POC Chloride Sodium Potassium Chloride Carbon Dioxide POC BUN BUN Creatinine Glucose POC Glucose 149 H 147 H Calcium Magnesium AST Alkaline Phosphatase Lactate Dehydrogenase Total Creatine Kinase Total Protein Albumin Urine WBC (Auto) Crossmatch 06/21/16 06/21/16 06/21/16 04:30 04:30 06:01 WBC 21.7 H RBC 3.58 L Hgb POC Hgb Hct POC Hct MCH MCHC 35 H RDW Plt Count 116 L Lymph % (Auto) [place] % (Auto) Lymph # [place] # Baso # Seg Neutrophils % Seg Neuts % (Manual) Lymphocytes % (Manual) 8.0 L Monocytes % (Manual) Nucleated RBC % 3.0 H Seg Neutrophils # Seg Neutrophils # Man 13.7 H Lymphocytes # (Manual) Monocytes # (Manual) 1.5 H PT INR APTT Fibrinogen Heparin Anti-Xa Level POC ABG pH 7.541 H POC ABG pCO2 21.1 L POC ABG pO2 108 H POC Potassium POC Chloride Sodium Potassium 3.0 L Chloride 110.3 H Carbon Dioxide 18 L POC BUN BUN 18 H Creatinine Glucose 141 H POC Glucose Calcium 6.4 L Magnesium AST Alkaline Phosphatase Lactate Dehydrogenase Total Creatine Kinase Total Protein Albumin Urine WBC (Auto) Crossmatch 06/21/16 06/21/16 06/21/16 07:00 10:02 17:51 WBC RBC Hgb 8.3 L POC Hgb Hct 24.7 L D POC Hct MCH MCHC RDW Plt Count Lymph % (Auto) [place] % (Auto) Lymph # [place] # Baso # Seg Neutrophils % Seg Neuts % (Manual) Lymphocytes % (Manual) Monocytes % (Manual) Nucleated RBC % Seg Neutrophils # Seg Neutrophils # Man Lymphocytes # (Manual) Monocytes # (Manual) PT INR APTT Fibrinogen Heparin Anti-Xa Level POC ABG pH POC ABG pCO2 POC ABG pO2 POC Potassium POC Chloride Sodium Potassium Chloride Carbon Dioxide POC BUN BUN Creatinine Glucose POC Glucose 132 H 106 H Calcium Magnesium AST Alkaline Phosphatase Lactate Dehydrogenase Total Creatine Kinase Total Protein Albumin Urine WBC (Auto) Crossmatch 06/22/16 06/22/16 06/22/16 05:00 05:00 06:40 WBC 20.6 H RBC 3.54 L Hgb POC Hgb Hct POC Hct MCH MCHC RDW Plt Count 129 L Lymph % (Auto) [place] % (Auto) Lymph # [place] # Baso # Seg Neutrophils % Seg Neuts % (Manual) 87.0 H Lymphocytes % (Manual) 4.0 L Monocytes % (Manual) Nucleated RBC % 4.0 H Seg Neutrophils # Seg Neutrophils # Man 17.9 H Lymphocytes # (Manual) 0.8 L Monocytes # (Manual) 1.2 H PT INR APTT Fibrinogen Heparin Anti-Xa Level POC ABG pH POC ABG pCO2 21.9 L POC ABG pO2 118 H POC Potassium POC Chloride Sodium Potassium Chloride 109.9 H Carbon Dioxide 15 L POC BUN BUN 26 H Creatinine 2.2 H D Glucose POC Glucose Calcium 6.3 L Magnesium AST Alkaline Phosphatase Lactate Dehydrogenase Total Creatine Kinase Total Protein Albumin Urine WBC (Auto) Crossmatch 06/22/16 06/22/16 06/22/16 09:15 09:15 23:17 WBC RBC Hgb 9.1 L POC Hgb Hct 26.9 L POC Hct MCH MCHC RDW Plt Count 116 L Lymph % (Auto) [place] % (Auto) Lymph # [place] # Baso # Seg Neutrophils % Seg Neuts % (Manual) Lymphocytes % (Manual) Monocytes % (Manual) Nucleated RBC % Seg Neutrophils # Seg Neutrophils # Man Lymphocytes # (Manual) Monocytes # (Manual) PT 15.8 H INR 1.27 H APTT Fibrinogen Heparin Anti-Xa Level POC ABG pH POC ABG pCO2 POC ABG pO2 POC Potassium POC Chloride Sodium Potassium Chloride Carbon Dioxide POC BUN BUN Creatinine Glucose POC Glucose 134 H Calcium Magnesium AST Alkaline Phosphatase Lactate Dehydrogenase Total Creatine Kinase Total Protein Albumin Urine WBC (Auto) Crossmatch 06/23/16 06/23/16 06/23/16 05:43 05:43 09:44 WBC 13.8 H RBC 2.70 L Hgb 8.1 L POC Hgb Hct 24.2 L POC Hct MCH MCHC RDW Plt Count 93 L Lymph % (Auto) 6.2 L [place] % (Auto) Lymph # 0.9 L [place] # Baso # Seg Neutrophils % 89.2 H Seg Neuts % (Manual) Lymphocytes % (Manual) Monocytes % (Manual) Nucleated RBC % Seg Neutrophils # 12.3 H Seg Neutrophils # Man Lymphocytes # (Manual) Monocytes # (Manual) PT INR APTT Fibrinogen Heparin Anti-Xa Level POC ABG pH 7.593 H POC ABG pCO2 26.8 L POC ABG pO2 141 H POC Potassium POC Chloride Sodium 146 H Potassium Chloride Carbon Dioxide POC BUN BUN 32 H Creatinine 2.6 H Glucose 142 H POC Glucose Calcium 7.0 L Magnesium AST Alkaline Phosphatase Lactate Dehydrogenase Total Creatine Kinase Total Protein Albumin Urine WBC (Auto) Crossmatch 06/23/16 06/23/16 06/23/16 11:23 17:42 23:32 WBC RBC Hgb POC Hgb Hct POC Hct MCH MCHC RDW Plt Count Lymph % (Auto) [place] % (Auto) Lymph # [place] # Baso # Seg Neutrophils % Seg Neuts % (Manual) Lymphocytes % (Manual) Monocytes % (Manual) Nucleated RBC % Seg Neutrophils # Seg Neutrophils # Man Lymphocytes # (Manual) Monocytes # (Manual) PT INR APTT Fibrinogen Heparin Anti-Xa Level POC ABG pH POC ABG pCO2 POC ABG pO2 POC Potassium POC Chloride Sodium Potassium Chloride Carbon Dioxide POC BUN BUN Creatinine Glucose POC Glucose 138 H 133 H 111 H Calcium Magnesium AST Alkaline Phosphatase Lactate Dehydrogenase Total Creatine Kinase Total Protein Albumin Urine WBC (Auto) Crossmatch 06/24/16 06/24/16 06/24/16 06:27 08:10 08:10 WBC 16.6 H RBC 2.91 L Hgb 8.9 L POC Hgb Hct 26.4 L POC Hct MCH MCHC RDW 15.6 H Plt Count 115 L Lymph % (Auto) 4.6 L [place] % (Auto) Lymph # 0.8 L [place] # 1.0 H Baso # Seg Neutrophils % 89.2 H Seg Neuts % (Manual) Lymphocytes % (Manual) Monocytes % (Manual) Nucleated RBC % Seg Neutrophils # 14.9 H Seg Neutrophils # Man Lymphocytes # (Manual) Monocytes # (Manual) PT INR APTT Fibrinogen Heparin Anti-Xa Level POC ABG pH POC ABG pCO2 POC ABG pO2 POC Potassium POC Chloride Sodium 146 H Potassium Chloride Carbon Dioxide POC BUN BUN 37 H Creatinine 2.9 H Glucose POC Glucose 109 H Calcium 7.5 L Magnesium AST Alkaline Phosphatase Lactate Dehydrogenase Total Creatine Kinase Total Protein Albumin Urine WBC (Auto) Crossmatch 06/24/16 06/24/16 06/24/16 12:05 17:57 22:13 WBC RBC Hgb POC Hgb Hct POC Hct MCH MCHC RDW Plt Count Lymph % (Auto) [place] % (Auto) Lymph # [place] # Baso # Seg Neutrophils % Seg Neuts % (Manual) Lymphocytes % (Manual) Monocytes % (Manual) Nucleated RBC % Seg Neutrophils # Seg Neutrophils # Man Lymphocytes # (Manual) Monocytes # (Manual) PT INR APTT Fibrinogen Heparin Anti-Xa Level POC ABG pH POC ABG pCO2 POC ABG pO2 POC Potassium POC Chloride Sodium Potassium Chloride Carbon Dioxide POC BUN BUN Creatinine Glucose POC Glucose 117 H 124 H 116 H Calcium Magnesium AST Alkaline Phosphatase Lactate Dehydrogenase Total Creatine Kinase Total Protein Albumin Urine WBC (Auto) Crossmatch 06/25/16 06/25/16 06/25/16 06:42 06:49 12:14 WBC RBC Hgb POC Hgb Hct POC Hct MCH MCHC RDW Plt Count Lymph % (Auto) [place] % (Auto) Lymph # [place] # Baso # Seg Neutrophils % Seg Neuts % (Manual) Lymphocytes % (Manual) Monocytes % (Manual) Nucleated RBC % Seg Neutrophils # Seg Neutrophils # Man Lymphocytes # (Manual) Monocytes # (Manual) PT INR APTT Fibrinogen Heparin Anti-Xa Level POC ABG pH POC ABG pCO2 POC ABG pO2 POC Potassium POC Chloride Sodium Potassium Chloride Carbon Dioxide POC BUN BUN 46 H Creatinine 3.6 H Glucose 133 H POC Glucose 137 H 136 H Calcium 7.4 L Magnesium AST Alkaline Phosphatase Lactate Dehydrogenase Total Creatine Kinase Total Protein Albumin Urine WBC (Auto) Crossmatch 06/25/16 06/25/16 06/26/16 16:07 21:32 05:55 WBC RBC Hgb POC Hgb Hct POC Hct MCH MCHC RDW Plt Count Lymph % (Auto) [place] % (Auto) Lymph # [place] # Baso # Seg Neutrophils % Seg Neuts % (Manual) Lymphocytes % (Manual) Monocytes % (Manual) Nucleated RBC % Seg Neutrophils # Seg Neutrophils # Man Lymphocytes # (Manual) Monocytes # (Manual) PT INR APTT Fibrinogen Heparin Anti-Xa Level POC ABG pH POC ABG pCO2 POC ABG pO2 POC Potassium POC Chloride Sodium Potassium Chloride Carbon Dioxide 20 L POC BUN BUN 55 H Creatinine 4.2 H Glucose 120 H POC Glucose 146 H 146 H Calcium 7.5 L Magnesium AST Alkaline Phosphatase Lactate Dehydrogenase Total Creatine Kinase Total Protein Albumin Urine WBC (Auto) Crossmatch 06/26/16 06/26/16 06/26/16 06:30 11:38 16:45 WBC RBC Hgb POC Hgb Hct POC Hct MCH MCHC RDW Plt Count Lymph % (Auto) [place] % (Auto) Lymph # [place] # Baso # Seg Neutrophils % Seg Neuts % (Manual) Lymphocytes % (Manual) Monocytes % (Manual) Nucleated RBC % Seg Neutrophils # Seg Neutrophils # Man Lymphocytes # (Manual) Monocytes # (Manual) PT INR APTT Fibrinogen Heparin Anti-Xa Level POC ABG pH POC ABG pCO2 POC ABG pO2 POC Potassium POC Chloride Sodium Potassium Chloride Carbon Dioxide POC BUN BUN Creatinine Glucose POC Glucose 128 H 143 H 121 H Calcium Magnesium AST Alkaline Phosphatase Lactate Dehydrogenase Total Creatine Kinase Total Protein Albumin Urine WBC (Auto) Crossmatch 06/26/16 06/26/16 06/27/16 22:57 22:57 00:47 WBC RBC Hgb 8.4 L POC Hgb Hct 25.1 L POC Hct MCH MCHC RDW Plt Count Lymph % (Auto) [place] % (Auto) Lymph # [place] # Baso # Seg Neutrophils % Seg Neuts % (Manual) Lymphocytes % (Manual) Monocytes % (Manual) Nucleated RBC % Seg Neutrophils # Seg Neutrophils # Man Lymphocytes # (Manual) Monocytes # (Manual) PT 19.9 H INR 1.69 H APTT Fibrinogen Heparin Anti-Xa Level POC ABG pH POC ABG pCO2 POC ABG pO2 POC Potassium POC Chloride Sodium Potassium Chloride Carbon Dioxide POC BUN BUN Creatinine Glucose POC Glucose 110 H Calcium Magnesium AST Alkaline Phosphatase Lactate Dehydrogenase Total Creatine Kinase Total Protein Albumin Urine WBC (Auto) Crossmatch 06/27/16 06/27/16 06/27/16 05:43 05:43 06:40 WBC RBC Hgb POC Hgb Hct POC Hct MCH MCHC RDW Plt Count Lymph % (Auto) [place] % (Auto) Lymph # [place] # Baso # Seg Neutrophils % Seg Neuts % (Manual) Lymphocytes % (Manual) Monocytes % (Manual) Nucleated RBC % Seg Neutrophils # Seg Neutrophils # Man Lymphocytes # (Manual) Monocytes # (Manual) PT INR APTT Fibrinogen Heparin Anti-Xa Level 2.00 H POC ABG pH POC ABG pCO2 POC ABG pO2 POC Potassium POC Chloride Sodium Potassium Chloride Carbon Dioxide 20 L POC BUN BUN 58 H Creatinine 4.8 H Glucose POC Glucose 109 H Calcium 8.1 L Magnesium AST Alkaline Phosphatase Lactate Dehydrogenase Total Creatine Kinase Total Protein Albumin Urine WBC (Auto) Crossmatch 06/27/16 06/27/16 06/27/16 08:15 16:46 17:47 WBC RBC Hgb POC Hgb Hct POC Hct MCH MCHC RDW Plt Count Lymph % (Auto) [place] % (Auto) Lymph # [place] # Baso # Seg Neutrophils % Seg Neuts % (Manual) Lymphocytes % (Manual) Monocytes % (Manual) Nucleated RBC % Seg Neutrophils # Seg Neutrophils # Man Lymphocytes # (Manual) Monocytes # (Manual) PT INR APTT Fibrinogen Heparin Anti-Xa Level > 2.00 H 1.87 H POC ABG pH POC ABG pCO2 POC ABG pO2 POC Potassium POC Chloride Sodium Potassium Chloride Carbon Dioxide POC BUN BUN Creatinine Glucose POC Glucose 231 H Calcium Magnesium AST Alkaline Phosphatase Lactate Dehydrogenase Total Creatine Kinase Total Protein Albumin Urine WBC (Auto) Crossmatch 06/27/16 06/27/16 06/28/16 21:23 23:54 06:27 WBC RBC Hgb POC Hgb Hct POC Hct MCH MCHC RDW Plt Count Lymph % (Auto) [place] % (Auto) Lymph # [place] # Baso # Seg Neutrophils % Seg Neuts % (Manual) Lymphocytes % (Manual) Monocytes % (Manual) Nucleated RBC % Seg Neutrophils # Seg Neutrophils # Man Lymphocytes # (Manual) Monocytes # (Manual) PT INR APTT Fibrinogen Heparin Anti-Xa Level 1.70 H POC ABG pH POC ABG pCO2 POC ABG pO2 POC Potassium POC Chloride Sodium Potassium Chloride Carbon Dioxide POC BUN BUN 62 H Creatinine 4.5 H Glucose 111 H POC Glucose 122 H Calcium 8.3 L Magnesium AST Alkaline Phosphatase Lactate Dehydrogenase Total Creatine Kinase Total Protein Albumin Urine WBC (Auto) Crossmatch 06/28/16 06/28/16 06/28/16 06:27 11:47 14:14 WBC RBC Hgb 7.7 L POC Hgb Hct 22.9 L POC Hct MCH MCHC RDW Plt Count Lymph % (Auto) [place] % (Auto) Lymph # [place] # Baso # Seg Neutrophils % Seg Neuts % (Manual) Lymphocytes % (Manual) Monocytes % (Manual) Nucleated RBC % Seg Neutrophils # Seg Neutrophils # Man Lymphocytes # (Manual) Monocytes # (Manual) PT INR APTT Fibrinogen Heparin Anti-Xa Level POC ABG pH 7.461 H POC ABG pCO2 31.9 L POC ABG pO2 73 L POC Potassium POC Chloride Sodium Potassium Chloride Carbon Dioxide POC BUN BUN Creatinine Glucose POC Glucose 155 H Calcium Magnesium AST Alkaline Phosphatase Lactate Dehydrogenase Total Creatine Kinase Total Protein Albumin Urine WBC (Auto) Crossmatch 06/28/16 06/28/16 06/28/16 16:27 20:47 22:59 WBC RBC Hgb POC Hgb Hct POC Hct MCH MCHC RDW Plt Count Lymph % (Auto) [place] % (Auto) Lymph # [place] # Baso # Seg Neutrophils % Seg Neuts % (Manual) Lymphocytes % (Manual) Monocytes % (Manual) Nucleated RBC % Seg Neutrophils # Seg Neutrophils # Man Lymphocytes # (Manual) Monocytes # (Manual) PT INR APTT Fibrinogen Heparin Anti-Xa Level 1.16 H POC ABG pH POC ABG pCO2 POC ABG pO2 POC Potassium POC Chloride Sodium Potassium Chloride Carbon Dioxide POC BUN BUN Creatinine Glucose POC Glucose 193 H 126 H Calcium Magnesium AST Alkaline Phosphatase Lactate Dehydrogenase Total Creatine Kinase Total Protein Albumin Urine WBC (Auto) Crossmatch 06/29/16 06/29/16 06/29/16 05:51 09:10 09:10 WBC RBC Hgb POC Hgb Hct POC Hct MCH MCHC RDW Plt Count Lymph % (Auto) [place] % (Auto) Lymph # [place] # Baso # Seg Neutrophils % Seg Neuts % (Manual) Lymphocytes % (Manual) Monocytes % (Manual) Nucleated RBC % Seg Neutrophils # Seg Neutrophils # Man Lymphocytes # (Manual) Monocytes # (Manual) PT INR APTT Fibrinogen Heparin Anti-Xa Level 0.92 H POC ABG pH POC ABG pCO2 POC ABG pO2 POC Potassium POC Chloride Sodium Potassium Chloride Carbon Dioxide POC BUN BUN 53 H Creatinine 3.7 H Glucose 139 H POC Glucose 121 H Calcium 8.2 L Magnesium AST Alkaline Phosphatase Lactate Dehydrogenase Total Creatine Kinase Total Protein Albumin Urine WBC (Auto) Crossmatch 06/29/16 06/30/16 06/30/16 21:22 05:09 08:07 WBC RBC Hgb 7.3 L POC Hgb Hct 21.9 L POC Hct MCH MCHC RDW Plt Count Lymph % (Auto) [place] % (Auto) Lymph # [place] # Baso # Seg Neutrophils % Seg Neuts % (Manual) Lymphocytes % (Manual) Monocytes % (Manual) Nucleated RBC % Seg Neutrophils # Seg Neutrophils # Man Lymphocytes # (Manual) Monocytes # (Manual) PT INR APTT Fibrinogen Heparin Anti-Xa Level POC ABG pH POC ABG pCO2 POC ABG pO2 POC Potassium POC Chloride Sodium Potassium Chloride Carbon Dioxide POC BUN BUN Creatinine Glucose POC Glucose 108 H 106 H Calcium Magnesium AST Alkaline Phosphatase Lactate Dehydrogenase Total Creatine Kinase Total Protein Albumin Urine WBC (Auto) Crossmatch 06/30/16 06/30/16 06/30/16 10:48 12:13 16:48 WBC RBC Hgb POC Hgb Hct POC Hct MCH MCHC RDW Plt Count Lymph % (Auto) [place] % (Auto) Lymph # [place] # Baso # Seg Neutrophils % Seg Neuts % (Manual) Lymphocytes % (Manual) Monocytes % (Manual) Nucleated RBC % Seg Neutrophils # Seg Neutrophils # Man Lymphocytes # (Manual) Monocytes # (Manual) PT INR APTT Fibrinogen Heparin Anti-Xa Level POC ABG pH POC ABG pCO2 POC ABG pO2 POC Potassium POC Chloride Sodium Potassium Chloride Carbon Dioxide POC BUN BUN 46 H Creatinine 3.0 H Glucose POC Glucose 153 H 152 H Calcium Magnesium AST Alkaline Phosphatase Lactate Dehydrogenase Total Creatine Kinase Total Protein Albumin Urine WBC (Auto) Crossmatch 06/30/16 07/01/16 07/01/16 21:47 05:47 07:44 WBC 19.8 H RBC 2.45 L Hgb 7.2 L POC Hgb Hct 22.2 L POC Hct MCH MCHC RDW Plt Count 481 H Lymph % (Auto) 5.5 L [place] % (Auto) Lymph # 1.1 L [place] # 1.4 H Baso # Seg Neutrophils % 86.8 H Seg Neuts % (Manual) Lymphocytes % (Manual) Monocytes % (Manual) Nucleated RBC % Seg Neutrophils # 17.1 H Seg Neutrophils # Man Lymphocytes # (Manual) Monocytes # (Manual) PT INR APTT Fibrinogen Heparin Anti-Xa Level POC ABG pH POC ABG pCO2 POC ABG pO2 POC Potassium POC Chloride Sodium Potassium Chloride Carbon Dioxide POC BUN BUN Creatinine Glucose POC Glucose 162 H 124 H Calcium Magnesium AST Alkaline Phosphatase Lactate Dehydrogenase Total Creatine Kinase Total Protein Albumin Urine WBC (Auto) Crossmatch 07/01/16 07/01/16 07/01/16 07:44 11:55 16:16 WBC RBC Hgb POC Hgb Hct POC Hct MCH MCHC RDW Plt Count Lymph % (Auto) [place] % (Auto) Lymph # [place] # Baso # Seg Neutrophils % Seg Neuts % (Manual) Lymphocytes % (Manual) Monocytes % (Manual) Nucleated RBC % Seg Neutrophils # Seg Neutrophils # Man Lymphocytes # (Manual) Monocytes # (Manual) PT INR APTT Fibrinogen Heparin Anti-Xa Level POC ABG pH POC ABG pCO2 POC ABG pO2 POC Potassium POC Chloride Sodium Potassium 3.1 L Chloride Carbon Dioxide POC BUN BUN 38 H Creatinine 2.2 H Glucose 114 H POC Glucose 114 H 143 H Calcium Magnesium AST Alkaline Phosphatase Lactate Dehydrogenase Total Creatine Kinase Total Protein Albumin Urine WBC (Auto) Crossmatch 07/01/16 07/02/16 07/02/16 21:42 05:40 06:46 WBC 18.1 H RBC 2.45 L Hgb 7.3 L POC Hgb Hct 21.8 L POC Hct MCH MCHC RDW Plt Count 490 H Lymph % (Auto) 6.1 L [place] % (Auto) Lymph # 1.1 L [place] # 1.1 H Baso # 0.2 H Seg Neutrophils % 86.0 H Seg Neuts % (Manual) Lymphocytes % (Manual) Monocytes % (Manual) Nucleated RBC % Seg Neutrophils # 15.6 H Seg Neutrophils # Man Lymphocytes # (Manual) Monocytes # (Manual) PT INR APTT Fibrinogen Heparin Anti-Xa Level POC ABG pH POC ABG pCO2 POC ABG pO2 POC Potassium POC Chloride Sodium Potassium Chloride Carbon Dioxide POC BUN BUN Creatinine Glucose POC Glucose 135 H 135 H Calcium Magnesium AST Alkaline Phosphatase Lactate Dehydrogenase Total Creatine Kinase Total Protein Albumin Urine WBC (Auto) Crossmatch 07/02/16 07/02/16 07/02/16 06:46 06:49 11:23 WBC RBC Hgb POC Hgb Hct POC Hct MCH MCHC RDW Plt Count Lymph % (Auto) [place] % (Auto) Lymph # [place] # Baso # Seg Neutrophils % Seg Neuts % (Manual) Lymphocytes % (Manual) Monocytes % (Manual) Nucleated RBC % Seg Neutrophils # Seg Neutrophils # Man Lymphocytes # (Manual) Monocytes # (Manual) PT INR APTT Fibrinogen Heparin Anti-Xa Level POC ABG pH POC ABG pCO2 POC ABG pO2 POC Potassium POC Chloride Sodium Potassium 2.8 L* Chloride Carbon Dioxide POC BUN BUN 30 H Creatinine 1.8 H Glucose 121 H POC Glucose 121 H Calcium 8.1 L Magnesium 1.3 L AST Alkaline Phosphatase Lactate Dehydrogenase Total Creatine Kinase Total Protein Albumin Urine WBC (Auto) Crossmatch 07/02/16 07/02/16 07/03/16 17:02 21:31 05:35 WBC RBC Hgb POC Hgb Hct POC Hct MCH MCHC RDW Plt Count Lymph % (Auto) [place] % (Auto) Lymph # [place] # Baso # Seg Neutrophils % Seg Neuts % (Manual) Lymphocytes % (Manual) Monocytes % (Manual) Nucleated RBC % Seg Neutrophils # Seg Neutrophils # Man Lymphocytes # (Manual) Monocytes # (Manual) PT INR APTT Fibrinogen Heparin Anti-Xa Level POC ABG pH POC ABG pCO2 POC ABG pO2 POC Potassium POC Chloride Sodium Potassium Chloride Carbon Dioxide POC BUN BUN Creatinine Glucose POC Glucose 121 H 159 H 149 H Calcium Magnesium AST Alkaline Phosphatase Lactate Dehydrogenase Total Creatine Kinase Total Protein Albumin Urine WBC (Auto) Crossmatch 07/03/16 07/03/16 07/03/16 06:45 06:45 06:45 WBC 16.8 H RBC 2.21 L Hgb 6.5 L POC Hgb Hct 19.4 L* POC Hct MCH MCHC RDW Plt Count 503 H Lymph % (Auto) 6.4 L [place] % (Auto) Lymph # 1.1 L [place] # 1.1 H Baso # Seg Neutrophils % 85.6 H Seg Neuts % (Manual) Lymphocytes % (Manual) Monocytes % (Manual) Nucleated RBC % Seg Neutrophils # 14.4 H Seg Neutrophils # Man Lymphocytes # (Manual) Monocytes # (Manual) PT INR APTT Fibrinogen Heparin Anti-Xa Level POC ABG pH POC ABG pCO2 POC ABG pO2 POC Potassium POC Chloride Sodium Potassium 2.9 L* Chloride Carbon Dioxide POC BUN BUN 21 H Creatinine 1.6 H Glucose 126 H POC Glucose Calcium 8.0 L Magnesium 1.6 L AST Alkaline Phosphatase Lactate Dehydrogenase Total Creatine Kinase Total Protein Albumin Urine WBC (Auto) Crossmatch 07/03/16 07/03/16 07/03/16 12:54 19:00 20:01 WBC RBC Hgb POC Hgb Hct POC Hct MCH MCHC RDW Plt Count Lymph % (Auto) [place] % (Auto) Lymph # [place] # Baso # Seg Neutrophils % Seg Neuts % (Manual) Lymphocytes % (Manual) Monocytes % (Manual) Nucleated RBC % Seg Neutrophils # Seg Neutrophils # Man Lymphocytes # (Manual) Monocytes # (Manual) PT INR APTT Fibrinogen Heparin Anti-Xa Level POC ABG pH 7.302 L POC ABG pCO2 49.8 H POC ABG pO2 422 H POC Potassium POC Chloride Sodium Potassium Chloride Carbon Dioxide POC BUN BUN Creatinine Glucose POC Glucose 129 H Calcium Magnesium AST Alkaline Phosphatase Lactate Dehydrogenase Total Creatine Kinase Total Protein Albumin Urine WBC (Auto) Crossmatch See Detail 1207/04/16 07/04/16 23:09 04:30 04:30 WBC 19.6 H RBC 3.21 L Hgb 9.4 L POC Hgb Hct 28.2 L POC Hct MCH MCHC RDW Plt Count Lymph % (Auto) 6.5 L [place] % (Auto) Lymph # [place] # 1.2 H Baso # Seg Neutrophils % 86.4 H Seg Neuts % (Manual) Lymphocytes % (Manual) Monocytes % (Manual) Nucleated RBC % Seg Neutrophils # 16.9 H Seg Neutrophils # Man Lymphocytes # (Manual) Monocytes # (Manual) PT INR APTT Fibrinogen Heparin Anti-Xa Level POC ABG pH POC ABG pCO2 POC ABG pO2 POC Potassium POC Chloride Sodium Potassium 3.5 L D Chloride 111.2 H Carbon Dioxide 20 L POC BUN BUN 18 H Creatinine Glucose POC Glucose 111 H Calcium 7.0 L Magnesium AST Alkaline Phosphatase Lactate Dehydrogenase Total Creatine Kinase Total Protein Albumin Urine WBC (Auto) Crossmatch 07/04/16 07/04/16 07/04/16 05:44 12:50 14:33 WBC RBC Hgb POC Hgb Hct POC Hct MCH MCHC RDW Plt Count Lymph % (Auto) [place] % (Auto) Lymph # [place] # Baso # Seg Neutrophils % Seg Neuts % (Manual) Lymphocytes % (Manual) Monocytes % (Manual) Nucleated RBC % Seg Neutrophils # Seg Neutrophils # Man Lymphocytes # (Manual) Monocytes # (Manual) PT INR APTT Fibrinogen Heparin Anti-Xa Level POC ABG pH 7.465 H 7.468 H POC ABG pCO2 29.5 L 29.1 L 33.1 L POC ABG pO2 110 H 39 L POC Potassium POC Chloride Sodium Potassium Chloride Carbon Dioxide POC BUN BUN Creatinine Glucose POC Glucose Calcium Magnesium AST Alkaline Phosphatase Lactate Dehydrogenase Total Creatine Kinase Total Protein Albumin Urine WBC (Auto) Crossmatch 07/04/16 07/05/16 07/05/16 16:49 00:20 04:19 WBC 16.2 H RBC 3.44 L Hgb POC Hgb Hct POC Hct MCH MCHC RDW Plt Count Lymph % (Auto) 5.2 L [place] % (Auto) 7.5 H Lymph # 0.8 L [place] # 1.2 H Baso # Seg Neutrophils % 86.5 H Seg Neuts % (Manual) Lymphocytes % (Manual) Monocytes % (Manual) Nucleated RBC % Seg Neutrophils # 14.0 H Seg Neutrophils # Man Lymphocytes # (Manual) Monocytes # (Manual) PT INR APTT Fibrinogen Heparin Anti-Xa Level POC ABG pH POC ABG pCO2 31.1 L POC ABG pO2 110 H POC Potassium POC Chloride Sodium Potassium Chloride Carbon Dioxide POC BUN BUN Creatinine Glucose POC Glucose 168 H Calcium Magnesium AST Alkaline Phosphatase Lactate Dehydrogenase Total Creatine Kinase Total Protein Albumin Urine WBC (Auto) Crossmatch 07/05/16 07/05/16 07/05/16 04:19 06:01 09:54 WBC RBC Hgb POC Hgb Hct POC Hct MCH MCHC RDW Plt Count Lymph % (Auto) [place] % (Auto) Lymph # [place] # Baso # Seg Neutrophils % Seg Neuts % (Manual) Lymphocytes % (Manual) Monocytes % (Manual) Nucleated RBC % Seg Neutrophils # Seg Neutrophils # Man Lymphocytes # (Manual) Monocytes # (Manual) PT INR APTT Fibrinogen Heparin Anti-Xa Level POC ABG pH POC ABG pCO2 POC ABG pO2 POC Potassium POC Chloride Sodium 146 H Potassium 3.5 L Chloride 109.1 H Carbon Dioxide POC BUN BUN Creatinine Glucose 135 H POC Glucose 146 H 284 H Calcium 7.8 L Magnesium AST Alkaline Phosphatase Lactate Dehydrogenase Total Creatine Kinase Total Protein Albumin Urine WBC (Auto) Crossmatch 07/05/16 07/06/16 07/06/16 13:35 04:40 04:40 WBC 17.7 H RBC 3.32 L Hgb 9.8 L POC Hgb Hct 29.8 L POC Hct MCH MCHC RDW Plt Count Lymph % (Auto) [place] % (Auto) Lymph # [place] # Baso # Seg Neutrophils % Seg Neuts % (Manual) 85.0 H Lymphocytes % (Manual) 4.0 L Monocytes % (Manual) 10.0 H Nucleated RBC % Seg Neutrophils # Seg Neutrophils # Man 15.0 H Lymphocytes # (Manual) 0.7 L Monocytes # (Manual) 1.8 H PT INR APTT Fibrinogen Heparin Anti-Xa Level POC ABG pH POC ABG pCO2 POC ABG pO2 POC Potassium POC Chloride Sodium Potassium 3.5 L Chloride Carbon Dioxide 21 L POC BUN BUN Creatinine Glucose 108 H POC Glucose 130 H Calcium 7.8 L Magnesium AST Alkaline Phosphatase Lactate Dehydrogenase Total Creatine Kinase Total Protein Albumin Urine WBC (Auto) Crossmatch 07/06/16 07/06/16 07/06/16 07:46 11:49 15:31 WBC RBC Hgb POC Hgb Hct POC Hct MCH MCHC RDW Plt Count Lymph % (Auto) [place] % (Auto) Lymph # [place] # Baso # Seg Neutrophils % Seg Neuts % (Manual) Lymphocytes % (Manual) Monocytes % (Manual) Nucleated RBC % Seg Neutrophils # Seg Neutrophils # Man Lymphocytes # (Manual) Monocytes # (Manual) PT INR APTT Fibrinogen Heparin Anti-Xa Level POC ABG pH POC ABG pCO2 POC ABG pO2 POC Potassium POC Chloride Sodium Potassium Chloride Carbon Dioxide POC BUN BUN Creatinine Glucose POC Glucose 149 H 146 H 135 H Calcium Magnesium AST Alkaline Phosphatase Lactate Dehydrogenase Total Creatine Kinase Total Protein Albumin Urine WBC (Auto) Crossmatch 07/06/16 07/06/16 07/07/16 17:17 20:59 04:53 WBC 15.5 H RBC 3.55 L Hgb POC Hgb Hct POC Hct MCH MCHC RDW Plt Count Lymph % (Auto) 4.9 L [place] % (Auto) Lymph # 0.8 L [place] # 0.9 H Baso # Seg Neutrophils % 87.9 H Seg Neuts % (Manual) Lymphocytes % (Manual) Monocytes % (Manual) Nucleated RBC % Seg Neutrophils # 13.7 H Seg Neutrophils # Man Lymphocytes # (Manual) Monocytes # (Manual) PT INR APTT Fibrinogen Heparin Anti-Xa Level POC ABG pH POC ABG pCO2 POC ABG pO2 POC Potassium POC Chloride Sodium Potassium Chloride Carbon Dioxide POC BUN BUN Creatinine Glucose POC Glucose 140 H Calcium Magnesium AST Alkaline Phosphatase Lactate Dehydrogenase Total Creatine Kinase Total Protein Albumin Urine WBC (Auto) 67.0 H Crossmatch 07/07/16 07/07/16 07/07/16 04:53 06:13 07:15 WBC RBC Hgb POC Hgb Hct POC Hct MCH MCHC RDW Plt Count Lymph % (Auto) [place] % (Auto) Lymph # [place] # Baso # Seg Neutrophils % Seg Neuts % (Manual) Lymphocytes % (Manual) Monocytes % (Manual) Nucleated RBC % Seg Neutrophils # Seg Neutrophils # Man Lymphocytes # (Manual) Monocytes # (Manual) PT INR APTT Fibrinogen Heparin Anti-Xa Level POC ABG pH POC ABG pCO2 POC ABG pO2 POC Potassium POC Chloride Sodium Potassium 3.4 L Chloride Carbon Dioxide POC BUN BUN Creatinine Glucose 104 H POC Glucose 122 H 134 H Calcium 8.0 L Magnesium AST Alkaline Phosphatase Lactate Dehydrogenase Total Creatine Kinase Total Protein Albumin Urine WBC (Auto) Crossmatch 12/07/07/16 07/07/16 08:06 08:06 10:31 WBC RBC Hgb POC Hgb Hct POC Hct MCH MCHC RDW Plt Count Lymph % (Auto) [place] % (Auto) Lymph # [place] # Baso # Seg Neutrophils % Seg Neuts % (Manual) Lymphocytes % (Manual) Monocytes % (Manual) Nucleated RBC % Seg Neutrophils # Seg Neutrophils # Man Lymphocytes # (Manual) Monocytes # (Manual) PT INR APTT Fibrinogen Heparin Anti-Xa Level POC ABG pH POC ABG pCO2 POC ABG pO2 POC Potassium POC Chloride Sodium Potassium Chloride Carbon Dioxide POC BUN BUN Creatinine Glucose 111 H POC Glucose 145 H Calcium 7.9 L Magnesium AST 53 H Alkaline Phosphatase 164 H Lactate Dehydrogenase Total Creatine Kinase Total Protein 6.2 L Albumin 1.4 L Urine WBC (Auto) Crossmatch See Detail 07/07/16 07/07/16 07/07/16 12:08 13:57 16:44 WBC RBC Hgb 9.7 L POC Hgb Hct 30.1 L POC Hct MCH MCHC RDW Plt Count Lymph % (Auto) [place] % (Auto) Lymph # [place] # Baso # Seg Neutrophils % Seg Neuts % (Manual) Lymphocytes % (Manual) Monocytes % (Manual) Nucleated RBC % Seg Neutrophils # Seg Neutrophils # Man Lymphocytes # (Manual) Monocytes # (Manual) PT INR APTT Fibrinogen Heparin Anti-Xa Level POC ABG pH POC ABG pCO2 POC ABG pO2 POC Potassium POC Chloride Sodium Potassium Chloride Carbon Dioxide POC BUN BUN Creatinine Glucose POC Glucose 159 H 173 H Calcium Magnesium AST Alkaline Phosphatase Lactate Dehydrogenase Total Creatine Kinase Total Protein Albumin Urine WBC (Auto) Crossmatch 07/07/16 07/08/16 07/08/16 23:31 07:27 12:16 WBC RBC Hgb POC Hgb Hct POC Hct MCH MCHC RDW Plt Count Lymph % (Auto) [place] % (Auto) Lymph # [place] # Baso # Seg Neutrophils % Seg Neuts % (Manual) Lymphocytes % (Manual) Monocytes % (Manual) Nucleated RBC % Seg Neutrophils # Seg Neutrophils # Man Lymphocytes # (Manual) Monocytes # (Manual) PT INR APTT Fibrinogen Heparin Anti-Xa Level POC ABG pH POC ABG pCO2 POC ABG pO2 POC Potassium POC Chloride Sodium Potassium Chloride Carbon Dioxide POC BUN BUN Creatinine Glucose POC Glucose 163 H 149 H 150 H Calcium Magnesium AST Alkaline Phosphatase Lactate Dehydrogenase Total Creatine Kinase Total Protein Albumin Urine WBC (Auto) Crossmatch 07/08/16 07/08/16 07/08/16 12:50 16:46 21:45 WBC RBC Hgb POC Hgb Hct POC Hct MCH MCHC RDW Plt Count Lymph % (Auto) [place] % (Auto) Lymph # [place] # Baso # Seg Neutrophils % Seg Neuts % (Manual) Lymphocytes % (Manual) Monocytes % (Manual) Nucleated RBC % Seg Neutrophils # Seg Neutrophils # Man Lymphocytes # (Manual) Monocytes # (Manual) PT INR APTT Fibrinogen Heparin Anti-Xa Level POC ABG pH POC ABG pCO2 POC ABG pO2 POC Potassium POC Chloride Sodium Potassium Chloride Carbon Dioxide 21 L POC BUN BUN Creatinine Glucose 126 H POC Glucose 143 H 134 H Calcium 7.5 L Magnesium AST Alkaline Phosphatase Lactate Dehydrogenase Total Creatine Kinase Total Protein Albumin Urine WBC (Auto) Crossmatch 07/09/16 07/09/16 07/09/16 07:31 07:31 08:07 WBC RBC Hgb POC Hgb Hct POC Hct MCH MCHC RDW Plt Count Lymph % (Auto) [place] % (Auto) Lymph # [place] # Baso # Seg Neutrophils % Seg Neuts % (Manual) Lymphocytes % (Manual) Monocytes % (Manual) Nucleated RBC % Seg Neutrophils # Seg Neutrophils # Man Lymphocytes # (Manual) Monocytes # (Manual) PT INR APTT Fibrinogen Heparin Anti-Xa Level POC ABG pH POC ABG pCO2 POC ABG pO2 POC Potassium POC Chloride Sodium Potassium Chloride Carbon Dioxide POC BUN BUN Creatinine Glucose 117 H POC Glucose 132 H Calcium 7.5 L Magnesium AST Alkaline Phosphatase 136 H Lactate Dehydrogenase 285 H Total Creatine Kinase 297 H Total Protein 5.4 L Albumin 1.5 L Urine WBC (Auto) Crossmatch 07/09/16 07/09/16 07/09/16 09:55 11:10 16:26 WBC 13.4 H RBC 1.95 L Hgb 5.8 L* D POC Hgb Hct 17.7 L* D POC Hct MCH MCHC RDW 15.5 H Plt Count Lymph % (Auto) 9.4 L [place] % (Auto) 8.3 H Lymph # [place] # 1.1 H Baso # Seg Neutrophils % 81.2 H Seg Neuts % (Manual) Lymphocytes % (Manual) Monocytes % (Manual) Nucleated RBC % Seg Neutrophils # 10.9 H Seg Neutrophils # Man Lymphocytes # (Manual) Monocytes # (Manual) PT INR APTT Fibrinogen Heparin Anti-Xa Level POC ABG pH POC ABG pCO2 POC ABG pO2 POC Potassium POC Chloride Sodium Potassium Chloride Carbon Dioxide POC BUN BUN Creatinine Glucose POC Glucose 240 H 113 H Calcium Magnesium AST Alkaline Phosphatase Lactate Dehydrogenase Total Creatine Kinase Total Protein Albumin Urine WBC (Auto) Crossmatch 07/09/16 07/10/16 07/10/16 21:45 04:10 09:03 WBC 15.1 H RBC 3.00 L Hgb 8.8 L D POC Hgb Hct 26.2 L D POC Hct MCH MCHC RDW 15.4 H Plt Count Lymph % (Auto) 8.4 L [place] % (Auto) 8.4 H Lymph # [place] # 1.3 H Baso # Seg Neutrophils % 82.5 H Seg Neuts % (Manual) Lymphocytes % (Manual) Monocytes % (Manual) Nucleated RBC % Seg Neutrophils # 12.5 H Seg Neutrophils # Man Lymphocytes # (Manual) Monocytes # (Manual) PT INR APTT Fibrinogen Heparin Anti-Xa Level POC ABG pH POC ABG pCO2 POC ABG pO2 POC Potassium POC Chloride Sodium Potassium Chloride Carbon Dioxide POC BUN BUN Creatinine Glucose POC Glucose 113 H 122 H Calcium Magnesium AST Alkaline Phosphatase Lactate Dehydrogenase Total Creatine Kinase Total Protein Albumin Urine WBC (Auto) Crossmatch 07/10/16 07/10/16 07/10/16 11:38 15:36 21:45 WBC RBC Hgb POC Hgb Hct POC Hct MCH MCHC RDW Plt Count Lymph % (Auto) [place] % (Auto) Lymph # [place] # Baso # Seg Neutrophils % Seg Neuts % (Manual) Lymphocytes % (Manual) Monocytes % (Manual) Nucleated RBC % Seg Neutrophils # Seg Neutrophils # Man Lymphocytes # (Manual) Monocytes # (Manual) PT INR APTT Fibrinogen Heparin Anti-Xa Level POC ABG pH POC ABG pCO2 POC ABG pO2 POC Potassium POC Chloride Sodium Potassium Chloride Carbon Dioxide POC BUN BUN Creatinine Glucose POC Glucose 146 H 131 H 141 H Calcium Magnesium AST Alkaline Phosphatase Lactate Dehydrogenase Total Creatine Kinase Total Protein Albumin Urine WBC (Auto) Crossmatch 07/11/16 07/11/16 07/11/16 05:10 07:40 11:45 WBC RBC Hgb POC Hgb Hct POC Hct MCH MCHC RDW Plt Count Lymph % (Auto) [place] % (Auto) Lymph # [place] # Baso # Seg Neutrophils % Seg Neuts % (Manual) Lymphocytes % (Manual) Monocytes % (Manual) Nucleated RBC % Seg Neutrophils # Seg Neutrophils # Man Lymphocytes # (Manual) Monocytes # (Manual) PT INR APTT Fibrinogen Heparin Anti-Xa Level POC ABG pH POC ABG pCO2 POC ABG pO2 POC Potassium POC Chloride Sodium Potassium Chloride Carbon Dioxide POC BUN BUN Creatinine Glucose 107 H POC Glucose 114 H 116 H Calcium 7.7 L Magnesium AST 81 H Alkaline Phosphatase 153 H Lactate Dehydrogenase Total Creatine Kinase Total Protein 6.0 L Albumin 1.8 L Urine WBC (Auto) Crossmatch 07/11/16 07/11/16 07/12/16 16:22 19:45 08:39 WBC RBC Hgb POC Hgb Hct POC Hct MCH MCHC RDW Plt Count Lymph % (Auto) [place] % (Auto) Lymph # [place] # Baso # Seg Neutrophils % Seg Neuts % (Manual) Lymphocytes % (Manual) Monocytes % (Manual) Nucleated RBC % Seg Neutrophils # Seg Neutrophils # Man Lymphocytes # (Manual) Monocytes # (Manual) PT INR APTT Fibrinogen Heparin Anti-Xa Level POC ABG pH POC ABG pCO2 POC ABG pO2 POC Potassium POC Chloride Sodium Potassium Chloride Carbon Dioxide POC BUN BUN Creatinine Glucose POC Glucose 110 H 106 H 124 H Calcium Magnesium AST Alkaline Phosphatase Lactate Dehydrogenase Total Creatine Kinase Total Protein Albumin Urine WBC (Auto) Crossmatch 07/12/16 07/12/16 07/13/16 11:31 16:36 07:05 WBC 12.4 H RBC 2.93 L Hgb 8.5 L POC Hgb Hct 25.6 L POC Hct MCH MCHC RDW Plt Count Lymph % (Auto) 11.2 L [place] % (Auto) 7.5 H Lymph # [place] # 0.9 H Baso # Seg Neutrophils % 80.6 H Seg Neuts % (Manual) Lymphocytes % (Manual) Monocytes % (Manual) Nucleated RBC % Seg Neutrophils # 10.0 H Seg Neutrophils # Man Lymphocytes # (Manual) Monocytes # (Manual) PT INR APTT Fibrinogen Heparin Anti-Xa Level POC ABG pH POC ABG pCO2 POC ABG pO2 POC Potassium POC Chloride Sodium Potassium Chloride Carbon Dioxide POC BUN BUN Creatinine Glucose POC Glucose 128 H 119 H Calcium Magnesium AST Alkaline Phosphatase Lactate Dehydrogenase Total Creatine Kinase Total Protein Albumin Urine WBC (Auto) Crossmatch 07/13/16 07/13/16 07/13/16 07:30 11:41 13:45 WBC RBC Hgb POC Hgb Hct POC Hct MCH MCHC RDW Plt Count Lymph % (Auto) [place] % (Auto) Lymph # [place] # Baso # Seg Neutrophils % Seg Neuts % (Manual) Lymphocytes % (Manual) Monocytes % (Manual) Nucleated RBC % Seg Neutrophils # Seg Neutrophils # Man Lymphocytes # (Manual) Monocytes # (Manual) PT INR APTT Fibrinogen Heparin Anti-Xa Level POC ABG pH POC ABG pCO2 POC ABG pO2 POC Potassium POC Chloride Sodium Potassium Chloride Carbon Dioxide POC BUN BUN Creatinine Glucose POC Glucose 133 H 129 H Calcium Magnesium AST Alkaline Phosphatase Lactate Dehydrogenase Total Creatine Kinase Total Protein Albumin Urine WBC (Auto) Crossmatch See Detail 07/13/16 07/13/16 07/14/16 15:28 23:29 08:15 WBC RBC Hgb POC Hgb Hct POC Hct MCH MCHC RDW Plt Count Lymph % (Auto) [place] % (Auto) Lymph # [place] # Baso # Seg Neutrophils % Seg Neuts % (Manual) Lymphocytes % (Manual) Monocytes % (Manual) Nucleated RBC % Seg Neutrophils # Seg Neutrophils # Man Lymphocytes # (Manual) Monocytes # (Manual) PT INR APTT Fibrinogen Heparin Anti-Xa Level POC ABG pH POC ABG pCO2 POC ABG pO2 POC Potassium POC Chloride Sodium Potassium Chloride Carbon Dioxide POC BUN BUN Creatinine Glucose POC Glucose 119 H 113 H 130 H Calcium Magnesium AST Alkaline Phosphatase Lactate Dehydrogenase Total Creatine Kinase Total Protein Albumin Urine WBC (Auto) Crossmatch 07/14/16 07/14/16 07/14/16 08:30 12:12 17:00 WBC RBC Hgb POC Hgb Hct POC Hct MCH MCHC RDW Plt Count Lymph % (Auto) [place] % (Auto) Lymph # [place] # Baso # Seg Neutrophils % Seg Neuts % (Manual) Lymphocytes % (Manual) Monocytes % (Manual) Nucleated RBC % Seg Neutrophils # Seg Neutrophils # Man Lymphocytes # (Manual) Monocytes # (Manual) PT INR APTT Fibrinogen Heparin Anti-Xa Level POC ABG pH POC ABG pCO2 POC ABG pO2 POC Potassium POC Chloride Sodium 135 L Potassium Chloride Carbon Dioxide POC BUN BUN Creatinine Glucose 113 H POC Glucose 115 H 119 H Calcium 7.8 L Magnesium AST Alkaline Phosphatase Lactate Dehydrogenase Total Creatine Kinase Total Protein Albumin Urine WBC (Auto) Crossmatch 07/14/16 07/15/16 07/15/16 Unknown 04:15 04:15 WBC 13.9 H 15.3 H RBC Hgb POC Hgb Hct POC Hct MCH MCHC RDW Plt Count Lymph % (Auto) 9.9 L 9.3 L [place] % (Auto) Lymph # [place] # 0.9 H Baso # Seg Neutrophils % 83.8 H 83.9 H Seg Neuts % (Manual) Lymphocytes % (Manual) Monocytes % (Manual) Nucleated RBC % Seg Neutrophils # 11.7 H 12.9 H Seg Neutrophils # Man Lymphocytes # (Manual) Monocytes # (Manual) PT INR APTT Fibrinogen Heparin Anti-Xa Level POC ABG pH POC ABG pCO2 POC ABG pO2 POC Potassium POC Chloride Sodium 131 L Potassium Chloride 96.5 L Carbon Dioxide POC BUN BUN Creatinine 0.6 L Glucose 104 H POC Glucose Calcium 8.0 L Magnesium AST Alkaline Phosphatase Lactate Dehydrogenase Total Creatine Kinase Total Protein Albumin Urine WBC (Auto) Crossmatch 07/15/16 07/15/16 07/15/16 11:29 16:06 22:05 WBC RBC Hgb POC Hgb Hct POC Hct MCH MCHC RDW Plt Count Lymph % (Auto) [place] % (Auto) Lymph # [place] # Baso # Seg Neutrophils % Seg Neuts % (Manual) Lymphocytes % (Manual) Monocytes % (Manual) Nucleated RBC % Seg Neutrophils # Seg Neutrophils # Man Lymphocytes # (Manual) Monocytes # (Manual) PT INR APTT Fibrinogen Heparin Anti-Xa Level POC ABG pH POC ABG pCO2 POC ABG pO2 POC Potassium POC Chloride Sodium Potassium Chloride Carbon Dioxide POC BUN BUN Creatinine Glucose POC Glucose 114 H 165 H 127 H Calcium Magnesium AST Alkaline Phosphatase Lactate Dehydrogenase Total Creatine Kinase Total Protein Albumin Urine WBC (Auto) Crossmatch 07/16/16 07/16/16 07/16/16 07:36 07:36 07:39 WBC RBC 2.86 L Hgb 8.5 L POC Hgb Hct 25.0 L D POC Hct MCH MCHC RDW Plt Count Lymph % (Auto) [place] % (Auto) 8.5 H Lymph # [place] # 0.9 H Baso # Seg Neutrophils % 77.7 H Seg Neuts % (Manual) Lymphocytes % (Manual) Monocytes % (Manual) Nucleated RBC % Seg Neutrophils # 8.5 H Seg Neutrophils # Man Lymphocytes # (Manual) Monocytes # (Manual) PT INR APTT Fibrinogen Heparin Anti-Xa Level POC ABG pH POC ABG pCO2 POC ABG pO2 POC Potassium POC Chloride Sodium 136 L Potassium Chloride Carbon Dioxide POC BUN BUN Creatinine 0.5 L Glucose 133 H POC Glucose 137 H Calcium 8.0 L Magnesium AST Alkaline Phosphatase Lactate Dehydrogenase Total Creatine Kinase Total Protein Albumin Urine WBC (Auto) Crossmatch 07/16/16 07/16/16 07/17/16 11:43 22:10 05:00 WBC 11.6 H RBC 2.95 L Hgb 8.5 L POC Hgb Hct 25.7 L POC Hct MCH MCHC RDW Plt Count Lymph % (Auto) [place] % (Auto) 8.4 H Lymph # [place] # 1.0 H Baso # Seg Neutrophils % 76.2 H Seg Neuts % (Manual) Lymphocytes % (Manual) Monocytes % (Manual) Nucleated RBC % Seg Neutrophils # 8.9 H Seg Neutrophils # Man Lymphocytes # (Manual) Monocytes # (Manual) PT INR APTT Fibrinogen Heparin Anti-Xa Level POC ABG pH POC ABG pCO2 POC ABG pO2 POC Potassium POC Chloride Sodium Potassium Chloride Carbon Dioxide POC BUN BUN Creatinine Glucose POC Glucose 154 H 140 H Calcium Magnesium AST Alkaline Phosphatase Lactate Dehydrogenase Total Creatine Kinase Total Protein Albumin Urine WBC (Auto) Crossmatch 07/17/16 07/17/16 07/17/16 05:00 07:32 12:27 WBC RBC Hgb POC Hgb Hct POC Hct MCH MCHC RDW Plt Count Lymph % (Auto) [place] % (Auto) Lymph # [place] # Baso # Seg Neutrophils % Seg Neuts % (Manual) Lymphocytes % (Manual) Monocytes % (Manual) Nucleated RBC % Seg Neutrophils # Seg Neutrophils # Man Lymphocytes # (Manual) Monocytes # (Manual) PT INR APTT Fibrinogen Heparin Anti-Xa Level POC ABG pH POC ABG pCO2 POC ABG pO2 POC Potassium POC Chloride Sodium Potassium Chloride Carbon Dioxide POC BUN BUN Creatinine 0.6 L Glucose 115 H POC Glucose 135 H 140 H Calcium Magnesium 1.4 L AST Alkaline Phosphatase Lactate Dehydrogenase Total Creatine Kinase Total Protein Albumin Urine WBC (Auto) Crossmatch
--- NOTE | 2016-07-17 15:58 | Progress Note ---
Assessment and Plan Status post left AKA. Patient is mildly slowly improving. Open right groin incision. Femoral artery is not exposed. Plan continue wound care with VAC. We will apply the VAC tomorrow to the right groin and pack it for now. We'll observe one more day the ICU if continues to improve possible transfer and I am. Subjective Principal diagnosis: Infected vascular graft; s/p cardiopulmonary arrest Interval history: No complaints today. Patient appears to be more alert than usual. Off the morphine drip. Objective - Exam Narrative Exam: Right foot warm. Easily dopplerable dorsalis pedis pulse. Left above-knee amputation site dressing and VAC is clean. The right groin incision open no drainage. Some fibrinous exudate at the bottom of the wound - Constitutional Vitals: Vital Signs - 12hr 07/17/16 07/17/16 07/17/16 04:00 04:05 04:30 Temperature 98.0 F Pulse Rate 95 H 98 H 94 H Pulse Rate [ 101 H From Monitor] Respiratory 16 16 12 Rate Blood Pressure 116/66 116/66 123/65 O2 Sat by Pulse 100 Oximetry 07/17/16 07/17/16 07/17/16 05:01 05:11 05:30 Temperature Pulse Rate 95 H Pulse Rate [ From Monitor] Respiratory 13 12 Rate Blood Pressure 122/105 124/62 O2 Sat by Pulse Oximetry 07/17/16 07/17/16 07/17/16 06:11 06:31 07:01 Temperature Pulse Rate 96 H 101 H 96 H Pulse Rate [ From Monitor] Respiratory 24 22 Rate Blood Pressure 124/62 136/64 130/72 O2 Sat by Pulse 100 Oximetry 07/17/16 07/17/16 07/17/16 07:21 07:30 07:50 Temperature 97.4 F L Pulse Rate 92 H 102 H Pulse Rate [ From Monitor] Respiratory 18 15 Rate Blood Pressure 130/72 138/73 O2 Sat by Pulse Oximetry 07/17/16 07/17/16 07/17/16 08:00 08:20 08:31 Temperature Pulse Rate 105 H 106 H 106 H Pulse Rate [ 105 H From Monitor] Respiratory 14 18 15 Rate Blood Pressure 147/75 147/75 104/72 O2 Sat by Pulse 99 Oximetry 07/17/16 07/17/16 07/17/16 09:01 09:31 10:00 Temperature Pulse Rate 100 H 105 H 102 H Pulse Rate [ 101 H From Monitor] Respiratory 16 18 17 Rate Blood Pressure 115/57 128/78 145/73 O2 Sat by Pulse 100 Oximetry 07/17/16 07/17/16 07/17/16 10:24 10:31 10:45 Temperature Pulse Rate 102 H 107 H 101 H Pulse Rate [ From Monitor] Respiratory 14 23 Rate Blood Pressure 145/73 147/43 147/43 O2 Sat by Pulse Oximetry 07/17/16 07/17/16 07/17/16 11:01 11:31 11:41 Temperature Pulse Rate 103 H 105 H 92 H Pulse Rate [ From Monitor] Respiratory 26 H 17 13 Rate Blood Pressure 93/70 93/70 104/70 O2 Sat by Pulse Oximetry 07/17/16 07/17/16 07/17/16 11:57 12:00 12:03 Temperature 97.4 F L Pulse Rate 87 96 H 91 H Pulse Rate [ 92 H From Monitor] Respiratory 20 33 H 21 Rate Blood Pressure 104/70 128/68 128/68 O2 Sat by Pulse 100 Oximetry 07/17/16 07/17/16 12:31 13:01 Temperature Pulse Rate 88 110 H Pulse Rate [ From Monitor] Respiratory 24 16 Rate Blood Pressure 104/70 176/81 O2 Sat by Pulse 100 100 Oximetry - Labs CBC & Chem 7: 07/17/16 05:00 07/17/16 05:00 Labs: Abnormal lab results 07/16/16 07/17/16 07/17/16 Range/Units 22:10 05:00 05:00 WBC 11.6 H (4.5-11.0) K/mm3 RBC 2.95 L (3.65-5.03) M/mm3 Hgb 8.5 L (10.1-14.3) gm/dl Hct 25.7 L (30.3-42.9) % [place] % (Auto) 8.4 H (0.0-7.3) % [place] # 1.0 H (0.0-0.8) K/mm3 Seg Neutrophils % 76.2 H (40.0-70.0) % Seg Neutrophils # 8.9 H (1.8-7.7) K/mm3 Creatinine 0.6 L (0.7-1.2) mg/dL Glucose 115 H (65-100) mg/dL POC Glucose 140 H (70-105) Magnesium 1.4 L (1.7-2.3) mg/dL 07/17/16 07/17/16 Range/Units 07:32 12:27 WBC (4.5-11.0) K/mm3 RBC (3.65-5.03) M/mm3 Hgb (10.1-14.3) gm/dl Hct (30.3-42.9) % [place] % (Auto) (0.0-7.3) % [place] # (0.0-0.8) K/mm3 Seg Neutrophils % (40.0-70.0) % Seg Neutrophils # (1.8-7.7) K/mm3 Creatinine (0.7-1.2) mg/dL Glucose (65-100) mg/dL POC Glucose 135 H 140 H (70-105) Magnesium (1.7-2.3) mg/dL
--- NOTE | 2016-07-17 16:53 | Progress Note ---
Assessment and Plan Assessment and plan: 1. Diabetes - BS in low 100s; continue Accu-Cheks and SSI as needed 2. Hypertension - BP controlled only on atenolol 3. PVD - status post left AKA; managed by vascular surgery 4. Right groin wound infection - local wound care, antibiotics per ID recommendation 5. Anemia - on iron supplementation 6. DVT prophylaxis - per vascular surgery History Interval history: more alert, pain controlled Hospitalist Physical - Constitutional Vitals: Temp Pulse Resp BP Pulse Ox 98.1 F 110 H 16 176/81 100 07/17/16 16:00 07/17/16 13:01 07/17/16 13:01 07/17/16 13:01 07/17/16 13:01 General appearance: Present: no acute distress, well-nourished - EENT Eyes: Present: PERRL, EOM intact. Absent: scleral icterus, conjunctival injection - Neck Neck: Present: supple, normal ROM. Absent: masses or JVD - Respiratory Respiratory effort: normal Respiratory: bilateral: CTA, negative: rales, rhonchi - Cardiovascular Rhythm: regular Heart Sounds: Present: S1 & S2. Absent: systolic murmur - Extremities Extremities: abnormal (L AKA) Extremity abnormal: other (R groin open wound) - Abdominal General gastrointestinal: soft, non-tender, non-distended, normal bowel sounds - Integumentary Integumentary: Present: warm, dry. Absent: jaundice, rash - Psychiatric Psychiatric: cooperative - Neurologic Neurologic: moves all extremities Results - Labs CBC & Chem 7: 07/17/16 05:00 07/17/16 05:00 Labs: Laboratory Last Values WBC 11.6 K/mm3 (4.5-11.0) H 07/17/16 05:00 RBC 2.95 M/mm3 (3.65-5.03) L 07/17/16 05:00 Hgb 8.5 gm/dl (10.1-14.3) L 07/17/16 05:00 POC Hgb 6.5 (12-17) L 06/16/16 18:07 Hct 25.7 % (30.3-42.9) L 07/17/16 05:00 POC Hct 19 (38-51) L 06/16/16 18:07 MCV 87 fl (79-97) 07/17/16 05:00 MCH 29 pg (28-32) 07/17/16 05:00 MCHC 33 % (30-34) 07/17/16 05:00 RDW 14.8 % (13.2-15.2) 07/17/16 05:00 Plt Count 415 K/mm3 (140-440) 07/17/16 05:00 Lymph % (Auto) 14.6 % (13.4-35.0) 07/17/16 05:00 [place] % (Auto) 8.4 % (0.0-7.3) H 07/17/16 05:00 Eos % (Auto) 0.3 % (0.0-4.3) 07/17/16 05:00 Baso % (Auto) 0.5 % (0.0-1.8) 07/17/16 05:00 Lymph # 1.7 K/mm3 (1.2-5.4) 07/17/16 05:00 [place] # 1.0 K/mm3 (0.0-0.8) H 07/17/16 05:00 Eos # 0.0 K/mm3 (0.0-0.4) 07/17/16 05:00 Baso # 0.1 K/mm3 (0.0-0.1) 07/17/16 05:00 Add Manual Diff TNR 07/09/16 07:31 Total Counted 100 07/06/16 04:40 Seg Neutrophils % 76.2 % (40.0-70.0) H 07/17/16 05:00 Seg Neuts % (Manual) 85.0 % (40.0-70.0) H 07/06/16 04:40 Band Neutrophils % 0 % 07/06/16 04:40 Lymphocytes % (Manual) 4.0 % (13.4-35.0) L 07/06/16 04:40 Reactive Lymphs % (Man) 1.0 % 07/06/16 04:40 Monocytes % (Manual) 10.0 % (0.0-7.3) H 07/06/16 04:40 Eosinophils % (Manual) 0 % (0.0-4.3) 07/06/16 04:40 Basophils % (Manual) 0 % (0.0-1.8) 07/06/16 04:40 Metamyelocytes % 0 % 07/06/16 04:40 Myelocytes % 0 % 07/06/16 04:40 Promyelocytes % 0 % 07/06/16 04:40 Blast Cells % 0 % 07/06/16 04:40 Nucleated RBC % Not Reportable 07/06/16 04:40 Seg Neutrophils # 8.9 K/mm3 (1.8-7.7) H 07/17/16 05:00 Seg Neutrophils # Man 15.0 K/mm3 (1.8-7.7) H 07/06/16 04:40 Band Neutrophils # 0.0 K/mm3 07/06/16 04:40 Lymphocytes # (Manual) 0.7 K/mm3 (1.2-5.4) L 07/06/16 04:40 Abs React Lymphs (Man) 0.2 K/mm3 07/06/16 04:40 Monocytes # (Manual) 1.8 K/mm3 (0.0-0.8) H 07/06/16 04:40 Eosinophils # (Manual) 0.0 K/mm3 (0.0-0.4) 07/06/16 04:40 Basophils # (Manual) 0.0 K/mm3 (0.0-0.1) 07/06/16 04:40 Metamyelocytes # 0.0 K/mm3 07/06/16 04:40 Myelocytes # 0.0 K/mm3 07/06/16 04:40 Promyelocytes # 0.0 K/mm3 07/06/16 04:40 Blast Cells # 0.0 K/mm3 07/06/16 04:40 WBC Morphology Not Reportable 07/06/16 04:40 Hypersegmented Neuts Not Reportable 07/06/16 04:40 Hyposegmented Neuts Not Reportable 07/06/16 04:40 Hypogranular Neuts Not Reportable 07/06/16 04:40 Smudge Cells Not Reportable 07/06/16 04:40 Toxic Granulation Not Reportable 07/06/16 04:40 Toxic Vacuolation Not Reportable 07/06/16 04:40 Dohle Bodies Not Reportable 07/06/16 04:40 Pelger-Huet Anomaly Not Reportable 07/06/16 04:40 Mary Rods Not Reportable 07/06/16 04:40 Platelet Estimate Appears normal 07/06/16 04:40 Clumped Platelets Not Reportable 07/06/16 04:40 Plt Clumps, EDTA Not Reportable 07/06/16 04:40 Large Platelets Not Reportable 07/06/16 04:40 Giant Platelets Not Reportable 07/06/16 04:40 Platelet Satelliting Not Reportable 07/06/16 04:40 Plt Morphology Comment Not Reportable 07/06/16 04:40 RBC Morphology Not Reportable 07/06/16 04:40 Dimorphic RBCs Not Reportable 07/06/16 04:40 Polychromasia Not Reportable 07/06/16 04:40 Hypochromasia Not Reportable 07/06/16 04:40 Poikilocytosis Not Reportable 07/06/16 04:40 Anisocytosis 1+ 07/06/16 04:40 Microcytosis Not Reportable 07/06/16 04:40 Macrocytosis Not Reportable 07/06/16 04:40 Spherocytes Not Reportable 07/06/16 04:40 Pappenheimer Bodies Not Reportable 07/06/16 04:40 Sickle Cells Not Reportable 07/06/16 04:40 Target Cells Not Reportable 07/06/16 04:40 Tear Drop Cells Not Reportable 07/06/16 04:40 Ovalocytes Not Reportable 07/06/16 04:40 Helmet Cells Not Reportable 07/06/16 04:40 Gaines-Fords Bodies Not Reportable 07/06/16 04:40 Raymond Rings Not Reportable 07/06/16 04:40 Padmini Cells Not Reportable 07/06/16 04:40 Bite Cells Not Reportable 07/06/16 04:40 Crenated Cell Not Reportable 07/06/16 04:40 Elliptocytes Not Reportable 07/06/16 04:40 Acanthocytes (Spur) Not Reportable 07/06/16 04:40 Rouleaux Not Reportable 07/06/16 04:40 Hemoglobin C Crystals Not Reportable 07/06/16 04:40 Schistocytes Not Reportable 07/06/16 04:40 Malaria parasites Not Reportable 07/06/16 04:40 Sean Bodies Not Reportable 07/06/16 04:40 Haptoglobin 97 mg/dL (43-212) 07/09/16 14:09 Hem Pathologist Commnt No 07/06/16 04:40 PT 19.9 Sec. (12.2-14.9) H 06/26/16 22:57 INR 1.69 (0.87-1.13) H 06/26/16 22:57 APTT 32.8 Sec. (24.2-36.6) 06/26/16 22:57 Fibrinogen 522 mg/dl (211-480) H 06/13/16 09:45 Heparin Anti-Xa Level 0.45 U.I./ml (0.3-0.7) 06/29/16 20:31 POC ABG pH 7.436 (7.35-7.45) 07/04/16 16:49 POC ABG pCO2 31.1 (35-45) L 07/04/16 16:49 POC ABG pO2 110 (80-105) H 07/04/16 16:49 POC ABG HCO3 20.9 07/04/16 16:49 POC ABG Total CO2 22 07/04/16 16:49 POC ABG O2 Sat 99 07/04/16 16:49 POC ABG Base Excess -3 07/04/16 16:49 POC Sodium 146 mmol/L (138-146) 06/16/16 18:07 POC Potassium 3.5 (3.5-4.9) 06/16/16 18:07 POC Chloride 113 (98-109) H 06/16/16 18:07 FiO2 30 % 07/04/16 16:49 Sodium 137 mmol/L (137-145) 07/17/16 05:00 Potassium 3.9 mmol/L (3.6-5.0) 07/17/16 05:00 Chloride 101.3 mmol/L (98-107) 07/17/16 05:00 Carbon Dioxide 25 mmol/L (22-30) 07/17/16 05:00 Anion Gap 15 mmol/L 07/17/16 05:00 POC BUN 7 mg/dl (8-26) L 06/16/16 18:07 BUN 7 mg/dL (7-17) 07/17/16 05:00 Creatinine 0.6 mg/dL (0.7-1.2) L 07/17/16 05:00 Estimated GFR > 60 ml/min 07/17/16 05:00 BUN/Creatinine Ratio 11.66 % 07/17/16 05:00 Glucose 115 mg/dL (65-100) H 07/17/16 05:00 POC Glucose 127 (70-105) H 07/17/16 16:23 Calcium 8.5 mg/dL (8.4-10.2) 07/17/16 05:00 Magnesium 1.4 mg/dL (1.7-2.3) L 07/17/16 05:00 Total Bilirubin 0.7 mg/dL (0.1-1.2) 07/11/16 05:10 AST 81 units/L (5-40) H 07/11/16 05:10 ALT 20 units/L (7-56) 07/11/16 05:10 Alkaline Phosphatase 153 units/L (35-129) H 07/11/16 05:10 Lactate Dehydrogenase 285 units/L (91-180) H 07/09/16 07:31 Total Creatine Kinase 297 units/L (30-135) H 07/09/16 07:31 Total Protein 6.0 g/dL (6.3-8.2) L 07/11/16 05:10 Albumin 1.8 g/dL (3.9-5) L 07/11/16 05:10 Albumin/Globulin Ratio 0.4 % 07/11/16 05:10 Urine Color Yellow (Yellow) 07/06/16 17:17 Urine Turbidity Slightly-cloudy (Clear) 07/06/16 17:17 Urine pH 6.0 (5.0-7.0) 07/06/16 17:17 Ur Specific [place] 1.011 (1.003-1.030) 07/06/16 17:17 Urine Protein 30 mg/dl mg/dL (Negative) 07/06/16 17:17 Urine Glucose (UA) Neg mg/dL (Negative) 07/06/16 17:17 Urine Ketones Neg mg/dL (Negative) 07/06/16 17:17 Urine Blood Lg (Negative) 07/06/16 17:17 Urine Nitrite Neg (Negative) 07/06/16 17:17 Urine Bilirubin Neg (Negative) 07/06/16 17:17 Urine Urobilinogen < 2.0 mg/dL (<2.0) 07/06/16 17:17 Ur Leukocyte Esterase Lg (Negative) 07/06/16 17:17 Urine WBC (Auto) 67.0 /HPF (0.0-6.0) H 07/06/16 17:17 Urine RBC (Auto) > 182.0 /HPF (0.0-6.0) 07/06/16 17:17 Blood Type O POSITIVE 07/13/16 13:45 Antibody Screen Negative 07/13/16 13:45 Crossmatch See Detail 07/13/16 13:45
[2016-07-18] MEDS: MORPHINE IV PRN ×2 (02:33→09:23)
[2016-07-18] MEDS: ZOSYN/NS 4.5GM/100ML 100 ML IV SCH ×2 (04:32→20:00)
[2016-07-18 05:34] LABS: Basophils % (Auto) 0.5 % (0.0-1.8); Eosinophils % (Auto) 0.3 % (0.0-4.3); Hematocrit 23.2 % (30.3-42.9); Hemoglobin 7.7 gm/dl (10.1-14.3); Mean Corpuscular HGB Conc 33 % (30-34); Mean Corpuscular Hemoglobin 29 pg (28-32); Mean Corpuscular Volume 87 fl (79-97); Platelet Count 447 K/mm3 (140-440); Red Blood Count 2.67 M/mm3 (3.65-5.03); Red Cell Distribution Width 14.9 % (13.2-15.2)
[2016-07-18] MEDS: D5W/0.45% NACL/KCL 20 MEQ 1,000 ML IV SCH (06:55)
[2016-07-18] MEDS: NOVOLOG SUB-Q SCH ×4 (08:30→22:00)
[2016-07-18] MEDS: SENOKOT S PO SCH ×2 (10:00→22:00)
--- NOTE | 2016-07-18 10:18 | Progress Note ---
Assessment and Plan Current antibiotics: Zosyn 4.5 grams IV q8h 07/08 --> Previous antibiotics: Zosyn 2.25 g IV q8h 06/21-06/24 Cefazolin perioperatively ASSESSMENT: Cande Ge is a 55-year-old female with severe peripheral vascular disease, type 2 DM with peripheral neuropathy and hypertension who was admitted to [facility] as an outpatient with left lower extremity pain at rest for her cutaneous intervention which was unsuccessful and subsequently underwent left femoral endarterectomy and left iliac stenting and left femoral-popliteal bypass on 06/16 , urgent thrombectomies on 06/20 and right femoral endarterectomy with patch angioplasty on 07/03. She also had 2 cardiac arrests on 06/20 requiring resuscitation and intubation. She developed evidence of a retroperitoneal hematoma and ureteral obstruction and underwent bilateral ureteral stenting on 06/27. She has had a low-grade fever and leukocytosis. Problem list: 1. 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 2. Severe peripheral vascular disease -Unsuccessful attempt at percutaneous left lower extremity revascularization 06/13 -Left femoral endarterectomy, left iliac stenting and left femoral-popliteal bypass on 06/16 -Left lower extremity thrombectomies on 06/20 -Right femoral endarterectomy with patch angioplasty on 07/03 -Status post left AKA 07/15 with dehisced wound. 3. Leukocytosis -Likely reactive -Patient has multiple reasons for leukocytosis including retroperitoneal hematoma , GI bleeding and multiple surgeries -Status post left groin infection and infected Dacron patch -Resolving 4. Low-grade fever -Resolved 5. Right groin wound infection -Purulent material seen at surgery 07/15/16 6. Retroperitoneal hematoma -As seen on CT scan 06/27 -Resolving 7. Bilateral hydroureteronephrosis -Status post bilateral ureteral stenting 06/27 8. Status post cardiopulmonary arrests X 2 -06/20 -Mechanical ventilatory support until 07/05 9. REJI -Creatinine peaked at 4.8 on 06/27 -Likely secondary to ATN -Resolved 10. Anemia -Likely multifactorial secondary to bleeding and chronic disease 10. Type 2 DM 11. [employer] bacteremia (07/09) - suspect contaminant with one of 2 bottles positive. PLAN: 1. Continue Zosyn 2. Continue local wound care 3. Plan 4 weeks of postoperative antibiotics. 4. Continued supportive measures and close observation Subjective Date of service: 07/18/16 Principal diagnosis: Infected vascular graft; s/p cardiopulmonary arrest Interval history: No events overnight. Patient denies diarrhea. Seen this morning during wound VAC changes. Objective - Exam Narrative Exam: Continues afebrile. GENERAL: Well-developed, well-nourished appearing female who appears somewhat older than her stated age and appears chronically ill but is in no acute distress. HEAD: Normocephalic. No lesions seen. EYES: Pupils are equal reactive to light and accommodation. There is no scleral icterus. Optic fundi are not examined. EARS: No evidence of external drainage THROAT: Oropharynx is normal with no evidence of oral candidiasis or pharyngitis. Patient is edentulous. NECK: Supple. No enlargement of the thyroid gland. No significant cervical lymphadenopathy. No jugular venous distention at 60. LUNGS: Clear with no adventitious sounds. HEART: Regular rate with occasional extra beat heard. S1 and S2 are normal. There are no murmurs, gallops, clicks or rubs heard. ABDOMEN: Soft and nontender. Liver and spleen are not palpably enlarged or tender. No palpable masses. Bowel sounds are normoactive. EXTREMITIES: No peripheral lymphadenopathy or clubbing. There is moderate bilateral lower extremity edema with diffuse tenderness to palpation but no increased erythema. SKIN: Right chest Vas-Cath in place with no redness noted. Open left stump wound, left groin wound, right inguinal wound all clean without drainage, surrounding redness or foul odor. NEUROLOGIC: No gross lateralizing findings. - Constitutional Vitals: Vital Signs Temp Pulse Resp BP Pulse Ox 98.4 F 104 H 22 140/57 100 07/18/16 07:48 07/18/16 00:00 07/18/16 09:23 07/18/16 05:11 07/18/16 00:00 Temperature -Last 24 Hours Temperature 98.4 F Temperature 98.1 F Temperature 98.1 F Temperature 97.4 F - Labs CBC & Chem 7: 07/18/16 05:00 07/17/16 05:00 Labs: Abnormal lab results 07/17/16 07/17/16 07/18/16 Range/Units 12:27 16:23 05:00 RBC 2.67 L (3.65-5.03) M/mm3 Hgb 7.7 L (10.1-14.3) gm/dl Hct 23.2 L (30.3-42.9) % Plt Count 447 H (140-440) K/mm3 [place] % (Auto) 8.5 H (0.0-7.3) % Seg Neutrophils % 73.1 H (40.0-70.0) % POC Glucose 140 H 127 H (70-105) 07/18/16 Range/Units 07:31 RBC (3.65-5.03) M/mm3 Hgb (10.1-14.3) gm/dl Hct (30.3-42.9) % Plt Count (140-440) K/mm3 [place] % (Auto) (0.0-7.3) % Seg Neutrophils % (40.0-70.0) % POC Glucose 119 H (70-105)
--- NOTE | 2016-07-18 11:23 | Progress Note ---
Assessment and Plan - Patient Problems (1) Peripheral vascular disease of extremity Current Visit: Yes Status: Acute Plan to address problem: - s/p AKA AKA - vascular surgery managing - continue analgesia but change from [employer] to fentanyl basal 25mics/hr patch and prn morphine sulfate - wound care per WCT (2) Acute respiratory failure Current Visit: Yes Status: Acute Plan to address problem: - on room air but need to r/o hemothorax which will necessitate further intervention - thoracentesis on hold re: plavix but also clinical stability respiratory-centeno - will repeat CXR and if persistent effusion will revisit thoracentesis - follow repeat CXR (3) Anemia Current Visit: Yes Status: Acute Plan to address problem: - follow H&H - evaluating source - LDH unremarkable - Likely ABLA component - H&H holding so far but trending down (4) Altered mental status Current Visit: Yes Status: Acute Plan to address problem: - resolved Subjective Date of service: 07/18/16 Principal diagnosis: Infected vascular graft; s/p cardiopulmonary arrest Interval history: Seen and examined at bedside; 24 hour events reviewed; nursing and respiratory care staff consulted; no adverse overnight events reported to me; resting in bed ; she is bored; denies any uncontrolled pain; discussed with attending and tentatively for transfer today Objective Vital Signs - 12hr 07/17/16 07/17/16 07/18/16 23:31 23:52 00:00 Temperature Pulse Rate 106 H 104 H Respiratory 21 20 20 Rate Blood Pressure 143/77 132/58 136/67 O2 Sat by Pulse 98 100 Oximetry 07/18/16 07/18/16 07/18/16 00:20 05:11 07:48 Temperature 98.1 F 98.4 F Pulse Rate Respiratory 21 Rate Blood Pressure 140/57 O2 Sat by Pulse Oximetry 07/18/16 09:23 Temperature Pulse Rate Respiratory 22 Rate Blood Pressure O2 Sat by Pulse Oximetry Constitutional: no acute distress, alert Eyes: non-icteric ENT: oropharynx moist Neck: supple, no lymphadenopathy Effort: normal Ascultation: Left: diminished breath sounds (base), Bilateral: clear Cardiovascular: regular rate and rhythm Gastrointestinal: normoactive bowel sounds, soft, non-tender, non-distended Integumentary: other (weak LLExt) Extremities: edema, other (s/p left AKA) Neurologic: normal mental status, non-focal exam, pupils equal and round Psychiatric: mood appropriate, affect normal CBC and BMP: 07/18/16 05:00 07/17/16 05:00 ABG, PT/INR, D-dimer: ABG POC ABG pH 7.436 (7.35-7.45) 07/04/16 16:49 POC ABG pCO2 31.1 (35-45) L 07/04/16 16:49 POC ABG pO2 110 (80-105) H 07/04/16 16:49 POC ABG HCO3 20.9 07/04/16 16:49 POC ABG Total CO2 22 07/04/16 16:49 POC ABG O2 Sat 99 07/04/16 16:49 PT/INR, D-dimer PT 19.9 Sec. (12.2-14.9) H 06/26/16 22:57 INR 1.69 (0.87-1.13) H 06/26/16 22:57 Abnormal lab findings: Abnormal Labs 06/13/16 06/13/16 06/13/16 09:45 09:45 09:45 WBC RBC Hgb POC Hgb Hct POC Hct MCH 25 L MCHC RDW 15.8 H Plt Count Lymph % (Auto) Lane % (Auto) 8.1 H Lymph # Lane # Baso # Seg Neutrophils % Seg Neuts % (Manual) Lymphocytes % (Manual) Monocytes % (Manual) Nucleated RBC % Seg Neutrophils # Seg Neutrophils # Man Lymphocytes # (Manual) Monocytes # (Manual) PT INR APTT Fibrinogen 522 H Heparin Anti-Xa Level POC ABG pH POC ABG pCO2 POC ABG pO2 POC Potassium POC Chloride Sodium Potassium Chloride Carbon Dioxide POC BUN BUN Creatinine Glucose POC Glucose Calcium 10.3 H Magnesium AST Alkaline Phosphatase Lactate Dehydrogenase Total Creatine Kinase Total Protein Albumin Urine WBC (Auto) Crossmatch 06/13/16 06/13/16 06/13/16 09:45 20:14 20:15 WBC RBC Hgb POC Hgb Hct POC Hct MCH MCHC RDW Plt Count Lymph % (Auto) Lane % (Auto) Lymph # Lane # Baso # Seg Neutrophils % Seg Neuts % (Manual) Lymphocytes % (Manual) Monocytes % (Manual) Nucleated RBC % Seg Neutrophils # Seg Neutrophils # Man Lymphocytes # (Manual) Monocytes # (Manual) PT INR APTT 103.8 H* Fibrinogen Heparin Anti-Xa Level 0.72 H POC ABG pH POC ABG pCO2 POC ABG pO2 POC Potassium POC Chloride Sodium Potassium Chloride Carbon Dioxide POC BUN BUN Creatinine Glucose POC Glucose Calcium Magnesium AST Alkaline Phosphatase Lactate Dehydrogenase Total Creatine Kinase Total Protein Albumin Urine WBC (Auto) Crossmatch See Detail 06/14/16 06/14/16 06/14/16 07:44 10:18 19:09 WBC RBC Hgb POC Hgb Hct POC Hct MCH 26 L MCHC RDW 15.8 H Plt Count Lymph % (Auto) Lane % (Auto) 9.1 H Lymph # Lane # Baso # Seg Neutrophils % Seg Neuts % (Manual) Lymphocytes % (Manual) Monocytes % (Manual) Nucleated RBC % Seg Neutrophils # Seg Neutrophils # Man Lymphocytes # (Manual) Monocytes # (Manual) PT INR APTT Fibrinogen Heparin Anti-Xa Level 0.76 H POC ABG pH POC ABG pCO2 POC ABG pO2 POC Potassium POC Chloride Sodium Potassium Chloride Carbon Dioxide POC BUN BUN Creatinine Glucose POC Glucose 106 H Calcium Magnesium AST Alkaline Phosphatase Lactate Dehydrogenase Total Creatine Kinase Total Protein Albumin Urine WBC (Auto) Crossmatch 06/15/16 06/15/16 06/15/16 04:43 04:43 22:49 WBC RBC Hgb 9.2 L POC Hgb Hct 28.4 L POC Hct MCH MCHC RDW Plt Count Lymph % (Auto) Lane % (Auto) Lymph # Lane # Baso # Seg Neutrophils % Seg Neuts % (Manual) Lymphocytes % (Manual) Monocytes % (Manual) Nucleated RBC % Seg Neutrophils # Seg Neutrophils # Man Lymphocytes # (Manual) Monocytes # (Manual) PT INR APTT Fibrinogen Heparin Anti-Xa Level 0.85 H POC ABG pH POC ABG pCO2 POC ABG pO2 POC Potassium POC Chloride Sodium Potassium Chloride Carbon Dioxide POC BUN BUN Creatinine Glucose POC Glucose 134 H Calcium Magnesium AST Alkaline Phosphatase Lactate Dehydrogenase Total Creatine Kinase Total Protein Albumin Urine WBC (Auto) Crossmatch 06/16/16 06/16/16 06/16/16 08:55 08:55 14:21 WBC RBC Hgb POC Hgb 5.8 L Hct POC Hct 17 L MCH MCHC RDW Plt Count Lymph % (Auto) Lane % (Auto) Lymph # Lane # Baso # Seg Neutrophils % Seg Neuts % (Manual) Lymphocytes % (Manual) Monocytes % (Manual) Nucleated RBC % Seg Neutrophils # Seg Neutrophils # Man Lymphocytes # (Manual) Monocytes # (Manual) PT INR APTT 20.0 L Fibrinogen Heparin Anti-Xa Level POC ABG pH POC ABG pCO2 POC ABG pO2 POC Potassium 2.9 L POC Chloride Sodium Potassium Chloride Carbon Dioxide POC BUN 7 L BUN Creatinine Glucose POC Glucose 249 H Calcium Magnesium AST Alkaline Phosphatase Lactate Dehydrogenase Total Creatine Kinase Total Protein Albumin Urine WBC (Auto) Crossmatch See Detail 06/16/16 06/16/16 06/16/16 16:55 17:41 17:48 WBC RBC Hgb POC Hgb 8.8 L Hct POC Hct 26 L < 15 L MCH MCHC RDW Plt Count Lymph % (Auto) Lane % (Auto) Lymph # Lane # Baso # Seg Neutrophils % Seg Neuts % (Manual) Lymphocytes % (Manual) Monocytes % (Manual) Nucleated RBC % Seg Neutrophils # Seg Neutrophils # Man Lymphocytes # (Manual) Monocytes # (Manual) PT INR APTT Fibrinogen Heparin Anti-Xa Level POC ABG pH 7.031 L POC ABG pCO2 POC ABG pO2 475 H POC Potassium 3.2 L POC Chloride 112 H 114 H Sodium Potassium Chloride Carbon Dioxide POC BUN 7 L 7 L BUN Creatinine Glucose POC Glucose 203 H 291 H Calcium Magnesium AST Alkaline Phosphatase Lactate Dehydrogenase Total Creatine Kinase Total Protein Albumin Urine WBC (Auto) Crossmatch 06/16/16 06/16/16 06/16/16 18:07 19:09 20:10 WBC 15.8 H RBC Hgb POC Hgb 6.5 L Hct POC Hct 19 L MCH MCHC RDW Plt Count 38 L Lymph % (Auto) 5.[address] % (Auto) 9.3 H Lymph # 0.[address] # 1[address]5 H Baso # Seg Neutrophils % 84.6 H Seg Neuts % (Manual) Lymphocytes % (Manual) Monocytes % (Manual) Nucleated RBC % Seg Neutrophils # 13.3 H Seg Neutrophils # Man Lymphocytes # (Manual) Monocytes # (Manual) PT INR APTT Fibrinogen Heparin Anti-Xa Level POC ABG pH POC ABG pCO2 POC ABG pO2 POC Potassium POC Chloride 113 H Sodium Potassium Chloride Carbon Dioxide POC BUN 7 L BUN Creatinine Glucose POC Glucose 263 H 231 H Calcium Magnesium AST Alkaline Phosphatase Lactate Dehydrogenase Total Creatine Kinase Total Protein Albumin Urine WBC (Auto) Crossmatch 06/16/16 06/16/16 06/16/16 20:10 20:18 21:10 WBC RBC Hgb POC Hgb Hct POC Hct MCH MCHC RDW Plt Count Lymph % (Auto) Lane % (Auto) Lymph # Lane # Baso # Seg Neutrophils % Seg Neuts % (Manual) Lymphocytes % (Manual) Monocytes % (Manual) Nucleated RBC % Seg Neutrophils # Seg Neutrophils # Man Lymphocytes # (Manual) Monocytes # (Manual) PT INR APTT Fibrinogen Heparin Anti-Xa Level POC ABG pH 7.236 L 7.280 L POC ABG pCO2 POC ABG pO2 139 H 145 H POC Potassium POC Chloride Sodium Potassium 3.4 L Chloride 114.5 H Carbon Dioxide 17 L D POC BUN BUN Creatinine Glucose 188 H POC Glucose Calcium 6.1 L D Magnesium AST Alkaline Phosphatase Lactate Dehydrogenase Total Creatine Kinase Total Protein Albumin Urine WBC (Auto) Crossmatch 06/16/16 06/17/16 06/17/16 22:53 04:48 05:35 WBC RBC Hgb POC Hgb Hct POC Hct MCH MCHC RDW Plt Count Lymph % (Auto) Lane % (Auto) Lymph # Lane # Baso # Seg Neutrophils % Seg Neuts % (Manual) Lymphocytes % (Manual) Monocytes % (Manual) Nucleated RBC % Seg Neutrophils # Seg Neutrophils # Man Lymphocytes # (Manual) Monocytes # (Manual) PT INR APTT Fibrinogen Heparin Anti-Xa Level POC ABG pH POC ABG pCO2 33.9 L 22.2 L POC ABG pO2 152 H 154 H POC Potassium POC Chloride Sodium 150 H Potassium 3.4 L Chloride 114.2 H Carbon Dioxide 16 L POC BUN BUN Creatinine Glucose 221 H POC Glucose Calcium 7.6 L D Magnesium AST Alkaline Phosphatase Lactate Dehydrogenase Total Creatine Kinase Total Protein Albumin Urine WBC (Auto) Crossmatch 06/17/16 06/18/16 06/18/16 09:22 07:26 08:25 WBC 20.3 H RBC 3.41 L Hgb 9.9 L POC Hgb Hct 29.7 L POC Hct MCH MCHC RDW Plt Count Lymph % (Auto) Lane % (Auto) Lymph # Lane # Baso # Seg Neutrophils % Seg Neuts % (Manual) 81.0 H Lymphocytes % (Manual) 6.0 L Monocytes % (Manual) 12.0 H Nucleated RBC % Seg Neutrophils # Seg Neutrophils # Man 16.4 H Lymphocytes # (Manual) Monocytes # (Manual) 2.4 H PT INR APTT Fibrinogen Heparin Anti-Xa Level POC ABG pH POC ABG pCO2 POC ABG pO2 POC Potassium POC Chloride Sodium Potassium 3.1 L Chloride Carbon Dioxide POC BUN BUN Creatinine Glucose 136 H POC Glucose 141 H Calcium 7.5 L Magnesium AST Alkaline Phosphatase Lactate Dehydrogenase Total Creatine Kinase Total Protein Albumin Urine WBC (Auto) Crossmatch 06/18/16 06/18/16 06/18/16 08:25 11:09 19:40 WBC RBC Hgb 6.5 L D POC Hgb Hct 19.3 L* D POC Hct MCH MCHC RDW Plt Count 131 L Lymph % (Auto) Lane % (Auto) Lymph # Lane # Baso # Seg Neutrophils % Seg Neuts % (Manual) Lymphocytes % (Manual) Monocytes % (Manual) Nucleated RBC % Seg Neutrophils # Seg Neutrophils # Man Lymphocytes # (Manual) Monocytes # (Manual) PT INR APTT Fibrinogen Heparin Anti-Xa Level POC ABG pH 7.490 H POC ABG pCO2 POC ABG pO2 131 H POC Potassium POC Chloride Sodium Potassium Chloride Carbon Dioxide POC BUN BUN Creatinine Glucose POC Glucose 125 H Calcium Magnesium AST Alkaline Phosphatase Lactate Dehydrogenase Total Creatine Kinase Total Protein Albumin Urine WBC (Auto) Crossmatch 06/18/16 06/19/16 06/19/16 21:10 07:07 07:28 WBC 13.6 H RBC 2.17 L Hgb 6.5 L POC Hgb Hct 18.8 L* POC Hct MCH MCHC 35 H RDW Plt Count 131 L Lymph % (Auto) 10.[address] % (Auto) 9.3 H Lymph # Lane # 1.3 H Baso # Seg Neutrophils % 79.7 H Seg Neuts % (Manual) Lymphocytes % (Manual) Monocytes % (Manual) Nucleated RBC % Seg Neutrophils # 10.8 H Seg Neutrophils # Man Lymphocytes # (Manual) Monocytes # (Manual) PT INR APTT Fibrinogen Heparin Anti-Xa Level 0.75 H POC ABG pH POC ABG pCO2 POC ABG pO2 POC Potassium POC Chloride Sodium Potassium 3.5 L Chloride Carbon Dioxide POC BUN BUN Creatinine Glucose 104 H POC Glucose Calcium 7.6 L Magnesium 1.4 L AST Alkaline Phosphatase Lactate Dehydrogenase Total Creatine Kinase Total Protein Albumin Urine WBC (Auto) Crossmatch 06/20/16 06/20/16 06/20/16 04:15 18:15 18:15 WBC 16.6 H RBC 1.19 L Hgb 9.2 L 3.5 L* D POC Hgb Hct 27.5 L D 11.0 L* D POC Hct MCH MCHC RDW Plt Count 138 L Lymph % (Auto) Lane % (Auto) Lymph # Lane # Baso # Seg Neutrophils % Seg Neuts % (Manual) Lymphocytes % (Manual) Monocytes % (Manual) Nucleated RBC % Seg Neutrophils # Seg Neutrophils # Man Lymphocytes # (Manual) Monocytes # (Manual) PT INR APTT Fibrinogen Heparin Anti-Xa Level POC ABG pH POC ABG pCO2 POC ABG pO2 POC Potassium POC Chloride Sodium 146 H Potassium Chloride Carbon Dioxide 14 L D POC BUN BUN Creatinine Glucose 31 L* POC Glucose Calcium 6.7 L Magnesium AST Alkaline Phosphatase Lactate Dehydrogenase Total Creatine Kinase Total Protein Albumin Urine WBC (Auto) Crossmatch 06/20/16 06/20/16 06/20/16 18:15 19:33 19:36 WBC RBC Hgb POC Hgb Hct POC Hct MCH MCHC RDW Plt Count Lymph % (Auto) Lane % (Auto) Lymph # Lane # Baso # Seg Neutrophils % Seg Neuts % (Manual) Lymphocytes % (Manual) Monocytes % (Manual) Nucleated RBC % Seg Neutrophils # Seg Neutrophils # Man Lymphocytes # (Manual) Monocytes # (Manual) PT INR APTT Fibrinogen Heparin Anti-Xa Level POC ABG pH POC ABG pCO2 26.3 L POC ABG pO2 394 H POC Potassium POC Chloride Sodium Potassium Chloride Carbon Dioxide POC BUN BUN Creatinine Glucose POC Glucose 212 H Calcium Magnesium AST Alkaline Phosphatase Lactate Dehydrogenase Total Creatine Kinase Total Protein Albumin Urine WBC (Auto) Crossmatch See Detail 06/20/16 06/20/16 06/21/16 22:01 23:00 00:35 WBC RBC Hgb POC Hgb Hct POC Hct MCH MCHC RDW Plt Count Lymph % (Auto) Lane % (Auto) Lymph # Lane # Baso # Seg Neutrophils % Seg Neuts % (Manual) Lymphocytes % (Manual) Monocytes % (Manual) Nucleated RBC % Seg Neutrophils # Seg Neutrophils # Man Lymphocytes # (Manual) Monocytes # (Manual) PT 21.3 H INR 1.85 H APTT 48.4 H Fibrinogen Heparin Anti-Xa Level POC ABG pH POC ABG pCO2 POC ABG pO2 POC Potassium POC Chloride Sodium Potassium Chloride Carbon Dioxide POC BUN BUN Creatinine Glucose POC Glucose 149 H 147 H Calcium Magnesium AST Alkaline Phosphatase Lactate Dehydrogenase Total Creatine Kinase Total Protein Albumin Urine WBC (Auto) Crossmatch 06/21/16 06/21/16 06/21/16 04:30 04:30 06:01 WBC 21.7 H RBC 3.58 L Hgb POC Hgb Hct POC Hct MCH MCHC 35 H RDW Plt Count 116 L Lymph % (Auto) Lane % (Auto) Lymph # Lane # Baso # Seg Neutrophils % Seg Neuts % (Manual) Lymphocytes % (Manual) 8.0 L Monocytes % (Manual) Nucleated RBC % 3.0 H Seg Neutrophils # Seg Neutrophils # Man 13.7 H Lymphocytes # (Manual) Monocytes # (Manual) 1.5 H PT INR APTT Fibrinogen Heparin Anti-Xa Level POC ABG pH 7.541 H POC ABG pCO2 21.1 L POC ABG pO2 108 H POC Potassium POC Chloride Sodium Potassium 3.0 L Chloride 110.3 H Carbon Dioxide 18 L POC BUN BUN 18 H Creatinine Glucose 141 H POC Glucose Calcium 6.4 L Magnesium AST Alkaline Phosphatase Lactate Dehydrogenase Total Creatine Kinase Total Protein Albumin Urine WBC (Auto) Crossmatch 06/21/16 06/21/16 06/21/16 07:00 10:02 17:51 WBC RBC Hgb 8.3 L POC Hgb Hct 24.7 L D POC Hct MCH MCHC RDW Plt Count Lymph % (Auto) Lane % (Auto) Lymph # Lane # Baso # Seg Neutrophils % Seg Neuts % (Manual) Lymphocytes % (Manual) Monocytes % (Manual) Nucleated RBC % Seg Neutrophils # Seg Neutrophils # Man Lymphocytes # (Manual) Monocytes # (Manual) PT INR APTT Fibrinogen Heparin Anti-Xa Level POC ABG pH POC ABG pCO2 POC ABG pO2 POC Potassium POC Chloride Sodium Potassium Chloride Carbon Dioxide POC BUN BUN Creatinine Glucose POC Glucose 132 H 106 H Calcium Magnesium AST Alkaline Phosphatase Lactate Dehydrogenase Total Creatine Kinase Total Protein Albumin Urine WBC (Auto) Crossmatch 06/22/16 06/22/16 06/22/16 05:00 05:00 06:40 WBC 20.6 H RBC 3.54 L Hgb POC Hgb Hct POC Hct MCH MCHC RDW Plt Count 129 L Lymph % (Auto) Lane % (Auto) Lymph # Lane # Baso # Seg Neutrophils % Seg Neuts % (Manual) 87.0 H Lymphocytes % (Manual) 4.0 L Monocytes % (Manual) Nucleated RBC % 4.0 H Seg Neutrophils # Seg Neutrophils # Man 17.9 H Lymphocytes # (Manual) 0.8 L Monocytes # (Manual) 1.2 H PT INR APTT Fibrinogen Heparin Anti-Xa Level POC ABG pH POC ABG pCO2 21.9 L POC ABG pO2 118 H POC Potassium POC Chloride Sodium Potassium Chloride 109.9 H Carbon Dioxide 15 L POC BUN BUN 26 H Creatinine 2.2 H D Glucose POC Glucose Calcium 6.3 L Magnesium AST Alkaline Phosphatase Lactate Dehydrogenase Total Creatine Kinase Total Protein Albumin Urine WBC (Auto) Crossmatch 06/22/16 06/22/16 06/22/16 09:15 09:15 23:17 WBC RBC Hgb 9.1 L POC Hgb Hct 26.9 L POC Hct MCH MCHC RDW Plt Count 116 L Lymph % (Auto) Lane % (Auto) Lymph # Lane # Baso # Seg Neutrophils % Seg Neuts % (Manual) Lymphocytes % (Manual) Monocytes % (Manual) Nucleated RBC % Seg Neutrophils # Seg Neutrophils # Man Lymphocytes # (Manual) Monocytes # (Manual) PT 15.8 H INR 1.27 H APTT Fibrinogen Heparin Anti-Xa Level POC ABG pH POC ABG pCO2 POC ABG pO2 POC Potassium POC Chloride Sodium Potassium Chloride Carbon Dioxide POC BUN BUN Creatinine Glucose POC Glucose 134 H Calcium Magnesium AST Alkaline Phosphatase Lactate Dehydrogenase Total Creatine Kinase Total Protein Albumin Urine WBC (Auto) Crossmatch 06/23/16 06/23/16 06/23/16 05:43 05:43 09:44 WBC 13.8 H RBC 2.70 L Hgb 8.1 L POC Hgb Hct 24.2 L POC Hct MCH MCHC RDW Plt Count 93 L Lymph % (Auto) 6.[address] % (Auto) Lymph # 0.[address] # Baso # Seg Neutrophils % 89.2 H Seg Neuts % (Manual) Lymphocytes % (Manual) Monocytes % (Manual) Nucleated RBC % Seg Neutrophils # 12.3 H Seg Neutrophils # Man Lymphocytes # (Manual) Monocytes # (Manual) PT INR APTT Fibrinogen Heparin Anti-Xa Level POC ABG pH 7.593 H POC ABG pCO2 26.8 L POC ABG pO2 141 H POC Potassium POC Chloride Sodium 146 H Potassium Chloride Carbon Dioxide POC BUN BUN 32 H Creatinine 2.6 H Glucose 142 H POC Glucose Calcium 7.0 L Magnesium AST Alkaline Phosphatase Lactate Dehydrogenase Total Creatine Kinase Total Protein Albumin Urine WBC (Auto) Crossmatch 06/23/16 06/23/16 06/23/16 11:23 17:42 23:32 WBC RBC Hgb POC Hgb Hct POC Hct MCH MCHC RDW Plt Count Lymph % (Auto) Lane % (Auto) Lymph # Lane # Baso # Seg Neutrophils % Seg Neuts % (Manual) Lymphocytes % (Manual) Monocytes % (Manual) Nucleated RBC % Seg Neutrophils # Seg Neutrophils # Man Lymphocytes # (Manual) Monocytes # (Manual) PT INR APTT Fibrinogen Heparin Anti-Xa Level POC ABG pH POC ABG pCO2 POC ABG pO2 POC Potassium POC Chloride Sodium Potassium Chloride Carbon Dioxide POC BUN BUN Creatinine Glucose POC Glucose 138 H 133 H 111 H Calcium Magnesium AST Alkaline Phosphatase Lactate Dehydrogenase Total Creatine Kinase Total Protein Albumin Urine WBC (Auto) Crossmatch 06/24/16 06/24/16 06/24/16 06:27 08:10 08:10 WBC 16.6 H RBC 2.91 L Hgb 8.9 L POC Hgb Hct 26.4 L POC Hct MCH MCHC RDW 15.6 H Plt Count 115 L Lymph % (Auto) 4.[address] % (Auto) Lymph # 0.[address] # 1[address]0 H Baso # Seg Neutrophils % 89.2 H Seg Neuts % (Manual) Lymphocytes % (Manual) Monocytes % (Manual) Nucleated RBC % Seg Neutrophils # 14.9 H Seg Neutrophils # Man Lymphocytes # (Manual) Monocytes # (Manual) PT INR APTT Fibrinogen Heparin Anti-Xa Level POC ABG pH POC ABG pCO2 POC ABG pO2 POC Potassium POC Chloride Sodium 146 H Potassium Chloride Carbon Dioxide POC BUN BUN 37 H Creatinine 2.9 H Glucose POC Glucose 109 H Calcium 7.5 L Magnesium AST Alkaline Phosphatase Lactate Dehydrogenase Total Creatine Kinase Total Protein Albumin Urine WBC (Auto) Crossmatch 06/24/16 06/24/16 06/24/16 12:05 17:57 22:13 WBC RBC Hgb POC Hgb Hct POC Hct MCH MCHC RDW Plt Count Lymph % (Auto) Lane % (Auto) Lymph # Lane # Baso # Seg Neutrophils % Seg Neuts % (Manual) Lymphocytes % (Manual) Monocytes % (Manual) Nucleated RBC % Seg Neutrophils # Seg Neutrophils # Man Lymphocytes # (Manual) Monocytes # (Manual) PT INR APTT Fibrinogen Heparin Anti-Xa Level POC ABG pH POC ABG pCO2 POC ABG pO2 POC Potassium POC Chloride Sodium Potassium Chloride Carbon Dioxide POC BUN BUN Creatinine Glucose POC Glucose 117 H 124 H 116 H Calcium Magnesium AST Alkaline Phosphatase Lactate Dehydrogenase Total Creatine Kinase Total Protein Albumin Urine WBC (Auto) Crossmatch 06/25/16 06/25/16 06/25/16 06:42 06:49 12:14 WBC RBC Hgb POC Hgb Hct POC Hct MCH MCHC RDW Plt Count Lymph % (Auto) Lane % (Auto) Lymph # Lane # Baso # Seg Neutrophils % Seg Neuts % (Manual) Lymphocytes % (Manual) Monocytes % (Manual) Nucleated RBC % Seg Neutrophils # Seg Neutrophils # Man Lymphocytes # (Manual) Monocytes # (Manual) PT INR APTT Fibrinogen Heparin Anti-Xa Level POC ABG pH POC ABG pCO2 POC ABG pO2 POC Potassium POC Chloride Sodium Potassium Chloride Carbon Dioxide POC BUN BUN 46 H Creatinine 3.6 H Glucose 133 H POC Glucose 137 H 136 H Calcium 7.4 L Magnesium AST Alkaline Phosphatase Lactate Dehydrogenase Total Creatine Kinase Total Protein Albumin Urine WBC (Auto) Crossmatch 06/25/16 06/25/16 06/26/16 16:07 21:32 05:55 WBC RBC Hgb POC Hgb Hct POC Hct MCH MCHC RDW Plt Count Lymph % (Auto) Lane % (Auto) Lymph # Lane # Baso # Seg Neutrophils % Seg Neuts % (Manual) Lymphocytes % (Manual) Monocytes % (Manual) Nucleated RBC % Seg Neutrophils # Seg Neutrophils # Man Lymphocytes # (Manual) Monocytes # (Manual) PT INR APTT Fibrinogen Heparin Anti-Xa Level POC ABG pH POC ABG pCO2 POC ABG pO2 POC Potassium POC Chloride Sodium Potassium Chloride Carbon Dioxide 20 L POC BUN BUN 55 H Creatinine 4.2 H Glucose 120 H POC Glucose 146 H 146 H Calcium 7.5 L Magnesium AST Alkaline Phosphatase Lactate Dehydrogenase Total Creatine Kinase Total Protein Albumin Urine WBC (Auto) Crossmatch 06/26/16 06/26/16 06/26/16 06:30 11:38 16:45 WBC RBC Hgb POC Hgb Hct POC Hct MCH MCHC RDW Plt Count Lymph % (Auto) Lane % (Auto) Lymph # Lane # Baso # Seg Neutrophils % Seg Neuts % (Manual) Lymphocytes % (Manual) Monocytes % (Manual) Nucleated RBC % Seg Neutrophils # Seg Neutrophils # Man Lymphocytes # (Manual) Monocytes # (Manual) PT INR APTT Fibrinogen Heparin Anti-Xa Level POC ABG pH POC ABG pCO2 POC ABG pO2 POC Potassium POC Chloride Sodium Potassium Chloride Carbon Dioxide POC BUN BUN Creatinine Glucose POC Glucose 128 H 143 H 121 H Calcium Magnesium AST Alkaline Phosphatase Lactate Dehydrogenase Total Creatine Kinase Total Protein Albumin Urine WBC (Auto) Crossmatch 06/26/16 06/26/16 06/27/16 22:57 22:57 00:47 WBC RBC Hgb 8.4 L POC Hgb Hct 25.1 L POC Hct MCH MCHC RDW Plt Count Lymph % (Auto) Lane % (Auto) Lymph # Lane # Baso # Seg Neutrophils % Seg Neuts % (Manual) Lymphocytes % (Manual) Monocytes % (Manual) Nucleated RBC % Seg Neutrophils # Seg Neutrophils # Man Lymphocytes # (Manual) Monocytes # (Manual) PT 19.9 H INR 1.69 H APTT Fibrinogen Heparin Anti-Xa Level POC ABG pH POC ABG pCO2 POC ABG pO2 POC Potassium POC Chloride Sodium Potassium Chloride Carbon Dioxide POC BUN BUN Creatinine Glucose POC Glucose 110 H Calcium Magnesium AST Alkaline Phosphatase Lactate Dehydrogenase Total Creatine Kinase Total Protein Albumin Urine WBC (Auto) Crossmatch 06/27/16 06/27/16 06/27/16 05:43 05:43 06:40 WBC RBC Hgb POC Hgb Hct POC Hct MCH MCHC RDW Plt Count Lymph % (Auto) Lane % (Auto) Lymph # Lane # Baso # Seg Neutrophils % Seg Neuts % (Manual) Lymphocytes % (Manual) Monocytes % (Manual) Nucleated RBC % Seg Neutrophils # Seg Neutrophils # Man Lymphocytes # (Manual) Monocytes # (Manual) PT INR APTT Fibrinogen Heparin Anti-Xa Level 2.00 H POC ABG pH POC ABG pCO2 POC ABG pO2 POC Potassium POC Chloride Sodium Potassium Chloride Carbon Dioxide 20 L POC BUN BUN 58 H Creatinine 4.8 H Glucose POC Glucose 109 H Calcium 8.1 L Magnesium AST Alkaline Phosphatase Lactate Dehydrogenase Total Creatine Kinase Total Protein Albumin Urine WBC (Auto) Crossmatch 06/27/16 06/27/16 06/27/16 08:15 16:46 17:47 WBC RBC Hgb POC Hgb Hct POC Hct MCH MCHC RDW Plt Count Lymph % (Auto) Lane % (Auto) Lymph # Lane # Baso # Seg Neutrophils % Seg Neuts % (Manual) Lymphocytes % (Manual) Monocytes % (Manual) Nucleated RBC % Seg Neutrophils # Seg Neutrophils # Man Lymphocytes # (Manual) Monocytes # (Manual) PT INR APTT Fibrinogen Heparin Anti-Xa Level > 2.00 H 1.87 H POC ABG pH POC ABG pCO2 POC ABG pO2 POC Potassium POC Chloride Sodium Potassium Chloride Carbon Dioxide POC BUN BUN Creatinine Glucose POC Glucose 231 H Calcium Magnesium AST Alkaline Phosphatase Lactate Dehydrogenase Total Creatine Kinase Total Protein Albumin Urine WBC (Auto) Crossmatch 06/27/16 06/27/16 06/28/16 21:23 23:54 06:27 WBC RBC Hgb POC Hgb Hct POC Hct MCH MCHC RDW Plt Count Lymph % (Auto) Lane % (Auto) Lymph # Lane # Baso # Seg Neutrophils % Seg Neuts % (Manual) Lymphocytes % (Manual) Monocytes % (Manual) Nucleated RBC % Seg Neutrophils # Seg Neutrophils # Man Lymphocytes # (Manual) Monocytes # (Manual) PT INR APTT Fibrinogen Heparin Anti-Xa Level 1.70 H POC ABG pH POC ABG pCO2 POC ABG pO2 POC Potassium POC Chloride Sodium Potassium Chloride Carbon Dioxide POC BUN BUN 62 H Creatinine 4.5 H Glucose 111 H POC Glucose 122 H Calcium 8.3 L Magnesium AST Alkaline Phosphatase Lactate Dehydrogenase Total Creatine Kinase Total Protein Albumin Urine WBC (Auto) Crossmatch 06/28/16 06/28/16 06/28/16 06:27 11:47 14:14 WBC RBC Hgb 7.7 L POC Hgb Hct 22.9 L POC Hct MCH MCHC RDW Plt Count Lymph % (Auto) Lane % (Auto) Lymph # Lane # Baso # Seg Neutrophils % Seg Neuts % (Manual) Lymphocytes % (Manual) Monocytes % (Manual) Nucleated RBC % Seg Neutrophils # Seg Neutrophils # Man Lymphocytes # (Manual) Monocytes # (Manual) PT INR APTT Fibrinogen Heparin Anti-Xa Level POC ABG pH 7.461 H POC ABG pCO2 31.9 L POC ABG pO2 73 L POC Potassium POC Chloride Sodium Potassium Chloride Carbon Dioxide POC BUN BUN Creatinine Glucose POC Glucose 155 H Calcium Magnesium AST Alkaline Phosphatase Lactate Dehydrogenase Total Creatine Kinase Total Protein Albumin Urine WBC (Auto) Crossmatch 06/28/16 06/28/16 06/28/16 16:27 20:47 22:59 WBC RBC Hgb POC Hgb Hct POC Hct MCH MCHC RDW Plt Count Lymph % (Auto) Lane % (Auto) Lymph # Lane # Baso # Seg Neutrophils % Seg Neuts % (Manual) Lymphocytes % (Manual) Monocytes % (Manual) Nucleated RBC % Seg Neutrophils # Seg Neutrophils # Man Lymphocytes # (Manual) Monocytes # (Manual) PT INR APTT Fibrinogen Heparin Anti-Xa Level 1.16 H POC ABG pH POC ABG pCO2 POC ABG pO2 POC Potassium POC Chloride Sodium Potassium Chloride Carbon Dioxide POC BUN BUN Creatinine Glucose POC Glucose 193 H 126 H Calcium Magnesium AST Alkaline Phosphatase Lactate Dehydrogenase Total Creatine Kinase Total Protein Albumin Urine WBC (Auto) Crossmatch 06/29/16 06/29/16 06/29/16 05:51 09:10 09:10 WBC RBC Hgb POC Hgb Hct POC Hct MCH MCHC RDW Plt Count Lymph % (Auto) Lane % (Auto) Lymph # Lane # Baso # Seg Neutrophils % Seg Neuts % (Manual) Lymphocytes % (Manual) Monocytes % (Manual) Nucleated RBC % Seg Neutrophils # Seg Neutrophils # Man Lymphocytes # (Manual) Monocytes # (Manual) PT INR APTT Fibrinogen Heparin Anti-Xa Level 0.92 H POC ABG pH POC ABG pCO2 POC ABG pO2 POC Potassium POC Chloride Sodium Potassium Chloride Carbon Dioxide POC BUN BUN 53 H Creatinine 3.7 H Glucose 139 H POC Glucose 121 H Calcium 8.2 L Magnesium AST Alkaline Phosphatase Lactate Dehydrogenase Total Creatine Kinase Total Protein Albumin Urine WBC (Auto) Crossmatch 06/29/16 06/30/16 06/30/16 21:22 05:09 08:07 WBC RBC Hgb 7.3 L POC Hgb Hct 21.9 L POC Hct MCH MCHC RDW Plt Count Lymph % (Auto) Lane % (Auto) Lymph # Lane # Baso # Seg Neutrophils % Seg Neuts % (Manual) Lymphocytes % (Manual) Monocytes % (Manual) Nucleated RBC % Seg Neutrophils # Seg Neutrophils # Man Lymphocytes # (Manual) Monocytes # (Manual) PT INR APTT Fibrinogen Heparin Anti-Xa Level POC ABG pH POC ABG pCO2 POC ABG pO2 POC Potassium POC Chloride Sodium Potassium Chloride Carbon Dioxide POC BUN BUN Creatinine Glucose POC Glucose 108 H 106 H Calcium Magnesium AST Alkaline Phosphatase Lactate Dehydrogenase Total Creatine Kinase Total Protein Albumin Urine WBC (Auto) Crossmatch 06/30/16 06/30/16 06/30/16 10:48 12:13 16:48 WBC RBC Hgb POC Hgb Hct POC Hct MCH MCHC RDW Plt Count Lymph % (Auto) Lane % (Auto) Lymph # Lane # Baso # Seg Neutrophils % Seg Neuts % (Manual) Lymphocytes % (Manual) Monocytes % (Manual) Nucleated RBC % Seg Neutrophils # Seg Neutrophils # Man Lymphocytes # (Manual) Monocytes # (Manual) PT INR APTT Fibrinogen Heparin Anti-Xa Level POC ABG pH POC ABG pCO2 POC ABG pO2 POC Potassium POC Chloride Sodium Potassium Chloride Carbon Dioxide POC BUN BUN 46 H Creatinine 3.0 H Glucose POC Glucose 153 H 152 H Calcium Magnesium AST Alkaline Phosphatase Lactate Dehydrogenase Total Creatine Kinase Total Protein Albumin Urine WBC (Auto) Crossmatch 06/30/16 07/01/16 07/01/16 21:47 05:47 07:44 WBC 19.8 H RBC 2.45 L Hgb 7.2 L POC Hgb Hct 22.2 L POC Hct MCH MCHC RDW Plt Count 481 H Lymph % (Auto) 5.[address] % (Auto) Lymph # 1.[address] # 1[address]4 H Baso # Seg Neutrophils % 86.8 H Seg Neuts % (Manual) Lymphocytes % (Manual) Monocytes % (Manual) Nucleated RBC % Seg Neutrophils # 17.1 H Seg Neutrophils # Man Lymphocytes # (Manual) Monocytes # (Manual) PT INR APTT Fibrinogen Heparin Anti-Xa Level POC ABG pH POC ABG pCO2 POC ABG pO2 POC Potassium POC Chloride Sodium Potassium Chloride Carbon Dioxide POC BUN BUN Creatinine Glucose POC Glucose 162 H 124 H Calcium Magnesium AST Alkaline Phosphatase Lactate Dehydrogenase Total Creatine Kinase Total Protein Albumin Urine WBC (Auto) Crossmatch 07/01/16 07/01/16 07/01/16 07:44 11:55 16:16 WBC RBC Hgb POC Hgb Hct POC Hct MCH MCHC RDW Plt Count Lymph % (Auto) Lane % (Auto) Lymph # Lane # Baso # Seg Neutrophils % Seg Neuts % (Manual) Lymphocytes % (Manual) Monocytes % (Manual) Nucleated RBC % Seg Neutrophils # Seg Neutrophils # Man Lymphocytes # (Manual) Monocytes # (Manual) PT INR APTT Fibrinogen Heparin Anti-Xa Level POC ABG pH POC ABG pCO2 POC ABG pO2 POC Potassium POC Chloride Sodium Potassium 3.1 L Chloride Carbon Dioxide POC BUN BUN 38 H Creatinine 2.2 H Glucose 114 H POC Glucose 114 H 143 H Calcium Magnesium AST Alkaline Phosphatase Lactate Dehydrogenase Total Creatine Kinase Total Protein Albumin Urine WBC (Auto) Crossmatch 07/01/16 07/02/16 07/02/16 21:42 05:40 06:46 WBC 18.1 H RBC 2.45 L Hgb 7.3 L POC Hgb Hct 21.8 L POC Hct MCH MCHC RDW Plt Count 490 H Lymph % (Auto) 6.[address] % (Auto) Lymph # 1.[address] # 1[address]1 H Baso # 0.2 H Seg Neutrophils % 86.0 H Seg Neuts % (Manual) Lymphocytes % (Manual) Monocytes % (Manual) Nucleated RBC % Seg Neutrophils # 15.6 H Seg Neutrophils # Man Lymphocytes # (Manual) Monocytes # (Manual) PT INR APTT Fibrinogen Heparin Anti-Xa Level POC ABG pH POC ABG pCO2 POC ABG pO2 POC Potassium POC Chloride Sodium Potassium Chloride Carbon Dioxide POC BUN BUN Creatinine Glucose POC Glucose 135 H 135 H Calcium Magnesium AST Alkaline Phosphatase Lactate Dehydrogenase Total Creatine Kinase Total Protein Albumin Urine WBC (Auto) Crossmatch 07/02/16 07/02/16 07/02/16 06:46 06:49 11:23 WBC RBC Hgb POC Hgb Hct POC Hct MCH MCHC RDW Plt Count Lymph % (Auto) Lane % (Auto) Lymph # Lane # Baso # Seg Neutrophils % Seg Neuts % (Manual) Lymphocytes % (Manual) Monocytes % (Manual) Nucleated RBC % Seg Neutrophils # Seg Neutrophils # Man Lymphocytes # (Manual) Monocytes # (Manual) PT INR APTT Fibrinogen Heparin Anti-Xa Level POC ABG pH POC ABG pCO2 POC ABG pO2 POC Potassium POC Chloride Sodium Potassium 2.8 L* Chloride Carbon Dioxide POC BUN BUN 30 H Creatinine 1.8 H Glucose 121 H POC Glucose 121 H Calcium 8.1 L Magnesium 1.3 L AST Alkaline Phosphatase Lactate Dehydrogenase Total Creatine Kinase Total Protein Albumin Urine WBC (Auto) Crossmatch 07/02/16 07/02/16 07/03/16 17:02 21:31 05:35 WBC RBC Hgb POC Hgb Hct POC Hct MCH MCHC RDW Plt Count Lymph % (Auto) Lane % (Auto) Lymph # Lane # Baso # Seg Neutrophils % Seg Neuts % (Manual) Lymphocytes % (Manual) Monocytes % (Manual) Nucleated RBC % Seg Neutrophils # Seg Neutrophils # Man Lymphocytes # (Manual) Monocytes # (Manual) PT INR APTT Fibrinogen Heparin Anti-Xa Level POC ABG pH POC ABG pCO2 POC ABG pO2 POC Potassium POC Chloride Sodium Potassium Chloride Carbon Dioxide POC BUN BUN Creatinine Glucose POC Glucose 121 H 159 H 149 H Calcium Magnesium AST Alkaline Phosphatase Lactate Dehydrogenase Total Creatine Kinase Total Protein Albumin Urine WBC (Auto) Crossmatch 07/03/16 07/03/16 07/03/16 06:45 06:45 06:45 WBC 16.8 H RBC 2.21 L Hgb 6.5 L POC Hgb Hct 19.4 L* POC Hct MCH MCHC RDW Plt Count 503 H Lymph % (Auto) 6.[address] % (Auto) Lymph # 1.[address] # 1[address]1 H Baso # Seg Neutrophils % 85.6 H Seg Neuts % (Manual) Lymphocytes % (Manual) Monocytes % (Manual) Nucleated RBC % Seg Neutrophils # 14.4 H Seg Neutrophils # Man Lymphocytes # (Manual) Monocytes # (Manual) PT INR APTT Fibrinogen Heparin Anti-Xa Level POC ABG pH POC ABG pCO2 POC ABG pO2 POC Potassium POC Chloride Sodium Potassium 2.9 L* Chloride Carbon Dioxide POC BUN BUN 21 H Creatinine 1.6 H Glucose 126 H POC Glucose Calcium 8.0 L Magnesium 1.6 L AST Alkaline Phosphatase Lactate Dehydrogenase Total Creatine Kinase Total Protein Albumin Urine WBC (Auto) Crossmatch 07/03/16 07/03/16 07/03/16 12:54 19:00 20:01 WBC RBC Hgb POC Hgb Hct POC Hct MCH MCHC RDW Plt Count Lymph % (Auto) Lane % (Auto) Lymph # Lane # Baso # Seg Neutrophils % Seg Neuts % (Manual) Lymphocytes % (Manual) Monocytes % (Manual) Nucleated RBC % Seg Neutrophils # Seg Neutrophils # Man Lymphocytes # (Manual) Monocytes # (Manual) PT INR APTT Fibrinogen Heparin Anti-Xa Level POC ABG pH 7.302 L POC ABG pCO2 49.8 H POC ABG pO2 422 H POC Potassium POC Chloride Sodium Potassium Chloride Carbon Dioxide POC BUN BUN Creatinine Glucose POC Glucose 129 H Calcium Magnesium AST Alkaline Phosphatase Lactate Dehydrogenase Total Creatine Kinase Total Protein Albumin Urine WBC (Auto) Crossmatch See Detail 07/03/16 07/04/16 07/04/16 23:09 04:30 04:30 WBC 19.6 H RBC 3.21 L Hgb 9.4 L POC Hgb Hct 28.2 L POC Hct MCH MCHC RDW Plt Count Lymph % (Auto) 6.[address] % (Auto) Lymph # Lane # 1.2 H Baso # Seg Neutrophils % 86.4 H Seg Neuts % (Manual) Lymphocytes % (Manual) Monocytes % (Manual) Nucleated RBC % Seg Neutrophils # 16.9 H Seg Neutrophils # Man Lymphocytes # (Manual) Monocytes # (Manual) PT INR APTT Fibrinogen Heparin Anti-Xa Level POC ABG pH POC ABG pCO2 POC ABG pO2 POC Potassium POC Chloride Sodium Potassium 3.5 L D Chloride 111.2 H Carbon Dioxide 20 L POC BUN BUN 18 H Creatinine Glucose POC Glucose 111 H Calcium 7.0 L Magnesium AST Alkaline Phosphatase Lactate Dehydrogenase Total Creatine Kinase Total Protein Albumin Urine WBC (Auto) Crossmatch 07/04/16 07/04/16 07/04/16 05:44 12:50 14:33 WBC RBC Hgb POC Hgb Hct POC Hct MCH MCHC RDW Plt Count Lymph % (Auto) Lane % (Auto) Lymph # Lane # Baso # Seg Neutrophils % Seg Neuts % (Manual) Lymphocytes % (Manual) Monocytes % (Manual) Nucleated RBC % Seg Neutrophils # Seg Neutrophils # Man Lymphocytes # (Manual) Monocytes # (Manual) PT INR APTT Fibrinogen Heparin Anti-Xa Level POC ABG pH 7.465 H 7.468 H POC ABG pCO2 29.5 L 29.1 L 33.1 L POC ABG pO2 110 H 39 L POC Potassium POC Chloride Sodium Potassium Chloride Carbon Dioxide POC BUN BUN Creatinine Glucose POC Glucose Calcium Magnesium AST Alkaline Phosphatase Lactate Dehydrogenase Total Creatine Kinase Total Protein Albumin Urine WBC (Auto) Crossmatch 07/04/16 07/05/16 07/05/16 16:49 00:20 04:19 WBC 16.2 H RBC 3.44 L Hgb POC Hgb Hct POC Hct MCH MCHC RDW Plt Count Lymph % (Auto) 5.[address] % (Auto) 7.5 H Lymph # 0.[address] # 1[address]2 H Baso # Seg Neutrophils % 86.5 H Seg Neuts % (Manual) Lymphocytes % (Manual) Monocytes % (Manual) Nucleated RBC % Seg Neutrophils # 14.0 H Seg Neutrophils # Man Lymphocytes # (Manual) Monocytes # (Manual) PT INR APTT Fibrinogen Heparin Anti-Xa Level POC ABG pH POC ABG pCO2 31.1 L POC ABG pO2 110 H POC Potassium POC Chloride Sodium Potassium Chloride Carbon Dioxide POC BUN BUN Creatinine Glucose POC Glucose 168 H Calcium Magnesium AST Alkaline Phosphatase Lactate Dehydrogenase Total Creatine Kinase Total Protein Albumin Urine WBC (Auto) Crossmatch 07/05/16 07/05/16 07/05/16 04:19 06:01 09:54 WBC RBC Hgb POC Hgb Hct POC Hct MCH MCHC RDW Plt Count Lymph % (Auto) Lane % (Auto) Lymph # Lane # Baso # Seg Neutrophils % Seg Neuts % (Manual) Lymphocytes % (Manual) Monocytes % (Manual) Nucleated RBC % Seg Neutrophils # Seg Neutrophils # Man Lymphocytes # (Manual) Monocytes # (Manual) PT INR APTT Fibrinogen Heparin Anti-Xa Level POC ABG pH POC ABG pCO2 POC ABG pO2 POC Potassium POC Chloride Sodium 146 H Potassium 3.5 L Chloride 109.1 H Carbon Dioxide POC BUN BUN Creatinine Glucose 135 H POC Glucose 146 H 284 H Calcium 7.8 L Magnesium AST Alkaline Phosphatase Lactate Dehydrogenase Total Creatine Kinase Total Protein Albumin Urine WBC (Auto) Crossmatch 07/05/16 07/06/16 07/06/16 13:35 04:40 04:40 WBC 17.7 H RBC 3.32 L Hgb 9.8 L POC Hgb Hct 29.8 L POC Hct MCH MCHC RDW Plt Count Lymph % (Auto) Lane % (Auto) Lymph # Lane # Baso # Seg Neutrophils % Seg Neuts % (Manual) 85.0 H Lymphocytes % (Manual) 4.0 L Monocytes % (Manual) 10.0 H Nucleated RBC % Seg Neutrophils # Seg Neutrophils # Man 15.0 H Lymphocytes # (Manual) 0.7 L Monocytes # (Manual) 1.8 H PT INR APTT Fibrinogen Heparin Anti-Xa Level POC ABG pH POC ABG pCO2 POC ABG pO2 POC Potassium POC Chloride Sodium Potassium 3.5 L Chloride Carbon Dioxide 21 L POC BUN BUN Creatinine Glucose 108 H POC Glucose 130 H Calcium 7.8 L Magnesium AST Alkaline Phosphatase Lactate Dehydrogenase Total Creatine Kinase Total Protein Albumin Urine WBC (Auto) Crossmatch 07/06/16 07/06/16 07/06/16 07:46 11:49 15:31 WBC RBC Hgb POC Hgb Hct POC Hct MCH MCHC RDW Plt Count Lymph % (Auto) Lane % (Auto) Lymph # Lane # Baso # Seg Neutrophils % Seg Neuts % (Manual) Lymphocytes % (Manual) Monocytes % (Manual) Nucleated RBC % Seg Neutrophils # Seg Neutrophils # Man Lymphocytes # (Manual) Monocytes # (Manual) PT INR APTT Fibrinogen Heparin Anti-Xa Level POC ABG pH POC ABG pCO2 POC ABG pO2 POC Potassium POC Chloride Sodium Potassium Chloride Carbon Dioxide POC BUN BUN Creatinine Glucose POC Glucose 149 H 146 H 135 H Calcium Magnesium AST Alkaline Phosphatase Lactate Dehydrogenase Total Creatine Kinase Total Protein Albumin Urine WBC (Auto) Crossmatch 07/06/16 07/06/16 07/07/16 17:17 20:59 04:53 WBC 15.5 H RBC 3.55 L Hgb POC Hgb Hct POC Hct MCH MCHC RDW Plt Count Lymph % (Auto) 4.[address] % (Auto) Lymph # 0.[address] # 0[address]9 H Baso # Seg Neutrophils % 87.9 H Seg Neuts % (Manual) Lymphocytes % (Manual) Monocytes % (Manual) Nucleated RBC % Seg Neutrophils # 13.7 H Seg Neutrophils # Man Lymphocytes # (Manual) Monocytes # (Manual) PT INR APTT Fibrinogen Heparin Anti-Xa Level POC ABG pH POC ABG pCO2 POC ABG pO2 POC Potassium POC Chloride Sodium Potassium Chloride Carbon Dioxide POC BUN BUN Creatinine Glucose POC Glucose 140 H Calcium Magnesium AST Alkaline Phosphatase Lactate Dehydrogenase Total Creatine Kinase Total Protein Albumin Urine WBC (Auto) 67.0 H Crossmatch 07/07/16 07/07/16 07/07/16 04:53 06:13 07:15 WBC RBC Hgb POC Hgb Hct POC Hct MCH MCHC RDW Plt Count Lymph % (Auto) Lane % (Auto) Lymph # Lane # Baso # Seg Neutrophils % Seg Neuts % (Manual) Lymphocytes % (Manual) Monocytes % (Manual) Nucleated RBC % Seg Neutrophils # Seg Neutrophils # Man Lymphocytes # (Manual) Monocytes # (Manual) PT INR APTT Fibrinogen Heparin Anti-Xa Level POC ABG pH POC ABG pCO2 POC ABG pO2 POC Potassium POC Chloride Sodium Potassium 3.4 L Chloride Carbon Dioxide POC BUN BUN Creatinine Glucose 104 H POC Glucose 122 H 134 H Calcium 8.0 L Magnesium AST Alkaline Phosphatase Lactate Dehydrogenase Total Creatine Kinase Total Protein Albumin Urine WBC (Auto) Crossmatch 07/07/16 07/07/16 07/07/16 08:06 08:06 10:31 WBC RBC Hgb POC Hgb Hct POC Hct MCH MCHC RDW Plt Count Lymph % (Auto) Lane % (Auto) Lymph # Lane # Baso # Seg Neutrophils % Seg Neuts % (Manual) Lymphocytes % (Manual) Monocytes % (Manual) Nucleated RBC % Seg Neutrophils # Seg Neutrophils # Man Lymphocytes # (Manual) Monocytes # (Manual) PT INR APTT Fibrinogen Heparin Anti-Xa Level POC ABG pH POC ABG pCO2 POC ABG pO2 POC Potassium POC Chloride Sodium Potassium Chloride Carbon Dioxide POC BUN BUN Creatinine Glucose 111 H POC Glucose 145 H Calcium 7.9 L Magnesium AST 53 H Alkaline Phosphatase 164 H Lactate Dehydrogenase Total Creatine Kinase Total Protein 6.2 L Albumin 1.4 L Urine WBC (Auto) Crossmatch See Detail 07/07/16 07/07/16 07/07/16 12:08 13:57 16:44 WBC RBC Hgb 9.7 L POC Hgb Hct 30.1 L POC Hct MCH MCHC RDW Plt Count Lymph % (Auto) Lane % (Auto) Lymph # Lane # Baso # Seg Neutrophils % Seg Neuts % (Manual) Lymphocytes % (Manual) Monocytes % (Manual) Nucleated RBC % Seg Neutrophils # Seg Neutrophils # Man Lymphocytes # (Manual) Monocytes # (Manual) PT INR APTT Fibrinogen Heparin Anti-Xa Level POC ABG pH POC ABG pCO2 POC ABG pO2 POC Potassium POC Chloride Sodium Potassium Chloride Carbon Dioxide POC BUN BUN Creatinine Glucose POC Glucose 159 H 173 H Calcium Magnesium AST Alkaline Phosphatase Lactate Dehydrogenase Total Creatine Kinase Total Protein Albumin Urine WBC (Auto) Crossmatch 07/07/16 07/08/16 07/08/16 23:31 07:27 12:16 WBC RBC Hgb POC Hgb Hct POC Hct MCH MCHC RDW Plt Count Lymph % (Auto) Lane % (Auto) Lymph # Lane # Baso # Seg Neutrophils % Seg Neuts % (Manual) Lymphocytes % (Manual) Monocytes % (Manual) Nucleated RBC % Seg Neutrophils # Seg Neutrophils # Man Lymphocytes # (Manual) Monocytes # (Manual) PT INR APTT Fibrinogen Heparin Anti-Xa Level POC ABG pH POC ABG pCO2 POC ABG pO2 POC Potassium POC Chloride Sodium Potassium Chloride Carbon Dioxide POC BUN BUN Creatinine Glucose POC Glucose 163 H 149 H 150 H Calcium Magnesium AST Alkaline Phosphatase Lactate Dehydrogenase Total Creatine Kinase Total Protein Albumin Urine WBC (Auto) Crossmatch 07/08/16 07/08/16 07/08/16 12:50 16:46 21:45 WBC RBC Hgb POC Hgb Hct POC Hct MCH MCHC RDW Plt Count Lymph % (Auto) Lane % (Auto) Lymph # Lane # Baso # Seg Neutrophils % Seg Neuts % (Manual) Lymphocytes % (Manual) Monocytes % (Manual) Nucleated RBC % Seg Neutrophils # Seg Neutrophils # Man Lymphocytes # (Manual) Monocytes # (Manual) PT INR APTT Fibrinogen Heparin Anti-Xa Level POC ABG pH POC ABG pCO2 POC ABG pO2 POC Potassium POC Chloride Sodium Potassium Chloride Carbon Dioxide 21 L POC BUN BUN Creatinine Glucose 126 H POC Glucose 143 H 134 H Calcium 7.5 L Magnesium AST Alkaline Phosphatase Lactate Dehydrogenase Total Creatine Kinase Total Protein Albumin Urine WBC (Auto) Crossmatch 07/09/16 07/09/16 07/09/16 07:31 07:31 08:07 WBC RBC Hgb POC Hgb Hct POC Hct MCH MCHC RDW Plt Count Lymph % (Auto) Lane % (Auto) Lymph # Lane # Baso # Seg Neutrophils % Seg Neuts % (Manual) Lymphocytes % (Manual) Monocytes % (Manual) Nucleated RBC % Seg Neutrophils # Seg Neutrophils # Man Lymphocytes # (Manual) Monocytes # (Manual) PT INR APTT Fibrinogen Heparin Anti-Xa Level POC ABG pH POC ABG pCO2 POC ABG pO2 POC Potassium POC Chloride Sodium Potassium Chloride Carbon Dioxide POC BUN BUN Creatinine Glucose 117 H POC Glucose 132 H Calcium 7.5 L Magnesium AST Alkaline Phosphatase 136 H Lactate Dehydrogenase 285 H Total Creatine Kinase 297 H Total Protein 5.4 L Albumin 1.5 L Urine WBC (Auto) Crossmatch 07/09/16 07/09/16 07/09/16 09:55 11:10 16:26 WBC 13.4 H RBC 1.95 L Hgb 5.8 L* D POC Hgb Hct 17.7 L* D POC Hct MCH MCHC RDW 15.5 H Plt Count Lymph % (Auto) 9.[address] Lane % (Auto) 8.3 H Lymph # Lane # 1.1 H Baso # Seg Neutrophils % 81.2 H Seg Neuts % (Manual) Lymphocytes % (Manual) Monocytes % (Manual) Nucleated RBC % Seg Neutrophils # 10.9 H Seg Neutrophils # Man Lymphocytes # (Manual) Monocytes # (Manual) PT INR APTT Fibrinogen Heparin Anti-Xa Level POC ABG pH POC ABG pCO2 POC ABG pO2 POC Potassium POC Chloride Sodium Potassium Chloride Carbon Dioxide POC BUN BUN Creatinine Glucose POC Glucose 240 H 113 H Calcium Magnesium AST Alkaline Phosphatase Lactate Dehydrogenase Total Creatine Kinase Total Protein Albumin Urine WBC (Auto) Crossmatch 07/09/16 07/10/16 07/10/16 21:45 04:10 09:03 WBC 15.1 H RBC 3.00 L Hgb 8.8 L D POC Hgb Hct 26.2 L D POC Hct MCH MCHC RDW 15.4 H Plt Count Lymph % (Auto) 8.[address] % (Auto) 8.4 H Lymph # Lane # 1.3 H Baso # Seg Neutrophils % 82.5 H Seg Neuts % (Manual) Lymphocytes % (Manual) Monocytes % (Manual) Nucleated RBC % Seg Neutrophils # 12.5 H Seg Neutrophils # Man Lymphocytes # (Manual) Monocytes # (Manual) PT INR APTT Fibrinogen Heparin Anti-Xa Level POC ABG pH POC ABG pCO2 POC ABG pO2 POC Potassium POC Chloride Sodium Potassium Chloride Carbon Dioxide POC BUN BUN Creatinine Glucose POC Glucose 113 H 122 H Calcium Magnesium AST Alkaline Phosphatase Lactate Dehydrogenase Total Creatine Kinase Total Protein Albumin Urine WBC (Auto) Crossmatch 07/10/16 07/10/16 07/10/16 11:38 15:36 21:45 WBC RBC Hgb POC Hgb Hct POC Hct MCH MCHC RDW Plt Count Lymph % (Auto) Lane % (Auto) Lymph # Lane # Baso # Seg Neutrophils % Seg Neuts % (Manual) Lymphocytes % (Manual) Monocytes % (Manual) Nucleated RBC % Seg Neutrophils # Seg Neutrophils # Man Lymphocytes # (Manual) Monocytes # (Manual) PT INR APTT Fibrinogen Heparin Anti-Xa Level POC ABG pH POC ABG pCO2 POC ABG pO2 POC Potassium POC Chloride Sodium Potassium Chloride Carbon Dioxide POC BUN BUN Creatinine Glucose POC Glucose 146 H 131 H 141 H Calcium Magnesium AST Alkaline Phosphatase Lactate Dehydrogenase Total Creatine Kinase Total Protein Albumin Urine WBC (Auto) Crossmatch 07/11/16 07/11/16 07/11/16 05:10 07:40 11:45 WBC RBC Hgb POC Hgb Hct POC Hct MCH MCHC RDW Plt Count Lymph % (Auto) Lane % (Auto) Lymph # Lane # Baso # Seg Neutrophils % Seg Neuts % (Manual) Lymphocytes % (Manual) Monocytes % (Manual) Nucleated RBC % Seg Neutrophils # Seg Neutrophils # Man Lymphocytes # (Manual) Monocytes # (Manual) PT INR APTT Fibrinogen Heparin Anti-Xa Level POC ABG pH POC ABG pCO2 POC ABG pO2 POC Potassium POC Chloride Sodium Potassium Chloride Carbon Dioxide POC BUN BUN Creatinine Glucose 107 H POC Glucose 114 H 116 H Calcium 7.7 L Magnesium AST 81 H Alkaline Phosphatase 153 H Lactate Dehydrogenase Total Creatine Kinase Total Protein 6.0 L Albumin 1.8 L Urine WBC (Auto) Crossmatch 07/11/16 07/11/16 07/12/16 16:22 19:45 08:39 WBC RBC Hgb POC Hgb Hct POC Hct MCH MCHC RDW Plt Count Lymph % (Auto) Lane % (Auto) Lymph # Lane # Baso # Seg Neutrophils % Seg Neuts % (Manual) Lymphocytes % (Manual) Monocytes % (Manual) Nucleated RBC % Seg Neutrophils # Seg Neutrophils # Man Lymphocytes # (Manual) Monocytes # (Manual) PT INR APTT Fibrinogen Heparin Anti-Xa Level POC ABG pH POC ABG pCO2 POC ABG pO2 POC Potassium POC Chloride Sodium Potassium Chloride Carbon Dioxide POC BUN BUN Creatinine Glucose POC Glucose 110 H 106 H 124 H Calcium Magnesium AST Alkaline Phosphatase Lactate Dehydrogenase Total Creatine Kinase Total Protein Albumin Urine WBC (Auto) Crossmatch 07/12/16 07/12/16 07/13/16 11:31 16:36 07:05 WBC 12.4 H RBC 2.93 L Hgb 8.5 L POC Hgb Hct 25.6 L POC Hct MCH MCHC RDW Plt Count Lymph % (Auto) 11.[address] % (Auto) 7.5 H Lymph # Lane # 0.9 H Baso # Seg Neutrophils % 80.6 H Seg Neuts % (Manual) Lymphocytes % (Manual) Monocytes % (Manual) Nucleated RBC % Seg Neutrophils # 10.0 H Seg Neutrophils # Man Lymphocytes # (Manual) Monocytes # (Manual) PT INR APTT Fibrinogen Heparin Anti-Xa Level POC ABG pH POC ABG pCO2 POC ABG pO2 POC Potassium POC Chloride Sodium Potassium Chloride Carbon Dioxide POC BUN BUN Creatinine Glucose POC Glucose 128 H 119 H Calcium Magnesium AST Alkaline Phosphatase Lactate Dehydrogenase Total Creatine Kinase Total Protein Albumin Urine WBC (Auto) Crossmatch 07/13/16 07/13/16 07/13/16 07:30 11:41 13:45 WBC RBC Hgb POC Hgb Hct POC Hct MCH MCHC RDW Plt Count Lymph % (Auto) Lane % (Auto) Lymph # Lane # Baso # Seg Neutrophils % Seg Neuts % (Manual) Lymphocytes % (Manual) Monocytes % (Manual) Nucleated RBC % Seg Neutrophils # Seg Neutrophils # Man Lymphocytes # (Manual) Monocytes # (Manual) PT INR APTT Fibrinogen Heparin Anti-Xa Level POC ABG pH POC ABG pCO2 POC ABG pO2 POC Potassium POC Chloride Sodium Potassium Chloride Carbon Dioxide POC BUN BUN Creatinine Glucose POC Glucose 133 H 129 H Calcium Magnesium AST Alkaline Phosphatase Lactate Dehydrogenase Total Creatine Kinase Total Protein Albumin Urine WBC (Auto) Crossmatch See Detail 07/13/16 07/13/16 07/14/16 15:28 23:29 08:15 WBC RBC Hgb POC Hgb Hct POC Hct MCH MCHC RDW Plt Count Lymph % (Auto) Lane % (Auto) Lymph # Lane # Baso # Seg Neutrophils % Seg Neuts % (Manual) Lymphocytes % (Manual) Monocytes % (Manual) Nucleated RBC % Seg Neutrophils # Seg Neutrophils # Man Lymphocytes # (Manual) Monocytes # (Manual) PT INR APTT Fibrinogen Heparin Anti-Xa Level POC ABG pH POC ABG pCO2 POC ABG pO2 POC Potassium POC Chloride Sodium Potassium Chloride Carbon Dioxide POC BUN BUN Creatinine Glucose POC Glucose 119 H 113 H 130 H Calcium Magnesium AST Alkaline Phosphatase Lactate Dehydrogenase Total Creatine Kinase Total Protein Albumin Urine WBC (Auto) Crossmatch 07/14/16 07/14/16 07/14/16 08:30 12:12 17:00 WBC RBC Hgb POC Hgb Hct POC Hct MCH MCHC RDW Plt Count Lymph % (Auto) Lane % (Auto) Lymph # Lane # Baso # Seg Neutrophils % Seg Neuts % (Manual) Lymphocytes % (Manual) Monocytes % (Manual) Nucleated RBC % Seg Neutrophils # Seg Neutrophils # Man Lymphocytes # (Manual) Monocytes # (Manual) PT INR APTT Fibrinogen Heparin Anti-Xa Level POC ABG pH POC ABG pCO2 POC ABG pO2 POC Potassium POC Chloride Sodium 135 L Potassium Chloride Carbon Dioxide POC BUN BUN Creatinine Glucose 113 H POC Glucose 115 H 119 H Calcium 7.8 L Magnesium AST Alkaline Phosphatase Lactate Dehydrogenase Total Creatine Kinase Total Protein Albumin Urine WBC (Auto) Crossmatch 07/14/16 07/15/16 07/15/16 Unknown 04:15 04:15 WBC 13.9 H 15.3 H RBC Hgb POC Hgb Hct POC Hct MCH MCHC RDW Plt Count Lymph % (Auto) 9.[address] % (Auto) Lymph # Lane # 0.9 H Baso # Seg Neutrophils % 83.8 H 83.9 H Seg Neuts % (Manual) Lymphocytes % (Manual) Monocytes % (Manual) Nucleated RBC % Seg Neutrophils # 11.7 H 12.9 H Seg Neutrophils # Man Lymphocytes # (Manual) Monocytes # (Manual) PT INR APTT Fibrinogen Heparin Anti-Xa Level POC ABG pH POC ABG pCO2 POC ABG pO2 POC Potassium POC Chloride Sodium 131 L Potassium Chloride 96.5 L Carbon Dioxide POC BUN BUN Creatinine 0.6 L Glucose 104 H POC Glucose Calcium 8.0 L Magnesium AST Alkaline Phosphatase Lactate Dehydrogenase Total Creatine Kinase Total Protein Albumin Urine WBC (Auto) Crossmatch 07/15/16 07/15/16 07/15/16 11:29 16:06 22:05 WBC RBC Hgb POC Hgb Hct POC Hct MCH MCHC RDW Plt Count Lymph % (Auto) Lane % (Auto) Lymph # Lane # Baso # Seg Neutrophils % Seg Neuts % (Manual) Lymphocytes % (Manual) Monocytes % (Manual) Nucleated RBC % Seg Neutrophils # Seg Neutrophils # Man Lymphocytes # (Manual) Monocytes # (Manual) PT INR APTT Fibrinogen Heparin Anti-Xa Level POC ABG pH POC ABG pCO2 POC ABG pO2 POC Potassium POC Chloride Sodium Potassium Chloride Carbon Dioxide POC BUN BUN Creatinine Glucose POC Glucose 114 H 165 H 127 H Calcium Magnesium AST Alkaline Phosphatase Lactate Dehydrogenase Total Creatine Kinase Total Protein Albumin Urine WBC (Auto) Crossmatch 07/16/16 07/16/16 07/16/16 07:36 07:36 07:39 WBC RBC 2.86 L Hgb 8.5 L POC Hgb Hct 25.0 L D POC Hct MCH MCHC RDW Plt Count Lymph % (Auto) Lane % (Auto) 8.5 H Lymph # Lane # 0.9 H Baso # Seg Neutrophils % 77.7 H Seg Neuts % (Manual) Lymphocytes % (Manual) Monocytes % (Manual) Nucleated RBC % Seg Neutrophils # 8.5 H Seg Neutrophils # Man Lymphocytes # (Manual) Monocytes # (Manual) PT INR APTT Fibrinogen Heparin Anti-Xa Level POC ABG pH POC ABG pCO2 POC ABG pO2 POC Potassium POC Chloride Sodium 136 L Potassium Chloride Carbon Dioxide POC BUN BUN Creatinine 0.5 L Glucose 133 H POC Glucose 137 H Calcium 8.0 L Magnesium AST Alkaline Phosphatase Lactate Dehydrogenase Total Creatine Kinase Total Protein Albumin Urine WBC (Auto) Crossmatch 07/16/16 07/16/16 07/17/16 11:43 22:10 05:00 WBC 11.6 H RBC 2.95 L Hgb 8.5 L POC Hgb Hct 25.7 L POC Hct MCH MCHC RDW Plt Count Lymph % (Auto) Lane % (Auto) 8.4 H Lymph # Lane # 1.0 H Baso # Seg Neutrophils % 76.2 H Seg Neuts % (Manual) Lymphocytes % (Manual) Monocytes % (Manual) Nucleated RBC % Seg Neutrophils # 8.9 H Seg Neutrophils # Man Lymphocytes # (Manual) Monocytes # (Manual) PT INR APTT Fibrinogen Heparin Anti-Xa Level POC ABG pH POC ABG pCO2 POC ABG pO2 POC Potassium POC Chloride Sodium Potassium Chloride Carbon Dioxide POC BUN BUN Creatinine Glucose POC Glucose 154 H 140 H Calcium Magnesium AST Alkaline Phosphatase Lactate Dehydrogenase Total Creatine Kinase Total Protein Albumin Urine WBC (Auto) Crossmatch 07/17/16 07/17/16 07/17/16 05:00 07:32 12:27 WBC RBC Hgb POC Hgb Hct POC Hct MCH MCHC RDW Plt Count Lymph % (Auto) Lane % (Auto) Lymph # Lane # Baso # Seg Neutrophils % Seg Neuts % (Manual) Lymphocytes % (Manual) Monocytes % (Manual) Nucleated RBC % Seg Neutrophils # Seg Neutrophils # Man Lymphocytes # (Manual) Monocytes # (Manual) PT INR APTT Fibrinogen Heparin Anti-Xa Level POC ABG pH POC ABG pCO2 POC ABG pO2 POC Potassium POC Chloride Sodium Potassium Chloride Carbon Dioxide POC BUN BUN Creatinine 0.6 L Glucose 115 H POC Glucose 135 H 140 H Calcium Magnesium 1.4 L AST Alkaline Phosphatase Lactate Dehydrogenase Total Creatine Kinase Total Protein Albumin Urine WBC (Auto) Crossmatch 07/17/16 07/18/16 07/18/16 16:23 05:00 07:31 WBC RBC 2.67 L Hgb 7.7 L POC Hgb Hct 23.2 L POC Hct MCH MCHC RDW Plt Count 447 H Lymph % (Auto) Lane % (Auto) 8.5 H Lymph # Lane # Baso # Seg Neutrophils % 73.1 H Seg Neuts % (Manual) Lymphocytes % (Manual) Monocytes % (Manual) Nucleated RBC % Seg Neutrophils # Seg Neutrophils # Man Lymphocytes # (Manual) Monocytes # (Manual) PT INR APTT Fibrinogen Heparin Anti-Xa Level POC ABG pH POC ABG pCO2 POC ABG pO2 POC Potassium POC Chloride Sodium Potassium Chloride Carbon Dioxide POC BUN BUN Creatinine Glucose POC Glucose 127 H 119 H Calcium Magnesium AST Alkaline Phosphatase Lactate Dehydrogenase Total Creatine Kinase Total Protein Albumin Urine WBC (Auto) Crossmatch
[2016-07-18] MEDS ORDERED: MAGNESIUM SULFATE 4GM/100ML 100 ML IV ONE (13:00)
[2016-07-18] MEDS: BABY ASPIRIN PO SCH (13:05)
[2016-07-18] MEDS: PLAVIX PO SCH (13:05)
[2016-07-18] MEDS: TENORMIN PO SCH (13:14)
[2016-07-18] MEDS: FERROUS SULFATE PO SCH (13:14)
[2016-07-18] MEDS: K-DUR PO SCH (13:14)
[2016-07-18] MEDS: THERMAZENE 50 GRAM TP SCH (13:15)
[2016-07-18] MEDS: PROTONIX PO SCH (13:15)
--- NOTE | 2016-07-18 14:23 | Progress Note ---
Assessment and Plan She continues to improve. Transferred to the [facility] floor. Antibiotics per the infectious disease service recommendations. Discharge planning for rehabilitation with wound VAC. 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 Objective - Constitutional Vitals: Vital Signs - 12hr 07/18/16 07/18/16 07/18/16 05:11 07:48 09:23 Temperature 98.4 F Pulse Rate Respiratory 21 22 Rate Blood Pressure 140/57 07/18/16 07/18/16 11:59 13:14 Temperature 98.4 F Pulse Rate 109 H Respiratory Rate Blood Pressure 140/71 General appearance: Present: no acute distress - EENT Eyes: EOM intact ENT: hearing intact - Respiratory Respiratory effort: normal Extremities: no ischemia, abnormal (bilat groin incisions appear to be improving. Bright red tissue in the left groin; drainage from right groin much less, no erythema.) - Psychiatric Psychiatric: appropriate mood/affect, cooperative - Labs CBC & Chem 7: 07/18/16 05:00 07/17/16 05:00 Labs: Abnormal lab results 07/17/16 07/18/16 07/18/16 Range/Units 16:23 05:00 07:31 RBC 2.67 L (3.65-5.03) M/mm3 Hgb 7.7 L (10.1-14.3) gm/dl Hct 23.2 L (30.3-42.9) % Plt Count 447 H (140-440) K/mm3 [place] % (Auto) 8.5 H (0.0-7.3) % Seg Neutrophils % 73.1 H (40.0-70.0) % POC Glucose 127 H 119 H (70-105) 07/18/16 Range/Units 11:45 RBC (3.65-5.03) M/mm3 Hgb (10.1-14.3) gm/dl Hct (30.3-42.9) % Plt Count (140-440) K/mm3 [place] % (Auto) (0.0-7.3) % Seg Neutrophils % (40.0-70.0) % POC Glucose 139 H (70-105)
--- NOTE | 2016-07-18 18:50 | Progress Note ---
Assessment and Plan Assessment and plan: 1. Diabetes - BS in low 100s; continue Accu-Cheks and SSI as needed 2. Hypertension - BP controlled only on atenolol 3. PVD - status post left AKA; managed by vascular surgery 4. Right groin wound infection - local wound care, antibiotics per ID recommendation 5. Anemia - on iron supplementation 6. DVT prophylaxis - per vascular surgery History Interval history: no acute events overnight, no specific complaints Hospitalist Physical - Constitutional Vitals: Temp Pulse Resp BP Pulse Ox 97 F L 104 H 22 119/59 100 07/18/16 16:57 07/18/16 16:57 07/18/16 16:57 07/18/16 16:57 07/18/16 00:00 General appearance: Present: no acute distress - Neck Neck: Present: supple, normal ROM. Absent: masses or JVD - Respiratory Respiratory effort: normal Respiratory: bilateral: CTA, negative: rales, rhonchi, wheezing - Cardiovascular Rhythm: regular Heart Sounds: Present: S1 & S2. Absent: systolic murmur - Extremities Extremities: abnormal (LAKA with wound vac; L groin wound vac) - Abdominal General gastrointestinal: soft, non-tender, non-distended, normal bowel sounds - Integumentary Integumentary: Present: warm, dry. Absent: jaundice, rash - Neurologic Neurologic: moves all extremities Results - Labs CBC & Chem 7: 07/19/16 05:00 07/17/16 05:00 Labs: Laboratory Last Values WBC 9.0 K/mm3 (4.5-11.0) 07/18/16 05:00 RBC 2.67 M/mm3 (3.65-5.03) L 07/18/16 05:00 Hgb 7.7 gm/dl (10.1-14.3) L 07/18/16 05:00 POC Hgb 6.5 (12-17) L 06/16/16 18:07 Hct 23.2 % (30.3-42.9) L 07/18/16 05:00 POC Hct 19 (38-51) L 06/16/16 18:07 MCV 87 fl (79-97) 07/18/16 05:00 MCH 29 pg (28-32) 07/18/16 05:00 MCHC 33 % (30-34) 07/18/16 05:00 RDW 14.9 % (13.2-15.2) 07/18/16 05:00 Plt Count 447 K/mm3 (140-440) H 07/18/16 05:00 Lymph % (Auto) 17.6 % (13.4-35.0) 07/18/16 05:00 [place] % (Auto) 8.5 % (0.0-7.3) H 07/18/16 05:00 Eos % (Auto) 0.3 % (0.0-4.3) 07/18/16 05:00 Baso % (Auto) 0.5 % (0.0-1.8) 07/18/16 05:00 Lymph # 1.6 K/mm3 (1.2-5.4) 07/18/16 05:00 [place] # 0.8 K/mm3 (0.0-0.8) 07/18/16 05:00 Eos # 0.0 K/mm3 (0.0-0.4) 07/18/16 05:00 Baso # 0.0 K/mm3 (0.0-0.1) 07/18/16 05:00 Add Manual Diff TNR 07/09/16 07:31 Total Counted 100 07/06/16 04:40 Seg Neutrophils % 73.1 % (40.0-70.0) H 07/18/16 05:00 Seg Neuts % (Manual) 85.0 % (40.0-70.0) H 07/06/16 04:40 Band Neutrophils % 0 % 07/06/16 04:40 Lymphocytes % (Manual) 4.0 % (13.4-35.0) L 07/06/16 04:40 Reactive Lymphs % (Man) 1.0 % 07/06/16 04:40 Monocytes % (Manual) 10.0 % (0.0-7.3) H 07/06/16 04:40 Eosinophils % (Manual) 0 % (0.0-4.3) 07/06/16 04:40 Basophils % (Manual) 0 % (0.0-1.8) 07/06/16 04:40 Metamyelocytes % 0 % 07/06/16 04:40 Myelocytes % 0 % 07/06/16 04:40 Promyelocytes % 0 % 07/06/16 04:40 Blast Cells % 0 % 07/06/16 04:40 Nucleated RBC % Not Reportable 07/06/16 04:40 Seg Neutrophils # 6.6 K/mm3 (1.8-7.7) 07/18/16 05:00 Seg Neutrophils # Man 15.0 K/mm3 (1.8-7.7) H 07/06/16 04:40 Band Neutrophils # 0.0 K/mm3 07/06/16 04:40 Lymphocytes # (Manual) 0.7 K/mm3 (1.2-5.4) L 07/06/16 04:40 Abs React Lymphs (Man) 0.2 K/mm3 07/06/16 04:40 Monocytes # (Manual) 1.8 K/mm3 (0.0-0.8) H 07/06/16 04:40 Eosinophils # (Manual) 0.0 K/mm3 (0.0-0.4) 07/06/16 04:40 Basophils # (Manual) 0.0 K/mm3 (0.0-0.1) 07/06/16 04:40 Metamyelocytes # 0.0 K/mm3 07/06/16 04:40 Myelocytes # 0.0 K/mm3 07/06/16 04:40 Promyelocytes # 0.0 K/mm3 07/06/16 04:40 Blast Cells # 0.0 K/mm3 07/06/16 04:40 WBC Morphology Not Reportable 07/06/16 04:40 Hypersegmented Neuts Not Reportable 07/06/16 04:40 Hyposegmented Neuts Not Reportable 07/06/16 04:40 Hypogranular Neuts Not Reportable 07/06/16 04:40 Smudge Cells Not Reportable 07/06/16 04:40 Toxic Granulation Not Reportable 07/06/16 04:40 Toxic Vacuolation Not Reportable 07/06/16 04:40 Dohle Bodies Not Reportable 07/06/16 04:40 Pelger-Huet Anomaly Not Reportable 07/06/16 04:40 Mary Rods Not Reportable 07/06/16 04:40 Platelet Estimate Appears normal 07/06/16 04:40 Clumped Platelets Not Reportable 07/06/16 04:40 Plt Clumps, EDTA Not Reportable 07/06/16 04:40 Large Platelets Not Reportable 07/06/16 04:40 Giant Platelets Not Reportable 07/06/16 04:40 Platelet Satelliting Not Reportable 07/06/16 04:40 Plt Morphology Comment Not Reportable 07/06/16 04:40 RBC Morphology Not Reportable 07/06/16 04:40 Dimorphic RBCs Not Reportable 07/06/16 04:40 Polychromasia Not Reportable 07/06/16 04:40 Hypochromasia Not Reportable 07/06/16 04:40 Poikilocytosis Not Reportable 07/06/16 04:40 Anisocytosis 1+ 07/06/16 04:40 Microcytosis Not Reportable 07/06/16 04:40 Macrocytosis Not Reportable 07/06/16 04:40 Spherocytes Not Reportable 07/06/16 04:40 Pappenheimer Bodies Not Reportable 07/06/16 04:40 Sickle Cells Not Reportable 07/06/16 04:40 Target Cells Not Reportable 07/06/16 04:40 Tear Drop Cells Not Reportable 07/06/16 04:40 Ovalocytes Not Reportable 07/06/16 04:40 Helmet Cells Not Reportable 07/06/16 04:40 [place] Bodies Not Reportable 07/06/16 04:40 [place] Rings Not Reportable 07/06/16 04:40 [place] Cells Not Reportable 07/06/16 04:40 Bite Cells Not Reportable 07/06/16 04:40 Crenated Cell Not Reportable 07/06/16 04:40 Elliptocytes Not Reportable 07/06/16 04:40 Acanthocytes (Spur) Not Reportable 07/06/16 04:40 Rouleaux Not Reportable 07/06/16 04:40 Hemoglobin C Crystals Not Reportable 07/06/16 04:40 Schistocytes Not Reportable 07/06/16 04:40 Malaria parasites Not Reportable 07/06/16 04:40 Sean Bodies Not Reportable 07/06/16 04:40 Haptoglobin 97 mg/dL (43-212) 07/09/16 14:09 Hem Pathologist Commnt No 07/06/16 04:40 PT 19.9 Sec. (12.2-14.9) H 06/26/16 22:57 INR 1.69 (0.87-1.13) H 06/26/16 22:57 APTT 32.8 Sec. (24.2-36.6) 06/26/16 22:57 Fibrinogen 522 mg/dl (211-480) H 06/13/16 09:45 Heparin Anti-Xa Level 0.45 U.I./ml (0.3-0.7) 06/29/16 20:31 POC ABG pH 7.436 (7.35-7.45) 07/04/16 16:49 POC ABG pCO2 31.1 (35-45) L 07/04/16 16:49 POC ABG pO2 110 (80-105) H 07/04/16 16:49 POC ABG HCO3 20.9 07/04/16 16:49 POC ABG Total CO2 22 07/04/16 16:49 POC ABG O2 Sat 99 07/04/16 16:49 POC ABG Base Excess -3 07/04/16 16:49 POC Sodium 146 mmol/L (138-146) 06/16/16 18:07 POC Potassium 3.5 (3.5-4.9) 06/16/16 18:07 POC Chloride 113 (98-109) H 06/16/16 18:07 FiO2 30 % 07/04/16 16:49 Sodium 137 mmol/L (137-145) 07/17/16 05:00 Potassium 3.9 mmol/L (3.6-5.0) 07/17/16 05:00 Chloride 101.3 mmol/L (98-107) 07/17/16 05:00 Carbon Dioxide 25 mmol/L (22-30) 07/17/16 05:00 Anion Gap 15 mmol/L 07/17/16 05:00 POC BUN 7 mg/dl (8-26) L 06/16/16 18:07 BUN 7 mg/dL (7-17) 07/17/16 05:00 Creatinine 0.6 mg/dL (0.7-1.2) L 07/17/16 05:00 Estimated GFR > 60 ml/min 07/17/16 05:00 BUN/Creatinine Ratio 11.66 % 07/17/16 05:00 Glucose 115 mg/dL (65-100) H 07/17/16 05:00 POC Glucose 139 (70-105) H 07/18/16 11:45 Calcium 8.5 mg/dL (8.4-10.2) 07/17/16 05:00 Magnesium 1.4 mg/dL (1.7-2.3) L 07/17/16 05:00 Total Bilirubin 0.7 mg/dL (0.1-1.2) 07/11/16 05:10 AST 81 units/L (5-40) H 07/11/16 05:10 ALT 20 units/L (7-56) 07/11/16 05:10 Alkaline Phosphatase 153 units/L (35-129) H 07/11/16 05:10 Lactate Dehydrogenase 285 units/L (91-180) H 07/09/16 07:31 Total Creatine Kinase 297 units/L (30-135) H 07/09/16 07:31 Total Protein 6.0 g/dL (6.3-8.2) L 07/11/16 05:10 Albumin 1.8 g/dL (3.9-5) L 07/11/16 05:10 Albumin/Globulin Ratio 0.4 % 07/11/16 05:10 Urine Color Yellow (Yellow) 07/06/16 17:17 Urine Turbidity Slightly-cloudy (Clear) 07/06/16 17:17 Urine pH 6.0 (5.0-7.0) 07/06/16 17:17 Ur Specific [place] 1.011 (1.003-1.030) 07/06/16 17:17 Urine Protein 30 mg/dl mg/dL (Negative) 07/06/16 17:17 Urine Glucose (UA) Neg mg/dL (Negative) 07/06/16 17:17 Urine Ketones Neg mg/dL (Negative) 07/06/16 17:17 Urine Blood Lg (Negative) 07/06/16 17:17 Urine Nitrite Neg (Negative) 07/06/16 17:17 Urine Bilirubin Neg (Negative) 07/06/16 17:17 Urine Urobilinogen < 2.0 mg/dL (<2.0) 07/06/16 17:17 Ur Leukocyte Esterase Lg (Negative) 07/06/16 17:17 Urine WBC (Auto) 67.0 /HPF (0.0-6.0) H 07/06/16 17:17 Urine RBC (Auto) > 182.0 /HPF (0.0-6.0) 07/06/16 17:17 Blood Type O POSITIVE 07/13/16 13:45 Antibody Screen Negative 07/13/16 13:45 Crossmatch See Detail 07/13/16 13:45
[2016-07-19] MEDS: ZOSYN/NS 4.5GM/100ML 100 ML IV SCH ×4 (04:30→22:24)
[2016-07-19 05:41] LABS: Basophils % (Auto) 0.4 % (0.0-1.8); Eosinophils % (Auto) 0.3 % (0.0-4.3); Hemoglobin 7.9 gm/dl (10.1-14.3); Mean Corpuscular HGB Conc 33 % (30-34); Mean Corpuscular Hemoglobin 29 pg (28-32); Mean Corpuscular Volume 88 fl (79-97); Platelet Count 471 K/mm3 (140-440); Red Blood Count 2.74 M/mm3 (3.65-5.03); Red Cell Distribution Width 14.9 % (13.2-15.2); White Blood Count 8.5 K/mm3 (4.5-11.0)
[2016-07-19] MEDS: NOVOLOG SUB-Q SCH ×4 (07:30→22:00)
[2016-07-19] MEDS: D5W/0.45% NACL/KCL 20 MEQ 1,000 ML IV SCH (08:02)
[2016-07-19] MEDS: K-DUR PO SCH (10:13)
[2016-07-19] MEDS: SENOKOT S PO SCH ×2 (10:13→22:00)
[2016-07-19] MEDS: BABY ASPIRIN PO SCH (10:14)
[2016-07-19] MEDS: PROTONIX PO SCH (10:14)
[2016-07-19] MEDS: PLAVIX PO SCH (10:14)
[2016-07-19] MEDS: TENORMIN PO SCH (10:17)
[2016-07-19] MEDS: MORPHINE IV PRN ×3 (10:22→16:47)
[2016-07-19] MEDS: DURAGESIC TD SCH (10:59)
[2016-07-19] MEDS: FERROUS SULFATE PO SCH (11:00)
[2016-07-19] MEDS: THERMAZENE 50 GRAM TP SCH (11:02)
--- NOTE | 2016-07-19 11:20 | Progress Note ---
Assessment and Plan - Patient Problems (1) Peripheral vascular disease of extremity Current Visit: Yes Status: Acute Plan to address problem: - s/p left AKA - vascular surgery managing - continue analgesia but change from RECREATION DIRECTOR to fentanyl basal 25mics/hr patch and prn morphine sulfate - wound care per WCT (2) Acute respiratory failure Current Visit: Yes Status: Acute Plan to address problem: - on room air but need to r/o hemothorax which will necessitate further intervention - thoracentesis on hold re: plavix but also clinical stability respiratory-centeno - will repeat CXR and if persistent effusion will revisit thoracentesis - repeat CXR with slightly reduced but persistent pleural fluid (3) Anemia Current Visit: Yes Status: Acute Plan to address problem: - follow H&H - evaluating source - LDH unremarkable - Likely ABLA component - H&H holding so far but trending down (4) Altered mental status Current Visit: Yes Status: Acute Plan to address problem: - resolved Subjective Date of service: 07/19/16 Principal diagnosis: Infected vascular graft; s/p cardiopulmonary arrest Interval history: seen and examined at bedside; 24hour events reviewed; nursing and respiratory care staff consulted; no adverse overnight events reported to me;resting peacefully; family visited earlier; denies acute chest pains or increased SOB Objective Vital Signs - 12hr 07/19/16 07/19/16 07/19/16 00:00 04:00 07:52 Temperature 98.3 F 97.5 F L 98.1 F Pulse Rate [ 79 From Monitor] Pulse Rate [ 89 88 Left Radial] Respiratory 18 18 16 Rate Respiratory Rate [Bilateral Leg] Respiratory Rate [Left Foot ] Blood Pressure 121/65 116/73 97/44 [Left Arm] O2 Sat by Pulse 100 100 Oximetry 07/19/16 07/19/16 07/19/16 10:00 10:22 10:59 Temperature Pulse Rate [ From Monitor] Pulse Rate [ Left Radial] Respiratory 16 16 Rate Respiratory 16 Rate [Bilateral Leg] Respiratory 16 Rate [Left Foot ] Blood Pressure [Left Arm] O2 Sat by Pulse Oximetry Constitutional: no acute distress, alert Eyes: non-icteric ENT: oropharynx moist Neck: supple, no lymphadenopathy Effort: normal Ascultation: Left: diminished breath sounds (base), Bilateral: clear, rhonchi ( posterior bases) Cardiovascular: regular rate and rhythm Gastrointestinal: normoactive bowel sounds, soft, non-tender, non-distended Integumentary: other (weak LLExt) Extremities: no cyanosis, other (s/p left AKA) Neurologic: normal mental status, non-focal exam, pupils equal and round, motor strength normal and Psychiatric: mood appropriate, affect normal CBC and BMP: 07/19/16 05:00 07/17/16 05:00 ABG, PT/INR, D-dimer: ABG POC ABG pH 7.436 (7.35-7.45) 07/04/16 16:49 POC ABG pCO2 31.1 (35-45) L 07/04/16 16:49 POC ABG pO2 110 (80-105) H 07/04/16 16:49 POC ABG HCO3 20.9 07/04/16 16:49 POC ABG Total CO2 22 07/04/16 16:49 POC ABG O2 Sat 99 07/04/16 16:49 PT/INR, D-dimer PT 19.9 Sec. (12.2-14.9) H 06/26/16 22:57 INR 1.69 (0.87-1.13) H 06/26/16 22:57 Abnormal lab findings: Abnormal Labs 06/13/16 06/13/16 06/13/16 09:45 09:45 09:45 WBC RBC Hgb POC Hgb Hct POC Hct MCH 25 L MCHC RDW 15.8 H Plt Count Lymph % (Auto) Tucker % (Auto) 8.1 H Lymph # Tucker # Baso # Seg Neutrophils % Seg Neuts % (Manual) Lymphocytes % (Manual) Monocytes % (Manual) Nucleated RBC % Seg Neutrophils # Seg Neutrophils # Man Lymphocytes # (Manual) Monocytes # (Manual) PT INR APTT Fibrinogen 522 H Heparin Anti-Xa Level POC ABG pH POC ABG pCO2 POC ABG pO2 POC Potassium POC Chloride Sodium Potassium Chloride Carbon Dioxide POC BUN BUN Creatinine Glucose POC Glucose Calcium 10.3 H Magnesium AST Alkaline Phosphatase Lactate Dehydrogenase Total Creatine Kinase Total Protein Albumin Urine WBC (Auto) Crossmatch 06/13/16 06/13/16 06/13/16 09:45 20:14 20:15 WBC RBC Hgb POC Hgb Hct POC Hct MCH MCHC RDW Plt Count Lymph % (Auto) Tucker % (Auto) Lymph # Tucker # Baso # Seg Neutrophils % Seg Neuts % (Manual) Lymphocytes % (Manual) Monocytes % (Manual) Nucleated RBC % Seg Neutrophils # Seg Neutrophils # Man Lymphocytes # (Manual) Monocytes # (Manual) PT INR APTT 103.8 H* Fibrinogen Heparin Anti-Xa Level 0.72 H POC ABG pH POC ABG pCO2 POC ABG pO2 POC Potassium POC Chloride Sodium Potassium Chloride Carbon Dioxide POC BUN BUN Creatinine Glucose POC Glucose Calcium Magnesium AST Alkaline Phosphatase Lactate Dehydrogenase Total Creatine Kinase Total Protein Albumin Urine WBC (Auto) Crossmatch See Detail 06/14/16 06/14/16 06/14/16 07:44 10:18 19:09 WBC RBC Hgb POC Hgb Hct POC Hct MCH 26 L MCHC RDW 15.8 H Plt Count Lymph % (Auto) Tucker % (Auto) 9.1 H Lymph # Tucker # Baso # Seg Neutrophils % Seg Neuts % (Manual) Lymphocytes % (Manual) Monocytes % (Manual) Nucleated RBC % Seg Neutrophils # Seg Neutrophils # Man Lymphocytes # (Manual) Monocytes # (Manual) PT INR APTT Fibrinogen Heparin Anti-Xa Level 0.76 H POC ABG pH POC ABG pCO2 POC ABG pO2 POC Potassium POC Chloride Sodium Potassium Chloride Carbon Dioxide POC BUN BUN Creatinine Glucose POC Glucose 106 H Calcium Magnesium AST Alkaline Phosphatase Lactate Dehydrogenase Total Creatine Kinase Total Protein Albumin Urine WBC (Auto) Crossmatch 06/15/16 06/15/16 06/15/16 04:43 04:43 22:49 WBC RBC Hgb 9.2 L POC Hgb Hct 28.4 L POC Hct MCH MCHC RDW Plt Count Lymph % (Auto) Tucker % (Auto) Lymph # Tucker # Baso # Seg Neutrophils % Seg Neuts % (Manual) Lymphocytes % (Manual) Monocytes % (Manual) Nucleated RBC % Seg Neutrophils # Seg Neutrophils # Man Lymphocytes # (Manual) Monocytes # (Manual) PT INR APTT Fibrinogen Heparin Anti-Xa Level 0.85 H POC ABG pH POC ABG pCO2 POC ABG pO2 POC Potassium POC Chloride Sodium Potassium Chloride Carbon Dioxide POC BUN BUN Creatinine Glucose POC Glucose 134 H Calcium Magnesium AST Alkaline Phosphatase Lactate Dehydrogenase Total Creatine Kinase Total Protein Albumin Urine WBC (Auto) Crossmatch 06/16/16 06/16/16 06/16/16 08:55 08:55 14:21 WBC RBC Hgb POC Hgb 5.8 L Hct POC Hct 17 L MCH MCHC RDW Plt Count Lymph % (Auto) Tucker % (Auto) Lymph # Tucker # Baso # Seg Neutrophils % Seg Neuts % (Manual) Lymphocytes % (Manual) Monocytes % (Manual) Nucleated RBC % Seg Neutrophils # Seg Neutrophils # Man Lymphocytes # (Manual) Monocytes # (Manual) PT INR APTT 20.0 L Fibrinogen Heparin Anti-Xa Level POC ABG pH POC ABG pCO2 POC ABG pO2 POC Potassium 2.9 L POC Chloride Sodium Potassium Chloride Carbon Dioxide POC BUN 7 L BUN Creatinine Glucose POC Glucose 249 H Calcium Magnesium AST Alkaline Phosphatase Lactate Dehydrogenase Total Creatine Kinase Total Protein Albumin Urine WBC (Auto) Crossmatch See Detail 06/16/16 06/16/16 06/16/16 16:55 17:41 17:48 WBC RBC Hgb POC Hgb 8.8 L Hct POC Hct 26 L < 15 L MCH MCHC RDW Plt Count Lymph % (Auto) Tucker % (Auto) Lymph # Tucker # Baso # Seg Neutrophils % Seg Neuts % (Manual) Lymphocytes % (Manual) Monocytes % (Manual) Nucleated RBC % Seg Neutrophils # Seg Neutrophils # Man Lymphocytes # (Manual) Monocytes # (Manual) PT INR APTT Fibrinogen Heparin Anti-Xa Level POC ABG pH 7.031 L POC ABG pCO2 POC ABG pO2 475 H POC Potassium 3.2 L POC Chloride 112 H 114 H Sodium Potassium Chloride Carbon Dioxide POC BUN 7 L 7 L BUN Creatinine Glucose POC Glucose 203 H 291 H Calcium Magnesium AST Alkaline Phosphatase Lactate Dehydrogenase Total Creatine Kinase Total Protein Albumin Urine WBC (Auto) Crossmatch 06/16/16 06/16/16 06/16/16 18:07 19:09 20:10 WBC 15.8 H RBC Hgb POC Hgb 6.5 L Hct POC Hct 19 L MCH MCHC RDW Plt Count 38 L Lymph % (Auto) 5.9 L Tucker % (Auto) 9.3 H Lymph # 0.9 L Tucker # 1.5 H Baso # Seg Neutrophils % 84.6 H Seg Neuts % (Manual) Lymphocytes % (Manual) Monocytes % (Manual) Nucleated RBC % Seg Neutrophils # 13.3 H Seg Neutrophils # Man Lymphocytes # (Manual) Monocytes # (Manual) PT INR APTT Fibrinogen Heparin Anti-Xa Level POC ABG pH POC ABG pCO2 POC ABG pO2 POC Potassium POC Chloride 113 H Sodium Potassium Chloride Carbon Dioxide POC BUN 7 L BUN Creatinine Glucose POC Glucose 263 H 231 H Calcium Magnesium AST Alkaline Phosphatase Lactate Dehydrogenase Total Creatine Kinase Total Protein Albumin Urine WBC (Auto) Crossmatch 06/16/16 06/16/16 06/16/16 20:10 20:18 21:10 WBC RBC Hgb POC Hgb Hct POC Hct MCH MCHC RDW Plt Count Lymph % (Auto) Tucker % (Auto) Lymph # Tucker # Baso # Seg Neutrophils % Seg Neuts % (Manual) Lymphocytes % (Manual) Monocytes % (Manual) Nucleated RBC % Seg Neutrophils # Seg Neutrophils # Man Lymphocytes # (Manual) Monocytes # (Manual) PT INR APTT Fibrinogen Heparin Anti-Xa Level POC ABG pH 7.236 L 7.280 L POC ABG pCO2 POC ABG pO2 139 H 145 H POC Potassium POC Chloride Sodium Potassium 3.4 L Chloride 114.5 H Carbon Dioxide 17 L D POC BUN BUN Creatinine Glucose 188 H POC Glucose Calcium 6.1 L D Magnesium AST Alkaline Phosphatase Lactate Dehydrogenase Total Creatine Kinase Total Protein Albumin Urine WBC (Auto) Crossmatch 06/16/16 06/17/16 06/17/16 22:53 04:48 05:35 WBC RBC Hgb POC Hgb Hct POC Hct MCH MCHC RDW Plt Count Lymph % (Auto) Tucker % (Auto) Lymph # Tucker # Baso # Seg Neutrophils % Seg Neuts % (Manual) Lymphocytes % (Manual) Monocytes % (Manual) Nucleated RBC % Seg Neutrophils # Seg Neutrophils # Man Lymphocytes # (Manual) Monocytes # (Manual) PT INR APTT Fibrinogen Heparin Anti-Xa Level POC ABG pH POC ABG pCO2 33.9 L 22.2 L POC ABG pO2 152 H 154 H POC Potassium POC Chloride Sodium 150 H Potassium 3.4 L Chloride 114.2 H Carbon Dioxide 16 L POC BUN BUN Creatinine Glucose 221 H POC Glucose Calcium 7.6 L D Magnesium AST Alkaline Phosphatase Lactate Dehydrogenase Total Creatine Kinase Total Protein Albumin Urine WBC (Auto) Crossmatch 06/17/16 06/18/16 06/18/16 09:22 07:26 08:25 WBC 20.3 H RBC 3.41 L Hgb 9.9 L POC Hgb Hct 29.7 L POC Hct MCH MCHC RDW Plt Count Lymph % (Auto) Tucker % (Auto) Lymph # Tucker # Baso # Seg Neutrophils % Seg Neuts % (Manual) 81.0 H Lymphocytes % (Manual) 6.0 L Monocytes % (Manual) 12.0 H Nucleated RBC % Seg Neutrophils # Seg Neutrophils # Man 16.4 H Lymphocytes # (Manual) Monocytes # (Manual) 2.4 H PT INR APTT Fibrinogen Heparin Anti-Xa Level POC ABG pH POC ABG pCO2 POC ABG pO2 POC Potassium POC Chloride Sodium Potassium 3.1 L Chloride Carbon Dioxide POC BUN BUN Creatinine Glucose 136 H POC Glucose 141 H Calcium 7.5 L Magnesium AST Alkaline Phosphatase Lactate Dehydrogenase Total Creatine Kinase Total Protein Albumin Urine WBC (Auto) Crossmatch 06/18/16 06/18/16 06/18/16 08:25 11:09 19:40 WBC RBC Hgb 6.5 L D POC Hgb Hct 19.3 L* D POC Hct MCH MCHC RDW Plt Count 131 L Lymph % (Auto) Tucker % (Auto) Lymph # Tucker # Baso # Seg Neutrophils % Seg Neuts % (Manual) Lymphocytes % (Manual) Monocytes % (Manual) Nucleated RBC % Seg Neutrophils # Seg Neutrophils # Man Lymphocytes # (Manual) Monocytes # (Manual) PT INR APTT Fibrinogen Heparin Anti-Xa Level POC ABG pH 7.490 H POC ABG pCO2 POC ABG pO2 131 H POC Potassium POC Chloride Sodium Potassium Chloride Carbon Dioxide POC BUN BUN Creatinine Glucose POC Glucose 125 H Calcium Magnesium AST Alkaline Phosphatase Lactate Dehydrogenase Total Creatine Kinase Total Protein Albumin Urine WBC (Auto) Crossmatch 06/18/16 06/19/16 06/19/16 21:10 07:07 07:28 WBC 13.6 H RBC 2.17 L Hgb 6.5 L POC Hgb Hct 18.8 L* POC Hct MCH MCHC 35 H RDW Plt Count 131 L Lymph % (Auto) 10.1 L Tucker % (Auto) 9.3 H Lymph # Tucker # 1.3 H Baso # Seg Neutrophils % 79.7 H Seg Neuts % (Manual) Lymphocytes % (Manual) Monocytes % (Manual) Nucleated RBC % Seg Neutrophils # 10.8 H Seg Neutrophils # Man Lymphocytes # (Manual) Monocytes # (Manual) PT INR APTT Fibrinogen Heparin Anti-Xa Level 0.75 H POC ABG pH POC ABG pCO2 POC ABG pO2 POC Potassium POC Chloride Sodium Potassium 3.5 L Chloride Carbon Dioxide POC BUN BUN Creatinine Glucose 104 H POC Glucose Calcium 7.6 L Magnesium 1.4 L AST Alkaline Phosphatase Lactate Dehydrogenase Total Creatine Kinase Total Protein Albumin Urine WBC (Auto) Crossmatch 06/20/16 06/20/1616 04:15 18:15 18:15 WBC 16.6 H RBC 1.19 L Hgb 9.2 L 3.5 L* D POC Hgb Hct 27.5 L D 11.0 L* D POC Hct MCH MCHC RDW Plt Count 138 L Lymph % (Auto) Tucker % (Auto) Lymph # Tucker # Baso # Seg Neutrophils % Seg Neuts % (Manual) Lymphocytes % (Manual) Monocytes % (Manual) Nucleated RBC % Seg Neutrophils # Seg Neutrophils # Man Lymphocytes # (Manual) Monocytes # (Manual) PT INR APTT Fibrinogen Heparin Anti-Xa Level POC ABG pH POC ABG pCO2 POC ABG pO2 POC Potassium POC Chloride Sodium 146 H Potassium Chloride Carbon Dioxide 14 L D POC BUN BUN Creatinine Glucose 31 L* POC Glucose Calcium 6.7 L Magnesium AST Alkaline Phosphatase Lactate Dehydrogenase Total Creatine Kinase Total Protein Albumin Urine WBC (Auto) Crossmatch 06/20/16 06/20/16 06/20/16 18:15 19:33 19:36 WBC RBC Hgb POC Hgb Hct POC Hct MCH MCHC RDW Plt Count Lymph % (Auto) Tucker % (Auto) Lymph # Tucker # Baso # Seg Neutrophils % Seg Neuts % (Manual) Lymphocytes % (Manual) Monocytes % (Manual) Nucleated RBC % Seg Neutrophils # Seg Neutrophils # Man Lymphocytes # (Manual) Monocytes # (Manual) PT INR APTT Fibrinogen Heparin Anti-Xa Level POC ABG pH POC ABG pCO2 26.3 L POC ABG pO2 394 H POC Potassium POC Chloride Sodium Potassium Chloride Carbon Dioxide POC BUN BUN Creatinine Glucose POC Glucose 212 H Calcium Magnesium AST Alkaline Phosphatase Lactate Dehydrogenase Total Creatine Kinase Total Protein Albumin Urine WBC (Auto) Crossmatch See Detail 06/20/16 06/20/16 06/21/16 22:01 23:00 00:35 WBC RBC Hgb POC Hgb Hct POC Hct MCH MCHC RDW Plt Count Lymph % (Auto) Tucker % (Auto) Lymph # Tucker # Baso # Seg Neutrophils % Seg Neuts % (Manual) Lymphocytes % (Manual) Monocytes % (Manual) Nucleated RBC % Seg Neutrophils # Seg Neutrophils # Man Lymphocytes # (Manual) Monocytes # (Manual) PT 21.3 H INR 1.85 H APTT 48.4 H Fibrinogen Heparin Anti-Xa Level POC ABG pH POC ABG pCO2 POC ABG pO2 POC Potassium POC Chloride Sodium Potassium Chloride Carbon Dioxide POC BUN BUN Creatinine Glucose POC Glucose 149 H 147 H Calcium Magnesium AST Alkaline Phosphatase Lactate Dehydrogenase Total Creatine Kinase Total Protein Albumin Urine WBC (Auto) Crossmatch 06/21/16 06/21/16 06/21/16 04:30 04:30 06:01 WBC 21.7 H RBC 3.58 L Hgb POC Hgb Hct POC Hct MCH MCHC 35 H RDW Plt Count 116 L Lymph % (Auto) Tucker % (Auto) Lymph # Tucker # Baso # Seg Neutrophils % Seg Neuts % (Manual) Lymphocytes % (Manual) 8.0 L Monocytes % (Manual) Nucleated RBC % 3.0 H Seg Neutrophils # Seg Neutrophils # Man 13.7 H Lymphocytes # (Manual) Monocytes # (Manual) 1.5 H PT INR APTT Fibrinogen Heparin Anti-Xa Level POC ABG pH 7.541 H POC ABG pCO2 21.1 L POC ABG pO2 108 H POC Potassium POC Chloride Sodium Potassium 3.0 L Chloride 110.3 H Carbon Dioxide 18 L POC BUN BUN 18 H Creatinine Glucose 141 H POC Glucose Calcium 6.4 L Magnesium AST Alkaline Phosphatase Lactate Dehydrogenase Total Creatine Kinase Total Protein Albumin Urine WBC (Auto) Crossmatch 06/21/16 06/21/16 06/21/16 07:00 10:02 17:51 WBC RBC Hgb 8.3 L POC Hgb Hct 24.7 L D POC Hct MCH MCHC RDW Plt Count Lymph % (Auto) Tucker % (Auto) Lymph # Tucker # Baso # Seg Neutrophils % Seg Neuts % (Manual) Lymphocytes % (Manual) Monocytes % (Manual) Nucleated RBC % Seg Neutrophils # Seg Neutrophils # Man Lymphocytes # (Manual) Monocytes # (Manual) PT INR APTT Fibrinogen Heparin Anti-Xa Level POC ABG pH POC ABG pCO2 POC ABG pO2 POC Potassium POC Chloride Sodium Potassium Chloride Carbon Dioxide POC BUN BUN Creatinine Glucose POC Glucose 132 H 106 H Calcium Magnesium AST Alkaline Phosphatase Lactate Dehydrogenase Total Creatine Kinase Total Protein Albumin Urine WBC (Auto) Crossmatch 06/22/16 06/22/16 06/22/16 05:00 05:00 06:40 WBC 20.6 H RBC 3.54 L Hgb POC Hgb Hct POC Hct MCH MCHC RDW Plt Count 129 L Lymph % (Auto) Tucker % (Auto) Lymph # Tucker # Baso # Seg Neutrophils % Seg Neuts % (Manual) 87.0 H Lymphocytes % (Manual) 4.0 L Monocytes % (Manual) Nucleated RBC % 4.0 H Seg Neutrophils # Seg Neutrophils # Man 17.9 H Lymphocytes # (Manual) 0.8 L Monocytes # (Manual) 1.2 H PT INR APTT Fibrinogen Heparin Anti-Xa Level POC ABG pH POC ABG pCO2 21.9 L POC ABG pO2 118 H POC Potassium POC Chloride Sodium Potassium Chloride 109.9 H Carbon Dioxide 15 L POC BUN BUN 26 H Creatinine 2.2 H D Glucose POC Glucose Calcium 6.3 L Magnesium AST Alkaline Phosphatase Lactate Dehydrogenase Total Creatine Kinase Total Protein Albumin Urine WBC (Auto) Crossmatch 06/22/16 06/22/16 06/22/16 09:15 09:15 23:17 WBC RBC Hgb 9.1 L POC Hgb Hct 26.9 L POC Hct MCH MCHC RDW Plt Count 116 L Lymph % (Auto) Tucker % (Auto) Lymph # Tucker # Baso # Seg Neutrophils % Seg Neuts % (Manual) Lymphocytes % (Manual) Monocytes % (Manual) Nucleated RBC % Seg Neutrophils # Seg Neutrophils # Man Lymphocytes # (Manual) Monocytes # (Manual) PT 15.8 H INR 1.27 H APTT Fibrinogen Heparin Anti-Xa Level POC ABG pH POC ABG pCO2 POC ABG pO2 POC Potassium POC Chloride Sodium Potassium Chloride Carbon Dioxide POC BUN BUN Creatinine Glucose POC Glucose 134 H Calcium Magnesium AST Alkaline Phosphatase Lactate Dehydrogenase Total Creatine Kinase Total Protein Albumin Urine WBC (Auto) Crossmatch 06/23/16 06/23/16 06/23/16 05:43 05:43 09:44 WBC 13.8 H RBC 2.70 L Hgb 8.1 L POC Hgb Hct 24.2 L POC Hct MCH MCHC RDW Plt Count 93 L Lymph % (Auto) 6.2 L Tucker % (Auto) Lymph # 0.9 L Tucker # Baso # Seg Neutrophils % 89.2 H Seg Neuts % (Manual) Lymphocytes % (Manual) Monocytes % (Manual) Nucleated RBC % Seg Neutrophils # 12.3 H Seg Neutrophils # Man Lymphocytes # (Manual) Monocytes # (Manual) PT INR APTT Fibrinogen Heparin Anti-Xa Level POC ABG pH 7.593 H POC ABG pCO2 26.8 L POC ABG pO2 141 H POC Potassium POC Chloride Sodium 146 H Potassium Chloride Carbon Dioxide POC BUN BUN 32 H Creatinine 2.6 H Glucose 142 H POC Glucose Calcium 7.0 L Magnesium AST Alkaline Phosphatase Lactate Dehydrogenase Total Creatine Kinase Total Protein Albumin Urine WBC (Auto) Crossmatch 06/23/16 06/23/16 06/23/16 11:23 17:42 23:32 WBC RBC Hgb POC Hgb Hct POC Hct MCH MCHC RDW Plt Count Lymph % (Auto) Tucker % (Auto) Lymph # Tucker # Baso # Seg Neutrophils % Seg Neuts % (Manual) Lymphocytes % (Manual) Monocytes % (Manual) Nucleated RBC % Seg Neutrophils # Seg Neutrophils # Man Lymphocytes # (Manual) Monocytes # (Manual) PT INR APTT Fibrinogen Heparin Anti-Xa Level POC ABG pH POC ABG pCO2 POC ABG pO2 POC Potassium POC Chloride Sodium Potassium Chloride Carbon Dioxide POC BUN BUN Creatinine Glucose POC Glucose 138 H 133 H 111 H Calcium Magnesium AST Alkaline Phosphatase Lactate Dehydrogenase Total Creatine Kinase Total Protein Albumin Urine WBC (Auto) Crossmatch 06/24/16 06/24/16 06/24/16 06:27 08:10 08:10 WBC 16.6 H RBC 2.91 L Hgb 8.9 L POC Hgb Hct 26.4 L POC Hct MCH MCHC RDW 15.6 H Plt Count 115 L Lymph % (Auto) 4.6 L Tucker % (Auto) Lymph # 0.8 L Tucker # 1.0 H Baso # Seg Neutrophils % 89.2 H Seg Neuts % (Manual) Lymphocytes % (Manual) Monocytes % (Manual) Nucleated RBC % Seg Neutrophils # 14.9 H Seg Neutrophils # Man Lymphocytes # (Manual) Monocytes # (Manual) PT INR APTT Fibrinogen Heparin Anti-Xa Level POC ABG pH POC ABG pCO2 POC ABG pO2 POC Potassium POC Chloride Sodium 146 H Potassium Chloride Carbon Dioxide POC BUN BUN 37 H Creatinine 2.9 H Glucose POC Glucose 109 H Calcium 7.5 L Magnesium AST Alkaline Phosphatase Lactate Dehydrogenase Total Creatine Kinase Total Protein Albumin Urine WBC (Auto) Crossmatch 06/24/16 06/24/16 06/24/16 12:05 17:57 22:13 WBC RBC Hgb POC Hgb Hct POC Hct MCH MCHC RDW Plt Count Lymph % (Auto) Tucker % (Auto) Lymph # Tucker # Baso # Seg Neutrophils % Seg Neuts % (Manual) Lymphocytes % (Manual) Monocytes % (Manual) Nucleated RBC % Seg Neutrophils # Seg Neutrophils # Man Lymphocytes # (Manual) Monocytes # (Manual) PT INR APTT Fibrinogen Heparin Anti-Xa Level POC ABG pH POC ABG pCO2 POC ABG pO2 POC Potassium POC Chloride Sodium Potassium Chloride Carbon Dioxide POC BUN BUN Creatinine Glucose POC Glucose 117 H 124 H 116 H Calcium Magnesium AST Alkaline Phosphatase Lactate Dehydrogenase Total Creatine Kinase Total Protein Albumin Urine WBC (Auto) Crossmatch 06/25/16 06/25/16 06/25/16 06:42 06:49 12:14 WBC RBC Hgb POC Hgb Hct POC Hct MCH MCHC RDW Plt Count Lymph % (Auto) Tucker % (Auto) Lymph # Tucker # Baso # Seg Neutrophils % Seg Neuts % (Manual) Lymphocytes % (Manual) Monocytes % (Manual) Nucleated RBC % Seg Neutrophils # Seg Neutrophils # Man Lymphocytes # (Manual) Monocytes # (Manual) PT INR APTT Fibrinogen Heparin Anti-Xa Level POC ABG pH POC ABG pCO2 POC ABG pO2 POC Potassium POC Chloride Sodium Potassium Chloride Carbon Dioxide POC BUN BUN 46 H Creatinine 3.6 H Glucose 133 H POC Glucose 137 H 136 H Calcium 7.4 L Magnesium AST Alkaline Phosphatase Lactate Dehydrogenase Total Creatine Kinase Total Protein Albumin Urine WBC (Auto) Crossmatch 06/25/16 06/25/16 06/26/16 16:07 21:32 05:55 WBC RBC Hgb POC Hgb Hct POC Hct MCH MCHC RDW Plt Count Lymph % (Auto) Tucker % (Auto) Lymph # Tucker # Baso # Seg Neutrophils % Seg Neuts % (Manual) Lymphocytes % (Manual) Monocytes % (Manual) Nucleated RBC % Seg Neutrophils # Seg Neutrophils # Man Lymphocytes # (Manual) Monocytes # (Manual) PT INR APTT Fibrinogen Heparin Anti-Xa Level POC ABG pH POC ABG pCO2 POC ABG pO2 POC Potassium POC Chloride Sodium Potassium Chloride Carbon Dioxide 20 L POC BUN BUN 55 H Creatinine 4.2 H Glucose 120 H POC Glucose 146 H 146 H Calcium 7.5 L Magnesium AST Alkaline Phosphatase Lactate Dehydrogenase Total Creatine Kinase Total Protein Albumin Urine WBC (Auto) Crossmatch 06/26/16 06/26/16 06/26/16 06:30 11:38 16:45 WBC RBC Hgb POC Hgb Hct POC Hct MCH MCHC RDW Plt Count Lymph % (Auto) Tucker % (Auto) Lymph # Tucker # Baso # Seg Neutrophils % Seg Neuts % (Manual) Lymphocytes % (Manual) Monocytes % (Manual) Nucleated RBC % Seg Neutrophils # Seg Neutrophils # Man Lymphocytes # (Manual) Monocytes # (Manual) PT INR APTT Fibrinogen Heparin Anti-Xa Level POC ABG pH POC ABG pCO2 POC ABG pO2 POC Potassium POC Chloride Sodium Potassium Chloride Carbon Dioxide POC BUN BUN Creatinine Glucose POC Glucose 128 H 143 H 121 H Calcium Magnesium AST Alkaline Phosphatase Lactate Dehydrogenase Total Creatine Kinase Total Protein Albumin Urine WBC (Auto) Crossmatch 06/26/16 06/26/16 06/27/16 22:57 22:57 00:47 WBC RBC Hgb 8.4 L POC Hgb Hct 25.1 L POC Hct MCH MCHC RDW Plt Count Lymph % (Auto) Tucker % (Auto) Lymph # Tucker # Baso # Seg Neutrophils % Seg Neuts % (Manual) Lymphocytes % (Manual) Monocytes % (Manual) Nucleated RBC % Seg Neutrophils # Seg Neutrophils # Man Lymphocytes # (Manual) Monocytes # (Manual) PT 19.9 H INR 1.69 H APTT Fibrinogen Heparin Anti-Xa Level POC ABG pH POC ABG pCO2 POC ABG pO2 POC Potassium POC Chloride Sodium Potassium Chloride Carbon Dioxide POC BUN BUN Creatinine Glucose POC Glucose 110 H Calcium Magnesium AST Alkaline Phosphatase Lactate Dehydrogenase Total Creatine Kinase Total Protein Albumin Urine WBC (Auto) Crossmatch 06/27/16 06/27/16 06/27/16 05:43 05:43 06:40 WBC RBC Hgb POC Hgb Hct POC Hct MCH MCHC RDW Plt Count Lymph % (Auto) Tucker % (Auto) Lymph # Tucker # Baso # Seg Neutrophils % Seg Neuts % (Manual) Lymphocytes % (Manual) Monocytes % (Manual) Nucleated RBC % Seg Neutrophils # Seg Neutrophils # Man Lymphocytes # (Manual) Monocytes # (Manual) PT INR APTT Fibrinogen Heparin Anti-Xa Level 2.00 H POC ABG pH POC ABG pCO2 POC ABG pO2 POC Potassium POC Chloride Sodium Potassium Chloride Carbon Dioxide 20 L POC BUN BUN 58 H Creatinine 4.8 H Glucose POC Glucose 109 H Calcium 8.1 L Magnesium AST Alkaline Phosphatase Lactate Dehydrogenase Total Creatine Kinase Total Protein Albumin Urine WBC (Auto) Crossmatch 06/27/16 06/27/16 06/27/16 08:15 16:46 17:47 WBC RBC Hgb POC Hgb Hct POC Hct MCH MCHC RDW Plt Count Lymph % (Auto) Tucker % (Auto) Lymph # Tucker # Baso # Seg Neutrophils % Seg Neuts % (Manual) Lymphocytes % (Manual) Monocytes % (Manual) Nucleated RBC % Seg Neutrophils # Seg Neutrophils # Man Lymphocytes # (Manual) Monocytes # (Manual) PT INR APTT Fibrinogen Heparin Anti-Xa Level > 2.00 H 1.87 H POC ABG pH POC ABG pCO2 POC ABG pO2 POC Potassium POC Chloride Sodium Potassium Chloride Carbon Dioxide POC BUN BUN Creatinine Glucose POC Glucose 231 H Calcium Magnesium AST Alkaline Phosphatase Lactate Dehydrogenase Total Creatine Kinase Total Protein Albumin Urine WBC (Auto) Crossmatch 06/27/16 06/27/16 06/28/16 21:23 23:54 06:27 WBC RBC Hgb POC Hgb Hct POC Hct MCH MCHC RDW Plt Count Lymph % (Auto) Tucker % (Auto) Lymph # Tucker # Baso # Seg Neutrophils % Seg Neuts % (Manual) Lymphocytes % (Manual) Monocytes % (Manual) Nucleated RBC % Seg Neutrophils # Seg Neutrophils # Man Lymphocytes # (Manual) Monocytes # (Manual) PT INR APTT Fibrinogen Heparin Anti-Xa Level 1.70 H POC ABG pH POC ABG pCO2 POC ABG pO2 POC Potassium POC Chloride Sodium Potassium Chloride Carbon Dioxide POC BUN BUN 62 H Creatinine 4.5 H Glucose 111 H POC Glucose 122 H Calcium 8.3 L Magnesium AST Alkaline Phosphatase Lactate Dehydrogenase Total Creatine Kinase Total Protein Albumin Urine WBC (Auto) Crossmatch 06/28/16 06/28/16 06/28/16 06:27 11:47 14:14 WBC RBC Hgb 7.7 L POC Hgb Hct 22.9 L POC Hct MCH MCHC RDW Plt Count Lymph % (Auto) Tucker % (Auto) Lymph # Tucker # Baso # Seg Neutrophils % Seg Neuts % (Manual) Lymphocytes % (Manual) Monocytes % (Manual) Nucleated RBC % Seg Neutrophils # Seg Neutrophils # Man Lymphocytes # (Manual) Monocytes # (Manual) PT INR APTT Fibrinogen Heparin Anti-Xa Level POC ABG pH 7.461 H POC ABG pCO2 31.9 L POC ABG pO2 73 L POC Potassium POC Chloride Sodium Potassium Chloride Carbon Dioxide POC BUN BUN Creatinine Glucose POC Glucose 155 H Calcium Magnesium AST Alkaline Phosphatase Lactate Dehydrogenase Total Creatine Kinase Total Protein Albumin Urine WBC (Auto) Crossmatch 06/28/16 06/28/16 06/28/16 16:27 20:47 22:59 WBC RBC Hgb POC Hgb Hct POC Hct MCH MCHC RDW Plt Count Lymph % (Auto) Tucker % (Auto) Lymph # Tucker # Baso # Seg Neutrophils % Seg Neuts % (Manual) Lymphocytes % (Manual) Monocytes % (Manual) Nucleated RBC % Seg Neutrophils # Seg Neutrophils # Man Lymphocytes # (Manual) Monocytes # (Manual) PT INR APTT Fibrinogen Heparin Anti-Xa Level 1.16 H POC ABG pH POC ABG pCO2 POC ABG pO2 POC Potassium POC Chloride Sodium Potassium Chloride Carbon Dioxide POC BUN BUN Creatinine Glucose POC Glucose 193 H 126 H Calcium Magnesium AST Alkaline Phosphatase Lactate Dehydrogenase Total Creatine Kinase Total Protein Albumin Urine WBC (Auto) Crossmatch 06/29/16 06/29/16 06/29/16 05:51 09:10 09:10 WBC RBC Hgb POC Hgb Hct POC Hct MCH MCHC RDW Plt Count Lymph % (Auto) Tucker % (Auto) Lymph # Tucker # Baso # Seg Neutrophils % Seg Neuts % (Manual) Lymphocytes % (Manual) Monocytes % (Manual) Nucleated RBC % Seg Neutrophils # Seg Neutrophils # Man Lymphocytes # (Manual) Monocytes # (Manual) PT INR APTT Fibrinogen Heparin Anti-Xa Level 0.92 H POC ABG pH POC ABG pCO2 POC ABG pO2 POC Potassium POC Chloride Sodium Potassium Chloride Carbon Dioxide POC BUN BUN 53 H Creatinine 3.7 H Glucose 139 H POC Glucose 121 H Calcium 8.2 L Magnesium AST Alkaline Phosphatase Lactate Dehydrogenase Total Creatine Kinase Total Protein Albumin Urine WBC (Auto) Crossmatch 06/29/16 06/30/16 06/30/16 21:22 05:09 08:07 WBC RBC Hgb 7.3 L POC Hgb Hct 21.9 L POC Hct MCH MCHC RDW Plt Count Lymph % (Auto) Tucker % (Auto) Lymph # Tucker # Baso # Seg Neutrophils % Seg Neuts % (Manual) Lymphocytes % (Manual) Monocytes % (Manual) Nucleated RBC % Seg Neutrophils # Seg Neutrophils # Man Lymphocytes # (Manual) Monocytes # (Manual) PT INR APTT Fibrinogen Heparin Anti-Xa Level POC ABG pH POC ABG pCO2 POC ABG pO2 POC Potassium POC Chloride Sodium Potassium Chloride Carbon Dioxide POC BUN BUN Creatinine Glucose POC Glucose 108 H 106 H Calcium Magnesium AST Alkaline Phosphatase Lactate Dehydrogenase Total Creatine Kinase Total Protein Albumin Urine WBC (Auto) Crossmatch 06/30/16 06/30/16 06/30/16 10:48 12:13 16:48 WBC RBC Hgb POC Hgb Hct POC Hct MCH MCHC RDW Plt Count Lymph % (Auto) Tucker % (Auto) Lymph # Tucker # Baso # Seg Neutrophils % Seg Neuts % (Manual) Lymphocytes % (Manual) Monocytes % (Manual) Nucleated RBC % Seg Neutrophils # Seg Neutrophils # Man Lymphocytes # (Manual) Monocytes # (Manual) PT INR APTT Fibrinogen Heparin Anti-Xa Level POC ABG pH POC ABG pCO2 POC ABG pO2 POC Potassium POC Chloride Sodium Potassium Chloride Carbon Dioxide POC BUN BUN 46 H Creatinine 3.0 H Glucose POC Glucose 153 H 152 H Calcium Magnesium AST Alkaline Phosphatase Lactate Dehydrogenase Total Creatine Kinase Total Protein Albumin Urine WBC (Auto) Crossmatch 06/30/16 07/01/16 07/01/16 21:47 05:47 07:44 WBC 19.8 H RBC 2.45 L Hgb 7.2 L POC Hgb Hct 22.2 L POC Hct MCH MCHC RDW Plt Count 481 H Lymph % (Auto) 5.5 L Tucker % (Auto) Lymph # 1.1 L Tucker # 1.4 H Baso # Seg Neutrophils % 86.8 H Seg Neuts % (Manual) Lymphocytes % (Manual) Monocytes % (Manual) Nucleated RBC % Seg Neutrophils # 17.1 H Seg Neutrophils # Man Lymphocytes # (Manual) Monocytes # (Manual) PT INR APTT Fibrinogen Heparin Anti-Xa Level POC ABG pH POC ABG pCO2 POC ABG pO2 POC Potassium POC Chloride Sodium Potassium Chloride Carbon Dioxide POC BUN BUN Creatinine Glucose POC Glucose 162 H 124 H Calcium Magnesium AST Alkaline Phosphatase Lactate Dehydrogenase Total Creatine Kinase Total Protein Albumin Urine WBC (Auto) Crossmatch 07/01/16 07/01/16 07/01/16 07:44 11:55 16:16 WBC RBC Hgb POC Hgb Hct POC Hct MCH MCHC RDW Plt Count Lymph % (Auto) Tucker % (Auto) Lymph # Tucker # Baso # Seg Neutrophils % Seg Neuts % (Manual) Lymphocytes % (Manual) Monocytes % (Manual) Nucleated RBC % Seg Neutrophils # Seg Neutrophils # Man Lymphocytes # (Manual) Monocytes # (Manual) PT INR APTT Fibrinogen Heparin Anti-Xa Level POC ABG pH POC ABG pCO2 POC ABG pO2 POC Potassium POC Chloride Sodium Potassium 3.1 L Chloride Carbon Dioxide POC BUN BUN 38 H Creatinine 2.2 H Glucose 114 H POC Glucose 114 H 143 H Calcium Magnesium AST Alkaline Phosphatase Lactate Dehydrogenase Total Creatine Kinase Total Protein Albumin Urine WBC (Auto) Crossmatch 07/01/16 07/02/1607/02/16 21:42 05:40 06:46 WBC 18.1 H RBC 2.45 L Hgb 7.3 L POC Hgb Hct 21.8 L POC Hct MCH MCHC RDW Plt Count 490 H Lymph % (Auto) 6.1 L Tucker % (Auto) Lymph # 1.1 L Tucker # 1.1 H Baso # 0.2 H Seg Neutrophils % 86.0 H Seg Neuts % (Manual) Lymphocytes % (Manual) Monocytes % (Manual) Nucleated RBC % Seg Neutrophils # 15.6 H Seg Neutrophils # Man Lymphocytes # (Manual) Monocytes # (Manual) PT INR APTT Fibrinogen Heparin Anti-Xa Level POC ABG pH POC ABG pCO2 POC ABG pO2 POC Potassium POC Chloride Sodium Potassium Chloride Carbon Dioxide POC BUN BUN Creatinine Glucose POC Glucose 135 H 135 H Calcium Magnesium AST Alkaline Phosphatase Lactate Dehydrogenase Total Creatine Kinase Total Protein Albumin Urine WBC (Auto) Crossmatch 07/02/16 07/02/16 07/02/16 06:46 06:49 11:23 WBC RBC Hgb POC Hgb Hct POC Hct MCH MCHC RDW Plt Count Lymph % (Auto) Tucker % (Auto) Lymph # Tucker # Baso # Seg Neutrophils % Seg Neuts % (Manual) Lymphocytes % (Manual) Monocytes % (Manual) Nucleated RBC % Seg Neutrophils # Seg Neutrophils # Man Lymphocytes # (Manual) Monocytes # (Manual) PT INR APTT Fibrinogen Heparin Anti-Xa Level POC ABG pH POC ABG pCO2 POC ABG pO2 POC Potassium POC Chloride Sodium Potassium 2.8 L* Chloride Carbon Dioxide POC BUN BUN 30 H Creatinine 1.8 H Glucose 121 H POC Glucose 121 H Calcium 8.1 L Magnesium 1.3 L AST Alkaline Phosphatase Lactate Dehydrogenase Total Creatine Kinase Total Protein Albumin Urine WBC (Auto) Crossmatch 07/02/16 07/02/16 07/03/16 17:02 21:31 05:35 WBC RBC Hgb POC Hgb Hct POC Hct MCH MCHC RDW Plt Count Lymph % (Auto) Tucker % (Auto) Lymph # Tucker # Baso # Seg Neutrophils % Seg Neuts % (Manual) Lymphocytes % (Manual) Monocytes % (Manual) Nucleated RBC % Seg Neutrophils # Seg Neutrophils # Man Lymphocytes # (Manual) Monocytes # (Manual) PT INR APTT Fibrinogen Heparin Anti-Xa Level POC ABG pH POC ABG pCO2 POC ABG pO2 POC Potassium POC Chloride Sodium Potassium Chloride Carbon Dioxide POC BUN BUN Creatinine Glucose POC Glucose 121 H 159 H 149 H Calcium Magnesium AST Alkaline Phosphatase Lactate Dehydrogenase Total Creatine Kinase Total Protein Albumin Urine WBC (Auto) Crossmatch 07/03/16 07/03/16 07/03/16 06:45 06:45 06:45 WBC 16.8 H RBC 2.21 L Hgb 6.5 L POC Hgb Hct 19.4 L* POC Hct MCH MCHC RDW Plt Count 503 H Lymph % (Auto) 6.4 L Tucker % (Auto) Lymph # 1.1 L Tucker # 1.1 H Baso # Seg Neutrophils % 85.6 H Seg Neuts % (Manual) Lymphocytes % (Manual) Monocytes % (Manual) Nucleated RBC % Seg Neutrophils # 14.4 H Seg Neutrophils # Man Lymphocytes # (Manual) Monocytes # (Manual) PT INR APTT Fibrinogen Heparin Anti-Xa Level POC ABG pH POC ABG pCO2 POC ABG pO2 POC Potassium POC Chloride Sodium Potassium 2.9 L* Chloride Carbon Dioxide POC BUN BUN 21 H Creatinine 1.6 H Glucose 126 H POC Glucose Calcium 8.0 L Magnesium 1.6 L AST Alkaline Phosphatase Lactate Dehydrogenase Total Creatine Kinase Total Protein Albumin Urine WBC (Auto) Crossmatch 07/03/16 07/03/16 07/03/16 12:54 19:00 20:01 WBC RBC Hgb POC Hgb Hct POC Hct MCH MCHC RDW Plt Count Lymph % (Auto) Tucker % (Auto) Lymph # Tucker # Baso # Seg Neutrophils % Seg Neuts % (Manual) Lymphocytes % (Manual) Monocytes % (Manual) Nucleated RBC % Seg Neutrophils # Seg Neutrophils # Man Lymphocytes # (Manual) Monocytes # (Manual) PT INR APTT Fibrinogen Heparin Anti-Xa Level POC ABG pH 7.302 L POC ABG pCO2 49.8 H POC ABG pO2 422 H POC Potassium POC Chloride Sodium Potassium Chloride Carbon Dioxide POC BUN BUN Creatinine Glucose POC Glucose 129 H Calcium Magnesium AST Alkaline Phosphatase Lactate Dehydrogenase Total Creatine Kinase Total Protein Albumin Urine WBC (Auto) Crossmatch See Detail 07/03/16 07/04/16 07/04/16 23:09 04:30 04:30 WBC 19.6 H RBC 3.21 L Hgb 9.4 L POC Hgb Hct 28.2 L POC Hct MCH MCHC RDW Plt Count Lymph % (Auto) 6.5 L Tucker % (Auto) Lymph # Tucker # 1.2 H Baso # Seg Neutrophils % 86.4 H Seg Neuts % (Manual) Lymphocytes % (Manual) Monocytes % (Manual) Nucleated RBC % Seg Neutrophils # 16.9 H Seg Neutrophils # Man Lymphocytes # (Manual) Monocytes # (Manual) PT INR APTT Fibrinogen Heparin Anti-Xa Level POC ABG pH POC ABG pCO2 POC ABG pO2 POC Potassium POC Chloride Sodium Potassium 3.5 L D Chloride 111.2 H Carbon Dioxide 20 L POC BUN BUN 18 H Creatinine Glucose POC Glucose 111 H Calcium 7.0 L Magnesium AST Alkaline Phosphatase Lactate Dehydrogenase Total Creatine Kinase Total Protein Albumin Urine WBC (Auto) Crossmatch 07/04/16 07/04/16 07/04/16 05:44 12:50 14:33 WBC RBC Hgb POC Hgb Hct POC Hct MCH MCHC RDW Plt Count Lymph % (Auto) Tucker % (Auto) Lymph # Tucker # Baso # Seg Neutrophils % Seg Neuts % (Manual) Lymphocytes % (Manual) Monocytes % (Manual) Nucleated RBC % Seg Neutrophils # Seg Neutrophils # Man Lymphocytes # (Manual) Monocytes # (Manual) PT INR APTT Fibrinogen Heparin Anti-Xa Level POC ABG pH 7.465 H 7.468 H POC ABG pCO2 29.5 L 29.1 L 33.1 L POC ABG pO2 110 H 39 L POC Potassium POC Chloride Sodium Potassium Chloride Carbon Dioxide POC BUN BUN Creatinine Glucose POC Glucose Calcium Magnesium AST Alkaline Phosphatase Lactate Dehydrogenase Total Creatine Kinase Total Protein Albumin Urine WBC (Auto) Crossmatch 07/04/16 07/05/16 07/05/16 16:49 00:20 04:19 WBC 16.2 H RBC 3.44 L Hgb POC Hgb Hct POC Hct MCH MCHC RDW Plt Count Lymph % (Auto) 5.2 L Tucker % (Auto) 7.5 H Lymph # 0.8 L Tucker # 1.2 H Baso # Seg Neutrophils % 86.5 H Seg Neuts % (Manual) Lymphocytes % (Manual) Monocytes % (Manual) Nucleated RBC % Seg Neutrophils # 14.0 H Seg Neutrophils # Man Lymphocytes # (Manual) Monocytes # (Manual) PT INR APTT Fibrinogen Heparin Anti-Xa Level POC ABG pH POC ABG pCO2 31.1 L POC ABG pO2 110 H POC Potassium POC Chloride Sodium Potassium Chloride Carbon Dioxide POC BUN BUN Creatinine Glucose POC Glucose 168 H Calcium Magnesium AST Alkaline Phosphatase Lactate Dehydrogenase Total Creatine Kinase Total Protein Albumin Urine WBC (Auto) Crossmatch 07/05/16 07/05/16 07/05/16 04:19 06:01 09:54 WBC RBC Hgb POC Hgb Hct POC Hct MCH MCHC RDW Plt Count Lymph % (Auto) Tucker % (Auto) Lymph # Tucker # Baso # Seg Neutrophils % Seg Neuts % (Manual) Lymphocytes % (Manual) Monocytes % (Manual) Nucleated RBC % Seg Neutrophils # Seg Neutrophils # Man Lymphocytes # (Manual) Monocytes # (Manual) PT INR APTT Fibrinogen Heparin Anti-Xa Level POC ABG pH POC ABG pCO2 POC ABG pO2 POC Potassium POC Chloride Sodium 146 H Potassium 3.5 L Chloride 109.1 H Carbon Dioxide POC BUN BUN Creatinine Glucose 135 H POC Glucose 146 H 284 H Calcium 7.8 L Magnesium AST Alkaline Phosphatase Lactate Dehydrogenase Total Creatine Kinase Total Protein Albumin Urine WBC (Auto) Crossmatch 07/05/16 07/06/16 07/06/16 13:35 04:40 04:40 WBC 17.7 H RBC 3.32 L Hgb 9.8 L POC Hgb Hct 29.8 L POC Hct MCH MCHC RDW Plt Count Lymph % (Auto) Tucker % (Auto) Lymph # Tucker # Baso # Seg Neutrophils % Seg Neuts % (Manual) 85.0 H Lymphocytes % (Manual) 4.0 L Monocytes % (Manual) 10.0 H Nucleated RBC % Seg Neutrophils # Seg Neutrophils # Man 15.0 H Lymphocytes # (Manual) 0.7 L Monocytes # (Manual) 1.8 H PT INR APTT Fibrinogen Heparin Anti-Xa Level POC ABG pH POC ABG pCO2 POC ABG pO2 POC Potassium POC Chloride Sodium Potassium 3.5 L Chloride Carbon Dioxide 21 L POC BUN BUN Creatinine Glucose 108 H POC Glucose 130 H Calcium 7.8 L Magnesium AST Alkaline Phosphatase Lactate Dehydrogenase Total Creatine Kinase Total Protein Albumin Urine WBC (Auto) Crossmatch 07/06/16 07/06/16 07/06/16 07:46 11:49 15:31 WBC RBC Hgb POC Hgb Hct POC Hct MCH MCHC RDW Plt Count Lymph % (Auto) Tucker % (Auto) Lymph # Tucker # Baso # Seg Neutrophils % Seg Neuts % (Manual) Lymphocytes % (Manual) Monocytes % (Manual) Nucleated RBC % Seg Neutrophils # Seg Neutrophils # Man Lymphocytes # (Manual) Monocytes # (Manual) PT INR APTT Fibrinogen Heparin Anti-Xa Level POC ABG pH POC ABG pCO2 POC ABG pO2 POC Potassium POC Chloride Sodium Potassium Chloride Carbon Dioxide POC BUN BUN Creatinine Glucose POC Glucose 149 H 146 H 135 H Calcium Magnesium AST Alkaline Phosphatase Lactate Dehydrogenase Total Creatine Kinase Total Protein Albumin Urine WBC (Auto) Crossmatch 07/06/16 07/06/16 07/07/16 17:17 20:59 04:53 WBC 15.5 H RBC 3.55 L Hgb POC Hgb Hct POC Hct MCH MCHC RDW Plt Count Lymph % (Auto) 4.9 L Tucker % (Auto) Lymph # 0.8 L Tucker # 0.9 H Baso # Seg Neutrophils % 87.9 H Seg Neuts % (Manual) Lymphocytes % (Manual) Monocytes % (Manual) Nucleated RBC % Seg Neutrophils # 13.7 H Seg Neutrophils # Man Lymphocytes # (Manual) Monocytes # (Manual) PT INR APTT Fibrinogen Heparin Anti-Xa Level POC ABG pH POC ABG pCO2 POC ABG pO2 POC Potassium POC Chloride Sodium Potassium Chloride Carbon Dioxide POC BUN BUN Creatinine Glucose POC Glucose 140 H Calcium Magnesium AST Alkaline Phosphatase Lactate Dehydrogenase Total Creatine Kinase Total Protein Albumin Urine WBC (Auto) 67.0 H Crossmatch 07/07/16 07/07/16 07/07/16 04:53 06:13 07:15 WBC RBC Hgb POC Hgb Hct POC Hct MCH MCHC RDW Plt Count Lymph % (Auto) Tucker % (Auto) Lymph # Tucker # Baso # Seg Neutrophils % Seg Neuts % (Manual) Lymphocytes % (Manual) Monocytes % (Manual) Nucleated RBC % Seg Neutrophils # Seg Neutrophils # Man Lymphocytes # (Manual) Monocytes # (Manual) PT INR APTT Fibrinogen Heparin Anti-Xa Level POC ABG pH POC ABG pCO2 POC ABG pO2 POC Potassium POC Chloride Sodium Potassium 3.4 L Chloride Carbon Dioxide POC BUN BUN Creatinine Glucose 104 H POC Glucose 122 H 134 H Calcium 8.0 L Magnesium AST Alkaline Phosphatase Lactate Dehydrogenase Total Creatine Kinase Total Protein Albumin Urine WBC (Auto) Crossmatch 07/07/16 07/07/16 07/07/16 08:06 08:06 10:31 WBC RBC Hgb POC Hgb Hct POC Hct MCH MCHC RDW Plt Count Lymph % (Auto) Tucker % (Auto) Lymph # Tucker # Baso # Seg Neutrophils % Seg Neuts % (Manual) Lymphocytes % (Manual) Monocytes % (Manual) Nucleated RBC % Seg Neutrophils # Seg Neutrophils # Man Lymphocytes # (Manual) Monocytes # (Manual) PT INR APTT Fibrinogen Heparin Anti-Xa Level POC ABG pH POC ABG pCO2 POC ABG pO2 POC Potassium POC Chloride Sodium Potassium Chloride Carbon Dioxide POC BUN BUN Creatinine Glucose 111 H POC Glucose 145 H Calcium 7.9 L Magnesium AST 53 H Alkaline Phosphatase 164 H Lactate Dehydrogenase Total Creatine Kinase Total Protein 6.2 L Albumin 1.4 L Urine WBC (Auto) Crossmatch See Detail 07/07/16 07/07/16 07/07/16 12:08 13:57 16:44 WBC RBC Hgb 9.7 L POC Hgb Hct 30.1 L POC Hct MCH MCHC RDW Plt Count Lymph % (Auto) Tucker % (Auto) Lymph # Tucker # Baso # Seg Neutrophils % Seg Neuts % (Manual) Lymphocytes % (Manual) Monocytes % (Manual) Nucleated RBC % Seg Neutrophils # Seg Neutrophils # Man Lymphocytes # (Manual) Monocytes # (Manual) PT INR APTT Fibrinogen Heparin Anti-Xa Level POC ABG pH POC ABG pCO2 POC ABG pO2 POC Potassium POC Chloride Sodium Potassium Chloride Carbon Dioxide POC BUN BUN Creatinine Glucose POC Glucose 159 H 173 H Calcium Magnesium AST Alkaline Phosphatase Lactate Dehydrogenase Total Creatine Kinase Total Protein Albumin Urine WBC (Auto) Crossmatch 07/07/16 07/08/16 07/08/16 23:31 07:27 12:16 WBC RBC Hgb POC Hgb Hct POC Hct MCH MCHC RDW Plt Count Lymph % (Auto) Tucker % (Auto) Lymph # Tucker # Baso # Seg Neutrophils % Seg Neuts % (Manual) Lymphocytes % (Manual) Monocytes % (Manual) Nucleated RBC % Seg Neutrophils # Seg Neutrophils # Man Lymphocytes # (Manual) Monocytes # (Manual) PT INR APTT Fibrinogen Heparin Anti-Xa Level POC ABG pH POC ABG pCO2 POC ABG pO2 POC Potassium POC Chloride Sodium Potassium Chloride Carbon Dioxide POC BUN BUN Creatinine Glucose POC Glucose 163 H 149 H 150 H Calcium Magnesium AST Alkaline Phosphatase Lactate Dehydrogenase Total Creatine Kinase Total Protein Albumin Urine WBC (Auto) Crossmatch 07/08/16 07/08/16 07/08/16 12:50 16:46 21:45 WBC RBC Hgb POC Hgb Hct POC Hct MCH MCHC RDW Plt Count Lymph % (Auto) Tucker % (Auto) Lymph # Tucker # Baso # Seg Neutrophils % Seg Neuts % (Manual) Lymphocytes % (Manual) Monocytes % (Manual) Nucleated RBC % Seg Neutrophils # Seg Neutrophils # Man Lymphocytes # (Manual) Monocytes # (Manual) PT INR APTT Fibrinogen Heparin Anti-Xa Level POC ABG pH POC ABG pCO2 POC ABG pO2 POC Potassium POC Chloride Sodium Potassium Chloride Carbon Dioxide 21 L POC BUN BUN Creatinine Glucose 126 H POC Glucose 143 H 134 H Calcium 7.5 L Magnesium AST Alkaline Phosphatase Lactate Dehydrogenase Total Creatine Kinase Total Protein Albumin Urine WBC (Auto) Crossmatch 07/09/16 07/09/16 07/09/16 07:31 07:31 08:07 WBC RBC Hgb POC Hgb Hct POC Hct MCH MCHC RDW Plt Count Lymph % (Auto) Tucker % (Auto) Lymph # Tucker # Baso # Seg Neutrophils % Seg Neuts % (Manual) Lymphocytes % (Manual) Monocytes % (Manual) Nucleated RBC % Seg Neutrophils # Seg Neutrophils # Man Lymphocytes # (Manual) Monocytes # (Manual) PT INR APTT Fibrinogen Heparin Anti-Xa Level POC ABG pH POC ABG pCO2 POC ABG pO2 POC Potassium POC Chloride Sodium Potassium Chloride Carbon Dioxide POC BUN BUN Creatinine Glucose 117 H POC Glucose 132 H Calcium 7.5 L Magnesium AST Alkaline Phosphatase 136 H Lactate Dehydrogenase 285 H Total Creatine Kinase 297 H Total Protein 5.4 L Albumin 1.5 L Urine WBC (Auto) Crossmatch 07/09/16 07/09/16 07/09/16 09:55 11:10 16:26 WBC 13.4 H RBC 1.95 L Hgb 5.8 L* D POC Hgb Hct 17.7 L* D POC Hct MCH MCHC RDW 15.5 H Plt Count Lymph % (Auto) 9.4 L Tucker % (Auto) 8.3 H Lymph # Tucker # 1.1 H Baso # Seg Neutrophils % 81.2 H Seg Neuts % (Manual) Lymphocytes % (Manual) Monocytes % (Manual) Nucleated RBC % Seg Neutrophils # 10.9 H Seg Neutrophils # Man Lymphocytes # (Manual) Monocytes # (Manual) PT INR APTT Fibrinogen Heparin Anti-Xa Level POC ABG pH POC ABG pCO2 POC ABG pO2 POC Potassium POC Chloride Sodium Potassium Chloride Carbon Dioxide POC BUN BUN Creatinine Glucose POC Glucose 240 H 113 H Calcium Magnesium AST Alkaline Phosphatase Lactate Dehydrogenase Total Creatine Kinase Total Protein Albumin Urine WBC (Auto) Crossmatch 07/09/16 07/10/16 07/10/16 21:45 04:10 09:03 WBC 15.1 H RBC 3.00 L Hgb 8.8 L D POC Hgb Hct 26.2 L D POC Hct MCH MCHC RDW 15.4 H Plt Count Lymph % (Auto) 8.4 L Tucker % (Auto) 8.4 H Lymph # Tucker # 1.3 H Baso # Seg Neutrophils % 82.5 H Seg Neuts % (Manual) Lymphocytes % (Manual) Monocytes % (Manual) Nucleated RBC % Seg Neutrophils # 12.5 H Seg Neutrophils # Man Lymphocytes # (Manual) Monocytes # (Manual) PT INR APTT Fibrinogen Heparin Anti-Xa Level POC ABG pH POC ABG pCO2 POC ABG pO2 POC Potassium POC Chloride Sodium Potassium Chloride Carbon Dioxide POC BUN BUN Creatinine Glucose POC Glucose 113 H 122 H Calcium Magnesium AST Alkaline Phosphatase Lactate Dehydrogenase Total Creatine Kinase Total Protein Albumin Urine WBC (Auto) Crossmatch 07/10/16 07/10/16 07/10/16 11:38 15:36 21:45 WBC RBC Hgb POC Hgb Hct POC Hct MCH MCHC RDW Plt Count Lymph % (Auto) Tucker % (Auto) Lymph # Tucker # Baso # Seg Neutrophils % Seg Neuts % (Manual) Lymphocytes % (Manual) Monocytes % (Manual) Nucleated RBC % Seg Neutrophils # Seg Neutrophils # Man Lymphocytes # (Manual) Monocytes # (Manual) PT INR APTT Fibrinogen Heparin Anti-Xa Level POC ABG pH POC ABG pCO2 POC ABG pO2 POC Potassium POC Chloride Sodium Potassium Chloride Carbon Dioxide POC BUN BUN Creatinine Glucose POC Glucose 146 H 131 H 141 H Calcium Magnesium AST Alkaline Phosphatase Lactate Dehydrogenase Total Creatine Kinase Total Protein Albumin Urine WBC (Auto) Crossmatch 07/11/16 07/11/16 07/11/16 05:10 07:40 11:45 WBC RBC Hgb POC Hgb Hct POC Hct MCH MCHC RDW Plt Count Lymph % (Auto) Tucker % (Auto) Lymph # Tucker # Baso # Seg Neutrophils % Seg Neuts % (Manual) Lymphocytes % (Manual) Monocytes % (Manual) Nucleated RBC % Seg Neutrophils # Seg Neutrophils # Man Lymphocytes # (Manual) Monocytes # (Manual) PT INR APTT Fibrinogen Heparin Anti-Xa Level POC ABG pH POC ABG pCO2 POC ABG pO2 POC Potassium POC Chloride Sodium Potassium Chloride Carbon Dioxide POC BUN BUN Creatinine Glucose 107 H POC Glucose 114 H 116 H Calcium 7.7 L Magnesium AST 81 H Alkaline Phosphatase 153 H Lactate Dehydrogenase Total Creatine Kinase Total Protein 6.0 L Albumin 1.8 L Urine WBC (Auto) Crossmatch 07/11/16 07/11/16 07/12/16 16:22 19:45 08:39 WBC RBC Hgb POC Hgb Hct POC Hct MCH MCHC RDW Plt Count Lymph % (Auto) Tucker % (Auto) Lymph # Tucker # Baso # Seg Neutrophils % Seg Neuts % (Manual) Lymphocytes % (Manual) Monocytes % (Manual) Nucleated RBC % Seg Neutrophils # Seg Neutrophils # Man Lymphocytes # (Manual) Monocytes # (Manual) PT INR APTT Fibrinogen Heparin Anti-Xa Level POC ABG pH POC ABG pCO2 POC ABG pO2 POC Potassium POC Chloride Sodium Potassium Chloride Carbon Dioxide POC BUN BUN Creatinine Glucose POC Glucose 110 H 106 H 124 H Calcium Magnesium AST Alkaline Phosphatase Lactate Dehydrogenase Total Creatine Kinase Total Protein Albumin Urine WBC (Auto) Crossmatch 07/12/16 07/12/16 07/13/16 11:31 16:36 07:05 WBC 12.4 H RBC 2.93 L Hgb 8.5 L POC Hgb Hct 25.6 L POC Hct MCH MCHC RDW Plt Count Lymph % (Auto) 11.2 L Tucker % (Auto) 7.5 H Lymph # Tucker # 0.9 H Baso # Seg Neutrophils % 80.6 H Seg Neuts % (Manual) Lymphocytes % (Manual) Monocytes % (Manual) Nucleated RBC % Seg Neutrophils # 10.0 H Seg Neutrophils # Man Lymphocytes # (Manual) Monocytes # (Manual) PT INR APTT Fibrinogen Heparin Anti-Xa Level POC ABG pH POC ABG pCO2 POC ABG pO2 POC Potassium POC Chloride Sodium Potassium Chloride Carbon Dioxide POC BUN BUN Creatinine Glucose POC Glucose 128 H 119 H Calcium Magnesium AST Alkaline Phosphatase Lactate Dehydrogenase Total Creatine Kinase Total Protein Albumin Urine WBC (Auto) Crossmatch 07/13/16 07/13/16 07/13/16 07:30 11:41 13:45 WBC RBC Hgb POC Hgb Hct POC Hct MCH MCHC RDW Plt Count Lymph % (Auto) Tucker % (Auto) Lymph # Tucker # Baso # Seg Neutrophils % Seg Neuts % (Manual) Lymphocytes % (Manual) Monocytes % (Manual) Nucleated RBC % Seg Neutrophils # Seg Neutrophils # Man Lymphocytes # (Manual) Monocytes # (Manual) PT INR APTT Fibrinogen Heparin Anti-Xa Level POC ABG pH POC ABG pCO2 POC ABG pO2 POC Potassium POC Chloride Sodium Potassium Chloride Carbon Dioxide POC BUN BUN Creatinine Glucose POC Glucose 133 H 129 H Calcium Magnesium AST Alkaline Phosphatase Lactate Dehydrogenase Total Creatine Kinase Total Protein Albumin Urine WBC (Auto) Crossmatch See Detail 07/13/16 07/13/16 07/14/16 15:28 23:29 08:15 WBC RBC Hgb POC Hgb Hct POC Hct MCH MCHC RDW Plt Count Lymph % (Auto) Tucker % (Auto) Lymph # Tucker # Baso # Seg Neutrophils % Seg Neuts % (Manual) Lymphocytes % (Manual) Monocytes % (Manual) Nucleated RBC % Seg Neutrophils # Seg Neutrophils # Man Lymphocytes # (Manual) Monocytes # (Manual) PT INR APTT Fibrinogen Heparin Anti-Xa Level POC ABG pH POC ABG pCO2 POC ABG pO2 POC Potassium POC Chloride Sodium Potassium Chloride Carbon Dioxide POC BUN BUN Creatinine Glucose POC Glucose 119 H 113 H 130 H Calcium Magnesium AST Alkaline Phosphatase Lactate Dehydrogenase Total Creatine Kinase Total Protein Albumin Urine WBC (Auto) Crossmatch 07/14/16 07/14/16 07/14/16 08:30 12:12 17:00 WBC RBC Hgb POC Hgb Hct POC Hct MCH MCHC RDW Plt Count Lymph % (Auto) [place] % (Auto) Lymph # [place] # Baso # Seg Neutrophils % Seg Neuts % (Manual) Lymphocytes % (Manual) Monocytes % (Manual) Nucleated RBC % Seg Neutrophils # Seg Neutrophils # Man Lymphocytes # (Manual) Monocytes # (Manual) PT INR APTT Fibrinogen Heparin Anti-Xa Level POC ABG pH POC ABG pCO2 POC ABG pO2 POC Potassium POC Chloride Sodium 135 L Potassium Chloride Carbon Dioxide POC BUN BUN Creatinine Glucose 113 H POC Glucose 115 H 119 H Calcium 7.8 L Magnesium AST Alkaline Phosphatase Lactate Dehydrogenase Total Creatine Kinase Total Protein Albumin Urine WBC (Auto) Crossmatch 07/14/16 07/15/16 07/15/16 Unknown 04:15 04:15 WBC 13.9 H 15.3 H RBC Hgb POC Hgb Hct POC Hct MCH MCHC RDW Plt Count Lymph % (Auto) 9.9 L 9.3 L [place] % (Auto) Lymph # [place] # 0.9 H Baso # Seg Neutrophils % 83.8 H 83.9 H Seg Neuts % (Manual) Lymphocytes % (Manual) Monocytes % (Manual) Nucleated RBC % Seg Neutrophils # 11.7 H 12.9 H Seg Neutrophils # Man Lymphocytes # (Manual) Monocytes # (Manual) PT INR APTT Fibrinogen Heparin Anti-Xa Level POC ABG pH POC ABG pCO2 POC ABG pO2 POC Potassium POC Chloride Sodium 131 L Potassium Chloride 96.5 L Carbon Dioxide POC BUN BUN Creatinine 0.6 L Glucose 104 H POC Glucose Calcium 8.0 L Magnesium AST Alkaline Phosphatase Lactate Dehydrogenase Total Creatine Kinase Total Protein Albumin Urine WBC (Auto) Crossmatch 07/15/16 07/15/16 07/15/16 11:29 16:06 22:05 WBC RBC Hgb POC Hgb Hct POC Hct MCH MCHC RDW Plt Count Lymph % (Auto) [place] % (Auto) Lymph # [place] # Baso # Seg Neutrophils % Seg Neuts % (Manual) Lymphocytes % (Manual) Monocytes % (Manual) Nucleated RBC % Seg Neutrophils # Seg Neutrophils # Man Lymphocytes # (Manual) Monocytes # (Manual) PT INR APTT Fibrinogen Heparin Anti-Xa Level POC ABG pH POC ABG pCO2 POC ABG pO2 POC Potassium POC Chloride Sodium Potassium Chloride Carbon Dioxide POC BUN BUN Creatinine Glucose POC Glucose 114 H 165 H 127 H Calcium Magnesium AST Alkaline Phosphatase Lactate Dehydrogenase Total Creatine Kinase Total Protein Albumin Urine WBC (Auto) Crossmatch 07/16/16 07/16/16 07/16/16 07:36 07:36 07:39 WBC RBC 2.86 L Hgb 8.5 L POC Hgb Hct 25.0 L D POC Hct MCH MCHC RDW Plt Count Lymph % (Auto) [place] % (Auto) 8.5 H Lymph # [place] # 0.9 H Baso # Seg Neutrophils % 77.7 H Seg Neuts % (Manual) Lymphocytes % (Manual) Monocytes % (Manual) Nucleated RBC % Seg Neutrophils # 8.5 H Seg Neutrophils # Man Lymphocytes # (Manual) Monocytes # (Manual) PT INR APTT Fibrinogen Heparin Anti-Xa Level POC ABG pH POC ABG pCO2 POC ABG pO2 POC Potassium POC Chloride Sodium 136 L Potassium Chloride Carbon Dioxide POC BUN BUN Creatinine 0.5 L Glucose 133 H POC Glucose 137 H Calcium 8.0 L Magnesium AST Alkaline Phosphatase Lactate Dehydrogenase Total Creatine Kinase Total Protein Albumin Urine WBC (Auto) Crossmatch 07/16/16 07/16/16 07/17/16 11:43 22:10 05:00 WBC 11.6 H RBC 2.95 L Hgb 8.5 L POC Hgb Hct 25.7 L POC Hct MCH MCHC RDW Plt Count Lymph % (Auto) [place] % (Auto) 8.4 H Lymph # [place] # 1.0 H Baso # Seg Neutrophils % 76.2 H Seg Neuts % (Manual) Lymphocytes % (Manual) Monocytes % (Manual) Nucleated RBC % Seg Neutrophils # 8.9 H Seg Neutrophils # Man Lymphocytes # (Manual) Monocytes # (Manual) PT INR APTT Fibrinogen Heparin Anti-Xa Level POC ABG pH POC ABG pCO2 POC ABG pO2 POC Potassium POC Chloride Sodium Potassium Chloride Carbon Dioxide POC BUN BUN Creatinine Glucose POC Glucose 154 H 140 H Calcium Magnesium AST Alkaline Phosphatase Lactate Dehydrogenase Total Creatine Kinase Total Protein Albumin Urine WBC (Auto) Crossmatch 07/17/16 07/17/16 07/17/16 05:00 07:32 12:27 WBC RBC Hgb POC Hgb Hct POC Hct MCH MCHC RDW Plt Count Lymph % (Auto) [place] % (Auto) Lymph # [place] # Baso # Seg Neutrophils % Seg Neuts % (Manual) Lymphocytes % (Manual) Monocytes % (Manual) Nucleated RBC % Seg Neutrophils # Seg Neutrophils # Man Lymphocytes # (Manual) Monocytes # (Manual) PT INR APTT Fibrinogen Heparin Anti-Xa Level POC ABG pH POC ABG pCO2 POC ABG pO2 POC Potassium POC Chloride Sodium Potassium Chloride Carbon Dioxide POC BUN BUN Creatinine 0.6 L Glucose 115 H POC Glucose 135 H 140 H Calcium Magnesium 1.4 L AST Alkaline Phosphatase Lactate Dehydrogenase Total Creatine Kinase Total Protein Albumin Urine WBC (Auto) Crossmatch 07/17/16 07/18/16 07/18/16 16:23 05:00 07:31 WBC RBC 2.67 L Hgb 7.7 L POC Hgb Hct 23.2 L POC Hct MCH MCHC RDW Plt Count 447 H Lymph % (Auto) [place] % (Auto) 8.5 H Lymph # [place] # Baso # Seg Neutrophils % 73.1 H Seg Neuts % (Manual) Lymphocytes % (Manual) Monocytes % (Manual) Nucleated RBC % Seg Neutrophils # Seg Neutrophils # Man Lymphocytes # (Manual) Monocytes # (Manual) PT INR APTT Fibrinogen Heparin Anti-Xa Level POC ABG pH POC ABG pCO2 POC ABG pO2 POC Potassium POC Chloride Sodium Potassium Chloride Carbon Dioxide POC BUN BUN Creatinine Glucose POC Glucose 127 H 119 H Calcium Magnesium AST Alkaline Phosphatase Lactate Dehydrogenase Total Creatine Kinase Total Protein Albumin Urine WBC (Auto) Crossmatch 07/18/16 07/18/16 07/19/16 11:45 16:56 05:00 WBC RBC 2.74 L Hgb 7.9 L POC Hgb Hct 24.0 L POC Hct MCH MCHC RDW Plt Count 471 H Lymph % (Auto) [place] % (Auto) 9.3 H Lymph # [place] # Baso # Seg Neutrophils % Seg Neuts % (Manual) Lymphocytes % (Manual) Monocytes % (Manual) Nucleated RBC % Seg Neutrophils # Seg Neutrophils # Man Lymphocytes # (Manual) Monocytes # (Manual) PT INR APTT Fibrinogen Heparin Anti-Xa Level POC ABG pH POC ABG pCO2 POC ABG pO2 POC Potassium POC Chloride Sodium Potassium Chloride Carbon Dioxide POC BUN BUN Creatinine Glucose POC Glucose 139 H 116 H Calcium Magnesium AST Alkaline Phosphatase Lactate Dehydrogenase Total Creatine Kinase Total Protein Albumin Urine WBC (Auto) Crossmatch Chest x-ray: image reviewed
--- NOTE | 2016-07-19 12:38 | Event Note ---
renal function normalized, Will s/o she will need followup with urology please call if needed
--- NOTE | 2016-07-19 12:51 | Progress Note ---
Assessment and Plan Current antibiotics: Zosyn 4.5 grams IV q8h 07/08 --> Previous antibiotics: Zosyn 2.25 g IV q8h 06/21-06/24 Cefazolin perioperatively ASSESSMENT: Cande Ge is a 55-year-old female with severe peripheral vascular disease, type 2 DM with peripheral neuropathy and hypertension who was admitted to [facility] as an outpatient with left lower extremity pain at rest for her cutaneous intervention which was unsuccessful and subsequently underwent left femoral endarterectomy and left iliac stenting and left femoral-popliteal bypass on 06/16 , urgent thrombectomies on 06/20 and right femoral endarterectomy with patch angioplasty on 07/03. She also had 2 cardiac arrests on 06/20 requiring resuscitation and intubation. She developed evidence of a retroperitoneal hematoma and ureteral obstruction and underwent bilateral ureteral stenting on 06/27. She has had a low-grade fever and leukocytosis. Problem list: 1. 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 Severe peripheral vascular disease -Unsuccessful attempt at percutaneous left lower extremity revascularization 06/13 -Left femoral endarterectomy, left iliac stenting and left femoral-popliteal bypass on 06/16 -Left lower extremity thrombectomies on 06/20 -Right femoral endarterectomy with patch angioplasty on 07/03 -Status post left AKA 07/15 -with dehisced wound. 3. Leukocytosis -Likely reactive -Patient has multiple reasons for leukocytosis including retroperitoneal hematoma , GI bleeding and multiple surgeries -Status post left groin infection and infected Dacron patch -Resolving 4. Low-grade fever -Resolved 5. Right groin wound infection -Purulent material seen at surgery 07/15/16 6. Retroperitoneal hematoma -As seen on CT scan 06/27 -Resolving 7. Bilateral hydroureteronephrosis -Status post bilateral ureteral stenting 06/27 8. Status post cardiopulmonary arrests X 2 -06/20 -Mechanical ventilatory support until 07/05 9. REJI -Creatinine peaked at 4.8 on 06/27 -Likely secondary to ATN -Resolved 10. Anemia -Likely multifactorial secondary to bleeding and chronic disease 10. Type 2 DM PLAN: 1. Continue Zosyn 2. Continue local wound care 3. I discussed 07/17/2016 with vascular and indeed there is retained material on the left as well as the finding of pus in the right groin. She will thus require a long-term course of antibiotics postoperatively (at least 4 weeks) 4. Continued supportive measures and close observation Soham Iverson MD [facility] Office: [phone] Subjective Date of service: 07/19/16 Principal diagnosis: Infected vascular graft; s/p cardiopulmonary arrest Interval history: Patient's awake and interactive. Patient asking "when she can go home and states she is tired of being in the hospital. Patient is informed that she needs long-term antibiotics after her extensive hospital stay. Patient is admitted distress. Review of systems: Patient denies chest pain chest pressure. Patient denies nausea vomiting cough. Objective - Exam Narrative Exam: GENERAL: Well-developed, well-nourished appearing female who appears somewhat older than her stated age and appears chronically ill but is in no acute distress. She is lying in bed and looks stronger than in the past. HEAD: Normocephalic. No lesions seen. EYES: Pupils are equal reactive to light and accommodation. There is no scleral icterus. Optic fundi are not examined. EARS: External ears are normal. THROAT: Oropharynx is normal with no evidence of oral candidiasis or pharyngitis. Patient is edentulous. NECK: Supple. No enlargement of the thyroid gland. No significant cervical lymphadenopathy. No jugular venous distention at 60. LUNGS: Clear with no adventitious sounds. HEART: Regular rate with occasional extra beat heard. S1 and S2 are normal. There are no murmurs, gallops, clicks or rubs heard. ABDOMEN: Soft and nontender. Liver and spleen are not palpably enlarged or tender. No palpable masses. Bowel sounds are normoactive. EXTREMITIES: No peripheral lymphadenopathy or clubbing. Right lower extremity edema but no signs of infection. Status post left AKA with wound VAC in place with no signs of active infection. Left groin wound VAC in place. R Chest TLC in place SKIN: No rash : Normal external female. No Gillespie catheter. NEUROLOGIC: Bilateral lower extremity weakness. No other focal findings. - Constitutional Vitals: Vital Signs Temp Pulse Resp BP Pulse Ox 98.1 F 79 20 116/59 100 07/19/16 07:52 07/19/16 12:42 07/19/16 12:42 07/19/16 12:42 07/19/16 04:00 Temperature -Last 24 Hours Temperature 98.1 F Temperature 97.5 F Temperature 98.3 F Temperature 98.1 F Temperature 97 F Temperature 97.3 F - Labs CBC & Chem 7: 07/19/16 05:00 07/17/16 05:00 Labs: Abnormal lab results 07/18/16 07/19/16 Range/Units 16:56 05:00 RBC 2.74 L (3.65-5.03) M/mm3 Hgb 7.9 L (10.1-14.3) gm/dl Hct 24.0 L (30.3-42.9) % Plt Count 471 H (140-440) K/mm3 [place] % (Auto) 9.3 H (0.0-7.3) % POC Glucose 116 H (70-105)
--- NOTE | 2016-07-19 13:49 | XRay Report ---
FINAL REPORT PROCEDURE: XR CHEST 1V AP TECHNIQUE: Chest radiograph anteroposterior view. CPT 33319 HISTORY: pleural effusion COMPARISON: Chest one view 07/09/2016 FINDINGS: Right IJ CVC is again seen, catheter tip at the cavoatrial junction. Small left pleural effusion is again noted as well as slightly more conspicuous airspace disease at the left lung base/infrahilar. There is no pneumothorax. The heart is normal in size. There is no acute osseous abnormality. IMPRESSION: Right IJ CVC again noted. Small left pleural effusion. Mildly increased left basilar airspace disease.
--- NOTE | 2016-07-19 16:37 | Progress Note ---
Assessment and Plan Assessment and plan: 1. Diabetes - BS in low 100s; continue Accu-Cheks and SSI as needed 2. Hypertension - BP controlled only on atenolol 3. PVD - status post left AKA; managed by vascular surgery 4. Right groin wound infection - local wound care, antibiotics per ID recommendation 5. Anemia - on iron supplementation, HGb low, but stable 6. DVT prophylaxis - per vascular surgery History Interval history: doing well, pain controlled, no complaints Hospitalist Physical - Constitutional Vitals: Temp Pulse Resp BP Pulse Ox 98.1 F 79 20 116/59 100 07/19/16 07:52 07/19/16 12:42 07/19/16 13:08 07/19/16 12:42 07/19/16 04:00 General appearance: Present: no acute distress - Neck Neck: Present: supple, normal ROM. Absent: masses or JVD - Respiratory Respiratory effort: normal Respiratory: bilateral: CTA, negative: rales, rhonchi - Cardiovascular Rhythm: regular Heart Sounds: Present: S1 & S2. Absent: systolic murmur - Extremities Extremities: no ischemia, abnormal (L AKA wound vac, L groin vac) - Abdominal General gastrointestinal: soft, non-tender, non-distended, normal bowel sounds - Neurologic Neurologic: no focal deficits Results - Labs CBC & Chem 7: 07/19/16 05:00 07/17/16 05:00 Labs: Laboratory Last Values WBC 8.5 K/mm3 (4.5-11.0) 07/19/16 05:00 RBC 2.74 M/mm3 (3.65-5.03) L 07/19/16 05:00 Hgb 7.9 gm/dl (10.1-14.3) L 07/19/16 05:00 POC Hgb 6.5 (12-17) L 06/16/16 18:07 Hct 24.0 % (30.3-42.9) L 07/19/16 05:00 POC Hct 19 (38-51) L 06/16/16 18:07 MCV 88 fl (79-97) 07/19/16 05:00 MCH 29 pg (28-32) 07/19/16 05:00 MCHC 33 % (30-34) 07/19/16 05:00 RDW 14.9 % (13.2-15.2) 07/19/16 05:00 Plt Count 471 K/mm3 (140-440) H 07/19/16 05:00 Lymph % (Auto) 21.8 % (13.4-35.0) 07/19/16 05:00 [place] % (Auto) 9.3 % (0.0-7.3) H 07/19/16 05:00 Eos % (Auto) 0.3 % (0.0-4.3) 07/19/16 05:00 Baso % (Auto) 0.4 % (0.0-1.8) 07/19/16 05:00 Lymph # 1.9 K/mm3 (1.2-5.4) 07/19/16 05:00 [place] # 0.8 K/mm3 (0.0-0.8) 07/19/16 05:00 Eos # 0.0 K/mm3 (0.0-0.4) 07/19/16 05:00 Baso # 0.0 K/mm3 (0.0-0.1) 07/19/16 05:00 Add Manual Diff TNR 07/09/16 07:31 Total Counted 100 07/06/16 04:40 Seg Neutrophils % 68.2 % (40.0-70.0) 07/19/16 05:00 Seg Neuts % (Manual) 85.0 % (40.0-70.0) H 07/06/16 04:40 Band Neutrophils % 0 % 07/06/16 04:40 Lymphocytes % (Manual) 4.0 % (13.4-35.0) L 07/06/16 04:40 Reactive Lymphs % (Man) 1.0 % 07/06/16 04:40 Monocytes % (Manual) 10.0 % (0.0-7.3) H 07/06/16 04:40 Eosinophils % (Manual) 0 % (0.0-4.3) 07/06/16 04:40 Basophils % (Manual) 0 % (0.0-1.8) 07/06/16 04:40 Metamyelocytes % 0 % 07/06/16 04:40 Myelocytes % 0 % 07/06/16 04:40 Promyelocytes % 0 % 07/06/16 04:40 Blast Cells % 0 % 07/06/16 04:40 Nucleated RBC % Not Reportable 07/06/16 04:40 Seg Neutrophils # 5.8 K/mm3 (1.8-7.7) 07/19/16 05:00 Seg Neutrophils # Man 15.0 K/mm3 (1.8-7.7) H 07/06/16 04:40 Band Neutrophils # 0.0 K/mm3 07/06/16 04:40 Lymphocytes # (Manual) 0.7 K/mm3 (1.2-5.4) L 07/06/16 04:40 Abs React Lymphs (Man) 0.2 K/mm3 07/06/16 04:40 Monocytes # (Manual) 1.8 K/mm3 (0.0-0.8) H 07/06/16 04:40 Eosinophils # (Manual) 0.0 K/mm3 (0.0-0.4) 07/06/16 04:40 Basophils # (Manual) 0.0 K/mm3 (0.0-0.1) 07/06/16 04:40 Metamyelocytes # 0.0 K/mm3 07/06/16 04:40 Myelocytes # 0.0 K/mm3 07/06/16 04:40 Promyelocytes # 0.0 K/mm3 07/06/16 04:40 Blast Cells # 0.0 K/mm3 07/06/16 04:40 WBC Morphology Not Reportable 07/06/16 04:40 Hypersegmented Neuts Not Reportable 07/06/16 04:40 Hyposegmented Neuts Not Reportable 07/06/16 04:40 Hypogranular Neuts Not Reportable 07/06/16 04:40 Smudge Cells Not Reportable 07/06/16 04:40 Toxic Granulation Not Reportable 07/06/16 04:40 Toxic Vacuolation Not Reportable 07/06/16 04:40 Dohle Bodies Not Reportable 07/06/16 04:40 Pelger-Huet Anomaly Not Reportable 07/06/16 04:40 Mary Rods Not Reportable 07/06/16 04:40 Platelet Estimate Appears normal 07/06/16 04:40 Clumped Platelets Not Reportable 07/06/16 04:40 Plt Clumps, EDTA Not Reportable 07/06/16 04:40 Large Platelets Not Reportable 07/06/16 04:40 Giant Platelets Not Reportable 07/06/16 04:40 Platelet Satelliting Not Reportable 07/06/16 04:40 Plt Morphology Comment Not Reportable 07/06/16 04:40 RBC Morphology Not Reportable 07/06/16 04:40 Dimorphic RBCs Not Reportable 07/06/16 04:40 Polychromasia Not Reportable 07/06/16 04:40 Hypochromasia Not Reportable 07/06/16 04:40 Poikilocytosis Not Reportable 07/06/16 04:40 Anisocytosis 1+ 07/06/16 04:40 Microcytosis Not Reportable 07/06/16 04:40 Macrocytosis Not Reportable 07/06/16 04:40 Spherocytes Not Reportable 07/06/16 04:40 Pappenheimer Bodies Not Reportable 07/06/16 04:40 Sickle Cells Not Reportable 07/06/16 04:40 Target Cells Not Reportable 07/06/16 04:40 Tear Drop Cells Not Reportable 07/06/16 04:40 Ovalocytes Not Reportable 07/06/16 04:40 Helmet Cells Not Reportable 07/06/16 04:40 Gaines-Slinger Bodies Not Reportable 07/06/16 04:40 Lennon Rings Not Reportable 07/06/16 04:40 Padmini Cells Not Reportable 07/06/16 04:40 Bite Cells Not Reportable 07/06/16 04:40 Crenated Cell Not Reportable 07/06/16 04:40 Elliptocytes Not Reportable 07/06/16 04:40 Acanthocytes (Spur) Not Reportable 07/06/16 04:40 Rouleaux Not Reportable 07/06/16 04:40 Hemoglobin C Crystals Not Reportable 07/06/16 04:40 Schistocytes Not Reportable 07/06/16 04:40 Malaria parasites Not Reportable 07/06/16 04:40 Sean Bodies Not Reportable 07/06/16 04:40 Haptoglobin 97 mg/dL (43-212) 07/09/16 14:09 Hem Pathologist Commnt No 07/06/16 04:40 PT 19.9 Sec. (12.2-14.9) H 06/26/16 22:57 INR 1.69 (0.87-1.13) H 06/26/16 22:57 APTT 32.8 Sec. (24.2-36.6) 06/26/16 22:57 Fibrinogen 522 mg/dl (211-480) H 06/13/16 09:45 Heparin Anti-Xa Level 0.45 U.I./ml (0.3-0.7) 06/29/16 20:31 POC ABG pH 7.436 (7.35-7.45) 07/04/16 16:49 POC ABG pCO2 31.1 (35-45) L 07/04/16 16:49 POC ABG pO2 110 (80-105) H 07/04/16 16:49 POC ABG HCO3 20.9 07/04/16 16:49 POC ABG Total CO2 22 07/04/16 16:49 POC ABG O2 Sat 99 07/04/16 16:49 POC ABG Base Excess -3 07/04/16 16:49 POC Sodium 146 mmol/L (138-146) 06/16/16 18:07 POC Potassium 3.5 (3.5-4.9) 06/16/16 18:07 POC Chloride 113 (98-109) H 06/16/16 18:07 FiO2 30 % 07/04/16 16:49 Sodium 137 mmol/L (137-145) 07/17/16 05:00 Potassium 3.9 mmol/L (3.6-5.0) 07/17/16 05:00 Chloride 101.3 mmol/L (98-107) 07/17/16 05:00 Carbon Dioxide 25 mmol/L (22-30) 07/17/16 05:00 Anion Gap 15 mmol/L 07/17/16 05:00 POC BUN 7 mg/dl (8-26) L 06/16/16 18:07 BUN 7 mg/dL (7-17) 07/17/16 05:00 Creatinine 0.6 mg/dL (0.7-1.2) L 07/17/16 05:00 Estimated GFR > 60 ml/min 07/17/16 05:00 BUN/Creatinine Ratio 11.66 % 07/17/16 05:00 Glucose 115 mg/dL (65-100) H 07/17/16 05:00 POC Glucose 132 (70-105) H 07/19/16 16:09 Calcium 8.5 mg/dL (8.4-10.2) 07/17/16 05:00 Magnesium 2.0 mg/dL (1.7-2.3) 07/19/16 05:00 Total Bilirubin 0.7 mg/dL (0.1-1.2) 07/11/16 05:10 AST 81 units/L (5-40) H 07/11/16 05:10 ALT 20 units/L (7-56) 07/11/16 05:10 Alkaline Phosphatase 153 units/L (35-129) H 07/11/16 05:10 Lactate Dehydrogenase 285 units/L (91-180) H 07/09/16 07:31 Total Creatine Kinase 297 units/L (30-135) H 07/09/16 07:31 Total Protein 6.0 g/dL (6.3-8.2) L 07/11/16 05:10 Albumin 1.8 g/dL (3.9-5) L 07/11/16 05:10 Albumin/Globulin Ratio 0.4 % 07/11/16 05:10 Urine Color Yellow (Yellow) 07/06/16 17:17 Urine Turbidity Slightly-cloudy (Clear) 07/06/16 17:17 Urine pH 6.0 (5.0-7.0) 07/06/16 17:17 Ur Specific [place] 1.011 (1.003-1.030) 07/06/16 17:17 Urine Protein 30 mg/dl mg/dL (Negative) 07/06/16 17:17 Urine Glucose (UA) Neg mg/dL (Negative) 07/06/16 17:17 Urine Ketones Neg mg/dL (Negative) 07/06/16 17:17 Urine Blood Lg (Negative) 07/06/16 17:17 Urine Nitrite Neg (Negative) 07/06/16 17:17 Urine Bilirubin Neg (Negative) 07/06/16 17:17 Urine Urobilinogen < 2.0 mg/dL (<2.0) 07/06/16 17:17 Ur Leukocyte Esterase Lg (Negative) 07/06/16 17:17 Urine WBC (Auto) 67.0 /HPF (0.0-6.0) H 07/06/16 17:17 Urine RBC (Auto) > 182.0 /HPF (0.0-6.0) 07/06/16 17:17 Blood Type O POSITIVE 07/13/16 13:45 Antibody Screen Negative 07/13/16 13:45 Crossmatch See Detail 07/13/16 13:45
[2016-07-20] MEDS: ZOSYN/NS 4.5GM/100ML 100 ML IV SCH ×3 (04:00→11:50)
[2016-07-20] MEDS: MORPHINE IV PRN ×3 (04:06→22:00)
[2016-07-20] MEDS: PERCOCET 5/325 PO PRN (10:21)
[2016-07-20] MEDS: PLAVIX PO SCH (10:21)
[2016-07-20] MEDS: BABY ASPIRIN PO SCH (10:21)
[2016-07-20] MEDS: K-DUR PO SCH (10:22)
[2016-07-20] MEDS: FERROUS SULFATE PO SCH (10:22)
[2016-07-20] MEDS: TENORMIN PO SCH (10:22)
[2016-07-20] MEDS: PROTONIX PO SCH (10:22)
[2016-07-20] MEDS: SENOKOT S PO SCH ×2 (10:23→22:09)
[2016-07-20] MEDS: THERMAZENE 50 GRAM TP SCH (10:23)
[2016-07-20] MEDS: D5W/0.45% NACL/KCL 20 MEQ 1,000 ML IV SCH (11:56)
--- NOTE | 2016-07-20 12:24 | Progress Note ---
Assessment and Plan - Patient Problems (1) Peripheral vascular disease of extremity Current Visit: Yes Status: Acute Plan to address problem: - s/p left AKA - vascular surgery managing - continue analgesia but change from [employer] to fentanyl basal 25mics/hr patch and prn morphine sulfate - wound care per WCT (2) Acute respiratory failure Current Visit: Yes Status: Acute Plan to address problem: - on room air but need to r/o hemothorax which will necessitate further intervention - thoracentesis on hold re: plavix but also clinical stability respiratory-centeno - will repeat CXR and if persistent effusion will revisit thoracentesis - repeat CXR with slightly reduced but persistent pleural fluid - will get US chest to see if enough fluid for thoracentesis (3) Anemia Current Visit: Yes Status: Acute Plan to address problem: - follow H&H - evaluating source - LDH unremarkable - Likely ABLA component - H&H holding & trended up last draw (4) Altered mental status Current Visit: Yes Status: Acute Plan to address problem: - resolved Subjective Date of service: 07/20/16 Principal diagnosis: Infected vascular graft; s/p cardiopulmonary arrest Interval history: seen and examined at bedside; 24hour events reviewed; nursing and respiratory care staff consulted; no adverse overnight events reported to me; no new issues respiratory-centeno Objective Vital Signs - 12hr 07/20/16 07/20/16 07/20/16 04:06 04:36 07:30 Temperature 98.7 F Pulse Rate Pulse Rate [ 94 H Apical] Respiratory 18 18 18 Rate Blood Pressure Blood Pressure 140/63 [Left Arm] O2 Sat by Pulse 100 Oximetry 07/20/16 07/20/16 10:21 10:22 Temperature Pulse Rate 94 H Pulse Rate [ Apical] Respiratory 16 Rate Blood Pressure 140/63 Blood Pressure [Left Arm] O2 Sat by Pulse Oximetry Constitutional: no acute distress, alert Eyes: non-icteric ENT: oropharynx moist Neck: supple, no lymphadenopathy Effort: normal Ascultation: Left: diminished breath sounds (base), Bilateral: clear Cardiovascular: regular rate and rhythm Gastrointestinal: normoactive bowel sounds, soft, non-tender, non-distended Integumentary: other (weak LLExt) Extremities: other (s/p left AKA) Neurologic: normal mental status, non-focal exam, pupils equal and round Psychiatric: mood appropriate, affect normal CBC and BMP: 07/19/16 05:00 07/17/16 05:00 ABG, PT/INR, D-dimer: ABG POC ABG pH 7.436 (7.35-7.45) 07/04/16 16:49 POC ABG pCO2 31.1 (35-45) L 07/04/16 16:49 POC ABG pO2 110 (80-105) H 07/04/16 16:49 POC ABG HCO3 20.9 07/04/16 16:49 POC ABG Total CO2 22 07/04/16 16:49 POC ABG O2 Sat 99 07/04/16 16:49 PT/INR, D-dimer PT 19.9 Sec. (12.2-14.9) H 06/26/16 22:57 INR 1.69 (0.87-1.13) H 06/26/16 22:57 Abnormal lab findings: Abnormal Labs 06/13/16 06/13/16 06/13/16 09:45 09:45 09:45 WBC RBC Hgb POC Hgb Hct POC Hct MCH 25 L MCHC RDW 15.8 H Plt Count Lymph % (Auto) [place] % (Auto) 8.1 H Lymph # [place] # Baso # Seg Neutrophils % Seg Neuts % (Manual) Lymphocytes % (Manual) Monocytes % (Manual) Nucleated RBC % Seg Neutrophils # Seg Neutrophils # Man Lymphocytes # (Manual) Monocytes # (Manual) PT INR APTT Fibrinogen 522 H Heparin Anti-Xa Level POC ABG pH POC ABG pCO2 POC ABG pO2 POC Potassium POC Chloride Sodium Potassium Chloride Carbon Dioxide POC BUN BUN Creatinine Glucose POC Glucose Calcium 10.3 H Magnesium AST Alkaline Phosphatase Lactate Dehydrogenase Total Creatine Kinase Total Protein Albumin Urine WBC (Auto) Crossmatch 06/13/16 06/13/16 06/13/16 09:45 20:14 20:15 WBC RBC Hgb POC Hgb Hct POC Hct MCH MCHC RDW Plt Count Lymph % (Auto) [place] % (Auto) Lymph # [place] # Baso # Seg Neutrophils % Seg Neuts % (Manual) Lymphocytes % (Manual) Monocytes % (Manual) Nucleated RBC % Seg Neutrophils # Seg Neutrophils # Man Lymphocytes # (Manual) Monocytes # (Manual) PT INR APTT 103.8 H* Fibrinogen Heparin Anti-Xa Level 0.72 H POC ABG pH POC ABG pCO2 POC ABG pO2 POC Potassium POC Chloride Sodium Potassium Chloride Carbon Dioxide POC BUN BUN Creatinine Glucose POC Glucose Calcium Magnesium AST Alkaline Phosphatase Lactate Dehydrogenase Total Creatine Kinase Total Protein Albumin Urine WBC (Auto) Crossmatch See Detail 06/14/16 06/14/16 06/14/16 07:44 10:18 19:09 WBC RBC Hgb POC Hgb Hct POC Hct MCH 26 L MCHC RDW 15.8 H Plt Count Lymph % (Auto) [place] % (Auto) 9.1 H Lymph # [place] # Baso # Seg Neutrophils % Seg Neuts % (Manual) Lymphocytes % (Manual) Monocytes % (Manual) Nucleated RBC % Seg Neutrophils # Seg Neutrophils # Man Lymphocytes # (Manual) Monocytes # (Manual) PT INR APTT Fibrinogen Heparin Anti-Xa Level 0.76 H POC ABG pH POC ABG pCO2 POC ABG pO2 POC Potassium POC Chloride Sodium Potassium Chloride Carbon Dioxide POC BUN BUN Creatinine Glucose POC Glucose 106 H Calcium Magnesium AST Alkaline Phosphatase Lactate Dehydrogenase Total Creatine Kinase Total Protein Albumin Urine WBC (Auto) Crossmatch 06/15/16 06/15/16 06/15/16 04:43 04:43 22:49 WBC RBC Hgb 9.2 L POC Hgb Hct 28.4 L POC Hct MCH MCHC RDW Plt Count Lymph % (Auto) [place] % (Auto) Lymph # [place] # Baso # Seg Neutrophils % Seg Neuts % (Manual) Lymphocytes % (Manual) Monocytes % (Manual) Nucleated RBC % Seg Neutrophils # Seg Neutrophils # Man Lymphocytes # (Manual) Monocytes # (Manual) PT INR APTT Fibrinogen Heparin Anti-Xa Level 0.85 H POC ABG pH POC ABG pCO2 POC ABG pO2 POC Potassium POC Chloride Sodium Potassium Chloride Carbon Dioxide POC BUN BUN Creatinine Glucose POC Glucose 134 H Calcium Magnesium AST Alkaline Phosphatase Lactate Dehydrogenase Total Creatine Kinase Total Protein Albumin Urine WBC (Auto) Crossmatch 06/16/16 06/16/16 06/16/16 08:55 08:55 14:21 WBC RBC Hgb POC Hgb 5.8 L Hct POC Hct 17 L MCH MCHC RDW Plt Count Lymph % (Auto) [place] % (Auto) Lymph # [place] # Baso # Seg Neutrophils % Seg Neuts % (Manual) Lymphocytes % (Manual) Monocytes % (Manual) Nucleated RBC % Seg Neutrophils # Seg Neutrophils # Man Lymphocytes # (Manual) Monocytes # (Manual) PT INR APTT 20.0 L Fibrinogen Heparin Anti-Xa Level POC ABG pH POC ABG pCO2 POC ABG pO2 POC Potassium 2.9 L POC Chloride Sodium Potassium Chloride Carbon Dioxide POC BUN 7 L BUN Creatinine Glucose POC Glucose 249 H Calcium Magnesium AST Alkaline Phosphatase Lactate Dehydrogenase Total Creatine Kinase Total Protein Albumin Urine WBC (Auto) Crossmatch See Detail 06/16/16 06/16/16 06/16/16 16:55 17:41 17:48 WBC RBC Hgb POC Hgb 8.8 L Hct POC Hct 26 L < 15 L MCH MCHC RDW Plt Count Lymph % (Auto) [place] % (Auto) Lymph # [place] # Baso # Seg Neutrophils % Seg Neuts % (Manual) Lymphocytes % (Manual) Monocytes % (Manual) Nucleated RBC % Seg Neutrophils # Seg Neutrophils # Man Lymphocytes # (Manual) Monocytes # (Manual) PT INR APTT Fibrinogen Heparin Anti-Xa Level POC ABG pH 7.031 L POC ABG pCO2 POC ABG pO2 475 H POC Potassium 3.2 L POC Chloride 112 H 114 H Sodium Potassium Chloride Carbon Dioxide POC BUN 7 L 7 L BUN Creatinine Glucose POC Glucose 203 H 291 H Calcium Magnesium AST Alkaline Phosphatase Lactate Dehydrogenase Total Creatine Kinase Total Protein Albumin Urine WBC (Auto) Crossmatch 06/16/16 06/16/16 06/16/16 18:07 19:09 20:10 WBC 15.8 H RBC Hgb POC Hgb 6.5 L Hct POC Hct 19 L MCH MCHC RDW Plt Count 38 L Lymph % (Auto) 5.9 L [place] % (Auto) 9.3 H Lymph # 0.9 L [place] # 1.5 H Baso # Seg Neutrophils % 84.6 H Seg Neuts % (Manual) Lymphocytes % (Manual) Monocytes % (Manual) Nucleated RBC % Seg Neutrophils # 13.3 H Seg Neutrophils # Man Lymphocytes # (Manual) Monocytes # (Manual) PT INR APTT Fibrinogen Heparin Anti-Xa Level POC ABG pH POC ABG pCO2 POC ABG pO2 POC Potassium POC Chloride 113 H Sodium Potassium Chloride Carbon Dioxide POC BUN 7 L BUN Creatinine Glucose POC Glucose 263 H 231 H Calcium Magnesium AST Alkaline Phosphatase Lactate Dehydrogenase Total Creatine Kinase Total Protein Albumin Urine WBC (Auto) Crossmatch 06/16/16 06/16/16 06/16/16 20:10 20:18 21:10 WBC RBC Hgb POC Hgb Hct POC Hct MCH MCHC RDW Plt Count Lymph % (Auto) [place] % (Auto) Lymph # [place] # Baso # Seg Neutrophils % Seg Neuts % (Manual) Lymphocytes % (Manual) Monocytes % (Manual) Nucleated RBC % Seg Neutrophils # Seg Neutrophils # Man Lymphocytes # (Manual) Monocytes # (Manual) PT INR APTT Fibrinogen Heparin Anti-Xa Level POC ABG pH 7.236 L 7.280 L POC ABG pCO2 POC ABG pO2 139 H 145 H POC Potassium POC Chloride Sodium Potassium 3.4 L Chloride 114.5 H Carbon Dioxide 17 L D POC BUN BUN Creatinine Glucose 188 H POC Glucose Calcium 6.1 L D Magnesium AST Alkaline Phosphatase Lactate Dehydrogenase Total Creatine Kinase Total Protein Albumin Urine WBC (Auto) Crossmatch 06/16/16 06/17/16 06/17/16 22:53 04:48 05:35 WBC RBC Hgb POC Hgb Hct POC Hct MCH MCHC RDW Plt Count Lymph % (Auto) [place] % (Auto) Lymph # [place] # Baso # Seg Neutrophils % Seg Neuts % (Manual) Lymphocytes % (Manual) Monocytes % (Manual) Nucleated RBC % Seg Neutrophils # Seg Neutrophils # Man Lymphocytes # (Manual) Monocytes # (Manual) PT INR APTT Fibrinogen Heparin Anti-Xa Level POC ABG pH POC ABG pCO2 33.9 L 22.2 L POC ABG pO2 152 H 154 H POC Potassium POC Chloride Sodium 150 H Potassium 3.4 L Chloride 114.2 H Carbon Dioxide 16 L POC BUN BUN Creatinine Glucose 221 H POC Glucose Calcium 7.6 L D Magnesium AST Alkaline Phosphatase Lactate Dehydrogenase Total Creatine Kinase Total Protein Albumin Urine WBC (Auto) Crossmatch 06/17/16 06/18/16 06/18/16 09:22 07:26 08:25 WBC 20.3 H RBC 3.41 L Hgb 9.9 L POC Hgb Hct 29.7 L POC Hct MCH MCHC RDW Plt Count Lymph % (Auto) [place] % (Auto) Lymph # [place] # Baso # Seg Neutrophils % Seg Neuts % (Manual) 81.0 H Lymphocytes % (Manual) 6.0 L Monocytes % (Manual) 12.0 H Nucleated RBC % Seg Neutrophils # Seg Neutrophils # Man 16.4 H Lymphocytes # (Manual) Monocytes # (Manual) 2.4 H PT INR APTT Fibrinogen Heparin Anti-Xa Level POC ABG pH POC ABG pCO2 POC ABG pO2 POC Potassium POC Chloride Sodium Potassium 3.1 L Chloride Carbon Dioxide POC BUN BUN Creatinine Glucose 136 H POC Glucose 141 H Calcium 7.5 L Magnesium AST Alkaline Phosphatase Lactate Dehydrogenase Total Creatine Kinase Total Protein Albumin Urine WBC (Auto) Crossmatch 06/18/16 06/18/16 06/18/16 08:25 11:09 19:40 WBC RBC Hgb 6.5 L D POC Hgb Hct 19.3 L* D POC Hct MCH MCHC RDW Plt Count 131 L Lymph % (Auto) [place] % (Auto) Lymph # [place] # Baso # Seg Neutrophils % Seg Neuts % (Manual) Lymphocytes % (Manual) Monocytes % (Manual) Nucleated RBC % Seg Neutrophils # Seg Neutrophils # Man Lymphocytes # (Manual) Monocytes # (Manual) PT INR APTT Fibrinogen Heparin Anti-Xa Level POC ABG pH 7.490 H POC ABG pCO2 POC ABG pO2 131 H POC Potassium POC Chloride Sodium Potassium Chloride Carbon Dioxide POC BUN BUN Creatinine Glucose POC Glucose 125 H Calcium Magnesium AST Alkaline Phosphatase Lactate Dehydrogenase Total Creatine Kinase Total Protein Albumin Urine WBC (Auto) Crossmatch 06/18/16 06/19/16 06/19/16 21:10 07:07 07:28 WBC 13.6 H RBC 2.17 L Hgb 6.5 L POC Hgb Hct 18.8 L* POC Hct MCH MCHC 35 H RDW Plt Count 131 L Lymph % (Auto) 10.1 L [place] % (Auto) 9.3 H Lymph # [place] # 1.3 H Baso # Seg Neutrophils % 79.7 H Seg Neuts % (Manual) Lymphocytes % (Manual) Monocytes % (Manual) Nucleated RBC % Seg Neutrophils # 10.8 H Seg Neutrophils # Man Lymphocytes # (Manual) Monocytes # (Manual) PT INR APTT Fibrinogen Heparin Anti-Xa Level 0.75 H POC ABG pH POC ABG pCO2 POC ABG pO2 POC Potassium POC Chloride Sodium Potassium 3.5 L Chloride Carbon Dioxide POC BUN BUN Creatinine Glucose 104 H POC Glucose Calcium 7.6 L Magnesium 1.4 L AST Alkaline Phosphatase Lactate Dehydrogenase Total Creatine Kinase Total Protein Albumin Urine WBC (Auto) Crossmatch 06/20/16 06/20/16 06/20/16 04:15 18:15 18:15 WBC 16.6 H RBC 1.19 L Hgb 9.2 L 3.5 L* D POC Hgb Hct 27.5 L D 11.0 L* D POC Hct MCH MCHC RDW Plt Count 138 L Lymph % (Auto) [place] % (Auto) Lymph # [place] # Baso # Seg Neutrophils % Seg Neuts % (Manual) Lymphocytes % (Manual) Monocytes % (Manual) Nucleated RBC % Seg Neutrophils # Seg Neutrophils # Man Lymphocytes # (Manual) Monocytes # (Manual) PT INR APTT Fibrinogen Heparin Anti-Xa Level POC ABG pH POC ABG pCO2 POC ABG pO2 POC Potassium POC Chloride Sodium 146 H Potassium Chloride Carbon Dioxide 14 L D POC BUN BUN Creatinine Glucose 31 L* POC Glucose Calcium 6.7 L Magnesium AST Alkaline Phosphatase Lactate Dehydrogenase Total Creatine Kinase Total Protein Albumin Urine WBC (Auto) Crossmatch 06/20/16 06/20/16 06/20/16 18:15 19:33 19:36 WBC RBC Hgb POC Hgb Hct POC Hct MCH MCHC RDW Plt Count Lymph % (Auto) [place] % (Auto) Lymph # [place] # Baso # Seg Neutrophils % Seg Neuts % (Manual) Lymphocytes % (Manual) Monocytes % (Manual) Nucleated RBC % Seg Neutrophils # Seg Neutrophils # Man Lymphocytes # (Manual) Monocytes # (Manual) PT INR APTT Fibrinogen Heparin Anti-Xa Level POC ABG pH POC ABG pCO2 26.3 L POC ABG pO2 394 H POC Potassium POC Chloride Sodium Potassium Chloride Carbon Dioxide POC BUN BUN Creatinine Glucose POC Glucose 212 H Calcium Magnesium AST Alkaline Phosphatase Lactate Dehydrogenase Total Creatine Kinase Total Protein Albumin Urine WBC (Auto) Crossmatch See Detail 06/20/16 06/20/16 06/21/16 22:01 23:00 00:35 WBC RBC Hgb POC Hgb Hct POC Hct MCH MCHC RDW Plt Count Lymph % (Auto) [place] % (Auto) Lymph # [place] # Baso # Seg Neutrophils % Seg Neuts % (Manual) Lymphocytes % (Manual) Monocytes % (Manual) Nucleated RBC % Seg Neutrophils # Seg Neutrophils # Man Lymphocytes # (Manual) Monocytes # (Manual) PT 21.3 H INR 1.85 H APTT 48.4 H Fibrinogen Heparin Anti-Xa Level POC ABG pH POC ABG pCO2 POC ABG pO2 POC Potassium POC Chloride Sodium Potassium Chloride Carbon Dioxide POC BUN BUN Creatinine Glucose POC Glucose 149 H 147 H Calcium Magnesium AST Alkaline Phosphatase Lactate Dehydrogenase Total Creatine Kinase Total Protein Albumin Urine WBC (Auto) Crossmatch 06/21/16 06/21/16 06/21/16 04:30 04:30 06:01 WBC 21.7 H RBC 3.58 L Hgb POC Hgb Hct POC Hct MCH MCHC 35 H RDW Plt Count 116 L Lymph % (Auto) [place] % (Auto) Lymph # [place] # Baso # Seg Neutrophils % Seg Neuts % (Manual) Lymphocytes % (Manual) 8.0 L Monocytes % (Manual) Nucleated RBC % 3.0 H Seg Neutrophils # Seg Neutrophils # Man 13.7 H Lymphocytes # (Manual) Monocytes # (Manual) 1.5 H PT INR APTT Fibrinogen Heparin Anti-Xa Level POC ABG pH 7.541 H POC ABG pCO2 21.1 L POC ABG pO2 108 H POC Potassium POC Chloride Sodium Potassium 3.0 L Chloride 110.3 H Carbon Dioxide 18 L POC BUN BUN 18 H Creatinine Glucose 141 H POC Glucose Calcium 6.4 L Magnesium AST Alkaline Phosphatase Lactate Dehydrogenase Total Creatine Kinase Total Protein Albumin Urine WBC (Auto) Crossmatch 06/21/16 06/21/16 06/21/16 07:00 10:02 17:51 WBC RBC Hgb 8.3 L POC Hgb Hct 24.7 L D POC Hct MCH MCHC RDW Plt Count Lymph % (Auto) [place] % (Auto) Lymph # [place] # Baso # Seg Neutrophils % Seg Neuts % (Manual) Lymphocytes % (Manual) Monocytes % (Manual) Nucleated RBC % Seg Neutrophils # Seg Neutrophils # Man Lymphocytes # (Manual) Monocytes # (Manual) PT INR APTT Fibrinogen Heparin Anti-Xa Level POC ABG pH POC ABG pCO2 POC ABG pO2 POC Potassium POC Chloride Sodium Potassium Chloride Carbon Dioxide POC BUN BUN Creatinine Glucose POC Glucose 132 H 106 H Calcium Magnesium AST Alkaline Phosphatase Lactate Dehydrogenase Total Creatine Kinase Total Protein Albumin Urine WBC (Auto) Crossmatch 06/22/16 06/22/16 06/22/16 05:00 05:00 06:40 WBC 20.6 H RBC 3.54 L Hgb POC Hgb Hct POC Hct MCH MCHC RDW Plt Count 129 L Lymph % (Auto) [place] % (Auto) Lymph # [place] # Baso # Seg Neutrophils % Seg Neuts % (Manual) 87.0 H Lymphocytes % (Manual) 4.0 L Monocytes % (Manual) Nucleated RBC % 4.0 H Seg Neutrophils # Seg Neutrophils # Man 17.9 H Lymphocytes # (Manual) 0.8 L Monocytes # (Manual) 1.2 H PT INR APTT Fibrinogen Heparin Anti-Xa Level POC ABG pH POC ABG pCO2 21.9 L POC ABG pO2 118 H POC Potassium POC Chloride Sodium Potassium Chloride 109.9 H Carbon Dioxide 15 L POC BUN BUN 26 H Creatinine 2.2 H D Glucose POC Glucose Calcium 6.3 L Magnesium AST Alkaline Phosphatase Lactate Dehydrogenase Total Creatine Kinase Total Protein Albumin Urine WBC (Auto) Crossmatch 06/22/16 06/22/16 06/22/16 09:15 09:15 23:17 WBC RBC Hgb 9.1 L POC Hgb Hct 26.9 L POC Hct MCH MCHC RDW Plt Count 116 L Lymph % (Auto) [place] % (Auto) Lymph # [place] # Baso # Seg Neutrophils % Seg Neuts % (Manual) Lymphocytes % (Manual) Monocytes % (Manual) Nucleated RBC % Seg Neutrophils # Seg Neutrophils # Man Lymphocytes # (Manual) Monocytes # (Manual) PT 15.8 H INR 1.27 H APTT Fibrinogen Heparin Anti-Xa Level POC ABG pH POC ABG pCO2 POC ABG pO2 POC Potassium POC Chloride Sodium Potassium Chloride Carbon Dioxide POC BUN BUN Creatinine Glucose POC Glucose 134 H Calcium Magnesium AST Alkaline Phosphatase Lactate Dehydrogenase Total Creatine Kinase Total Protein Albumin Urine WBC (Auto) Crossmatch 06/23/16 06/23/16 06/23/16 05:43 05:43 09:44 WBC 13.8 H RBC 2.70 L Hgb 8.1 L POC Hgb Hct 24.2 L POC Hct MCH MCHC RDW Plt Count 93 L Lymph % (Auto) 6.2 L [place] % (Auto) Lymph # 0.9 L [place] # Baso # Seg Neutrophils % 89.2 H Seg Neuts % (Manual) Lymphocytes % (Manual) Monocytes % (Manual) Nucleated RBC % Seg Neutrophils # 12.3 H Seg Neutrophils # Man Lymphocytes # (Manual) Monocytes # (Manual) PT INR APTT Fibrinogen Heparin Anti-Xa Level POC ABG pH 7.593 H POC ABG pCO2 26.8 L POC ABG pO2 141 H POC Potassium POC Chloride Sodium 146 H Potassium Chloride Carbon Dioxide POC BUN BUN 32 H Creatinine 2.6 H Glucose 142 H POC Glucose Calcium 7.0 L Magnesium AST Alkaline Phosphatase Lactate Dehydrogenase Total Creatine Kinase Total Protein Albumin Urine WBC (Auto) Crossmatch 06/23/16 06/23/16 06/23/16 11:23 17:42 23:32 WBC RBC Hgb POC Hgb Hct POC Hct MCH MCHC RDW Plt Count Lymph % (Auto) [place] % (Auto) Lymph # [place] # Baso # Seg Neutrophils % Seg Neuts % (Manual) Lymphocytes % (Manual) Monocytes % (Manual) Nucleated RBC % Seg Neutrophils # Seg Neutrophils # Man Lymphocytes # (Manual) Monocytes # (Manual) PT INR APTT Fibrinogen Heparin Anti-Xa Level POC ABG pH POC ABG pCO2 POC ABG pO2 POC Potassium POC Chloride Sodium Potassium Chloride Carbon Dioxide POC BUN BUN Creatinine Glucose POC Glucose 138 H 133 H 111 H Calcium Magnesium AST Alkaline Phosphatase Lactate Dehydrogenase Total Creatine Kinase Total Protein Albumin Urine WBC (Auto) Crossmatch 06/24/16 06/24/16 06/24/16 06:27 08:10 08:10 WBC 16.6 H RBC 2.91 L Hgb 8.9 L POC Hgb Hct 26.4 L POC Hct MCH MCHC RDW 15.6 H Plt Count 115 L Lymph % (Auto) 4.6 L [place] % (Auto) Lymph # 0.8 L [place] # 1.0 H Baso # Seg Neutrophils % 89.2 H Seg Neuts % (Manual) Lymphocytes % (Manual) Monocytes % (Manual) Nucleated RBC % Seg Neutrophils # 14.9 H Seg Neutrophils # Man Lymphocytes # (Manual) Monocytes # (Manual) PT INR APTT Fibrinogen Heparin Anti-Xa Level POC ABG pH POC ABG pCO2 POC ABG pO2 POC Potassium POC Chloride Sodium 146 H Potassium Chloride Carbon Dioxide POC BUN BUN 37 H Creatinine 2.9 H Glucose POC Glucose 109 H Calcium 7.5 L Magnesium AST Alkaline Phosphatase Lactate Dehydrogenase Total Creatine Kinase Total Protein Albumin Urine WBC (Auto) Crossmatch 06/24/16 06/24/16 06/24/16 12:05 17:57 22:13 WBC RBC Hgb POC Hgb Hct POC Hct MCH MCHC RDW Plt Count Lymph % (Auto) [place] % (Auto) Lymph # [place] # Baso # Seg Neutrophils % Seg Neuts % (Manual) Lymphocytes % (Manual) Monocytes % (Manual) Nucleated RBC % Seg Neutrophils # Seg Neutrophils # Man Lymphocytes # (Manual) Monocytes # (Manual) PT INR APTT Fibrinogen Heparin Anti-Xa Level POC ABG pH POC ABG pCO2 POC ABG pO2 POC Potassium POC Chloride Sodium Potassium Chloride Carbon Dioxide POC BUN BUN Creatinine Glucose POC Glucose 117 H 124 H 116 H Calcium Magnesium AST Alkaline Phosphatase Lactate Dehydrogenase Total Creatine Kinase Total Protein Albumin Urine WBC (Auto) Crossmatch 12/06/25/16 06/25/16 06:42 06:49 12:14 WBC RBC Hgb POC Hgb Hct POC Hct MCH MCHC RDW Plt Count Lymph % (Auto) [place] % (Auto) Lymph # [place] # Baso # Seg Neutrophils % Seg Neuts % (Manual) Lymphocytes % (Manual) Monocytes % (Manual) Nucleated RBC % Seg Neutrophils # Seg Neutrophils # Man Lymphocytes # (Manual) Monocytes # (Manual) PT INR APTT Fibrinogen Heparin Anti-Xa Level POC ABG pH POC ABG pCO2 POC ABG pO2 POC Potassium POC Chloride Sodium Potassium Chloride Carbon Dioxide POC BUN BUN 46 H Creatinine 3.6 H Glucose 133 H POC Glucose 137 H 136 H Calcium 7.4 L Magnesium AST Alkaline Phosphatase Lactate Dehydrogenase Total Creatine Kinase Total Protein Albumin Urine WBC (Auto) Crossmatch 06/25/16 06/25/16 06/26/16 16:07 21:32 05:55 WBC RBC Hgb POC Hgb Hct POC Hct MCH MCHC RDW Plt Count Lymph % (Auto) [place] % (Auto) Lymph # [place] # Baso # Seg Neutrophils % Seg Neuts % (Manual) Lymphocytes % (Manual) Monocytes % (Manual) Nucleated RBC % Seg Neutrophils # Seg Neutrophils # Man Lymphocytes # (Manual) Monocytes # (Manual) PT INR APTT Fibrinogen Heparin Anti-Xa Level POC ABG pH POC ABG pCO2 POC ABG pO2 POC Potassium POC Chloride Sodium Potassium Chloride Carbon Dioxide 20 L POC BUN BUN 55 H Creatinine 4.2 H Glucose 120 H POC Glucose 146 H 146 H Calcium 7.5 L Magnesium AST Alkaline Phosphatase Lactate Dehydrogenase Total Creatine Kinase Total Protein Albumin Urine WBC (Auto) Crossmatch 06/26/16 06/26/16 06/26/16 06:30 11:38 16:45 WBC RBC Hgb POC Hgb Hct POC Hct MCH MCHC RDW Plt Count Lymph % (Auto) [place] % (Auto) Lymph # [place] # Baso # Seg Neutrophils % Seg Neuts % (Manual) Lymphocytes % (Manual) Monocytes % (Manual) Nucleated RBC % Seg Neutrophils # Seg Neutrophils # Man Lymphocytes # (Manual) Monocytes # (Manual) PT INR APTT Fibrinogen Heparin Anti-Xa Level POC ABG pH POC ABG pCO2 POC ABG pO2 POC Potassium POC Chloride Sodium Potassium Chloride Carbon Dioxide POC BUN BUN Creatinine Glucose POC Glucose 128 H 143 H 121 H Calcium Magnesium AST Alkaline Phosphatase Lactate Dehydrogenase Total Creatine Kinase Total Protein Albumin Urine WBC (Auto) Crossmatch 06/26/16 06/26/16 06/27/16 22:57 22:57 00:47 WBC RBC Hgb 8.4 L POC Hgb Hct 25.1 L POC Hct MCH MCHC RDW Plt Count Lymph % (Auto) [place] % (Auto) Lymph # [place] # Baso # Seg Neutrophils % Seg Neuts % (Manual) Lymphocytes % (Manual) Monocytes % (Manual) Nucleated RBC % Seg Neutrophils # Seg Neutrophils # Man Lymphocytes # (Manual) Monocytes # (Manual) PT 19.9 H INR 1.69 H APTT Fibrinogen Heparin Anti-Xa Level POC ABG pH POC ABG pCO2 POC ABG pO2 POC Potassium POC Chloride Sodium Potassium Chloride Carbon Dioxide POC BUN BUN Creatinine Glucose POC Glucose 110 H Calcium Magnesium AST Alkaline Phosphatase Lactate Dehydrogenase Total Creatine Kinase Total Protein Albumin Urine WBC (Auto) Crossmatch 06/27/16 06/27/16 06/27/16 05:43 05:43 06:40 WBC RBC Hgb POC Hgb Hct POC Hct MCH MCHC RDW Plt Count Lymph % (Auto) [place] % (Auto) Lymph # [place] # Baso # Seg Neutrophils % Seg Neuts % (Manual) Lymphocytes % (Manual) Monocytes % (Manual) Nucleated RBC % Seg Neutrophils # Seg Neutrophils # Man Lymphocytes # (Manual) Monocytes # (Manual) PT INR APTT Fibrinogen Heparin Anti-Xa Level 2.00 H POC ABG pH POC ABG pCO2 POC ABG pO2 POC Potassium POC Chloride Sodium Potassium Chloride Carbon Dioxide 20 L POC BUN BUN 58 H Creatinine 4.8 H Glucose POC Glucose 109 H Calcium 8.1 L Magnesium AST Alkaline Phosphatase Lactate Dehydrogenase Total Creatine Kinase Total Protein Albumin Urine WBC (Auto) Crossmatch 06/27/16 06/27/16 06/27/16 08:15 16:46 17:47 WBC RBC Hgb POC Hgb Hct POC Hct MCH MCHC RDW Plt Count Lymph % (Auto) [place] % (Auto) Lymph # [place] # Baso # Seg Neutrophils % Seg Neuts % (Manual) Lymphocytes % (Manual) Monocytes % (Manual) Nucleated RBC % Seg Neutrophils # Seg Neutrophils # Man Lymphocytes # (Manual) Monocytes # (Manual) PT INR APTT Fibrinogen Heparin Anti-Xa Level > 2.00 H 1.87 H POC ABG pH POC ABG pCO2 POC ABG pO2 POC Potassium POC Chloride Sodium Potassium Chloride Carbon Dioxide POC BUN BUN Creatinine Glucose POC Glucose 231 H Calcium Magnesium AST Alkaline Phosphatase Lactate Dehydrogenase Total Creatine Kinase Total Protein Albumin Urine WBC (Auto) Crossmatch 06/27/16 06/27/16 06/28/16 21:23 23:54 06:27 WBC RBC Hgb POC Hgb Hct POC Hct MCH MCHC RDW Plt Count Lymph % (Auto) [place] % (Auto) Lymph # [place] # Baso # Seg Neutrophils % Seg Neuts % (Manual) Lymphocytes % (Manual) Monocytes % (Manual) Nucleated RBC % Seg Neutrophils # Seg Neutrophils # Man Lymphocytes # (Manual) Monocytes # (Manual) PT INR APTT Fibrinogen Heparin Anti-Xa Level 1.70 H POC ABG pH POC ABG pCO2 POC ABG pO2 POC Potassium POC Chloride Sodium Potassium Chloride Carbon Dioxide POC BUN BUN 62 H Creatinine 4.5 H Glucose 111 H POC Glucose 122 H Calcium 8.3 L Magnesium AST Alkaline Phosphatase Lactate Dehydrogenase Total Creatine Kinase Total Protein Albumin Urine WBC (Auto) Crossmatch 06/28/16 06/28/16 06/28/16 06:27 11:47 14:14 WBC RBC Hgb 7.7 L POC Hgb Hct 22.9 L POC Hct MCH MCHC RDW Plt Count Lymph % (Auto) [place] % (Auto) Lymph # [place] # Baso # Seg Neutrophils % Seg Neuts % (Manual) Lymphocytes % (Manual) Monocytes % (Manual) Nucleated RBC % Seg Neutrophils # Seg Neutrophils # Man Lymphocytes # (Manual) Monocytes # (Manual) PT INR APTT Fibrinogen Heparin Anti-Xa Level POC ABG pH 7.461 H POC ABG pCO2 31.9 L POC ABG pO2 73 L POC Potassium POC Chloride Sodium Potassium Chloride Carbon Dioxide POC BUN BUN Creatinine Glucose POC Glucose 155 H Calcium Magnesium AST Alkaline Phosphatase Lactate Dehydrogenase Total Creatine Kinase Total Protein Albumin Urine WBC (Auto) Crossmatch 06/28/16 06/28/16 06/28/16 16:27 20:47 22:59 WBC RBC Hgb POC Hgb Hct POC Hct MCH MCHC RDW Plt Count Lymph % (Auto) [place] % (Auto) Lymph # [place] # Baso # Seg Neutrophils % Seg Neuts % (Manual) Lymphocytes % (Manual) Monocytes % (Manual) Nucleated RBC % Seg Neutrophils # Seg Neutrophils # Man Lymphocytes # (Manual) Monocytes # (Manual) PT INR APTT Fibrinogen Heparin Anti-Xa Level 1.16 H POC ABG pH POC ABG pCO2 POC ABG pO2 POC Potassium POC Chloride Sodium Potassium Chloride Carbon Dioxide POC BUN BUN Creatinine Glucose POC Glucose 193 H 126 H Calcium Magnesium AST Alkaline Phosphatase Lactate Dehydrogenase Total Creatine Kinase Total Protein Albumin Urine WBC (Auto) Crossmatch 06/29/16 06/29/16 06/29/16 05:51 09:10 09:10 WBC RBC Hgb POC Hgb Hct POC Hct MCH MCHC RDW Plt Count Lymph % (Auto) [place] % (Auto) Lymph # [place] # Baso # Seg Neutrophils % Seg Neuts % (Manual) Lymphocytes % (Manual) Monocytes % (Manual) Nucleated RBC % Seg Neutrophils # Seg Neutrophils # Man Lymphocytes # (Manual) Monocytes # (Manual) PT INR APTT Fibrinogen Heparin Anti-Xa Level 0.92 H POC ABG pH POC ABG pCO2 POC ABG pO2 POC Potassium POC Chloride Sodium Potassium Chloride Carbon Dioxide POC BUN BUN 53 H Creatinine 3.7 H Glucose 139 H POC Glucose 121 H Calcium 8.2 L Magnesium AST Alkaline Phosphatase Lactate Dehydrogenase Total Creatine Kinase Total Protein Albumin Urine WBC (Auto) Crossmatch 06/29/16 06/30/16 06/30/16 21:22 05:09 08:07 WBC RBC Hgb 7.3 L POC Hgb Hct 21.9 L POC Hct MCH MCHC RDW Plt Count Lymph % (Auto) [place] % (Auto) Lymph # [place] # Baso # Seg Neutrophils % Seg Neuts % (Manual) Lymphocytes % (Manual) Monocytes % (Manual) Nucleated RBC % Seg Neutrophils # Seg Neutrophils # Man Lymphocytes # (Manual) Monocytes # (Manual) PT INR APTT Fibrinogen Heparin Anti-Xa Level POC ABG pH POC ABG pCO2 POC ABG pO2 POC Potassium POC Chloride Sodium Potassium Chloride Carbon Dioxide POC BUN BUN Creatinine Glucose POC Glucose 108 H 106 H Calcium Magnesium AST Alkaline Phosphatase Lactate Dehydrogenase Total Creatine Kinase Total Protein Albumin Urine WBC (Auto) Crossmatch 06/30/16 06/30/16 06/30/16 10:48 12:13 16:48 WBC RBC Hgb POC Hgb Hct POC Hct MCH MCHC RDW Plt Count Lymph % (Auto) [place] % (Auto) Lymph # [place] # Baso # Seg Neutrophils % Seg Neuts % (Manual) Lymphocytes % (Manual) Monocytes % (Manual) Nucleated RBC % Seg Neutrophils # Seg Neutrophils # Man Lymphocytes # (Manual) Monocytes # (Manual) PT INR APTT Fibrinogen Heparin Anti-Xa Level POC ABG pH POC ABG pCO2 POC ABG pO2 POC Potassium POC Chloride Sodium Potassium Chloride Carbon Dioxide POC BUN BUN 46 H Creatinine 3.0 H Glucose POC Glucose 153 H 152 H Calcium Magnesium AST Alkaline Phosphatase Lactate Dehydrogenase Total Creatine Kinase Total Protein Albumin Urine WBC (Auto) Crossmatch 06/30/16 07/01/16 07/01/16 21:47 05:47 07:44 WBC 19.8 H RBC 2.45 L Hgb 7.2 L POC Hgb Hct 22.2 L POC Hct MCH MCHC RDW Plt Count 481 H Lymph % (Auto) 5.5 L [place] % (Auto) Lymph # 1.1 L [place] # 1.4 H Baso # Seg Neutrophils % 86.8 H Seg Neuts % (Manual) Lymphocytes % (Manual) Monocytes % (Manual) Nucleated RBC % Seg Neutrophils # 17.1 H Seg Neutrophils # Man Lymphocytes # (Manual) Monocytes # (Manual) PT INR APTT Fibrinogen Heparin Anti-Xa Level POC ABG pH POC ABG pCO2 POC ABG pO2 POC Potassium POC Chloride Sodium Potassium Chloride Carbon Dioxide POC BUN BUN Creatinine Glucose POC Glucose 162 H 124 H Calcium Magnesium AST Alkaline Phosphatase Lactate Dehydrogenase Total Creatine Kinase Total Protein Albumin Urine WBC (Auto) Crossmatch 07/01/16 07/01/16 07/01/16 07:44 11:55 16:16 WBC RBC Hgb POC Hgb Hct POC Hct MCH MCHC RDW Plt Count Lymph % (Auto) [place] % (Auto) Lymph # [place] # Baso # Seg Neutrophils % Seg Neuts % (Manual) Lymphocytes % (Manual) Monocytes % (Manual) Nucleated RBC % Seg Neutrophils # Seg Neutrophils # Man Lymphocytes # (Manual) Monocytes # (Manual) PT INR APTT Fibrinogen Heparin Anti-Xa Level POC ABG pH POC ABG pCO2 POC ABG pO2 POC Potassium POC Chloride Sodium Potassium 3.1 L Chloride Carbon Dioxide POC BUN BUN 38 H Creatinine 2.2 H Glucose 114 H POC Glucose 114 H 143 H Calcium Magnesium AST Alkaline Phosphatase Lactate Dehydrogenase Total Creatine Kinase Total Protein Albumin Urine WBC (Auto) Crossmatch 07/01/16 07/02/16 07/02/16 21:42 05:40 06:46 WBC 18.1 H RBC 2.45 L Hgb 7.3 L POC Hgb Hct 21.8 L POC Hct MCH MCHC RDW Plt Count 490 H Lymph % (Auto) 6.1 L [place] % (Auto) Lymph # 1.1 L [place] # 1.1 H Baso # 0.2 H Seg Neutrophils % 86.0 H Seg Neuts % (Manual) Lymphocytes % (Manual) Monocytes % (Manual) Nucleated RBC % Seg Neutrophils # 15.6 H Seg Neutrophils # Man Lymphocytes # (Manual) Monocytes # (Manual) PT INR APTT Fibrinogen Heparin Anti-Xa Level POC ABG pH POC ABG pCO2 POC ABG pO2 POC Potassium POC Chloride Sodium Potassium Chloride Carbon Dioxide POC BUN BUN Creatinine Glucose POC Glucose 135 H 135 H Calcium Magnesium AST Alkaline Phosphatase Lactate Dehydrogenase Total Creatine Kinase Total Protein Albumin Urine WBC (Auto) Crossmatch 07/02/16 07/02/16 07/02/16 06:46 06:49 11:23 WBC RBC Hgb POC Hgb Hct POC Hct MCH MCHC RDW Plt Count Lymph % (Auto) [place] % (Auto) Lymph # [place] # Baso # Seg Neutrophils % Seg Neuts % (Manual) Lymphocytes % (Manual) Monocytes % (Manual) Nucleated RBC % Seg Neutrophils # Seg Neutrophils # Man Lymphocytes # (Manual) Monocytes # (Manual) PT INR APTT Fibrinogen Heparin Anti-Xa Level POC ABG pH POC ABG pCO2 POC ABG pO2 POC Potassium POC Chloride Sodium Potassium 2.8 L* Chloride Carbon Dioxide POC BUN BUN 30 H Creatinine 1.8 H Glucose 121 H POC Glucose 121 H Calcium 8.1 L Magnesium 1.3 L AST Alkaline Phosphatase Lactate Dehydrogenase Total Creatine Kinase Total Protein Albumin Urine WBC (Auto) Crossmatch 07/02/16 07/02/16 07/03/16 17:02 21:31 05:35 WBC RBC Hgb POC Hgb Hct POC Hct MCH MCHC RDW Plt Count Lymph % (Auto) [place] % (Auto) Lymph # [place] # Baso # Seg Neutrophils % Seg Neuts % (Manual) Lymphocytes % (Manual) Monocytes % (Manual) Nucleated RBC % Seg Neutrophils # Seg Neutrophils # Man Lymphocytes # (Manual) Monocytes # (Manual) PT INR APTT Fibrinogen Heparin Anti-Xa Level POC ABG pH POC ABG pCO2 POC ABG pO2 POC Potassium POC Chloride Sodium Potassium Chloride Carbon Dioxide POC BUN BUN Creatinine Glucose POC Glucose 121 H 159 H 149 H Calcium Magnesium AST Alkaline Phosphatase Lactate Dehydrogenase Total Creatine Kinase Total Protein Albumin Urine WBC (Auto) Crossmatch 07/03/16 07/03/16 07/03/16 06:45 06:45 06:45 WBC 16.8 H RBC 2.21 L Hgb 6.5 L POC Hgb Hct 19.4 L* POC Hct MCH MCHC RDW Plt Count 503 H Lymph % (Auto) 6.4 L [place] % (Auto) Lymph # 1.1 L [place] # 1.1 H Baso # Seg Neutrophils % 85.6 H Seg Neuts % (Manual) Lymphocytes % (Manual) Monocytes % (Manual) Nucleated RBC % Seg Neutrophils # 14.4 H Seg Neutrophils # Man Lymphocytes # (Manual) Monocytes # (Manual) PT INR APTT Fibrinogen Heparin Anti-Xa Level POC ABG pH POC ABG pCO2 POC ABG pO2 POC Potassium POC Chloride Sodium Potassium 2.9 L* Chloride Carbon Dioxide POC BUN BUN 21 H Creatinine 1.6 H Glucose 126 H POC Glucose Calcium 8.0 L Magnesium 1.6 L AST Alkaline Phosphatase Lactate Dehydrogenase Total Creatine Kinase Total Protein Albumin Urine WBC (Auto) Crossmatch 07/03/16 07/03/16 07/03/16 12:54 19:00 20:01 WBC RBC Hgb POC Hgb Hct POC Hct MCH MCHC RDW Plt Count Lymph % (Auto) [place] % (Auto) Lymph # [place] # Baso # Seg Neutrophils % Seg Neuts % (Manual) Lymphocytes % (Manual) Monocytes % (Manual) Nucleated RBC % Seg Neutrophils # Seg Neutrophils # Man Lymphocytes # (Manual) Monocytes # (Manual) PT INR APTT Fibrinogen Heparin Anti-Xa Level POC ABG pH 7.302 L POC ABG pCO2 49.8 H POC ABG pO2 422 H POC Potassium POC Chloride Sodium Potassium Chloride Carbon Dioxide POC BUN BUN Creatinine Glucose POC Glucose 129 H Calcium Magnesium AST Alkaline Phosphatase Lactate Dehydrogenase Total Creatine Kinase Total Protein Albumin Urine WBC (Auto) Crossmatch See Detail 07/03/16 07/04/16 07/04/16 23:09 04:30 04:30 WBC 19.6 H RBC 3.21 L Hgb 9.4 L POC Hgb Hct 28.2 L POC Hct MCH MCHC RDW Plt Count Lymph % (Auto) 6.5 L [place] % (Auto) Lymph # [place] # 1.2 H Baso # Seg Neutrophils % 86.4 H Seg Neuts % (Manual) Lymphocytes % (Manual) Monocytes % (Manual) Nucleated RBC % Seg Neutrophils # 16.9 H Seg Neutrophils # Man Lymphocytes # (Manual) Monocytes # (Manual) PT INR APTT Fibrinogen Heparin Anti-Xa Level POC ABG pH POC ABG pCO2 POC ABG pO2 POC Potassium POC Chloride Sodium Potassium 3.5 L D Chloride 111.2 H Carbon Dioxide 20 L POC BUN BUN 18 H Creatinine Glucose POC Glucose 111 H Calcium 7.0 L Magnesium AST Alkaline Phosphatase Lactate Dehydrogenase Total Creatine Kinase Total Protein Albumin Urine WBC (Auto) Crossmatch 07/04/16 07/04/16 07/04/16 05:44 12:50 14:33 WBC RBC Hgb POC Hgb Hct POC Hct MCH MCHC RDW Plt Count Lymph % (Auto) [place] % (Auto) Lymph # [place] # Baso # Seg Neutrophils % Seg Neuts % (Manual) Lymphocytes % (Manual) Monocytes % (Manual) Nucleated RBC % Seg Neutrophils # Seg Neutrophils # Man Lymphocytes # (Manual) Monocytes # (Manual) PT INR APTT Fibrinogen Heparin Anti-Xa Level POC ABG pH 7.465 H 7.468 H POC ABG pCO2 29.5 L 29.1 L 33.1 L POC ABG pO2 110 H 39 L POC Potassium POC Chloride Sodium Potassium Chloride Carbon Dioxide POC BUN BUN Creatinine Glucose POC Glucose Calcium Magnesium AST Alkaline Phosphatase Lactate Dehydrogenase Total Creatine Kinase Total Protein Albumin Urine WBC (Auto) Crossmatch 07/04/16 07/05/16 07/05/16 16:49 00:20 04:19 WBC 16.2 H RBC 3.44 L Hgb POC Hgb Hct POC Hct MCH MCHC RDW Plt Count Lymph % (Auto) 5.2 L [place] % (Auto) 7.5 H Lymph # 0.8 L [place] # 1.2 H Baso # Seg Neutrophils % 86.5 H Seg Neuts % (Manual) Lymphocytes % (Manual) Monocytes % (Manual) Nucleated RBC % Seg Neutrophils # 14.0 H Seg Neutrophils # Man Lymphocytes # (Manual) Monocytes # (Manual) PT INR APTT Fibrinogen Heparin Anti-Xa Level POC ABG pH POC ABG pCO2 31.1 L POC ABG pO2 110 H POC Potassium POC Chloride Sodium Potassium Chloride Carbon Dioxide POC BUN BUN Creatinine Glucose POC Glucose 168 H Calcium Magnesium AST Alkaline Phosphatase Lactate Dehydrogenase Total Creatine Kinase Total Protein Albumin Urine WBC (Auto) Crossmatch 07/05/16 07/05/16 07/05/16 04:19 06:01 09:54 WBC RBC Hgb POC Hgb Hct POC Hct MCH MCHC RDW Plt Count Lymph % (Auto) [place] % (Auto) Lymph # [place] # Baso # Seg Neutrophils % Seg Neuts % (Manual) Lymphocytes % (Manual) Monocytes % (Manual) Nucleated RBC % Seg Neutrophils # Seg Neutrophils # Man Lymphocytes # (Manual) Monocytes # (Manual) PT INR APTT Fibrinogen Heparin Anti-Xa Level POC ABG pH POC ABG pCO2 POC ABG pO2 POC Potassium POC Chloride Sodium 146 H Potassium 3.5 L Chloride 109.1 H Carbon Dioxide POC BUN BUN Creatinine Glucose 135 H POC Glucose 146 H 284 H Calcium 7.8 L Magnesium AST Alkaline Phosphatase Lactate Dehydrogenase Total Creatine Kinase Total Protein Albumin Urine WBC (Auto) Crossmatch 07/05/16 07/06/16 07/06/16 13:35 04:40 04:40 WBC 17.7 H RBC 3.32 L Hgb 9.8 L POC Hgb Hct 29.8 L POC Hct MCH MCHC RDW Plt Count Lymph % (Auto) [place] % (Auto) Lymph # [place] # Baso # Seg Neutrophils % Seg Neuts % (Manual) 85.0 H Lymphocytes % (Manual) 4.0 L Monocytes % (Manual) 10.0 H Nucleated RBC % Seg Neutrophils # Seg Neutrophils # Man 15.0 H Lymphocytes # (Manual) 0.7 L Monocytes # (Manual) 1.8 H PT INR APTT Fibrinogen Heparin Anti-Xa Level POC ABG pH POC ABG pCO2 POC ABG pO2 POC Potassium POC Chloride Sodium Potassium 3.5 L Chloride Carbon Dioxide 21 L POC BUN BUN Creatinine Glucose 108 H POC Glucose 130 H Calcium 7.8 L Magnesium AST Alkaline Phosphatase Lactate Dehydrogenase Total Creatine Kinase Total Protein Albumin Urine WBC (Auto) Crossmatch 07/06/16 07/06/16 07/06/16 07:46 11:49 15:31 WBC RBC Hgb POC Hgb Hct POC Hct MCH MCHC RDW Plt Count Lymph % (Auto) [place] % (Auto) Lymph # [place] # Baso # Seg Neutrophils % Seg Neuts % (Manual) Lymphocytes % (Manual) Monocytes % (Manual) Nucleated RBC % Seg Neutrophils # Seg Neutrophils # Man Lymphocytes # (Manual) Monocytes # (Manual) PT INR APTT Fibrinogen Heparin Anti-Xa Level POC ABG pH POC ABG pCO2 POC ABG pO2 POC Potassium POC Chloride Sodium Potassium Chloride Carbon Dioxide POC BUN BUN Creatinine Glucose POC Glucose 149 H 146 H 135 H Calcium Magnesium AST Alkaline Phosphatase Lactate Dehydrogenase Total Creatine Kinase Total Protein Albumin Urine WBC (Auto) Crossmatch 07/06/16 07/06/16 07/07/16 17:17 20:59 04:53 WBC 15.5 H RBC 3.55 L Hgb POC Hgb Hct POC Hct MCH MCHC RDW Plt Count Lymph % (Auto) 4.9 L [place] % (Auto) Lymph # 0.8 L [place] # 0.9 H Baso # Seg Neutrophils % 87.9 H Seg Neuts % (Manual) Lymphocytes % (Manual) Monocytes % (Manual) Nucleated RBC % Seg Neutrophils # 13.7 H Seg Neutrophils # Man Lymphocytes # (Manual) Monocytes # (Manual) PT INR APTT Fibrinogen Heparin Anti-Xa Level POC ABG pH POC ABG pCO2 POC ABG pO2 POC Potassium POC Chloride Sodium Potassium Chloride Carbon Dioxide POC BUN BUN Creatinine Glucose POC Glucose 140 H Calcium Magnesium AST Alkaline Phosphatase Lactate Dehydrogenase Total Creatine Kinase Total Protein Albumin Urine WBC (Auto) 67.0 H Crossmatch 07/07/16 07/07/16 07/07/16 04:53 06:13 07:15 WBC RBC Hgb POC Hgb Hct POC Hct MCH MCHC RDW Plt Count Lymph % (Auto) [place] % (Auto) Lymph # [place] # Baso # Seg Neutrophils % Seg Neuts % (Manual) Lymphocytes % (Manual) Monocytes % (Manual) Nucleated RBC % Seg Neutrophils # Seg Neutrophils # Man Lymphocytes # (Manual) Monocytes # (Manual) PT INR APTT Fibrinogen Heparin Anti-Xa Level POC ABG pH POC ABG pCO2 POC ABG pO2 POC Potassium POC Chloride Sodium Potassium 3.4 L Chloride Carbon Dioxide POC BUN BUN Creatinine Glucose 104 H POC Glucose 122 H 134 H Calcium 8.0 L Magnesium AST Alkaline Phosphatase Lactate Dehydrogenase Total Creatine Kinase Total Protein Albumin Urine WBC (Auto) Crossmatch 07/07/16 07/07/16 07/07/16 08:06 08:06 10:31 WBC RBC Hgb POC Hgb Hct POC Hct MCH MCHC RDW Plt Count Lymph % (Auto) [place] % (Auto) Lymph # [place] # Baso # Seg Neutrophils % Seg Neuts % (Manual) Lymphocytes % (Manual) Monocytes % (Manual) Nucleated RBC % Seg Neutrophils # Seg Neutrophils # Man Lymphocytes # (Manual) Monocytes # (Manual) PT INR APTT Fibrinogen Heparin Anti-Xa Level POC ABG pH POC ABG pCO2 POC ABG pO2 POC Potassium POC Chloride Sodium Potassium Chloride Carbon Dioxide POC BUN BUN Creatinine Glucose 111 H POC Glucose 145 H Calcium 7.9 L Magnesium AST 53 H Alkaline Phosphatase 164 H Lactate Dehydrogenase Total Creatine Kinase Total Protein 6.2 L Albumin 1.4 L Urine WBC (Auto) Crossmatch See Detail 07/07/16 07/07/16 07/07/16 12:08 13:57 16:44 WBC RBC Hgb 9.7 L POC Hgb Hct 30.1 L POC Hct MCH MCHC RDW Plt Count Lymph % (Auto) [place] % (Auto) Lymph # [place] # Baso # Seg Neutrophils % Seg Neuts % (Manual) Lymphocytes % (Manual) Monocytes % (Manual) Nucleated RBC % Seg Neutrophils # Seg Neutrophils # Man Lymphocytes # (Manual) Monocytes # (Manual) PT INR APTT Fibrinogen Heparin Anti-Xa Level POC ABG pH POC ABG pCO2 POC ABG pO2 POC Potassium POC Chloride Sodium Potassium Chloride Carbon Dioxide POC BUN BUN Creatinine Glucose POC Glucose 159 H 173 H Calcium Magnesium AST Alkaline Phosphatase Lactate Dehydrogenase Total Creatine Kinase Total Protein Albumin Urine WBC (Auto) Crossmatch 07/07/16 07/08/16 07/08/16 23:31 07:27 12:16 WBC RBC Hgb POC Hgb Hct POC Hct MCH MCHC RDW Plt Count Lymph % (Auto) [place] % (Auto) Lymph # [place] # Baso # Seg Neutrophils % Seg Neuts % (Manual) Lymphocytes % (Manual) Monocytes % (Manual) Nucleated RBC % Seg Neutrophils # Seg Neutrophils # Man Lymphocytes # (Manual) Monocytes # (Manual) PT INR APTT Fibrinogen Heparin Anti-Xa Level POC ABG pH POC ABG pCO2 POC ABG pO2 POC Potassium POC Chloride Sodium Potassium Chloride Carbon Dioxide POC BUN BUN Creatinine Glucose POC Glucose 163 H 149 H 150 H Calcium Magnesium AST Alkaline Phosphatase Lactate Dehydrogenase Total Creatine Kinase Total Protein Albumin Urine WBC (Auto) Crossmatch 07/08/16 07/08/16 07/08/16 12:50 16:46 21:45 WBC RBC Hgb POC Hgb Hct POC Hct MCH MCHC RDW Plt Count Lymph % (Auto) [place] % (Auto) Lymph # [place] # Baso # Seg Neutrophils % Seg Neuts % (Manual) Lymphocytes % (Manual) Monocytes % (Manual) Nucleated RBC % Seg Neutrophils # Seg Neutrophils # Man Lymphocytes # (Manual) Monocytes # (Manual) PT INR APTT Fibrinogen Heparin Anti-Xa Level POC ABG pH POC ABG pCO2 POC ABG pO2 POC Potassium POC Chloride Sodium Potassium Chloride Carbon Dioxide 21 L POC BUN BUN Creatinine Glucose 126 H POC Glucose 143 H 134 H Calcium 7.5 L Magnesium AST Alkaline Phosphatase Lactate Dehydrogenase Total Creatine Kinase Total Protein Albumin Urine WBC (Auto) Crossmatch 07/09/16 07/09/16 07/09/16 07:31 07:31 08:07 WBC RBC Hgb POC Hgb Hct POC Hct MCH MCHC RDW Plt Count Lymph % (Auto) [place] % (Auto) Lymph # [place] # Baso # Seg Neutrophils % Seg Neuts % (Manual) Lymphocytes % (Manual) Monocytes % (Manual) Nucleated RBC % Seg Neutrophils # Seg Neutrophils # Man Lymphocytes # (Manual) Monocytes # (Manual) PT INR APTT Fibrinogen Heparin Anti-Xa Level POC ABG pH POC ABG pCO2 POC ABG pO2 POC Potassium POC Chloride Sodium Potassium Chloride Carbon Dioxide POC BUN BUN Creatinine Glucose 117 H POC Glucose 132 H Calcium 7.5 L Magnesium AST Alkaline Phosphatase 136 H Lactate Dehydrogenase 285 H Total Creatine Kinase 297 H Total Protein 5.4 L Albumin 1.5 L Urine WBC (Auto) Crossmatch 07/09/16 07/09/16 07/09/16 09:55 11:10 16:26 WBC 13.4 H RBC 1.95 L Hgb 5.8 L* D POC Hgb Hct 17.7 L* D POC Hct MCH MCHC RDW 15.5 H Plt Count Lymph % (Auto) 9.4 L [place] % (Auto) 8.3 H Lymph # [place] # 1.1 H Baso # Seg Neutrophils % 81.2 H Seg Neuts % (Manual) Lymphocytes % (Manual) Monocytes % (Manual) Nucleated RBC % Seg Neutrophils # 10.9 H Seg Neutrophils # Man Lymphocytes # (Manual) Monocytes # (Manual) PT INR APTT Fibrinogen Heparin Anti-Xa Level POC ABG pH POC ABG pCO2 POC ABG pO2 POC Potassium POC Chloride Sodium Potassium Chloride Carbon Dioxide POC BUN BUN Creatinine Glucose POC Glucose 240 H 113 H Calcium Magnesium AST Alkaline Phosphatase Lactate Dehydrogenase Total Creatine Kinase Total Protein Albumin Urine WBC (Auto) Crossmatch 07/09/16 07/10/16 07/10/16 21:45 04:10 09:03 WBC 15.1 H RBC 3.00 L Hgb 8.8 L D POC Hgb Hct 26.2 L D POC Hct MCH MCHC RDW 15.4 H Plt Count Lymph % (Auto) 8.4 L [place] % (Auto) 8.4 H Lymph # [place] # 1.3 H Baso # Seg Neutrophils % 82.5 H Seg Neuts % (Manual) Lymphocytes % (Manual) Monocytes % (Manual) Nucleated RBC % Seg Neutrophils # 12.5 H Seg Neutrophils # Man Lymphocytes # (Manual) Monocytes # (Manual) PT INR APTT Fibrinogen Heparin Anti-Xa Level POC ABG pH POC ABG pCO2 POC ABG pO2 POC Potassium POC Chloride Sodium Potassium Chloride Carbon Dioxide POC BUN BUN Creatinine Glucose POC Glucose 113 H 122 H Calcium Magnesium AST Alkaline Phosphatase Lactate Dehydrogenase Total Creatine Kinase Total Protein Albumin Urine WBC (Auto) Crossmatch 07/10/16 07/10/16 07/10/16 11:38 15:36 21:45 WBC RBC Hgb POC Hgb Hct POC Hct MCH MCHC RDW Plt Count Lymph % (Auto) [place] % (Auto) Lymph # [place] # Baso # Seg Neutrophils % Seg Neuts % (Manual) Lymphocytes % (Manual) Monocytes % (Manual) Nucleated RBC % Seg Neutrophils # Seg Neutrophils # Man Lymphocytes # (Manual) Monocytes # (Manual) PT INR APTT Fibrinogen Heparin Anti-Xa Level POC ABG pH POC ABG pCO2 POC ABG pO2 POC Potassium POC Chloride Sodium Potassium Chloride Carbon Dioxide POC BUN BUN Creatinine Glucose POC Glucose 146 H 131 H 141 H Calcium Magnesium AST Alkaline Phosphatase Lactate Dehydrogenase Total Creatine Kinase Total Protein Albumin Urine WBC (Auto) Crossmatch 07/11/16 07/11/16 07/11/16 05:10 07:40 11:45 WBC RBC Hgb POC Hgb Hct POC Hct MCH MCHC RDW Plt Count Lymph % (Auto) [place] % (Auto) Lymph # [place] # Baso # Seg Neutrophils % Seg Neuts % (Manual) Lymphocytes % (Manual) Monocytes % (Manual) Nucleated RBC % Seg Neutrophils # Seg Neutrophils # Man Lymphocytes # (Manual) Monocytes # (Manual) PT INR APTT Fibrinogen Heparin Anti-Xa Level POC ABG pH POC ABG pCO2 POC ABG pO2 POC Potassium POC Chloride Sodium Potassium Chloride Carbon Dioxide POC BUN BUN Creatinine Glucose 107 H POC Glucose 114 H 116 H Calcium 7.7 L Magnesium AST 81 H Alkaline Phosphatase 153 H Lactate Dehydrogenase Total Creatine Kinase Total Protein 6.0 L Albumin 1.8 L Urine WBC (Auto) Crossmatch 07/11/16 07/11/16 07/12/16 16:22 19:45 08:39 WBC RBC Hgb POC Hgb Hct POC Hct MCH MCHC RDW Plt Count Lymph % (Auto) [place] % (Auto) Lymph # [place] # Baso # Seg Neutrophils % Seg Neuts % (Manual) Lymphocytes % (Manual) Monocytes % (Manual) Nucleated RBC % Seg Neutrophils # Seg Neutrophils # Man Lymphocytes # (Manual) Monocytes # (Manual) PT INR APTT Fibrinogen Heparin Anti-Xa Level POC ABG pH POC ABG pCO2 POC ABG pO2 POC Potassium POC Chloride Sodium Potassium Chloride Carbon Dioxide POC BUN BUN Creatinine Glucose POC Glucose 110 H 106 H 124 H Calcium Magnesium AST Alkaline Phosphatase Lactate Dehydrogenase Total Creatine Kinase Total Protein Albumin Urine WBC (Auto) Crossmatch 07/12/16 07/12/16 07/13/16 11:31 16:36 07:05 WBC 12.4 H RBC 2.93 L Hgb 8.5 L POC Hgb Hct 25.6 L POC Hct MCH MCHC RDW Plt Count Lymph % (Auto) 11.2 L [place] % (Auto) 7.5 H Lymph # [place] # 0.9 H Baso # Seg Neutrophils % 80.6 H Seg Neuts % (Manual) Lymphocytes % (Manual) Monocytes % (Manual) Nucleated RBC % Seg Neutrophils # 10.0 H Seg Neutrophils # Man Lymphocytes # (Manual) Monocytes # (Manual) PT INR APTT Fibrinogen Heparin Anti-Xa Level POC ABG pH POC ABG pCO2 POC ABG pO2 POC Potassium POC Chloride Sodium Potassium Chloride Carbon Dioxide POC BUN BUN Creatinine Glucose POC Glucose 128 H 119 H Calcium Magnesium AST Alkaline Phosphatase Lactate Dehydrogenase Total Creatine Kinase Total Protein Albumin Urine WBC (Auto) Crossmatch 07/13/16 07/13/16 07/13/16 07:30 11:41 13:45 WBC RBC Hgb POC Hgb Hct POC Hct MCH MCHC RDW Plt Count Lymph % (Auto) [place] % (Auto) Lymph # [place] # Baso # Seg Neutrophils % Seg Neuts % (Manual) Lymphocytes % (Manual) Monocytes % (Manual) Nucleated RBC % Seg Neutrophils # Seg Neutrophils # Man Lymphocytes # (Manual) Monocytes # (Manual) PT INR APTT Fibrinogen Heparin Anti-Xa Level POC ABG pH POC ABG pCO2 POC ABG pO2 POC Potassium POC Chloride Sodium Potassium Chloride Carbon Dioxide POC BUN BUN Creatinine Glucose POC Glucose 133 H 129 H Calcium Magnesium AST Alkaline Phosphatase Lactate Dehydrogenase Total Creatine Kinase Total Protein Albumin Urine WBC (Auto) Crossmatch See Detail 07/13/16 07/13/16 07/14/16 15:28 23:29 08:15 WBC RBC Hgb POC Hgb Hct POC Hct MCH MCHC RDW Plt Count Lymph % (Auto) [place] % (Auto) Lymph # [place] # Baso # Seg Neutrophils % Seg Neuts % (Manual) Lymphocytes % (Manual) Monocytes % (Manual) Nucleated RBC % Seg Neutrophils # Seg Neutrophils # Man Lymphocytes # (Manual) Monocytes # (Manual) PT INR APTT Fibrinogen Heparin Anti-Xa Level POC ABG pH POC ABG pCO2 POC ABG pO2 POC Potassium POC Chloride Sodium Potassium Chloride Carbon Dioxide POC BUN BUN Creatinine Glucose POC Glucose 119 H 113 H 130 H Calcium Magnesium AST Alkaline Phosphatase Lactate Dehydrogenase Total Creatine Kinase Total Protein Albumin Urine WBC (Auto) Crossmatch 07/14/16 07/14/16 07/14/16 08:30 12:12 17:00 WBC RBC Hgb POC Hgb Hct POC Hct MCH MCHC RDW Plt Count Lymph % (Auto) [place] % (Auto) Lymph # [place] # Baso # Seg Neutrophils % Seg Neuts % (Manual) Lymphocytes % (Manual) Monocytes % (Manual) Nucleated RBC % Seg Neutrophils # Seg Neutrophils # Man Lymphocytes # (Manual) Monocytes # (Manual) PT INR APTT Fibrinogen Heparin Anti-Xa Level POC ABG pH POC ABG pCO2 POC ABG pO2 POC Potassium POC Chloride Sodium 135 L Potassium Chloride Carbon Dioxide POC BUN BUN Creatinine Glucose 113 H POC Glucose 115 H 119 H Calcium 7.8 L Magnesium AST Alkaline Phosphatase Lactate Dehydrogenase Total Creatine Kinase Total Protein Albumin Urine WBC (Auto) Crossmatch 07/14/16 07/15/16 07/15/16 Unknown 04:15 04:15 WBC 13.9 H 15.3 H RBC Hgb POC Hgb Hct POC Hct MCH MCHC RDW Plt Count Lymph % (Auto) 9.9 L 9.3 L [place] % (Auto) Lymph # [place] # 0.9 H Baso # Seg Neutrophils % 83.8 H 83.9 H Seg Neuts % (Manual) Lymphocytes % (Manual) Monocytes % (Manual) Nucleated RBC % Seg Neutrophils # 11.7 H 12.9 H Seg Neutrophils # Man Lymphocytes # (Manual) Monocytes # (Manual) PT INR APTT Fibrinogen Heparin Anti-Xa Level POC ABG pH POC ABG pCO2 POC ABG pO2 POC Potassium POC Chloride Sodium 131 L Potassium Chloride 96.5 L Carbon Dioxide POC BUN BUN Creatinine 0.6 L Glucose 104 H POC Glucose Calcium 8.0 L Magnesium AST Alkaline Phosphatase Lactate Dehydrogenase Total Creatine Kinase Total Protein Albumin Urine WBC (Auto) Crossmatch 07/15/16 07/15/16 07/15/16 11:29 16:06 22:05 WBC RBC Hgb POC Hgb Hct POC Hct MCH MCHC RDW Plt Count Lymph % (Auto) [place] % (Auto) Lymph # [place] # Baso # Seg Neutrophils % Seg Neuts % (Manual) Lymphocytes % (Manual) Monocytes % (Manual) Nucleated RBC % Seg Neutrophils # Seg Neutrophils # Man Lymphocytes # (Manual) Monocytes # (Manual) PT INR APTT Fibrinogen Heparin Anti-Xa Level POC ABG pH POC ABG pCO2 POC ABG pO2 POC Potassium POC Chloride Sodium Potassium Chloride Carbon Dioxide POC BUN BUN Creatinine Glucose POC Glucose 114 H 165 H 127 H Calcium Magnesium AST Alkaline Phosphatase Lactate Dehydrogenase Total Creatine Kinase Total Protein Albumin Urine WBC (Auto) Crossmatch 07/16/16 07/16/16 07/16/16 07:36 07:36 07:39 WBC RBC 2.86 L Hgb 8.5 L POC Hgb Hct 25.0 L D POC Hct MCH MCHC RDW Plt Count Lymph % (Auto) [place] % (Auto) 8.5 H Lymph # [place] # 0.9 H Baso # Seg Neutrophils % 77.7 H Seg Neuts % (Manual) Lymphocytes % (Manual) Monocytes % (Manual) Nucleated RBC % Seg Neutrophils # 8.5 H Seg Neutrophils # Man Lymphocytes # (Manual) Monocytes # (Manual) PT INR APTT Fibrinogen Heparin Anti-Xa Level POC ABG pH POC ABG pCO2 POC ABG pO2 POC Potassium POC Chloride Sodium 136 L Potassium Chloride Carbon Dioxide POC BUN BUN Creatinine 0.5 L Glucose 133 H POC Glucose 137 H Calcium 8.0 L Magnesium AST Alkaline Phosphatase Lactate Dehydrogenase Total Creatine Kinase Total Protein Albumin Urine WBC (Auto) Crossmatch 07/16/16 07/16/16 07/17/16 11:43 22:10 05:00 WBC 11.6 H RBC 2.95 L Hgb 8.5 L POC Hgb Hct 25.7 L POC Hct MCH MCHC RDW Plt Count Lymph % (Auto) [place] % (Auto) 8.4 H Lymph # [place] # 1.0 H Baso # Seg Neutrophils % 76.2 H Seg Neuts % (Manual) Lymphocytes % (Manual) Monocytes % (Manual) Nucleated RBC % Seg Neutrophils # 8.9 H Seg Neutrophils # Man Lymphocytes # (Manual) Monocytes # (Manual) PT INR APTT Fibrinogen Heparin Anti-Xa Level POC ABG pH POC ABG pCO2 POC ABG pO2 POC Potassium POC Chloride Sodium Potassium Chloride Carbon Dioxide POC BUN BUN Creatinine Glucose POC Glucose 154 H 140 H Calcium Magnesium AST Alkaline Phosphatase Lactate Dehydrogenase Total Creatine Kinase Total Protein Albumin Urine WBC (Auto) Crossmatch 07/17/16 07/17/16 07/17/16 05:00 07:32 12:27 WBC RBC Hgb POC Hgb Hct POC Hct MCH MCHC RDW Plt Count Lymph % (Auto) [place] % (Auto) Lymph # [place] # Baso # Seg Neutrophils % Seg Neuts % (Manual) Lymphocytes % (Manual) Monocytes % (Manual) Nucleated RBC % Seg Neutrophils # Seg Neutrophils # Man Lymphocytes # (Manual) Monocytes # (Manual) PT INR APTT Fibrinogen Heparin Anti-Xa Level POC ABG pH POC ABG pCO2 POC ABG pO2 POC Potassium POC Chloride Sodium Potassium Chloride Carbon Dioxide POC BUN BUN Creatinine 0.6 L Glucose 115 H POC Glucose 135 H 140 H Calcium Magnesium 1.4 L AST Alkaline Phosphatase Lactate Dehydrogenase Total Creatine Kinase Total Protein Albumin Urine WBC (Auto) Crossmatch 07/17/16 07/18/16 07/18/16 16:23 05:00 07:31 WBC RBC 2.67 L Hgb 7.7 L POC Hgb Hct 23.2 L POC Hct MCH MCHC RDW Plt Count 447 H Lymph % (Auto) [place] % (Auto) 8.5 H Lymph # [place] # Baso # Seg Neutrophils % 73.1 H Seg Neuts % (Manual) Lymphocytes % (Manual) Monocytes % (Manual) Nucleated RBC % Seg Neutrophils # Seg Neutrophils # Man Lymphocytes # (Manual) Monocytes # (Manual) PT INR APTT Fibrinogen Heparin Anti-Xa Level POC ABG pH POC ABG pCO2 POC ABG pO2 POC Potassium POC Chloride Sodium Potassium Chloride Carbon Dioxide POC BUN BUN Creatinine Glucose POC Glucose 127 H 119 H Calcium Magnesium AST Alkaline Phosphatase Lactate Dehydrogenase Total Creatine Kinase Total Protein Albumin Urine WBC (Auto) Crossmatch 07/18/16 07/18/16 07/19/16 11:45 16:56 05:00 WBC RBC 2.74 L Hgb 7.9 L POC Hgb Hct 24.0 L POC Hct MCH MCHC RDW Plt Count 471 H Lymph % (Auto) [place] % (Auto) 9.3 H Lymph # [place] # Baso # Seg Neutrophils % Seg Neuts % (Manual) Lymphocytes % (Manual) Monocytes % (Manual) Nucleated RBC % Seg Neutrophils # Seg Neutrophils # Man Lymphocytes # (Manual) Monocytes # (Manual) PT INR APTT Fibrinogen Heparin Anti-Xa Level POC ABG pH POC ABG pCO2 POC ABG pO2 POC Potassium POC Chloride Sodium Potassium Chloride Carbon Dioxide POC BUN BUN Creatinine Glucose POC Glucose 139 H 116 H Calcium Magnesium AST Alkaline Phosphatase Lactate Dehydrogenase Total Creatine Kinase Total Protein Albumin Urine WBC (Auto) Crossmatch 07/19/16 07/19/16 07/19/16 08:08 12:17 16:09 WBC RBC Hgb POC Hgb Hct POC Hct MCH MCHC RDW Plt Count Lymph % (Auto) [place] % (Auto) Lymph # [place] # Baso # Seg Neutrophils % Seg Neuts % (Manual) Lymphocytes % (Manual) Monocytes % (Manual) Nucleated RBC % Seg Neutrophils # Seg Neutrophils # Man Lymphocytes # (Manual) Monocytes # (Manual) PT INR APTT Fibrinogen Heparin Anti-Xa Level POC ABG pH POC ABG pCO2 POC ABG pO2 POC Potassium POC Chloride Sodium Potassium Chloride Carbon Dioxide POC BUN BUN Creatinine Glucose POC Glucose 128 H 117 H 132 H Calcium Magnesium AST Alkaline Phosphatase Lactate Dehydrogenase Total Creatine Kinase Total Protein Albumin Urine WBC (Auto) Crossmatch 07/19/16 21:39 WBC RBC Hgb POC Hgb Hct POC Hct MCH MCHC RDW Plt Count Lymph % (Auto) [place] % (Auto) Lymph # [place] # Baso # Seg Neutrophils % Seg Neuts % (Manual) Lymphocytes % (Manual) Monocytes % (Manual) Nucleated RBC % Seg Neutrophils # Seg Neutrophils # Man Lymphocytes # (Manual) Monocytes # (Manual) PT INR APTT Fibrinogen Heparin Anti-Xa Level POC ABG pH POC ABG pCO2 POC ABG pO2 POC Potassium POC Chloride Sodium Potassium Chloride Carbon Dioxide POC BUN BUN Creatinine Glucose POC Glucose 115 H Calcium Magnesium AST Alkaline Phosphatase Lactate Dehydrogenase Total Creatine Kinase Total Protein Albumin Urine WBC (Auto) Crossmatch
--- NOTE | 2016-07-20 17:46 | Progress Note ---
Assessment and Plan Assessment and plan: 1. Diabetes - BS in low 100s; continue Accu-Cheks and SSI as needed; did not require any coverage 2. Hypertension - BP controlled only on atenolol 3. PVD - status post left AKA; managed by vascular surgery 4. Right groin wound infection - local wound care, antibiotics per ID recommendation 5. Anemia - on iron supplementation, HGb low, but stable 6. DVT prophylaxis - per vascular surgery BS and BP wnl with no intervention in the last few days; will sign off; please call if any questions or concerns; thank you for the consult History Interval history: doing well, pain controlled, no complaints Hospitalist Physical - Constitutional Vitals: Temp Pulse Resp BP Pulse Ox 98.7 F 94 H 20 140/63 100 07/20/16 07:30 07/20/16 10:22 07/20/16 15:48 07/20/16 10:22 07/20/16 07:30 General appearance: Present: no acute distress, obese - Neck Neck: Present: supple, normal ROM. Absent: masses or JVD - Respiratory Respiratory effort: normal Respiratory: bilateral: CTA, negative: rales, rhonchi, wheezing - Cardiovascular Rhythm: regular Heart Sounds: Present: S1 & S2. Absent: systolic murmur - Extremities Extremities: abnormal (L ) - Abdominal General gastrointestinal: soft, non-tender, non-distended, normal bowel sounds - Psychiatric Psychiatric: cooperative - Neurologic Neurologic: CNII-XII intact, no focal deficits Results - Labs CBC & Chem 7: 07/19/16 05:00 07/17/16 05:00 Labs: Laboratory Last Values WBC 8.5 K/mm3 (4.5-11.0) 07/19/16 05:00 RBC 2.74 M/mm3 (3.65-5.03) L 07/19/16 05:00 Hgb 7.9 gm/dl (10.1-14.3) L 07/19/16 05:00 POC Hgb 6.5 (12-17) L 06/16/16 18:07 Hct 24.0 % (30.3-42.9) L 07/19/16 05:00 POC Hct 19 (38-51) L 06/16/16 18:07 MCV 88 fl (79-97) 07/19/16 05:00 MCH 29 pg (28-32) 07/19/16 05:00 MCHC 33 % (30-34) 07/19/16 05:00 RDW 14.9 % (13.2-15.2) 07/19/16 05:00 Plt Count 471 K/mm3 (140-440) H 07/19/16 05:00 Lymph % (Auto) 21.8 % (13.4-35.0) 07/19/16 05:00 [place] % (Auto) 9.3 % (0.0-7.3) H 07/19/16 05:00 Eos % (Auto) 0.3 % (0.0-4.3) 07/19/16 05:00 Baso % (Auto) 0.4 % (0.0-1.8) 07/19/16 05:00 Lymph # 1.9 K/mm3 (1.2-5.4) 07/19/16 05:00 [place] # 0.8 K/mm3 (0.0-0.8) 07/19/16 05:00 Eos # 0.0 K/mm3 (0.0-0.4) 07/19/16 05:00 Baso # 0.0 K/mm3 (0.0-0.1) 07/19/16 05:00 Add Manual Diff TNR 07/09/16 07:31 Total Counted 100 07/06/16 04:40 Seg Neutrophils % 68.2 % (40.0-70.0) 07/19/16 05:00 Seg Neuts % (Manual) 85.0 % (40.0-70.0) H 07/06/16 04:40 Band Neutrophils % 0 % 07/06/16 04:40 Lymphocytes % (Manual) 4.0 % (13.4-35.0) L 07/06/16 04:40 Reactive Lymphs % (Man) 1.0 % 07/06/16 04:40 Monocytes % (Manual) 10.0 % (0.0-7.3) H 07/06/16 04:40 Eosinophils % (Manual) 0 % (0.0-4.3) 07/06/16 04:40 Basophils % (Manual) 0 % (0.0-1.8) 07/06/16 04:40 Metamyelocytes % 0 % 07/06/16 04:40 Myelocytes % 0 % 07/06/16 04:40 Promyelocytes % 0 % 07/06/16 04:40 Blast Cells % 0 % 07/06/16 04:40 Nucleated RBC % Not Reportable 07/06/16 04:40 Seg Neutrophils # 5.8 K/mm3 (1.8-7.7) 07/19/16 05:00 Seg Neutrophils # Man 15.0 K/mm3 (1.8-7.7) H 07/06/16 04:40 Band Neutrophils # 0.0 K/mm3 07/06/16 04:40 Lymphocytes # (Manual) 0.7 K/mm3 (1.2-5.4) L 07/06/16 04:40 Abs React Lymphs (Man) 0.2 K/mm3 07/06/16 04:40 Monocytes # (Manual) 1.8 K/mm3 (0.0-0.8) H 07/06/16 04:40 Eosinophils # (Manual) 0.0 K/mm3 (0.0-0.4) 07/06/16 04:40 Basophils # (Manual) 0.0 K/mm3 (0.0-0.1) 07/06/16 04:40 Metamyelocytes # 0.0 K/mm3 07/06/16 04:40 Myelocytes # 0.0 K/mm3 07/06/16 04:40 Promyelocytes # 0.0 K/mm3 07/06/16 04:40 Blast Cells # 0.0 K/mm3 07/06/16 04:40 WBC Morphology Not Reportable 07/06/16 04:40 Hypersegmented Neuts Not Reportable 07/06/16 04:40 Hyposegmented Neuts Not Reportable 07/06/16 04:40 Hypogranular Neuts Not Reportable 07/06/16 04:40 Smudge Cells Not Reportable 07/06/16 04:40 Toxic Granulation Not Reportable 07/06/16 04:40 Toxic Vacuolation Not Reportable 07/06/16 04:40 Dohle Bodies Not Reportable 07/06/16 04:40 Pelger-Huet Anomaly Not Reportable 07/06/16 04:40 Mary Rods Not Reportable 07/06/16 04:40 Platelet Estimate Appears normal 07/06/16 04:40 Clumped Platelets Not Reportable 07/06/16 04:40 Plt Clumps, EDTA Not Reportable 07/06/16 04:40 Large Platelets Not Reportable 07/06/16 04:40 Giant Platelets Not Reportable 07/06/16 04:40 Platelet Satelliting Not Reportable 07/06/16 04:40 Plt Morphology Comment Not Reportable 07/06/16 04:40 RBC Morphology Not Reportable 07/06/16 04:40 Dimorphic RBCs Not Reportable 07/06/16 04:40 Polychromasia Not Reportable 07/06/16 04:40 Hypochromasia Not Reportable 07/06/16 04:40 Poikilocytosis Not Reportable 07/06/16 04:40 Anisocytosis 1+ 07/06/16 04:40 Microcytosis Not Reportable 07/06/16 04:40 Macrocytosis Not Reportable 07/06/16 04:40 Spherocytes Not Reportable 07/06/16 04:40 Pappenheimer Bodies Not Reportable 07/06/16 04:40 Sickle Cells Not Reportable 07/06/16 04:40 Target Cells Not Reportable 07/06/16 04:40 Tear Drop Cells Not Reportable 07/06/16 04:40 Ovalocytes Not Reportable 07/06/16 04:40 Helmet Cells Not Reportable 07/06/16 04:40 [place] Bodies Not Reportable 07/06/16 04:40 [place] Rings Not Reportable 07/06/16 04:40 Padmini Cells Not Reportable 07/06/16 04:40 Bite Cells Not Reportable 07/06/16 04:40 Crenated Cell Not Reportable 07/06/16 04:40 Elliptocytes Not Reportable 07/06/16 04:40 Acanthocytes (Spur) Not Reportable 07/06/16 04:40 Rouleaux Not Reportable 07/06/16 04:40 Hemoglobin C Crystals Not Reportable 07/06/16 04:40 Schistocytes Not Reportable 07/06/16 04:40 Malaria parasites Not Reportable 07/06/16 04:40 Sean Bodies Not Reportable 07/06/16 04:40 Haptoglobin 97 mg/dL (43-212) 07/09/16 14:09 Hem Pathologist Commnt No 07/06/16 04:40 PT 19.9 Sec. (12.2-14.9) H 06/26/16 22:57 INR 1.69 (0.87-1.13) H 06/26/16 22:57 APTT 32.8 Sec. (24.2-36.6) 06/26/16 22:57 Fibrinogen 522 mg/dl (211-480) H 06/13/16 09:45 Heparin Anti-Xa Level 0.45 U.I./ml (0.3-0.7) 06/29/16 20:31 POC ABG pH 7.436 (7.35-7.45) 07/04/16 16:49 POC ABG pCO2 31.1 (35-45) L 07/04/16 16:49 POC ABG pO2 110 (80-105) H 07/04/16 16:49 POC ABG HCO3 20.9 07/04/16 16:49 POC ABG Total CO2 22 07/04/16 16:49 POC ABG O2 Sat 99 07/04/16 16:49 POC ABG Base Excess -3 07/04/16 16:49 POC Sodium 146 mmol/L (138-146) 06/16/16 18:07 POC Potassium 3.5 (3.5-4.9) 06/16/16 18:07 POC Chloride 113 (98-109) H 06/16/16 18:07 FiO2 30 % 07/04/16 16:49 Sodium 137 mmol/L (137-145) 07/17/16 05:00 Potassium 3.9 mmol/L (3.6-5.0) 07/17/16 05:00 Chloride 101.3 mmol/L (98-107) 07/17/16 05:00 Carbon Dioxide 25 mmol/L (22-30) 07/17/16 05:00 Anion Gap 15 mmol/L 07/17/16 05:00 POC BUN 7 mg/dl (8-26) L 06/16/16 18:07 BUN 7 mg/dL (7-17) 07/17/16 05:00 Creatinine 0.6 mg/dL (0.7-1.2) L 07/17/16 05:00 Estimated GFR > 60 ml/min 07/17/16 05:00 BUN/Creatinine Ratio 11.66 % 07/17/16 05:00 Glucose 115 mg/dL (65-100) H 07/17/16 05:00 POC Glucose 103 (70-105) 07/20/16 16:18 Calcium 8.5 mg/dL (8.4-10.2) 07/17/16 05:00 Magnesium 2.0 mg/dL (1.7-2.3) 07/19/16 05:00 Total Bilirubin 0.7 mg/dL (0.1-1.2) 07/11/16 05:10 AST 81 units/L (5-40) H 07/11/16 05:10 ALT 20 units/L (7-56) 07/11/16 05:10 Alkaline Phosphatase 153 units/L (35-129) H 07/11/16 05:10 Lactate Dehydrogenase 285 units/L (91-180) H 07/09/16 07:31 Total Creatine Kinase 297 units/L (30-135) H 07/09/16 07:31 Total Protein 6.0 g/dL (6.3-8.2) L 07/11/16 05:10 Albumin 1.8 g/dL (3.9-5) L 07/11/16 05:10 Albumin/Globulin Ratio 0.4 % 07/11/16 05:10 Urine Color Yellow (Yellow) 07/06/16 17:17 Urine Turbidity Slightly-cloudy (Clear) 07/06/16 17:17 Urine pH 6.0 (5.0-7.0) 07/06/16 17:17 Ur Specific [employer] 1.011 (1.003-1.030) 07/06/16 17:17 Urine Protein 30 mg/dl mg/dL (Negative) 07/06/16 17:17 Urine Glucose (UA) Neg mg/dL (Negative) 07/06/16 17:17 Urine Ketones Neg mg/dL (Negative) 07/06/16 17:17 Urine Blood Lg (Negative) 07/06/16 17:17 Urine Nitrite Neg (Negative) 07/06/16 17:17 Urine Bilirubin Neg (Negative) 07/06/16 17:17 Urine Urobilinogen < 2.0 mg/dL (<2.0) 07/06/16 17:17 Ur Leukocyte Esterase Lg (Negative) 07/06/16 17:17 Urine WBC (Auto) 67.0 /HPF (0.0-6.0) H 07/06/16 17:17 Urine RBC (Auto) > 182.0 /HPF (0.0-6.0) 07/06/16 17:17 Blood Type O POSITIVE 07/13/16 13:45 Antibody Screen Negative 07/13/16 13:45 Crossmatch See Detail 07/13/16 13:45
--- NOTE | 2016-07-20 18:57 | Progress Note ---
Assessment and Plan Current antibiotics: Zosyn 4.5 grams IV q8h 07/08 --> Previous antibiotics: Zosyn 2.25 g IV q8h 06/21-06/24 Cefazolin perioperatively ASSESSMENT: Cnade Ge is a 55-year-old female with severe peripheral vascular disease, type 2 DM with peripheral neuropathy and hypertension who was admitted to [facility] as an outpatient with left lower extremity pain at rest for her cutaneous intervention which was unsuccessful and subsequently underwent left femoral endarterectomy and left iliac stenting and left femoral-popliteal bypass on 06/16 , urgent thrombectomies on 06/20 and right femoral endarterectomy with patch angioplasty on 07/03. She also had 2 cardiac arrests on 06/20 requiring resuscitation and intubation. She developed evidence of a retroperitoneal hematoma and ureteral obstruction and underwent bilateral ureteral stenting on 06/27. She has had a low-grade fever and leukocytosis. Problem list: 1. 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 Severe peripheral vascular disease -Unsuccessful attempt at percutaneous left lower extremity revascularization 06/13 -Left femoral endarterectomy, left iliac stenting and left femoral-popliteal bypass on 06/16 -Left lower extremity thrombectomies on 06/20 -Right femoral endarterectomy with patch angioplasty on 07/03 -Status post left AKA 07/15 -with dehisced wound. 3. Leukocytosis -Likely reactive -Patient has multiple reasons for leukocytosis including retroperitoneal hematoma , GI bleeding and multiple surgeries -Status post left groin infection and infected Dacron patch -Resolving 4. Low-grade fever -Resolved 5. Right groin wound infection -Purulent material seen at surgery 07/15/16 6. Retroperitoneal hematoma -As seen on CT scan 06/27 -Resolving 7. Bilateral hydroureteronephrosis -Status post bilateral ureteral stenting 06/27 8. Status post cardiopulmonary arrests X 2 -06/20 -Mechanical ventilatory support until 07/05 9. REJI -Creatinine peaked at 4.8 on 06/27 -Likely secondary to ATN -Resolved 10. Anemia -Likely multifactorial secondary to bleeding and chronic disease 10. Type 2 DM PLAN: 1. Continue Zosyn 2. Continue local wound care 3. I discussed 07/17/2016 with vascular and indeed there is retained material on the left as well as the finding of pus in the right groin. She will thus require a long-term course of antibiotics postoperatively (at least 4 weeks) 4. Continued supportive measures and close observation Soham Iverson MD [facility] Office: [phone] Subjective Date of service: 07/20/16 Principal diagnosis: Infected vascular graft; s/p cardiopulmonary arrest Interval history: Sleeping but easily aroused. No complaints at present. ROS: No subjective fever or chills. No nausea, vomiting or diarrhea. No shortness of breath, cough or pleuritic chest pain Objective - Exam Narrative Exam: GENERAL: Well-developed, well-nourished appearing female who appears somewhat older than her stated age and appears chronically ill but is in no acute distress. HEAD: Normocephalic. No lesions seen. EYES: Pupils are equal reactive to light and accommodation. There is no scleral icterus. Optic fundi are not examined. EARS: External ears are normal. THROAT: Oropharynx is normal with no evidence of oral candidiasis or pharyngitis. Patient is edentulous. NECK: Supple. No enlargement of the thyroid gland. No significant cervical lymphadenopathy. No jugular venous distention at 60. LUNGS: Clear with no adventitious sounds. HEART: Regular rate with occasional extra beat heard. S1 and S2 are normal. There are no murmurs, gallops, clicks or rubs heard. ABDOMEN: Soft and nontender. Liver and spleen are not palpably enlarged or tender. No palpable masses. Bowel sounds are normoactive. EXTREMITIES: No peripheral lymphadenopathy or clubbing. Right lower extremity edema but no signs of infection. Status post left AKA with wound VAC in place with no signs of active infection. Left groin wound VAC in place. R Chest TLC in place SKIN: No rash : Normal external female. No Gillespie catheter. NEUROLOGIC: Bilateral lower extremity weakness. No other focal findings. - Constitutional Vitals: Vital Signs Temp Pulse Resp BP Pulse Ox 98.7 F 94 H 20 140/63 100 07/20/16 07:30 07/20/16 10:22 07/20/16 15:48 07/20/16 10:22 07/20/16 07:30 Temperature -Last 24 Hours Temperature 98.7 F Temperature 98.4 F Temperature 98.2 F - Labs CBC & Chem 7: 07/19/16 05:00 07/17/16 05:00 Labs: Abnormal lab results Microbiology 07/07/16 Unknown Thigh - Left Anaerobic Culture - no growth 07/09/16 04:26 Peripheral/Venous Blood Culture - NO GROWTH 07/09/16 04:26 Peripheral/Venous Blood Culture - NO GROWTH 07/07/16 Unknown Thigh - Left Surgical Culture - Preliminary Escherichia Coli Enterococcus Faecalis Enterococcus avium 07/07/16 Unknown Thigh - Left Surgical Biopsy Culture - Preliminary Escherichia Coli Enterococcus Faecalis Enterococcus avium 07/07/16 Unknown Thigh - Left Surgical Biopsy Culture - Preliminary Escherichia Coli Enterococcus Faecalis Coccus avium 07/07/16 Unknown Thigh - Left Surgical Biopsy Culture - Preliminary Escherichia Coli Enterococcus Faecalis Enterococcus avium 07/07/16 Unknown Thigh - Left Surgical Biopsy Culture - Preliminary Escherichia Coli
[2016-07-20] MEDS: NOVOLOG SUB-Q SCH (22:11)
[2016-07-21] MEDS: ZOSYN/NS 4.5GM/100ML 100 ML IV SCH ×3 (06:40→20:45)
[2016-07-21] MEDS: NOVOLOG SUB-Q SCH ×4 (07:35→22:00)
--- NOTE | 2016-07-21 08:48 | Progress Note ---
Assessment and Plan Current antibiotics: Zosyn 4.5 grams IV q8h 07/08 --> Previous antibiotics: Zosyn 2.25 g IV q8h 06/21-06/24 Cefazolin perioperatively ASSESSMENT: Cande Ge is a 55-year-old female with severe peripheral vascular disease, type 2 DM with peripheral neuropathy and hypertension who was admitted to [facility] as an outpatient with left lower extremity pain at rest for her cutaneous intervention which was unsuccessful and subsequently underwent left femoral endarterectomy and left iliac stenting and left femoral-popliteal bypass on 06/16 , urgent thrombectomies on 06/20 and right femoral endarterectomy with patch angioplasty on 07/03. She also had 2 cardiac arrests on 06/20 requiring resuscitation and intubation. She developed evidence of a retroperitoneal hematoma and ureteral obstruction and underwent bilateral ureteral stenting on 06/27. She has had a low-grade fever and leukocytosis. Problem list: 1. 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 Severe peripheral vascular disease -Unsuccessful attempt at percutaneous left lower extremity revascularization 06/13 -Left femoral endarterectomy, left iliac stenting and left femoral-popliteal bypass on 06/16 -Left lower extremity thrombectomies on 06/20 -Right femoral endarterectomy with patch angioplasty on 07/03 -Status post left AKA 07/15 -with dehisced wound. 3. Leukocytosis -Likely reactive -Patient has multiple reasons for leukocytosis including retroperitoneal hematoma , GI bleeding and multiple surgeries -Status post left groin infection and infected Dacron patch -Resolving 4. Low-grade fever -Resolved 5. Right groin wound infection -Purulent material seen at surgery 07/15/16 6. Retroperitoneal hematoma -As seen on CT scan 06/27 -Resolving 7. Bilateral hydroureteronephrosis -Status post bilateral ureteral stenting 06/27 8. Status post cardiopulmonary arrests X 2 -06/20 -Mechanical ventilatory support until 07/05 9. REJI -Creatinine peaked at 4.8 on 06/27 -Likely secondary to ATN -Resolved 10. Anemia -Likely multifactorial secondary to bleeding and chronic disease 10. Type 2 DM PLAN: 1. Continue Zosyn 2. Continue local wound care 3. Plan 4 weeks of post-op antibiotics. 4. Continued supportive measures and close observation Subjective Date of service: 07/21/16 Principal diagnosis: Infected vascular graft; s/p cardiopulmonary arrest Interval history: No specific complaints. No events over night. Objective - Exam Narrative Exam: Continues afebrile. GENERAL: Well-developed, well-nourished appearing female who appears somewhat older than her stated age and appears chronically ill but is in no acute distress. HEAD: Normocephalic. No lesions seen. EYES: Pupils are equal reactive to light and accommodation. There is no scleral icterus. Optic fundi are not examined. EARS: No evidence of external drainage THROAT: Oropharynx is normal with no evidence of oral candidiasis or pharyngitis. Patient is edentulous. NECK: Supple. No enlargement of the thyroid gland. No significant cervical lymphadenopathy. No jugular venous distention at 60. LUNGS: Clear with no adventitious sounds. HEART: Regular rate with occasional extra beat heard. S1 and S2 are normal. There are no murmurs, gallops, clicks or rubs heard. ABDOMEN: Soft and nontender. Liver and spleen are not palpably enlarged or tender. No palpable masses. Bowel sounds are normoactive. EXTREMITIES: No peripheral lymphadenopathy or clubbing. SKIN: Right chest Vas-Cath in place with no redness noted. Open left stump wound, left groin wound, right inguinal wounds with Wound-vac. No surrounding redness or foul odor. NEUROLOGIC: No gross lateralizing findings. - Constitutional Vitals: Vital Signs Temp Pulse Resp BP Pulse Ox 99.0 F 96 H 18 128/72 100 07/21/16 04:00 07/21/16 04:00 07/21/16 04:00 07/21/16 04:00 07/21/16 04:00 Temperature -Last 24 Hours Temperature 99.0 F Temperature 98.5 F Temperature 98.2 F Temperature 98.6 F - Labs CBC & Chem 7: 07/19/16 05:00 07/17/16 05:00 Labs: Abnormal lab results 07/20/16 Range/Units 21:41 POC Glucose 117 H (70-105)
[2016-07-21] MEDS: FERROUS SULFATE PO SCH (09:30)
[2016-07-21] MEDS: PLAVIX PO SCH (09:30)
[2016-07-21] MEDS: K-DUR PO SCH (09:30)
[2016-07-21] MEDS: BABY ASPIRIN PO SCH (09:30)
[2016-07-21] MEDS: PROTONIX PO SCH (09:30)
[2016-07-21] MEDS: TENORMIN PO SCH (09:31)
[2016-07-21] MEDS: SENOKOT S PO SCH ×2 (09:31→22:35)
[2016-07-21] MEDS: THERMAZENE 50 GRAM TP SCH (09:32)
[2016-07-21] MEDS: MORPHINE IV PRN ×2 (09:32→18:50)
[2016-07-21] MEDS: VITAMIN D2 PO SCH (10:45)
--- NOTE | 2016-07-21 10:57 | Ultrasound Report ---
ULTRASOUND CHEST History: Left pleural effusion. Findings: Targeted transabdominal ultrasound was performed on the left side of the chest to quantify a left pleural effusion. A small free flowing left pleural effusion is demonstrated with volume measuring 217 cc. No septation or debris. Impression: Small left pleural effusion measuring 217 cc.
--- NOTE | 2016-07-21 11:40 | Progress Note ---
Assessment and Plan The patient is progressing very well. Wounds are healing. Right foot is stable from the circulation standpoint. Plan: Continue IV antibiotics. Replace central line was a PICC line. Rehabilitation placement. Subjective Principal diagnosis: Infected vascular graft; s/p cardiopulmonary arrest Interval history: No complaints today. Patient is very alert. Objective - Exam Narrative Exam: Right foot warm. Easily dopplerable dorsalis pedis pulse. Left above-knee amputation site dressing and VAC is clean. The right groin incision VAC is stable - Constitutional Vitals: Vital Signs - 12hr 07/21/16 07/21/16 07/21/16 00:00 04:00 08:00 Temperature 98.5 F 99.0 F 98.8 F Pulse Rate Pulse Rate [ 98 H Apical] Pulse Rate [ 94 H 96 H Left Radial] Respiratory 18 18 16 Rate Blood Pressure Blood Pressure 136/69 128/72 109/57 [Left Arm] O2 Sat by Pulse 100 100 98 Oximetry 07/21/16 07/21/16 07/21/16 08:55 09:31 09:32 Temperature Pulse Rate 98 H Pulse Rate [ Apical] Pulse Rate [ Left Radial] Respiratory 18 Rate Blood Pressure 109/57 Blood Pressure [Left Arm] O2 Sat by Pulse 100 Oximetry - Labs CBC & Chem 7: 07/19/16 05:00 07/17/16 05:00 Labs: Abnormal lab results 07/20/16 Range/Units 21:41 POC Glucose 117 H (70-105)
--- NOTE | 2016-07-21 14:01 | Event Note ---
Date: 07/21/16 IPR F/U. Pt was last seen on 07/02, at which time she was approved for IPR admission following [id number] s/p fem-pop; retroperitoneal bleed leading to bilateral hydronephrosis, s/p urethral stents; right foot drop; anemia. IRU admission was held due to abnormal labs and pt later decompensated. Since last visit, pt was found to have an acute ischemic right common femoral artery occlusion requiring thromboendarterectomy (07/03/16). Also later developed extensive necrosis/infection at the left groin with thrombosed bypass graft and hematoma, which required debridement; unfortunately, LLE was unsalvageable. Pt is now s/p left AKA (07/15/2016). Wound vac is in place to left LE; will require 4 weeks of IV Zosyn. Pt is likely with some metabolic encephalopathy as pt is awake and oriented to her name/birthdate; however, does not recall events while in hospital or current date. Pt was re-evaluated by PT on 07/17; noted to require CGA-modA for bed mobility, no transfers or gait attempted. Pt is severely debilitated from prolonged hospitalization and is noted to have significant decline in functional mobility. Pt is thought to be able to tolerate 3 hours of therapy including PT/OT ([employer] evaluation for baseline cognition and memory), 5 days per week, and make reasonable functional improvement prior to returning home. Pt was previously noted to be independent with functional mobility and self cares prior to admission. Potential barriers/ complications that would currently prevent a safe return home or transfer to a lower level of care include impaired mobility, strength; falls risk; need for ongoing management of DM, anemia (pt has received a total of 23 U pRBCs, 1 FFP, 1 platelets), ABX; pain control; wound care; high risk for readmission due to medical complexity. Pt has good rehab potential, good overall medical prognosis , and has good family support with high likelihood of returning to community at discharge at wheelchair level independence. Pt meets all requirements for IRU admission, however, will require re-initiation for precertification prior to IPR admission, which will be completed on today. Will continue progress.
--- NOTE | 2016-07-21 17:23 | Progress Note ---
Assessment and Plan Patient presently on 2 litres O2.. O2 satuaration 100%.Patient awake and oriented.No complaint of chest pain or shortness of breath.patient - Patient Problems (1) Acute respiratory failure Current Visit: Yes Status: Acute Plan to address problem: Patient presently undergoing spontaneous breathing trials. Pressure support 10 cm H20 and FIO2 30%. 06/27/16 Respiratory status improved. No acute respiratory distress. On room air . O2 satuaration 100%. 06/30/16 Patient is on room air. No respiratory distress. O2 satuaration 97%. 07/04/16 Patient presently on pressure support 10 cm H20, FIO2 30% Patient tolerating good. Obtaining blood gases, If they are may extubate her. 07/05/16 Patient extubated. Presently on room air , tolerating good. O2 satuaration 100%. Incentive spirometry. xopenex aerosol treatments q 8 hours prn for shortness of breath and wheezing. 07/21/16 Patient presently resting on 2 litres O2. O2 satuaration 100%. (2) Cardiopulmonary arrest with successful resuscitation Current Visit: Yes Status: Acute Plan to address problem: Patient resuciated . Patient is on mechanical ventilation and vasopressors. 06/27/16 Improved. alert,awake following commands. !08/31/15 Patient alert,awake and following commands. 07/04/16 Patient alert, awake following commands. 07/06/16 Patient alert,awake and sitting up in chair.Following commands. O2 satuaration 100% on room air. 07/21/16 Patient alert, awake.Patient resting on 2 litres O2. O2 satuaration 100%. (3) Left lower lobe pneumonia Current Visit: Yes Status: Acute Plan to address problem: Patient running low grade temp. Patient has leukocytosis. Chest xray showing left lower lobe infiltrate, Obtaining blood cultures Tracheal aspirate for gram stain and C&S. Urin for U/A C&S. Starting on Zosyn. 06/27/16 Patient afebrile Repeating chest xray. 06/30/16 Repeat chest xray reported increased left pleural effusion. Obtaining ultrasound of chest. 07/04/16 Reported small left effusion. 07/05/16 Reported no acute findings. 07/21/16 Ultrasound of chest reported small pleural effusion. small left sided effusion. (4) Atherosclerosis of [place] arteries of extremity with intermittent claudication Current Visit: Yes Status: Acute Plan to address problem: Management as per vascular surgery. (5) Metabolic acidosis Current Visit: Yes Status: Acute Plan to address problem: Obtaining Lactate level. Given I/V Bicarb. 06/27/16 Improving. 06/30/16 Metabolic acidosis improved. (6) ATN (acute tubular necrosis) Current Visit: Yes Status: Acute Plan to address problem: Nephrology consulted. Management as per nephrology. Subjective Date of service: 07/21/16 Principal diagnosis: Infected vascular graft; s/p cardiopulmonary arrest Interval history: Patient presently on 2 litres O2.. O2 satuaration 100%.Patient awake and oriented.No complaint of chest pain or shortness of breath.patient Objective Vital Signs - 12hr 07/21/16 07/21/16 07/21/16 08:00 08:55 09:31 Temperature 98.8 F Pulse Rate 98 H Pulse Rate [ 98 H Apical] Respiratory 16 Rate Blood Pressure 109/57 Blood Pressure 109/57 [Left Arm] O2 Sat by Pulse 98 100 Oximetry 07/21/16 07/21/16 09:32 16:30 Temperature 98.6 F Pulse Rate Pulse Rate [ 91 H Apical] Respiratory 18 20 Rate Blood Pressure Blood Pressure 136/61 [Left Arm] O2 Sat by Pulse 100 Oximetry Constitutional: no acute distress, alert Eyes: non-icteric ENT: oropharynx moist Neck: supple, no lymphadenopathy Effort: normal Ascultation: Left: diminished breath sounds (base), Bilateral: rhonchi ( posterior bases) Cardiovascular: regular rate and rhythm Gastrointestinal: normoactive bowel sounds, soft, non-tender, non-distended Integumentary: other (weak LLExt) Extremities: other (s/p left AKA) Neurologic: normal mental status, non-focal exam, pupils equal and round Psychiatric: mood appropriate, affect normal CBC and BMP: 07/19/16 05:00 07/17/16 05:00 ABG, PT/INR, D-dimer: ABG POC ABG pH 7.436 (7.35-7.45) 07/04/16 16:49 POC ABG pCO2 31.1 (35-45) L 07/04/16 16:49 POC ABG pO2 110 (80-105) H 07/04/16 16:49 POC ABG HCO3 20.9 07/04/16 16:49 POC ABG Total CO2 22 07/04/16 16:49 POC ABG O2 Sat 99 07/04/16 16:49 PT/INR, D-dimer PT 19.9 Sec. (12.2-14.9) H 06/26/16 22:57 INR 1.69 (0.87-1.13) H 06/26/16 22:57 Abnormal lab findings: Abnormal Labs 06/13/16 06/13/16 06/13/16 09:45 09:45 09:45 WBC RBC Hgb POC Hgb Hct POC Hct MCH 25 L MCHC RDW 15.8 H Plt Count Lymph % (Auto) [place] % (Auto) 8.1 H Lymph # [place] # Baso # Seg Neutrophils % Seg Neuts % (Manual) Lymphocytes % (Manual) Monocytes % (Manual) Nucleated RBC % Seg Neutrophils # Seg Neutrophils # Man Lymphocytes # (Manual) Monocytes # (Manual) PT INR APTT Fibrinogen 522 H Heparin Anti-Xa Level POC ABG pH POC ABG pCO2 POC ABG pO2 POC Potassium POC Chloride Sodium Potassium Chloride Carbon Dioxide POC BUN BUN Creatinine Glucose POC Glucose Calcium 10.3 H Magnesium AST Alkaline Phosphatase Lactate Dehydrogenase Total Creatine Kinase Total Protein Albumin Urine WBC (Auto) Crossmatch 06/13/16 06/13/16 06/13/16 09:45 20:14 20:15 WBC RBC Hgb POC Hgb Hct POC Hct MCH MCHC RDW Plt Count Lymph % (Auto) [place] % (Auto) Lymph # [place] # Baso # Seg Neutrophils % Seg Neuts % (Manual) Lymphocytes % (Manual) Monocytes % (Manual) Nucleated RBC % Seg Neutrophils # Seg Neutrophils # Man Lymphocytes # (Manual) Monocytes # (Manual) PT INR APTT 103.8 H* Fibrinogen Heparin Anti-Xa Level 0.72 H POC ABG pH POC ABG pCO2 POC ABG pO2 POC Potassium POC Chloride Sodium Potassium Chloride Carbon Dioxide POC BUN BUN Creatinine Glucose POC Glucose Calcium Magnesium AST Alkaline Phosphatase Lactate Dehydrogenase Total Creatine Kinase Total Protein Albumin Urine WBC (Auto) Crossmatch See Detail 06/14/16 06/14/16 06/14/16 07:44 10:18 19:09 WBC RBC Hgb POC Hgb Hct POC Hct MCH 26 L MCHC RDW 15.8 H Plt Count Lymph % (Auto) [place] % (Auto) 9.1 H Lymph # [place] # Baso # Seg Neutrophils % Seg Neuts % (Manual) Lymphocytes % (Manual) Monocytes % (Manual) Nucleated RBC % Seg Neutrophils # Seg Neutrophils # Man Lymphocytes # (Manual) Monocytes # (Manual) PT INR APTT Fibrinogen Heparin Anti-Xa Level 0.76 H POC ABG pH POC ABG pCO2 POC ABG pO2 POC Potassium POC Chloride Sodium Potassium Chloride Carbon Dioxide POC BUN BUN Creatinine Glucose POC Glucose 106 H Calcium Magnesium AST Alkaline Phosphatase Lactate Dehydrogenase Total Creatine Kinase Total Protein Albumin Urine WBC (Auto) Crossmatch 06/15/16 06/15/16 06/15/16 04:43 04:43 22:49 WBC RBC Hgb 9.2 L POC Hgb Hct 28.4 L POC Hct MCH MCHC RDW Plt Count Lymph % (Auto) [place] % (Auto) Lymph # [place] # Baso # Seg Neutrophils % Seg Neuts % (Manual) Lymphocytes % (Manual) Monocytes % (Manual) Nucleated RBC % Seg Neutrophils # Seg Neutrophils # Man Lymphocytes # (Manual) Monocytes # (Manual) PT INR APTT Fibrinogen Heparin Anti-Xa Level 0.85 H POC ABG pH POC ABG pCO2 POC ABG pO2 POC Potassium POC Chloride Sodium Potassium Chloride Carbon Dioxide POC BUN BUN Creatinine Glucose POC Glucose 134 H Calcium Magnesium AST Alkaline Phosphatase Lactate Dehydrogenase Total Creatine Kinase Total Protein Albumin Urine WBC (Auto) Crossmatch 06/16/16 06/16/16 06/16/16 08:55 08:55 14:21 WBC RBC Hgb POC Hgb 5.8 L Hct POC Hct 17 L MCH MCHC RDW Plt Count Lymph % (Auto) [place] % (Auto) Lymph # [place] # Baso # Seg Neutrophils % Seg Neuts % (Manual) Lymphocytes % (Manual) Monocytes % (Manual) Nucleated RBC % Seg Neutrophils # Seg Neutrophils # Man Lymphocytes # (Manual) Monocytes # (Manual) PT INR APTT 20.0 L Fibrinogen Heparin Anti-Xa Level POC ABG pH POC ABG pCO2 POC ABG pO2 POC Potassium 2.9 L POC Chloride Sodium Potassium Chloride Carbon Dioxide POC BUN 7 L BUN Creatinine Glucose POC Glucose 249 H Calcium Magnesium AST Alkaline Phosphatase Lactate Dehydrogenase Total Creatine Kinase Total Protein Albumin Urine WBC (Auto) Crossmatch See Detail 06/16/16 06/16/16 06/16/16 16:55 17:41 17:48 WBC RBC Hgb POC Hgb 8.8 L Hct POC Hct 26 L < 15 L MCH MCHC RDW Plt Count Lymph % (Auto) [place] % (Auto) Lymph # [place] # Baso # Seg Neutrophils % Seg Neuts % (Manual) Lymphocytes % (Manual) Monocytes % (Manual) Nucleated RBC % Seg Neutrophils # Seg Neutrophils # Man Lymphocytes # (Manual) Monocytes # (Manual) PT INR APTT Fibrinogen Heparin Anti-Xa Level POC ABG pH 7.031 L POC ABG pCO2 POC ABG pO2 475 H POC Potassium 3.2 L POC Chloride 112 H 114 H Sodium Potassium Chloride Carbon Dioxide POC BUN 7 L 7 L BUN Creatinine Glucose POC Glucose 203 H 291 H Calcium Magnesium AST Alkaline Phosphatase Lactate Dehydrogenase Total Creatine Kinase Total Protein Albumin Urine WBC (Auto) Crossmatch 06/16/16 06/16/16 06/16/16 18:07 19:09 20:10 WBC 15.8 H RBC Hgb POC Hgb 6.5 L Hct POC Hct 19 L MCH MCHC RDW Plt Count 38 L Lymph % (Auto) 5.9 L [place] % (Auto) 9.3 H Lymph # 0.9 L [place] # 1.5 H Baso # Seg Neutrophils % 84.6 H Seg Neuts % (Manual) Lymphocytes % (Manual) Monocytes % (Manual) Nucleated RBC % Seg Neutrophils # 13.3 H Seg Neutrophils # Man Lymphocytes # (Manual) Monocytes # (Manual) PT INR APTT Fibrinogen Heparin Anti-Xa Level POC ABG pH POC ABG pCO2 POC ABG pO2 POC Potassium POC Chloride 113 H Sodium Potassium Chloride Carbon Dioxide POC BUN 7 L BUN Creatinine Glucose POC Glucose 263 H 231 H Calcium Magnesium AST Alkaline Phosphatase Lactate Dehydrogenase Total Creatine Kinase Total Protein Albumin Urine WBC (Auto) Crossmatch 06/16/16 06/16/16 06/16/16 20:10 20:18 21:10 WBC RBC Hgb POC Hgb Hct POC Hct MCH MCHC RDW Plt Count Lymph % (Auto) [place] % (Auto) Lymph # [place] # Baso # Seg Neutrophils % Seg Neuts % (Manual) Lymphocytes % (Manual) Monocytes % (Manual) Nucleated RBC % Seg Neutrophils # Seg Neutrophils # Man Lymphocytes # (Manual) Monocytes # (Manual) PT INR APTT Fibrinogen Heparin Anti-Xa Level POC ABG pH 7.236 L 7.280 L POC ABG pCO2 POC ABG pO2 139 H 145 H POC Potassium POC Chloride Sodium Potassium 3.4 L Chloride 114.5 H Carbon Dioxide 17 L D POC BUN BUN Creatinine Glucose 188 H POC Glucose Calcium 6.1 L D Magnesium AST Alkaline Phosphatase Lactate Dehydrogenase Total Creatine Kinase Total Protein Albumin Urine WBC (Auto) Crossmatch 06/16/16 06/17/16 06/17/16 22:53 04:48 05:35 WBC RBC Hgb POC Hgb Hct POC Hct MCH MCHC RDW Plt Count Lymph % (Auto) [place] % (Auto) Lymph # [place] # Baso # Seg Neutrophils % Seg Neuts % (Manual) Lymphocytes % (Manual) Monocytes % (Manual) Nucleated RBC % Seg Neutrophils # Seg Neutrophils # Man Lymphocytes # (Manual) Monocytes # (Manual) PT INR APTT Fibrinogen Heparin Anti-Xa Level POC ABG pH POC ABG pCO2 33.9 L 22.2 L POC ABG pO2 152 H 154 H POC Potassium POC Chloride Sodium 150 H Potassium 3.4 L Chloride 114.2 H Carbon Dioxide 16 L POC BUN BUN Creatinine Glucose 221 H POC Glucose Calcium 7.6 L D Magnesium AST Alkaline Phosphatase Lactate Dehydrogenase Total Creatine Kinase Total Protein Albumin Urine WBC (Auto) Crossmatch 06/17/16 06/18/16 06/18/16 09:22 07:26 08:25 WBC 20.3 H RBC 3.41 L Hgb 9.9 L POC Hgb Hct 29.7 L POC Hct MCH MCHC RDW Plt Count Lymph % (Auto) [place] % (Auto) Lymph # [place] # Baso # Seg Neutrophils % Seg Neuts % (Manual) 81.0 H Lymphocytes % (Manual) 6.0 L Monocytes % (Manual) 12.0 H Nucleated RBC % Seg Neutrophils # Seg Neutrophils # Man 16.4 H Lymphocytes # (Manual) Monocytes # (Manual) 2.4 H PT INR APTT Fibrinogen Heparin Anti-Xa Level POC ABG pH POC ABG pCO2 POC ABG pO2 POC Potassium POC Chloride Sodium Potassium 3.1 L Chloride Carbon Dioxide POC BUN BUN Creatinine Glucose 136 H POC Glucose 141 H Calcium 7.5 L Magnesium AST Alkaline Phosphatase Lactate Dehydrogenase Total Creatine Kinase Total Protein Albumin Urine WBC (Auto) Crossmatch 06/18/16 06/18/16 06/18/16 08:25 11:09 19:40 WBC RBC Hgb 6.5 L D POC Hgb Hct 19.3 L* D POC Hct MCH MCHC RDW Plt Count 131 L Lymph % (Auto) [place] % (Auto) Lymph # [place] # Baso # Seg Neutrophils % Seg Neuts % (Manual) Lymphocytes % (Manual) Monocytes % (Manual) Nucleated RBC % Seg Neutrophils # Seg Neutrophils # Man Lymphocytes # (Manual) Monocytes # (Manual) PT INR APTT Fibrinogen Heparin Anti-Xa Level POC ABG pH 7.490 H POC ABG pCO2 POC ABG pO2 131 H POC Potassium POC Chloride Sodium Potassium Chloride Carbon Dioxide POC BUN BUN Creatinine Glucose POC Glucose 125 H Calcium Magnesium AST Alkaline Phosphatase Lactate Dehydrogenase Total Creatine Kinase Total Protein Albumin Urine WBC (Auto) Crossmatch 06/18/16 06/19/16 06/19/16 21:10 07:07 07:28 WBC 13.6 H RBC 2.17 L Hgb 6.5 L POC Hgb Hct 18.8 L* POC Hct MCH MCHC 35 H RDW Plt Count 131 L Lymph % (Auto) 10.1 L [place] % (Auto) 9.3 H Lymph # [place] # 1.3 H Baso # Seg Neutrophils % 79.7 H Seg Neuts % (Manual) Lymphocytes % (Manual) Monocytes % (Manual) Nucleated RBC % Seg Neutrophils # 10.8 H Seg Neutrophils # Man Lymphocytes # (Manual) Monocytes # (Manual) PT INR APTT Fibrinogen Heparin Anti-Xa Level 0.75 H POC ABG pH POC ABG pCO2 POC ABG pO2 POC Potassium POC Chloride Sodium Potassium 3.5 L Chloride Carbon Dioxide POC BUN BUN Creatinine Glucose 104 H POC Glucose Calcium 7.6 L Magnesium 1.4 L AST Alkaline Phosphatase Lactate Dehydrogenase Total Creatine Kinase Total Protein Albumin Urine WBC (Auto) Crossmatch 06/20/16 06/20/16 06/20/16 04:15 18:15 18:15 WBC 16.6 H RBC 1.19 L Hgb 9.2 L 3.5 L* D POC Hgb Hct 27.5 L D 11.0 L* D POC Hct MCH MCHC RDW Plt Count 138 L Lymph % (Auto) [place] % (Auto) Lymph # [place] # Baso # Seg Neutrophils % Seg Neuts % (Manual) Lymphocytes % (Manual) Monocytes % (Manual) Nucleated RBC % Seg Neutrophils # Seg Neutrophils # Man Lymphocytes # (Manual) Monocytes # (Manual) PT INR APTT Fibrinogen Heparin Anti-Xa Level POC ABG pH POC ABG pCO2 POC ABG pO2 POC Potassium POC Chloride Sodium 146 H Potassium Chloride Carbon Dioxide 14 L D POC BUN BUN Creatinine Glucose 31 L* POC Glucose Calcium 6.7 L Magnesium AST Alkaline Phosphatase Lactate Dehydrogenase Total Creatine Kinase Total Protein Albumin Urine WBC (Auto) Crossmatch 06/20/16 06/20/16 06/20/16 18:15 19:33 19:36 WBC RBC Hgb POC Hgb Hct POC Hct MCH MCHC RDW Plt Count Lymph % (Auto) [place] % (Auto) Lymph # [place] # Baso # Seg Neutrophils % Seg Neuts % (Manual) Lymphocytes % (Manual) Monocytes % (Manual) Nucleated RBC % Seg Neutrophils # Seg Neutrophils # Man Lymphocytes # (Manual) Monocytes # (Manual) PT INR APTT Fibrinogen Heparin Anti-Xa Level POC ABG pH POC ABG pCO2 26.3 L POC ABG pO2 394 H POC Potassium POC Chloride Sodium Potassium Chloride Carbon Dioxide POC BUN BUN Creatinine Glucose POC Glucose 212 H Calcium Magnesium AST Alkaline Phosphatase Lactate Dehydrogenase Total Creatine Kinase Total Protein Albumin Urine WBC (Auto) Crossmatch See Detail 06/20/16 06/20/16 06/21/16 22:01 23:00 00:35 WBC RBC Hgb POC Hgb Hct POC Hct MCH MCHC RDW Plt Count Lymph % (Auto) [place] % (Auto) Lymph # [place] # Baso # Seg Neutrophils % Seg Neuts % (Manual) Lymphocytes % (Manual) Monocytes % (Manual) Nucleated RBC % Seg Neutrophils # Seg Neutrophils # Man Lymphocytes # (Manual) Monocytes # (Manual) PT 21.3 H INR 1.85 H APTT 48.4 H Fibrinogen Heparin Anti-Xa Level POC ABG pH POC ABG pCO2 POC ABG pO2 POC Potassium POC Chloride Sodium Potassium Chloride Carbon Dioxide POC BUN BUN Creatinine Glucose POC Glucose 149 H 147 H Calcium Magnesium AST Alkaline Phosphatase Lactate Dehydrogenase Total Creatine Kinase Total Protein Albumin Urine WBC (Auto) Crossmatch 06/21/16 06/21/16 06/21/16 04:30 04:30 06:01 WBC 21.7 H RBC 3.58 L Hgb POC Hgb Hct POC Hct MCH MCHC 35 H RDW Plt Count 116 L Lymph % (Auto) [place] % (Auto) Lymph # [place] # Baso # Seg Neutrophils % Seg Neuts % (Manual) Lymphocytes % (Manual) 8.0 L Monocytes % (Manual) Nucleated RBC % 3.0 H Seg Neutrophils # Seg Neutrophils # Man 13.7 H Lymphocytes # (Manual) Monocytes # (Manual) 1.5 H PT INR APTT Fibrinogen Heparin Anti-Xa Level POC ABG pH 7.541 H POC ABG pCO2 21.1 L POC ABG pO2 108 H POC Potassium POC Chloride Sodium Potassium 3.0 L Chloride 110.3 H Carbon Dioxide 18 L POC BUN BUN 18 H Creatinine Glucose 141 H POC Glucose Calcium 6.4 L Magnesium AST Alkaline Phosphatase Lactate Dehydrogenase Total Creatine Kinase Total Protein Albumin Urine WBC (Auto) Crossmatch 06/21/16 06/21/16 06/21/16 07:00 10:02 17:51 WBC RBC Hgb 8.3 L POC Hgb Hct 24.7 L D POC Hct MCH MCHC RDW Plt Count Lymph % (Auto) [place] % (Auto) Lymph # [place] # Baso # Seg Neutrophils % Seg Neuts % (Manual) Lymphocytes % (Manual) Monocytes % (Manual) Nucleated RBC % Seg Neutrophils # Seg Neutrophils # Man Lymphocytes # (Manual) Monocytes # (Manual) PT INR APTT Fibrinogen Heparin Anti-Xa Level POC ABG pH POC ABG pCO2 POC ABG pO2 POC Potassium POC Chloride Sodium Potassium Chloride Carbon Dioxide POC BUN BUN Creatinine Glucose POC Glucose 132 H 106 H Calcium Magnesium AST Alkaline Phosphatase Lactate Dehydrogenase Total Creatine Kinase Total Protein Albumin Urine WBC (Auto) Crossmatch 06/22/16 06/22/16 06/22/16 05:00 05:00 06:40 WBC 20.6 H RBC 3.54 L Hgb POC Hgb Hct POC Hct MCH MCHC RDW Plt Count 129 L Lymph % (Auto) [place] % (Auto) Lymph # [place] # Baso # Seg Neutrophils % Seg Neuts % (Manual) 87.0 H Lymphocytes % (Manual) 4.0 L Monocytes % (Manual) Nucleated RBC % 4.0 H Seg Neutrophils # Seg Neutrophils # Man 17.9 H Lymphocytes # (Manual) 0.8 L Monocytes # (Manual) 1.2 H PT INR APTT Fibrinogen Heparin Anti-Xa Level POC ABG pH POC ABG pCO2 21.9 L POC ABG pO2 118 H POC Potassium POC Chloride Sodium Potassium Chloride 109.9 H Carbon Dioxide 15 L POC BUN BUN 26 H Creatinine 2.2 H D Glucose POC Glucose Calcium 6.3 L Magnesium AST Alkaline Phosphatase Lactate Dehydrogenase Total Creatine Kinase Total Protein Albumin Urine WBC (Auto) Crossmatch 06/22/16 06/22/16 06/22/16 09:15 09:15 23:17 WBC RBC Hgb 9.1 L POC Hgb Hct 26.9 L POC Hct MCH MCHC RDW Plt Count 116 L Lymph % (Auto) [place] % (Auto) Lymph # [place] # Baso # Seg Neutrophils % Seg Neuts % (Manual) Lymphocytes % (Manual) Monocytes % (Manual) Nucleated RBC % Seg Neutrophils # Seg Neutrophils # Man Lymphocytes # (Manual) Monocytes # (Manual) PT 15.8 H INR 1.27 H APTT Fibrinogen Heparin Anti-Xa Level POC ABG pH POC ABG pCO2 POC ABG pO2 POC Potassium POC Chloride Sodium Potassium Chloride Carbon Dioxide POC BUN BUN Creatinine Glucose POC Glucose 134 H Calcium Magnesium AST Alkaline Phosphatase Lactate Dehydrogenase Total Creatine Kinase Total Protein Albumin Urine WBC (Auto) Crossmatch 06/23/16 06/23/16 06/23/16 05:43 05:43 09:44 WBC 13.8 H RBC 2.70 L Hgb 8.1 L POC Hgb Hct 24.2 L POC Hct MCH MCHC RDW Plt Count 93 L Lymph % (Auto) 6.2 L [place] % (Auto) Lymph # 0.9 L [place] # Baso # Seg Neutrophils % 89.2 H Seg Neuts % (Manual) Lymphocytes % (Manual) Monocytes % (Manual) Nucleated RBC % Seg Neutrophils # 12.3 H Seg Neutrophils # Man Lymphocytes # (Manual) Monocytes # (Manual) PT INR APTT Fibrinogen Heparin Anti-Xa Level POC ABG pH 7.593 H POC ABG pCO2 26.8 L POC ABG pO2 141 H POC Potassium POC Chloride Sodium 146 H Potassium Chloride Carbon Dioxide POC BUN BUN 32 H Creatinine 2.6 H Glucose 142 H POC Glucose Calcium 7.0 L Magnesium AST Alkaline Phosphatase Lactate Dehydrogenase Total Creatine Kinase Total Protein Albumin Urine WBC (Auto) Crossmatch 06/23/16 06/23/16 06/23/16 11:23 17:42 23:32 WBC RBC Hgb POC Hgb Hct POC Hct MCH MCHC RDW Plt Count Lymph % (Auto) [place] % (Auto) Lymph # [place] # Baso # Seg Neutrophils % Seg Neuts % (Manual) Lymphocytes % (Manual) Monocytes % (Manual) Nucleated RBC % Seg Neutrophils # Seg Neutrophils # Man Lymphocytes # (Manual) Monocytes # (Manual) PT INR APTT Fibrinogen Heparin Anti-Xa Level POC ABG pH POC ABG pCO2 POC ABG pO2 POC Potassium POC Chloride Sodium Potassium Chloride Carbon Dioxide POC BUN BUN Creatinine Glucose POC Glucose 138 H 133 H 111 H Calcium Magnesium AST Alkaline Phosphatase Lactate Dehydrogenase Total Creatine Kinase Total Protein Albumin Urine WBC (Auto) Crossmatch 06/24/16 06/24/16 06/24/16 06:27 08:10 08:10 WBC 16.6 H RBC 2.91 L Hgb 8.9 L POC Hgb Hct 26.4 L POC Hct MCH MCHC RDW 15.6 H Plt Count 115 L Lymph % (Auto) 4.6 L [place] % (Auto) Lymph # 0.8 L [place] # 1.0 H Baso # Seg Neutrophils % 89.2 H Seg Neuts % (Manual) Lymphocytes % (Manual) Monocytes % (Manual) Nucleated RBC % Seg Neutrophils # 14.9 H Seg Neutrophils # Man Lymphocytes # (Manual) Monocytes # (Manual) PT INR APTT Fibrinogen Heparin Anti-Xa Level POC ABG pH POC ABG pCO2 POC ABG pO2 POC Potassium POC Chloride Sodium 146 H Potassium Chloride Carbon Dioxide POC BUN BUN 37 H Creatinine 2.9 H Glucose POC Glucose 109 H Calcium 7.5 L Magnesium AST Alkaline Phosphatase Lactate Dehydrogenase Total Creatine Kinase Total Protein Albumin Urine WBC (Auto) Crossmatch 06/24/16 06/24/16 06/24/16 12:05 17:57 22:13 WBC RBC Hgb POC Hgb Hct POC Hct MCH MCHC RDW Plt Count Lymph % (Auto) [place] % (Auto) Lymph # [place] # Baso # Seg Neutrophils % Seg Neuts % (Manual) Lymphocytes % (Manual) Monocytes % (Manual) Nucleated RBC % Seg Neutrophils # Seg Neutrophils # Man Lymphocytes # (Manual) Monocytes # (Manual) PT INR APTT Fibrinogen Heparin Anti-Xa Level POC ABG pH POC ABG pCO2 POC ABG pO2 POC Potassium POC Chloride Sodium Potassium Chloride Carbon Dioxide POC BUN BUN Creatinine Glucose POC Glucose 117 H 124 H 116 H Calcium Magnesium AST Alkaline Phosphatase Lactate Dehydrogenase Total Creatine Kinase Total Protein Albumin Urine WBC (Auto) Crossmatch 06/25/16 06/25/16 06/25/16 06:42 06:49 12:14 WBC RBC Hgb POC Hgb Hct POC Hct MCH MCHC RDW Plt Count Lymph % (Auto) [place] % (Auto) Lymph # [place] # Baso # Seg Neutrophils % Seg Neuts % (Manual) Lymphocytes % (Manual) Monocytes % (Manual) Nucleated RBC % Seg Neutrophils # Seg Neutrophils # Man Lymphocytes # (Manual) Monocytes # (Manual) PT INR APTT Fibrinogen Heparin Anti-Xa Level POC ABG pH POC ABG pCO2 POC ABG pO2 POC Potassium POC Chloride Sodium Potassium Chloride Carbon Dioxide POC BUN BUN 46 H Creatinine 3.6 H Glucose 133 H POC Glucose 137 H 136 H Calcium 7.4 L Magnesium AST Alkaline Phosphatase Lactate Dehydrogenase Total Creatine Kinase Total Protein Albumin Urine WBC (Auto) Crossmatch 06/25/16 06/25/16 06/26/16 16:07 21:32 05:55 WBC RBC Hgb POC Hgb Hct POC Hct MCH MCHC RDW Plt Count Lymph % (Auto) [place] % (Auto) Lymph # [place] # Baso # Seg Neutrophils % Seg Neuts % (Manual) Lymphocytes % (Manual) Monocytes % (Manual) Nucleated RBC % Seg Neutrophils # Seg Neutrophils # Man Lymphocytes # (Manual) Monocytes # (Manual) PT INR APTT Fibrinogen Heparin Anti-Xa Level POC ABG pH POC ABG pCO2 POC ABG pO2 POC Potassium POC Chloride Sodium Potassium Chloride Carbon Dioxide 20 L POC BUN BUN 55 H Creatinine 4.2 H Glucose 120 H POC Glucose 146 H 146 H Calcium 7.5 L Magnesium AST Alkaline Phosphatase Lactate Dehydrogenase Total Creatine Kinase Total Protein Albumin Urine WBC (Auto) Crossmatch 06/26/16 06/26/16 06/26/16 06:30 11:38 16:45 WBC RBC Hgb POC Hgb Hct POC Hct MCH MCHC RDW Plt Count Lymph % (Auto) [place] % (Auto) Lymph # [place] # Baso # Seg Neutrophils % Seg Neuts % (Manual) Lymphocytes % (Manual) Monocytes % (Manual) Nucleated RBC % Seg Neutrophils # Seg Neutrophils # Man Lymphocytes # (Manual) Monocytes # (Manual) PT INR APTT Fibrinogen Heparin Anti-Xa Level POC ABG pH POC ABG pCO2 POC ABG pO2 POC Potassium POC Chloride Sodium Potassium Chloride Carbon Dioxide POC BUN BUN Creatinine Glucose POC Glucose 128 H 143 H 121 H Calcium Magnesium AST Alkaline Phosphatase Lactate Dehydrogenase Total Creatine Kinase Total Protein Albumin Urine WBC (Auto) Crossmatch 06/26/16 06/26/16 06/27/16 22:57 22:57 00:47 WBC RBC Hgb 8.4 L POC Hgb Hct 25.1 L POC Hct MCH MCHC RDW Plt Count Lymph % (Auto) [place] % (Auto) Lymph # [place] # Baso # Seg Neutrophils % Seg Neuts % (Manual) Lymphocytes % (Manual) Monocytes % (Manual) Nucleated RBC % Seg Neutrophils # Seg Neutrophils # Man Lymphocytes # (Manual) Monocytes # (Manual) PT 19.9 H INR 1.69 H APTT Fibrinogen Heparin Anti-Xa Level POC ABG pH POC ABG pCO2 POC ABG pO2 POC Potassium POC Chloride Sodium Potassium Chloride Carbon Dioxide POC BUN BUN Creatinine Glucose POC Glucose 110 H Calcium Magnesium AST Alkaline Phosphatase Lactate Dehydrogenase Total Creatine Kinase Total Protein Albumin Urine WBC (Auto) Crossmatch 06/27/16 06/27/16 06/27/16 05:43 05:43 06:40 WBC RBC Hgb POC Hgb Hct POC Hct MCH MCHC RDW Plt Count Lymph % (Auto) [place] % (Auto) Lymph # [place] # Baso # Seg Neutrophils % Seg Neuts % (Manual) Lymphocytes % (Manual) Monocytes % (Manual) Nucleated RBC % Seg Neutrophils # Seg Neutrophils # Man Lymphocytes # (Manual) Monocytes # (Manual) PT INR APTT Fibrinogen Heparin Anti-Xa Level 2.00 H POC ABG pH POC ABG pCO2 POC ABG pO2 POC Potassium POC Chloride Sodium Potassium Chloride Carbon Dioxide 20 L POC BUN BUN 58 H Creatinine 4.8 H Glucose POC Glucose 109 H Calcium 8.1 L Magnesium AST Alkaline Phosphatase Lactate Dehydrogenase Total Creatine Kinase Total Protein Albumin Urine WBC (Auto) Crossmatch 06/27/16 06/27/16 06/27/16 08:15 16:46 17:47 WBC RBC Hgb POC Hgb Hct POC Hct MCH MCHC RDW Plt Count Lymph % (Auto) [place] % (Auto) Lymph # [place] # Baso # Seg Neutrophils % Seg Neuts % (Manual) Lymphocytes % (Manual) Monocytes % (Manual) Nucleated RBC % Seg Neutrophils # Seg Neutrophils # Man Lymphocytes # (Manual) Monocytes # (Manual) PT INR APTT Fibrinogen Heparin Anti-Xa Level > 2.00 H 1.87 H POC ABG pH POC ABG pCO2 POC ABG pO2 POC Potassium POC Chloride Sodium Potassium Chloride Carbon Dioxide POC BUN BUN Creatinine Glucose POC Glucose 231 H Calcium Magnesium AST Alkaline Phosphatase Lactate Dehydrogenase Total Creatine Kinase Total Protein Albumin Urine WBC (Auto) Crossmatch 06/27/16 06/27/16 06/28/16 21:23 23:54 06:27 WBC RBC Hgb POC Hgb Hct POC Hct MCH MCHC RDW Plt Count Lymph % (Auto) [place] % (Auto) Lymph # [place] # Baso # Seg Neutrophils % Seg Neuts % (Manual) Lymphocytes % (Manual) Monocytes % (Manual) Nucleated RBC % Seg Neutrophils # Seg Neutrophils # Man Lymphocytes # (Manual) Monocytes # (Manual) PT INR APTT Fibrinogen Heparin Anti-Xa Level 1.70 H POC ABG pH POC ABG pCO2 POC ABG pO2 POC Potassium POC Chloride Sodium Potassium Chloride Carbon Dioxide POC BUN BUN 62 H Creatinine 4.5 H Glucose 111 H POC Glucose 122 H Calcium 8.3 L Magnesium AST Alkaline Phosphatase Lactate Dehydrogenase Total Creatine Kinase Total Protein Albumin Urine WBC (Auto) Crossmatch 06/28/16 06/28/16 06/28/16 06:27 11:47 14:14 WBC RBC Hgb 7.7 L POC Hgb Hct 22.9 L POC Hct MCH MCHC RDW Plt Count Lymph % (Auto) [place] % (Auto) Lymph # [place] # Baso # Seg Neutrophils % Seg Neuts % (Manual) Lymphocytes % (Manual) Monocytes % (Manual) Nucleated RBC % Seg Neutrophils # Seg Neutrophils # Man Lymphocytes # (Manual) Monocytes # (Manual) PT INR APTT Fibrinogen Heparin Anti-Xa Level POC ABG pH 7.461 H POC ABG pCO2 31.9 L POC ABG pO2 73 L POC Potassium POC Chloride Sodium Potassium Chloride Carbon Dioxide POC BUN BUN Creatinine Glucose POC Glucose 155 H Calcium Magnesium AST Alkaline Phosphatase Lactate Dehydrogenase Total Creatine Kinase Total Protein Albumin Urine WBC (Auto) Crossmatch 06/28/16 06/28/16 06/28/16 16:27 20:47 22:59 WBC RBC Hgb POC Hgb Hct POC Hct MCH MCHC RDW Plt Count Lymph % (Auto) [place] % (Auto) Lymph # [place] # Baso # Seg Neutrophils % Seg Neuts % (Manual) Lymphocytes % (Manual) Monocytes % (Manual) Nucleated RBC % Seg Neutrophils # Seg Neutrophils # Man Lymphocytes # (Manual) Monocytes # (Manual) PT INR APTT Fibrinogen Heparin Anti-Xa Level 1.16 H POC ABG pH POC ABG pCO2 POC ABG pO2 POC Potassium POC Chloride Sodium Potassium Chloride Carbon Dioxide POC BUN BUN Creatinine Glucose POC Glucose 193 H 126 H Calcium Magnesium AST Alkaline Phosphatase Lactate Dehydrogenase Total Creatine Kinase Total Protein Albumin Urine WBC (Auto) Crossmatch 06/29/16 06/29/16 06/29/16 05:51 09:10 09:10 WBC RBC Hgb POC Hgb Hct POC Hct MCH MCHC RDW Plt Count Lymph % (Auto) [place] % (Auto) Lymph # [place] # Baso # Seg Neutrophils % Seg Neuts % (Manual) Lymphocytes % (Manual) Monocytes % (Manual) Nucleated RBC % Seg Neutrophils # Seg Neutrophils # Man Lymphocytes # (Manual) Monocytes # (Manual) PT INR APTT Fibrinogen Heparin Anti-Xa Level 0.92 H POC ABG pH POC ABG pCO2 POC ABG pO2 POC Potassium POC Chloride Sodium Potassium Chloride Carbon Dioxide POC BUN BUN 53 H Creatinine 3.7 H Glucose 139 H POC Glucose 121 H Calcium 8.2 L Magnesium AST Alkaline Phosphatase Lactate Dehydrogenase Total Creatine Kinase Total Protein Albumin Urine WBC (Auto) Crossmatch 06/29/16 06/30/16 06/30/16 21:22 05:09 08:07 WBC RBC Hgb 7.3 L POC Hgb Hct 21.9 L POC Hct MCH MCHC RDW Plt Count Lymph % (Auto) [place] % (Auto) Lymph # [place] # Baso # Seg Neutrophils % Seg Neuts % (Manual) Lymphocytes % (Manual) Monocytes % (Manual) Nucleated RBC % Seg Neutrophils # Seg Neutrophils # Man Lymphocytes # (Manual) Monocytes # (Manual) PT INR APTT Fibrinogen Heparin Anti-Xa Level POC ABG pH POC ABG pCO2 POC ABG pO2 POC Potassium POC Chloride Sodium Potassium Chloride Carbon Dioxide POC BUN BUN Creatinine Glucose POC Glucose 108 H 106 H Calcium Magnesium AST Alkaline Phosphatase Lactate Dehydrogenase Total Creatine Kinase Total Protein Albumin Urine WBC (Auto) Crossmatch 06/30/16 06/30/16 06/30/16 10:48 12:13 16:48 WBC RBC Hgb POC Hgb Hct POC Hct MCH MCHC RDW Plt Count Lymph % (Auto) [place] % (Auto) Lymph # [place] # Baso # Seg Neutrophils % Seg Neuts % (Manual) Lymphocytes % (Manual) Monocytes % (Manual) Nucleated RBC % Seg Neutrophils # Seg Neutrophils # Man Lymphocytes # (Manual) Monocytes # (Manual) PT INR APTT Fibrinogen Heparin Anti-Xa Level POC ABG pH POC ABG pCO2 POC ABG pO2 POC Potassium POC Chloride Sodium Potassium Chloride Carbon Dioxide POC BUN BUN 46 H Creatinine 3.0 H Glucose POC Glucose 153 H 152 H Calcium Magnesium AST Alkaline Phosphatase Lactate Dehydrogenase Total Creatine Kinase Total Protein Albumin Urine WBC (Auto) Crossmatch 06/30/16 07/01/16 07/01/16 21:47 05:47 07:44 WBC 19.8 H RBC 2.45 L Hgb 7.2 L POC Hgb Hct 22.2 L POC Hct MCH MCHC RDW Plt Count 481 H Lymph % (Auto) 5.5 L [place] % (Auto) Lymph # 1.1 L [place] # 1.4 H Baso # Seg Neutrophils % 86.8 H Seg Neuts % (Manual) Lymphocytes % (Manual) Monocytes % (Manual) Nucleated RBC % Seg Neutrophils # 17.1 H Seg Neutrophils # Man Lymphocytes # (Manual) Monocytes # (Manual) PT INR APTT Fibrinogen Heparin Anti-Xa Level POC ABG pH POC ABG pCO2 POC ABG pO2 POC Potassium POC Chloride Sodium Potassium Chloride Carbon Dioxide POC BUN BUN Creatinine Glucose POC Glucose 162 H 124 H Calcium Magnesium AST Alkaline Phosphatase Lactate Dehydrogenase Total Creatine Kinase Total Protein Albumin Urine WBC (Auto) Crossmatch 07/01/16 07/01/16 07/01/16 07:44 11:55 16:16 WBC RBC Hgb POC Hgb Hct POC Hct MCH MCHC RDW Plt Count Lymph % (Auto) [place] % (Auto) Lymph # [place] # Baso # Seg Neutrophils % Seg Neuts % (Manual) Lymphocytes % (Manual) Monocytes % (Manual) Nucleated RBC % Seg Neutrophils # Seg Neutrophils # Man Lymphocytes # (Manual) Monocytes # (Manual) PT INR APTT Fibrinogen Heparin Anti-Xa Level POC ABG pH POC ABG pCO2 POC ABG pO2 POC Potassium POC Chloride Sodium Potassium 3.1 L Chloride Carbon Dioxide POC BUN BUN 38 H Creatinine 2.2 H Glucose 114 H POC Glucose 114 H 143 H Calcium Magnesium AST Alkaline Phosphatase Lactate Dehydrogenase Total Creatine Kinase Total Protein Albumin Urine WBC (Auto) Crossmatch 07/01/16 07/02/16 07/02/16 21:42 05:40 06:46 WBC 18.1 H RBC 2.45 L Hgb 7.3 L POC Hgb Hct 21.8 L POC Hct MCH MCHC RDW Plt Count 490 H Lymph % (Auto) 6.1 L [place] % (Auto) Lymph # 1.1 L [place] # 1.1 H Baso # 0.2 H Seg Neutrophils % 86.0 H Seg Neuts % (Manual) Lymphocytes % (Manual) Monocytes % (Manual) Nucleated RBC % Seg Neutrophils # 15.6 H Seg Neutrophils # Man Lymphocytes # (Manual) Monocytes # (Manual) PT INR APTT Fibrinogen Heparin Anti-Xa Level POC ABG pH POC ABG pCO2 POC ABG pO2 POC Potassium POC Chloride Sodium Potassium Chloride Carbon Dioxide POC BUN BUN Creatinine Glucose POC Glucose 135 H 135 H Calcium Magnesium AST Alkaline Phosphatase Lactate Dehydrogenase Total Creatine Kinase Total Protein Albumin Urine WBC (Auto) Crossmatch 07/02/16 07/02/16 07/02/16 06:46 06:49 11:23 WBC RBC Hgb POC Hgb Hct POC Hct MCH MCHC RDW Plt Count Lymph % (Auto) [place] % (Auto) Lymph # [place] # Baso # Seg Neutrophils % Seg Neuts % (Manual) Lymphocytes % (Manual) Monocytes % (Manual) Nucleated RBC % Seg Neutrophils # Seg Neutrophils # Man Lymphocytes # (Manual) Monocytes # (Manual) PT INR APTT Fibrinogen Heparin Anti-Xa Level POC ABG pH POC ABG pCO2 POC ABG pO2 POC Potassium POC Chloride Sodium Potassium 2.8 L* Chloride Carbon Dioxide POC BUN BUN 30 H Creatinine 1.8 H Glucose 121 H POC Glucose 121 H Calcium 8.1 L Magnesium 1.3 L AST Alkaline Phosphatase Lactate Dehydrogenase Total Creatine Kinase Total Protein Albumin Urine WBC (Auto) Crossmatch 07/02/16 07/02/16 07/03/16 17:02 21:31 05:35 WBC RBC Hgb POC Hgb Hct POC Hct MCH MCHC RDW Plt Count Lymph % (Auto) [place] % (Auto) Lymph # [place] # Baso # Seg Neutrophils % Seg Neuts % (Manual) Lymphocytes % (Manual) Monocytes % (Manual) Nucleated RBC % Seg Neutrophils # Seg Neutrophils # Man Lymphocytes # (Manual) Monocytes # (Manual) PT INR APTT Fibrinogen Heparin Anti-Xa Level POC ABG pH POC ABG pCO2 POC ABG pO2 POC Potassium POC Chloride Sodium Potassium Chloride Carbon Dioxide POC BUN BUN Creatinine Glucose POC Glucose 121 H 159 H 149 H Calcium Magnesium AST Alkaline Phosphatase Lactate Dehydrogenase Total Creatine Kinase Total Protein Albumin Urine WBC (Auto) Crossmatch 07/03/16 07/03/16 07/03/16 06:45 06:45 06:45 WBC 16.8 H RBC 2.21 L Hgb 6.5 L POC Hgb Hct 19.4 L* POC Hct MCH MCHC RDW Plt Count 503 H Lymph % (Auto) 6.4 L [place] % (Auto) Lymph # 1.1 L [place] # 1.1 H Baso # Seg Neutrophils % 85.6 H Seg Neuts % (Manual) Lymphocytes % (Manual) Monocytes % (Manual) Nucleated RBC % Seg Neutrophils # 14.4 H Seg Neutrophils # Man Lymphocytes # (Manual) Monocytes # (Manual) PT INR APTT Fibrinogen Heparin Anti-Xa Level POC ABG pH POC ABG pCO2 POC ABG pO2 POC Potassium POC Chloride Sodium Potassium 2.9 L* Chloride Carbon Dioxide POC BUN BUN 21 H Creatinine 1.6 H Glucose 126 H POC Glucose Calcium 8.0 L Magnesium 1.6 L AST Alkaline Phosphatase Lactate Dehydrogenase Total Creatine Kinase Total Protein Albumin Urine WBC (Auto) Crossmatch 07/03/16 07/03/16 07/03/16 12:54 19:00 20:01 WBC RBC Hgb POC Hgb Hct POC Hct MCH MCHC RDW Plt Count Lymph % (Auto) [place] % (Auto) Lymph # [place] # Baso # Seg Neutrophils % Seg Neuts % (Manual) Lymphocytes % (Manual) Monocytes % (Manual) Nucleated RBC % Seg Neutrophils # Seg Neutrophils # Man Lymphocytes # (Manual) Monocytes # (Manual) PT INR APTT Fibrinogen Heparin Anti-Xa Level POC ABG pH 7.302 L POC ABG pCO2 49.8 H POC ABG pO2 422 H POC Potassium POC Chloride Sodium Potassium Chloride Carbon Dioxide POC BUN BUN Creatinine Glucose POC Glucose 129 H Calcium Magnesium AST Alkaline Phosphatase Lactate Dehydrogenase Total Creatine Kinase Total Protein Albumin Urine WBC (Auto) Crossmatch See Detail 07/03/16 07/04/16 07/04/16 23:09 04:30 04:30 WBC 19.6 H RBC 3.21 L Hgb 9.4 L POC Hgb Hct 28.2 L POC Hct MCH MCHC RDW Plt Count Lymph % (Auto) 6.5 L [place] % (Auto) Lymph # [place] # 1.2 H Baso # Seg Neutrophils % 86.4 H Seg Neuts % (Manual) Lymphocytes % (Manual) Monocytes % (Manual) Nucleated RBC % Seg Neutrophils # 16.9 H Seg Neutrophils # Man Lymphocytes # (Manual) Monocytes # (Manual) PT INR APTT Fibrinogen Heparin Anti-Xa Level POC ABG pH POC ABG pCO2 POC ABG pO2 POC Potassium POC Chloride Sodium Potassium 3.5 L D Chloride 111.2 H Carbon Dioxide 20 L POC BUN BUN 18 H Creatinine Glucose POC Glucose 111 H Calcium 7.0 L Magnesium AST Alkaline Phosphatase Lactate Dehydrogenase Total Creatine Kinase Total Protein Albumin Urine WBC (Auto) Crossmatch 07/04/16 07/04/16 07/04/16 05:44 12:50 14:33 WBC RBC Hgb POC Hgb Hct POC Hct MCH MCHC RDW Plt Count Lymph % (Auto) [place] % (Auto) Lymph # [place] # Baso # Seg Neutrophils % Seg Neuts % (Manual) Lymphocytes % (Manual) Monocytes % (Manual) Nucleated RBC % Seg Neutrophils # Seg Neutrophils # Man Lymphocytes # (Manual) Monocytes # (Manual) PT INR APTT Fibrinogen Heparin Anti-Xa Level POC ABG pH 7.465 H 7.468 H POC ABG pCO2 29.5 L 29.1 L 33.1 L POC ABG pO2 110 H 39 L POC Potassium POC Chloride Sodium Potassium Chloride Carbon Dioxide POC BUN BUN Creatinine Glucose POC Glucose Calcium Magnesium AST Alkaline Phosphatase Lactate Dehydrogenase Total Creatine Kinase Total Protein Albumin Urine WBC (Auto) Crossmatch 07/04/16 07/05/16 07/05/16 16:49 00:20 04:19 WBC 16.2 H RBC 3.44 L Hgb POC Hgb Hct POC Hct MCH MCHC RDW Plt Count Lymph % (Auto) 5.2 L [place] % (Auto) 7.5 H Lymph # 0.8 L [place] # 1.2 H Baso # Seg Neutrophils % 86.5 H Seg Neuts % (Manual) Lymphocytes % (Manual) Monocytes % (Manual) Nucleated RBC % Seg Neutrophils # 14.0 H Seg Neutrophils # Man Lymphocytes # (Manual) Monocytes # (Manual) PT INR APTT Fibrinogen Heparin Anti-Xa Level POC ABG pH POC ABG pCO2 31.1 L POC ABG pO2 110 H POC Potassium POC Chloride Sodium Potassium Chloride Carbon Dioxide POC BUN BUN Creatinine Glucose POC Glucose 168 H Calcium Magnesium AST Alkaline Phosphatase Lactate Dehydrogenase Total Creatine Kinase Total Protein Albumin Urine WBC (Auto) Crossmatch 07/05/16 07/05/16 07/05/16 04:19 06:01 09:54 WBC RBC Hgb POC Hgb Hct POC Hct MCH MCHC RDW Plt Count Lymph % (Auto) [place] % (Auto) Lymph # [place] # Baso # Seg Neutrophils % Seg Neuts % (Manual) Lymphocytes % (Manual) Monocytes % (Manual) Nucleated RBC % Seg Neutrophils # Seg Neutrophils # Man Lymphocytes # (Manual) Monocytes # (Manual) PT INR APTT Fibrinogen Heparin Anti-Xa Level POC ABG pH POC ABG pCO2 POC ABG pO2 POC Potassium POC Chloride Sodium 146 H Potassium 3.5 L Chloride 109.1 H Carbon Dioxide POC BUN BUN Creatinine Glucose 135 H POC Glucose 146 H 284 H Calcium 7.8 L Magnesium AST Alkaline Phosphatase Lactate Dehydrogenase Total Creatine Kinase Total Protein Albumin Urine WBC (Auto) Crossmatch 07/05/16 07/06/16 07/06/16 13:35 04:40 04:40 WBC 17.7 H RBC 3.32 L Hgb 9.8 L POC Hgb Hct 29.8 L POC Hct MCH MCHC RDW Plt Count Lymph % (Auto) [place] % (Auto) Lymph # [place] # Baso # Seg Neutrophils % Seg Neuts % (Manual) 85.0 H Lymphocytes % (Manual) 4.0 L Monocytes % (Manual) 10.0 H Nucleated RBC % Seg Neutrophils # Seg Neutrophils # Man 15.0 H Lymphocytes # (Manual) 0.7 L Monocytes # (Manual) 1.8 H PT INR APTT Fibrinogen Heparin Anti-Xa Level POC ABG pH POC ABG pCO2 POC ABG pO2 POC Potassium POC Chloride Sodium Potassium 3.5 L Chloride Carbon Dioxide 21 L POC BUN BUN Creatinine Glucose 108 H POC Glucose 130 H Calcium 7.8 L Magnesium AST Alkaline Phosphatase Lactate Dehydrogenase Total Creatine Kinase Total Protein Albumin Urine WBC (Auto) Crossmatch 07/06/16 07/06/16 07/06/16 07:46 11:49 15:31 WBC RBC Hgb POC Hgb Hct POC Hct MCH MCHC RDW Plt Count Lymph % (Auto) [place] % (Auto) Lymph # [place] # Baso # Seg Neutrophils % Seg Neuts % (Manual) Lymphocytes % (Manual) Monocytes % (Manual) Nucleated RBC % Seg Neutrophils # Seg Neutrophils # Man Lymphocytes # (Manual) Monocytes # (Manual) PT INR APTT Fibrinogen Heparin Anti-Xa Level POC ABG pH POC ABG pCO2 POC ABG pO2 POC Potassium POC Chloride Sodium Potassium Chloride Carbon Dioxide POC BUN BUN Creatinine Glucose POC Glucose 149 H 146 H 135 H Calcium Magnesium AST Alkaline Phosphatase Lactate Dehydrogenase Total Creatine Kinase Total Protein Albumin Urine WBC (Auto) Crossmatch 07/06/16 07/06/16 07/07/16 17:17 20:59 04:53 WBC 15.5 H RBC 3.55 L Hgb POC Hgb Hct POC Hct MCH MCHC RDW Plt Count Lymph % (Auto) 4.9 L [place] % (Auto) Lymph # 0.8 L [place] # 0.9 H Baso # Seg Neutrophils % 87.9 H Seg Neuts % (Manual) Lymphocytes % (Manual) Monocytes % (Manual) Nucleated RBC % Seg Neutrophils # 13.7 H Seg Neutrophils # Man Lymphocytes # (Manual) Monocytes # (Manual) PT INR APTT Fibrinogen Heparin Anti-Xa Level POC ABG pH POC ABG pCO2 POC ABG pO2 POC Potassium POC Chloride Sodium Potassium Chloride Carbon Dioxide POC BUN BUN Creatinine Glucose POC Glucose 140 H Calcium Magnesium AST Alkaline Phosphatase Lactate Dehydrogenase Total Creatine Kinase Total Protein Albumin Urine WBC (Auto) 67.0 H Crossmatch 07/07/16 07/07/16 07/07/16 04:53 06:13 07:15 WBC RBC Hgb POC Hgb Hct POC Hct MCH MCHC RDW Plt Count Lymph % (Auto) [place] % (Auto) Lymph # [place] # Baso # Seg Neutrophils % Seg Neuts % (Manual) Lymphocytes % (Manual) Monocytes % (Manual) Nucleated RBC % Seg Neutrophils # Seg Neutrophils # Man Lymphocytes # (Manual) Monocytes # (Manual) PT INR APTT Fibrinogen Heparin Anti-Xa Level POC ABG pH POC ABG pCO2 POC ABG pO2 POC Potassium POC Chloride Sodium Potassium 3.4 L Chloride Carbon Dioxide POC BUN BUN Creatinine Glucose 104 H POC Glucose 122 H 134 H Calcium 8.0 L Magnesium AST Alkaline Phosphatase Lactate Dehydrogenase Total Creatine Kinase Total Protein Albumin Urine WBC (Auto) Crossmatch 07/07/16 07/07/16 07/07/16 08:06 08:06 10:31 WBC RBC Hgb POC Hgb Hct POC Hct MCH MCHC RDW Plt Count Lymph % (Auto) [place] % (Auto) Lymph # [place] # Baso # Seg Neutrophils % Seg Neuts % (Manual) Lymphocytes % (Manual) Monocytes % (Manual) Nucleated RBC % Seg Neutrophils # Seg Neutrophils # Man Lymphocytes # (Manual) Monocytes # (Manual) PT INR APTT Fibrinogen Heparin Anti-Xa Level POC ABG pH POC ABG pCO2 POC ABG pO2 POC Potassium POC Chloride Sodium Potassium Chloride Carbon Dioxide POC BUN BUN Creatinine Glucose 111 H POC Glucose 145 H Calcium 7.9 L Magnesium AST 53 H Alkaline Phosphatase 164 H Lactate Dehydrogenase Total Creatine Kinase Total Protein 6.2 L Albumin 1.4 L Urine WBC (Auto) Crossmatch See Detail 07/07/16 07/07/16 07/07/16 12:08 13:57 16:44 WBC RBC Hgb 9.7 L POC Hgb Hct 30.1 L POC Hct MCH MCHC RDW Plt Count Lymph % (Auto) [place] % (Auto) Lymph # [place] # Baso # Seg Neutrophils % Seg Neuts % (Manual) Lymphocytes % (Manual) Monocytes % (Manual) Nucleated RBC % Seg Neutrophils # Seg Neutrophils # Man Lymphocytes # (Manual) Monocytes # (Manual) PT INR APTT Fibrinogen Heparin Anti-Xa Level POC ABG pH POC ABG pCO2 POC ABG pO2 POC Potassium POC Chloride Sodium Potassium Chloride Carbon Dioxide POC BUN BUN Creatinine Glucose POC Glucose 159 H 173 H Calcium Magnesium AST Alkaline Phosphatase Lactate Dehydrogenase Total Creatine Kinase Total Protein Albumin Urine WBC (Auto) Crossmatch 07/07/16 07/08/16 07/08/16 23:31 07:27 12:16 WBC RBC Hgb POC Hgb Hct POC Hct MCH MCHC RDW Plt Count Lymph % (Auto) [place] % (Auto) Lymph # [place] # Baso # Seg Neutrophils % Seg Neuts % (Manual) Lymphocytes % (Manual) Monocytes % (Manual) Nucleated RBC % Seg Neutrophils # Seg Neutrophils # Man Lymphocytes # (Manual) Monocytes # (Manual) PT INR APTT Fibrinogen Heparin Anti-Xa Level POC ABG pH POC ABG pCO2 POC ABG pO2 POC Potassium POC Chloride Sodium Potassium Chloride Carbon Dioxide POC BUN BUN Creatinine Glucose POC Glucose 163 H 149 H 150 H Calcium Magnesium AST Alkaline Phosphatase Lactate Dehydrogenase Total Creatine Kinase Total Protein Albumin Urine WBC (Auto) Crossmatch 07/08/16 07/08/16 07/08/16 12:50 16:46 21:45 WBC RBC Hgb POC Hgb Hct POC Hct MCH MCHC RDW Plt Count Lymph % (Auto) [place] % (Auto) Lymph # [place] # Baso # Seg Neutrophils % Seg Neuts % (Manual) Lymphocytes % (Manual) Monocytes % (Manual) Nucleated RBC % Seg Neutrophils # Seg Neutrophils # Man Lymphocytes # (Manual) Monocytes # (Manual) PT INR APTT Fibrinogen Heparin Anti-Xa Level POC ABG pH POC ABG pCO2 POC ABG pO2 POC Potassium POC Chloride Sodium Potassium Chloride Carbon Dioxide 21 L POC BUN BUN Creatinine Glucose 126 H POC Glucose 143 H 134 H Calcium 7.5 L Magnesium AST Alkaline Phosphatase Lactate Dehydrogenase Total Creatine Kinase Total Protein Albumin Urine WBC (Auto) Crossmatch 07/09/16 07/09/16 07/09/16 07:31 07:31 08:07 WBC RBC Hgb POC Hgb Hct POC Hct MCH MCHC RDW Plt Count Lymph % (Auto) [place] % (Auto) Lymph # [place] # Baso # Seg Neutrophils % Seg Neuts % (Manual) Lymphocytes % (Manual) Monocytes % (Manual) Nucleated RBC % Seg Neutrophils # Seg Neutrophils # Man Lymphocytes # (Manual) Monocytes # (Manual) PT INR APTT Fibrinogen Heparin Anti-Xa Level POC ABG pH POC ABG pCO2 POC ABG pO2 POC Potassium POC Chloride Sodium Potassium Chloride Carbon Dioxide POC BUN BUN Creatinine Glucose 117 H POC Glucose 132 H Calcium 7.5 L Magnesium AST Alkaline Phosphatase 136 H Lactate Dehydrogenase 285 H Total Creatine Kinase 297 H Total Protein 5.4 L Albumin 1.5 L Urine WBC (Auto) Crossmatch 07/09/16 07/09/16 07/09/16 09:55 11:10 16:26 WBC 13.4 H RBC 1.95 L Hgb 5.8 L* D POC Hgb Hct 17.7 L* D POC Hct MCH MCHC RDW 15.5 H Plt Count Lymph % (Auto) 9.4 L [place] % (Auto) 8.3 H Lymph # [place] # 1.1 H Baso # Seg Neutrophils % 81.2 H Seg Neuts % (Manual) Lymphocytes % (Manual) Monocytes % (Manual) Nucleated RBC % Seg Neutrophils # 10.9 H Seg Neutrophils # Man Lymphocytes # (Manual) Monocytes # (Manual) PT INR APTT Fibrinogen Heparin Anti-Xa Level POC ABG pH POC ABG pCO2 POC ABG pO2 POC Potassium POC Chloride Sodium Potassium Chloride Carbon Dioxide POC BUN BUN Creatinine Glucose POC Glucose 240 H 113 H Calcium Magnesium AST Alkaline Phosphatase Lactate Dehydrogenase Total Creatine Kinase Total Protein Albumin Urine WBC (Auto) Crossmatch 07/09/16 07/10/16 07/10/16 21:45 04:10 09:03 WBC 15.1 H RBC 3.00 L Hgb 8.8 L D POC Hgb Hct 26.2 L D POC Hct MCH MCHC RDW 15.4 H Plt Count Lymph % (Auto) 8.4 L [place] % (Auto) 8.4 H Lymph # [place] # 1.3 H Baso # Seg Neutrophils % 82.5 H Seg Neuts % (Manual) Lymphocytes % (Manual) Monocytes % (Manual) Nucleated RBC % Seg Neutrophils # 12.5 H Seg Neutrophils # Man Lymphocytes # (Manual) Monocytes # (Manual) PT INR APTT Fibrinogen Heparin Anti-Xa Level POC ABG pH POC ABG pCO2 POC ABG pO2 POC Potassium POC Chloride Sodium Potassium Chloride Carbon Dioxide POC BUN BUN Creatinine Glucose POC Glucose 113 H 122 H Calcium Magnesium AST Alkaline Phosphatase Lactate Dehydrogenase Total Creatine Kinase Total Protein Albumin Urine WBC (Auto) Crossmatch 07/10/16 07/10/16 07/10/16 11:38 15:36 21:45 WBC RBC Hgb POC Hgb Hct POC Hct MCH MCHC RDW Plt Count Lymph % (Auto) [place] % (Auto) Lymph # [place] # Baso # Seg Neutrophils % Seg Neuts % (Manual) Lymphocytes % (Manual) Monocytes % (Manual) Nucleated RBC % Seg Neutrophils # Seg Neutrophils # Man Lymphocytes # (Manual) Monocytes # (Manual) PT INR APTT Fibrinogen Heparin Anti-Xa Level POC ABG pH POC ABG pCO2 POC ABG pO2 POC Potassium POC Chloride Sodium Potassium Chloride Carbon Dioxide POC BUN BUN Creatinine Glucose POC Glucose 146 H 131 H 141 H Calcium Magnesium AST Alkaline Phosphatase Lactate Dehydrogenase Total Creatine Kinase Total Protein Albumin Urine WBC (Auto) Crossmatch 07/11/16 07/11/16 07/11/16 05:10 07:40 11:45 WBC RBC Hgb POC Hgb Hct POC Hct MCH MCHC RDW Plt Count Lymph % (Auto) [place] % (Auto) Lymph # [place] # Baso # Seg Neutrophils % Seg Neuts % (Manual) Lymphocytes % (Manual) Monocytes % (Manual) Nucleated RBC % Seg Neutrophils # Seg Neutrophils # Man Lymphocytes # (Manual) Monocytes # (Manual) PT INR APTT Fibrinogen Heparin Anti-Xa Level POC ABG pH POC ABG pCO2 POC ABG pO2 POC Potassium POC Chloride Sodium Potassium Chloride Carbon Dioxide POC BUN BUN Creatinine Glucose 107 H POC Glucose 114 H 116 H Calcium 7.7 L Magnesium AST 81 H Alkaline Phosphatase 153 H Lactate Dehydrogenase Total Creatine Kinase Total Protein 6.0 L Albumin 1.8 L Urine WBC (Auto) Crossmatch 07/11/16 07/11/16 07/12/16 16:22 19:45 08:39 WBC RBC Hgb POC Hgb Hct POC Hct MCH MCHC RDW Plt Count Lymph % (Auto) [place] % (Auto) Lymph # [place] # Baso # Seg Neutrophils % Seg Neuts % (Manual) Lymphocytes % (Manual) Monocytes % (Manual) Nucleated RBC % Seg Neutrophils # Seg Neutrophils # Man Lymphocytes # (Manual) Monocytes # (Manual) PT INR APTT Fibrinogen Heparin Anti-Xa Level POC ABG pH POC ABG pCO2 POC ABG pO2 POC Potassium POC Chloride Sodium Potassium Chloride Carbon Dioxide POC BUN BUN Creatinine Glucose POC Glucose 110 H 106 H 124 H Calcium Magnesium AST Alkaline Phosphatase Lactate Dehydrogenase Total Creatine Kinase Total Protein Albumin Urine WBC (Auto) Crossmatch 07/12/16 07/12/16 07/13/16 11:31 16:36 07:05 WBC 12.4 H RBC 2.93 L Hgb 8.5 L POC Hgb Hct 25.6 L POC Hct MCH MCHC RDW Plt Count Lymph % (Auto) 11.2 L [place] % (Auto) 7.5 H Lymph # [place] # 0.9 H Baso # Seg Neutrophils % 80.6 H Seg Neuts % (Manual) Lymphocytes % (Manual) Monocytes % (Manual) Nucleated RBC % Seg Neutrophils # 10.0 H Seg Neutrophils # Man Lymphocytes # (Manual) Monocytes # (Manual) PT INR APTT Fibrinogen Heparin Anti-Xa Level POC ABG pH POC ABG pCO2 POC ABG pO2 POC Potassium POC Chloride Sodium Potassium Chloride Carbon Dioxide POC BUN BUN Creatinine Glucose POC Glucose 128 H 119 H Calcium Magnesium AST Alkaline Phosphatase Lactate Dehydrogenase Total Creatine Kinase Total Protein Albumin Urine WBC (Auto) Crossmatch 07/13/16 07/13/16 07/13/16 07:30 11:41 13:45 WBC RBC Hgb POC Hgb Hct POC Hct MCH MCHC RDW Plt Count Lymph % (Auto) [place] % (Auto) Lymph # [place] # Baso # Seg Neutrophils % Seg Neuts % (Manual) Lymphocytes % (Manual) Monocytes % (Manual) Nucleated RBC % Seg Neutrophils # Seg Neutrophils # Man Lymphocytes # (Manual) Monocytes # (Manual) PT INR APTT Fibrinogen Heparin Anti-Xa Level POC ABG pH POC ABG pCO2 POC ABG pO2 POC Potassium POC Chloride Sodium Potassium Chloride Carbon Dioxide POC BUN BUN Creatinine Glucose POC Glucose 133 H 129 H Calcium Magnesium AST Alkaline Phosphatase Lactate Dehydrogenase Total Creatine Kinase Total Protein Albumin Urine WBC (Auto) Crossmatch See Detail 07/13/16 07/13/16 07/14/16 15:28 23:29 08:15 WBC RBC Hgb POC Hgb Hct POC Hct MCH MCHC RDW Plt Count Lymph % (Auto) [place] % (Auto) Lymph # [place] # Baso # Seg Neutrophils % Seg Neuts % (Manual) Lymphocytes % (Manual) Monocytes % (Manual) Nucleated RBC % Seg Neutrophils # Seg Neutrophils # Man Lymphocytes # (Manual) Monocytes # (Manual) PT INR APTT Fibrinogen Heparin Anti-Xa Level POC ABG pH POC ABG pCO2 POC ABG pO2 POC Potassium POC Chloride Sodium Potassium Chloride Carbon Dioxide POC BUN BUN Creatinine Glucose POC Glucose 119 H 113 H 130 H Calcium Magnesium AST Alkaline Phosphatase Lactate Dehydrogenase Total Creatine Kinase Total Protein Albumin Urine WBC (Auto) Crossmatch 07/14/16 07/14/16 07/14/16 08:30 12:12 17:00 WBC RBC Hgb POC Hgb Hct POC Hct MCH MCHC RDW Plt Count Lymph % (Auto) [place] % (Auto) Lymph # [place] # Baso # Seg Neutrophils % Seg Neuts % (Manual) Lymphocytes % (Manual) Monocytes % (Manual) Nucleated RBC % Seg Neutrophils # Seg Neutrophils # Man Lymphocytes # (Manual) Monocytes # (Manual) PT INR APTT Fibrinogen Heparin Anti-Xa Level POC ABG pH POC ABG pCO2 POC ABG pO2 POC Potassium POC Chloride Sodium 135 L Potassium Chloride Carbon Dioxide POC BUN BUN Creatinine Glucose 113 H POC Glucose 115 H 119 H Calcium 7.8 L Magnesium AST Alkaline Phosphatase Lactate Dehydrogenase Total Creatine Kinase Total Protein Albumin Urine WBC (Auto) Crossmatch 07/14/16 07/15/16 07/15/16 Unknown 04:15 04:15 WBC 13.9 H 15.3 H RBC Hgb POC Hgb Hct POC Hct MCH MCHC RDW Plt Count Lymph % (Auto) 9.9 L 9.3 L [place] % (Auto) Lymph # [place] # 0.9 H Baso # Seg Neutrophils % 83.8 H 83.9 H Seg Neuts % (Manual) Lymphocytes % (Manual) Monocytes % (Manual) Nucleated RBC % Seg Neutrophils # 11.7 H 12.9 H Seg Neutrophils # Man Lymphocytes # (Manual) Monocytes # (Manual) PT INR APTT Fibrinogen Heparin Anti-Xa Level POC ABG pH POC ABG pCO2 POC ABG pO2 POC Potassium POC Chloride Sodium 131 L Potassium Chloride 96.5 L Carbon Dioxide POC BUN BUN Creatinine 0.6 L Glucose 104 H POC Glucose Calcium 8.0 L Magnesium AST Alkaline Phosphatase Lactate Dehydrogenase Total Creatine Kinase Total Protein Albumin Urine WBC (Auto) Crossmatch 07/15/16 07/15/16 07/15/16 11:29 16:06 22:05 WBC RBC Hgb POC Hgb Hct POC Hct MCH MCHC RDW Plt Count Lymph % (Auto) [place] % (Auto) Lymph # [place] # Baso # Seg Neutrophils % Seg Neuts % (Manual) Lymphocytes % (Manual) Monocytes % (Manual) Nucleated RBC % Seg Neutrophils # Seg Neutrophils # Man Lymphocytes # (Manual) Monocytes # (Manual) PT INR APTT Fibrinogen Heparin Anti-Xa Level POC ABG pH POC ABG pCO2 POC ABG pO2 POC Potassium POC Chloride Sodium Potassium Chloride Carbon Dioxide POC BUN BUN Creatinine Glucose POC Glucose 114 H 165 H 127 H Calcium Magnesium AST Alkaline Phosphatase Lactate Dehydrogenase Total Creatine Kinase Total Protein Albumin Urine WBC (Auto) Crossmatch 07/16/16 07/16/16 07/16/16 07:36 07:36 07:39 WBC RBC 2.86 L Hgb 8.5 L POC Hgb Hct 25.0 L D POC Hct MCH MCHC RDW Plt Count Lymph % (Auto) [place] % (Auto) 8.5 H Lymph # [place] # 0.9 H Baso # Seg Neutrophils % 77.7 H Seg Neuts % (Manual) Lymphocytes % (Manual) Monocytes % (Manual) Nucleated RBC % Seg Neutrophils # 8.5 H Seg Neutrophils # Man Lymphocytes # (Manual) Monocytes # (Manual) PT INR APTT Fibrinogen Heparin Anti-Xa Level POC ABG pH POC ABG pCO2 POC ABG pO2 POC Potassium POC Chloride Sodium 136 L Potassium Chloride Carbon Dioxide POC BUN BUN Creatinine 0.5 L Glucose 133 H POC Glucose 137 H Calcium 8.0 L Magnesium AST Alkaline Phosphatase Lactate Dehydrogenase Total Creatine Kinase Total Protein Albumin Urine WBC (Auto) Crossmatch 07/16/16 07/16/16 07/17/16 11:43 22:10 05:00 WBC 11.6 H RBC 2.95 L Hgb 8.5 L POC Hgb Hct 25.7 L POC Hct MCH MCHC RDW Plt Count Lymph % (Auto) [place] % (Auto) 8.4 H Lymph # [place] # 1.0 H Baso # Seg Neutrophils % 76.2 H Seg Neuts % (Manual) Lymphocytes % (Manual) Monocytes % (Manual) Nucleated RBC % Seg Neutrophils # 8.9 H Seg Neutrophils # Man Lymphocytes # (Manual) Monocytes # (Manual) PT INR APTT Fibrinogen Heparin Anti-Xa Level POC ABG pH POC ABG pCO2 POC ABG pO2 POC Potassium POC Chloride Sodium Potassium Chloride Carbon Dioxide POC BUN BUN Creatinine Glucose POC Glucose 154 H 140 H Calcium Magnesium AST Alkaline Phosphatase Lactate Dehydrogenase Total Creatine Kinase Total Protein Albumin Urine WBC (Auto) Crossmatch 07/17/16 07/17/16 07/17/16 05:00 07:32 12:27 WBC RBC Hgb POC Hgb Hct POC Hct MCH MCHC RDW Plt Count Lymph % (Auto) [place] % (Auto) Lymph # [place] # Baso # Seg Neutrophils % Seg Neuts % (Manual) Lymphocytes % (Manual) Monocytes % (Manual) Nucleated RBC % Seg Neutrophils # Seg Neutrophils # Man Lymphocytes # (Manual) Monocytes # (Manual) PT INR APTT Fibrinogen Heparin Anti-Xa Level POC ABG pH POC ABG pCO2 POC ABG pO2 POC Potassium POC Chloride Sodium Potassium Chloride Carbon Dioxide POC BUN BUN Creatinine 0.6 L Glucose 115 H POC Glucose 135 H 140 H Calcium Magnesium 1.4 L AST Alkaline Phosphatase Lactate Dehydrogenase Total Creatine Kinase Total Protein Albumin Urine WBC (Auto) Crossmatch 07/17/16 07/18/16 07/18/16 16:23 05:00 07:31 WBC RBC 2.67 L Hgb 7.7 L POC Hgb Hct 23.2 L POC Hct MCH MCHC RDW Plt Count 447 H Lymph % (Auto) [place] % (Auto) 8.5 H Lymph # [place] # Baso # Seg Neutrophils % 73.1 H Seg Neuts % (Manual) Lymphocytes % (Manual) Monocytes % (Manual) Nucleated RBC % Seg Neutrophils # Seg Neutrophils # Man Lymphocytes # (Manual) Monocytes # (Manual) PT INR APTT Fibrinogen Heparin Anti-Xa Level POC ABG pH POC ABG pCO2 POC ABG pO2 POC Potassium POC Chloride Sodium Potassium Chloride Carbon Dioxide POC BUN BUN Creatinine Glucose POC Glucose 127 H 119 H Calcium Magnesium AST Alkaline Phosphatase Lactate Dehydrogenase Total Creatine Kinase Total Protein Albumin Urine WBC (Auto) Crossmatch 07/18/16 07/18/16 07/19/16 11:45 16:56 05:00 WBC RBC 2.74 L Hgb 7.9 L POC Hgb Hct 24.0 L POC Hct MCH MCHC RDW Plt Count 471 H Lymph % (Auto) [place] % (Auto) 9.3 H Lymph # [place] # Baso # Seg Neutrophils % Seg Neuts % (Manual) Lymphocytes % (Manual) Monocytes % (Manual) Nucleated RBC % Seg Neutrophils # Seg Neutrophils # Man Lymphocytes # (Manual) Monocytes # (Manual) PT INR APTT Fibrinogen Heparin Anti-Xa Level POC ABG pH POC ABG pCO2 POC ABG pO2 POC Potassium POC Chloride Sodium Potassium Chloride Carbon Dioxide POC BUN BUN Creatinine Glucose POC Glucose 139 H 116 H Calcium Magnesium AST Alkaline Phosphatase Lactate Dehydrogenase Total Creatine Kinase Total Protein Albumin Urine WBC (Auto) Crossmatch 07/19/16 07/19/16 07/19/16 08:08 12:17 16:09 WBC RBC Hgb POC Hgb Hct POC Hct MCH MCHC RDW Plt Count Lymph % (Auto) [place] % (Auto) Lymph # [place] # Baso # Seg Neutrophils % Seg Neuts % (Manual) Lymphocytes % (Manual) Monocytes % (Manual) Nucleated RBC % Seg Neutrophils # Seg Neutrophils # Man Lymphocytes # (Manual) Monocytes # (Manual) PT INR APTT Fibrinogen Heparin Anti-Xa Level POC ABG pH POC ABG pCO2 POC ABG pO2 POC Potassium POC Chloride Sodium Potassium Chloride Carbon Dioxide POC BUN BUN Creatinine Glucose POC Glucose 128 H 117 H 132 H Calcium Magnesium AST Alkaline Phosphatase Lactate Dehydrogenase Total Creatine Kinase Total Protein Albumin Urine WBC (Auto) Crossmatch 07/19/16 07/20/16 07/21/16 21:39 21:41 11:30 WBC RBC Hgb POC Hgb Hct POC Hct MCH MCHC RDW Plt Count Lymph % (Auto) [place] % (Auto) Lymph # [place] # Baso # Seg Neutrophils % Seg Neuts % (Manual) Lymphocytes % (Manual) Monocytes % (Manual) Nucleated RBC % Seg Neutrophils # Seg Neutrophils # Man Lymphocytes # (Manual) Monocytes # (Manual) PT INR APTT Fibrinogen Heparin Anti-Xa Level POC ABG pH POC ABG pCO2 POC ABG pO2 POC Potassium POC Chloride Sodium Potassium Chloride Carbon Dioxide POC BUN BUN Creatinine Glucose POC Glucose 115 H 117 H 114 H Calcium Magnesium AST Alkaline Phosphatase Lactate Dehydrogenase Total Creatine Kinase Total Protein Albumin Urine WBC (Auto) Crossmatch 07/21/16 16:57 WBC RBC Hgb POC Hgb Hct POC Hct MCH MCHC RDW Plt Count Lymph % (Auto) [place] % (Auto) Lymph # [place] # Baso # Seg Neutrophils % Seg Neuts % (Manual) Lymphocytes % (Manual) Monocytes % (Manual) Nucleated RBC % Seg Neutrophils # Seg Neutrophils # Man Lymphocytes # (Manual) Monocytes # (Manual) PT INR APTT Fibrinogen Heparin Anti-Xa Level POC ABG pH POC ABG pCO2 POC ABG pO2 POC Potassium POC Chloride Sodium Potassium Chloride Carbon Dioxide POC BUN BUN Creatinine Glucose POC Glucose 187 H Calcium Magnesium AST Alkaline Phosphatase Lactate Dehydrogenase Total Creatine Kinase Total Protein Albumin Urine WBC (Auto) Crossmatch Additional Studies: Ultrasound of chest reported small pleural effusion.
[2016-07-21] MEDS: D5W/0.45% NACL/KCL 20 MEQ 1,000 ML IV SCH (18:50)
[2016-07-22] MEDS: ZOSYN/NS 4.5GM/100ML 100 ML IV SCH ×3 (04:00→22:54)
[2016-07-22] MEDS: NOVOLOG SUB-Q SCH ×3 (07:38→16:30)
--- NOTE | 2016-07-22 09:21 | Progress Note ---
Assessment and Plan Current antibiotics: Zosyn 4.5 grams IV q8h 07/08 --> Previous antibiotics: Zosyn 2.25 g IV q8h 06/21-06/24 Cefazolin perioperatively ASSESSMENT: Cande Ge is a 55-year-old female with severe peripheral vascular disease, type 2 DM with peripheral neuropathy and hypertension who was admitted to [facility] as an outpatient with left lower extremity pain at rest for her cutaneous intervention which was unsuccessful and subsequently underwent left femoral endarterectomy and left iliac stenting and left femoral-popliteal bypass on 06/16 , urgent thrombectomies on 06/20 and right femoral endarterectomy with patch angioplasty on 07/03. She also had 2 cardiac arrests on 06/20 requiring resuscitation and intubation. She developed evidence of a retroperitoneal hematoma and ureteral obstruction and underwent bilateral ureteral stenting on 06/27. She has had a low-grade fever and leukocytosis. Problem list: 1. 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 Severe peripheral vascular disease -Unsuccessful attempt at percutaneous left lower extremity revascularization 06/13 -Left femoral endarterectomy, left iliac stenting and left femoral-popliteal bypass on 06/16 -Left lower extremity thrombectomies on 06/20 -Right femoral endarterectomy with patch angioplasty on 07/03 -Status post left AKA 07/15 -with dehisced wound. 3. Leukocytosis -Likely reactive -Patient has multiple reasons for leukocytosis including retroperitoneal hematoma , GI bleeding and multiple surgeries -Status post left groin infection and infected Dacron patch -Resolving 4. Low-grade fever -Resolved 5. Right groin wound infection -Purulent material seen at surgery 07/15/16 6. Retroperitoneal hematoma -As seen on CT scan 06/27 -Resolving 7. Bilateral hydroureteronephrosis -Status post bilateral ureteral stenting 06/27 8. Status post cardiopulmonary arrests X 2 -06/20 -Mechanical ventilatory support until 07/05 9. REJI -Creatinine peaked at 4.8 on 06/27 -Likely secondary to ATN -Resolved 10. Anemia -Likely multifactorial secondary to bleeding and chronic disease 10. Type 2 DM PLAN: 1. Continue Zosyn ( stop date 08/15/16) 2. Continue local wound care 3. Plan 4 weeks of post-op antibiotics. 4. Continued supportive measures and close observation Subjective Date of service: 07/22/16 Principal diagnosis: Infected vascular graft; s/p cardiopulmonary arrest Interval history: No complaints. Denies focal pain. No diarrhea. Objective - Exam Narrative Exam: Continues afebrile. GENERAL: Well-developed, well-nourished appearing female who appears somewhat older than her stated age and appears chronically ill but is in no acute distress. HEAD: Normocephalic. No lesions seen. EYES: Pupils are equal reactive to light and accommodation. There is no scleral icterus. Optic fundi are not examined. EARS: No evidence of external drainage THROAT: Oropharynx is normal with no evidence of oral candidiasis or pharyngitis. Patient is edentulous. NECK: Supple. No enlargement of the thyroid gland. No significant cervical lymphadenopathy. No jugular venous distention at 60. LUNGS: Clear with no adventitious sounds. HEART: Regular rate with occasional extra beat heard. S1 and S2 are normal. There are no murmurs, gallops, clicks or rubs heard. ABDOMEN: Soft and nontender. Liver and spleen are not palpably enlarged or tender. No palpable masses. Bowel sounds are normoactive. EXTREMITIES: No peripheral lymphadenopathy or clubbing. SKIN: Right chest Vas-Cath in place with no redness noted. Open left stump wound, left groin wound, right inguinal wounds with Wound-vac. No surrounding redness or foul odor. NEUROLOGIC: No gross lateralizing findings. - Constitutional Vitals: Vital Signs Temp Pulse Resp BP Pulse Ox 97.5 F L 102 H 20 107/66 95 07/22/16 07:30 07/22/16 07:30 07/22/16 07:30 07/22/16 07:30 07/22/16 07:52 Temperature -Last 24 Hours Temperature 97.5 F Temperature 99.3 F Temperature 99.2 F Temperature 98.6 F - Labs CBC & Chem 7: 07/19/16 05:00 07/17/16 05:00 Labs: Abnormal lab results 07/21/16 07/21/16 Range/Units 11:30 16:57 POC Glucose 114 H 187 H (70-105)
[2016-07-22] MEDS: K-DUR PO SCH (09:39)
[2016-07-22] MEDS: PLAVIX PO SCH (09:39)
[2016-07-22] MEDS: FERROUS SULFATE PO SCH (09:39)
[2016-07-22] MEDS: BABY ASPIRIN PO SCH (09:39)
[2016-07-22] MEDS: PROTONIX PO SCH (09:39)
[2016-07-22] MEDS: SENOKOT S PO SCH (09:40)
[2016-07-22] MEDS: TENORMIN PO SCH (09:40)
[2016-07-22] MEDS: MORPHINE IV PRN ×3 (09:44→17:50)
[2016-07-22] MEDS: THERMAZENE 50 GRAM TP SCH (10:04)
[2016-07-22] MEDS: D5W/0.45% NACL/KCL 20 MEQ 1,000 ML IV SCH (11:00)
[2016-07-22] MEDS: DURAGESIC TD SCH (11:01)
--- NOTE | 2016-07-22 11:09 | Progress Note ---
Assessment and Plan Patient status post multiple procedures with a complicated prolonged hospitalization. Her condition appears to be improving. Continue antibiotics per the infectious disease recommendations. She is currently using a triple- lumen catheter placed earlier in this hospitalization. This will need to be converted to a PICC line for her postoperative antibiotics. The IV team attempted PICC line placement previously and were unsuccessful. Scheduled the patient for PICC line placement by the interventional radiology service tomorrow. Discharge planning for acute rehabilitation and progress. - Patient Problems (1) Atherosclerosis of paimiut arteries of extremity with intermittent claudication Current Visit: Yes Status: Acute Subjective Date of service: 07/22/16 Principal diagnosis: Infected vascular graft; s/p cardiopulmonary arrest Interval history: Patient is awake and alert without specific complaints at present. Objective - Constitutional Vitals: Vital Signs - 12hr 07/22/16 07/22/16 07/22/16 00:00 07:30 07:52 Temperature 99.3 F 97.5 F L Pulse Rate [ 102 H From Monitor] Pulse Rate [ 108 H Left Radial] Respiratory 18 20 Rate Blood Pressure 136/72 107/66 [Left Arm] O2 Sat by Pulse 100 97 95 Oximetry General appearance: Present: no acute distress - EENT Eyes: EOM intact ENT: hearing intact - Neck Neck: supple, other (right internal jugular vein triple-lumen catheter in place without erythema or drainage appreciated) - Respiratory Respiratory effort: normal Extremities: no ischemia, normal temperature, abnormal (bilateral groin/distal amputation site incisions with wound VAC in place without appreciable erythema) - Neurologic Neurologic: other - Psychiatric Psychiatric: appropriate mood/affect, cooperative - Labs CBC & Chem 7: 07/19/16 05:00 07/17/16 05:00 Labs: Abnormal lab results 07/21/16 07/21/16 Range/Units 11:30 16:57 POC Glucose 114 H 187 H (70-105)
[2016-07-23] MEDS: SENOKOT S PO SCH ×3 (03:59→22:15)
[2016-07-23] MEDS: NOVOLOG SUB-Q SCH ×4 (04:00→22:00)
[2016-07-23] MEDS: ZOSYN/NS 4.5GM/100ML 100 ML IV SCH ×3 (04:01→21:15)
[2016-07-23] MEDS: MORPHINE IV PRN ×2 (08:45→19:00)
[2016-07-23] MEDS: FERROUS SULFATE PO SCH (10:00)
[2016-07-23] MEDS: PROTONIX PO SCH (10:00)
[2016-07-23] MEDS: PLAVIX PO SCH (10:00)
[2016-07-23] MEDS: THERMAZENE 50 GRAM TP SCH (10:00)
[2016-07-23] MEDS: BABY ASPIRIN PO SCH (10:00)
[2016-07-23] MEDS: K-DUR PO SCH (10:00)
--- NOTE | 2016-07-23 10:30 | Progress Note ---
Assessment and Plan Current antibiotics: Zosyn 4.5 grams IV q8h 07/08 --> Previous antibiotics: Zosyn 2.25 g IV q8h 06/21-06/24 Cefazolin perioperatively ASSESSMENT: Cande Ge is a 55-year-old female with severe peripheral vascular disease, type 2 DM with peripheral neuropathy and hypertension who was admitted to [facility] as an outpatient with left lower extremity pain at rest for her cutaneous intervention which was unsuccessful and subsequently underwent left femoral endarterectomy and left iliac stenting and left femoral-popliteal bypass on 06/16 , urgent thrombectomies on 06/20 and right femoral endarterectomy with patch angioplasty on 07/03. She also had 2 cardiac arrests on 06/20 requiring resuscitation and intubation. She developed evidence of a retroperitoneal hematoma and ureteral obstruction and underwent bilateral ureteral stenting on 06/27. She has had a low-grade fever and leukocytosis. Problem list: 1. 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 Severe peripheral vascular disease -Unsuccessful attempt at percutaneous left lower extremity revascularization 06/13 -Left femoral endarterectomy, left iliac stenting and left femoral-popliteal bypass on 06/16 -Left lower extremity thrombectomies on 06/20 -Right femoral endarterectomy with patch angioplasty on 07/03 -Status post left AKA 07/15 -with dehisced wound. 3. Leukocytosis -Likely reactive -Patient has multiple reasons for leukocytosis including retroperitoneal hematoma , GI bleeding and multiple surgeries -Status post left groin infection and infected Dacron patch -Resolving 4. Low-grade fever -Resolved 5. Right groin wound infection -Purulent material seen at surgery 07/15/16 6. Retroperitoneal hematoma -As seen on CT scan 06/27 -Resolving 7. Bilateral hydroureteronephrosis -Status post bilateral ureteral stenting 06/27 8. Status post cardiopulmonary arrests X 2 -06/20 -Mechanical ventilatory support until 07/05 9. REJI -Creatinine peaked at 4.8 on 06/27 -Likely secondary to ATN -Resolved 10. Anemia -Likely multifactorial secondary to bleeding and chronic disease 10. Type 2 DM PLAN: 1. Continue Zosyn ( stop date 08/15/16) 2. Continue local wound care 3. Plan 4 weeks of post-op antibiotics. 4. Continued supportive measures and close observation Subjective Date of service: 07/23/16 Principal diagnosis: Infected vascular graft; s/p cardiopulmonary arrest Interval history: No specific complaints. Denies diarrhea. Objective - Exam Narrative Exam: Continues afebrile. GENERAL: Well-developed, well-nourished appearing female who appears somewhat older than her stated age and appears chronically ill but is in no acute distress. HEAD: Normocephalic. No lesions seen. EYES: Pupils are equal reactive to light and accommodation. There is no scleral icterus. Optic fundi are not examined. EARS: No evidence of external drainage THROAT: Oropharynx is normal with no evidence of oral candidiasis or pharyngitis. Patient is edentulous. NECK: Supple. No enlargement of the thyroid gland. No significant cervical lymphadenopathy. No jugular venous distention at 60. LUNGS: Clear with no adventitious sounds. HEART: Regular rate with occasional extra beat heard. S1 and S2 are normal. There are no murmurs, gallops, clicks or rubs heard. ABDOMEN: Soft and nontender. Liver and spleen are not palpably enlarged or tender. No palpable masses. Bowel sounds are normoactive. EXTREMITIES: No peripheral lymphadenopathy or clubbing. SKIN: Right chest Vas-Cath in place with no redness noted. Open left stump wound, left groin wound, right inguinal wounds with Wound-vac. No surrounding redness or foul odor. NEUROLOGIC: No gross lateralizing findings. - Constitutional Vitals: Vital Signs Temp Pulse Resp BP Pulse Ox 98.2 F 100 H 18 99/64 100 07/23/16 07:30 07/23/16 07:30 07/23/16 07:30 07/23/16 07:30 07/23/16 07:30 Temperature -Last 24 Hours Temperature 98.2 F Temperature 98.7 F Temperature 99.2 F Temperature 99.3 F - Labs CBC & Chem 7: 07/19/16 05:00 07/17/16 05:00 Labs: Abnormal lab results 01/10/17 Range/Units 07:25 POC Glucose 108 H (70-105)
[2016-07-23] MEDS ORDERED: HEPARIN/NS 5000 UNIT/500ML(CATH LAB) 500 ML IR ONE (11:39)
[2016-07-23] MEDS ORDERED: HEPARIN 10,000 UNITS/10 ML ONE (11:39)
[2016-07-23] MEDS ORDERED: ANCEF/STERILE WATER 2 GM/20 ML 20 ML IV ONE (11:40)
[2016-07-23] MEDS ORDERED: NACL 0.9% 250ML 250 ML ONE (11:49)
[2016-07-23] MEDS: SUBLIMAZE ONE ×3 (11:58→12:20)
[2016-07-23] MEDS: VERSED ONE ×3 (11:59→12:30)
[2016-07-23] MEDS: XYLOCAINE 1%/ EPI 1:100,000 INFILTRATI ONE ×2 (11:59→12:13)
--- NOTE | 2016-07-23 12:42 | Operative Report ---
Operative Report Operative Report: EXAM: 1. Ultrasound-guided puncture of the left internal jugular vein 2. Fluoroscopic-guided placement of a left internal jugular tunneled non- cuffed smallbore dual-lumen catheter. DATE: 07/23/16 INDICATION: 55-year-old female with multiple medical problems including infected left groin bypass graft requiring explantation and prolonged antibiotics. MEDICATIONS: Please see nursing report for full details. DEVICES: 5 Lao dual-lumen power PICC catheter DIETARY AIDE: LUI MCCABE MD CONTRAST: None PROCEDURE: The risks, benefits, and alternatives were discussed and informed consent was obtained. The patient was transported to the angiography suite in satisfactory/ stable condition and was transported onto the angiography table. The patient's left internal jugular vein was assessed with ultrasound and determined to be patent prior to procedure. The patient was prepped and draped in a sterile fashion. The puncture site was anesthetized. Under sonographic guidance, the left internal jugular vein was punctured with a 21-gauge micropuncture needle and a 0.018 inch wire was advanced into the inferior vena cava. A suitable exit site was identified on the patient's chest inferior and lateral to the venotomy. The site was anesthetized with local anesthetic and the track was anesthetized. Dermatotomy was made. The 5 Lao dual-lumen smallbore catheter was tunneled between the dermatotomy to the venotomy with the assistance of a metal tunneler. Over 0.018 inch wire, the transitional dilator was exchanged for a 5 Lao peel -away sheath. The wire was used to edwina intravascular distance and removed. The catheter was cut to appropriate size. The catheter was advanced through the peel-away sheath and positioned centrally under fluoroscopic guidance. The peel-away sheath was removed. 4-0 Vicryl suture was used to close the venotomy and Dermabond was then applied. Two 3-0 Ethilon suture was used to secure the catheter at the dermatotomy. The catheter was charged with heparinized saline. Sterile dressings applied. The patient's right internal jugular triple-lumen catheter was then evaluated. Sutures were cut. Pressure was held until hemostasis was achieved. Sterile dressing applied. The patient was tachycardic at the start of the procedure with a heart rate of 120s to 130s. At the end of the procedure her heart rate was in the 140s to 150s. The procedure had no immediate postprocedure complication. Patient was provided her atenolol, a scheduled medication, prior to procedure. This will be provided at this time. The patient was transferred from the angiography suite back to the floor in stable condition. FINDINGS: 1. Excellent flow was obtained through the dual lumen smallbore tunneled catheter. 2. The catheter tip is in the right atrium. IMPRESSION: 1. Successful ultrasound and fluoroscopically guided placement of a left internal jugular tunneled non-cuffed dual-lumen catheter. 2. Successful removal of right internal jugular non-tunneled non-cuffed triple- lumen catheter.
[2016-07-23] MEDS: TENORMIN PO SCH (12:45)
--- NOTE | 2016-07-23 13:51 | Event Note ---
Date: 07/23/16 Pt eval'd post op. She is without complaint, and HR has decreased to 110.
--- NOTE | 2016-07-23 20:46 | Progress Note ---
Assessment and Plan Patient S/P central line placement. Patient resting on room air. O2 satuaration 99%.Patient awake and oriented.No complaint of chest pain or shortness of breath. - Patient Problems (1) Acute respiratory failure Current Visit: Yes Status: Acute Plan to address problem: Patient presently undergoing spontaneous breathing trials. Pressure support 10 cm H20 and FIO2 30%. 06/27/16 Respiratory status improved. No acute respiratory distress. On room air . O2 satuaration 100%. 06/30/16 Patient is on room air. No respiratory distress. O2 satuaration 97%. 07/04/16 Patient presently on pressure support 10 cm H20, FIO2 30% Patient tolerating good. Obtaining blood gases, If they are may extubate her. 07/05/16 Patient extubated. Presently on room air , tolerating good. O2 satuaration 100%. Incentive spirometry. xopenex aerosol treatments q 8 hours prn for shortness of breath and wheezing. 07/21/16 Patient presently resting on 2 litres O2. O2 satuaration 100%. 07/22/16 Patient resting on room air. O2 satuaration 95%. No acute respiratory distress. 07/23/16 Patient S/P Central line placement. No complaint of chest pain or shortness of breath O2 satuaration 99% on room air. (2) Cardiopulmonary arrest with successful resuscitation Current Visit: Yes Status: Acute Plan to address problem: Patient resuciated . Patient is on mechanical ventilation and vasopressors. 06/27/16 Improved. alert,awake following commands. !08/31/15 Patient alert,awake and following commands. 07/04/16 Patient alert, awake following commands. 07/06/16 Patient alert,awake and sitting up in chair.Following commands. O2 satuaration 100% on room air. 07/21/16 Patient alert, awake.Patient resting on 2 litres O2. O2 satuaration 100%. 07/22/16 Patient alert, awake. Resting on room air. O2 satuaration 100%. 07/23/16 Patient alert,awake. resting on room air, O2 satuaration 99%. (3) Left lower lobe pneumonia Current Visit: Yes Status: Acute (4) Atherosclerosis of [place] arteries of extremity with intermittent claudication Current Visit: Yes Status: Acute Plan to address problem: Management as per vascular surgery. (5) Metabolic acidosis Current Visit: Yes Status: Acute Plan to address problem: Obtaining Lactate level. Given I/V Bicarb. 06/27/16 Improving. 06/30/16 Metabolic acidosis improved. (6) ATN (acute tubular necrosis) Current Visit: Yes Status: Acute Plan to address problem: Nephrology consulted. Management as per nephrology. Subjective Date of service: 07/23/16 Principal diagnosis: Infected vascular graft; s/p cardiopulmonary arrest Interval history: Patient S/P central line placement.Patient resting on room air.. O2 satuaration 99%.Patient awake and oriented.No complaint of chest pain or shortness of breath. Objective Vital Signs - 12hr 07/23/16 07/23/16 07/23/16 11:24 12:45 13:00 Temperature 99.4 F 98.2 F Pulse Rate 150 H Pulse Rate [ 111 H Apical] Pulse Rate [ 107 H From Monitor] Respiratory 22 20 Rate Blood Pressure 153/82 Blood Pressure 145/74 123/69 [Left Arm] O2 Sat by Pulse 100 100 Oximetry 07/23/16 16:30 Temperature 99.7 F H Pulse Rate Pulse Rate [ 110 H Apical] Pulse Rate [ From Monitor] Respiratory 20 Rate Blood Pressure Blood Pressure 119/59 [Left Arm] O2 Sat by Pulse 99 Oximetry Constitutional: no acute distress, alert Eyes: non-icteric ENT: oropharynx moist Neck: supple, no lymphadenopathy Effort: normal Ascultation: Left: diminished breath sounds (base), Bilateral: rhonchi ( posterior bases) Cardiovascular: regular rate and rhythm Gastrointestinal: normoactive bowel sounds, soft, non-tender, non-distended Integumentary: other (weak LLExt) Extremities: other (s/p left AKA) Neurologic: normal mental status, non-focal exam, pupils equal and round Psychiatric: mood appropriate, affect normal CBC and BMP: 07/19/16 05:00 07/17/16 05:00 ABG, PT/INR, D-dimer: ABG POC ABG pH 7.436 (7.35-7.45) 07/04/16 16:49 POC ABG pCO2 31.1 (35-45) L 07/04/16 16:49 POC ABG pO2 110 (80-105) H 07/04/16 16:49 POC ABG HCO3 20.9 07/04/16 16:49 POC ABG Total CO2 22 07/04/16 16:49 POC ABG O2 Sat 99 07/04/16 16:49 PT/INR, D-dimer PT 19.9 Sec. (12.2-14.9) H 06/26/16 22:57 INR 1.69 (0.87-1.13) H 06/26/16 22:57 Abnormal lab findings: Abnormal Labs 06/13/16 06/13/16 06/13/16 09:45 09:45 09:45 WBC RBC Hgb POC Hgb Hct POC Hct MCH 25 L MCHC RDW 15.8 H Plt Count Lymph % (Auto) [place] % (Auto) 8.1 H Lymph # [place] # Baso # Seg Neutrophils % Seg Neuts % (Manual) Lymphocytes % (Manual) Monocytes % (Manual) Nucleated RBC % Seg Neutrophils # Seg Neutrophils # Man Lymphocytes # (Manual) Monocytes # (Manual) PT INR APTT Fibrinogen 522 H Heparin Anti-Xa Level POC ABG pH POC ABG pCO2 POC ABG pO2 POC Potassium POC Chloride Sodium Potassium Chloride Carbon Dioxide POC BUN BUN Creatinine Glucose POC Glucose Calcium 10.3 H Magnesium AST Alkaline Phosphatase Lactate Dehydrogenase Total Creatine Kinase Total Protein Albumin Urine WBC (Auto) Crossmatch 06/13/16 06/13/16 06/13/16 09:45 20:14 20:15 WBC RBC Hgb POC Hgb Hct POC Hct MCH MCHC RDW Plt Count Lymph % (Auto) [place] % (Auto) Lymph # [place] # Baso # Seg Neutrophils % Seg Neuts % (Manual) Lymphocytes % (Manual) Monocytes % (Manual) Nucleated RBC % Seg Neutrophils # Seg Neutrophils # Man Lymphocytes # (Manual) Monocytes # (Manual) PT INR APTT 103.8 H* Fibrinogen Heparin Anti-Xa Level 0.72 H POC ABG pH POC ABG pCO2 POC ABG pO2 POC Potassium POC Chloride Sodium Potassium Chloride Carbon Dioxide POC BUN BUN Creatinine Glucose POC Glucose Calcium Magnesium AST Alkaline Phosphatase Lactate Dehydrogenase Total Creatine Kinase Total Protein Albumin Urine WBC (Auto) Crossmatch See Detail 06/14/16 06/14/16 06/14/16 07:44 10:18 19:09 WBC RBC Hgb POC Hgb Hct POC Hct MCH 26 L MCHC RDW 15.8 H Plt Count Lymph % (Auto) [place] % (Auto) 9.1 H Lymph # [place] # Baso # Seg Neutrophils % Seg Neuts % (Manual) Lymphocytes % (Manual) Monocytes % (Manual) Nucleated RBC % Seg Neutrophils # Seg Neutrophils # Man Lymphocytes # (Manual) Monocytes # (Manual) PT INR APTT Fibrinogen Heparin Anti-Xa Level 0.76 H POC ABG pH POC ABG pCO2 POC ABG pO2 POC Potassium POC Chloride Sodium Potassium Chloride Carbon Dioxide POC BUN BUN Creatinine Glucose POC Glucose 106 H Calcium Magnesium AST Alkaline Phosphatase Lactate Dehydrogenase Total Creatine Kinase Total Protein Albumin Urine WBC (Auto) Crossmatch 06/15/16 06/15/16 06/15/16 04:43 04:43 22:49 WBC RBC Hgb 9.2 L POC Hgb Hct 28.4 L POC Hct MCH MCHC RDW Plt Count Lymph % (Auto) [place] % (Auto) Lymph # [place] # Baso # Seg Neutrophils % Seg Neuts % (Manual) Lymphocytes % (Manual) Monocytes % (Manual) Nucleated RBC % Seg Neutrophils # Seg Neutrophils # Man Lymphocytes # (Manual) Monocytes # (Manual) PT INR APTT Fibrinogen Heparin Anti-Xa Level 0.85 H POC ABG pH POC ABG pCO2 POC ABG pO2 POC Potassium POC Chloride Sodium Potassium Chloride Carbon Dioxide POC BUN BUN Creatinine Glucose POC Glucose 134 H Calcium Magnesium AST Alkaline Phosphatase Lactate Dehydrogenase Total Creatine Kinase Total Protein Albumin Urine WBC (Auto) Crossmatch 06/16/16 06/16/16 06/16/16 08:55 08:55 14:21 WBC RBC Hgb POC Hgb 5.8 L Hct POC Hct 17 L MCH MCHC RDW Plt Count Lymph % (Auto) [place] % (Auto) Lymph # [place] # Baso # Seg Neutrophils % Seg Neuts % (Manual) Lymphocytes % (Manual) Monocytes % (Manual) Nucleated RBC % Seg Neutrophils # Seg Neutrophils # Man Lymphocytes # (Manual) Monocytes # (Manual) PT INR APTT 20.0 L Fibrinogen Heparin Anti-Xa Level POC ABG pH POC ABG pCO2 POC ABG pO2 POC Potassium 2.9 L POC Chloride Sodium Potassium Chloride Carbon Dioxide POC BUN 7 L BUN Creatinine Glucose POC Glucose 249 H Calcium Magnesium AST Alkaline Phosphatase Lactate Dehydrogenase Total Creatine Kinase Total Protein Albumin Urine WBC (Auto) Crossmatch See Detail 06/16/16 06/16/16 06/16/16 16:55 17:41 17:48 WBC RBC Hgb POC Hgb 8.8 L Hct POC Hct 26 L < 15 L MCH MCHC RDW Plt Count Lymph % (Auto) [place] % (Auto) Lymph # [place] # Baso # Seg Neutrophils % Seg Neuts % (Manual) Lymphocytes % (Manual) Monocytes % (Manual) Nucleated RBC % Seg Neutrophils # Seg Neutrophils # Man Lymphocytes # (Manual) Monocytes # (Manual) PT INR APTT Fibrinogen Heparin Anti-Xa Level POC ABG pH 7.031 L POC ABG pCO2 POC ABG pO2 475 H POC Potassium 3.2 L POC Chloride 112 H 114 H Sodium Potassium Chloride Carbon Dioxide POC BUN 7 L 7 L BUN Creatinine Glucose POC Glucose 203 H 291 H Calcium Magnesium AST Alkaline Phosphatase Lactate Dehydrogenase Total Creatine Kinase Total Protein Albumin Urine WBC (Auto) Crossmatch 06/16/16 06/16/16 06/16/16 18:07 19:09 20:10 WBC 15.8 H RBC Hgb POC Hgb 6.5 L Hct POC Hct 19 L MCH MCHC RDW Plt Count 38 L Lymph % (Auto) 5.9 L [place] % (Auto) 9.3 H Lymph # 0.9 L [place] # 1.5 H Baso # Seg Neutrophils % 84.6 H Seg Neuts % (Manual) Lymphocytes % (Manual) Monocytes % (Manual) Nucleated RBC % Seg Neutrophils # 13.3 H Seg Neutrophils # Man Lymphocytes # (Manual) Monocytes # (Manual) PT INR APTT Fibrinogen Heparin Anti-Xa Level POC ABG pH POC ABG pCO2 POC ABG pO2 POC Potassium POC Chloride 113 H Sodium Potassium Chloride Carbon Dioxide POC BUN 7 L BUN Creatinine Glucose POC Glucose 263 H 231 H Calcium Magnesium AST Alkaline Phosphatase Lactate Dehydrogenase Total Creatine Kinase Total Protein Albumin Urine WBC (Auto) Crossmatch 06/16/16 06/16/16 06/16/16 20:10 20:18 21:10 WBC RBC Hgb POC Hgb Hct POC Hct MCH MCHC RDW Plt Count Lymph % (Auto) [place] % (Auto) Lymph # [place] # Baso # Seg Neutrophils % Seg Neuts % (Manual) Lymphocytes % (Manual) Monocytes % (Manual) Nucleated RBC % Seg Neutrophils # Seg Neutrophils # Man Lymphocytes # (Manual) Monocytes # (Manual) PT INR APTT Fibrinogen Heparin Anti-Xa Level POC ABG pH 7.236 L 7.280 L POC ABG pCO2 POC ABG pO2 139 H 145 H POC Potassium POC Chloride Sodium Potassium 3.4 L Chloride 114.5 H Carbon Dioxide 17 L D POC BUN BUN Creatinine Glucose 188 H POC Glucose Calcium 6.1 L D Magnesium AST Alkaline Phosphatase Lactate Dehydrogenase Total Creatine Kinase Total Protein Albumin Urine WBC (Auto) Crossmatch 06/16/16 06/17/16 06/17/16 22:53 04:48 05:35 WBC RBC Hgb POC Hgb Hct POC Hct MCH MCHC RDW Plt Count Lymph % (Auto) [place] % (Auto) Lymph # [place] # Baso # Seg Neutrophils % Seg Neuts % (Manual) Lymphocytes % (Manual) Monocytes % (Manual) Nucleated RBC % Seg Neutrophils # Seg Neutrophils # Man Lymphocytes # (Manual) Monocytes # (Manual) PT INR APTT Fibrinogen Heparin Anti-Xa Level POC ABG pH POC ABG pCO2 33.9 L 22.2 L POC ABG pO2 152 H 154 H POC Potassium POC Chloride Sodium 150 H Potassium 3.4 L Chloride 114.2 H Carbon Dioxide 16 L POC BUN BUN Creatinine Glucose 221 H POC Glucose Calcium 7.6 L D Magnesium AST Alkaline Phosphatase Lactate Dehydrogenase Total Creatine Kinase Total Protein Albumin Urine WBC (Auto) Crossmatch 06/17/16 06/18/16 06/18/16 09:22 07:26 08:25 WBC 20.3 H RBC 3.41 L Hgb 9.9 L POC Hgb Hct 29.7 L POC Hct MCH MCHC RDW Plt Count Lymph % (Auto) [place] % (Auto) Lymph # [place] # Baso # Seg Neutrophils % Seg Neuts % (Manual) 81.0 H Lymphocytes % (Manual) 6.0 L Monocytes % (Manual) 12.0 H Nucleated RBC % Seg Neutrophils # Seg Neutrophils # Man 16.4 H Lymphocytes # (Manual) Monocytes # (Manual) 2.4 H PT INR APTT Fibrinogen Heparin Anti-Xa Level POC ABG pH POC ABG pCO2 POC ABG pO2 POC Potassium POC Chloride Sodium Potassium 3.1 L Chloride Carbon Dioxide POC BUN BUN Creatinine Glucose 136 H POC Glucose 141 H Calcium 7.5 L Magnesium AST Alkaline Phosphatase Lactate Dehydrogenase Total Creatine Kinase Total Protein Albumin Urine WBC (Auto) Crossmatch 06/18/16 06/18/16 06/18/16 08:25 11:09 19:40 WBC RBC Hgb 6.5 L D POC Hgb Hct 19.3 L* D POC Hct MCH MCHC RDW Plt Count 131 L Lymph % (Auto) [place] % (Auto) Lymph # [place] # Baso # Seg Neutrophils % Seg Neuts % (Manual) Lymphocytes % (Manual) Monocytes % (Manual) Nucleated RBC % Seg Neutrophils # Seg Neutrophils # Man Lymphocytes # (Manual) Monocytes # (Manual) PT INR APTT Fibrinogen Heparin Anti-Xa Level POC ABG pH 7.490 H POC ABG pCO2 POC ABG pO2 131 H POC Potassium POC Chloride Sodium Potassium Chloride Carbon Dioxide POC BUN BUN Creatinine Glucose POC Glucose 125 H Calcium Magnesium AST Alkaline Phosphatase Lactate Dehydrogenase Total Creatine Kinase Total Protein Albumin Urine WBC (Auto) Crossmatch 06/18/16 06/19/16 06/19/16 21:10 07:07 07:28 WBC 13.6 H RBC 2.17 L Hgb 6.5 L POC Hgb Hct 18.8 L* POC Hct MCH MCHC 35 H RDW Plt Count 131 L Lymph % (Auto) 10.1 L [place] % (Auto) 9.3 H Lymph # [place] # 1.3 H Baso # Seg Neutrophils % 79.7 H Seg Neuts % (Manual) Lymphocytes % (Manual) Monocytes % (Manual) Nucleated RBC % Seg Neutrophils # 10.8 H Seg Neutrophils # Man Lymphocytes # (Manual) Monocytes # (Manual) PT INR APTT Fibrinogen Heparin Anti-Xa Level 0.75 H POC ABG pH POC ABG pCO2 POC ABG pO2 POC Potassium POC Chloride Sodium Potassium 3.5 L Chloride Carbon Dioxide POC BUN BUN Creatinine Glucose 104 H POC Glucose Calcium 7.6 L Magnesium 1.4 L AST Alkaline Phosphatase Lactate Dehydrogenase Total Creatine Kinase Total Protein Albumin Urine WBC (Auto) Crossmatch 06/20/16 06/20/16 06/20/16 04:15 18:15 18:15 WBC 16.6 H RBC 1.19 L Hgb 9.2 L 3.5 L* D POC Hgb Hct 27.5 L D 11.0 L* D POC Hct MCH MCHC RDW Plt Count 138 L Lymph % (Auto) [place] % (Auto) Lymph # [place] # Baso # Seg Neutrophils % Seg Neuts % (Manual) Lymphocytes % (Manual) Monocytes % (Manual) Nucleated RBC % Seg Neutrophils # Seg Neutrophils # Man Lymphocytes # (Manual) Monocytes # (Manual) PT INR APTT Fibrinogen Heparin Anti-Xa Level POC ABG pH POC ABG pCO2 POC ABG pO2 POC Potassium POC Chloride Sodium 146 H Potassium Chloride Carbon Dioxide 14 L D POC BUN BUN Creatinine Glucose 31 L* POC Glucose Calcium 6.7 L Magnesium AST Alkaline Phosphatase Lactate Dehydrogenase Total Creatine Kinase Total Protein Albumin Urine WBC (Auto) Crossmatch 06/20/16 06/20/16 06/20/16 18:15 19:33 19:36 WBC RBC Hgb POC Hgb Hct POC Hct MCH MCHC RDW Plt Count Lymph % (Auto) [place] % (Auto) Lymph # [place] # Baso # Seg Neutrophils % Seg Neuts % (Manual) Lymphocytes % (Manual) Monocytes % (Manual) Nucleated RBC % Seg Neutrophils # Seg Neutrophils # Man Lymphocytes # (Manual) Monocytes # (Manual) PT INR APTT Fibrinogen Heparin Anti-Xa Level POC ABG pH POC ABG pCO2 26.3 L POC ABG pO2 394 H POC Potassium POC Chloride Sodium Potassium Chloride Carbon Dioxide POC BUN BUN Creatinine Glucose POC Glucose 212 H Calcium Magnesium AST Alkaline Phosphatase Lactate Dehydrogenase Total Creatine Kinase Total Protein Albumin Urine WBC (Auto) Crossmatch See Detail 06/20/16 06/20/16 06/21/16 22:01 23:00 00:35 WBC RBC Hgb POC Hgb Hct POC Hct MCH MCHC RDW Plt Count Lymph % (Auto) [place] % (Auto) Lymph # [place] # Baso # Seg Neutrophils % Seg Neuts % (Manual) Lymphocytes % (Manual) Monocytes % (Manual) Nucleated RBC % Seg Neutrophils # Seg Neutrophils # Man Lymphocytes # (Manual) Monocytes # (Manual) PT 21.3 H INR 1.85 H APTT 48.4 H Fibrinogen Heparin Anti-Xa Level POC ABG pH POC ABG pCO2 POC ABG pO2 POC Potassium POC Chloride Sodium Potassium Chloride Carbon Dioxide POC BUN BUN Creatinine Glucose POC Glucose 149 H 147 H Calcium Magnesium AST Alkaline Phosphatase Lactate Dehydrogenase Total Creatine Kinase Total Protein Albumin Urine WBC (Auto) Crossmatch 06/21/16 06/21/16 06/21/16 04:30 04:30 06:01 WBC 21.7 H RBC 3.58 L Hgb POC Hgb Hct POC Hct MCH MCHC 35 H RDW Plt Count 116 L Lymph % (Auto) [place] % (Auto) Lymph # [place] # Baso # Seg Neutrophils % Seg Neuts % (Manual) Lymphocytes % (Manual) 8.0 L Monocytes % (Manual) Nucleated RBC % 3.0 H Seg Neutrophils # Seg Neutrophils # Man 13.7 H Lymphocytes # (Manual) Monocytes # (Manual) 1.5 H PT INR APTT Fibrinogen Heparin Anti-Xa Level POC ABG pH 7.541 H POC ABG pCO2 21.1 L POC ABG pO2 108 H POC Potassium POC Chloride Sodium Potassium 3.0 L Chloride 110.3 H Carbon Dioxide 18 L POC BUN BUN 18 H Creatinine Glucose 141 H POC Glucose Calcium 6.4 L Magnesium AST Alkaline Phosphatase Lactate Dehydrogenase Total Creatine Kinase Total Protein Albumin Urine WBC (Auto) Crossmatch 06/21/16 06/21/16 06/21/16 07:00 10:02 17:51 WBC RBC Hgb 8.3 L POC Hgb Hct 24.7 L D POC Hct MCH MCHC RDW Plt Count Lymph % (Auto) [place] % (Auto) Lymph # [place] # Baso # Seg Neutrophils % Seg Neuts % (Manual) Lymphocytes % (Manual) Monocytes % (Manual) Nucleated RBC % Seg Neutrophils # Seg Neutrophils # Man Lymphocytes # (Manual) Monocytes # (Manual) PT INR APTT Fibrinogen Heparin Anti-Xa Level POC ABG pH POC ABG pCO2 POC ABG pO2 POC Potassium POC Chloride Sodium Potassium Chloride Carbon Dioxide POC BUN BUN Creatinine Glucose POC Glucose 132 H 106 H Calcium Magnesium AST Alkaline Phosphatase Lactate Dehydrogenase Total Creatine Kinase Total Protein Albumin Urine WBC (Auto) Crossmatch 06/22/16 06/22/16 06/22/16 05:00 05:00 06:40 WBC 20.6 H RBC 3.54 L Hgb POC Hgb Hct POC Hct MCH MCHC RDW Plt Count 129 L Lymph % (Auto) [place] % (Auto) Lymph # [place] # Baso # Seg Neutrophils % Seg Neuts % (Manual) 87.0 H Lymphocytes % (Manual) 4.0 L Monocytes % (Manual) Nucleated RBC % 4.0 H Seg Neutrophils # Seg Neutrophils # Man 17.9 H Lymphocytes # (Manual) 0.8 L Monocytes # (Manual) 1.2 H PT INR APTT Fibrinogen Heparin Anti-Xa Level POC ABG pH POC ABG pCO2 21.9 L POC ABG pO2 118 H POC Potassium POC Chloride Sodium Potassium Chloride 109.9 H Carbon Dioxide 15 L POC BUN BUN 26 H Creatinine 2.2 H D Glucose POC Glucose Calcium 6.3 L Magnesium AST Alkaline Phosphatase Lactate Dehydrogenase Total Creatine Kinase Total Protein Albumin Urine WBC (Auto) Crossmatch 06/22/16 06/22/16 06/22/16 09:15 09:15 23:17 WBC RBC Hgb 9.1 L POC Hgb Hct 26.9 L POC Hct MCH MCHC RDW Plt Count 116 L Lymph % (Auto) [place] % (Auto) Lymph # [place] # Baso # Seg Neutrophils % Seg Neuts % (Manual) Lymphocytes % (Manual) Monocytes % (Manual) Nucleated RBC % Seg Neutrophils # Seg Neutrophils # Man Lymphocytes # (Manual) Monocytes # (Manual) PT 15.8 H INR 1.27 H APTT Fibrinogen Heparin Anti-Xa Level POC ABG pH POC ABG pCO2 POC ABG pO2 POC Potassium POC Chloride Sodium Potassium Chloride Carbon Dioxide POC BUN BUN Creatinine Glucose POC Glucose 134 H Calcium Magnesium AST Alkaline Phosphatase Lactate Dehydrogenase Total Creatine Kinase Total Protein Albumin Urine WBC (Auto) Crossmatch 06/23/16 06/23/16 06/23/16 05:43 05:43 09:44 WBC 13.8 H RBC 2.70 L Hgb 8.1 L POC Hgb Hct 24.2 L POC Hct MCH MCHC RDW Plt Count 93 L Lymph % (Auto) 6.2 L [place] % (Auto) Lymph # 0.9 L [place] # Baso # Seg Neutrophils % 89.2 H Seg Neuts % (Manual) Lymphocytes % (Manual) Monocytes % (Manual) Nucleated RBC % Seg Neutrophils # 12.3 H Seg Neutrophils # Man Lymphocytes # (Manual) Monocytes # (Manual) PT INR APTT Fibrinogen Heparin Anti-Xa Level POC ABG pH 7.593 H POC ABG pCO2 26.8 L POC ABG pO2 141 H POC Potassium POC Chloride Sodium 146 H Potassium Chloride Carbon Dioxide POC BUN BUN 32 H Creatinine 2.6 H Glucose 142 H POC Glucose Calcium 7.0 L Magnesium AST Alkaline Phosphatase Lactate Dehydrogenase Total Creatine Kinase Total Protein Albumin Urine WBC (Auto) Crossmatch 06/23/16 06/23/16 06/23/16 11:23 17:42 23:32 WBC RBC Hgb POC Hgb Hct POC Hct MCH MCHC RDW Plt Count Lymph % (Auto) [place] % (Auto) Lymph # [place] # Baso # Seg Neutrophils % Seg Neuts % (Manual) Lymphocytes % (Manual) Monocytes % (Manual) Nucleated RBC % Seg Neutrophils # Seg Neutrophils # Man Lymphocytes # (Manual) Monocytes # (Manual) PT INR APTT Fibrinogen Heparin Anti-Xa Level POC ABG pH POC ABG pCO2 POC ABG pO2 POC Potassium POC Chloride Sodium Potassium Chloride Carbon Dioxide POC BUN BUN Creatinine Glucose POC Glucose 138 H 133 H 111 H Calcium Magnesium AST Alkaline Phosphatase Lactate Dehydrogenase Total Creatine Kinase Total Protein Albumin Urine WBC (Auto) Crossmatch 06/24/16 06/24/16 06/24/16 06:27 08:10 08:10 WBC 16.6 H RBC 2.91 L Hgb 8.9 L POC Hgb Hct 26.4 L POC Hct MCH MCHC RDW 15.6 H Plt Count 115 L Lymph % (Auto) 4.6 L [place] % (Auto) Lymph # 0.8 L [place] # 1.0 H Baso # Seg Neutrophils % 89.2 H Seg Neuts % (Manual) Lymphocytes % (Manual) Monocytes % (Manual) Nucleated RBC % Seg Neutrophils # 14.9 H Seg Neutrophils # Man Lymphocytes # (Manual) Monocytes # (Manual) PT INR APTT Fibrinogen Heparin Anti-Xa Level POC ABG pH POC ABG pCO2 POC ABG pO2 POC Potassium POC Chloride Sodium 146 H Potassium Chloride Carbon Dioxide POC BUN BUN 37 H Creatinine 2.9 H Glucose POC Glucose 109 H Calcium 7.5 L Magnesium AST Alkaline Phosphatase Lactate Dehydrogenase Total Creatine Kinase Total Protein Albumin Urine WBC (Auto) Crossmatch 06/24/16 06/24/16 06/24/16 12:05 17:57 22:13 WBC RBC Hgb POC Hgb Hct POC Hct MCH MCHC RDW Plt Count Lymph % (Auto) [place] % (Auto) Lymph # [place] # Baso # Seg Neutrophils % Seg Neuts % (Manual) Lymphocytes % (Manual) Monocytes % (Manual) Nucleated RBC % Seg Neutrophils # Seg Neutrophils # Man Lymphocytes # (Manual) Monocytes # (Manual) PT INR APTT Fibrinogen Heparin Anti-Xa Level POC ABG pH POC ABG pCO2 POC ABG pO2 POC Potassium POC Chloride Sodium Potassium Chloride Carbon Dioxide POC BUN BUN Creatinine Glucose POC Glucose 117 H 124 H 116 H Calcium Magnesium AST Alkaline Phosphatase Lactate Dehydrogenase Total Creatine Kinase Total Protein Albumin Urine WBC (Auto) Crossmatch 06/25/16 06/25/16 06/25/16 06:42 06:49 12:14 WBC RBC Hgb POC Hgb Hct POC Hct MCH MCHC RDW Plt Count Lymph % (Auto) [place] % (Auto) Lymph # [place] # Baso # Seg Neutrophils % Seg Neuts % (Manual) Lymphocytes % (Manual) Monocytes % (Manual) Nucleated RBC % Seg Neutrophils # Seg Neutrophils # Man Lymphocytes # (Manual) Monocytes # (Manual) PT INR APTT Fibrinogen Heparin Anti-Xa Level POC ABG pH POC ABG pCO2 POC ABG pO2 POC Potassium POC Chloride Sodium Potassium Chloride Carbon Dioxide POC BUN BUN 46 H Creatinine 3.6 H Glucose 133 H POC Glucose 137 H 136 H Calcium 7.4 L Magnesium AST Alkaline Phosphatase Lactate Dehydrogenase Total Creatine Kinase Total Protein Albumin Urine WBC (Auto) Crossmatch 06/25/16 06/25/16 06/26/16 16:07 21:32 05:55 WBC RBC Hgb POC Hgb Hct POC Hct MCH MCHC RDW Plt Count Lymph % (Auto) [place] % (Auto) Lymph # [place] # Baso # Seg Neutrophils % Seg Neuts % (Manual) Lymphocytes % (Manual) Monocytes % (Manual) Nucleated RBC % Seg Neutrophils # Seg Neutrophils # Man Lymphocytes # (Manual) Monocytes # (Manual) PT INR APTT Fibrinogen Heparin Anti-Xa Level POC ABG pH POC ABG pCO2 POC ABG pO2 POC Potassium POC Chloride Sodium Potassium Chloride Carbon Dioxide 20 L POC BUN BUN 55 H Creatinine 4.2 H Glucose 120 H POC Glucose 146 H 146 H Calcium 7.5 L Magnesium AST Alkaline Phosphatase Lactate Dehydrogenase Total Creatine Kinase Total Protein Albumin Urine WBC (Auto) Crossmatch 06/26/16 06/26/16 06/26/16 06:30 11:38 16:45 WBC RBC Hgb POC Hgb Hct POC Hct MCH MCHC RDW Plt Count Lymph % (Auto) [place] % (Auto) Lymph # [place] # Baso # Seg Neutrophils % Seg Neuts % (Manual) Lymphocytes % (Manual) Monocytes % (Manual) Nucleated RBC % Seg Neutrophils # Seg Neutrophils # Man Lymphocytes # (Manual) Monocytes # (Manual) PT INR APTT Fibrinogen Heparin Anti-Xa Level POC ABG pH POC ABG pCO2 POC ABG pO2 POC Potassium POC Chloride Sodium Potassium Chloride Carbon Dioxide POC BUN BUN Creatinine Glucose POC Glucose 128 H 143 H 121 H Calcium Magnesium AST Alkaline Phosphatase Lactate Dehydrogenase Total Creatine Kinase Total Protein Albumin Urine WBC (Auto) Crossmatch 06/26/16 06/26/16 06/27/16 22:57 22:57 00:47 WBC RBC Hgb 8.4 L POC Hgb Hct 25.1 L POC Hct MCH MCHC RDW Plt Count Lymph % (Auto) [place] % (Auto) Lymph # [place] # Baso # Seg Neutrophils % Seg Neuts % (Manual) Lymphocytes % (Manual) Monocytes % (Manual) Nucleated RBC % Seg Neutrophils # Seg Neutrophils # Man Lymphocytes # (Manual) Monocytes # (Manual) PT 19.9 H INR 1.69 H APTT Fibrinogen Heparin Anti-Xa Level POC ABG pH POC ABG pCO2 POC ABG pO2 POC Potassium POC Chloride Sodium Potassium Chloride Carbon Dioxide POC BUN BUN Creatinine Glucose POC Glucose 110 H Calcium Magnesium AST Alkaline Phosphatase Lactate Dehydrogenase Total Creatine Kinase Total Protein Albumin Urine WBC (Auto) Crossmatch 06/27/16 06/27/16 06/27/16 05:43 05:43 06:40 WBC RBC Hgb POC Hgb Hct POC Hct MCH MCHC RDW Plt Count Lymph % (Auto) [place] % (Auto) Lymph # [place] # Baso # Seg Neutrophils % Seg Neuts % (Manual) Lymphocytes % (Manual) Monocytes % (Manual) Nucleated RBC % Seg Neutrophils # Seg Neutrophils # Man Lymphocytes # (Manual) Monocytes # (Manual) PT INR APTT Fibrinogen Heparin Anti-Xa Level 2.00 H POC ABG pH POC ABG pCO2 POC ABG pO2 POC Potassium POC Chloride Sodium Potassium Chloride Carbon Dioxide 20 L POC BUN BUN 58 H Creatinine 4.8 H Glucose POC Glucose 109 H Calcium 8.1 L Magnesium AST Alkaline Phosphatase Lactate Dehydrogenase Total Creatine Kinase Total Protein Albumin Urine WBC (Auto) Crossmatch 06/27/16 06/27/16 06/27/16 08:15 16:46 17:47 WBC RBC Hgb POC Hgb Hct POC Hct MCH MCHC RDW Plt Count Lymph % (Auto) [place] % (Auto) Lymph # [place] # Baso # Seg Neutrophils % Seg Neuts % (Manual) Lymphocytes % (Manual) Monocytes % (Manual) Nucleated RBC % Seg Neutrophils # Seg Neutrophils # Man Lymphocytes # (Manual) Monocytes # (Manual) PT INR APTT Fibrinogen Heparin Anti-Xa Level > 2.00 H 1.87 H POC ABG pH POC ABG pCO2 POC ABG pO2 POC Potassium POC Chloride Sodium Potassium Chloride Carbon Dioxide POC BUN BUN Creatinine Glucose POC Glucose 231 H Calcium Magnesium AST Alkaline Phosphatase Lactate Dehydrogenase Total Creatine Kinase Total Protein Albumin Urine WBC (Auto) Crossmatch 06/27/16 06/27/16 06/28/16 21:23 23:54 06:27 WBC RBC Hgb POC Hgb Hct POC Hct MCH MCHC RDW Plt Count Lymph % (Auto) [place] % (Auto) Lymph # [place] # Baso # Seg Neutrophils % Seg Neuts % (Manual) Lymphocytes % (Manual) Monocytes % (Manual) Nucleated RBC % Seg Neutrophils # Seg Neutrophils # Man Lymphocytes # (Manual) Monocytes # (Manual) PT INR APTT Fibrinogen Heparin Anti-Xa Level 1.70 H POC ABG pH POC ABG pCO2 POC ABG pO2 POC Potassium POC Chloride Sodium Potassium Chloride Carbon Dioxide POC BUN BUN 62 H Creatinine 4.5 H Glucose 111 H POC Glucose 122 H Calcium 8.3 L Magnesium AST Alkaline Phosphatase Lactate Dehydrogenase Total Creatine Kinase Total Protein Albumin Urine WBC (Auto) Crossmatch 06/28/16 06/28/16 06/28/16 06:27 11:47 14:14 WBC RBC Hgb 7.7 L POC Hgb Hct 22.9 L POC Hct MCH MCHC RDW Plt Count Lymph % (Auto) [place] % (Auto) Lymph # [place] # Baso # Seg Neutrophils % Seg Neuts % (Manual) Lymphocytes % (Manual) Monocytes % (Manual) Nucleated RBC % Seg Neutrophils # Seg Neutrophils # Man Lymphocytes # (Manual) Monocytes # (Manual) PT INR APTT Fibrinogen Heparin Anti-Xa Level POC ABG pH 7.461 H POC ABG pCO2 31.9 L POC ABG pO2 73 L POC Potassium POC Chloride Sodium Potassium Chloride Carbon Dioxide POC BUN BUN Creatinine Glucose POC Glucose 155 H Calcium Magnesium AST Alkaline Phosphatase Lactate Dehydrogenase Total Creatine Kinase Total Protein Albumin Urine WBC (Auto) Crossmatch 06/28/16 06/28/16 06/28/16 16:27 20:47 22:59 WBC RBC Hgb POC Hgb Hct POC Hct MCH MCHC RDW Plt Count Lymph % (Auto) [place] % (Auto) Lymph # [place] # Baso # Seg Neutrophils % Seg Neuts % (Manual) Lymphocytes % (Manual) Monocytes % (Manual) Nucleated RBC % Seg Neutrophils # Seg Neutrophils # Man Lymphocytes # (Manual) Monocytes # (Manual) PT INR APTT Fibrinogen Heparin Anti-Xa Level 1.16 H POC ABG pH POC ABG pCO2 POC ABG pO2 POC Potassium POC Chloride Sodium Potassium Chloride Carbon Dioxide POC BUN BUN Creatinine Glucose POC Glucose 193 H 126 H Calcium Magnesium AST Alkaline Phosphatase Lactate Dehydrogenase Total Creatine Kinase Total Protein Albumin Urine WBC (Auto) Crossmatch 06/29/16 06/29/16 06/29/16 05:51 09:10 09:10 WBC RBC Hgb POC Hgb Hct POC Hct MCH MCHC RDW Plt Count Lymph % (Auto) [place] % (Auto) Lymph # [place] # Baso # Seg Neutrophils % Seg Neuts % (Manual) Lymphocytes % (Manual) Monocytes % (Manual) Nucleated RBC % Seg Neutrophils # Seg Neutrophils # Man Lymphocytes # (Manual) Monocytes # (Manual) PT INR APTT Fibrinogen Heparin Anti-Xa Level 0.92 H POC ABG pH POC ABG pCO2 POC ABG pO2 POC Potassium POC Chloride Sodium Potassium Chloride Carbon Dioxide POC BUN BUN 53 H Creatinine 3.7 H Glucose 139 H POC Glucose 121 H Calcium 8.2 L Magnesium AST Alkaline Phosphatase Lactate Dehydrogenase Total Creatine Kinase Total Protein Albumin Urine WBC (Auto) Crossmatch 06/29/16 06/30/16 06/30/16 21:22 05:09 08:07 WBC RBC Hgb 7.3 L POC Hgb Hct 21.9 L POC Hct MCH MCHC RDW Plt Count Lymph % (Auto) [place] % (Auto) Lymph # [place] # Baso # Seg Neutrophils % Seg Neuts % (Manual) Lymphocytes % (Manual) Monocytes % (Manual) Nucleated RBC % Seg Neutrophils # Seg Neutrophils # Man Lymphocytes # (Manual) Monocytes # (Manual) PT INR APTT Fibrinogen Heparin Anti-Xa Level POC ABG pH POC ABG pCO2 POC ABG pO2 POC Potassium POC Chloride Sodium Potassium Chloride Carbon Dioxide POC BUN BUN Creatinine Glucose POC Glucose 108 H 106 H Calcium Magnesium AST Alkaline Phosphatase Lactate Dehydrogenase Total Creatine Kinase Total Protein Albumin Urine WBC (Auto) Crossmatch 06/30/16 06/30/16 06/30/16 10:48 12:13 16:48 WBC RBC Hgb POC Hgb Hct POC Hct MCH MCHC RDW Plt Count Lymph % (Auto) [place] % (Auto) Lymph # [place] # Baso # Seg Neutrophils % Seg Neuts % (Manual) Lymphocytes % (Manual) Monocytes % (Manual) Nucleated RBC % Seg Neutrophils # Seg Neutrophils # Man Lymphocytes # (Manual) Monocytes # (Manual) PT INR APTT Fibrinogen Heparin Anti-Xa Level POC ABG pH POC ABG pCO2 POC ABG pO2 POC Potassium POC Chloride Sodium Potassium Chloride Carbon Dioxide POC BUN BUN 46 H Creatinine 3.0 H Glucose POC Glucose 153 H 152 H Calcium Magnesium AST Alkaline Phosphatase Lactate Dehydrogenase Total Creatine Kinase Total Protein Albumin Urine WBC (Auto) Crossmatch 06/30/16 07/01/16 07/01/16 21:47 05:47 07:44 WBC 19.8 H RBC 2.45 L Hgb 7.2 L POC Hgb Hct 22.2 L POC Hct MCH MCHC RDW Plt Count 481 H Lymph % (Auto) 5.5 L [place] % (Auto) Lymph # 1.1 L [place] # 1.4 H Baso # Seg Neutrophils % 86.8 H Seg Neuts % (Manual) Lymphocytes % (Manual) Monocytes % (Manual) Nucleated RBC % Seg Neutrophils # 17.1 H Seg Neutrophils # Man Lymphocytes # (Manual) Monocytes # (Manual) PT INR APTT Fibrinogen Heparin Anti-Xa Level POC ABG pH POC ABG pCO2 POC ABG pO2 POC Potassium POC Chloride Sodium Potassium Chloride Carbon Dioxide POC BUN BUN Creatinine Glucose POC Glucose 162 H 124 H Calcium Magnesium AST Alkaline Phosphatase Lactate Dehydrogenase Total Creatine Kinase Total Protein Albumin Urine WBC (Auto) Crossmatch 07/01/16 07/01/16 07/01/16 07:44 11:55 16:16 WBC RBC Hgb POC Hgb Hct POC Hct MCH MCHC RDW Plt Count Lymph % (Auto) [place] % (Auto) Lymph # [place] # Baso # Seg Neutrophils % Seg Neuts % (Manual) Lymphocytes % (Manual) Monocytes % (Manual) Nucleated RBC % Seg Neutrophils # Seg Neutrophils # Man Lymphocytes # (Manual) Monocytes # (Manual) PT INR APTT Fibrinogen Heparin Anti-Xa Level POC ABG pH POC ABG pCO2 POC ABG pO2 POC Potassium POC Chloride Sodium Potassium 3.1 L Chloride Carbon Dioxide POC BUN BUN 38 H Creatinine 2.2 H Glucose 114 H POC Glucose 114 H 143 H Calcium Magnesium AST Alkaline Phosphatase Lactate Dehydrogenase Total Creatine Kinase Total Protein Albumin Urine WBC (Auto) Crossmatch 07/01/16 07/02/16 07/02/16 21:42 05:40 06:46 WBC 18.1 H RBC 2.45 L Hgb 7.3 L POC Hgb Hct 21.8 L POC Hct MCH MCHC RDW Plt Count 490 H Lymph % (Auto) 6.1 L [place] % (Auto) Lymph # 1.1 L [place] # 1.1 H Baso # 0.2 H Seg Neutrophils % 86.0 H Seg Neuts % (Manual) Lymphocytes % (Manual) Monocytes % (Manual) Nucleated RBC % Seg Neutrophils # 15.6 H Seg Neutrophils # Man Lymphocytes # (Manual) Monocytes # (Manual) PT INR APTT Fibrinogen Heparin Anti-Xa Level POC ABG pH POC ABG pCO2 POC ABG pO2 POC Potassium POC Chloride Sodium Potassium Chloride Carbon Dioxide POC BUN BUN Creatinine Glucose POC Glucose 135 H 135 H Calcium Magnesium AST Alkaline Phosphatase Lactate Dehydrogenase Total Creatine Kinase Total Protein Albumin Urine WBC (Auto) Crossmatch 07/02/16 07/02/16 07/02/16 06:46 06:49 11:23 WBC RBC Hgb POC Hgb Hct POC Hct MCH MCHC RDW Plt Count Lymph % (Auto) [place] % (Auto) Lymph # [place] # Baso # Seg Neutrophils % Seg Neuts % (Manual) Lymphocytes % (Manual) Monocytes % (Manual) Nucleated RBC % Seg Neutrophils # Seg Neutrophils # Man Lymphocytes # (Manual) Monocytes # (Manual) PT INR APTT Fibrinogen Heparin Anti-Xa Level POC ABG pH POC ABG pCO2 POC ABG pO2 POC Potassium POC Chloride Sodium Potassium 2.8 L* Chloride Carbon Dioxide POC BUN BUN 30 H Creatinine 1.8 H Glucose 121 H POC Glucose 121 H Calcium 8.1 L Magnesium 1.3 L AST Alkaline Phosphatase Lactate Dehydrogenase Total Creatine Kinase Total Protein Albumin Urine WBC (Auto) Crossmatch 07/02/16 07/02/16 07/03/16 17:02 21:31 05:35 WBC RBC Hgb POC Hgb Hct POC Hct MCH MCHC RDW Plt Count Lymph % (Auto) [place] % (Auto) Lymph # [place] # Baso # Seg Neutrophils % Seg Neuts % (Manual) Lymphocytes % (Manual) Monocytes % (Manual) Nucleated RBC % Seg Neutrophils # Seg Neutrophils # Man Lymphocytes # (Manual) Monocytes # (Manual) PT INR APTT Fibrinogen Heparin Anti-Xa Level POC ABG pH POC ABG pCO2 POC ABG pO2 POC Potassium POC Chloride Sodium Potassium Chloride Carbon Dioxide POC BUN BUN Creatinine Glucose POC Glucose 121 H 159 H 149 H Calcium Magnesium AST Alkaline Phosphatase Lactate Dehydrogenase Total Creatine Kinase Total Protein Albumin Urine WBC (Auto) Crossmatch 07/03/16 07/03/16 07/03/16 06:45 06:45 06:45 WBC 16.8 H RBC 2.21 L Hgb 6.5 L POC Hgb Hct 19.4 L* POC Hct MCH MCHC RDW Plt Count 503 H Lymph % (Auto) 6.4 L [place] % (Auto) Lymph # 1.1 L [place] # 1.1 H Baso # Seg Neutrophils % 85.6 H Seg Neuts % (Manual) Lymphocytes % (Manual) Monocytes % (Manual) Nucleated RBC % Seg Neutrophils # 14.4 H Seg Neutrophils # Man Lymphocytes # (Manual) Monocytes # (Manual) PT INR APTT Fibrinogen Heparin Anti-Xa Level POC ABG pH POC ABG pCO2 POC ABG pO2 POC Potassium POC Chloride Sodium Potassium 2.9 L* Chloride Carbon Dioxide POC BUN BUN 21 H Creatinine 1.6 H Glucose 126 H POC Glucose Calcium 8.0 L Magnesium 1.6 L AST Alkaline Phosphatase Lactate Dehydrogenase Total Creatine Kinase Total Protein Albumin Urine WBC (Auto) Crossmatch 07/03/16 07/03/16 07/03/16 12:54 19:00 20:01 WBC RBC Hgb POC Hgb Hct POC Hct MCH MCHC RDW Plt Count Lymph % (Auto) [place] % (Auto) Lymph # [place] # Baso # Seg Neutrophils % Seg Neuts % (Manual) Lymphocytes % (Manual) Monocytes % (Manual) Nucleated RBC % Seg Neutrophils # Seg Neutrophils # Man Lymphocytes # (Manual) Monocytes # (Manual) PT INR APTT Fibrinogen Heparin Anti-Xa Level POC ABG pH 7.302 L POC ABG pCO2 49.8 H POC ABG pO2 422 H POC Potassium POC Chloride Sodium Potassium Chloride Carbon Dioxide POC BUN BUN Creatinine Glucose POC Glucose 129 H Calcium Magnesium AST Alkaline Phosphatase Lactate Dehydrogenase Total Creatine Kinase Total Protein Albumin Urine WBC (Auto) Crossmatch See Detail 07/03/16 07/04/16 07/04/16 23:09 04:30 04:30 WBC 19.6 H RBC 3.21 L Hgb 9.4 L POC Hgb Hct 28.2 L POC Hct MCH MCHC RDW Plt Count Lymph % (Auto) 6.5 L [place] % (Auto) Lymph # [place] # 1.2 H Baso # Seg Neutrophils % 86.4 H Seg Neuts % (Manual) Lymphocytes % (Manual) Monocytes % (Manual) Nucleated RBC % Seg Neutrophils # 16.9 H Seg Neutrophils # Man Lymphocytes # (Manual) Monocytes # (Manual) PT INR APTT Fibrinogen Heparin Anti-Xa Level POC ABG pH POC ABG pCO2 POC ABG pO2 POC Potassium POC Chloride Sodium Potassium 3.5 L D Chloride 111.2 H Carbon Dioxide 20 L POC BUN BUN 18 H Creatinine Glucose POC Glucose 111 H Calcium 7.0 L Magnesium AST Alkaline Phosphatase Lactate Dehydrogenase Total Creatine Kinase Total Protein Albumin Urine WBC (Auto) Crossmatch 07/04/16 07/04/16 07/04/16 05:44 12:50 14:33 WBC RBC Hgb POC Hgb Hct POC Hct MCH MCHC RDW Plt Count Lymph % (Auto) [place] % (Auto) Lymph # [place] # Baso # Seg Neutrophils % Seg Neuts % (Manual) Lymphocytes % (Manual) Monocytes % (Manual) Nucleated RBC % Seg Neutrophils # Seg Neutrophils # Man Lymphocytes # (Manual) Monocytes # (Manual) PT INR APTT Fibrinogen Heparin Anti-Xa Level POC ABG pH 7.465 H 7.468 H POC ABG pCO2 29.5 L 29.1 L 33.1 L POC ABG pO2 110 H 39 L POC Potassium POC Chloride Sodium Potassium Chloride Carbon Dioxide POC BUN BUN Creatinine Glucose POC Glucose Calcium Magnesium AST Alkaline Phosphatase Lactate Dehydrogenase Total Creatine Kinase Total Protein Albumin Urine WBC (Auto) Crossmatch 07/04/16 07/05/16 07/05/16 16:49 00:20 04:19 WBC 16.2 H RBC 3.44 L Hgb POC Hgb Hct POC Hct MCH MCHC RDW Plt Count Lymph % (Auto) 5.2 L [place] % (Auto) 7.5 H Lymph # 0.8 L [place] # 1.2 H Baso # Seg Neutrophils % 86.5 H Seg Neuts % (Manual) Lymphocytes % (Manual) Monocytes % (Manual) Nucleated RBC % Seg Neutrophils # 14.0 H Seg Neutrophils # Man Lymphocytes # (Manual) Monocytes # (Manual) PT INR APTT Fibrinogen Heparin Anti-Xa Level POC ABG pH POC ABG pCO2 31.1 L POC ABG pO2 110 H POC Potassium POC Chloride Sodium Potassium Chloride Carbon Dioxide POC BUN BUN Creatinine Glucose POC Glucose 168 H Calcium Magnesium AST Alkaline Phosphatase Lactate Dehydrogenase Total Creatine Kinase Total Protein Albumin Urine WBC (Auto) Crossmatch 07/05/16 07/05/16 07/05/16 04:19 06:01 09:54 WBC RBC Hgb POC Hgb Hct POC Hct MCH MCHC RDW Plt Count Lymph % (Auto) [place] % (Auto) Lymph # [place] # Baso # Seg Neutrophils % Seg Neuts % (Manual) Lymphocytes % (Manual) Monocytes % (Manual) Nucleated RBC % Seg Neutrophils # Seg Neutrophils # Man Lymphocytes # (Manual) Monocytes # (Manual) PT INR APTT Fibrinogen Heparin Anti-Xa Level POC ABG pH POC ABG pCO2 POC ABG pO2 POC Potassium POC Chloride Sodium 146 H Potassium 3.5 L Chloride 109.1 H Carbon Dioxide POC BUN BUN Creatinine Glucose 135 H POC Glucose 146 H 284 H Calcium 7.8 L Magnesium AST Alkaline Phosphatase Lactate Dehydrogenase Total Creatine Kinase Total Protein Albumin Urine WBC (Auto) Crossmatch 07/05/16 07/06/16 07/06/16 13:35 04:40 04:40 WBC 17.7 H RBC 3.32 L Hgb 9.8 L POC Hgb Hct 29.8 L POC Hct MCH MCHC RDW Plt Count Lymph % (Auto) [place] % (Auto) Lymph # [place] # Baso # Seg Neutrophils % Seg Neuts % (Manual) 85.0 H Lymphocytes % (Manual) 4.0 L Monocytes % (Manual) 10.0 H Nucleated RBC % Seg Neutrophils # Seg Neutrophils # Man 15.0 H Lymphocytes # (Manual) 0.7 L Monocytes # (Manual) 1.8 H PT INR APTT Fibrinogen Heparin Anti-Xa Level POC ABG pH POC ABG pCO2 POC ABG pO2 POC Potassium POC Chloride Sodium Potassium 3.5 L Chloride Carbon Dioxide 21 L POC BUN BUN Creatinine Glucose 108 H POC Glucose 130 H Calcium 7.8 L Magnesium AST Alkaline Phosphatase Lactate Dehydrogenase Total Creatine Kinase Total Protein Albumin Urine WBC (Auto) Crossmatch 07/06/16 07/06/16 07/06/16 07:46 11:49 15:31 WBC RBC Hgb POC Hgb Hct POC Hct MCH MCHC RDW Plt Count Lymph % (Auto) [place] % (Auto) Lymph # [place] # Baso # Seg Neutrophils % Seg Neuts % (Manual) Lymphocytes % (Manual) Monocytes % (Manual) Nucleated RBC % Seg Neutrophils # Seg Neutrophils # Man Lymphocytes # (Manual) Monocytes # (Manual) PT INR APTT Fibrinogen Heparin Anti-Xa Level POC ABG pH POC ABG pCO2 POC ABG pO2 POC Potassium POC Chloride Sodium Potassium Chloride Carbon Dioxide POC BUN BUN Creatinine Glucose POC Glucose 149 H 146 H 135 H Calcium Magnesium AST Alkaline Phosphatase Lactate Dehydrogenase Total Creatine Kinase Total Protein Albumin Urine WBC (Auto) Crossmatch 07/06/16 07/06/16 07/07/16 17:17 20:59 04:53 WBC 15.5 H RBC 3.55 L Hgb POC Hgb Hct POC Hct MCH MCHC RDW Plt Count Lymph % (Auto) 4.9 L [place] % (Auto) Lymph # 0.8 L [place] # 0.9 H Baso # Seg Neutrophils % 87.9 H Seg Neuts % (Manual) Lymphocytes % (Manual) Monocytes % (Manual) Nucleated RBC % Seg Neutrophils # 13.7 H Seg Neutrophils # Man Lymphocytes # (Manual) Monocytes # (Manual) PT INR APTT Fibrinogen Heparin Anti-Xa Level POC ABG pH POC ABG pCO2 POC ABG pO2 POC Potassium POC Chloride Sodium Potassium Chloride Carbon Dioxide POC BUN BUN Creatinine Glucose POC Glucose 140 H Calcium Magnesium AST Alkaline Phosphatase Lactate Dehydrogenase Total Creatine Kinase Total Protein Albumin Urine WBC (Auto) 67.0 H Crossmatch 07/07/16 07/07/16 07/07/16 04:53 06:13 07:15 WBC RBC Hgb POC Hgb Hct POC Hct MCH MCHC RDW Plt Count Lymph % (Auto) [place] % (Auto) Lymph # [place] # Baso # Seg Neutrophils % Seg Neuts % (Manual) Lymphocytes % (Manual) Monocytes % (Manual) Nucleated RBC % Seg Neutrophils # Seg Neutrophils # Man Lymphocytes # (Manual) Monocytes # (Manual) PT INR APTT Fibrinogen Heparin Anti-Xa Level POC ABG pH POC ABG pCO2 POC ABG pO2 POC Potassium POC Chloride Sodium Potassium 3.4 L Chloride Carbon Dioxide POC BUN BUN Creatinine Glucose 104 H POC Glucose 122 H 134 H Calcium 8.0 L Magnesium AST Alkaline Phosphatase Lactate Dehydrogenase Total Creatine Kinase Total Protein Albumin Urine WBC (Auto) Crossmatch 07/07/16 07/07/16 07/07/16 08:06 08:06 10:31 WBC RBC Hgb POC Hgb Hct POC Hct MCH MCHC RDW Plt Count Lymph % (Auto) [place] % (Auto) Lymph # [place] # Baso # Seg Neutrophils % Seg Neuts % (Manual) Lymphocytes % (Manual) Monocytes % (Manual) Nucleated RBC % Seg Neutrophils # Seg Neutrophils # Man Lymphocytes # (Manual) Monocytes # (Manual) PT INR APTT Fibrinogen Heparin Anti-Xa Level POC ABG pH POC ABG pCO2 POC ABG pO2 POC Potassium POC Chloride Sodium Potassium Chloride Carbon Dioxide POC BUN BUN Creatinine Glucose 111 H POC Glucose 145 H Calcium 7.9 L Magnesium AST 53 H Alkaline Phosphatase 164 H Lactate Dehydrogenase Total Creatine Kinase Total Protein 6.2 L Albumin 1.4 L Urine WBC (Auto) Crossmatch See Detail 07/07/16 07/07/16 07/07/16 12:08 13:57 16:44 WBC RBC Hgb 9.7 L POC Hgb Hct 30.1 L POC Hct MCH MCHC RDW Plt Count Lymph % (Auto) [place] % (Auto) Lymph # [place] # Baso # Seg Neutrophils % Seg Neuts % (Manual) Lymphocytes % (Manual) Monocytes % (Manual) Nucleated RBC % Seg Neutrophils # Seg Neutrophils # Man Lymphocytes # (Manual) Monocytes # (Manual) PT INR APTT Fibrinogen Heparin Anti-Xa Level POC ABG pH POC ABG pCO2 POC ABG pO2 POC Potassium POC Chloride Sodium Potassium Chloride Carbon Dioxide POC BUN BUN Creatinine Glucose POC Glucose 159 H 173 H Calcium Magnesium AST Alkaline Phosphatase Lactate Dehydrogenase Total Creatine Kinase Total Protein Albumin Urine WBC (Auto) Crossmatch 07/07/16 07/08/16 07/08/16 23:31 07:27 12:16 WBC RBC Hgb POC Hgb Hct POC Hct MCH MCHC RDW Plt Count Lymph % (Auto) [place] % (Auto) Lymph # [place] # Baso # Seg Neutrophils % Seg Neuts % (Manual) Lymphocytes % (Manual) Monocytes % (Manual) Nucleated RBC % Seg Neutrophils # Seg Neutrophils # Man Lymphocytes # (Manual) Monocytes # (Manual) PT INR APTT Fibrinogen Heparin Anti-Xa Level POC ABG pH POC ABG pCO2 POC ABG pO2 POC Potassium POC Chloride Sodium Potassium Chloride Carbon Dioxide POC BUN BUN Creatinine Glucose POC Glucose 163 H 149 H 150 H Calcium Magnesium AST Alkaline Phosphatase Lactate Dehydrogenase Total Creatine Kinase Total Protein Albumin Urine WBC (Auto) Crossmatch 07/08/16 07/08/16 07/08/16 12:50 16:46 21:45 WBC RBC Hgb POC Hgb Hct POC Hct MCH MCHC RDW Plt Count Lymph % (Auto) [place] % (Auto) Lymph # [place] # Baso # Seg Neutrophils % Seg Neuts % (Manual) Lymphocytes % (Manual) Monocytes % (Manual) Nucleated RBC % Seg Neutrophils # Seg Neutrophils # Man Lymphocytes # (Manual) Monocytes # (Manual) PT INR APTT Fibrinogen Heparin Anti-Xa Level POC ABG pH POC ABG pCO2 POC ABG pO2 POC Potassium POC Chloride Sodium Potassium Chloride Carbon Dioxide 21 L POC BUN BUN Creatinine Glucose 126 H POC Glucose 143 H 134 H Calcium 7.5 L Magnesium AST Alkaline Phosphatase Lactate Dehydrogenase Total Creatine Kinase Total Protein Albumin Urine WBC (Auto) Crossmatch 07/09/16 07/09/16 07/09/16 07:31 07:31 08:07 WBC RBC Hgb POC Hgb Hct POC Hct MCH MCHC RDW Plt Count Lymph % (Auto) [place] % (Auto) Lymph # [place] # Baso # Seg Neutrophils % Seg Neuts % (Manual) Lymphocytes % (Manual) Monocytes % (Manual) Nucleated RBC % Seg Neutrophils # Seg Neutrophils # Man Lymphocytes # (Manual) Monocytes # (Manual) PT INR APTT Fibrinogen Heparin Anti-Xa Level POC ABG pH POC ABG pCO2 POC ABG pO2 POC Potassium POC Chloride Sodium Potassium Chloride Carbon Dioxide POC BUN BUN Creatinine Glucose 117 H POC Glucose 132 H Calcium 7.5 L Magnesium AST Alkaline Phosphatase 136 H Lactate Dehydrogenase 285 H Total Creatine Kinase 297 H Total Protein 5.4 L Albumin 1.5 L Urine WBC (Auto) Crossmatch 07/09/16 07/09/16 07/09/16 09:55 11:10 16:26 WBC 13.4 H RBC 1.95 L Hgb 5.8 L* D POC Hgb Hct 17.7 L* D POC Hct MCH MCHC RDW 15.5 H Plt Count Lymph % (Auto) 9.4 L [place] % (Auto) 8.3 H Lymph # [place] # 1.1 H Baso # Seg Neutrophils % 81.2 H Seg Neuts % (Manual) Lymphocytes % (Manual) Monocytes % (Manual) Nucleated RBC % Seg Neutrophils # 10.9 H Seg Neutrophils # Man Lymphocytes # (Manual) Monocytes # (Manual) PT INR APTT Fibrinogen Heparin Anti-Xa Level POC ABG pH POC ABG pCO2 POC ABG pO2 POC Potassium POC Chloride Sodium Potassium Chloride Carbon Dioxide POC BUN BUN Creatinine Glucose POC Glucose 240 H 113 H Calcium Magnesium AST Alkaline Phosphatase Lactate Dehydrogenase Total Creatine Kinase Total Protein Albumin Urine WBC (Auto) Crossmatch 07/09/16 07/10/16 07/10/16 21:45 04:10 09:03 WBC 15.1 H RBC 3.00 L Hgb 8.8 L D POC Hgb Hct 26.2 L D POC Hct MCH MCHC RDW 15.4 H Plt Count Lymph % (Auto) 8.4 L [place] % (Auto) 8.4 H Lymph # [place] # 1.3 H Baso # Seg Neutrophils % 82.5 H Seg Neuts % (Manual) Lymphocytes % (Manual) Monocytes % (Manual) Nucleated RBC % Seg Neutrophils # 12.5 H Seg Neutrophils # Man Lymphocytes # (Manual) Monocytes # (Manual) PT INR APTT Fibrinogen Heparin Anti-Xa Level POC ABG pH POC ABG pCO2 POC ABG pO2 POC Potassium POC Chloride Sodium Potassium Chloride Carbon Dioxide POC BUN BUN Creatinine Glucose POC Glucose 113 H 122 H Calcium Magnesium AST Alkaline Phosphatase Lactate Dehydrogenase Total Creatine Kinase Total Protein Albumin Urine WBC (Auto) Crossmatch 07/10/16 07/10/16 07/10/16 11:38 15:36 21:45 WBC RBC Hgb POC Hgb Hct POC Hct MCH MCHC RDW Plt Count Lymph % (Auto) [place] % (Auto) Lymph # [place] # Baso # Seg Neutrophils % Seg Neuts % (Manual) Lymphocytes % (Manual) Monocytes % (Manual) Nucleated RBC % Seg Neutrophils # Seg Neutrophils # Man Lymphocytes # (Manual) Monocytes # (Manual) PT INR APTT Fibrinogen Heparin Anti-Xa Level POC ABG pH POC ABG pCO2 POC ABG pO2 POC Potassium POC Chloride Sodium Potassium Chloride Carbon Dioxide POC BUN BUN Creatinine Glucose POC Glucose 146 H 131 H 141 H Calcium Magnesium AST Alkaline Phosphatase Lactate Dehydrogenase Total Creatine Kinase Total Protein Albumin Urine WBC (Auto) Crossmatch 07/11/16 07/11/16 07/11/16 05:10 07:40 11:45 WBC RBC Hgb POC Hgb Hct POC Hct MCH MCHC RDW Plt Count Lymph % (Auto) [place] % (Auto) Lymph # [place] # Baso # Seg Neutrophils % Seg Neuts % (Manual) Lymphocytes % (Manual) Monocytes % (Manual) Nucleated RBC % Seg Neutrophils # Seg Neutrophils # Man Lymphocytes # (Manual) Monocytes # (Manual) PT INR APTT Fibrinogen Heparin Anti-Xa Level POC ABG pH POC ABG pCO2 POC ABG pO2 POC Potassium POC Chloride Sodium Potassium Chloride Carbon Dioxide POC BUN BUN Creatinine Glucose 107 H POC Glucose 114 H 116 H Calcium 7.7 L Magnesium AST 81 H Alkaline Phosphatase 153 H Lactate Dehydrogenase Total Creatine Kinase Total Protein 6.0 L Albumin 1.8 L Urine WBC (Auto) Crossmatch 07/11/16 07/11/16 07/12/16 16:22 19:45 08:39 WBC RBC Hgb POC Hgb Hct POC Hct MCH MCHC RDW Plt Count Lymph % (Auto) [place] % (Auto) Lymph # [place] # Baso # Seg Neutrophils % Seg Neuts % (Manual) Lymphocytes % (Manual) Monocytes % (Manual) Nucleated RBC % Seg Neutrophils # Seg Neutrophils # Man Lymphocytes # (Manual) Monocytes # (Manual) PT INR APTT Fibrinogen Heparin Anti-Xa Level POC ABG pH POC ABG pCO2 POC ABG pO2 POC Potassium POC Chloride Sodium Potassium Chloride Carbon Dioxide POC BUN BUN Creatinine Glucose POC Glucose 110 H 106 H 124 H Calcium Magnesium AST Alkaline Phosphatase Lactate Dehydrogenase Total Creatine Kinase Total Protein Albumin Urine WBC (Auto) Crossmatch 07/12/16 07/12/16 07/13/16 11:31 16:36 07:05 WBC 12.4 H RBC 2.93 L Hgb 8.5 L POC Hgb Hct 25.6 L POC Hct MCH MCHC RDW Plt Count Lymph % (Auto) 11.2 L [place] % (Auto) 7.5 H Lymph # [place] # 0.9 H Baso # Seg Neutrophils % 80.6 H Seg Neuts % (Manual) Lymphocytes % (Manual) Monocytes % (Manual) Nucleated RBC % Seg Neutrophils # 10.0 H Seg Neutrophils # Man Lymphocytes # (Manual) Monocytes # (Manual) PT INR APTT Fibrinogen Heparin Anti-Xa Level POC ABG pH POC ABG pCO2 POC ABG pO2 POC Potassium POC Chloride Sodium Potassium Chloride Carbon Dioxide POC BUN BUN Creatinine Glucose POC Glucose 128 H 119 H Calcium Magnesium AST Alkaline Phosphatase Lactate Dehydrogenase Total Creatine Kinase Total Protein Albumin Urine WBC (Auto) Crossmatch 07/13/16 07/13/16 07/13/16 07:30 11:41 13:45 WBC RBC Hgb POC Hgb Hct POC Hct MCH MCHC RDW Plt Count Lymph % (Auto) [place] % (Auto) Lymph # [place] # Baso # Seg Neutrophils % Seg Neuts % (Manual) Lymphocytes % (Manual) Monocytes % (Manual) Nucleated RBC % Seg Neutrophils # Seg Neutrophils # Man Lymphocytes # (Manual) Monocytes # (Manual) PT INR APTT Fibrinogen Heparin Anti-Xa Level POC ABG pH POC ABG pCO2 POC ABG pO2 POC Potassium POC Chloride Sodium Potassium Chloride Carbon Dioxide POC BUN BUN Creatinine Glucose POC Glucose 133 H 129 H Calcium Magnesium AST Alkaline Phosphatase Lactate Dehydrogenase Total Creatine Kinase Total Protein Albumin Urine WBC (Auto) Crossmatch See Detail 07/13/16 07/13/16 07/14/16 15:28 23:29 08:15 WBC RBC Hgb POC Hgb Hct POC Hct MCH MCHC RDW Plt Count Lymph % (Auto) [place] % (Auto) Lymph # [place] # Baso # Seg Neutrophils % Seg Neuts % (Manual) Lymphocytes % (Manual) Monocytes % (Manual) Nucleated RBC % Seg Neutrophils # Seg Neutrophils # Man Lymphocytes # (Manual) Monocytes # (Manual) PT INR APTT Fibrinogen Heparin Anti-Xa Level POC ABG pH POC ABG pCO2 POC ABG pO2 POC Potassium POC Chloride Sodium Potassium Chloride Carbon Dioxide POC BUN BUN Creatinine Glucose POC Glucose 119 H 113 H 130 H Calcium Magnesium AST Alkaline Phosphatase Lactate Dehydrogenase Total Creatine Kinase Total Protein Albumin Urine WBC (Auto) Crossmatch 07/14/16 07/14/16 07/14/16 08:30 12:12 17:00 WBC RBC Hgb POC Hgb Hct POC Hct MCH MCHC RDW Plt Count Lymph % (Auto) [place] % (Auto) Lymph # [place] # Baso # Seg Neutrophils % Seg Neuts % (Manual) Lymphocytes % (Manual) Monocytes % (Manual) Nucleated RBC % Seg Neutrophils # Seg Neutrophils # Man Lymphocytes # (Manual) Monocytes # (Manual) PT INR APTT Fibrinogen Heparin Anti-Xa Level POC ABG pH POC ABG pCO2 POC ABG pO2 POC Potassium POC Chloride Sodium 135 L Potassium Chloride Carbon Dioxide POC BUN BUN Creatinine Glucose 113 H POC Glucose 115 H 119 H Calcium 7.8 L Magnesium AST Alkaline Phosphatase Lactate Dehydrogenase Total Creatine Kinase Total Protein Albumin Urine WBC (Auto) Crossmatch 07/14/16 07/15/16 07/15/16 Unknown 04:15 04:15 WBC 13.9 H 15.3 H RBC Hgb POC Hgb Hct POC Hct MCH MCHC RDW Plt Count Lymph % (Auto) 9.9 L 9.3 L [place] % (Auto) Lymph # [place] # 0.9 H Baso # Seg Neutrophils % 83.8 H 83.9 H Seg Neuts % (Manual) Lymphocytes % (Manual) Monocytes % (Manual) Nucleated RBC % Seg Neutrophils # 11.7 H 12.9 H Seg Neutrophils # Man Lymphocytes # (Manual) Monocytes # (Manual) PT INR APTT Fibrinogen Heparin Anti-Xa Level POC ABG pH POC ABG pCO2 POC ABG pO2 POC Potassium POC Chloride Sodium 131 L Potassium Chloride 96.5 L Carbon Dioxide POC BUN BUN Creatinine 0.6 L Glucose 104 H POC Glucose Calcium 8.0 L Magnesium AST Alkaline Phosphatase Lactate Dehydrogenase Total Creatine Kinase Total Protein Albumin Urine WBC (Auto) Crossmatch 07/15/16 07/15/16 07/15/16 11:29 16:06 22:05 WBC RBC Hgb POC Hgb Hct POC Hct MCH MCHC RDW Plt Count Lymph % (Auto) [place] % (Auto) Lymph # [place] # Baso # Seg Neutrophils % Seg Neuts % (Manual) Lymphocytes % (Manual) Monocytes % (Manual) Nucleated RBC % Seg Neutrophils # Seg Neutrophils # Man Lymphocytes # (Manual) Monocytes # (Manual) PT INR APTT Fibrinogen Heparin Anti-Xa Level POC ABG pH POC ABG pCO2 POC ABG pO2 POC Potassium POC Chloride Sodium Potassium Chloride Carbon Dioxide POC BUN BUN Creatinine Glucose POC Glucose 114 H 165 H 127 H Calcium Magnesium AST Alkaline Phosphatase Lactate Dehydrogenase Total Creatine Kinase Total Protein Albumin Urine WBC (Auto) Crossmatch 07/16/16 07/16/16 07/16/16 07:36 07:36 07:39 WBC RBC 2.86 L Hgb 8.5 L POC Hgb Hct 25.0 L D POC Hct MCH MCHC RDW Plt Count Lymph % (Auto) [place] % (Auto) 8.5 H Lymph # [place] # 0.9 H Baso # Seg Neutrophils % 77.7 H Seg Neuts % (Manual) Lymphocytes % (Manual) Monocytes % (Manual) Nucleated RBC % Seg Neutrophils # 8.5 H Seg Neutrophils # Man Lymphocytes # (Manual) Monocytes # (Manual) PT INR APTT Fibrinogen Heparin Anti-Xa Level POC ABG pH POC ABG pCO2 POC ABG pO2 POC Potassium POC Chloride Sodium 136 L Potassium Chloride Carbon Dioxide POC BUN BUN Creatinine 0.5 L Glucose 133 H POC Glucose 137 H Calcium 8.0 L Magnesium AST Alkaline Phosphatase Lactate Dehydrogenase Total Creatine Kinase Total Protein Albumin Urine WBC (Auto) Crossmatch 07/16/16 07/16/16 07/17/16 11:43 22:10 05:00 WBC 11.6 H RBC 2.95 L Hgb 8.5 L POC Hgb Hct 25.7 L POC Hct MCH MCHC RDW Plt Count Lymph % (Auto) [place] % (Auto) 8.4 H Lymph # [place] # 1.0 H Baso # Seg Neutrophils % 76.2 H Seg Neuts % (Manual) Lymphocytes % (Manual) Monocytes % (Manual) Nucleated RBC % Seg Neutrophils # 8.9 H Seg Neutrophils # Man Lymphocytes # (Manual) Monocytes # (Manual) PT INR APTT Fibrinogen Heparin Anti-Xa Level POC ABG pH POC ABG pCO2 POC ABG pO2 POC Potassium POC Chloride Sodium Potassium Chloride Carbon Dioxide POC BUN BUN Creatinine Glucose POC Glucose 154 H 140 H Calcium Magnesium AST Alkaline Phosphatase Lactate Dehydrogenase Total Creatine Kinase Total Protein Albumin Urine WBC (Auto) Crossmatch 07/17/16 07/17/16 07/17/16 05:00 07:32 12:27 WBC RBC Hgb POC Hgb Hct POC Hct MCH MCHC RDW Plt Count Lymph % (Auto) [place] % (Auto) Lymph # [place] # Baso # Seg Neutrophils % Seg Neuts % (Manual) Lymphocytes % (Manual) Monocytes % (Manual) Nucleated RBC % Seg Neutrophils # Seg Neutrophils # Man Lymphocytes # (Manual) Monocytes # (Manual) PT INR APTT Fibrinogen Heparin Anti-Xa Level POC ABG pH POC ABG pCO2 POC ABG pO2 POC Potassium POC Chloride Sodium Potassium Chloride Carbon Dioxide POC BUN BUN Creatinine 0.6 L Glucose 115 H POC Glucose 135 H 140 H Calcium Magnesium 1.4 L AST Alkaline Phosphatase Lactate Dehydrogenase Total Creatine Kinase Total Protein Albumin Urine WBC (Auto) Crossmatch 07/17/16 07/18/16 07/18/16 16:23 05:00 07:31 WBC RBC 2.67 L Hgb 7.7 L POC Hgb Hct 23.2 L POC Hct MCH MCHC RDW Plt Count 447 H Lymph % (Auto) [place] % (Auto) 8.5 H Lymph # [place] # Baso # Seg Neutrophils % 73.1 H Seg Neuts % (Manual) Lymphocytes % (Manual) Monocytes % (Manual) Nucleated RBC % Seg Neutrophils # Seg Neutrophils # Man Lymphocytes # (Manual) Monocytes # (Manual) PT INR APTT Fibrinogen Heparin Anti-Xa Level POC ABG pH POC ABG pCO2 POC ABG pO2 POC Potassium POC Chloride Sodium Potassium Chloride Carbon Dioxide POC BUN BUN Creatinine Glucose POC Glucose 127 H 119 H Calcium Magnesium AST Alkaline Phosphatase Lactate Dehydrogenase Total Creatine Kinase Total Protein Albumin Urine WBC (Auto) Crossmatch 07/18/16 07/18/16 07/19/16 11:45 16:56 05:00 WBC RBC 2.74 L Hgb 7.9 L POC Hgb Hct 24.0 L POC Hct MCH MCHC RDW Plt Count 471 H Lymph % (Auto) [place] % (Auto) 9.3 H Lymph # [place] # Baso # Seg Neutrophils % Seg Neuts % (Manual) Lymphocytes % (Manual) Monocytes % (Manual) Nucleated RBC % Seg Neutrophils # Seg Neutrophils # Man Lymphocytes # (Manual) Monocytes # (Manual) PT INR APTT Fibrinogen Heparin Anti-Xa Level POC ABG pH POC ABG pCO2 POC ABG pO2 POC Potassium POC Chloride Sodium Potassium Chloride Carbon Dioxide POC BUN BUN Creatinine Glucose POC Glucose 139 H 116 H Calcium Magnesium AST Alkaline Phosphatase Lactate Dehydrogenase Total Creatine Kinase Total Protein Albumin Urine WBC (Auto) Crossmatch 07/19/16 07/19/16 07/19/16 08:08 12:17 16:09 WBC RBC Hgb POC Hgb Hct POC Hct MCH MCHC RDW Plt Count Lymph % (Auto) [place] % (Auto) Lymph # [place] # Baso # Seg Neutrophils % Seg Neuts % (Manual) Lymphocytes % (Manual) Monocytes % (Manual) Nucleated RBC % Seg Neutrophils # Seg Neutrophils # Man Lymphocytes # (Manual) Monocytes # (Manual) PT INR APTT Fibrinogen Heparin Anti-Xa Level POC ABG pH POC ABG pCO2 POC ABG pO2 POC Potassium POC Chloride Sodium Potassium Chloride Carbon Dioxide POC BUN BUN Creatinine Glucose POC Glucose 128 H 117 H 132 H Calcium Magnesium AST Alkaline Phosphatase Lactate Dehydrogenase Total Creatine Kinase Total Protein Albumin Urine WBC (Auto) Crossmatch 07/19/16 07/20/16 07/21/16 21:39 21:41 11:30 WBC RBC Hgb POC Hgb Hct POC Hct MCH MCHC RDW Plt Count Lymph % (Auto) [place] % (Auto) Lymph # [place] # Baso # Seg Neutrophils % Seg Neuts % (Manual) Lymphocytes % (Manual) Monocytes % (Manual) Nucleated RBC % Seg Neutrophils # Seg Neutrophils # Man Lymphocytes # (Manual) Monocytes # (Manual) PT INR APTT Fibrinogen Heparin Anti-Xa Level POC ABG pH POC ABG pCO2 POC ABG pO2 POC Potassium POC Chloride Sodium Potassium Chloride Carbon Dioxide POC BUN BUN Creatinine Glucose POC Glucose 115 H 117 H 114 H Calcium Magnesium AST Alkaline Phosphatase Lactate Dehydrogenase Total Creatine Kinase Total Protein Albumin Urine WBC (Auto) Crossmatch 07/21/16 07/22/16 16:57 07:25 WBC RBC Hgb POC Hgb Hct POC Hct MCH MCHC RDW Plt Count Lymph % (Auto) [place] % (Auto) Lymph # [place] # Baso # Seg Neutrophils % Seg Neuts % (Manual) Lymphocytes % (Manual) Monocytes % (Manual) Nucleated RBC % Seg Neutrophils # Seg Neutrophils # Man Lymphocytes # (Manual) Monocytes # (Manual) PT INR APTT Fibrinogen Heparin Anti-Xa Level POC ABG pH POC ABG pCO2 POC ABG pO2 POC Potassium POC Chloride Sodium Potassium Chloride Carbon Dioxide POC BUN BUN Creatinine Glucose POC Glucose 187 H 108 H Calcium Magnesium AST Alkaline Phosphatase Lactate Dehydrogenase Total Creatine Kinase Total Protein Albumin Urine WBC (Auto) Crossmatch
[2016-07-24 05:33] LABS: Basophils % (Auto) 0.4 % (0.0-1.8); Eosinophils % (Auto) 0.3 % (0.0-4.3); Hemoglobin 7.6 gm/dl (10.1-14.3); Mean Corpuscular HGB Conc 33 % (30-34); Mean Corpuscular Hemoglobin 28 pg (28-32); Mean Corpuscular Volume 85 fl (79-97); Platelet Count 378 K/mm3 (140-440); Red Cell Distribution Width 15.3 % (13.2-15.2); White Blood Count 8.9 K/mm3 (4.5-11.0)
--- NOTE | 2016-07-24 08:32 | XRay Report ---
AP chest: There is a left pleural effusion and possible area of infiltrate or consolidation at the left base. The lungs otherwise appear clear. The heart is not enlarged. There is no vascular congestion. Compared to the prior study of July 19 the pulmonary and pleural findings are essentially the same. There has been interval removal of a right jugular venous line and placement of a left jugular venous line with its tip in the mid SVC. Impression: 1. Interval change in central line placements. 2. No change in left pleural effusion/consolidation.
--- NOTE | 2016-07-24 09:22 | Event Note ---
Date: 07/24/16 IRU F/U, s/p left AKA. Pt noted to have intermittent tacycardia; modA for bed mobility; maxA for transfers. Pre-cert remains in progress; multiple calls placed on yesterday to [facility] without response. Will continue to have wedding coordinator F/U.
--- NOTE | 2016-07-24 09:45 | Progress Note ---
Assessment and Plan Current antibiotics: Zosyn 4.5 grams IV q8h 07/08 --> Previous antibiotics: Zosyn 2.25 g IV q8h 06/21-06/24 Cefazolin perioperatively ASSESSMENT: Cande Ge is a 55-year-old female with severe peripheral vascular disease, type 2 DM with peripheral neuropathy and hypertension who was admitted to [facility] as an outpatient with left lower extremity pain at rest for her cutaneous intervention which was unsuccessful and subsequently underwent left femoral endarterectomy and left iliac stenting and left femoral-popliteal bypass on 06/16 , urgent thrombectomies on 06/20 and right femoral endarterectomy with patch angioplasty on 07/03. She also had 2 cardiac arrests on 06/20 requiring resuscitation and intubation. She developed evidence of a retroperitoneal hematoma and ureteral obstruction and underwent bilateral ureteral stenting on 06/27. She has had a low-grade fever and leukocytosis. Problem list: 1. 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 Severe peripheral vascular disease -Unsuccessful attempt at percutaneous left lower extremity revascularization 06/13 -Left femoral endarterectomy, left iliac stenting and left femoral-popliteal bypass on 06/16 -Left lower extremity thrombectomies on 06/20 -Right femoral endarterectomy with patch angioplasty on 07/03 -Status post left AKA 07/15 -with dehisced wound. 3. Leukocytosis -Likely reactive -Patient has multiple reasons for leukocytosis including retroperitoneal hematoma , GI bleeding and multiple surgeries -Status post left groin infection and infected Dacron patch -Resolved 4. Low-grade fever -Resolved 5. Right groin wound infection -Purulent material seen at surgery 07/15/16 6. Retroperitoneal hematoma -As seen on CT scan 06/27 -Resolving 7. Bilateral hydroureteronephrosis -Status post bilateral ureteral stenting 06/27 8. Status post cardiopulmonary arrests X 2 -06/20 -Mechanical ventilatory support until 07/05 9. REJI -Creatinine peaked at 4.8 on 06/27 -Likely secondary to ATN -Resolved 10. Anemia -Likely multifactorial secondary to bleeding and chronic disease 10. Type 2 DM PLAN: 1. Continue Zosyn ( stop date 08/15/16) 2. Continue local wound care 3. Plan 4 weeks of post-op antibiotics. 4. Continued supportive measures and close observation Subjective Date of service: 07/24/16 Principal diagnosis: Infected vascular graft; s/p cardiopulmonary arrest Interval history: Complains of hurting all over. Objective - Exam Narrative Exam: Continues afebrile. GENERAL: Well-developed, well-nourished appearing female who appears somewhat older than her stated age and appears chronically ill but is in no acute distress. HEAD: Normocephalic. No lesions seen. EYES: Pupils are equal reactive to light and accommodation. There is no scleral icterus. Optic fundi are not examined. EARS: No evidence of external drainage THROAT: Oropharynx is normal with no evidence of oral candidiasis or pharyngitis. Patient is edentulous. NECK: Supple. No enlargement of the thyroid gland. No significant cervical lymphadenopathy. No jugular venous distention at 60. Left IJ catheter in place LUNGS: Clear with no adventitious sounds. HEART: Regular rate with occasional extra beat heard. S1 and S2 are normal. There are no murmurs, gallops, clicks or rubs heard. ABDOMEN: Soft and nontender. Liver and spleen are not palpably enlarged or tender. No palpable masses. Bowel sounds are normoactive. EXTREMITIES: No peripheral lymphadenopathy or clubbing. SKIN: Open left stump wound, left groin wound, right inguinal wounds with Wound-vac. No surrounding redness or foul odor. NEUROLOGIC: No gross lateralizing findings. - Constitutional Vitals: Vital Signs Temp Pulse Resp BP Pulse Ox 98.9 F 105 H 18 127/61 98 07/24/16 08:00 07/24/16 08:00 07/24/16 08:00 07/24/16 08:00 07/24/16 08:00 Temperature -Last 24 Hours Temperature 98.9 F Temperature 99.7 F Temperature 98.7 F Temperature 98.9 F Temperature 99.7 F Temperature 98.2 F Temperature 99.4 F - Labs CBC & Chem 7: 07/24/16 05:00 07/17/16 05:00 Labs: Abnormal lab results 07/23/16 07/24/16 Range/Units 21:46 05:00 RBC 2.70 L (3.65-5.03) M/mm3 Hgb 7.6 L (10.1-14.3) gm/dl Hct 23.0 L (30.3-42.9) % RDW 15.3 H (13.2-15.2) % [place] % (Auto) 9.8 H (0.0-7.3) % [place] # 0.9 H (0.0-0.8) K/mm3 POC Glucose 116 H (70-105)
[2016-07-24] MEDS: NOVOLOG SUB-Q SCH ×2 (11:30→16:00)
--- NOTE | 2016-07-24 11:34 | Progress Note ---
Assessment and Plan Pt doing well. Educated nursing staff, about the importance of removing wound vac within 2 hrs of loss of seal (if it can not be fixed). Pt has been accepted to rehab. Will complete transfer orders. - Patient Problems (1) Atherosclerosis of [place] arteries of extremity with intermittent claudication Current Visit: Yes Status: Acute Subjective Date of service: 07/24/16 Principal diagnosis: Infected vascular graft; s/p cardiopulmonary arrest Interval history: Pt sleeping, but wakes easily. She's without complaint at present. Objective - Constitutional Vitals: Vital Signs - 12hr 07/24/16 07/24/16 07/24/16 00:00 00:30 01:35 Temperature 98.7 F Pulse Rate [ Apical] Pulse Rate [ 70 From Monitor] Respiratory 18 20 20 Rate Blood Pressure 116/80 [Left Arm] O2 Sat by Pulse 100 Oximetry 07/24/16 07/24/16 06:05 08:00 Temperature 99.7 F H 98.9 F Pulse Rate [ 105 H Apical] Pulse Rate [ 114 H From Monitor] Respiratory 20 18 Rate Blood Pressure 118/73 127/61 [Left Arm] O2 Sat by Pulse 100 98 Oximetry General appearance: Present: no acute distress - EENT Eyes: EOM intact ENT: hearing intact - Neck Neck: supple - Respiratory Respiratory effort: normal Extremities: normal temperature, abnormal (incisions, Vac in place but without suction.) - Neurologic Neurologic: other (decreased motor fxn to right foot) - Psychiatric Psychiatric: appropriate mood/affect, cooperative - Labs CBC & Chem 7: 07/24/16 05:00 07/17/16 05:00 Labs: Abnormal lab results 07/23/16 07/24/16 07/24/16 Range/Units 21:46 05:00 11:22 RBC 2.70 L (3.65-5.03) M/mm3 Hgb 7.6 L (10.1-14.3) gm/dl Hct 23.0 L (30.3-42.9) % RDW 15.3 H (13.2-15.2) % [place] % (Auto) 9.8 H (0.0-7.3) % [place] # 0.9 H (0.0-0.8) K/mm3 POC Glucose 116 H 161 H (70-105)
[2016-07-24] MEDS: MORPHINE IV PRN ×2 (11:53)
--- NOTE | 2016-07-24 11:54 | Progress Note ---
Assessment and Plan - Patient Problems (1) Peripheral vascular disease of extremity Current Visit: Yes Status: Acute (2) Acute respiratory failure Current Visit: Yes Status: Acute (3) Anemia Current Visit: Yes Status: Acute (4) Altered mental status Current Visit: Yes Status: Acute Subjective Date of service: 07/24/16 Principal diagnosis: Infected vascular graft; s/p cardiopulmonary arrest Interval history: seen and examined at bedside; 24hour events reviewed; nursing and respiratory care staff consulted; no adverse overnight events reported to me; Objective Vital Signs - 12hr 07/24/16 07/24/16 07/24/16 00:00 00:30 01:35 Temperature 98.7 F Pulse Rate [ Apical] Pulse Rate [ 70 From Monitor] Respiratory 18 20 20 Rate Blood Pressure 116/80 [Left Arm] O2 Sat by Pulse 100 Oximetry 07/24/16 07/24/16 06:05 08:00 Temperature 99.7 F H 98.9 F Pulse Rate [ 105 H Apical] Pulse Rate [ 114 H From Monitor] Respiratory 20 18 Rate Blood Pressure 118/73 127/61 [Left Arm] O2 Sat by Pulse 100 98 Oximetry Constitutional: no acute distress, alert Eyes: non-icteric ENT: oropharynx moist Neck: supple, no lymphadenopathy Effort: normal Ascultation: Left: diminished breath sounds (base), Bilateral: clear, rhonchi ( posterior bases) Cardiovascular: regular rate and rhythm Gastrointestinal: normoactive bowel sounds, soft, non-tender, non-distended Integumentary: other (weak LLExt) Extremities: other (s/p left AKA) Neurologic: normal mental status, non-focal exam, pupils equal and round Psychiatric: mood appropriate, affect normal CBC and BMP: 07/24/16 05:00 07/17/16 05:00 ABG, PT/INR, D-dimer: ABG POC ABG pH 7.436 (7.35-7.45) 07/04/16 16:49 POC ABG pCO2 31.1 (35-45) L 07/04/16 16:49 POC ABG pO2 110 (80-105) H 07/04/16 16:49 POC ABG HCO3 20.9 07/04/16 16:49 POC ABG Total CO2 22 07/04/16 16:49 POC ABG O2 Sat 99 07/04/16 16:49 PT/INR, D-dimer PT 19.9 Sec. (12.2-14.9) H 06/26/16 22:57 INR 1.69 (0.87-1.13) H 06/26/16 22:57 Abnormal lab findings: Abnormal Labs 06/13/16 06/13/16 06/13/16 09:45 09:45 09:45 WBC RBC Hgb POC Hgb Hct POC Hct MCH 25 L MCHC RDW 15.8 H Plt Count Lymph % (Auto) [place] % (Auto) 8.1 H Lymph # [place] # Baso # Seg Neutrophils % Seg Neuts % (Manual) Lymphocytes % (Manual) Monocytes % (Manual) Nucleated RBC % Seg Neutrophils # Seg Neutrophils # Man Lymphocytes # (Manual) Monocytes # (Manual) PT INR APTT Fibrinogen 522 H Heparin Anti-Xa Level POC ABG pH POC ABG pCO2 POC ABG pO2 POC Potassium POC Chloride Sodium Potassium Chloride Carbon Dioxide POC BUN BUN Creatinine Glucose POC Glucose Calcium 10.3 H Magnesium AST Alkaline Phosphatase Lactate Dehydrogenase Total Creatine Kinase Total Protein Albumin Urine WBC (Auto) Crossmatch 06/13/16 06/13/16 06/13/16 09:45 20:14 20:15 WBC RBC Hgb POC Hgb Hct POC Hct MCH MCHC RDW Plt Count Lymph % (Auto) [place] % (Auto) Lymph # [place] # Baso # Seg Neutrophils % Seg Neuts % (Manual) Lymphocytes % (Manual) Monocytes % (Manual) Nucleated RBC % Seg Neutrophils # Seg Neutrophils # Man Lymphocytes # (Manual) Monocytes # (Manual) PT INR APTT 103.8 H* Fibrinogen Heparin Anti-Xa Level 0.72 H POC ABG pH POC ABG pCO2 POC ABG pO2 POC Potassium POC Chloride Sodium Potassium Chloride Carbon Dioxide POC BUN BUN Creatinine Glucose POC Glucose Calcium Magnesium AST Alkaline Phosphatase Lactate Dehydrogenase Total Creatine Kinase Total Protein Albumin Urine WBC (Auto) Crossmatch See Detail 06/14/16 06/14/16 06/14/16 07:44 10:18 19:09 WBC RBC Hgb POC Hgb Hct POC Hct MCH 26 L MCHC RDW 15.8 H Plt Count Lymph % (Auto) [place] % (Auto) 9.1 H Lymph # [place] # Baso # Seg Neutrophils % Seg Neuts % (Manual) Lymphocytes % (Manual) Monocytes % (Manual) Nucleated RBC % Seg Neutrophils # Seg Neutrophils # Man Lymphocytes # (Manual) Monocytes # (Manual) PT INR APTT Fibrinogen Heparin Anti-Xa Level 0.76 H POC ABG pH POC ABG pCO2 POC ABG pO2 POC Potassium POC Chloride Sodium Potassium Chloride Carbon Dioxide POC BUN BUN Creatinine Glucose POC Glucose 106 H Calcium Magnesium AST Alkaline Phosphatase Lactate Dehydrogenase Total Creatine Kinase Total Protein Albumin Urine WBC (Auto) Crossmatch 06/15/16 06/15/16 06/15/16 04:43 04:43 22:49 WBC RBC Hgb 9.2 L POC Hgb Hct 28.4 L POC Hct MCH MCHC RDW Plt Count Lymph % (Auto) [place] % (Auto) Lymph # [place] # Baso # Seg Neutrophils % Seg Neuts % (Manual) Lymphocytes % (Manual) Monocytes % (Manual) Nucleated RBC % Seg Neutrophils # Seg Neutrophils # Man Lymphocytes # (Manual) Monocytes # (Manual) PT INR APTT Fibrinogen Heparin Anti-Xa Level 0.85 H POC ABG pH POC ABG pCO2 POC ABG pO2 POC Potassium POC Chloride Sodium Potassium Chloride Carbon Dioxide POC BUN BUN Creatinine Glucose POC Glucose 134 H Calcium Magnesium AST Alkaline Phosphatase Lactate Dehydrogenase Total Creatine Kinase Total Protein Albumin Urine WBC (Auto) Crossmatch 06/16/16 06/16/16 06/16/16 08:55 08:55 14:21 WBC RBC Hgb POC Hgb 5.8 L Hct POC Hct 17 L MCH MCHC RDW Plt Count Lymph % (Auto) [place] % (Auto) Lymph # [place] # Baso # Seg Neutrophils % Seg Neuts % (Manual) Lymphocytes % (Manual) Monocytes % (Manual) Nucleated RBC % Seg Neutrophils # Seg Neutrophils # Man Lymphocytes # (Manual) Monocytes # (Manual) PT INR APTT 20.0 L Fibrinogen Heparin Anti-Xa Level POC ABG pH POC ABG pCO2 POC ABG pO2 POC Potassium 2.9 L POC Chloride Sodium Potassium Chloride Carbon Dioxide POC BUN 7 L BUN Creatinine Glucose POC Glucose 249 H Calcium Magnesium AST Alkaline Phosphatase Lactate Dehydrogenase Total Creatine Kinase Total Protein Albumin Urine WBC (Auto) Crossmatch See Detail 06/16/16 06/16/16 06/16/16 16:55 17:41 17:48 WBC RBC Hgb POC Hgb 8.8 L Hct POC Hct 26 L < 15 L MCH MCHC RDW Plt Count Lymph % (Auto) [place] % (Auto) Lymph # [place] # Baso # Seg Neutrophils % Seg Neuts % (Manual) Lymphocytes % (Manual) Monocytes % (Manual) Nucleated RBC % Seg Neutrophils # Seg Neutrophils # Man Lymphocytes # (Manual) Monocytes # (Manual) PT INR APTT Fibrinogen Heparin Anti-Xa Level POC ABG pH 7.031 L POC ABG pCO2 POC ABG pO2 475 H POC Potassium 3.2 L POC Chloride 112 H 114 H Sodium Potassium Chloride Carbon Dioxide POC BUN 7 L 7 L BUN Creatinine Glucose POC Glucose 203 H 291 H Calcium Magnesium AST Alkaline Phosphatase Lactate Dehydrogenase Total Creatine Kinase Total Protein Albumin Urine WBC (Auto) Crossmatch 06/16/16 06/16/16 06/16/16 18:07 19:09 20:10 WBC 15.8 H RBC Hgb POC Hgb 6.5 L Hct POC Hct 19 L MCH MCHC RDW Plt Count 38 L Lymph % (Auto) 5.9 L [place] % (Auto) 9.3 H Lymph # 0.9 L [place] # 1.5 H Baso # Seg Neutrophils % 84.6 H Seg Neuts % (Manual) Lymphocytes % (Manual) Monocytes % (Manual) Nucleated RBC % Seg Neutrophils # 13.3 H Seg Neutrophils # Man Lymphocytes # (Manual) Monocytes # (Manual) PT INR APTT Fibrinogen Heparin Anti-Xa Level POC ABG pH POC ABG pCO2 POC ABG pO2 POC Potassium POC Chloride 113 H Sodium Potassium Chloride Carbon Dioxide POC BUN 7 L BUN Creatinine Glucose POC Glucose 263 H 231 H Calcium Magnesium AST Alkaline Phosphatase Lactate Dehydrogenase Total Creatine Kinase Total Protein Albumin Urine WBC (Auto) Crossmatch 06/16/16 06/16/16 06/16/16 20:10 20:18 21:10 WBC RBC Hgb POC Hgb Hct POC Hct MCH MCHC RDW Plt Count Lymph % (Auto) [place] % (Auto) Lymph # [place] # Baso # Seg Neutrophils % Seg Neuts % (Manual) Lymphocytes % (Manual) Monocytes % (Manual) Nucleated RBC % Seg Neutrophils # Seg Neutrophils # Man Lymphocytes # (Manual) Monocytes # (Manual) PT INR APTT Fibrinogen Heparin Anti-Xa Level POC ABG pH 7.236 L 7.280 L POC ABG pCO2 POC ABG pO2 139 H 145 H POC Potassium POC Chloride Sodium Potassium 3.4 L Chloride 114.5 H Carbon Dioxide 17 L D POC BUN BUN Creatinine Glucose 188 H POC Glucose Calcium 6.1 L D Magnesium AST Alkaline Phosphatase Lactate Dehydrogenase Total Creatine Kinase Total Protein Albumin Urine WBC (Auto) Crossmatch 06/16/16 06/17/16 06/17/16 22:53 04:48 05:35 WBC RBC Hgb POC Hgb Hct POC Hct MCH MCHC RDW Plt Count Lymph % (Auto) [place] % (Auto) Lymph # [place] # Baso # Seg Neutrophils % Seg Neuts % (Manual) Lymphocytes % (Manual) Monocytes % (Manual) Nucleated RBC % Seg Neutrophils # Seg Neutrophils # Man Lymphocytes # (Manual) Monocytes # (Manual) PT INR APTT Fibrinogen Heparin Anti-Xa Level POC ABG pH POC ABG pCO2 33.9 L 22.2 L POC ABG pO2 152 H 154 H POC Potassium POC Chloride Sodium 150 H Potassium 3.4 L Chloride 114.2 H Carbon Dioxide 16 L POC BUN BUN Creatinine Glucose 221 H POC Glucose Calcium 7.6 L D Magnesium AST Alkaline Phosphatase Lactate Dehydrogenase Total Creatine Kinase Total Protein Albumin Urine WBC (Auto) Crossmatch 06/17/16 06/18/16 06/18/16 09:22 07:26 08:25 WBC 20.3 H RBC 3.41 L Hgb 9.9 L POC Hgb Hct 29.7 L POC Hct MCH MCHC RDW Plt Count Lymph % (Auto) [place] % (Auto) Lymph # [place] # Baso # Seg Neutrophils % Seg Neuts % (Manual) 81.0 H Lymphocytes % (Manual) 6.0 L Monocytes % (Manual) 12.0 H Nucleated RBC % Seg Neutrophils # Seg Neutrophils # Man 16.4 H Lymphocytes # (Manual) Monocytes # (Manual) 2.4 H PT INR APTT Fibrinogen Heparin Anti-Xa Level POC ABG pH POC ABG pCO2 POC ABG pO2 POC Potassium POC Chloride Sodium Potassium 3.1 L Chloride Carbon Dioxide POC BUN BUN Creatinine Glucose 136 H POC Glucose 141 H Calcium 7.5 L Magnesium AST Alkaline Phosphatase Lactate Dehydrogenase Total Creatine Kinase Total Protein Albumin Urine WBC (Auto) Crossmatch 06/18/16 06/18/16 06/18/16 08:25 11:09 19:40 WBC RBC Hgb 6.5 L D POC Hgb Hct 19.3 L* D POC Hct MCH MCHC RDW Plt Count 131 L Lymph % (Auto) [place] % (Auto) Lymph # [place] # Baso # Seg Neutrophils % Seg Neuts % (Manual) Lymphocytes % (Manual) Monocytes % (Manual) Nucleated RBC % Seg Neutrophils # Seg Neutrophils # Man Lymphocytes # (Manual) Monocytes # (Manual) PT INR APTT Fibrinogen Heparin Anti-Xa Level POC ABG pH 7.490 H POC ABG pCO2 POC ABG pO2 131 H POC Potassium POC Chloride Sodium Potassium Chloride Carbon Dioxide POC BUN BUN Creatinine Glucose POC Glucose 125 H Calcium Magnesium AST Alkaline Phosphatase Lactate Dehydrogenase Total Creatine Kinase Total Protein Albumin Urine WBC (Auto) Crossmatch 06/18/16 06/19/16 06/19/16 21:10 07:07 07:28 WBC 13.6 H RBC 2.17 L Hgb 6.5 L POC Hgb Hct 18.8 L* POC Hct MCH MCHC 35 H RDW Plt Count 131 L Lymph % (Auto) 10.1 L [place] % (Auto) 9.3 H Lymph # [place] # 1.3 H Baso # Seg Neutrophils % 79.7 H Seg Neuts % (Manual) Lymphocytes % (Manual) Monocytes % (Manual) Nucleated RBC % Seg Neutrophils # 10.8 H Seg Neutrophils # Man Lymphocytes # (Manual) Monocytes # (Manual) PT INR APTT Fibrinogen Heparin Anti-Xa Level 0.75 H POC ABG pH POC ABG pCO2 POC ABG pO2 POC Potassium POC Chloride Sodium Potassium 3.5 L Chloride Carbon Dioxide POC BUN BUN Creatinine Glucose 104 H POC Glucose Calcium 7.6 L Magnesium 1.4 L AST Alkaline Phosphatase Lactate Dehydrogenase Total Creatine Kinase Total Protein Albumin Urine WBC (Auto) Crossmatch 06/20/16 06/20/16 06/20/16 04:15 18:15 18:15 WBC 16.6 H RBC 1.19 L Hgb 9.2 L 3.5 L* D POC Hgb Hct 27.5 L D 11.0 L* D POC Hct MCH MCHC RDW Plt Count 138 L Lymph % (Auto) [place] % (Auto) Lymph # [place] # Baso # Seg Neutrophils % Seg Neuts % (Manual) Lymphocytes % (Manual) Monocytes % (Manual) Nucleated RBC % Seg Neutrophils # Seg Neutrophils # Man Lymphocytes # (Manual) Monocytes # (Manual) PT INR APTT Fibrinogen Heparin Anti-Xa Level POC ABG pH POC ABG pCO2 POC ABG pO2 POC Potassium POC Chloride Sodium 146 H Potassium Chloride Carbon Dioxide 14 L D POC BUN BUN Creatinine Glucose 31 L* POC Glucose Calcium 6.7 L Magnesium AST Alkaline Phosphatase Lactate Dehydrogenase Total Creatine Kinase Total Protein Albumin Urine WBC (Auto) Crossmatch 06/20/16 06/20/16 06/20/16 18:15 19:33 19:36 WBC RBC Hgb POC Hgb Hct POC Hct MCH MCHC RDW Plt Count Lymph % (Auto) [place] % (Auto) Lymph # [place] # Baso # Seg Neutrophils % Seg Neuts % (Manual) Lymphocytes % (Manual) Monocytes % (Manual) Nucleated RBC % Seg Neutrophils # Seg Neutrophils # Man Lymphocytes # (Manual) Monocytes # (Manual) PT INR APTT Fibrinogen Heparin Anti-Xa Level POC ABG pH POC ABG pCO2 26.3 L POC ABG pO2 394 H POC Potassium POC Chloride Sodium Potassium Chloride Carbon Dioxide POC BUN BUN Creatinine Glucose POC Glucose 212 H Calcium Magnesium AST Alkaline Phosphatase Lactate Dehydrogenase Total Creatine Kinase Total Protein Albumin Urine WBC (Auto) Crossmatch See Detail 06/20/16 06/20/16 06/21/16 22:01 23:00 00:35 WBC RBC Hgb POC Hgb Hct POC Hct MCH MCHC RDW Plt Count Lymph % (Auto) [place] % (Auto) Lymph # [place] # Baso # Seg Neutrophils % Seg Neuts % (Manual) Lymphocytes % (Manual) Monocytes % (Manual) Nucleated RBC % Seg Neutrophils # Seg Neutrophils # Man Lymphocytes # (Manual) Monocytes # (Manual) PT 21.3 H INR 1.85 H APTT 48.4 H Fibrinogen Heparin Anti-Xa Level POC ABG pH POC ABG pCO2 POC ABG pO2 POC Potassium POC Chloride Sodium Potassium Chloride Carbon Dioxide POC BUN BUN Creatinine Glucose POC Glucose 149 H 147 H Calcium Magnesium AST Alkaline Phosphatase Lactate Dehydrogenase Total Creatine Kinase Total Protein Albumin Urine WBC (Auto) Crossmatch 06/21/16 06/21/16 06/21/16 04:30 04:30 06:01 WBC 21.7 H RBC 3.58 L Hgb POC Hgb Hct POC Hct MCH MCHC 35 H RDW Plt Count 116 L Lymph % (Auto) [place] % (Auto) Lymph # [place] # Baso # Seg Neutrophils % Seg Neuts % (Manual) Lymphocytes % (Manual) 8.0 L Monocytes % (Manual) Nucleated RBC % 3.0 H Seg Neutrophils # Seg Neutrophils # Man 13.7 H Lymphocytes # (Manual) Monocytes # (Manual) 1.5 H PT INR APTT Fibrinogen Heparin Anti-Xa Level POC ABG pH 7.541 H POC ABG pCO2 21.1 L POC ABG pO2 108 H POC Potassium POC Chloride Sodium Potassium 3.0 L Chloride 110.3 H Carbon Dioxide 18 L POC BUN BUN 18 H Creatinine Glucose 141 H POC Glucose Calcium 6.4 L Magnesium AST Alkaline Phosphatase Lactate Dehydrogenase Total Creatine Kinase Total Protein Albumin Urine WBC (Auto) Crossmatch 06/21/16 06/21/16 06/21/16 07:00 10:02 17:51 WBC RBC Hgb 8.3 L POC Hgb Hct 24.7 L D POC Hct MCH MCHC RDW Plt Count Lymph % (Auto) [place] % (Auto) Lymph # [place] # Baso # Seg Neutrophils % Seg Neuts % (Manual) Lymphocytes % (Manual) Monocytes % (Manual) Nucleated RBC % Seg Neutrophils # Seg Neutrophils # Man Lymphocytes # (Manual) Monocytes # (Manual) PT INR APTT Fibrinogen Heparin Anti-Xa Level POC ABG pH POC ABG pCO2 POC ABG pO2 POC Potassium POC Chloride Sodium Potassium Chloride Carbon Dioxide POC BUN BUN Creatinine Glucose POC Glucose 132 H 106 H Calcium Magnesium AST Alkaline Phosphatase Lactate Dehydrogenase Total Creatine Kinase Total Protein Albumin Urine WBC (Auto) Crossmatch 06/22/16 06/22/16 06/22/16 05:00 05:00 06:40 WBC 20.6 H RBC 3.54 L Hgb POC Hgb Hct POC Hct MCH MCHC RDW Plt Count 129 L Lymph % (Auto) [place] % (Auto) Lymph # [place] # Baso # Seg Neutrophils % Seg Neuts % (Manual) 87.0 H Lymphocytes % (Manual) 4.0 L Monocytes % (Manual) Nucleated RBC % 4.0 H Seg Neutrophils # Seg Neutrophils # Man 17.9 H Lymphocytes # (Manual) 0.8 L Monocytes # (Manual) 1.2 H PT INR APTT Fibrinogen Heparin Anti-Xa Level POC ABG pH POC ABG pCO2 21.9 L POC ABG pO2 118 H POC Potassium POC Chloride Sodium Potassium Chloride 109.9 H Carbon Dioxide 15 L POC BUN BUN 26 H Creatinine 2.2 H D Glucose POC Glucose Calcium 6.3 L Magnesium AST Alkaline Phosphatase Lactate Dehydrogenase Total Creatine Kinase Total Protein Albumin Urine WBC (Auto) Crossmatch 06/22/16 06/22/16 06/22/16 09:15 09:15 23:17 WBC RBC Hgb 9.1 L POC Hgb Hct 26.9 L POC Hct MCH MCHC RDW Plt Count 116 L Lymph % (Auto) [place] % (Auto) Lymph # [place] # Baso # Seg Neutrophils % Seg Neuts % (Manual) Lymphocytes % (Manual) Monocytes % (Manual) Nucleated RBC % Seg Neutrophils # Seg Neutrophils # Man Lymphocytes # (Manual) Monocytes # (Manual) PT 15.8 H INR 1.27 H APTT Fibrinogen Heparin Anti-Xa Level POC ABG pH POC ABG pCO2 POC ABG pO2 POC Potassium POC Chloride Sodium Potassium Chloride Carbon Dioxide POC BUN BUN Creatinine Glucose POC Glucose 134 H Calcium Magnesium AST Alkaline Phosphatase Lactate Dehydrogenase Total Creatine Kinase Total Protein Albumin Urine WBC (Auto) Crossmatch 06/23/16 06/23/16 06/23/16 05:43 05:43 09:44 WBC 13.8 H RBC 2.70 L Hgb 8.1 L POC Hgb Hct 24.2 L POC Hct MCH MCHC RDW Plt Count 93 L Lymph % (Auto) 6.2 L [place] % (Auto) Lymph # 0.9 L [place] # Baso # Seg Neutrophils % 89.2 H Seg Neuts % (Manual) Lymphocytes % (Manual) Monocytes % (Manual) Nucleated RBC % Seg Neutrophils # 12.3 H Seg Neutrophils # Man Lymphocytes # (Manual) Monocytes # (Manual) PT INR APTT Fibrinogen Heparin Anti-Xa Level POC ABG pH 7.593 H POC ABG pCO2 26.8 L POC ABG pO2 141 H POC Potassium POC Chloride Sodium 146 H Potassium Chloride Carbon Dioxide POC BUN BUN 32 H Creatinine 2.6 H Glucose 142 H POC Glucose Calcium 7.0 L Magnesium AST Alkaline Phosphatase Lactate Dehydrogenase Total Creatine Kinase Total Protein Albumin Urine WBC (Auto) Crossmatch 06/23/16 06/23/16 06/23/16 11:23 17:42 23:32 WBC RBC Hgb POC Hgb Hct POC Hct MCH MCHC RDW Plt Count Lymph % (Auto) [place] % (Auto) Lymph # [place] # Baso # Seg Neutrophils % Seg Neuts % (Manual) Lymphocytes % (Manual) Monocytes % (Manual) Nucleated RBC % Seg Neutrophils # Seg Neutrophils # Man Lymphocytes # (Manual) Monocytes # (Manual) PT INR APTT Fibrinogen Heparin Anti-Xa Level POC ABG pH POC ABG pCO2 POC ABG pO2 POC Potassium POC Chloride Sodium Potassium Chloride Carbon Dioxide POC BUN BUN Creatinine Glucose POC Glucose 138 H 133 H 111 H Calcium Magnesium AST Alkaline Phosphatase Lactate Dehydrogenase Total Creatine Kinase Total Protein Albumin Urine WBC (Auto) Crossmatch 06/24/16 06/24/16 06/24/16 06:27 08:10 08:10 WBC 16.6 H RBC 2.91 L Hgb 8.9 L POC Hgb Hct 26.4 L POC Hct MCH MCHC RDW 15.6 H Plt Count 115 L Lymph % (Auto) 4.6 L [place] % (Auto) Lymph # 0.8 L [place] # 1.0 H Baso # Seg Neutrophils % 89.2 H Seg Neuts % (Manual) Lymphocytes % (Manual) Monocytes % (Manual) Nucleated RBC % Seg Neutrophils # 14.9 H Seg Neutrophils # Man Lymphocytes # (Manual) Monocytes # (Manual) PT INR APTT Fibrinogen Heparin Anti-Xa Level POC ABG pH POC ABG pCO2 POC ABG pO2 POC Potassium POC Chloride Sodium 146 H Potassium Chloride Carbon Dioxide POC BUN BUN 37 H Creatinine 2.9 H Glucose POC Glucose 109 H Calcium 7.5 L Magnesium AST Alkaline Phosphatase Lactate Dehydrogenase Total Creatine Kinase Total Protein Albumin Urine WBC (Auto) Crossmatch 06/24/16 06/24/16 06/24/16 12:05 17:57 22:13 WBC RBC Hgb POC Hgb Hct POC Hct MCH MCHC RDW Plt Count Lymph % (Auto) [place] % (Auto) Lymph # [place] # Baso # Seg Neutrophils % Seg Neuts % (Manual) Lymphocytes % (Manual) Monocytes % (Manual) Nucleated RBC % Seg Neutrophils # Seg Neutrophils # Man Lymphocytes # (Manual) Monocytes # (Manual) PT INR APTT Fibrinogen Heparin Anti-Xa Level POC ABG pH POC ABG pCO2 POC ABG pO2 POC Potassium POC Chloride Sodium Potassium Chloride Carbon Dioxide POC BUN BUN Creatinine Glucose POC Glucose 117 H 124 H 116 H Calcium Magnesium AST Alkaline Phosphatase Lactate Dehydrogenase Total Creatine Kinase Total Protein Albumin Urine WBC (Auto) Crossmatch 06/25/16 06/25/16 06/25/16 06:42 06:49 12:14 WBC RBC Hgb POC Hgb Hct POC Hct MCH MCHC RDW Plt Count Lymph % (Auto) [place] % (Auto) Lymph # [place] # Baso # Seg Neutrophils % Seg Neuts % (Manual) Lymphocytes % (Manual) Monocytes % (Manual) Nucleated RBC % Seg Neutrophils # Seg Neutrophils # Man Lymphocytes # (Manual) Monocytes # (Manual) PT INR APTT Fibrinogen Heparin Anti-Xa Level POC ABG pH POC ABG pCO2 POC ABG pO2 POC Potassium POC Chloride Sodium Potassium Chloride Carbon Dioxide POC BUN BUN 46 H Creatinine 3.6 H Glucose 133 H POC Glucose 137 H 136 H Calcium 7.4 L Magnesium AST Alkaline Phosphatase Lactate Dehydrogenase Total Creatine Kinase Total Protein Albumin Urine WBC (Auto) Crossmatch 06/25/16 06/25/16 06/26/16 16:07 21:32 05:55 WBC RBC Hgb POC Hgb Hct POC Hct MCH MCHC RDW Plt Count Lymph % (Auto) [place] % (Auto) Lymph # [place] # Baso # Seg Neutrophils % Seg Neuts % (Manual) Lymphocytes % (Manual) Monocytes % (Manual) Nucleated RBC % Seg Neutrophils # Seg Neutrophils # Man Lymphocytes # (Manual) Monocytes # (Manual) PT INR APTT Fibrinogen Heparin Anti-Xa Level POC ABG pH POC ABG pCO2 POC ABG pO2 POC Potassium POC Chloride Sodium Potassium Chloride Carbon Dioxide 20 L POC BUN BUN 55 H Creatinine 4.2 H Glucose 120 H POC Glucose 146 H 146 H Calcium 7.5 L Magnesium AST Alkaline Phosphatase Lactate Dehydrogenase Total Creatine Kinase Total Protein Albumin Urine WBC (Auto) Crossmatch 06/26/16 06/26/16 06/26/16 06:30 11:38 16:45 WBC RBC Hgb POC Hgb Hct POC Hct MCH MCHC RDW Plt Count Lymph % (Auto) [place] % (Auto) Lymph # [place] # Baso # Seg Neutrophils % Seg Neuts % (Manual) Lymphocytes % (Manual) Monocytes % (Manual) Nucleated RBC % Seg Neutrophils # Seg Neutrophils # Man Lymphocytes # (Manual) Monocytes # (Manual) PT INR APTT Fibrinogen Heparin Anti-Xa Level POC ABG pH POC ABG pCO2 POC ABG pO2 POC Potassium POC Chloride Sodium Potassium Chloride Carbon Dioxide POC BUN BUN Creatinine Glucose POC Glucose 128 H 143 H 121 H Calcium Magnesium AST Alkaline Phosphatase Lactate Dehydrogenase Total Creatine Kinase Total Protein Albumin Urine WBC (Auto) Crossmatch 06/26/16 06/26/16 06/27/16 22:57 22:57 00:47 WBC RBC Hgb 8.4 L POC Hgb Hct 25.1 L POC Hct MCH MCHC RDW Plt Count Lymph % (Auto) [place] % (Auto) Lymph # [place] # Baso # Seg Neutrophils % Seg Neuts % (Manual) Lymphocytes % (Manual) Monocytes % (Manual) Nucleated RBC % Seg Neutrophils # Seg Neutrophils # Man Lymphocytes # (Manual) Monocytes # (Manual) PT 19.9 H INR 1.69 H APTT Fibrinogen Heparin Anti-Xa Level POC ABG pH POC ABG pCO2 POC ABG pO2 POC Potassium POC Chloride Sodium Potassium Chloride Carbon Dioxide POC BUN BUN Creatinine Glucose POC Glucose 110 H Calcium Magnesium AST Alkaline Phosphatase Lactate Dehydrogenase Total Creatine Kinase Total Protein Albumin Urine WBC (Auto) Crossmatch 06/27/16 06/27/16 06/27/16 05:43 05:43 06:40 WBC RBC Hgb POC Hgb Hct POC Hct MCH MCHC RDW Plt Count Lymph % (Auto) [place] % (Auto) Lymph # [place] # Baso # Seg Neutrophils % Seg Neuts % (Manual) Lymphocytes % (Manual) Monocytes % (Manual) Nucleated RBC % Seg Neutrophils # Seg Neutrophils # Man Lymphocytes # (Manual) Monocytes # (Manual) PT INR APTT Fibrinogen Heparin Anti-Xa Level 2.00 H POC ABG pH POC ABG pCO2 POC ABG pO2 POC Potassium POC Chloride Sodium Potassium Chloride Carbon Dioxide 20 L POC BUN BUN 58 H Creatinine 4.8 H Glucose POC Glucose 109 H Calcium 8.1 L Magnesium AST Alkaline Phosphatase Lactate Dehydrogenase Total Creatine Kinase Total Protein Albumin Urine WBC (Auto) Crossmatch 06/27/16 06/27/16 06/27/16 08:15 16:46 17:47 WBC RBC Hgb POC Hgb Hct POC Hct MCH MCHC RDW Plt Count Lymph % (Auto) [place] % (Auto) Lymph # [place] # Baso # Seg Neutrophils % Seg Neuts % (Manual) Lymphocytes % (Manual) Monocytes % (Manual) Nucleated RBC % Seg Neutrophils # Seg Neutrophils # Man Lymphocytes # (Manual) Monocytes # (Manual) PT INR APTT Fibrinogen Heparin Anti-Xa Level > 2.00 H 1.87 H POC ABG pH POC ABG pCO2 POC ABG pO2 POC Potassium POC Chloride Sodium Potassium Chloride Carbon Dioxide POC BUN BUN Creatinine Glucose POC Glucose 231 H Calcium Magnesium AST Alkaline Phosphatase Lactate Dehydrogenase Total Creatine Kinase Total Protein Albumin Urine WBC (Auto) Crossmatch 06/27/16 06/27/16 06/28/16 21:23 23:54 06:27 WBC RBC Hgb POC Hgb Hct POC Hct MCH MCHC RDW Plt Count Lymph % (Auto) [place] % (Auto) Lymph # [place] # Baso # Seg Neutrophils % Seg Neuts % (Manual) Lymphocytes % (Manual) Monocytes % (Manual) Nucleated RBC % Seg Neutrophils # Seg Neutrophils # Man Lymphocytes # (Manual) Monocytes # (Manual) PT INR APTT Fibrinogen Heparin Anti-Xa Level 1.70 H POC ABG pH POC ABG pCO2 POC ABG pO2 POC Potassium POC Chloride Sodium Potassium Chloride Carbon Dioxide POC BUN BUN 62 H Creatinine 4.5 H Glucose 111 H POC Glucose 122 H Calcium 8.3 L Magnesium AST Alkaline Phosphatase Lactate Dehydrogenase Total Creatine Kinase Total Protein Albumin Urine WBC (Auto) Crossmatch 06/28/16 06/28/16 06/28/16 06:27 11:47 14:14 WBC RBC Hgb 7.7 L POC Hgb Hct 22.9 L POC Hct MCH MCHC RDW Plt Count Lymph % (Auto) [place] % (Auto) Lymph # [place] # Baso # Seg Neutrophils % Seg Neuts % (Manual) Lymphocytes % (Manual) Monocytes % (Manual) Nucleated RBC % Seg Neutrophils # Seg Neutrophils # Man Lymphocytes # (Manual) Monocytes # (Manual) PT INR APTT Fibrinogen Heparin Anti-Xa Level POC ABG pH 7.461 H POC ABG pCO2 31.9 L POC ABG pO2 73 L POC Potassium POC Chloride Sodium Potassium Chloride Carbon Dioxide POC BUN BUN Creatinine Glucose POC Glucose 155 H Calcium Magnesium AST Alkaline Phosphatase Lactate Dehydrogenase Total Creatine Kinase Total Protein Albumin Urine WBC (Auto) Crossmatch 06/28/16 06/28/16 06/28/16 16:27 20:47 22:59 WBC RBC Hgb POC Hgb Hct POC Hct MCH MCHC RDW Plt Count Lymph % (Auto) [place] % (Auto) Lymph # [place] # Baso # Seg Neutrophils % Seg Neuts % (Manual) Lymphocytes % (Manual) Monocytes % (Manual) Nucleated RBC % Seg Neutrophils # Seg Neutrophils # Man Lymphocytes # (Manual) Monocytes # (Manual) PT INR APTT Fibrinogen Heparin Anti-Xa Level 1.16 H POC ABG pH POC ABG pCO2 POC ABG pO2 POC Potassium POC Chloride Sodium Potassium Chloride Carbon Dioxide POC BUN BUN Creatinine Glucose POC Glucose 193 H 126 H Calcium Magnesium AST Alkaline Phosphatase Lactate Dehydrogenase Total Creatine Kinase Total Protein Albumin Urine WBC (Auto) Crossmatch 06/29/16 06/29/16 06/29/16 05:51 09:10 09:10 WBC RBC Hgb POC Hgb Hct POC Hct MCH MCHC RDW Plt Count Lymph % (Auto) [place] % (Auto) Lymph # [place] # Baso # Seg Neutrophils % Seg Neuts % (Manual) Lymphocytes % (Manual) Monocytes % (Manual) Nucleated RBC % Seg Neutrophils # Seg Neutrophils # Man Lymphocytes # (Manual) Monocytes # (Manual) PT INR APTT Fibrinogen Heparin Anti-Xa Level 0.92 H POC ABG pH POC ABG pCO2 POC ABG pO2 POC Potassium POC Chloride Sodium Potassium Chloride Carbon Dioxide POC BUN BUN 53 H Creatinine 3.7 H Glucose 139 H POC Glucose 121 H Calcium 8.2 L Magnesium AST Alkaline Phosphatase Lactate Dehydrogenase Total Creatine Kinase Total Protein Albumin Urine WBC (Auto) Crossmatch 06/29/16 06/30/16 06/30/16 21:22 05:09 08:07 WBC RBC Hgb 7.3 L POC Hgb Hct 21.9 L POC Hct MCH MCHC RDW Plt Count Lymph % (Auto) [place] % (Auto) Lymph # [place] # Baso # Seg Neutrophils % Seg Neuts % (Manual) Lymphocytes % (Manual) Monocytes % (Manual) Nucleated RBC % Seg Neutrophils # Seg Neutrophils # Man Lymphocytes # (Manual) Monocytes # (Manual) PT INR APTT Fibrinogen Heparin Anti-Xa Level POC ABG pH POC ABG pCO2 POC ABG pO2 POC Potassium POC Chloride Sodium Potassium Chloride Carbon Dioxide POC BUN BUN Creatinine Glucose POC Glucose 108 H 106 H Calcium Magnesium AST Alkaline Phosphatase Lactate Dehydrogenase Total Creatine Kinase Total Protein Albumin Urine WBC (Auto) Crossmatch 06/30/16 06/30/16 06/30/16 10:48 12:13 16:48 WBC RBC Hgb POC Hgb Hct POC Hct MCH MCHC RDW Plt Count Lymph % (Auto) [place] % (Auto) Lymph # [place] # Baso # Seg Neutrophils % Seg Neuts % (Manual) Lymphocytes % (Manual) Monocytes % (Manual) Nucleated RBC % Seg Neutrophils # Seg Neutrophils # Man Lymphocytes # (Manual) Monocytes # (Manual) PT INR APTT Fibrinogen Heparin Anti-Xa Level POC ABG pH POC ABG pCO2 POC ABG pO2 POC Potassium POC Chloride Sodium Potassium Chloride Carbon Dioxide POC BUN BUN 46 H Creatinine 3.0 H Glucose POC Glucose 153 H 152 H Calcium Magnesium AST Alkaline Phosphatase Lactate Dehydrogenase Total Creatine Kinase Total Protein Albumin Urine WBC (Auto) Crossmatch 06/30/16 07/01/16 07/01/16 21:47 05:47 07:44 WBC 19.8 H RBC 2.45 L Hgb 7.2 L POC Hgb Hct 22.2 L POC Hct MCH MCHC RDW Plt Count 481 H Lymph % (Auto) 5.5 L [place] % (Auto) Lymph # 1.1 L [place] # 1.4 H Baso # Seg Neutrophils % 86.8 H Seg Neuts % (Manual) Lymphocytes % (Manual) Monocytes % (Manual) Nucleated RBC % Seg Neutrophils # 17.1 H Seg Neutrophils # Man Lymphocytes # (Manual) Monocytes # (Manual) PT INR APTT Fibrinogen Heparin Anti-Xa Level POC ABG pH POC ABG pCO2 POC ABG pO2 POC Potassium POC Chloride Sodium Potassium Chloride Carbon Dioxide POC BUN BUN Creatinine Glucose POC Glucose 162 H 124 H Calcium Magnesium AST Alkaline Phosphatase Lactate Dehydrogenase Total Creatine Kinase Total Protein Albumin Urine WBC (Auto) Crossmatch 07/01/16 07/01/16 07/01/16 07:44 11:55 16:16 WBC RBC Hgb POC Hgb Hct POC Hct MCH MCHC RDW Plt Count Lymph % (Auto) [place] % (Auto) Lymph # [place] # Baso # Seg Neutrophils % Seg Neuts % (Manual) Lymphocytes % (Manual) Monocytes % (Manual) Nucleated RBC % Seg Neutrophils # Seg Neutrophils # Man Lymphocytes # (Manual) Monocytes # (Manual) PT INR APTT Fibrinogen Heparin Anti-Xa Level POC ABG pH POC ABG pCO2 POC ABG pO2 POC Potassium POC Chloride Sodium Potassium 3.1 L Chloride Carbon Dioxide POC BUN BUN 38 H Creatinine 2.2 H Glucose 114 H POC Glucose 114 H 143 H Calcium Magnesium AST Alkaline Phosphatase Lactate Dehydrogenase Total Creatine Kinase Total Protein Albumin Urine WBC (Auto) Crossmatch 07/01/16 07/02/16 07/02/16 21:42 05:40 06:46 WBC 18.1 H RBC 2.45 L Hgb 7.3 L POC Hgb Hct 21.8 L POC Hct MCH MCHC RDW Plt Count 490 H Lymph % (Auto) 6.1 L [place] % (Auto) Lymph # 1.1 L [place] # 1.1 H Baso # 0.2 H Seg Neutrophils % 86.0 H Seg Neuts % (Manual) Lymphocytes % (Manual) Monocytes % (Manual) Nucleated RBC % Seg Neutrophils # 15.6 H Seg Neutrophils # Man Lymphocytes # (Manual) Monocytes # (Manual) PT INR APTT Fibrinogen Heparin Anti-Xa Level POC ABG pH POC ABG pCO2 POC ABG pO2 POC Potassium POC Chloride Sodium Potassium Chloride Carbon Dioxide POC BUN BUN Creatinine Glucose POC Glucose 135 H 135 H Calcium Magnesium AST Alkaline Phosphatase Lactate Dehydrogenase Total Creatine Kinase Total Protein Albumin Urine WBC (Auto) Crossmatch 07/02/16 07/02/16 07/02/16 06:46 06:49 11:23 WBC RBC Hgb POC Hgb Hct POC Hct MCH MCHC RDW Plt Count Lymph % (Auto) [place] % (Auto) Lymph # [place] # Baso # Seg Neutrophils % Seg Neuts % (Manual) Lymphocytes % (Manual) Monocytes % (Manual) Nucleated RBC % Seg Neutrophils # Seg Neutrophils # Man Lymphocytes # (Manual) Monocytes # (Manual) PT INR APTT Fibrinogen Heparin Anti-Xa Level POC ABG pH POC ABG pCO2 POC ABG pO2 POC Potassium POC Chloride Sodium Potassium 2.8 L* Chloride Carbon Dioxide POC BUN BUN 30 H Creatinine 1.8 H Glucose 121 H POC Glucose 121 H Calcium 8.1 L Magnesium 1.3 L AST Alkaline Phosphatase Lactate Dehydrogenase Total Creatine Kinase Total Protein Albumin Urine WBC (Auto) Crossmatch 07/02/16 07/02/16 07/03/16 17:02 21:31 05:35 WBC RBC Hgb POC Hgb Hct POC Hct MCH MCHC RDW Plt Count Lymph % (Auto) [place] % (Auto) Lymph # [place] # Baso # Seg Neutrophils % Seg Neuts % (Manual) Lymphocytes % (Manual) Monocytes % (Manual) Nucleated RBC % Seg Neutrophils # Seg Neutrophils # Man Lymphocytes # (Manual) Monocytes # (Manual) PT INR APTT Fibrinogen Heparin Anti-Xa Level POC ABG pH POC ABG pCO2 POC ABG pO2 POC Potassium POC Chloride Sodium Potassium Chloride Carbon Dioxide POC BUN BUN Creatinine Glucose POC Glucose 121 H 159 H 149 H Calcium Magnesium AST Alkaline Phosphatase Lactate Dehydrogenase Total Creatine Kinase Total Protein Albumin Urine WBC (Auto) Crossmatch 07/03/16 07/03/16 07/03/16 06:45 06:45 06:45 WBC 16.8 H RBC 2.21 L Hgb 6.5 L POC Hgb Hct 19.4 L* POC Hct MCH MCHC RDW Plt Count 503 H Lymph % (Auto) 6.4 L [place] % (Auto) Lymph # 1.1 L [place] # 1.1 H Baso # Seg Neutrophils % 85.6 H Seg Neuts % (Manual) Lymphocytes % (Manual) Monocytes % (Manual) Nucleated RBC % Seg Neutrophils # 14.4 H Seg Neutrophils # Man Lymphocytes # (Manual) Monocytes # (Manual) PT INR APTT Fibrinogen Heparin Anti-Xa Level POC ABG pH POC ABG pCO2 POC ABG pO2 POC Potassium POC Chloride Sodium Potassium 2.9 L* Chloride Carbon Dioxide POC BUN BUN 21 H Creatinine 1.6 H Glucose 126 H POC Glucose Calcium 8.0 L Magnesium 1.6 L AST Alkaline Phosphatase Lactate Dehydrogenase Total Creatine Kinase Total Protein Albumin Urine WBC (Auto) Crossmatch 07/03/16 07/03/16 07/03/16 12:54 19:00 20:01 WBC RBC Hgb POC Hgb Hct POC Hct MCH MCHC RDW Plt Count Lymph % (Auto) [place] % (Auto) Lymph # [place] # Baso # Seg Neutrophils % Seg Neuts % (Manual) Lymphocytes % (Manual) Monocytes % (Manual) Nucleated RBC % Seg Neutrophils # Seg Neutrophils # Man Lymphocytes # (Manual) Monocytes # (Manual) PT INR APTT Fibrinogen Heparin Anti-Xa Level POC ABG pH 7.302 L POC ABG pCO2 49.8 H POC ABG pO2 422 H POC Potassium POC Chloride Sodium Potassium Chloride Carbon Dioxide POC BUN BUN Creatinine Glucose POC Glucose 129 H Calcium Magnesium AST Alkaline Phosphatase Lactate Dehydrogenase Total Creatine Kinase Total Protein Albumin Urine WBC (Auto) Crossmatch See Detail 07/03/16 07/04/16 07/04/16 23:09 04:30 04:30 WBC 19.6 H RBC 3.21 L Hgb 9.4 L POC Hgb Hct 28.2 L POC Hct MCH MCHC RDW Plt Count Lymph % (Auto) 6.5 L [place] % (Auto) Lymph # [place] # 1.2 H Baso # Seg Neutrophils % 86.4 H Seg Neuts % (Manual) Lymphocytes % (Manual) Monocytes % (Manual) Nucleated RBC % Seg Neutrophils # 16.9 H Seg Neutrophils # Man Lymphocytes # (Manual) Monocytes # (Manual) PT INR APTT Fibrinogen Heparin Anti-Xa Level POC ABG pH POC ABG pCO2 POC ABG pO2 POC Potassium POC Chloride Sodium Potassium 3.5 L D Chloride 111.2 H Carbon Dioxide 20 L POC BUN BUN 18 H Creatinine Glucose POC Glucose 111 H Calcium 7.0 L Magnesium AST Alkaline Phosphatase Lactate Dehydrogenase Total Creatine Kinase Total Protein Albumin Urine WBC (Auto) Crossmatch 07/04/16 07/04/16 07/04/16 05:44 12:50 14:33 WBC RBC Hgb POC Hgb Hct POC Hct MCH MCHC RDW Plt Count Lymph % (Auto) [place] % (Auto) Lymph # [place] # Baso # Seg Neutrophils % Seg Neuts % (Manual) Lymphocytes % (Manual) Monocytes % (Manual) Nucleated RBC % Seg Neutrophils # Seg Neutrophils # Man Lymphocytes # (Manual) Monocytes # (Manual) PT INR APTT Fibrinogen Heparin Anti-Xa Level POC ABG pH 7.465 H 7.468 H POC ABG pCO2 29.5 L 29.1 L 33.1 L POC ABG pO2 110 H 39 L POC Potassium POC Chloride Sodium Potassium Chloride Carbon Dioxide POC BUN BUN Creatinine Glucose POC Glucose Calcium Magnesium AST Alkaline Phosphatase Lactate Dehydrogenase Total Creatine Kinase Total Protein Albumin Urine WBC (Auto) Crossmatch 07/04/16 07/05/16 07/05/16 16:49 00:20 04:19 WBC 16.2 H RBC 3.44 L Hgb POC Hgb Hct POC Hct MCH MCHC RDW Plt Count Lymph % (Auto) 5.2 L [place] % (Auto) 7.5 H Lymph # 0.8 L [place] # 1.2 H Baso # Seg Neutrophils % 86.5 H Seg Neuts % (Manual) Lymphocytes % (Manual) Monocytes % (Manual) Nucleated RBC % Seg Neutrophils # 14.0 H Seg Neutrophils # Man Lymphocytes # (Manual) Monocytes # (Manual) PT INR APTT Fibrinogen Heparin Anti-Xa Level POC ABG pH POC ABG pCO2 31.1 L POC ABG pO2 110 H POC Potassium POC Chloride Sodium Potassium Chloride Carbon Dioxide POC BUN BUN Creatinine Glucose POC Glucose 168 H Calcium Magnesium AST Alkaline Phosphatase Lactate Dehydrogenase Total Creatine Kinase Total Protein Albumin Urine WBC (Auto) Crossmatch 07/05/16 07/05/16 07/05/16 04:19 06:01 09:54 WBC RBC Hgb POC Hgb Hct POC Hct MCH MCHC RDW Plt Count Lymph % (Auto) [place] % (Auto) Lymph # [place] # Baso # Seg Neutrophils % Seg Neuts % (Manual) Lymphocytes % (Manual) Monocytes % (Manual) Nucleated RBC % Seg Neutrophils # Seg Neutrophils # Man Lymphocytes # (Manual) Monocytes # (Manual) PT INR APTT Fibrinogen Heparin Anti-Xa Level POC ABG pH POC ABG pCO2 POC ABG pO2 POC Potassium POC Chloride Sodium 146 H Potassium 3.5 L Chloride 109.1 H Carbon Dioxide POC BUN BUN Creatinine Glucose 135 H POC Glucose 146 H 284 H Calcium 7.8 L Magnesium AST Alkaline Phosphatase Lactate Dehydrogenase Total Creatine Kinase Total Protein Albumin Urine WBC (Auto) Crossmatch 07/05/16 07/06/16 07/06/16 13:35 04:40 04:40 WBC 17.7 H RBC 3.32 L Hgb 9.8 L POC Hgb Hct 29.8 L POC Hct MCH MCHC RDW Plt Count Lymph % (Auto) [place] % (Auto) Lymph # [place] # Baso # Seg Neutrophils % Seg Neuts % (Manual) 85.0 H Lymphocytes % (Manual) 4.0 L Monocytes % (Manual) 10.0 H Nucleated RBC % Seg Neutrophils # Seg Neutrophils # Man 15.0 H Lymphocytes # (Manual) 0.7 L Monocytes # (Manual) 1.8 H PT INR APTT Fibrinogen Heparin Anti-Xa Level POC ABG pH POC ABG pCO2 POC ABG pO2 POC Potassium POC Chloride Sodium Potassium 3.5 L Chloride Carbon Dioxide 21 L POC BUN BUN Creatinine Glucose 108 H POC Glucose 130 H Calcium 7.8 L Magnesium AST Alkaline Phosphatase Lactate Dehydrogenase Total Creatine Kinase Total Protein Albumin Urine WBC (Auto) Crossmatch 07/06/16 07/06/16 07/06/16 07:46 11:49 15:31 WBC RBC Hgb POC Hgb Hct POC Hct MCH MCHC RDW Plt Count Lymph % (Auto) [place] % (Auto) Lymph # [place] # Baso # Seg Neutrophils % Seg Neuts % (Manual) Lymphocytes % (Manual) Monocytes % (Manual) Nucleated RBC % Seg Neutrophils # Seg Neutrophils # Man Lymphocytes # (Manual) Monocytes # (Manual) PT INR APTT Fibrinogen Heparin Anti-Xa Level POC ABG pH POC ABG pCO2 POC ABG pO2 POC Potassium POC Chloride Sodium Potassium Chloride Carbon Dioxide POC BUN BUN Creatinine Glucose POC Glucose 149 H 146 H 135 H Calcium Magnesium AST Alkaline Phosphatase Lactate Dehydrogenase Total Creatine Kinase Total Protein Albumin Urine WBC (Auto) Crossmatch 07/06/16 07/06/16 07/07/16 17:17 20:59 04:53 WBC 15.5 H RBC 3.55 L Hgb POC Hgb Hct POC Hct MCH MCHC RDW Plt Count Lymph % (Auto) 4.9 L [place] % (Auto) Lymph # 0.8 L [place] # 0.9 H Baso # Seg Neutrophils % 87.9 H Seg Neuts % (Manual) Lymphocytes % (Manual) Monocytes % (Manual) Nucleated RBC % Seg Neutrophils # 13.7 H Seg Neutrophils # Man Lymphocytes # (Manual) Monocytes # (Manual) PT INR APTT Fibrinogen Heparin Anti-Xa Level POC ABG pH POC ABG pCO2 POC ABG pO2 POC Potassium POC Chloride Sodium Potassium Chloride Carbon Dioxide POC BUN BUN Creatinine Glucose POC Glucose 140 H Calcium Magnesium AST Alkaline Phosphatase Lactate Dehydrogenase Total Creatine Kinase Total Protein Albumin Urine WBC (Auto) 67.0 H Crossmatch 07/07/16 07/07/16 07/07/16 04:53 06:13 07:15 WBC RBC Hgb POC Hgb Hct POC Hct MCH MCHC RDW Plt Count Lymph % (Auto) [place] % (Auto) Lymph # [place] # Baso # Seg Neutrophils % Seg Neuts % (Manual) Lymphocytes % (Manual) Monocytes % (Manual) Nucleated RBC % Seg Neutrophils # Seg Neutrophils # Man Lymphocytes # (Manual) Monocytes # (Manual) PT INR APTT Fibrinogen Heparin Anti-Xa Level POC ABG pH POC ABG pCO2 POC ABG pO2 POC Potassium POC Chloride Sodium Potassium 3.4 L Chloride Carbon Dioxide POC BUN BUN Creatinine Glucose 104 H POC Glucose 122 H 134 H Calcium 8.0 L Magnesium AST Alkaline Phosphatase Lactate Dehydrogenase Total Creatine Kinase Total Protein Albumin Urine WBC (Auto) Crossmatch 07/07/16 07/07/16 07/07/16 08:06 08:06 10:31 WBC RBC Hgb POC Hgb Hct POC Hct MCH MCHC RDW Plt Count Lymph % (Auto) [place] % (Auto) Lymph # [place] # Baso # Seg Neutrophils % Seg Neuts % (Manual) Lymphocytes % (Manual) Monocytes % (Manual) Nucleated RBC % Seg Neutrophils # Seg Neutrophils # Man Lymphocytes # (Manual) Monocytes # (Manual) PT INR APTT Fibrinogen Heparin Anti-Xa Level POC ABG pH POC ABG pCO2 POC ABG pO2 POC Potassium POC Chloride Sodium Potassium Chloride Carbon Dioxide POC BUN BUN Creatinine Glucose 111 H POC Glucose 145 H Calcium 7.9 L Magnesium AST 53 H Alkaline Phosphatase 164 H Lactate Dehydrogenase Total Creatine Kinase Total Protein 6.2 L Albumin 1.4 L Urine WBC (Auto) Crossmatch See Detail 07/07/16 07/07/16 07/07/16 12:08 13:57 16:44 WBC RBC Hgb 9.7 L POC Hgb Hct 30.1 L POC Hct MCH MCHC RDW Plt Count Lymph % (Auto) [place] % (Auto) Lymph # [place] # Baso # Seg Neutrophils % Seg Neuts % (Manual) Lymphocytes % (Manual) Monocytes % (Manual) Nucleated RBC % Seg Neutrophils # Seg Neutrophils # Man Lymphocytes # (Manual) Monocytes # (Manual) PT INR APTT Fibrinogen Heparin Anti-Xa Level POC ABG pH POC ABG pCO2 POC ABG pO2 POC Potassium POC Chloride Sodium Potassium Chloride Carbon Dioxide POC BUN BUN Creatinine Glucose POC Glucose 159 H 173 H Calcium Magnesium AST Alkaline Phosphatase Lactate Dehydrogenase Total Creatine Kinase Total Protein Albumin Urine WBC (Auto) Crossmatch 07/07/16 07/08/16 07/08/16 23:31 07:27 12:16 WBC RBC Hgb POC Hgb Hct POC Hct MCH MCHC RDW Plt Count Lymph % (Auto) [place] % (Auto) Lymph # [place] # Baso # Seg Neutrophils % Seg Neuts % (Manual) Lymphocytes % (Manual) Monocytes % (Manual) Nucleated RBC % Seg Neutrophils # Seg Neutrophils # Man Lymphocytes # (Manual) Monocytes # (Manual) PT INR APTT Fibrinogen Heparin Anti-Xa Level POC ABG pH POC ABG pCO2 POC ABG pO2 POC Potassium POC Chloride Sodium Potassium Chloride Carbon Dioxide POC BUN BUN Creatinine Glucose POC Glucose 163 H 149 H 150 H Calcium Magnesium AST Alkaline Phosphatase Lactate Dehydrogenase Total Creatine Kinase Total Protein Albumin Urine WBC (Auto) Crossmatch 07/08/16 07/08/16 07/08/16 12:50 16:46 21:45 WBC RBC Hgb POC Hgb Hct POC Hct MCH MCHC RDW Plt Count Lymph % (Auto) [place] % (Auto) Lymph # [place] # Baso # Seg Neutrophils % Seg Neuts % (Manual) Lymphocytes % (Manual) Monocytes % (Manual) Nucleated RBC % Seg Neutrophils # Seg Neutrophils # Man Lymphocytes # (Manual) Monocytes # (Manual) PT INR APTT Fibrinogen Heparin Anti-Xa Level POC ABG pH POC ABG pCO2 POC ABG pO2 POC Potassium POC Chloride Sodium Potassium Chloride Carbon Dioxide 21 L POC BUN BUN Creatinine Glucose 126 H POC Glucose 143 H 134 H Calcium 7.5 L Magnesium AST Alkaline Phosphatase Lactate Dehydrogenase Total Creatine Kinase Total Protein Albumin Urine WBC (Auto) Crossmatch 07/09/16 07/09/16 07/09/16 07:31 07:31 08:07 WBC RBC Hgb POC Hgb Hct POC Hct MCH MCHC RDW Plt Count Lymph % (Auto) [place] % (Auto) Lymph # [place] # Baso # Seg Neutrophils % Seg Neuts % (Manual) Lymphocytes % (Manual) Monocytes % (Manual) Nucleated RBC % Seg Neutrophils # Seg Neutrophils # Man Lymphocytes # (Manual) Monocytes # (Manual) PT INR APTT Fibrinogen Heparin Anti-Xa Level POC ABG pH POC ABG pCO2 POC ABG pO2 POC Potassium POC Chloride Sodium Potassium Chloride Carbon Dioxide POC BUN BUN Creatinine Glucose 117 H POC Glucose 132 H Calcium 7.5 L Magnesium AST Alkaline Phosphatase 136 H Lactate Dehydrogenase 285 H Total Creatine Kinase 297 H Total Protein 5.4 L Albumin 1.5 L Urine WBC (Auto) Crossmatch 07/09/16 07/09/16 07/09/16 09:55 11:10 16:26 WBC 13.4 H RBC 1.95 L Hgb 5.8 L* D POC Hgb Hct 17.7 L* D POC Hct MCH MCHC RDW 15.5 H Plt Count Lymph % (Auto) 9.4 L [place] % (Auto) 8.3 H Lymph # [place] # 1.1 H Baso # Seg Neutrophils % 81.2 H Seg Neuts % (Manual) Lymphocytes % (Manual) Monocytes % (Manual) Nucleated RBC % Seg Neutrophils # 10.9 H Seg Neutrophils # Man Lymphocytes # (Manual) Monocytes # (Manual) PT INR APTT Fibrinogen Heparin Anti-Xa Level POC ABG pH POC ABG pCO2 POC ABG pO2 POC Potassium POC Chloride Sodium Potassium Chloride Carbon Dioxide POC BUN BUN Creatinine Glucose POC Glucose 240 H 113 H Calcium Magnesium AST Alkaline Phosphatase Lactate Dehydrogenase Total Creatine Kinase Total Protein Albumin Urine WBC (Auto) Crossmatch 07/09/16 07/10/16 07/10/16 21:45 04:10 09:03 WBC 15.1 H RBC 3.00 L Hgb 8.8 L D POC Hgb Hct 26.2 L D POC Hct MCH MCHC RDW 15.4 H Plt Count Lymph % (Auto) 8.4 L [place] % (Auto) 8.4 H Lymph # [place] # 1.3 H Baso # Seg Neutrophils % 82.5 H Seg Neuts % (Manual) Lymphocytes % (Manual) Monocytes % (Manual) Nucleated RBC % Seg Neutrophils # 12.5 H Seg Neutrophils # Man Lymphocytes # (Manual) Monocytes # (Manual) PT INR APTT Fibrinogen Heparin Anti-Xa Level POC ABG pH POC ABG pCO2 POC ABG pO2 POC Potassium POC Chloride Sodium Potassium Chloride Carbon Dioxide POC BUN BUN Creatinine Glucose POC Glucose 113 H 122 H Calcium Magnesium AST Alkaline Phosphatase Lactate Dehydrogenase Total Creatine Kinase Total Protein Albumin Urine WBC (Auto) Crossmatch 07/10/16 07/10/16 07/10/16 11:38 15:36 21:45 WBC RBC Hgb POC Hgb Hct POC Hct MCH MCHC RDW Plt Count Lymph % (Auto) [place] % (Auto) Lymph # [place] # Baso # Seg Neutrophils % Seg Neuts % (Manual) Lymphocytes % (Manual) Monocytes % (Manual) Nucleated RBC % Seg Neutrophils # Seg Neutrophils # Man Lymphocytes # (Manual) Monocytes # (Manual) PT INR APTT Fibrinogen Heparin Anti-Xa Level POC ABG pH POC ABG pCO2 POC ABG pO2 POC Potassium POC Chloride Sodium Potassium Chloride Carbon Dioxide POC BUN BUN Creatinine Glucose POC Glucose 146 H 131 H 141 H Calcium Magnesium AST Alkaline Phosphatase Lactate Dehydrogenase Total Creatine Kinase Total Protein Albumin Urine WBC (Auto) Crossmatch 07/11/16 07/11/16 07/11/16 05:10 07:40 11:45 WBC RBC Hgb POC Hgb Hct POC Hct MCH MCHC RDW Plt Count Lymph % (Auto) [place] % (Auto) Lymph # [place] # Baso # Seg Neutrophils % Seg Neuts % (Manual) Lymphocytes % (Manual) Monocytes % (Manual) Nucleated RBC % Seg Neutrophils # Seg Neutrophils # Man Lymphocytes # (Manual) Monocytes # (Manual) PT INR APTT Fibrinogen Heparin Anti-Xa Level POC ABG pH POC ABG pCO2 POC ABG pO2 POC Potassium POC Chloride Sodium Potassium Chloride Carbon Dioxide POC BUN BUN Creatinine Glucose 107 H POC Glucose 114 H 116 H Calcium 7.7 L Magnesium AST 81 H Alkaline Phosphatase 153 H Lactate Dehydrogenase Total Creatine Kinase Total Protein 6.0 L Albumin 1.8 L Urine WBC (Auto) Crossmatch 07/11/16 07/11/16 07/12/16 16:22 19:45 08:39 WBC RBC Hgb POC Hgb Hct POC Hct MCH MCHC RDW Plt Count Lymph % (Auto) [place] % (Auto) Lymph # [place] # Baso # Seg Neutrophils % Seg Neuts % (Manual) Lymphocytes % (Manual) Monocytes % (Manual) Nucleated RBC % Seg Neutrophils # Seg Neutrophils # Man Lymphocytes # (Manual) Monocytes # (Manual) PT INR APTT Fibrinogen Heparin Anti-Xa Level POC ABG pH POC ABG pCO2 POC ABG pO2 POC Potassium POC Chloride Sodium Potassium Chloride Carbon Dioxide POC BUN BUN Creatinine Glucose POC Glucose 110 H 106 H 124 H Calcium Magnesium AST Alkaline Phosphatase Lactate Dehydrogenase Total Creatine Kinase Total Protein Albumin Urine WBC (Auto) Crossmatch 07/12/16 07/12/16 07/13/16 11:31 16:36 07:05 WBC 12.4 H RBC 2.93 L Hgb 8.5 L POC Hgb Hct 25.6 L POC Hct MCH MCHC RDW Plt Count Lymph % (Auto) 11.2 L [place] % (Auto) 7.5 H Lymph # [place] # 0.9 H Baso # Seg Neutrophils % 80.6 H Seg Neuts % (Manual) Lymphocytes % (Manual) Monocytes % (Manual) Nucleated RBC % Seg Neutrophils # 10.0 H Seg Neutrophils # Man Lymphocytes # (Manual) Monocytes # (Manual) PT INR APTT Fibrinogen Heparin Anti-Xa Level POC ABG pH POC ABG pCO2 POC ABG pO2 POC Potassium POC Chloride Sodium Potassium Chloride Carbon Dioxide POC BUN BUN Creatinine Glucose POC Glucose 128 H 119 H Calcium Magnesium AST Alkaline Phosphatase Lactate Dehydrogenase Total Creatine Kinase Total Protein Albumin Urine WBC (Auto) Crossmatch 07/13/16 07/13/16 07/13/16 07:30 11:41 13:45 WBC RBC Hgb POC Hgb Hct POC Hct MCH MCHC RDW Plt Count Lymph % (Auto) [place] % (Auto) Lymph # [place] # Baso # Seg Neutrophils % Seg Neuts % (Manual) Lymphocytes % (Manual) Monocytes % (Manual) Nucleated RBC % Seg Neutrophils # Seg Neutrophils # Man Lymphocytes # (Manual) Monocytes # (Manual) PT INR APTT Fibrinogen Heparin Anti-Xa Level POC ABG pH POC ABG pCO2 POC ABG pO2 POC Potassium POC Chloride Sodium Potassium Chloride Carbon Dioxide POC BUN BUN Creatinine Glucose POC Glucose 133 H 129 H Calcium Magnesium AST Alkaline Phosphatase Lactate Dehydrogenase Total Creatine Kinase Total Protein Albumin Urine WBC (Auto) Crossmatch See Detail 07/13/16 07/13/16 07/14/16 15:28 23:29 08:15 WBC RBC Hgb POC Hgb Hct POC Hct MCH MCHC RDW Plt Count Lymph % (Auto) [place] % (Auto) Lymph # [place] # Baso # Seg Neutrophils % Seg Neuts % (Manual) Lymphocytes % (Manual) Monocytes % (Manual) Nucleated RBC % Seg Neutrophils # Seg Neutrophils # Man Lymphocytes # (Manual) Monocytes # (Manual) PT INR APTT Fibrinogen Heparin Anti-Xa Level POC ABG pH POC ABG pCO2 POC ABG pO2 POC Potassium POC Chloride Sodium Potassium Chloride Carbon Dioxide POC BUN BUN Creatinine Glucose POC Glucose 119 H 113 H 130 H Calcium Magnesium AST Alkaline Phosphatase Lactate Dehydrogenase Total Creatine Kinase Total Protein Albumin Urine WBC (Auto) Crossmatch 07/14/16 07/14/16 07/14/16 08:30 12:12 17:00 WBC RBC Hgb POC Hgb Hct POC Hct MCH MCHC RDW Plt Count Lymph % (Auto) [place] % (Auto) Lymph # [place] # Baso # Seg Neutrophils % Seg Neuts % (Manual) Lymphocytes % (Manual) Monocytes % (Manual) Nucleated RBC % Seg Neutrophils # Seg Neutrophils # Man Lymphocytes # (Manual) Monocytes # (Manual) PT INR APTT Fibrinogen Heparin Anti-Xa Level POC ABG pH POC ABG pCO2 POC ABG pO2 POC Potassium POC Chloride Sodium 135 L Potassium Chloride Carbon Dioxide POC BUN BUN Creatinine Glucose 113 H POC Glucose 115 H 119 H Calcium 7.8 L Magnesium AST Alkaline Phosphatase Lactate Dehydrogenase Total Creatine Kinase Total Protein Albumin Urine WBC (Auto) Crossmatch 07/14/16 07/15/16 07/15/16 Unknown 04:15 04:15 WBC 13.9 H 15.3 H RBC Hgb POC Hgb Hct POC Hct MCH MCHC RDW Plt Count Lymph % (Auto) 9.9 L 9.3 L [place] % (Auto) Lymph # [place] # 0.9 H Baso # Seg Neutrophils % 83.8 H 83.9 H Seg Neuts % (Manual) Lymphocytes % (Manual) Monocytes % (Manual) Nucleated RBC % Seg Neutrophils # 11.7 H 12.9 H Seg Neutrophils # Man Lymphocytes # (Manual) Monocytes # (Manual) PT INR APTT Fibrinogen Heparin Anti-Xa Level POC ABG pH POC ABG pCO2 POC ABG pO2 POC Potassium POC Chloride Sodium 131 L Potassium Chloride 96.5 L Carbon Dioxide POC BUN BUN Creatinine 0.6 L Glucose 104 H POC Glucose Calcium 8.0 L Magnesium AST Alkaline Phosphatase Lactate Dehydrogenase Total Creatine Kinase Total Protein Albumin Urine WBC (Auto) Crossmatch 07/15/16 07/15/16 07/15/16 11:29 16:06 22:05 WBC RBC Hgb POC Hgb Hct POC Hct MCH MCHC RDW Plt Count Lymph % (Auto) [place] % (Auto) Lymph # [place] # Baso # Seg Neutrophils % Seg Neuts % (Manual) Lymphocytes % (Manual) Monocytes % (Manual) Nucleated RBC % Seg Neutrophils # Seg Neutrophils # Man Lymphocytes # (Manual) Monocytes # (Manual) PT INR APTT Fibrinogen Heparin Anti-Xa Level POC ABG pH POC ABG pCO2 POC ABG pO2 POC Potassium POC Chloride Sodium Potassium Chloride Carbon Dioxide POC BUN BUN Creatinine Glucose POC Glucose 114 H 165 H 127 H Calcium Magnesium AST Alkaline Phosphatase Lactate Dehydrogenase Total Creatine Kinase Total Protein Albumin Urine WBC (Auto) Crossmatch 07/16/16 07/16/16 07/16/16 07:36 07:36 07:39 WBC RBC 2.86 L Hgb 8.5 L POC Hgb Hct 25.0 L D POC Hct MCH MCHC RDW Plt Count Lymph % (Auto) [place] % (Auto) 8.5 H Lymph # [place] # 0.9 H Baso # Seg Neutrophils % 77.7 H Seg Neuts % (Manual) Lymphocytes % (Manual) Monocytes % (Manual) Nucleated RBC % Seg Neutrophils # 8.5 H Seg Neutrophils # Man Lymphocytes # (Manual) Monocytes # (Manual) PT INR APTT Fibrinogen Heparin Anti-Xa Level POC ABG pH POC ABG pCO2 POC ABG pO2 POC Potassium POC Chloride Sodium 136 L Potassium Chloride Carbon Dioxide POC BUN BUN Creatinine 0.5 L Glucose 133 H POC Glucose 137 H Calcium 8.0 L Magnesium AST Alkaline Phosphatase Lactate Dehydrogenase Total Creatine Kinase Total Protein Albumin Urine WBC (Auto) Crossmatch 07/16/16 07/16/16 07/17/16 11:43 22:10 05:00 WBC 11.6 H RBC 2.95 L Hgb 8.5 L POC Hgb Hct 25.7 L POC Hct MCH MCHC RDW Plt Count Lymph % (Auto) [place] % (Auto) 8.4 H Lymph # [place] # 1.0 H Baso # Seg Neutrophils % 76.2 H Seg Neuts % (Manual) Lymphocytes % (Manual) Monocytes % (Manual) Nucleated RBC % Seg Neutrophils # 8.9 H Seg Neutrophils # Man Lymphocytes # (Manual) Monocytes # (Manual) PT INR APTT Fibrinogen Heparin Anti-Xa Level POC ABG pH POC ABG pCO2 POC ABG pO2 POC Potassium POC Chloride Sodium Potassium Chloride Carbon Dioxide POC BUN BUN Creatinine Glucose POC Glucose 154 H 140 H Calcium Magnesium AST Alkaline Phosphatase Lactate Dehydrogenase Total Creatine Kinase Total Protein Albumin Urine WBC (Auto) Crossmatch 07/17/16 07/17/16 07/17/16 05:00 07:32 12:27 WBC RBC Hgb POC Hgb Hct POC Hct MCH MCHC RDW Plt Count Lymph % (Auto) [place] % (Auto) Lymph # [place] # Baso # Seg Neutrophils % Seg Neuts % (Manual) Lymphocytes % (Manual) Monocytes % (Manual) Nucleated RBC % Seg Neutrophils # Seg Neutrophils # Man Lymphocytes # (Manual) Monocytes # (Manual) PT INR APTT Fibrinogen Heparin Anti-Xa Level POC ABG pH POC ABG pCO2 POC ABG pO2 POC Potassium POC Chloride Sodium Potassium Chloride Carbon Dioxide POC BUN BUN Creatinine 0.6 L Glucose 115 H POC Glucose 135 H 140 H Calcium Magnesium 1.4 L AST Alkaline Phosphatase Lactate Dehydrogenase Total Creatine Kinase Total Protein Albumin Urine WBC (Auto) Crossmatch 07/17/16 07/18/16 07/18/16 16:23 05:00 07:31 WBC RBC 2.67 L Hgb 7.7 L POC Hgb Hct 23.2 L POC Hct MCH MCHC RDW Plt Count 447 H Lymph % (Auto) [place] % (Auto) 8.5 H Lymph # [place] # Baso # Seg Neutrophils % 73.1 H Seg Neuts % (Manual) Lymphocytes % (Manual) Monocytes % (Manual) Nucleated RBC % Seg Neutrophils # Seg Neutrophils # Man Lymphocytes # (Manual) Monocytes # (Manual) PT INR APTT Fibrinogen Heparin Anti-Xa Level POC ABG pH POC ABG pCO2 POC ABG pO2 POC Potassium POC Chloride Sodium Potassium Chloride Carbon Dioxide POC BUN BUN Creatinine Glucose POC Glucose 127 H 119 H Calcium Magnesium AST Alkaline Phosphatase Lactate Dehydrogenase Total Creatine Kinase Total Protein Albumin Urine WBC (Auto) Crossmatch 07/18/16 07/18/16 07/19/16 11:45 16:56 05:00 WBC RBC 2.74 L Hgb 7.9 L POC Hgb Hct 24.0 L POC Hct MCH MCHC RDW Plt Count 471 H Lymph % (Auto) [place] % (Auto) 9.3 H Lymph # [place] # Baso # Seg Neutrophils % Seg Neuts % (Manual) Lymphocytes % (Manual) Monocytes % (Manual) Nucleated RBC % Seg Neutrophils # Seg Neutrophils # Man Lymphocytes # (Manual) Monocytes # (Manual) PT INR APTT Fibrinogen Heparin Anti-Xa Level POC ABG pH POC ABG pCO2 POC ABG pO2 POC Potassium POC Chloride Sodium Potassium Chloride Carbon Dioxide POC BUN BUN Creatinine Glucose POC Glucose 139 H 116 H Calcium Magnesium AST Alkaline Phosphatase Lactate Dehydrogenase Total Creatine Kinase Total Protein Albumin Urine WBC (Auto) Crossmatch 07/19/16 07/19/16 07/19/16 08:08 12:17 16:09 WBC RBC Hgb POC Hgb Hct POC Hct MCH MCHC RDW Plt Count Lymph % (Auto) [place] % (Auto) Lymph # [place] # Baso # Seg Neutrophils % Seg Neuts % (Manual) Lymphocytes % (Manual) Monocytes % (Manual) Nucleated RBC % Seg Neutrophils # Seg Neutrophils # Man Lymphocytes # (Manual) Monocytes # (Manual) PT INR APTT Fibrinogen Heparin Anti-Xa Level POC ABG pH POC ABG pCO2 POC ABG pO2 POC Potassium POC Chloride Sodium Potassium Chloride Carbon Dioxide POC BUN BUN Creatinine Glucose POC Glucose 128 H 117 H 132 H Calcium Magnesium AST Alkaline Phosphatase Lactate Dehydrogenase Total Creatine Kinase Total Protein Albumin Urine WBC (Auto) Crossmatch 07/19/16 07/20/16 07/21/16 21:39 21:41 11:30 WBC RBC Hgb POC Hgb Hct POC Hct MCH MCHC RDW Plt Count Lymph % (Auto) [place] % (Auto) Lymph # [place] # Baso # Seg Neutrophils % Seg Neuts % (Manual) Lymphocytes % (Manual) Monocytes % (Manual) Nucleated RBC % Seg Neutrophils # Seg Neutrophils # Man Lymphocytes # (Manual) Monocytes # (Manual) PT INR APTT Fibrinogen Heparin Anti-Xa Level POC ABG pH POC ABG pCO2 POC ABG pO2 POC Potassium POC Chloride Sodium Potassium Chloride Carbon Dioxide POC BUN BUN Creatinine Glucose POC Glucose 115 H 117 H 114 H Calcium Magnesium AST Alkaline Phosphatase Lactate Dehydrogenase Total Creatine Kinase Total Protein Albumin Urine WBC (Auto) Crossmatch 07/21/16 07/22/16 07/23/16 16:57 07:25 21:46 WBC RBC Hgb POC Hgb Hct POC Hct MCH MCHC RDW Plt Count Lymph % (Auto) [place] % (Auto) Lymph # [place] # Baso # Seg Neutrophils % Seg Neuts % (Manual) Lymphocytes % (Manual) Monocytes % (Manual) Nucleated RBC % Seg Neutrophils # Seg Neutrophils # Man Lymphocytes # (Manual) Monocytes # (Manual) PT INR APTT Fibrinogen Heparin Anti-Xa Level POC ABG pH POC ABG pCO2 POC ABG pO2 POC Potassium POC Chloride Sodium Potassium Chloride Carbon Dioxide POC BUN BUN Creatinine Glucose POC Glucose 187 H 108 H 116 H Calcium Magnesium AST Alkaline Phosphatase Lactate Dehydrogenase Total Creatine Kinase Total Protein Albumin Urine WBC (Auto) Crossmatch 07/24/16 07/24/16 05:00 11:22 WBC RBC 2.70 L Hgb 7.6 L POC Hgb Hct 23.0 L POC Hct MCH MCHC RDW 15.3 H Plt Count Lymph % (Auto) [place] % (Auto) 9.8 H Lymph # [place] # 0.9 H Baso # Seg Neutrophils % Seg Neuts % (Manual) Lymphocytes % (Manual) Monocytes % (Manual) Nucleated RBC % Seg Neutrophils # Seg Neutrophils # Man Lymphocytes # (Manual) Monocytes # (Manual) PT INR APTT Fibrinogen Heparin Anti-Xa Level POC ABG pH POC ABG pCO2 POC ABG pO2 POC Potassium POC Chloride Sodium Potassium Chloride Carbon Dioxide POC BUN BUN Creatinine Glucose POC Glucose 161 H Calcium Magnesium AST Alkaline Phosphatase Lactate Dehydrogenase Total Creatine Kinase Total Protein Albumin Urine WBC (Auto) Crossmatch
[2016-07-24] MEDS: ZOSYN/NS 4.5GM/100ML 100 ML IV SCH (12:18)
[2016-07-24 16:20] VITALS: BP 130/64
--- NOTE | 2016-07-24 17:17 | Vascular Lab Report ---
MISCELLANEOUS VESSEL IDENTIFICATION: COMMENTS ON THE SCAN: The right internal jugular vein was identified and under real-time ultrasound guidance was cannulated. IMPRESSION: Successful ultrasound guided vein cannulation.
--- NOTE | 2016-07-24 17:44 | Discharge Summary ---
Providers - Providers Date of Admission: 06/13/16 10:46 Date of discharge: 07/24/16 Attending physician: JOSE ANGEL JEREZ 07/13/16 09:41 Consult to Physician [CONS] Stat Consulting Provider: COCO MICHAEL Reason For Exam: medical Place consult to:: onelia Notified:: yes Phone number called:: [phone] Was contact made?: Yes Time called:: 09:42 07/15/16 Occupational Therapy Evaluate and Treat [CONS] Routine Comment: Reason For Exam: s/p amputation Physical Therapy Evaluation and Treat [CONS] Routine Comment: Reason For Exam: s/p amputation 07/18/16 14:28 Consult to Case Management [CONS] Routine Services Needed at Discharge: Other Notified:: cm notified Comment:: rehab eval 07/21/16 09:10 Occupational Therapy Evaluate and Treat [CONS] Routine Comment: Reason For Exam: s/p amputation Physical Therapy Evaluation and Treat [CONS] Routine Comment: Reason For Exam: s/p amputation 07/21/16 11:39 Consult to Case Management [CONS] Routine Services Needed at Discharge: Other Notified:: cm notified Comment:: Rehab eval Consult to Physician [CONS] Routine Consulting Provider: ARACELIS CHAMORRO Reason For Exam: rehab eval Place consult to:: office Notified:: yes Phone number called:: [phone] Was contact made?: No 07/21/16 11:41 Consult to PICC Line RN [CONS] Routine Reason For Exam: IV antibiotics administration Type Line:: PICC 06/13/16 11:21 Consult to Physician [CONS] Routine Consulting Provider: GERALDINE GONSALES Reason For Exam: Critical Care Admission Place consult to:: Dr Gonsales Notified:: yes Was contact made?: Yes If yes, spoke with:: Dr Garza Time called:: 11:00 06/16/16 19:49 Consult to Dietitian/Nutrition [CONS] Routine Physician Instructions: Reason For Exam: Reason for Consult: Evaluate nutritional intake 06/21/16 13:39 Consult to Physician [CONS] Routine Consulting Provider: ERIKA CARTY Reason For Exam: Coffee Ground Emesis and Bloody Bowel Movement Place consult to:: dr carty Notified:: yes Phone number called:: [phone] Was contact made?: Yes If yes, spoke with:: spoke with dr carty Time called:: 14:33 06/22/16 08:02 Consult to Physician [CONS] Stat Consulting Provider: NITIN VANCE Reason For Exam: dr. vance [facility] consult to:: dr. vance Notified:: [email or web address] 06/22/16 15:03 Consult to Dietitian/Nutrition [CONS] Routine Physician Instructions: Reason For Exam: Reason for Consult: Write/Manage Tube Feeding 06/23/16 14:39 Physical Therapy Evaluation and Treat [CONS] Routine Comment: Reason For Exam: Eval and Treat 06/23/16 19:25 Consult to Wound/ET Nurse [CONS] Routine Reason For Exam: wound eval blisters on left leg and groin 06/24/16 16:04 Consult Acute Rehabilitation [CONS] Routine Consulting Provider: ARACELIS CHAMORRO Reason For Exam: Physical Therapy / strength training (RE-CONSULT) 06/27/16 08:00 Consult to Physician [CONS] Routine Consulting Provider: EVA DANIELLE Reason For Exam: hydronephrosis, bilateral, unclear cause ; CT pend Place consult to:: Dr Macias Notified:: notified 07/03/16 16:57 Consult to Dietitian/Nutrition [CONS] Routine Physician Instructions: Reason For Exam: Reason for Consult: Poor oral intake 07/06/16 11:07 Consult to Physician [CONS] Routine Consulting Provider: ALYISA NOLEN Reason For Exam: possible wound infection versus pneumonia Place consult to:: Dr. Montoya Notified:: yes Phone number called:: [phone] Was contact made?: Yes If yes, spoke with:: Dr. Montoya Time called:: 11:11 07/07/16 16:42 Consult to Wound/ET Nurse [CONS] Urgent Reason For Exam: for wound vac to left groin 07/09/16 11:27 Consult to PICC Line RN [CONS] Urgent Reason For Exam: Vascular access; acute blood loss Type Line:: PICC Primary care physician: VERONICA MACHADO Hospitalization Reason for admission: Ischemic Left leg Condition: Stable Procedures: Operative Report Operative Report: Date of Procedure: 06/13/2016 Pre-operative Diagnosis: Acute Left Lower Extremity Ischemia Post-operative Diagnosis: Same Procedure(s): 1. Ultrasound-Guided Access Right Common Femoral Artery 2. Diagnostic Aortogram with Left Lower Excision of Any Runoff (No Previous Films for Comparison) 3. First Order Catheter Placement 4. Closure of Right Femoral Arteriotomy with Pro-[place] Closure Device 5. Radiologic Supervision with Interpretation Surgeon: Jose Angel Jerez M.D. Senior Software Analyst: Misbah Anesthesia: Local and IV sedation EBL: Minimal Counts: Correct Complications: None Condition: Stable Specimen: None Indication: The patient is a 55-year-old female with a history of peripheral vascular disease and previous intervention of bilateral lower extremities. She presented with complaints of rest pain and had an ultrasound that demonstrated occlusion of her external iliac and common femoral artery on the left with an KYLAH of 0.2. She was offered an arteriogram with possible intervention. She was given the risks, benefits, and alternative procedures and consented to the procedure. Angiographic Findings: The aortogram demonstrated the aorta is widely patent and bilateral common iliac arteries widely patent. The patient's left hypogastric artery and proximal external iliac artery were widely patent. The distal extremity leg artery and common femoral artery were occluded with reconstitution of flow in the profunda artery through collaterals. The proximal SFA reconstituted however there was a string sign and a previously placed stent in the SFA was occluded. There was reconstitution of flow and the above-knee popliteal artery. The patient had two-vessel runoff through peroneal and anterior tibial artery that appeared to be widely patent down to the foot. Patient Name: DARNELL IRIZARRY Date of : 60 Patient Status: Inpatient Attending Provider: JOSE ANGEL JEREZ Date: 06/16/16 18:47 Initialization Date: 06/16/16 18:47 Date of procedure: 06/16/16 Pre-op diagnosis: PVD with Left Foot Rest Pain Post-op diagnosis: same Procedure: 1. Left Common Femoral and Distal External Iliac Endarterectomy 2. Left External Iliac Angioplasty and Stent with 7 x 10 cm and 7 x 5 cm Viabahn Stent Grafts and 7 x 40 Balloon 3. Left SFA Remote Endarterectomy 4. Left Femoral Artery to Popliteal Artery Bypass with In Situ Greater Saphenous Vein Graft 5. Radiologic Supervision with Interpretation Anesthesia: GETA Surgeon: JOSE ANGEL JEREZ Senior Software Analyst: KIYA HERNANDEZ Estimated blood loss: other (2000 mL) Pathology: none (left common femoral and external iliac plaque) Specimen disposition: to lab Condition: stable Disposition: PACU Operative Report Operative Report: Date of Procedure: 06/16/2016 Pre-operative Diagnosis: PVD with Left Foot Rest Pain Post-operative Diagnosis: Same Procedure(s): 1. Left Common Femoral and Distal External Iliac Endarterectomy 2. Left External Iliac Angioplasty and Stent with 7 x 10 cm and 7 x 5 cm Viabahn Stent Grafts and 7 x 40 Balloon 3. Left SFA Remote Endarterectomy 4. Left Femoral Artery to Popliteal Artery Bypass with In Situ Greater Saphenous Vein Graft 5. Radiologic Supervision with Interpretation Surgeon: Jose Angel Jerez M.D. Senior Software Analyst: Kiya Hernandez M.D. Anesthesia: Gen. endotracheal anesthesia EBL: 2 L Counts: Correct Complications: None Condition: Critical but stable Findings: Successful stenting of left external iliac artery and patent femoropopliteal bypass with distal signals. Specimen: Left femoral and external iliac plaque sent to pathology. Indication: The patient is a 55-year-old female with a history of peripheral vascular disease and previous endovascular intervention who presented with rest pain and KYLAH 0.2 and evidence of occlusive disease in her external iliac artery as well as the common femoral artery and superficial femoral artery. She is set up for revascularization. She was given the risk, benefits, and alternative procedures and consented to procedure. Operative Report Operative Report: EXAM: 1. Ultrasound-guided puncture of the right common femoral vein 2. Placement of a right common femoral vein nontunneled noncuffed catheter. DATE: 06/20/16 INDICATION: Cardiac arrest requiring TLC catheter. MEDICATIONS: Local anesthetic (1% lidocaine). CLINICAL QUALITY ASSURANCE ASSOCIATE: LUI MCCABE MD DEVICES: 7F triple lumen nontunneled noncuffed catheter CONTRAST: None PROCEDURE: The risks, benefits, and alternatives were discussed and informed consent was obtained. The patient's right common femoral vein was assessed with ultrasound at bedside and determined to be patent prior to procedure. The patient was prepped and draped in a sterile fashion. The puncture site was anesthetized. Under sonographic guidance, the right common femoral vein was punctured with a 18-gauge micropuncture needle and a 0.035 inch wire was advanced through the needle. Over the 0.035 inch wire, dilatation was performed. The catheter was advanced over the wire. 2-0 silk suture was used to secure the catheter. The catheter was charged with saline. Biopatch and tegaderm were applied. FINDINGS: 1. Ultrasound documented patency of the right common femoral vein. The vessel was accessed under direct ultrasound guidance. IMPRESSION: 1. Successful ultrasound guided bedside placement of a right common femoral vein nontunneled noncuffed triple lumen catheter. Date: 06/27/16 14:55 Initialization Date: 06/27/16 14:55 Pre-op diagnosis: hydro Post-op diagnosis: same Procedure: cysto, bilat stent Anesthesia: local Pathology: list (cystology) Condition: stable Disposition: PACU Operative Report Operative Report: Date of procedure: 07/03/2016 Pre-operative diagnosis: Acute ischemic right leg/acute right common femoral artery occlusion Post-operative diagnosis: Same Procedure name(s): Emergent right common femoral thromboendarterectomy with bovine pericardial patch angioplasty. Completion angiogram Surgeon: Joaquin Ochoa MD, RPVI Senior Software Analyst: DO Wood Ruby PA Anesthesia: Gen. Findings 1. Occluded right common femoral artery with plaque and fresh clot. 2. Right ischemic foot. 3. Complete resolution of the occlusion after endarterectomy and a patch. 4. Brisk flow in the common iliac, external iliac, common femoral, deep femoral , popliteal arteries. Intact 2 vessel runoff. 5. Occluded SFA stents. Specimens: Right femoral plaque/clot EBL: 800 mL IV fluids: 3000 mL crystalloid. 4 units of packed red blood cells. Urine output: 500 cc Disposition: The recovery Procedure Indications: Acute ischemic right lower extremity. Operative Report Operative Report: Date of procedure: 07/07/2016 Pre-operative diagnosis: Necrosis of left groin wound Post-operative diagnosis: Same Procedure name(s): 1. Debridement of the left groin wound. 2. Removal of an infected Dacron patch from the SFA. 3. 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 4. Creation of the sartorius muscle flap over common femoral artery bovine pericardial patch. Surgeon: Joaquin Ochoa MD, RPVI Senior Software Analyst: None Anesthesia: General Findings 1. Extensive necrosis and infection of the left groin wound. 2. 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 3. Infected Dacron patch. 4. Large foul-smelling hematoma in the left groin and retroperitoneum. 5. Extensive necrosis of the skin over the left groin. 6. Viable sartorius muscle flap. Specimens: 1. Left groin deep tissues. 2. Left groin infected hematoma. 3. Proximal portion of the venous bypass. 4. Dacron patch. EBL: 500 mL IV fluids: 2200 mL Urine output: 300 mL Disposition: ICU Indications: Infected left groin wound Operative Report Operative Report: EXAM: 1. Ultrasound-guided puncture of the right internal jugular vein 2. Placement of a right internal jugular vein nontunneled noncuffed catheter. DATE: 07/09/16 with INDICATION: 55-year-old female requiring blood transfusion and CT scan with no IV access available except for a 22-gauge IV. Needs IV access. MEDICATIONS: Local anesthetic (1% lidocaine). CLINICAL QUALITY ASSURANCE ASSOCIATE: LUI MCCABE MD DEVICES: 7F triple lumen nontunneled noncuffed catheter CONTRAST: None PROCEDURE: The risks, benefits, and alternatives were discussed and informed consent was obtained. The patient's right internal jugular vein was assessed with ultrasound at bedside and determined to be patent prior to procedure. The right internal jugular vein was patent. The patient was prepped and draped in a sterile fashion. The puncture site was anesthetized. Under sonographic guidance, the right internal jugular vein was punctured with a 18-gauge micropuncture needle and a 0.035 inch wire was advanced through the needle. Over the 0.035 inch wire, dilatation was performed. The catheter was advanced over the wire. 2-0 silk suture was used to secure the catheter. The catheter was charged with saline. Biopatch and tegaderm were applied. Chest x ray was ordered and the patient tolerated the procedure without immediate post procedual complication. Chest x ray demonstrated the catheter was in the IVC. It was retracted 5 cm after the sutures were cut and then resutured in placed. Sterile dressing reapplied. Repeat chest x ray demonstrated catheter in the cavoatrial junction. FNDINGS: 1. Ultrasound documented patency of the right internal jugular vein. The vessel was accessed under direct ultrasound guidance. 2. On the post procedural chest x ray, the catheter tip is appropriately placed in the IVC. Repeat chest x ray demonstrated catheter in the cavoatrial junction. IMPRESSION: 1. Successful ultrasound guided bedside placement of a right internal jugular vein nontunneled noncuffed triple lumen catheter. Operative Report Operative Report: Operative note: Date: 07/15/2016 Preoperative diagnosis: Left leg ischemia Postoperative diagnosis: Same. Operation: Left above-knee amputation, excisional debridement of left groin Surgeon: Kiya Hernandez. Asst.: Todd Tillman Anesthesia: Gen. EBL: 200 mL Findings: tissue and some purulent output at the medial side around distal incision for femoropopliteal bypass Indications: 55-year-old female with multiple previous procedures including left femoropopliteal bypass, left femoral washout and ligation of bypass developed left leg ischemia. Her and her family explaining risks and benefits of procedure and he chose to proceed, informed consent was obtained. Operative details: Patient was brought to the operating room and placed under general anesthesia. Timeout performed and all team members in agreement. [place] incision was made with 10 blade curving around anterior and posterior flaps and carried down with electrocoutery down to the fascia. Previous bypass was identified and divided and ligated as well as femoral artery and vein. Muscles were divided using electrocautery down to the femur. Bone was cleaned with periosteal elevator and divided with electric saw. The rest of the muscle was divided with amputation knife. Bone edges were smoothed. Hemostasis was achieved with suture ligatures and electrocautery. Wound was irrigated with saline. Muscle was approximated around the femur edge. Fascia was closed with interrupted Vicryl stitches. Medial third of stump was left open because of infection. Lateral two thirds of stump was closed with 3-0 nylon mattress stitches and samaria. Medial third of stump was closed with VAC dressing. Left groin VAC dressing was changed. Excisional debridement of left groin and performed. All needles and sponge counts were correct 2. Patient tolerated the procedure well and was transferred to PACU in stable condition. Addendum entered and electronically signed by LUI MCCABE MD 07/23/16 18: 46: typographical error The patient was tachycardic at the start of the procedure with a heart rate of 120s to 130s. At the end of the procedure her heart rate was in the 140s to 150s. The procedure had no immediate postprocedure complication. Patient was provided her atenolol, a scheduled medication, prior to procedure. This will be provided at this time. should state The patient was tachycardic at the start of the procedure with a heart rate of 120s to 130s. At the end of the procedure her heart rate was in the 140s to 150s. The procedure had no immediate postprocedure complication. Patient NOT was provided her atenolol, a scheduled medication, prior to procedure. This will be provided at this time. Original Note: Operative Report Operative Report: EXAM: 1. Ultrasound-guided puncture of the left internal jugular vein 2. Fluoroscopic-guided placement of a left internal jugular tunneled non- cuffed smallbore dual-lumen catheter. DATE: 07/23/16 INDICATION: 55-year-old female with multiple medical problems including infected left groin bypass graft requiring explantation and prolonged antibiotics. MEDICATIONS: Please see nursing report for full details. DEVICES: 5 Portuguese dual-lumen power PICC catheter CLINICAL QUALITY ASSURANCE ASSOCIATE: LUI MCCABE MD CONTRAST: None PROCEDURE: The risks, benefits, and alternatives were discussed and informed consent was obtained. The patient was transported to the angiography suite in satisfactory/ stable condition and was transported onto the angiography table. The patient's left internal jugular vein was assessed with ultrasound and determined to be patent prior to procedure. The patient was prepped and draped in a sterile fashion. The puncture site was anesthetized. Under sonographic guidance, the left internal jugular vein was punctured with a 21-gauge micropuncture needle and a 0.018 inch wire was advanced into the inferior vena cava. A suitable exit site was identified on the patient's chest inferior and lateral to the venotomy. The site was anesthetized with local anesthetic and the track was anesthetized. Dermatotomy was made. The 5 Portuguese dual-lumen smallbore catheter was tunneled between the dermatotomy to the venotomy with the assistance of a metal tunneler. Over 0.018 inch wire, the transitional dilator was exchanged for a 5 Portuguese peel -away sheath. The wire was used to erika intravascular distance and removed. The catheter was cut to appropriate size. The catheter was advanced through the peel-away sheath and positioned centrally under fluoroscopic guidance. The peel-away sheath was removed. 4-0 Vicryl suture was used to close the venotomy and Dermabond was then applied. Two 3-0 Ethilon suture was used to secure the catheter at the dermatotomy. The catheter was charged with heparinized saline. Sterile dressings applied. The patient's right internal jugular triple-lumen catheter was then evaluated. Sutures were cut. Pressure was held until hemostasis was achieved. Sterile dressing applied. The patient was tachycardic at the start of the procedure with a heart rate of 120s to 130s. At the end of the procedure her heart rate was in the 140s to 150s. The procedure had no immediate postprocedure complication. Patient was provided her atenolol, a scheduled medication, prior to procedure. This will be provided at this time. The patient was transferred from the angiography suite back to the floor in stable condition. FINDINGS: 1. Excellent flow was obtained through the dual lumen smallbore tunneled catheter. 2. The catheter tip is in the right atrium. IMPRESSION: 1. Successful ultrasound and fluoroscopically guided placement of a left internal jugular tunneled non-cuffed dual-lumen catheter. 2. Successful removal of right internal jugular non-tunneled non-cuffed triple- lumen catheter. Hospital course: This Patient presented to the hospital with an ischemic left lower extremity for an attempt at percutaneous revascularization of her left lower extremity. This was unsuccessful and therefore the patient was admitted in preparation for bypass. This was performed without complication. Unfortunately the bypass thrombosed, and she was taken back for percutaneous thrombectomy. The graft was able to be opened up. The patient's pain resolved. Postoperatively she was transferred back to the intensive care unit. She subsequently became hypotensive and coded. This was felt to be related to acute blood loss/ retroperitoneal bleed. The Patient was intubated and subsequently resuscitated. Nephrology was consulted for acute on chronic kidney disease. Her kidney function slowly improved throughout the hospitalization. She was preparing for transfer to rehabilitation but developed hypokalemia. The discharge was held. She developed an acute ischemia of her right lower extremity which prompted operative intervention. The wounds to her left groin subsequent breakdown and required surgical debridement with muscle flap closure. Despite all attempts to salvage her left lower extremity, an above-the -knee amputation was required. She was noted to have purulence draining from her left leg for the amputation site was left open medially wound vacs were placed on the groin incisions and distal amputation site. She was treated with long-term antibiotics by the infectious disease service. Physical therapy was resumed. Discharge planning for acute rehabilitation was restarted. The patient was ultimately accepted and all arrangements were completed. The patient was transferred to the acute rehabilitation facility on 07/24/2016. Disposition: DC/TX INPT REHAB FACILITY - Discharge Diagnoses (1) Atherosclerosis of [place] arteries of extremity with intermittent claudication Status: Acute Core Measure Documentation - Palliative Care Palliative Care/ Comfort Measures: Not Applicable - Core Measures Any of the following diagnoses?: none Exam - Constitutional Vitals: Temp Pulse Resp BP Pulse Ox 98.7 F 102 H 18 130/64 98 07/24/16 16:19 07/24/16 16:19 07/24/16 16:19 07/24/16 16:19 07/24/16 08:00 General appearance: Present: no acute distress - EENT Eyes: Present: EOM intact ENT: hearing intact - Respiratory Respiratory effort: normal - Extremities Extremities: normal temperature, abnormal (wound vacs were changed following my exam) - Psychiatric Psychiatric: appropriate mood/affect, cooperative - Neurologic Neurologic: other (decreased motor function to the right foot) Plan Activity: advance as tolerated Weight Bearing Status: Weight Bear as Tolerated Diet: regular Wound: keep clean and dry Follow up with: GERALDINE GONSALES MD [Staff Physician] - 7 Days ANA MACIAS MD [Staff Physician] - 7 Days SYLVIE WARD MD [Staff Physician] - 7 Days VERONICA MACHADO MD [Primary Care Provider] - 7 Days JOSE ANGEL JEREZ MD [Staff Physician] - 7 Days SOFIA MAI MD [Staff Physician] - 7 Days
[2016-07-27 11:55] LABS: ISTAT Base Excess -1; ISTAT DEVICE 0; ISTAT HCO3 22.8; ISTAT PCO2 33.2 (35-45); ISTAT PH 7.446 (7.35-7.45); ISTAT PO2 85 (80-105); ISTAT SO2 97; ISTAT TCO2 24
[2017-06-27] MEDS ORDERED: THERMAZENE 50 GRAM TP ONE (00:24)
== END 2016-07-24 17:33 | DRG 270 ==
LOC: OPU 09:13 → CC1 10:46 → 4A 14:17 → CC1 06-17 00:32 → 3A 06-24 18:32 → CC1 07-03 18:29 → 2B-SURG 07-18 14:31
PROVIDERS: ADMIT Surgery Vascular Surgery; ATTEND Surgery Vascular Surgery
PROC: 04JY3ZZ Inspection of Lower Artery, Percutaneous Approach (ICD-10-PCS; 2016-06-13)
PROC: B40D1ZZ Plain Radiography of Aorta and Bilateral Lower Extremity Arteries using Low Osmolar Contrast (ICD-10-PCS; 2016-06-13)
PROC: 04CJ0ZZ Extirpation of Matter from Left External Iliac Artery, Open Approach (ICD-10-PCS; principal; 2016-06-16)
PROC: 04CY0ZZ Extirpation of Matter from Lower Artery, Open Approach (ICD-10-PCS; 2016-06-16)
PROC: 047 Lower Arteries, Dilation (ICD-10-PCS; 2016-06-16)
PROC: 04CL3ZZ Extirpation of Matter from Left Femoral Artery, Percutaneous Approach (ICD-10-PCS; 2016-06-16)
PROC: 06BQ3ZZ Excision of Left Saphenous Vein, Percutaneous Approach (ICD-10-PCS; 2016-06-16)
PROC: 041 Lower Arteries, Bypass (ICD-10-PCS; 2016-06-16)
PROC: 30233N1 Transfusion of Nonautologous Red Blood Cells into Peripheral Vein, Percutaneous Approach (ICD-10-PCS; 2016-06-16)
PROC: 30233K1 Transfusion of Nonautologous Frozen Plasma into Peripheral Vein, Percutaneous Approach (ICD-10-PCS; 2016-06-16)
PROC: 0BH17EZ Insertion of Endotracheal Airway into Trachea, Via Natural or Artificial Opening (ICD-10-PCS; 2016-06-16)
PROC: 5A1945Z Respiratory Ventilation, 24-96 Consecutive Hours (ICD-10-PCS; 2016-06-16)
PROC: 30233R1 Transfusion of Nonautologous Platelets into Peripheral Vein, Percutaneous Approach (ICD-10-PCS; 2016-06-17)
PROC: B54BZZA Ultrasonography of Right Lower Extremity Veins, Guidance (ICD-10-PCS; 2016-06-20)
PROC: 06CY3ZZ Extirpation of Matter from Lower Vein, Percutaneous Approach (ICD-10-PCS; 2016-06-20)
PROC: B40GYZZ Plain Radiography of Left Lower Extremity Arteries using Other Contrast (ICD-10-PCS; 2016-06-20)
PROC: 06HM33Z Insertion of Infusion Device into Right Femoral Vein, Percutaneous Approach (ICD-10-PCS; 2016-06-20)
PROC: 04VJ3DZ Restriction of Left External Iliac Artery with Intraluminal Device, Percutaneous Approach (ICD-10-PCS; 2016-06-20)
PROC: 04CJ3ZZ Extirpation of Matter from Left External Iliac Artery, Percutaneous Approach (ICD-10-PCS; 2016-06-20)
PROC: 047J3ZZ Dilation of Left External Iliac Artery, Percutaneous Approach (ICD-10-PCS; 2016-06-20)
PROC: 04CL3ZZ Extirpation of Matter from Left Femoral Artery, Percutaneous Approach (ICD-10-PCS; 2016-06-20)
PROC: 047N3Z1 Dilation of Left Popliteal Artery using Drug-Coated Balloon, Percutaneous Approach (ICD-10-PCS; 2016-06-20)
PROC: 0BH17EZ Insertion of Endotracheal Airway into Trachea, Via Natural or Artificial Opening (ICD-10-PCS; 2016-06-20)
PROC: B54BZZA Ultrasonography of Right Lower Extremity Veins, Guidance (ICD-10-PCS; 2016-06-20)
PROC: 06HM33Z Insertion of Infusion Device into Right Femoral Vein, Percutaneous Approach (ICD-10-PCS; 2016-06-20)
PROC: BT141ZZ Fluoroscopy of Kidneys, Ureters and Bladder using Low Osmolar Contrast (ICD-10-PCS; 2016-06-27)
PROC: 0T788DZ Dilation of Bilateral Ureters with Intraluminal Device, Via Natural or Artificial Opening Endoscopic (ICD-10-PCS; 2016-06-27)
PROC: 04CK0ZZ Extirpation of Matter from Right Femoral Artery, Open Approach (ICD-10-PCS; 2016-07-03)
PROC: 04UK0KZ Supplement Right Femoral Artery with Nonautologous Tissue Substitute, Open Approach (ICD-10-PCS; 2016-07-03)
PROC: B41F1ZZ Fluoroscopy of Right Lower Extremity Arteries using Low Osmolar Contrast (ICD-10-PCS; 2016-07-03)
PROC: 4A033R1 Measurement of Arterial Saturation, Peripheral, Percutaneous Approach (ICD-10-PCS; 2016-07-03)
PROC: 0KU Muscles, Supplement (ICD-10-PCS; 2016-07-07)
PROC: 0JBP0ZZ Excision of Left Lower Leg Subcutaneous Tissue and Fascia, Open Approach (ICD-10-PCS; 2016-07-07)
PROC: 04CL3ZZ Extirpation of Matter from Left Femoral Artery, Percutaneous Approach (ICD-10-PCS; 2016-07-07)
PROC: 04P Lower Arteries, Removal (ICD-10-PCS; 2016-07-07)
PROC: 0YBC0ZZ Excision of Right Upper Leg, Open Approach (ICD-10-PCS; 2016-07-07)
PROC: B543ZZA Ultrasonography of Right Jugular Veins, Guidance (ICD-10-PCS; 2016-07-09)
PROC: 06H033Z Insertion of Infusion Device into Inferior Vena Cava, Percutaneous Approach (ICD-10-PCS; 2016-07-09)
PROC: 06H033Z Insertion of Infusion Device into Inferior Vena Cava, Percutaneous Approach (ICD-10-PCS; 2016-07-09)
PROC: B549ZZA Ultrasonography of Inferior Vena Cava, Guidance (ICD-10-PCS; 2016-07-09)
PROC: 0YB60ZZ Excision of Left Inguinal Region, Open Approach (ICD-10-PCS; 2016-07-15)
PROC: 0Y680ZZ Detachment at Left Femoral Region, Open Approach (ICD-10-PCS; 2016-07-15)
PROC: 05PY33Z Removal of Infusion Device from Upper Vein, Percutaneous Approach (ICD-10-PCS; 2016-07-23)
PROC: 02H633Z Insertion of Infusion Device into Right Atrium, Percutaneous Approach (ICD-10-PCS; 2016-07-23)
PROC: B2141ZZ Fluoroscopy of Right Heart using Low Osmolar Contrast (ICD-10-PCS; 2016-07-23)
DX: I70.218 Atherosclerosis of native arteries of extremities with intermittent claudication, other extremity (principal); I46.9 Cardiac arrest, cause unspecified; J18.9 Pneumonia, unspecified organism; N17.0 Acute kidney failure with tubular necrosis; J96.01 Acute respiratory failure with hypoxia; K66.1 Hemoperitoneum; T82.868A Thrombosis due to vascular prosthetic devices, implants and grafts, initial encounter; I74.3 Embolism and thrombosis of arteries of the lower extremities; K92.2 Gastrointestinal hemorrhage, unspecified; N13.30 Unspecified hydronephrosis; D62 Acute posthemorrhagic anemia; I82.422 Acute embolism and thrombosis of left iliac vein; L03.314 Cellulitis of groin; T82.7XXA Infection and inflammatory reaction due to other cardiac and vascular devices, implants and grafts, initial encounter; I96 Gangrene, not elsewhere classified; E11.51 Type 2 diabetes mellitus with diabetic peripheral angiopathy without gangrene; R00.0 Tachycardia, unspecified; I10 Essential (primary) hypertension; I77.1 Stricture of artery; E11.40 Type 2 diabetes mellitus with diabetic neuropathy, unspecified; E78.5 Hyperlipidemia, unspecified; D64.9 Anemia, unspecified; I95.9 Hypotension, unspecified; R11.10 Vomiting, unspecified; D69.6 Thrombocytopenia, unspecified; E83.42 Hypomagnesemia; R31.9 Hematuria, unspecified; E83.51 Hypocalcemia; E66.9 Obesity, unspecified; E87.70 Fluid overload, unspecified; E87.6 Hypokalemia; R29.818 Other symptoms and signs involving the nervous system; B96.89 Other specified bacterial agents as the cause of diseases classified elsewhere; B96.20 Unspecified Escherichia coli [E. coli] as the cause of diseases classified elsewhere; B95.5 Unspecified streptococcus as the cause of diseases classified elsewhere; B95.2 Enterococcus as the cause of diseases classified elsewhere; Z79.82 Long term (current) use of aspirin; Z79.899 Other long term (current) drug therapy; Z87.891 Personal history of nicotine dependence; Z68.31 Body mass index [BMI] 31.0-31.9, adult; Z86.73 Personal history of transient ischemic attack (TIA), and cerebral infarction without residual deficits; Z83.3 Family history of diabetes mellitus; Z82.49 Family history of ischemic heart disease and other diseases of the circulatory system
CPT/HCPCS: 36245; 36415; 36558; 36600; 37184; 37185; 37221; 37224; 71010; 71020; 74174; 74176; 74420; 75625; 75635; 75710; 76604; 76770; 76937; 77001; 78452; 80048; 80053; 81001; 82270; 82550; 82803; 82962; 83010; 83615; 83735; 85007; 85014; 85018; 85025; 85027; 85049; 85384; 85520; 85610; 85730; 86850; 86900; 86901; 86920; 87040; 87045; 87070; 87075; 87076; 87086; 87116; 87186; 87205; 87493; 88112; 88304; 88305; 88307; 88311; 93005; 93010; 93017; 93306; 93965; 94002; 94003; 94640; 94760; 96365; 96366; A4217; A4649; A9270-GY; A9502; C1725; C1726; C1751; C1757; C1758; C1760; C1768; C1769; C1874; C1887; C1894; C2617; C2623; C9113; C9250; G8978-GP; G8979-GP; G8987-GO; G8988-GO; J0171; J0330; J0690; J1100; J1170; J1630; J1644; J1720; J1815; J2060; J2250; J2270; J2310; J2370; J2405; J2543; J2704; J2710; J2765; J2785; J2997; J3010; J3246; J3370; J3475; J3480; J3490; J7030; J7040; J7050; J7070; J7120; P9016; P9017; P9035; P9047; Q9966; Q9967; Q9968

== ENCOUNTER 2016-07-24 17:48 | Inpatient (IN) | payer MEDICARE ==
[2016-07-24] MEDS ORDERED: D50W (25GM) IV PRN (19:13)
[2016-07-24] MEDS: TYLENOL PO PRN (21:00)
[2016-07-24] MEDS: ELIQUIS PO SCH (22:37)
[2016-07-24] MEDS: ZOSYN/NS 4.5GM/100ML 100 ML IV SCH (22:39)
[2016-07-25] MEDS: NOVOLOG SUB-Q SCH ×5 (04:19→23:16)
[2016-07-25 05:12] LABS: Albumin 1.8 g/dL (3.9-5); Albumin/Globulin Ratio 0.4 %; Alkaline Phosphatase 106 units/L (35-129); Bilirubin,Total 0.4 mg/dL (0.1-1.2); Blood Urea Nitrogen 9 mg/dL (7-17); Calcium 8.5 mg/dL (8.4-10.2); Carbon Dioxide 23 mmol/L (22-30); Chloride 104.1 mmol/L (98-107); Glucose 93 mg/dL (65-100); Potassium 3.3 mmol/L (3.6-5.0); Sodium 139 mmol/L (137-145); Total Protein 6.4 g/dL (6.3-8.2)
[2016-07-25 05:14] LABS: Alanine Aminotransferase < 5 units/L (7-56); Anion Gap 15 mmol/L
[2016-07-25 05:16] LABS: Basophils % (Auto) 0.3 % (0.0-1.8); Eosinophils % (Auto) 0.3 % (0.0-4.3); Hematocrit 23.2 % (30.3-42.9); Hemoglobin 7.9 gm/dl (10.1-14.3); Mean Corpuscular HGB Conc 34 % (30-34); Mean Corpuscular Hemoglobin 29 pg (28-32); Mean Corpuscular Volume 85 fl (79-97); Platelet Count 370 K/mm3 (140-440); Red Blood Count 2.73 M/mm3 (3.65-5.03); Red Cell Distribution Width 15.4 % (13.2-15.2); White Blood Count 8.5 K/mm3 (4.5-11.0)
[2016-07-25] MEDS: ZOSYN/NS 4.5GM/100ML 100 ML IV SCH ×3 (06:00→23:16)
[2016-07-25] MEDS ORDERED: K-DUR PO SCH (08:00)
[2016-07-25] MEDS ORDERED: NON-FORMULARY (Potassium Chloride [Potassium Chloride] 10 MEQ) PO SCH (08:00)
[2016-07-25] MEDS: TYLENOL PO PRN (09:36)
[2016-07-25] MEDS ORDERED: COLACE PO SCH (10:00)
[2016-07-25] MEDS: HALFPRIN EC PO SCH (10:01)
[2016-07-25] MEDS: PROTONIX PO SCH (10:02)
[2016-07-25] MEDS: FEOSOL PO SCH (10:02)
[2016-07-25] MEDS: ELIQUIS PO SCH (10:02)
[2016-07-25] MEDS: PLAVIX PO SCH (10:02)
[2016-07-25] MEDS: TENORMIN PO SCH (10:04)
[2016-07-25] MEDS ORDERED: K-DUR PO NR (12:00)
[2016-07-25] MEDS ORDERED: COLACE PO PRN (12:37)
--- NOTE | 2016-07-25 12:37 | History and Physical Report ---
History of Present Illness Date: 07/25/16 Referring Facility: [facility] Date of admission: 07/24/16 17:48 Chief Complaint: left AKA History of present illness: POST ADMISSION PHYSICIAN EVALUATION ONSET DATE: 06/13/2016 IMPAIRMENT GROUP CODE: 05.3 ETIOLOGIC DIAGNOSIS: left AKA STATUS CHANGES SINCE PREADMISSION SCREENING: PAS has been reviewed. In comparison, pt is with bowel incontinence on today; will d/c scheduled colace. Pt reports intermittent phantom pain, however, improved. Pt was able to participate with therapies on this AM and continues with functional decline. Pt remains an appropriate candidate for IPR course. PREVIOUS FUNCTIONAL STATUS: Independent with ADLs, gait, transfers CURRENT FUNCTIONAL STATUS: Independent to totalA for ADLs HPI 55 y.o. female with known PVD, initially admitted to [facility] for scheduled thrombolysis to LLE. Unfortunately, pt was found to have an occlusion at the common femoral artery and SFA; required left femoral endarterectomy and fem-pop bypass. Following procedure, pt required ICU admission due to acute respiratory failure and intubation. Pt later developed left groin hematoma, acute blood loss anemia (pt received a total of 23 U pRBCs, 1 FFP, 1 platelets) , hematuria and acute renal failure. Further complications included retroperitoneal bleed leading to bilateral hydronephrosis, s/p urethral stents; right foot drop; ischemic right common femoral artery occlusion requiring thromboendarterectomy (07/03/16); extensive necrosis/infection at the left groin with thrombosed bypass graft and hematoma, which required debridement; unfortunately, LLE was unsalvageable, s/p left AKA (07/15/2016). Pt required placement of wound vac to LLE extending over to right groin. Pt also seen by ID ; will require 4 weeks of IV Zosyn. Due to prolonged hospitalization and recent AKA, pt was noted to have severe functional decline. Pt is now admitted to IRU for aggressive therapies and ongoing medical management. Past History Past Medical History: diabetes, hypertension, PVD Past Surgical History: Other (multiple revasculaization procedure; urtheral stents; left AKA) Social history: lives with family (sister). denies: smoking, alcohol abuse Family history: diabetes, hypertension Medications and Allergies Allergies Allergy/AdvReac Type Severity Reaction Status Date / Time No Known Allergies Allergy Verified 01/24/15 14:51 Home Medications Medication Instructions Recorded Confirmed Last Taken Type Aspirin EC [Aspirin Enteric Coated 81 mg PO QDAY 01/25/15 06/13/16 06/13/16 History TAB] Atenolol/Chlorthalidone 1 each PO DAILY 01/25/15 06/13/16 06/13/16 History [Atenolol-Chlorthalidone 50-25] Clopidogrel [Plavix] 75 mg PO QDAY 01/25/15 06/13/16 06/13/16 History Ergocalciferol [Vitamin D2] 1 cap PO QWEEK 01/25/15 06/13/16 06/09/16 History Gabapentin [Neurontin] 300 mg PO Q8H 01/25/15 06/13/16 06/13/16 History Potassium Chloride 10 meq PO QDAY 01/25/15 06/13/16 06/13/16 History AtorvaSTATin [Lipitor] 40 mg PO QHS 06/22/16 06/22/16 Unknown History Ferrous Sulfate [Feosol 325 MG tab] 325 mg PO QDAY 06/22/16 06/22/16 Unknown History Metformin HCl [Glucophage] 1,000 mg PO BID 06/22/16 06/22/16 Unknown History Apixaban [Eliquis] 5 mg PO Q12HR tablet 07/01/16 Unknown Rx Clopidogrel [Plavix] 75 mg PO QDAY tablet 07/01/16 Unknown Rx Active Meds: Active Medications Acetaminophen (Tylenol) 650 mg PO Q4H PRN PRN Reason: Pain MILD(1-3)/Fever >100.5/LI Last Admin: 07/25/16 09:36 Dose: 650 mg Acetaminophen/Hydrocodone Bitart (Hull 10/325) 1 each PO Q6H PRN PRN Reason: Pain, Moderate (4-6) Aspirin (Halfprin Ec) 81 mg PO QDAY [facility] Last Admin: 07/25/16 10:01 Dose: 81 mg Atenolol (Tenormin) 50 mg PO QDAY [facility] Last Admin: 07/25/16 10:04 Dose: 50 mg Atorvastatin Calcium (Lipitor) 40 mg PO QHS [facility] Last Admin: 07/24/16 21:00 Dose: 40 mg Clopidogrel Bisulfate (Plavix) 75 mg PO QDAY [facility] Last Admin: 07/25/16 10:02 Dose: 75 mg Dextrose (D50w (25gm)) 50 ml IV PRN PRN PRN Reason: Hypoglycemia Docusate Sodium (Colace) 100 mg PO BID [facility] Last Admin: 07/25/16 11:00 Dose: Not Given Ergocalciferol (Vitamin D2) 50,000 unit PO QWEEK [facility] Fentanyl (Duragesic) 25 mcg TD Q3D [facility] Ferrous Sulfate (Feosol) 325 mg PO QDAY [facility] Last Admin: 07/25/16 10:02 Dose: 325 mg Piperacillin Sod/Tazobactam Sod (Zosyn/Ns 4.5gm/100ml) 100 mls @ 200 mls/hr IV Q8HR [facility] Last Admin: 07/25/16 06:00 Dose: 200 mls/hr Insulin Aspart (Novolog) 0 units SUB-Q ACHS ANNA PRN Reason: Protocol Last Admin: 07/25/16 12:22 Dose: Not Given Pantoprazole Sodium (Protonix) 40 mg PO QDAY [facility] Last Admin: 07/25/16 10:02 Dose: 40 mg Potassium Chloride (K-Dur) 40 meq PO ONCE NR Stop: 07/25/16 15:00 Potassium Chloride (K-Dur) 20 meq PO QDAY [facility] Review of Systems All systems: negative Constitutional: poor appetite Ears, nose, mouth and throat: no headache Cardiovascular: no chest pain, no lightheadedness Respiratory: no cough, no shortness of breath Gastrointestinal: no nausea, no vomiting, no diarrhea, no constipation Genitourinary Female: other (black) Neurological: other (intermittent phantom sensations) Exam - Constitutional Vitals: Vital Signs - 12hr 07/25/16 07/25/16 07/25/16 08:00 09:36 10:04 Temperature 98.5 F Pulse Rate 108 H Pulse Rate [ 108 H Brachial] Respiratory 20 22 Rate Blood Pressure 131/74 Blood Pressure 131/74 [Right Arm] O2 Sat by Pulse 100 Oximetry 07/25/16 10:36 Temperature Pulse Rate Pulse Rate [ Brachial] Respiratory 20 Rate Blood Pressure Blood Pressure [Right Arm] O2 Sat by Pulse Oximetry General appearance: no acute distress, obese, other (lying in bed) - EENT Eyes: EOM intact ENT: hearing intact - Neck Neck: supple, normal ROM - Respiratory Respiratory effort: normal Respiratory: bilateral: CTA - Cardiovascular Rhythm: regular Heart Sounds: Present: S1 & S2 - Extremities Extremity abnormal: other (wound vac to left AKA residual limb, extending into right groin region) - Gastrointestinal General gastrointestinal: Present: soft, non-tender, non-distended, normal bowel sounds - Integumentary Integumentary: Present: dry - Musculoskeletal Musculoskeletal: generalized weakness, other (moves BUE with good strength; 2/5 RLE, right foot drop) - Neurologic Neurologic: CNII-XII intact, other (decreased sensation at RLE) - Psychiatric Psychiatric: no memory intact (oriented to self; some short term memory loss), cooperative, depressed - Allied health notes FIMS assesment as documented by PT/OT/ST: Grooming Grooming FIM Score 5. Supervision Toileting Toileting FIM Score 1. Total Assistance Social interaction/Memory/Problem solving Social Interaction FIM Score 5. Supervision Memory FIM Score 3. Moderate Assistance Problem Solving FIM Score 3. Moderate Assistance Transfers Bed/Chair/Wheelchair Transfers 1. Total Assistance FIM Score Toilet Transfers FIM Score 1. Total Assistance Patient transferred to: Shower Tub Transfers FIM Score 0. Activity does not occr Eating Eating FIM Score 7. Complete Yates Dressing-Upper body Upper Body Dressing FIM Score 5. Supervision Dressing-lower body Lower Body Dressing FIM Score 1. Total Assistance - Labs CBC & Chem 7: 07/25/16 04:06 07/25/16 04:06 Labs: Laboratory Results - last 72 hr 07/24/16 07/25/16 07/25/16 23:50 04:06 04:06 WBC 8.5 RBC 2.73 L Hgb 7.9 L Hct 23.2 L MCV 85 MCH 29 MCHC 34 RDW 15.4 H Plt Count 370 Lymph % (Auto) 26.4 Davidson % (Auto) 9.2 H Eos % (Auto) 0.3 Baso % (Auto) 0.3 Lymph # 2.2 Davidson # 0.8 Eos # 0.0 Baso # 0.0 Seg Neutrophils % 63.8 Seg Neutrophils # 5.4 Sodium 139 Potassium 3.3 L Chloride 104.1 Carbon Dioxide 23 Anion Gap 15 BUN 9 Creatinine 0.5 L Estimated GFR > 60 BUN/Creatinine Ratio 18.00 Glucose 93 POC Glucose 79 Calcium 8.5 Total Bilirubin 0.4 AST 18 ALT < 5 L Alkaline Phosphatase 106 Total Protein 6.4 Albumin 1.8 L Albumin/Globulin Ratio 0.4 07/25/16 07/25/16 07:25 11:45 WBC RBC Hgb Hct MCV MCH MCHC RDW Plt Count Lymph % (Auto) Davidson % (Auto) Eos % (Auto) Baso % (Auto) Lymph # Davidson # Eos # Baso # Seg Neutrophils % Seg Neutrophils # Sodium Potassium Chloride Carbon Dioxide Anion Gap BUN Creatinine Estimated GFR BUN/Creatinine Ratio Glucose POC Glucose 132 H 106 H Calcium Total Bilirubin AST ALT Alkaline Phosphatase Total Protein Albumin Albumin/Globulin Ratio Assessment and Plan Assessment and plan: 55 y.o. female with history of PVD, now s/p left AKA following complicated hospital course. The patient is medically stable, however, requires ongoing medical management. Pt is appropriate for inpatient rehabilitation admission and is thought to be able to tolerate at least 3 hours of therapy a day, 5 days a week including 1.5 hours of physical therapy and 1.5 hours of occupational therapy. Patient is able to understand and follow basic directions and has attainable rehab goals. Potential barriers/complications include falls, infection, depression, syncope, hypotension, skin breakdown, DVT, PE. Plan 1. Rehabilitation- Pt will undergo multidisciplinary/integrative rehab PT/OT, Nursing. Areas to be addressed include, but are not limited to PT for mobility , strengthening, transfer training, ROM, endurance, stairs, balance; OT for ADLs , household tasks, adaptive equipment; Nursing for carryover of therapies, pain control, education, skin integrity, medication management, bowel/bladder management; Nutrition as needed; resident services manager for discharge planning and equipment needs. Potential interventions include appropriate assistive device or adaptive equipment; will likely require sliding board for transfers. Expected overall level of functional improvement by discharge is Vandana to CGA for ADLs at wheelchair/bed level; CGA-Mago for sliding board transfers; Vandana for wheelchair mobility. Pt will tentatively be discharged home with outpatient PT. Estimated length of stay is 2 weeks. 2. left AKA- continue wound vac. Wound care nurse to follow; pain control; follow for phantom sensation/pain; ABX x 4weeks 3. acute blood loss anemia- post-operative and with recent history of retroperitoneal bleed; follow 4. hypokalemia- Kdur; follow 5. HTN- stable on current regimen; follow and avoid hypotension 6. DM- SSI, ADA diet; avoid hypoglycemia 7. PVD- ASA, plavix, statin 8. GI px- protonix 9. DVT px- right LE SCD; Eliquis not needed per Vascular Surgery prison; continue on ASA - Patient Problems (1) Above knee amputation of left lower extremity Current Visit: Yes Status: Acute (2) Acute blood loss anemia Current Visit: Yes Status: Acute (3) HTN (hypertension) Current Visit: Yes Status: Acute Qualifiers: Hypertension type: essential hypertension (4) Peripheral vascular disease of extremity Current Visit: No Status: Acute (5) Diabetes Current Visit: Yes Status: Acute Qualifiers: Diabetes mellitus type: type 2 Diabetes mellitus complication status: with hyperglycemia Diabetes mellitus prison 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
[2016-07-25] MEDS: DURAGESIC TD SCH (12:54)
[2016-07-26] MEDS: TYLENOL PO PRN ×4 (02:39→23:28)
[2016-07-26] MEDS: ZOSYN/NS 4.5GM/100ML 100 ML IV SCH ×3 (06:59→21:58)
[2016-07-26] MEDS ORDERED: K-DUR PO SCH (08:00)
[2016-07-26] MEDS: NOVOLOG SUB-Q SCH ×4 (08:06→21:46)
[2016-07-26] MEDS: PLAVIX PO SCH (08:41)
[2016-07-26] MEDS: HALFPRIN EC PO SCH (08:41)
[2016-07-26] MEDS: K-DUR PO SCH (08:41)
[2016-07-26] MEDS: FEOSOL PO SCH (08:41)
[2016-07-26] MEDS: PROTONIX PO SCH (08:41)
[2016-07-26] MEDS: TENORMIN PO SCH (08:42)
--- NOTE | 2016-07-26 10:24 | IRU Plan of Care ---
Interdisciplinary Plan of Care - IP IRU INTERDISCIPLINARY PLAN: [facility] Inpatient Rehab Unit Plan of Care IRU Interdisciplinary Care Plan Start: 07/24/16 18: 30 Freq: Admission then PRN Status: Active Document 07/25/16 23:23 DB (Rec: 07/25/16 23:34 DB [id number]) Interdisciplinary Problem List Interdisciplinary Problem List Interdisciplinary Problem List Impaired Bathing/Grooming Query Text:Answers will Trigger Problems Impaired Dressing and Outcomes on Worklist. Impaired Mobility Impaired Transfers Impaired Toileting Impaired Nutrition Pain Management Knowledge Deficits Impaired Skin/Tissue Integrity Impaired Safety Medications Education Diabetes Education IRU Interdisciplinary Care Plan Therapy Services Therapy Services Will Include: Physical Therapy Query Text:Patient will be seen for a Occupational Therapy minimum of 3 hours of daily therapy 5 out of 7 days a week. Therapy intensity may be adjusted within a 7 consecutive day period to effectively serve the individual needs of the patient. Treatment Frequency/Intensity/Duration Treatment Frequency 5 days per week Treatment Intensity 1.5 hours per discipline (PT and OT) daily Treatment Duration 10-14 days Problem Area: Eating/Swallowing Eating/Swallowing Outcomes Eating/Swallowing Interventions Problem Area: Bathing/Grooming Bathing/Grooming Outcomes Improve Dewitt w/ Bathing Bathing/Grooming Interventions Use of Assistive Devices Therapeutic Activity Balance Work Activity Tolerance Work Patient/Caregiver Education Problem Area: Dressing Dressing Outcomes Improve Dewitt w/ LB Dressing Dressing Interventions ADL Training Use of Assistive Devices Neuromuscular Re-Education Balance Work Patient/Caregiver Education Problem Area: Mobility Mobility Outcomes Improve Dewitt w/ Bed Mobility Improve Dewitt w/ Wheelchair Mobility Interventions Therapeutic Exercise Neuromuscular Re-Ed. Modalities Patient/Caregiver Education Bed Mobility Work W/C Mobility Work Problem Area: Transfers Transfers Outcomes Improve Dewitt w/ Bed Transfers Improve Dewitt w/ Toilet Transfers Improve Dewitt w/ Car Transfers Transfers Interventions Transfer Training Therapeutic Exercise Neuromuscular Re-Education Modalities Use of Assistive Devices Patient/Caregiver Education Problem Area: Bowel/Bladder Managment Bowel/Bladder Outcomes Bowel/Bladder Interventions Problem Area: Toileting Toileting Outcomes Improve Dewitt w/ Toileting Toileting Interventions ADL Training Balance Work Problem Area: Nutrition Nutrition Outcomes Understand and Comply w/ Diet Improve/Maintain Protein Status Improve/Maintain Oral Intake Nutrition Interventions Nutritional Counseling Monitor Nutrient Intake Patient/Caregiver Education Problem Area: Comprehension Comprehension Outcomes Comprehension Interventions Problem Area: Expression Expression Outcomes Expression Interventions Problem Area: Problem Solving Problem Solving Outcomes Problem Solving Interventions Problem Area: Memory Memory Outcomes Memory Interventions Problem Area: Pain Management Pain Management Outcomes Demonstrate/Verbalize Pain Strategies Pain Management Interventions Medication Management Problem Area: Knowledge Deficits Knowledge Deficits Outcomes Verbalize Precautions Knowledge Deficits Interventions Disease/Injury/Sx. Intervention Education Medication Use Education Body Mechanics/Joint Protection Education Health Maintainence Education Safety Education Problem Area: Skin/Tissue Integrity Skin/Tissue Integrity Outcomes Exhibit Healing of Wound/ Incision Demonstrate Understanding of Pressure Relief Demonstrate Understanding of Self Wound Care Skin/Tissue Integrity Interventions Skin/Wound Care Pressure Relief Instruction Positioning/Turning Problem Area: Social Interaction Social Interaction Outcomes Social Interaction Interventions Problem Area: Adjustment to Disability Adjustment to Disability Outcomes Adjustment to Disability Interventions Problem Area: Discharge Concerns Discharge Concerns Outcomes Discharge Home w/ Necessary Equipment Have Home Health/Outpatient Services Discharge Concerns Interventions Discharge Planning Family/Caregiver Conference Family/Caregiver Training Problem Area: Community Reintegration Community Reintegration Outcomes Demonstrate Understanding of Community Resources Community Reintegration Interventions Provide Community Resources Problem Area: Home Management Home Management Outcomes Improve Dewitt w/ Home Management Home Management Interventions Clothing Care Activity Tolerance Work Problem Area: Safety Safety Outcomes Provide Safe Environment Perform Selfcare Safely Demonstrate Good Safety w/ Transfers/Mobility Safety Interventions Identify Fall Risk Justin Pt. to Environment Reduce Environmental Hazards Problem Area: Medication Education Medication Education Outcomes Patient/Caregiver will Verbalize Understanding of Medications Medication Education Interventions Explain Administration/Side Effects/Interactions Problem Area: Diabetes Education Diabetes Education Outcomes Demonstrate Knowledge of Resources Availlable in Diabetic Ed. Folder Diabetes Education Interventions Give Pt. Diabetes Education Folder Discuss Pathophysiology of Diabetes Problem Area: Oxygenation Oxygenation Outcomes Oxygenation Interventions Problem Area: Cardiovascular Cardiovascular Outcomes Cardiovascular Interventions Physician Only Medical Prognosis and Rehabilitation Patient demonstrates good Potential (Completed by Physician) rehab potential. Medical Prognosis: Good This plan of care has been developed based on the findings from the pre- admission assessment, post admission physician evaluation, information gathered from the assessments from all therapy disciplines and other pertinent clinicians. The plan of care has been reviewed and discussed in collaboration with the interdisciplinary team. The plan of care will be reviewed and updated at least weekly. 55 y.o. female with history of PVD, now s/p left AKA following complicated hospital course. The patient remains at risk for falls, infection, depression, syncope, hypotension, skin breakdown, DVT, PE. Will need ongoing medical management for anemia, hypokalemia, HTN, DM; wound care nurse for wound vac maintenance. Pt is tolerating therapies; will likely require sliding board for transfers and some assistance at home. Goal is wheelchair level independence. Pt remains an appropriate candidate for IRU admission.
[2016-07-26] MEDS: NORCO 10/325 PO PRN (18:57)
[2016-07-27] MEDS: NORCO 10/325 PO PRN ×2 (04:10→13:45)
[2016-07-27] MEDS: ZOSYN/NS 4.5GM/100ML 100 ML IV SCH ×3 (05:44→21:18)
[2016-07-27] MEDS: NOVOLOG SUB-Q SCH ×4 (07:04→23:00)
[2016-07-27] MEDS: HALFPRIN EC PO SCH (08:44)
[2016-07-27] MEDS: K-DUR PO SCH (08:44)
[2016-07-27] MEDS: TENORMIN PO SCH (08:44)
[2016-07-27] MEDS: PLAVIX PO SCH (08:44)
[2016-07-27] MEDS: PROTONIX PO SCH (08:44)
[2016-07-27] MEDS: FEOSOL PO SCH (08:44)
[2016-07-28] MEDS: ZOSYN/NS 4.5GM/100ML 100 ML IV SCH ×3 (06:58→22:15)
[2016-07-28 07:11] LABS: Hematocrit 24.3 % (30.3-42.9); Mean Corpuscular HGB Conc 33 % (30-34); Mean Corpuscular Hemoglobin 28 pg (28-32); Mean Corpuscular Volume 84 fl (79-97); Platelet Count 361 K/mm3 (140-440); Red Blood Count 2.89 M/mm3 (3.65-5.03); Red Cell Distribution Width 15.4 % (13.2-15.2); White Blood Count 7.2 K/mm3 (4.5-11.0)
[2016-07-28 07:23] LABS: Anion Gap 17 mmol/L; Blood Urea Nitrogen 9 mg/dL (7-17); Calcium 8.4 mg/dL (8.4-10.2); Carbon Dioxide 24 mmol/L (22-30); Chloride 105.1 mmol/L (98-107); Glucose 85 mg/dL (65-100); Potassium 3.7 mmol/L (3.6-5.0); Sodium 142 mmol/L (137-145)
[2016-07-28] MEDS: NOVOLOG SUB-Q SCH ×4 (08:00→23:00)
[2016-07-28] MEDS: TENORMIN PO SCH (09:00)
[2016-07-28] MEDS: FEOSOL PO SCH (09:54)
[2016-07-28] MEDS: PLAVIX PO SCH (09:55)
[2016-07-28] MEDS: K-DUR PO SCH (09:55)
[2016-07-28] MEDS: PROTONIX PO SCH (09:55)
[2016-07-28] MEDS: HALFPRIN EC PO SCH (09:55)
[2016-07-28] MEDS: VITAMIN D2 PO SCH (09:57)
[2016-07-28] MEDS: NORCO 10/325 PO PRN ×2 (10:05→16:19)
[2016-07-28] MEDS: DURAGESIC TD SCH (11:41)
--- NOTE | 2016-07-28 12:59 | Progress Note ---
Assessment and Plan 55 y.o. female with history of PVD, now s/p left AKA following complicated hospital course - left AKA- pain control; ABX x 4weeks; wound vac care per ET nurse - acute blood loss anemia- improving - hypokalemia- resolved - HTN- well controlled - DM- SSI, ADA diet; well controlled - PVD- ASA, plavix, statin - Patient Problems (1) Above knee amputation of left lower extremity Current Visit: Yes Status: Acute (2) Acute blood loss anemia Current Visit: Yes Status: Acute (3) HTN (hypertension) Current Visit: Yes Status: Acute Qualifiers: Hypertension type: essential hypertension (4) Peripheral vascular disease of extremity Current Visit: No Status: Acute (5) Diabetes Current Visit: Yes Status: Acute Qualifiers: Diabetes mellitus type: type 2 Diabetes mellitus complication status: with hyperglycemia Diabetes mellitus continuous churn buttermaker insulin use: without continuous churn buttermaker use Qualified Code(s): E11.65 - Type 2 diabetes mellitus with hyperglycemia Subjective Date of service: 07/28/16 Principal diagnosis: left AKA Interval history: Pt seen in room this AM; F/U IPR, s/p left AKA. Pt reports some sacral discomfort from sitting up in wheelchair; otherwise, no new complaints Objective - Constitutional Vitals: Vital Signs - 12hr 07/28/16 07/28/16 07/28/16 07:58 09:00 10:05 Temperature 97.6 F Pulse Rate 84 Pulse Rate [ 84 Brachial] Respiratory 18 22 Rate Blood Pressure 132/61 Blood Pressure 132/61 [Left Arm] O2 Sat by Pulse 100 Oximetry 07/28/16 07/28/16 11:05 11:41 Temperature Pulse Rate Pulse Rate [ Brachial] Respiratory 20 20 Rate Blood Pressure Blood Pressure [Left Arm] O2 Sat by Pulse Oximetry General appearance: Present: no acute distress - EENT Eyes: EOM intact ENT: hearing intact - Neck Neck: supple, normal ROM - Respiratory Respiratory effort: normal Respiratory: bilateral: CTA - Cardiovascular Rhythm: regular Heart Sounds: Present: S1 & S2 Extremity abnormal: other (wound vac in place to left LE) - Gastrointestinal General gastrointestinal: Present: soft, non-tender, non-distended, normal bowel sounds - Musculoskeletal Musculoskeletal: generalized weakness - Neurologic Neurologic: CNII-XII intact - Psychiatric Psychiatric: appropriate mood/affect, cooperative - Allied health notes Allied health notes reviewed: PT (max-totalA for transfers; totalA for wheelchair mobility), OT (s/u to totalA for ADLs) - Labs CBC & Chem 7: 07/28/16 06:30 07/28/16 06:30 Labs: Abnormal lab results 07/28/16 07/28/16 07/28/16 Range/Units 06:30 06:30 11:36 RBC 2.89 L (3.65-5.03) M/mm3 Hgb 8.0 L (10.1-14.3) gm/dl Hct 24.3 L (30.3-42.9) % RDW 15.4 H (13.2-15.2) % Creatinine 0.6 L (0.7-1.2) mg/dL POC Glucose 110 H (70-105)
[2016-07-29] MEDS: ZOSYN/NS 4.5GM/100ML 100 ML IV SCH ×3 (06:30→22:46)
[2016-07-29] MEDS: NOVOLOG SUB-Q SCH ×4 (08:00→23:19)
[2016-07-29] MEDS: FEOSOL PO SCH (10:05)
[2016-07-29] MEDS: K-DUR PO SCH (10:05)
[2016-07-29] MEDS: HALFPRIN EC PO SCH (10:05)
[2016-07-29] MEDS: PROTONIX PO SCH (10:05)
[2016-07-29] MEDS: PLAVIX PO SCH (10:05)
[2016-07-29] MEDS: NORCO 10/325 PO PRN (10:13)
[2016-07-29] MEDS: TENORMIN PO SCH (10:18)
--- NOTE | 2016-07-29 13:34 | Progress Note ---
Assessment and Plan 55 y.o. female with history of PVD, now s/p left AKA following complicated hospital course - left AKA- pain control; ABX x 4weeks; ongoing wound vac care per ET nurse - acute blood loss anemia- recheck on 07/31; mild hematuria noted; discussed with Vascular, pt requires both ASA and Plavix; will follow H/H closely - HTN- remains well controlled - DM- diet controlled; has not required any sliding scale, although it is available - PVD- ASA, plavix, statin - right foot drop- aware - team conference held this AM- independent with eating, s/u for grooming and UB dressing; Mago for bathing and WC mobility; maxA for LB dressing and toilet transfers, modA for bed mobility; total Af or toileting. Barriers- right foot drop, decreased balance; will address size of wheelchair to improve independence with wheelchair mobility; needs seat cushion to prevent breakdown. Tentative d/c date set for 08/08. 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 Pt is stable, rated 3-4/10 on average. No new complaints on today Objective - Constitutional Vitals: Vital Signs - 12hr 07/29/16 07/29/16 07/29/16 09:20 10:13 10:18 Temperature 97.9 F Pulse Rate 91 H Pulse Rate [ 97 H Left Radial] Respiratory 18 22 Rate Blood Pressure 134/75 Blood Pressure 134/75 [Left Arm] O2 Sat by Pulse 100 Oximetry General appearance: Present: no acute distress - EENT Eyes: EOM intact ENT: hearing intact - Neck Neck: supple, normal ROM - Respiratory Respiratory effort: normal Respiratory: bilateral: CTA - Cardiovascular Rhythm: regular Heart Sounds: Present: S1 & S2 - Gastrointestinal General gastrointestinal: Present: non-tender, non-distended, normal bowel sounds - Integumentary Integumentary: dry - Musculoskeletal Musculoskeletal: other (wound vac in place to LLE) - Neurologic Neurologic: CNII-XII intact, other (right foot drop; 2/5 knee/hip flexion on right ) - Psychiatric Psychiatric: appropriate mood/affect, cooperative - Labs CBC & Chem 7: 07/28/16 06:30 07/28/16 06:30 Labs: Abnormal lab results 07/28/16 07/28/16 07/29/16 Range/Units 16:22 21:32 06:29 POC Glucose 155 H 141 H 128 H (70-105) 07/29/16 Range/Units 11:23 POC Glucose 133 H (70-105)
[2016-07-30] MEDS: ZOSYN/NS 4.5GM/100ML 100 ML IV SCH ×3 (06:04→21:03)
[2016-07-30] MEDS: NORCO 10/325 PO PRN ×3 (08:39→20:51)
[2016-07-30] MEDS: HALFPRIN EC PO SCH (08:41)
[2016-07-30] MEDS: FEOSOL PO SCH (08:41)
[2016-07-30] MEDS: PROTONIX PO SCH (08:42)
[2016-07-30] MEDS: PLAVIX PO SCH (08:42)
[2016-07-30] MEDS: K-DUR PO SCH (08:43)
[2016-07-30] MEDS: TENORMIN PO SCH (08:43)
[2016-07-30] MEDS: NOVOLOG SUB-Q SCH ×4 (08:44→22:00)
--- NOTE | 2016-07-30 13:46 | Progress Note ---
Assessment and Plan 55 y.o. female with history of PVD, now s/p left AKA following complicated hospital course - left AKA- pain controlled; ABX x 4weeks; ongoing wound vac care per ET nurse; case discussed with Vascular, consult placed for wound re-assessment - acute blood loss anemia- labs pending in AM; ongoing mild hematuria noted - HTN- stable - DM- diet controlled; has not required any sliding scale, although it is available - PVD- ASA, plavix, statin - right foot drop- ongoing - Patient Problems (1) Above knee amputation of left lower extremity Current Visit: Yes Status: Acute (2) Acute blood loss anemia Current Visit: Yes Status: Acute (3) HTN (hypertension) Current Visit: Yes Status: Acute Qualifiers: Hypertension type: essential hypertension (4) Peripheral vascular disease of extremity Current Visit: No Status: Acute (5) Diabetes Current Visit: Yes Status: Acute Qualifiers: Diabetes mellitus type: type 2 Diabetes mellitus complication status: with hyperglycemia Diabetes mellitus penitentiary insulin use: without intermediate teacher use Qualified Code(s): E11.65 - Type 2 diabetes mellitus with hyperglycemia Subjective Date of service: 07/30/16 Principal diagnosis: left AKA Interval history: Pt seen in room this AM; F/U IPR, s/p left AKA. Pt is without any new complaints on today; mild hematuria ongoing Objective - Constitutional Vitals: Vital Signs - 12hr 07/30/16 07/30/16 08:20 08:43 Temperature 97.8 F Pulse Rate 89 Pulse Rate [ 89 Right Brachial] Respiratory 18 Rate Blood Pressure 148/74 Blood Pressure 148/74 [Left Arm] O2 Sat by Pulse 100 Oximetry General appearance: Present: no acute distress - EENT Eyes: EOM intact ENT: hearing intact - Neck Neck: supple, normal ROM - Respiratory Respiratory effort: normal - Gastrointestinal General gastrointestinal: Present: soft, non-tender - Integumentary Integumentary: dry (RLE) - Musculoskeletal Musculoskeletal: right sided weakness (right foot drop) - Neurologic Neurologic: CNII-XII intact - Psychiatric Psychiatric: cooperative (flat affect) - Allied health notes Allied health notes reviewed: PT (mod-Mago x2 for transfers; min-modA for WC mobility, requires cues), OT (independent to totalA for ADLs) - Labs CBC & Chem 7: 07/28/16 06:30 07/28/16 06:30 Labs: Abnormal lab results 07/30/16 Range/Units 11:20 POC Glucose 106 H (70-105)
[2016-07-31 05:48] LABS: Hematocrit 25.8 % (30.3-42.9); Hemoglobin 8.2 gm/dl (10.1-14.3)
[2016-07-31] MEDS: ZOSYN/NS 4.5GM/100ML 100 ML IV SCH ×3 (05:56→22:17)
[2016-07-31] MEDS: NORCO 10/325 PO PRN ×3 (05:59→22:51)
[2016-07-31] MEDS: NOVOLOG SUB-Q SCH ×4 (08:00→22:52)
[2016-07-31] MEDS: K-DUR PO SCH (09:05)
[2016-07-31] MEDS: TENORMIN PO SCH (09:06)
[2016-07-31] MEDS: HALFPRIN EC PO SCH (09:06)
[2016-07-31] MEDS: PLAVIX PO SCH (09:06)
[2016-07-31] MEDS: FEOSOL PO SCH (09:06)
[2016-07-31] MEDS: PROTONIX PO SCH (09:06)
[2016-07-31] MEDS: DURAGESIC TD SCH (10:24)
--- NOTE | 2016-07-31 14:19 | Progress Note ---
Assessment and Plan 55 y.o. female with history of PVD, now s/p left AKA following complicated hospital course - left AKA- continue current pain regimen; requesting to be medicated prior to wound vac change scheduled on today; ABX x 4weeks, stop 08/15/16; pending Vascular wound re-assessment on today with wound care nurse - acute blood loss anemia- H/H stable; improved hematuria - HTN- elevated on today; follow - DM- diet controlled - PVD- ASA, plavix, statin - right foot drop- aware - Patient Problems (1) Above knee amputation of left lower extremity Current Visit: Yes Status: Acute (2) Acute blood loss anemia Current Visit: Yes Status: Acute (3) HTN (hypertension) Current Visit: Yes Status: Acute Qualifiers: Hypertension type: essential hypertension Qualified Code(s): I10 - Essential (primary) hypertension (4) Peripheral vascular disease of extremity Current Visit: No Status: Acute (5) Diabetes Current Visit: Yes Status: Acute Qualifiers: Diabetes mellitus type: type 2 Diabetes mellitus complication status: with hyperglycemia Diabetes mellitus longterm insulin use: without rodent exterminator use Qualified Code(s): E11.65 - Type 2 diabetes mellitus with hyperglycemia Subjective Date of service: 07/31/16 Principal diagnosis: left AKA Interval history: Pt seen in room this AM; F/U IPR, s/p left AKA. Pt reports 7/10 pain on today; requesting discharge date. Discharge planning was discussed; pt educated on need to have 24 hours supervision for assistance at time for d/c to home Objective - Constitutional Vitals: Vital Signs - 12hr 07/31/16 07/31/16 07/31/16 05:59 06:59 07:30 Temperature 98.4 F Pulse Rate Pulse Rate [ 96 H Right Brachial] Respiratory 18 18 18 Rate Blood Pressure Blood Pressure 163/67 [Right Arm] O2 Sat by Pulse 99 Oximetry 07/31/16 07/31/16 09:06 10:24 Temperature Pulse Rate 96 H Pulse Rate [ Right Brachial] Respiratory 18 Rate Blood Pressure 163/67 Blood Pressure [Right Arm] O2 Sat by Pulse Oximetry General appearance: Present: mild distress (pain) - EENT Eyes: EOM intact ENT: hearing intact - Neck Neck: supple, normal ROM - Respiratory Respiratory effort: normal Extremity abnormal: other (ongoing right foot drop noted; wound vac remains in place) - Integumentary Integumentary: dry - Musculoskeletal Musculoskeletal: generalized weakness - Neurologic Neurologic: CNII-XII intact, other (sensation is grossly intact) - Psychiatric Psychiatric: appropriate mood/affect, cooperative - Allied health notes Allied health notes reviewed: nursing (modA for bathing; Mago for UB dressing; totalA for LB dressing), PT (modA for squat pivot transfer; minAx2 for sit to stand transfers) - Labs CBC & Chem 7: 07/31/16 04:55 07/28/16 06:30 Labs: Abnormal lab results 07/31/16 Range/Units 04:55 Hgb 8.2 L (10.1-14.3) gm/dl Hct 25.8 L (30.3-42.9) %
[2016-07-31] MEDS ORDERED: SILVER NITRATE TP ONE (15:14)
--- NOTE | 2016-07-31 17:25 | Progress Note ---
Assessment and Plan Evaluated patient with VAC change in order to allow for focal silver nitrate application. Removed some samaria and a new area of dehiscence to allow for VAC extension We'll attempt to follow-up this upcoming week during an additional VAC change. VAC nurse at bedside and plan was discussed with her. Subjective Date of service: 07/31/16 Principal diagnosis: left AKA Interval history: Had increase in dark brown discharge from wound VAC. Assessed patient wall wound vacs removed. Excellent granulation tissue and right groin. No deep tissue visualized in right groin. Left groin has a large defect with granulation tissue, minimal fibrinous material, but serous discharge. Focal area with trace ooze treated with silver nitrate. Caudal left above-knee amputation defect with granulation tissue and focal area with trace ooze treated with silver nitrate. Focal dehiscence along the staple line laterally. 4 samaria removed and suture removed. This will allow for VAC extension into the area. Objective - Constitutional Vitals: Vital Signs - 12hr 07/31/16 07/31/16 07/31/16 05:59 06:59 07:30 Temperature 98.4 F Pulse Rate Pulse Rate [ 96 H Right Brachial] Respiratory 18 18 18 Rate Blood Pressure Blood Pressure 163/67 [Right Arm] O2 Sat by Pulse 99 Oximetry 07/31/16 07/31/16 07/31/16 09:06 10:00 10:24 Temperature Pulse Rate 96 H Pulse Rate [ 96 H Right Brachial] Respiratory 18 Rate Blood Pressure 163/67 Blood Pressure [Right Arm] O2 Sat by Pulse 99 Oximetry General appearance: Present: no acute distress - EENT Eyes: EOM intact ENT: hearing intact - Respiratory Respiratory effort: normal Extremities: normal temperature, normal color Extremity abnormal: other (see VAC report on Subjective) - Psychiatric Psychiatric: cooperative - Labs CBC & Chem 7: 07/31/16 04:55 07/28/16 06:30 Labs: Abnormal lab results 07/31/16 Range/Units 04:55 Hgb 8.2 L (10.1-14.3) gm/dl Hct 25.8 L (30.3-42.9) %
[2016-07-31] MEDS: TYLENOL PO PRN (17:52)
[2016-08-01] MEDS: NORCO 10/325 PO PRN ×3 (06:00→21:38)
[2016-08-01] MEDS: NOVOLOG SUB-Q SCH ×4 (08:35→21:50)
[2016-08-01] MEDS: HALFPRIN EC PO SCH (09:10)
[2016-08-01] MEDS: FEOSOL PO SCH (09:10)
[2016-08-01] MEDS: PLAVIX PO SCH (09:10)
[2016-08-01] MEDS: PROTONIX PO SCH (09:10)
[2016-08-01] MEDS: K-DUR PO SCH (09:11)
[2016-08-01] MEDS: TENORMIN PO SCH (09:11)
[2016-08-01] MEDS: THALITONE PO SCH (10:47)
[2016-08-01] MEDS: ZOSYN/NS 4.5GM/100ML 100 ML IV SCH ×5 (10:51→21:40)
--- NOTE | 2016-08-01 17:13 | Progress Note ---
Assessment and Plan 55 y.o. female with history of PVD, now s/p left AKA following complicated hospital course - left AKA- continue current pain regimen; continue ABX until 08/15/16 - acute blood loss anemia- recheck labs on Thursday - HTN- elevated this AM; home diuretic restarted; follow - DM- diet controlled - PVD- ASA, plavix, statin - right foot drop- aware - Patient Problems (1) Above knee amputation of left lower extremity Current Visit: Yes Status: Acute (2) Acute blood loss anemia Current Visit: Yes Status: Acute (3) HTN (hypertension) Current Visit: Yes Status: Acute Qualifiers: Hypertension type: essential hypertension Qualified Code(s): I10 - Essential (primary) hypertension (4) Peripheral vascular disease of extremity Current Visit: No Status: Acute (5) Diabetes Current Visit: Yes Status: Acute Qualifiers: Diabetes mellitus type: type 2 Diabetes mellitus complication status: with hyperglycemia Diabetes mellitus senior living insulin use: without senior living use Qualified Code(s): E11.65 - Type 2 diabetes mellitus with hyperglycemia Subjective Date of service: 08/01/16 Principal diagnosis: left AKA Interval history: Pt seen in room this AM; F/U IPR, s/p left AKA. Pt's sister in room and updated on progress; no new complaints Objective - Constitutional Vitals: Vital Signs - 12hr 08/01/16 08/01/16 08/01/16 08:39 09:11 16:00 Temperature 98.4 F 98.6 F Pulse Rate 104 H Pulse Rate [ 104 H Left Radial] Pulse Rate [ 88 Right Brachial] Respiratory 20 20 Rate Blood Pressure 176/83 Blood Pressure 176/83 176/85 [Left Arm] O2 Sat by Pulse 100 100 Oximetry General appearance: Present: no acute distress - EENT Eyes: EOM intact ENT: hearing intact - Neck Neck: supple, normal ROM - Respiratory Respiratory effort: normal Extremity abnormal: other (wound vac to LLE) - Gastrointestinal General gastrointestinal: Present: soft, non-tender - Musculoskeletal Musculoskeletal: generalized weakness - Neurologic Neurologic: CNII-XII intact - Psychiatric Psychiatric: cooperative (flat affect) - Allied health notes Allied health notes reviewed: PT (modA for transfers and wheelchair mobility), OT (Independent to Mago for ADLs, except maxA for toilet transfers, totalA for toileting) - Labs CBC & Chem 7: 07/31/16 04:55 07/28/16 06:30 Labs: Abnormal lab results 08/01/16 Range/Units 12:16 POC Glucose 134 H (70-105)
[2016-08-02] MEDS: ZOSYN/NS 4.5GM/100ML 100 ML IV SCH ×3 (05:02→22:00)
[2016-08-02] MEDS: NORCO 10/325 PO PRN ×2 (05:03→15:15)
[2016-08-02] MEDS: NOVOLOG SUB-Q SCH ×4 (08:00→22:00)
[2016-08-02] MEDS: TENORMIN PO SCH (09:09)
[2016-08-02] MEDS: THALITONE PO SCH (09:09)
[2016-08-02] MEDS: PLAVIX PO SCH (10:08)
[2016-08-02] MEDS: PROTONIX PO SCH (10:08)
[2016-08-02] MEDS: HALFPRIN EC PO SCH (10:08)
[2016-08-02] MEDS: FEOSOL PO SCH (10:08)
[2016-08-02] MEDS: K-DUR PO SCH (10:08)
--- NOTE | 2016-08-02 12:44 | Progress Note ---
Assessment and Plan 55 y.o. female with history of PVD, now s/p left AKA following complicated hospital course - left AKA- pain control; wound vac; ABX until 08/15/16 - acute blood loss anemia- recheck labs on Thursday; resolved hematuria - HTN- improved on today - DM- remains well controlled on ADA diet - PVD- ASA, plavix, statin - right foot drop- unchanged - Patient Problems (1) Above knee amputation of left lower extremity Current Visit: Yes Status: Acute (2) Acute blood loss anemia Current Visit: Yes Status: Acute (3) HTN (hypertension) Current Visit: Yes Status: Acute Qualifiers: Hypertension type: essential hypertension Qualified Code(s): I10 - Essential (primary) hypertension (4) Peripheral vascular disease of extremity Current Visit: No Status: Acute (5) Diabetes Current Visit: Yes Status: Acute Qualifiers: Diabetes mellitus type: type 2 Diabetes mellitus complication status: with hyperglycemia Diabetes mellitus nursing home insulin use: without terminal worker use Qualified Code(s): E11.65 - Type 2 diabetes mellitus with hyperglycemia Subjective Date of service: 08/02/16 Principal diagnosis: left AKA Interval history: Pt seen in room this AM; F/U IPR, s/p left AKA. Pt reports pain at right LE on today; resolved hematuria noted in black Objective - Constitutional Vitals: Vital Signs - 12hr 08/02/16 08/02/16 08:00 09:09 Temperature 98.2 F Pulse Rate 96 H Pulse Rate [ 96 H Right Brachial] Respiratory 20 Rate Blood Pressure 154/75 Blood Pressure 154/75 [Left Arm] O2 Sat by Pulse 100 Oximetry General appearance: Present: mild distress (pain) - EENT Eyes: EOM intact ENT: hearing intact - Neck Neck: normal ROM - Respiratory Respiratory effort: normal - Integumentary Integumentary: dry - Musculoskeletal Musculoskeletal: other (onging RLE foot drop) - Neurologic Neurologic: CNII-XII intact - Psychiatric Psychiatric: cooperative (flat affect) - Allied health notes Allied health notes reviewed: PT (maxA for transfers), OT (Independent to total A for ADLs) - Labs CBC & Chem 7: 07/31/16 04:55 07/28/16 06:30 Labs: Abnormal lab results 08/01/16 08/01/16 08/02/16 Range/Units 16:18 21:32 11:51 POC Glucose 111 H 120 H 106 H (70-105)
[2016-08-02] MEDS: CATHFLO IV ONE ×2 (21:38→23:00)
[2016-08-03] MEDS: ZOSYN/NS 4.5GM/100ML 100 ML IV SCH ×3 (06:40→22:56)
[2016-08-03] MEDS: NOVOLOG SUB-Q SCH ×4 (08:29→22:00)
[2016-08-03] MEDS: TENORMIN PO SCH (09:16)
[2016-08-03] MEDS: FEOSOL PO SCH (09:17)
[2016-08-03] MEDS: PROTONIX PO SCH (09:17)
[2016-08-03] MEDS: K-DUR PO SCH (09:17)
[2016-08-03] MEDS: THALITONE PO SCH (09:17)
[2016-08-03] MEDS: PLAVIX PO SCH (09:17)
[2016-08-03] MEDS: HALFPRIN EC PO SCH (09:18)
[2016-08-03] MEDS: DURAGESIC TD SCH (14:29)
[2016-08-03] MEDS: NORCO 10/325 PO PRN (18:39)
[2016-08-04 05:10] LABS: Hematocrit 29.8 % (30.3-42.9); Hemoglobin 9.7 gm/dl (10.1-14.3); Mean Corpuscular HGB Conc 32 % (30-34); Mean Corpuscular Hemoglobin 27 pg (28-32); Mean Corpuscular Volume 84 fl (79-97); Platelet Count 393 K/mm3 (140-440); Red Blood Count 3.55 M/mm3 (3.65-5.03); Red Cell Distribution Width 16.1 % (13.2-15.2); White Blood Count 7.4 K/mm3 (4.5-11.0)
[2016-08-04 05:21] LABS: Anion Gap 18 mmol/L; Blood Urea Nitrogen 6 mg/dL (7-17); Calcium 8.5 mg/dL (8.4-10.2); Carbon Dioxide 24 mmol/L (22-30); Chloride 100.6 mmol/L (98-107); Glucose 101 mg/dL (65-100); Sodium 140 mmol/L (137-145)
[2016-08-04 05:33] LABS: Potassium 2.9 mmol/L (3.6-5.0)
[2016-08-04] MEDS: NOVOLOG SUB-Q SCH ×4 (08:00→23:06)
[2016-08-04] MEDS: K-DUR PO SCH ×3 (08:23→23:05)
[2016-08-04] MEDS: ZOSYN/NS 4.5GM/100ML 100 ML IV SCH ×3 (08:27→23:06)
[2016-08-04] MEDS: HALFPRIN EC PO SCH (08:54)
[2016-08-04] MEDS: FEOSOL PO SCH (08:54)
[2016-08-04] MEDS: PLAVIX PO SCH (08:54)
[2016-08-04] MEDS: PROTONIX PO SCH (08:55)
[2016-08-04] MEDS: VITAMIN D2 PO SCH ×2 (08:55→11:37)
[2016-08-04] MEDS: TENORMIN PO SCH (09:03)
[2016-08-04] MEDS: THALITONE PO SCH (09:04)
[2016-08-04] MEDS: NORCO 10/325 PO PRN ×2 (11:39→23:20)
--- NOTE | 2016-08-04 12:18 | Progress Note ---
Assessment and Plan 55 y.o. female with history of PVD, now s/p left AKA following complicated hospital course, right foot drop - left AKA- pain control; wound vac changed on today; ABX until 08/15/16 - acute blood loss anemia- improved; continue to follow periodically - HTN- stable - DM- remains well controlled on ADA diet - PVD- ASA, plavix, statin - hypokalemia- KDur; recheck in AM - Patient Problems (1) Above knee amputation of left lower extremity Current Visit: Yes Status: Acute (2) Acute blood loss anemia Current Visit: Yes Status: Acute (3) HTN (hypertension) Current Visit: Yes Status: Acute Qualifiers: Hypertension type: essential hypertension Qualified Code(s): I10 - Essential (primary) hypertension (4) Peripheral vascular disease of extremity Current Visit: No Status: Acute (5) Diabetes Current Visit: Yes Status: Acute Qualifiers: Diabetes mellitus type: type 2 Diabetes mellitus complication status: with hyperglycemia Diabetes mellitus senior care insulin use: without senior care use Qualified Code(s): E11.65 - Type 2 diabetes mellitus with hyperglycemia (6) Hypokalemia Current Visit: Yes Status: Acute (7) Right foot drop Current Visit: Yes Status: Acute Subjective Date of service: 08/04/16 Principal diagnosis: left AKA Interval history: Pt seen in room this afternoon; F/U IPR, s/p left AKA. Wound care nurse present for wound vac change; +pain with change Objective - Constitutional Vitals: Vital Signs - 12hr 08/04/16 08/04/16 08/04/16 07:30 09:03 11:39 Temperature 98.3 F Pulse Rate 105 H Pulse Rate [ 88 Right Brachial] Respiratory 20 22 Rate Blood Pressure 114/65 Blood Pressure 149/57 [Right Arm] O2 Sat by Pulse 96 Oximetry General appearance: Present: mild distress (due to wound vac change) - EENT Eyes: EOM intact ENT: hearing intact - Neck Neck: supple, normal ROM - Respiratory Respiratory effort: normal Extremity abnormal: other (wounds open during wound vac change; no active bleeding noted; samaria in place to left residual limb) - Musculoskeletal Musculoskeletal: generalized weakness - Neurologic Neurologic: CNII-XII intact - Psychiatric Psychiatric: cooperative - Allied health notes Allied health notes reviewed: PT (SBA for sliding board transfer, however maxA for board placement; Mago for wheelchair mobility, very slow paced), OT (Mago- CGA for transfers; SBA for LB dressing) - Labs CBC & Chem 7: 08/04/16 04:29 08/04/16 04:29 Labs: Abnormal lab results 08/03/16 08/03/16 08/04/16 Range/Units 16:32 21:14 04:29 RBC 3.55 L (3.65-5.03) M/mm3 Hgb 9.7 L (10.1-14.3) gm/dl Hct 29.8 L (30.3-42.9) % MCH 27 L (28-32) pg RDW 16.1 H (13.2-15.2) % Potassium (3.6-5.0) mmol/L BUN (7-17) mg/dL Creatinine (0.7-1.2) mg/dL Glucose (65-100) mg/dL POC Glucose 161 H 131 H (70-105) 08/04/16 08/04/16 Range/Units 04:29 05:54 RBC (3.65-5.03) M/mm3 Hgb (10.1-14.3) gm/dl Hct (30.3-42.9) % MCH (28-32) pg RDW (13.2-15.2) % Potassium 2.9 L* (3.6-5.0) mmol/L BUN 6 L (7-17) mg/dL Creatinine 0.5 L (0.7-1.2) mg/dL Glucose 101 H (65-100) mg/dL POC Glucose 110 H (70-105)
[2016-08-05] MEDS: K-DUR PO SCH ×2 (03:00→09:26)
[2016-08-05] MEDS: ZOSYN/NS 4.5GM/100ML 100 ML IV SCH ×3 (06:54→21:41)
[2016-08-05] MEDS: NOVOLOG SUB-Q SCH ×4 (07:26→22:15)
[2016-08-05] MEDS: PROTONIX PO SCH (09:14)
[2016-08-05] MEDS: HALFPRIN EC PO SCH (09:15)
[2016-08-05] MEDS: TENORMIN PO SCH (09:15)
[2016-08-05] MEDS: THALITONE PO SCH (09:16)
[2016-08-05] MEDS: FEOSOL PO SCH (09:16)
[2016-08-05] MEDS: PLAVIX PO SCH (09:16)
--- NOTE | 2016-08-05 14:06 | Progress Note ---
Assessment and Plan 55 y.o. female with history of PVD, now s/p left AKA following complicated hospital course, right foot drop - left AKA- pain control; ABX until 08/15/16 - wound care- pt is with ongoing wound care needs per wound care nurse; noted to have progression of unstageable sacral ulcer to stage 3 at this time; initial pressure ulcer was present on admission - HTN/DM- remain stable - PVD- ASA, plavix, statin - hypokalemia- resolved after Kdur on yesterday, now with slight elevation; KDur discontinued; repeat level in AM - team conference held on today- pt is Independent with eating, however with poor po intake; s/u for grooming, bathing, and UB dressing; aMgo for LB dressing , toileting, wheelchair mobility; modA for bed mobility; maxA for toilet transfers; modA for sliding board transfers. Barriers- depression, motivation despite improved overall level of independence since admission, ongoing wound care needs. Following family meeting, pt and family have agreed to SNF placement as pt does not have the support required for a safe discharge at this time. Pt will be transferred when facility confirmed and bed is available. - Patient Problems (1) Above knee amputation of left lower extremity Current Visit: Yes Status: Acute (2) HTN (hypertension) Current Visit: Yes Status: Acute Qualifiers: Hypertension type: essential hypertension Qualified Code(s): I10 - Essential (primary) hypertension (3) Peripheral vascular disease of extremity Current Visit: No Status: Acute (4) Diabetes Current Visit: Yes Status: Acute Qualifiers: Diabetes mellitus type: type 2 Diabetes mellitus complication status: with hyperglycemia Diabetes mellitus terminal press operator insulin use: without mcc use Qualified Code(s): E11.65 - Type 2 diabetes mellitus with hyperglycemia (5) Right foot drop Current Visit: Yes Status: Acute (6) Sacral decubitus ulcer, stage III Current Visit: Yes Status: Acute Subjective Date of service: 08/05/16 Principal diagnosis: left AKA Interval history: Pt seen this AM; F/U IPR, s/p left AKA. Family meeting held this AM with multiple family members including children and siblings to discuss discharge planning; pt and family updated on medical status at that time; pt is without any acute events overnight Objective - Constitutional Vitals: Vital Signs - 12hr 08/05/16 08/05/16 08:00 09:15 Temperature 98.5 F Pulse Rate 96 H Pulse Rate [ 96 H Right Brachial] Respiratory 20 Rate Blood Pressure 138/62 Blood Pressure 138/62 [Left Arm] O2 Sat by Pulse 98 Oximetry General appearance: Present: no acute distress, other (sitting up in WC) - EENT Eyes: EOM intact ENT: hearing intact - Neck Neck: supple, normal ROM - Respiratory Respiratory effort: normal Extremity abnormal: other (wound vac remains in place) - Gastrointestinal General gastrointestinal: Present: non-distended - Musculoskeletal Musculoskeletal: generalized weakness - Neurologic Neurologic: CNII-XII intact - Psychiatric Psychiatric: cooperative, depressed (intermittently tearful) - Labs CBC & Chem 7: 08/04/16 04:29 08/05/16 06:55 Labs: Abnormal lab results 08/04/16 08/05/16 08/05/16 Range/Units 16:42 06:55 12:29 Potassium 5.3 H D (3.6-5.0) mmol/L POC Glucose 121 H 160 H (70-105)
[2016-08-05] MEDS: NORCO 10/325 PO PRN ×2 (18:35→23:45)
[2016-08-06] MEDS: ZOSYN/NS 4.5GM/100ML 100 ML IV SCH ×3 (07:00→22:37)
[2016-08-06] MEDS: NOVOLOG SUB-Q SCH ×4 (07:05→22:39)
[2016-08-06] MEDS: TENORMIN PO SCH (07:14)
[2016-08-06] MEDS: HALFPRIN EC PO SCH (07:14)
[2016-08-06] MEDS: PLAVIX PO SCH (07:14)
[2016-08-06] MEDS: THALITONE PO SCH (07:14)
[2016-08-06] MEDS: PROTONIX PO SCH (07:14)
[2016-08-06] MEDS: FEOSOL PO SCH (07:14)
[2016-08-06] MEDS: NORCO 10/325 PO PRN ×3 (07:24→22:38)
[2016-08-06] MEDS ORDERED: K-DUR PO SCH (08:00)
[2016-08-06] MEDS: K-DUR PO SCH (10:12)
[2016-08-06] MEDS: DURAGESIC TD SCH (11:03)
--- NOTE | 2016-08-06 13:42 | Progress Note ---
Assessment and Plan 55 y.o. female with history of PVD, now s/p left AKA following complicated hospital course, right foot drop - left AKA- pain control; ABX until 08/15/16 - wound care- ET nurse following for LE wound vac maintenance and for stage 3 sacral ulcer - HTN/DM- remain stable - PVD- ASA, plavix, statin - hypokalemia- maintenance dose adjusted to 40mEq Qday from 20 - dispo- pending bed available for SNF transfer - Patient Problems (1) Above knee amputation of left lower extremity Current Visit: Yes Status: Acute (2) HTN (hypertension) Current Visit: Yes Status: Acute Qualifiers: Hypertension type: essential hypertension Qualified Code(s): I10 - Essential (primary) hypertension (3) Peripheral vascular disease of extremity Current Visit: No Status: Acute (4) Diabetes Current Visit: Yes Status: Acute Qualifiers: Diabetes mellitus type: type 2 Diabetes mellitus complication status: with hyperglycemia Diabetes mellitus intermodal customer service insulin use: without correction use Qualified Code(s): E11.65 - Type 2 diabetes mellitus with hyperglycemia (5) Right foot drop Current Visit: Yes Status: Acute (6) Sacral decubitus ulcer, stage III Current Visit: Yes Status: Acute Subjective Date of service: 08/06/16 Principal diagnosis: left AKA Interval history: Pt seen this AM and again this afternoon in gym area; F/U IPR, s/p left AKA. Pt was without any acute events overnight; however, attempted to transfer from to bed in room this afternoon and slid down onto the floor. Pt is without any injuries or complaints of pain Objective - Constitutional Vitals: Vital Signs - 12hr 08/06/16 08/06/16 07:14 07:16 Temperature 98.0 F Pulse Rate 110 H Pulse Rate [ 110 H Right Brachial] Respiratory 16 Rate Blood Pressure 162/80 Blood Pressure 162/80 [Left Arm] O2 Sat by Pulse 100 Oximetry General appearance: Present: no acute distress - EENT Eyes: EOM intact ENT: hearing intact - Neck Neck: supple, normal ROM - Respiratory Respiratory effort: normal Extremity abnormal: other (wound vac undisturbed following fall; no tenderness along joint lines to deep palpation) - Gastrointestinal General gastrointestinal: Present: soft, non-tender - Integumentary Integumentary: dry - Musculoskeletal Musculoskeletal: other (continues with RLE foot drop) - Neurologic Neurologic: CNII-XII intact - Psychiatric Psychiatric: cooperative (flat affect) - Allied health notes Allied health notes reviewed: PT (Mago for WC mobility; SBA for sliding board transfer with maxA fro set-up of board; modA for sit to stand transfer) - Labs CBC & Chem 7: 08/04/16 04:29 08/06/16 04:12 Labs: Abnormal lab results 08/05/16 08/05/16 08/06/16 Range/Units 17:05 21:01 04:12 Potassium 3.5 L D (3.6-5.0) mmol/L POC Glucose 126 H 123 H (70-105) 08/06/16 Range/Units 11:20 Potassium (3.6-5.0) mmol/L POC Glucose 113 H (70-105)
[2016-08-07] MEDS: ZOSYN/NS 4.5GM/100ML 100 ML IV SCH ×3 (06:14→22:32)
[2016-08-07] MEDS: NOVOLOG SUB-Q SCH ×4 (08:00→22:37)
[2016-08-07] MEDS: PROTONIX PO SCH (09:01)
[2016-08-07] MEDS: HALFPRIN EC PO SCH (09:01)
[2016-08-07] MEDS: K-DUR PO SCH (09:01)
[2016-08-07] MEDS: PLAVIX PO SCH (09:01)
[2016-08-07] MEDS: FEOSOL PO SCH (09:01)
[2016-08-07] MEDS: THALITONE PO SCH (09:02)
[2016-08-07] MEDS: NORCO 10/325 PO PRN (11:28)
--- NOTE | 2016-08-07 14:11 | XRay Report ---
BILATERAL HIPS WITH PELVIS, 3 VIEWS: History: Pain. Findings: Bone mineralization is within normal limits. There is no evidence for fracture, dislocation or pelvic diastasis. No advanced joint pathology is detected. The soft tissues are unremarkable. Impression: Unremarkable exam.
--- NOTE | 2016-08-07 14:13 | Progress Note ---
Assessment and Plan 55 y.o. female with history of PVD, now s/p left AKA, right foot drop, stage 3 sacral ulcer - left AKA- pain control; ABX until 08/15/16 - wound care- Last wound vac change was 08/04; mesalt to stage 3 sacral ulcer - HTN/DM- stable - PVD- ASA, plavix, statin - hypokalemia- recheck labs in AM - intermittent hematuria- discussed case with urology on today; pt will continue to have intermittent hematuria while stents are present; no further w/ u needed - dispo- pending bed available for SNF transfer - Patient Problems (1) Above knee amputation of left lower extremity Current Visit: Yes Status: Acute (2) HTN (hypertension) Current Visit: Yes Status: Acute Qualifiers: Hypertension type: essential hypertension Qualified Code(s): I10 - Essential (primary) hypertension (3) Peripheral vascular disease of extremity Current Visit: No Status: Acute (4) Diabetes Current Visit: Yes Status: Acute Qualifiers: Diabetes mellitus type: type 2 Diabetes mellitus complication status: with hyperglycemia Diabetes mellitus half-way insulin use: without watermelon inspector use Qualified Code(s): E11.65 - Type 2 diabetes mellitus with hyperglycemia (5) Right foot drop Current Visit: Yes Status: Acute (6) Sacral decubitus ulcer, stage III Current Visit: Yes Status: Acute Subjective Date of service: 08/07/16 Principal diagnosis: left AKA Interval history: Pt seen this AM; F/U IPR, s/p left AKA. Pt with 2 falls on yesterday; attempted to transfer independently and reaching for the trash can in her room. Pt denied any injury at the time of falls. On this AM, pt denies any new pain ; however, was tender to palpation at the left hip on exam; will get Xray to rule out fracture. Discussed pt mood on this AM, as well, as pt is easily tearful; pt denied any feelings of depression from prolonged hospital course Objective - Constitutional Vitals: Vital Signs - 12hr 08/07/16 08/07/16 08:20 11:28 Temperature 98.2 F Pulse Rate [ 96 H Right Brachial] Respiratory 20 20 Rate Blood Pressure 105/55 [Right Arm] O2 Sat by Pulse 100 Oximetry General appearance: Present: no acute distress - EENT Eyes: EOM intact ENT: hearing intact - Neck Neck: supple, normal ROM - Respiratory Respiratory effort: normal Respiratory: bilateral: CTA - Cardiovascular Rhythm: regular Heart Sounds: Present: S1 & S2 Extremities: No edema (RLE) Extremity abnormal: other (wound vac remains in place at left residual limb into groin; ongoing RLE foot drop) - Gastrointestinal General gastrointestinal: Present: soft, non-tender - Neurologic Neurologic: CNII-XII intact - Psychiatric Psychiatric: cooperative (appears depressed; however, denies) - Allied health notes Allied health notes reviewed: PT (SBA for sliding board transfer), OT (Mago for transfers; modA for LB dressing) - Labs CBC & Chem 7: 08/04/16 04:29 08/06/16 04:12 Labs: Abnormal lab results 08/06/16 08/06/16 08/07/16 Range/Units 16:20 21:53 12:27 POC Glucose 158 H 107 H 129 H (70-105)
[2016-08-07] MEDS: TENORMIN PO SCH (18:00)
[2016-08-07] MEDS: TYLENOL PO PRN (22:31)
[2016-08-08 04:45] LABS: Hematocrit 28.4 % (30.3-42.9); Hemoglobin 9.2 gm/dl (10.1-14.3)
[2016-08-08 05:12] LABS: Anion Gap 17 mmol/L; Blood Urea Nitrogen 8 mg/dL (7-17); Calcium 8.9 mg/dL (8.4-10.2); Carbon Dioxide 25 mmol/L (22-30); Chloride 103.9 mmol/L (98-107); Glucose 101 mg/dL (65-100); Potassium 3.2 mmol/L (3.6-5.0); Sodium 143 mmol/L (137-145)
[2016-08-08] MEDS: ZOSYN/NS 4.5GM/100ML 100 ML IV SCH ×2 (06:30→13:24)
[2016-08-08] MEDS: NOVOLOG SUB-Q SCH ×2 (07:30→11:30)
[2016-08-08] MEDS: FEOSOL PO SCH (09:23)
[2016-08-08] MEDS: K-DUR PO SCH (09:24)
[2016-08-08] MEDS: THALITONE PO SCH (09:24)
[2016-08-08] MEDS: HALFPRIN EC PO SCH (09:25)
[2016-08-08] MEDS: PLAVIX PO SCH (09:25)
[2016-08-08] MEDS: PROTONIX PO SCH (09:26)
[2016-08-08] MEDS: TENORMIN PO SCH (09:26)
[2016-08-08 09:27] VITALS: BP 144/76
--- NOTE | 2016-08-08 14:15 | Discharge Summary ---
Providers - Providers Date of Admission: 07/24/16 17:48 Date of discharge: 08/08/16 Attending physician: ARACELIS CHAMORRO 07/24/16 19:13 Consult to Wound/ET Nurse [CONS] Routine Reason For Exam: wound vac mgmt Occupational Therapy Evaluate and Treat [CONS] Routine Comment: Reason For Exam: left AKA Physical Therapy Evaluation and Treat [CONS] Routine Comment: Reason For Exam: left AKA 07/30/16 13:43 Consult to Physician [CONS] Routine Consulting Provider: CARLA COURT INTERPRETER Reason For Exam: F/U s/p Left AKA Place consult to:: [facility] rn vascular Notified:: Nicole Phone number called:: [phone] Was contact made?: Yes If yes, spoke with:: Nicole Time called:: 15:46 Primary care physician: VERONICA MACHADO Hospitalization Reason for admission: left AKA Condition: Stable Hospital course: 55 y.o. female with known PVD, initially admitted to [facility] for scheduled thrombolysis to LLE. Unfortunately, pt was found to have an occlusion at the common femoral artery and SFA; required left femoral endarterectomy and fem-pop bypass. Following procedure, pt required ICU admission due to acute respiratory failure and subsequent intubation. Pt later developed left groin hematoma, acute blood loss anemia (pt received a total of 23 U pRBCs, 1 FFP, 1 platelets), hematuria and acute renal failure. Further complications included retroperitoneal bleed leading to bilateral hydronephrosis, s/p urethral stents; ischemic right common femoral artery occlusion requiring thromboendarterectomy ( 07/03/16) and subsequent right foot drop; extensive necrosis/infection at the left groin with thrombosed bypass graft and hematoma, which required debridement ; unfortunately, LLE was later deemed unsalvageable, s/p left AKA (07/15/2016). Pt required placement of wound vac to LLE extending over to right groin. Pt also seen by ID; recommended to complete 4 weeks of IV Zosyn (stop date 08/15/2016 ). Due to prolonged hospitalization and recent AKA, pt was noted to have severe functional decline, therefore, admitted to IRU for aggressive therapies and ongoing medical management. IPR course significant for ongoing wound care for stage 3 sacral ulcer and for wound vac management; treatment for hypokalemia ; 2 falls, no injury, xray negative; intermittent hematuria, which will continue per Urology due to urethral stents. Pt's H/H has improved since admission. Functionally, pt has shown progress since initial evaluation where she required totalA for bed mobility and transfers, modA for bathing, s/u for grooming and upper body dressing, totalA for lower body dressing and toileting. Pt has now progressed to s/u for bathing, Mago for lower body dressing and toileting, supervision for sliding board, however requires modA for board placement; maxA for toilet transfers; modA for bed mobility. Family meeting was held this week regarding patient's progress and home needs at discharge. Due to requirement of 24 hour care and supervision, family is unable to provide this; requested SNF placement. Pt is stable for transfer on today. >30 mins spent on discharge process; medication reconciliation; pt education regarding ongoing care Disposition: DC/TX SNF W [facility] CERT - Discharge Diagnoses (1) Above knee amputation of left lower extremity Status: Acute (2) HTN (hypertension) Status: Acute Qualifiers: Hypertension type: essential hypertension Qualified Code(s): I10 - Essential (primary) hypertension (3) Peripheral vascular disease of extremity Status: Acute (4) Diabetes Status: Acute Qualifiers: Diabetes mellitus type: type 2 Diabetes mellitus complication status: with hyperglycemia Diabetes mellitus [facility] insulin use: without [facility] use Qualified Code(s): E11.65 - Type 2 diabetes mellitus with hyperglycemia (5) Right foot drop Status: Acute (6) Sacral decubitus ulcer, stage III Status: Acute (7) Hypokalemia Status: Acute Core Measure Documentation - Palliative Care Palliative Care/ Comfort Measures: Not Applicable - Core Measures Any of the following diagnoses?: none Exam - Constitutional Vitals: Temp Pulse Resp BP Pulse Ox 98.5 F 102 H 18 144/76 100 08/08/16 08:00 08/08/16 09:26 08/08/16 08:00 08/08/16 09:26 08/08/16 08:00 General appearance: Present: no acute distress - EENT Eyes: Present: EOM intact ENT: hearing intact - Neck Neck: Present: supple, normal ROM - Respiratory Respiratory effort: normal - Extremities Extremity abnormal: other (wound vac remains in place) - Abdominal General gastrointestinal: Present: soft, non-tender, non-distended - Musculoskeletal Musculoskeletal: generalized weakness, other (continued right foot drop) - Psychiatric Psychiatric: cooperative, depressed - Neurologic Neurologic: CNII-XII intact Plan Activity: no driving until cleared by PCP, fall precautions Weight Bearing Status: Weight Bear as Tolerated Diet: low cholesterol, low salt, diabetic Wound: per wound nurse instructions (ongoing wound vac ) Special Instructions: physical therapy, occupational therapy Follow up with: VERONICA MACHADO MD [Primary Care Provider] - 7 Days RAOUL DUENAS MD [Staff Physician] - 7 Days Forms: Wound Discharge Prescriptions: fentaNYL [Duragesic] 25 mcg TD Q3D #10 patch HYDROcodone/APAP 10-325 [Teague 10-325 mg TAB] 1 each PO Q6H PRN #30 tablet PRN Reason: Pain, Moderate (4-6) Nywqckwzuwyf-Mfyk-Jaezxdzl,Iso [Zosyn 4.5 gm/100 ml Galaxy Bag] 4.5 gm IV Q8H 8 Days
[2016-08-08] MEDS ORDERED: K-DUR PO SCH (22:00)
== END 2016-08-08 17:15 | DRG 299 ==
LOC: 3B 17:48
PROVIDERS: ADMIT Family Medicine; ATTEND Family Medicine
DX: E11.51 Type 2 diabetes mellitus with diabetic peripheral angiopathy without gangrene (principal); J96.00 Acute respiratory failure, unspecified whether with hypoxia or hypercapnia; L89.153 Pressure ulcer of sacral region, stage 3; D62 Acute posthemorrhagic anemia; N17.9 Acute kidney failure, unspecified; N13.30 Unspecified hydronephrosis; T82.868A Thrombosis due to vascular prosthetic devices, implants and grafts, initial encounter; I77.1 Stricture of artery; G54.6 Phantom limb syndrome with pain; R31.9 Hematuria, unspecified; I10 Essential (primary) hypertension; E87.6 Hypokalemia; E11.65 Type 2 diabetes mellitus with hyperglycemia; M21.371 Foot drop, right foot; R15.9 Full incontinence of feces; Z96.0 Presence of urogenital implants; Z98.62 Peripheral vascular angioplasty status; Z89.612 Acquired absence of left leg above knee; Z79.82 Long term (current) use of aspirin; Z79.899 Other long term (current) drug therapy; Z79.84 Long term (current) use of oral hypoglycemic drugs; Z98.890 Other specified postprocedural states; Z79.02 Long term (current) use of antithrombotics/antiplatelets; Z83.3 Family history of diabetes mellitus; Z82.49 Family history of ischemic heart disease and other diseases of the circulatory system
CPT/HCPCS: 36415; 73521; 80048; 80053; 82962; 83036; 84132; 85014; 85018; 85025; 85027; A9270-GY; J2543; J2997

== ENCOUNTER 2016-10-20 14:21 | Emergency (ER) | payer MEDICARE ==
[2016-10-20 14:51] VITALS: BP 121/70
--- NOTE | 2016-10-20 15:46 | XRay Report ---
AP CHEST: HISTORY: chest pain AP view of the chest demonstrates a normal mediastinal and cardiac contour with clear lungs and normal bony and soft tissue structures. IMPRESSION: Unremarkable AP chest.
--- NOTE | 2016-10-20 16:43 | Emergency Department Report ---
ED General Adult HPI - General Chief complaint: Medical Clearance Stated complaint: WOUND CARE Time Seen by Provider: 10/20/16 16:29 Source: patient, family Mode of arrival: Wheelchair Limitations: No Limitations - History of Present Illness Initial comments: This is a 55-year-old female. She is previously unknown to me. The patient presents to the ER with requests for PICC line catheter removal. The patient was recently admitted to the hospital. She had a prolonged hospital stay. She denies headache, neck pain, chest pain, abdominal pain, shortness of breath. She denies COMPLAINTS AT THIS TIME. Improves with: none Worsens with: none Associated Symptoms: denies other symptoms - Related Data Home Medications Medication Instructions Recorded Confirmed Last Taken Aspirin EC [Aspirin Enteric Coated 81 mg PO QDAY 01/25/15 09/04/16 06/13/16 TAB] Atenolol/Chlorthalidone 1 each PO DAILY 01/25/15 09/04/16 06/13/16 [Atenolol-Chlorthalidone 50-25] Ergocalciferol [Vitamin D2] 1 cap PO QWEEK 01/25/15 09/04/16 06/09/16 AtorvaSTATin [Lipitor] 40 mg PO QHS 06/22/16 09/04/16 Unknown Ferrous Sulfate [Feosol 325 MG tab] 325 mg PO QDAY 06/22/16 09/04/16 Unknown Collagenase [Santyl] 250 gm TP DAILY 09/04/16 09/04/16 Unknown clonazePAM 0.5 mg PO DAILY 09/04/16 09/04/16 Unknown Previous Rx's Medication Instructions Recorded Last Taken Type Clopidogrel [Plavix] 75 mg PO QDAY tablet 07/01/16 Unknown Rx Acetaminophen [Acetaminophen TAB] 650 mg PO Q4H PRN #1 tablet 08/08/16 Unknown Rx Docusate Sodium [Colace CAP] 100 mg PO BID PRN #1 capsule 08/08/16 Unknown Rx HYDROcodone/APAP 10-325 [[place] 1 each PO Q6H PRN #30 tablet 08/08/16 Unknown Rx 10-325 mg TAB] Pantoprazole [Protonix TAB] 40 mg PO QDAY tablet 08/08/16 Unknown Rx fentaNYL [Duragesic] 25 mcg TD Q3D #10 patch 08/08/16 Unknown Rx Diltiazem [Cardizem] 60 mg PO Q8H #90 tablet 10/02/16 Unknown Rx Levothyroxine [Synthroid] 125 mcg PO DAILY@0600 #30 tablet 10/02/16 Unknown Rx Metoprolol [Lopressor TAB] 50 mg PO BID #60 tablet 10/02/16 Unknown Rx Vancomycin Vial 750 mg IV Q12HR 14 Days 10/02/16 Unknown Rx Venlafaxine [Effexor] 25 mg FEEDTUBE BID #60 tablet 10/02/16 Unknown Rx Bisacodyl [Dulcolax suppos] 10 mg [place] QDAY PRN #30 supp.rect 10/13/16 Unknown Rx Diltiazem [Cardizem] 60 mg PO Q6HR tablet 10/13/16 Unknown Rx Lipase/Protease/Amylase [Pancreaze 1 each FEEDTUBE PRN PRN #30 capsule 10/13/[address] 10,500 Unit] Simple Syrup 15 ml FEEDTUBE PRN PRN #30 10/13/16 Unknown Rx oral.liqd Simple Syrup 30 ml FEEDTUBE PRN PRN #30 10/13/16 Unknown Rx oral.liqd Sulfamethoxazole/Trimethoprim 1 each PO Q12HR #28 tablet 10/13/16 Unknown Rx [Bactrim DS TAB] Allergies Allergy/AdvReac Type Severity Reaction Status Date / Time No Known Allergies Allergy Verified 01/24/15 14:51 ED Review of Systems ROS: Stated complaint: WOUND CARE Other details as noted in HPI Comment: All other systems reviewed and negative Constitutional: denies: malaise Eyes: denies: vision change ENT: denies: epistaxis Respiratory: denies: cough Cardiovascular: denies: chest pain Gastrointestinal: denies: abdominal pain Genitourinary: denies: urgency, dysuria Musculoskeletal: denies: back pain Skin: denies: rash, lesions Neurological: denies: headache, weakness ED Past Medical Hx - Past Medical History Previous Medical History?: Yes Hx Hypertension: Yes Hx Congestive Heart Failure: No Hx Diabetes: Yes Hx Deep Vein Thrombosis: No Hx Renal Disease: Yes (acute, creatinine 0.5- Patient not on dialysis) Hx Asthma: No Hx COPD: No Hx HIV: No - Surgical History Past Surgical History?: Yes Hx Pacemaker: No Hx Internal Defibrillator: No Additional Surgical History: left BKA - Social History Smoking Status: Never Smoker Substance Use Type: None - Medications Home Medications: Home Medications Medication Instructions Recorded Confirmed Last Taken Type Aspirin EC [Aspirin Enteric Coated 81 mg PO QDAY 01/25/15 09/04/16 06/13/16 History TAB] Atenolol/Chlorthalidone 1 each PO DAILY 01/25/15 09/04/16 06/13/16 History [Atenolol-Chlorthalidone 50-25] Ergocalciferol [Vitamin D2] 1 cap PO QWEEK 01/25/15 09/04/16 06/09/16 History AtorvaSTATin [Lipitor] 40 mg PO QHS 06/22/16 09/04/16 Unknown History Ferrous Sulfate [Feosol 325 MG tab] 325 mg PO QDAY 06/22/16 09/04/16 Unknown History Clopidogrel [Plavix] 75 mg PO QDAY tablet 07/01/16 09/04/16 Unknown Rx Acetaminophen [Acetaminophen TAB] 650 mg PO Q4H PRN #1 tablet 08/08/16 09/04/16 Unknown Rx Docusate Sodium [Colace CAP] 100 mg PO BID PRN #1 capsule 08/08/16 09/04/16 Unknown Rx HYDROcodone/APAP 10-325 [[place] 1 each PO Q6H PRN #30 tablet 08/08/16 09/04/16 Unknown Rx 10-325 mg TAB] Pantoprazole [Protonix TAB] 40 mg PO QDAY tablet 08/08/16 09/04/16 Unknown Rx fentaNYL [Duragesic] 25 mcg TD Q3D #10 patch 08/08/16 09/04/16 Unknown Rx Collagenase [Santyl] 250 gm TP DAILY 09/04/16 09/04/16 Unknown History clonazePAM 0.5 mg PO DAILY 09/04/16 09/04/16 Unknown History Diltiazem [Cardizem] 60 mg PO Q8H #90 tablet 10/02/16 Unknown Rx Levothyroxine [Synthroid] 125 mcg PO DAILY@0600 #30 tablet 10/02/16 Unknown Rx Metoprolol [Lopressor TAB] 50 mg PO BID #60 tablet 10/02/16 Unknown Rx Vancomycin Vial 750 mg IV Q12HR 14 Days 10/02/16 Unknown Rx Venlafaxine [Effexor] 25 mg FEEDTUBE BID #60 tablet 10/02/16 Unknown Rx Bisacodyl [Dulcolax suppos] 10 mg [place] QDAY PRN #30 supp.rect 10/13/16 Unknown Rx Diltiazem [Cardizem] 60 mg PO Q6HR tablet 10/13/16 Unknown Rx Lipase/Protease/Amylase [Pancreaze 1 each FEEDTUBE PRN PRN #30 capsule 10/13/16 Unknown Rx 10,500 Unit] Simple Syrup 15 ml FEEDTUBE PRN PRN #30 10/13/16 Unknown Rx oral.liqd Simple Syrup 30 ml FEEDTUBE PRN PRN #30 10/13/16 Unknown Rx oral.liqd Sulfamethoxazole/Trimethoprim 1 each PO Q12HR #28 tablet 10/13/16 Unknown Rx [Bactrim DS TAB] ED Physical Exam - General Limitations: Physical Limitation General appearance: alert, in no apparent distress - Head Head exam: Present: atraumatic, normocephalic - Eye Eye exam: Present: normal appearance, EOMI. Absent: nystagmus - ENT ENT exam: Present: normal exam, normal orophraynx, mucous membranes moist, normal external ear exam - Neck Neck exam: Present: normal inspection, full ROM. Absent: tenderness, meningismus - Respiratory Respiratory exam: Present: normal lung sounds bilaterally. Absent: respiratory distress, wheezes, rales, rhonchi, stridor, decreased breath sounds - Cardiovascular Cardiovascular Exam: Present: normal rhythm, tachycardia, normal heart sounds. Absent: systolic murmur, diastolic murmur, rubs, gallop - GI/Abdominal GI/Abdominal exam: Present: soft, normal bowel sounds. Absent: distended, tenderness, guarding, rebound, rigid, pulsatile mass - Extremities Exam Extremities exam: Present: normal inspection, full ROM, normal capillary refill , other (patient is status post above-knee amputation in the left upper extremity.). Absent: pedal edema, joint swelling, calf tenderness - Back Exam Back exam: Present: normal inspection, full ROM. Absent: tenderness, CVA tenderness (R), CVA tenderness (L), muscle spasm, paraspinal tenderness, vertebral tenderness - Neurological Exam Neurological exam: Present: alert, oriented X3 - Psychiatric Psychiatric exam: Present: normal affect, normal mood - Skin Skin exam: Present: warm, dry, intact, normal color. Absent: rash ED Course Vital Signs 10/20/16 10/20/16 14:47 16:50 Temperature 98.1 F Pulse Rate 117 H 116 H Respiratory 18 22 Rate Blood Pressure 121/70 O2 Sat by Pulse 100 99 Oximetry - Reevaluation(s) Reevaluation #1: 10/20/16 16:40 Differential diagnosis: PICC line removal, pneumonia, bacteremia, urinary tract infection, pulmonary embolus, dehydration, anxiety Assessment and plan: 55-year-old female who presented for PICC line removal, the PICC line was removed by the PICC line nurse, she is found to be tachycardic with no obvious explanation. The patient appears to be somewhat anxious and angry, she waited a long time. It was explained to the patient that there were many critically ill patients in the department today, and that she was seen as expediently as possible. The patient is refusing all diagnostic workup and evaluation at this time. The patient is alert and oriented to name, location, month, she is able to identify her son by name, and she is able to discuss the risks, benefits, alternatives of leaving AGAINST MEDICAL ADVICE, including , disability, paralysis, loss of quality of life. Patient and her son were counseled extensively that she can return to the ER right away if when she changes her mind. The AMA conversation is witnessed by nurse Mr. Marco Reyes. ED Medical Decision Making - Lab Data Vital Signs 10/20/16 14:47 Temperature 98.1 F Pulse Rate 117 H Respiratory 18 Rate Blood Pressure 121/70 O2 Sat by Pulse 100 Oximetry - Radiology Data Radiology results: report reviewed, image reviewed X-ray of the chest is negative for acute disease Critical care attestation.: If time is entered above; I have spent that time in minutes in the direct care of this critically ill patient, excluding procedure time. ED Disposition Clinical Impression: PIC line (peripherally inserted central catheter) removal, Tachycardia Disposition: LEFT AGAINST MEDICAL ADVICE Is pt being admited?: No Does the pt Need Aspirin: No Condition: Undetermined Additional Instructions: As we discussed, you have left the hospital/emergency room AGAINST MEDICAL ADVICE. By leaving, you risked , disability, paralysis, permanent loss of quality of life. The ER is open 24 hours a day, 7 days a week. It never closes. Please return to the emergency room right away if and when you change your mind. If you decide not to return to the emergency room, please follow-up with the listed physician referrals as soon as possible. Referrals: PRIMARY CAREMD [Primary Care Provider] - 3-5 Days NOEMI ALEX MD [Staff Physician] - 3-5 Days [facility] [Provider Group] - 3-5 Days
== END 2016-10-20 17:00 | disposition left against medical advice (07) ==
LOC: ED 14:21
DX: Z45.2 Encounter for adjustment and management of vascular access device (principal); R00.0 Tachycardia, unspecified; I10 Essential (primary) hypertension; E11.9 Type 2 diabetes mellitus without complications
CPT/HCPCS: 71010; 99283